=== PATIENT | male | born 1965 | race Caucasian/White ===

== ENCOUNTER 2021-09-20 19:47 | Inpatient (IN) | payer MEDICARE, SELFPAY ==
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
[2021-09-20 19:55] VITALS: BP 140/90; BP 143/98; PULSE 110; PULSE 113; RESP 18; TEMP 37.4; O2SAT 96; O2SAT 98; BMI 28.3
--- NOTE | 2021-09-20 20:11 | PC.NURSE ---
Pt changed over with security present, belongings list on chart and belongings placed in locker #7
[2021-09-20 20:37] LABS: MANUAL DIFF FLAG NO
[2021-09-20 20:41] LABS: Basophils Absolute Auto 0.1 X10*3/uL (0.0-0.2); Basophils Percent Auto 0.8 % (0-2); Eosinophils Absolute Auto 0.3 X10*3/uL (0.0-0.4); Eosinophils Percent Auto 2.9 % (0-4); Imm Gran Abs Auto 0.02 X10*3/uL (0.00-0.03); Imm Gran Pct Auto 0.2 % (0.0-0.4); Lymphocytes Absolute Auto 2.3 X10*3/uL (1.2-4.9); Lymphocytes Percent Auto 22.8 % (20-40); Mean Corpuscular HGB Conc 34.9 g/dl (31.0-36.0); Mean Corpuscular Hemoglobin 31.8 pg (27.0-33.0); Mean Corpuscular Volume 91.3 fL (80.0-98.0); Mean Platelet Volume 10.4 fL (9.4-12.4); Monocytes Absolute Auto 0.7 X10*3/uL (0.1-1.2); Monocytes Percent Auto 6.7 % (2-11); Neutrophils Absolute Auto 6.7 x10*3/uL (2.0-8.3); Neutrophils Percent Auto 66.6 % (45-73); Platelet Count 317 X10*3/uL (160-400); Red Blood Count 4.71 X10*6/uL (4.60-5.80); Red Cell Distribution Width 13.4 % (11.0-16.0); White Blood Count 10.1 X10*3/uL (4.8-10.8)
[2021-09-20 21:03] LABS: COVID-19 Test Negative (Negative)
[2021-09-20 21:05] LABS: Ethanol < 10 mg/dL
[2021-09-20 21:08] LABS: Alanine Aminotransferase 35 U/L (0-40); Albumin Level 4.6 g/dL (3.5-5.0); Alkaline Phosphatase 47 U/L (39-117); Anion Gap 15 (12-20); Aspartate Amino Transferase 34 U/L (5-37); Bilirubin Total 0.4 mg/dL (0.0-1.0); Blood Urea Nitrogen 17 mg/dL (9-16); Calcium 9.4 mg/dL (8.4-10.2); Carbon Dioxide 25 mmol/L (22-29); Chloride 104 mmol/L (96-108); Creatinine Clr Calc Pharmacy 103.1; Estimated Glomerular Filt Rate > 60; Glucose Random 141 mg/dL (60-115); Potassium 4.7 mmol/L (3.3-5.1); Sodium 139 mmol/L (135-145); Total Protein 7.3 g/dL (6.5-8.0)
[2021-09-20 21:56] LABS: Amphetamine Screen Urine Not Detected (Not Detect); Barbiturates, Urine Not Detected (Not Detect); Benzodiazepines Screen Urine Not Detected (Not Detect); Cannabinoid Screen Urine Not Detected (Not Detect); Cocaine Screen Urine Not Detected (Not Detect); Fentanyl, urine Not Detected (Not Detect); Opiate Screen Urine Not Detected (Not Detect); Phencyclidine Screen Urine Not Detected (Not Detect)
[2021-09-20 23:19] VITALS: BP 149/91; PULSE 106; TEMP 36.9; O2SAT 96
[2021-09-21] MEDS: OLANZapine 10 MG TABLET 20 MG PO ×2 (00:45→21:58)
--- NOTE | 2021-09-21 06:51 | PC.NURSE ---
Patient remained awake most part of the shift, in and out of room multiple times for pen and paper, compliant with HS PO medication, requested Haldol in the morning but changed his mind later and refused Haldol 5 mg, patient was assessed by João, disposition section 12 inpatient bed search, behavior appropriate, speech pressured, VSS, will continue to monitor.
--- NOTE | 2021-09-22 | ECG_ITS ---
Test Reason : MEDICAL CLEARANCE Blood Pressure : / mmHG Vent. Rate : 073 BPM Atrial Rate : 073 BPM P-R Int : 156 ms QRS Dur : 096 ms QT Int : 410 ms P-R-T Axes : 063 004 030 degrees QTc Int : 451 ms Normal sinus rhythm Normal ECG When compared with ECG of 06-MAY-2009 06:26, Nonspecific T wave abnormality has replaced inverted T waves in Inferior leads Referred By: Elma Lopez Electronically Signed By:AKOSUA MOROCHO MD
[2021-09-22 06:20] VITALS: BP 141/90; PULSE 95; RESP 16; TEMP 37.2; O2SAT 97
--- NOTE | 2021-09-22 07:20 | PC.NURSE ---
Patient slept through the night, no distress observed/reported, behavior non concerning, medication compliant, disposition per care team is section 12 inpatient bed search, will continue to monitor.
--- NOTE | 2021-09-22 09:25 | PC.NURSE ---
Pt is awake, alert, no complaints at this time, some pacing at times, easily redirectable.
[2021-09-22 14:29] VITALS: BP 144/86; PULSE 93; RESP 20; TEMP 37.4; O2SAT 96
[2021-09-22] MEDS: OLANZapine 10 MG TABLET 20 MG PO (21:05)
[2021-09-23 00:05] VITALS: BP 129/83; PULSE 89; RESP 17; TEMP 37.1; O2SAT 96
--- NOTE | 2021-09-23 07:24 | PC.NURSE ---
Pt sitting up to desk eating breakfast at this time, NAD, resp reg and even, skin wd, calm and cooperative.
[2021-09-23 10:30] LABS: COVID-19 Test Negative (Negative); IDNOW Serial# 55D5AD1C
[2021-09-23 15:05] VITALS: BP 130/85; PULSE 93; RESP 15; TEMP 37.5; O2SAT 95
[2021-09-23 19:01] VITALS: BMI 28.3
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
[2021-09-23] MEDS: OLANZapine 10 MG TABLET 20 MG PO (22:00)
[2021-09-23 22:02] VITALS: BP 137/84; PULSE 94; TEMP 37; O2SAT 96
[2021-09-24 08:49] VITALS: BP 149/85; PULSE 96; RESP 18; TEMP 36.6; O2SAT 95
[2021-09-24 09:02] LABS: Estimated Average Glucose 88 mg/dL; Hemoglobin A1c % 4.7 %
[2021-09-24 09:18] LABS: Cholesterol 167 mg/dL; HDL Cholesterol 48 mg/dL; LDL Cholesterol Calculated 93 mg/dl; Magnesium 2.3 mg/dL (1.6-2.6); Triglycerides 130 mg/dL
[2021-09-24 09:39] LABS: Free T4 (Free Thyroxine) 1.23 ng/dL (0.71-1.85); Thyroid Stimulating Hormone 1.64 uIU/mL (0.32-4.0)
[2021-09-24 10:03] LABS: Folate 18.5 ng/mL (> or = 4.0); Vitamin B12 839 pg/mL (200-900)
[2021-09-24 21:14] VITALS: BP 131/77; PULSE 86; TEMP 36.7; O2SAT 95
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
[2021-09-24] MEDS: OLANZapine 10 MG TABLET 20 MG PO (22:04)
[2021-09-25 08:43] VITALS: BP 140/80; PULSE 97; RESP 18; TEMP 36.6; O2SAT 95
[2021-09-25 13:58] VITALS: BMI 27.7
[2021-09-25 20:14] VITALS: BP 186/98; PULSE 102; RESP 17; TEMP 36.7; O2SAT 99
[2021-09-26 08:28] VITALS: BP 160/84; PULSE 104; RESP 17; TEMP 36.8; O2SAT 95
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
[2021-09-26 20:29] VITALS: BP 176/89; PULSE 110; TEMP 36.6; O2SAT 97
[2021-09-27 09:16] VITALS: BP 147/77; PULSE 84; RESP 18; TEMP 36.7; O2SAT 95
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
[2021-09-27 21:01] VITALS: RESP 16
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
--- NOTE | 2021-09-28 16:30 | PC.NURSE ---
Patient requesting discharge. Submitted 3 day note.
--- NOTE | 2021-09-28 16:30 | PC.NURSE ---
Patient changed clothes following episodes of incontinence. Refused to shower not for 3 days . Refused to put clothes in the washer stating they were not his. You should know where they are you can see the thoughts .
[2021-09-29 10:35] VITALS: RESP 16
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
[2021-09-29 22:02] VITALS: RESP 16
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
[2021-10-01 20:37] VITALS: RESP 16
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
[2021-10-02 20:49] VITALS: RESP 14
--- NOTE | 2021-10-03 09:54 | PC.NURSE ---
Patient approached this RN in the hallway and stated if any man or woman tries to take my blood pressure again I have the right to murder to them . Patient was redirected by this RN.
--- NOTE | 2021-10-03 10:10 | PC.NURSE ---
Per data analyst report writer, Saroj, he presented to patients room and introduced himself to the patient. Patient proceeded to arise from bed and approach Saroj. Saroj reported that patient came to him within 2 feet face to face. Patient then began yelling Get the fuck out of my room and if you don't I am going to kill you. I don't want my fucking room cleaned. You can leave . Saroj exited patients room at this time and alerted staff to the confrontation.
[2021-10-03 10:15] VITALS: RESP 17
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
[2021-10-04 17:08] VITALS: RESP 24
--- NOTE | 2021-10-04 18:02 | PC.NURSE ---
At dinner, patient brought lunch from his room and ate it in the dining room. Continues to decline to speak w/ staff.
[2021-10-05 08:45] VITALS: BP 158/82; PULSE 133; RESP 24; TEMP 35.9; O2SAT 97
[2021-10-05] MEDS: OLANZapine 10 MG TABLET 20 MG PO (08:53)
--- NOTE | 2021-10-05 09:26 | PC.NURSE ---
Late entry: 0845: Patient aloowed vital signs to be obtained. Evening medications may be given per Dr. Cheung- patient accepted medications.
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
[2021-10-05 11:32] VITALS: PULSE 122; RESP 20; O2SAT 97
[2021-10-05] MEDS: OLANZapine 5 MG TABLET PO (11:50)
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
[2021-10-06 10:25] VITALS: RESP 22
[2021-10-06] MEDS: OLANZapine 10 MG TABLET 20 MG PO (10:48)
[2021-10-06 10:56] VITALS: BP 156/89; PULSE 109; RESP 20; TEMP 36.6; O2SAT 99
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
--- NOTE | 2021-10-06 13:06 | PC.NURSE ---
Patient awake in the AM, allowed vital signs to be taken, responding to questions appropriately, able to state location, year, oriented to person, pleasant- appears to have some thought blocking still. Patient given HS Zyprexa (reviewed w/ and given permission to give early).
[2021-10-06 21:21] VITALS: BP 129/75; PULSE 114; TEMP 36.8; O2SAT 96
[2021-10-07 06:00] VITALS: BP 133/77; PULSE 83; RESP 20; TEMP 36.6; O2SAT 98
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
[2021-10-07 18:00] VITALS: BP 130/82; PULSE 91; RESP 20; TEMP 36.6; O2SAT 96
[2021-10-07] MEDS: OLANZapine ODT 10 MG TAB.RAPDIS 20 MG TRANSLINGU (18:22)
[2021-10-08] MEDS: OLANZapine ODT 10 MG TAB.RAPDIS 20 MG TRANSLINGU (08:53)
[2021-10-08 09:06] VITALS: BP 129/76; PULSE 82; RESP 18; TEMP 36.6; O2SAT 97
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
[2021-10-09 06:00] VITALS: BP 121/87; PULSE 110; RESP 16; TEMP 36.8; O2SAT 99
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
[2021-10-09 20:40] VITALS: BP 130/60; PULSE 80; RESP 18; TEMP 36.6; O2SAT 96
[2021-10-09] MEDS: OLANZapine ODT 10 MG TAB.RAPDIS 20 MG TRANSLINGU (20:45)
[2021-10-10 09:05] VITALS: BP 133/77; PULSE 72; RESP 20; TEMP 36.4; O2SAT 98
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
[2021-10-10] MEDS: OLANZapine ODT 10 MG TAB.RAPDIS 20 MG TRANSLINGU (20:43)
[2021-10-10 20:44] VITALS: RESP 14
[2021-10-11 08:30] VITALS: BP 126/68; PULSE 68; RESP 18; TEMP 36.6; O2SAT 97
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
[2021-10-11 20:47] VITALS: BP 120/73; PULSE 87; TEMP 37.1; O2SAT 95
[2021-10-11] MEDS: OLANZapine ODT 10 MG TAB.RAPDIS 20 MG TRANSLINGU (20:48)
[2021-10-11] MEDS: OLANZapine ODT 10 MG TAB.RAPDIS 5 MG TRANSLINGU (23:15)
[2021-10-11] MEDS: traZODone HCL 50 MG TABLET PO (23:15)
[2021-10-12 08:56] VITALS: BP 114/76; PULSE 97; RESP 18; TEMP 36.4; O2SAT 98
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
[2021-10-12 18:00] VITALS: BP 134/80; PULSE 76; RESP 18; TEMP 36.6; O2SAT 98
[2021-10-12] MEDS: OLANZapine ODT 10 MG TAB.RAPDIS 20 MG TRANSLINGU (22:03)
[2021-10-13 08:49] VITALS: RESP 18
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
[2021-10-13] MEDS: OLANZapine ODT 10 MG TAB.RAPDIS 5 MG TRANSLINGU (16:14)
--- NOTE | 2021-10-13 16:17 | PC.NURSE ---
Patient increasingly intrusive, taking items from other patients, dropping pants in public. Other patients increasingly upset at patient's behavior. Patient placed on constant observation, Dr. Fernandez notified- patient given PRN for agitation.
[2021-10-13 18:00] VITALS: BP 122/78; PULSE 78; RESP 18; TEMP 36.7; O2SAT 97
[2021-10-13] MEDS: traZODone HCL 50 MG TABLET PO (22:01)
[2021-10-13] MEDS: OLANZapine ODT 10 MG TAB.RAPDIS 20 MG TRANSLINGU (22:01)
--- NOTE | 2021-10-14 08:26 | ECG_ITS ---
Test Reason : TACHY Blood Pressure : / mmHG Vent. Rate : 077 BPM Atrial Rate : 077 BPM P-R Int : 144 ms QRS Dur : 098 ms QT Int : 358 ms P-R-T Axes : 057 013 037 degrees QTc Int : 405 ms Normal sinus rhythm Normal EKG When compared with ECG of 22-SEP-2021 15:38, No significant change was found Referred By: Eliu Fernandez Electronically Signed By:ALBAN HEBERT
[2021-10-14 09:16] VITALS: BP 104/75; PULSE 145; RESP 20; TEMP 36.1; O2SAT 99
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
[2021-10-14] MEDS: Lithium Carbonate ER 450 MG TABLET.ER PO (14:25)
[2021-10-14 20:50] VITALS: BP 122/75; PULSE 89; RESP 18; TEMP 36.7; O2SAT 97
[2021-10-14] MEDS: OLANZapine ODT 10 MG TAB.RAPDIS 20 MG TRANSLINGU (21:04)
[2021-10-14] MEDS: Lithium Carbonate ER 300 MG TABLET.ER 600 MG PO (21:04)
[2021-10-15] MEDS: Lithium Carbonate ER 300 MG TABLET.ER 600 MG PO ×2 (08:42→21:14)
[2021-10-15 08:59] VITALS: BP 125/84; PULSE 88; RESP 18; TEMP 36.6; O2SAT 97
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
[2021-10-15] MEDS: OLANZapine ODT 10 MG TAB.RAPDIS 20 MG TRANSLINGU (21:14)
[2021-10-15 21:17] VITALS: BP 133/77; PULSE 84; TEMP 36.6; O2SAT 97
[2021-10-16 06:00] VITALS: BP 112/75; PULSE 87; RESP 20; TEMP 36.4; O2SAT 97
[2021-10-16] MEDS: Lithium Carbonate ER 300 MG TABLET.ER 600 MG PO ×2 (08:52→20:51)
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
[2021-10-16 14:52] VITALS: BMI 26.6
[2021-10-16 20:46] VITALS: BP 121/78; PULSE 84; TEMP 36.9; O2SAT 97
[2021-10-16] MEDS: OLANZapine ODT 10 MG TAB.RAPDIS 30 MG TRANSLINGU (20:51)
[2021-10-16] MEDS: hydrOXYzine HCL 25 MG TABLET PO (22:06)
[2021-10-16] MEDS: traZODone HCL 50 MG TABLET PO (22:06)
[2021-10-17 08:21] VITALS: BP 129/75; PULSE 83; RESP 18; TEMP 36.7; O2SAT 98
[2021-10-17] MEDS: Lithium Carbonate ER 300 MG TABLET.ER 600 MG PO ×2 (08:59→21:41)
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
[2021-10-17 20:30] VITALS: BP 132/77; PULSE 87; RESP 18; TEMP 36.8; O2SAT 96
[2021-10-17] MEDS: traZODone HCL 50 MG TABLET PO (21:41)
[2021-10-17] MEDS: OLANZapine ODT 10 MG TAB.RAPDIS 5 MG TRANSLINGU (21:42)
[2021-10-17] MEDS: OLANZapine ODT 10 MG TAB.RAPDIS 30 MG TRANSLINGU (21:42)
[2021-10-18 08:30] VITALS: BP 125/65; PULSE 87; RESP 18; TEMP 36.7; O2SAT 96
[2021-10-18] MEDS: Lithium Carbonate ER 300 MG TABLET.ER 600 MG PO ×2 (09:08→21:49)
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
[2021-10-18 20:20] VITALS: BP 130/86; PULSE 75; RESP 18; TEMP 36.6; O2SAT 98
[2021-10-18] MEDS: OLANZapine ODT 10 MG TAB.RAPDIS 30 MG TRANSLINGU (21:47)
[2021-10-18] MEDS: OLANZapine ODT 10 MG TAB.RAPDIS 5 MG TRANSLINGU (21:47)
[2021-10-18] MEDS: traZODone HCL 50 MG TABLET PO (21:48)
[2021-10-19] MEDS: Lithium Carbonate ER 300 MG TABLET.ER 600 MG PO ×2 (10:18→21:39)
[2021-10-19] MEDS: OLANZapine ODT 10 MG TAB.RAPDIS 5 MG TRANSLINGU (10:19)
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
[2021-10-19 18:00] VITALS: BP 122/68; PULSE 78; RESP 18; TEMP 36.6; O2SAT 96
[2021-10-19] MEDS: traZODone HCL 50 MG TABLET PO (21:39)
[2021-10-19] MEDS: OLANZapine ODT 10 MG TAB.RAPDIS 30 MG TRANSLINGU (21:39)
[2021-10-20 07:53] VITALS: BP 120/76; PULSE 83; RESP 18; TEMP 36.6; O2SAT 96
[2021-10-20] MEDS: Lithium Carbonate ER 300 MG TABLET.ER 600 MG PO ×2 (08:10→21:13)
[2021-10-20 08:49] LABS: MANUAL DIFF FLAG NO
[2021-10-20 09:16] LABS: Lithium 0.87 mmol/L (0.60-1.20)
[2021-10-20 09:21] LABS: Basophils Absolute Auto 0.1 X10*3/uL (0.0-0.2); Basophils Percent Auto 1.1 % (0-2); Eosinophils Absolute Auto 0.6 X10*3/uL (0.0-0.4); Eosinophils Percent Auto 8.1 % (0-4); Hematocrit 44.6 % (42.0-52.0); Hemoglobin 15.5 g/dl (14.0-18.0); Imm Gran Abs Auto 0.02 X10*3/uL (0.00-0.03); Imm Gran Pct Auto 0.3 % (0.0-0.4); Lymphocytes Absolute Auto 2.1 X10*3/uL (1.2-4.9); Lymphocytes Percent Auto 27.9 % (20-40); Mean Corpuscular HGB Conc 34.8 g/dl (31.0-36.0); Mean Corpuscular Hemoglobin 31.4 pg (27.0-33.0); Mean Corpuscular Volume 90.3 fL (80.0-98.0); Mean Platelet Volume 10.9 fL (9.4-12.4); Monocytes Absolute Auto 0.6 X10*3/uL (0.1-1.2); Monocytes Percent Auto 7.4 % (2-11); Neutrophils Absolute Auto 4.2 x10*3/uL (2.0-8.3); Neutrophils Percent Auto 55.2 % (45-73); Platelet Count 302 X10*3/uL (160-400); Red Blood Count 4.94 X10*6/uL (4.60-5.80); White Blood Count 7.5 X10*3/uL (4.8-10.8)
[2021-10-20 09:27] LABS: Anion Gap 13 (12-20); Blood Urea Nitrogen 11 mg/dL (9-16); Calcium 9.8 mg/dL (8.4-10.2); Carbon Dioxide 23 mmol/L (22-29); Chloride 105 mmol/L (96-108); Creatinine Clr Calc Pharmacy 103.4; Estimated Glomerular Filt Rate > 60; Glucose Random 84 mg/dL (60-115); Potassium 3.9 mmol/L (3.3-5.1); Sodium 137 mmol/L (135-145)
[2021-10-20 09:48] LABS: TSH reflex Free T4 1.13 uIU/mL (0.32-4.0)
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
[2021-10-20 18:00] VITALS: BP 138/86; PULSE 82; RESP 18; TEMP 36.6; O2SAT 96
[2021-10-20] MEDS: OLANZapine ODT 10 MG TAB.RAPDIS 30 MG TRANSLINGU (21:14)
[2021-10-21] MEDS: Lithium Carbonate ER 300 MG TABLET.ER 600 MG PO ×2 (10:03→20:58)
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
[2021-10-21 20:55] VITALS: BP 134/88; PULSE 70; RESP 16; TEMP 36.6; O2SAT 98
[2021-10-21] MEDS: OLANZapine ODT 10 MG TAB.RAPDIS 30 MG TRANSLINGU (20:58)
[2021-10-21] MEDS: OLANZapine ODT 10 MG TAB.RAPDIS 5 MG TRANSLINGU (20:58)
[2021-10-21] MEDS: traZODone HCL 50 MG TABLET PO (20:58)
[2021-10-22 08:15] VITALS: BP 127/85; PULSE 76; RESP 16; TEMP 36.7; O2SAT 95
[2021-10-22] MEDS: Lithium Carbonate ER 300 MG TABLET.ER 600 MG PO ×2 (09:06→20:43)
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
[2021-10-22 20:38] VITALS: BP 120/72; PULSE 81; RESP 16; TEMP 36.8; O2SAT 98
[2021-10-22] MEDS: traZODone HCL 50 MG TABLET PO (20:43)
[2021-10-22] MEDS: OLANZapine ODT 10 MG TAB.RAPDIS 30 MG TRANSLINGU (20:43)
[2021-10-22] MEDS: OLANZapine ODT 10 MG TAB.RAPDIS 5 MG TRANSLINGU (20:43)
[2021-10-23 06:00] VITALS: BP 135/73; PULSE 76; RESP 16; TEMP 36.7; O2SAT 96
[2021-10-23 07:00] VITALS: BMI 25.9
[2021-10-23] MEDS: Lithium Carbonate ER 300 MG TABLET.ER 600 MG PO ×2 (08:23→22:05)
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
[2021-10-23] MEDS: OLANZapine ODT 10 MG TAB.RAPDIS 30 MG TRANSLINGU (22:04)
[2021-10-23] MEDS: OLANZapine ODT 10 MG TAB.RAPDIS 5 MG TRANSLINGU (22:04)
[2021-10-23] MEDS: traZODone HCL 50 MG TABLET PO (22:05)
[2021-10-23 22:07] VITALS: BP 126/82; PULSE 81; RESP 18; TEMP 36.7; O2SAT 97
[2021-10-24 08:22] VITALS: BP 137/78; PULSE 72; RESP 17; TEMP 36.7; O2SAT 97
[2021-10-24] MEDS: Lithium Carbonate ER 300 MG TABLET.ER 600 MG PO ×2 (08:40→22:07)
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
[2021-10-24 20:10] VITALS: BP 118/72; PULSE 80; RESP 16; TEMP 36.9; O2SAT 96
[2021-10-24] MEDS: OLANZapine ODT 10 MG TAB.RAPDIS 30 MG TRANSLINGU (22:07)
[2021-10-24] MEDS: traZODone HCL 50 MG TABLET PO (22:08)
[2021-10-24] MEDS: OLANZapine ODT 10 MG TAB.RAPDIS 5 MG TRANSLINGU (22:10)
[2021-10-25 08:00] VITALS: BP 124/73; PULSE 82; RESP 18; TEMP 36.6; O2SAT 98
[2021-10-25] MEDS: Lithium Carbonate ER 300 MG TABLET.ER 600 MG PO ×2 (08:41→22:07)
[2021-10-25 18:00] VITALS: BP 132/70; PULSE 63; RESP 14; TEMP 36.6
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
[2021-10-25] MEDS: OLANZapine ODT 10 MG TAB.RAPDIS 30 MG TRANSLINGU (22:07)
[2021-10-26] MEDS: Lithium Carbonate ER 300 MG TABLET.ER 600 MG PO ×2 (08:54→22:05)
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
[2021-10-26 20:33] VITALS: BP 137/78; PULSE 74; RESP 20; TEMP 36.6; O2SAT 96
[2021-10-26] MEDS: OLANZapine ODT 10 MG TAB.RAPDIS 30 MG TRANSLINGU (22:05)
[2021-10-27 08:40] VITALS: BP 142/67; PULSE 76; RESP 18; TEMP 37.2; O2SAT 96
[2021-10-27] MEDS: Lithium Carbonate ER 300 MG TABLET.ER 600 MG PO ×2 (08:41→21:53)
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
[2021-10-27 21:49] VITALS: BP 117/73; PULSE 91; RESP 18; TEMP 36.4; O2SAT 98
[2021-10-27] MEDS: OLANZapine ODT 10 MG TAB.RAPDIS 30 MG TRANSLINGU (21:53)
[2021-10-28 08:40] VITALS: BP 113/69; PULSE 75; RESP 17; TEMP 36.6; O2SAT 98
[2021-10-28] MEDS: Lithium Carbonate ER 300 MG TABLET.ER 600 MG PO ×2 (08:41→22:06)
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
[2021-10-28 21:00] VITALS: BP 119/67; PULSE 64; RESP 18; TEMP 36.1; O2SAT 96
[2021-10-28] MEDS: OLANZapine ODT 10 MG TAB.RAPDIS 30 MG TRANSLINGU (22:06)
[2021-10-28] MEDS: OLANZapine ODT 10 MG TAB.RAPDIS 5 MG TRANSLINGU (22:06)
[2021-10-29] MEDS: Lithium Carbonate ER 300 MG TABLET.ER 600 MG PO ×2 (08:05→22:00)
[2021-10-29 08:06] VITALS: BP 113/71; PULSE 66; RESP 20; TEMP 36.6; O2SAT 99
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
[2021-10-29 21:44] VITALS: BP 130/75; PULSE 77; TEMP 36.7; O2SAT 98
[2021-10-29] MEDS: OLANZapine ODT 10 MG TAB.RAPDIS 30 MG TRANSLINGU (22:00)
[2021-10-30 08:50] VITALS: BP 114/68; PULSE 76; RESP 18; TEMP 36.7; O2SAT 97
[2021-10-30] MEDS: Lithium Carbonate ER 300 MG TABLET.ER 600 MG PO ×2 (08:54→22:05)
[2021-10-30 10:00] VITALS: BMI 30.9
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
[2021-10-30 18:00] VITALS: BP 123/75; PULSE 76; RESP 18; TEMP 36.7; O2SAT 96
[2021-10-30] MEDS: OLANZapine ODT 10 MG TAB.RAPDIS 30 MG TRANSLINGU (22:04)
[2021-10-31 06:00] VITALS: BP 113/73; PULSE 80; TEMP 36.4; O2SAT 98
[2021-10-31] MEDS: Lithium Carbonate ER 300 MG TABLET.ER 600 MG PO ×2 (09:12→21:59)
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
[2021-10-31] MEDS: OLANZapine ODT 10 MG TAB.RAPDIS 30 MG TRANSLINGU (21:59)
[2021-10-31] MEDS: OLANZapine ODT 10 MG TAB.RAPDIS 5 MG TRANSLINGU (21:59)
[2021-10-31 22:05] VITALS: BP 125/78; PULSE 80; RESP 18; TEMP 36.6; O2SAT 98
[2021-11-01] MEDS: Lithium Carbonate ER 300 MG TABLET.ER 600 MG PO ×2 (08:11→21:56)
[2021-11-01 08:26] VITALS: BP 119/77; PULSE 81; RESP 18; TEMP 36.6; O2SAT 96
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
[2021-11-01 19:53] VITALS: BP 113/75; PULSE 77; RESP 18; TEMP 36.7; O2SAT 97
[2021-11-01] MEDS: OLANZapine ODT 10 MG TAB.RAPDIS 5 MG TRANSLINGU (21:55)
[2021-11-01] MEDS: OLANZapine ODT 10 MG TAB.RAPDIS 30 MG TRANSLINGU (21:56)
[2021-11-02] MEDS: Lithium Carbonate ER 300 MG TABLET.ER 600 MG PO ×2 (09:04→22:17)
[2021-11-02 09:21] VITALS: BP 114/73; PULSE 76; RESP 18; TEMP 36.3; O2SAT 97
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
[2021-11-02 18:00] VITALS: BP 108/68; PULSE 78; RESP 18; TEMP 36.6; O2SAT 96
[2021-11-02] MEDS: OLANZapine ODT 10 MG TAB.RAPDIS 30 MG TRANSLINGU (22:17)
[2021-11-03 08:00] VITALS: BP 111/67; PULSE 77; RESP 16; TEMP 36.6; O2SAT 98
[2021-11-03] MEDS: Lithium Carbonate ER 300 MG TABLET.ER 600 MG PO ×2 (08:16→22:07)
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
[2021-11-03 20:05] VITALS: BP 119/71; PULSE 73; RESP 18; TEMP 36.8; O2SAT 96
[2021-11-03] MEDS: OLANZapine ODT 10 MG TAB.RAPDIS 30 MG TRANSLINGU (22:07)
[2021-11-04] MEDS: Lithium Carbonate ER 300 MG TABLET.ER 600 MG PO ×2 (08:38→22:07)
[2021-11-04 08:43] VITALS: BP 120/77; PULSE 68; TEMP 36.4; O2SAT 98
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
[2021-11-04 22:00] VITALS: BP 123/76; PULSE 80; RESP 16; TEMP 36.7; O2SAT 97
[2021-11-04] MEDS: OLANZapine ODT 10 MG TAB.RAPDIS 30 MG TRANSLINGU (22:08)
[2021-11-05] MEDS: Lithium Carbonate ER 300 MG TABLET.ER 600 MG PO ×2 (08:59→21:56)
[2021-11-05 09:02] VITALS: BP 105/66; PULSE 74; RESP 17; TEMP 36.6; O2SAT 97
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
[2021-11-05 20:40] VITALS: BP 123/70; PULSE 83; RESP 16; TEMP 36.8; O2SAT 96
[2021-11-05] MEDS: OLANZapine ODT 10 MG TAB.RAPDIS 30 MG TRANSLINGU (21:56)
[2021-11-06 08:43] VITALS: BP 116/69; PULSE 75; RESP 17; TEMP 36.6; O2SAT 97
[2021-11-06 08:49] LABS: MANUAL DIFF FLAG NO
[2021-11-06 08:52] LABS: Basophils Absolute Auto 0.1 X10*3/uL (0.0-0.2); Basophils Percent Auto 1.1 % (0-2); Eosinophils Absolute Auto 0.7 X10*3/uL (0.0-0.4); Eosinophils Percent Auto 10.8 % (0-4); Hematocrit 39.1 % (42.0-52.0); Hemoglobin 13.6 g/dl (14.0-18.0); Imm Gran Abs Auto 0.01 X10*3/uL (0.00-0.03); Imm Gran Pct Auto 0.2 % (0.0-0.4); Lymphocytes Absolute Auto 1.7 X10*3/uL (1.2-4.9); Lymphocytes Percent Auto 26.4 % (20-40); Mean Corpuscular HGB Conc 34.8 g/dl (31.0-36.0); Mean Corpuscular Hemoglobin 31.4 pg (27.0-33.0); Mean Corpuscular Volume 90.3 fL (80.0-98.0); Mean Platelet Volume 10.3 fL (9.4-12.4); Monocytes Absolute Auto 0.6 X10*3/uL (0.1-1.2); Monocytes Percent Auto 9.2 % (2-11); Neutrophils Absolute Auto 3.3 x10*3/uL (2.0-8.3); Neutrophils Percent Auto 52.3 % (45-73); Platelet Count 314 X10*3/uL (160-400); Red Blood Count 4.33 X10*6/uL (4.60-5.80); Red Cell Distribution Width 13.4 % (11.0-16.0); White Blood Count 6.3 X10*3/uL (4.8-10.8)
[2021-11-06 09:09] LABS: Lithium 0.83 mmol/L (0.60-1.20)
[2021-11-06] MEDS: Lithium Carbonate ER 300 MG TABLET.ER 600 MG PO ×2 (09:13→21:54)
[2021-11-06 09:18] LABS: Anion Gap 8 (12-20); Blood Urea Nitrogen 15 mg/dL (9-16); Carbon Dioxide 26 mmol/L (22-29); Chloride 107 mmol/L (96-108); Creatinine Clr Calc Pharmacy 127.3; Estimated Glomerular Filt Rate > 60; Glucose Random 86 mg/dL (60-115); Potassium 4.1 mmol/L (3.3-5.1); Sodium 137 mmol/L (135-145)
[2021-11-06 11:51] VITALS: BMI 26.3
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
[2021-11-06 20:59] VITALS: BP 133/78; PULSE 86; RESP 17; TEMP 36.6; O2SAT 98
[2021-11-06] MEDS: OLANZapine ODT 10 MG TAB.RAPDIS 30 MG TRANSLINGU (21:54)
[2021-11-07] MEDS: Lithium Carbonate ER 300 MG TABLET.ER 600 MG PO ×2 (09:08→21:55)
[2021-11-07 09:29] VITALS: BP 104/64; PULSE 67; RESP 18; TEMP 36.1; O2SAT 96
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
[2021-11-07 20:25] VITALS: BP 113/58; PULSE 70; RESP 18; TEMP 37.3; O2SAT 96
[2021-11-07] MEDS: OLANZapine ODT 10 MG TAB.RAPDIS 30 MG TRANSLINGU (21:55)
[2021-11-08] MEDS: Lithium Carbonate ER 300 MG TABLET.ER 600 MG PO ×2 (08:50→22:03)
[2021-11-08 09:01] VITALS: BP 127/83; PULSE 76; RESP 18; TEMP 36.4; O2SAT 98
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
[2021-11-08 20:00] VITALS: BP 122/77; PULSE 74; RESP 18; TEMP 36.7; O2SAT 94
[2021-11-08] MEDS: OLANZapine ODT 10 MG TAB.RAPDIS 30 MG TRANSLINGU (22:03)
[2021-11-09 06:00] VITALS: BP 133/75; PULSE 82; RESP 18; TEMP 36.6; O2SAT 97
[2021-11-09] MEDS: Lithium Carbonate ER 300 MG TABLET.ER 600 MG PO ×2 (09:37→21:53)
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
[2021-11-09 20:23] VITALS: BP 125/75; PULSE 77; RESP 18; TEMP 36.7; O2SAT 95
[2021-11-09] MEDS: OLANZapine ODT 10 MG TAB.RAPDIS 30 MG TRANSLINGU (21:53)
[2021-11-10] MEDS: Lithium Carbonate ER 300 MG TABLET.ER 600 MG PO ×2 (08:33→21:52)
[2021-11-10 08:50] VITALS: BP 119/78; PULSE 74; RESP 20; TEMP 36.7; O2SAT 97
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
[2021-11-10 18:00] VITALS: BP 133/71; PULSE 95; RESP 18; TEMP 37.1; O2SAT 96
[2021-11-10] MEDS: OLANZapine ODT 10 MG TAB.RAPDIS 30 MG TRANSLINGU (21:52)
[2021-11-11] MEDS: Lithium Carbonate ER 300 MG TABLET.ER 600 MG PO ×2 (08:39→22:00)
[2021-11-11 08:49] VITALS: BP 147/82; PULSE 82; RESP 20; TEMP 36.6; O2SAT 99
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
[2021-11-11 19:55] VITALS: BP 115/91; PULSE 83; RESP 18; TEMP 36.8; O2SAT 96
[2021-11-11] MEDS: OLANZapine ODT 10 MG TAB.RAPDIS 30 MG TRANSLINGU (22:01)
[2021-11-12 08:17] VITALS: BP 112/74; PULSE 73; RESP 17; TEMP 37.1; O2SAT 98
[2021-11-12] MEDS: Lithium Carbonate ER 300 MG TABLET.ER 600 MG PO ×2 (08:18→22:04)
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
[2021-11-12 22:00] VITALS: BP 122/74; PULSE 66; TEMP 37.1; O2SAT 97
[2021-11-12] MEDS: OLANZapine ODT 10 MG TAB.RAPDIS 30 MG TRANSLINGU (22:04)
[2021-11-13 08:09] VITALS: BP 118/68; PULSE 76; RESP 16; TEMP 36.8; O2SAT 97
[2021-11-13] MEDS: Lithium Carbonate ER 300 MG TABLET.ER 600 MG PO ×2 (08:25→22:02)
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
[2021-11-13 21:42] VITALS: BP 122/70; PULSE 70; TEMP 36.7; O2SAT 97
[2021-11-13] MEDS: OLANZapine ODT 10 MG TAB.RAPDIS 30 MG TRANSLINGU (22:03)
[2021-11-14 08:00] VITALS: BP 119/64; PULSE 79; RESP 16; TEMP 36.6; O2SAT 98
[2021-11-14] MEDS: Lithium Carbonate ER 300 MG TABLET.ER 600 MG PO ×2 (08:36→21:24)
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
[2021-11-14 18:00] VITALS: BP 130/76; PULSE 80; RESP 16; TEMP 36.7; O2SAT 96
[2021-11-14] MEDS: OLANZapine ODT 10 MG TAB.RAPDIS 30 MG TRANSLINGU (21:24)
[2021-11-15] MEDS: Lithium Carbonate ER 300 MG TABLET.ER 600 MG PO ×2 (08:19→21:57)
[2021-11-15 08:50] VITALS: BP 114/74; PULSE 79; RESP 20; TEMP 35.8; O2SAT 95
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
[2021-11-15 19:21] VITALS: BP 124/76; PULSE 70; RESP 18; TEMP 36.6; O2SAT 97
[2021-11-15] MEDS: OLANZapine ODT 10 MG TAB.RAPDIS 30 MG TRANSLINGU (21:58)
[2021-11-16] MEDS: Lithium Carbonate ER 300 MG TABLET.ER 600 MG PO ×2 (08:08→21:15)
[2021-11-16 10:07] VITALS: BP 134/79; PULSE 74; RESP 18; TEMP 36.3; O2SAT 99
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
[2021-11-16 18:00] VITALS: BP 128/80; PULSE 72; RESP 18; TEMP 36; O2SAT 99
[2021-11-16] MEDS: OLANZapine ODT 10 MG TAB.RAPDIS 30 MG TRANSLINGU (21:15)
[2021-11-17 08:16] VITALS: BP 112/71; PULSE 83; TEMP 36.6; O2SAT 99
[2021-11-17] MEDS: Lithium Carbonate ER 300 MG TABLET.ER 600 MG PO ×2 (08:39→21:32)
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
[2021-11-17 21:31] VITALS: BP 118/71; PULSE 69; RESP 15; TEMP 36.9; O2SAT 97
[2021-11-17] MEDS: OLANZapine ODT 10 MG TAB.RAPDIS 30 MG TRANSLINGU (21:32)
[2021-11-18 10:04] VITALS: BP 119/63; PULSE 78; RESP 17; TEMP 36.4; O2SAT 97
[2021-11-18] MEDS: Lithium Carbonate ER 300 MG TABLET.ER 600 MG PO ×2 (11:22→20:00)
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
[2021-11-18] MEDS: OLANZapine ODT 10 MG TAB.RAPDIS 30 MG TRANSLINGU (20:00)
[2021-11-18 20:05] VITALS: BP 103/70; PULSE 80
[2021-11-19 08:00] VITALS: BP 104/69; PULSE 73; RESP 18; TEMP 36.2; O2SAT 98
[2021-11-19] MEDS: Lithium Carbonate ER 300 MG TABLET.ER 600 MG PO ×2 (08:58→20:16)
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
[2021-11-19 20:13] VITALS: BP 123/94; PULSE 70; RESP 18; TEMP 36.2; O2SAT 98
[2021-11-19] MEDS: OLANZapine ODT 10 MG TAB.RAPDIS 30 MG TRANSLINGU (20:16)
[2021-11-20] MEDS: Lithium Carbonate ER 300 MG TABLET.ER 600 MG PO ×2 (08:10→20:22)
[2021-11-20 08:30] VITALS: BP 107/58; PULSE 76; RESP 18; TEMP 36.6; O2SAT 97
[2021-11-20 15:23] VITALS: BMI 26.1
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
[2021-11-20 20:17] VITALS: BP 126/77; PULSE 69; RESP 17; TEMP 36.6; O2SAT 99
[2021-11-20] MEDS: OLANZapine ODT 10 MG TAB.RAPDIS 30 MG TRANSLINGU (20:23)
[2021-11-21 08:24] VITALS: BP 114/69; PULSE 69; RESP 16; TEMP 36.7; O2SAT 97
[2021-11-21] MEDS: Lithium Carbonate ER 300 MG TABLET.ER 600 MG PO (08:24)
[2021-11-21 09:04] LABS: MANUAL DIFF FLAG NO
[2021-11-21 09:07] LABS: Basophils Absolute Auto 0.1 X10*3/uL (0.0-0.2); Eosinophils Absolute Auto 0.5 X10*3/uL (0.0-0.4); Eosinophils Percent Auto 6.7 % (0-4); Hematocrit 44.9 % (42.0-52.0); Hemoglobin 15.3 g/dl (14.0-18.0); Imm Gran Abs Auto 0.02 X10*3/uL (0.00-0.03); Imm Gran Pct Auto 0.3 % (0.0-0.4); Lymphocytes Absolute Auto 1.6 X10*3/uL (1.2-4.9); Lymphocytes Percent Auto 22.9 % (20-40); Mean Corpuscular HGB Conc 34.1 g/dl (31.0-36.0); Mean Corpuscular Hemoglobin 31.5 pg (27.0-33.0); Mean Corpuscular Volume 92.6 fL (80.0-98.0); Mean Platelet Volume 10.4 fL (9.4-12.4); Monocytes Absolute Auto 0.6 X10*3/uL (0.1-1.2); Monocytes Percent Auto 8.3 % (2-11); Neutrophils Absolute Auto 4.2 x10*3/uL (2.0-8.3); Neutrophils Percent Auto 60.8 % (45-73); Platelet Count 302 X10*3/uL (160-400); Red Blood Count 4.85 X10*6/uL (4.60-5.80); Red Cell Distribution Width 13.2 % (11.0-16.0); White Blood Count 6.9 X10*3/uL (4.8-10.8)
[2021-11-21 09:19] LABS: Lithium 0.68 mmol/L (0.60-1.20)
[2021-11-21 09:24] LABS: Alanine Aminotransferase 18 U/L (0-40); Albumin Level 4.2 g/dL (3.5-5.0); Alkaline Phosphatase 45 U/L (39-117); Anion Gap 11 (12-20); Aspartate Amino Transferase 15 U/L (5-37); Bilirubin Direct 0.3 mg/dL (0.0-0.5); Bilirubin Total 0.9 mg/dL (0.0-1.0); Blood Urea Nitrogen 13 mg/dL (9-16); Calcium 9.9 mg/dL (8.4-10.2); Carbon Dioxide 26 mmol/L (22-29); Chloride 104 mmol/L (96-108); Creatinine Clr Calc Pharmacy 99.9; Estimated Glomerular Filt Rate > 60; Glucose Random 92 mg/dL (60-115); Potassium 4.2 mmol/L (3.3-5.1); Sodium 137 mmol/L (135-145); Total Protein 6.8 g/dL (6.5-8.0)
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
--- NOTE | 2021-11-21 12:37 | PC.NURSE ---
Patient is A & Ox4. Patient is pleasant and cooperative upon approach. Patient denies SI/HI/AH/VH. Patient reports no anxiety or depression. Patient reports being ready and looking forward to discharge. I am going to see my dog and girlfriend when I get out. Maybe I will buy a lottery ticket too . Patient denies physical complaints.
== END 2021-11-21 14:10 | disposition home or self-care (01) | DRG 885 ==
LOC: HO.ED 09-21 01:34 → HO.PADLT16 09-23 15:50
PROVIDERS: Nurse Practitioner Family; Admitting Provider Registered Nurse; Emergency Provider Emergency Medicine Emergency Medical Services; PCP Hospitalist; Visit Provider Psychiatry & Neurology Psychiatry
DX: F25.0 Schizoaffective disorder, bipolar type (principal); Z20.822 Contact with and (suspected) exposure to COVID-19; Z88.8 Allergy status to other drugs, medicaments and biological substances; Z79.899 Other long term (current) drug therapy
CPT/HCPCS: 36415; 80048; 80053; 80061; 80076; 80178; 80307; 82077; 82607; 82746; 83036; 83735; 84439; 84443; 85025; 87635; 93005; 99285

== ENCOUNTER 2022-05-07 12:49 | Inpatient (IN) | payer OTHER, SELFPAY ==
[2022-05-07 12:53] VITALS: BP 156/84; BP 166/84; PULSE 108; PULSE 97; RESP 18; TEMP 37.3; O2SAT 96; O2SAT 99; BMI 26.7
--- NOTE | 2022-05-07 13:07 | ECG_ITS ---
Test Reason : MED CLEARANCE OVER 50 Blood Pressure : / mmHG Vent. Rate : 088 BPM Atrial Rate : 088 BPM P-R Int : 174 ms QRS Dur : 100 ms QT Int : 380 ms P-R-T Axes : 066 010 035 degrees QTc Int : 459 ms Normal sinus rhythm Normal ECG When compared with ECG of 14-OCT-2021 08:52, No significant changes seen Referred By: Generic ED Physician Electronically Signed By:FILI LOMELI MD
[2022-05-07 13:20] LABS: MANUAL DIFF FLAG NO
[2022-05-07 13:24] LABS: Basophils Absolute Auto 0.1 X10*3/uL (0.0-0.2); Basophils Percent Auto 0.6 % (0-2); Eosinophils Absolute Auto 0.2 X10*3/uL (0.0-0.4); Eosinophils Percent Auto 2.1 % (0-4); Hematocrit 43.5 % (42.0-52.0); Imm Gran Abs Auto 0.03 X10*3/uL (0.00-0.03); Imm Gran Pct Auto 0.3 % (0.0-0.4); Mean Corpuscular HGB Conc 34.5 g/dl (31.0-36.0); Mean Corpuscular Hemoglobin 32.1 pg (27.0-33.0); Mean Corpuscular Volume 93.1 fL (80.0-98.0); Mean Platelet Volume 9.8 fL (9.4-12.4); Monocytes Absolute Auto 0.6 X10*3/uL (0.1-1.2); Neutrophils Absolute Auto 6.6 x10*3/uL (2.0-8.3); Platelet Count 298 X10*3/uL (160-400); Red Blood Count 4.67 X10*6/uL (4.60-5.80); Red Cell Distribution Width 12.3 % (11.0-16.0); White Blood Count 9.5 X10*3/uL (4.8-10.8)
[2022-05-07 13:42] LABS: COVID-19 Test Negative (Negative); IDNOW Serial# 55D5AD1C
[2022-05-07 13:46] LABS: Lithium 0.53 mmol/L (0.60-1.20)
[2022-05-07 13:56] LABS: Acetaminophen LAB < 1 mcg/mL (<30); Alanine Aminotransferase 35 U/L (0-40); Albumin Level 4.5 g/dL (3.5-5.0); Alkaline Phosphatase 50 U/L (39-117); Anion Gap 16 (12-20); Aspartate Amino Transferase 38 U/L (5-37); Bilirubin Direct < 0.2 mg/dL (0.0-0.5); Bilirubin Total 0.3 mg/dL (0.0-1.0); Blood Urea Nitrogen 17 mg/dL (9-16); Calcium 9.1 mg/dL (8.4-10.2); Carbon Dioxide 23 mmol/L (22-29); Chloride 104 mmol/L (96-108); Creatinine Clr Calc Pharmacy 113.6; Estimated Glomerular Filt Rate > 60; Ethanol < 10 mg/dL; Glucose Random 118 mg/dL (60-115); Lipase 58 U/L (8-78); Potassium 4.5 mmol/L (3.3-5.1); Salicylate < 5.0 mg/dL (15-30); Sodium 138 mmol/L (135-145); Total Protein 7.3 g/dL (6.5-8.0)
[2022-05-07 14:01] LABS: Amphetamine Screen Urine Not Detected (Not Detect); Barbiturates, Urine Not Detected (Not Detect); Benzodiazepines Screen Urine Not Detected (Not Detect); Cannabinoid Screen Urine Not Detected (Not Detect); Cocaine Screen Urine Not Detected (Not Detect); Fentanyl, urine Not Detected (Not Detect); Opiate Screen Urine Not Detected (Not Detect); Phencyclidine Screen Urine Not Detected (Not Detect)
[2022-05-07 16:00] VITALS: RESP 18
--- NOTE | 2022-05-07 17:31 | ED_ITS ---
HPI - Psych General Chief Complaint: Psychiatric Symptoms Stated Complaint: crisis eval Time Seen by Provider: 05/07/22 14:09 Source: patient and EMS Mode of arrival: EMS Limitations: altered mental status and other (Psychiatric illness) History of Present Illness HPI Narrative: 56-year-old male with a past medical history of bipolar disorder presents to the emergency department today with paranoid delusions. The patient believes that people are being held for experimentation in an unknown location. Additionally, the patient states that the medications that he has been given cause unknown types of reactions. Additional history is limited secondary to the patient's psychiatric illness HPI, review of systems, and physical exam may be limited secondary to the patient's acute psychiatric illness MD complaint: hallucinations and other (Paranoia) Onset (ago): unknown Duration: constant History of same: Yes Relieving factors: none Exacerbating factors: none Associated psychiatric symptoms: racing thoughts and delusions Related Data Previous Rx's Medication Instructions Recorded lithium carbonate 300 mg 600 mg PO BID 30 days #120 tabs 11/21/21 tablet,extended release olanzapine 10 mg tablet 30 mg PO BEDTIME 30 days #90 tabs 11/21/21 psyllium husk (aspartame) 3.4 gram 3.4 g PO DAILY 30 days #500 grams 11/21/21 oral powder packet (Metamucil Fiber Singles) Allergies Allergy/AdvReac Type Severity Reaction Status Date / Time bupropion [From Wellbutrin] Allergy Mild CAUSES Unverified 03/07/20 15:04 SWOLLEN HEAD tetracycline [Tetracycline] Allergy Mild UNKNOWN Unverified 03/07/20 15:04 trifluoperazine Allergy Mild UNKNOWN Unverified 03/07/20 15:04 [From Stelazine] clozapine [From Clozaril] AdvReac Mild SEIZURES,NE Unverified 03/07/20 15:04 UTROPENIA Review of Systems Review of Systems: Yes Other ( ) Neurologic: Reports Abnormal speech present PMFSH Past Medical History Source: nursing notes reviewed Social History Social History Household Members: Family Household Members Other:: Father Housing: House Do you presently have visiting nurse or other home services: No Patient Tobacco Use Status: Never used Tobacco e-Cigarette/Vaping Use: Never Used Second Hand Smoke Exposure: No Substance Use Type: Caffiene Advance Directives: No Advance Directives Information Provided: No Guardian: No service: Yes (Pt reported that he served in the [employer] for 5-6 weeks.) Sexual orientation: Did not discuss. Physical Exam Vital Signs: Vital Signs: Last Vital Signs Temp 99.2 F 05/07/22 12:53 Pulse 97 05/07/22 12:53 Resp 18 05/07/22 12:53 BP 156/84 H 05/07/22 12:53 Pulse Ox 96 05/07/22 12:53 O2 Del Method 05/07/22 12:53 BMI result Body Mass Index 26.7 Vital signs as noted, normal with the exception of a temperature of 99.2? (slightly elevated) Const: General: anxious Nutritional Appearance: average body habitus Limitations: other limitations (Paranoia/psychiatric illness) HEENT: Head: Yes normal to inspection, Yes normocephalic and Yes atraumatic Ears: external ears normal General nose exam: Normal external nose present Face and sinus: Yes normal facial exam Eyes: Eyelids: Yes eyelids normal Conjunctivae: conjunctivae normal Sclerae: sclerae normal Neck: Neck: Yes normal visual inspection and Yes full ROM Resp: Effort & Inspection: normal respiratory effort and Actively coughing Cardio: Rate: regular rate Rhythm: regular rhythm Back/Spine/Pelvis: Cervical Spine: normal cervical lordosis and cervical ROM normal Skin: General skin exam: no rashes or lesions noted, no mottling and no pallor Rashes: no rashes Neuro: General: no focal motor deficits Cranial nerves: Yes CN's II-XII intact bilaterally and Yes Bilaterally intact EOM present Cognition (Neuro): abnormal cognition Speech: Abnormal speech present Gait exam (Neuro): Normal gait present Motor exam (neuro): 5/5 motor strength present throughout Psych: Appearance: disheveled Speech and movement: Pressured speech present and Psychomotor agitation in speech present Affect: Labile affect present and Animated affect present Attitude: Guarded attititude/behavior present Thought process: Confabulating thought process present and Flight of ideas present Thought content: Paranoid delusions present Insight: Poor insight present (Psych) Judgement: Poor judgement present (Psych) MDM - Psych MDM Narrative Medical decision making narrative: 48-year-old male with a past medical history of psychiatric disorder. Patient is currently manic and paranoid. Laboratory studies as reviewed below. [place] level slightly low, but patient refuses to take any additional medications. Differential Diagnosis Differential diagnosis: Likely acute psychosis and schizoaffective disorder Lab Data Attestation: I reviewed the patient's lab results. Lab results narrative: [place] level noted to be slightly low Result diagrams: 05/07/22 13:16 05/07/22 13:16 Labs: Lab Results 05/07/22 05/07/22 05/07/22 Range/Units 13:15 13:16 13:16 WBC 9.5 (4.8-10.8) X10*3/uL RBC 4.67 (4.60-5.80) X10*6/uL Hgb 15.0 (14.0-18.0) g/dl Hct 43.5 (42.0-52.0) % MCV 93.1 (80.0-98.0) fL MCH 32.1 (27.0-33.0) pg MCHC 34.5 (31.0-36.0) g/dl RDW 12.3 (11.0-16.0) % Plt Count 298 (160-400) X10*3/uL MPV 9.8 (9.4-12.4) fL Immature Gran % (Auto) 0.3 (0.0-0.4) % Neut % (Auto) 70.0 (45-73) % Lymph % (Auto) 21.0 (20-40) % [place] % (Auto) 6.0 (2-11) % Eos % (Auto) 2.1 (0-4) % Baso % (Auto) 0.6 (0-2) % Lymph # (Auto) 2.0 (1.2-4.9) X10*3/uL [place] # (Auto) 0.6 (0.1-1.2) X10*3/uL Eos # (Auto) 0.2 (0.0-0.4) X10*3/uL Baso # (Auto) 0.1 (0.0-0.2) X10*3/uL Abs Immat Gran (auto) 0.03 (0.00-0.03) X10*3/uL Absolute Neuts (auto) 6.6 (2.0-8.3) x10*3/uL Absolute Nucleated RBC 0.000 (0.0-0.012) X10*3/uL Nucleated RBC % (auto) 0.0 (0.0-0.2) /100WBC Sodium 138 (135-145) mmol/L Potassium 4.5 (3.3-5.1) mmol/L Chloride 104 (96-108) mmol/L Carbon Dioxide 23 (22-29) mmol/L Anion Gap 16 (12-20) BUN 17 H (9-16) mg/dL Creatinine 0.87 (0.5-1.4) mg/dL Estim Creat Clear Calc 113.6 Estimated GFR > 60 Random Glucose 118 H (60-115) mg/dL Calcium 9.1 D (8.4-10.2) mg/dL Total Bilirubin 0.3 (0.0-1.0) mg/dL Direct Bilirubin < 0.2 (0.0-0.5) mg/dL AST 38 H D (5-37) U/L ALT 35 (0-40) U/L Alkaline Phosphatase 50 (39-117) U/L Total Protein 7.3 (6.5-8.0) g/dL Albumin 4.5 (3.5-5.0) g/dL Lipase 58 (8-78) U/L Salicylates < 5.0 L (15-30) mg/dL Urine Opiates Screen (Not Detect) Urine Fentanyl Screen (Not Detect) Acetaminophen < 1 (<30) mcg/mL Ur Barbiturates Screen (Not Detect) Ur Phencyclidine Scrn (Not Detect) Ur Amphetamines Screen (Not Detect) U Benzodiazepines Scrn (Not Detect) [place] (0.60-1.20) mmol/L Urine Cocaine Screen (Not Detect) U Marijuana (THC) Screen (Not Detect) Ethyl Alcohol < 10 mg/dL COVID-19 (RYAN) Negative (Negative) COVID-19 Clin Com See Note 05/07/22 05/07/22 Range/Units 13:16 13:43 WBC (4.8-10.8) X10*3/uL RBC (4.60-5.80) X10*6/uL Hgb (14.0-18.0) g/dl Hct (42.0-52.0) % MCV (80.0-98.0) fL MCH (27.0-33.0) pg MCHC (31.0-36.0) g/dl RDW (11.0-16.0) % Plt Count (160-400) X10*3/uL MPV (9.4-12.4) fL Immature Gran % (Auto) (0.0-0.4) % Neut % (Auto) (45-73) % Lymph % (Auto) (20-40) % [place] % (Auto) (2-11) % Eos % (Auto) (0-4) % Baso % (Auto) (0-2) % Lymph # (Auto) (1.2-4.9) X10*3/uL [place] # (Auto) (0.1-1.2) X10*3/uL Eos # (Auto) (0.0-0.4) X10*3/uL Baso # (Auto) (0.0-0.2) X10*3/uL Abs Immat Gran (auto) (0.00-0.03) X10*3/uL Absolute Neuts (auto) (2.0-8.3) x10*3/uL Absolute Nucleated RBC (0.0-0.012) X10*3/uL Nucleated RBC % (auto) (0.0-0.2) /100WBC Sodium (135-145) mmol/L Potassium (3.3-5.1) mmol/L Chloride (96-108) mmol/L Carbon Dioxide (22-29) mmol/L Anion Gap (12-20) BUN (9-16) mg/dL Creatinine (0.5-1.4) mg/dL Estim Creat Clear Calc Estimated GFR Random Glucose (60-115) mg/dL Calcium (8.4-10.2) mg/dL Total Bilirubin (0.0-1.0) mg/dL Direct Bilirubin (0.0-0.5) mg/dL AST (5-37) U/L ALT (0-40) U/L Alkaline Phosphatase (39-117) U/L Total Protein (6.5-8.0) g/dL Albumin (3.5-5.0) g/dL Lipase (8-78) U/L Salicylates (15-30) mg/dL Urine Opiates Screen Not Detected (Not Detect) Urine Fentanyl Screen Not Detected (Not Detect) Acetaminophen (<30) mcg/mL Ur Barbiturates Screen Not Detected (Not Detect) Ur Phencyclidine Scrn Not Detected (Not Detect) Ur Amphetamines Screen Not Detected (Not Detect) U Benzodiazepines Scrn Not Detected (Not Detect) [place] 0.53 L (0.60-1.20) mmol/L Urine Cocaine Screen Not Detected (Not Detect) U Marijuana (THC) Screen Not Detected (Not Detect) Ethyl Alcohol mg/dL COVID-19 (RYAN) (Negative) COVID-19 Clin Com Discharge Plan Discharge Clinical Impression: Schizoaffective disorder, bipolar type, Acute psychosis Patient Disposition: Still a Patient Prescriptions: No Action lithium carbonate 300 mg Tablet Extended Release 600 mg PO BID 30 Days Qty: 120 0RF Metamucil Fiber Singles 3.4 gram Powder In Packet 3.4 g PO DAILY 30 Days Qty: 500 0RF olanzapine 10 mg tablet 30 mg PO BEDTIME 30 Days Qty: 90 0RF
--- NOTE | 2022-05-07 18:36 | MHC.CARE ---
CARE team completed evaluation and plan is for inpt admission. Pt signed a CV and will be admitted to M3 this evening. CARE team has reached out to [facility] several times to obtain authorization, left message, awaiting call back.
[2022-05-07 19:20] VITALS: BP 146/80; PULSE 92; RESP 16; TEMP 36.7; O2SAT 98
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
--- NOTE | 2022-05-07 23:25 | PC.NURSE ---
Addendum entered by Tiffanie Forte RN 05/08/22 01:09: The arreola to pt's sentry lockbox is on the arreola ring with pt's belongings, locked up in closet. Original Note: Eriberto was admitted to M3 at 1930 from [facility] on a 12b for treatment of schizoaffective disorder, bipolar type. Provider on M3 rejected the CV. Precipitant of admission includes decompensation, symptoms of psychosis marked by auditory hallucinations, delusions, and amish preoccupation escalating over 5 days.? Pt is A&O, refuses medication and makes bizarre statements, such as:? ?Women are ruining everything. You?re taking over the world and killing us and making us kill ourselves.?? ?I?m not taking any medications unless I?m forced to,? stated a number of times. ?They cause senility and shorten your life. I don?t want to take them.? Mood is labile, agitated. Affect is irritable. Pt verbalizes paranoia over medication and suspiciousness that staff have lost a arreola to his lockbox. Regarding his lockbox arreola, pt stated if it wasn?t located he would tommie and complain to various spiritual beings. Thought process disorganized. Unable to complete detailed assessment d-t pt?s MS, irritability. No substance use issues reported. Medical issues: Denies. Physical complaint? None Safety checks: Q15.
[2022-05-08 08:30] VITALS: BP 143/77; PULSE 93; RESP 20; TEMP 36.8; O2SAT 98
[2022-05-08 09:03] LABS: Cholesterol 142 mg/dL; HDL Cholesterol 67 mg/dL; LDL Cholesterol Calculated 60 mg/dl; Magnesium 2.3 mg/dL (1.6-2.6); Triglycerides 76 mg/dL
[2022-05-08 09:24] LABS: Free T4 (Free Thyroxine) 0.95 ng/dL (0.71-1.85); Thyroid Stimulating Hormone 1.71 uIU/mL (0.32-4.0)
[2022-05-08 11:41] LABS: Folate 17.6 ng/mL (> or = 4.0); Vitamin B12 948 pg/mL (200-900)
--- NOTE | 2022-05-08 17:03 | PC.NURSE ---
patient declined flu vaccine stating that he has already received it.
--- NOTE | 2022-05-08 17:58 | P.PNPSI_ITS ---
Subjective Subjective Date of Service: 05/08/22 Reason For Visit: AH, delusional Interim History: Discussed with team, pt on 5 min checks and in group room due to bizarre and intrusive bx on the unit. Tor pt says he is good and that he has been doing a lot of writing and printing and numbers. He shows T/W a page filled with words, difficult to read, has his name written down multiple times and statements about ravinder gods. Says he didnt sleep that much because he doesnt need that much sleep as he is a special male human being. He ate enough to get by. Continues to refuse meds, says he doesnt want unnatural chemicals in his body. Denies SI, feels safe here. Still says his gf wants him to take meds because she thinks im mentally ill in some way, unless she is trying to deceive me or playing a game. Pt says forcing me to take meds would make me hurt myself or other people and their living things and their beings. Says tor he wants to be in his room for three hours to be safe, when asked from what he says I cant say. Has speech latency, responding to internal stimuli. Medication Compliance: No Attending Groups: No Review of Systems Acute medical concerns: No Medical Review of Systems: unchanged Mental Status Exam Mental Status Exam Narrative: A&O. Pt in hospital attire, okay hygiene/ grooming. Intense eye contact, attentive. No Tics or Tremors. No abnormal involuntary movements. In behavioral control but elevated vocal volume and somewhat irritable, guarded. Non-pressured speech, non-spontaneous, speech latency. Mood is ?alright,? affect is flat. Denies SI/SIB/HI upon inquiry. Endorses AH that are at times command in nature. Has VH and grandiose delusional thought content. Thoughts are elaborate, bizarre. Appears internally preoccupied. Insight/ Judgment poor. Diagnostics Vital Signs (24Hr): Vital Signs - 24 hr 05/07/22 19:20 05/08/22 08:30 Temperature 98.1 F 98.2 F Pulse Rate 92 93 Respiratory Rate 16 20 Blood Pressure 146/80 H 143/77 H Pulse Oximetry 98 98 Oxygen Delivery Method Room Air Room Air BMI result Body Mass Index 26.7 Labs Results: 05/07/22 13:16 05/07/22 13:16 Labs: Laboratory Results - last 48 hr 05/07/22 05/07/22 05/07/22 13:15 13:16 13:16 WBC 9.5 RBC 4.67 Hgb 15.0 Hct 43.5 MCV 93.1 MCH 32.1 MCHC 34.5 RDW 12.3 Plt Count 298 MPV 9.8 Immature Gran % (Auto) 0.3 Neut % (Auto) 70.0 Lymph % (Auto) 21.0 [place] % (Auto) 6.0 Eos % (Auto) 2.1 Baso % (Auto) 0.6 Lymph # (Auto) 2.0 [place] # (Auto) 0.6 Eos # (Auto) 0.2 Baso # (Auto) 0.1 Abs Immat Gran (auto) 0.03 Absolute Neuts (auto) 6.6 Absolute Nucleated RBC 0.000 Nucleated RBC % (auto) 0.0 Sodium 138 Potassium 4.5 Chloride 104 Carbon Dioxide 23 Anion Gap 16 BUN 17 H Creatinine 0.87 Estim Creat Clear Calc 113.6 Estimated GFR > 60 Random Glucose 118 H Calcium 9.1 D Magnesium Total Bilirubin 0.3 Direct Bilirubin < 0.2 AST 38 H D ALT 35 Alkaline Phosphatase 50 Total Protein 7.3 Albumin 4.5 Triglycerides Cholesterol LDL Cholesterol, Calc HDL Cholesterol Lipase 58 Vitamin B12 Folate TSH Free T4 Salicylates < 5.0 L Urine Opiates Screen Urine Fentanyl Screen Acetaminophen < 1 Ur Barbiturates Screen Ur Phencyclidine Scrn Ur Amphetamines Screen U Benzodiazepines Scrn [place] Urine Cocaine Screen U Marijuana (THC) Screen Ethyl Alcohol < 10 COVID-19 (RYAN) Negative COVID-19 Clin Com See Note 05/07/22 05/07/22 05/08/22 13:16 13:43 08:14 WBC RBC Hgb Hct MCV MCH MCHC RDW Plt Count MPV Immature Gran % (Auto) Neut % (Auto) Lymph % (Auto) [place] % (Auto) Eos % (Auto) Baso % (Auto) Lymph # (Auto) [place] # (Auto) Eos # (Auto) Baso # (Auto) Abs Immat Gran (auto) Absolute Neuts (auto) Absolute Nucleated RBC Nucleated RBC % (auto) Sodium Potassium Chloride Carbon Dioxide Anion Gap BUN Creatinine Estim Creat Clear Calc Estimated GFR Random Glucose Calcium Magnesium 2.3 Total Bilirubin Direct Bilirubin AST ALT Alkaline Phosphatase Total Protein Albumin Triglycerides 76 Cholesterol 142 LDL Cholesterol, Calc 60 HDL Cholesterol 67 D Lipase Vitamin B12 Folate TSH 1.71 Free T4 0.95 Salicylates Urine Opiates Screen Not Detected Urine Fentanyl Screen Not Detected Acetaminophen Ur Barbiturates Screen Not Detected Ur Phencyclidine Scrn Not Detected Ur Amphetamines Screen Not Detected U Benzodiazepines Scrn Not Detected [place] 0.53 L Urine Cocaine Screen Not Detected U Marijuana (THC) Screen Not Detected Ethyl Alcohol COVID-19 (RYAN) COVID-19 [facility] Com 05/08/22 08:14 WBC RBC Hgb Hct MCV MCH MCHC RDW Plt Count MPV Immature Gran % (Auto) Neut % (Auto) Lymph % (Auto) [place] % (Auto) Eos % (Auto) Baso % (Auto) Lymph # (Auto) [place] # (Auto) Eos # (Auto) Baso # (Auto) Abs Immat Gran (auto) Absolute Neuts (auto) Absolute Nucleated RBC Nucleated RBC % (auto) Sodium Potassium Chloride Carbon Dioxide Anion Gap BUN Creatinine Estim Creat Clear Calc Estimated GFR Random Glucose Calcium Magnesium Total Bilirubin Direct Bilirubin AST ALT Alkaline Phosphatase Total Protein Albumin Triglycerides Cholesterol LDL Cholesterol, Calc HDL Cholesterol Lipase Vitamin B12 948 H Folate 17.6 TSH Free T4 Salicylates Urine Opiates Screen Urine Fentanyl Screen Acetaminophen Ur Barbiturates Screen Ur Phencyclidine Scrn Ur Amphetamines Screen U Benzodiazepines Scrn [place] Urine Cocaine Screen U Marijuana (THC) Screen Ethyl Alcohol COVID-19 (RYAN) COVID-19 Clin Com Medications Medications Current Medications Acetaminophen (Acetaminophen 325 Mg Tablet) 650 mg PO Q6H PRN PRN Reason: Headache/Pain Mild Scale (1-3) Al Hydroxide/Mg Hydroxide (Magnesium Hydrox/Alum Hydrox 30 Ml Oral.Susp) 30 ml PO Q6H PRN PRN Reason: Heartburn/Nausea Hydroxyzine HCl (Hydroxyzine Hcl 25 Mg Tablet) 25 mg PO Q6H PRN PRN Reason: Anxiety [place] Carbonate ([place] Carbonate Er 300 Mg Tablet.Er) 600 mg PO BID [facility] Last Admin: 05/08/22 08:34 Dose: Not Given Magnesium Hydroxide (Milk Of Magnesia 30 Ml Oral.Susp) 30 ml PO DAILY PRN PRN Reason: Constipation Olanzapine (Olanzapine 10 Mg Tablet) 30 mg PO BEDTIME [facility] Last Admin: 05/07/22 22:13 Dose: Not Given Trazodone HCl (Trazodone Hcl 50 Mg Tablet) 50 mg PO BEDTIME PRN PRN Reason: Insomnia Allergies Allergies Allergy/AdvReac Type Severity Reaction Status Date / Time bupropion [From Wellbutrin] Allergy Mild CAUSES Unverified 03/07/20 15:04 SWOLLEN HEAD tetracycline [Tetracycline] Allergy Mild UNKNOWN Unverified 03/07/20 15:04 trifluoperazine Allergy Mild UNKNOWN Unverified 03/07/20 15:04 [From Stelazine] clozapine [From Clozaril] AdvReac Mild SEIZURES,NE Unverified 03/07/20 15:04 UTROPENIA Assessment & Plan Assessment & Plan (1) Schizoaffective disorder, bipolar type: Status: Acute Code(s): F25.0 - Schizoaffective disorder, bipolar type Plan Eriberto is a 56 y.o. male with a past medical history of schizoaffective diso rder, bipolar type. He presented to [facility] on 05/07/22 due to grandiose, paranoid delusional thought content, command AH. Per pt?s gf, he had been doing well until 05/02/22, however began responding to internal stimuli and on 05/06/22 he emptied his medications down the garbage disposal. Hx of IPLOC on section 8 at [facility] in September- November 2021. Stabilized on lithium and olanzapine. Plan: Pt signed a CV, however does not appear to understand the conditional voluntary form and felt forced into doing this, states he is actually involuntary for the admission, will reject the CV. Will continue lithium 600 mg BID and olanzapine 30 mg HS, however pt says he intends to refuse. Li level 0.53 on admission. 05/08: Continue to offer meds, pt is intrusive, bizarre, makes vague statments about harming himself or others if forced to take meds Q15 min safety checks, CV Monitor response to medications. Monitor for safety in the milieu. Discharge on stabilization. Patient seen. Chart reviewed. Discussed with team. Obtain collateral contact info?as needed I spent minutes with the patient and/or on the patient floor today, greater than?50% of which was spent counseling/coordinating care. Patient educated on: diagnosis, medication risk/benefits and therapeutic strategies Reason for contiued inpatient stay Substantial Risk for: harm to self, harm to others, inability to function, rapid decompensation and med/psych decompensation
[2022-05-08 20:20] VITALS: BP 147/91; PULSE 79; RESP 18; TEMP 36.8; O2SAT 97
--- NOTE | 2022-05-09 00:56 | HO.PSYCHPN ---
Subjective Subjective Date of Service: 05/09/22 Reason For Visit: AH, delusional Subjective Notes: Sexton Warning and Section 12B Interim History: Sexton's warning provided. Pt is on 5 min checks, as he is in room with equipment observation, needs supervision. Pt is refusing medications. Pt refused to meet with T/W. Bizarre, disorganized, paranoid. Medication Compliance: No Side effects from medications: No Attending Groups: Intermittent Review of Systems Acute medical concerns: No Medical Review of Systems: unchanged Mental Status Exam Mental Status Exam Narrative: A&O. Pt in hospital attire, okay hygiene/ grooming. Intense eye contact, attentive. No Tics or Tremors. No abnormal involuntary movements. In behavioral control but elevated vocal volume and somewhat irritable, guarded. Non-pressured speech, non-spontaneous, speech latency. Mood is [refused to state], affect is flat. Denies SI/SIB/HI upon inquiry. Endorses AH that are at times command in nature. Has VH and grandiose delusional thought content. Thoughts are elaborate, bizarre. Appears internally preoccupied. Insight/ Judgment poor. Diagnostics Vital Signs (24Hr): Vital Signs - 24 hr 05/08/22 08:30 05/08/22 20:20 Temperature 98.2 F 98.3 F Pulse Rate 93 79 Respiratory Rate 20 18 Blood Pressure 143/77 H 147/91 H Pulse Oximetry 98 97 Oxygen Delivery Method Room Air Room Air BMI result Body Mass Index 26.7 Labs Results: 05/07/22 13:16 05/07/22 13:16 Labs: Laboratory Results - last 48 hr 05/07/22 05/07/22 05/07/22 13:15 13:16 13:16 WBC 9.5 RBC 4.67 Hgb 15.0 Hct 43.5 MCV 93.1 MCH 32.1 MCHC 34.5 RDW 12.3 Plt Count 298 MPV 9.8 Immature Gran % (Auto) 0.3 Neut % (Auto) 70.0 Lymph % (Auto) 21.0 [place] % (Auto) 6.0 Eos % (Auto) 2.1 Baso % (Auto) 0.6 Lymph # (Auto) 2.0 [place] # (Auto) 0.6 Eos # (Auto) 0.2 Baso # (Auto) 0.1 Abs Immat Gran (auto) 0.03 Absolute Neuts (auto) 6.6 Absolute Nucleated RBC 0.000 Nucleated RBC % (auto) 0.0 Sodium 138 Potassium 4.5 Chloride 104 Carbon Dioxide 23 Anion Gap 16 BUN 17 H Creatinine 0.87 Estim Creat Clear Calc 113.6 Estimated GFR > 60 Random Glucose 118 H Calcium 9.1 D Magnesium Total Bilirubin 0.3 Direct Bilirubin < 0.2 AST 38 H D ALT 35 Alkaline Phosphatase 50 Total Protein 7.3 Albumin 4.5 Triglycerides Cholesterol LDL Cholesterol, Calc HDL Cholesterol Lipase 58 Vitamin B12 Folate TSH Free T4 Salicylates < 5.0 L Urine Opiates Screen Urine Fentanyl Screen Acetaminophen < 1 Ur Barbiturates Screen Ur Phencyclidine Scrn Ur Amphetamines Screen U Benzodiazepines Scrn [place] Urine Cocaine Screen U Marijuana (THC) Screen Ethyl Alcohol < 10 COVID-19 (RYAN) Negative COVID-19 [employer] Com See Note 05/07/22 05/07/22 05/08/22 13:16 13:43 08:14 WBC RBC Hgb Hct MCV MCH MCHC RDW Plt Count MPV Immature Gran % (Auto) Neut % (Auto) Lymph % (Auto) [place] % (Auto) Eos % (Auto) Baso % (Auto) Lymph # (Auto) [place] # (Auto) Eos # (Auto) Baso # (Auto) Abs Immat Gran (auto) Absolute Neuts (auto) Absolute Nucleated RBC Nucleated RBC % (auto) Sodium Potassium Chloride Carbon Dioxide Anion Gap BUN Creatinine Estim Creat Clear Calc Estimated GFR Random Glucose Calcium Magnesium 2.3 Total Bilirubin Direct Bilirubin AST ALT Alkaline Phosphatase Total Protein Albumin Triglycerides 76 Cholesterol 142 LDL Cholesterol, Calc 60 HDL Cholesterol 67 D Lipase Vitamin B12 Folate TSH 1.71 Free T4 0.95 Salicylates Urine Opiates Screen Not Detected Urine Fentanyl Screen Not Detected Acetaminophen Ur Barbiturates Screen Not Detected Ur Phencyclidine Scrn Not Detected Ur Amphetamines Screen Not Detected U Benzodiazepines Scrn Not Detected [place] 0.53 L Urine Cocaine Screen Not Detected U Marijuana (THC) Screen Not Detected Ethyl Alcohol COVID-19 (RYAN) COVID-19 [employer] Com 05/08/22 08:14 WBC RBC Hgb Hct MCV MCH MCHC RDW Plt Count MPV Immature Gran % (Auto) Neut % (Auto) Lymph % (Auto) [place] % (Auto) Eos % (Auto) Baso % (Auto) Lymph # (Auto) [place] # (Auto) Eos # (Auto) Baso # (Auto) Abs Immat Gran (auto) Absolute Neuts (auto) Absolute Nucleated RBC Nucleated RBC % (auto) Sodium Potassium Chloride Carbon Dioxide Anion Gap BUN Creatinine Estim Creat Clear Calc Estimated GFR Random Glucose Calcium Magnesium Total Bilirubin Direct Bilirubin AST ALT Alkaline Phosphatase Total Protein Albumin Triglycerides Cholesterol LDL Cholesterol, Calc HDL Cholesterol Lipase Vitamin B12 948 H Folate 17.6 TSH Free T4 Salicylates Urine Opiates Screen Urine Fentanyl Screen Acetaminophen Ur Barbiturates Screen Ur Phencyclidine Scrn Ur Amphetamines Screen U Benzodiazepines Scrn [place] Urine Cocaine Screen U Marijuana (THC) Screen Ethyl Alcohol COVID-19 (RYAN) COVID-19 Clin Com Medications Medications Current Medications Acetaminophen (Acetaminophen 325 Mg Tablet) 650 mg PO Q6H PRN PRN Reason: Headache/Pain Mild Scale (1-3) Al Hydroxide/Mg Hydroxide (Magnesium Hydrox/Alum Hydrox 30 Ml Oral.Susp) 30 ml PO Q6H PRN PRN Reason: Heartburn/Nausea Hydroxyzine HCl (Hydroxyzine Hcl 25 Mg Tablet) 25 mg PO Q6H PRN PRN Reason: Anxiety [place] Carbonate ([place] Carbonate Er 300 Mg Tablet.Er) 600 mg PO BID [facility] Last Admin: 05/08/22 21:40 Dose: Not Given Magnesium Hydroxide (Milk Of Magnesia 30 Ml Oral.Susp) 30 ml PO DAILY PRN PRN Reason: Constipation Olanzapine (Olanzapine 10 Mg Tablet) 30 mg PO BEDTIME [facility] Last Admin: 05/08/22 21:40 Dose: Not Given Trazodone HCl (Trazodone Hcl 50 Mg Tablet) 50 mg PO BEDTIME PRN PRN Reason: Insomnia Allergies Allergies Allergy/AdvReac Type Severity Reaction Status Date / Time bupropion [From Wellbutrin] Allergy Mild CAUSES Unverified 03/07/20 15:04 SWOLLEN HEAD tetracycline [Tetracycline] Allergy Mild UNKNOWN Unverified 03/07/20 15:04 trifluoperazine Allergy Mild UNKNOWN Unverified 03/07/20 15:04 [From Stelazine] clozapine [From Clozaril] AdvReac Mild SEIZURES,NE Unverified 03/07/20 15:04 UTROPENIA Assessment & Plan Assessment & Plan (1) Schizoaffective disorder, bipolar type: Status: Acute Code(s): F25.0 - Schizoaffective disorder, bipolar type Plan Eriberto is a 56 y.o. male with a past medical history of schizoaffective disorder, bipolar type. He presented to [facility] on 05/07/22 due to grandiose, paranoid delusional thought content, command AH. Per pt?s gf, he had been doing well until 05/02/22, however began responding to internal stimuli and on 05/06/22 he emptied his medications down the garbage disposal. Hx of IPLOC on section 8 at [facility] in September- November 2021. Stabilized on lithium and olanzapine. Plan: Pt signed a CV, however does not appear to understand the conditional voluntary form and felt forced into doing this, states he is actually involuntary for the admission, will reject the CV. Will continue lithium 600 mg BID and olanzapine 30 mg HS, however pt says he intends to refuse. Li level 0.53 on admission. 05/08: Continue to offer meds, pt is intrusive, bizarre, makes vague statements about harming himself or others if forced to take meds, on 5 min checks 05/09: Refused to meet, declining medication Q15 min safety checks, CV Monitor response to medications. Monitor for safety in the milieu. Discharge on stabilization. Patient seen. Chart reviewed. Discussed with team. Obtain collateral contact info?as needed I spent minutes with the patient and/or on the patient floor today, greater than?50% of which was spent counseling/coordinating care. Patient educated on: other Reason for contiued inpatient stay Substantial Risk for: inability to function, rapid decompensation and med/psych decompensation
[2022-05-09 08:10] VITALS: BP 128/83; PULSE 96; RESP 18; TEMP 36.6; O2SAT 98
[2022-05-09 20:00] VITALS: BP 163/82; PULSE 95; RESP 18; TEMP 36.7; O2SAT 95
--- NOTE | 2022-05-10 01:53 | HO.PSYCHPN ---
Subjective Subjective Date of Service: 05/10/22 Reason For Visit: AH, delusional Subjective Notes: Sexton Warning and Section 12B Interim History: Discussed with team, pt is visible in milieu, intense eye contact, writing nonsensical and disorganized words on paper. He declined to meet with T/W. Refusing medication. Medication Compliance: No Attending Groups: No Review of Systems Acute medical concerns: No Medical Review of Systems: unchanged Mental Status Exam Mental Status Exam Narrative: A&O. Pt in hospital attire, okay hygiene/ grooming. Intense eye contact, attentive. No Tics or Tremors. No abnormal involuntary movements. In behavioral control but elevated vocal volume and somewhat irritable, guarded. Non-pressured speech, non-spontaneous, speech latency. Mood is [refused to state], affect is flat. Denies SI/SIB/HI upon inquiry. Endorses AH that are at times command in nature. Has VH and grandiose delusional thought content. Thoughts are elaborate, bizarre. Appears internally preoccupied. Insight/ Judgment poor. Diagnostics Vital Signs (24Hr): Vital Signs - 24 hr 05/09/22 08:10 05/09/22 20:00 Temperature 97.8 F 98.1 F Pulse Rate 96 95 Respiratory Rate 18 18 Blood Pressure 128/83 163/82 H Pulse Oximetry 98 95 Oxygen Delivery Method Room Air Room Air BMI result Body Mass Index 26.7 Labs Results: 05/07/22 13:16 05/07/22 13:16 Labs: Laboratory Results - last 48 hr 05/08/22 05/08/22 08:14 08:14 Magnesium 2.3 Triglycerides 76 Cholesterol 142 LDL Cholesterol, Calc 60 HDL Cholesterol 67 D Vitamin B12 948 H Folate 17.6 TSH 1.71 Free T4 0.95 Medications Medications Current Medications Acetaminophen (Acetaminophen 325 Mg Tablet) 650 mg PO Q6H PRN PRN Reason: Headache/Pain Mild Scale (1-3) Al Hydroxide/Mg Hydroxide (Magnesium Hydrox/Alum Hydrox 30 Ml Oral.Susp) 30 ml PO Q6H PRN PRN Reason: Heartburn/Nausea Hydroxyzine HCl (Hydroxyzine Hcl 25 Mg Tablet) 25 mg PO Q6H PRN PRN Reason: Anxiety [place] Carbonate ([place] Carbonate Er 300 Mg Tablet.Er) 600 mg PO BID [facility] Last Admin: 05/09/22 20:42 Dose: Not Given Magnesium Hydroxide (Milk Of Magnesia 30 Ml Oral.Susp) 30 ml PO DAILY PRN PRN Reason: Constipation Olanzapine (Olanzapine 10 Mg Tablet) 30 mg PO BEDTIME [facility] Last Admin: 05/09/22 20:43 Dose: Not Given Trazodone HCl (Trazodone Hcl 50 Mg Tablet) 50 mg PO BEDTIME PRN PRN Reason: Insomnia Allergies Allergies Allergy/AdvReac Type Severity Reaction Status Date / Time bupropion [From Wellbutrin] Allergy Mild CAUSES Unverified 03/07/20 15:04 SWOLLEN HEAD tetracycline [Tetracycline] Allergy Mild UNKNOWN Unverified 03/07/20 15:04 trifluoperazine Allergy Mild UNKNOWN Unverified 03/07/20 15:04 [From Stelazine] clozapine [From Clozaril] AdvReac Mild SEIZURES,NE Unverified 03/07/20 15:04 UTROPENIA Assessment & Plan Assessment & Plan (1) Schizoaffective disorder, bipolar type: Status: Acute Code(s): F25.0 - Schizoaffective disorder, bipolar type Plan Eriberto is a 56 y.o. male with a past medical history of schizoaffective disorder, bipolar type. He presented to [facility] on 05/07/22 due to grandiose, paranoid delusional thought content, command AH. Per pt?s gf, he had been doing well until 05/02/22, however began responding to internal stimuli and on 05/06/22 he emptied his medications down the garbage disposal. Hx of IPLOC on section 8 at [facility] M[facility] in September- November 2021. Stabilized on lithium and olanzapine. Plan: Pt signed a CV, however does not appear to understand the conditional voluntary form and felt forced into doing this, states he is actually involuntary for the admission, will reject the CV. Will continue lithium 600 mg BID and olanzapine 30 mg HS, however pt says he intends to refuse. Li level 0.53 on admission. 05/08: Continue to offer meds, pt is intrusive, bizarre, makes vague statements about harming himself or others if forced to take meds, on 5 min checks 05/09: Refused to meet, declining medication 05/10: Refuses meds, not engaging in tx Q15 min safety checks, CV Monitor response to medications. Monitor for safety in the milieu. Discharge on stabilization. Patient seen. Chart reviewed. Discussed with team. Obtain collateral contact info?as needed I spent minutes with the patient and/or on the patient floor today, greater than?50% of which was spent counseling/coordinating care. Patient educated on: other Reason for contiued inpatient stay Substantial Risk for: inability to function, rapid decompensation and med/psych decompensation
[2022-05-11 09:10] VITALS: RESP 20
--- NOTE | 2022-05-11 18:12 | HO.PSYCHPN ---
Subjective Subjective Date of Service: 05/11/22 Reason For Visit: AH, delusional Interim History: Patient declines to participate in interview, waves T/W away while laying down in the dark and blanket over him. Did not engage with SW either. Intense staring, bizarre behavior, paranoid, disorganized, and delusional. Refusing meds. Medication Compliance: No Attending Groups: No Review of Systems Acute medical concerns: No Medical Review of Systems: unchanged Mental Status Exam Mental Status Exam Narrative: Alert but not organized. Pt is laying down under covers. Intense eye contact, inattentive. No Tics or Tremors. No abnormal involuntary movements. In behavioral control but elevated vocal volume at times and somewhat irritable, guarded. Non-pressured speech, non-spontaneous, speech latency. Mood is [does not state], affect is flat. Denies SI/SIB/HI upon inquiry. Endorses AH that are at times command in nature. Has VH and grandiose delusional thought content. Thoughts are elaborate, bizarre. Appears internally preoccupied. Insight/ Judgment poor. Diagnostics Vital Signs (24Hr): Vital Signs - 24 hr 05/11/22 09:10 Respiratory Rate 20 BMI result Body Mass Index 26.7 Labs Results: 05/07/22 13:16 05/07/22 13:16 Medications Medications Current Medications Acetaminophen (Acetaminophen 325 Mg Tablet) 650 mg PO Q6H PRN PRN Reason: Headache/Pain Mild Scale (1-3) Al Hydroxide/Mg Hydroxide (Magnesium Hydrox/Alum Hydrox 30 Ml Oral.Susp) 30 ml PO Q6H PRN PRN Reason: Heartburn/Nausea Hydroxyzine HCl (Hydroxyzine Hcl 25 Mg Tablet) 25 mg PO Q6H PRN PRN Reason: Anxiety [place] Carbonate ([place] Carbonate Er 300 Mg Tablet.Er) 600 mg PO BID [facility] Last Admin: 05/11/22 09:44 Dose: Not Given Magnesium Hydroxide (Milk Of Magnesia 30 Ml Oral.Susp) 30 ml PO DAILY PRN PRN Reason: Constipation Olanzapine (Olanzapine 10 Mg Tablet) 30 mg PO BEDTIME [facility] Last Admin: 05/10/22 21:48 Dose: Not Given Trazodone HCl (Trazodone Hcl 50 Mg Tablet) 50 mg PO BEDTIME PRN PRN Reason: Insomnia Allergies Allergies Allergy/AdvReac Type Severity Reaction Status Date / Time [facility] Allergy Mild CAUSES Unverified 03/07/20 15:04 SWOLLEN HEAD tetracycline [Tetracycline] Allergy Mild UNKNOWN Unverified 03/07/20 15:04 trifluoperazine Allergy Mild UNKNOWN Unverified 03/07/20 15:04 [From Stelazine] clozapine [From Clozaril] AdvReac Mild SEIZURES,NE Unverified 03/07/20 15:04 UTROPENIA Assessment & Plan Assessment & Plan (1) Schizoaffective disorder, bipolar type: Status: Acute Code(s): F25.0 - Schizoaffective disorder, bipolar type Plan Eriberto is a 56 y.o. male with a past medical history of schizoaffective disorder, bipolar type. He presented to [facility] ED on 05/07/22 due to grandiose, paranoid delusional thought content, command AH. Per pt?s gf, he had been doing well until 05/02/22, however began responding to internal stimuli and on 05/06/22 he emptied his medications down the garbage disposal. Hx of IPLOC on section 8 at [facility] M3 in September- November 2021. Stabilized on lithium and olanzapine. Plan: Pt signed a CV, however does not appear to understand the conditional voluntary form and felt forced into doing this, states he is actually involuntary for the admission, will reject the CV. Will continue lithium 600 mg BID and olanzapine 30 mg HS, however pt says he intends to refuse. Li level 0.53 on admission. 05/08: Continue to offer meds, pt is intrusive, bizarre, makes vague statements about harming himself or others if forced to take meds, on 5 min checks 05/09: Refused to meet, declining medication 05/10: Refuses meds, not engaging in tx 05/11: refuses meds, declined to meet Q15 min safety checks, CV Monitor response to medications. Monitor for safety in the milieu. Discharge on stabilization. Patient seen. Chart reviewed. Discussed with team. Obtain collateral contact info?as needed I spent minutes with the patient and/or on the patient floor today, greater than?50% of which was spent counseling/coordinating care. Reason for contiued inpatient stay Substantial Risk for: inability to function, rapid decompensation and med/psych decompensation
--- NOTE | 2022-05-12 02:10 | PC.NURSE ---
Following a shower, pt attempted to enter the hallway wet and unclothed. Staff redirected pt back to the shower to dry with the assistance of t/w. Pt began to dry his feet while standing, balancing himself on one leg. PT appeared wet, and the floor appeared wet. T/w instructed pt to sit while pt dried pt's feet, but pt continued to stand. Pt lost his balance, slamming into a wall and sliding to the floor. Pt stated, I hit my right ear when I fell. When asked if he were hurt, pt replied, No. When asked if he would like to see a doctor, pt replied, No.
[2022-05-12 13:25] VITALS: BP 139/75; PULSE 79; RESP 18; TEMP 36.6; O2SAT 98
--- NOTE | 2022-05-12 14:21 | PC.NURSE ---
Pt in bed most of shift, taking clothes off at times and laying in bed naked. Pt did allow me to take his VS, but refused am med.
--- NOTE | 2022-05-12 14:48 | PC.NURSE ---
Pt allowed to sleep up most of night per production supervisor off shift nurse.
--- NOTE | 2022-05-12 18:10 | HO.PSYCHPN ---
Subjective Subjective Date of Service: 05/12/22 Reason For Visit: AH, delusional Subjective Notes: [place] Warning, Section 7 and Section 12B Interim History: Spoke with pt. He is referring to himself in the third person and says that he is not Eriberto, he is Adarsh Nowak and refers to himself as this name throughout interview. Says Adarsh Nowak is sending you to [facility]. Mood is good, unexplainable by me. When asked about med adherence, pt says Eriberto won't take medication but that Adarsh Nowak agrees to consuming medication. Says he is eating unnatural foods with chemicals, echolalia throughout interview. Denies SI. When asked about thoughts of hurting others, pt says he would not abuse and kill either or any being in the universe. Of note, pt is naked and has been all day, stays to his room, sitting in the dark. Per staff pt is incontinent of feces and urine, smearing feces on bed. Medication Compliance: No Attending Groups: No Review of Systems Acute medical concerns: No Medical Review of Systems: unchanged Mental Status Exam Mental Status Exam Narrative: Alert but not organized. Pt is sitting in dark in his room, eating chips, naked. Poor eye contact, inattentive. No Tics or Tremors. No abnormal involuntary movements. In behavioral control but elevated vocal volume at times and somewhat irritable, guarded. Non-pressured speech, non-spontaneous, speech latency, echolalia. Mood is good, affect is flat. Denies SI/SIB/HI upon inquiry. Endorses AH that are at times command in nature. Has VH and grandiose delusional thought content. Thoughts are elaborate, bizarre. Appears internally preoccupied. Insight/ Judgment poor. Diagnostics Vital Signs (24Hr): Vital Signs - 24 hr 05/12/22 13:25 Temperature 97.9 F Pulse Rate 79 Respiratory Rate 18 Blood Pressure 139/75 Pulse Oximetry 98 Oxygen Delivery Method Room Air BMI result Body Mass Index 26.7 Labs Results: 05/07/22 13:16 05/07/22 13:16 Medications Medications Current Medications Acetaminophen (Acetaminophen 325 Mg Tablet) 650 mg PO Q6H PRN PRN Reason: Headache/Pain Mild Scale (1-3) Al Hydroxide/Mg Hydroxide (Magnesium Hydrox/Alum Hydrox 30 Ml Oral.Susp) 30 ml PO Q6H PRN PRN Reason: Heartburn/Nausea Hydroxyzine HCl (Hydroxyzine Hcl 25 Mg Tablet) 25 mg PO Q6H PRN PRN Reason: Anxiety [place] Carbonate ([place] Carbonate Er 300 Mg Tablet.Er) 600 mg PO BID [facility] Last Admin: 05/12/22 14:12 Dose: Not Given Magnesium Hydroxide (Milk Of Magnesia 30 Ml Oral.Susp) 30 ml PO DAILY PRN PRN Reason: Constipation Olanzapine (Olanzapine 10 Mg Tablet) 30 mg PO BEDTIME [facility] Last Admin: 05/11/22 20:25 Dose: Not Given Trazodone HCl (Trazodone Hcl 50 Mg Tablet) 50 mg PO BEDTIME PRN PRN Reason: Insomnia Allergies Allergies Allergy/AdvReac Type Severity Reaction Status Date / Time bupropion [From Wellbutrin] Allergy Mild CAUSES Unverified 03/07/20 15:04 SWOLLEN HEAD tetracycline [Tetracycline] Allergy Mild UNKNOWN Unverified 03/07/20 15:04 trifluoperazine Allergy Mild UNKNOWN Unverified 03/07/20 15:04 [From Stelazine] clozapine [From Clozaril] AdvReac Mild SEIZURES,NE Unverified 03/07/20 15:04 UTROPENIA Assessment & Plan Assessment & Plan (1) Schizoaffective disorder, bipolar type: Status: Acute Code(s): F25.0 - Schizoaffective disorder, bipolar type Josr Wei is a 56 y.o. male with a past medical history of schizoaffective disorder, bipolar type. He presented to [facility] ED on 05/07/22 due to grandiose, paranoid delusional thought content, command AH. Per pt?s gf, he had been doing well until 05/02/22, however began responding to internal stimuli and on 05/06/22 he emptied his medications down the garbage disposal. Hx of IPLOC on section 8 at [facility] M3 in September- November 2021. Stabilized on lithium and olanzapine. Plan: Pt signed a CV, however does not appear to understand the conditional voluntary form and felt forced into doing this, states he is actually involuntary for the admission, will reject the CV. Will continue lithium 600 mg BID and olanzapine 30 mg HS, however pt says he intends to refuse. Li level 0.53 on admission. 11/18: Continue to offer meds, pt is intrusive, bizarre, makes vague statements about harming himself or others if forced to take meds, on 5 min checks 05/09: Refused to meet, declining medication 05/10: Refuses meds, not engaging in tx 05/11: Refuses meds, not engaging in tx. Pt is now a section VII. Will change olanzapine to ODT to promote adherence. Q15 min safety checks, CV Monitor response to medications. Monitor for safety in the milieu. Discharge on stabilization. Patient seen. Chart reviewed. Discussed with team. Obtain collateral contact info?as needed I spent minutes with the patient and/or on the patient floor today, greater than?50% of which was spent counseling/coordinating care. Patient educated on: medication risk/benefits Reason for contiued inpatient stay Substantial Risk for: inability to function, rapid decompensation and med/psych decompensation
[2022-05-12 20:20] VITALS: BP 132/74; PULSE 85; RESP 16; TEMP 36.6; O2SAT 96
[2022-05-12] MEDS: OLANZapine ODT 10 MG TAB.RAPDIS 30 MG TRANSLINGU (21:46)
[2022-05-12] MEDS: Lithium Carbonate ER 300 MG TABLET.ER 600 MG PO (21:48)
[2022-05-13] MEDS: Lithium Carbonate ER 300 MG TABLET.ER 600 MG PO (09:32)
--- NOTE | 2022-05-13 15:55 | P.PNPSI_ITS ---
Subjective Subjective Date of Service: 05/13/22 Reason For Visit: AH, delusional Interim History: delayed responses, ambulating the halls. after overshooting MD by 30 feet post- greeting, swoops back and agrees to interview in interview room. discuss his living here, MD chooses staying here temporarily as opposed to living here, pt takes umbrage and storms out of the interview: i don't want to talk to you anymore if you're going to be this way! per staff, tense, isolative, w ithdrawn. not attending groups. eating some food. naked lying in bed. defecated on floor of his room as well as in bed. urinated on floor. digging into his anus with both hands, smearing feces on himself and the bed. reporting AH, took meds last night for the first time this stay, reportedly. Mental Status Exam Mental Status Exam Narrative: up and about the unit, dressed in street clothes, appears adequately groomed. variably cooperative. no PMA/PMR. speech nml rate, incr loudness. nml latency, decreased prosody. thoughts linear, illogical, concrete. affect constricted, hypo-intense, labile. mood unknown. no SI/HI/AVH expressed, but AH reported to staff respiratory therapist. Diagnostics Vital Signs (24Hr): Vital Signs - 24 hr 05/12/22 20:20 Temperature 97.9 F Pulse Rate 85 Respiratory Rate 16 Blood Pressure 132/74 Pulse Oximetry 96 Oxygen Delivery Method Room Air BMI result Body Mass Index 26.7 Labs Results: 05/07/22 13:16 05/07/22 13:16 Medications Medications Current Medications Acetaminophen (Acetaminophen 325 Mg Tablet) 650 mg PO Q6H PRN PRN Reason: Headache/Pain Mild Scale (1-3) Al Hydroxide/Mg Hydroxide (Magnesium Hydrox/Alum Hydrox 30 Ml Oral.Susp) 30 ml PO Q6H PRN PRN Reason: Heartburn/Nausea Hydroxyzine HCl (Hydroxyzine Hcl 25 Mg Tablet) 25 mg PO Q6H PRN PRN Reason: Anxiety [place] Carbonate ([place] Carbonate Er 300 Mg Tablet.Er) 600 mg PO BID [facility] Last Admin: 05/13/22 09:32 Dose: 600 mg Magnesium Hydroxide (Milk Of Magnesia 30 Ml Oral.Susp) 30 ml PO DAILY PRN PRN Reason: Constipation Olanzapine (Olanzapine Odt 10 Mg Tab.Rapdis) 30 mg TRANSLINGU BEDTIME [facility] Last Admin: 05/12/22 21:46 Dose: 30 mg Trazodone HCl (Trazodone Hcl 50 Mg Tablet) 50 mg PO BEDTIME PRN PRN Reason: Insomnia Allergies Allergies Allergy/AdvReac Type Severity Reaction Status Date / Time bupropion [From Wellbutrin] Allergy Mild CAUSES Unverified 03/07/20 15:04 SWOLLEN HEAD tetracycline [Tetracycline] Allergy Mild UNKNOWN Unverified 03/07/20 15:04 trifluoperazine Allergy Mild UNKNOWN Unverified 03/07/20 15:04 [From Stelazine] clozapine [From Clozaril] AdvReac Mild SEIZURES,NE Unverified 03/07/20 15:04 UTROPENIA Assessment & Plan Assessment & Plan (1) Schizoaffective disorder, bipolar type: Status: Acute Code(s): F25.0 - Schizoaffective disorder, bipolar type Plan Eriberto is a 56 y.o. male with a past medical history of schizoaffective disorder, bipolar type. He presented to [facility] on 05/07/22 due to grandiose, paranoid delusional thought content, command AH. Per pt?s gf, he had been doing well until 05/02/22, however began responding to internal stimuli and on 05/06/22 he emptied his medications down the garbage disposal. Hx of IPLOC on s ection [address] [facility] M3 in September- November 2021. Stabilized on lithium and olanzapine. Plan: Pt signed a CV, however does not appear to understand the conditional voluntary form and felt forced into doing this, states he is actually involuntary for the admission, will reject the CV. Will continue lithium 600 mg BID and olanzapine 30 mg HS, however pt says he intends to refuse. Li level 0.53 on admission. 05/08: Continue to offer meds, pt is intrusive, bizarre, makes vague statements about harming himself or others if forced to take meds, on 5 min checks 05/09: Refused to meet, declining medication 05/10: Refuses meds, not engaging in tx 05/11: Refuses meds, not engaging in tx. Pt is now a section VII. Will change olanzapine to ODT to promote adherence. 05/13: took meds last night. irritable, labile. reporting AH. I spent ___25___ minutes with the patient and/or on the patient floor today, greater than?50% of which was spent counseling/coordinating care. Reason for contiued inpatient stay Substantial Risk for: harm to self, harm to others, inability to function and rapid decompensation
[2022-05-13 20:26] VITALS: RESP 18
--- NOTE | 2022-05-14 06:59 | PC.NURSE ---
kitchen-patient pulling out from shelves and cabinets large amounts of foods including on insisting on needing 30 packages of peanut butter. patient became loud and verbally agitated with verbal re direction.
[2022-05-14 07:00] VITALS: BMI 24.0
--- NOTE | 2022-05-14 07:31 | HO.PSYCHPN ---
Subjective Subjective Date of Service: 05/14/22 Reason For Visit: AH, delusional Subjective Notes: Section 7 Interim History: Pt sitting in common area- declines taking to this quality analyst/technical writer (after I explained I am covering for Dr. Fernandez) stating he does not need medication never ever, never ever. Per nursing, pt defecated on the floor, took 40 containers of butter, had scissor during art group and refused to return it and threatened to harm the staff asking for it. Pt hostile and intrusive at times. Medication Compliance: No Review of Systems Review of Systems Yes Other ( ) Reports Abnormal speech present Mental Status Exam Mental Status Exam Narrative: up and about the unit, dressed in street clothes, appears adequately groomed. variably cooperative. no PMA/PMR. speech nml rate, incr loudness. nml latency, decreased prosody. thoughts linear, illogical, concrete. affect constricted, hypo-intense, labile. mood unknown. no SI/HI/AVH expressed, but AH reported to nurse staff industrial. Diagnostics Vital Signs (24Hr): Vital Signs - 24 hr 05/14/22 08:30 Respiratory Rate 18 BMI result Body Mass Index 24.0 Labs Results: 05/07/22 13:16 05/07/22 13:16 Medications Medications Current Medications Acetaminophen (Acetaminophen 325 Mg Tablet) 650 mg PO Q6H PRN PRN Reason: Headache/Pain Mild Scale (1-3) Al Hydroxide/Mg Hydroxide (Magnesium Hydrox/Alum Hydrox 30 Ml Oral.Susp) 30 ml PO Q6H PRN PRN Reason: Heartburn/Nausea Hydroxyzine HCl (Hydroxyzine Hcl 25 Mg Tablet) 25 mg PO Q6H PRN PRN Reason: Anxiety [place] Carbonate ([place] Carbonate Er 300 Mg Tablet.Er) 600 mg PO BID [facility] Last Admin: 05/15/22 04:58 Dose: Not Given Magnesium Hydroxide (Milk Of Magnesia 30 Ml Oral.Susp) 30 ml PO DAILY PRN PRN Reason: Constipation Olanzapine (Olanzapine Odt 10 Mg Tab.Rapdis) 30 mg TRANSLINGU BEDTIME [facility] Last Admin: 05/15/22 04:59 Dose: Not Given Olanzapine (Olanzapine Odt 10 Mg Tab.Rapdis) 10 mg TRANSLINGU Q4H PRN PRN Reason: agitation Last Admin: 05/14/22 12:35 Dose: 10 mg Trazodone HCl (Trazodone Hcl 50 Mg Tablet) 50 mg PO BEDTIME PRN PRN Reason: Insomnia Allergies Allergies Allergy/AdvReac Type Severity Reaction Status Date / Time bupropion [From Wellbutrin] Allergy Mild CAUSES Unverified 03/07/20 15:04 SWOLLEN HEAD tetracycline [Tetracycline] Allergy Mild UNKNOWN Unverified 03/07/20 15:04 trifluoperazine Allergy Mild UNKNOWN Unverified 03/07/20 15:04 [From Stelazine] clozapine [From Clozaril] AdvReac Mild SEIZURES,NE Unverified 03/07/20 15:04 UTROPENIA Assessment & Plan Assessment & Plan (1) Schizoaffective disorder, bipolar type: Status: Acute Code(s): F25.0 - Schizoaffective disorder, bipolar type Plan Eriberto is a 56 y.o. male with a past medical history of schizoaffective disorder, bipolar type. He presented to [facility] on 05/07/22 due to grandiose, paranoid delusional thought content, command AH. Per pt?s gf, he had been doing well until 05/02/22, however began responding to internal stimuli and on 05/06/22 he emptied his medications down the garbage disposal. Hx of IPLOC on section 8 at [facility] in September- November 2021. Stabilized on lithium and olanzapine. Plan: Pt signed a CV, however does not appear to understand the conditional voluntary form and felt forced into doing this, states he is actually involuntary for the admission, will reject the CV. Will continue lithium 600 mg BID and olanzapine 30 mg HS, however pt says he intends to refuse. Li level 0.53 on admission. 05/08: Continue to offer meds, pt is intrusive, bizarre, makes vague statements about harming himself or others if forced to take meds, on 5 min checks 05/09: Refused to meet, declining medication 05/10: Refuses meds, not engaging in tx 05/11: Refuses meds, not engaging in tx. Pt is now a section VII. Will change olanzapine to ODT to promote adherence. 05/13: took meds last night. irritable, labile. reporting AH. 05/14 continue tx. I spent minutes with the patient and/or on the patient floor today, greater than?50% of which was spent counseling/coordinating care. Reason for contiued inpatient stay Substantial Risk for: harm to others and inability to function
[2022-05-14 08:30] VITALS: RESP 18
[2022-05-14] MEDS: OLANZapine ODT 10 MG TAB.RAPDIS TRANSLINGU (12:35)
[2022-05-14] MEDS: Lithium Carbonate ER 300 MG TABLET.ER 600 MG PO (13:24)
--- NOTE | 2022-05-15 04:59 | PC.NURSE ---
Patient has not been sleeping for the past 2 days on 05/13 and 05/14. Nurse did not wake patient for HS medications as he needed to get some sleep. Patient has been sleeping for 10 hours as of this time now.
--- NOTE | 2022-05-15 05:31 | PC.NURSE ---
Attempted to give Eriberto his am dose of [place] and a dose of Zyprexa PO prn. Patient slapped pills out of nurse's hand and said for nurse to take the medications. That the nurse was a bringer of with those pills. Nurse attempted to explain to patient that these are the medications he agreed to take with Gissell Vazquez and stated he no longer wanted to engage with nurse.
[2022-05-15 06:00] VITALS: RESP 18
--- NOTE | 2022-05-15 11:41 | HO.PSYCHPN ---
Subjective Subjective Date of Service: 05/15/22 Reason For Visit: AH, delusional Interim History: MD approached pt in milieu, where pt was seated at a table. MD asked if pt would come speak for a moment. pt vigorously gestured MD away from him, saying nothing. MD stated to pt, so you do not want to speak with me today, to which pt repeated his emphatic warding-off gesture. MD then left the area. per staff, remains on Q5 min checks. refused 1:1 check-in. attended art group.using a multitude of names for himself, as if aliases. sometimes taking medications, but not consistently. obtained scissors on the unit and brandished them at staff, threatening to stab staff with them. also was allowed to shave but then refused to return the razor to staff. openly discussing his penis size in the milieu, talking about the fact that women have nipples. Mental Status Exam Mental Status Exam Narrative: up and about the unit, dressed in street clothes, appears adequately groomed. not cooperative. no PMA/PMR. electively mute, thoughts unknown. affect constricted, hypo-intense, labile. mood unknown. no SI/HI/AVH expressed. Diagnostics Vital Signs (24Hr): Vital Signs - 24 hr 05/15/22 06:00 Respiratory Rate 18 BMI result Body Mass Index 24.0 Labs Results: 05/07/22 13:16 05/07/22 13:16 Medications Medications Current Medications Acetaminophen (Acetaminophen 325 Mg Tablet) 650 mg PO Q6H PRN PRN Reason: Headache/Pain Mild Scale (1-3) Al Hydroxide/Mg Hydroxide (Magnesium Hydrox/Alum Hydrox 30 Ml Oral.Susp) 30 ml PO Q6H PRN PRN Reason: Heartburn/Nausea Hydroxyzine HCl (Hydroxyzine Hcl 25 Mg Tablet) 25 mg PO Q6H PRN PRN Reason: Anxiety [place] Carbonate ([place] Carbonate Er 300 Mg Tablet.Er) 600 mg PO BID [facility] Last Admin: 05/15/22 09:45 Dose: Not Given Magnesium Hydroxide (Milk Of Magnesia 30 Ml Oral.Susp) 30 ml PO DAILY PRN PRN Reason: Constipation Olanzapine (Olanzapine Odt 10 Mg Tab.Rapdis) 30 mg TRANSLINGU BEDTIME [facility] Last Admin: 05/15/22 04:59 Dose: Not Given Olanzapine (Olanzapine Odt 10 Mg Tab.Rapdis) 10 mg TRANSLINGU Q4H PRN PRN Reason: agitation Last Admin: 05/14/22 12:35 Dose: 10 mg Trazodone HCl (Trazodone Hcl 50 Mg Tablet) 50 mg PO BEDTIME PRN PRN Reason: Insomnia Allergies Allergies Allergy/AdvReac Type Severity Reaction Status Date / Time bupropion [From Wellbutrin] Allergy Mild CAUSES Unverified 03/07/20 15:04 SWOLLEN HEAD tetracycline [Tetracycline] Allergy Mild UNKNOWN Unverified 03/07/20 15:04 trifluoperazine Allergy Mild UNKNOWN Unverified 03/07/20 15:04 [From Stelazine] clozapine [From Clozaril] AdvReac Mild SEIZURES,NE Unverified 03/07/20 15:04 UTROPENIA Assessment & Plan Assessment & Plan (1) Schizoaffective disorder, bipolar type: Status: Acute Code(s): F25.0 - Schizoaffective disorder, bipolar type Plan Eriberto is a 56 y.o. male with a past medical history of schizoaffective disorder, bipolar type. He [place] [facility] [place] due to grandiose, paranoid delusional thought content, command AH. Per pt?s gf, he had been doing well until 05/02/22, however began responding to internal stimuli and on 05/06/22 he emptied his medications down the garbage disposal. Hx of IPLOC on section 8 at [facility] in September- November 2021. Stabilized on lithium and olanzapine. Plan: Pt signed a CV, however does not appear to understand the conditional voluntary form and felt forced into doing this, states he is actually involuntary for the admission, will reject the CV. Will continue lithium 600 mg BID and olanzapine 30 mg HS, however pt says he intends to refuse. Li level 0.53 on admission. 05/08: Continue to offer meds, pt is intrusive, bizarre, makes vague statements about harming himself or others if forced to take meds, on 5 min checks 05/09: Refused to meet, declining medication 05/10: Refuses meds, not engaging in tx 05/11: Refuses meds, not engaging in tx. Pt is now a section VII. Will change olanzapine to ODT to promote adherence. 05/13: took meds last night. irritable, labile. reporting AH. 05/14 continue tx. 05/15: not consistently taking medication. hypersexual, bizarre. threatened to stab staff with scissors (which he had in his hand) and was not cooperative in returning razor to staff after shaving. I spent __20____ minutes with the patient and/or on the patient floor today, greater than?50% of which was spent counseling/coordinating care. Reason for contiued inpatient stay Substantial Risk for: harm to self, harm to others and inability to function
--- NOTE | 2022-05-16 07:07 | P.PNPSI_ITS ---
Subjective Subjective Date of Service: 05/16/22 Reason For Visit: AH, delusional Subjective Notes: Section 7 Interim History: Pt declines talking to this advertising copy writer, then continues talking to himself: under 3 years, the rest of the world must decide...(pause) their territory. Per nursing, pt intrusive to peers, needing redirection urinating while sitting 7on common areas then walking with urine dripping all over the skelton. Pt guarded and irritable when redirected. Loudly talking in common areas about the size of his penis, which has triggered pts with trauma hx. Medication Compliance: No Side effects from medications: No Review of Systems Review of Systems Yes Other ( ) Reports Abnormal speech present Mental Status Exam Mental Status Exam Narrative: up and about the unit, dressed in street clothes, appears adequately groomed. not cooperative. no PMA/PMR. electively mute, thoughts unknown. affect constricted, hypo-intense, labile. mood unknown. no SI/HI/AVH expressed. Diagnostics Vital Signs (24Hr): Vital Signs - 24 hr 05/17/22 08:30 05/17/22 20:37 Temperature 97.6 F 98.2 F Pulse Rate 91 87 Respiratory Rate 20 18 Blood Pressure 141/92 H 147/82 H Pulse Oximetry 97 97 Oxygen Delivery Method Room Air Room Air BMI result Body Mass Index 24.0 Labs Results: 05/07/22 13:16 05/07/22 13:16 Medications Medications Current Medications Acetaminophen (Acetaminophen 325 Mg Tablet) 650 mg PO Q6H PRN PRN Reason: Headache/Pain Mild Scale (1-3) Al Hydroxide/Mg Hydroxide (Magnesium Hydrox/Alum Hydrox 30 Ml Oral.Susp) 30 ml PO Q6H PRN PRN Reason: Heartburn/Nausea Hydroxyzine HCl (Hydroxyzine Hcl 25 Mg Tablet) 25 mg PO Q6H PRN PRN Reason: Anxiety [place] Carbonate ([place] Carbonate Er 300 Mg Tablet.Er) 600 mg PO BID [facility] Last Admin: 05/17/22 21:28 Dose: Not Given Magnesium Hydroxide (Milk Of Magnesia 30 Ml Oral.Susp) 30 ml PO DAILY PRN PRN Reason: Constipation Olanzapine (Olanzapine Odt 10 Mg Tab.Rapdis) 30 mg TRANSLINGU BEDTIME [facility] Last Admin: 05/17/22 21:28 Dose: Not Given Olanzapine (Olanzapine Odt 10 Mg Tab.Rapdis) 10 mg TRANSLINGU Q4H PRN PRN Reason: agitation Last Admin: 05/14/22 12:35 Dose: 10 mg Trazodone HCl (Trazodone Hcl 50 Mg Tablet) 50 mg PO BEDTIME PRN PRN Reason: Insomnia Allergies Allergies Allergy/AdvReac Type Severity Reaction Status Date / Time bupropion [From Wellbutrin] Allergy Mild CAUSES Unverified 03/07/20 15:04 SWOLLEN HEAD tetracycline [Tetracycline] Allergy Mild UNKNOWN Unverified 03/07/20 15:04 trifluoperazine Allergy Mild UNKNOWN Unverified 03/07/20 15:04 [From Stelazine] clozapine [From Clozaril] AdvReac Mild SEIZURES,NE Unverified 03/07/20 15:04 UTROPENIA Assessment & Plan Assessment & Plan (1) Schizoaffective disorder, bipolar type: Status: Acute Code(s): F25.0 - Schizoaffective disorder, bipolar type Plan Eriberto is a 56 y.o. male with a past medical history of schizoaffective disorder, bipolar type. He presented to [facility] on 05/07/22 due to grandiose, paranoid delusional thought content, command AH. Per pt?s gf, he had been doing well until 05/02/22, however began responding to internal stimuli and on 05/06/22 he emptied his medications down the garbage disposal. Hx of IPLOC on section 8 at [facility] in September- November 2021. Stabilized on lithium and olanzapine. Plan: Pt signed a CV, however does not appear to understand the conditional v oluntary form and felt forced into doing this, states he is actually involuntary for the admission, will reject the CV. Will continue lithium 600 mg BID and olanzapine 30 mg HS, however pt says he intends to refuse. Li level 0.53 on admission. 05/08: Continue to offer meds, pt is intrusive, bizarre, makes vague statements about harming himself or others if forced to take meds, on 5 min checks 05/09: Refused to meet, declining medication 05/10: Refuses meds, not engaging in tx 05/11: Refuses meds, not engaging in tx. Pt is now a section VII. Will change olanzapine to ODT to promote adherence. 05/13: took meds last night. irritable, labile. reporting AH. 05/14 continue tx. 05/15: not consistently taking medication. hypersexual, bizarre. threatened to stab staff with scissors (which he had in his hand) and was not cooperative in returning razor to staff after shaving. 05/16 not taking meds, sect 7 continues offering meds. I spent minutes with the patient and/or on the patient floor today, greater than?50% of which was spent counseling/coordinating care. Reason for contiued inpatient stay Substantial Risk for: harm to others and inability to function
[2022-05-16 08:30] VITALS: RESP 20
--- NOTE | 2022-05-16 10:08 | PC.NURSE ---
Patient declined AM medications. Patient appears angry, swearing at staff F...you, Patient notified that if he is incontinent, he must return to room to change clothing- patient replied 'it's my right and I stay alive by urinating when I want . Also, asked patient to refrain from references to his penis size and to women's nipples while in common area, as female patients are reporting that they are triggered by these declarations. Patient continues to appear to be very angry, swearing, and refusing to engage in conversation or with treatment. Provider aware that patient is declining medication.
[2022-05-17 08:30] VITALS: BP 141/92; PULSE 91; RESP 20; TEMP 36.4; O2SAT 97
--- NOTE | 2022-05-17 10:13 | P.PNPSI_ITS ---
Subjective Subjective Date of Service: 05/17/22 Reason For Visit: AH, delusional Subjective Notes: Section 7 Interim History: Pt declines talking to this promotion writer again, stating never, never, never taking medications. Per nursing, pt intrusive to peers, needing redirection urinating while sitting 7on common areas then walking with urine dripping all over the skelton. Pt guarded and irritable when redirected. Loudly talking in common areas about the size of his penis, which has triggered pts with trauma hx. Review of Systems Review of Systems Yes Other ( ) Reports Abnormal speech present Mental Status Exam Mental Status Exam Narrative: up and about the unit, dressed in street clothes, appears adequately groomed. not cooperative. no PMA/PMR. electively mute, thoughts unknown. affect constricted, hypo-intense, labile. mood unknown. no SI/HI/AVH expressed. Diagnostics Vital Signs (24Hr): Vital Signs - 24 hr 05/17/22 08:30 05/17/22 20:37 Temperature 97.6 F 98.2 F Pulse Rate 91 87 Respiratory Rate 20 18 Blood Pressure 141/92 H 147/82 H Pulse Oximetry 97 97 Oxygen Delivery Method Room Air Room Air BMI result Body Mass Index 24.0 Labs Results: 05/07/22 13:16 05/07/22 13:16 Medications Medications Current Medications Acetaminophen (Acetaminophen 325 Mg Tablet) 650 mg PO Q6H PRN PRN Reason: Headache/Pain Mild Scale (1-3) Al Hydroxide/Mg Hydroxide (Magnesium Hydrox/Alum Hydrox 30 Ml Oral.Susp) 30 ml PO Q6H PRN PRN Reason: Heartburn/Nausea Hydroxyzine HCl (Hydroxyzine Hcl 25 Mg Tablet) 25 mg PO Q6H PRN PRN Reason: Anxiety [place] Carbonate ([place] Carbonate Er 300 Mg Tablet.Er) 600 mg PO BID [facility] Last Admin: 05/17/22 21:28 Dose: Not Given Magnesium Hydroxide (Milk Of Magnesia 30 Ml Oral.Susp) 30 ml PO DAILY PRN PRN Reason: Constipation Olanzapine (Olanzapine Odt 10 Mg Tab.Rapdis) 30 mg TRANSLINGU BEDTIME [facility] Last Admin: 05/17/22 21:28 Dose: Not Given Olanzapine (Olanzapine Odt 10 Mg Tab.Rapdis) 10 mg TRANSLINGU Q4H PRN PRN Reason: agitation Last Admin: 05/14/22 12:35 Dose: 10 mg Trazodone HCl (Trazodone Hcl 50 Mg Tablet) 50 mg PO BEDTIME PRN PRN Reason: Insomnia Allergies Allergies Allergy/AdvReac Type Severity Reaction Status Date / Time bupropion [From Wellbutrin] Allergy Mild CAUSES Unverified 03/07/20 15:04 SWOLLEN HEAD tetracycline [Tetracycline] Allergy Mild UNKNOWN Unverified 03/07/20 15:04 trifluoperazine Allergy Mild UNKNOWN Unverified 03/07/20 15:04 [From Stelazine] clozapine [From Clozaril] AdvReac Mild SEIZURES,NE Unverified 03/07/20 15:04 UTROPENIA Assessment & Plan Assessment & Plan (1) Schizoaffective disorder, bipolar type: Status: Acute Code(s): F25.0 - Schizoaffective disorder, bipolar type Plan Eriberto is a 56 y.o. male with a past medical history of schizoaffective disorder, bipolar type. He [place] [facility] [place] due to grandiose, paranoid delusional thought content, command AH. Per pt?s gf, he had been doing well until 05/02/22, however began responding to internal stimuli and on 05/06/22 he emptied his medications down the garbage disposal. Hx of IPLOC on section 8 at [facility] in [place] November [place]. Stabilized on lithium and olanzapine. Plan: Pt signed a CV, however does not appear to understand the conditional voluntary form and felt forced into doing this, states he is actually involuntary for the admission, will reject the CV. Will continue lithium 600 mg BID and olanzapine 30 mg HS, however pt says he intends to refuse. Li level 0.53 on admission. 05/08: Continue to offer meds, pt is intrusive, bizarre, makes vague statements about harming himself or others if forced to take meds, on 5 min checks 05/09: Refused to meet, declining medication 05/10: Refuses meds, not engaging in tx 05/11: Refuses meds, not engaging in tx. Pt is now a section VII. Will change olanzapine to ODT to promote adherence. 05/13: took meds last night. irritable, labile. reporting AH. 05/14 continue tx. 05/15: not consistently taking medication. hypersexual, bizarre. threatened to stab staff with scissors (which he had in his hand) and was not cooperative in returning razor to staff after shaving. 05/16 not taking meds, sect 7 continues offering meds. 05/17 continue tx. not taking meds ,pending court. I spent minutes with the patient and/or on the patient floor today, greater than?50% of which was spent counseling/coordinating care. Reason for contiued inpatient stay Substantial Risk for: harm to others and inability to function
--- NOTE | 2022-05-17 11:17 | PC.NURSE ---
Patient showered. Continues to decline medications.
--- NOTE | 2022-05-17 17:04 | PC.NURSE ---
Patient continues to eat very little, but drinking bottled water. Provider notified, reviewed vitals, no further orders at this time.
[2022-05-17 20:37] VITALS: BP 147/82; PULSE 87; RESP 18; TEMP 36.8; O2SAT 97
[2022-05-18 08:33] VITALS: RESP 19
--- NOTE | 2022-05-18 13:29 | HO.PSYCHPN ---
Subjective Subjective Date of Service: 05/18/22 Reason For Visit: AH, delusional Subjective Notes: Sexton Warning Interim History: found seated very erectly on the foot of his bed, looking straight ahead throughout the interview. responds to questions. perseverative on not wanting to take medication, referring to himself in the third person. supplies sexton warning and recommends he take medication. per staff, pt declined 1:1 check-in with staff. repeating forever x 3 and then always x 3 in the milieu. nodding and smiling to himself. dropped his pants in the middle of the skelton, exposing his genitalia, because he was not receiving peanut butter, per staff. frequently incontinent of urine. threw urine-soaked pastora cards at staff. walking very quickly in the skelton and ran right into peer. lying rigidly prone across tables in the milieu and then licking the floor. refusing medication. Mental Status Exam Mental Status Exam Narrative: seated on the edge of his bed, dressed in street clothes, appears adequately groomed. passively cooperative. no PMA/PMR. thoughts perseverative, speech droning. affect constricted, hypo-intense, non-labile. mood unknown. no SI/HI/AVH expressed. Diagnostics Vital Signs (24Hr): Vital Signs - 24 hr 05/17/22 20:37 05/18/22 08:33 Temperature 98.2 F Pulse Rate 87 Respiratory Rate 18 19 Blood Pressure 147/82 H Pulse Oximetry 97 Oxygen Delivery Method Room Air BMI result Body Mass Index 24.0 Labs Results: 05/07/22 13:16 05/07/22 13:16 Medications Medications Current Medications Acetaminophen (Acetaminophen 325 Mg Tablet) 650 mg PO Q6H PRN PRN Reason: Headache/Pain Mild Scale (1-3) Al Hydroxide/Mg Hydroxide (Magnesium Hydrox/Alum Hydrox 30 Ml Oral.Susp) 30 ml PO Q6H PRN PRN Reason: Heartburn/Nausea Hydroxyzine HCl (Hydroxyzine Hcl 25 Mg Tablet) 25 mg PO Q6H PRN PRN Reason: Anxiety [place] Carbonate ([place] Carbonate Er 300 Mg Tablet.Er) 600 mg PO BID [facility] Last Admin: 05/18/22 08:36 Dose: Not Given Magnesium Hydroxide (Milk Of Magnesia 30 Ml Oral.Susp) 30 ml PO DAILY PRN PRN Reason: Constipation Olanzapine (Olanzapine Odt 10 Mg Tab.Rapdis) 30 mg TRANSLINGU BEDTIME [facility] Last Admin: 05/17/22 21:28 Dose: Not Given Olanzapine (Olanzapine Odt 10 Mg Tab.Rapdis) 10 mg TRANSLINGU Q4H PRN PRN Reason: agitation Last Admin: 05/14/22 12:35 Dose: 10 mg Trazodone HCl (Trazodone Hcl 50 Mg Tablet) 50 mg PO BEDTIME PRN PRN Reason: Insomnia Allergies Allergies Allergy/AdvReac Type Severity Reaction Status Date / Time bupropion [From Wellbutrin] Allergy Mild CAUSES Unverified 03/07/20 15:04 SWOLLEN HEAD tetracycline [Tetracycline] Allergy Mild UNKNOWN Unverified 03/07/20 15:04 trifluoperazine Allergy Mild UNKNOWN Unverified 03/07/20 15:04 [From Stelazine] clozapine [From Clozaril] AdvReac Mild SEIZURES,NE Unverified 03/07/20 15:04 UTROPENIA Assessment & Plan Assessment & Plan (1) Schizoaffective disorder, bipolar type: Status: Acute Code(s): F25.0 - Schizoaffective disorder, bipolar type Plan Eriberto is a 56 y.o. male with a past medical history of schizoaffective disorder, bipolar type. He presented to [facility] [place] [facility] on 05/07/22 due to grandiose, paranoid delusional thought content, command AH. Per pt?s gf, he had been doing well until 05/02/22, however began responding to internal stimuli and on 05/06/22 he emptied his medications down the garbage disposal. Hx of IPLOC on section 8 at [facility] [place] [facility] in September- November 2021. Stabilized on lithium and olanzapine. Plan: Pt signed a CV, however does not appear to understand the conditional voluntary form and felt forced into doing this, states he is actually involuntary for the admission, will reject the CV. Will continue lithium 600 mg BID and olanzapine 30 mg HS, however pt says he intends to refuse. Li level 0.53 on admission. 05/08: Continue to offer meds, pt is intrusive, bizarre, makes vague statements about harming himself or others if forced to take meds, on 5 min checks 05/09: Refused to meet, declining medication 05/10: Refuses meds, not engaging in tx 05/11: Refuses meds, not engaging in tx. Pt is now a section VII. Will change olanzapine to ODT to promote adherence. 05/13: took meds last night. irritable, labile. reporting AH. 05/14 continue tx. 05/15: not consistently taking medication. hypersexual, bizarre. threatened to stab staff with scissors (which he had in his hand) and was not cooperative in returning razor to staff after shaving. 05/16 not taking meds, sect 7 continues offering meds. 05/17 continue tx. not taking meds ,pending court. 05/18: refusing meds. exposing his genitalia in the skelton, licking the floor, throwing urine-soaked playing cards at staff. I spent ___20___ minutes with the patient and/or on the patient floor today, greater than?50% of which was spent counseling/coordinating care. Reason for contiued inpatient stay Substantial Risk for: harm to self, harm to others, inability to function and rapid decompensation
--- NOTE | 2022-05-19 02:07 | PC.NURSE ---
During the course of the evening shift at around 2200, Eriberto came out of his room and began to walk the hallways in his underwear. This nurse went out into the hallway and walked behind Eriberto and requested he go to his room and put on pants. Eriberto walked into his room and then walked back out. This technical proposal writer was standing in the hallway and put his arms in a stop motion and stated to Eriberto that he needed to put on pants to continue walking in the hallway. Patient then hugged this nurse in a bear Hug . This technical proposal writer advanced a few steps toward the wall and then stated thank you for the hug but please let go now , and Eriberto let go. This technical proposal writer was joined by 2 additional staff members and walked with Eriberto to his room and requested him to put on pants. Eriberto then put on pants.
--- NOTE | 2022-05-19 04:51 | PC.NURSE ---
At 0145 patient was in dayroom eating when he became upset and took two crown teeth out of his mouth and threw them in the trash. Staff was able to retrieve the teeth and they were placed with his belongings in the closet.
[2022-05-19] MEDS: diphenhydrAMINE HCL 50 MG/ML VIAL IM (14:11)
[2022-05-19] MEDS: OLANZapine 10 MG VIAL IM (14:12)
--- NOTE | 2022-05-19 14:54 | HO.PSYCHPN ---
Subjective Subjective Date of Service: 05/19/22 Reason For Visit: AH, delusional Interim History: pt seen in the [place], adequately dressed and groomed. declines interview when approached, quickly accelerating away from MD. later RN reports to MD pt throwing hot soup in milieu with peers about; medication restraint ordered. pt calm after. per staff, refusing meds and food in the past day. taking pants off in skel[place], smearing food on himself and his door. pulled crowns off of his teeth and threw them in the trash (they were retrieved and placed with his personal belongings). smelling of urine, leaving wet footprints of urine in the skelton. slept 2-3 hours last night (apparently his first sleep in several days). Mental Status Exam Mental Status Exam Narrative: walking the skelton dressed in street clothes, appears adequately groomed. not cooperative. no PMA/PMR. thoughts spare, speech droning. affect constricted, hypo-intense, non-labile. mood unknown. no SI/HI/AVH expressed. Diagnostics Vital Signs (24Hr): BMI result Body Mass Index 24.0 Labs Results: 05/07/22 13:16 05/07/22 13:16 Medications Medications Current Medications Acetaminophen (Acetaminophen 325 Mg Tablet) 650 mg PO Q6H PRN PRN Reason: Headache/Pain Mild Scale (1-3) Al Hydroxide/Mg Hydroxide (Magnesium Hydrox/Alum Hydrox 30 Ml Oral.Susp) 30 ml PO Q6H PRN PRN Reason: Heartburn/Nausea Hydroxyzine HCl (Hydroxyzine Hcl 25 Mg Tablet) 25 mg PO Q6H PRN PRN Reason: Anxiety [place] Carbonate ([place] Carbonate Er 300 Mg Tablet.Er) 600 mg PO BID [facility] Last Admin: 05/19/22 09:00 Dose: Not Given Magnesium Hydroxide (Milk Of Magnesia 30 Ml Oral.Susp) 30 ml PO DAILY PRN PRN Reason: Constipation Olanzapine (Olanzapine Odt 10 Mg Tab.Rapdis) 30 mg TRANSLINGU BEDTIME [facility] Last Admin: 05/18/22 21:34 Dose: Not Given Olanzapine (Olanzapine Odt 10 Mg Tab.Rapdis) 10 mg TRANSLINGU Q4H PRN PRN Reason: agitation Last Admin: 05/14/22 12:35 Dose: 10 mg Trazodone HCl (Trazodone Hcl 50 Mg Tablet) 50 mg PO BEDTIME PRN PRN Reason: Insomnia Allergies Allergies Allergy/AdvReac Type Severity Reaction Status Date / Time bupropion [From Wellbutrin] Allergy Mild CAUSES Unverified 03/07/20 15:04 SWOLLEN HEAD tetracycline [Tetracycline] Allergy Mild UNKNOWN Unverified 03/07/20 15:04 trifluoperazine Allergy Mild UNKNOWN Unverified 03/07/20 15:04 [From Stelazine] clozapine [From Clozaril] AdvReac Mild SEIZURES,NE Unverified 03/07/20 15:04 UTROPENIA Assessment & Plan Assessment & Plan (1) Schizoaffective disorder, bipolar type: Status: Acute Code(s): F25.0 - Schizoaffective disorder, bipolar type Plan Eriberto is a 56 y.o. male with a past medical history of schizoaffective disorder, bipolar type. He presented to [facility] on 05/07/22 due to grandiose, paranoid delusional thought content, command AH. Per pt?s gf, he had been doing well until 05/02/22, however began responding to internal stimuli and on 05/06/22 he emptied his medications down the garbage disposal. Hx of IPLOC on section 8 at [facility] in September- November 2021. Stabilized on lithium and olanzapine. Plan: Pt signed a CV, however does not appear to understand the conditional voluntary form and felt forced into doing this, states he is actually involuntary for the admission, will reject the CV. Will continue lithium 600 mg BID and olanzapine 30 mg HS, however pt says he intends to refuse. Li level 0.53 on admission. 05/08: Continue to offer meds, pt is intrusive, bizarre, makes vague statements about harming himself or others if forced to take meds, on 5 min checks 05/09: Refused to meet, declining medication 05/10: Refuses meds, not engaging in tx 05/11: Refuses meds, not engaging in tx. Pt is now a section VII. Will change olanzapine to ODT to promote adherence. 05/13: took meds last night. irritable, labile. reporting AH. 05/14 continue tx. 05/15: not consistently taking medication. hypersexual, bizarre. threatened to stab staff with scissors (which he had in his hand) and was not cooperative in returning razor to staff after shaving. 05/16 not taking meds, sect 7 continues offering meds. 05/17 continue tx. not taking meds ,pending court. 05/18: refusing meds. exposing his genitalia in the skel[place], licking the floor, throwing urine-soaked playing cards at staff. 05/19: refusing meds. ripped crowns off teeth and threw them away; smearing food on self and door; leaving urine footprints in the skel[place], smelling and dripping of the stuff. given medication restraint of zyprexa 10 and benadryl 50 IM after throwing hot soup in the milieu with peers in the area. I spent ___35___ minutes with the patient and/or on the patient floor today, greater than?50% of which was spent counseling/coordinating care. Reason for contiued inpatient stay Substantial Risk for: harm to self, harm to others, inability to function and rapid decompensation
--- NOTE | 2022-05-19 15:31 | PC.NURSE ---
Patient was in the dining area when he threw his tray with hot soup and food in the direction of other patients. The other patients were removed from the area. Attempts were made to redirect patient to calm without effect. Pt grasping the spoon and unwilling to release. Pt was tense, angry and not following any redirection. MD notified, IM Benadryl and Olanzapine ordered and given. Pt walked to his room and received IM medication without difficulty. Pt continues to not to respond to staffs redirectin, but isn't acting aggressive towards staff or peers. Patient refusing vital signs or po medications.
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
[2022-05-20] MEDS: OLANZapine 10 MG VIAL IM (17:09)
[2022-05-20] MEDS: diphenhydrAMINE HCL 50 MG/ML VIAL IM (17:09)
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
[2022-05-20 21:54] VITALS: RESP 18
[2022-05-21 08:15] VITALS: BP 143/71; PULSE 99; RESP 20; TEMP 36.8; O2SAT 96
[2022-05-21] MEDS: OLANZapine ODT 10 MG TAB.RAPDIS 30 MG TRANSLINGU (08:50)
--- NOTE | 2022-05-21 13:17 | PC.NURSE ---
Late entry: 824: Patient willing to medications. [place] notified and asked whether he could receive night time dosage of Zyprexa- patient may, per provider. Given as ordered, patient now resting, resp unlabored.
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
[2022-05-21 21:52] VITALS: RESP 18
[2022-05-22 06:00] VITALS: BP 151/95; TEMP 36.3; O2SAT 100
[2022-05-22] MEDS: Lithium Carbonate ER 300 MG TABLET.ER 600 MG PO (09:59)
[2022-05-22] MEDS: OLANZapine ODT 10 MG TAB.RAPDIS 30 MG TRANSLINGU (10:00)
--- NOTE | 2022-05-22 11:37 | PC.NURSE ---
Patient had an extra large formed BM in the shower. In addition, staff found that pt had small dried bms wrapped in paper towels on his dresser. When asked about this behavior pt reported, I had to do it to save the world.
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
[2022-05-22 20:33] VITALS: BP 158/86; PULSE 91; RESP 18; TEMP 37; O2SAT 98
--- NOTE | 2022-05-22 22:55 | PC.NURSE ---
Eriberto refused his HS medications. Patient has been intrusive with other peers and grabbing the board games on the unit and tearing them apart and throwing them in the trash. Patient has been redirected several times away from other patients and asked to return to his room as he has been disruptive and violating personal space of his peers..
--- NOTE | 2022-05-22 23:28 | PC.NURSE ---
Eriberto incontenent of urine and was wet. Patient changed into dry clothing and dry bedding. Dirty clothing was placed in laundry.
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
[2022-05-23 06:00] VITALS: RESP 16
--- NOTE | 2022-05-23 17:41 | PC.NURSE ---
Patient soiled himself while he appeared to be sleeping. The patient was changed, showered, and cleaned.
--- NOTE | 2022-05-23 23:00 | PC.NURSE ---
Eriberto refused medications this evening.
[2022-05-24 06:00] VITALS: RESP 18
--- NOTE | 2022-05-24 14:47 | HO.PSYCHPN ---
Subjective Subjective Date of Service: 05/24/22 Reason For Visit: AH, delusional Interim History: Spoke with pt, met with team. Pt says i dont need sleep for most of the time. Says his mood is great for the situation im in. When asked about med adherence, pt says he wont take any more meds forever, repeats this, echolalia. No questions or concerns. Denies SI/SIB/HI, everything is safe. Mental Status Exam Mental Status Exam Narrative: seated at his desk, dressed in street clothes, appears adequately groomed.? passively cooperative.? no PMA/PMR.? thoughts tangential, speech loud and droning.? affect constricted, hypo-intense, mod-labile.? mood unknown.? no SI/HI/AVH expressed.? paranoid delusions. Diagnostics Vital Signs (24Hr): Vital Signs - 24 hr 05/24/22 06:00 Respiratory Rate 18 BMI result Body Mass Index 24.0 Labs Results: 05/07/22 13:16 05/07/22 13:16 Medications Medications Current Medications Acetaminophen (Acetaminophen 325 Mg Tablet) 650 mg PO Q6H PRN PRN Reason: Headache/Pain Mild Scale (1-3) Al Hydroxide/Mg Hydroxide (Magnesium Hydrox/Alum Hydrox 30 Ml Oral.Susp) 30 ml PO Q6H PRN PRN Reason: Heartburn/Nausea Hydroxyzine HCl (Hydroxyzine Hcl 25 Mg Tablet) 25 mg PO Q6H PRN PRN Reason: Anxiety [place] Carbonate ([place] Carbonate Er 300 Mg Tablet.Er) 600 mg PO BID [facility] Last Admin: 05/24/22 09:35 Dose: Not Given Magnesium Hydroxide (Milk Of Magnesia 30 Ml Oral.Susp) 30 ml PO DAILY PRN PRN Reason: Constipation Olanzapine (Olanzapine Odt 10 Mg Tab.Rapdis) 10 mg TRANSLINGU Q4H PRN PRN Reason: agitation Last Admin: 05/14/22 12:35 Dose: 10 mg Olanzapine (Olanzapine Odt 10 Mg Tab.Rapdis) 30 mg TRANSLINGU DAILY [facility] Last Admin: 05/24/22 09:35 Dose: Not Given Trazodone HCl (Trazodone Hcl 50 Mg Tablet) 50 mg PO BEDTIME PRN PRN Reason: Insomnia Allergies Allergies Allergy/AdvReac Type Severity Reaction Status Date / Time bupropion [From Wellbutrin] Allergy Mild CAUSES Unverified 03/07/20 15:04 SWOLLEN HEAD tetracycline [Tetracycline] Allergy Mild UNKNOWN Unverified 03/07/20 15:04 trifluoperazine Allergy Mild UNKNOWN Unverified 03/07/20 15:04 [From Stelazine] clozapine [From Clozaril] AdvReac Mild SEIZURES,NE Unverified 03/07/20 15:04 UTROPENIA Assessment & Plan Assessment & Plan (1) Schizoaffective disorder, bipolar type: Status: Acute Code(s): F25.0 - Schizoaffective disorder, bipolar type Plan Eriberto is a 56 y.o. male with a past medical history of schizoaffective disorder, bipolar type. He presented to [facility] on 05/07/22 due to grandiose, paranoid delusional thought content, command AH. Per pt?s gf, he had been doing well until 05/02/22, however began responding to internal stimuli and on 05/06/22 he emptied his medications down the garbage disposal. Hx of IPLOC on section 8 at [facility] M3 in September- November 2021. Stabilized on lithium and olanzapine. Plan: Pt signed a CV, however does not appear to understand the conditional voluntary form and felt forced into doing this, states he is actually involuntary for the admission, will reject the CV. Will continue lithium 600 mg BID and olanzapine 30 mg HS, however pt says he intends to refuse. Li level 0.53 on admission. 05/08: Continue to offer meds, pt is intrusive, bizarre, makes vague statements about harming himself or others if forced to take meds, on 5 min checks 05/09: Refused to meet, declining medication 05/10: Refuses meds, not engaging in tx 05/11: Refuses meds, not engaging in tx. Pt is now a section VII. Will change olanzapine to ODT to promote adherence. 05/13: took meds last night. irritable, labile. reporting AH. 05/14 continue tx. 05/15: not consistently taking medication. hypersexual, bizarre. threatened to stab staff with scissors (which he had in his hand) and was not cooperative in returning razor to staff after shaving. 05/16 not taking meds, sect 7 continues offering meds. 05/17 continue tx. not taking meds ,pending court. 05/18: refusing meds. exposing his genitalia in the skelton, licking the floor, throwing urine-soaked playing cards at staff. 05/19: refusing meds. ripped crowns off teeth and threw them away; smearing food on self and door; leaving urine footprints in the skel[place], smelling and dripping of the stuff. given medication restraint of zyprexa 10 and benadryl 50 IM after throwing hot soup in the milieu with peers in the area. 05/20: no change in presentation. refusing medications, denies he has mental illness. 05/21: sedated from having taken zyprexa 30 PO mg this morning. pushed staff in order to access kitchen last night, got zyprexa and benadryl IM after. 05/22: periods of agitation. defecated in shower. pacing, trying exits. continue current mgmt. 05/23: pt refusing meds, night prior he was disruptive on unit i.e. tearing up board games, intrusive towards peers 05/24: no med changes, refusing meds I spent minutes with the patient and/or on the patient floor today, greater than?50% of which was spent counseling/coordinating care. Patient educated on: medication risk/benefits and therapeutic strategies Reason for contiued inpatient stay Substantial Risk for: inability to function, rapid decompensation and med/psych decompensation
[2022-05-25] MEDS: OLANZapine ODT 10 MG TAB.RAPDIS 30 MG TRANSLINGU (08:09)
[2022-05-25 08:30] VITALS: RESP 18
--- NOTE | 2022-05-25 14:52 | P.PNPSI_ITS ---
Subjective Subjective Date of Service: 05/25/22 Reason For Visit: AH, delusional Interim History: awake lying in bed. responds to MD with generally word dandy, a operations support representative snippet of which is the following: ...the senility and youngness of the left side of my brain, etc. with no sign of pt's stopping his logorrhea, MD excused himself from the room. per staff, pacing, lying in bed awake. refusing medications. coloring. attending art group. disorganized, thought-blocking. incontinent of urine in the milieu. ate dinner. up at 0430 with his belongings in hand, trying exit doors. sprinting the halls, walking backward, violently shaking head this morning (so much so that SW actually advised him to stop what he was doing or he might hurt himself). refused meds over weekend, wednesday was storing feces in paper towels on his shelving to save the universe. Mental Status Exam Mental Status Exam Narrative: supine in bed dressed in street clothes, appears adequately groomed. cooperative. no PMA/PMR. thoughts disorganized, speech droning and incessant. affect constricted, hypo-intense, non-labile. mood unknown. no SI/HI/AVH expressed. Diagnostics Vital Signs (24Hr): Vital Signs - 24 hr 05/25/22 08:30 Respiratory Rate 18 BMI result Body Mass Index 24.0 Labs Results: 05/07/22 13:16 05/07/22 13:16 Medications Medications Current Medications Acetaminophen (Acetaminophen 325 Mg Tablet) 650 mg PO Q6H PRN PRN Reason: Headache/Pain Mild Scale (1-3) Al Hydroxide/Mg Hydroxide (Magnesium Hydrox/Alum Hydrox 30 Ml Oral.Susp) 30 ml PO Q6H PRN PRN Reason: Heartburn/Nausea Hydroxyzine HCl (Hydroxyzine Hcl 25 Mg Tablet) 25 mg PO Q6H PRN PRN Reason: Anxiety [place] Carbonate ([place] Carbonate Er 300 Mg Tablet.Er) 600 mg PO BID [facility] Last Admin: 05/25/22 14:47 Dose: Not Given Magnesium Hydroxide (Milk Of Magnesia 30 Ml Oral.Susp) 30 ml PO DAILY PRN PRN Reason: Constipation Olanzapine (Olanzapine Odt 10 Mg Tab.Rapdis) 10 mg TRANSLINGU Q4H PRN PRN Reason: agitation Last Admin: 05/14/22 12:35 Dose: 10 mg Olanzapine (Olanzapine Odt 10 Mg Tab.Rapdis) 30 mg TRANSLINGU DAILY [facility] Last Admin: 05/25/22 08:09 Dose: 30 mg Trazodone HCl (Trazodone Hcl 50 Mg Tablet) 50 mg PO BEDTIME PRN PRN Reason: Insomnia Allergies Allergies Allergy/AdvReac Type Severity Reaction Status Date / Time bupropion [From Wellbutrin] Allergy Mild CAUSES Unverified 03/07/20 15:04 SWOLLEN HEAD tetracycline [Tetracycline] Allergy Mild UNKNOWN Unverified 03/07/20 15:04 trifluoperazine Allergy Mild UNKNOWN Unverified 03/07/20 15:04 [From Stelazine] clozapine [From Clozaril] AdvReac Mild SEIZURES,NE Unverified 03/07/20 15:04 UTROPENIA Assessment & Plan Assessment & Plan (1) Schizoaffective disorder, bipolar type: Status: Acute Code(s): F25.0 - Schizoaffective disorder, bipolar type Plan Eriberto is a 56 y.o. male with a past medical history of schizoaffective disorder, bipolar type. He presented to [facility] on 05/07/22 due to grandiose, paranoid delusional thought content, command AH. Per pt?s gf, he had been doing well until 05/02/22, however began responding to internal stimuli and on 05/06/22 he emptied his medications down the garbage disposal. Hx of IPLOC on section 8 at [facility] in September- November 2021. Stabilized on lithium and olanzapine. Plan: Pt signed a CV, however does not appear to understand the conditional voluntary form and felt forced into doing this, states he is actually involuntary for the admission, will reject the CV. Will continue lithium 600 mg BID and olanzapine 30 mg HS, however pt says he intends to refuse. Li level 0.53 on admission. 05/08: Continue to offer meds, pt is intrusive, bizarre, makes vague statements about harming himself or others if forced to take meds, on 5 min checks 05/09: Refused to meet, declining medication 05/10: Refuses meds, not engaging in tx 05/11: Refuses meds, not engaging in tx. Pt is now a section VII. Will change olanzapine to ODT to promote adherence. 05/13: took meds last night. irritable, labile. reporting AH. 05/14 continue tx. 05/15: not consistently taking medication. hypersexual, bizarre. threatened to stab staff with scissors (which he had in his hand) and was not cooperative in returning razor to staff after shaving. 05/16 not taking meds, sect 7 continues offering meds. 05/17 continue tx. not taking meds ,pending court. 05/18: refusing meds. exposing his genitalia in the skel[place], licking the floor, throwing urine-soaked playing cards at staff. 05/19: refusing meds. ripped crowns off teeth and threw them away; smearing food on self and door; leaving urine footprints in the skel[place], smelling and dripping of the stuff. given medication restraint of zyprexa 10 and benadryl 50 IM after throwing hot soup in the milieu with peers in the area. 05/20: no change in presentation. refusing medications, denies he has mental illness. 05/21: sedated from having taken zyprexa 30 PO mg this morning. pushed staff in order to access kitchen last night, got zyprexa and benadryl IM after. 05/22: periods of agitation. defecated in shower. pacing, trying exits. continue current mgmt. 05/23: pt refusing meds, night prior he was disruptive on unit i.e. tearing up board games, intrusive towards peers 05/24: no med changes, refusing meds 05/25: refusing meds. court . wednesday was storing feces wrapped in paper towels on his shelving to save the universe. incontinent of urine in the milieu, slow to change/wash. I spent ___20___ minutes with the patient and/or on the patient floor today, greater than?50% of which was spent counseling/coordinating care. Reason for contiued inpatient stay Substantial Risk for: inability to function
[2022-05-25 23:05] VITALS: RESP 18
--- NOTE | 2022-05-26 11:39 | PC.NURSE ---
Patient refused his medications. He said They are not prescribed for me. Get away from me with your chemicals. Put them up your asshole. You and every other female person in the universe.
--- NOTE | 2022-05-26 16:29 | P.PNPSI_ITS ---
Subjective Subjective Date of Service: 05/26/22 Reason For Visit: AH, delusional Interim History: lying in bed awake. loud, telegraphic speech. challenging attitude. states he has not slept the past 2-3 nights because [he is] a special person. mood good. declines further questions, turning away from MD on his bed and ignoring MD's attempts to communicate with him. per staff, iritable around limit-setting. you are all lesbians trying to take over the world. had zyprexa 30 yesterday morning, refusing lithium. appears to be sleeping most of the night, despite his report to the contrary (but he does appear to lie still in bed, awake). Mental Status Exam Mental Status Exam Narrative: supine in bed dressed in street clothes, appears adequately groomed. minimally cooperative. no PMA/PMR. thoughts disorganized, speech droning. affect constricted, hypo-intense, non-labile. mood good. no SI/HI/AVH expressed. Diagnostics Vital Signs (24Hr): Vital Signs - 24 hr 05/25/22 23:05 Respiratory Rate 18 BMI result Body Mass Index 24.0 Labs Results: 05/07/22 13:16 05/07/22 13:16 Medications Medications Current Medications Acetaminophen (Acetaminophen 325 Mg Tablet) 650 mg PO Q6H PRN PRN Reason: Headache/Pain Mild Scale (1-3) Al Hydroxide/Mg Hydroxide (Magnesium Hydrox/Alum Hydrox 30 Ml Oral.Susp) 30 ml PO Q6H PRN PRN Reason: Heartburn/Nausea Hydroxyzine HCl (Hydroxyzine Hcl 25 Mg Tablet) 25 mg PO Q6H PRN PRN Reason: Anxiety [place] Carbonate ([place] Carbonate Er 300 Mg Tablet.Er) 600 mg PO BID [facility] Last Admin: 05/26/22 11:36 Dose: Not Given Magnesium Hydroxide (Milk Of Magnesia 30 Ml Oral.Susp) 30 ml PO DAILY PRN PRN Reason: Constipation Olanzapine (Olanzapine Odt 10 Mg Tab.Rapdis) 10 mg TRANSLINGU Q4H PRN PRN Reason: agitation Last Admin: 05/14/22 12:35 Dose: 10 mg Olanzapine (Olanzapine Odt 10 Mg Tab.Rapdis) 30 mg TRANSLINGU DAILY [facility] Last Admin: 05/26/22 11:36 Dose: Not Given Trazodone HCl (Trazodone Hcl 50 Mg Tablet) 50 mg PO BEDTIME PRN PRN Reason: Insomnia Allergies Allergies Allergy/AdvReac Type Severity Reaction Status Date / Time bupropion [From Wellbutrin] Allergy Mild CAUSES Unverified 03/07/20 15:04 SWOLLEN HEAD tetracycline [Tetracycline] Allergy Mild UNKNOWN Unverified 03/07/20 15:04 trifluoperazine Allergy Mild UNKNOWN Unverified 03/07/20 15:04 [From Stelazine] clozapine [From Clozaril] AdvReac Mild SEIZURES,NE Unverified 03/07/20 15:04 UTROPENIA Assessment & Plan Assessment & Plan (1) Schizoaffective disorder, bipolar type: Status: Acute Code(s): F25.0 - Schizoaffective disorder, bipolar type Plan Eriberto is a 56 y.o. male with a past medical history of schizoaffective disorde r, bipolar type. He presented to [facility] on 05/07/22 due to grandiose, paranoid delusional thought content, command AH. Per pt?s gf, he had been doing well until 05/02/22, however began responding to internal stimuli and on 05/06/22 he emptied his medications down the garbage disposal. Hx of IPLOC on section 8 at [facility] M[facility] in September- November 2021. Stabilized on lithium and olanzapine. Plan: Pt signed a CV, however does not appear to understand the conditional voluntary form and felt forced into doing this, states he is actually involuntary for the admission, will reject the CV. Will continue lithium 600 mg BID and olanzapine 30 mg HS, however pt says he intends to refuse. Li level 0.53 on admission. 05/08: Continue to offer meds, pt is intrusive, bizarre, makes vague statements about harming himself or others if forced to take meds, on 5 min checks 05/09: Refused to meet, declining medication 05/10: Refuses meds, not engaging in tx 05/11: Refuses meds, not engaging in tx. Pt is now a section VII. Will change olanzapine to ODT to promote adherence. 05/13: took meds last night. irritable, labile. reporting AH. 05/14 continue tx. 05/15: not consistently taking medication. hypersexual, bizarre. threatened to stab staff with scissors (which he had in his hand) and was not cooperative in returning razor to staff after shaving. 05/16 not taking meds, sect 7 continues offering meds. 05/17 continue tx. not taking meds ,pending court. 05/18: refusing meds. exposing his genitalia in the skel[place], licking the floor, throwing urine-soaked playing cards at staff. 05/19: refusing meds. ripped crowns off teeth and threw them away; smearing food on self and door; leaving urine footprints in the skel[place], smelling and dripping of the stuff. given medication restraint of zyprexa 10 and benadryl 50 IM after throwing hot soup in the milieu with peers in the area. 05/20: no change in presentation. refusing medications, denies he has mental illness. 05/21: sedated from having taken zyprexa 30 PO mg this morning. pushed staff in order to access kitchen last night, got zyprexa and benadryl IM after. 05/22: periods of agitation. defecated in shower. pacing, trying exits. continue current mgmt. 05/23: pt refusing meds, night prior he was disruptive on unit i.e. tearing up board games, intrusive towards peers 05/24: no med changes, refusing meds 05/25: refusing meds. court . wednesday was storing feces wrapped in paper towels on his shelving to save the universe. incontinent of urine in the milieu, slow to change/wash. 05/26: took zyprexa yesterday morning, refusing lithium. irritable. you are all lesbians trying to take over the world. I spent ___20___ minutes with the patient and/or on the patient floor today, greater than?50% of which was spent counseling/coordinating care. Reason for contiued inpatient stay Substantial Risk for: harm to self, harm to others, inability to function and rapid decompensation
--- NOTE | 2022-05-27 14:55 | HO.PSYCHPN ---
Subjective Subjective Date of Service: 05/27/22 Reason For Visit: AH, delusional Interim History: pt seen variably lying supine in bed or walking the halls or standing at the nursing station and making very loud demands of staff. MD attempted to engage pt in the skel[place] but pt ignored MD and continued walking past. per staff, refusing medications. said to staff trying to give him meds yesterday, shove it up your ass! toward women attempting to interact with him, approaching him in his room: get out, bitch. you're a dog. get on your knees. pt informed he could not have razor for shave, verbally aggressive in response. spending a lot of time in bed, unclear if he is sleeping day or night. playing cards by himself. Mental Status Exam Mental Status Exam Narrative: walking the skelton dressed in street clothes, appears adequately groomed. not cooperative. no PMA/PMR. thoughts spare, speech droning. affect constricted, hypo-intense, mod-labile. mood unknown. no SI/HI/AVH expressed. Diagnostics Vital Signs (24Hr): BMI result Body Mass Index 24.0 Labs Results: 05/07/22 13:16 05/07/22 13:16 Medications Medications Current Medications Acetaminophen (Acetaminophen 325 Mg Tablet) 650 mg PO Q6H PRN PRN Reason: Headache/Pain Mild Scale (1-3) Al Hydroxide/Mg Hydroxide (Magnesium Hydrox/Alum Hydrox 30 Ml Oral.Susp) 30 ml PO Q6H PRN PRN Reason: Heartburn/Nausea Hydroxyzine HCl (Hydroxyzine Hcl 25 Mg Tablet) 25 mg PO Q6H PRN PRN Reason: Anxiety [place] Carbonate ([place] Carbonate Er 300 Mg Tablet.Er) 600 mg PO BID [facility] Last Admin: 05/27/22 09:00 Dose: Not Given Magnesium Hydroxide (Milk Of Magnesia 30 Ml Oral.Susp) 30 ml PO DAILY PRN PRN Reason: Constipation Olanzapine (Olanzapine Odt 10 Mg Tab.Rapdis) 10 mg TRANSLINGU Q4H PRN PRN Reason: agitation Last Admin: 05/14/22 12:35 Dose: 10 mg Olanzapine (Olanzapine Odt 10 Mg Tab.Rapdis) 30 mg TRANSLINGU DAILY [facility] Last Admin: 05/27/22 09:00 Dose: Not Given Trazodone HCl (Trazodone Hcl 50 Mg Tablet) 50 mg PO BEDTIME PRN PRN Reason: Insomnia Allergies Allergies Allergy/AdvReac Type Severity Reaction Status Date / Time bupropion [From Wellbutrin] Allergy Mild CAUSES Unverified 03/07/20 15:04 SWOLLEN HEAD tetracycline [Tetracycline] Allergy Mild UNKNOWN Unverified 03/07/20 15:04 trifluoperazine Allergy Mild UNKNOWN Unverified 03/07/20 15:04 [From Stelazine] clozapine [From Clozaril] AdvReac Mild SEIZURES,NE Unverified 03/07/20 15:04 UTROPENIA Assessment & Plan Assessment & Plan (1) Schizoaffective disorder, bipolar type: Status: Acute Code(s): F25.0 - Schizoaffective disorder, bipolar type Plan Eriberto is a 56 y.o. male with a past medical history of schizoaffective disorder, bipolar type. He presented to [facility] on 05/07/22 due to grandiose, paranoid delusional thought content, command AH. Per pt?s gf, he had been doing well until 05/02/22, however began responding to internal stimuli and on 05/06/22 he emptied his medications down the garbage disposal. Hx of IPLOC on section 8 at [facility] M3 in September- November 2021. Stabilized on lithium and olanzapine. Plan: Pt signed a CV, however does not appear to understand the conditional voluntary form and felt forced into doing this, states he is actually involuntary for the admission, will reject the CV. Will continue lithium 600 mg BID and olanzapine 30 mg HS, however pt says he intends to refuse. Li level 0.53 on admission. 05/08: Continue to offer meds, pt is intrusive, bizarre, makes vague statements about harming himself or others if forced to take meds, on 5 min checks 05/09: Refused to meet, declining medication 05/10: Refuses meds, not engaging in tx 05/11: Refuses meds, not engaging in tx. Pt is now a section VII. Will change olanzapine to ODT to promote adherence. 05/13: took meds last night. irritable, labile. reporting AH. 05/14 continue tx. 05/15: not consistently taking medication. hypersexual, bizarre. threatened to stab staff with scissors (which he had in his hand) and was not cooperative in returning razor to staff after shaving. 05/16 not taking meds, sect 7 continues offering meds. 05/17 continue tx. not taking meds ,pending court. 05/18: refusing meds. exposing his genitalia in the skel[place], licking the floor, throwing urine-soaked playing cards at staff. 05/19: refusing meds. ripped crowns off teeth and threw them away; smearing food on self and door; leaving urine footprints in the skelton, smelling and dripping of the stuff. given medication restraint of zyprexa 10 and benadryl 50 IM after throwing hot soup in the milieu with peers in the area. 05/20: no change in presentation. refusing medications, denies he has mental illness. 05/21: sedated from having taken zyprexa 30 PO mg this morning. pushed staff in order to access kitchen last night, got zyprexa and benadryl IM after. 05/22: periods of agitation. defecated in shower. pacing, trying exits. continue current mgmt. 05/23: pt refusing meds, night prior he was disruptive on unit i.e. tearing up board games, intrusive towards peers 05/24: no med changes, refusing meds 05/25: refusing meds. court . wednesday was storing feces wrapped in paper towels on his shelving to save the universe. incontinent of urine in the milieu, slow to change/wash. 05/26: took zyprexa yesterday morning, refusing lithium. irritable. you are all lesbians trying to take over the world. 05/27: refusing meds. hearing tomorrow. to staff trying to administer meds: shove it up your ass! to female staff attempting to provide care: get out, bitch. you're a dog. get on your knees. [id number] declined mtg with TERA. I spent ___20___ minutes with the patient and/or on the patient floor today, greater than?50% of which was spent counseling/coordinating care. Reason for contiued inpatient stay Substantial Risk for: harm to self, harm to others, inability to function and rapid decompensation
[2022-05-27] MEDS: OLANZapine ODT 10 MG TAB.RAPDIS 30 MG TRANSLINGU (18:00)
--- NOTE | 2022-05-27 18:29 | PC.NURSE ---
Patient noted to have a 2.5cm x 2.5cm cyst like area on his left shoulder blade. Area is raised and soft to touch. Pt didn't appear to have pain, but is difficult to assess. Area seen when pt took off clothes and ran down the hallway. Pt wouldn't let this writter assess the area. No drainage noted.
--- NOTE | 2022-05-27 19:41 | PC.NURSE ---
Patient entered day room common area dropped his pants and started to masturbate. Patient escorted to room by staff without resistance. Dr. Fernandez notified, medication orders obtained.
[2022-05-27] MEDS: diphenhydrAMINE HCL 50 MG/ML VIAL IM (19:50)
[2022-05-27] MEDS: OLANZapine 10 MG VIAL IM (19:50)
[2022-05-27 20:00] VITALS: BP 124/73; PULSE 74; RESP 16; TEMP 36.1; O2SAT 96
[2022-05-27] MEDS: Lithium Carbonate ER 300 MG TABLET.ER 600 MG PO (20:11)
[2022-05-27] MEDS: hydrOXYzine HCL 25 MG TABLET PO (20:11)
[2022-05-27] MEDS: traZODone HCL 50 MG TABLET PO (20:11)
[2022-05-27 20:15] VITALS: BP 114/56; PULSE 71; RESP 16; TEMP 36.1; O2SAT 98
--- NOTE | 2022-05-27 23:20 | PC.NURSE ---
Addendum entered by Lora Mathew RN 05/28/22 01:17: Pt seen by hospitalist Dr. Wu at 20:30. Original Note: Pt accepted 50mg Benadryl, 10mg Zyprexa IM at 19:50 without resistance. Pt encouraged to rest and stay in his room to allow for medication to work but was unable to sit still. Stated to RN give me pills, give me injections, kill me. I'm tired of the way my mind is thinking . Pt was given scheduled Lamkin and prn Trazodone, Hydroxyzine at 20:15. Pt appeared to be sleeping by 2100.
[2022-05-28] MEDS: Lithium Carbonate ER 300 MG TABLET.ER 600 MG PO (11:34)
[2022-05-28] MEDS: OLANZapine ODT 10 MG TAB.RAPDIS 30 MG TRANSLINGU (11:34)
--- NOTE | 2022-05-28 15:44 | P.PNPSI_ITS ---
Subjective Subjective Date of Service: 05/28/22 Reason For Visit: AH, delusional Interim History: pt seen in morning. lying in bed facing away from MD. MD attempts to speak with pt several times over 20-derrell seconds. pt finally responds, not turning to face MD, whatever you say, you can shove it up your ass. notes this is not civil discourse and informs pt interview may not proceed with this sort of dialogue, removing himself from the room. per staff, bizarre, pressured speech. redirected from taking food from other patients' trays and throwing it away. poured bottle of water on the floor, urinated up and down the hallway, said get out, bitch! to staff attempting to check on him in his room, grabbed checks sheet from and ripped it up, dropped pants and masturbated in the milieu. later c/o SI and asked for meds; he was given sleeping meds and appeared to rest after. committed and ordered medications in court. Mental Status Exam Mental Status Exam Narrative: lying in bed facing away from MD. not cooperative. no PMA/PMR. thoughts spare, speech droning. mood unknown. no SI/HI/AVH expressed. Diagnostics Vital Signs (24Hr): Vital Signs - 24 hr 05/27/22 20:00 05/27/22 20:15 Temperature 96.9 F 96.9 F Pulse Rate 74 71 Respiratory Rate 16 16 Blood Pressure 124/73 114/56 L Pulse Oximetry 96 98 Oxygen Delivery Method Room Air Room Air BMI result Body Mass Index 24.0 Labs Results: 05/07/22 13:16 05/07/22 13:16 Medications Medications Current Medications Acetaminophen (Acetaminophen 325 Mg Tablet) 650 mg PO Q6H PRN PRN Reason: Headache/Pain Mild Scale (1-3) Al Hydroxide/Mg Hydroxide (Magnesium Hydrox/Alum Hydrox 30 Ml Oral.Susp) 30 ml PO Q6H PRN PRN Reason: Heartburn/Nausea Hydroxyzine HCl (Hydroxyzine Hcl 25 Mg Tablet) 25 mg PO Q6H PRN PRN Reason: Anxiety Last Admin: 05/27/22 20:11 Dose: 25 mg [place] Carbonate ([place] Carbonate Er 300 Mg Tablet.Er) 600 mg PO BID [facility] Last Admin: 05/28/22 11:34 Dose: 600 mg Magnesium Hydroxide (Milk Of Magnesia 30 Ml Oral.Susp) 30 ml PO DAILY PRN PRN Reason: Constipation Olanzapine (Olanzapine Odt 10 Mg Tab.Rapdis) 10 mg TRANSLINGU Q4H PRN PRN Reason: agitation Last Admin: 05/14/22 12:35 Dose: 10 mg Olanzapine (Olanzapine Odt 10 Mg Tab.Rapdis) 30 mg TRANSLINGU DAILY [facility] Last Admin: 05/28/22 11:34 Dose: 30 mg Trazodone HCl (Trazodone Hcl 50 Mg Tablet) 50 mg PO BEDTIME PRN PRN Reason: Insomnia Last Admin: 05/27/22 20:11 Dose: 50 mg Allergies Allergies Allergy/AdvReac Type Severity Reaction Status Date / Time bupropion [From Wellbutrin] Allergy Mild CAUSES Unverified 03/07/20 15:04 SWOLLEN HEAD tetracycline [Tetracycline] Allergy Mild UNKNOWN Unverified 03/07/20 15:04 trifluoperazine Allergy Mild UNKNOWN Unverified 03/07/20 15:04 [From Stelazine] clozapine [From Clozaril] AdvReac Mild SEIZURES,NE Unverified 03/07/20 15:04 UTROPENIA Assessment & Plan Assessment & Plan (1) Schizoaffective disorder, bipolar type: Status: Acute Code(s): F25.0 - Schizoaffective disorder, bipolar type Plan Eriberto is a 56 y.o. male with a past medical history of schizoaffective disorder, bipolar type. He presented to [facility] on 05/07/22 due to grandiose, paranoid delusional thought content, command AH. Per pt?s gf, he had been doing well until 05/02/22, however began responding to internal stimuli and on 05/06/22 he emptied his medications down the garbage disposal. Hx of IPLOC on section 8 at [facility] in September- November 2021. Stabilized on lithium and olanzapine. Plan: Pt signed a CV, however does not appear to understand the conditional voluntary form and felt forced into doing this, states he is actually involuntary for the admission, will reject the CV. Will continue lithium 600 mg BID and olanzapine 30 mg HS, however pt says he intends to refuse. Li level 0.53 on admission. 05/08: Continue to offer meds, pt is intrusive, bizarre, makes vague statements about harming himself or others if forced to take meds, on 5 min checks 05/09: Refused to meet, declining medication 05/10: Refuses meds, not engaging in tx 05/11: Refuses meds, not engaging in tx. Pt is now a section VII. Will change olanzapine to ODT to promote adherence. 05/13: took meds last night. irritable, labile. reporting AH. 05/14 continue tx. 05/15: not consistently taking medication. hypersexual, bizarre. threatened to stab staff with scissors (which he had in his hand) and was not cooperative in returning razor to staff after shaving. 05/16 not taking meds, sect 7 continues offering meds. 05/17 continue tx. not taking meds ,pending court. 05/18: refusing meds. exposing his genitalia in the [place]el[place], licking the floor, throwing urine-soaked playing cards at staff. 05/19: refusing meds. ripped crowns off teeth and threw them away; smearing food on self and door; leaving urine footprints in the skel[place], smelling and dripping of the stuff. given medication restraint of zyprexa 10 and benadryl 50 IM after throwing hot soup in the milieu with peers in the area. 05/20: no change in presentation. refusing medications, denies he has mental illness. 05/21: sedated from having taken zyprexa 30 PO mg this morning. pushed staff in order to access kitchen last night, got zyprexa and benadryl IM after. 05/22: periods of agitation. defecated in shower. pacing, trying exits. continue current mgmt. 05/23: pt refusing meds, night prior he was disruptive on unit i.e. tearing up board games, intrusive towards peers 05/24: no med changes, refusing meds 05/25: refusing meds. court . wednesday was storing feces wrapped in paper towels on his shelving to save the universe. incontinent of urine in the milieu, slow to change/wash. 05/26: took zyprexa yesterday morning, refusing lithium. irritable. you are all lesbians trying to take over the world. 05/27: refusing meds. hearing tomorrow. to staff trying to administer meds: shove it up your ass! to female staff attempting to provide care: get out, bitch. you're a dog. get on your knees. [id number] declined mtg with TERA. 05/28: taking food from others' trays and throwing it away, masturbating in milieu, calling female staff bitch, ripped up checks sheet from off of [employer]'s clipboard, urinating on floor, pouring bottle of water onto floor. committed and ordered medication. I spent __75____ minutes with the patient and/or on the patient floor today, greater than?50% of which was spent counseling/coordinating care. Reason for contiued inpatient stay Substantial Risk for: harm to self, harm to others, inability to function and rapid decompensation
--- NOTE | 2022-05-28 17:51 | PC.NURSE ---
Per staff report, Peace had assisted patient in kitchen. Eriberto was moving toward the kitchen in effort to enter room. Staff shut door before Eriberto could enter. Eriberto then pushed into staff Peace who was standing in day room. He then went to table occupied by peers took a milk carton from the table and drank it. Proceeded to sit in close proximity at occupied table. Verbal request for patient to go to room, this sheet writer placed hand on patients shoulder to guide him. Patient then demanded 2 staff simultaneously physically escort him to his room. Requested again patient go to his room, informed him demands would not be met, upon which patient grabbed this writers arm several times in effort to provide himself physical escort. Stated he was GOD. Got up then ambulated independently into his room. Dr. Toledo notified via tiger text, requested medication orders.
[2022-05-28] MEDS: diphenhydrAMINE HCL 50 MG/ML VIAL IM (18:30)
[2022-05-28] MEDS: OLANZapine 10 MG VIAL IM ×2 (18:36→22:19)
--- NOTE | 2022-05-28 18:51 | PM.EVENT ---
Event Note Date of Service: 05/28/22 Event Note: due to psychiatrist not being in the hospital, hospitalist was called to assess s/p chemical restraint with olanzapine/diphenhydramine given for pt with uncontrlled violence/agitation unresponsive to behavioral measures. pt alert, awake, normal breathing + circulation
[2022-05-28 22:24] VITALS: RESP 12
[2022-05-29 08:46] VITALS: RESP 17
--- NOTE | 2022-05-29 11:04 | HO.PSYCHPN ---
Subjective Subjective Date of Service: 05/29/22 Reason For Visit: AH, delusional Subjective Notes: Section 8 Interim History: Pt in bed, minimally cooperative, declined to speak with this health technical writer. Pt continues to run up and down skelton at times, reports he is saving the world, randomly tries to take beverages from other pts. Pt not taking oral medications just yet and receiving IM back up. Continues on one to one for safety. Medication Compliance: Yes Side effects from medications: No Review of Systems Review of Systems Yes Other ( ) Reports Abnormal speech present Mental Status Exam Mental Status Exam Narrative: lying in bed facing away from MD. not cooperative. no PMA/PMR. thoughts spare, speech droning. mood unknown. no SI/HI/AVH expressed. Diagnostics Vital Signs (24Hr): Vital Signs - 24 hr 05/29/22 08:46 05/29/22 22:27 Respiratory Rate 17 18 BMI result Body Mass Index 24.0 Labs Results: 05/07/22 13:16 05/07/22 13:16 Medications Medications Current Medications Acetaminophen (Acetaminophen 325 Mg Tablet) 650 mg PO Q6H PRN PRN Reason: Headache/Pain Mild Scale (1-3) Al Hydroxide/Mg Hydroxide (Magnesium Hydrox/Alum Hydrox 30 Ml Oral.Susp) 30 ml PO Q6H PRN PRN Reason: Heartburn/Nausea Hydroxyzine HCl (Hydroxyzine Hcl 25 Mg Tablet) 25 mg PO Q6H PRN PRN Reason: Anxiety Last Admin: 05/27/22 20:11 Dose: 25 mg [place] Carbonate ([place] Carbonate Er 300 Mg Tablet.Er) 600 mg PO BID [facility] Last Admin: 05/29/22 10:15 Dose: Not Given Magnesium Hydroxide (Milk Of Magnesia 30 Ml Oral.Susp) 30 ml PO DAILY PRN PRN Reason: Constipation Midazolam HCl (Midazolam Hcl/Pf 2 Mg/2 Ml Vial) 2 mg IM BID PRN PRN Reason: refusal of lithium Olanzapine (Olanzapine Odt 10 Mg Tab.Rapdis) 10 mg TRANSLINGU Q4H PRN PRN Reason: agitation Last Admin: 05/14/22 12:35 Dose: 10 mg Olanzapine (Olanzapine Odt 10 Mg Tab.Rapdis) 30 mg TRANSLINGU BEDTIME [facility] Last Admin: 05/28/22 22:03 Dose: Not Given Olanzapine (Olanzapine 10 Mg Vial) 10 mg IM BEDTIME PRN PRN Reason: refusal of PO zyprexa, per debra Last Admin: 05/29/22 22:26 Dose: 10 mg Trazodone HCl (Trazodone Hcl 50 Mg Tablet) 50 mg PO BEDTIME PRN PRN Reason: Insomnia Last Admin: 05/27/22 20:11 Dose: 50 mg Allergies Allergies Allergy/AdvReac Type Severity Reaction Status Date / Time bupropion [From Wellbutrin] Allergy Mild CAUSES Unverified 03/07/20 15:04 SWOLLEN HEAD tetracycline [Tetracycline] Allergy Mild UNKNOWN Unverified 03/07/20 15:04 trifluoperazine Allergy Mild UNKNOWN Unverified 03/07/20 15:04 [From Stelazine] clozapine [From Clozaril] AdvReac Mild SEIZURES,NE Unverified 03/07/20 15:04 UTROPENIA Assessment & Plan Assessment & Plan (1) Schizoaffective disorder, bipolar type: Status: Acute Code(s): F25.0 - Schizoaffective disorder, bipolar type Plan Eriberto is a 56 y.o. male with a past medical history of schizoaffective disorder, bipolar type. He presented to [facility] on 05/07/22 due to grandiose, paranoid delusional thought content, command AH. Per pt?s gf, he had been doing well until 05/02/22, however began responding to internal stimuli and on 05/06/22 he emptied his medications down the garbage disposal. Hx of IPLOC on section 8 at [facility] in September- November 2021. Stabilized on lithium and olanzapine. Plan: Pt signed a CV, however does not appear to understand the conditional voluntary form and felt forced into doing this, states he is actually involuntary for the admission, will reject the CV. Will continue lithium 600 mg BID and olanzapine 30 mg HS, however pt says he intends to refuse. Li level 0.53 on admission. 05/08: Continue to offer meds, pt is intrusive, bizarre, makes vague statements about harming himself or others if forced to take meds, on 5 min checks 05/09: Refused to meet, declining medication 05/10: Refuses meds, not engaging in tx 05/11: Refuses meds, not engaging in tx. Pt is now a section VII. Will change olanzapine to ODT to promote adherence. 05/13: took meds last night. irritable, labile. reporting AH. 05/14 continue tx. 05/15: not consistently taking medication. hypersexual, bizarre. threatened to stab staff with scissors (which he had in his hand) and was not cooperative in returning razor to staff after shaving. 05/16 not taking meds, sect 7 continues offering meds. 05/17 continue tx. not taking meds ,pending court. 05/18: refusing meds. exposing his genitalia in the skel[place], licking the floor, throwing urine-soaked playing cards at staff. 05/19: refusing meds. ripped crowns off teeth and threw them away; smearing food on self and door; leaving urine footprints in the skel[place], smelling and dripping of the stuff. given medication restraint of zyprexa 10 and benadryl 50 IM after throwing hot soup in the milieu with peers in the area. 05/20: no change in presentation. refusing medications, denies he has mental illness. 05/21: sedated from having taken zyprexa 30 PO mg this morning. pushed staff in order to access kitchen last night, got zyprexa and benadryl IM after. 05/22: periods of agitation. defecated in shower. pacing, trying exits. continue current mgmt. 05/23: pt refusing meds, night prior he was disruptive on unit i.e. tearing up board games, intrusive towards peers 05/24: no med changes, refusing meds 05/25: refusing meds. court . wednesday was storing feces wrapped in paper towels on his shelving to save the universe. incontinent of urine in the milieu, slow to change/wash. 05/26: took zyprexa yesterday morning, refusing lithium. irritable. you are all lesbians trying to take over the world. 05/27: refusing meds. hearing tomorrow. to staff trying to administer meds: shove it up your ass! to female staff attempting to provide care: get out, bitch. you're a dog. get on your knees. [id number] declined mtg with TERA. 05/28: taking food from others' trays and throwing it away, masturbating in milieu, calling female staff bitch, ripped up checks sheet from off of NA's clipboard, urinating on floor, pouring bottle of water onto floor. committed and ordered medication. 05/29 continue tx, back up IM per court order. I spent minutes with the patient and/or on the patient floor today, greater than?50% of which was spent counseling/coordinating care. Reason for contiued inpatient stay Substantial Risk for: harm to others and inability to function
[2022-05-29] MEDS: OLANZapine 10 MG VIAL IM (22:26)
[2022-05-29 22:27] VITALS: RESP 18
[2022-05-30 09:36] VITALS: RESP 18
[2022-05-30] MEDS: OLANZapine ODT 10 MG TAB.RAPDIS TRANSLINGU (09:53)
[2022-05-30] MEDS: Lithium Carbonate ER 300 MG TABLET.ER 600 MG PO (09:53)
--- NOTE | 2022-05-30 10:10 | PC.NURSE ---
Per report, patient easily agitated, swatting at people earlier this morning. Currently, variably agitated, yelling and occasionally swearing at staff. Patient accepted AM medications and PRN zyprexa for agitation. Reviewed rules of the unit with patient.
--- NOTE | 2022-05-30 14:10 | HO.PSYCHPN ---
Subjective Subjective Date of Service: 05/30/22 Reason For Visit: AH, delusional Subjective Notes: Shetty Order and Section 8 Medical Problems Affecting Mental Status: No Interim History: Met with patient. Reviewed chart. Discussed with Nursing. Overall noted on Shetty order now and olanzapine ordered and has received some the last day or so. Had a restraint on 05/28/2022. Remains on one-to-one observation. Making lots of comments regarding women, poor personal space. Partial medication adherence. Today has been observed to be pacing at times, however playing cards with staff members. When tried to engage patient he started talking about females, the [employer], masturbation and women taking over the world. He was very clear he did not want to engage with law writer and therefore interview very short Medication Compliance: Intermittent Side effects from medications: No Attending Groups: Intermittent Review of Systems Acute medical concerns: No Review of Systems Review of Systems Yes Unobtainable due to mental status Mental Status Exam Mental Status Exam Narrative: Appropriately dressed. Pacing at times. Also playing cards at times. Intense during engagement. Irritable. Unable to clearly evaluate SI or HI. Does present as paranoid and delusional. Insight and judgment poor Diagnostics Vital Signs (24Hr): Vital Signs - 24 hr 05/29/22 22:27 05/30/22 09:36 Respiratory Rate 18 18 BMI result Body Mass Index 24.0 Labs Results: 05/07/22 13:16 05/07/22 13:16 Medications Medications Current Medications Acetaminophen (Acetaminophen 325 Mg Tablet) 650 mg PO Q6H PRN PRN Reason: Headache/Pain Mild Scale (1-3) Al Hydroxide/Mg Hydroxide (Magnesium Hydrox/Alum Hydrox 30 Ml Oral.Susp) 30 ml PO Q6H PRN PRN Reason: Heartburn/Nausea Haloperidol (Haloperidol 5 Mg Tablet) 5 mg PO QID PRN PRN Reason: psychosis, agitati [place] Carbonate ([place] Carbonate Er 300 Mg Tablet.Er) 600 mg PO BID ANJUM Last Admin: 05/30/22 09:53 Dose: 600 mg Lorazepam (Lorazepam 1 Mg Tablet) 2 mg PO QID PRN PRN Reason: Anxiety Magnesium Hydroxide (Milk Of Magnesia 30 Ml Oral.Susp) 30 ml PO DAILY PRN PRN Reason: Constipation Midazolam HCl (Midazolam Hcl/Pf 2 Mg/2 Ml Vial) 2 mg IM BID PRN PRN Reason: refusal of lithium Olanzapine (Olanzapine Odt 10 Mg Tab.Rapdis) 30 mg TRANSLINGU BEDTIME ANJUM Last Admin: 05/29/22 22:28 Dose: Not Given Olanzapine (Olanzapine 10 Mg Vial) 10 mg IM BID PRN PRN Reason: refusal of PO zyprexa, per debra Olanzapine (Olanzapine Odt 10 Mg Tab.Rapdis) 10 mg TRANSLINGU DAILY ANJUM Trazodone HCl (Trazodone Hcl 50 Mg Tablet) 50 mg PO BEDTIME PRN PRN Reason: Insomnia Last Admin: 05/27/22 20:11 Dose: 50 mg Allergies Allergies Allergy/AdvReac Type Severity Reaction Status Date / Time bupropion [From Wellbutrin] Allergy Mild CAUSES Unverified 03/07/20 15:04 SWOLLEN HEAD tetracycline [Tetracycline] Allergy Mild UNKNOWN Unverified 03/07/20 15:04 trifluoperazine Allergy Mild UNKNOWN Unverified 03/07/20 15:04 [From Stelazine] clozapine [From Clozaril] AdvReac Mild SEIZURES,NE Unverified 03/07/20 15:04 UTROPENIA Assessment & Plan Assessment & Plan (1) Schizoaffective disorder, bipolar type: Status: Acute Code(s): F25.0 - Schizoaffective disorder, bipolar type Plan Eriberto is a 56 y.o. male with a past medical history of schizoaffective disorder, bipolar type. He presented to [facility] on 05/07/22 due to grandiose, paranoid delusional thought content, command AH. Per pt?s gf, he had been doing well until 05/02/22, however began responding to internal stimuli and on 05/06/22 he emptied his medications down the garbage disposal. Hx of IPLOC on section 8 at [facility] M3 in September- November 2021. Stabilized on lithium and olanzapine. Plan: Pt signed a CV, however does not appear to understand the conditional voluntary form and felt forced into doing this, states he is actually involuntary for the admission, will reject the CV. Will continue lithium 600 mg BID and olanzapine 30 mg HS, however pt says he intends to refuse. Li level 0.53 on admission. 05/08: Continue to offer meds, pt is intrusive, bizarre, makes vague statements about harming himself or others if forced to take meds, on 5 min checks 05/09: Refused to meet, declining medication 05/10: Refuses meds, not engaging in tx 05/11: Refuses meds, not engaging in tx. Pt is now a section VII. Will change olanzapine to ODT to promote adherence. 05/13: took meds last night. irritable, labile. reporting AH. 05/14 continue tx. 05/15: not consistently taking medication. hypersexual, bizarre. threatened to stab staff with scissors (which he had in his hand) and was not cooperative in returning razor to staff after shaving. 05/16 not taking meds, sect 7 continues offering meds. 05/17 continue tx. not taking meds ,pending court. 05/18: refusing meds. exposing his genitalia in the skelton, licking the floor, throwing urine-soaked playing cards at staff. 05/19: refusing meds. ripped crowns off teeth and threw them away; smearing food on self and door; leaving urine footprints in the skelton, smelling and dripping of the stuff. given medication restraint of zyprexa 10 and benadryl 50 IM after throwing hot soup in the milieu with peers in the area. 05/20: no change in presentation. refusing medications, denies he has mental illness. 05/21: sedated from having taken zyprexa 30 PO mg this morning. pushed staff in order to access kitchen last night, got zyprexa and benadryl IM after. 2: periods of agitation. defecated in shower. pacing, trying exits. continue current mgmt. 05/23: pt refusing meds, night prior he was disruptive on unit i.e. tearing up board games, intrusive towards peers 05/24: no med changes, refusing meds 05/25: refusing meds. court . wednesday was storing feces wrapped in paper towels on his shelving to save the universe. incontinent of urine in the milieu, slow to change/wash. 05/26: took zyprexa yesterday morning, refusing lithium. irritable. you are all lesbians trying to take over the world. 05/27: refusing meds. hearing tomorrow. to staff trying to administer meds: shove it up your ass! to female staff attempting to provide care: get out, bitch. you're a dog. get on your knees. [id number] declined mtg with TERA. 05/28: taking food from others' trays and throwing it away, masturbating in milieu, calling female staff bitch, ripped up checks sheet from off of [employer]'s clipboard, urinating on floor, pouring bottle of water onto floor. committed and ordered medication. 05/29 continue tx, back up IM per court order. 05/30/2022: Has only received olanzapine for the last 1-2 days, therefore unable to clearly evaluate efficacy. Given intensity of behaviors and interactions and psychosis, Will add olanzapine in the morning time i.e. 10 mg morning and 30 mg at bedtime with 10 mg IM backup morning and bedtime. Haldol as needed. I spent minutes with the patient and/or on the patient floor today, greater than?50% of which was spent counseling/coordinating care. Reason for contiued inpatient stay Substantial Risk for: inability to function and rapid decompensation
--- NOTE | 2022-05-30 16:20 | PC.NURSE ---
At approximately 1550 patient became agitated when requested to leave door open in order to maintain 1:1 line of vision. Patient threw towel at RN, then returned to room. Patient then emerged and became more agitated, mimicking strangling junior copywriter with his hands. Dr. Layton called, received medication orders for patient, given as ordered. Plastic Outfitter notified. Patient currently resting in room, resp unlabored. He is declining vital signs.
[2022-05-30] MEDS: diphenhydrAMINE HCL 50 MG/ML VIAL IM (16:23)
--- NOTE | 2022-05-30 16:31 | PM.EVENT ---
Event Note Date of Service: 05/30/22 Event Note: Pt seen and evaluated following chemical restraint at around 1620. Per nursing report, patient became aggitated when asked to keep door open to maintain 1:1 line of vision, threw towel at RN, emerged from room more aggitated, mimicking strangling with his hands. Dr. mesa called and patient restrained with 5mg haldol IM, lorazepam 2mg IM, and diphenhydramine 50mg IM. Patient examined- laying calmly in bed, awake and alert, with illogical tangential speech but able to answer targeted questions. No sob, cp, lightheadededness, n/v, headache, palpitations. RRR, lungs CTA b/l. Moving all extremities. Agrees to vital signs to be obtained by nursing staff. Please contact for any concerns or questions. Time Spent With Patient Time: Total time managing care of this patient today 15 minutes.
[2022-05-30] MEDS: Haloperidol Lactate 5 MG/ML VIAL IM (16:44)
[2022-05-30] MEDS: LORazepam 2 MG/ML VIAL IM (16:46)
--- NOTE | 2022-05-30 18:16 | PC.NURSE ---
Patient resting, resp unlabored. 1:1 with patient as ordered.
[2022-05-30] MEDS: OLANZapine 10 MG VIAL IM (23:06)
[2022-05-31] MEDS: LORazepam 2 MG/ML VIAL IM (09:55)
[2022-05-31] MEDS: diphenhydrAMINE HCL 50 MG/ML VIAL IM (09:55)
[2022-05-31] MEDS: Haloperidol Lactate 5 MG/ML VIAL IM (09:56)
[2022-05-31 10:05] VITALS: BP 126/71; PULSE 87; TEMP 36.9; O2SAT 96
--- NOTE | 2022-05-31 10:40 | PM.EVENT ---
Event Note Date of Service: 05/31/22 Event Note: Physical examination after IM medication restraint At 09:50, patient physically aggressive with nursing staff. Unable to respond to redirection. Not accepting oral medications. Unable to deescalate. Imminent danger to others. Given same IM Haldol 5 mg, Benadryl 50 mg and Ativan 2 mg given IM. Did allow vitals. When director underwriter sales examined at 10:40, he was sleeping, without any evidence of physical concerns. Later in the day was alert, oriented but remained irritable. Time Spent With Patient Time: Total time managing care of this patient today ____ minutes.
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
[2022-05-31 18:00] VITALS: RESP 18
[2022-05-31] MEDS: OLANZapine 10 MG VIAL IM (21:57)
--- NOTE | 2022-06-01 05:58 | PC.NURSE ---
Eriberto refused his PM PO medications. Patient was given IM Zyprexa 10mg as per Section 8 paperwork.
--- NOTE | 2022-06-01 10:54 | PC.NURSE ---
Pt refused 0800 vitals and am meds , provider aware.
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
[2022-06-01 18:00] VITALS: RESP 18
[2022-06-01] MEDS: OLANZapine 10 MG VIAL IM (21:38)
--- NOTE | 2022-06-01 21:47 | PC.NURSE ---
Eriberto refused to take oral PM medications. Patient was given IM Zyprexa 10mg per Section 8 .
[2022-06-02] MEDS: OLANZapine 10 MG VIAL IM ×2 (10:44→22:08)
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
[2022-06-02 20:36] VITALS: RESP 14
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
[2022-06-03] MEDS: OLANZapine 10 MG VIAL IM ×2 (10:13→22:50)
--- NOTE | 2022-06-03 14:30 | HO.PSYCHPN ---
Subjective Subjective Date of Service: 06/03/22 Reason For Visit: AH, delusional Interim History: pt seen in his room after having received medication IM this morning. discussing his role as a god in ensuring the universe continues to exist. states if he had not agreed to the role he would have been changed in into a demon. per SW, pt swung at her with his pillow when she suggested he might be more comfortable taking medication by mouth. per staff, verbally aggressive. denigrating speech toward females. IMs only, refusing PO medication. broke peer's [employer] art project and threw it in the trash. refusing groups, attempting to elope by pushing at exit doors. pacing, laughing to himself in the skelton. Mental Status Exam Mental Status Exam Narrative: seated on end of bed dressed in street clothes, appears adequately groomed. cooperative. no PMA/PMR. thoughts bizarre delusional and tangential, speech droning. affect constricted, hypo-intense, non-labile. mood unknown. no SI/HI/AVH expressed. Diagnostics Vital Signs (24Hr): Vital Signs - 24 hr 06/02/22 20:36 Respiratory Rate 14 BMI result Body Mass Index 24.0 Labs Results: 05/07/22 13:16 05/07/22 13:16 Medications Medications Current Medications Acetaminophen (Acetaminophen 325 Mg Tablet) 650 mg PO Q6H PRN PRN Reason: Headache/Pain Mild Scale (1-3) Al Hydroxide/Mg Hydroxide (Magnesium Hydrox/Alum Hydrox 30 Ml Oral.Susp) 30 ml PO Q6H PRN PRN Reason: Heartburn/Nausea Haloperidol (Haloperidol 5 Mg Tablet) 5 mg PO QID PRN PRN Reason: psychosis, agitati [place] Carbonate ([place] Carbonate Er 300 Mg Tablet.Er) 600 mg PO BID ANJUM Last Admin: 06/03/22 09:08 Dose: Not Given Lorazepam (Lorazepam 1 Mg Tablet) 2 mg PO QID PRN PRN Reason: Anxiety Lorazepam (Lorazepam 2 Mg/Ml Vial) 2 mg IM BID PRN PRN Reason: refusal of lith, per debra order Magnesium Hydroxide (Milk Of Magnesia 30 Ml Oral.Susp) 30 ml PO DAILY PRN PRN Reason: Constipation Olanzapine (Olanzapine 10 Mg Vial) 10 mg IM BID PRN PRN Reason: refusal of PO zyprexa, per debra Last Admin: 06/03/22 10:13 Dose: 10 mg Olanzapine (Olanzapine Odt 10 Mg Tab.Rapdis) 20 mg TRANSLINGU BEDTIME ANJUM Last Admin: 06/02/22 21:55 Dose: Not Given Olanzapine (Olanzapine Odt 10 Mg Tab.Rapdis) 20 mg TRANSLINGU DAILY ANJUM Last Admin: 06/03/22 11:43 Dose: Not Given Trazodone HCl (Trazodone Hcl 50 Mg Tablet) 50 mg PO BEDTIME PRN PRN Reason: Insomnia Last Admin: 05/27/22 20:11 Dose: 50 mg Allergies Allergies Allergy/AdvReac Type Severity Reaction Status Date / Time bupropion [From Wellbutrin] Allergy Mild CAUSES Unverified 03/07/20 15:04 SWOLLEN HEAD tetracycline [Tetracycline] Allergy Mild UNKNOWN Unverified 03/07/20 15:04 trifluoperazine Allergy Mild UNKNOWN Unverified 03/07/20 15:04 [From Stelazine] clozapine [From Clozaril] AdvReac Mild SEIZURES,NE Unverified 03/07/20 15:04 UTROPENIA Assessment & Plan Assessment & Plan (1) Schizoaffective disorder, bipolar type: Status: Acute Code(s): F25.0 - Schizoaffective disorder, bipolar type Josr Wei is a 56 y.o. male with a past medical history of schizoaffective disorder, bipolar type. He presented to [facility] ED on 05/07/22 due to grandiose, paranoid delusional thought content, command AH. Per pt?s gf, he had been doing well until 05/02/22, however began responding to internal stimuli and on 05/06/22 he emptied his medications down the garbage disposal. Hx of IPLOC on section 8 at [facility] M3 in September- November 2021. Stabilized on lithium and olanzapine. Plan: Pt signed a CV, however does not appear to understand the conditional voluntary form and felt forced into doing this, states he is actually involuntary for the admission, will reject the CV. Will continue lithium 600 mg BID and olanzapine 30 mg HS, however pt says he intends to refuse. Li level 0.53 on admission. 05/08: Continue to offer meds, pt is intrusive, bizarre, makes vague statements about harming himself or others if forced to take meds, on 5 min checks 05/09: Refused to meet, declining medication 05/10: Refuses meds, not engaging in tx 05/11: Refuses meds, not engaging in tx. Pt is now a section VII. Will change olanzapine to ODT to promote adherence. 05/13: took meds last night. irritable, labile. reporting AH. 05/14 continue tx. 05/15: not consistently taking medication. hypersexual, bizarre. threatened to stab staff with scissors (which he had in his hand) and was not cooperative in returning razor to staff after shaving. 05/16 not taking meds, sect 7 continues offering meds. 05/17 continue tx. not taking meds ,pending court. 05/18: refusing meds. exposing his genitalia in the skel[place], licking the floor, throwing urine-soaked playing cards at staff. 05/19: refusing meds. ripped crowns off teeth and threw them away; smearing food on self and door; leaving urine footprints in the skel[place], smelling and dripping of the stuff. given medication restraint of zyprexa 10 and benadryl 50 IM after throwing hot soup in the milieu with peers in the area. 05/20: no change in presentation. refusing medications, denies he has mental illness. 05/21: sedated from having taken zyprexa 30 PO mg this morning. pushed staff in order to access kitchen last night, got zyprexa and benadryl IM after. 05/22: periods of agitation. defecated in shower. pacing, trying exits. continue current mgmt. 05/23: pt refusing meds, night prior he was disruptive on unit i.e. tearing up board games, intrusive towards peers 05/24: no med changes, refusing meds 05/25: refusing meds. court . wednesday was storing feces wrapped in paper towels on his shelving to save the universe. incontinent of urine in the milieu, slow to change/wash. 05/26: took zyprexa yesterday morning, refusing lithium. irritable. you are all lesbians trying to take over the world. 05/27: refusing meds. hearing tomorrow. to staff trying to administer meds: shove it up your ass! to female staff attempting to provide care: get out, bitch. you're a dog. get on your knees. [id number] declined mtg with TERA. 05/28: taking food from others' trays and throwing it away, masturbating in milieu, calling female staff bitch, ripped up checks sheet from off of [employer]s clipboard, urinating on floor, pouring bottle of water onto floor. committed and ordered medication. 05/29 continue tx, back up IM per court order. 05/30/2022: Has only received olanzapine for the last 1-2 days, therefore unable to clearly evaluate efficacy. Given intensity of behaviors and interactions and psychosis, Will add olanzapine in the morning time i.e. 10 mg morning and 30 mg at bedtime with 10 mg IM backup morning and bedtime. Haldol as needed. 05/31/2022: No changes to current plan. Did have medication restraint today. 06/01: no change to plan. irritable, delusional. 06/02: no change in plan or presentation. 06/03: bizarre delusions. destroyed and threw away peer's art project. misogynistic comments. I spent __20____ minutes with the patient and/or on the patient floor today, greater than?50% of which was spent counseling/coordinating care. Reason for contiued inpatient stay Substantial Risk for: harm to self, harm to others and inability to function Time Spent With Patient Time: Total time managing care of this patient today ____ minutes.
[2022-06-03 15:00] VITALS: BP 137/79; PULSE 72; RESP 16; TEMP 36.6; O2SAT 98
[2022-06-03 22:54] VITALS: RESP 18
[2022-06-04] MEDS: OLANZapine 10 MG VIAL IM (10:57)
[2022-06-04] MEDS: LORazepam 2 MG/ML VIAL IM (10:57)
--- NOTE | 2022-06-04 17:24 | P.PNPSI_ITS ---
Subjective Subjective Date of Service: 06/04/22 Reason For Visit: AH, delusional Interim History: pt seen in his room. initially states he does not wish for MD to be in his living space and demanding MD leave. he then asks what MD would like to discuss, MD states he is checking in with pt. discussion quickly devolves to pt's making aggressive and scatalogical statements toward MD, MD sets limits and exits pt's room. per staff, visible, pacing. playing games. repetitive, non-sensical. irritable around medication. refusing PO, receiving IM. Mental Status Exam Mental Status Exam Narrative: lying in bed, appears adequately groomed. cooperative. no PMA/PMR. thoughts bizarre delusional and tangential, speech droning. affect constricted, hypo- intense, mod-labile. mood unknown. no SI/HI/AVH expressed. Diagnostics Vital Signs (24Hr): Vital Signs - 24 hr 06/03/22 22:54 Respiratory Rate 18 BMI result Body Mass Index 24.0 Labs Results: 05/07/22 13:16 05/07/22 13:16 Medications Medications Current Medications Acetaminophen (Acetaminophen 325 Mg Tablet) 650 mg PO Q6H PRN PRN Reason: Headache/Pain Mild Scale (1-3) Al Hydroxide/Mg Hydroxide (Magnesium Hydrox/Alum Hydrox 30 Ml Oral.Susp) 30 ml PO Q6H PRN PRN Reason: Heartburn/Nausea Haloperidol (Haloperidol 5 Mg Tablet) 5 mg PO QID PRN PRN Reason: psychosis, agitati [place] Carbonate ([place] Carbonate Er 300 Mg Tablet.Er) 600 mg PO BID [facility] Last Admin: 06/04/22 10:38 Dose: Not Given Lorazepam (Lorazepam 1 Mg Tablet) 2 mg PO QID PRN PRN Reason: Anxiety Lorazepam (Lorazepam 2 Mg/Ml Vial) 2 mg IM BID PRN PRN Reason: refusal of lith, per debra order Last Admin: 06/04/22 10:57 Dose: 2 mg Magnesium Hydroxide (Milk Of Magnesia 30 Ml Oral.Susp) 30 ml PO DAILY PRN PRN Reason: Constipation Olanzapine (Olanzapine 10 Mg Vial) 10 mg IM BID PRN PRN Reason: refusal of PO zyprexa, per debra Last Admin: 06/04/22 10:57 Dose: 10 mg Olanzapine (Olanzapine Odt 10 Mg Tab.Rapdis) 20 mg TRANSLINGU BEDTIME ANJUM Last Admin: 06/03/22 22:52 Dose: Not Given Olanzapine (Olanzapine Odt 10 Mg Tab.Rapdis) 20 mg TRANSLINGU DAILY [facility] Last Admin: 06/04/22 10:39 Dose: Not Given Trazodone HCl (Trazodone Hcl 50 Mg Tablet) 50 mg PO BEDTIME PRN PRN Reason: Insomnia Last Admin: 05/27/22 20:11 Dose: 50 mg Allergies Allergies Allergy/AdvReac Type Severity Reaction Status Date / Time bupropion [From Wellbutrin] Allergy Mild CAUSES Unverified 03/07/20 15:04 SWOLLEN HEAD tetracycline [Tetracycline] Allergy Mild UNKNOWN Unverified 03/07/20 15:04 trifluoperazine Allergy Mild UNKNOWN Unverified 03/07/20 15:04 [From Stelazine] clozapine [From Clozaril] AdvReac Mild SEIZURES,NE Unverified 03/07/20 15:04 UTROPENIA Assessment & Plan Assessment & Plan (1) Schizoaffective disorder, bipolar type: Status: Acute Code(s): F25.0 - Schizoaffective disorder, bipolar type Plan Eriberto is a 56 y.o. male with a past medical history of schizoaffective disorder, bipolar type. He presented to [facility] on 05/07/22 due to grandiose, paranoid delusional thought content, command AH. Per pt?s gf, he had been doing well until 05/02/22, however began responding to internal stimuli and on 05/06/22 he emptied his medications down the garbage disposal. Hx of IPLOC on section 8 at [facility] M3 in September- November 2021. Stabilized on lithium and olanzapine. Plan: Pt signed a CV, however does not appear to understand the conditional voluntary form and felt forced into doing this, states he is actually involuntary for the admission, will reject the CV. Will continue lithium 600 mg BID and olanzapine 30 mg HS, however pt says he intends to refuse. Li level 0.53 on admission. 05/08: Continue to offer meds, pt is intrusive, bizarre, makes vague statements about harming himself or others if forced to take meds, on 5 min checks 05/09: Refused to meet, declining medication 05/10: Refuses meds, not engaging in tx 05/11: Refuses meds, not engaging in tx. Pt is now a section VII. Will change olanzapine to ODT to promote adherence. 05/13: took meds last night. irritable, labile. reporting AH. 05/14 continue tx. 05/15: not consistently taking medication. hypersexual, bizarre. threatened to stab staff with scissors (which he had in his hand) and was not cooperative in returning razor to staff after shaving. 05/16 not taking meds, sect 7 continues offering meds. 05/17 continue tx. not taking meds ,pending court. 05/18: refusing meds. exposing his genitalia in the [place]el[place], licking the floor, throwing urine-soaked playing cards at staff. 05/19: refusing meds. ripped crowns off teeth and threw them away; smearing food on self and door; leaving urine footprints in the [place]el[place], smelling and dripping of the stuff. given medication restraint of zyprexa 10 and benadryl 50 IM after throwing hot soup in the milieu with peers in the area. 05/20: no change in presentation. refusing medications, denies he has mental illness. 05/21: sedated from having taken zyprexa 30 PO mg this morning. pushed staff in order to access kitchen last night, got zyprexa and benadryl IM after. 05/22: periods of agitation. defecated in shower. pacing, trying exits. continue current mgmt. 05/23: pt refusing meds, night prior he was disruptive on unit i.e. tearing up board games, intrusive towards peers 05/24: no med changes, refusing meds 05/25: refusing meds. court . wednesday was storing feces wrapped in paper towels on his shelving to save the universe. incontinent of urine in the milieu, slow to change/wash. 05/26: took zyprexa yesterday morning, refusing lithium. irritable. you are all lesbians trying to take over the world. 05/27: refusing meds. hearing tomorrow. to staff trying to administer meds: shove it up your ass! to female staff attempting to provide care: get out, bitch. you're a dog. get on your knees. [id number] declined mtg with TERA. 05/28: taking food from others' trays and throwing it away, masturbating in milieu, calling female staff bitch, ripped up checks sheet from off of [employer]'s clipboard, urinating on floor, pouring bottle of water onto floor. committed and ordered medication. 05/29 continue tx, back up IM per court order. 05/30/2022: Has only received olanzapine for the last 1-2 days, therefore unable to clearly evaluate efficacy. Given intensity of behaviors and interactions and psychosis, Will add olanzapine in the morning time i.e. 10 mg morning and 30 mg at bedtime with 10 mg IM backup morning and bedtime. Haldol as needed. 05/31/2022: No changes to current plan. Did have medication restraint today. 06/01: no change to plan. irritable, delusional. 06/02: no change in plan or presentation. 06/03: bizarre delusions. destroyed and threw away peer's art project. misogynistic comments. 06/04: irritable, verbally aggressive, refusing PO meds and getting IMs instead. I spent __20____ minutes with the patient and/or on the patient floor today, greater than?50% of which was spent counseling/coordinating care. Reason for contiued inpatient stay Substantial Risk for: harm to self, harm to others, inability to function and rapid decompensation Time Spent With Patient Time: Total time managing care of this patient today ____ minutes.
[2022-06-04 23:40] VITALS: RESP 18
[2022-06-05] MEDS: OLANZapine 10 MG VIAL IM ×2 (00:02→20:58)
[2022-06-05] MEDS: LORazepam 2 MG/ML VIAL IM ×2 (00:02→20:58)
[2022-06-05 08:00] VITALS: RESP 16
[2022-06-05] MEDS: Lithium Carbonate ER 300 MG TABLET.ER 600 MG PO (08:18)
[2022-06-05] MEDS: OLANZapine ODT 10 MG TAB.RAPDIS 20 MG TRANSLINGU (08:19)
--- NOTE | 2022-06-05 13:31 | P.PNPSI_ITS ---
Subjective Subjective Date of Service: 06/05/22 Reason For Visit: AH, delusional Interim History: seen in [facility] with SW. evita loud, tangential. but not aggressive. no requests or complaints. per staff, took PO meds this morning for the first time since med order started. isolative yesterday, attempting to snatch meds out of RN's hand. irritable. fell asleep after dinner, then again from 0100 - 0530. Mental Status Exam Mental Status Exam Narrative: seated at table in milieu, appears adequately groomed. cooperative. no PMA/PMR. thoughts bizarre delusional and tangential, speech droning. affect constricted, hypo-intense, non-labile. mood unknown. no SI/HI/AVH expressed. Diagnostics Vital Signs (24Hr): Vital Signs - 24 hr 06/04/22 23:40 06/05/22 08:00 Respiratory Rate 18 16 BMI result Body Mass Index 24.0 Labs Results: 05/07/22 13:16 05/07/22 13:16 Medications Medications Current Medications Acetaminophen (Acetaminophen 325 Mg Tablet) 650 mg PO Q6H PRN PRN Reason: Headache/Pain Mild Scale (1-3) Al Hydroxide/Mg Hydroxide (Magnesium Hydrox/Alum Hydrox 30 Ml Oral.Susp) 30 ml PO Q6H PRN PRN Reason: Heartburn/Nausea Haloperidol (Haloperidol 5 Mg Tablet) 5 mg PO QID PRN PRN Reason: psychosis, agitati [place] Carbonate ([place] Carbonate Er 300 Mg Tablet.Er) 600 mg PO BID [facility] Last Admin: 06/05/22 08:18 Dose: 600 mg Lorazepam (Lorazepam 1 Mg Tablet) 2 mg PO QID PRN PRN Reason: Anxiety Lorazepam (Lorazepam 2 Mg/Ml Vial) 2 mg IM BID PRN PRN Reason: refusal of lith, per debra order Last Admin: 06/05/22 00:02 Dose: 2 mg Magnesium Hydroxide (Milk Of Magnesia 30 Ml Oral.Susp) 30 ml PO DAILY PRN PRN Reason: Constipation Olanzapine (Olanzapine 10 Mg Vial) 10 mg IM BID PRN PRN Reason: refusal of PO zyprexa, per debra Last Admin: 06/05/22 00:02 Dose: 10 mg Olanzapine (Olanzapine Odt 10 Mg Tab.Rapdis) 20 mg TRANSLINGU BEDTIME [facility] Last Admin: 06/04/22 23:55 Dose: Not Given Olanzapine (Olanzapine Odt 10 Mg Tab.Rapdis) 20 mg TRANSLINGU DAILY [facility] Last Admin: 06/05/22 08:19 Dose: 20 mg Trazodone HCl (Trazodone Hcl 50 Mg Tablet) 50 mg PO BEDTIME PRN PRN Reason: Insomnia Last Admin: 05/27/22 20:11 Dose: 50 mg Allergies Allergies Allergy/AdvReac Type Severity Reaction Status Date / Time bupropion [From Wellbutrin] Allergy Mild CAUSES Unverified 03/07/20 15:04 SWOLLEN HEAD tetracycline [Tetracycline] Allergy Mild UNKNOWN Unverified 03/07/20 15:04 trifluoperazine Allergy Mild UNKNOWN Unverified 03/07/20 15:04 [From Stelazine] clozapine [From Clozaril] AdvReac Mild SEIZURES,NE Unverified 03/07/20 15:04 UTROPENIA Assessment & Plan Assessment & Plan (1) Schizoaffective disorder, bipolar type: Status: Acute Code(s): F25.0 - Schizoaffective disorder, bipolar type Plan Eriberto is a 56 y.o. male with a past medical history of schizoaffective disorder, bipolar type. He presented to [facility] on 05/07/22 due to grandiose, paranoid delusional thought content, command AH. Per pt?s gf, he had been doing well until 05/02/22, however began responding to internal stimuli and on 05/06/22 he emptied his medications down the garbage disposal. Hx of IPLOC on section 8 at [facility] M3 in September- November 2021. Stabilized on lithium and olanzapine. Plan: Pt signed a CV, however does not appear to understand the conditional voluntary form and felt forced into doing this, states he is actually involuntary for the admission, will reject the CV. Will continue lithium 600 mg BID and olanzapine 30 mg HS, however pt says he intends to refuse. Li level 0.53 on admission. 05/08: Continue to offer meds, pt is intrusive, bizarre, makes vague statements about harming himself or others if forced to take meds, on 5 min checks 05/09: Refused to meet, declining medication 05/10: Refuses meds, not engaging in tx 05/11: Refuses meds, not engaging in tx. Pt is now a section VII. Will change olanzapine to ODT to promote adherence. 05/13: took meds last night. irritable, labile. reporting AH. 05/14 continue tx. 05/15: not consistently taking medication. hypersexual, bizarre. threatened to stab staff with scissors (which he had in his hand) and was not cooperative in returning razor to staff after shaving. 05/16 not taking meds, sect 7 continues offering meds. 05/17 continue tx. not taking meds ,pending court. 05/18: refusing meds. exposing his genitalia in the [place], licking the floor, throwing urine-soaked playing cards at staff. 05/19: refusing meds. ripped crowns off teeth and threw them away; smearing food on self and door; leaving urine footprints in the [place]el[place], smelling and dripping of the stuff. given medication restraint of zyprexa 10 and benadryl 50 IM after throwing hot soup in the milieu with peers in the area. 05/20: no change in presentation. refusing medications, denies he has mental illness. 05/21: sedated from having taken zyprexa 30 PO mg this morning. pushed staff in order to access kitchen last night, got zyprexa and benadryl IM after. 05/22: periods of agitation. defecated in shower. pacing, trying exits. continue current mgmt. 05/23: pt refusing meds, night prior he was disruptive on unit i.e. tearing up board games, intrusive towards peers 05/24: no med changes, refusing meds 05/25: refusing meds. court . wednesday was storing feces wrapped in paper towels on his shelving to save the universe. incontinent of urine in the [place], slow to change/wash. 05/26: took zyprexa yesterday morning, refusing lithium. irritable. you are all lesbians trying to take over the world. 05/27: refusing meds. hearing tomorrow. to staff trying to administer meds: shove it up your ass! to female staff attempting to provide care: get out, bitch. you're a dog. get on your knees. [id number] declined mtg with TERA. 05/28: taking food from others' trays and throwing it away, masturbating in milieu, calling female staff bitch, ripped up checks sheet from off of [email or web address]'s clipboard, urinating on floor, pouring bottle of water onto floor. committed and ordered medication. 05/29 continue tx, back up IM per court order. 05/30/2022: Has only received olanzapine for the last 1-2 days, therefore unable to clearly evaluate efficacy. Given intensity of behaviors and interactions and psychosis, Will add olanzapine in the morning time i.e. 10 mg morning and 30 mg at bedtime with 10 mg IM backup morning and bedtime. Haldol as needed. 05/31/2022: No changes to current plan. Did have medication restraint today. 06/01: no change to plan. irritable, delusional. 06/02: no change in plan or presentation. 06/03: bizarre delusions. destroyed and threw away peer's art project. misogynistic comments. 06/04: irritable, verbally aggressive, refusing PO meds and getting IMs instead. 06/05: less verbally aggressive and irritable. took PO meds this morning rather than receive IMs. I spent ___20___ minutes with the patient and/or on the patient floor today, greater than?50% of which was spent counseling/coordinating care. Reason for contiued inpatient stay Substantial Risk for: harm to self, harm to others, inability to function and rapid decompensation Time Spent With Patient Time: Total time managing care of this patient today ____ minutes.
[2022-06-05 18:00] VITALS: RESP 14
--- NOTE | 2022-06-06 05:45 | PC.NURSE ---
small cuts to face when shaving
--- NOTE | 2022-06-06 06:13 | PC.NURSE ---
This nurse observed Eriberto shaving. Eriberto did not take Nurse's suggestion and has several small razor cuts to his face. Encouraged patient to be more gentle, but patient was more forceful with the movement on his face. Patient will most likely develop some razor burn due to this style of shaving.
[2022-06-06] MEDS: LORazepam 2 MG/ML VIAL IM ×2 (08:41→20:06)
[2022-06-06] MEDS: OLANZapine 10 MG VIAL IM ×2 (08:41→20:06)
[2022-06-06 08:56] VITALS: RESP 18
--- NOTE | 2022-06-06 14:27 | PC.NURSE ---
Patient demand give me peanut butter now. Explain yourself silviano . had to be redirected away from aggressively kicking door to patient nourishment room.
--- NOTE | 2022-06-06 17:32 | HO.PSYCHPN ---
Subjective Subjective Date of Service: 08/01/22 Reason For Visit: AH, delusional Subjective Notes: Section 8 Interim History: Pt looking forward to be being discharge on [place]. He requests discharged at 11am. He denies SI/HI. He reports he is sleeping and eating well. No behavioral concerns. He denies VH/AH, no insight into mental illness or need for psychiatric tx. Medication Compliance: Yes Side effects from medications: No Review of Systems Review of Systems Yes all other systems are reviewed and are negative, Unobtainable due to mental status and Other ( ) Reports Abnormal speech present Mental Status Exam Mental Status Exam Narrative: up and about the unit, appears adequately groomed. cooperative. no PMA/PMR. thoughts linear in brief interactions, speech less droning. affect constricted, hypo-intense, non-labile. mood OK. good, yeah. no SI/SIBI/HI/VH. reports a couple voices and thinking from afar. Patient Appearance: Appropriate Patient Orientation: Person and Situation Level of Consciousness: Awake and Appropriate Patient Behavior: Guarded and Passive Mood Description: Withdrawn Affect Description: Constricted Ability to Follow Directions: Good Speech Pattern: Clear Diagnostics Vital Signs (24Hr): Vital Signs - 24 hr 06/05/22 18:00 06/06/22 08:56 Respiratory Rate 14 18 BMI result Body Mass Index 24.0 Labs 07/31/22 20:08 07/31/22 20:08 Medications Medications Current Medications Acetaminophen (Acetaminophen 325 Mg Tablet) 650 mg PO Q6H PRN PRN Reason: Headache/Pain Mild Scale (1-3) Al Hydroxide/Mg Hydroxide (Magnesium Hydrox/Alum Hydrox 30 Ml Oral.Susp) 30 ml PO Q6H PRN PRN Reason: Heartburn/Nausea Haloperidol (Haloperidol 5 Mg Tablet) 5 mg PO QID PRN PRN Reason: psychosis, agitati [place] Carbonate ([place] Carbonate Er 300 Mg Tablet.Er) 600 mg PO BID [facility] Last Admin: 06/06/22 08:47 Dose: Not Given Lorazepam (Lorazepam 1 Mg Tablet) 2 mg PO QID PRN PRN Reason: Anxiety Lorazepam (Lorazepam 2 Mg/Ml Vial) 2 mg IM BID PRN PRN Reason: refusal of lith, per debra order Last Admin: 06/06/22 08:41 Dose: 2 mg Magnesium Hydroxide (Milk Of Magnesia 30 Ml Oral.Susp) 30 ml PO DAILY PRN PRN Reason: Constipation Olanzapine (Olanzapine 10 Mg Vial) 10 mg IM BID PRN PRN Reason: refusal of PO zyprexa, per debra Last Admin: 06/06/22 08:41 Dose: 10 mg Olanzapine (Olanzapine Odt 10 Mg Tab.Rapdis) 20 mg TRANSLINGU BEDTIME [facility] Last Admin: 06/05/22 20:59 Dose: Not Given Olanzapine (Olanzapine Odt 10 Mg Tab.Rapdis) 20 mg TRANSLINGU DAILY [facility] Last Admin: 06/06/22 08:47 Dose: Not Given Trazodone HCl (Trazodone Hcl 50 Mg Tablet) 50 mg PO BEDTIME PRN PRN Reason: Insomnia Last Admin: 05/27/22 20:11 Dose: 50 mg Allergies Allergies Allergy/AdvReac Type Severity Reaction Status Date / Time bupropion [From Wellbutrin] Allergy Mild CAUSES Unverified 03/07/20 15:04 SWOLLEN HEAD tetracycline [Tetracycline] Allergy Mild UNKNOWN Unverified 03/07/20 15:04 trifluoperazine Allergy Mild UNKNOWN Unverified 03/07/20 15:04 [From Stelazine] clozapine [From Clozaril] AdvReac Mild SEIZURES,NE Unverified 03/07/20 15:04 UTROPENIA Assessment & Plan Assessment & Plan (1) Schizoaffective disorder, bipolar type: Status: Acute Code(s): F25.0 - Schizoaffective disorder, bipolar type Plan Eriberto is a 56 y.o. male with history of schizoaffective disorder, bipolar type. Plan: continue treatment plan I spent ___15___ minutes with the patient and/or on the patient floor today, greater than?50% of which was spent counseling/coordinating care. Reason for contiued inpatient stay Substantial Risk for: inability to function Time Spent With Patient Time: Total time managing care of this patient today ____ minutes.
[2022-06-07] MEDS: LORazepam 2 MG/ML VIAL IM ×2 (08:00→20:30)
[2022-06-07] MEDS: OLANZapine 10 MG VIAL IM ×2 (08:00→20:30)
[2022-06-07 08:30] VITALS: RESP 19
--- NOTE | 2022-06-07 10:40 | P.PNPSI_ITS ---
Subjective Subjective Date of Service: 06/07/22 Reason For Visit: AH, delusional Interim History: remains disorganized, psychotic, intrusive; today, swated PO meds out of nurses hand, disrobed in mil[place], needed IM Mental Status Exam Mental Status Exam Patient Appearance: Well Grooomed Patient Orientation: Person Level of Consciousness: Awake Patient Behavior: Hypersexual, Restless and Resistive to Care Mood Description: Expansive Affect Description: Expansive Ability to Follow Directions: Poor Speech Pattern: Clear Delusions: Present Perceptual Disturbances: Depersonalization Thought Content: positive for Poverty of Content Abnormal Motor Activity Signs and Symptoms: Hyperactivity Judgement: Poor Judgement and Insight: poor Diagnostics Vital Signs (24Hr): Vital Signs - 24 hr 06/07/22 08:30 Respiratory Rate 19 BMI result Body Mass Index 24.0 Labs Results: 05/07/22 13:16 05/07/22 13:16 Medications Medications Current Medications Acetaminophen (Acetaminophen 325 Mg Tablet) 650 mg PO Q6H PRN PRN Reason: Headache/Pain Mild Scale (1-3) Al Hydroxide/Mg Hydroxide (Magnesium Hydrox/Alum Hydrox 30 Ml Oral.Susp) 30 ml PO Q6H PRN PRN Reason: Heartburn/Nausea Haloperidol (Haloperidol 5 Mg Tablet) 5 mg PO QID PRN PRN Reason: psychosis, agitati [place] Carbonate ([place] Carbonate Er 300 Mg Tablet.Er) 600 mg PO BID [facility] Last Admin: 06/07/22 09:47 Dose: Not Given Lorazepam (Lorazepam 1 Mg Tablet) 2 mg PO QID PRN PRN Reason: Anxiety Magnesium Hydroxide (Milk Of Magnesia 30 Ml Oral.Susp) 30 ml PO DAILY PRN PRN Reason: Constipation Olanzapine (Olanzapine 10 Mg Vial) 10 mg IM BID PRN PRN Reason: refusal of PO zyprexa, per debra Last Admin: 06/07/22 08:00 Dose: 10 mg Olanzapine (Olanzapine Odt 10 Mg Tab.Rapdis) 20 mg TRANSLINGU BEDTIME [facility] Last Admin: 06/06/22 20:06 Dose: Not Given Olanzapine (Olanzapine Odt 10 Mg Tab.Rapdis) 20 mg TRANSLINGU DAILY [facility] Last Admin: 06/07/22 09:47 Dose: Not Given Trazodone HCl (Trazodone Hcl 50 Mg Tablet) 50 mg PO BEDTIME PRN PRN Reason: Insomnia Last Admin: 05/27/22 20:11 Dose: 50 mg Allergies Allergies Allergy/AdvReac Type Severity Reaction Status Date / Time bupropion [From Wellbutrin] Allergy Mild CAUSES Unverified 03/07/20 15:04 SWOLLEN HEAD tetracycline [Tetracycline] Allergy Mild UNKNOWN Unverified 03/07/20 15:04 trifluoperazine Allergy Mild UNKNOWN Unverified 03/07/20 15:04 [From Stelazine] clozapine [From Clozaril] AdvReac Mild SEIZURES,NE Unverified 03/07/20 15:04 UTROPENIA Assessment & Plan Assessment & Plan (1) Schizoaffective disorder, bipolar type: Status: Acute Code(s): F25.0 - Schizoaffective disorder, bipolar type Plan Eriberto is a 56 y.o. male with a past medical history of schizoaffective disorder, bipolar type. He presented to [facility] ED on 05/07/22 due to grandiose, paranoid delusional thought content, command AH. Per pt?s gf, he had been doing well until 05/02/22, however began responding to internal stimuli and on 04/21 12/10 he emptied his medications down the garbage disposal. Hx of IPLOC on section 8 at [facility] M3 in September- November 2021. Stabilized on lithium and olanzapine. Plan: Pt signed a CV, however does not appear to understand the conditional voluntary form and felt forced into doing this, states he is actually involuntary for the admission, will reject the CV. Will continue lithium 600 mg BID and olanzapine 30 mg HS, however pt says he intends to refuse. Li level 0.53 on admission. 05/08: Continue to offer meds, pt is intrusive, bizarre, makes vague statements about harming himself or others if forced to take meds, on 5 min checks 05/09: Refused to meet, declining medication 05/10: Refuses meds, not engaging in tx 05/11: Refuses meds, not engaging in tx. Pt is now a section VII. Will change olanzapine to ODT to promote adherence. 05/13: took meds last night. irritable, labile. reporting AH. 05/14 continue tx. 05/15: not consistently taking medication. hypersexual, bizarre. threatened to stab staff with scissors (which he had in his hand) and was not cooperative in returning razor to staff after shaving. 05/16 not taking meds, sect 7 continues offering meds. 05/17 continue tx. not taking meds ,pending court. 05/18: refusing meds. exposing his genitalia in the [place], licking the floor, t hrowing urine-soaked playing cards at staff. 05/19: refusing meds. ripped crowns off teeth and threw them away; smearing food on self and door; leaving urine footprints in the [place], smelling and drip ping of the stuff. given medication restraint of zyprexa 10 and benadryl 50 IM after throwing hot soup in the milieu with peers in the area. 05/20: no change in presentation. refusing medications, denies he has mental illness. 05/21: sedated from having taken zyprexa 30 PO mg this morning. pushed staff in order to access kitchen last night, got zyprexa and benadryl IM after. 05/22: periods of agitation. defecated in shower. pacing, trying exits. continue current mgmt. 05/23: pt refusing meds, night prior he was disruptive on unit i.e. tearing up board games, intrusive towards peers 05/24: no med changes, refusing meds 05/25: refusing meds. court . wednesday was storing feces wrapped in paper towels on his shelving to save the universe. incontinent of urine in the milieu, slow to change/wash. 05/26: took zyprexa yesterday morning, refusing lithium. irritable. you are all lesbians trying to take over the world. 05/27: refusing meds. hearing tomorrow. to staff trying to administer meds: shove it up your ass! to female staff attempting to provide care: get out, bitch. you're a dog. get on your knees. [id number] declined mtg with [facility]. 05/28: taking food from others' trays and throwing it away, masturbating in milieu, calling female staff bitch, ripped up checks sheet from off of [employer]'s clipboard, urinating on floor, pouring bottle of water onto floor. committed and ordered medication. 05/29 continue tx, back up IM per court order. 05/30/2022: Has only received olanzapine for the last 1-2 days, therefore unable to clearly evaluate efficacy. Given intensity of behaviors and interactions and psychosis, Will add olanzapine in the morning time i.e. 10 mg morning and 30 mg at bedtime with 10 mg IM backup morning and bedtime. Haldol as needed. 05/31/2022: No changes to current plan. Did have medication restraint today. 06/01: no change to plan. irritable, delusional. 06/02: no change in plan or presentation. 06/03: bizarre delusions. destroyed and threw away peer's art project. misogynistic comments. 06/04: irritable, verbally aggressive, refusing PO meds and getting IMs instead. 06/05: less verbally aggressive and irritable. took PO meds this morning rather than receive IMs. 06/07 no changes to tx plan I spent minutes with the patient and/or on the patient floor today, greater than?50% of which was spent counseling/coordinating care. Reason for contiued inpatient stay Substantial Risk for: inability to function Time Spent With Patient Time: Total time managing care of this patient today ____ minutes.
[2022-06-07 18:00] VITALS: RESP 18
[2022-06-08] MEDS: LORazepam 2 MG/ML VIAL IM ×2 (08:44→22:40)
[2022-06-08] MEDS: OLANZapine 10 MG VIAL IM ×2 (08:44→22:40)
--- NOTE | 2022-06-08 08:44 | PC.NURSE ---
Patient was offered PO medications but swatted them from TW hands. Patient aware that medications are court mandated. Medicated without incident.
[2022-06-08 09:00] VITALS: RESP 20
--- NOTE | 2022-06-08 16:11 | P.PNPSI_ITS ---
Subjective Subjective Date of Service: 06/08/22 Reason For Visit: AH, delusional Interim History: calm, cooperative in brief interview. disorganized, delusional. less irritable and aggressive. per staff, not taking PO meds. accepts IMs only. guarded, reactive. upsetting his peers when he attempts to interact with them. slept through the night. slapped meds out of RN hands this morning. hypersexual, asking RN to play a game with him and then accusing her of trying to have sex with him. Mental Status Exam Mental Status Exam Narrative: lying in bed, appears adequately groomed. cooperative. no PMA/PMR. thoughts bizarre delusional and tangential, speech droning. affect constricted, hypo- intense, non-labile. mood unknown. no SI/HI/AVH expressed. Diagnostics Vital Signs (24Hr): Vital Signs - 24 hr 06/07/22 18:00 06/08/22 09:00 Respiratory Rate 18 20 BMI result Body Mass Index 24.0 Labs Results: 05/07/22 13:16 05/07/22 13:16 Medications Medications Current Medications Acetaminophen (Acetaminophen 325 Mg Tablet) 650 mg PO Q6H PRN PRN Reason: Headache/Pain Mild Scale (1-3) Al Hydroxide/Mg Hydroxide (Magnesium Hydrox/Alum Hydrox 30 Ml Oral.Susp) 30 ml PO Q6H PRN PRN Reason: Heartburn/Nausea Haloperidol (Haloperidol 5 Mg Tablet) 5 mg PO QID PRN PRN Reason: psychosis, agitati [place] Carbonate ([place] Carbonate Er 300 Mg Tablet.Er) 600 mg PO BID [facility] Last Admin: 06/08/22 09:18 Dose: Not Given Lorazepam (Lorazepam 1 Mg Tablet) 2 mg PO QID PRN PRN Reason: Anxiety Lorazepam (Lorazepam 2 Mg/Ml Vial) 2 mg IM BID PRN PRN Reason: Refusal of PO meds juan abdi Last Admin: 06/08/22 08:44 Dose: 2 mg Magnesium Hydroxide (Milk Of Magnesia 30 Ml Oral.Susp) 30 ml PO DAILY PRN PRN Reason: Constipation Olanzapine (Olanzapine 10 Mg Vial) 10 mg IM BID PRN PRN Reason: refusal of PO zyprexa, per debra Last Admin: 06/08/22 08:44 Dose: 10 mg Olanzapine (Olanzapine Odt 10 Mg Tab.Rapdis) 20 mg TRANSLINGU BEDTIME ANJUM Last Admin: 06/07/22 20:44 Dose: Not Given Olanzapine (Olanzapine Odt 10 Mg Tab.Rapdis) 20 mg TRANSLINGU DAILY [facility] Last Admin: 06/08/22 09:19 Dose: Not Given Trazodone HCl (Trazodone Hcl 50 Mg Tablet) 50 mg PO BEDTIME PRN PRN Reason: Insomnia Last Admin: 05/27/22 20:11 Dose: 50 mg Allergies Allergies Allergy/AdvReac Type Severity Reaction Status Date / Time bupropion [From Wellbutrin] Allergy Mild CAUSES Unverified 03/07/20 15:04 SWOLLEN HEAD tetracycline [Tetracycline] Allergy Mild UNKNOWN Unverified 03/07/20 15:04 trifluoperazine Allergy Mild UNKNOWN Unverified 03/07/20 15:04 [From Stelazine] clozapine [From Clozaril] AdvReac Mild SEIZURES,NE Unverified 03/07/20 15:04 UTROPENIA Assessment & Plan Assessment & Plan (1) Schizoaffective disorder, bipolar type: Status: Acute Code(s): F25.0 - Schizoaffective disorder, bipolar type Plan Eriberto is a 56 y.o. male with a past medical history of schizoaffective disorder, bipolar type. He presented to [facility] [place]22 due to grandiose, paranoid delusional thought content, command AH. Per pt?s gf, he had been doing well until 05/02/22, however began responding to internal stimuli and on 05/06/22 he emptied his medications down the garbage disposal. Hx of IPLOC on section 8 at [facility] in September- November 2021. Stabilized on lithium and olanzapine. Plan: Pt signed a CV, however does not appear to understand the conditional voluntary form and felt forced into doing this, states he is actually involuntary for the admission, will reject the CV. Will continue lithium 600 mg BID and olanzapine 30 mg HS, however pt says he intends to refuse. Li level 0.53 on admission. 05/08: Continue to offer meds, pt is intrusive, bizarre, makes vague statements about harming himself or others if forced to take meds, on 5 min checks 05/09: Refused to meet, declining medication 05/10: Refuses meds, not engaging in tx 05/11: Refuses meds, not engaging in tx. Pt is now a section VII. Will change olanzapine to ODT to promote adherence. 05/13: took meds last night. irritable, labile. reporting AH. 05/14 continue tx. 05/15: not consistently taking medication. hypersexual, bizarre. threatened to stab staff with scissors (which he had in his hand) and was not cooperative in returning razor to staff after shaving. 05/16 not taking meds, sect 7 continues offering meds. 05/17 continue tx. not taking meds ,pending court. 05/18: refusing meds. exposing his genitalia in the skelton, licking the floor, throwing urine-soaked playing cards at staff. 05/19: refusing meds. ripped crowns off teeth and threw them away; smearing food on self and door; leaving urine footprints in the skelton, smelling and dripping of the stuff. given medication restraint of zyprexa 10 and benadryl 50 IM after throwing hot soup in the milieu with peers in the area. 05/20: no change in presentation. refusing medications, denies he has mental illness. 05/21: sedated from having taken zyprexa 30 PO mg this morning. pushed staff in order to access kitchen last night, got zyprexa and benadryl IM after. 05/22: periods of agitation. defecated in shower. pacing, trying exits. continue current mgmt. 05/23: pt refusing meds, night prior he was disruptive on unit i.e. tearing up board games, intrusive towards peers 05/24: no med changes, refusing meds 05/25: refusing meds. court . wednesday was storing feces wrapped in paper towels on his shelving to save the universe. incontinent of urine in the milieu, slow to change/wash. 05/26: took zyprexa yesterday morning, refusing lithium. irritable. you are all lesbians trying to take over the world. 05/27: refusing meds. hearing tomorrow. to staff trying to administer meds: shove it up your ass! to female staff attempting to provide care: get out, bitch. you're a dog. get on your knees. [id number] declined mtg with TERA. 05/28: taking food from others' trays and throwing it away, masturbating in milieu, calling female staff bitch, ripped up checks sheet from off of [employer]'s clipboard, urinating on floor, pouring bottle of water onto floor. committed and ordered medication. 05/29 continue tx, back up IM per court order. 05/30/2022: Has only received olanzapine for the last 1-2 days, therefore unable to clearly evaluate efficacy. Given intensity of behaviors and interactions and psychosis, Will add olanzapine in the morning time i.e. 10 mg morning and 30 mg at bedtime with 10 mg IM backup morning and bedtime. Haldol as needed. 05/31/2022: No changes to current plan. Did have medication restraint today. 06/01: no change to plan. irritable, delusional. 06/02: no change in plan or presentation. 06/03: bizarre delusions. destroyed and threw away peer's art project. misogynistic comments. 06/04: irritable, verbally aggressive, refusing PO meds and getting IMs instead. 06/05: less verbally aggressive and irritable. took PO meds this morning rather than receive IMs. 06/07 no changes to tx plan 06/08: taking IMs all weekend. less aggressive and irritable, still disorganized and delusional. I spent ___20___ minutes with the patient and/or on the patient floor today, greater than?50% of which was spent counseling/coordinating care. Reason for contiued inpatient stay Substantial Risk for: harm to self, harm to others, inability to function and rapid decompensation Time Spent With Patient Time: Total time managing care of this patient today ____ minutes.
[2022-06-08 21:31] VITALS: RESP 18
[2022-06-09 08:00] VITALS: RESP 20
[2022-06-09] MEDS: OLANZapine ODT 10 MG TAB.RAPDIS 20 MG TRANSLINGU ×2 (08:05→22:38)
[2022-06-09] MEDS: Lithium Carbonate ER 300 MG TABLET.ER 600 MG PO ×2 (08:05→22:37)
--- NOTE | 2022-06-09 21:08 | HO.PSYCHPN ---
Subjective Subjective Date of Service: 06/09/22 Reason For Visit: AH, delusional Interim History: same presentation as yesterday. less irritable and aggressive than last week. per staff, agitated in a.m. yesterday. got IM meds. perseverative, angry, intrusive. defecated in shower. preoccupied. feces play. playing board games with staff. slept [id number]. took meds PO today. Mental Status Exam Mental Status Exam Narrative: up and about the unit, appears adequately groomed. cooperative. no PMA/PMR. thoughts bizarre delusional and tangential, speech droning. affect constricted, hypo-intense, non-labile. mood unknown. no SI/HI/AVH expressed. Diagnostics Vital Signs (24Hr): Vital Signs - 24 hr 06/08/22 21:31 06/09/22 08:00 Respiratory Rate 18 20 BMI result Body Mass Index 24.0 Labs Results: 05/07/22 13:16 05/07/22 13:16 Medications Medications Current Medications Acetaminophen (Acetaminophen 325 Mg Tablet) 650 mg PO Q6H PRN PRN Reason: Headache/Pain Mild Scale (1-3) Al Hydroxide/Mg Hydroxide (Magnesium Hydrox/Alum Hydrox 30 Ml Oral.Susp) 30 ml PO Q6H PRN PRN Reason: Heartburn/Nausea Haloperidol (Haloperidol 5 Mg Tablet) 5 mg PO QID PRN PRN Reason: psychosis, agitati [place] Carbonate (Crum Carbonate Er 300 Mg Tablet.Er) 600 mg PO BID [facility] Last Admin: 06/09/22 08:05 Dose: 600 mg Lorazepam (Lorazepam 1 Mg Tablet) 2 mg PO QID PRN PRN Reason: Anxiety Lorazepam (Lorazepam 2 Mg/Ml Vial) 2 mg IM BID PRN PRN Reason: Refusal of PO meds per abdi Last Admin: 06/08/22 22:40 Dose: 2 mg Magnesium Hydroxide (Milk Of Magnesia 30 Ml Oral.Susp) 30 ml PO DAILY PRN PRN Reason: Constipation Olanzapine (Olanzapine 10 Mg Vial) 10 mg IM BID PRN PRN Reason: refusal of PO zyprexa, per debra Last Admin: 06/08/22 22:40 Dose: 10 mg Olanzapine (Olanzapine Odt 10 Mg Tab.Rapdis) 20 mg TRANSLINGU BEDTIME [facility] Last Admin: 06/08/22 22:55 Dose: Not Given Olanzapine (Olanzapine Odt 10 Mg Tab.Rapdis) 20 mg TRANSLINGU DAILY AN[facility] Last Admin: 06/09/22 08:05 Dose: 20 mg Trazodone HCl (Trazodone Hcl 50 Mg Tablet) 50 mg PO BEDTIME PRN PRN Reason: Insomnia Last Admin: 05/27/22 20:11 Dose: 50 mg Allergies Allergies Allergy/AdvReac Type Severity Reaction Status Date / Time bupropion [From Wellbutrin] Allergy Mild CAUSES Unverified 03/07/20 15:04 SWOLLEN HEAD tetracycline [Tetracycline] Allergy Mild UNKNOWN Unverified 03/07/20 15:04 trifluoperazine Allergy Mild UNKNOWN Unverified 03/07/20 15:04 [From Stelazine] clozapine [From Clozaril] AdvReac Mild SEIZURES,NE Unverified 03/07/20 15:04 UTROPENIA Assessment & Plan Assessment & Plan (1) Schizoaffective disorder, bipolar type: Status: Acute Code(s): F25.0 - Schizoaffective disorder, bipolar type Plan Eriberto is a 56 y.o. male with a past medical history of schizoaffective disorder, bipolar type. He presented to [facility] on 05/07/22 due to grandiose, paranoid delusional thought content, command AH. Per pt?s gf, he had been doing well until 05/02/22, however began responding to internal stimuli and on 05/06/22 he emptied his medications down the garbage disposal. Hx of IPLOC on section 8 at [facility] in September- November 2021. Stabilized on lithium and olanzapine. Plan: Pt signed a CV, however does not appear to understand the conditional voluntary form and felt forced into doing this, states he is actually involuntary for the admission, will reject the CV. Will continue lithium 600 mg BID and olanzapine 30 mg HS, however pt says he intends to refuse. Li level 0.53 on admission. 05/08: Continue to offer meds, pt is intrusive, bizarre, makes vague statements about harming himself or others if forced to take meds, on 5 min checks 05/09: Refused to meet, declining medication 05/10: Refuses meds, not engaging in tx 05/11: Refuses meds, not engaging in tx. Pt is now a section VII. Will change olanzapine to ODT to promote adherence. 05/13: took meds last night. irritable, labile. reporting AH. 05/14 continue tx. 05/15: not consistently taking medication. hypersexual, bizarre. threatened to stab staff with scissors (which he had in his hand) and was not cooperative in returning razor to staff after shaving. 05/16 not taking meds, sect 7 continues offering meds. 05/17 continue tx. not taking meds ,pending court. 05/18: refusing meds. exposing his genitalia in the skelton, licking the floor, throwing urine-soaked playing cards at staff. 05/19: refusing meds. ripped crowns off teeth and threw them away; smearing food on self and door; leaving urine footprints in the skelton, smelling and dripping of the stuff. given medication restraint of zyprexa 10 and benadryl 50 IM after throwing hot soup in the milieu with peers in the area. 05/20: no change in presentation. refusing medications, denies he has mental illness. 05/21: sedated from having taken zyprexa 30 PO mg this morning. pushed staff in order to access kitchen last night, got zyprexa and benadryl IM after. 05/22: periods of agitation. defecated in shower. pacing, trying exits. continue current mgmt. 05/23: pt refusing meds, night prior he was disruptive on unit i.e. tearing up board games, intrusive towards peers 05/24: no med changes, refusing meds 05/25: refusing meds. court . wednesday was storing feces wrapped in paper towels on his shelving to save the universe. incontinent of urine in the milieu, slow to change/wash. 05/26: took zyprexa yesterday morning, refusing lithium. irritable. you are all lesbians trying to take over the world. 05/27: refusing meds. hearing tomorrow. to staff trying to administer meds: shove it up your ass! to female staff attempting to provide care: get out, bitch. you're a dog. get on your knees. [id number] declined mtg with TERA. 05/28: taking food from others' trays and throwing it away, masturbating in milieu, calling female staff bitch, ripped up checks sheet from off of [employer]'s clipboard, urinating on floor, pouring bottle of water onto floor. committed and ordered medication. 05/29 continue tx, back up IM per court order. 05/30/2022: Has only received olanzapine for the last 1-2 days, therefore unable to clearly evaluate efficacy. Given intensity of behaviors and interactions and psychosis, Will add olanzapine in the morning time i.e. 10 mg morning and 30 mg at bedtime with 10 mg IM backup morning and bedtime. Haldol as needed. 05/31/2022: No changes to current plan. Did have medication restraint today. 06/01: no change to plan. irritable, delusional. 06/02: no change in plan or presentation. 06/03: bizarre delusions. destroyed and threw away peer's art project. misogynistic comments. 06/04: irritable, verbally aggressive, refusing PO meds and getting IMs instead. 06/05: less verbally aggressive and irritable. took PO meds this morning rather than receive IMs. 06/07 no changes to tx plan 06/08: taking IMs all weekend. less aggressive and irritable, still disorganized and delusional. 06/09: PO meds this morning. defecated in shower and engaging in feces play yesterday. poor sleep. presentation essentially unchanged from yesterday. I spent ___20___ minutes with the patient and/or on the patient floor today, greater than?50% of which was spent counseling/coordinating care. Reason for contiued inpatient stay Substantial Risk for: harm to self, harm to others, inability to function and med/psych decompensation Time Spent With Patient Time: Total time managing care of this patient today ____ minutes.
[2022-06-09] MEDS: LORazepam 1 MG TABLET 2 MG PO (23:06)
[2022-06-10] MEDS: Lithium Carbonate ER 300 MG TABLET.ER 600 MG PO ×2 (09:12→22:15)
[2022-06-10] MEDS: OLANZapine ODT 10 MG TAB.RAPDIS 20 MG TRANSLINGU ×2 (09:12→22:16)
--- NOTE | 2022-06-10 15:57 | P.PNPSI_ITS ---
Subjective Subjective Date of Service: 06/10/22 Reason For Visit: AH, delusional Interim History: seen with COLTEN jama. stentorian, droning voice. same presentation as in recent days. per staff, illogical, bizarre. playing cards with staff. med- compliant. eating. periods of running very quickly down the skelton. IOR in word searches. Mental Status Exam Mental Status Exam Narrative: up and about the unit, appears adequately groomed. cooperative. no PMA/PMR. thoughts bizarre delusional and tangential, speech droning and loud. affect constricted, hypo-intense, non-labile. mood unknown. no SI/HI/AVH expressed. Diagnostics Vital Signs (24Hr): BMI result Body Mass Index 24.0 Labs Results: 05/07/22 13:16 05/07/22 13:16 Medications Medications Current Medications Acetaminophen (Acetaminophen 325 Mg Tablet) 650 mg PO Q6H PRN PRN Reason: Headache/Pain Mild Scale (1-3) Al Hydroxide/Mg Hydroxide (Magnesium Hydrox/Alum Hydrox 30 Ml Oral.Susp) 30 ml PO Q6H PRN PRN Reason: Heartburn/Nausea Haloperidol (Haloperidol 5 Mg Tablet) 5 mg PO QID PRN PRN Reason: psychosis, agitati [place] Carbonate ([place] Carbonate Er 300 Mg Tablet.Er) 600 mg PO BID [facility] Last Admin: 06/10/22 09:12 Dose: 600 mg Lorazepam (Lorazepam 1 Mg Tablet) 2 mg PO QID PRN PRN Reason: Anxiety Last Admin: 06/09/22 23:06 Dose: 2 mg Lorazepam (Lorazepam 2 Mg/Ml Vial) 2 mg IM BID PRN PRN Reason: Refusal of PO meds juan abdi Last Admin: 06/08/22 22:40 Dose: 2 mg Magnesium Hydroxide (Milk Of Magnesia 30 Ml Oral.Susp) 30 ml PO DAILY PRN PRN Reason: Constipation Olanzapine (Olanzapine 10 Mg Vial) 10 mg IM BID PRN PRN Reason: refusal of PO zyprexa, per debra Last Admin: 06/08/22 22:40 Dose: 10 mg Olanzapine (Olanzapine Odt 10 Mg Tab.Rapdis) 20 mg TRANSLINGU BEDTIME [facility] Last Admin: 06/09/22 22:38 Dose: 20 mg Olanzapine (Olanzapine Odt 10 Mg Tab.Rapdis) 20 mg TRANSLINGU DAILY [facility] Last Admin: 06/10/22 09:12 Dose: 20 mg Trazodone HCl (Trazodone Hcl 50 Mg Tablet) 50 mg PO BEDTIME PRN PRN Reason: Insomnia Last Admin: 05/27/22 20:11 Dose: 50 mg Allergies Allergies Allergy/AdvReac Type Severity Reaction Status Date / Time bupropion [From Wellbutrin] Allergy Mild CAUSES Unverified 03/07/20 15:04 SWOLLEN HEAD tetracycline [Tetracycline] Allergy Mild UNKNOWN Unverified 03/07/20 15:04 trifluoperazine Allergy Mild UNKNOWN Unverified 03/07/20 15:04 [From Stelazine] clozapine [From Clozaril] AdvReac Mild SEIZURES,NE Unverified 03/07/20 15:04 UTROPENIA Assessment & Plan Assessment & Plan (1) Schizoaffective disorder, bipolar type: Status: Acute Code(s): F25.0 - Schizoaffective disorder, bipolar type Plan Eriberto is a 56 y.o. male with a past medical history of schizoaffective disorder, bipolar type. He [place] [facility] [place] due to grandiose, paranoid delusional thought content, command AH. Per pt?s gf, he had been doing well until 05/02/22, however began responding to internal stimuli and on 05/06/22 he emptied his medications down the garbage disposal. Hx of IPLOC on section 8 at [facility] in September- November 2021. Stabilized on lithium and olanzapine. Plan: Pt signed a CV, however does not appear to understand the conditional voluntary form and felt forced into doing this, states he is actually involuntary for the admission, will reject the CV. Will continue lithium 600 mg BID and olanzapine 30 mg HS, however pt says he intends to refuse. Li level 0.53 on admission. 05/08: Continue to offer meds, pt is intrusive, bizarre, makes vague statements about harming himself or others if forced to take meds, on 5 min checks 05/09: Refused to meet, declining medication 05/10: Refuses meds, not engaging in tx 05/11: Refuses meds, not engaging in tx. Pt is now a section VII. Will change olanzapine to ODT to promote adherence. 05/13: took meds last night. irritable, labile. reporting AH. 05/14 continue tx. 05/15: not consistently taking medication. hypersexual, bizarre. threatened to stab staff with scissors (which he had in his hand) and was not cooperative in returning razor to staff after shaving. 05/16 not taking meds, sect 7 continues offering meds. 05/17 continue tx. not taking meds ,pending court. 05/18: refusing meds. exposing his genitalia in the skelton, licking the floor, throwing urine-soaked playing cards at staff. 05/19: refusing meds. ripped crowns off teeth and threw them away; smearing food on self and door; leaving urine footprints in the skelton, smelling and dripping of the stuff. given medication restraint of zyprexa 10 and benadryl 50 IM after throwing hot soup in the milieu with peers in the area. 05/20: no change in presentation. refusing medications, denies he has mental illness. 05/21: sedated from having taken zyprexa 30 PO mg this morning. pushed staff in order to access kitchen last night, got zyprexa and benadryl IM after. 05/22: periods of agitation. defecated in shower. pacing, trying exits. continue current mgmt. 05/23: pt refusing meds, night prior he was disruptive on unit i.e. tearing up board games, intrusive towards peers 05/24: no med changes, refusing meds 05/25: refusing meds. court . wednesday was storing feces wrapped in paper towels on his shelving to save the universe. incontinent of urine in the milieu, slow to change/wash. 05/26: took zyprexa yesterday morning, refusing lithium. irritable. you are all lesbians trying to take over the world. 05/27: refusing meds. hearing tomorrow. to staff trying to administer meds: shove it up your ass! to female staff attempting to provide care: get out, bitch. you're a dog. get on your knees. [id number] declined mtg with TERA. 05/28: taking food from others' trays and throwing it away, masturbating in milieu, calling female staff bitch, ripped up checks sheet from off of [employer]'s clipboard, urinating on floor, pouring bottle of water onto floor. committed and ordered medication. 05/29 continue tx, back up IM per court order. 05/30/2022: Has only received olanzapine for the last 1-2 days, therefore unable to clearly evaluate efficacy. Given intensity of behaviors and interact ions and psychosis, Will add olanzapine in the morning time i.e. 10 mg morning and 30 mg at bedtime with 10 mg IM backup morning and bedtime. Haldol as needed. 05/31/2022: No changes to current plan. Did have medication restraint today. 06/01: no change to plan. irritable, delusional. 06/02: no change in plan or presentation. 06/03: bizarre delusions. destroyed and threw away peer's art project. misogynistic comments. 06/04: irritable, verbally aggressive, refusing PO meds and getting IMs instead. 06/05: less verbally aggressive and irritable. took PO meds this morning rather than receive IMs. 06/07 no changes to tx plan 06/08: taking IMs all weekend. less aggressive and irritable, still disorganized and delusional. 06/09: PO meds this morning. defecated in shower and engaging in feces play yesterday. poor sleep. presentation essentially unchanged from yesterday. 06/10: stable presentation. loud, droning, disorganized, incoherent. taking meds PO. continue current mgmt. I spent ___20___ minutes with the patient and/or on the patient floor today, gr eater than?50% of which was spent counseling/coordinating care. Reason for contiued inpatient stay Substantial Risk for: inability to function and rapid decompensation Time Spent With Patient Time: Total time managing care of this patient today ____ minutes.
[2022-06-10 22:18] VITALS: RESP 14
[2022-06-11] MEDS: OLANZapine ODT 10 MG TAB.RAPDIS 20 MG TRANSLINGU ×2 (09:26→21:42)
[2022-06-11] MEDS: Lithium Carbonate ER 300 MG TABLET.ER 600 MG PO ×2 (09:26→21:43)
--- NOTE | 2022-06-11 15:56 | HO.PSYCHPN ---
Subjective Subjective Date of Service: 06/11/22 Reason For Visit: AH, delusional Interim History: initially calm and cooperative, droning about how diet here does not meet his needs. as soon as MD expresses sentiment he does not wish to hear becomes agitated and summarily dismisses MD. per staff, refusing one to one contacts. illogical. playing cards. denies anx/dep. safe. disrobing in his room. talking about evil girls, lesbians, taking over the universe. took all meds PO. did not sleep at all last night. Mental Status Exam Mental Status Exam Narrative: up and about the unit, appears adequately groomed. cooperative. no PMA/PMR. thoughts bizarre delusional and tangential, speech droning and loud. affect constricted, hypo-intense, labile. mood unknown. no SI/HI/AVH expressed. Diagnostics Vital Signs (24Hr): Vital Signs - 24 hr 06/10/22 22:18 Respiratory Rate 14 BMI result Body Mass Index 24.0 Labs Results: 05/07/22 13:16 05/07/22 13:16 Medications Medications Current Medications Acetaminophen (Acetaminophen 325 Mg Tablet) 650 mg PO Q6H PRN PRN Reason: Headache/Pain Mild Scale (1-3) Al Hydroxide/Mg Hydroxide (Magnesium Hydrox/Alum Hydrox 30 Ml Oral.Susp) 30 ml PO Q6H PRN PRN Reason: Heartburn/Nausea Haloperidol (Haloperidol 5 Mg Tablet) 5 mg PO QID PRN PRN Reason: psychosis, agitati [place] Carbonate ([place] Carbonate Er 300 Mg Tablet.Er) 600 mg PO BID [facility] Last Admin: 06/11/22 09:26 Dose: 600 mg Lorazepam (Lorazepam 1 Mg Tablet) 2 mg PO QID PRN PRN Reason: Anxiety Last Admin: 06/09/22 23:06 Dose: 2 mg Lorazepam (Lorazepam 2 Mg/Ml Vial) 2 mg IM BID PRN PRN Reason: Refusal of PO meds juan abdi Last Admin: 06/08/22 22:40 Dose: 2 mg Magnesium Hydroxide (Milk Of Magnesia 30 Ml Oral.Susp) 30 ml PO DAILY PRN PRN Reason: Constipation Olanzapine (Olanzapine 10 Mg Vial) 10 mg IM BID PRN PRN Reason: refusal of PO zyprexa, juan richardson Last Admin: 06/08/22 22:40 Dose: 10 mg Olanzapine (Olanzapine Odt 10 Mg Tab.Rapdis) 20 mg TRANSLINGU BEDTIME [facility] Last Admin: 06/10/22 22:16 Dose: 20 mg Olanzapine (Olanzapine Odt 10 Mg Tab.Rapdis) 20 mg TRANSLINGU DAILY [facility] Last Admin: 06/11/22 09:26 Dose: 20 mg Trazodone HCl (Trazodone Hcl 50 Mg Tablet) 50 mg PO BEDTIME PRN PRN Reason: Insomnia Last Admin: 05/27/22 20:11 Dose: 50 mg Allergies Allergies Allergy/AdvReac Type Severity Reaction Status Date / Time bupropion [From Wellbutrin] Allergy Mild CAUSES Unverified 03/07/20 15:04 SWOLLEN HEAD tetracycline [Tetracycline] Allergy Mild UNKNOWN Unverified 03/07/20 15:04 trifluoperazine Allergy Mild UNKNOWN Unverified 03/07/20 15:04 [From Stelazine] clozapine [From Clozaril] AdvReac Mild SEIZURES,NE Unverified 03/07/20 15:04 UTROPENIA Assessment & Plan Assessment & Plan (1) Schizoaffective disorder, bipolar type: Status: Acute Code(s): F25.0 - Schizoaffective disorder, bipolar type Plan Eriberto is a 56 y.o. male with a past medical history of schizoaffective disorder, bipolar type. He presented to [facility] ED on 05/07/22 due to grandiose, paranoid delusional thought content, command AH. Per pt?s gf, he had been doing well until 05/02/22, however began responding to internal stimuli and on 05/06/22 he emptied his medications down the garbage disposal. Hx of IPLOC on section 8 at [facility] M3 in September- November 2021. Stabilized on lithium and olanzapine. Plan: Pt signed a CV, however does not appear to understand the conditional voluntary form and felt forced into doing this, states he is actually involuntary for the admission, will reject the CV. Will continue lithium 600 mg BID and olanzapine 30 mg HS, however pt says he intends to refuse. Li level 0.53 on admission. 05/08: Continue to offer meds, pt is intrusive, bizarre, makes vague statements about harming himself or others if forced to take meds, on 5 min checks 05/09: Refused to meet, declining medication 05/10: Refuses meds, not engaging in tx 05/11: Refuses meds, not engaging in tx. Pt is now a section VII. Will change olanzapine to ODT to promote adherence. 05/13: took meds last night. irritable, labile. reporting AH. 05/14 continue tx. 05/15: not consistently taking medication. hypersexual, bizarre. threatened to stab staff with scissors (which he had in his hand) and was not cooperative in returning razor to staff after shaving. 05/16 not taking meds, sect 7 continues offering meds. 05/17 continue tx. not taking meds ,pending court. 05/18: refusing meds. exposing his genitalia in the skelton, licking the floor, throwing urine-soaked playing cards at staff. 05/19: refusing meds. ripped crowns off teeth and threw them away; smearing food on self and door; leaving urine footprints in the skelton, smelling and dripping of the stuff. given medication restraint of zyprexa 10 and benadryl 50 IM after throwing hot soup in the milieu with peers in the area. 05/20: no change in presentation. refusing medications, denies he has mental illness. 05/21: sedated from having taken zyprexa 30 PO mg this morning. pushed staff in order to access kitchen last night, got zyprexa and benadryl IM after. 05/22: periods of agitation. defecated in shower. pacing, trying exits. continue current mgmt. 05/23: pt refusing meds, night prior he was disruptive on unit i.e. tearing up board games, intrusive towards peers 05/24: no med changes, refusing meds 05/25: refusing meds. court . wednesday was storing feces wrapped in paper towels on his shelving to save the universe. incontinent of urine in the milieu, slow to change/wash. 05/26: took zyprexa yesterday morning, refusing lithium. irritable. you are all lesbians trying to take over the world. 05/27: refusing meds. hearing tomorrow. to staff trying to administer meds: shove it up your ass! to female staff attempting to provide care: get out, bitch. you're a dog. get on your knees. [email or web address] declined mtg with TERA. 05/28: taking food from others' trays and throwing it away, masturbating in milieu, calling female staff bitch, ripped up checks sheet from off of NA's clipboard, urinating on floor, pouring bottle of water onto floor. committed and ordered medication. 05/29 continue tx, back up IM per court order. 05/30/2022: Has only received olanzapine for the last 1-2 days, therefore unable to clearly evaluate efficacy. Given intensity of behaviors and interactions and psychosis, Will add olanzapine in the morning time i.e. 10 mg morning and 30 mg at bedtime with 10 mg IM backup morning and bedtime. Haldol as needed. 05/31/2022: No changes to current plan. Did have medication restraint today. 06/01: no change to plan. irritable, delusional. 06/02: no change in plan or presentation. 06/03: bizarre delusions. destroyed and threw away peer's art project. misogynistic comments. 06/04: irritable, verbally aggressive, refusing PO meds and getting IMs instead. 06/05: less verbally aggressive and irritable. took PO meds this morning rather than receive IMs. 06/07 no changes to tx plan 06/08: taking IMs all weekend. less aggressive and irritable, still disorganized and delusional. 06/09: PO meds this morning. defecated in shower and engaging in feces play yesterday. poor sleep. presentation essentially unchanged from yesterday. 06/10: stable presentation. loud, droning, disorganized, incoherent. taking meds PO. continue current mgmt. 06/11: stable presentation. loud, droning, disorganized, incoherent. taking meds PO. continue current mgmt. Reason for contiued inpatient stay Substantial Risk for: harm to self, harm to others, inability to function and rapid decompensation Time Spent With Patient Time: Total time managing care of this patient today _20___ minutes.
[2022-06-11] MEDS: LORazepam 1 MG TABLET 2 MG PO (18:24)
[2022-06-11 21:44] VITALS: RESP 14
[2022-06-12] MEDS: Lithium Carbonate ER 300 MG TABLET.ER 600 MG PO (08:24)
[2022-06-12] MEDS: OLANZapine ODT 10 MG TAB.RAPDIS 20 MG TRANSLINGU (08:24)
[2022-06-12 08:30] VITALS: RESP 18
--- NOTE | 2022-06-12 14:26 | HO.PSYCHPN ---
Subjective Subjective Date of Service: 06/12/22 Reason For Visit: AH, delusional Interim History: same presentation. wary, short, irritable, dismissive. per staff, limited participation. says he is doing great. sining in milieu. playing cards. PO meds. crying a bit in the kitchen, reason unknown. running in the skelton. dropped his pants (underwear on) and told staff to pull his pants up for him. calling staff dumb lesbian. slept 11-6. Mental Status Exam Mental Status Exam Narrative: up and about the unit, appears adequately groomed. cooperative. no PMA/PMR. thoughts bizarre delusional and tangential, speech droning and loud. affect constricted, hypo-intense, labile. mood unknown. no SI/HI/AVH expressed. Diagnostics Vital Signs (24Hr): Vital Signs - 24 hr 06/11/22 21:44 06/12/22 08:30 Respiratory Rate 14 18 BMI result Body Mass Index 24.0 Labs Results: 05/07/22 13:16 05/07/22 13:16 Medications Medications Current Medications Acetaminophen (Acetaminophen 325 Mg Tablet) 650 mg PO Q6H PRN PRN Reason: Headache/Pain Mild Scale (1-3) Al Hydroxide/Mg Hydroxide (Magnesium Hydrox/Alum Hydrox 30 Ml Oral.Susp) 30 ml PO Q6H PRN PRN Reason: Heartburn/Nausea Haloperidol (Haloperidol 5 Mg Tablet) 5 mg PO QID PRN PRN Reason: psychosis, agitati [place] Carbonate ([place] Carbonate Er 300 Mg Tablet.Er) 600 mg PO BID [facility] Last Admin: 06/12/22 08:24 Dose: 600 mg Lorazepam (Lorazepam 2 Mg/Ml Vial) 2 mg IM BID PRN PRN Reason: Refusal of PO meds per abdi Last Admin: 06/08/22 22:40 Dose: 2 mg Magnesium Hydroxide (Milk Of Magnesia 30 Ml Oral.Susp) 30 ml PO DAILY PRN PRN Reason: Constipation Olanzapine (Olanzapine 10 Mg Vial) 10 mg IM BID PRN PRN Reason: refusal of PO zyprexa, per debra Last Admin: 06/08/22 22:40 Dose: 10 mg Olanzapine (Olanzapine Odt 10 Mg Tab.Rapdis) 20 mg TRANSLINGU BEDTIME [facility] Last Admin: 06/11/22 21:42 Dose: 20 mg Olanzapine (Olanzapine Odt 10 Mg Tab.Rapdis) 20 mg TRANSLINGU DAILY [facility] Last Admin: 06/12/22 08:24 Dose: 20 mg Trazodone HCl (Trazodone Hcl 50 Mg Tablet) 50 mg PO BEDTIME PRN PRN Reason: Insomnia Last Admin: 05/27/22 20:11 Dose: 50 mg Allergies Allergies Allergy/AdvReac Type Severity Reaction Status Date / Time bupropion [From Wellbutrin] Allergy Mild CAUSES Unverified 03/07/20 15:04 SWOLLEN HEAD tetracycline [Tetracycline] Allergy Mild UNKNOWN Unverified 03/07/20 15:04 trifluoperazine Allergy Mild UNKNOWN Unverified 03/07/20 15:04 [From Stelazine] clozapine [From Clozaril] AdvReac Mild SEIZURES,NE Unverified 03/07/20 15:04 UTROPENIA Assessment & Plan Assessment & Plan (1) Schizoaffective disorder, bipolar type: Status: Acute Code(s): F25.0 - Schizoaffective disorder, bipolar type Plan Eriberto is a 56 y.o. male with a past medical history of schizoaffective disorder, bipolar type. He presented to [facility] ED on 05/07/22 due to grandiose, paranoid delusional thought content, command AH. Per pt?s gf, he had been doing well until 05/02/22, however began responding to internal stimuli and on 05/06/22 he emptied his medications down the garbage disposal. Hx of IPLOC on section 8 at [facility] M3 in September- November 2021. Stabilized on lithium and olanzapine. Plan: Pt signed a CV, however does not appear to understand the conditional voluntary form and felt forced into doing this, states he is actually involuntary for the admission, will reject the CV. Will continue lithium 600 mg BID and olanzapine 30 mg HS, however pt says he intends to refuse. Li level 0.53 on admission. 05/08: Continue to offer meds, pt is intrusive, bizarre, makes vague statements about harming himself or others if forced to take meds, on 5 min checks 05/09: Refused to meet, declining medication 05/10: Refuses meds, not engaging in tx 05/11: Refuses meds, not engaging in tx. Pt is now a section VII. Will change olanzapine to ODT to promote adherence. 05/13: took meds last night. irritable, labile. reporting AH. 05/14 continue tx. 05/15: not consistently taking medication. hypersexual, bizarre. threatened to stab staff with scissors (which he had in his hand) and was not cooperative in returning razor to staff after shaving. 05/16 not taking meds, sect 7 continues offering meds. 05/17 continue tx. not taking meds ,pending court. 05/18: refusing meds. exposing his genitalia in the skel[place], licking the floor, throwing urine-soaked playing cards at staff. 05/19: refusing meds. ripped crowns off teeth and threw them away; smearing food on self and door; leaving urine footprints in the skel[place], smelling and dripping of the stuff. given medication restraint of zyprexa 10 and benadryl 50 IM after throwing hot soup in the milieu with peers in the area. 05/20: no change in presentation. refusing medications, denies he has mental illness. 05/21: sedated from having taken zyprexa 30 PO mg this morning. pushed staff in order to access kitchen last night, got zyprexa and benadryl IM after. 05/22: periods of agitation. defecated in shower. pacing, trying exits. continue current mgmt. 05/23: pt refusing meds, night prior he was disruptive on unit i.e. tearing up board games, intrusive towards peers 05/24: no med changes, refusing meds 05/25: refusing meds. court . wednesday was storing feces wrapped in paper towels on his shelving to save the universe. incontinent of urine in the milieu, slow to change/wash. 05/26: took zyprexa yesterday morning, refusing lithium. irritable. you are all lesbians trying to take over the world. 05/27: refusing meds. hearing tomorrow. to staff trying to administer meds: shove it up your ass! to female staff attempting to provide care: get out, bitch. you're a dog. get on your knees. [email or web address] declined mtg with TERA. 12/8: taking food from others' trays and throwing it away, masturbating in milieu, calling female staff bitch, ripped up checks sheet from off of [employer]'s clipboard, urinating on floor, pouring bottle of water onto floor. committed and ordered medication. 05/29 continue tx, back up IM per court order. 05/30/2022: Has only received olanzapine for the last 1-2 days, therefore unable to clearly evaluate efficacy. Given intensity of behaviors and interactions and psychosis, Will add olanzapine in the morning time i.e. 10 mg morning and 30 mg at bedtime with 10 mg IM backup morning and bedtime. Haldol as needed. 05/31/2022: No changes to current plan. Did have medication restraint today. 06/01: no change to plan. irritable, delusional. 06/02: no change in plan or presentation. 06/03: bizarre delusions. destroyed and threw away peer's art project. misogynistic comments. 06/04: irritable, verbally aggressive, refusing PO meds and getting IMs instead. 06/05: less verbally aggressive and irritable. took PO meds this morning rather than receive IMs. 06/07 no changes to tx plan 06/08: taking IMs all weekend. less aggressive and irritable, still disorganized and delusional. 06/09: PO meds this morning. defecated in shower and engaging in feces play yesterday. poor sleep. presentation essentially unchanged from yesterday. 06/10: stable presentation. loud, droning, disorganized, incoherent. taking meds PO. continue current mgmt. 06/11: stable presentation. loud, droning, disorganized, incoherent. taking meds PO. continue current mgmt. 06/12: stable presentation. loud, droning, disorganized, incoherent. taking meds PO. continue current mgmt. Reason for contiued inpatient stay Substantial Risk for: harm to self, harm to others, inability to function and rapid decompensation Time Spent With Patient Time: Total time managing care of this patient today __20__ minutes.
[2022-06-12 22:38] VITALS: RESP 16
[2022-06-12] MEDS: OLANZapine 10 MG VIAL IM (22:55)
[2022-06-13] MEDS: OLANZapine ODT 10 MG TAB.RAPDIS 20 MG TRANSLINGU ×2 (08:12→22:05)
[2022-06-13] MEDS: Lithium Carbonate ER 300 MG TABLET.ER 600 MG PO ×2 (08:12→22:03)
[2022-06-13 10:29] VITALS: RESP 18
--- NOTE | 2022-06-13 12:39 | HO.PSYCHPN ---
Subjective Subjective Date of Service: 06/13/22 Reason For Visit: AH, delusional Interim History: Pt on Section 8. He declined to meet with T/W, attempted to ask questions, however pt walked by and did not respond to questions. He refused meds last night, accepted IM meds per Devan's order without incident. Mental Status Exam Mental Status Exam Narrative: up and about the unit, appears adequately groomed.? cooperative.? no PMA/PMR.? thoughts bizarre delusional and tangential, speech droning and loud.? affect constricted, hypo-intense, labile.? mood unknown.? no SI/HI/AVH expressed. Diagnostics Vital Signs (24Hr): Vital Signs - 24 hr 06/12/22 22:38 06/13/22 10:29 Respiratory Rate 16 18 BMI result Body Mass Index 24.0 Labs Results: 05/07/22 13:16 05/07/22 13:16 Medications Medications Current Medications Acetaminophen (Acetaminophen 325 Mg Tablet) 650 mg PO Q6H PRN PRN Reason: Headache/Pain Mild Scale (1-3) Al Hydroxide/Mg Hydroxide (Magnesium Hydrox/Alum Hydrox 30 Ml Oral.Susp) 30 ml PO Q6H PRN PRN Reason: Heartburn/Nausea Haloperidol (Haloperidol 5 Mg Tablet) 5 mg PO QID PRN PRN Reason: psychosis, agitati [place] Carbonate ([place] Carbonate Er 300 Mg Tablet.Er) 600 mg PO BID [facility] Last Admin: 06/13/22 08:12 Dose: 600 mg Lorazepam (Lorazepam 2 Mg/Ml Vial) 2 mg IM BID PRN PRN Reason: Refusal of PO meds per [place]in[place] Last Admin: 06/12/22 22:55 Dose: 2 mg Magnesium Hydroxide (Milk Of Magnesia 30 Ml Oral.Susp) 30 ml PO DAILY PRN PRN Reason: Constipation Olanzapine (Olanzapine 10 Mg Vial) 10 mg IM BID PRN PRN Reason: refusal of PO zyprexa, per debra Last Admin: 06/12/22 22:55 Dose: 10 mg Olanzapine (Olanzapine Odt 10 Mg Tab.Rapdis) 20 mg TRANSLINGU BEDTIME [facility] Last Admin: 06/12/22 22:53 Dose: Not Given Olanzapine (Olanzapine Odt 10 Mg Tab.Rapdis) 20 mg TRANSLINGU DAILY [facility] Last Admin: 06/13/22 08:12 Dose: 20 mg Trazodone HCl (Trazodone Hcl 50 Mg Tablet) 50 mg PO BEDTIME PRN PRN Reason: Insomnia Last Admin: 05/27/22 20:11 Dose: 50 mg Allergies Allergies Allergy/AdvReac Type Severity Reaction Status Date / Time bupropion [From Wellbutrin] Allergy Mild CAUSES Unverified 03/07/20 15:04 SWOLLEN HEAD tetracycline [Tetracycline] Allergy Mild UNKNOWN Unverified 03/07/20 15:04 trifluoperazine Allergy Mild UNKNOWN Unverified 03/07/20 15:04 [From Stelazine] clozapine [From Clozaril] AdvReac Mild SEIZURES,NE Unverified 03/07/20 15:04 UTROPENIA Assessment & Plan Assessment & Plan (1) Schizoaffective disorder, bipolar type: Status: Acute Code(s): F25.0 - Schizoaffective disorder, bipolar type Plan Eriberto is a 56 y.o. male with a past medical history of schizoaffective disorder, bipolar type. He presented to [facility] ED on 05/07/22 due to grandiose, paranoid delusional thought content, command AH. Per pt?s gf, he had been doing well until 05/02/22, however began responding to internal stimuli and on 05/06/22 he emptied his medications down the garbage disposal. Hx of IPLOC on section 8 at [facility] M3 in September- November 2021. Stabilized on lithium and olanzapine. Plan: Pt signed a CV, however does not appear to understand the conditional voluntary form and felt forced into doing this, states he is actually involuntary for the admission, will reject the CV. Will continue lithium 600 mg BID and olanzapine 30 mg HS, however pt says he intends to refuse. Li level 0.53 on admission. 05/08: Continue to offer meds, pt is intrusive, bizarre, makes vague statements about harming himself or others if forced to take meds, on 5 min checks 05/09: Refused to meet, declining medication 05/10: Refuses meds, not engaging in tx 05/11: Refuses meds, not engaging in tx. Pt is now a section VII. Will change olanzapine to ODT to promote adherence. 05/13: took meds last night. irritable, labile. reporting AH. 05/14 continue tx. 05/15: not consistently taking medication. hypersexual, bizarre. threatened to stab staff with scissors (which he had in his hand) and was not cooperative in returning razor to staff after shaving. 05/16 not taking meds, sect 7 continues offering meds. 05/17 continue tx. not taking meds ,pending court. 05/18: refusing meds. exposing his genitalia in the [place]el[place], licking the floor, throwing urine-soaked playing cards at staff. 05/19: refusing meds. ripped crowns off teeth and threw them away; smearing food on self and door; leaving urine footprints in the [place]el[place], smelling and dripping of the stuff. given medication restraint of zyprexa 10 and benadryl 50 IM after throwing hot soup in the milieu with peers in the area. 05/20: no change in presentation. refusing medications, denies he has mental illness. 05/21: sedated from having taken zyprexa 30 PO mg this morning. pushed staff in order to access kitchen last night, got zyprexa and benadryl IM after. 05/22: periods of agitation. defecated in shower. pacing, trying exits. continue current mgmt. 05/23: pt refusing meds, night prior he was disruptive on unit i.e. tearing up board games, intrusive towards peers 05/24: no med changes, refusing meds 05/25: refusing meds. court . wednesday was storing feces wrapped in paper towels on his shelving to save the universe. incontinent of urine in the milieu, slow to change/wash. 05/26: took zyprexa yesterday morning, refusing lithium. irritable. you are all lesbians trying to take over the world. 05/27: refusing meds. hearing tomorrow. to staff trying to administer meds: shove it up your ass! to female staff attempting to provide care: get out, bitch. you're a dog. get on your knees. [email or web address] declined mtg with TERA. 05/28: taking food from others' trays and throwing it away, masturbating in milieu, calling female staff bitch, ripped up checks sheet from off of [employer]'s clipboard, urinating on floor, pouring bottle of water onto floor. committed and ordered medication. 05/29 continue tx, back up IM per court order. 05/30/2022: Has only received olanzapine for the last 1-2 days, therefore unable to clearly evaluate efficacy. Given intensity of behaviors and interactions and psychosis, Will add olanzapine in the morning time i.e. 10 mg morning and 30 mg at bedtime with 10 mg IM backup morning and bedtime. Haldol as needed. 05/31/2022: No changes to current plan. Did have medication restraint today. 06/01: no change to plan. irritable, delusional. 06/02: no change in plan or presentation. 06/03: bizarre delusions. destroyed and threw away peer's art project. misogynistic comments. 06/04: irritable, verbally aggressive, refusing PO meds and getting IMs instead. 06/05: less verbally aggressive and irritable. took PO meds this morning rather than receive IMs. 06/07 no changes to tx plan 06/08: taking IMs all weekend. less aggressive and irritable, still disorganized and delusional. 06/09: PO meds this morning. defecated in shower and engaging in feces play yesterday. poor sleep. presentation essentially unchanged from yesterday. 06/10: stable presentation. loud, droning, disorganized, incoherent. taking meds PO. continue current mgmt. 06/11: stable presentation. loud, droning, disorganized, incoherent. taking meds PO. continue current mgmt. 06/12: stable presentation. loud, droning, disorganized, incoherent. taking meds PO. continue current mgmt. 06/13: Pt refused PO meds on evening of 06/12, received IMs. no changes to tx. disorganized, psychotic. Patient educated on: other Reason for contiued inpatient stay Substantial Risk for: inability to function, rapid decompensation and med/psych decompensation Time Spent With Patient Time: Total time managing care of this patient today ____ minutes.
[2022-06-13 18:00] VITALS: RESP 18
[2022-06-14] MEDS: Lithium Carbonate ER 300 MG TABLET.ER 600 MG PO ×2 (08:05→21:25)
[2022-06-14] MEDS: OLANZapine ODT 10 MG TAB.RAPDIS 20 MG TRANSLINGU ×2 (08:05→21:25)
--- NOTE | 2022-06-14 11:11 | HO.PSYCHPN ---
Subjective Subjective Date of Service: 06/14/22 Reason For Visit: AH, delusional Interim History: Discussed with team. He was upset about not being able to shave, made inappropriate comments to staff, adherent with PO meds. I spoke with pt, says he is good enough. Asks why am i still in this in hospital? Says he has trouble in my head, brain, skull, adult living human body. Reports i didnt sleep at all, i dont need sleep, however staff report pt slept. Appetite is good, Im eating what you give me. Mental Status Exam Mental Status Exam Narrative: up and about the unit, appears adequately groomed.? cooperative.? no PMA/PMR.? thoughts bizarre delusional and tangential, speech droning and loud.? affect constricted, hypo-intense, labile.? mood unknown.? no SI/HI/AVH expressed. Diagnostics Vital Signs (24Hr): Vital Signs - 24 hr 06/13/22 18:00 Respiratory Rate 18 BMI result Body Mass Index 24.0 Labs Results: 05/07/22 13:16 05/07/22 13:16 Medications Medications Current Medications Acetaminophen (Acetaminophen 325 Mg Tablet) 650 mg PO Q6H PRN PRN Reason: Headache/Pain Mild Scale (1-3) Al Hydroxide/Mg Hydroxide (Magnesium Hydrox/Alum Hydrox 30 Ml Oral.Susp) 30 ml PO Q6H PRN PRN Reason: Heartburn/Nausea Haloperidol (Haloperidol 5 Mg Tablet) 5 mg PO QID PRN PRN Reason: psychosis, agitati [place] Carbonate ([place] Carbonate Er 300 Mg Tablet.Er) 600 mg PO BID [facility] Last Admin: 06/14/22 08:05 Dose: 600 mg Lorazepam (Lorazepam 2 Mg/Ml Vial) 2 mg IM BID PRN PRN Reason: Refusal of PO meds per abdi Last Admin: 06/12/22 22:55 Dose: 2 mg Magnesium Hydroxide (Milk Of Magnesia 30 Ml Oral.Susp) 30 ml PO DAILY PRN PRN Reason: Constipation Olanzapine (Olanzapine 10 Mg Vial) 10 mg IM BID PRN PRN Reason: refusal of PO zyprexa, per debra Last Admin: 06/12/22 22:55 Dose: 10 mg Olanzapine (Olanzapine Odt 10 Mg Tab.Rapdis) 20 mg TRANSLINGU BEDTIME [facility] Last Admin: 06/13/22 22:05 Dose: 20 mg Olanzapine (Olanzapine Odt 10 Mg Tab.Rapdis) 20 mg TRANSLINGU DAILY [facility] Last Admin: 06/14/22 08:05 Dose: 20 mg Trazodone HCl (Trazodone Hcl 50 Mg Tablet) 50 mg PO BEDTIME PRN PRN Reason: Insomnia Last Admin: 05/27/22 20:11 Dose: 50 mg Allergies Allergies Allergy/AdvReac Type Severity Reaction Status Date / Time bupropion [From Wellbutrin] Allergy Mild CAUSES Unverified 03/07/20 15:04 SWOLLEN HEAD tetracycline [Tetracycline] Allergy Mild UNKNOWN Unverified 03/07/20 15:04 trifluoperazine Allergy Mild UNKNOWN Unverified 03/07/20 15:04 [From Stelazine] clozapine [From Clozaril] AdvReac Mild SEIZURES,NE Unverified 03/07/20 15:04 UTROPENIA Assessment & Plan Assessment & Plan (1) Schizoaffective disorder, bipolar type: Status: Acute Code(s): F25.0 - Schizoaffective disorder, bipolar type Plan Eriberto is a 56 y.o. male with a past medical history of schizoaffective disorder, bipolar type. He presented to [facility] ED on 05/07/22 due to grandiose, paranoid delusional thought content, command AH. Per pt?s gf, he had been doing well until 05/02/22, however began responding to internal stimuli and on 05/06/22 he emptied his medications down the garbage disposal. Hx of IPLOC on section 8 at [facility] M3 in September- November 2021. Stabilized on lithium and olanzapine. Plan: Pt signed a CV, however does not appear to understand the conditional voluntary form and felt forced into doing this, states he is actually involuntary for the admission, will reject the CV. Will continue lithium 600 mg BID and olanzapine 30 mg HS, however pt says he intends to refuse. Li level 0.53 on admission. 05/08: Continue to offer meds, pt is intrusive, bizarre, makes vague statements about harming himself or others if forced to take meds, on 5 min checks 05/09: Refused to meet, declining medication 05/10: Refuses meds, not engaging in tx 05/11: Refuses meds, not engaging in tx. Pt is now a section VII. Will change olanzapine to ODT to promote adherence. 05/13: took meds last night. irritable, labile. reporting AH. 05/14 continue tx. 05/15: not consistently taking medication. hypersexual, bizarre. threatened to stab staff with scissors (which he had in his hand) and was not cooperative in returning razor to staff after shaving. 05/16 not taking meds, sect 7 continues offering meds. 05/17 continue tx. not taking meds ,pending court. 05/18: refusing meds. exposing his genitalia in the skelton, licking the floor, throwing urine-soaked playing cards at staff. 05/19: refusing meds. ripped crowns off teeth and threw them away; smearing food on self and door; leaving urine footprints in the skelton, smelling and dripping of the stuff. given medication restraint of zyprexa 10 and benadryl 50 IM after throwing hot soup in the milieu with peers in the area. 05/20: no change in presentation. refusing medications, denies he has mental illness. 05/21: sedated from having taken zyprexa 30 PO mg this morning. pushed staff in order to access kitchen last night, got zyprexa and benadryl IM after. 05/22: periods of agitation. defecated in shower. pacing, trying exits. continue current mgmt. 05/23: pt refusing meds, night prior he was disruptive on unit i.e. tearing up board games, intrusive towards peers 05/24: no med changes, refusing meds 05/25: refusing meds. court . wednesday was storing feces wrapped in paper towels on his shelving to save the universe. incontinent of urine in the milieu, slow to change/wash. 05/26: took zyprexa yesterday morning, refusing lithium. irritable. you are all lesbians trying to take over the world. 05/27: refusing meds. hearing tomorrow. to staff trying to administer meds: shove it up your ass! to female staff attempting to provide care: get out, bitch. you're a dog. get on your knees. [id number] declined mtg with TERA. 05/28: taking food from others' trays and throwing it away, masturbating in milieu, calling female staff bitch, ripped up checks sheet from off of [employer] clipboard, urinating on floor, pouring bottle of water onto floor. committed and ordered medication. 05/29 continue tx, back up IM per court order. 05/30/2022: Has only received olanzapine for the last 1-2 days, therefore unable to clearly evaluate efficacy. Given intensity of behaviors and interactions and psychosis, Will add olanzapine in the morning time i.e. 10 mg morning and 30 mg at bedtime with 10 mg IM backup morning and bedtime. Haldol as needed. 05/31/2022: No changes to current plan. Did have medication restraint today. 06/01: no change to plan. irritable, delusional. 06/02: no change in plan or presentation. 06/03: bizarre delusions. destroyed and threw away peer's art project. misogynistic comments. 06/04: irritable, verbally aggressive, refusing PO meds and getting IMs instead. 06/05: less verbally aggressive and irritable. took PO meds this morning rather than receive IMs. 06/07 no changes to tx plan 06/08: taking IMs all weekend. less aggressive and irritable, still disorganized and delusional. 06/09: PO meds this morning. defecated in shower and engaging in feces play yesterday. poor sleep. presentation essentially unchanged from yesterday. 06/10: stable presentation. loud, droning, disorganized, incoherent. taking meds PO. continue current mgmt. 06/11: stable presentation. loud, droning, disorganized, incoherent. taking meds PO. continue current mgmt. 06/12: stable presentation. loud, droning, disorganized, incoherent. taking meds PO. continue current mgmt. 06/13: Pt refused PO meds on evening of 06/12, received IMs. no changes to tx. disorganized, psychotic. 06/14: adherent with PO meds, some inappropriate comments Patient educated on: other Reason for contiued inpatient stay Substantial Risk for: inability to function, rapid decompensation and med/psych decompensation Time Spent With Patient Time: Total time managing care of this patient today ____ minutes.
[2022-06-14 18:00] VITALS: RESP 18
[2022-06-15] MEDS: OLANZapine ODT 10 MG TAB.RAPDIS 20 MG TRANSLINGU ×2 (08:25→20:10)
[2022-06-15] MEDS: Lithium Carbonate ER 300 MG TABLET.ER 600 MG PO ×2 (08:25→20:10)
--- NOTE | 2022-06-15 13:19 | HO.PSYCHPN ---
Subjective Subjective Date of Service: 06/15/22 Reason For Visit: AH, delusional Interim History: Discussed with team, who felt pt is appropriate to be taken off Q5min checks, has been in behavioral control, no safety concerns. I spoke with pt, he is found playing cards in milieu, says What do you want? when approached. Has no questions or concerns. Mental Status Exam Mental Status Exam Narrative: up and about the unit, appears adequately groomed.? cooperative.? no PMA/PMR.? thoughts bizarre delusional and tangential, speech droning and loud.? affect constricted, hypo-intense, labile.? mood unknown.? no SI/HI/AVH expressed. Diagnostics Vital Signs (24Hr): Vital Signs - 24 hr 06/14/22 18:00 Respiratory Rate 18 BMI result Body Mass Index 24.0 Labs Results: 05/07/22 13:16 05/07/22 13:16 Medications Medications Current Medications Acetaminophen (Acetaminophen 325 Mg Tablet) 650 mg PO Q6H PRN PRN Reason: Headache/Pain Mild Scale (1-3) Al Hydroxide/Mg Hydroxide (Magnesium Hydrox/Alum Hydrox 30 Ml Oral.Susp) 30 ml PO Q6H PRN PRN Reason: Heartburn/Nausea Haloperidol (Haloperidol 5 Mg Tablet) 5 mg PO QID PRN PRN Reason: psychosis, agitati [place] Carbonate ([place] Carbonate Er 300 Mg Tablet.Er) 600 mg PO BID [facility] Last Admin: 06/15/22 08:25 Dose: 600 mg Lorazepam (Lorazepam 2 Mg/Ml Vial) 2 mg IM BID PRN PRN Reason: Refusal of PO meds per [place] Last Admin: 06/12/22 22:55 Dose: 2 mg Magnesium Hydroxide (Milk Of Magnesia 30 Ml Oral.Susp) 30 ml PO DAILY PRN PRN Reason: Constipation Olanzapine (Olanzapine 10 Mg Vial) 10 mg IM BID PRN PRN Reason: refusal of PO zyprexa, per debra Last Admin: 06/12/22 22:55 Dose: 10 mg Olanzapine (Olanzapine Odt 10 Mg Tab.Rapdis) 20 mg TRANSLINGU BEDTIME [facility] Last Admin: 06/14/22 21:25 Dose: 20 mg Olanzapine (Olanzapine Odt 10 Mg Tab.Rapdis) 20 mg TRANSLINGU DAILY [facility] Last Admin: 06/15/22 08:25 Dose: 20 mg Trazodone HCl (Trazodone Hcl 50 Mg Tablet) 50 mg PO BEDTIME PRN PRN Reason: Insomnia Last Admin: 05/27/22 20:11 Dose: 50 mg Allergies Allergies Allergy/AdvReac Type Severity Reaction Status Date / Time bupropion [From Wellbutrin] Allergy Mild CAUSES Unverified 03/07/20 15:04 SWOLLEN HEAD tetracycline [Tetracycline] Allergy Mild UNKNOWN Unverified 03/07/20 15:04 trifluoperazine Allergy Mild UNKNOWN Unverified 03/07/20 15:04 [From Stelazine] clozapine [From Clozaril] AdvReac Mild SEIZURES,NE Unverified 03/07/20 15:04 UTROPENIA Assessment & Plan Assessment & Plan (1) Schizoaffective disorder, bipolar type: Status: Acute Code(s): F25.0 - Schizoaffective disorder, bipolar type Plan Eriberto is a 56 y.o. male with a past medical history of schizoaffective disorder, bipolar type. He presented to [facility] ED on 05/07/22 due to grandiose, paranoid delusional thought content, command AH. Per pt?s gf, he had been doing well until 05/02/22, however began responding to internal stimuli and on 05/06/22 he emptied his medications down the garbage disposal. Hx of IPLOC on section 8 at [facility] M3 in September- November 2021. Stabilized on lithium and olanzapine. Plan: Pt signed a CV, however does not appear to understand the conditional voluntary form and felt forced into doing this, states he is actually involuntary for the admission, will reject the CV. Will continue lithium 600 mg BID and olanzapine 30 mg HS, however pt says he intends to refuse. Li level 0.53 on admission. 05/08: Continue to offer meds, pt is intrusive, bizarre, makes vague statements about harming himself or others if forced to take meds, on 5 min checks 05/09: Refused to meet, declining medication 05/10: Refuses meds, not engaging in tx 05/11: Refuses meds, not engaging in tx. Pt is now a section VII. Will change olanzapine to ODT to promote adherence. 05/13: took meds last night. irritable, labile. reporting AH. 05/14 continue tx. 05/15: not consistently taking medication. hypersexual, bizarre. threatened to stab staff with scissors (which he had in his hand) and was not cooperative in returning razor to staff after shaving. 05/16 not taking meds, sect 7 continues offering meds. 05/17 continue tx. not taking meds ,pending court. 05/18: refusing meds. exposing his genitalia in the skelton, licking the floor, throwing urine-soaked playing cards at staff. 05/19: refusing meds. ripped crowns off teeth and threw them away; smearing food on self and door; leaving urine footprints in the skelton, smelling and dripping of the stuff. given medication restraint of zyprexa 10 and benadryl 50 IM after throwing hot soup in the milieu with peers in the area. 05/20: no change in presentation. refusing medications, denies he has mental illness. 05/21: sedated from having taken zyprexa 30 PO mg this morning. pushed staff in order to access kitchen last night, got zyprexa and benadryl IM after. 05/22: periods of agitation. defecated in shower. pacing, trying exits. continue current mgmt. 05/23: pt refusing meds, night prior he was disruptive on unit i.e. tearing up board games, intrusive towards peers 05/24: no med changes, refusing meds 05/25: refusing meds. court . wednesday was storing feces wrapped in paper towels on his shelving to save the universe. incontinent of urine in the milieu, slow to change/wash. 05/26: took zyprexa yesterday morning, refusing lithium. irritable. you are all lesbians trying to take over the world. 05/27: refusing meds. hearing tomorrow. to staff trying to administer meds: shove it up your ass! to female staff attempting to provide care: get out, bitch. you're a dog. get on your knees. [id number] declined mtg with TERA. 05/28: taking food from others' trays and throwing it away, masturbating in milieu, calling female staff bitch, ripped up checks sheet from off of [employer] clipboard, urinating on floor, pouring bottle of water onto floor. committed and ordered medication. 05/29 continue tx, back up IM per court order. 05/30/2022: Has only received olanzapine for the last 1-2 days, therefore unable to clearly evaluate efficacy. Given intensity of behaviors and interactions and psychosis, Will add olanzapine in the morning time i.e. 10 mg morning and 30 mg at bedtime with 10 mg IM backup morning and bedtime. Haldol as needed. 05/31/2022: No changes to current plan. Did have medication restraint today. 06/01: no change to plan. irritable, delusional. 06/02: no change in plan or presentation. 06/03: bizarre delusions. destroyed and threw away peer's art project. misogynistic comments. 06/04: irritable, verbally aggressive, refusing PO meds and getting IMs instead. 06/05: less verbally aggressive and irritable. took PO meds this morning rather than receive IMs. 06/07 no changes to tx plan 06/08: taking IMs all weekend. less aggressive and irritable, still disorganized and delusional. 06/09: PO meds this morning. defecated in shower and engaging in feces play yesterday. poor sleep. presentation essentially unchanged from yesterday. 06/10: stable presentation. loud, droning, disorganized, incoherent. taking meds PO. continue current mgmt. 06/11: stable presentation. loud, droning, disorganized, incoherent. taking meds PO. continue current mgmt. 06/12: stable presentation. loud, droning, disorganized, incoherent. taking meds PO. continue current mgmt. 06/13: Pt refused PO meds on evening of 06/12, received IMs. no changes to tx. disorganized, psychotic. 06/14: adherent with PO meds, some inappropriate comments 06/15: off Q5 min checks, adherent with PO meds Patient educated on: other Reason for contiued inpatient stay Substantial Risk for: inability to function, rapid decompensation and med/psych decompensation Time Spent With Patient Time: Total time managing care of this patient today ____ minutes.
[2022-06-16] MEDS: Lithium Carbonate ER 300 MG TABLET.ER 600 MG PO ×2 (08:13→20:50)
[2022-06-16] MEDS: OLANZapine ODT 10 MG TAB.RAPDIS 20 MG TRANSLINGU ×2 (08:13→20:50)
[2022-06-16 08:17] VITALS: RESP 18
--- NOTE | 2022-06-16 16:24 | P.PNPSI_ITS ---
Subjective Subjective Date of Service: 06/16/22 Reason For Visit: AH, delusional Interim History: Patient's case reviewed in treatment team irritable angry edge when seen limited insight makes comments about not wanting to take medication last lithium level about a month ago patient seems like he has not been responding to olanzapine. Mental Status Exam Mental Status Exam Narrative: Patient was casually dressed he had an angry look on his face saying that he was finding needed to be released asking why he was taking medication twice a day stated he did not need medication would not answer questions about harm to self or others was not overtly threatening but did seem agitated irritable Diagnostics Vital Signs (24Hr): Vital Signs - 24 hr 06/16/22 08:17 Respiratory Rate 18 BMI result Body Mass Index 24.0 Labs Results: 05/07/22 13:16 05/07/22 13:16 Medications Medications Current Medications Acetaminophen (Acetaminophen 325 Mg Tablet) 650 mg PO Q6H PRN PRN Reason: Headache/Pain Mild Scale (1-3) Al Hydroxide/Mg Hydroxide (Magnesium Hydrox/Alum Hydrox 30 Ml Oral.Susp) 30 ml PO Q6H PRN PRN Reason: Heartburn/Nausea Haloperidol (Haloperidol 5 Mg Tablet) 5 mg PO QID PRN PRN Reason: psychosis, agitati [place] Carbonate ([place] Carbonate Er 300 Mg Tablet.Er) [address] [facility] Last Admin: 06/16/22 08:13 Dose: 600 mg Lorazepam (Lorazepam 2 Mg/Ml Vial) 2 mg IM BID PRN PRN Reason: Refusal of PO meds per abdi Last Admin: 06/12/22 22:55 Dose: 2 mg Magnesium Hydroxide (Milk Of Magnesia 30 Ml Oral.Susp) 30 ml PO DAILY PRN PRN Reason: Constipation Olanzapine (Olanzapine 10 Mg Vial) 10 mg IM BID PRN PRN Reason: refusal of PO zyprexa, per debra Last Admin: 06/12/22 22:55 Dose: 10 mg Olanzapine (Olanzapine Odt 10 Mg Tab.Rapdis) [address] [facility] Last Admin: 06/15/22 20:10 Dose: 20 mg Olanzapine (Olanzapine Odt 10 Mg Tab.Rapdis) [address] [facility] Last Admin: 06/16/22 08:13 Dose: 20 mg Trazodone HCl (Trazodone Hcl 50 Mg Tablet) 50 mg PO BEDTIME PRN PRN Reason: Insomnia Last Admin: 05/27/22 20:11 Dose: 50 mg Allergies Allergies Allergy/AdvReac Type Severity Reaction Status Date / Time bupropion [From Wellbutrin] Allergy Mild CAUSES Unverified 03/07/20 15:04 SWOLLEN HEAD tetracycline [Tetracycline] Allergy Mild UNKNOWN Unverified 03/07/20 15:04 trifluoperazine Allergy Mild UNKNOWN Unverified 03/07/20 15:04 [From Stelazine] clozapine [From Clozaril] AdvReac Mild SEIZURES,NE Unverified 03/07/20 15:04 UTROPENIA Assessment & Plan Assessment & Plan (1) Schizoaffective disorder, bipolar type: Status: Acute Code(s): F25.0 - Schizoaffective disorder, bipolar type Plan Eriberto is a 56 y.o. male with a past medical history of schizoaffective disorder, bipolar type. He presented to [facility] ED on 05/07/22 due to grandiose, paranoid delusional thought content, command AH. Per pt?s gf, he had been doing well until 05/02/22, however began responding to internal stimuli and on 05/06/22 he emptied his medications down the garbage disposal. Hx of IPLOC on section 8 at [facility] M3 in September- November 2021. Stabilized on lithium and olanzapine. Plan: Pt signed a CV, however does not appear to understand the conditional voluntary form and felt forced into doing this, states he is actually involuntary for the admission, will reject the CV. Will continue lithium 600 mg BID and olanzapine 30 mg HS, however pt says he intends to refuse. Li level 0.53 on admission. 05/08: Continue to offer meds, pt is intrusive, bizarre, makes vague statements about harming himself or others if forced to take meds, on 5 min checks 05/09: Refused to meet, declining medication 05/10: Refuses meds, not engaging in tx 05/11: Refuses meds, not engaging in tx. Pt is now a section VII. Will change olanzapine to ODT to promote adherence. 05/13: took meds last night. irritable, labile. reporting AH. 05/14 continue tx. 05/15: not consistently taking medication. hypersexual, bizarre. threatened to stab staff with scissors (which he had in his hand) and was not cooperative in returning razor to staff after shaving. 05/16 not taking meds, sect 7 continues offering meds. 05/17 continue tx. not taking meds ,pending court. 05/18: refusing meds. exposing his genitalia in the skel[place], licking the floor, throwing urine-soaked playing cards at staff. 05/19: refusing meds. ripped crowns off teeth and threw them away; smearing food on self and door; leaving urine footprints in the skel[place], smelling and dripping of the stuff. given medication restraint of zyprexa 10 and benadryl 50 IM after throwing hot soup in the milieu with peers in the area. 05/20: no change in presentation. refusing medications, denies he has mental illness. 05/21: sedated from having taken zyprexa 30 PO mg this morning. pushed staff in order to access kitchen last night, got zyprexa and benadryl IM after. 05/22: periods of agitation. defecated in shower. pacing, trying exits. continue current mgmt. 05/23: pt refusing meds, night prior he was disruptive on unit i.e. tearing up board games, intrusive towards peers 05/24: no med changes, refusing meds 05/25: refusing meds. court . wednesday was storing feces wrapped in paper towels on his shelving to save the universe. incontinent of urine in the milieu, slow to change/wash. 05/26: took zyprexa yesterday morning, refusing lithium. irritable. you are a ll lesbians trying to take over the world. 05/27: refusing meds. hearing tomorrow. to staff trying to administer meds: shove it up your ass! to female staff attempting to provide care: get out, bitch. you're a dog. get on your knees. [id number] declined mtg with TERA. 05/28: taking food from others' trays and throwing it away, masturbating in milieu, calling female staff bitch, ripped up checks sheet from off of [employer] clipboard, urinating on floor, pouring bottle of water onto floor. committed and ordered medication. 05/29 continue tx, back up IM per court order. 05/30/2022: Has only received olanzapine for the last 1-2 days, therefore unable to clearly evaluate efficacy. Given intensity of behaviors and interactions and psychosis, Will add olanzapine in the morning time i.e. 10 mg morning and 30 mg at bedtime with 10 mg IM backup morning and bedtime. Haldol as needed. 05/31/2022: No changes to current plan. Did have medication restraint today. 06/01: no change to plan. irritable, delusional. 06/02: no change in plan or presentation. 06/03: bizarre delusions. destroyed and threw away peer's art project. misogynistic comments. 06/04: irritable, verbally aggressive, refusing PO meds and getting IMs instead. 06/05: less verbally aggressive and irritable. took PO meds this morning rather than receive IMs. 06/07 no changes to tx plan 06/08: taking IMs all weekend. less aggressive and irritable, still disorganized and delusional. 06/09: PO meds this morning. defecated in shower and engaging in feces play yesterday. poor sleep. presentation essentially unchanged from yesterday. 06/10: stable presentation. loud, droning, disorganized, incoherent. taking m eds PO. continue current mgmt. 06/11: stable presentation. loud, droning, disorganized, incoherent. taking meds PO. continue current mgmt. 06/12: stable presentation. loud, droning, disorganized, incoherent. taking meds PO. continue current mgmt. 06/13: Pt refused PO meds on evening of 06/12, received IMs. no changes to tx. disorganized, psychotic. 06/14: adherent with PO meds, some inappropriate comments 06/15: off Q5 min checks, adherent with PO meds 06/16/2022 Check lithium level patient irritable dysphoric easily agitated question med compliance question whether patient is responding to olanzapine Patient educated on: diagnosis and medication risk/benefits Informed Consent: does not understand Reason for contiued inpatient stay Substantial Risk for: harm to self and harm to others Time Spent With Patient Time: Total time managing care of this patient today ____ minutes.
[2022-06-17 07:59] LABS: Lithium 0.54 mmol/L (0.60-1.20)
[2022-06-17 08:00] VITALS: BP 129/77; PULSE 85; RESP 16; TEMP 36.6; O2SAT 95
[2022-06-17] MEDS: OLANZapine ODT 10 MG TAB.RAPDIS 20 MG TRANSLINGU ×2 (08:22→21:33)
[2022-06-17] MEDS: Lithium Carbonate ER 300 MG TABLET.ER 600 MG PO ×2 (08:22→21:34)
--- NOTE | 2022-06-17 15:23 | P.PNPSI_ITS ---
Subjective Subjective Date of Service: 06/17/22 Reason For Visit: AH, delusional Interim History: seen as he was resting in his bed in his room. awake, responsive. states he is sleeping little. focused on his diet, redirected to discuss with dietary staff. does say he is not moving his bowels adequately, upon solicitation does ask for metamucil. per staff, playing cards and doing word searches in the milieu. taking meds PO. irritable, calling staff bastards, bitches, and daddy-fuckers. refusing to discuss his behavior with staff. presented himself in the skel[place] wearing only a blanket. Mental Status Exam Mental Status Exam Narrative: up and about the unit, appears adequately groomed. cooperative. no PMA/PMR. thoughts bizarre delusional and tangential, speech droning and loud. affect constricted, hypo-intense, labile. mood unknown. no SI/HI/AVH expressed. Diagnostics Vital Signs (24Hr): Vital Signs - 24 hr 06/17/22 08:00 Temperature 97.8 F Pulse Rate 85 Respiratory Rate 16 Blood Pressure 129/77 Pulse Oximetry 95 Oxygen Delivery Method Room Air BMI result Body Mass Index 24.0 Labs Results: 05/07/22 13:16 05/07/22 13:16 Labs: Laboratory Results - last 48 hr 06/17/22 07:27 Hughes 0.54 L Medications Medications Current Medications Acetaminophen (Acetaminophen 325 Mg Tablet) 650 mg PO Q6H PRN PRN Reason: Headache/Pain Mild Scale (1-3) Al Hydroxide/Mg Hydroxide (Magnesium Hydrox/Alum Hydrox 30 Ml Oral.Susp) 30 ml PO Q6H PRN PRN Reason: Heartburn/Nausea Haloperidol (Haloperidol 5 Mg Tablet) 5 mg PO QID PRN PRN Reason: psychosis, agitati Hughes Carbonate (Hughes Carbonate Er 300 Mg Tablet.Er) 600 mg PO BID [facility] Last Admin: 06/17/22 08:22 Dose: 600 mg Lorazepam (Lorazepam 2 Mg/Ml Vial) 2 mg IM BID PRN PRN Reason: Refusal of PO meds per [place] Last Admin: 06/12/22 22:55 Dose: 2 mg Magnesium Hydroxide (Milk Of Magnesia 30 Ml Oral.Susp) 30 ml PO DAILY PRN PRN Reason: Constipation Olanzapine (Olanzapine 10 Mg Vial) 10 mg IM BID PRN PRN Reason: refusal of PO zyprexa, per debra Last Admin: 06/12/22 22:55 Dose: 10 mg Olanzapine (Olanzapine Odt 10 Mg Tab.Rapdis) 20 mg TRANSLINGU BEDTIME ANJUM Last Admin: 06/16/22 20:50 Dose: 20 mg Olanzapine (Olanzapine Odt 10 Mg Tab.Rapdis) 20 mg TRANSLINGU DAILY ANJUM Last Admin: 06/17/22 08:22 Dose: 20 mg Trazodone HCl (Trazodone Hcl 50 Mg Tablet) 50 mg PO BEDTIME PRN PRN Reason: Insomnia Last Admin: 05/27/22 20:11 Dose: 50 mg Allergies Allergies Allergy/AdvReac Type Severity Reaction Status Date / Time bupropion [From Wellbutrin] Allergy Mild CAUSES Unverified 03/07/20 15:04 SWOLLEN HEAD tetracycline [Tetracycline] Allergy Mild UNKNOWN Unverified 03/07/20 15:04 trifluoperazine Allergy Mild UNKNOWN Unverified 03/07/20 15:04 [From Stelazine] clozapine [From Clozaril] AdvReac Mild SEIZURES,NE Unverified 03/07/20 15:04 UTROPENIA Assessment & Plan Assessment & Plan (1) Schizoaffective disorder, bipolar type: Status: Acute Code(s): F25.0 - Schizoaffective disorder, bipolar type Plan Eriberto is a 56 y.o. male with a past medical history of schizoaffective disorder, bipolar type. He presented to [facility] [place] [place] [facility] on 05/07/22 due to grandiose, paranoid delusional thought content, command AH. Per pt?s gf, he had been doing well until 05/02/22, however began responding to internal stimuli and on 05/06/22 he emptied his medications down the garbage disposal. Hx of IPLOC on section 8 at [facility] [place] [place] M3 in September- November 2021. Stabilized on lithium and olanzapine. Plan: Pt signed a CV, however does not appear to understand the conditional voluntary form and felt forced into doing this, states he is actually involuntary for the admission, will reject the CV. Will continue lithium 600 mg BID and olanzapine 30 mg HS, however pt says he intends to refuse. Li level 0.53 on admission. 05/08: Continue to offer meds, pt is intrusive, bizarre, makes vague statements about harming himself or others if forced to take meds, on 5 min checks 05/09: Refused to meet, declining medication 05/10: Refuses meds, not engaging in tx 05/11: Refuses meds, not engaging in tx. Pt is now a section VII. Will change olanzapine to ODT to promote adherence. 05/13: took meds last night. irritable, labile. reporting AH. 05/14 continue tx. 05/15: not consistently taking medication. hypersexual, bizarre. threatened to stab staff with scissors (which he had in his hand) and was not cooperative in returning razor to staff after shaving. 05/16 not taking meds, sect 7 continues offering meds. 05/17 continue tx. not taking meds ,pending court. 05/18: refusing meds. exposing his genitalia in the [place]el[place], licking the floor, throwing urine-soaked playing cards at staff. 05/19: refusing meds. ripped crowns off teeth and threw them away; smearing food on self and door; leaving urine footprints in the skel[place], smelling and dripping of the stuff. given medication restraint of zyprexa 10 and benadryl 50 IM after throwing hot soup in the milieu with peers in the area. 05/20: no change in presentation. refusing medications, denies he has mental illness. 05/21: sedated from having taken zyprexa 30 PO mg this morning. pushed staff in order to access kitchen last night, got zyprexa and benadryl IM after. 05/22: periods of agitation. defecated in shower. pacing, trying exits. continue current mgmt. 05/23: pt refusing meds, night prior he was disruptive on unit i.e. tearing up board games, intrusive towards peers 05/24: no med changes, refusing meds 05/25: refusing meds. court . wednesday was storing feces wrapped in paper towels on his shelving to save the universe. incontinent of urine in the milieu, slow to change/wash. 05/26: took zyprexa yesterday morning, refusing lithium. irritable. you are all lesbians trying to take over the world. 05/27: refusing meds. hearing tomorrow. to staff trying to administer meds: shove it up your ass! to female staff attempting to provide care: get out, bitch. you're a dog. get on your knees. [id number] declined mtg with TERA. 05/28: taking food from others' trays and throwing it away, masturbating in [facility], calling female staff bitch, ripped up checks sheet from off of [employer] clipboard, urinating on floor, pouring bottle of water onto floor. committed and ordered medication. 05/29 continue tx, back up IM per court order. 05/30/2022: Has only received olanzapine for the last 1-2 days, therefore un able to clearly evaluate efficacy. Given intensity of behaviors and interactions and psychosis, Will add olanzapine in the morning time i.e. 10 mg morning and 30 mg at bedtime with 10 mg IM backup morning and bedtime. Haldol as needed. 05/31/2022: No changes to current plan. Did have medication restraint today. 06/01: no change to plan. irritable, delusional. 06/02: no change in plan or presentation. 06/03: bizarre delusions. destroyed and threw away peer's art project. misogynistic comments. 06/04: irritable, verbally aggressive, refusing PO meds and getting IMs instead. 06/05: less verbally aggressive and irritable. took PO meds this morning rather than receive IMs. 06/07 no changes to tx plan 06/08: taking IMs all weekend. less aggressive and irritable, still disorganized and delusional. 06/09: PO meds this morning. defecated in shower and engaging in feces play yesterday. poor sleep. presentation essentially unchanged from yesterday. 06/10: stable presentation. loud, droning, disorganized, incoherent. taking meds PO. continue current mgmt. 06/11: stable presentation. loud, droning, disorganized, incoherent. taking meds PO. continue current mgmt. 06/12: stable presentation. loud, droning, disorganized, incoherent. taking meds PO. continue current mgmt. 06/13: Pt refused PO meds on evening of 06/12, received IMs. no changes to tx. disorganized, psychotic. 06/14: adherent with PO meds, some inappropriate comments 06/15: off Q5 min checks, adherent with PO meds 06/16: Check lithium level patient irritable dysphoric easily agitated question med compliance question whether patient is responding to olanzapine. 06/17: no change in presentation. Reason for contiued inpatient stay Substantial Risk for: harm to self, harm to others, inability to function and rapid decompensation Time Spent With Patient Time: Total time managing care of this patient today __20__ minutes.
[2022-06-17 20:30] VITALS: BP 128/74; PULSE 76; RESP 16; TEMP 36.6; O2SAT 99
[2022-06-18 07:00] VITALS: BMI 23.8
[2022-06-18] MEDS: Lithium Carbonate ER 300 MG TABLET.ER 600 MG PO (09:07)
[2022-06-18] MEDS: OLANZapine ODT 10 MG TAB.RAPDIS 20 MG TRANSLINGU (09:07)
--- NOTE | 2022-06-18 21:12 | HO.PSYCHPN ---
Subjective Subjective Date of Service: 06/18/22 Reason For Visit: AH, delusional Interim History: no change in presentation. per staff, refused 1:1 check-in. some odd behaviors. mostly calm. had a visit from GF and father. demanding snacks, rude in response to limit-setting. not attending groups. denies anxiety/depression. lithium level 0.54. Mental Status Exam Mental Status Exam Narrative: up and about the unit, appears adequately groomed. cooperative. no PMA/PMR. thoughts bizarre delusional and tangential, speech droning and loud. affect constricted, hypo-intense, min-labile. mood unknown. no SI/HI/AVH expressed. Diagnostics Vital Signs (24Hr): BMI result Body Mass Index 23.8 Labs Results: 05/07/22 13:16 05/07/22 13:16 Labs: Laboratory Results - last 48 hr 06/17/22 07:27 Mckinney 0.54 L Medications Medications Current Medications Acetaminophen (Acetaminophen 325 Mg Tablet) 650 mg PO Q6H PRN PRN Reason: Headache/Pain Mild Scale (1-3) Al Hydroxide/Mg Hydroxide (Magnesium Hydrox/Alum Hydrox 30 Ml Oral.Susp) 30 ml PO Q6H PRN PRN Reason: Heartburn/Nausea Haloperidol (Haloperidol 5 Mg Tablet) 5 mg PO QID PRN PRN Reason: psychosis, agitati Mckinney Carbonate (Mckinney Carbonate Er 300 Mg Tablet.Er) 600 mg PO BID [facility] [place] Last Admin: 06/18/22 09:07 Dose: 600 mg Magnesium Hydroxide (Milk Of Magnesia 30 Ml Oral.Susp) 30 ml PO DAILY PRN PRN Reason: Constipation Olanzapine (Olanzapine 10 Mg Vial) 10 mg IM BID PRN PRN Reason: refusal of PO zyprexa, per derba Last Admin: 06/12/22 22:55 Dose: 10 mg Olanzapine (Olanzapine Odt 10 Mg Tab.Rapdis) 20 mg TRANSLINGU BEDTIME [facility] [place] Last Admin: 06/17/22 21:33 Dose: 20 mg Olanzapine (Olanzapine Odt 10 Mg Tab.Rapdis) 20 mg TRANSLINGU DAILY [facility] [place] Last Admin: 06/18/22 09:07 Dose: 20 mg Psyllium Hydrophilic Mucilloid (Psyllium Seed 3.4 Gm Powd.Pack) 3.4 gm PO BID [facility] [place] Last Admin: 06/18/22 09:07 Dose: 3.4 gm Trazodone HCl (Trazodone Hcl 50 Mg Tablet) 50 mg PO BEDTIME PRN PRN Reason: Insomnia Last Admin: 05/27/22 20:11 Dose: 50 mg Allergies Allergies Allergy/AdvReac Type Severity Reaction Status Date / Time bupropion [From Wellbutrin] Allergy Mild CAUSES Unverified 03/07/20 15:04 SWOLLEN HEAD tetracycline [Tetracycline] Allergy Mild UNKNOWN Unverified 03/07/20 15:04 trifluoperazine Allergy Mild UNKNOWN Unverified 03/07/20 15:04 [From Stelazine] clozapine [From Clozaril] AdvReac Mild SEIZURES,NE Unverified 03/07/20 15:04 UTROPENIA Assessment & Plan Assessment & Plan (1) Schizoaffective disorder, bipolar type: Status: Acute Code(s): F25.0 - Schizoaffective disorder, bipolar type Plan Eriberto is a 56 y.o. male with a past medical history of schizoaffective disorder, bipolar type. He [place] [facility] [place] due to grandiose, paranoid delusional thought content, command AH. Per pt?s gf, he had been doing well until 05/02/22, however began responding to internal stimuli and on 05/06/22 he emptied his medications down the garbage disposal. Hx of IPLOC on section 8 [place] [facility] November [place]. Stabilized on lithium and olanzapine. Plan: Pt signed a CV, however does not appear to understand the conditional voluntary form and felt forced into doing this, states he is actually involuntary for the admission, will reject the CV. Will continue lithium 600 mg BID and olanzapine 30 mg HS, however pt says he intends to refuse. Li level 0.53 on admission. 05/08: Continue to offer meds, pt is intrusive, bizarre, makes vague statements about harming himself or others if forced to take meds, on 5 min checks 05/09: Refused to meet, declining medication 05/10: Refuses meds, not engaging in tx 05/11: Refuses meds, not engaging in tx. Pt is now a section VII. Will change olanzapine to ODT to promote adherence. 05/13: took meds last night. irritable, labile. reporting AH. 05/14 continue tx. 05/15: not consistently taking medication. hypersexual, bizarre. threatened to stab staff with scissors (which he had in his hand) and was not cooperative in returning razor to staff after shaving. 05/16 not taking meds, sect 7 continues offering meds. 05/17 continue tx. not taking meds ,pending court. 05/18: refusing meds. exposing his genitalia in the [place]el[place], licking the floor, throwing urine-soaked playing cards at staff. 05/19: refusing meds. ripped crowns off teeth and threw them away; smearing food on self and door; leaving urine footprints in the [place], smelling and dripping of the stuff. given medication restraint of zyprexa 10 and benadryl 50 IM after throwing hot soup in the milieu with peers in the area. 05/20: no change in presentation. refusing medications, denies he has mental illness. 05/21: sedated from having taken zyprexa 30 PO mg this morning. pushed staff in order to access kitchen last night, got zyprexa and benadryl IM after. 05/22: periods of agitation. defecated in shower. pacing, trying exits. continue current mgmt. 05/23: pt refusing meds, night prior he was disruptive on unit i.e. tearing up board games, intrusive towards peers 05/24: no med changes, refusing meds 05/25: refusing meds. court . wednesday was storing feces wrapped in paper towels on his shelving to save the universe. incontinent of urine in the milieu, slow to change/wash. 05/26: took zyprexa yesterday morning, refusing lithium. irritable. you are all lesbians trying to take over the world. 05/27: refusing meds. hearing tomorrow. to staff trying to administer meds: shove it up your ass! to female staff attempting to provide care: get out, bitch. you're a dog. get on your knees. [email or web address] declined mtg with TERA. 05/28: taking food from others' trays and throwing it away, masturbating in milieu, calling female staff bitch, ripped up checks sheet from off of [employer] clipboard, urinating on floor, pouring bottle of water onto floor. committed and ordered medication. 05/29 continue tx, back up IM per court order. 05/30/2022: Has only received olanzapine for the last 1-2 days, therefore unable to clearly evaluate efficacy. Given intensity of behaviors and interactions and psychosis, Will add olanzapine in the morning time i.e. 10 mg morning and 30 mg at bedtime with 10 mg IM backup morning and bedtime. Haldol as needed. 05/31/2022: No changes to current plan. Did have medication restraint today. 06/01: no change to plan. irritable, delusional. 06/02: no change in plan or presentation. 06/03: bizarre delusions. destroyed and threw away peer's art project. misogynistic comments. 06/04: irritable, verbally aggressive, refusing PO meds and getting IMs instead. 06/05: less verbally aggressive and irritable. took PO meds this morning rather than receive IMs. 06/07 no changes to tx plan 06/08: taking IMs all weekend. less aggressive and irritable, still disorganized and delusional. 06/09: PO meds this morning. defecated in shower and engaging in feces play yesterday. poor sleep. presentation essentially unchanged from yesterday. 06/10: stable presentation. loud, droning, disorganized, incoherent. taking meds PO. continue current mgmt. 06/11: stable presentation. loud, droning, disorganized, incoherent. taking meds PO. continue current mgmt. 06/12: stable presentation. loud, droning, disorganized, incoherent. taking meds PO. continue current mgmt. 06/13: Pt refused PO meds on evening of 06/12, received IMs. no changes to tx. disorganized, psychotic. 06/14: adherent with PO meds, some inappropriate comments 06/15: off Q5 min checks, adherent with PO meds 06/16: Check lithium level patient irritable dysphoric easily agitated question med compliance question whether patient is responding to olanzapine. 06/17: no change in presentation. 06/18: no change in presentation. lithium 0.54. Reason for contiued inpatient stay Substantial Risk for: harm to self, harm to others, inability to function and med/psych decompensation Time Spent With Patient Time: Total time managing care of this patient today _20___ minutes.
[2022-06-19] MEDS: Lithium Carbonate ER 300 MG TABLET.ER 600 MG PO ×3 (00:53→21:47)
[2022-06-19] MEDS: OLANZapine ODT 10 MG TAB.RAPDIS 20 MG TRANSLINGU ×3 (00:53→21:47)
--- NOTE | 2022-06-19 05:28 | PC.NURSE ---
late entry for 06/18/22: Patient requested to sign a 3 day. Educated on his commitment status- patient stated I don't care if it isn't valid. I have the right to sign a 3 day! Reviewed w/ SW- patient reeducated, but continued to want to sign a 3 day. Patient given a 3 day to complete as requested.
[2022-06-19 07:36] VITALS: BP 131/74; PULSE 84; RESP 18; TEMP 36.8; O2SAT 97
--- NOTE | 2022-06-19 12:56 | HO.PSYCHPN ---
Subjective Subjective Date of Service: 06/19/22 Reason For Visit: AH, delusional Interim History: seated in milieu with deck of cards in front of him. calm, cooperative, terse. not hostile in brief interaction. per staff, taking meds more easily now. brighter, spending more time in milieu. less labile, less aggressive. overheard to have told peer he hears voices very loudly so that is why he speaks so loudly and to forgive him for it. Mental Status Exam Mental Status Exam Narrative: up and about the unit, appears adequately groomed. cooperative. no PMA/PMR. thoughts linear in very brief interaction, speech droning and loud. affect constricted, hypo-intense, non-labile. mood unknown. no SI/HI/AVH expressed. Diagnostics Vital Signs (24Hr): Vital Signs - 24 hr 06/19/22 07:36 Temperature 98.2 F Pulse Rate 84 Respiratory Rate 18 Blood Pressure 131/74 Pulse Oximetry 97 Oxygen Delivery Method Room Air BMI result Body Mass Index 23.8 Labs Results: 05/07/22 13:16 05/07/22 13:16 Medications Medications Current Medications Acetaminophen (Acetaminophen 325 Mg Tablet) 650 mg PO Q6H PRN PRN Reason: Headache/Pain Mild Scale (1-3) Al Hydroxide/Mg Hydroxide (Magnesium Hydrox/Alum Hydrox 30 Ml Oral.Susp) 30 ml PO Q6H PRN PRN Reason: Heartburn/Nausea Haloperidol (Haloperidol 5 Mg Tablet) 5 mg PO QID PRN PRN Reason: psychosis, agitati [place] Carbonate ([place] Carbonate Er 300 Mg Tablet.Er) 600 mg PO BID [facility] Last Admin: 06/19/22 07:16 Dose: 600 mg Magnesium Hydroxide (Milk Of Magnesia 30 Ml Oral.Susp) 30 ml PO DAILY PRN PRN Reason: Constipation Olanzapine (Olanzapine 10 Mg Vial) 10 mg IM BID PRN PRN Reason: refusal of PO zyprexa, per debra Last Admin: 06/12/22 22:55 Dose: 10 mg Olanzapine (Olanzapine Odt 10 Mg Tab.Rapdis) 20 mg TRANSLINGU BEDTIME [facility] Last Admin: 06/19/22 00:53 Dose: 20 mg Olanzapine (Olanzapine Odt 10 Mg Tab.Rapdis) 20 mg TRANSLINGU DAILY [facility] Last Admin: 06/19/22 07:16 Dose: 20 mg Psyllium Hydrophilic Mucilloid (Psyllium Seed 3.4 Gm Powd.Pack) 3.4 gm PO BID [facility] Last Admin: 06/19/22 07:17 Dose: 3.4 gm Trazodone HCl (Trazodone Hcl 50 Mg Tablet) 50 mg PO BEDTIME PRN PRN Reason: Insomnia Last Admin: 05/27/22 20:11 Dose: 50 mg Allergies Allergies Allergy/AdvReac Type Severity Reaction Status Date / Time bupropion [From Wellbutrin] Allergy Mild CAUSES Unverified 03/07/20 15:04 SWOLLEN HEAD tetracycline [Tetracycline] Allergy Mild UNKNOWN Unverified 03/07/20 15:04 trifluoperazine Allergy Mild UNKNOWN Unverified 03/07/20 15:04 [From Stelazine] clozapine [From Clozaril] AdvReac Mild SEIZURES,NE Unverified 03/07/20 15:04 UTROPENIA Assessment & Plan Assessment & Plan (1) Schizoaffective disorder, bipolar type: Status: Acute Code(s): F25.0 - Schizoaffective disorder, bipolar type Plan Eriberto is a 56 y.o. male with a past medical history of schizoaffective disorder, bipolar type. He presented to [facility] on 05/07/22 due to grandiose, paranoid delusional thought content, command AH. Per pt?s gf, he had been doing well until 05/02/22, however began responding to internal stimuli and on 05/06/22 he emptied his medications down the garbage disposal. Hx of IPLOC on section 8 at [facility] in September- November 2021. Stabilized on lithium and olanzapine. Plan: Pt signed a CV, however does not appear to understand the conditional voluntary form and felt forced into doing this, states he is actually involuntary for the admission, will reject the CV. Will continue lithium 600 mg BID and olanzapine 30 mg HS, however pt says he intends to refuse. Li level 0.53 on admission. 05/08: Continue to offer meds, pt is intrusive, bizarre, makes vague statements about harming himself or others if forced to take meds, on 5 min checks 05/09: Refused to meet, declining medication 05/10: Refuses meds, not engaging in tx 05/11: Refuses meds, not engaging in tx. Pt is now a section VII. Will change olanzapine to ODT to promote adherence. 05/13: took meds last night. irritable, labile. reporting AH. 05/14 continue tx. 05/15: not consistently taking medication. hypersexual, bizarre. threatened to stab staff with scissors (which he had in his hand) and was not cooperative in returning razor to staff after shaving. 05/16 not taking meds, sect 7 continues offering meds. 05/17 continue tx. not taking meds ,pending court. 05/18: refusing meds. exposing his genitalia in the skelton, licking the floor, throwing urine-soaked playing cards at staff. 05/19: refusing meds. ripped crowns off teeth and threw them away; smearing food on self and door; leaving urine footprints in the skelton, smelling and dripping of the stuff. given medication restraint of zyprexa 10 and benadryl 50 IM after throwing hot soup in the milieu with peers in the area. 05/20: no change in presentation. refusing medications, denies he has mental illness. 05/21: sedated from having taken zyprexa 30 PO mg this morning. pushed staff in order to access kitchen last night, got zyprexa and benadryl IM after. 05/22: periods of agitation. defecated in shower. pacing, trying exits. continue current mgmt. 05/23: pt refusing meds, night prior he was disruptive on unit i.e. tearing up board games, intrusive towards peers 05/24: no med changes, refusing meds 05/25: refusing meds. court . wednesday was storing feces wrapped in paper towels on his shelving to save the universe. incontinent of urine in the milieu, slow to change/wash. 05/26: took zyprexa yesterday morning, refusing lithium. irritable. you are all lesbians trying to take over the world. 05/27: refusing meds. hearing tomorrow. to staff trying to administer meds: shove it up your ass! to female staff attempting to provide care: get out, bitch. you're a dog. get on your knees. [id number] declined mtg with TERA. 05/28: taking food from others' trays and throwing it away, masturbating in milieu, calling female staff bitch, ripped up checks sheet from off of [employer]'s clipboard, urinating on floor, pouring bottle of water onto floor. committed and ordered medication. 05/29 continue tx, back up IM per court order. 05/30/2022: Has only received olanzapine for the last 1-2 days, therefore unable to clearly evaluate efficacy. Given intensity of behaviors and interactions and psychosis, Will add olanzapine in the morning time i.e. 10 mg morning and 30 mg at bedtime with 10 mg IM backup morning and bedtime. Haldol as needed. 05/31/2022: No changes to current plan. Did have medication restraint today. 06/01: no change to plan. irritable, delusional. 06/02: no change in plan or presentation. 06/03: bizarre delusions. destroyed and threw away peer's art project. misogynistic comments. 06/04: irritable, verbally aggressive, refusing PO meds and getting IMs instead. 06/05: less verbally aggressive and irritable. took PO meds this morning rather than receive IMs. 06/07 no changes to tx plan 06/08: taking IMs all weekend. less aggressive and irritable, still disorganized and delusional. 06/09: PO meds this morning. defecated in shower and engaging in feces play yesterday. poor sleep. presentation essentially unchanged from yesterday. 06/10: stable presentation. loud, droning, disorganized, incoherent. taking meds PO. continue current mgmt. 06/11: stable presentation. loud, droning, disorganized, incoherent. taking meds PO. continue current mgmt. 06/12: stable presentation. loud, droning, disorganized, incoherent. taking meds PO. continue current mgmt. 06/13: Pt refused PO meds on evening of 06/12, received IMs. no changes to tx. disorganized, psychotic. 06/14: adherent with PO meds, some inappropriate comments 06/15: off Q5 min checks, adherent with PO meds 06/16: Check lithium level patient irritable dysphoric easily agitated question med compliance question whether patient is responding to olanzapine. 06/17: no change in presentation. 06/18: no change in presentation. lithium 0.54. 06/19: continue current mgmt. per staff, taking meds with less resistance, brighter, less labile, less aggressive. informed peer he hears very loud voices and that is why he speaks so loudly and to pardon him. Reason for contiued inpatient stay Substantial Risk for: harm to self, harm to others, inability to function and rapid decompensation Time Spent With Patient Time: Total time managing care of this patient today __20__ minutes.
[2022-06-19 21:30] VITALS: BP 125/67; PULSE 87; TEMP 36.7; O2SAT 95
[2022-06-20] MEDS: OLANZapine ODT 10 MG TAB.RAPDIS 20 MG TRANSLINGU ×2 (08:31→22:49)
[2022-06-20] MEDS: Lithium Carbonate ER 300 MG TABLET.ER 600 MG PO ×2 (08:31→22:49)
[2022-06-20 09:41] VITALS: BP 109/60; PULSE 78; TEMP 36.7; O2SAT 96
--- NOTE | 2022-06-20 13:05 | P.PNPSI_ITS ---
Subjective Subjective Date of Service: 06/20/22 Reason For Visit: AH, delusional Interim History: seated in milieu coloring. Terse. Short answers. Irritable edge. Taking medications consistently. Less irritable than prior per report. Denies SI. Denies hallucinations when asked. Review of Systems Review of Systems Yes Unobtainable due to mental status and Other ( ) Reports Abnormal speech present Mental Status Exam Mental Status Exam Narrative: up and about the unit, appears adequately groomed. cooperative. no PMA/PMR. thoughts linear in very brief interaction, speech droning and loud. affect constricted, hypo-intense, non-labile. mood unknown. no SI/HI/AVH expressed. Patient Appearance: Well Grooomed Patient Orientation: Person Level of Consciousness: Awake Patient Behavior: Hypersexual, Restless and Resistive to Care Mood Description: Expansive Affect Description: Expansive Ability to Follow Directions: Poor Speech Pattern: Clear Diagnostics Vital Signs (24Hr): Vital Signs - 24 hr 06/19/22 21:30 06/20/22 09:41 Temperature 98.1 F 98.1 F Pulse Rate 87 78 Blood Pressure 125/67 109/60 Pulse Oximetry 95 96 Oxygen Delivery Method Room Air Room Air BMI result Body Mass Index 23.8 Labs Results: 05/07/22 13:16 05/07/22 13:16 Medications Medications Current Medications Acetaminophen (Acetaminophen 325 Mg Tablet) 650 mg PO Q6H PRN PRN Reason: Headache/Pain Mild Scale (1-3) Al Hydroxide/Mg Hydroxide (Magnesium Hydrox/Alum Hydrox 30 Ml Oral.Susp) 30 ml PO Q6H PRN PRN Reason: Heartburn/Nausea Haloperidol (Haloperidol 5 Mg Tablet) 5 mg PO QID PRN PRN Reason: psychosis, agitati [place] Carbonate ([place] Carbonate Er 300 Mg Tablet.Er) 600 mg PO BID [facility] Last Admin: 06/20/22 08:31 Dose: 600 mg Magnesium Hydroxide (Milk Of Magnesia 30 Ml Oral.Susp) 30 ml PO DAILY PRN PRN Reason: Constipation Olanzapine (Olanzapine 10 Mg Vial) 10 mg IM BID PRN PRN Reason: refusal of PO zyprexa, per debra Last Admin: 06/12/22 22:55 Dose: 10 mg Olanzapine (Olanzapine Odt 10 Mg Tab.Rapdis) 20 mg TRANSLINGU BEDTIME [facility] Last Admin: 12/30/22 21:47 Dose: 20 mg Olanzapine (Olanzapine Odt 10 Mg Tab.Rapdis) 20 mg TRANSLINGU DAILY [facility] Last Admin: 06/20/22 08:31 Dose: 20 mg Psyllium Hydrophilic Mucilloid (Psyllium Seed 3.4 Gm Powd.Pack) 3.4 gm PO BID [facility] Last Admin: 06/20/22 08:31 Dose: 3.4 gm Trazodone HCl (Trazodone Hcl 50 Mg Tablet) 50 mg PO BEDTIME PRN PRN Reason: Insomnia Last Admin: 05/27/22 20:11 Dose: 50 mg Allergies Allergies Allergy/AdvReac Type Severity Reaction Status Date / Time bupropion [From Wellbutrin] Allergy Mild CAUSES Unverified 03/07/20 15:04 SWOLLEN HEAD tetracycline [Tetracycline] Allergy Mild UNKNOWN Unverified 03/07/20 15:04 trifluoperazine Allergy Mild UNKNOWN Unverified 03/07/20 15:04 [From Stelazine] clozapine [From Clozaril] AdvReac Mild SEIZURES,NE Unverified 03/07/20 15:04 UTROPENIA Assessment & Plan Assessment & Plan (1) Schizoaffective disorder, bipolar type: Status: Acute Code(s): F25.0 - Schizoaffective disorder, bipolar type Plan Eriberto is a 56 y.o. male with a past medical history of schizoaffective di sorder, bipolar type. He presented to [facility] ED on 05/07/22 due to grandiose, paranoid delusional thought content, command AH. Per pt?s gf, he had been doing well until 05/02/22, however began responding to internal stimuli and on 05/06/22 he emptied his medications down the garbage disposal. Hx of IPLOC on section 8 at [facility] M3 in September- November 2021. Stabilized on lithium and olanzapine. Plan: Pt signed a CV, however does not appear to understand the conditional voluntary form and felt forced into doing this, states he is actually involuntary for the admission, will reject the CV. Will continue lithium 600 mg BID and olanzapine 30 mg HS, however pt says he intends to refuse. Li level 0.53 on admission. 05/08: Continue to offer meds, pt is intrusive, bizarre, makes vague statements about harming himself or others if forced to take meds, on 5 min checks 05/09: Refused to meet, declining medication 05/10: Refuses meds, not engaging in tx 05/11: Refuses meds, not engaging in tx. Pt is now a section VII. Will change olanzapine to ODT to promote adherence. 05/13: took meds last night. irritable, labile. reporting AH. 05/14 continue tx. 05/15: not consistently taking medication. hypersexual, bizarre. threatened to stab staff with scissors (which he had in his hand) and was not cooperative in returning razor to staff after shaving. 05/16 not taking meds, sect 7 continues offering meds. 05/17 continue tx. not taking meds ,pending court. 05/18: refusing meds. exposing his genitalia in the [place]el[place], licking the floor, throwing urine-soaked playing cards at staff. 05/19: refusing meds. ripped crowns off teeth and threw them away; smearing food on self and door; leaving urine footprints in the skel[place], smelling and dripping of the stuff. given medication restraint of zyprexa 10 and benadryl 50 IM after throwing hot soup in the milieu with peers in the area. 05/20: no change in presentation. refusing medications, denies he has mental illness. 05/21: sedated from having taken zyprexa 30 PO mg this morning. pushed staff in order to access kitchen last night, got zyprexa and benadryl IM after. 05/22: periods of agitation. defecated in shower. pacing, trying exits. continue current mgmt. 05/23: pt refusing meds, night prior he was disruptive on unit i.e. tearing up board games, intrusive towards peers 05/24: no med changes, refusing meds 05/25: refusing meds. court . wednesday was storing feces wrapped in paper towels on his shelving to save the universe. incontinent of urine in the milieu, slow to change/wash. 05/26: took zyprexa yesterday morning, refusing lithium. irritable. you are all lesbians trying to take over the world. 05/27: refusing meds. hearing tomorrow. to staff trying to administer meds: shove it up your ass! to female staff attempting to provide care: get out, bitch. you're a dog. get on your knees. [email or web address] declined mtg with TERA. 05/28: taking food from others' trays and throwing it away, masturbating in milieu, calling female staff bitch, ripped up checks sheet from off of [employer]'s clipboard, urinating on floor, pouring bottle of water onto floor. committed and ordered medication. 05/29 continue tx, back up IM per court order. 05/30/2022: Has only received olanzapine for the last 1-2 days, therefore unable to clearly evaluate efficacy. Given intensity of behaviors and interactions and psychosis, Will add olanzapine in the morning time i.e. 10 mg morning and 30 mg at bedtime with 10 mg IM backup morning and bedtime. Haldol as needed. 05/31/2022: No changes to current plan. Did have medication restraint today. 06/01: no change to plan. irritable, delusional. 06/02: no change in plan or presentation. 06/03: bizarre delusions. destroyed and threw away peer's art project. misogynistic comments. 06/04: irritable, verbally aggressive, refusing PO meds and getting IMs instead. 06/05: less verbally aggressive and irritable. took PO meds this morning rather than receive IMs. 06/07 no changes to tx plan 06/08: taking IMs all weekend. less aggressive and irritable, still disorganized and delusional. 06/09: PO meds this morning. defecated in shower and engaging in feces play yesterday. poor sleep. presentation essentially unchanged from yesterday. 06/10: stable presentation. loud, droning, disorganized, incoherent. taking meds PO. continue current mgmt. 06/11: stable presentation. loud, droning, disorganized, incoherent. taking meds PO. continue current mgmt. 06/12: stable presentation. loud, droning, disorganized, incoherent. taking meds PO. continue current mgmt. 06/13: Pt refused PO meds on evening of 06/12, received IMs. no changes to tx. disorganized, psychotic. 06/14: adherent with PO meds, some inappropriate comments 06/15: off Q5 min checks, adherent with PO meds 06/16: Check lithium level patient irritable dysphoric easily agitated question med compliance question whether patient is responding to olanzapine. 06/17: no change in presentation. 06/18: no change in presentation. lithium 0.54. 06/19: continue current mgmt. per staff, taking meds with less resistance, b righter, less labile, less aggressive. informed peer he hears very loud voices and that is why he speaks so loudly and to pardon him. 06/20 Continue tx plan. Reason for contiued inpatient stay Substantial Risk for: inability to function and rapid decompensation Time Spent With Patient Time: Total time managing care of this patient today ____ minutes.
[2022-06-20 21:00] VITALS: BP 134/76; PULSE 68; TEMP 36.6; O2SAT 97
[2022-06-21] MEDS: Lithium Carbonate ER 300 MG TABLET.ER 600 MG PO ×2 (08:55→21:13)
[2022-06-21] MEDS: OLANZapine ODT 10 MG TAB.RAPDIS 20 MG TRANSLINGU ×2 (08:55→21:13)
[2022-06-21 09:30] VITALS: RESP 18
--- NOTE | 2022-06-21 13:55 | HO.PSYCHPN ---
Subjective Subjective Date of Service: 06/21/22 Reason For Visit: AH, delusional Interim History: seated in milieu coloring. Terse. Short answers. Irritable edge. I am getting by when asked how he feels. Watching the Football game in the tv room. Taking medications consistently. Less irritable than prior per report from nurses that know him longitudonally. Denies SI. Denies hallucinations when asked. Review of Systems Review of Systems Yes Unobtainable due to mental status and Other ( ) Reports Abnormal speech present Mental Status Exam Mental Status Exam Narrative: up and about the unit, appears adequately groomed. cooperative. no PMA/PMR. thoughts linear in very brief interaction, speech droning and loud. affect constricted, hypo-intense, non-labile. mood unknown. no SI/HI/AVH expressed. Patient Appearance: Well Grooomed Patient Orientation: Person Level of Consciousness: Awake Patient Behavior: Hypersexual, Restless and Resistive to Care Mood Description: Expansive Affect Description: Expansive Ability to Follow Directions: Poor Speech Pattern: Clear Diagnostics Vital Signs (24Hr): Vital Signs - 24 hr 06/20/22 21:00 06/21/22 09:30 Temperature 97.8 F Pulse Rate 68 Respiratory Rate 18 Blood Pressure 134/76 Pulse Oximetry 97 Oxygen Delivery Method Room Air BMI result Body Mass Index 23.8 Labs Results: 05/07/22 13:16 05/07/22 13:16 Medications Medications Current Medications Acetaminophen (Acetaminophen 325 Mg Tablet) 650 mg PO Q6H PRN PRN Reason: Headache/Pain Mild Scale (1-3) Al Hydroxide/Mg Hydroxide (Magnesium Hydrox/Alum Hydrox 30 Ml Oral.Susp) 30 ml PO Q6H PRN PRN Reason: Heartburn/Nausea Haloperidol (Haloperidol 5 Mg Tablet) 5 mg PO QID PRN PRN Reason: psychosis, agitati [place] Carbonate ([place] Carbonate Er 300 Mg Tablet.Er) 600 mg PO BID ANJUM Last Admin: 06/21/22 08:55 Dose: 600 mg Magnesium Hydroxide (Milk Of Magnesia 30 Ml Oral.Susp) 30 ml PO DAILY PRN PRN Reason: Constipation Olanzapine (Olanzapine 10 Mg Vial) 10 mg IM BID PRN PRN Reason: refusal of PO zyprexa, per debra Last Admin: 06/12/22 22:55 Dose: 10 mg Olanzapine (Olanzapine Odt 10 Mg Tab.Rapdis) 20 mg TRANSLINGU BEDTIME [facility] Last Admin: 06/20/22 22:49 Dose: 20 mg Olanzapine (Olanzapine Odt 10 Mg Tab.Rapdis) 20 mg TRANSLINGU DAILY [facility] Last Admin: 06/21/22 08:55 Dose: 20 mg Psyllium Hydrophilic Mucilloid (Psyllium Seed 3.4 Gm Powd.Pack) 3.4 gm PO BID [facility] Last Admin: 06/21/22 08:56 Dose: 3.4 gm Trazodone HCl (Trazodone Hcl 50 Mg Tablet) 50 mg PO BEDTIME PRN PRN Reason: Insomnia Last Admin: 05/27/22 20:11 Dose: 50 mg Allergies Allergies Allergy/AdvReac Type Severity Reaction Status Date / Time bupropion [From Wellbutrin] Allergy Mild CAUSES Unverified 03/07/20 15:04 SWOLLEN HEAD tetracycline [Tetracycline] Allergy Mild UNKNOWN Unverified 03/07/20 15:04 trifluoperazine Allergy Mild UNKNOWN Unverified 03/07/20 15:04 [From Stelazine] clozapine [From Clozaril] AdvReac Mild SEIZURES,NE Unverified 03/07/20 15:04 UTROPENIA Assessment & Plan Assessment & Plan (1) Schizoaffective disorder, bipolar type: Status: Acute Code(s): F25.0 - Schizoaffective disorder, bipolar type Plan Eriberto is a 56 y.o. male with a past medical history of schizoaffective disorder, bipolar type. He presented to [facility] on 05/07/22 due to grandiose, paranoid delusional thought content, command AH. Per pt?s gf, he had been doing well until 05/02/22, however began responding to internal stimuli and on 05/06/22 he emptied his medications down the garbage disposal. Hx of IPLOC on section 8 at [facility] in September- November 2021. Stabilized on lithium and olanzapine. Plan: Pt signed a CV, however does not appear to understand the conditional voluntary form and felt forced into doing this, states he is actually involuntary for the admission, will reject the CV. Will continue lithium 600 mg BID and olanzapine 30 mg HS, however pt says he intends to refuse. Li level 0.53 on admission. 05/08: Continue to offer meds, pt is intrusive, bizarre, makes vague statements about harming himself or others if forced to take meds, on 5 min checks 05/09: Refused to meet, declining medication 05/10: Refuses meds, not engaging in tx 05/11: Refuses meds, not engaging in tx. Pt is now a section VII. Will change olanzapine to ODT to promote adherence. 05/13: took meds last night. irritable, labile. reporting AH. 05/14 continue tx. 05/15: not consistently taking medication. hypersexual, bizarre. threatened to stab staff with scissors (which he had in his hand) and was not cooperative in returning razor to staff after shaving. 05/16 not taking meds, sect 7 continues offering meds. 05/17 continue tx. not taking meds ,pending court. 05/18: refusing meds. exposing his genitalia in the skelton, licking the floor, throwing urine-soaked playing cards at staff. 05/19: refusing meds. ripped crowns off teeth and threw them away; smearing food on self and door; leaving urine footprints in the skelton, smelling and dripping of the stuff. given medication restraint of zyprexa 10 and benadryl 50 IM after throwing hot soup in the milieu with peers in the area. 05/20: no change in presentation. refusing medications, denies he has mental illness. 05/21: sedated from having taken zyprexa 30 PO mg this morning. pushed staff in order to access kitchen last night, got zyprexa and benadryl IM after. 05/22: periods of agitation. defecated in shower. pacing, trying exits. continue current mgmt. 05/23: pt refusing meds, night prior he was disruptive on unit i.e. tearing up board games, intrusive towards peers 05/24: no med changes, refusing meds 05/25: refusing meds. court . wednesday was storing feces wrapped in paper towels on his shelving to save the universe. incontinent of urine in the milieu, slow to change/wash. 05/26: took zyprexa yesterday morning, refusing lithium. irritable. you are all lesbians trying to take over the world. 05/27: refusing meds. hearing tomorrow. to staff trying to administer meds: shove it up your ass! to female staff attempting to provide care: get out, bitch. you're a dog. get on your knees. [email or web address] declined mtg with TERA. 05/28: taking food from others' trays and throwing it away, masturbating in milieu, calling female staff bitch, ripped up checks sheet from off of [employer]'s clipboard, urinating on floor, pouring bottle of water onto floor. committed and ordered medication. 05/29 continue tx, back up IM per court order. 05/30/2022: Has only received olanzapine for the last 1-2 days, therefore unable to clearly evaluate efficacy. Given intensity of behaviors and interactions and psychosis, Will add olanzapine in the morning time i.e. 10 mg morning and 30 mg at bedtime with 10 mg IM backup morning and bedtime. Haldol as needed. 05/31/2022: No changes to current plan. Did have medication restraint today. 06/01: no change to plan. irritable, delusional. 06/02: no change in plan or presentation. 06/03: bizarre delusions. destroyed and threw away peer's art project. misogynistic comments. 06/04: irritable, verbally aggressive, refusing PO meds and getting IMs instead. 06/05: less verbally aggressive and irritable. took PO meds this morning rather than receive IMs. 06/07 no changes to tx plan 06/08: taking IMs all weekend. less aggressive and irritable, still disorganized and delusional. 06/09: PO meds this morning. defecated in shower and engaging in feces play yesterday. poor sleep. presentation essentially unchanged from yesterday. 06/10: stable presentation. loud, droning, disorganized, incoherent. taking meds PO. continue current mgmt. 06/11: stable presentation. loud, droning, disorganized, incoherent. taking meds PO. continue current mgmt. 06/12: stable presentation. loud, droning, disorganized, incoherent. taking meds PO. continue current mgmt. 06/13: Pt refused PO meds on evening of 06/12, received IMs. no changes to tx. disorganized, psychotic. 06/14: adherent with PO meds, some inappropriate comments 06/15: off Q5 min checks, adherent with PO meds 06/16: Check lithium level patient irritable dysphoric easily agitated question med compliance question whether patient is responding to olanzapine. 06/17: no change in presentation. 06/18: no change in presentation. lithium 0.54. 06/19: continue current mgmt. per staff, taking meds with less resistance, brighter, less labile, less aggressive. informed peer he hears very loud voices and that is why he speaks so loudly and to pardon him. 06/20 Continue tx plan. 06/21 Continue tx plan. Reason for contiued inpatient stay Substantial Risk for: inability to function and rapid decompensation Time Spent With Patient Time: Total time managing care of this patient today ____ minutes.
[2022-06-22] MEDS: OLANZapine ODT 10 MG TAB.RAPDIS 20 MG TRANSLINGU ×2 (08:08→21:38)
[2022-06-22] MEDS: Lithium Carbonate ER 300 MG TABLET.ER 600 MG PO ×2 (08:08→21:38)
[2022-06-22 08:15] VITALS: BP 130/67; PULSE 82; RESP 18; TEMP 36.9; O2SAT 96
--- NOTE | 2022-06-22 13:30 | HO.PSYCHPN ---
Subjective Subjective Date of Service: 06/22/22 Reason For Visit: AH, delusional Interim History: seen in [employer] coloring and playing cards. He didn't sleep until 3 AM. When asked, he says I am special, I was always special and didn't need sleep. 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 He is somewhat terse. He has an irritable edge. Taking medications consistently. Less irritable than prior per report from nurses that know him longitudonally. Denies SI. Denies hallucinations when asked directly. Review of Systems Review of Systems Yes Unobtainable due to mental status and Other ( ) Reports Abnormal speech present Mental Status Exam Mental Status Exam Narrative: up and about the unit, appears adequately groomed. cooperative. no PMA/PMR. thoughts linear in very brief interaction, speech droning and loud. affect constricted, hypo-intense, non-labile. mood unknown. no SI/HI/AVH expressed. Patient Appearance: Well Grooomed Patient Orientation: Person Level of Consciousness: Awake Patient Behavior: Hypersexual, Restless and Resistive to Care Mood Description: Expansive Affect Description: Expansive Ability to Follow Directions: Poor Speech Pattern: Clear Diagnostics Vital Signs (24Hr): Vital Signs - 24 hr 06/22/22 08:15 Temperature 98.4 F Pulse Rate 82 Respiratory Rate 18 Blood Pressure 130/67 Pulse Oximetry 96 Oxygen Delivery Method Room Air BMI result Body Mass Index 23.8 Labs Results: 05/07/22 13:16 05/07/22 13:16 Medications Medications Current Medications Acetaminophen (Acetaminophen 325 Mg Tablet) 650 mg PO Q6H PRN PRN Reason: Headache/Pain Mild Scale (1-3) Al Hydroxide/Mg Hydroxide (Magnesium Hydrox/Alum Hydrox 30 Ml Oral.Susp) 30 ml PO Q6H PRN PRN Reason: Heartburn/Nausea Haloperidol (Haloperidol 5 Mg Tablet) 5 mg PO QID PRN PRN Reason: psychosis, agitati [place] Carbonate ([place] Carbonate Er 300 Mg Tablet.Er) 600 mg PO BID [facility] Last Admin: 06/22/22 08:08 Dose: 600 mg Magnesium Hydroxide (Milk Of Magnesia 30 Ml Oral.Susp) 30 ml PO DAILY PRN PRN Reason: Constipation Olanzapine (Olanzapine 10 Mg Vial) 10 mg IM BID PRN PRN Reason: refusal of PO zyprexa per debra Last Admin: 06/12/22 22:55 Dose: 10 mg Olanzapine (Olanzapine Odt 10 Mg Tab.Rapdis) 20 mg TRANSLINGU BEDTIME [facility] Last Admin: 06/21/22 21:13 Dose: 20 mg Olanzapine (Olanzapine Odt 10 Mg Tab.Rapdis) 20 mg TRANSLINGU DAILY [facility] Last Admin: 06/22/22 08:08 Dose: 20 mg Psyllium Hydrophilic Mucilloid (Psyllium Seed 3.4 Gm Powd.Pack) 3.4 gm PO BID [facility] Last Admin: 06/22/22 08:09 Dose: 3.4 gm Trazodone HCl (Trazodone Hcl 50 Mg Tablet) 50 mg PO BEDTIME PRN PRN Reason: Insomnia Last Admin: 05/27/22 20:11 Dose: 50 mg Allergies Allergies Allergy/AdvReac Type Severity Reaction Status Date / Time bupropion [From Wellbutrin] Allergy Mild CAUSES Unverified 03/07/20 15:04 SWOLLEN HEAD tetracycline [Tetracycline] Allergy Mild UNKNOWN Unverified 03/07/20 15:04 trifluoperazine Allergy Mild UNKNOWN Unverified 03/07/20 15:04 [From Stelazine] clozapine [From Clozaril] AdvReac Mild SEIZURES,NE Unverified 03/07/20 15:04 UTROPENIA Assessment & Plan Assessment & Plan (1) Schizoaffective disorder, bipolar type: Status: Acute Code(s): F25.0 - Schizoaffective disorder, bipolar type Plan Eriberto is a 56 y.o. male with a past medical history of schizoaffective disorder, bipolar type. He presented [place] [facility] [place] 05[place]22 due to grandiose, paranoid delusional thought content, command AH. Per pt?s gf, he had been doing well until 05/02/22, however began responding to internal stimuli and on 05/06/22 he emptied his medications down the garbage disposal. Hx of IPLOC on section 8 at [facility] in September- November 2021. Stabilized on lithium and olanzapine. Plan: Pt signed a CV, however does not appear to understand the conditional voluntary form and felt forced into doing this, states he is actually involuntary for the admission, will reject the CV. Will continue lithium 600 mg BID and olanzapine 30 mg HS, however pt says he intends to refuse. Li level 0.53 on admission. 05/08: Continue to offer meds, pt is intrusive, bizarre, makes vague statements about harming himself or others if forced to take meds, on 5 min checks 05/09: Refused to meet, declining medication 05/10: Refuses meds, not engaging in tx 05/11: Refuses meds, not engaging in tx. Pt is now a section VII. Will change olanzapine to ODT to promote adherence. 05/13: took meds last night. irritable, labile. reporting AH. 05/14 continue tx. 05/15: not consistently taking medication. hypersexual, bizarre. threatened to stab staff with scissors (which he had in his hand) and was not cooperative in returning razor to staff after shaving. 05/16 not taking meds, sect 7 continues offering meds. 05/17 continue tx. not taking meds ,pending court. 05/18: refusing meds. exposing his genitalia in the skelton, licking the floor, throwing urine-soaked playing cards at staff. 05/19: refusing meds. ripped crowns off teeth and threw them away; smearing food on self and door; leaving urine footprints in the skelton, smelling and dripping of the stuff. given medication restraint of zyprexa 10 and benadryl 50 IM after throwing hot soup in the milieu with peers in the area. 05/20: no change in presentation. refusing medications, denies he has mental illness. 05/21: sedated from having taken zyprexa 30 PO mg this morning. pushed staff in order to access kitchen last night, got zyprexa and benadryl IM after. 05/22: periods of agitation. defecated in shower. pacing, trying exits. continue current mgmt. 05/23: pt refusing meds, night prior he was disruptive on unit i.e. tearing up board games, intrusive towards peers 05/24: no med changes, refusing meds 05/25: refusing meds. court . wednesday was storing feces wrapped in paper towels on his shelving to save the universe. incontinent of urine in the milieu, slow to change/wash. 05/26: took zyprexa yesterday morning, refusing lithium. irritable. you are all lesbians trying to take over the world. 05/27: refusing meds. hearing tomorrow. to staff trying to administer meds: shove it up your ass! to female staff attempting to provide care: get out, bitch. you're a dog. get on your knees. [email or web address] declined mtg with TERA. 05/28: taking food from others' trays and throwing it away, masturbating in milieu, calling female staff bitch, ripped up checks sheet from off of [employer] clipboard, urinating on floor, pouring bottle of water onto floor. committed and ordered medication. 05/29 continue tx, back up IM per court order. 05/30/2022: Has only received olanzapine for the last 1-2 days, therefore unable to clearly evaluate efficacy. Given intensity of behaviors and interactions and psychosis, Will add olanzapine in the morning time i.e. 10 mg morning and 30 mg at bedtime with 10 mg IM backup morning and bedtime. Haldol as needed. 05/31/2022: No changes to current plan. Did have medication restraint today. 06/01: no change to plan. irritable, delusional. 06/02: no change in plan or presentation. 06/03: bizarre delusions. destroyed and threw away peer's art project. misogynistic comments. 06/04: irritable, verbally aggressive, refusing PO meds and getting IMs instead. 06/05: less verbally aggressive and irritable. took PO meds this morning rather than receive IMs. 06/07 no changes to tx plan 06/08: taking IMs all weekend. less aggressive and irritable, still disorganized and delusional. 06/09: PO meds this morning. defecated in shower and engaging in feces play yesterday. poor sleep. presentation essentially unchanged from yesterday. 06/10: stable presentation. loud, droning, disorganized, incoherent. taking meds PO. continue current mgmt. 06/11: stable presentation. loud, droning, disorganized, incoherent. taking meds PO. continue current mgmt. 06/12: stable presentation. loud, droning, disorganized, incoherent. taking meds PO. continue current mgmt. 06/13: Pt refused PO meds on evening of 06/12, received IMs. no changes to tx. disorganized, psychotic. 06/14: adherent with PO meds, some inappropriate comments 06/15: off Q5 min checks, adherent with PO meds 06/16: Check lithium level patient irritable dysphoric easily agitated question med compliance question whether patient is responding to olanzapine. 06/17: no change in presentation. 06/18: no change in presentation. lithium 0.54. 06/19: continue current mgmt. per staff, taking meds with less resistance, brighter, less labile, less aggressive. informed peer he hears very loud voices and that is why he speaks so loudly and to pardon him. 06/20 Continue tx plan. 06/21 Continue tx plan. 06/22 Continue current tx plan. Reason for contiued inpatient stay Substantial Risk for: inability to function and rapid decompensation Time Spent With Patient Time: Total time managing care of this patient today ____ minutes.
[2022-06-23] MEDS: OLANZapine ODT 10 MG TAB.RAPDIS 20 MG TRANSLINGU ×2 (08:19→21:07)
[2022-06-23] MEDS: Lithium Carbonate ER 300 MG TABLET.ER 600 MG PO ×2 (08:19→21:07)
[2022-06-23 08:30] VITALS: BP 115/74; PULSE 89; RESP 18; TEMP 37.1; O2SAT 94
--- NOTE | 2022-06-23 15:41 | P.PNPSI_ITS ---
Subjective Subjective Date of Service: 06/23/22 Reason For Visit: AH, delusional Interim History: no change in presentation. terse, irritable, gruff. 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 per staff, not attending groups. eating well. +RIS. safe, withdrawn. eating, laughing to himself. slept 5 hours overnight. Mental Status Exam Mental Status Exam Narrative: up and about the unit, appears adequately groomed. cooperative. no PMA/PMR. thoughts linear in brief interaction, speech droning and loud. affect constricted, hypo-intense, non-labile. mood unknown. no SI/HI/AVH expressed. Diagnostics Vital Signs (24Hr): Vital Signs - 24 hr 06/23/22 08:30 Temperature 98.7 F Pulse Rate 89 Respiratory Rate 18 Blood Pressure 115/74 Pulse Oximetry 94 Oxygen Delivery Method Room Air BMI result Body Mass Index 23.8 Labs Results: 05/07/22 13:16 05/07/22 13:16 Medications Medications Current Medications Acetaminophen (Acetaminophen 325 Mg Tablet) 650 mg PO Q6H PRN PRN Reason: Headache/Pain Mild Scale (1-3) Al Hydroxide/Mg Hydroxide (Magnesium Hydrox/Alum Hydrox 30 Ml Oral.Susp) 30 ml PO Q6H PRN PRN Reason: Heartburn/Nausea Haloperidol (Haloperidol 5 Mg Tablet) 5 mg PO QID PRN PRN Reason: psychosis, agitati [place] Carbonate ([place] Carbonate Er 300 Mg Tablet.Er) 600 mg PO BID [facility] Last Admin: 06/23/22 08:19 Dose: 600 mg Magnesium Hydroxide (Milk Of Magnesia 30 Ml Oral.Susp) 30 ml PO DAILY PRN PRN Reason: Constipation Olanzapine (Olanzapine 10 Mg Vial) 10 mg IM BID PRN PRN Reason: refusal of PO zyprexa, per debra Last Admin: 06/12/22 22:55 Dose: 10 mg Olanzapine (Olanzapine Odt 10 Mg Tab.Rapdis) 20 mg TRANSLINGU BEDTIME [facility] Last Admin: 06/22/22 21:38 Dose: 20 mg Olanzapine (Olanzapine Odt 10 Mg Tab.Rapdis) 20 mg TRANSLINGU DAILY [facility] Last Admin: 06/23/22 08:19 Dose: 20 mg Psyllium Hydrophilic Mucilloid (Psyllium Seed 3.4 Gm Powd.Pack) 3.4 gm PO BID [facility] Last Admin: 06/23/22 09:14 Dose: 3.4 gm Trazodone HCl (Trazodone Hcl 50 Mg Tablet) 50 mg PO BEDTIME PRN PRN Reason: Insomnia Last Admin: 05/27/22 20:11 Dose: 50 mg Allergies Allergies Allergy/AdvReac Type Severity Reaction Status Date / Time bupropion [From Wellbutrin] Allergy Mild CAUSES Unverified 03/07/20 15:04 SWOLLEN HEAD tetracycline [Tetracycline] Allergy Mild UNKNOWN Unverified 03/07/20 15:04 trifluoperazine Allergy Mild UNKNOWN Unverified 03/07/20 15:04 [From Stelazine] clozapine [From Clozaril] AdvReac Mild SEIZURES,NE Unverified 03/07/20 15:04 UTROPENIA Assessment & Plan Assessment & Plan (1) Schizoaffective disorder, bipolar type: Status: Acute Code(s): F25.0 - Schizoaffective disorder, bipolar type Plan Eriberto is a 56 y.o. male with a past medical history of schizoaffective disorder, bipolar type. He presented [place] [facility] on [place]22 due to grandiose, paranoid delusional thought content, command AH. Per pt?s gf, he had been doing well until 05/02/22, however began responding to internal stimuli and on 05/06/22 he emptied his medications down the garbage disposal. Hx of IPLOC on section 8 at [facility] in September- November 2021. Stabilized on lithium and olanzapine. Plan: Pt signed a CV, however does not appear to understand the conditional voluntary form and felt forced into doing this, states he is actually involuntary for the admission, will reject the CV. Will continue lithium 600 mg BID and olanzapine 30 mg HS, however pt says he intends to refuse. Li level 0.53 on admission. 05/08: Continue to offer meds, pt is intrusive, bizarre, makes vague statements about harming himself or others if forced to take meds, on 5 min checks 05/09: Refused to meet, declining medication 05/10: Refuses meds, not engaging in tx 05/11: Refuses meds, not engaging in tx. Pt is now a section VII. Will change olanzapine to ODT to promote adherence. 05/13: took meds last night. irritable, labile. reporting AH. 05/14 continue tx. 05/15: not consistently taking medication. hypersexual, bizarre. threatened to stab staff with scissors (which he had in his hand) and was not cooperative in returning razor to staff after shaving. 05/16 not taking meds, sect 7 continues offering meds. 05/17 continue tx. not taking meds ,pending court. 05/18: refusing meds. exposing his genitalia in the skelton, licking the floor, throwing urine-soaked playing cards at staff. 05/19: refusing meds. ripped crowns off teeth and threw them away; smearing food on self and door; leaving urine footprints in the skelton, smelling and dripping of the stuff. given medication restraint of zyprexa 10 and benadryl 50 IM after throwing hot soup in the milieu with peers in the area. 05/20: no change in presentation. refusing medications, denies he has mental illness. 05/21: sedated from having taken zyprexa 30 PO mg this morning. pushed staff in order to access kitchen last night, got zyprexa and benadryl IM after. 05/22: periods of agitation. defecated in shower. pacing, trying exits. continue current mgmt. 05/23: pt refusing meds, night prior he was disruptive on unit i.e. tearing up board games, intrusive towards peers 05/24: no med changes, refusing meds 05/25: refusing meds. court . wednesday was storing feces wrapped in paper towels on his shelving to save the universe. incontinent of urine in the milieu, slow to change/wash. 05/26: took zyprexa yesterday morning, refusing lithium. irritable. you are all lesbians trying to take over the world. 05/27: refusing meds. hearing tomorrow. to staff trying to administer meds: shove it up your ass! to female staff attempting to provide care: get out, bitch. you're a dog. get on your knees. [email or web address] declined mtg with TERA. 05/28: taking food from others' trays and throwing it away, masturbating in milieu, calling female staff bitch, ripped up checks sheet from off of [employer]'s clipboard, urinating on floor, pouring bottle of water onto floor. committed and ordered medication. 05/29 continue tx, back up IM per court order. 05/30/2022: Has only received olanzapine for the last 1-2 days, therefore unable to clearly evaluate efficacy. Given intensity of behaviors and interactions and psychosis, Will add olanzapine in the morning time i.e. 10 mg morning and 30 mg at bedtime with 10 mg IM backup morning and bedtime. Haldol as needed. 05/31/2022: No changes to current plan. Did have medication restraint today. 06/01: no change to plan. irritable, delusional. 06/02: no change in plan or presentation. 06/03: bizarre delusions. destroyed and threw away peer's art project. misogynistic comments. 06/04: irritable, verbally aggressive, refusing PO meds and getting IMs instead. 06/05: less verbally aggressive and irritable. took PO meds this morning rather than receive IMs. 06/07 no changes to tx plan 06/08: taking IMs all weekend. less aggressive and irritable, still disorganized and delusional. 06/09: PO meds this morning. defecated in shower and engaging in feces play yesterday. poor sleep. presentation essentially unchanged from yesterday. 06/10: stable presentation. loud, droning, disorganized, incoherent. taking meds PO. continue current mgmt. 06/11: stable presentation. loud, droning, disorganized, incoherent. taking meds PO. continue current mgmt. 06/12: stable presentation. loud, droning, disorganized, incoherent. taking meds PO. continue current mgmt. 06/13: Pt refused PO meds on evening of 06/12, received IMs. no changes to tx. disorganized, psychotic. 06/14: adherent with PO meds, some inappropriate comments 06/15: off Q5 min checks, adherent with PO meds 06/16: Check lithium level patient irritable dysphoric easily agitated question med compliance question whether patient is responding to olanzapine. 06/17: no change in presentation. 06/18: no change in presentation. lithium 0.54. 06/19: continue current mgmt. per staff, taking meds with less resistance, brighter, less labile, less aggressive. informed peer he hears very loud voices and that is why he speaks so loudly and to pardon him. 06/20 Continue tx plan. 06/21 Continue tx plan. 06/22 Continue current tx plan. 06/23: no change in presentation. continue current mgmt. Reason for contiued inpatient stay Substantial Risk for: harm to self, harm to others, inability to function and rapid decompensation Time Spent With Patient Time: Total time managing care of this patient today __20__ minutes.
[2022-06-24 08:10] VITALS: BP 128/66; PULSE 82; RESP 20; TEMP 36.8; O2SAT 97
[2022-06-24] MEDS: OLANZapine ODT 10 MG TAB.RAPDIS 20 MG TRANSLINGU ×2 (09:23→21:06)
[2022-06-24] MEDS: Lithium Carbonate ER 300 MG TABLET.ER 600 MG PO ×2 (09:24→21:06)
--- NOTE | 2022-06-24 16:10 | HO.PSYCHPN ---
Subjective Subjective Date of Service: 06/24/22 Reason For Visit: AH, delusional Interim History: calm, cooperative. no change in presentation. per staff, pt notes hearing voices from afar. not attending groups. safe. pleasant, guarded, visible. eating well. slept about 6 hours overnight. Mental Status Exam Mental Status Exam Narrative: up and about the unit, appears adequately groomed. cooperative. no PMA/PMR. thoughts linear in brief interaction, speech droning and loud. affect constricted, hypo-intense, non-labile. mood unknown. no SI/HI/AVH expressed. Diagnostics Vital Signs (24Hr): Vital Signs - 24 hr 06/24/22 08:10 Temperature 98.3 F Pulse Rate 82 Respiratory Rate 20 Blood Pressure 128/66 Pulse Oximetry 97 Oxygen Delivery Method Room Air BMI result Body Mass Index 23.8 Labs Results: 05/07/22 13:16 05/07/22 13:16 Medications Medications Current Medications Acetaminophen (Acetaminophen 325 Mg Tablet) 650 mg PO Q6H PRN PRN Reason: Headache/Pain Mild Scale (1-3) Al Hydroxide/Mg Hydroxide (Magnesium Hydrox/Alum Hydrox 30 Ml Oral.Susp) 30 ml PO Q6H PRN PRN Reason: Heartburn/Nausea Haloperidol (Haloperidol 5 Mg Tablet) 5 mg PO QID PRN PRN Reason: psychosis, agitati [place] Carbonate ([place] Carbonate Er 300 Mg Tablet.Er) 600 mg PO BID [facility] Last Admin: 06/24/22 09:24 Dose: 600 mg Magnesium Hydroxide (Milk Of Magnesia 30 Ml Oral.Susp) 30 ml PO DAILY PRN PRN Reason: Constipation Olanzapine (Olanzapine 10 Mg Vial) 10 mg IM BID PRN PRN Reason: refusal of PO zyprexa, per debra Last Admin: 06/12/22 22:55 Dose: 10 mg Olanzapine (Olanzapine Odt 10 Mg Tab.Rapdis) 20 mg TRANSLINGU BEDTIME [facility] Last Admin: 06/23/22 21:07 Dose: 20 mg Olanzapine (Olanzapine Odt 10 Mg Tab.Rapdis) 20 mg TRANSLINGU DAILY [facility] Last Admin: 06/24/22 09:23 Dose: 20 mg Psyllium Hydrophilic Mucilloid (Psyllium Seed 3.4 Gm Powd.Pack) 3.4 gm PO BID [facility] Last Admin: 06/24/22 09:26 Dose: 3.4 gm Trazodone HCl (Trazodone Hcl 50 Mg Tablet) 50 mg PO BEDTIME PRN PRN Reason: Insomnia Last Admin: 05/27/22 20:11 Dose: 50 mg Allergies Allergies Allergy/AdvReac Type Severity Reaction Status Date / Time bupropion [From Wellbutrin] Allergy Mild CAUSES Unverified 03/07/20 15:04 SWOLLEN HEAD tetracycline [Tetracycline] Allergy Mild UNKNOWN Unverified 03/07/20 15:04 trifluoperazine Allergy Mild UNKNOWN Unverified 03/07/20 15:04 [From Stelazine] clozapine [From Clozaril] AdvReac Mild SEIZURES,NE Unverified 03/07/20 15:04 UTROPENIA Assessment & Plan Assessment & Plan (1) Schizoaffective disorder, bipolar type: Status: Acute Code(s): F25.0 - Schizoaffective disorder, bipolar type Plan Eriberto is a 56 y.o. male with a past medical history of schizoaffective disorder, bipolar type. He presented to [facility] on 05/07/22 due to grandiose, paranoid delusional thought content, command AH. Per pt?s gf, he had been doing well until 05/02/22, however began responding to internal stimuli and on 05/06/22 he emptied his medications down the garbage disposal. Hx of IPLOC on section 8 at [facility] M[facility] in September- November 2021. Stabilized on lithium and olanzapine. Plan: Pt signed a CV, however does not appear to understand the conditional voluntary form and felt forced into doing this, states he is actually involuntary for the admission, will reject the CV. Will continue lithium 600 mg BID and olanzapine 30 mg HS, however pt says he intends to refuse. Li level 0.53 on admission. 05/08: Continue to offer meds, pt is intrusive, bizarre, makes vague statements about harming himself or others if forced to take meds, on 5 min checks 05/09: Refused to meet, declining medication 05/10: Refuses meds, not engaging in tx 05/11: Refuses meds, not engaging in tx. Pt is now a section VII. Will change olanzapine to ODT to promote adherence. 05/13: took meds last night. irritable, labile. reporting AH. 05/14 continue tx. 05/15: not consistently taking medication. hypersexual, bizarre. threatened to stab staff with scissors (which he had in his hand) and was not cooperative in returning razor to staff after shaving. 05/16 not taking meds, sect 7 continues offering meds. 05/17 continue tx. not taking meds ,pending court. 05/18: refusing meds. exposing his genitalia in the skelton, licking the floor, throwing urine-soaked playing cards at staff. 05/19: refusing meds. ripped crowns off teeth and threw them away; smearing food on self and door; leaving urine footprints in the skelton, smelling and dripping of the stuff. given medication restraint of zyprexa 10 and benadryl 50 IM after throwing hot soup in the milieu with peers in the area. 05/20: no change in presentation. refusing medications, denies he has mental illness. 05/21: sedated from having taken zyprexa 30 PO mg this morning. pushed staff in order to access kitchen last night, got zyprexa and benadryl IM after. 05/22: periods of agitation. defecated in shower. pacing, trying exits. continue current mgmt. 05/23: pt refusing meds, night prior he was disruptive on unit i.e. tearing up board games, intrusive towards peers 05/24: no med changes, refusing meds 05/25: refusing meds. court . wednesday was storing feces wrapped in paper towels on his shelving to save the universe. incontinent of urine in the milieu, slow to change/wash. 05/26: took zyprexa yesterday morning, refusing lithium. irritable. you are all lesbians trying to take over the world. 05/27: refusing meds. hearing tomorrow. to staff trying to administer meds: shove it up your ass! to female staff attempting to provide care: get out, bitch. you're a dog. get on your knees. [email or web address] declined mtg with TERA. 05/28: taking food from others' trays and throwing it away, masturbating in milieu, calling female staff bitch, ripped up checks sheet from off of [employer] clipboard, urinating on floor, pouring bottle of water onto floor. committed and ordered medication. 05/29 continue tx, back up IM per court order. 05/30/2022: Has only received olanzapine for the last 1-2 days, therefore unable to clearly evaluate efficacy. Given intensity of behaviors and interactions and psychosis, Will add olanzapine in the morning time i.e. 10 mg morning and 30 mg at bedtime with 10 mg IM backup morning and bedtime. Haldol as needed. 05/31/2022: No changes to current plan. Did have medication restraint today. 06/01: no change to plan. irritable, delusional. 06/02: no change in plan or presentation. 06/03: bizarre delusions. destroyed and threw away peer's art project. misogynistic comments. 06/04: irritable, verbally aggressive, refusing PO meds and getting IMs instead. 06/05: less verbally aggressive and irritable. took PO meds this morning rather than receive IMs. 06/07 no changes to tx plan 06/08: taking IMs all weekend. less aggressive and irritable, still disorganized and delusional. 06/09: PO meds this morning. defecated in shower and engaging in feces play yesterday. poor sleep. presentation essentially unchanged from yesterday. 06/10: stable presentation. loud, droning, disorganized, incoherent. taking meds PO. continue current mgmt. 06/11: stable presentation. loud, droning, disorganized, incoherent. taking meds PO. continue current mgmt. 06/12: stable presentation. loud, droning, disorganized, incoherent. taking meds PO. continue current mgmt. 06/13: Pt refused PO meds on evening of 06/12, received IMs. no changes to tx. disorganized, psychotic. 06/14: adherent with PO meds, some inappropriate comments 06/15: off Q5 min checks, adherent with PO meds 06/16: Check lithium level patient irritable dysphoric easily agitated question med compliance question whether patient is responding to olanzapine. 06/17: no change in presentation. 06/18: no change in presentation. lithium 0.54. 06/19: continue current mgmt. per staff, taking meds with less resistance, brighter, less labile, less aggressive. informed peer he hears very loud voices and that is why he speaks so loudly and to pardon him. 06/20 Continue tx plan. 06/21 Continue tx plan. 06/22 Continue current tx plan. 06/23: no change in presentation. continue current mgmt. 06/24: no change in presentation. continue current mgmt. Reason for contiued inpatient stay Substantial Risk for: harm to self, harm to others, inability to function and rapid decompensation Time Spent With Patient Time: Total time managing care of this patient today _20___ minutes.
[2022-06-24 20:24] VITALS: BP 139/72; PULSE 78; RESP 16; TEMP 36.6; O2SAT 96
[2022-06-25 07:00] VITALS: BMI 25.2
[2022-06-25 08:10] VITALS: BP 129/70; PULSE 78; RESP 20; TEMP 36.6; O2SAT 96
[2022-06-25] MEDS: Lithium Carbonate ER 300 MG TABLET.ER 600 MG PO (08:23)
[2022-06-25] MEDS: OLANZapine ODT 10 MG TAB.RAPDIS 20 MG TRANSLINGU ×2 (08:24→21:23)
--- NOTE | 2022-06-25 15:20 | HO.PSYCHPN ---
Subjective Subjective Date of Service: 06/25/22 Reason For Visit: AH, delusional Interim History: no change in presentation in general, but more opportunity for conflict today. pt notified MD he submitted a 3-day notice, MD explained his legal status and that such a submission is moot. pt demanded to know the result of his 3-day, MD stated he had been committed to the hospital. pt requested proof and was provided with court orders. pt disputed the fact of his mental illness and became profanely derogatory, suggesting MD insert the medications in MD's rectum, to paraphrase. MD unilaterally ended interview at that time. per staff, attended groups. less labile, denies anx/dep. says he is bored. playing cards. +RIS - laughing to himself often. slept about 5 hours overnight. Mental Status Exam Mental Status Exam Narrative: up and about the unit, appears adequately groomed. not cooperative. no PMA/PMR. thoughts linear in brief interaction, speech droning and loud. affect constricted, hypo-intense, labile. mood unknown. no SI/HI/AVH expressed. Diagnostics Vital Signs (24Hr): Vital Signs - 24 hr 06/24/22 20:24 06/25/22 08:10 Temperature 97.9 F 97.8 F Pulse Rate 78 78 Respiratory Rate 16 20 Blood Pressure 139/72 129/70 Pulse Oximetry 96 96 Oxygen Delivery Method Room Air Room Air BMI result Body Mass Index 25.2 Labs Results: 05/07/22 13:16 05/07/22 13:16 Medications Medications Current Medications Acetaminophen (Acetaminophen 325 Mg Tablet) 650 mg PO Q6H PRN PRN Reason: Headache/Pain Mild Scale (1-3) Al Hydroxide/Mg Hydroxide (Magnesium Hydrox/Alum Hydrox 30 Ml Oral.Susp) 30 ml PO Q6H PRN PRN Reason: Heartburn/Nausea Haloperidol (Haloperidol 5 Mg Tablet) 5 mg PO QID PRN PRN Reason: psychosis, agitati [place] Carbonate ([place] Carbonate Er 300 Mg Tablet.Er) 600 mg PO BID ANJ[facility] Last Admin: 06/25/22 08:23 Dose: 600 mg Magnesium Hydroxide (Milk Of Magnesia 30 Ml Oral.Susp) 30 ml PO DAILY PRN PRN Reason: Constipation Olanzapine (Olanzapine 10 Mg Vial) 10 mg IM BID PRN PRN Reason: refusal of PO zyprexa, per debra Last Admin: 06/12/22 22:55 Dose: 10 mg Olanzapine (Olanzapine Odt 10 Mg Tab.Rapdis) 20 mg TRANSLINGU BEDTIME [facility] Last Admin: 06/24/22 21:06 Dose: 20 mg Olanzapine (Olanzapine Odt 10 Mg Tab.Rapdis) 20 mg TRANSLINGU DAILY [facility] Last Admin: 06/25/22 08:24 Dose: 20 mg Psyllium Hydrophilic Mucilloid (Psyllium Seed 3.4 Gm Powd.Pack) 3.4 gm PO BID [facility] Last Admin: 06/25/22 08:25 Dose: 3.4 gm Trazodone HCl (Trazodone Hcl 50 Mg Tablet) 50 mg PO BEDTIME PRN PRN Reason: Insomnia Last Admin: 05/27/22 20:11 Dose: 50 mg Allergies Allergies Allergy/AdvReac Type Severity Reaction Status Date / Time bupropion [From Wellbutrin] Allergy Mild CAUSES Unverified 03/07/20 15:04 SWOLLEN HEAD tetracycline [Tetracycline] Allergy Mild UNKNOWN Unverified 03/07/20 15:04 trifluoperazine Allergy Mild UNKNOWN Unverified 03/07/20 15:04 [From Stelazine] clozapine [From Clozaril] AdvReac Mild SEIZURES,NE Unverified 03/07/20 15:04 UTROPENIA Assessment & Plan Assessment & Plan (1) Schizoaffective disorder, bipolar type: Status: Acute Code(s): F25.0 - Schizoaffective disorder, bipolar type Plan Eriberto is a 56 y.o. male with a past medical history of schizoaffective disorder, bipolar type. He presented to [facility] on 05/07/22 due to grandiose, paranoid delusional thought content, command AH. Per pt?s gf, he had been doing well until 05/02/22, however began responding to internal stimuli and on 05/06/22 he emptied his medications down the garbage disposal. Hx of IPLOC on section 8 at [facility] in September- November 2021. Stabilized on lithium and olanzapine. Plan: Pt signed a CV, however does not appear to understand the conditional voluntary form and felt forced into doing this, states he is actually involuntary for the admission, will reject the CV. Will continue lithium 600 mg BID and olanzapine 30 mg HS, however pt says he intends to refuse. Li level 0.53 on admission. 05/08: Continue to offer meds, pt is intrusive, bizarre, makes vague statements about harming himself or others if forced to take meds, on 5 min checks 05/09: Refused to meet, declining medication 05/10: Refuses meds, not engaging in tx 05/11: Refuses meds, not engaging in tx. Pt is now a section VII. Will change olanzapine to ODT to promote adherence. 05/13: took meds last night. irritable, labile. reporting AH. 05/14 continue tx. 05/15: not consistently taking medication. hypersexual, bizarre. threatened to stab staff with scissors (which he had in his hand) and was not cooperative in returning razor to staff after shaving. 05/16 not taking meds, sect 7 continues offering meds. 05/17 continue tx. not taking meds ,pending court. 05/18: refusing meds. exposing his genitalia in the skelton, licking the floor, throwing urine-soaked playing cards at staff. 05/19: refusing meds. ripped crowns off teeth and threw them away; smearing food on self and door; leaving urine footprints in the skelton, smelling and dripping of the stuff. given medication restraint of zyprexa 10 and benadryl 50 IM after throwing hot soup in the milieu with peers in the area. 05/20: no change in presentation. refusing medications, denies he has mental illness. 05/21: sedated from having taken zyprexa 30 PO mg this morning. pushed staff in order to access kitchen last night, got zyprexa and benadryl IM after. 05/22: periods of agitation. defecated in shower. pacing, trying exits. continue current mgmt. 05/23: pt refusing meds, night prior he was disruptive on unit i.e. tearing up board games, intrusive towards peers 05/24: no med changes, refusing meds 05/25: refusing meds. court . wednesday was storing feces wrapped in paper towels on his shelving to save the universe. incontinent of urine in the milieu, slow to change/wash. 05/26: took zyprexa yesterday morning, refusing lithium. irritable. you are all lesbians trying to take over the world. 05/27: refusing meds. hearing tomorrow. to staff trying to administer meds: shove it up your ass! to female staff attempting to provide care: get out, bitch. you're a dog. get on your knees. [email or web address] declined mtg with TERA. 05/28: taking food from others' trays and throwing it away, masturbating in milieu, calling female staff bitch, ripped up checks sheet from off of [employer]'s clipboard, urinating on floor, pouring bottle of water onto floor. committed and ordered medication. 05/29 continue tx, back up IM per court order. 05/30/2022: Has only received olanzapine for the last 1-2 days, therefore unable to clearly evaluate efficacy. Given intensity of behaviors and interactions and psychosis, Will add olanzapine in the morning time i.e. 10 mg morning and 30 mg at bedtime with 10 mg IM backup morning and bedtime. Haldol as needed. 05/31/2022: No changes to current plan. Did have medication restraint today. 06/01: no change to plan. irritable, delusional. 06/02: no change in plan or presentation. 06/03: bizarre delusions. destroyed and threw away peer's art project. misogynistic comments. 06/04: irritable, verbally aggressive, refusing PO meds and getting IMs instead. 06/05: less verbally aggressive and irritable. took PO meds this morning rather than receive IMs. 06/07 no changes to tx plan 06/08: taking IMs all weekend. less aggressive and irritable, still disorganized and delusional. 06/09: PO meds this morning. defecated in shower and engaging in feces play yesterday. poor sleep. presentation essentially unchanged from yesterday. 06/10: stable presentation. loud, droning, disorganized, incoherent. taking meds PO. continue current mgmt. 06/11: stable presentation. loud, droning, disorganized, incoherent. taking meds PO. continue current mgmt. 06/12: stable presentation. loud, droning, disorganized, incoherent. taking meds PO. continue current mgmt. 06/13: Pt refused PO meds on evening of 06/12, received IMs. no changes to tx. disorganized, psychotic. 06/14: adherent with PO meds, some inappropriate comments 06/15: off Q5 min checks, adherent with PO meds 06/16: Check lithium level patient irritable dysphoric easily agitated question med compliance question whether patient is responding to olanzapine. 06/17: no change in presentation. 06/18: no change in presentation. lithium 0.54. 06/19: continue current mgmt. per staff, taking meds with less resistance, brighter, less labile, less aggressive. informed peer he hears very loud voices and that is why he speaks so loudly and to pardon him. 06/20 Continue tx plan. 06/21 Continue tx plan. 06/22 Continue current tx plan. 06/23: no change in presentation. continue current mgmt. 06/24: no change in presentation. continue current mgmt. 06/25: agitation today on being presented with court orders, per his request. denies he has mental illness, gets angry, and verbally abuses MD. increase lithium dosing. Reason for contiued inpatient stay Substantial Risk for: harm to self, harm to others, inability to function and rapid decompensation Time Spent With Patient Time: Total time managing care of this patient today __25__ minutes.
[2022-06-25] MEDS: Lithium Carbonate ER 450 MG TABLET.ER 900 MG PO (21:23)
[2022-06-26 06:00] VITALS: BP 132/80; PULSE 76; RESP 16; TEMP 36.7; O2SAT 96
[2022-06-26] MEDS: OLANZapine ODT 10 MG TAB.RAPDIS 20 MG TRANSLINGU ×2 (09:38→23:08)
[2022-06-26] MEDS: Lithium Carbonate ER 300 MG TABLET.ER 600 MG PO (09:38)
--- NOTE | 2022-06-26 15:50 | P.PNPSI_ITS ---
Subjective Subjective Date of Service: 06/26/22 Reason For Visit: AH, delusional Interim History: spontaneously verbally aggressive and menacing towards MD, rising from his seat in the milieu and approaching MD saying very loudly that he did not stab anyone with scissors or throw his soup in the milieu. he called MD a liar, MD moved away with another pt whom MD had previously enjoined in discussion. per staff slowly getting improved in his senility. shaving. upset about medications increase. Mental Status Exam Mental Status Exam Narrative: up and about the unit, appears adequately groomed. not cooperative. no PMA/PMR. thoughts linear in brief interaction, speech droning and loud. affect constricted, hypo-intense, labile. mood unknown. no SI/HI/AVH expressed. Diagnostics Vital Signs (24Hr): Vital Signs - 24 hr 06/26/22 06:00 Temperature 98.1 F Pulse Rate 76 Respiratory Rate 16 Blood Pressure 132/80 Pulse Oximetry 96 Oxygen Delivery Method Room Air BMI result Body Mass Index 25.2 Labs 05/07/22 13:16 05/07/22 13:16 Medications Medications Current Medications Acetaminophen (Acetaminophen 325 Mg Tablet) 650 mg PO Q6H PRN PRN Reason: Headache/Pain Mild Scale (1-3) Al Hydroxide/Mg Hydroxide (Magnesium Hydrox/Alum Hydrox 30 Ml Oral.Susp) 30 ml PO Q6H PRN PRN Reason: Heartburn/Nausea Haloperidol (Haloperidol 5 Mg Tablet) 5 mg PO QID PRN PRN Reason: psychosis, agitati [place] Carbonate ([place] Carbonate Er 300 Mg Tablet.Er) 600 mg PO DAILY [facility] Last Admin: 06/26/22 09:38 Dose: 600 mg [place] Carbonate ([place] Carbonate Er 450 Mg Tablet.Er) 900 mg PO BEDTIME [facility] Last Admin: 06/25/22 21:23 Dose: 900 mg Magnesium Hydroxide (Milk Of Magnesia 30 Ml Oral.Susp) 30 ml PO DAILY PRN PRN Reason: Constipation Olanzapine (Olanzapine 10 Mg Vial) 10 mg IM BID PRN PRN Reason: refusal of PO zyprexa, per debra Last Admin: 06/12/22 22:55 Dose: 10 mg Olanzapine (Olanzapine Odt 10 Mg Tab.Rapdis) 20 mg TRANSLINGU BEDTIME [facility] Last Admin: 06/25/22 21:23 Dose: 20 mg Olanzapine (Olanzapine Odt 10 Mg Tab.Rapdis) 20 mg TRANSLINGU DAILY [facility] Last Admin: 06/26/22 09:38 Dose: 20 mg Psyllium Hydrophilic Mucilloid (Psyllium Seed 3.4 Gm Powd.Pack) 3.4 gm PO BID [facility] Last Admin: 06/26/22 09:38 Dose: 3.4 gm Trazodone HCl (Trazodone Hcl 50 Mg Tablet) 50 mg PO BEDTIME PRN PRN Reason: Insomnia Last Admin: 05/27/22 20:11 Dose: 50 mg Allergies Allergies Allergy/AdvReac Type Severity Reaction Status Date / Time bupropion [From Wellbutrin] Allergy Mild CAUSES Unverified 03/07/20 15:04 SWOLLEN HEAD tetracycline [Tetracycline] Allergy Mild UNKNOWN Unverified 03/07/20 15:04 trifluoperazine Allergy Mild UNKNOWN Unverified 03/07/20 15:04 [From Stelazine] clozapine [From Clozaril] AdvReac Mild SEIZURES,NE Unverified 03/07/20 15:04 UTROPENIA Assessment & Plan Assessment & Plan (1) Schizoaffective disorder, bipolar type: Status: Acute Code(s): F25.0 - Schizoaffective disorder, bipolar type Plan Eriberto is a 56 y.o. male with a past medical history of schizoaffective disorder, bipolar type. He presented to [facility] [place] [facility] on 05/07/22 due to grandiose, paranoid delusional thought content, command AH. Per pt?s gf, he had been doing well until 05/02/22, however began responding to internal stimuli and on 05/06 he emptied his medications down the garbage disposal. Hx of IPLOC on section [address] [facility] [place] M3 in September- November 2021. Stabilized on lithium and olanzapine. Plan: Pt signed a CV, however does not appear to understand the conditional voluntary form and felt forced into doing this, states he is actually i nvoluntary for the admission, will reject the CV. Will continue lithium 600 mg BID and olanzapine 30 mg HS, however pt says he intends to refuse. Li level 0.53 on admission. 05/08: Continue to offer meds, pt is intrusive, bizarre, makes vague statements about harming himself or others if forced to take meds, on 5 min checks 05/09: Refused to meet, declining medication 05/10: Refuses meds, not engaging in tx 05/11: Refuses meds, not engaging in tx. Pt is now a section VII. Will change olanzapine to ODT to promote adherence. 05/13: took meds last night. irritable, labile. reporting AH. 05/14 continue tx. 05/15: not consistently taking medication. hypersexual, bizarre. threatened to stab staff with scissors (which he had in his hand) and was not cooperative in returning razor to staff after shaving. 05/16 not taking meds, sect 7 continues offering meds. 05/17 continue tx. not taking meds ,pending court. 05/18: refusing meds. exposing his genitalia in the skel[place], licking the floor, th rowing urine-soaked playing cards at staff. 05/19: refusing meds. ripped crowns off teeth and threw them away; smearing food on self and door; leaving urine footprints in the skel[place], smelling and dripp ing of the stuff. given medication restraint of zyprexa 10 and benadryl 50 IM after throwing hot soup in the milieu with peers in the area. 05/20: no change in presentation. refusing medications, denies he has mental illness. 05/21: sedated from having taken zyprexa 30 PO mg this morning. pushed staff in order to access kitchen last night, got zyprexa and benadryl IM after. 05/22: periods of agitation. defecated in shower. pacing, trying exits. continue current mgmt. 05/23: pt refusing meds, night prior he was disruptive on unit i.e. tearing up board games, intrusive towards peers 05/24: no med changes, refusing meds 05/25: refusing meds. court . wednesday was storing feces wrapped in paper towels on his shelving to save the universe. incontinent of urine in the milieu, slow to change/wash. 05/26: took zyprexa yesterday morning, refusing lithium. irritable. you are all lesbians trying to take over the world. 05/27: refusing meds. hearing tomorrow. to staff trying to administer meds: shove it up your ass! to female staff attempting to provide care: get out, bitch. you're a dog. get on your knees. [id number] declined mtg with TERA. 05/28: taking food from others' trays and throwing it away, masturbating in milieu, calling female staff bitch, ripped up checks sheet from off of NA's clipboard, urinating on floor, pouring bottle of water onto floor. committed and ordered medication. 05/29 continue tx, back up IM per court order. 05/30/2022: Has only received olanzapine for the last 1-2 days, therefore unable to clearly evaluate efficacy. Given intensity of behaviors and interactions and psychosis, Will add olanzapine in the morning time i.e. 10 mg morning and 30 mg at bedtime with 10 mg IM backup morning and bedtime. Haldol as needed. 05/31/2022: No changes to current plan. Did have medication restraint today. 06/01: no change to plan. irritable, delusional. 06/02: no change in plan or presentation. 06/03: bizarre delusions. destroyed and threw away peer's art project. misogynistic comments. 06/04: irritable, verbally aggressive, refusing PO meds and getting IMs instead. 06/05: less verbally aggressive and irritable. took PO meds this morning rather than receive IMs. 06/07 no changes to tx plan 06/08: taking IMs all weekend. less aggressive and irritable, still disorganized and delusional. 06/09: PO meds this morning. defecated in shower and engaging in feces play yesterday. poor sleep. presentation essentially unchanged from yesterday. 06/10: stable presentation. loud, droning, disorganized, incoherent. taking meds PO. continue current mgmt. 06/11: stable presentation. loud, droning, disorganized, incoherent. taking meds PO. continue current mgmt. 06/12: stable presentation. loud, droning, disorganized, incoherent. taking meds PO. continue current mgmt. 06/13: Pt refused PO meds on evening of 06/12, received IMs. no changes to tx. disorganized, psychotic. 06/14: adherent with PO meds, some inappropriate comments 06/15: off Q5 min checks, adherent with PO meds 06/16: Check lithium level patient irritable dysphoric easily agitated question med compliance question whether patient is responding to olanzapine. 06/17: no change in presentation. 06/18: no change in presentation. lithium 0.54. 06/19: continue current mgmt. per staff, taking meds with less resistance, brighter, less labile, less aggressive. informed peer he hears very loud voices and that is why he speaks so loudly and to pardon him. 06/20 Continue tx plan. 06/21 Continue tx plan. 06/22 Continue current tx plan. 06/23: no change in presentation. continue current mgmt. 06/24: no change in presentation. continue current mgmt. 06/25: agitation today on being presented with court orders, per his request. denies he has mental illness, gets angry, and verbally abuses MD. increase lithium dosing. 06/26: pt clearly angry with MD, citing information from court order. appears somewhat edematous in the face today, will follow (lithium dosing increased last night). Reason for contiued inpatient stay Substantial Risk for: harm to self, harm to others, inability to function and rapid decompensation Time Spent With Patient Time: Total time managing care of this patient today _15___ minutes.
[2022-06-26] MEDS: Lithium Carbonate ER 450 MG TABLET.ER 900 MG PO (23:08)
[2022-06-27] MEDS: Lithium Carbonate ER 300 MG TABLET.ER 600 MG PO (08:41)
[2022-06-27] MEDS: OLANZapine ODT 10 MG TAB.RAPDIS 20 MG TRANSLINGU ×2 (08:42→23:50)
[2022-06-27 09:00] VITALS: BP 125/69; PULSE 93; RESP 20; TEMP 36.7; O2SAT 95
--- NOTE | 2022-06-27 10:49 | HO.PSYCHPN ---
Subjective Subjective Date of Service: 06/27/22 Reason For Visit: AH, delusional Subjective Notes: Section 8 Interim History: Pt sitting playing cards. He reports he is not concern about not sleeping, because special people do that. He reports medications are helping and not helping. Feels some benefit from medication but also reports thinks medications are poisoning him. He denies SI/HI. No behavioral concerns. Medication Compliance: Yes Review of Systems Review of Systems Yes Unobtainable due to mental status and Other ( ) Reports Abnormal speech present Mental Status Exam Mental Status Exam Narrative: up and about the unit, appears adequately groomed. not cooperative. no PMA/PMR. thoughts linear in brief interaction, speech droning and loud. affect constricted, hypo-intense, labile. mood unknown. no SI/HI/AVH expressed. Diagnostics Vital Signs (24Hr): Vital Signs - 24 hr 06/28/22 08:15 06/28/22 20:20 Temperature 98.4 F 97.4 F Pulse Rate 81 77 Respiratory Rate 20 16 Blood Pressure 134/71 133/72 Pulse Oximetry 97 95 Oxygen Delivery Method Room Air Room Air BMI result Body Mass Index 25.2 Labs 05/07/22 13:16 05/07/22 13:16 Medications Medications Current Medications Acetaminophen (Acetaminophen 325 Mg Tablet) 650 mg PO Q6H PRN PRN Reason: Headache/Pain Mild Scale (1-3) Al Hydroxide/Mg Hydroxide (Magnesium Hydrox/Alum Hydrox 30 Ml Oral.Susp) 30 ml PO Q6H PRN PRN Reason: Heartburn/Nausea Haloperidol (Haloperidol 5 Mg Tablet) 5 mg PO QID PRN PRN Reason: psychosis, agitati [place] Carbonate ([place] Carbonate Er 300 Mg Tablet.Er) 600 mg PO DAILY [facility] Last Admin: 06/28/22 08:26 Dose: 600 mg [place] Carbonate ([place] Carbonate Er 450 Mg Tablet.Er) 900 mg PO BEDTIME [facility] Last Admin: 06/28/22 22:05 Dose: 900 mg Magnesium Hydroxide (Milk Of Magnesia 30 Ml Oral.Susp) 30 ml PO DAILY PRN PRN Reason: Constipation Olanzapine (Olanzapine 10 Mg Vial) 10 mg IM BID PRN PRN Reason: refusal of PO zyprexa, per debra Last Admin: 06/12/22 22:55 Dose: 10 mg Olanzapine (Olanzapine Odt 10 Mg Tab.Rapdis) 20 mg TRANSLINGU BEDTIME [facility] Last Admin: 06/28/22 22:05 Dose: 20 mg Olanzapine (Olanzapine Odt 10 Mg Tab.Rapdis) 20 mg TRANSLINGU DAILY [facility] Last Admin: 06/28/22 08:26 Dose: 20 mg Psyllium Hydrophilic Mucilloid (Psyllium Seed 3.4 Gm Powd.Pack) 3.4 gm PO BID [facility] Last Admin: 06/28/22 22:05 Dose: 3.4 gm Trazodone HCl (Trazodone Hcl 50 Mg Tablet) 50 mg PO BEDTIME PRN PRN Reason: Insomnia Last Admin: 05/27/22 20:11 Dose: 50 mg Allergies Allergies Allergy/AdvReac Type Severity Reaction Status Date / Time bupropion [From Wellbutrin] Allergy Mild CAUSES Unverified 03/07/20 15:04 SWOLLEN HEAD tetracycline [Tetracycline] Allergy Mild UNKNOWN Unverified 03/07/20 15:04 trifluoperazine Allergy Mild UNKNOWN Unverified 03/07/20 15:04 [From Stelazine] clozapine [From Clozaril] AdvReac Mild SEIZURES,NE Unverified 03/07/20 15:04 UTROPENIA Assessment & Plan Assessment & Plan (1) Schizoaffective disorder, bipolar type: Status: Acute Code(s): F25.0 - Schizoaffective disorder, bipolar type Josr Wei is a 56 y.o. male with a past medical history of schizoaffective disorder, bipolar type. He presented to [facility] on 05/07/22 due to grandiose, paranoid delusional thought content, command AH. Per pt?s gf, he had been doing well until 05/02/22, however began responding to internal stimuli and on 05/06/22 he emptied his medications down the garbage disposal. Hx of IPLOC on section 8 at [facility] in September- November 2021. Stabilized on lithium and olanzapine. Plan: Pt signed a CV, however does not appear to understand the conditional voluntary form and felt forced into doing this, states he is actually involuntary for the admission, will reject the CV. Will continue lithium 600 mg BID and olanzapine 30 mg HS, however pt says he intends to refuse. Li level 0.53 on admission. 05/08: Continue to offer meds, pt is intrusive, bizarre, makes vague statements about harming himself or others if forced to take meds, on 5 min checks 05/09: Refused to meet, declining medication 05/10: Refuses meds, not engaging in tx 05/11: Refuses meds, not engaging in tx. Pt is now a section VII. Will change olanzapine to ODT to promote adherence. 05/13: took meds last night. irritable, labile. reporting AH. 05/14 continue tx. 05/15: not consistently taking medication. hypersexual, bizarre. threatened to stab staff with scissors (which he had in his hand) and was not cooperative in returning razor to staff after shaving. 05/16 not taking meds, sect 7 continues offering meds. 05/17 continue tx. not taking meds ,pending court. 05/18: refusing meds. exposing his genitalia in the skelton, licking the floor, throwing urine-soaked playing cards at staff. 05/19: refusing meds. ripped crowns off teeth and threw them away; smearing food on self and door; leaving urine footprints in the skelton, smelling and dripping of the stuff. given medication restraint of zyprexa 10 and benadryl 50 IM after throwing hot soup in the milieu with peers in the area. 05/20: no change in presentation. refusing medications, denies he has mental illness. 05/21: sedated from having taken zyprexa 30 PO mg this morning. pushed staff in order to access kitchen last night, got zyprexa and benadryl IM after. 05/22: periods of agitation. defecated in shower. pacing, trying exits. continue current mgmt. 05/23: pt refusing meds, night prior he was disruptive on unit i.e. tearing up board games, intrusive towards peers 05/24: no med changes, refusing meds 05/25: refusing meds. court . wednesday was storing feces wrapped in paper towels on his shelving to save the universe. incontinent of urine in the milieu, slow to change/wash. 05/26: took zyprexa yesterday morning, refusing lithium. irritable. you are all lesbians trying to take over the world. 05/27: refusing meds. hearing tomorrow. to staff trying to administer meds: shove it up your ass! to female staff attempting to provide care: get out, bitch. you're a dog. get on your knees. [id number] declined mtg with TERA. 05/28: taking food from others' trays and throwing it away, masturbating in milieu, calling female staff bitch, ripped up checks sheet from off of [employer]'s clipboard, urinating on floor, pouring bottle of water onto floor. committed and ordered medication. 05/29 continue tx, back up IM per court order. 05/30/2022: Has only received olanzapine for the last 1-2 days, therefore unable to clearly evaluate efficacy. Given intensity of behaviors and interactions and psychosis, Will add olanzapine in the morning time i.e. 10 mg morning and 30 mg at bedtime with 10 mg IM backup morning and bedtime. Haldol as needed. 05/31/2022: No changes to current plan. Did have medication restraint today. 06/01: no change to plan. irritable, delusional. 06/02: no change in plan or presentation. 06/03: bizarre delusions. destroyed and threw away peer's art project. misogynistic comments. 06/04: irritable, verbally aggressive, refusing PO meds and getting IMs instead. 06/05: less verbally aggressive and irritable. took PO meds this morning rather than receive IMs. 06/07 no changes to tx plan 06/08: taking IMs all weekend. less aggressive and irritable, still disorganized and delusional. 06/09: PO meds this morning. defecated in shower and engaging in feces play yesterday. poor sleep. presentation essentially unchanged from yesterday. 06/10: stable presentation. loud, droning, disorganized, incoherent. taking meds PO. continue current mgmt. 06/11: stable presentation. loud, droning, disorganized, incoherent. taking meds PO. continue current mgmt. 06/12: stable presentation. loud, droning, disorganized, incoherent. taking meds PO. continue current mgmt. 06/13: Pt refused PO meds on evening of 06/12, received IMs. no changes to tx. disorganized, psychotic. 06/14: adherent with PO meds, some inappropriate comments 06/15: off Q5 min checks, adherent with PO meds 06/16: Check lithium level patient irritable dysphoric easily agitated question med compliance question whether patient is responding to olanzapine. 06/17: no change in presentation. 06/18: no change in presentation. lithium 0.54. 06/19: continue current mgmt. per staff, taking meds with less resistance, brighter, less labile, less aggressive. informed peer he hears very loud voices and that is why he speaks so loudly and to pardon him. 06/20 Continue tx plan. 06/21 Continue tx plan. 06/22 Continue current tx plan. 06/23: no change in presentation. continue current mgmt. 06/24: no change in presentation. continue current mgmt. 06/25: agitation today on being presented with court orders, per his request. denies he has mental illness, gets angry, and verbally abuses MD. increase lithium dosing. 06/26: pt clearly angry with MD, citing information from court order. appears somewhat edematous in the face today, will follow (lithium dosing increased last night). 06/27 continue tx. Reason for contiued inpatient stay Substantial Risk for: harm to others and inability to function Time Spent With Patient Time: Total time managing care of this patient today ____ minutes.
[2022-06-27 23:40] VITALS: BP 134/75; PULSE 85; RESP 18; TEMP 36.7; O2SAT 95
[2022-06-27] MEDS: Lithium Carbonate ER 450 MG TABLET.ER 900 MG PO (23:50)
--- NOTE | 2022-06-28 06:28 | PC.NURSE ---
Pt became irritable when it came time to take HS medications last night. Pt became perseverative on feeling that he did not need to take medications, repeating I do not have mental illness, I do not need medications several times. Pt also stated you're murdering me with medicine I'll murder you back, I'll kill you . He was able to accept redirection to refrain from making such statements and to end the conversation due to inappropriateness and the time of night, as pt was irritable and raising his voice.
[2022-06-28 08:15] VITALS: BP 134/71; PULSE 81; RESP 20; TEMP 36.9; O2SAT 97
[2022-06-28] MEDS: OLANZapine ODT 10 MG TAB.RAPDIS 20 MG TRANSLINGU ×2 (08:26→22:05)
[2022-06-28] MEDS: Lithium Carbonate ER 300 MG TABLET.ER 600 MG PO (08:26)
--- NOTE | 2022-06-28 11:31 | HO.PSYCHPN ---
Subjective Subjective Date of Service: 06/28/22 Reason For Visit: AH, delusional Subjective Notes: Section 8 Interim History: Pt in bed. He states he does not want to talk about how he is doing or whether he is sleeping or not. He denies any physical concerns. He denies SI/HI. And quickly ends conversation with this show card writer without being threatening or significantly verbally aggressive. Per nursing, slightly better sleep. Medication Compliance: Yes Review of Systems Review of Systems Yes Unobtainable due to mental status and Other ( ) Reports Abnormal speech present Mental Status Exam Mental Status Exam Narrative: up and about the unit, appears adequately groomed. not cooperative. no PMA/PMR. thoughts linear in brief interaction, speech droning and loud. affect constricted, hypo-intense, labile. mood unknown. no SI/HI/AVH expressed. Diagnostics Vital Signs (24Hr): Vital Signs - 24 hr 06/28/22 08:15 06/28/22 20:20 Temperature 98.4 F 97.4 F Pulse Rate 81 77 Respiratory Rate 20 16 Blood Pressure 134/71 133/72 Pulse Oximetry 97 95 Oxygen Delivery Method Room Air Room Air BMI result Body Mass Index 25.2 Labs 05/07/22 13:16 05/07/22 13:16 Medications Medications Current Medications Acetaminophen (Acetaminophen 325 Mg Tablet) 650 mg PO Q6H PRN PRN Reason: Headache/Pain Mild Scale (1-3) Al Hydroxide/Mg Hydroxide (Magnesium Hydrox/Alum Hydrox 30 Ml Oral.Susp) 30 ml PO Q6H PRN PRN Reason: Heartburn/Nausea Haloperidol (Haloperidol 5 Mg Tablet) 5 mg PO QID PRN PRN Reason: psychosis, agitati [place] Carbonate ([place] Carbonate Er 300 Mg Tablet.Er) 600 mg PO DAILY [facility] Last Admin: 06/28/22 08:26 Dose: 600 mg [place] Carbonate ([place] Carbonate Er 450 Mg Tablet.Er) 900 mg PO BEDTIME [facility] Last Admin: 06/28/22 22:05 Dose: 900 mg Magnesium Hydroxide (Milk Of Magnesia 30 Ml Oral.Susp) 30 ml PO DAILY PRN PRN Reason: Constipation Olanzapine (Olanzapine 10 Mg Vial) 10 mg IM BID PRN PRN Reason: refusal of PO zyprexa, per debra Last Admin: 06/12/22 22:55 Dose: 10 mg Olanzapine (Olanzapine Odt 10 Mg Tab.Rapdis) 20 mg TRANSLINGU BEDTIME [facility] Last Admin: 06/28/22 22:05 Dose: 20 mg Olanzapine (Olanzapine Odt 10 Mg Tab.Rapdis) 20 mg TRANSLINGU DAILY [facility] Last Admin: 06/28/22 08:26 Dose: 20 mg Psyllium Hydrophilic Mucilloid (Psyllium Seed 3.4 Gm Powd.Pack) 3.4 gm PO BID [facility] Last Admin: 06/28/22 22:05 Dose: 3.4 gm Trazodone HCl (Trazodone Hcl 50 Mg Tablet) 50 mg PO BEDTIME PRN PRN Reason: Insomnia Last Admin: 05/27/22 20:11 Dose: 50 mg Allergies Allergies Allergy/AdvReac Type Severity Reaction Status Date / Time bupropion [From Wellbutrin] Allergy Mild CAUSES Unverified 03/07/20 15:04 SWOLLEN HEAD tetracycline [Tetracycline] Allergy Mild UNKNOWN Unverified 03/07/20 15:04 trifluoperazine Allergy Mild UNKNOWN Unverified 03/07/20 15:04 [From Stelazine] clozapine [From Clozaril] AdvReac Mild SEIZURES,NE Unverified 03/07/20 15:04 UTROPENIA Assessment & Plan Assessment & Plan (1) Schizoaffective disorder, bipolar type: Status: Acute Code(s): F25.0 - Schizoaffective disorder, bipolar type Plan Eriberto is a 56 y.o. male with a past medical history of schizoaffective disorder, bipolar type. He presented to [facility] on 05/07/22 due to grandiose, paranoid delusional thought content, command AH. Per pt?s gf, he had been doing well until 05/02/22, however began responding to internal stimuli and on 05/06/22 he emptied his medications down the garbage disposal. Hx of IPLOC on section 8 at [facility] in September- November 2021. Stabilized on lithium and olanzapine. Plan: Pt signed a CV, however does not appear to understand the conditional voluntary form and felt forced into doing this, states he is actually involuntary for the admission, will reject the CV. Will continue lithium 600 mg BID and olanzapine 30 mg HS, however pt says he intends to refuse. Li level 0.53 on admission. 05/08: Continue to offer meds, pt is intrusive, bizarre, makes vague statements about harming himself or others if forced to take meds, on 5 min checks 05/09: Refused to meet, declining medication 05/10: Refuses meds, not engaging in tx 05/11: Refuses meds, not engaging in tx. Pt is now a section VII. Will change olanzapine to ODT to promote adherence. 05/13: took meds last night. irritable, labile. reporting AH. 05/14 continue tx. 05/15: not consistently taking medication. hypersexual, bizarre. threatened to stab staff with scissors (which he had in his hand) and was not cooperative in returning razor to staff after shaving. 05/16 not taking meds, sect 7 continues offering meds. 05/17 continue tx. not taking meds ,pending court. 05/18: refusing meds. exposing his genitalia in the skelton, licking the floor, throwing urine-soaked playing cards at staff. 05/19: refusing meds. ripped crowns off teeth and threw them away; smearing food on self and door; leaving urine footprints in the skelton, smelling and dripping of the stuff. given medication restraint of zyprexa 10 and benadryl 50 IM after throwing hot soup in the milieu with peers in the area. 05/20: no change in presentation. refusing medications, denies he has mental illness. 05/21: sedated from having taken zyprexa 30 PO mg this morning. pushed staff in order to access kitchen last night, got zyprexa and benadryl IM after. 05/22: periods of agitation. defecated in shower. pacing, trying exits. continue current mgmt. 05/23: pt refusing meds, night prior he was disruptive on unit i.e. tearing up board games, intrusive towards peers 05/24: no med changes, refusing meds 05/25: refusing meds. court . wednesday was storing feces wrapped in paper towels on his shelving to save the universe. incontinent of urine in the milieu, slow to change/wash. 05/26: took zyprexa yesterday morning, refusing lithium. irritable. you are all lesbians trying to take over the world. 05/27: refusing meds. hearing tomorrow. to staff trying to administer meds: shove it up your ass! to female staff attempting to provide care: get out, bitch. you're a dog. get on your knees. [id number] declined mtg with TERA. 05/28: taking food from others' trays and throwing it away, masturbating in milieu, calling female staff bitch, ripped up checks sheet from off of [employer] clipboard, urinating on floor, pouring bottle of water onto floor. committed and ordered medication. 05/29 continue tx, back up IM per court order. 05/30/2022: Has only received olanzapine for the last 1-2 days, therefore unable to clearly evaluate efficacy. Given intensity of behaviors and interactions and psychosis, Will add olanzapine in the morning time i.e. 10 mg morning and 30 mg at bedtime with 10 mg IM backup morning and bedtime. Haldol as needed. 05/31/2022: No changes to current plan. Did have medication restraint today. 06/01: no change to plan. irritable, delusional. 06/02: no change in plan or presentation. 06/03: bizarre delusions. destroyed and threw away peer's art project. misogynistic comments. 06/04: irritable, verbally aggressive, refusing PO meds and getting IMs instead. 06/05: less verbally aggressive and irritable. took PO meds this morning rather than receive IMs. 06/07 no changes to tx plan 06/08: taking IMs all weekend. less aggressive and irritable, still disorganized and delusional. 06/09: PO meds this morning. defecated in shower and engaging in feces play yesterday. poor sleep. presentation essentially unchanged from yesterday. 06/10: stable presentation. loud, droning, disorganized, incoherent. taking meds PO. continue current mgmt. 06/11: stable presentation. loud, droning, disorganized, incoherent. taking meds PO. continue current mgmt. 06/12: stable presentation. loud, droning, disorganized, incoherent. taking meds PO. continue current mgmt. 06/13: Pt refused PO meds on evening of 06/12, received IMs. no changes to tx. disorganized, psychotic. 06/14: adherent with PO meds, some inappropriate comments 06/15: off Q5 min checks, adherent with PO meds 06/16: Check lithium level patient irritable dysphoric easily agitated question med compliance question whether patient is responding to olanzapine. 06/17: no change in presentation. 06/18: no change in presentation. lithium 0.54. 06/19: continue current mgmt. per staff, taking meds with less resistance, brighter, less labile, less aggressive. informed peer he hears very loud voices and that is why he speaks so loudly and to pardon him. 06/20 Continue tx plan. 06/21 Continue tx plan. 06/22 Continue current tx plan. 06/23: no change in presentation. continue current mgmt. 06/24: no change in presentation. continue current mgmt. 06/25: agitation today on being presented with court orders, per his request. denies he has mental illness, gets angry, and verbally abuses MD. increase lithium dosing. 06/26: pt clearly angry with MD, citing information from court order. appears somewhat edematous in the face today, will follow (lithium dosing increased last night). 06/27 continue tx. 06/28 continue tx. Reason for contiued inpatient stay Substantial Risk for: harm to others and inability to function Time Spent With Patient Time: Total time managing care of this patient today ____ minutes.
[2022-06-28 20:20] VITALS: BP 133/72; PULSE 77; RESP 16; TEMP 36.3; O2SAT 95
[2022-06-28] MEDS: Lithium Carbonate ER 450 MG TABLET.ER 900 MG PO (22:05)
[2022-06-29] MEDS: Lithium Carbonate ER 300 MG TABLET.ER 600 MG PO (08:16)
[2022-06-29] MEDS: OLANZapine ODT 10 MG TAB.RAPDIS 20 MG TRANSLINGU ×2 (08:16→22:02)
[2022-06-29 08:34] VITALS: BP 122/72; PULSE 88; RESP 18; TEMP 36.7; O2SAT 93
--- NOTE | 2022-06-29 18:22 | HO.PSYCHPN ---
Subjective Subjective Date of Service: 06/29/22 Reason For Visit: AH, delusional Interim History: pursues MD in [place] and loudly and menacingly informs MD he did not attempt to stab anyone with scissors or toss about his soup in the milieu. later seeks out MD and sits in interview room for 5 minutes and reads to MD some form of declaration he had written rejecting psychiatric medication. per staff watching TV on weekend. laughing to self due to voices from afar. on phone with GF, brighter aspect. asking if he must take meds. slept 11:30 - 3. Mental Status Exam Mental Status Exam Narrative: up and about the unit, appears adequately groomed. not cooperative. no PMA/PMR. thoughts tangential in brief interaction, speech droning and loud. affect constricted, hypo-intense, labile. mood unknown. no SI/HI/AVH expressed. Diagnostics Vital Signs (24Hr): Vital Signs - 24 hr 06/28/22 20:20 06/29/22 08:34 Temperature 97.4 F 98.1 F Pulse Rate 77 88 Respiratory Rate 16 18 Blood Pressure 133/72 122/72 Pulse Oximetry 95 93 Oxygen Delivery Method Room Air Room Air BMI result Body Mass Index 25.2 Labs 05/07/22 13:16 05/07/22 13:16 Medications Medications Current Medications Acetaminophen (Acetaminophen 325 Mg Tablet) 650 mg PO Q6H PRN PRN Reason: Headache/Pain Mild Scale (1-3) Al Hydroxide/Mg Hydroxide (Magnesium Hydrox/Alum Hydrox 30 Ml Oral.Susp) 30 ml PO Q6H PRN PRN Reason: Heartburn/Nausea Haloperidol (Haloperidol 5 Mg Tablet) 5 mg PO QID PRN PRN Reason: psychosis, agitati [place] Carbonate ([place] Carbonate Er 300 Mg Tablet.Er) 600 mg PO DAILY [facility] Last Admin: 06/29/22 08:16 Dose: 600 mg [place] Carbonate ([place] Carbonate Er 450 Mg Tablet.Er) 900 mg PO BEDTIME [facility] Last Admin: 06/28/22 22:05 Dose: 900 mg Magnesium Hydroxide (Milk Of Magnesia 30 Ml Oral.Susp) 30 ml PO DAILY PRN PRN Reason: Constipation Olanzapine (Olanzapine 10 Mg Vial) 10 mg IM BID PRN PRN Reason: refusal of PO zyprexa, per debra Last Admin: 12/23/22 22:55 Dose: 10 mg Olanzapine (Olanzapine Odt 10 Mg Tab.Rapdis) 20 mg TRANSLINGU BEDTIME [facility] Last Admin: 06/28/22 22:05 Dose: 20 mg Olanzapine (Olanzapine Odt 10 Mg Tab.Rapdis) 20 mg TRANSLINGU DAILY [facility] Last Admin: 06/29/22 08:16 Dose: 20 mg Psyllium Hydrophilic Mucilloid (Psyllium Seed 3.4 Gm Powd.Pack) 3.4 gm PO BID [facility] Last Admin: 06/29/22 08:16 Dose: 3.4 gm Trazodone HCl (Trazodone Hcl 50 Mg Tablet) 50 mg PO BEDTIME PRN PRN Reason: Insomnia Last Admin: 05/27/22 20:11 Dose: 50 mg Allergies Allergies Allergy/AdvReac Type Severity Reaction Status Date / Time bupropion [From Wellbutrin] Allergy Mild CAUSES Unverified 03/07/20 15:04 SWOLLEN HEAD tetracycline [Tetracycline] Allergy Mild UNKNOWN Unverified 03/07/20 15:04 trifluoperazine Allergy Mild UNKNOWN Unverified 03/07/20 15:04 [From Stelazine] clozapine [From Clozaril] AdvReac Mild SEIZURES,NE Unverified 03/07/20 15:04 UTROPENIA Assessment & Plan Assessment & Plan (1) Schizoaffective disorder, bipolar type: Status: Acute Code(s): F25.0 - Schizoaffective disorder, bipolar type Plan Eriberto is a 56 y.o. male with a past medical history of schizoaffective disorder, bipolar type. He presented to [facility] on 05/07/22 due to grandiose, paranoid delusional thought content, command AH. Per pt?s gf, he had been doing well until 05/02/22, however began responding to internal stimuli and on 05/06/22 he emptied his medications down the garbage disposal. Hx of IPLOC on section 8 at [facility] in September- November 2021. Stabilized on lithium and olanzapine. Plan: Pt signed a CV, however does not appear to understand the conditional voluntary form and felt forced into doing this, states he is actually involuntary for the admission, will reject the CV. Will continue lithium 600 mg BID and olanzapine 30 mg HS, however pt says he intends to refuse. Li level 0.53 on admission. 05/08: Continue to offer meds, pt is intrusive, bizarre, makes vague statements about harming himself or others if forced to take meds, on 5 min checks 05/09: Refused to meet, declining medication 05/10: Refuses meds, not engaging in tx 05/11: Refuses meds, not engaging in tx. Pt is now a section VII. Will change olanzapine to ODT to promote adherence. 05/13: took meds last night. irritable, labile. reporting AH. 05/14 continue tx. 05/15: not consistently taking medication. hypersexual, bizarre. threatened to stab staff with scissors (which he had in his hand) and was not cooperative in returning razor to staff after shaving. 05/16 not taking meds, sect 7 continues offering meds. 05/17 continue tx. not taking meds ,pending court. 05/18: refusing meds. exposing his genitalia in the [place], licking the floor, throwing urine-soaked playing cards at staff. 05/19: refusing meds. ripped crowns off teeth and threw them away; smearing food on self and door; leaving urine footprints in the [place], smelling and dripping of the stuff. given medication restraint of zyprexa 10 and benadryl 50 IM after throwing hot soup in the milieu with peers in the area. 05/20: no change in presentation. refusing medications, denies he has mental illness. 05/21: sedated from having taken zyprexa 30 PO mg this morning. pushed staff in order to access kitchen last night, got zyprexa and benadryl IM after. 05/22: periods of agitation. defecated in shower. pacing, trying exits. continue current mgmt. 05/23: pt refusing meds, night prior he was disruptive on unit i.e. tearing up board games, intrusive towards peers 05/24: no med changes, refusing meds 05/25: refusing meds. court . wednesday was storing feces wrapped in paper towels on his shelving to save the universe. incontinent of urine in the milieu, slow to change/wash. 05/26: took zyprexa yesterday morning, refusing lithium. irritable. you are all lesbians trying to take over the world. 05/27: refusing meds. hearing tomorrow. to staff trying to administer meds: shove it up your ass! to female staff attempting to provide care: get out, bitch. you're a dog. get on your knees. [id number] declined mtg with TERA. 05/28: taking food from others' trays and throwing it away, masturbating in milieu, calling female staff bitch, ripped up checks sheet from off of [employer] clipboard, urinating on floor, pouring bottle of water onto floor. committed and ordered medication. 05/29 continue tx, back up IM per court order. 05/30/2022: Has only received olanzapine for the last 1-2 days, therefore unable to clearly evaluate efficacy. Given intensity of behaviors and interactions and psychosis, Will add olanzapine in the morning time i.e. 10 mg morning and 30 mg at bedtime with 10 mg IM backup morning and bedtime. Haldol as needed. 05/31/2022: No changes to current plan. Did have medication restraint today. 06/01: no change to plan. irritable, delusional. 06/02: no change in plan or presentation. 06/03: bizarre delusions. destroyed and threw away peer's art project. misogynistic comments. 06/04: irritable, verbally aggressive, refusing PO meds and getting IMs instead. 06/05: less verbally aggressive and irritable. took PO meds this morning rather than receive IMs. 06/07 no changes to tx plan 06/08: taking IMs all weekend. less aggressive and irritable, still disorganized and delusional. 06/09: PO meds this morning. defecated in shower and engaging in feces play yesterday. poor sleep. presentation essentially unchanged from yesterday. 06/10: stable presentation. loud, droning, disorganized, incoherent. taking meds PO. continue current mgmt. 06/11: stable presentation. loud, droning, disorganized, incoherent. taking meds PO. continue current mgmt. 06/12: stable presentation. loud, droning, disorganized, incoherent. taking meds PO. continue current mgmt. 06/13: Pt refused PO meds on evening of 06/12, received IMs. no changes to tx. disorganized, psychotic. 06/14: adherent with PO meds, some inappropriate comments 06/15: off Q5 min checks, adherent with PO meds 06/16: Check lithium level patient irritable dysphoric easily agitated question med compliance question whether patient is responding to olanzapine. 06/17: no change in presentation. 06/18: no change in presentation. lithium 0.54. 06/19: continue current mgmt. per staff, taking meds with less resistance, brighter, less labile, less aggressive. informed peer he hears very loud voices and that is why he speaks so loudly and to pardon him. 06/20 Continue tx plan. 06/21 Continue tx plan. 06/22 Continue current tx plan. 06/23: no change in presentation. continue current mgmt. 06/24: no change in presentation. continue current mgmt. 06/25: agitation today on being presented with court orders, per his request. denies he has mental illness, gets angry, and verbally abuses MD. increase lithium dosing. 06/26: pt clearly angry with MD, citing information from court order. appears somewhat edematous in the face today, will follow (lithium dosing increased last night). 06/27 continue tx. 06/28 continue tx. 06/29: no change in mgmt. Patient educated on: medication risk/benefits Reason for contiued inpatient stay Substantial Risk for: harm to self, harm to others, inability to function and med/psych decompensation Time Spent With Patient Time: Total time managing care of this patient today _20___ minutes.
[2022-06-29 20:05] VITALS: BP 151/73; PULSE 79; RESP 16; TEMP 36.3; O2SAT 97
[2022-06-29] MEDS: Lithium Carbonate ER 450 MG TABLET.ER 900 MG PO (22:02)
[2022-06-30 08:53] VITALS: BP 94/54; PULSE 84; RESP 18; TEMP 36.7; O2SAT 96
[2022-06-30] MEDS: Lithium Carbonate ER 300 MG TABLET.ER 600 MG PO (08:54)
[2022-06-30] MEDS: OLANZapine ODT 10 MG TAB.RAPDIS 20 MG TRANSLINGU ×2 (08:54→22:02)
--- NOTE | 2022-06-30 17:40 | HO.PSYCHPN ---
Subjective Subjective Date of Service: 06/30/22 Reason For Visit: AH, delusional Interim History: no change in presentation. visible, singing with headphones. RIS. laughing to self. med-compliant, taking meals. no anx/dep. visit with GF and father. slept about 5 hours overnight. Mental Status Exam Mental Status Exam Narrative: up and about the unit, appears adequately groomed. not cooperative. no PMA/PMR. thoughts tangential in brief interaction, speech droning and loud. affect constricted, hypo-intense, labile. mood unknown. no SI/HI/AVH expressed. Diagnostics Vital Signs (24Hr): Vital Signs - 24 hr 06/29/22 20:05 06/30/22 08:53 Temperature 97.4 F 98.1 F Pulse Rate 79 84 Respiratory Rate 16 18 Blood Pressure 151/73 H 94/54 L Pulse Oximetry 97 96 Oxygen Delivery Method Room Air Room Air BMI result Body Mass Index 25.2 Labs 05/07/22 13:16 05/07/22 13:16 Medications Medications Current Medications Acetaminophen (Acetaminophen 325 Mg Tablet) 650 mg PO Q6H PRN PRN Reason: Headache/Pain Mild Scale (1-3) Al Hydroxide/Mg Hydroxide (Magnesium Hydrox/Alum Hydrox 30 Ml Oral.Susp) 30 ml PO Q6H PRN PRN Reason: Heartburn/Nausea Haloperidol (Haloperidol 5 Mg Tablet) 5 mg PO QID PRN PRN Reason: psychosis, agitati [place] Carbonate ([place] Carbonate Er 300 Mg Tablet.Er) 600 mg PO DAILY [facility] Last Admin: 06/30/22 08:54 Dose: 600 mg [place] Carbonate ([place] Carbonate Er 450 Mg Tablet.Er) 900 mg PO BEDTIME [facility] Last Admin: 06/29/22 22:02 Dose: 900 mg Magnesium Hydroxide (Milk Of Magnesia 30 Ml Oral.Susp) 30 ml PO DAILY PRN PRN Reason: Constipation Olanzapine (Olanzapine 10 Mg Vial) 10 mg IM BID PRN PRN Reason: refusal of PO zyprexa, per debra Last Admin: 06/12/22 22:55 Dose: 10 mg Olanzapine (Olanzapine Odt 10 Mg Tab.Rapdis) 20 mg TRANSLINGU BEDTIME [facility] Last Admin: 06/29/22 22:02 Dose: 20 mg Olanzapine (Olanzapine Odt 10 Mg Tab.Rapdis) 20 mg TRANSLINGU DAILY [facility] Last Admin: 06/30/22 08:54 Dose: 20 mg Psyllium Hydrophilic Mucilloid (Psyllium Seed 3.4 Gm Powd.Pack) 3.4 gm PO BID [facility] Last Admin: 06/30/22 08:54 Dose: 3.4 gm Trazodone HCl (Trazodone Hcl 50 Mg Tablet) 50 mg PO BEDTIME PRN PRN Reason: Insomnia Last Admin: 05/27/22 20:11 Dose: 50 mg Allergies Allergies Allergy/AdvReac Type Severity Reaction Status Date / Time bupropion [From Wellbutrin] Allergy Mild CAUSES Unverified 03/07/20 15:04 SWOLLEN HEAD tetracycline [Tetracycline] Allergy Mild UNKNOWN Unverified 03/07/20 15:04 trifluoperazine Allergy Mild UNKNOWN Unverified 03/07/20 15:04 [From Stelazine] clozapine [From Clozaril] AdvReac Mild SEIZURES,NE Unverified 03/07/20 15:04 UTROPENIA Assessment & Plan Assessment & Plan (1) Schizoaffective disorder, bipolar type: Status: Acute Code(s): F25.0 - Schizoaffective disorder, bipolar type Plan Eriberto is a 56 y.o. male with a past medical history of schizoaffective disorder, bipolar type. He presented [place] [facility] [place] due to grandiose, paranoid delusional thought content, command AH. Per pt?s gf, he had been doing well until 05/02/22, however began responding to internal stimuli and on 05/06/22 he emptied his medications down the garbage disposal. Hx of IPLOC on section 8 at [facility] in September- November 2021. Stabilized on lithium and olanzapine. Plan: Pt signed a CV, however does not appear to understand the conditional voluntary form and felt forced into doing this, states he is actually involuntary for the admission, will reject the CV. Will continue lithium 600 mg BID and olanzapine 30 mg HS, however pt says he intends to refuse. Li level 0.53 on admission. 05/08: Continue to offer meds, pt is intrusive, bizarre, makes vague statements about harming himself or others if forced to take meds, on 5 min checks 05/09: Refused to meet, declining medication 05/10: Refuses meds, not engaging in tx 05/11: Refuses meds, not engaging in tx. Pt is now a section VII. Will change olanzapine to ODT to promote adherence. 05/13: took meds last night. irritable, labile. reporting AH. 05/14 continue tx. 05/15: not consistently taking medication. hypersexual, bizarre. threatened to stab staff with scissors (which he had in his hand) and was not cooperative in returning razor to staff after shaving. 05/16 not taking meds, sect 7 continues offering meds. 05/17 continue tx. not taking meds ,pending court. 05/18: refusing meds. exposing his genitalia in the [place], licking the floor, throwing urine-soaked playing cards at staff. 05/19: refusing meds. ripped crowns off teeth and threw them away; smearing food on self and door; leaving urine footprints in the [place], smelling and dripping of the stuff. given medication restraint of zyprexa 10 and benadryl 50 IM after throwing hot soup in the milieu with peers in the area. 05/20: no change in presentation. refusing medications, denies he has mental illness. 05/21: sedated from having taken zyprexa 30 PO mg this morning. pushed staff in order to access kitchen last night, got zyprexa and benadryl IM after. 05/22: periods of agitation. defecated in shower. pacing, trying exits. continue current mgmt. 05/23: pt refusing meds, night prior he was disruptive on unit i.e. tearing up board games, intrusive towards peers 05/24: no med changes, refusing meds 05/25: refusing meds. court . wednesday was storing feces wrapped in paper towels on his shelving to save the universe. incontinent of urine in the milieu, slow to change/wash. 05/26: took zyprexa yesterday morning, refusing lithium. irritable. you are all lesbians trying to take over the world. 05/27: refusing meds. hearing tomorrow. to staff trying to administer meds: shove it up your ass! to female staff attempting to provide care: get out, bitch. you're a dog. get on your knees. [id number] declined mtg with TERA. 05/28: taking food from others' trays and throwing it away, masturbating in milieu, calling female staff bitch, ripped up checks sheet from off of [employer] clipboard, urinating on floor, pouring bottle of water onto floor. committed and ordered medication. 05/29 continue tx, back up IM per court order. 05/30/2022: Has only received olanzapine for the last 1-2 days, therefore unable to clearly evaluate efficacy. Given intensity of behaviors and interactions and psychosis, Will add olanzapine in the morning time i.e. 10 mg morning and 30 mg at bedtime with 10 mg IM backup morning and bedtime. Haldol as needed. 05/31/2022: No changes to current plan. Did have medication restraint today. 06/01: no change to plan. irritable, delusional. 06/02: no change in plan or presentation. 06/03: bizarre delusions. destroyed and threw away peer's art project. misogynistic comments. 06/04: irritable, verbally aggressive, refusing PO meds and getting IMs instead. 06/05: less verbally aggressive and irritable. took PO meds this morning rather than receive IMs. 06/07 no changes to tx plan 06/08: taking IMs all weekend. less aggressive and irritable, still disorganized and delusional. 06/09: PO meds this morning. defecated in shower and engaging in feces play yesterday. poor sleep. presentation essentially unchanged from yesterday. 06/10: stable presentation. loud, droning, disorganized, incoherent. taking meds PO. continue current mgmt. 06/11: stable presentation. loud, droning, disorganized, incoherent. taking meds PO. continue current mgmt. 06/12: stable presentation. loud, droning, disorganized, incoherent. taking meds PO. continue current mgmt. 06/13: Pt refused PO meds on evening of 06/12, received IMs. no changes to tx. disorganized, psychotic. 06/14: adherent with PO meds, some inappropriate comments 06/15: off Q5 min checks, adherent with PO meds 12/27: Check lithium level patient irritable dysphoric easily agitated question med compliance question whether patient is responding to olanzapine. 06/17: no change in presentation. 06/18: no change in presentation. lithium 0.54. 06/19: continue current mgmt. per staff, taking meds with less resistance, brighter, less labile, less aggressive. informed peer he hears very loud voices and that is why he speaks so loudly and to pardon him. 06/20 Continue tx plan. 06/21 Continue tx plan. 06/22 Continue current tx plan. 06/23: no change in presentation. continue current mgmt. 06/24: no change in presentation. continue current mgmt. 06/25: agitation today on being presented with court orders, per his request. denies he has mental illness, gets angry, and verbally abuses MD. increase lithium dosing. 06/26: pt clearly angry with MD, citing information from court order. appears somewhat edematous in the face today, will follow (lithium dosing increased last night). 06/27 continue tx. 06/28 continue tx. 06/29: no change in mgmt. 06/30: no change in presentation, no change in mgmt. Reason for contiued inpatient stay Substantial Risk for: harm to self, harm to others, inability to function and rapid decompensation Time Spent With Patient Time: Total time managing care of this patient today __20__ minutes.
[2022-06-30 20:55] VITALS: BP 143/74; PULSE 87; RESP 16; TEMP 37.1; O2SAT 96
[2022-06-30] MEDS: Lithium Carbonate ER 450 MG TABLET.ER 900 MG PO (22:02)
[2022-07-01] MEDS: OLANZapine ODT 10 MG TAB.RAPDIS 20 MG TRANSLINGU ×2 (09:14→22:15)
[2022-07-01] MEDS: Lithium Carbonate ER 300 MG TABLET.ER 600 MG PO (09:15)
[2022-07-01 09:21] VITALS: BP 194/65; PULSE 91; RESP 18; TEMP 36.8; O2SAT 95
--- NOTE | 2022-07-01 16:01 | HO.PSYCHPN ---
Subjective Subjective Date of Service: 07/01/22 Reason For Visit: AH, delusional Interim History: no change in presentation. per staff, brief participation in some activities. singing, playing cards, eating. denies mental illness. guarded, difficult to engage. slept about 6 hours overnight. Mental Status Exam Mental Status Exam Narrative: up and about the unit, appears adequately groomed. not cooperative. no PMA/PMR. thoughts tangential in brief interaction, speech droning and loud. affect constricted, hypo-intense, labile. mood unknown. no SI/HI/AVH expressed. Diagnostics Vital Signs (24Hr): Vital Signs - 24 hr 06/30/22 20:55 07/01/22 09:21 Temperature 98.7 F 98.3 F Pulse Rate 87 91 Respiratory Rate 16 18 Blood Pressure 143/74 H 194/65 H Pulse Oximetry 96 95 Oxygen Delivery Method Room Air BMI result Body Mass Index 25.2 Labs 05/07/22 13:16 05/07/22 13:16 Medications Medications Current Medications Acetaminophen (Acetaminophen 325 Mg Tablet) 650 mg PO Q6H PRN PRN Reason: Headache/Pain Mild Scale (1-3) Al Hydroxide/Mg Hydroxide (Magnesium Hydrox/Alum Hydrox 30 Ml Oral.Susp) 30 ml PO Q6H PRN PRN Reason: Heartburn/Nausea Haloperidol (Haloperidol 5 Mg Tablet) 5 mg PO QID PRN PRN Reason: psychosis, agitati [place] Carbonate ([place] Carbonate Er 300 Mg Tablet.Er) 600 mg PO DAILY [facility] Last Admin: 07/01/22 09:15 Dose: 600 mg [place] Carbonate ([place] Carbonate Er 450 Mg Tablet.Er) 900 mg PO BEDTIME [facility] Last Admin: 06/30/22 22:02 Dose: 900 mg Magnesium Hydroxide (Milk Of Magnesia 30 Ml Oral.Susp) 30 ml PO DAILY PRN PRN Reason: Constipation Olanzapine (Olanzapine 10 Mg Vial) 10 mg IM BID PRN PRN Reason: refusal of PO zyprexa, per debra Last Admin: 06/12/22 22:55 Dose: 10 mg Olanzapine (Olanzapine Odt 10 Mg Tab.Rapdis) 20 mg TRANSLINGU BEDTIME [facility] Last Admin: 06/30/22 22:02 Dose: 20 mg Olanzapine (Olanzapine Odt 10 Mg Tab.Rapdis) 20 mg TRANSLINGU DAILY [facility] Last Admin: 07/01/22 09:14 Dose: 20 mg Psyllium Hydrophilic Mucilloid (Psyllium Seed 3.4 Gm Powd.Pack) 3.4 gm PO BID ANJUM Last Admin: 07/01/22 09:18 Dose: 3.4 gm Trazodone HCl (Trazodone Hcl 50 Mg Tablet) 50 mg PO BEDTIME PRN PRN Reason: Insomnia Last Admin: 05/27/22 20:11 Dose: 50 mg Allergies Allergies Allergy/AdvReac Type Severity Reaction Status Date / Time bupropion [From Wellbutrin] Allergy Mild CAUSES Unverified 03/07/20 15:04 SWOLLEN HEAD tetracycline [Tetracycline] Allergy Mild UNKNOWN Unverified 03/07/20 15:04 trifluoperazine Allergy Mild UNKNOWN Unverified 03/07/20 15:04 [From Stelazine] clozapine [From Clozaril] AdvReac Mild SEIZURES,NE Unverified 03/07/20 15:04 UTROPENIA Assessment & Plan Assessment & Plan (1) Schizoaffective disorder, bipolar type: Status: Acute Code(s): F25.0 - Schizoaffective disorder, bipolar type Plan Eriberto is a 56 y.o. male with a past medical history of schizoaffective disorder, bipolar type. He presented to [facility] on 05/07/22 due to grandiose, paranoid delusional thought content, command AH. Per pt?s gf, he had been doing well until 05/02/22, however began responding to internal stimuli and on 05/06/22 he emptied his medications down the garbage disposal. Hx of IPLOC on section 8 at [facility] in September- November 2021. Stabilized on lithium and olanzapine. Plan: Pt signed a CV, however does not appear to understand the conditional voluntary form and felt forced into doing this, states he is actually involuntary for the admission, will reject the CV. Will continue lithium 600 mg BID and olanzapine 30 mg HS, however pt says he intends to refuse. Li level 0.53 on admission. 05/08: Continue to offer meds, pt is intrusive, bizarre, makes vague statements about harming himself or others if forced to take meds, on 5 min checks 05/09: Refused to meet, declining medication 05/10: Refuses meds, not engaging in tx 05/11: Refuses meds, not engaging in tx. Pt is now a section VII. Will change olanzapine to ODT to promote adherence. 05/13: took meds last night. irritable, labile. reporting AH. 05/14 continue tx. 05/15: not consistently taking medication. hypersexual, bizarre. threatened to stab staff with scissors (which he had in his hand) and was not cooperative in returning razor to staff after shaving. 05/16 not taking meds, sect 7 continues offering meds. 05/17 continue tx. not taking meds ,pending court. 05/18: refusing meds. exposing his genitalia in the skelton, licking the floor, throwing urine-soaked playing cards at staff. 05/19: refusing meds. ripped crowns off teeth and threw them away; smearing food on self and door; leaving urine footprints in the skelton, smelling and dripping of the stuff. given medication restraint of zyprexa 10 and benadryl 50 IM after throwing hot soup in the milieu with peers in the area. 05/20: no change in presentation. refusing medications, denies he has mental illness. 05/21: sedated from having taken zyprexa 30 PO mg this morning. pushed staff in order to access kitchen last night, got zyprexa and benadryl IM after. 05/22: periods of agitation. defecated in shower. pacing, trying exits. continue current mgmt. 05/23: pt refusing meds, night prior he was disruptive on unit i.e. tearing up board games, intrusive towards peers 05/24: no med changes, refusing meds 05/25: refusing meds. court . wednesday was storing feces wrapped in paper towels on his shelving to save the universe. incontinent of urine in the milieu, slow to change/wash. 05/26: took zyprexa yesterday morning, refusing lithium. irritable. you are all lesbians trying to take over the world. 05/27: refusing meds. hearing tomorrow. to staff trying to administer meds: shove it up your ass! to female staff attempting to provide care: get out, bitch. you're a dog. get on your knees. [id number] declined mtg with TERA. 05/28: taking food from others' trays and throwing it away, masturbating in milieu, calling female staff bitch, ripped up checks sheet from off of [employer]'s clipboard, urinating on floor, pouring bottle of water onto floor. committed and ordered medication. 05/29 continue tx, back up IM per court order. 05/30/2022: Has only received olanzapine for the last 1-2 days, therefore unable to clearly evaluate efficacy. Given intensity of behaviors and interactions and psychosis, Will add olanzapine in the morning time i.e. 10 mg morning and 30 mg at bedtime with 10 mg IM backup morning and bedtime. Haldol as needed. 05/31/2022: No changes to current plan. Did have medication restraint today. 06/01: no change to plan. irritable, delusional. 06/02: no change in plan or presentation. 06/03: bizarre delusions. destroyed and threw away peer's art project. misogynistic comments. 06/04: irritable, verbally aggressive, refusing PO meds and getting IMs instead. 06/05: less verbally aggressive and irritable. took PO meds this morning rather than receive IMs. 06/07 no changes to tx plan 06/08: taking IMs all weekend. less aggressive and irritable, still disorganized and delusional. 06/09: PO meds this morning. defecated in shower and engaging in feces play yesterday. poor sleep. presentation essentially unchanged from yesterday. 06/10: stable presentation. loud, droning, disorganized, incoherent. taking meds PO. continue current mgmt. 06/11: stable presentation. loud, droning, disorganized, incoherent. taking meds PO. continue current mgmt. 06/12: stable presentation. loud, droning, disorganized, incoherent. taking meds PO. continue current mgmt. 06/13: Pt refused PO meds on evening of 06/12, received IMs. no changes to tx. disorganized, psychotic. 06/14: adherent with PO meds, some inappropriate comments 06/15: off Q5 min checks, adherent with PO meds 06/16: Check lithium level patient irritable dysphoric easily agitated question med compliance question whether patient is responding to olanzapine. 06/17: no change in presentation. 06/18: no change in presentation. lithium 0.54. 06/19: continue current mgmt. per staff, taking meds with less resistance, brighter, less labile, less aggressive. informed peer he hears very loud voices and that is why he speaks so loudly and to pardon him. 06/20 Continue tx plan. 06/21 Continue tx plan. 06/22 Continue current tx plan. 06/23: no change in presentation. continue current mgmt. 06/24: no change in presentation. continue current mgmt. 06/25: agitation today on being presented with court orders, per his request. denies he has mental illness, gets angry, and verbally abuses MD. increase lithium dosing. 06/26: pt clearly angry with MD, citing information from court order. appears somewhat edematous in the face today, will follow (lithium dosing increased last night). 06/27 continue tx. 06/28 continue tx. 06/29: no change in mgmt. 06/30: no change in presentation, no change in mgmt. 07/01: continue current mgmt. slept 6 hours overnight. otherwise remains bizarre. Reason for contiued inpatient stay Substantial Risk for: harm to self, harm to others, inability to function and rapid decompensation Time Spent With Patient Time: Total time managing care of this patient today _20___ minutes.
[2022-07-01] MEDS: Lithium Carbonate ER 450 MG TABLET.ER 900 MG PO (22:15)
[2022-07-01 22:16] VITALS: BP 129/72; PULSE 86; RESP 20; TEMP 36.7; O2SAT 96
[2022-07-02] MEDS: Lithium Carbonate ER 300 MG TABLET.ER 600 MG PO (08:41)
[2022-07-02] MEDS: OLANZapine ODT 10 MG TAB.RAPDIS 20 MG TRANSLINGU ×2 (08:41→22:11)
[2022-07-02 09:33] VITALS: BP 124/64; PULSE 75; RESP 16; TEMP 36.2; O2SAT 97
--- NOTE | 2022-07-02 15:11 | P.PNPSI_ITS ---
Subjective Subjective Date of Service: 07/02/22 Reason For Visit: AH, delusional Interim History: calm, cooperative, terse. no requests or complaints. per staff, slept about 3.5-4 hours last night. had a good day yesterday, coounicating more clearly. upset at GF for getting rid of vitamins. Mental Status Exam Mental Status Exam Narrative: up and about the unit, appears adequately groomed. cooperative. no PMA/PMR. thoughts linear in brief interaction, speech droning and loud. affect constricted, hypo-intense, labile. mood unknown. no SI/HI/AVH expressed. Diagnostics Vital Signs (24Hr): Vital Signs - 24 hr 07/01/22 22:16 07/02/22 09:33 Temperature 98.1 F 97.2 F Pulse Rate 86 75 Respiratory Rate 20 16 Blood Pressure 129/72 124/64 Pulse Oximetry 96 97 Oxygen Delivery Method Room Air Room Air BMI result Body Mass Index 25.2 Labs 05/07/22 13:16 05/07/22 13:16 Medications Medications Current Medications Acetaminophen (Acetaminophen 325 Mg Tablet) 650 mg PO Q6H PRN PRN Reason: Headache/Pain Mild Scale (1-3) Al Hydroxide/Mg Hydroxide (Magnesium Hydrox/Alum Hydrox 30 Ml Oral.Susp) 30 ml PO Q6H PRN PRN Reason: Heartburn/Nausea Haloperidol (Haloperidol 5 Mg Tablet) 5 mg PO QID PRN PRN Reason: psychosis, agitati [place] Carbonate ([place] Carbonate Er 300 Mg Tablet.Er) 600 mg PO DAILY [facility] Last Admin: 07/02/22 08:41 Dose: 600 mg [place] Carbonate ([place] Carbonate Er 450 Mg Tablet.Er) 900 mg PO BEDTIME [facility] Last Admin: 07/01/22 22:15 Dose: 900 mg Magnesium Hydroxide (Milk Of Magnesia 30 Ml Oral.Susp) 30 ml PO DAILY PRN PRN Reason: Constipation Olanzapine (Olanzapine 10 Mg Vial) 10 mg IM BID PRN PRN Reason: refusal of PO zyprexa, per debra Last Admin: 06/12/22 22:55 Dose: 10 mg Olanzapine (Olanzapine Odt 10 Mg Tab.Rapdis) 20 mg TRANSLINGU BEDTIME [facility] Last Admin: 07/01/22 22:15 Dose: 20 mg Olanzapine (Olanzapine Odt 10 Mg Tab.Rapdis) 20 mg TRANSLINGU DAILY [facility] Last Admin: 07/02/22 08:41 Dose: 20 mg Psyllium Hydrophilic Mucilloid (Psyllium Seed 3.4 Gm Powd.Pack) 3.4 gm PO BID [facility] Last Admin: 07/02/22 08:41 Dose: 3.4 gm Trazodone HCl (Trazodone Hcl 50 Mg Tablet) 50 mg PO BEDTIME PRN PRN Reason: Insomnia Last Admin: 05/27/22 20:11 Dose: 50 mg Allergies Allergies Allergy/AdvReac Type Severity Reaction Status Date / Time bupropion [From Wellbutrin] Allergy Mild CAUSES Unverified 03/07/20 15:04 SWOLLEN HEAD tetracycline [Tetracycline] Allergy Mild UNKNOWN Unverified 03/07/20 15:04 trifluoperazine Allergy Mild UNKNOWN Unverified 03/07/20 15:04 [From Stelazine] clozapine [From Clozaril] AdvReac Mild SEIZURES,NE Unverified 03/07/20 15:04 UTROPENIA Assessment & Plan Assessment & Plan (1) Schizoaffective disorder, bipolar type: Status: Acute Code(s): F25.0 - Schizoaffective disorder, bipolar type Plan Eriberto is a 56 y.o. male with a past medical history of schizoaffective disorder, bipolar type. He presented to [facility] ED on 05/07/22 due to grandiose, paranoid delusional thought content, command AH. Per pt?s gf, he had been doing well until 05/02/22, however began responding to internal stimuli and on 05/06/22 he emptied his medications down the garbage disposal. Hx of IPLOC on section 8 at [facility] in September- November 2021. Stabilized on lithium and olanzapine. Plan: Pt signed a CV, however does not appear to understand the conditional voluntary form and felt forced into doing this, states he is actually involuntary for the admission, will reject the CV. Will continue lithium 600 mg BID and olanzapine 30 mg HS, however pt says he intends to refuse. Li level 0.53 on admission. 05/08: Continue to offer meds, pt is intrusive, bizarre, makes vague statements about harming himself or others if forced to take meds, on 5 min checks 05/09: Refused to meet, declining medication 05/10: Refuses meds, not engaging in tx 05/11: Refuses meds, not engaging in tx. Pt is now a section VII. Will change olanzapine to ODT to promote adherence. 05/13: took meds last night. irritable, labile. reporting AH. 05/14 continue tx. 05/15: not consistently taking medication. hypersexual, bizarre. threatened to stab staff with scissors (which he had in his hand) and was not cooperative in returning razor to staff after shaving. 05/16 not taking meds, sect 7 continues offering meds. 05/17 continue tx. not taking meds ,pending court. 05/18: refusing meds. exposing his genitalia in the skelton, licking the floor, throwing urine-soaked playing cards at staff. 05/19: refusing meds. ripped crowns off teeth and threw them away; smearing food on self and door; leaving urine footprints in the skelton, smelling and dripping of the stuff. given medication restraint of zyprexa 10 and benadryl 50 IM after throwing hot soup in the milieu with peers in the area. 05/20: no change in presentation. refusing medications, denies he has mental illness. 05/21: sedated from having taken zyprexa 30 PO mg this morning. pushed staff in order to access kitchen last night, got zyprexa and benadryl IM after. 05/22: periods of agitation. defecated in shower. pacing, trying exits. continue current mgmt. 05/23: pt refusing meds, night prior he was disruptive on unit i.e. tearing up board games, intrusive towards peers 05/24: no med changes, refusing meds 05/25: refusing meds. court . wednesday was storing feces wrapped in paper towels on his shelving to save the universe. incontinent of urine in the milieu, slow to change/wash. 05/26: took zyprexa yesterday morning, refusing lithium. irritable. you are all lesbians trying to take over the world. 05/27: refusing meds. hearing tomorrow. to staff trying to administer meds: shove it up your ass! to female staff attempting to provide care: get out, bitch. you're a dog. get on your knees. [id number] declined mtg with TERA. 05/28: taking food from others' trays and throwing it away, masturbating in milieu, calling female staff bitch, ripped up checks sheet from off of [email or web address] clipboard, urinating on floor, pouring bottle of water onto floor. committed and ordered medication. 05/29 continue tx, back up IM per court order. 05/30/2022: Has only received olanzapine for the last 1-2 days, therefore unable to clearly evaluate efficacy. Given intensity of behaviors and interactions and psychosis, Will add olanzapine in the morning time i.e. 10 mg morning and 30 mg at bedtime with 10 mg IM backup morning and bedtime. Haldol as needed. 05/31/2022: No changes to current plan. Did have medication restraint today. 06/01: no change to plan. irritable, delusional. 06/02: no change in plan or presentation. 06/03: bizarre delusions. destroyed and threw away peer's art project. misogynistic comments. 06/04: irritable, verbally aggressive, refusing PO meds and getting IMs instead. 06/05: less verbally aggressive and irritable. took PO meds this morning rather than receive IMs. 06/07 no changes to tx plan 06/08: taking IMs all weekend. less aggressive and irritable, still disorganized and delusional. 06/09: PO meds this morning. defecated in shower and engaging in feces play yesterday. poor sleep. presentation essentially unchanged from yesterday. 06/10: stable presentation. loud, droning, disorganized, incoherent. taking meds PO. continue current mgmt. 06/11: stable presentation. loud, droning, disorganized, incoherent. taking meds PO. continue current mgmt. 06/12: stable presentation. loud, droning, disorganized, incoherent. taking meds PO. continue current mgmt. 06/13: Pt refused PO meds on evening of 06/12, received IMs. no changes to tx. disorganized, psychotic. 06/14: adherent with PO meds, some inappropriate comments 06/15: off Q5 min checks, adherent with PO meds 06/16: Check lithium level patient irritable dysphoric easily agitated question med compliance question whether patient is responding to olanzapine. 06/17: no change in presentation. 06/18: no change in presentation. lithium 0.54. 06/19: continue current mgmt. per staff, taking meds with less resistance, brighter, less labile, less aggressive. informed peer he hears very loud voices and that is why he speaks so loudly and to pardon him. 06/20 Continue tx plan. 06/21 Continue tx plan. 06/22 Continue current tx plan. 06/23: no change in presentation. continue current mgmt. 06/24: no change in presentation. continue current mgmt. 06/25: agitation today on being presented with court orders, per his request. denies he has mental illness, gets angry, and verbally abuses MD. increase lithium dosing. 06/26: pt clearly angry with MD, citing information from court order. appears somewhat edematous in the face today, will follow (lithium dosing increased last night). 06/27 continue tx. 06/28 continue tx. 06/29: no change in mgmt. 06/30: no change in presentation, no change in mgmt. 07/01: continue current mgmt. slept 6 hours overnight. otherwise remains bizarre. 07/02: check lithium level. T/C adding tegretol to regimen as pt has had inadequate progress on current regimen. Reason for contiued inpatient stay Substantial Risk for: harm to self, harm to others, inability to function and rapid decompensation Time Spent With Patient Time: Total time managing care of this patient today __20__ minutes.
[2022-07-02 21:16] LABS: Lithium 0.55 mmol/L (0.60-1.20)
[2022-07-02 21:23] LABS: Alanine Aminotransferase 27 U/L (0-40); Albumin Level 4.2 g/dL (3.5-5.0); Alkaline Phosphatase 54 U/L (39-117); Anion Gap 12 (12-20); Aspartate Amino Transferase 20 U/L (5-37); Bilirubin Direct 0.2 mg/dL (0.0-0.5); Bilirubin Total 0.5 mg/dL (0.0-1.0); Blood Urea Nitrogen 16 mg/dL (9-16); Calcium 9.3 mg/dL (8.4-10.2); Carbon Dioxide 24 mmol/L (22-29); Chloride 106 mmol/L (96-108); Creatinine Clr Calc Pharmacy 135.6; Estimated Glomerular Filt Rate > 60; Glucose Random 104 mg/dL (60-115); Potassium 4.2 mmol/L (3.3-5.1); Sodium 138 mmol/L (135-145); Total Protein 6.9 g/dL (6.5-8.0)
[2022-07-02] MEDS: Lithium Carbonate ER 450 MG TABLET.ER 900 MG PO (22:11)
[2022-07-02 22:15] VITALS: BP 113/59; PULSE 80; RESP 16; TEMP 36.6; O2SAT 98
[2022-07-03 07:57] VITALS: BP 117/71; PULSE 80; RESP 18; TEMP 36.8; O2SAT 95
[2022-07-03] MEDS: OLANZapine ODT 10 MG TAB.RAPDIS 20 MG TRANSLINGU ×2 (07:59→22:21)
[2022-07-03] MEDS: Lithium Carbonate ER 300 MG TABLET.ER 600 MG PO (07:59)
--- NOTE | 2022-07-03 12:47 | HO.PSYCHPN ---
Subjective Subjective Date of Service: 07/03/22 Reason For Visit: AH, delusional Interim History: calm, cooperative. no complaints or requests aside from asking why he is prescribed so much lithium at bedtime. explains serum monitoring and that his level does not seem to be increasing despite escalating doses. he denies any knowledge of why that might be. investigating possibility of liquid lithium with pharmacy. per staff, getting a little better. thought-blocking, playing cards, doing word searches, anxious re getting out of hospital. slept about 5-6 hours overnight. Mental Status Exam Mental Status Exam Narrative: up and about the unit, appears adequately groomed. cooperative. no PMA/PMR. thoughts linear in brief interaction, speech droning and loud. affect constricted, hypo-intense, non-labile. mood unknown. no SI/HI/AVH expressed. Diagnostics Vital Signs (24Hr): Vital Signs - 24 hr 07/02/22 22:15 07/03/22 07:57 Temperature 97.8 F 98.2 F Pulse Rate 80 80 Respiratory Rate 16 18 Blood Pressure 113/59 L 117/71 Pulse Oximetry 98 95 Oxygen Delivery Method Room Air Room Air BMI result Body Mass Index 25.2 Labs 05/07/22 13:16 07/02/22 20:56 Labs: Laboratory Results - last 48 hr 07/02/22 07/02/22 20:56 20:56 Sodium 138 Potassium 4.2 Chloride 106 Carbon Dioxide 24 Anion Gap 12 BUN 16 Creatinine 0.79 Estim Creat Clear Calc 135.6 Estimated GFR > 60 Random Glucose 104 Calcium 9.3 Total Bilirubin 0.5 Direct Bilirubin 0.2 AST 20 ALT 27 Alkaline Phosphatase 54 Total Protein 6.9 Albumin 4.2 [place] 0.55 L Medications Medications Current Medications Acetaminophen (Acetaminophen 325 Mg Tablet) 650 mg PO Q6H PRN PRN Reason: Headache/Pain Mild Scale (1-3) Al Hydroxide/Mg Hydroxide (Magnesium Hydrox/Alum Hydrox 30 Ml Oral.Susp) 30 ml PO Q6H PRN PRN Reason: Heartburn/Nausea Haloperidol (Haloperidol 5 Mg Tablet) 5 mg PO QID PRN PRN Reason: psychosis, agitati [place] Carbonate ([place] Carbonate Er 300 Mg Tablet.Er) 600 mg PO DAILY [facility] Last Admin: 07/03/22 07:59 Dose: 600 mg [place] Carbonate ([place] Carbonate Er 450 Mg Tablet.Er) 900 mg PO BEDTIME ANJUM Last Admin: 07/02/22 22:11 Dose: 900 mg Magnesium Hydroxide (Milk Of Magnesia 30 Ml Oral.Susp) 30 ml PO DAILY PRN PRN Reason: Constipation Olanzapine (Olanzapine 10 Mg Vial) 10 mg IM BID PRN PRN Reason: refusal of PO zyprexa, per debra Last Admin: 06/12/22 22:55 Dose: 10 mg Olanzapine (Olanzapine Odt 10 Mg Tab.Rapdis) 20 mg TRANSLINGU BEDTIME ANJUM Last Admin: 07/02/22 22:11 Dose: 20 mg Olanzapine (Olanzapine Odt 10 Mg Tab.Rapdis) 20 mg TRANSLINGU DAILY ANJUM Last Admin: 07/03/22 07:59 Dose: 20 mg Psyllium Hydrophilic Mucilloid (Psyllium Seed 3.4 Gm Powd.Pack) 3.4 gm PO BID [facility] Last Admin: 07/03/22 07:59 Dose: 3.4 gm Trazodone HCl (Trazodone Hcl 50 Mg Tablet) 50 mg PO BEDTIME PRN PRN Reason: Insomnia Last Admin: 05/27/22 20:11 Dose: 50 mg Allergies Allergies Allergy/AdvReac Type Severity Reaction Status Date / Time bupropion [From Wellbutrin] Allergy Mild CAUSES Unverified 03/07/20 15:04 SWOLLEN HEAD tetracycline [Tetracycline] Allergy Mild UNKNOWN Unverified 03/07/20 15:04 trifluoperazine Allergy Mild UNKNOWN Unverified 03/07/20 15:04 [From Stelazine] clozapine [From Clozaril] AdvReac Mild SEIZURES,NE Unverified 03/07/20 15:04 UTROPENIA Assessment & Plan Assessment & Plan (1) Schizoaffective disorder, bipolar type: Status: Acute Code(s): F25.0 - Schizoaffective disorder, bipolar type Plan Eriberto is a 56 y.o. male with a past medical history of schizoaffective disorder, bipolar type. He presented to [facility] on 05/07/22 due to grandiose, paranoid delusional thought content, command AH. Per pt?s gf, he had been doing well until 05/02/22, however began responding to internal stimuli and on 05/06/22 he emptied his medications down the garbage disposal. Hx of IPLOC on section 8 at [facility] in September- November 2021. Stabilized on lithium and olanzapine. Plan: Pt signed a CV, however does not appear to understand the conditional voluntary form and felt forced into doing this, states he is actually involuntary for the admission, will reject the CV. Will continue lithium 600 mg BID and olanzapine 30 mg HS, however pt says he intends to refuse. Li level 0.53 on admission. 05/08: Continue to offer meds, pt is intrusive, bizarre, makes vague statements about harming himself or others if forced to take meds, on 5 min checks 05/09: Refused to meet, declining medication 05/10: Refuses meds, not engaging in tx 05/11: Refuses meds, not engaging in tx. Pt is now a section VII. Will change olanzapine to ODT to promote adherence. 05/13: took meds last night. irritable, labile. reporting AH. 05/14 continue tx. 05/15: not consistently taking medication. hypersexual, bizarre. threatened to stab staff with scissors (which he had in his hand) and was not cooperative in returning razor to staff after shaving. 05/16 not taking meds, sect 7 continues offering meds. 05/17 continue tx. not taking meds ,pending court. 05/18: refusing meds. exposing his genitalia in the skelton, licking the floor, throwing urine-soaked playing cards at staff. 05/19: refusing meds. ripped crowns off teeth and threw them away; smearing food on self and door; leaving urine footprints in the skelton, smelling and dripping of the stuff. given medication restraint of zyprexa 10 and benadryl 50 IM after throwing hot soup in the milieu with peers in the area. 05/20: no change in presentation. refusing medications, denies he has mental illness. 05/21: sedated from having taken zyprexa 30 PO mg this morning. pushed staff in order to access kitchen last night, got zyprexa and benadryl IM after. 05/22: periods of agitation. defecated in shower. pacing, trying exits. continue current mgmt. 05/23: pt refusing meds, night prior he was disruptive on unit i.e. tearing up board games, intrusive towards peers 05/24: no med changes, refusing meds 05/25: refusing meds. court . wednesday was storing feces wrapped in paper towels on his shelving to save the universe. incontinent of urine in the milieu, slow to change/wash. 05/26: took zyprexa yesterday morning, refusing lithium. irritable. you are all lesbians trying to take over the world. 05/27: refusing meds. hearing tomorrow. to staff trying to administer meds: shove it up your ass! to female staff attempting to provide care: get out, bitch. you're a dog. get on your knees. [email or web address] declined mtg with TERA. 05/28: taking food from others' trays and throwing it away, masturbating in milieu, calling female staff bitch, ripped up checks sheet from off of NA's clipboard, urinating on floor, pouring bottle of water onto floor. committed and ordered medication. 05/29 continue tx, back up IM per court order. 05/30/2022: Has only received olanzapine for the last 1-2 days, therefore unable to clearly evaluate efficacy. Given intensity of behaviors and interactions and psychosis, Will add olanzapine in the morning time i.e. 10 mg morning and 30 mg at bedtime with 10 mg IM backup morning and bedtime. Haldol as needed. 05/31/2022: No changes to current plan. Did have medication restraint today. 06/01: no change to plan. irritable, delusional. 06/02: no change in plan or presentation. 06/03: bizarre delusions. destroyed and threw away peer's art project. misogynistic comments. 06/04: irritable, verbally aggressive, refusing PO meds and getting IMs instead. 06/05: less verbally aggressive and irritable. took PO meds this morning rather than receive IMs. 06/07 no changes to tx plan 06/08: taking IMs all weekend. less aggressive and irritable, still disorganized and delusional. 06/09: PO meds this morning. defecated in shower and engaging in feces play yesterday. poor sleep. presentation essentially unchanged from yesterday. 06/10: stable presentation. loud, droning, disorganized, incoherent. taking meds PO. continue current mgmt. 06/11: stable presentation. loud, droning, disorganized, incoherent. taking meds PO. continue current mgmt. 06/12: stable presentation. loud, droning, disorganized, incoherent. taking meds PO. continue current mgmt. 06/13: Pt refused PO meds on evening of 06/12, received IMs. no changes to tx. disorganized, psychotic. 06/14: adherent with PO meds, some inappropriate comments 06/15: off Q5 min checks, adherent with PO meds 06/16: Check lithium level patient irritable dysphoric easily agitated question med compliance question whether patient is responding to olanzapine. 06/17: no change in presentation. 06/18: no change in presentation. lithium 0.54. 06/19: continue current mgmt. per staff, taking meds with less resistance, brighter, less labile, less aggressive. informed peer he hears very loud voices and that is why he speaks so loudly and to pardon him. 06/20 Continue tx plan. 06/21 Continue tx plan. 06/22 Continue current tx plan. 06/23: no change in presentation. continue current mgmt. 06/24: no change in presentation. continue current mgmt. 06/25: agitation today on being presented with court orders, per his request. denies he has mental illness, gets angry, and verbally abuses MD. increase lithium dosing. 06/26: pt clearly angry with MD, citing information from court order. appears somewhat edematous in the face today, will follow (lithium dosing increased last night). 06/27 continue tx. 06/28 continue tx. 06/29: no change in mgmt. 06/30: no change in presentation, no change in mgmt. 07/01: continue current mgmt. slept 6 hours overnight. otherwise remains bizarre. 07/02: check lithium level. T/C adding tegretol to regimen as pt has had inadequate progress on current regimen. 07/03: lithium level remains around 0.55 despite increase in dosing. investigating use of liquid formulation with pharmacy. if liquid available will change to liquid 600 BID and check level again. if we are unable to improve clinical state with liquid lithium will add tegretol to regimen. Reason for contiued inpatient stay Substantial Risk for: harm to self, harm to others, inability to function and rapid decompensation Time Spent With Patient Time: Total time managing care of this patient today __25__ minutes.
[2022-07-03] MEDS: Lithium Carbonate ER 450 MG TABLET.ER 900 MG PO (22:21)
[2022-07-03 22:25] VITALS: BP 122/65; PULSE 81; TEMP 36.7; O2SAT 96
[2022-07-04 09:36] VITALS: BP 118/57; PULSE 78; RESP 20; TEMP 36.7; O2SAT 94
[2022-07-04] MEDS: OLANZapine ODT 10 MG TAB.RAPDIS 20 MG TRANSLINGU ×2 (09:37→21:57)
[2022-07-04] MEDS: Lithium Carbonate ER 300 MG TABLET.ER 600 MG PO (09:37)
--- NOTE | 2022-07-04 18:13 | P.PNPSI_ITS ---
Subjective Subjective Date of Service: 07/04/22 Reason For Visit: AH, delusional Interim History: chart reviewed. Met with nursing. Met with patient. Overall medication adherent as per Shetty order. More interactive with peers. Still guarded around symptoms. Continues to report being a special human being and having unique Vincent in being able to see things that other people cannot. Unable to elaborate on same. 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 Feels that he is getting better due to eating more healthy and slowly getting rid of past thoughts. Did not want to elaborate on same. Regarding medications does not like them and wants to discussed with his team changes. Unable to clearly elaborate what he does not like about medications. Denied depression SI or HI. Denies hallucinations and any overt paranoia. Medication Compliance: Yes ( as per Diogenes) Side effects from medications: No Attending Groups: Intermittent Review of Systems Acute medical concerns: No Review of Systems Review of Systems Yes all other systems are reviewed and are negative Mental Status Exam Mental Status Exam Narrative: was seen in room. Appropriately dressed and better hygiene. Or engaged. No overt agitation noted. Is loosened thought form at times. Denied depression. Denied SI or HI. Denies hallucinations. No overt paranoia. Insight and judgment still appears limited Diagnostics Vital Signs (24Hr): Vital Signs - 24 hr 07/03/22 22:25 07/04/22 09:36 Temperature 98.1 F 98.0 F Pulse Rate 81 78 Respiratory Rate 20 Blood Pressure 122/65 118/57 L Pulse Oximetry 96 94 Oxygen Delivery Method Room Air Room Air BMI result Body Mass Index 25.2 Labs 05/07/22 13:16 07/02/22 20:56 Labs: Laboratory Results - last 48 hr 07/02/22 07/02/22 20:56 20:56 Sodium 138 Potassium 4.2 Chloride 106 Carbon Dioxide 24 Anion Gap 12 BUN 16 Creatinine 0.79 Estim Creat Clear Calc 135.6 Estimated GFR > 60 Random Glucose 104 Calcium 9.3 Total Bilirubin 0.5 Direct Bilirubin 0.2 AST 20 ALT 27 Alkaline Phosphatase 54 Total Protein 6.9 Albumin 4.2 [place] 0.55 L Medications Medications Current Medications Acetaminophen (Acetaminophen 325 Mg Tablet) 650 mg PO Q6H PRN PRN Reason: Headache/Pain Mild Scale (1-3) Al Hydroxide/Mg Hydroxide (Magnesium Hydrox/Alum Hydrox 30 Ml Oral.Susp) 30 ml PO Q6H PRN PRN Reason: Heartburn/Nausea Haloperidol (Haloperidol 5 Mg Tablet) 5 mg PO QID PRN PRN Reason: psychosis, agitati [place] Carbonate ([place] Carbonate Er 300 Mg Tablet.Er) 600 mg PO DAILY [facility] Last Admin: 07/04/22 09:37 Dose: 600 mg [place] Carbonate ([place] Carbonate Er 450 Mg Tablet.Er) 900 mg PO BEDTIME ANJUM Last Admin: 07/03/22 22:21 Dose: 900 mg Magnesium Hydroxide (Milk Of Magnesia 30 Ml Oral.Susp) 30 ml PO DAILY PRN PRN Reason: Constipation Olanzapine (Olanzapine 10 Mg Vial) 10 mg IM BID PRN PRN Reason: refusal of PO zyprexa, per debra Last Admin: 06/12/22 22:55 Dose: 10 mg Olanzapine (Olanzapine Odt 10 Mg Tab.Rapdis) 20 mg TRANSLINGU BEDTIME ANJUM Last Admin: 07/03/22 22:21 Dose: 20 mg Olanzapine (Olanzapine Odt 10 Mg Tab.Rapdis) 20 mg TRANSLINGU DAILY [facility] Last Admin: 07/04/22 09:37 Dose: 20 mg Psyllium Hydrophilic Mucilloid (Psyllium Seed 3.4 Gm Powd.Pack) 3.4 gm PO BID [facility] Last Admin: 07/04/22 09:37 Dose: 3.4 gm Trazodone HCl (Trazodone Hcl 50 Mg Tablet) 50 mg PO BEDTIME PRN PRN Reason: Insomnia Last Admin: 05/27/22 20:11 Dose: 50 mg Allergies Allergies Allergy/AdvReac Type Severity Reaction Status Date / Time bupropion [From Wellbutrin] Allergy Mild CAUSES Unverified 03/07/20 15:04 SWOLLEN HEAD tetracycline [Tetracycline] Allergy Mild UNKNOWN Unverified 03/07/20 15:04 trifluoperazine Allergy Mild UNKNOWN Unverified 03/07/20 15:04 [From Stelazine] clozapine [From Clozaril] AdvReac Mild SEIZURES,NE Unverified 03/07/20 15:04 UTROPENIA Assessment & Plan Assessment & Plan (1) Schizoaffective disorder, bipolar type: Status: Acute Code(s): F25.0 - Schizoaffective disorder, bipolar type Josr Wei is a 56 y.o. male with a past medical history of schizoaffective disorder, bipolar type. He presented to [facility] on 05/07/22 due to grandiose, paranoid delusional thought content, command AH. Per pt?s gf, he had been doing well until 05/02/22, however began responding to internal stimuli and on 05/06/22 he emptied his medications down the garbage disposal. Hx of IPLOC on section 8 at [facility] in September- November 2021. Stabilized on lithium and olanzapine. Plan: Pt signed a CV, however does not appear to understand the conditional voluntary form and felt forced into doing this, states he is actually involuntary for the admission, will reject the CV. Will continue lithium 600 mg BID and olanzapine 30 mg HS, however pt says he intends to refuse. Li level 0.53 on admission. 05/08: Continue to offer meds, pt is intrusive, bizarre, makes vague statements about harming himself or others if forced to take meds, on 5 min checks 05/09: Refused to meet, declining medication 05/10: Refuses meds, not engaging in tx 05/11: Refuses meds, not engaging in tx. Pt is now a section VII. Will change olanzapine to ODT to promote adherence. 05/13: took meds last night. irritable, labile. reporting AH. 05/14 continue tx. 05/15: not consistently taking medication. hypersexual, bizarre. threatened to stab staff with scissors (which he had in his hand) and was not cooperative in returning razor to staff after shaving. 05/16 not taking meds, sect 7 continues offering meds. 05/17 continue tx. not taking meds ,pending court. 05/18: refusing meds. exposing his genitalia in the skel[place], licking the floor, throwing urine-soaked playing cards at staff. 05/19: refusing meds. ripped crowns off teeth and threw them away; smearing food on self and door; leaving urine footprints in the [place]el[place], smelling and dripping of the stuff. given medication restraint of zyprexa 10 and benadryl 50 IM after throwing hot soup in the milieu with peers in the area. 05/20: no change in presentation. refusing medications, denies he has mental illness. 05/21: sedated from having taken zyprexa 30 PO mg this morning. pushed staff in order to access kitchen last night, got zyprexa and benadryl IM after. 05/22: periods of agitation. defecated in shower. pacing, trying exits. continue current mgmt. 05/23: pt refusing meds, night prior he was disruptive on unit i.e. tearing up board games, intrusive towards peers 05/24: no med changes, refusing meds 05/25: refusing meds. court . wednesday was storing feces wrapped in paper towels on his shelving to save the universe. incontinent of urine in the milieu, slow to change/wash. 05/26: took zyprexa yesterday morning, refusing lithium. irritable. you are all lesbians trying to take over the world. 05/27: refusing meds. hearing tomorrow. to staff trying to administer meds: shove it up your ass! to female staff attempting to provide care: get out, bitch. you're a dog. get on your knees. [email or web address] declined mtg with TERA. 05/28: taking food from others' trays and throwing it away, masturbating in milieu, calling female staff bitch, ripped up checks sheet from off of [employer]'s clipboard, urinating on floor, pouring bottle of water onto floor. committed and ordered medication. 05/29 continue tx, back up IM per court order. 05/30/2022: Has only received olanzapine for the last 1-2 days, therefore unable to clearly evaluate efficacy. Given intensity of behaviors and interactions and psychosis, Will add olanzapine in the morning time i.e. 10 mg morning and 30 mg at bedtime with 10 mg IM backup morning and bedtime. Haldol as needed. 05/31/2022: No changes to current plan. Did have medication restraint today. 06/01: no change to plan. irritable, delusional. 06/02: no change in plan or presentation. 06/03: bizarre delusions. destroyed and threw away peer's art project. misogynistic comments. 06/04: irritable, verbally aggressive, refusing PO meds and getting IMs instead. 06/05: less verbally aggressive and irritable. took PO meds this morning rather than receive IMs. 06/07 no changes to tx plan 06/08: taking IMs all weekend. less aggressive and irritable, still disorganiz ed and delusional. 06/09: PO meds this morning. defecated in shower and engaging in feces play yesterday. poor sleep. presentation essentially unchanged from yesterday. 06/10: stable presentation. loud, droning, disorganized, incoherent. taking meds PO. continue current mgmt. 06/11: stable presentation. loud, droning, disorganized, incoherent. taking meds PO. continue current mgmt. 06/12: stable presentation. loud, droning, disorganized, incoherent. taking meds PO. continue current mgmt. 06/13: Pt refused PO meds on evening of 06/12, received IMs. no changes to tx. disorganized, psychotic. 06/14: adherent with PO meds, some inappropriate comments 06/15: off Q5 min checks, adherent with PO meds 06/16: Check lithium level patient irritable dysphoric easily agitated question med compliance question whether patient is responding to olanzapine. 06/17: no change in presentation. 06/18: no change in presentation. lithium 0.54. 06/19: continue current mgmt. per staff, taking meds with less resistance, brighter, less labile, less aggressive. informed peer he hears very loud v oices and that is why he speaks so loudly and to pardon him. 06/20 Continue tx plan. 06/21 Continue tx plan. 06/22 Continue current tx plan. 06/23: no change in presentation. continue current mgmt. 06/24: no change in presentation. continue current mgmt. 06/25: agitation today on being presented with court orders, per his request. denies he has mental illness, gets angry, and verbally abuses MD. increase lithium dosing. 06/26: pt clearly angry with MD, citing information from court order. appears leonidas ewhat edematous in the face today, will follow (lithium dosing increased last night). 06/27 continue tx. 06/28 continue tx. 06/29: no change in mgmt. 06/30: no change in presentation, no change in mgmt. 07/01: continue current mgmt. slept 6 hours overnight. otherwise remains bizarre. 07/02: check lithium level. T/C adding tegretol to regimen as pt has had inadequate progress on current regimen. 07/03: lithium level remains around 0.55 despite increase in dosing. investigating use of liquid formulation with pharmacy. if liquid available will change to liquid 600 BID and check level again. if we are unable to improve clinical state with liquid lithium will add tegretol to regimen. 07/04/2022: No changes to current treatment plan. Reason for contiued inpatient stay Substantial Risk for: harm to others, inability to function and rapid decompensation Time Spent With Patient Time: Total time managing care of this patient today ____ minutes.
[2022-07-04] MEDS: Lithium Carbonate ER 450 MG TABLET.ER 900 MG PO (21:56)
[2022-07-04 22:00] VITALS: BP 132/76; PULSE 80; TEMP 36.8; O2SAT 95
[2022-07-05 08:31] VITALS: BP 133/68; PULSE 82; RESP 20; TEMP 36.6; O2SAT 96
[2022-07-05] MEDS: Lithium Carbonate ER 300 MG TABLET.ER 600 MG PO (09:38)
[2022-07-05] MEDS: OLANZapine ODT 10 MG TAB.RAPDIS 20 MG TRANSLINGU ×2 (09:38→21:47)
--- NOTE | 2022-07-05 12:24 | HO.PSYCHPN ---
Subjective Subjective Date of Service: 07/05/22 Reason For Visit: AH, delusional Interim History: Chart reviewed. Met with nursing. Met with patient. Overall medication adherent as per Shetty order- objects when taking meds but takes same. More interactive with peers and observed coloring in and enjoying same. Guarded around symptoms with typewriter aligner but reports he has been getting by okay. Regarding medications does not like them and wants to discussed changes with his team. Unable to clearly elaborate what he does not like about medications. Denied depression SI or HI. Denies hallucinations and any overt paranoia. Medication Compliance: Yes (per trinidad) Side effects from medications: No Attending Groups: Intermittent Review of Systems Acute medical concerns: No Review of Systems Review of Systems Yes all other systems are reviewed and are negative Mental Status Exam Mental Status Exam Narrative: was seen in day area. Appropriately dressed and better hygiene. Or engaged. No overt agitation noted. Is loosened thought form at times. Denied depression. Denied SI or HI. Denies hallucinations. No overt paranoia. Insight and judgment still appears limited Diagnostics Vital Signs (24Hr): Vital Signs - 24 hr 07/04/22 22:00 07/05/22 08:31 Temperature 98.3 F 97.9 F Pulse Rate 80 82 Respiratory Rate 20 Blood Pressure 132/76 133/68 Pulse Oximetry 95 96 Oxygen Delivery Method Room Air Room Air BMI result Body Mass Index 25.2 Labs 05/07/22 13:16 07/02/22 20:56 Medications Medications Current Medications Acetaminophen (Acetaminophen 325 Mg Tablet) 650 mg PO Q6H PRN PRN Reason: Headache/Pain Mild Scale (1-3) Al Hydroxide/Mg Hydroxide (Magnesium Hydrox/Alum Hydrox 30 Ml Oral.Susp) 30 ml PO Q6H PRN PRN Reason: Heartburn/Nausea Haloperidol (Haloperidol 5 Mg Tablet) 5 mg PO QID PRN PRN Reason: psychosis, agitati [place] Carbonate (Betances Carbonate Er 300 Mg Tablet.Er) 600 mg PO DAILY [facility] Last Admin: 07/05/22 09:38 Dose: 600 mg [place] Carbonate (Betances Carbonate Er 450 Mg Tablet.Er) 900 mg PO BEDTIME [facility] Last Admin: 07/04/22 21:56 Dose: 900 mg Magnesium Hydroxide (Milk Of Magnesia 30 Ml Oral.Susp) 30 ml PO DAILY PRN PRN Reason: Constipation Olanzapine (Olanzapine 10 Mg Vial) 10 mg IM BID PRN PRN Reason: refusal of PO zyprexa, per debra Last Admin: 06/12/22 22:55 Dose: 10 mg Olanzapine (Olanzapine Odt 10 Mg Tab.Rapdis) 20 mg TRANSLINGU BEDTIME [facility] Last Admin: 07/04/22 21:57 Dose: 20 mg Olanzapine (Olanzapine Odt 10 Mg Tab.Rapdis) 20 mg TRANSLINGU DAILY [facility] Last Admin: 07/05/22 09:38 Dose: 20 mg Psyllium Hydrophilic Mucilloid (Psyllium Seed 3.4 Gm Powd.Pack) 3.4 gm PO BID [facility] Last Admin: 07/05/22 09:38 Dose: 3.4 gm Trazodone HCl (Trazodone Hcl 50 Mg Tablet) 50 mg PO BEDTIME PRN PRN Reason: Insomnia Last Admin: 05/27/22 20:11 Dose: 50 mg Allergies Allergies Allergy/AdvReac Type Severity Reaction Status Date / Time bupropion [From Wellbutrin] Allergy Mild CAUSES Unverified 03/07/20 15:04 SWOLLEN HEAD tetracycline [Tetracycline] Allergy Mild UNKNOWN Unverified 03/07/20 15:04 trifluoperazine Allergy Mild UNKNOWN Unverified 03/07/20 15:04 [From Stelazine] clozapine [From Clozaril] AdvReac Mild SEIZURES,NE Unverified 03/07/20 15:04 UTROPENIA Assessment & Plan Assessment & Plan (1) Schizoaffective disorder, bipolar type: Status: Acute Code(s): F25.0 - Schizoaffective disorder, bipolar type Plan Eriberto is a 56 y.o. male with a past medical history of schizoaffective disorder, bipolar type. He presented to [facility] on 05/07/22 due to grandiose, paranoid delusional thought content, command AH. Per pt?s gf, he had been doing well until 05/02/22, however began responding to internal stimuli and on 05/06/22 he emptied his medications down the garbage disposal. Hx of IPLOC on section 8 at [facility] in September- November 2021. Stabilized on lithium and olanzapine. Plan: Pt signed a CV, however does not appear to understand the conditional voluntary form and felt forced into doing this, states he is actually involuntary for the admission, will reject the CV. Will continue lithium 600 mg BID and olanzapine 30 mg HS, however pt says he intends to refuse. Li level 0.53 on admission. 05/08: Continue to offer meds, pt is intrusive, bizarre, makes vague statements about harming himself or others if forced to take meds, on 5 min checks 05/09: Refused to meet, declining medication 05/10: Refuses meds, not engaging in tx 05/11: Refuses meds, not engaging in tx. Pt is now a section VII. Will change olanzapine to ODT to promote adherence. 05/13: took meds last night. irritable, labile. reporting AH. 05/14 continue tx. 05/15: not consistently taking medication. hypersexual, bizarre. threatened to stab staff with scissors (which he had in his hand) and was not cooperative in returning razor to staff after shaving. 05/16 not taking meds, sect 7 continues offering meds. 05/17 continue tx. not taking meds ,pending court. 05/18: refusing meds. exposing his genitalia in the skelton, licking the floor, throwing urine-soaked playing cards at staff. 05/19: refusing meds. ripped crowns off teeth and threw them away; smearing food on self and door; leaving urine footprints in the skelton, smelling and dripping of the stuff. given medication restraint of zyprexa 10 and benadryl 50 IM after throwing hot soup in the milieu with peers in the area. 05/20: no change in presentation. refusing medications, denies he has mental illness. 05/21: sedated from having taken zyprexa 30 PO mg this morning. pushed staff in order to access kitchen last night, got zyprexa and benadryl IM after. 05/22: periods of agitation. defecated in shower. pacing, trying exits. continue current mgmt. 05/23: pt refusing meds, night prior he was disruptive on unit i.e. tearing up board games, intrusive towards peers 05/24: no med changes, refusing meds 05/25: refusing meds. court . wednesday was storing feces wrapped in paper towels on his shelving to save the universe. incontinent of urine in the milieu, slow to change/wash. 05/26: took zyprexa yesterday morning, refusing lithium. irritable. you are all lesbians trying to take over the world. 05/27: refusing meds. hearing tomorrow. to staff trying to administer meds: shove it up your ass! to female staff attempting to provide care: get out, bitch. you're a dog. get on your knees. [id number] declined mtg with TERA. 05/28: taking food from others' trays and throwing it away, masturbating in milieu, calling female staff bitch, ripped up checks sheet from off of Savaree's clipboard, urinating on floor, pouring bottle of water onto floor. committed and ordered medication. 05/29 continue tx, back up IM per court order. 05/30/2022: Has only received olanzapine for the last 1-2 days, therefore unable to clearly evaluate efficacy. Given intensity of behaviors and interactions and psychosis, Will add olanzapine in the morning time i.e. 10 mg morning and 30 mg at bedtime with 10 mg IM backup morning and bedtime. Haldol as needed. 05/31/2022: No changes to current plan. Did have medication restraint today. 06/01: no change to plan. irritable, delusional. 06/02: no change in plan or presentation. 06/03: bizarre delusions. destroyed and threw away peer's art project. misogynistic comments. 06/04: irritable, verbally aggressive, refusing PO meds and getting IMs instead. 06/05: less verbally aggressive and irritable. took PO meds this morning rather than receive IMs. 06/07 no changes to tx plan 06/08: taking IMs all weekend. less aggressive and irritable, still disorganized and delusional. 06/09: PO meds this morning. defecated in shower and engaging in feces play yesterday. poor sleep. presentation essentially unchanged from yesterday. 06/10: stable presentation. loud, droning, disorganized, incoherent. taking meds PO. continue current mgmt. 06/11: stable presentation. loud, droning, disorganized, incoherent. taking meds PO. continue current mgmt. 06/12: stable presentation. loud, droning, disorganized, incoherent. taking meds PO. continue current mgmt. 06/13: Pt refused PO meds on evening of 06/12, received IMs. no changes to tx. disorganized, psychotic. 06/14: adherent with PO meds, some inappropriate comments 06/15: off Q5 min checks, adherent with PO meds 06/16: Check lithium level patient irritable dysphoric easily agitated question med compliance question whether patient is responding to olanzapine. 06/17: no change in presentation. 06/18: no change in presentation. lithium 0.54. 06/19: continue current mgmt. per staff, taking meds with less resistance, brighter, less labile, less aggressive. informed peer he hears very loud voices and that is why he speaks so loudly and to pardon him. 06/20 Continue tx plan. 06/21 Continue tx plan. 06/22 Continue current tx plan. 06/23: no change in presentation. continue current mgmt. 06/24: no change in presentation. continue current mgmt. 06/25: agitation today on being presented with court orders, per his request. denies he has mental illness, gets angry, and verbally abuses MD. increase lithium dosing. 06/26: pt clearly angry with MD, citing information from court order. appears somewhat edematous in the face today, will follow (lithium dosing increased last night). 06/27 continue tx. 06/28 continue tx. 06/29: no change in mgmt. 06/30: no change in presentation, no change in mgmt. 07/01: continue current mgmt. slept 6 hours overnight. otherwise remains bizarre. 07/02: check lithium level. T/C adding tegretol to regimen as pt has had inadequate progress on current regimen. 07/03: lithium level remains around 0.55 despite increase in dosing. investigating use of liquid formulation with pharmacy. if liquid available will change to liquid 600 BID and check level again. if we are unable to improve clinical state with liquid lithium will add tegretol to regimen. 07/04/2022: No changes to current treatment plan. Reason for contiued inpatient stay Substantial Risk for: rapid decompensation Time Spent With Patient Time: Total time managing care of this patient today ____ minutes.
[2022-07-05 20:15] VITALS: BP 141/76; PULSE 78; RESP 16; TEMP 36.7; O2SAT 97
[2022-07-05] MEDS: Lithium Carbonate ER 450 MG TABLET.ER 900 MG PO (21:47)
[2022-07-06] MEDS: Lithium Carbonate ER 300 MG TABLET.ER 600 MG PO (09:02)
[2022-07-06] MEDS: OLANZapine ODT 10 MG TAB.RAPDIS 20 MG TRANSLINGU ×2 (09:02→22:08)
[2022-07-06 09:30] VITALS: BP 134/73; PULSE 82; RESP 18; TEMP 36.7; O2SAT 97
--- NOTE | 2022-07-06 19:45 | HO.PSYCHPN ---
Subjective Subjective Date of Service: 07/06/22 Reason For Visit: AH, delusional Interim History: calm, cooperative. no change in presentation. per staff, guarded. taking medications without difficulty. limited insight. flat. less labile and reactive. slept except 2019-0734. Mental Status Exam Mental Status Exam Narrative: up and about the unit, appears adequately groomed. cooperative. no PMA/PMR. thoughts linear in brief interaction, speech droning and loud. affect constricted, hypo-intense, non-labile. mood unknown. no SI/HI/AVH expressed. Diagnostics Vital Signs (24Hr): Vital Signs - 24 hr 07/05/22 20:15 07/06/22 09:30 Temperature 98.1 F 98.1 F Pulse Rate 78 82 Respiratory Rate 16 18 Blood Pressure 141/76 H 134/73 Pulse Oximetry 97 97 Oxygen Delivery Method Room Air Room Air BMI result Body Mass Index 25.2 Labs 05/07/22 13:16 07/02/22 20:56 Medications Medications Current Medications Acetaminophen (Acetaminophen 325 Mg Tablet) 650 mg PO Q6H PRN PRN Reason: Headache/Pain Mild Scale (1-3) Al Hydroxide/Mg Hydroxide (Magnesium Hydrox/Alum Hydrox 30 Ml Oral.Susp) 30 ml PO Q6H PRN PRN Reason: Heartburn/Nausea Haloperidol (Haloperidol 5 Mg Tablet) 5 mg PO QID PRN PRN Reason: psychosis, agitati [place] Carbonate ([place] Carbonate Er 300 Mg Tablet.Er) 600 mg PO DAILY [facility] Last Admin: 07/06/22 09:02 Dose: 600 mg [place] Carbonate ([place] Carbonate Er 450 Mg Tablet.Er) 900 mg PO BEDTIME [facility] Last Admin: 07/05/22 21:47 Dose: 900 mg Magnesium Hydroxide (Milk Of Magnesia 30 Ml Oral.Susp) 30 ml PO DAILY PRN PRN Reason: Constipation Olanzapine (Olanzapine 10 Mg Vial) 10 mg IM BID PRN PRN Reason: refusal of PO zyprexa, per debra Last Admin: 06/12/22 22:55 Dose: 10 mg Olanzapine (Olanzapine Odt 10 Mg Tab.Rapdis) 20 mg TRANSLINGU BEDTIME [facility] Last Admin: 07/05/22 21:47 Dose: 20 mg Olanzapine (Olanzapine Odt 10 Mg Tab.Rapdis) 20 mg TRANSLINGU DAILY [facility] Last Admin: 07/06/22 09:02 Dose: 20 mg Psyllium Hydrophilic Mucilloid (Psyllium Seed 3.4 Gm Powd.Pack) 3.4 gm PO BID [facility] Last Admin: 07/06/22 09:02 Dose: 3.4 gm Trazodone HCl (Trazodone Hcl 50 Mg Tablet) 50 mg PO BEDTIME PRN PRN Reason: Insomnia Last Admin: 05/27/22 20:11 Dose: 50 mg Allergies Allergies Allergy/AdvReac Type Severity Reaction Status Date / Time bupropion [From Wellbutrin] Allergy Mild CAUSES Unverified 03/07/20 15:04 SWOLLEN HEAD tetracycline [Tetracycline] Allergy Mild UNKNOWN Unverified 03/07/20 15:04 trifluoperazine Allergy Mild UNKNOWN Unverified 03/07/20 15:04 [From Stelazine] clozapine [From Clozaril] AdvReac Mild SEIZURES,NE Unverified 03/07/20 15:04 UTROPENIA Assessment & Plan Assessment & Plan (1) Schizoaffective disorder, bipolar type: Status: Acute Code(s): F25.0 - Schizoaffective disorder, bipolar type Plan Eriberto is a 56 y.o. male with a past medical history of schizoaffective disorder, bipolar type. He presented to [facility] on 05/07/22 due to grandiose, paranoid delusional thought content, command AH. Per pt?s gf, he had been doing well until 05/02/22, however began responding to internal stimuli and on 05/06/22 he emptied his medications down the garbage disposal. Hx of IPLOC on section 8 at [facility] in September- November 2021. Stabilized on lithium and olanzapine. Plan: Pt signed a CV, however does not appear to understand the conditional voluntary form and felt forced into doing this, states he is actually involuntary for the admission, will reject the CV. Will continue lithium 600 mg BID and olanzapine 30 mg HS, however pt says he intends to refuse. Li level 0.53 on admission. 05/08: Continue to offer meds, pt is intrusive, bizarre, makes vague statements about harming himself or others if forced to take meds, on 5 min checks 05/09: Refused to meet, declining medication 05/10: Refuses meds, not engaging in tx 05/11: Refuses meds, not engaging in tx. Pt is now a section VII. Will change olanzapine to ODT to promote adherence. 05/13: took meds last night. irritable, labile. reporting AH. 05/14 continue tx. 05/15: not consistently taking medication. hypersexual, bizarre. threatened to stab staff with scissors (which he had in his hand) and was not cooperative in returning razor to staff after shaving. 05/16 not taking meds, sect 7 continues offering meds. 05/17 continue tx. not taking meds ,pending court. 05/18: refusing meds. exposing his genitalia in the skelton, licking the floor, throwing urine-soaked playing cards at staff. 05/19: refusing meds. ripped crowns off teeth and threw them away; smearing food on self and door; leaving urine footprints in the skelton, smelling and dripping of the stuff. given medication restraint of zyprexa 10 and benadryl 50 IM after throwing hot soup in the milieu with peers in the area. 05/20: no change in presentation. refusing medications, denies he has mental illness. 05/21: sedated from having taken zyprexa 30 PO mg this morning. pushed staff in order to access kitchen last night, got zyprexa and benadryl IM after. 05/22: periods of agitation. defecated in shower. pacing, trying exits. continue current mgmt. 05/23: pt refusing meds, night prior he was disruptive on unit i.e. tearing up board games, intrusive towards peers 05/24: no med changes, refusing meds 05/25: refusing meds. court . wednesday was storing feces wrapped in paper towels on his shelving to save the universe. incontinent of urine in the milieu, slow to change/wash. 05/26: took zyprexa yesterday morning, refusing lithium. irritable. you are all lesbians trying to take over the world. 05/27: refusing meds. hearing tomorrow. to staff trying to administer meds: shove it up your ass! to female staff attempting to provide care: get out, bitch. you're a dog. get on your knees. [id number] declined mtg with TERA. 05/28: taking food from others' trays and throwing it away, masturbating in milieu, calling female staff bitch, ripped up checks sheet from off of [employer]tek's clipboard, urinating on floor, pouring bottle of water onto floor. committed and ordered medication. 05/29 continue tx, back up IM per court order. 05/30/2022: Has only received olanzapine for the last 1-2 days, therefore unable to clearly evaluate efficacy. Given intensity of behaviors and interactions and psychosis, Will add olanzapine in the morning time i.e. 10 mg morning and 30 mg at bedtime with 10 mg IM backup morning and bedtime. Haldol as needed. 05/31/2022: No changes to current plan. Did have medication restraint today. 06/01: no change to plan. irritable, delusional. 06/02: no change in plan or presentation. 06/03: bizarre delusions. destroyed and threw away peer's art project. misogynistic comments. 06/04: irritable, verbally aggressive, refusing PO meds and getting IMs instead. 06/05: less verbally aggressive and irritable. took PO meds this morning rather than receive IMs. 06/07 no changes to tx plan 06/08: taking IMs all weekend. less aggressive and irritable, still disorganized and delusional. 06/09: PO meds this morning. defecated in shower and engaging in feces play yesterday. poor sleep. presentation essentially unchanged from yesterday. 06/10: stable presentation. loud, droning, disorganized, incoherent. taking meds PO. continue current mgmt. 06/11: stable presentation. loud, droning, disorganized, incoherent. taking meds PO. continue current mgmt. 06/12: stable presentation. loud, droning, disorganized, incoherent. taking meds PO. continue current mgmt. 06/13: Pt refused PO meds on evening of 06/12, received IMs. no changes to tx. disorganized, psychotic. 06/14: adherent with PO meds, some inappropriate comments 06/15: off Q5 min checks, adherent with PO meds 06/16: Check lithium level patient irritable dysphoric easily agitated question med compliance question whether patient is responding to olanzapine. 06/17: no change in presentation. 06/18: no change in presentation. lithium 0.54. 06/19: continue current mgmt. per staff, taking meds with less resistance, brighter, less labile, less aggressive. informed peer he hears very loud voices and that is why he speaks so loudly and to pardon him. 06/20 Continue tx plan. 06/21 Continue tx plan. 06/22 Continue current tx plan. 06/23: no change in presentation. continue current mgmt. 06/24: no change in presentation. continue current mgmt. 06/25: agitation today on being presented with court orders, per his request. denies he has mental illness, gets angry, and verbally abuses MD. increase lithium dosing. 06/26: pt clearly angry with MD, citing information from court order. appears somewhat edematous in the face today, will follow (lithium dosing increased last night). 06/27 continue tx. 06/28 continue tx. 06/29: no change in mgmt. 06/30: no change in presentation, no change in mgmt. 07/01: continue current mgmt. slept 6 hours overnight. otherwise remains bizarre. 07/02: check lithium level. T/C adding tegretol to regimen as pt has had inadequate progress on current regimen. 07/03: lithium level remains around 0.55 despite increase in dosing. investigating use of liquid formulation with pharmacy. if liquid available will change to liquid 600 BID and check level again. if we are unable to improve clinical state with liquid lithium will add tegretol to regimen. 07/04: No changes to current treatment plan. 07/06: added 1:1 for 30 minutes post-medication to reduce possibility of cheeking/regurgitation. per pharmacy, liquid lithium has been discontinued. tegretol remains an option. Reason for contiued inpatient stay Substantial Risk for: harm to self, harm to others, inability to function and med/psych decompensation Time Spent With Patient Time: Total time managing care of this patient today __20__ minutes.
[2022-07-06 20:15] VITALS: BP 136/77; PULSE 85; RESP 16; TEMP 36.6; O2SAT 90
[2022-07-06] MEDS: Lithium Carbonate ER 450 MG TABLET.ER 900 MG PO (22:10)
[2022-07-07 06:00] VITALS: BP 105/74; PULSE 87; RESP 18; TEMP 36.8; O2SAT 95
[2022-07-07] MEDS: OLANZapine ODT 10 MG TAB.RAPDIS 20 MG TRANSLINGU ×2 (09:17→21:03)
[2022-07-07] MEDS: Lithium Carbonate ER 300 MG TABLET.ER 600 MG PO (09:17)
--- NOTE | 2022-07-07 13:49 | P.PNPSI_ITS ---
Subjective Subjective Date of Service: 07/07/22 Reason For Visit: AH, delusional Interim History: somewhat more personable, no longer approaching MD in a tirade about MD's alleged lies which led to his commitment and forced medication. per staff, reporting voices from afar. talking of needing more protein in his diet. watching TV. attending groups. slept on/off throughout the night. Mental Status Exam Mental Status Exam Narrative: up and about the unit, appears adequately groomed. cooperative. no PMA/PMR. thoughts linear in brief interaction, speech droning and loud. affect constricted, hypo-intense, non-labile. mood unknown. no SI/HI/AVH expressed. Diagnostics Vital Signs (24Hr): Vital Signs - 24 hr 07/06/22 20:15 07/07/22 06:00 Temperature 97.9 F 98.3 F Pulse Rate 85 87 Respiratory Rate 16 18 Blood Pressure 136/77 105/74 Pulse Oximetry 90 L 95 Oxygen Delivery Method Room Air Room Air BMI result Body Mass Index 25.2 Labs 05/07/22 13:16 07/02/22 20:56 Medications Medications Current Medications Acetaminophen (Acetaminophen 325 Mg Tablet) 650 mg PO Q6H PRN PRN Reason: Headache/Pain Mild Scale (1-3) Al Hydroxide/Mg Hydroxide (Magnesium Hydrox/Alum Hydrox 30 Ml Oral.Susp) 30 ml PO Q6H PRN PRN Reason: Heartburn/Nausea Haloperidol (Haloperidol 5 Mg Tablet) 5 mg PO QID PRN PRN Reason: psychosis, agitati [place] Carbonate ([place] Carbonate Er 300 Mg Tablet.Er) 600 mg PO DAILY ON LICENSE OF [facility] Last Admin: 07/07/22 09:17 Dose: 600 mg [place] Carbonate ([place] Carbonate Er 450 Mg Tablet.Er) 900 mg PO BEDTIME ON LICENSE OF [facility] Last Admin: 07/06/22 22:10 Dose: 900 mg Magnesium Hydroxide (Milk Of Magnesia 30 Ml Oral.Susp) 30 ml PO DAILY PRN PRN Reason: Constipation Olanzapine (Olanzapine 10 Mg Vial) 10 mg IM BID PRN PRN Reason: refusal of PO zyprexa, per debra Last Admin: 06/12/22 22:55 Dose: 10 mg Olanzapine (Olanzapine Odt 10 Mg Tab.Rapdis) 20 mg TRANSLINGU BEDTIME ON LICENSE OF [facility] Last Admin: 07/06/22 22:08 Dose: 20 mg Olanzapine (Olanzapine Odt 10 Mg Tab.Rapdis) 20 mg TRANSLINGU DAILY ON LICENSE OF [facility] Last Admin: 07/07/22 09:17 Dose: 20 mg Psyllium Hydrophilic Mucilloid (Psyllium Seed 3.4 Gm Powd.Pack) 3.4 gm PO BID ON LICENSE OF [facility] Last Admin: 07/07/22 09:18 Dose: Not Given Trazodone HCl (Trazodone Hcl 50 Mg Tablet) 50 mg PO BEDTIME PRN PRN Reason: Insomnia Last Admin: 05/27/22 20:11 Dose: 50 mg Allergies Allergies Allergy/AdvReac Type Severity Reaction Status Date / Time bupropion [From Wellbutrin] Allergy Mild CAUSES Unverified 03/07/20 15:04 SWOLLEN HEAD tetracycline [Tetracycline] Allergy Mild UNKNOWN Unverified 03/07/20 15:04 trifluoperazine Allergy Mild UNKNOWN Unverified 03/07/20 15:04 [From Stelazine] clozapine [From Clozaril] AdvReac Mild SEIZURES,NE Unverified 03/07/20 15:04 UTROPENIA Assessment & Plan Assessment & Plan (1) Schizoaffective disorder, bipolar type: Status: Acute Code(s): F25.0 - Schizoaffective disorder, bipolar type Plan Eriberto is a 56 y.o. male with a past medical history of schizoaffective disorder, bipolar type. He presented to [facility] on 05/07/22 due to grandiose, paranoid delusional thought content, command AH. Per pt?s gf, he had been doing well until 05/02/22, however began responding to internal stimuli and on 05/06/22 he emptied his medications down the garbage disposal. Hx of IPLOC on section 8 at [facility] in September- November 2021. Stabilized on lithium and olanzapine. Plan: Pt signed a CV, however does not appear to understand the conditional voluntary form and felt forced into doing this, states he is actually involuntary for the admission, will reject the CV. Will continue lithium 600 mg BID and olanzapine 30 mg HS, however pt says he intends to refuse. Li level 0.53 on admission. 05/08: Continue to offer meds, pt is intrusive, bizarre, makes vague statements about harming himself or others if forced to take meds, on 5 min checks 05/09: Refused to meet, declining medication 05/10: Refuses meds, not engaging in tx 05/11: Refuses meds, not engaging in tx. Pt is now a section VII. Will change olanzapine to ODT to promote adherence. 05/13: took meds last night. irritable, labile. reporting AH. 05/14 continue tx. 05/15: not consistently taking medication. hypersexual, bizarre. threatened to stab staff with scissors (which he had in his hand) and was not cooperative in returning razor to staff after shaving. 05/16 not taking meds, sect 7 continues offering meds. 05/17 continue tx. not taking meds ,pending court. 05/18: refusing meds. exposing his genitalia in the skelton, licking the floor, throwing urine-soaked playing cards at staff. 05/19: refusing meds. ripped crowns off teeth and threw them away; smearing food on self and door; leaving urine footprints in the skelton, smelling and dripping of the stuff. given medication restraint of zyprexa 10 and benadryl 50 IM after throwing hot soup in the milieu with peers in the area. 05/20: no change in presentation. refusing medications, denies he has mental illness. 05/21: sedated from having taken zyprexa 30 PO mg this morning. pushed staff in order to access kitchen last night, got zyprexa and benadryl IM after. 2: periods of agitation. defecated in shower. pacing, trying exits. angelika nue current mgmt. 05/23: pt refusing meds, night prior he was disruptive on unit i.e. tearing up board games, intrusive towards peers 05/24: no med changes, refusing meds 05/25: refusing meds. court . wednesday was storing feces wrapped in paper towels on his shelving to save the universe. incontinent of urine in the milieu, slow to change/wash. 05/26: took zyprexa yesterday morning, refusing lithium. irritable. you are all lesbians trying to take over the world. 05/27: refusing meds. hearing tomorrow. to staff trying to administer meds: shove it up your ass! to female staff attempting to provide care: get out, bitch. you're a dog. get on your knees. [id number] declined mtg with TERA. 05/28: taking food from others' trays and throwing it away, masturbating in milieu, calling female staff bitch, ripped up checks sheet from off of NA's clipboard, urinating on floor, pouring bottle of water onto floor. committed and ordered medication. 05/29 continue tx, back up IM per court order. 05/30/2022: Has only received olanzapine for the last 1-2 days, therefore unable to clearly evaluate efficacy. Given intensity of behaviors and interactions and psychosis, Will add olanzapine in the morning time i.e. 10 mg morning and 30 mg at bedtime with 10 mg IM backup morning and bedtime. Haldol as needed. 05/31/2022: No changes to current plan. Did have medication restraint today. 06/01: no change to plan. irritable, delusional. 06/02: no change in plan or presentation. 06/03: bizarre delusions. destroyed and threw away [employer]'s art project. misogynistic comments. 06/04: irritable, verbally aggressive, refusing PO meds and getting IMs instead. 06/05: less verbally aggressive and irritable. took PO meds this morning rather than receive IMs. 06/07 no changes to tx plan 06/08: taking IMs all weekend. less aggressive and irritable, still disorganized and delusional. 06/09: PO meds this morning. defecated in shower and engaging in feces play yesterday. poor sleep. presentation essentially unchanged from yesterday. 06/10: stable presentation. loud, droning, disorganized, incoherent. taking meds PO. continue current mgmt. 06/11: stable presentation. loud, droning, disorganized, incoherent. taking meds PO. continue current mgmt. 06/12: stable presentation. loud, droning, disorganized, incoherent. taking meds PO. continue current mgmt. 06/13: Pt refused PO meds on evening of 06/12, received IMs. no changes to tx. disorganized, psychotic. 06/14: adherent with PO meds, some inappropriate comments 06/15: off Q5 min checks, adherent with PO meds 06/16: Check lithium level patient irritable dysphoric easily agitated question med compliance question whether patient is responding to olanzapine. 06/17: no change in presentation. 06/18: no change in presentation. lithium 0.54. 06/19: continue current mgmt. per staff, taking meds with less resistance, brighter, less labile, less aggressive. informed peer he hears very loud voices and that is why he speaks so loudly and to pardon him. 06/20 Continue tx plan. 06/21 Continue tx plan. 06/22 Continue current tx plan. 06/23: no change in presentation. continue current mgmt. 06/24: no change in presentation. continue current mgmt. 06/25: agitation today on being presented with court orders, per his request. denies he has mental illness, gets angry, and verbally abuses MD. increase lithium dosing. 06/26: pt clearly angry with MD, citing information from court order. appears somewhat edematous in the face today, will follow (lithium dosing increased last night). 06/27 continue tx. 06/28 continue tx. 06/29: no change in mgmt. 06/30: no change in presentation, no change in mgmt. 07/01: continue current mgmt. slept 6 hours overnight. otherwise remains bizarre. 07/02: check lithium level. T/C adding tegretol to regimen as pt has had inadequate progress on current regimen. 07/03: lithium level remains around 0.55 despite increase in dosing. investigating use of liquid formulation with pharmacy. if liquid available will change to liquid 600 BID and check level again. if we are unable to improve clinical state with liquid lithium will add tegretol to regimen. 07/04: No changes to current treatment plan. 07/06: added 1:1 for 30 minutes post-medication to reduce possibility of cheeking/regurgitation. per pharmacy, liquid lithium has been discontinued. tegretol remains an option. 07/07: no change in presentation or plan. observe after med administration for 5 days, check lithium level. Reason for contiued inpatient stay Substantial Risk for: harm to self, harm to others, inability to function and rapid decompensation Time Spent With Patient Time: Total time managing care of this patient today _20___ minutes.
[2022-07-07] MEDS: Lithium Carbonate ER 450 MG TABLET.ER 900 MG PO (21:03)
[2022-07-08] MEDS: Lithium Carbonate ER 300 MG TABLET.ER 600 MG PO (09:00)
[2022-07-08] MEDS: OLANZapine ODT 10 MG TAB.RAPDIS 20 MG TRANSLINGU ×2 (09:00→21:58)
[2022-07-08 09:12] VITALS: BP 122/71; PULSE 76; RESP 20; TEMP 36.6; O2SAT 97
--- NOTE | 2022-07-08 13:10 | HO.PSYCHPN ---
Subjective Subjective Date of Service: 07/08/22 Reason For Visit: AH, delusional Interim History: calm, cooperative. able to laugh and joke with MD and SW in the skelton. less angry/irritable toward MD than previously. per staff, plesant, visible, social. attending groups, eating, sleeping. endorsing AH. appeared to have slept through the night. Mental Status Exam Mental Status Exam Narrative: up and about the unit, appears adequately groomed. cooperative. no PMA/PMR. thoughts linear in brief interaction, speech droning and loud. affect full range and flexible, hypo-intense, non-labile. mood euthymic. no SI/HI/AVH expressed. Diagnostics Vital Signs (24Hr): Vital Signs - 24 hr 07/08/22 09:12 Temperature 97.9 F Pulse Rate 76 Respiratory Rate 20 Blood Pressure 122/71 Pulse Oximetry 97 Oxygen Delivery Method Room Air BMI result Body Mass Index 25.2 Labs 05/07/22 13:16 07/02/22 20:56 Medications Medications Current Medications Acetaminophen (Acetaminophen 325 Mg Tablet) 650 mg PO Q6H PRN PRN Reason: Headache/Pain Mild Scale (1-3) Al Hydroxide/Mg Hydroxide (Magnesium Hydrox/Alum Hydrox 30 Ml Oral.Susp) 30 ml PO Q6H PRN PRN Reason: Heartburn/Nausea Haloperidol (Haloperidol 5 Mg Tablet) 5 mg PO QID PRN PRN Reason: psychosis, agitati [place] Carbonate ([place] Carbonate Er 300 Mg Tablet.Er) 600 mg PO DAILY [facility] Last Admin: 07/08/22 09:00 Dose: 600 mg [place] Carbonate ([place] Carbonate Er 450 Mg Tablet.Er) 900 mg PO BEDTIME [facility] Last Admin: 07/07/22 21:03 Dose: 900 mg Magnesium Hydroxide (Milk Of Magnesia 30 Ml Oral.Susp) 30 ml PO DAILY PRN PRN Reason: Constipation Olanzapine (Olanzapine 10 Mg Vial) 10 mg IM BID PRN PRN Reason: refusal of PO zyprexa, per debra Last Admin: 06/12/22 22:55 Dose: 10 mg Olanzapine (Olanzapine Odt 10 Mg Tab.Rapdis) 20 mg TRANSLINGU BEDTIME [facility] Last Admin: 07/07/22 21:03 Dose: 20 mg Olanzapine (Olanzapine Odt 10 Mg Tab.Rapdis) 20 mg TRANSLINGU DAILY [facility] Last Admin: 07/08/22 09:00 Dose: 20 mg Psyllium Hydrophilic Mucilloid (Psyllium Seed 3.4 Gm Powd.Pack) 3.4 gm PO BID [facility] Last Admin: 07/08/22 09:00 Dose: Not Given Trazodone HCl (Trazodone Hcl 50 Mg Tablet) 50 mg PO BEDTIME PRN PRN Reason: Insomnia Last Admin: 05/27/22 20:11 Dose: 50 mg Allergies Allergies Allergy/AdvReac Type Severity Reaction Status Date / Time bupropion [From Wellbutrin] Allergy Mild CAUSES Unverified 03/07/20 15:04 SWOLLEN HEAD tetracycline [Tetracycline] Allergy Mild UNKNOWN Unverified 03/07/20 15:04 trifluoperazine Allergy Mild UNKNOWN Unverified 03/07/20 15:04 [From Stelazine] clozapine [From Clozaril] AdvReac Mild SEIZURES,NE Unverified 03/07/20 15:04 UTROPENIA Assessment & Plan Assessment & Plan (1) Schizoaffective disorder, bipolar type: Status: Acute Code(s): F25.0 - Schizoaffective disorder, bipolar type Plan Eriberto is a 56 y.o. male with a past medical history of schizoaffective disorder, bipolar type. He presented to [facility] on 05/07/22 due to grandiose, paranoid delusional thought content, command AH. Per pt?s gf, he had been doing well until 05/02/22, however began responding to internal stimuli and on 05/06/22 he emptied his medications down the garbage disposal. Hx of IPLOC on section 8 at [facility] M[facility] in September- November 2021. Stabilized on lithium and olanzapine. Plan: Pt signed a CV, however does not appear to understand the conditional voluntary form and felt forced into doing this, states he is actually involuntary for the admission, will reject the CV. Will continue lithium 600 mg BID and olanzapine 30 mg HS, however pt says he intends to refuse. Li level 0.53 on admission. 05/08: Continue to offer meds, pt is intrusive, bizarre, makes vague statements about harming himself or others if forced to take meds, on 5 min checks 05/09: Refused to meet, declining medication 05/10: Refuses meds, not engaging in tx 05/11: Refuses meds, not engaging in tx. Pt is now a section VII. Will change olanzapine to ODT to promote adherence. 05/13: took meds last night. irritable, labile. reporting AH. 05/14 continue tx. 05/15: not consistently taking medication. hypersexual, bizarre. threatened to stab staff with scissors (which he had in his hand) and was not cooperative in returning razor to staff after shaving. 05/16 not taking meds, sect 7 continues offering meds. 05/17 continue tx. not taking meds ,pending court. 05/18: refusing meds. exposing his genitalia in the [place]el[place], licking the floor, throwing urine-soaked playing cards at staff. 05/19: refusing meds. ripped crowns off teeth and threw them away; smearing food on self and door; leaving urine footprints in the skel[place], smelling and dripping of the stuff. given medication restraint of zyprexa 10 and benadryl 50 IM after throwing hot soup in the milieu with peers in the area. 05/20: no change in presentation. refusing medications, denies he has mental illness. 05/21: sedated from having taken zyprexa 30 PO mg this morning. pushed staff in order to access kitchen last night, got zyprexa and benadryl IM after. 05/22: periods of agitation. defecated in shower. pacing, trying exits. continue current mgmt. 05/23: pt refusing meds, night prior he was disruptive on unit i.e. tearing up board games, intrusive towards peers 05/24: no med changes, refusing meds 05/25: refusing meds. court . wednesday was storing feces wrapped in paper towels on his shelving to save the universe. incontinent of urine in the milieu, slow to change/wash. 05/26: took zyprexa yesterday morning, refusing lithium. irritable. you are all lesbians trying to take over the world. 05/27: refusing meds. hearing tomorrow. to staff trying to administer meds: shove it up your ass! to female staff attempting to provide care: get out, bitch. you're a dog. get on your knees. [id number] declined mtg with TERA. 05/28: taking food from others' trays and throwing it away, masturbating in milieu, calling female staff bitch, ripped up checks sheet from off of [employer]'s clipboard, urinating on floor, pouring bottle of water onto floor. committed and ordered medication. 05/29 continue tx, back up IM per court order. 05/30/2022: Has only received olanzapine for the last 1-2 days, therefore unable to clearly evaluate efficacy. Given intensity of behaviors and interactions and psychosis, Will add olanzapine in the morning time i.e. 10 mg morning and 30 mg at bedtime with 10 mg IM backup morning and bedtime. Haldol as needed. 05/31/2022: No changes to current plan. Did have medication restraint today. 06/01: no change to plan. irritable, delusional. 06/02: no change in plan or presentation. 06/03: bizarre delusions. destroyed and threw away peer's art project. misogynistic comments. 06/04: irritable, verbally aggressive, refusing PO meds and getting IMs instead. 06/05: less verbally aggressive and irritable. took PO meds this morning rather than receive IMs. 06/07 no changes to tx plan 06/08: taking IMs all weekend. less aggressive and irritable, still disorganized and delusional. 06/09: PO meds this morning. defecated in shower and engaging in feces play yesterday. poor sleep. presentation essentially unchanged from yesterday. 06/10: stable presentation. loud, droning, disorganized, incoherent. taking meds PO. continue current mgmt. 06/11: stable presentation. loud, droning, disorganized, incoherent. taking meds PO. continue current mgmt. 06/12: stable presentation. loud, droning, disorganized, incoherent. taking meds PO. continue current mgmt. 06/13: Pt refused PO meds on evening of 06/12, received IMs. no changes to tx. disorganized, psychotic. 06/14: adherent with PO meds, some inappropriate comments 06/15: off Q5 min checks, adherent with PO meds 06/16: Check lithium level patient irritable dysphoric easily agitated question med compliance question whether patient is responding to olanzapine. 06/17: no change in presentation. 06/18: no change in presentation. lithium 0.54. 06/19: continue current mgmt. per staff, taking meds with less resistance, brighter, less labile, less aggressive. informed peer he hears very loud voices and that is why he speaks so loudly and to pardon him. 06/20 Continue tx plan. 06/21 Continue tx plan. 06/22 Continue current tx plan. 06/23: no change in presentation. continue current mgmt. 06/24: no change in presentation. continue current mgmt. 06/25: agitation today on being presented with court orders, per his request. denies he has mental illness, gets angry, and verbally abuses MD. increase lithium dosing. 06/26: pt clearly angry with MD, citing information from court order. appears somewhat edematous in the face today, will follow (lithium dosing increased last night). 06/27 continue tx. 06/28 continue tx. 06/29: no change in mgmt. 06/30: no change in presentation, no change in mgmt. 07/01: continue current mgmt. slept 6 hours overnight. otherwise remains bizarre. 07/02: check lithium level. T/C adding tegretol to regimen as pt has had inadequate progress on current regimen. 07/03: lithium level remains around 0.55 despite increase in dosing. investigating use of liquid formulation with pharmacy. if liquid available will change to liquid 600 BID and check level again. if we are unable to improve clinical state with liquid lithium will add tegretol to regimen. 07/04: No changes to current treatment plan. 07/06: added 1:1 for 30 minutes post-medication to reduce possibility of cheeking/regurgitation. per pharmacy, liquid lithium has been discontinued. tegretol remains an option. 07/07: no change in presentation or plan. observe after med administration for 5 days, check lithium level. 07/08: laughing and joking with MD and SW. no longer hostile toward MD. sleeping better through the night. continues to endorse voices from afar. Reason for contiued inpatient stay Substantial Risk for: harm to self, harm to others, inability to function and rapid decompensation Time Spent With Patient Time: Total time managing care of this patient today _20___ minutes.
[2022-07-08] MEDS: Lithium Carbonate ER 450 MG TABLET.ER 900 MG PO (21:59)
[2022-07-08 22:02] VITALS: BP 136/69; PULSE 87; TEMP 36.3; O2SAT 97
[2022-07-09] MEDS: Lithium Carbonate ER 300 MG TABLET.ER 600 MG PO (08:56)
[2022-07-09] MEDS: OLANZapine ODT 10 MG TAB.RAPDIS 20 MG TRANSLINGU ×2 (08:56→22:06)
[2022-07-09 08:57] VITALS: BP 126/76; PULSE 80; RESP 20; TEMP 36.1; O2SAT 96
--- NOTE | 2022-07-09 13:07 | HO.PSYCHPN ---
Subjective Subjective Date of Service: 07/09/22 Reason For Visit: AH, delusional Interim History: no change in presentation. visible in the milieu. per staff, not happy bcse the hospital has run out of metamucil. slept well last NOC. attending art group. taking meds and eating meals. upset with nurse last night for unclear reasons, otherwise laughing/joking/smiling. i am not mentally ill, the spirits tell me so. Mental Status Exam Mental Status Exam Narrative: up and about the unit, appears adequately groomed. cooperative. no PMA/PMR. thoughts linear in brief interaction, speech droning and loud. affect full range and flexible, hypo-intense, non-labile. mood euthymic. no SI/HI/AVH expressed. Diagnostics Vital Signs (24Hr): Vital Signs - 24 hr 07/08/22 22:02 07/09/22 08:57 Temperature 97.4 F 97.0 F Pulse Rate 87 80 Respiratory Rate 20 Blood Pressure 136/69 126/76 Pulse Oximetry 97 96 Oxygen Delivery Method Room Air Room Air BMI result Body Mass Index 0.0 Labs 05/07/22 13:16 07/02/22 20:56 Medications Medications Current Medications Acetaminophen (Acetaminophen 325 Mg Tablet) 650 mg PO Q6H PRN PRN Reason: Headache/Pain Mild Scale (1-3) Al Hydroxide/Mg Hydroxide (Magnesium Hydrox/Alum Hydrox 30 Ml Oral.Susp) 30 ml PO Q6H PRN PRN Reason: Heartburn/Nausea Haloperidol (Haloperidol 5 Mg Tablet) 5 mg PO QID PRN PRN Reason: psychosis, agitati [place] Carbonate ([place] Carbonate Er 300 Mg Tablet.Er) 600 mg PO DAILY [facility] Last Admin: 07/09/22 08:56 Dose: 600 mg [place] Carbonate ([place] Carbonate Er 450 Mg Tablet.Er) 900 mg PO BEDTIME [facility] Last Admin: 07/08/22 21:59 Dose: 900 mg Magnesium Hydroxide (Milk Of Magnesia 30 Ml Oral.Susp) 30 ml PO DAILY PRN PRN Reason: Constipation Olanzapine (Olanzapine 10 Mg Vial) 10 mg IM BID PRN PRN Reason: refusal of PO zyprexa, per debra Last Admin: 06/12/22 22:55 Dose: 10 mg Olanzapine (Olanzapine Odt 10 Mg Tab.Rapdis) 20 mg TRANSLINGU BEDTIME [facility] Last Admin: 07/08/22 21:58 Dose: 20 mg Olanzapine (Olanzapine Odt 10 Mg Tab.Rapdis) 20 mg TRANSLINGU DAILY [facility] Last Admin: 07/09/22 08:56 Dose: 20 mg Psyllium Hydrophilic Mucilloid (Psyllium Seed 3.4 Gm Powd.Pack) 3.4 gm PO BID [facility] Last Admin: 07/09/22 10:15 Dose: Not Given Trazodone HCl (Trazodone Hcl 50 Mg Tablet) 50 mg PO BEDTIME PRN PRN Reason: Insomnia Last Admin: 05/27/22 20:11 Dose: 50 mg Allergies Allergies Allergy/AdvReac Type Severity Reaction Status Date / Time bupropion [From Wellbutrin] Allergy Mild CAUSES Unverified 03/07/20 15:04 SWOLLEN HEAD tetracycline [Tetracycline] Allergy Mild UNKNOWN Unverified 03/07/20 15:04 trifluoperazine Allergy Mild UNKNOWN Unverified 03/07/20 15:04 [From Stelazine] clozapine [From Clozaril] AdvReac Mild SEIZURES,NE Unverified 03/07/20 15:04 UTROPENIA Assessment & Plan Assessment & Plan (1) Schizoaffective disorder, bipolar type: Status: Acute Code(s): F25.0 - Schizoaffective disorder, bipolar type Plan Eriberto is a 56 y.o. male with a past medical history of schizoaffective disorder, bipolar type. He presented [place] [facility] [place] 05[place]07[place]22 due to grandiose, paranoid delusional thought content, command AH. Per pt?s gf, he had been doing well until 05/02/22, however began responding to internal stimuli and on 05/06/22 he emptied his medications down the garbage disposal. Hx of IPLOC on section 8 at [facility] in September- November 2021. Stabilized on lithium and olanzapine. Plan: Pt signed a CV, however does not appear to understand the conditional voluntary form and felt forced into doing this, states he is actually involuntary for the admission, will reject the CV. Will continue lithium 600 mg BID and olanzapine 30 mg HS, however pt says he intends to refuse. Li level 0.53 on admission. 05/08: Continue to offer meds, pt is intrusive, bizarre, makes vague statements about harming himself or others if forced to take meds, on 5 min checks 05/09: Refused to meet, declining medication 05/10: Refuses meds, not engaging in tx 05/11: Refuses meds, not engaging in tx. Pt is now a section VII. Will change olanzapine to ODT to promote adherence. 05/13: took meds last night. irritable, labile. reporting AH. 05/14 continue tx. 05/15: not consistently taking medication. hypersexual, bizarre. threatened to stab staff with scissors (which he had in his hand) and was not cooperative in returning razor to staff after shaving. 05/16 not taking meds, sect 7 continues offering meds. 05/17 continue tx. not taking meds ,pending court. 05/18: refusing meds. exposing his genitalia in the skelton, licking the floor, throwing urine-soaked playing cards at staff. 05/19: refusing meds. ripped crowns off teeth and threw them away; smearing food on self and door; leaving urine footprints in the skelton, smelling and dripping of the stuff. given medication restraint of zyprexa 10 and benadryl 50 IM after throwing hot soup in the milieu with peers in the area. 05/20: no change in presentation. refusing medications, denies he has mental illness. 05/21: sedated from having taken zyprexa 30 PO mg this morning. pushed staff in order to access kitchen last night, got zyprexa and benadryl IM after. 05/22: periods of agitation. defecated in shower. pacing, trying exits. continue current mgmt. 05/23: pt refusing meds, night prior he was disruptive on unit i.e. tearing up board games, intrusive towards peers 05/24: no med changes, refusing meds 05/25: refusing meds. court . wednesday was storing feces wrapped in paper towels on his shelving to save the universe. incontinent of urine in the milieu, slow to change/wash. 05/26: took zyprexa yesterday morning, refusing lithium. irritable. you are all lesbians trying to take over the world. 05/27: refusing meds. hearing tomorrow. to staff trying to administer meds: shove it up your ass! to female staff attempting to provide care: get out, bitch. you're a dog. get on your knees. [email or web address] declined mtg with TERA. 05/28: taking food from others' trays and throwing it away, masturbating in milieu, calling female staff bitch, ripped up checks sheet from off of [employer] clipboard, urinating on floor, pouring bottle of water onto floor. committed and ordered medication. 05/29 continue tx, back up IM per court order. 05/30/2022: Has only received olanzapine for the last 1-2 days, therefore unable to clearly evaluate efficacy. Given intensity of behaviors and interactions and psychosis, Will add olanzapine in the morning time i.e. 10 mg morning and 30 mg at bedtime with 10 mg IM backup morning and bedtime. Haldol as needed. 05/31/2022: No changes to current plan. Did have medication restraint today. 06/01: no change to plan. irritable, delusional. 06/02: no change in plan or presentation. 06/03: bizarre delusions. destroyed and threw away peer's art project. misogynistic comments. 06/04: irritable, verbally aggressive, refusing PO meds and getting IMs instead. 06/05: less verbally aggressive and irritable. took PO meds this morning rather than receive IMs. 06/07 no changes to tx plan 06/08: taking IMs all weekend. less aggressive and irritable, still disorganized and delusional. 06/09: PO meds this morning. defecated in shower and engaging in feces play yesterday. poor sleep. presentation essentially unchanged from yesterday. 06/10: stable presentation. loud, droning, disorganized, incoherent. taking meds PO. continue current mgmt. 06/11: stable presentation. loud, droning, disorganized, incoherent. taking meds PO. continue current mgmt. 06/12: stable presentation. loud, droning, disorganized, incoherent. taking meds PO. continue current mgmt. 06/13: Pt refused PO meds on evening of 06/12, received IMs. no changes to tx. disorganized, psychotic. 06/14: adherent with PO meds, some inappropriate comments 06/15: off Q5 min checks, adherent with PO meds 06/16: Check lithium level patient irritable dysphoric easily agitated question med compliance question whether patient is responding to olanzapine. 06/17: no change in presentation. 06/18: no change in presentation. lithium 0.54. 06/19: continue current mgmt. per staff, taking meds with less resistance, brighter, less labile, less aggressive. informed peer he hears very loud voices and that is why he speaks so loudly and to pardon him. 06/20 Continue tx plan. 06/21 Continue tx plan. 06/22 Continue current tx plan. 06/23: no change in presentation. continue current mgmt. 06/24: no change in presentation. continue current mgmt. 06/25: agitation today on being presented with court orders, per his request. denies he has mental illness, gets angry, and verbally abuses MD. increase lithium dosing. 06/26: pt clearly angry with MD, citing information from court order. appears somewhat edematous in the face today, will follow (lithium dosing increased last night). 06/27 continue tx. 06/28 continue tx. 06/29: no change in mgmt. 06/30: no change in presentation, no change in mgmt. 07/01: continue current mgmt. slept 6 hours overnight. otherwise remains bizarre. 07/02: check lithium level. T/C adding tegretol to regimen as pt has had inadequate progress on current regimen. 07/03: lithium level remains around 0.55 despite increase in dosing. investigating use of liquid formulation with pharmacy. if liquid available will change to liquid 600 BID and check level again. if we are unable to improve clinical state with liquid lithium will add tegretol to regimen. 07/04: No changes to current treatment plan. 07/06: added 1:1 for 30 minutes post-medication to reduce possibility of cheeking/regurgitation. per pharmacy, liquid lithium has been discontinued. tegretol remains an option. 07/07: no change in presentation or plan. observe after med administration for 5 days, check lithium level. 07/08: laughing and joking with MD and SW. no longer hostile toward MD. sleeping better through the night. continues to endorse voices from afar. 07/09: i am not mentally ill, the voices tell me so. stable. as of 07/11 will have had 5 days of supervised time for 30 minutes after remote medical coder and will recheck lithium level and labs. Reason for contiued inpatient stay Substantial Risk for: inability to function and rapid decompensation Time Spent With Patient Time: Total time managing care of this patient today __20__ minutes.
[2022-07-09 22:00] VITALS: BP 123/74; PULSE 85; RESP 20; TEMP 36.1; O2SAT 95
[2022-07-09] MEDS: Lithium Carbonate ER 450 MG TABLET.ER 900 MG PO (22:05)
[2022-07-10 06:00] VITALS: BP 118/66; PULSE 88; RESP 18; TEMP 36.7; O2SAT 97
[2022-07-10] MEDS: Lithium Carbonate ER 300 MG TABLET.ER 600 MG PO (08:35)
[2022-07-10] MEDS: OLANZapine ODT 10 MG TAB.RAPDIS 20 MG TRANSLINGU ×2 (08:35→22:42)
--- NOTE | 2022-07-10 19:11 | P.PNPSI_ITS ---
Subjective Subjective Date of Service: 07/10/22 Reason For Visit: AH, delusional Interim History: calm and cooperative for the most part. initially complained of morning sedation. MD informed him he would look into weighting his meds toward evening. pt initially agreed and then sought MD out again later in the day, a bit more agitated, telling MD he wanted his medications left the same after all and that he is planning to tommie MD after he is discharged from the hospital. per staff, slept through the night. calm, frustrated about being in the hospital. Mental Status Exam Mental Status Exam Narrative: up and about the unit, appears adequately groomed. cooperative. no PMA/PMR. thoughts linear in brief interactions, speech droning and loud. affect full range and flexible, hypo-intense, non-labile. mood euthymic. no SI/HI/AVH expressed. Diagnostics Vital Signs (24Hr): Vital Signs - 24 hr 07/09/22 22:00 07/10/22 06:00 Temperature 96.9 F 98.1 F Pulse Rate 85 88 Respiratory Rate 20 18 Blood Pressure 123/74 118/66 Pulse Oximetry 95 97 Oxygen Delivery Method Room Air Room Air BMI result Body Mass Index 0.0 Labs 05/07/22 13:16 07/02/22 20:56 Medications Medications Current Medications Acetaminophen (Acetaminophen 325 Mg Tablet) 650 mg PO Q6H PRN PRN Reason: Headache/Pain Mild Scale (1-3) Al Hydroxide/Mg Hydroxide (Magnesium Hydrox/Alum Hydrox 30 Ml Oral.Susp) 30 ml PO Q6H PRN PRN Reason: Heartburn/Nausea Haloperidol (Haloperidol 5 Mg Tablet) 5 mg PO QID PRN PRN Reason: psychosis, agitati [place] Carbonate ([place] Carbonate Er 300 Mg Tablet.Er) 600 mg PO DAILY [facility] Last Admin: 07/10/22 08:35 Dose: 600 mg [place] Carbonate ([place] Carbonate Er 450 Mg Tablet.Er) 900 mg PO BEDTIME [facility] Last Admin: 07/09/22 22:05 Dose: 900 mg Magnesium Hydroxide (Milk Of Magnesia 30 Ml Oral.Susp) 30 ml PO DAILY PRN PRN Reason: Constipation Olanzapine (Olanzapine 10 Mg Vial) 10 mg IM BID PRN PRN Reason: refusal of PO zyprexa, per debra Last Admin: 06/12/22 22:55 Dose: 10 mg Olanzapine (Olanzapine Odt 10 Mg Tab.Rapdis) 20 mg TRANSLINGU BEDTIME [facility] Last Admin: 07/09/22 22:06 Dose: 20 mg Olanzapine (Olanzapine Odt 10 Mg Tab.Rapdis) 20 mg TRANSLINGU DAILY [facility] Last Admin: 07/10/22 08:35 Dose: 20 mg Psyllium Hydrophilic Mucilloid (Psyllium Seed 3.4 Gm Powd.Pack) 3.4 gm PO BID [facility] Last Admin: 07/10/22 11:39 Dose: Not Given Trazodone HCl (Trazodone Hcl 50 Mg Tablet) 50 mg PO BEDTIME PRN PRN Reason: Insomnia Last Admin: 05/27/22 20:11 Dose: 50 mg Allergies Allergies Allergy/AdvReac Type Severity Reaction Status Date / Time bupropion [From Wellbutrin] Allergy Mild CAUSES Unverified 03/07/20 15:04 SWOLLEN HEAD tetracycline [Tetracycline] Allergy Mild UNKNOWN Unverified 03/07/20 15:04 trifluoperazine Allergy Mild UNKNOWN Unverified 03/07/20 15:04 [From Stelazine] clozapine [From Clozaril] AdvReac Mild SEIZURES,NE Unverified 03/07/20 15:04 UTROPENIA Assessment & Plan Assessment & Plan (1) Schizoaffective disorder, bipolar type: Status: Acute Code(s): F25.0 - Schizoaffective disorder, bipolar type Plan Eriberto is a 56 y.o. male with a past medical history of schizoaffective disorder, bipolar type. He presented to [facility] on 05/07/22 due to grandiose, paranoid delusional thought content, command AH. Per pt?s gf, he had been doing well until 05/02/22, however began responding to internal stimuli and on 05/06/22 he emptied his medications down the garbage disposal. Hx of IPLOC on section 8 at [facility] in September- November 2021. Stabilized on lithium and olanzapine. Plan: Pt signed a CV, however does not appear to understand the conditional voluntary form and felt forced into doing this, states he is actually involuntary for the admission, will reject the CV. Will continue lithium 600 mg BID and olanzapine 30 mg HS, however pt says he intends to refuse. Li level 0.53 on admission. 05/08: Continue to offer meds, pt is intrusive, bizarre, makes vague statements about harming himself or others if forced to take meds, on 5 min checks 05/09: Refused to meet, declining medication 05/10: Refuses meds, not engaging in tx 05/11: Refuses meds, not engaging in tx. Pt is now a section VII. Will change olanzapine to ODT to promote adherence. 05/13: took meds last night. irritable, labile. reporting AH. 05/14 continue tx. 05/15: not consistently taking medication. hypersexual, bizarre. threatened to stab staff with scissors (which he had in his hand) and was not cooperative in returning razor to staff after shaving. 05/16 not taking meds, sect 7 continues offering meds. 05/17 continue tx. not taking meds ,pending court. 05/18: refusing meds. exposing his genitalia in the skelton, licking the floor, throwing urine-soaked playing cards at staff. 05/19: refusing meds. ripped crowns off teeth and threw them away; smearing food on self and door; leaving urine footprints in the skel[place], smelling and dripping of the stuff. given medication restraint of zyprexa 10 and benadryl 50 IM after throwing hot soup in the milieu with peers in the area. 05/20: no change in presentation. refusing medications, denies he has mental illness. 05/21: sedated from having taken zyprexa 30 PO mg this morning. pushed staff in order to access kitchen last night, got zyprexa and benadryl IM after. 05/22: periods of agitation. defecated in shower. pacing, trying exits. continue current mgmt. 05/23: pt refusing meds, night prior he was disruptive on unit i.e. tearing up board games, intrusive towards peers 05/24: no med changes, refusing meds 05/25: refusing meds. court . wednesday was storing feces wrapped in paper towels on his shelving to save the universe. incontinent of urine in the milieu, slow to change/wash. 05/26: took zyprexa yesterday morning, refusing lithium. irritable. you are all lesbians trying to take over the world. 05/27: refusing meds. hearing tomorrow. to staff trying to administer meds: shove it up your ass! to female staff attempting to provide care: get out, bitch. you're a dog. get on your knees. [id number] declined mtg with TERA. 05/28: taking food from others' trays and throwing it away, masturbating in milieu, calling female staff bitch, ripped up checks sheet from off of [employer] clipboard, urinating on floor, pouring bottle of water onto floor. committed and ordered medication. 05/29 continue tx, back up IM per court order. 05/30/2022: Has only received olanzapine for the last 1-2 days, therefore unable to clearly evaluate efficacy. Given intensity of behaviors and interactions and psychosis, Will add olanzapine in the morning time i.e. 10 mg morning and 30 mg at bedtime with 10 mg IM backup morning and bedtime. Haldol as needed. 05/31/2022: No changes to current plan. Did have medication restraint today. 06/01: no change to plan. irritable, delusional. 06/02: no change in plan or presentation. 06/03: bizarre delusions. destroyed and threw away peer's art project. misogynistic comments. 06/04: irritable, verbally aggressive, refusing PO meds and getting IMs instead. 06/05: less verbally aggressive and irritable. took PO meds this morning rather than receive IMs. 06/07 no changes to tx plan 06/08: taking IMs all weekend. less aggressive and irritable, still disorganized and delusional. 06/09: PO meds this morning. defecated in shower and engaging in feces play yesterday. poor sleep. presentation essentially unchanged from yesterday. 06/10: stable presentation. loud, droning, disorganized, incoherent. taking meds PO. continue current mgmt. 06/11: stable presentation. loud, droning, disorganized, incoherent. taking meds PO. continue current mgmt. 06/12: stable presentation. loud, droning, disorganized, incoherent. taking meds PO. continue current mgmt. 06/13: Pt refused PO meds on evening of 06/12, received IMs. no changes to tx. disorganized, psychotic. 06/14: adherent with PO meds, some inappropriate comments 06/15: off Q5 min checks, adherent with PO meds 06/16: Check lithium level patient irritable dysphoric easily agitated question med compliance question whether patient is responding to olanzapine. 06/17: no change in presentation. 06/18: no change in presentation. lithium 0.54. 06/19: continue current mgmt. per staff, taking meds with less resistance, brighter, less labile, less aggressive. informed peer he hears very loud voices and that is why he speaks so loudly and to pardon him. 06/20 Continue tx plan. 06/21 Continue tx plan. 06/22 Continue current tx plan. 06/23: no change in presentation. continue current mgmt. 06/24: no change in presentation. continue current mgmt. 06/25: agitation today on being presented with court orders, per his request. denies he has mental illness, gets angry, and verbally abuses MD. increase lithium dosing. 06/26: pt clearly angry with MD, citing information from court order. appears somewhat edematous in the face today, will follow (lithium dosing increased last night). 06/27 continue tx. 06/28 continue tx. 06/29: no change in mgmt. 06/30: no change in presentation, no change in mgmt. 07/01: continue current mgmt. slept 6 hours overnight. otherwise remains bizarre. 07/02: check lithium level. T/C adding tegretol to regimen as pt has had inadequate progress on current regimen. 07/03: lithium level remains around 0.55 despite increase in dosing. investigating use of liquid formulation with pharmacy. if liquid available will change to liquid 600 BID and check level again. if we are unable to improve clinical state with liquid lithium will add tegretol to regimen. 07/04: No changes to current treatment plan. 07/06: added 1:1 for 30 minutes post-medication to reduce possibility of cheeking/regurgitation. per pharmacy, liquid lithium has been discontinued. tegretol remains an option. 07/07: no change in presentation or plan. observe after med administration for 5 days, check lithium level. 07/08: laughing and joking with MD and SW. no longer hostile toward MD. sleeping better through the night. continues to endorse voices from afar. 07/09: i am not mentally ill, the voices tell me so. stable. as of 07/11 will have had 5 days of supervised time for 30 minutes after medical staffing coordinator and will recheck lithium level and labs. 07/10: no change in presentation. continue current mgmt. Reason for contiued inpatient stay Substantial Risk for: harm to self, harm to others, inability to function and med/psych decompensation Time Spent With Patient Time: Total time managing care of this patient today _25___ minutes.
[2022-07-10] MEDS: Lithium Carbonate ER 450 MG TABLET.ER 900 MG PO (22:42)
[2022-07-10 22:48] VITALS: BP 136/70; PULSE 84; RESP 16; O2SAT 96
[2022-07-11 09:04] VITALS: BP 120/79; PULSE 83; RESP 15; TEMP 36.8; O2SAT 97
[2022-07-11] MEDS: Lithium Carbonate ER 300 MG TABLET.ER 600 MG PO (09:10)
[2022-07-11] MEDS: OLANZapine ODT 10 MG TAB.RAPDIS 20 MG TRANSLINGU ×2 (09:10→22:26)
--- NOTE | 2022-07-11 10:07 | HO.PSYCHPN ---
Subjective Subjective Date of Service: 07/11/22 Reason For Visit: AH, delusional Subjective Notes: Section 8 Interim History: Patient was seen and discussed in rounds today. Records and plans were reviewed. He has been visible, little more social. He has been compliant with his medications. No complaints of drowsiness. Eating and sleeping adequately. No changes were made today Medication Compliance: Yes Review of Systems Review of Systems Yes all other systems are reviewed and are negative Mental Status Exam Mental Status Exam Narrative: In today's visit he is alert, oriented and pleasant. Normal speech. Minimal eye contact. Affect is subdued and constricted. No acute signs of psychosis. No SI/HI. Cognitively intact with no gross deficits. Judgment is intact Diagnostics Vital Signs (24Hr): Vital Signs - 24 hr 07/10/22 22:48 07/11/22 09:04 Temperature 98.3 F Pulse Rate 84 83 Respiratory Rate 16 15 Blood Pressure 136/70 120/79 Pulse Oximetry 96 97 Oxygen Delivery Method Room Air Room Air BMI result Body Mass Index 0.0 Labs 05/07/22 13:16 07/02/22 20:56 Medications Medications Current Medications Acetaminophen (Acetaminophen 325 Mg Tablet) 650 mg PO Q6H PRN PRN Reason: Headache/Pain Mild Scale (1-3) Al Hydroxide/Mg Hydroxide (Magnesium Hydrox/Alum Hydrox 30 Ml Oral.Susp) 30 ml PO Q6H PRN PRN Reason: Heartburn/Nausea Haloperidol (Haloperidol 5 Mg Tablet) 5 mg PO QID PRN PRN Reason: psychosis, agitati [place] Carbonate ([place] Carbonate Er 300 Mg Tablet.Er) 600 mg PO DAILY [facility] Last Admin: 07/11/22 09:10 Dose: 600 mg [place] Carbonate ([place] Carbonate Er 450 Mg Tablet.Er) 900 mg PO BEDTIME [facility] Last Admin: 07/10/22 22:42 Dose: 900 mg Magnesium Hydroxide (Milk Of Magnesia 30 Ml Oral.Susp) 30 ml PO DAILY PRN PRN Reason: Constipation Olanzapine (Olanzapine 10 Mg Vial) 10 mg IM BID PRN PRN Reason: refusal of PO zyprexa, per debra Last Admin: 06/12/22 22:55 Dose: 10 mg Olanzapine (Olanzapine Odt 10 Mg Tab.Rapdis) 20 mg TRANSLINGU BEDTIME [facility] Last Admin: 07/10/22 22:42 Dose: 20 mg Olanzapine (Olanzapine Odt 10 Mg Tab.Rapdis) 20 mg TRANSLINGU DAILY [facility] Last Admin: 07/11/22 09:10 Dose: 20 mg Psyllium Hydrophilic Mucilloid (Psyllium Seed 3.4 Gm Powd.Pack) 3.4 gm PO BID [facility] Last Admin: 07/11/22 09:09 Dose: 3.4 gm Trazodone HCl (Trazodone Hcl 50 Mg Tablet) 50 mg PO BEDTIME PRN PRN Reason: Insomnia Last Admin: 05/27/22 20:11 Dose: 50 mg Allergies Allergies Allergy/AdvReac Type Severity Reaction Status Date / Time bupropion [From Wellbutrin] Allergy Mild CAUSES Unverified 03/07/20 15:04 SWOLLEN HEAD tetracycline [Tetracycline] Allergy Mild UNKNOWN Unverified 03/07/20 15:04 trifluoperazine Allergy Mild UNKNOWN Unverified 03/07/20 15:04 [From Stelazine] clozapine [From Clozaril] AdvReac Mild SEIZURES,NE Unverified 03/07/20 15:04 UTROPENIA Assessment & Plan Assessment & Plan (1) Schizoaffective disorder, bipolar type: Status: Acute Code(s): F25.0 - Schizoaffective disorder, bipolar type Plan Eriberto is a 56 y.o. male with a past medical history of schizoaffective disorder, bipolar type. He [place] [facility] [place] due to grandiose, paranoid delusional thought content, command AH. Per pt?s gf, he had been doing well until 05/02/22, however began responding to internal stimuli and on 05/06/22 he emptied his medications down the garbage disposal. Hx of IPLOC on section 8 at [facility] in September- November 2021. Stabilized on lithium and olanzapine. Plan: Pt signed a CV, however does not appear to understand the conditional voluntary form and felt forced into doing this, states he is actually involuntary for the admission, will reject the CV. Will continue lithium 600 mg BID and olanzapine 30 mg HS, however pt says he intends to refuse. Li level 0.53 on admission. 05/08: Continue to offer meds, pt is intrusive, bizarre, makes vague statements about harming himself or others if forced to take meds, on 5 min checks 05/09: Refused to meet, declining medication 05/10: Refuses meds, not engaging in tx 05/11: Refuses meds, not engaging in tx. Pt is now a section VII. Will change olanzapine to ODT to promote adherence. 05/13: took meds last night. irritable, labile. reporting AH. 05/14 continue tx. 05/15: not consistently taking medication. hypersexual, bizarre. threatened to stab staff with scissors (which he had in his hand) and was not cooperative in returning razor to staff after shaving. 05/16 not taking meds, sect 7 continues offering meds. 05/17 continue tx. not taking meds ,pending court. 05/18: refusing meds. exposing his genitalia in the skelton, licking the floor, throwing urine-soaked playing cards at staff. 05/19: refusing meds. ripped crowns off teeth and threw them away; smearing food on self and door; leaving urine footprints in the skelton, smelling and dripping of the stuff. given medication restraint of zyprexa 10 and benadryl 50 IM after throwing hot soup in the milieu with peers in the area. 05/20: no change in presentation. refusing medications, denies he has mental illness. 05/21: sedated from having taken zyprexa 30 PO mg this morning. pushed staff in order to access kitchen last night, got zyprexa and benadryl IM after. 05/22: periods of agitation. defecated in shower. pacing, trying exits. continue current mgmt. 05/23: pt refusing meds, night prior he was disruptive on unit i.e. tearing up board games, intrusive towards peers 05/24: no med changes, refusing meds 05/25: refusing meds. court . wednesday was storing feces wrapped in paper towels on his shelving to save the universe. incontinent of urine in the milieu, slow to change/wash. 05/26: took zyprexa yesterday morning, refusing lithium. irritable. you are all lesbians trying to take over the world. 05/27: refusing meds. hearing tomorrow. to staff trying to administer meds: shove it up your ass! to female staff attempting to provide care: get out, bitch. you're a dog. get on your knees. [id number] declined mtg with TERA. 05/28: taking food from others' trays and throwing it away, masturbating in milieu, calling female staff bitch, ripped up checks sheet from off of [employer]'s clipboard, urinating on floor, pouring bottle of water onto floor. committed and ordered medication. 05/29 continue tx, back up IM per court order. 05/30/2022: Has only received olanzapine for the last 1-2 days, therefore unable to clearly evaluate efficacy. Given intensity of behaviors and interactions and psychosis, Will add olanzapine in the morning time i.e. 10 mg morning and 30 mg at bedtime with 10 mg IM backup morning and bedtime. Haldol as needed. 05/31/2022: No changes to current plan. Did have medication restraint today. 06/01: no change to plan. irritable, delusional. 06/02: no change in plan or presentation. 06/03: bizarre delusions. destroyed and threw away peer'[employer] art project. misogynistic comments. 06/04: irritable, verbally aggressive, refusing PO meds and getting IMs instead. 06/05: less verbally aggressive and irritable. took PO meds this morning rather than receive IMs. 06/07 no changes to tx plan 06/08: taking IMs all weekend. less aggressive and irritable, still disorganized and delusional. 06/09: PO meds this morning. defecated in shower and engaging in feces play yesterday. poor sleep. presentation essentially unchanged from yesterday. 06/10: stable presentation. loud, droning, disorganized, incoherent. taking meds PO. continue current mgmt. 06/11: stable presentation. loud, droning, disorganized, incoherent. taking meds PO. continue current mgmt. 06/12: stable presentation. loud, droning, disorganized, incoherent. taking meds PO. continue current mgmt. 06/13: Pt refused PO meds on evening of 06/12, received IMs. no changes to tx. disorganized, psychotic. 06/14: adherent with PO meds, some inappropriate comments 06/15: off Q5 min checks, adherent with PO meds 06/16: Check lithium level patient irritable dysphoric easily agitated question med compliance question whether patient is responding to olanzapine. 06/17: no change in presentation. 06/18: no change in presentation. lithium 0.54. 06/19: continue current mgmt. per staff, taking meds with less resistance, brighter, less labile, less aggressive. informed peer he hears very loud voices and that is why he speaks so loudly and to pardon him. 06/20 Continue tx plan. 06/21 Continue tx plan. 06/22 Continue current tx plan. 06/23: no change in presentation. continue current mgmt. 06/24: no change in presentation. continue current mgmt. 06/25: agitation today on being presented with court orders, per his request. denies he has mental illness, gets angry, and verbally abuses MD. increase lithium dosing. 06/26: pt clearly angry with MD, citing information from court order. appears somewhat edematous in the face today, will follow (lithium dosing increased last night). 06/27 continue tx. 06/28 continue tx. 06/29: no change in mgmt. 06/30: no change in presentation, no change in mgmt. 07/01: continue current mgmt. slept 6 hours overnight. otherwise remains bizarre. 07/02: check lithium level. T/C adding tegretol to regimen as pt has had inadequate progress on current regimen. 07/03: lithium level remains around 0.55 despite increase in dosing. investigating use of liquid formulation with pharmacy. if liquid available will change to liquid 600 BID and check level again. if we are unable to improve clinical state with liquid lithium will add tegretol to regimen. 07/04: No changes to current treatment plan. 07/06: added 1:1 for 30 minutes post-medication to reduce possibility of cheeking/regurgitation. per pharmacy, liquid lithium has been discontinued. tegretol remains an option. 07/07: no change in presentation or plan. observe after med administration for 5 days, check lithium level. 07/08: laughing and joking with MD and SW. no longer hostile toward MD. sleeping better through the night. continues to endorse voices from afar. 07/09: i am not mentally ill, the voices tell me so. stable. as of 07/11 will have had 5 days of supervised time for 30 minutes after integrative medicine physician and will recheck lithium level and labs. 07/10: no change in presentation. continue current mgmt. 07/11: Continue current plans and regimen Reason for contiued inpatient stay Substantial Risk for: med/psych decompensation Time Spent With Patient Time: Total time managing care of this patient today ____ minutes.
[2022-07-11 18:10] VITALS: BP 134/74; PULSE 87; RESP 18; TEMP 36.8; O2SAT 95
[2022-07-11] MEDS: Lithium Carbonate ER 450 MG TABLET.ER 900 MG PO (22:25)
--- NOTE | 2022-07-12 07:51 | P.PNPSI_ITS ---
Subjective Subjective Date of Service: 07/12/22 Reason For Visit: AH, delusional Subjective Notes: Section 8 Interim History: Patient was seen and discussed in rounds today. Records and plans were reviewed. He has been stable with no behavioral issues. Eating and sleeping adequately. [place] level to be drawn this morning. He has been medication compliant. No complaints or side effects. No changes were made today Medication Compliance: Yes Review of Systems Review of Systems Yes all other systems are reviewed and are negative Diagnostics Vital Signs (24Hr): Vital Signs - 24 hr 07/11/22 09:04 07/11/22 18:10 Temperature 98.3 F 98.3 F Pulse Rate 83 87 Respiratory Rate 15 18 Blood Pressure 120/79 134/74 Pulse Oximetry 97 95 Oxygen Delivery Method Room Air Room Air BMI result Body Mass Index 0.0 Labs 05/07/22 13:16 07/02/22 20:56 Medications Medications Current Medications Acetaminophen (Acetaminophen 325 Mg Tablet) 650 mg PO Q6H PRN PRN Reason: Headache/Pain Mild Scale (1-3) Al Hydroxide/Mg Hydroxide (Magnesium Hydrox/Alum Hydrox 30 Ml Oral.Susp) 30 ml PO Q6H PRN PRN Reason: Heartburn/Nausea Haloperidol (Haloperidol 5 Mg Tablet) 5 mg PO QID PRN PRN Reason: psychosis, agitati [place] Carbonate ([place] Carbonate Er 300 Mg Tablet.Er) 600 mg PO DAILY [facility] Last Admin: 07/11/22 09:10 Dose: 600 mg [place] Carbonate ([place] Carbonate Er 450 Mg Tablet.Er) 900 mg PO BEDTIME [facility] Last Admin: 07/11/22 22:25 Dose: 900 mg Magnesium Hydroxide (Milk Of Magnesia 30 Ml Oral.Susp) 30 ml PO DAILY PRN PRN Reason: Constipation Olanzapine (Olanzapine 10 Mg Vial) 10 mg IM BID PRN PRN Reason: refusal of PO zyprexa, per debra Last Admin: 06/12/22 22:55 Dose: 10 mg Olanzapine (Olanzapine Odt 10 Mg Tab.Rapdis) 20 mg TRANSLINGU BEDTIME [facility] Last Admin: 07/11/22 22:26 Dose: 20 mg Olanzapine (Olanzapine Odt 10 Mg Tab.Rapdis) 20 mg TRANSLINGU DAILY [facility] Last Admin: 07/11/22 09:10 Dose: 20 mg Psyllium Hydrophilic Mucilloid (Psyllium Seed 3.4 Gm Powd.Pack) 3.4 gm PO BID [facility] Last Admin: 07/11/22 22:25 Dose: 3.4 gm Trazodone HCl (Trazodone Hcl 50 Mg Tablet) 50 mg PO BEDTIME PRN PRN Reason: Insomnia Last Admin: 05/27/22 20:11 Dose: 50 mg Allergies Allergies Allergy/AdvReac Type Severity Reaction Status Date / Time bupropion [From Wellbutrin] Allergy Mild CAUSES Unverified 03/07/20 15:04 SWOLLEN HEAD tetracycline [Tetracycline] Allergy Mild UNKNOWN Unverified 03/07/20 15:04 trifluoperazine Allergy Mild UNKNOWN Unverified 03/07/20 15:04 [From Stelazine] clozapine [From Clozaril] AdvReac Mild SEIZURES,NE Unverified 03/07/20 15:04 UTROPENIA Assessment & Plan Assessment & Plan (1) Schizoaffective disorder, bipolar type: Status: Acute Code(s): F25.0 - Schizoaffective disorder, bipolar type Plan Eriberto is a 56 y.o. male with a past medical history of schizoaffective disorder, bipolar type. He presented to [facility] on 05/07/22 due to grandiose, paranoid delusional thought content, command AH. Per pt?s gf, he had been doing well until 05/02/22, however began responding to internal stimuli and on 07/06/21 he emptied his medications down the garbage disposal. Hx of IPLOC on section 8 at [facility] in September- November 2021. Stabilized on lithium and olanzapine. Plan: Pt signed a CV, however does not appear to understand the conditional voluntary form and felt forced into doing this, states he is actually involuntary for the admission, will reject the CV. Will continue lithium 600 mg BID and olanzapine 30 mg HS, however pt says he intends to refuse. Li level 0.53 on admission. 05/08: Continue to offer meds, pt is intrusive, bizarre, makes vague statements about harming himself or others if forced to take meds, on 5 min checks 05/09: Refused to meet, declining medication 05/10: Refuses meds, not engaging in tx 05/11: Refuses meds, not engaging in tx. Pt is now a section VII. Will change olanzapine to ODT to promote adherence. 05/13: took meds last night. irritable, labile. reporting AH. 05/14 continue tx. 05/15: not consistently taking medication. hypersexual, bizarre. threatened to stab staff with scissors (which he had in his hand) and was not cooperative in returning razor to staff after shaving. 05/16 not taking meds, sect 7 continues offering meds. 05/17 continue tx. not taking meds ,pending court. 05/18: refusing meds. exposing his genitalia in the skelton, licking the floor, throwing urine-soaked playing cards at staff. 05/19: refusing meds. ripped crowns off teeth and threw them away; smearing food on self and door; leaving urine footprints in the skel[place], smelling and d ripping of the stuff. given medication restraint of zyprexa 10 and benadryl 50 IM after throwing hot soup in the milieu with peers in the area. 05/20: no change in presentation. refusing medications, denies he has mental illness. 05/21: sedated from having taken zyprexa 30 PO mg this morning. pushed staff in order to access kitchen last night, got zyprexa and benadryl IM after. 05/22: periods of agitation. defecated in shower. pacing, trying exits. continue current mgmt. 05/23: pt refusing meds, night prior he was disruptive on unit i.e. tearing up board games, intrusive towards peers 05/24: no med changes, refusing meds 05/25: refusing meds. court . wednesday was storing feces wrapped in paper towels on his shelving to save the universe. incontinent of urine in the milieu, slow to change/wash. 05/26: took zyprexa yesterday morning, refusing lithium. irritable. you are all lesbians trying to take over the world. 05/27: refusing meds. hearing tomorrow. to staff trying to administer meds: shove it up your ass! to female staff attempting to provide care: get out, bitch. you're a dog. get on your knees. [id number] declined mtg with TERA. 12/8: taking food from others' trays and throwing it away, masturbating in milieu, calling female staff bitch, ripped up checks sheet from off of [employer]'s clipboard, urinating on floor, pouring bottle of water onto floor. committed and ordered medication. 05/29 continue tx, back up IM per court order. 05/30/2022: Has only received olanzapine for the last 1-2 days, therefore unable to clearly evaluate efficacy. Given intensity of behaviors and interactions and psychosis, Will add olanzapine in the morning time i.e. 10 mg morning and 30 mg at bedtime with 10 mg IM backup morning and bedtime. Haldol as needed. 05/31/2022: No changes to current plan. Did have medication restraint today. 06/01: no change to plan. irritable, delusional. 06/02: no change in plan or presentation. 06/03: bizarre delusions. destroyed and threw away peer's art project. misogynistic comments. 06/04: irritable, verbally aggressive, refusing PO meds and getting IMs instead. 06/05: less verbally aggressive and irritable. took PO meds this morning rather than receive IMs. 06/07 no changes to tx plan 06/08: taking IMs all weekend. less aggressive and irritable, still disorganized and delusional. 06/09: PO meds this morning. defecated in shower and engaging in feces play yesterday. poor sleep. presentation essentially unchanged from yesterday. 06/10: stable presentation. loud, droning, disorganized, incoherent. taking meds PO. continue current mgmt. 06/11: stable presentation. loud, droning, disorganized, incoherent. taking meds PO. continue current mgmt. 06/12: stable presentation. loud, droning, disorganized, incoherent. taking meds PO. continue current mgmt. 06/13: Pt refused PO meds on evening of 06/12, received IMs. no changes to tx. disorganized, psychotic. 06/14: adherent with PO meds, some inappropriate comments 06/15: off Q5 min checks, adherent with PO meds 06/16: Check lithium level patient irritable dysphoric easily agitated question med compliance question whether patient is responding to olanzapine. 06/17: no change in presentation. 06/18: no change in presentation. lithium 0.54. 06/19: continue current mgmt. per staff, taking meds with less resistance, brighter, less labile, less aggressive. informed peer he hears very loud voices and that is why he speaks so loudly and to pardon him. 06/20 Continue tx plan. 06/21 Continue tx plan. 06/22 Continue current tx plan. 06/23: no change in presentation. continue current mgmt. 06/24: no change in presentation. continue current mgmt. 06/25: agitation today on being presented with court orders, per his request. denies he has mental illness, gets angry, and verbally abuses MD. increase lithium dosing. 06/26: pt clearly angry with MD, citing information from court order. appears somewhat edematous in the face today, will follow (lithium dosing increased last night). 06/27 continue tx. 06/28 continue tx. 06/29: no change in mgmt. 06/30: no change in presentation, no change in mgmt. 07/01: continue current mgmt. slept 6 hours overnight. otherwise remains bizarre. 07/02: check lithium level. T/C adding tegretol to regimen as pt has had inadequate progress on current regimen. 07/03: lithium level remains around 0.55 despite increase in dosing. investigating use of liquid formulation with pharmacy. if liquid available will change to liquid 600 BID and check level again. if we are unable to improve clinical state with liquid lithium will add tegretol to regimen. 07/04: No changes to current treatment plan. 07/06: added 1:1 for 30 minutes post-medication to reduce possibility of cheeking/regurgitation. per pharmacy, liquid lithium has been discontinued. tegretol remains an option. 07/07: no change in presentation or plan. observe after med administration for 5 days, check lithium level. 07/08: laughing and joking with MD and SW. no longer hostile toward MD. sleeping better through the night. continues to endorse voices from afar. 07/09: i am not mentally ill, the voices tell me so. stable. as of 07/11 will have had 5 days of supervised time for 30 minutes after medical housekeeper and will recheck lithium level and labs. 07/10: no change in presentation. continue current mgmt. 07/11: Continue current plans and regimen 07/12: Continue current regimen and plans Reason for contiued inpatient stay Substantial Risk for: med/psych decompensation Time Spent With Patient Time: Total time managing care of this patient today ____ minutes.
[2022-07-12 09:00] LABS: Lithium 0.84 mmol/L (0.60-1.20)
[2022-07-12 09:15] LABS: Anion Gap 12 (12-20); Blood Urea Nitrogen 16 mg/dL (9-16); Calcium 9.2 mg/dL (8.4-10.2); Carbon Dioxide 26 mmol/L (22-29); Chloride 107 mmol/L (96-108); Estimated Glomerular Filt Rate > 60; Glucose Random 86 mg/dL (60-115); Potassium 4.3 mmol/L (3.3-5.1); Sodium 141 mmol/L (135-145)
[2022-07-12] MEDS: OLANZapine ODT 10 MG TAB.RAPDIS 20 MG TRANSLINGU ×2 (09:52→21:13)
[2022-07-12] MEDS: Lithium Carbonate ER 300 MG TABLET.ER 600 MG PO (09:53)
[2022-07-12 10:01] VITALS: BP 112/68; PULSE 74; RESP 16; TEMP 36.7; O2SAT 97
[2022-07-12 20:30] VITALS: BP 133/74; PULSE 69; RESP 16; TEMP 36.2; O2SAT 98
[2022-07-12] MEDS: Lithium Carbonate ER 450 MG TABLET.ER 900 MG PO (21:13)
[2022-07-13 09:07] VITALS: BP 130/66; PULSE 98; TEMP 36.3; O2SAT 98
[2022-07-13] MEDS: OLANZapine ODT 10 MG TAB.RAPDIS 20 MG TRANSLINGU ×2 (09:24→21:04)
[2022-07-13] MEDS: Lithium Carbonate ER 300 MG TABLET.ER 600 MG PO (09:25)
--- NOTE | 2022-07-13 16:57 | HO.PSYCHPN ---
"Subjective Subjective Date of Service: 07/13/22 Reason For Visit: AH, delusional Interim History: more pleasant today than last week, when pt informed MD he was going to tommie MD after discharge. pt with poor insight into mental illness and need for medication. states he hears people speaking from af[place] but this is genetically determined for him and therefore normal and NOT a mental illness. per staff, concern that lithium absorption being affected by psyllium husk supplement, as pt did not receive psyllium for much of last week and his lithium level increase from 0.55 to about 0.84 in that week without any change in lithium dosing. the other change was pt was on 1:1 for 30 minutes post-prandial. visible, watching TV, pleasant. denies anx/dep/SI/HI/AVH. Mental Status Exam Mental Status Exam Narrative: up and about the unit, appears adequately groomed. cooperative. no PMA/PMR. thoughts linear in brief interactions, not logical, speech less droning and loud. affect full range and flexible, hypo-intense, non-labile. mood euthymic. no SI/HI/VH expressed. hearing voices from afar. Diagnostics Vital Signs (24Hr): Vital Signs - 24 hr 07/12/22 20:30 07/13/22 09:07 Temperature 97.2 F 97.3 F Pulse Rate 69 98 Respiratory Rate 16 Blood Pressure 133/74 130/66 Pulse Oximetry 98 98 Oxygen Delivery Method Room Air Room Air BMI result Body Mass Index 0.0 Labs 05/07/22 13:16 07/12/22 07:58 Labs: Laboratory Results - last 48 hr 07/12/22 07/12/22 07:58 07:58 Sodium 141 Potassium 4.3 Chloride 107 Carbon Dioxide 26 Anion Gap 12 BUN 16 Creatinine 0.93 Estim Creat Clear Calc 134.0 Estimated GFR > 60 Random Glucose 86 Calcium 9.2 [place] 0.84 Medications Medications Current Medications Acetaminophen (Acetaminophen 325 Mg Tablet) 650 mg PO Q6H PRN PRN Reason: Headache/Pain Mild Scale (1-3) Al Hydroxide/Mg Hydroxide (Magnesium Hydrox/Alum Hydrox 30 Ml Oral.Susp) 30 ml PO Q6H PRN PRN Reason: Heartburn/Nausea Haloperidol (Haloperidol 5 Mg Tablet) 5 mg PO QID PRN PRN Reason: psychosis, agitati [place] Carbonate ([place] Carbonate Er 300 Mg Tablet.Er) 600 mg PO DAILY [facility] Last Admin: 07/13/22 09:25 Dose: 600 mg [place] Carbonate ([place] Carbonate Er 450 Mg Tablet.Er) 900 mg PO BEDTIME ANJUM Last Admin: 07/12/22 21:13 Dose: 900 mg Magnesium Hydroxide (Milk Of Magnesia 30 Ml Oral.Susp) 30 ml PO DAILY PRN PRN Reason: Constipation Olanzapine (Olanzapine 10 Mg Vial) 10 mg IM BID PRN PRN Reason: refusal of PO zyprexa, per debra Last Admin: 06/12/22 22:55 Dose: 10 mg Olanzapine (Olanzapine Odt 10 Mg Tab.Rapdis) 20 mg TRANSLINGU BEDTIME ANJUM Last Admin: 07/12/22 21:13 Dose: 20 mg Olanzapine (Olanzapine Odt 10 Mg Tab.Rapdis) 20 mg TRANSLINGU DAILY [facility] Last Admin: 07/13/22 09:24 Dose: 20 mg Psyllium Hydrophilic Mucilloid (Psyllium Seed 3.4 Gm Powd.Pack) 3.4 gm PO BID ANJUM Last Admin: 07/13/22 09:23 Dose: 3.4 gm Trazodone HCl (Trazodone Hcl 50 Mg Tablet) 50 mg PO BEDTIME PRN PRN Reason: Insomnia Last Admin: 05/27/22 20:11 Dose: 50 mg Allergies Allergies Allergy/AdvReac Type Severity Reaction Status Date / Time bupropion [From Wellbutrin] Allergy Mild CAUSES Unverified 03/07/20 15:04 SWOLLEN HEAD tetracycline [Tetracycline] Allergy Mild UNKNOWN Unverified 03/07/20 15:04 trifluoperazine Allergy Mild UNKNOWN Unverified 03/07/20 15:04 [From Stelazine] clozapine [From Clozaril] AdvReac Mild SEIZURES,NE Unverified 03/07/20 15:04 UTROPENIA Assessment & Plan Assessment & Plan (1) Schizoaffective disorder, bipolar type: Status: Acute Code(s): F25.0 - Schizoaffective disorder, bipolar type Plan Eriberto is a 56 y.o. male with a past medical history of schizoaffective disorder, bipolar type. He presented to [facility] on 05/07/22 due to grandiose, paranoid delusional thought content, command AH. Per pt?s gf, he had been doing well until 05/02/22, however began responding to internal stimuli and on 05/06/22 he emptied his medications down the garbage disposal. Hx of IPLOC on section 8 at [facility] in September- November 2021. Stabilized on lithium and olanzapine. Plan: Pt signed a CV, however does not appear to understand the conditional voluntary form and felt forced into doing this, states he is actually involuntary for the admission, will reject the CV. Will continue lithium 600 mg BID and olanzapine 30 mg HS, however pt says he intends to refuse. Li level 0.53 on admission. 05/08: Continue to offer meds, pt is intrusive, bizarre, makes vague statements about harming himself or others if forced to take meds, on 5 min checks 05/09: Refused to meet, declining medication 05/10: Refuses meds, not engaging in tx 05/11: Refuses meds, not engaging in tx. Pt is now a section VII. Will change olanzapine to ODT to promote adherence. 05/13: took meds last night. irritable, labile. reporting AH. 05/14 continue tx. 05/15: not consistently taking medication. hypersexual, bizarre. threatened to stab staff with scissors (which he had in his hand) and was not cooperative in returning razor to staff after shaving. 05/16 not taking meds, sect 7 continues offering meds. 05/17 continue tx. not taking meds ,pending court. 05/18: refusing meds. exposing his genitalia in the skelton, licking the floor, throwing urine-soaked playing cards at staff. 05/19: refusing meds. ripped crowns off teeth and threw them away; smearing food on self and door; leaving urine footprints in the skelton, smelling and dripping of the stuff. given medication restraint of zyprexa 10 and benadryl 50 IM after throwing hot soup in the milieu with peers in the area. 05/20: no change in presentation. refusing medications, denies he has mental illness. 05/21: sedated from having taken zyprexa 30 PO mg this morning. pushed staff in order to access kitchen last night, got zyprexa and benadryl IM after. 05/22: periods of agitation. defecated in shower. pacing, trying exits. continue current mgmt. 05/23: pt refusing meds, night prior he was disruptive on unit i.e. tearing up board games, intrusive towards peers 05/24: no med changes, refusing meds 05/25: refusing meds. court . wednesday was storing feces wrapped in paper towels on his shelving to save the universe. incontinent of urine in the milieu, slow to change/wash. 05/26: took zyprexa yesterday morning, refusing lithium. irritable. you are all lesbians trying to take over the world. 05/27: refusing meds. hearing tomorrow. to staff trying to administer meds: shove it up your ass! to female staff attempting to provide care: get out, bitch. you're a dog. get on your knees. [id number] declined mtg with TERA. 05/28: taking food from others' trays and throwing it away, masturbating in milieu, calling female staff bitch, ripped up checks sheet from off of [employer]'s clipboard, urinating on floor, pouring bottle of water onto floor. committed and ordered medication. 05/29 continue tx, back up IM per court order. 05/30/2022: Has only received olanzapine for the last 1-2 days, therefore unable to clearly evaluate efficacy. Given intensity of behaviors and interactions and psychosis, Will add olanzapine in the morning time i.e. 10 mg morning and 30 mg at bedtime with 10 mg IM backup morning and bedtime. Haldol as needed. 05/31/2022: No changes to current plan. Did have medication restraint today. 06/01: no change to plan. irritable, delusional. 06/02: no change in plan or presentation. 06/03: bizarre delusions. destroyed and threw away peer's art project. misogynistic comments. 06/04: irritable, verbally aggressive, refusing PO meds and getting IMs instead. 06/05: less verbally aggressive and irritable. took PO meds this morning rather than receive IMs. 06/07 no changes to tx plan 06/08: taking IMs all weekend. less aggressive and irritable, still disorganized and delusional. 06/09: PO meds this morning. defecated in shower and engaging in feces play yesterday. poor sleep. presentation essentially unchanged from yesterday. 06/10: stable presentation. loud, droning, disorganized, incoherent. taking meds PO. continue current mgmt. 06/11: stable presentation. loud, droning, disorganized, incoherent. taking meds PO. continue current mgmt. 06/12: stable presentation. loud, droning, disorganized, incoherent. taking meds PO. continue current mgmt. 06/13: Pt refused PO meds on evening of 06/12, received IMs. no changes to tx. disorganized, psychotic. 06/14: adherent with PO meds, some inappropriate comments 06/15: off Q5 min checks, adherent with PO meds 06/16: Check lithium level patient irritable dysphoric easily agitated question med compliance question whether patient is responding to olanzapine. 06/17: no change in presentation. 06/18: no change in presentation. lithium 0.54. 06/19: continue current mgmt. per staff, taking meds with less resistance, brighter, less labile, less aggressive. informed peer he hears very loud voices and that is why he speaks so loudly and to pardon him. 06/20 Continue tx plan. 06/21 Continue tx plan. 06/22 Continue current tx plan. 06/23: no change in presentation. continue current mgmt. 06/24: no change in presentation. continue current mgmt. 06/25: agitation today on being presented with court orders, per his request. denies he has mental illness, gets angry, and verbally abuses MD. increase lithium dosing. 06/26: pt clearly angry with MD, citing information from court order. appears somewhat edematous in the face today, will follow (lithium dosing increased last night). 06/27 continue tx. 06/28 continue tx. 06/29: no change in mgmt. 06/30: no change in presentation, no change in mgmt. 07/01: continue current mgmt. slept 6 hours overnight. otherwise remains bizarre. 07/02: check lithium level. T/C adding tegretol to regimen as pt has had inadequate progress on current regimen. 07/03: lithium level remains around 0.55 despite increase in dosing. investigating use of liquid formulation with pharmacy. if liquid available will change to liquid 600 BID and check level again. if we are unable to improve clinical state with liquid lithium will add tegretol to regimen. 07/04: No changes to current treatment plan. 07/06: added 1:1 for 30 minutes post-medication to reduce possibility of cheeking/regurgitation. per pharmacy, liquid lithium has been discontinued. tegretol remains an option. 07/07: no change in presentation or plan. observe after med administration for 5 days, check lithium level. 07/08: laughing and joking with MD and SW. no longer hostile toward MD. sleeping better through the night. continues to endorse voices from afar. 07/09: i am not mentally ill, the voices tell me so. stable. as of 07/11 will have had 5 days of supervised time for 30 minutes after medicinal plant picker and will recheck lithium level and labs. 07/10: no change in presentation. continue current mgmt. 07/11: Continue current plans and regimen 07/12: Continue current regimen and plans 07/13: lithium 0.84 on 07/11, after 5 days 1:1 for 30 minutes post-prandial. confounder of lack of psyllium supplement co-incident. will continue to observe post-prandial this week while also receiving psyllium, check lithium level again toward end of week to resolve the question. remains with poor insight into mental illness as well as with symptoms. strongly considering the addition of tegretol as pt is not likely to remain compliant for long after discharge in present state. Reason for contiued inpatient stay Substantial Risk for: inability to function and rapid decompensation Time Spent With Patient Time: Total time managing care of this patient today __25__ minutes."
[2022-07-13 20:30] VITALS: BP 133/75; PULSE 75; RESP 16; TEMP 36.6; O2SAT 97
[2022-07-13] MEDS: Lithium Carbonate ER 450 MG TABLET.ER 900 MG PO (21:04)
[2022-07-14 08:00] VITALS: BP 131/71; PULSE 71; RESP 18; TEMP 36.6; O2SAT 97
[2022-07-14] MEDS: OLANZapine ODT 10 MG TAB.RAPDIS 20 MG TRANSLINGU ×2 (09:10→22:30)
[2022-07-14] MEDS: Lithium Carbonate ER 300 MG TABLET.ER 600 MG PO (09:11)
--- NOTE | 2022-07-14 15:10 | HO.PSYCHPN ---
Subjective Subjective Date of Service: 07/14/22 Reason For Visit: AH, delusional Interim History: no insight into mental illness, hostile toward taking medications. per staff, pleasant, relaxed, guarded. just getting by. attending groups. safe. showered but didn't change clothes. metamucil restarted 07/11; recheck lithium level 07/15 xuan. Mental Status Exam Mental Status Exam Narrative: up and about the unit, appears adequately groomed. cooperative. no PMA/PMR. thoughts linear in brief interactions, not logical, speech less droning and loud. affect constricted, hypo-intense, non-labile. no SI/HI/VH expressed. hearing [employer] which tell him he does not have mental illness. Diagnostics Vital Signs (24Hr): Vital Signs - 24 hr 07/13/22 20:30 07/14/22 08:00 Temperature 98 F 97.8 F Pulse Rate 75 71 Respiratory Rate 16 18 Blood Pressure 133/75 131/71 Pulse Oximetry 97 97 Oxygen Delivery Method Room Air Room Air BMI result Body Mass Index 0.0 Labs 05/07/22 13:16 07/12/22 07:58 Medications Medications Current Medications Acetaminophen (Acetaminophen 325 Mg Tablet) 650 mg PO Q6H PRN PRN Reason: Headache/Pain Mild Scale (1-3) Al Hydroxide/Mg Hydroxide (Magnesium Hydrox/Alum Hydrox 30 Ml Oral.Susp) 30 ml PO Q6H PRN PRN Reason: Heartburn/Nausea Haloperidol (Haloperidol 5 Mg Tablet) 5 mg PO QID PRN PRN Reason: psychosis, agitati [place] Carbonate ([place] Carbonate Er 300 Mg Tablet.Er) 600 mg PO DAILY [facility] Last Admin: 07/14/22 09:11 Dose: 600 mg [place] Carbonate ([place] Carbonate Er 450 Mg Tablet.Er) 900 mg PO BEDTIME ANJUM Last Admin: 07/13/22 21:04 Dose: 900 mg Magnesium Hydroxide (Milk Of Magnesia 30 Ml Oral.Susp) 30 ml PO DAILY PRN PRN Reason: Constipation Olanzapine (Olanzapine 10 Mg Vial) 10 mg IM BID PRN PRN Reason: refusal of PO zyprexa, per debra Last Admin: 06/12/22 22:55 Dose: 10 mg Olanzapine (Olanzapine Odt 10 Mg Tab.Rapdis) 20 mg TRANSLINGU BEDTIME ANJUM Last Admin: 07/13/22 21:04 Dose: 20 mg Olanzapine (Olanzapine Odt 10 Mg Tab.Rapdis) 20 mg TRANSLINGU DAILY [facility] Last Admin: 07/14/22 09:10 Dose: 20 mg Psyllium Hydrophilic Mucilloid (Psyllium Seed 3.4 Gm Powd.Pack) 3.4 gm PO BID [facility] Last Admin: 07/14/22 09:13 Dose: 3.4 gm Trazodone HCl (Trazodone Hcl 50 Mg Tablet) 50 mg PO BEDTIME PRN PRN Reason: Insomnia Last Admin: 05/27/22 20:11 Dose: 50 mg Allergies Allergies Allergy/AdvReac Type Severity Reaction Status Date / Time bupropion [From Wellbutrin] Allergy Mild CAUSES Unverified 03/07/20 15:04 SWOLLEN HEAD tetracycline [Tetracycline] Allergy Mild UNKNOWN Unverified 03/07/20 15:04 trifluoperazine Allergy Mild UNKNOWN Unverified 03/07/20 15:04 [From Stelazine] clozapine [From Clozaril] AdvReac Mild SEIZURES,NE Unverified 03/07/20 15:04 UTROPENIA Assessment & Plan Assessment & Plan (1) Schizoaffective disorder, bipolar type: Status: Acute Code(s): F25.0 - Schizoaffective disorder, bipolar type Plan Eriberto is a 56 y.o. male with a past medical history of schizoaffective disorder, bipolar type. He presented to [facility] on 05/07/22 due to grandiose, paranoid delusional thought content, command AH. Per pt?s gf, he had been doing well until 05/02/22, however began responding to internal stimuli and on 05/06/22 he emptied his medications down the garbage disposal. Hx of IPLOC on section 8 at [facility] M[facility] in September- November 2021. Stabilized on lithium and olanzapine. Plan: Pt signed a CV, however does not appear to understand the conditional voluntary form and felt forced into doing this, states he is actually involuntary for the admission, will reject the CV. Will continue lithium 600 mg BID and olanzapine 30 mg HS, however pt says he intends to refuse. Li level 0.53 on admission. 05/08: Continue to offer meds, pt is intrusive, bizarre, makes vague statements about harming himself or others if forced to take meds, on 5 min checks 05/09: Refused to meet, declining medication 05/10: Refuses meds, not engaging in tx 05/11: Refuses meds, not engaging in tx. Pt is now a section VII. Will change olanzapine to ODT to promote adherence. 05/13: took meds last night. irritable, labile. reporting AH. 05/14 continue tx. 05/15: not consistently taking medication. hypersexual, bizarre. threatened to stab staff with scissors (which he had in his hand) and was not cooperative in returning razor to staff after shaving. 05/16 not taking meds, sect 7 continues offering meds. 05/17 continue tx. not taking meds ,pending court. 05/18: refusing meds. exposing his genitalia in the skelton, licking the floor, throwing urine-soaked playing cards at staff. 05/19: refusing meds. ripped crowns off teeth and threw them away; smearing food on self and door; leaving urine footprints in the skelton, smelling and dripping of the stuff. given medication restraint of zyprexa 10 and benadryl 50 IM after throwing hot soup in the milieu with peers in the area. 05/20: no change in presentation. refusing medications, denies he has mental illness. 05/21: sedated from having taken zyprexa 30 PO mg this morning. pushed staff in order to access kitchen last night, got zyprexa and benadryl IM after. 2: periods of agitation. defecated in shower. pacing, trying exits. continue current mgmt. 05/23: pt refusing meds, night prior he was disruptive on unit i.e. tearing up board games, intrusive towards peers 05/24: no med changes, refusing meds 05/25: refusing meds. court . wednesday was storing feces wrapped in paper towels on his shelving to save the universe. incontinent of urine in the milieu, slow to change/wash. 05/26: took zyprexa yesterday morning, refusing lithium. irritable. you are all lesbians trying to take over the world. 05/27: refusing meds. hearing tomorrow. to staff trying to administer meds: shove it up your ass! to female staff attempting to provide care: get out, bitch. you're a dog. get on your knees. [id number] declined mtg with TERA. 05/28: taking food from others' trays and throwing it away, masturbating in milieu, calling female staff bitch, ripped up checks sheet from off of [employer]'s clipboard, urinating on floor, pouring bottle of water onto floor. committed and ordered medication. 05/29 continue tx, back up IM per court order. 05/30/2022: Has only received olanzapine for the last 1-2 days, therefore unable to clearly evaluate efficacy. Given intensity of behaviors and interactions and psychosis, Will add olanzapine in the morning time i.e. 10 mg morning and 30 mg at bedtime with 10 mg IM backup morning and bedtime. Haldol as needed. 05/31/2022: No changes to current plan. Did have medication restraint today. 06/01: no change to plan. irritable, delusional. 06/02: no change in plan or presentation. 06/03: bizarre delusions. destroyed and threw away peer's art project. misogynistic comments. 06/04: irritable, verbally aggressive, refusing PO meds and getting IMs instead. 06/05: less verbally aggressive and irritable. took PO meds this morning rather than receive IMs. 06/07 no changes to tx plan 06/08: taking IMs all weekend. less aggressive and irritable, still disorganized and delusional. 06/09: PO meds this morning. defecated in shower and engaging in feces play yesterday. poor sleep. presentation essentially unchanged from yesterday. 06/10: stable presentation. loud, droning, disorganized, incoherent. taking meds PO. continue current mgmt. 06/11: stable presentation. loud, droning, disorganized, incoherent. taking meds PO. continue current mgmt. 06/12: stable presentation. loud, droning, disorganized, incoherent. taking meds PO. continue current mgmt. 06/13: Pt refused PO meds on evening of 06/12, received IMs. no changes to tx. disorganized, psychotic. 06/14: adherent with PO meds, some inappropriate comments 06/15: off Q5 min checks, adherent with PO meds 06/16: Check lithium level patient irritable dysphoric easily agitated question med compliance question whether patient is responding to olanzapine. 06/17: no change in presentation. 06/18: no change in presentation. lithium 0.54. 06/19: continue current mgmt. per staff, taking meds with less resistance, brighter, less labile, less aggressive. informed peer he hears very loud voices and that is why he speaks so loudly and to pardon him. 06/20 Continue tx plan. 06/21 Continue tx plan. 06/22 Continue current tx plan. 06/23: no change in presentation. continue current mgmt. 06/24: no change in presentation. continue current mgmt. 06/25: agitation today on being presented with court orders, per his request. denies he has mental illness, gets angry, and verbally abuses MD. increase lithium dosing. 06/26: pt clearly angry with MD, citing information from court order. appears somewhat edematous in the face today, will follow (lithium dosing increased last night). 06/27 continue tx. 06/28 continue tx. 06/29: no change in mgmt. 06/30: no change in presentation, no change in mgmt. 07/01: continue current mgmt. slept 6 hours overnight. otherwise remains bizarre. 07/02: check lithium level. T/C adding tegretol to regimen as pt has had inadequate progress on current regimen. 07/03: lithium level remains around 0.55 despite increase in dosing. investigating use of liquid formulation with pharmacy. if liquid available will change to liquid 600 BID and check level again. if we are unable to improve clinical state with liquid lithium will add tegretol to regimen. 07/04: No changes to current treatment plan. 07/06: added 1:1 for 30 minutes post-medication to reduce possibility of cheeking/regurgitation. per pharmacy, liquid lithium has been discontinued. tegretol remains an option. 07/07: no change in presentation or plan. observe after med administration for 5 days, check lithium level. 07/08: laughing and joking with MD and SW. no longer hostile toward MD. sleeping better through the night. continues to endorse voices from afar. 07/09: i am not mentally ill, the voices tell me so. stable. as of 07/11 will have had 5 days of supervised time for 30 minutes after phlebotomist medical lab assistant and will recheck lithium level and labs. 07/10: no change in presentation. continue current mgmt. 07/11: Continue current plans and regimen 07/12: Continue current regimen and plans 07/13: lithium 0.84 on 07/11, after 5 days 1:1 for 30 minutes post-prandial. confounder of lack of psyllium supplement co-incident. will continue to observe post-prandial this week while also receiving psyllium, check lithium level again toward end of week to resolve the question. remains with poor insight into mental illness as well as with symptoms. strongly considering the addition of tegretol as pt is not likely to remain compliant for long after discharge in present state. 07/14: continue current mgmt. Patient educated on: diagnosis and medication risk/benefits Reason for contiued inpatient stay Substantial Risk for: harm to self, harm to others, inability to function and rapid decompensation Time Spent With Patient Time: Total time managing care of this patient today _25___ minutes.
[2022-07-14] MEDS: Lithium Carbonate ER 450 MG TABLET.ER 900 MG PO (22:30)
[2022-07-14 22:35] VITALS: BP 118/66; PULSE 70; TEMP 36.8; O2SAT 98
[2022-07-15 09:50] VITALS: BP 123/69; PULSE 80; RESP 20; TEMP 36.6; O2SAT 96
[2022-07-15] MEDS: OLANZapine ODT 10 MG TAB.RAPDIS 20 MG TRANSLINGU ×2 (09:54→21:53)
[2022-07-15] MEDS: Lithium Carbonate ER 300 MG TABLET.ER 600 MG PO (09:54)
--- NOTE | 2022-07-15 14:35 | P.PNPSI_ITS ---
Subjective Subjective Date of Service: 07/15/22 Reason For Visit: AH, delusional Interim History: calm, cooperative. no change in presentation. per staff, pleasant, no changes. asking to discharge. safe. slept through the night. Mental Status Exam Mental Status Exam Narrative: up and about the unit, appears adequately groomed. cooperative. no PMA/PMR. thoughts linear in brief interactions, not logical, speech less droning and loud. affect constricted, hypo-intense, non-labile. no SI/HI/VH expressed. hearing [employer] Spirits which tell him he does not have mental illness. Diagnostics Vital Signs (24Hr): Vital Signs - 24 hr 07/14/22 22:35 07/15/22 09:50 Temperature 98.3 F 97.8 F Pulse Rate 70 80 Respiratory Rate 20 Blood Pressure 118/66 123/69 Pulse Oximetry 98 96 Oxygen Delivery Method Room Air Room Air BMI result Body Mass Index 0.0 Labs 05/07/22 13:16 07/12/22 07:58 Medications Medications Current Medications Acetaminophen (Acetaminophen 325 Mg Tablet) 650 mg PO Q6H PRN PRN Reason: Headache/Pain Mild Scale (1-3) Al Hydroxide/Mg Hydroxide (Magnesium Hydrox/Alum Hydrox 30 Ml Oral.Susp) 30 ml PO Q6H PRN PRN Reason: Heartburn/Nausea Haloperidol (Haloperidol 5 Mg Tablet) 5 mg PO QID PRN PRN Reason: psychosis, agitati [place] Carbonate ([place] Carbonate Er 300 Mg Tablet.Er) 600 mg PO DAILY [facility] Last Admin: 07/15/22 09:54 Dose: 600 mg [place] Carbonate ([place] Carbonate Er 450 Mg Tablet.Er) 900 mg PO BEDTIME [facility] Last Admin: 07/14/22 22:30 Dose: 900 mg Magnesium Hydroxide (Milk Of Magnesia 30 Ml Oral.Susp) 30 ml PO DAILY PRN PRN Reason: Constipation Olanzapine (Olanzapine 10 Mg Vial) 10 mg IM BID PRN PRN Reason: refusal of PO zyprexa, per debra Last Admin: 06/12/22 22:55 Dose: 10 mg Olanzapine (Olanzapine Odt 10 Mg Tab.Rapdis) 20 mg TRANSLINGU BEDTIME [facility] Last Admin: 07/14/22 22:30 Dose: 20 mg Olanzapine (Olanzapine Odt 10 Mg Tab.Rapdis) 20 mg TRANSLINGU DAILY [facility] Last Admin: 07/15/22 09:54 Dose: 20 mg Psyllium Hydrophilic Mucilloid (Psyllium Seed 3.4 Gm Powd.Pack) 3.4 gm PO BID [facility] Last Admin: 07/15/22 09:56 Dose: 3.4 gm Trazodone HCl (Trazodone Hcl 50 Mg Tablet) 50 mg PO BEDTIME PRN PRN Reason: Insomnia Last Admin: 05/27/22 20:11 Dose: 50 mg Allergies Allergies Allergy/AdvReac Type Severity Reaction Status Date / Time bupropion [From Wellbutrin] Allergy Mild CAUSES Unverified 03/07/20 15:04 SWOLLEN HEAD tetracycline [Tetracycline] Allergy Mild UNKNOWN Unverified 03/07/20 15:04 trifluoperazine Allergy Mild UNKNOWN Unverified 03/07/20 15:04 [From Stelazine] clozapine [From Clozaril] AdvReac Mild SEIZURES,NE Unverified 03/07/20 15:04 UTROPENIA Assessment & Plan Assessment & Plan (1) Schizoaffective disorder, bipolar type: Status: Acute Code(s): F25.0 - Schizoaffective disorder, bipolar type Josr Wei is a 56 y.o. male with a past medical history of schizoaffective disorder, bipolar type. He presented to [facility] ED on 05/07/22 due to grandiose, paranoid delusional thought content, command AH. Per pt?s gf, he had been doing well until 05/02/22, however began responding to internal stimuli and on 05/06/22 he emptied his medications down the garbage disposal. Hx of IPLOC on section 8 at [facility] M3 in September- November 2021. Stabilized on lithium and olanzapine. Plan: Pt signed a CV, however does not appear to understand the conditional voluntary form and felt forced into doing this, states he is actually involuntary for the admission, will reject the CV. Will continue lithium 600 mg BID and olanzapine 30 mg HS, however pt says he intends to refuse. Li level 0.53 on admission. 05/08: Continue to offer meds, pt is intrusive, bizarre, makes vague statements about harming himself or others if forced to take meds, on 5 min checks 05/09: Refused to meet, declining medication 05/10: Refuses meds, not engaging in tx 05/11: Refuses meds, not engaging in tx. Pt is now a section VII. Will change olanzapine to ODT to promote adherence. 05/13: took meds last night. irritable, labile. reporting AH. 05/14 continue tx. 05/15: not consistently taking medication. hypersexual, bizarre. threatened to stab staff with scissors (which he had in his hand) and was not cooperative in returning razor to staff after shaving. 05/16 not taking meds, sect 7 continues offering meds. 05/17 continue tx. not taking meds ,pending court. 05/18: refusing meds. exposing his genitalia in the skelton, licking the floor, throwing urine-soaked playing cards at staff. 05/19: refusing meds. ripped crowns off teeth and threw them away; smearing food on self and door; leaving urine footprints in the skelton, smelling and dripping of the stuff. given medication restraint of zyprexa 10 and benadryl 50 IM after throwing hot soup in the milieu with peers in the area. 05/20: no change in presentation. refusing medications, denies he has mental illness. 05/21: sedated from having taken zyprexa 30 PO mg this morning. pushed staff in order to access kitchen last night, got zyprexa and benadryl IM after. 05/22: periods of agitation. defecated in shower. pacing, trying exits. continue current mgmt. 05/23: pt refusing meds, night prior he was disruptive on unit i.e. tearing up board games, intrusive towards peers 05/24: no med changes, refusing meds 05/25: refusing meds. court . wednesday was storing feces wrapped in paper towels on his shelving to save the universe. incontinent of urine in the milieu, slow to change/wash. 05/26: took zyprexa yesterday morning, refusing lithium. irritable. you are all lesbians trying to take over the world. 05/27: refusing meds. hearing tomorrow. to staff trying to administer meds: shove it up your ass! to female staff attempting to provide care: get out, bitch. you're a dog. get on your knees. [email or web address] declined mtg with TERA. 05/28: taking food from others' trays and throwing it away, masturbating in milieu, calling female staff bitch, ripped up checks sheet from off of [employer]'s clipboard, urinating on floor, pouring bottle of water onto floor. committed and ordered medication. 05/29 continue tx, back up IM per court order. 05/30/2022: Has only received olanzapine for the last 1-2 days, therefore unable to clearly evaluate efficacy. Given intensity of behaviors and interactions and psychosis, Will add olanzapine in the morning time i.e. 10 mg morning and 30 mg at bedtime with 10 mg IM backup morning and bedtime. Haldol as needed. 05/31/2022: No changes to current plan. Did have medication restraint today. 06/01: no change to plan. irritable, delusional. 06/02: no change in plan or presentation. 06/03: bizarre delusions. destroyed and threw away peer's art project. misogynistic comments. 06/04: irritable, verbally aggressive, refusing PO meds and getting IMs instead. 06/05: less verbally aggressive and irritable. took PO meds this morning rather than receive IMs. 06/07 no changes to tx plan 06/08: taking IMs all weekend. less aggressive and irritable, still disorganiz ed and delusional. 06/09: PO meds this morning. defecated in shower and engaging in feces play yesterday. poor sleep. presentation essentially unchanged from yesterday. 06/10: stable presentation. loud, droning, disorganized, incoherent. taking meds PO. continue current mgmt. 06/11: stable presentation. loud, droning, disorganized, incoherent. taking meds PO. continue current mgmt. 06/12: stable presentation. loud, droning, disorganized, incoherent. taking meds PO. continue current mgmt. 06/13: Pt refused PO meds on evening of 06/12, received IMs. no changes to tx. disorganized, psychotic. 06/14: adherent with PO meds, some inappropriate comments 06/15: off Q5 min checks, adherent with PO meds 06/16: Check lithium level patient irritable dysphoric easily agitated question med compliance question whether patient is responding to olanzapine. 06/17: no change in presentation. 06/18: no change in presentation. lithium 0.54. 06/19: continue current mgmt. per staff, taking meds with less resistance, brighter, less labile, less aggressive. informed peer he hears very loud v oices and that is why he speaks so loudly and to pardon him. 06/20 Continue tx plan. 06/21 Continue tx plan. 06/22 Continue current tx plan. 06/23: no change in presentation. continue current mgmt. 06/24: no change in presentation. continue current mgmt. 06/25: agitation today on being presented with court orders, per his request. denies he has mental illness, gets angry, and verbally abuses MD. increase lithium dosing. 06/26: pt clearly angry with MD, citing information from court order. appears leonidas ewhat edematous in the face today, will follow (lithium dosing increased last night). 06/27 continue tx. 06/28 continue tx. 06/29: no change in mgmt. 06/30: no change in presentation, no change in mgmt. 07/01: continue current mgmt. slept 6 hours overnight. otherwise remains bizarre. 07/02: check lithium level. T/C adding tegretol to regimen as pt has had inadequate progress on current regimen. 07/03: lithium level remains around 0.55 despite increase in dosing. investigating use of liquid formulation with pharmacy. if liquid available will change to liquid 600 BID and check level again. if we are unable to improve clinical state with liquid lithium will add tegretol to regimen. 07/04: No changes to current treatment plan. 07/06: added 1:1 for 30 minutes post-medication to reduce possibility of cheeking/regurgitation. per pharmacy, liquid lithium has been discontinued. tegretol remains an option. 07/07: no change in presentation or plan. observe after med administration for 5 days, check lithium level. 07/08: laughing and joking with MD and SW. no longer hostile toward MD. sleeping better through the night. continues to endorse voices from afar. 07/09: i am not mentally ill, the voices tell me so. stable. as of 07/11 will have had 5 days of supervised time for 30 minutes after medical services assistant and will recheck lithium level and labs. 07/10: no change in presentation. continue current mgmt. 07/11: Continue current plans and regimen 07/12: Continue current regimen and plans 07/13: lithium 0.84 on 07/11, after 5 days 1:1 for 30 minutes post-prandial. confounder of lack of psyllium supplement co-incident. will continue to observe post-prandial this week while also receiving psyllium, check lithium level again toward end of week to resolve the question. remains with poor insight into mental illness as well as with symptoms. strongly considering the addition of tegretol as pt is not likely to remain compliant for long after discharge in present state. 07/14: continue current mgmt. 07/15: continue current mgmt. check labs tonight. Reason for contiued inpatient stay Substantial Risk for: inability to function and rapid decompensation Time Spent With Patient Time: Total time managing care of this patient today __20__ minutes.
[2022-07-15 20:30] VITALS: BP 135/66; PULSE 79; RESP 18; TEMP 36.2; O2SAT 98
[2022-07-15 21:21] LABS: Lithium 0.67 mmol/L (0.60-1.20)
[2022-07-15 21:46] LABS: Anion Gap 14 (12-20); Blood Urea Nitrogen 17 mg/dL (9-16); Calcium 9.2 mg/dL (8.4-10.2); Carbon Dioxide 26 mmol/L (22-29); Chloride 105 mmol/L (96-108); Estimated Glomerular Filt Rate > 60; Glucose Random 83 mg/dL (60-115); Potassium 4.3 mmol/L (3.3-5.1); Sodium 141 mmol/L (135-145)
[2022-07-15] MEDS: Lithium Carbonate ER 450 MG TABLET.ER 900 MG PO (21:52)
[2022-07-16 07:00] VITALS: BMI 25.7
[2022-07-16 08:30] VITALS: BP 109/62; PULSE 73; RESP 18; TEMP 36.6; O2SAT 96
[2022-07-16] MEDS: Lithium Carbonate ER 300 MG TABLET.ER 600 MG PO (09:19)
[2022-07-16] MEDS: OLANZapine ODT 10 MG TAB.RAPDIS 20 MG TRANSLINGU ×2 (09:19→21:43)
[2022-07-16] MEDS: carBAMazepine ER 200 MG TAB.ER.12H PO ×2 (11:58→21:43)
--- NOTE | 2022-07-16 14:45 | HO.PSYCHPN ---
Subjective Subjective Date of Service: 07/16/22 Reason For Visit: AH, delusional Interim History: calm, cooperative. informed we will need to add tegretol. he does not like it but does not react explosively or venomously. 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 reiterates that he does not have mental illness, the spirits tell him so. per staff, no notable events or changes. Mental Status Exam Mental Status Exam Narrative: up and about the unit, appears adequately groomed. cooperative. no PMA/PMR. thoughts linear in brief interactions, not logical, speech less droning and loud. affect constricted, hypo-intense, min-labile. no SI/HI/VH expressed. hearing [employer] Spirits which tell him he does not have mental illness. Diagnostics Vital Signs (24Hr): Vital Signs - 24 hr 07/15/22 20:30 07/16/22 08:30 Temperature 97.2 F 97.9 F Pulse Rate 79 73 Respiratory Rate 18 18 Blood Pressure 135/66 109/62 Pulse Oximetry 98 96 Oxygen Delivery Method Room Air Room Air BMI result Body Mass Index 0.0 Labs 05/07/22 13:16 07/15/22 20:43 Labs: Laboratory Results - last 48 hr 07/15/22 07/15/22 20:43 20:43 Sodium 141 Potassium 4.3 Chloride 105 Carbon Dioxide 26 Anion Gap 14 BUN 17 H Creatinine 0.82 Estim Creat Clear Calc 152.0 Estimated GFR > 60 Random Glucose 83 Calcium 9.2 Vesper 0.67 Medications Medications Current Medications Acetaminophen (Acetaminophen 325 Mg Tablet) 650 mg PO Q6H PRN PRN Reason: Headache/Pain Mild Scale (1-3) Al Hydroxide/Mg Hydroxide (Magnesium Hydrox/Alum Hydrox 30 Ml Oral.Susp) 30 ml PO Q6H PRN PRN Reason: Heartburn/Nausea Carbamazepine (Carbamazepine Er 200 Mg Tab.Er.12h) 200 mg PO BID [facility] Last Admin: 07/16/22 11:58 Dose: 200 mg Haloperidol (Haloperidol 5 Mg Tablet) 5 mg PO QID PRN PRN Reason: psychosis, agitati [place] Carbonate ([place] Carbonate Er 300 Mg Tablet.Er) 600 mg PO DAILY [facility] Last Admin: 07/16/22 09:19 Dose: 600 mg [place] Carbonate ([place] Carbonate Er 450 Mg Tablet.Er) 900 mg PO BEDTIME [facility] Last Admin: 07/15/22 21:52 Dose: 900 mg Magnesium Hydroxide (Milk Of Magnesia 30 Ml Oral.Susp) 30 ml PO DAILY PRN PRN Reason: Constipation Olanzapine (Olanzapine 10 Mg Vial) 10 mg IM BID PRN PRN Reason: refusal of PO zyprexa, per debra Last Admin: 06/12/22 22:55 Dose: 10 mg Olanzapine (Olanzapine Odt 10 Mg Tab.Rapdis) 20 mg TRANSLINGU BEDTIME [facility] Last Admin: 07/15/22 21:53 Dose: 20 mg Olanzapine (Olanzapine Odt 10 Mg Tab.Rapdis) 20 mg TRANSLINGU DAILY [facility] Last Admin: 07/16/22 09:19 Dose: 20 mg Psyllium Hydrophilic Mucilloid (Psyllium Seed 3.4 Gm Powd.Pack) 3.4 gm PO BID [facility] Last Admin: 07/16/22 09:19 Dose: 3.4 gm Trazodone HCl (Trazodone Hcl 50 Mg Tablet) 50 mg PO BEDTIME PRN PRN Reason: Insomnia Last Admin: 05/27/22 20:11 Dose: 50 mg Allergies Allergies Allergy/AdvReac Type Severity Reaction Status Date / Time bupropion [From Wellbutrin] Allergy Mild CAUSES Unverified 03/07/20 15:04 SWOLLEN HEAD tetracycline [Tetracycline] Allergy Mild UNKNOWN Unverified 03/07/20 15:04 trifluoperazine Allergy Mild UNKNOWN Unverified 03/07/20 15:04 [From Stelazine] clozapine [From Clozaril] AdvReac Mild SEIZURES,NE Unverified 03/07/20 15:04 UTROPENIA Assessment & Plan Assessment & Plan (1) Schizoaffective disorder, bipolar type: Status: Acute Code(s): F25.0 - Schizoaffective disorder, bipolar type Plan Eriberto is a 56 y.o. male with a past medical history of schizoaffective disorder, bipolar type. He presented to [facility] ED on 05/07/22 due to grandiose, paranoid delusional thought content, command AH. Per pt?s gf, he had been doing well until 05/02/22, however began responding to internal stimuli and on 05/06/22 he emptied his medications down the garbage disposal. Hx of IPLOC on section 8 at [facility] M3 in September- November 2021. Stabilized on lithium and olanzapine. Plan: Pt signed a CV, however does not appear to understand the conditional voluntary form and felt forced into doing this, states he is actually involuntary for the admission, will reject the CV. Will continue lithium 600 mg BID and olanzapine 30 mg HS, however pt says he intends to refuse. Li level 0.53 on admission. 05/08: Continue to offer meds, pt is intrusive, bizarre, makes vague statements about harming himself or others if forced to take meds, on 5 min checks 05/09: Refused to meet, declining medication 05/10: Refuses meds, not engaging in tx 05/11: Refuses meds, not engaging in tx. Pt is now a section VII. Will change olanzapine to ODT to promote adherence. 05/13: took meds last night. irritable, labile. reporting AH. 05/14 continue tx. 05/15: not consistently taking medication. hypersexual, bizarre. threatened to stab staff with scissors (which he had in his hand) and was not cooperative in returning razor to staff after shaving. 05/16 not taking meds, sect 7 continues offering meds. 05/17 continue tx. not taking meds ,pending court. 05/18: refusing meds. exposing his genitalia in the skelton, licking the floor, throwing urine-soaked playing cards at staff. 05/19: refusing meds. ripped crowns off teeth and threw them away; smearing food on self and door; leaving urine footprints in the skelton, smelling and dripping of the stuff. given medication restraint of zyprexa 10 and benadryl 50 IM after throwing hot soup in the milieu with peers in the area. 05/20: no change in presentation. refusing medications, denies he has mental illness. 05/21: sedated from having taken zyprexa 30 PO mg this morning. pushed staff in order to access kitchen last night, got zyprexa and benadryl IM after. 05/22: periods of agitation. defecated in shower. pacing, trying exits. continue current mgmt. 05/23: pt refusing meds, night prior he was disruptive on unit i.e. tearing up board games, intrusive towards peers 05/24: no med changes, refusing meds 05/25: refusing meds. court . wednesday was storing feces wrapped in paper towels on his shelving to save the universe. incontinent of urine in the milieu, slow to change/wash. 05/26: took zyprexa yesterday morning, refusing lithium. irritable. you are all lesbians trying to take over the world. 05/27: refusing meds. hearing tomorrow. to staff trying to administer meds: shove it up your ass! to female staff attempting to provide care: get out, bitch. you're a dog. get on your knees. [id number] declined mtg with TERA. 05/28: taking food from others' trays and throwing it away, masturbating in milieu, calling female staff bitch, ripped up checks sheet from off of [employer]'s clipboard, urinating on floor, pouring bottle of water onto floor. committed and ordered medication. 05/29 continue tx, back up IM per court order. 05/30/2022: Has only received olanzapine for the last 1-2 days, therefore unable to clearly evaluate efficacy. Given intensity of behaviors and interactions and psychosis, Will add olanzapine in the morning time i.e. 10 mg morning and 30 mg at bedtime with 10 mg IM backup morning and bedtime. Haldol as needed. 05/31/2022: No changes to current plan. Did have medication restraint today. 06/01: no change to plan. irritable, delusional. 06/02: no change in plan or presentation. 06/03: bizarre delusions. destroyed and threw away peer's art project. misogynistic comments. 06/04: irritable, verbally aggressive, refusing PO meds and getting IMs instead. 06/05: less verbally aggressive and irritable. took PO meds this morning rather than receive IMs. 06/07 no changes to tx plan 06/08: taking IMs all weekend. less aggressive and irritable, still disorganized and delusional. 06/09: PO meds this morning. defecated in shower and engaging in feces play yesterday. poor sleep. presentation essentially unchanged from yesterday. 06/10: stable presentation. loud, droning, disorganized, incoherent. taking meds PO. continue current mgmt. 06/11: stable presentation. loud, droning, disorganized, incoherent. taking meds PO. continue current mgmt. 06/12: stable presentation. loud, droning, disorganized, incoherent. taking meds PO. continue current mgmt. 06/13: Pt refused PO meds on evening of 06/12, received IMs. no changes to tx. disorganized, psychotic. 06/14: adherent with PO meds, some inappropriate comments 06/15: off Q5 min checks, adherent with PO meds 06/16: Check lithium level patient irritable dysphoric easily agitated question med compliance question whether patient is responding to olanzapine. 06/17: no change in presentation. 06/18: no change in presentation. lithium 0.54. 06/19: continue current mgmt. per staff, taking meds with less resistance, brighter, less labile, less aggressive. informed peer he hears very loud voices and that is why he speaks so loudly and to pardon him. 06/20 Continue tx plan. 06/21 Continue tx plan. 06/22 Continue current tx plan. 06/23: no change in presentation. continue current mgmt. 06/24: no change in presentation. continue current mgmt. 06/25: agitation today on being presented with court orders, per his request. denies he has mental illness, gets angry, and verbally abuses MD. increase lithium dosing. 06/26: pt clearly angry with MD, citing information from court order. appears somewhat edematous in the face today, will follow (lithium dosing increased last night). 06/27 continue tx. 06/28 continue tx. 06/29: no change in mgmt. 06/30: no change in presentation, no change in mgmt. 07/01: continue current mgmt. slept 6 hours overnight. otherwise remains bizarre. 07/02: check lithium level. T/C adding tegretol to regimen as pt has had inadequate progress on current regimen. 07/03: lithium level remains around 0.55 despite increase in dosing. investigating use of liquid formulation with pharmacy. if liquid available will change to liquid 600 BID and check level again. if we are unable to improve clinical state with liquid lithium will add tegretol to regimen. 07/04: No changes to current treatment plan. 07/06: added 1:1 for 30 minutes post-medication to reduce possibility of cheeking/regurgitation. per pharmacy, liquid lithium has been discontinued. tegretol remains an option. 07/07: no change in presentation or plan. observe after med administration for 5 days, check lithium level. 07/08: laughing and joking with MD and SW. no longer hostile toward MD. sleeping better through the night. continues to endorse voices from afar. 07/09: i am not mentally ill, the voices tell me so. stable. as of 07/11 will have had 5 days of supervised time for 30 minutes after media traffic manager and will recheck lithium level and labs. 07/10: no change in presentation. continue current mgmt. 07/11: Continue current plans and regimen 07/12: Continue current regimen and plans 07/13: lithium 0.84 on 07/11, after 5 days 1:1 for 30 minutes post-prandial. confounder of lack of psyllium supplement co-incident. will continue to observe post-prandial this week while also receiving psyllium, check lithium level again toward end of week to resolve the question. remains with poor insight into mental illness as well as with symptoms. strongly considering the addition of tegretol as pt is not likely to remain compliant for long after discharge in present state. 07/14: continue current mgmt. 07/15: continue current mgmt. check labs tonight. 07/16: lithium level decreased with resumption of metamucil, indicating it is having a substantial impact on absorption. as pt is likely to take metamucil once he is home, will not alter orders. and as pt's delusions and hallucinations have not resolved with current therapy, will add tegretol to regimen as of today, at 200 mg BID. Patient educated on: diagnosis and medication risk/benefits Reason for contiued inpatient stay Substantial Risk for: inability to function and rapid decompensation Time Spent With Patient Time: Total time managing care of this patient today __35__ minutes.
[2022-07-16 15:20] LABS: MANUAL DIFF FLAG NO
[2022-07-16 15:23] LABS: Basophils Absolute Auto 0.1 X10*3/uL (0.0-0.2); Basophils Percent Auto 1.1 % (0-2); Eosinophils Absolute Auto 0.3 X10*3/uL (0.0-0.4); Eosinophils Percent Auto 3.5 % (0-4); Hematocrit 43.2 % (42.0-52.0); Hemoglobin 14.9 g/dl (14.0-18.0); Imm Gran Abs Auto 0.01 X10*3/uL (0.00-0.03); Imm Gran Pct Auto 0.1 % (0.0-0.4); Lymphocytes Absolute Auto 1.6 X10*3/uL (1.2-4.9); Lymphocytes Percent Auto 20.2 % (20-40); Mean Corpuscular HGB Conc 34.5 g/dl (31.0-36.0); Mean Corpuscular Hemoglobin 32.1 pg (27.0-33.0); Mean Corpuscular Volume 93.1 fL (80.0-98.0); Mean Platelet Volume 10.2 fL (9.4-12.4); Monocytes Absolute Auto 0.6 X10*3/uL (0.1-1.2); Monocytes Percent Auto 7.3 % (2-11); Neutrophils Absolute Auto 5.5 x10*3/uL (2.0-8.3); Neutrophils Percent Auto 67.8 % (45-73); Platelet Count 260 X10*3/uL (160-400); Red Blood Count 4.64 X10*6/uL (4.60-5.80); Red Cell Distribution Width 13.4 % (11.0-16.0); White Blood Count 8.1 X10*3/uL (4.8-10.8)
[2022-07-16 21:40] VITALS: BP 125/63; PULSE 77; RESP 18; TEMP 36.3; O2SAT 98
[2022-07-16] MEDS: Lithium Carbonate ER 450 MG TABLET.ER 900 MG PO (21:43)
[2022-07-17] MEDS: Lithium Carbonate ER 300 MG TABLET.ER 600 MG PO (08:17)
[2022-07-17] MEDS: carBAMazepine ER 200 MG TAB.ER.12H PO ×2 (08:17→21:43)
[2022-07-17] MEDS: OLANZapine ODT 10 MG TAB.RAPDIS 20 MG TRANSLINGU ×2 (08:18→21:43)
[2022-07-17 08:30] VITALS: BP 114/69; PULSE 72; RESP 20; TEMP 36.4; O2SAT 97
--- NOTE | 2022-07-17 14:52 | HO.PSYCHPN ---
Subjective Subjective Date of Service: 07/17/22 Reason For Visit: AH, delusional Interim History: seen in his room. calm and cooperative. states he will take the lithium and olanzapine for 2 years to help rid him of his senility. states he does not like tegretol as it has quashed his buzz and he can no longer be happy. no other complaints or requests. per staff, tending to ADLs. watching TV, playing cards. more pleasant and spontaneous. slept 11-6. Mental Status Exam Mental Status Exam Narrative: up and about the unit, appears adequately groomed. cooperative. no PMA/PMR. thoughts linear in brief interactions, not logical, speech less droning and loud. affect constricted, hypo-intense, non-labile. no SI/HI/AVH expressed. Diagnostics Vital Signs (24Hr): Vital Signs - 24 hr 07/16/22 21:40 07/17/22 08:30 Temperature 97.4 F 97.6 F Pulse Rate 77 72 Respiratory Rate 18 20 Blood Pressure 125/63 114/69 Pulse Oximetry 98 97 Oxygen Delivery Method Room Air Room Air BMI result Body Mass Index 25.7 Labs 07/16/22 15:14 07/15/22 20:43 Labs: Laboratory Results - last 48 hr 07/15/22 07/15/22 07/16/22 20:43 20:43 15:14 WBC 8.1 RBC 4.64 Hgb 14.9 Hct 43.2 MCV 93.1 MCH 32.1 MCHC 34.5 RDW 13.4 Plt Count 260 MPV 10.2 Immature Gran % (Auto) 0.1 Neut % (Auto) 67.8 Lymph % (Auto) 20.2 [place] % (Auto) 7.3 Eos % (Auto) 3.5 Baso % (Auto) 1.1 Lymph # (Auto) 1.6 [place] # (Auto) 0.6 Eos # (Auto) 0.3 Baso # (Auto) 0.1 Abs Immat Gran (auto) 0.01 Absolute Neuts (auto) 5.5 Absolute Nucleated RBC 0.000 Nucleated RBC % (auto) 0.0 Sodium 141 Potassium 4.3 Chloride 105 Carbon Dioxide 26 Anion Gap 14 BUN 17 H Creatinine 0.82 Estim Creat Clear Calc 152.0 Estimated GFR > 60 Random Glucose 83 Calcium 9.2 [place] 0.67 Medications Medications Current Medications Acetaminophen (Acetaminophen 325 Mg Tablet) 650 mg PO Q6H PRN PRN Reason: Headache/Pain Mild Scale (1-3) Al Hydroxide/Mg Hydroxide (Magnesium Hydrox/Alum Hydrox 30 Ml Oral.Susp) 30 ml PO Q6H PRN PRN Reason: Heartburn/Nausea Carbamazepine (Carbamazepine Er 200 Mg Tab.Er.12h) 200 mg PO BID [facility] Last Admin: 07/17/22 08:17 Dose: 200 mg Haloperidol (Haloperidol 5 Mg Tablet) 5 mg PO QID PRN PRN Reason: psychosis, agitati [place] Carbonate ([place] Carbonate Er 300 Mg Tablet.Er) 600 mg PO DAILY [facility] Last Admin: 07/17/22 08:17 Dose: 600 mg [place] Carbonate ([place] Carbonate Er 450 Mg Tablet.Er) 900 mg PO BEDTIME [facility] Last Admin: 07/16/22 21:43 Dose: 900 mg Magnesium Hydroxide (Milk Of Magnesia 30 Ml Oral.Susp) 30 ml PO DAILY PRN PRN Reason: Constipation Olanzapine (Olanzapine 10 Mg Vial) 10 mg IM BID PRN PRN Reason: refusal of PO zyprexa, per debra Last Admin: 06/12/22 22:55 Dose: 10 mg Olanzapine (Olanzapine Odt 10 Mg Tab.Rapdis) 20 mg TRANSLINGU BEDTIME [facility] Last Admin: 07/16/22 21:43 Dose: 20 mg Olanzapine (Olanzapine Odt 10 Mg Tab.Rapdis) 20 mg TRANSLINGU DAILY [facility] Last Admin: 07/17/22 08:18 Dose: 20 mg Psyllium Hydrophilic Mucilloid (Psyllium Seed 3.4 Gm Powd.Pack) 3.4 gm PO BID [facility] Last Admin: 07/17/22 08:19 Dose: 3.4 gm Trazodone HCl (Trazodone Hcl 50 Mg Tablet) 50 mg PO BEDTIME PRN PRN Reason: Insomnia Last Admin: 05/27/22 20:11 Dose: 50 mg Allergies Allergies Allergy/AdvReac Type Severity Reaction Status Date / Time bupropion [From Wellbutrin] Allergy Mild CAUSES Unverified 03/07/20 15:04 SWOLLEN HEAD tetracycline [Tetracycline] Allergy Mild UNKNOWN Unverified 03/07/20 15:04 trifluoperazine Allergy Mild UNKNOWN Unverified 03/07/20 15:04 [From Stelazine] clozapine [From Clozaril] AdvReac Mild SEIZURES,NE Unverified 03/07/20 15:04 UTROPENIA Assessment & Plan Assessment & Plan (1) Schizoaffective disorder, bipolar type: Status: Acute Code(s): F25.0 - Schizoaffective disorder, bipolar type Plan Eriberto is a 56 y.o. male with a past medical history of schizoaffective disorder, bipolar type. He presented to [facility] on 05/07/22 due to grandiose, paranoid delusional thought content, command AH. Per pt?s gf, he had been doing well until 05/02/22, however began responding to internal stimuli and on 05/06/22 he emptied his medications down the garbage disposal. Hx of IPLOC on section 8 at [facility] in September- November 2021. Stabilized on lithium and olanzapine. Plan: Pt signed a CV, however does not appear to understand the conditional voluntary form and felt forced into doing this, states he is actually involuntary for the admission, will reject the CV. Will continue lithium 600 mg BID and olanzapine 30 mg HS, however pt says he intends to refuse. Li level 0.53 on admission. 05/08: Continue to offer meds, pt is intrusive, bizarre, makes vague statements about harming himself or others if forced to take meds, on 5 min checks 05/09: Refused to meet, declining medication 05/10: Refuses meds, not engaging in tx 05/11: Refuses meds, not engaging in tx. Pt is now a section VII. Will change olanzapine to ODT to promote adherence. 05/13: took meds last night. irritable, labile. reporting AH. 05/14 continue tx. 05/15: not consistently taking medication. hypersexual, bizarre. threatened to stab staff with scissors (which he had in his hand) and was not cooperative in returning razor to staff after shaving. 05/16 not taking meds, sect 7 continues offering meds. 05/17 continue tx. not taking meds ,pending court. 05/18: refusing meds. exposing his genitalia in the [place], licking the floor, throwing urine-soaked playing cards at staff. 05/19: refusing meds. ripped crowns off teeth and threw them away; smearing food on self and door; leaving urine footprints in the [place], smelling and dripping of the stuff. given medication restraint of zyprexa 10 and benadryl 50 IM after throwing hot soup in the milieu with peers in the area. 05/20: no change in presentation. refusing medications, denies he has mental illness. 05/21: sedated from having taken zyprexa 30 PO mg this morning. pushed staff in order to access kitchen last night, got zyprexa and benadryl IM after. 05/22: periods of agitation. defecated in shower. pacing, trying exits. continue current mgmt. 05/23: pt refusing meds, night prior he was disruptive on unit i.e. tearing up board games, intrusive towards peers 05/24: no med changes, refusing meds 05/25: refusing meds. court . wednesday was storing feces wrapped in paper towels on his shelving to save the universe. incontinent of urine in the milieu, slow to change/wash. 05/26: took zyprexa yesterday morning, refusing lithium. irritable. you are all lesbians trying to take over the world. 05/27: refusing meds. hearing tomorrow. to staff trying to administer meds: shove it up your ass! to female staff attempting to provide care: get out, bitch. you're a dog. get on your knees. [id number] declined mtg with TERA. 05/28: taking food from others' trays and throwing it away, masturbating in milieu, calling female staff bitch, ripped up checks sheet from off of [employer]'s clipboard, urinating on floor, pouring bottle of water onto floor. committed and ordered medication. 05/29 continue tx, back up IM per court order. 05/30/2022: Has only received olanzapine for the last 1-2 days, therefore unable to clearly evaluate efficacy. Given intensity of behaviors and interactions and psychosis, Will add olanzapine in the morning time i.e. 10 mg morning and 30 mg at bedtime with 10 mg IM backup morning and bedtime. Haldol as needed. 05/31/2022: No changes to current plan. Did have medication restraint today. 06/01: no change to plan. irritable, delusional. 06/02: no change in plan or presentation. 06/03: bizarre delusions. destroyed and threw away peer's art project. misogynistic comments. 06/04: irritable, verbally aggressive, refusing PO meds and getting IMs instead. 06/05: less verbally aggressive and irritable. took PO meds this morning rather than receive IMs. 06/07 no changes to tx plan 06/08: taking IMs all weekend. less aggressive and irritable, still disorganized and delusional. 06/09: PO meds this morning. defecated in shower and engaging in feces play yesterday. poor sleep. presentation essentially unchanged from yesterday. 06/10: stable presentation. loud, droning, disorganized, incoherent. taking meds PO. continue current mgmt. 06/11: stable presentation. loud, droning, disorganized, incoherent. taking meds PO. continue current mgmt. 06/12: stable presentation. loud, droning, disorganized, incoherent. taking meds PO. continue current mgmt. 06/13: Pt refused PO meds on evening of 06/12, received IMs. no changes to tx. disorganized, psychotic. 06/14: adherent with PO meds, some inappropriate comments 06/15: off Q5 min checks, adherent with PO meds 06/16: Check lithium level patient irritable dysphoric easily agitated question med compliance question whether patient is responding to olanzapine. 06/17: no change in presentation. 06/18: no change in presentation. lithium 0.54. 06/19: continue current mgmt. per staff, taking meds with less resistance, brighter, less labile, less aggressive. informed peer he hears very loud voices and that is why he speaks so loudly and to pardon him. 06/20 Continue tx plan. 06/21 Continue tx plan. 06/22 Continue current tx plan. 06/23: no change in presentation. continue current mgmt. 06/24: no change in presentation. continue current mgmt. 06/25: agitation today on being presented with court orders, per his request. denies he has mental illness, gets angry, and verbally abuses MD. increase lithium dosing. 06/26: pt clearly angry with MD, citing information from court order. appears somewhat edematous in the face today, will follow (lithium dosing increased last night). 06/27 continue tx. 06/28 continue tx. 06/29: no change in mgmt. 06/30: no change in presentation, no change in mgmt. 07/01: continue current mgmt. slept 6 hours overnight. otherwise remains bizarre. 07/02: check lithium level. T/C adding tegretol to regimen as pt has had inadequate progress on current regimen. 07/03: lithium level remains around 0.55 despite increase in dosing. investigating use of liquid formulation with pharmacy. if liquid available will change to liquid 600 BID and check level again. if we are unable to improve clinical state with liquid lithium will add tegretol to regimen. 07/04: No changes to current treatment plan. 07/06: added 1:1 for 30 minutes post-medication to reduce possibility of cheeking/regurgitation. per pharmacy, liquid lithium has been discontinued. tegretol remains an option. 07/07: no change in presentation or plan. observe after med administration for 5 days, check lithium level. 07/08: laughing and joking with MD and SW. no longer hostile toward MD. sleeping better through the night. continues to endorse voices from afar. 07/09: i am not mentally ill, the voices tell me so. stable. as of 07/11 will have had 5 days of supervised time for 30 minutes after internal medicine physician and will recheck lithium level and labs. 07/10: no change in presentation. continue current mgmt. 07/11: Continue current plans and regimen 07/12: Continue current regimen and plans 07/13: lithium 0.84 on 07/11, after 5 days 1:1 for 30 minutes post-prandial. confounder of lack of psyllium supplement co-incident. will continue to observe post-prandial this week while also receiving psyllium, check lithium level again toward end of week to resolve the question. remains with poor insight into mental illness as well as with symptoms. strongly considering the addition of tegretol as pt is not likely to remain compliant for long after discharge in present state. 07/14: continue current mgmt. 07/15: continue current mgmt. check labs tonight. 07/16: lithium level decreased with resumption of metamucil, indicating it is having a substantial impact on absorption. as pt is likely to take metamucil once he is home, will not alter orders. and as pt's delusions and hallucinations have not resolved with current therapy, will add tegretol to regimen as of today, at 200 mg BID. 07/17: uncharacteristically, pt says he will take the lithium and zyprexa for 2 years. he does not like the tegretol, which he feels has taken away his buzz and on which he cannot be happy. continue current mgmt. Reason for contiued inpatient stay Substantial Risk for: inability to function and rapid decompensation Time Spent With Patient Time: Total time managing care of this patient today __25__ minutes.
[2022-07-17 20:18] VITALS: BP 122/68; PULSE 72; RESP 16; TEMP 36.8; O2SAT 96
[2022-07-17] MEDS: Lithium Carbonate ER 450 MG TABLET.ER 900 MG PO (21:43)
[2022-07-18 10:00] VITALS: BP 121/61; PULSE 76; RESP 16; TEMP 36.6; O2SAT 95
[2022-07-18] MEDS: carBAMazepine ER 200 MG TAB.ER.12H PO ×2 (10:01→22:15)
[2022-07-18] MEDS: OLANZapine ODT 10 MG TAB.RAPDIS 20 MG TRANSLINGU ×2 (10:02→22:15)
[2022-07-18] MEDS: Lithium Carbonate ER 300 MG TABLET.ER 600 MG PO (10:02)
--- NOTE | 2022-07-18 13:45 | HO.PSYCHPN ---
Subjective Subjective Date of Service: 07/18/22 Reason For Visit: AH, delusional Subjective Notes: Section 7 and Section 8 Interim History: The nursing staff reported the patient had been compliant with treatment he remains flat with inappropriate behavior denies suicidal ideation or homicidal ideation. On interview the patient stated that the medications are taking out his happiness. A agreed to review his medications. It seems that the patient does not have insight into his condition. Mental Status Exam Mental Status Exam Patient Appearance: Appropriate Patient Orientation: Person, Place and Situation Level of Consciousness: Awake Patient Behavior: Guarded and Passive Mood Description: Withdrawn Affect Description: Blunted Ability to Follow Directions: Fair Speech Pattern: Clear Hallucinations: None Delusions: Not Present Thought Process: Linear Thought Content: positive for [employer] Judgement: Poor Diagnostics Vital Signs (24Hr): Vital Signs - 24 hr 07/17/22 20:18 07/18/22 10:00 Temperature 98.3 F 97.9 F Pulse Rate 72 76 Respiratory Rate 16 16 Blood Pressure 122/68 121/61 Pulse Oximetry 96 95 Oxygen Delivery Method Room Air Room Air BMI result Body Mass Index 25.7 Labs 07/16/22 15:14 07/15/22 20:43 Labs: Laboratory Results - last 48 hr 07/16/22 15:14 WBC 8.1 RBC 4.64 Hgb 14.9 Hct 43.2 MCV 93.1 MCH 32.1 MCHC 34.5 RDW 13.4 Plt Count 260 MPV 10.2 Immature Gran % (Auto) 0.1 Neut % (Auto) 67.8 Lymph % (Auto) 20.2 [place] % (Auto) 7.3 Eos % (Auto) 3.5 Baso % (Auto) 1.1 Lymph # (Auto) 1.6 [place] # (Auto) 0.6 Eos # (Auto) 0.3 Baso # (Auto) 0.1 Abs Immat Gran (auto) 0.01 Absolute Neuts (auto) 5.5 Absolute Nucleated RBC 0.000 Nucleated RBC % (auto) 0.0 Medications Medications Current Medications Acetaminophen (Acetaminophen 325 Mg Tablet) 650 mg PO Q6H PRN PRN Reason: Headache/Pain Mild Scale (1-3) Al Hydroxide/Mg Hydroxide (Magnesium Hydrox/Alum Hydrox 30 Ml Oral.Susp) 30 ml PO Q6H PRN PRN Reason: Heartburn/Nausea Carbamazepine (Carbamazepine Er 200 Mg Tab.Er.12h) 200 mg PO BID [facility] Last Admin: 07/18/22 10:01 Dose: 200 mg Haloperidol (Haloperidol 5 Mg Tablet) 5 mg PO QID PRN PRN Reason: psychosis, agitati [place] Carbonate ([place] Carbonate Er 300 Mg Tablet.Er) 600 mg PO DAILY [facility] Last Admin: 07/18/22 10:02 Dose: 600 mg [place] Carbonate ([place] Carbonate Er 450 Mg Tablet.Er) 900 mg PO BEDTIME [facility] Last Admin: 07/17/22 21:43 Dose: 900 mg Magnesium Hydroxide (Milk Of Magnesia 30 Ml Oral.Susp) 30 ml PO DAILY PRN PRN Reason: Constipation Olanzapine (Olanzapine 10 Mg Vial) 10 mg IM BID PRN PRN Reason: refusal of PO zyprexa, per debra Last Admin: 06/12/22 22:55 Dose: 10 mg Olanzapine (Olanzapine Odt 10 Mg Tab.Rapdis) 20 mg TRANSLINGU BEDTIME ANJUM Last Admin: 07/17/22 21:43 Dose: 20 mg Olanzapine (Olanzapine Odt 10 Mg Tab.Rapdis) 20 mg TRANSLINGU DAILY [facility] Last Admin: 07/18/22 10:02 Dose: 20 mg Psyllium Hydrophilic Mucilloid (Psyllium Seed 3.4 Gm Powd.Pack) 3.4 gm PO BID [facility] Last Admin: 07/18/22 10:04 Dose: 3.4 gm Trazodone HCl (Trazodone Hcl 50 Mg Tablet) 50 mg PO BEDTIME PRN PRN Reason: Insomnia Last Admin: 05/27/22 20:11 Dose: 50 mg Allergies Allergies Allergy/AdvReac Type Severity Reaction Status Date / Time bupropion [From Wellbutrin] Allergy Mild CAUSES Unverified 03/07/20 15:04 SWOLLEN HEAD tetracycline [Tetracycline] Allergy Mild UNKNOWN Unverified 03/07/20 15:04 trifluoperazine Allergy Mild UNKNOWN Unverified 03/07/20 15:04 [From Stelazine] clozapine [From Clozaril] AdvReac Mild SEIZURES,NE Unverified 03/07/20 15:04 UTROPENIA Assessment & Plan Assessment & Plan (1) Schizoaffective disorder, bipolar type: Status: Acute Code(s): F25.0 - Schizoaffective disorder, bipolar type Josr Wei is a 56 y.o. male with a past medical history of schizoaffective disorder, bipolar type. He presented to [facility] on 05/07/22 due to grandiose, paranoid delusional thought content, command AH. Per pt?s gf, he had been doing well until 05/02/22, however began responding to internal stimuli and on 05/06/22 he emptied his medications down the garbage disposal. Hx of IPLOC on section 8 at [facility] in September- November 2021. Stabilized on lithium and olanzapine. Plan: Pt signed a CV, however does not appear to understand the conditional voluntary form and felt forced into doing this, states he is actually involuntary for the admission, will reject the CV. Will continue lithium 600 mg BID and olanzapine 30 mg HS, however pt says he intends to refuse. Li level 0.53 on admission. 05/08: Continue to offer meds, pt is intrusive, bizarre, makes vague statements about harming himself or others if forced to take meds, on 5 min checks 05/09: Refused to meet, declining medication 05/10: Refuses meds, not engaging in tx 05/11: Refuses meds, not engaging in tx. Pt is now a section VII. Will change olanzapine to ODT to promote adherence. 05/13: took meds last night. irritable, labile. reporting AH. 05/14 continue tx. 05/15: not consistently taking medication. hypersexual, bizarre. threatened to stab staff with scissors (which he had in his hand) and was not cooperative in returning razor to staff after shaving. 05/16 not taking meds, sect 7 continues offering meds. 05/17 continue tx. not taking meds ,pending court. 05/18: refusing meds. exposing his genitalia in the [place], licking the floor, throwing urine-soaked playing cards at staff. 05/19: refusing meds. ripped crowns off teeth and threw them away; smearing food on self and door; leaving urine footprints in the [place], smelling and dripping of the stuff. given medication restraint of zyprexa 10 and benadryl 50 IM after throwing hot soup in the milieu with peers in the area. 05/20: no change in presentation. refusing medications, denies he has mental illness. 05/21: sedated from having taken zyprexa 30 PO mg this morning. pushed staff in order to access kitchen last night, got zyprexa and benadryl IM after. 05/22: periods of agitation. defecated in shower. pacing, trying exits. continue current mgmt. 05/23: pt refusing meds, night prior he was disruptive on unit i.e. tearing up board games, intrusive towards peers 05/24: no med changes, refusing meds 05/25: refusing meds. court . wednesday was storing feces wrapped in paper towels on his shelving to save the universe. incontinent of urine in the milieu, slow to change/wash. 05/26: took zyprexa yesterday morning, refusing lithium. irritable. you are all lesbians trying to take over the world. 05/27: refusing meds. hearing tomorrow. to staff trying to administer meds: shove it up your ass! to female staff attempting to provide care: get out, bitch. you're a dog. get on your knees. [id number] declined mtg with TERA. 05/28: taking food from others' trays and throwing it away, masturbating in milieu, calling female staff bitch, ripped up checks sheet from off of [employer]'s clipboard, urinating on floor, pouring bottle of water onto floor. committed and ordered medication. 05/29 continue tx, back up IM per court order. 05/30/2022: Has only received olanzapine for the last 1-2 days, therefore unable to clearly evaluate efficacy. Given intensity of behaviors and interactions and psychosis, Will add olanzapine in the morning time i.e. 10 mg morning and 30 mg at bedtime with 10 mg IM backup morning and bedtime. Haldol as needed. 05/31/2022: No changes to current plan. Did have medication restraint today. 06/01: no change to plan. irritable, delusional. 06/02: no change in plan or presentation. 06/03: bizarre delusions. destroyed and threw away peer's art project. misogynistic comments. 06/04: irritable, verbally aggressive, refusing PO meds and getting IMs instead. 06/05: less verbally aggressive and irritable. took PO meds this morning rather than receive IMs. 06/07 no changes to tx plan 06/08: taking IMs all weekend. less aggressive and irritable, still disorganized and delusional. 06/09: PO meds this morning. defecated in shower and engaging in feces play yesterday. poor sleep. presentation essentially unchanged from yesterday. 06/10: stable presentation. loud, droning, disorganized, incoherent. taking meds PO. continue current mgmt. 06/11: stable presentation. loud, droning, disorganized, incoherent. taking meds PO. continue current mgmt. 06/12: stable presentation. loud, droning, disorganized, incoherent. taking meds PO. continue current mgmt. 06/13: Pt refused PO meds on evening of 06/12, received IMs. no changes to tx. disorganized, psychotic. 06/14: adherent with PO meds, some inappropriate comments 06/15: off Q5 min checks, adherent with PO meds 06/16: Check lithium level patient irritable dysphoric easily agitated question med compliance question whether patient is responding to olanzapine. 06/17: no change in presentation. 06/18: no change in presentation. lithium 0.54. 06/19: continue current mgmt. per staff, taking meds with less resistance, brighter, less labile, less aggressive. informed peer he hears very loud voices and that is why he speaks so loudly and to pardon him. 06/20 Continue tx plan. 06/21 Continue tx plan. 06/22 Continue current tx plan. 06/23: no change in presentation. continue current mgmt. 06/24: no change in presentation. continue current mgmt. 06/25: agitation today on being presented with court orders, per his request. denies he has mental illness, gets angry, and verbally abuses MD. increase lithium dosing. 06/26: pt clearly angry with MD, citing information from court order. appears somewhat edematous in the face today, will follow (lithium dosing increased last night). 06/27 continue tx. 06/28 continue tx. 06/29: no change in mgmt. 06/30: no change in presentation, no change in mgmt. 07/01: continue current mgmt. slept 6 hours overnight. otherwise remains bizarre. 07/02: check lithium level. T/C adding tegretol to regimen as pt has had inadequate progress on current regimen. 07/03: lithium level remains around 0.55 despite increase in dosing. investigating use of liquid formulation with pharmacy. if liquid available will change to liquid 600 BID and check level again. if we are unable to improve clinical state with liquid lithium will add tegretol to regimen. 07/04: No changes to current treatment plan. 07/06: added 1:1 for 30 minutes post-medication to reduce possibility of cheeking/regurgitation. per pharmacy, liquid lithium has been discontinued. tegretol remains an option. 07/07: no change in presentation or plan. observe after med administration for 5 days, check lithium level. 07/08: laughing and joking with MD and SW. no longer hostile toward MD. sleeping better through the night. continues to endorse voices from afar. 07/09: i am not mentally ill, the voices tell me so. stable. 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 07/10: no change in presentation. continue current mgmt. 07/11: Continue current plans and regimen 07/12: Continue current regimen and plans 07/13: lithium 0.84 on 07/11, after 5 days 1:1 for 30 minutes post-prandial. confounder of lack of psyllium supplement co-incident. will continue to observe post-prandial this week while also receiving psyllium, check lithium level again toward end of week to resolve the question. remains with poor insight into mental illness as well as with symptoms. strongly considering the addition of tegretol as pt is not likely to remain compliant for long after discharge in present state. 07/14: continue current mgmt. 07/15: continue current mgmt. check labs tonight. 07/16: lithium level decreased with resumption of metamucil, indicating it is having a substantial impact on absorption. as pt is likely to take metamucil once he is home, will not alter orders. and as pt's delusions and hallucinations have not resolved with current therapy, will add tegretol to regimen as of today, at 200 mg BID. 07/17: uncharacteristically, pt says he will take the lithium and zyprexa for 2 years. he does not like the tegretol, which he feels has taken away his buzz and on which he cannot be happy. continue current mgmt. 07/18 no changes Reason for contiued inpatient stay Substantial Risk for: inability to function, rapid decompensation and med/psych decompensation Time Spent With Patient Time: Total time managing care of this patient today _20___ minutes.
[2022-07-18 21:21] VITALS: BP 128/69; PULSE 73; RESP 16; TEMP 36.6; O2SAT 98
[2022-07-18] MEDS: Lithium Carbonate ER 450 MG TABLET.ER 900 MG PO (22:15)
[2022-07-19 09:00] VITALS: BP 110/58; PULSE 72; RESP 16; TEMP 36.6; O2SAT 96
[2022-07-19] MEDS: carBAMazepine ER 200 MG TAB.ER.12H PO ×2 (09:19→22:15)
[2022-07-19] MEDS: Lithium Carbonate ER 300 MG TABLET.ER 600 MG PO (09:19)
[2022-07-19] MEDS: OLANZapine ODT 10 MG TAB.RAPDIS 20 MG TRANSLINGU ×2 (09:19→22:15)
--- NOTE | 2022-07-19 12:28 | P.PNPSI_ITS ---
Subjective Subjective Date of Service: 07/19/22 Reason For Visit: AH, delusional Subjective Notes: Section 7 and Section 8 Interim History: The nursing staff reported the patient had been watching TV white flat he stated that the medications make him less happy. On interview the patient denies new symptoms. Mental Status Exam Mental Status Exam Patient Appearance: Appropriate Patient Orientation: Person and Situation Level of Consciousness: Awake and Appropriate Patient Behavior: Guarded and Passive Mood Description: Withdrawn Affect Description: Constricted Ability to Follow Directions: Good Speech Pattern: Clear Hallucinations: None Delusions: Paranoid Ideation Thought Process: Linear and Evasive Thought Content: positive for [place], positive for Circumstantial and positive for Poverty of Content Judgement: Poor Diagnostics Vital Signs (24Hr): Vital Signs - 24 hr 07/18/22 21:21 07/19/22 09:00 Temperature 97.8 F 98 F Pulse Rate 73 72 Respiratory Rate 16 16 Blood Pressure 128/69 110/58 L Pulse Oximetry 98 96 Oxygen Delivery Method Room Air Room Air BMI result Body Mass Index 25.7 Labs 07/16/22 15:14 07/15/22 20:43 Medications Medications Current Medications Acetaminophen (Acetaminophen 325 Mg Tablet) 650 mg PO Q6H PRN PRN Reason: Headache/Pain Mild Scale (1-3) Al Hydroxide/Mg Hydroxide (Magnesium Hydrox/Alum Hydrox 30 Ml Oral.Susp) 30 ml PO Q6H PRN PRN Reason: Heartburn/Nausea Carbamazepine (Carbamazepine Er 200 Mg Tab.Er.12h) 200 mg PO BID [facility] Last Admin: 07/19/22 09:19 Dose: 200 mg Haloperidol (Haloperidol 5 Mg Tablet) 5 mg PO QID PRN PRN Reason: psychosis, agitati [place] Carbonate ([place] Carbonate Er 300 Mg Tablet.Er) 600 mg PO DAILY [facility] Last Admin: 07/19/22 09:19 Dose: 600 mg [place] Carbonate ([place] Carbonate Er 450 Mg Tablet.Er) 900 mg PO BEDTIME [facility] Last Admin: 07/18/22 22:15 Dose: 900 mg Magnesium Hydroxide (Milk Of Magnesia 30 Ml Oral.Susp) 30 ml PO DAILY PRN PRN Reason: Constipation Olanzapine (Olanzapine 10 Mg Vial) 10 mg IM BID PRN PRN Reason: refusal of PO zyprexa, per debra Last Admin: 06/12/22 22:55 Dose: 10 mg Olanzapine (Olanzapine Odt 10 Mg Tab.Rapdis) 20 mg TRANSLINGU BEDTIME [facility] Last Admin: 07/18/22 22:15 Dose: 20 mg Olanzapine (Olanzapine Odt 10 Mg Tab.Rapdis) 20 mg TRANSLINGU DAILY [facility] Last Admin: 07/19/22 09:19 Dose: 20 mg Psyllium Hydrophilic Mucilloid (Psyllium Seed 3.4 Gm Powd.Pack) 3.4 gm PO BID [facility] Last Admin: 07/19/22 09:19 Dose: 3.4 gm Trazodone HCl (Trazodone Hcl 50 Mg Tablet) 50 mg PO BEDTIME PRN PRN Reason: Insomnia Last Admin: 05/27/22 20:11 Dose: 50 mg Allergies Allergies Allergy/AdvReac Type Severity Reaction Status Date / Time bupropion [From Wellbutrin] Allergy Mild CAUSES Unverified 03/07/20 15:04 SWOLLEN HEAD tetracycline [Tetracycline] Allergy Mild UNKNOWN Unverified 03/07/20 15:04 trifluoperazine Allergy Mild UNKNOWN Unverified 03/07/20 15:04 [From Stelazine] clozapine [From Clozaril] AdvReac Mild SEIZURES,NE Unverified 03/07/20 15:04 UTROPENIA Assessment & Plan Assessment & Plan (1) Schizoaffective disorder, bipolar type: Status: Acute Code(s): F25.0 - Schizoaffective disorder, bipolar type Plan Eriberto is a 56 y.o. male with a past medical history of schizoaffective disorder, bipolar type. He presented to [facility] on 05/07/22 due to grandiose, paranoid delusional thought content, command AH. Per pt?s gf, he had been doing well until 05/02/22, however began responding to internal stimuli and on 05/06/22 he emptied his medications down the garbage disposal. Hx of IPLOC on section 8 at [facility] in September- November 2021. Stabilized on lithium and olanzapine. Plan: Pt signed a CV, however does not appear to understand the conditional voluntary form and felt forced into doing this, states he is actually involuntary for the admission, will reject the CV. Will continue lithium 600 mg BID and olanzapine 30 mg HS, however pt says he intends to refuse. Li level 0.53 on admission. 05/08: Continue to offer meds, pt is intrusive, bizarre, makes vague statements about harming himself or others if forced to take meds, on 5 min checks 05/09: Refused to meet, declining medication 05/10: Refuses meds, not engaging in tx 05/11: Refuses meds, not engaging in tx. Pt is now a section VII. Will change olanzapine to ODT to promote adherence. 05/13: took meds last night. irritable, labile. reporting AH. 05/14 continue tx. 05/15: not consistently taking medication. hypersexual, bizarre. threatened to stab staff with scissors (which he had in his hand) and was not cooperative in returning razor to staff after shaving. 05/16 not taking meds, sect 7 continues offering meds. 05/17 continue tx. not taking meds ,pending court. 05/18: refusing meds. exposing his genitalia in the [place], licking the floor, throwing urine-soaked playing cards at staff. 05/19: refusing meds. ripped crowns off teeth and threw them away; smearing food on self and door; leaving urine footprints in the [place], smelling and dripping of the stuff. given medication restraint of zyprexa 10 and benadryl 50 IM after throwing hot soup in the milieu with peers in the area. 05/20: no change in presentation. refusing medications, denies he has mental illness. 05/21: sedated from having taken zyprexa 30 PO mg this morning. pushed staff in order to access kitchen last night, got zyprexa and benadryl IM after. 05/22: periods of agitation. defecated in shower. pacing, trying exits. continue current mgmt. 05/23: pt refusing meds, night prior he was disruptive on unit i.e. tearing up board games, intrusive towards peers 05/24: no med changes, refusing meds 05/25: refusing meds. court . wednesday was storing feces wrapped in paper towels on his shelving to save the universe. incontinent of urine in the milieu, slow to change/wash. 05/26: took zyprexa yesterday morning, refusing lithium. irritable. you are all lesbians trying to take over the world. 05/27: refusing meds. hearing tomorrow. to staff trying to administer meds: shove it up your ass! to female staff attempting to provide care: get out, bitch. you're a dog. get on your knees. [id number] declined mtg with TERA. 05/28: taking food from others' trays and throwing it away, masturbating in milieu, calling female staff bitch, ripped up checks sheet from off of [employer]'s clipboard, urinating on floor, pouring bottle of water onto floor. committed and ordered medication. 05/29 continue tx, back up IM per court order. 05/30/2022: Has only received olanzapine for the last 1-2 days, therefore unable to clearly evaluate efficacy. Given intensity of behaviors and interactions and psychosis, Will add olanzapine in the morning time i.e. 10 mg morning and 30 mg at bedtime with 10 mg IM backup morning and bedtime. Haldol as needed. 05/31/2022: No changes to current plan. Did have medication restraint today. 06/01: no change to plan. irritable, delusional. 06/02: no change in plan or presentation. 06/03: bizarre delusions. destroyed and threw away peer's art project. misogynistic comments. 06/04: irritable, verbally aggressive, refusing PO meds and getting IMs instead. 06/05: less verbally aggressive and irritable. took PO meds this morning rather than receive IMs. 06/07 no changes to tx plan 06/08: taking IMs all weekend. less aggressive and irritable, still disorganized and delusional. 06/09: PO meds this morning. defecated in shower and engaging in feces play yesterday. poor sleep. presentation essentially unchanged from yesterday. 06/10: stable presentation. loud, droning, disorganized, incoherent. taking meds PO. continue current mgmt. 06/11: stable presentation. loud, droning, disorganized, incoherent. taking meds PO. continue current mgmt. 06/12: stable presentation. loud, droning, disorganized, incoherent. taking meds PO. continue current mgmt. 06/13: Pt refused PO meds on evening of 06/12, received IMs. no changes to tx. disorganized, psychotic. 06/14: adherent with PO meds, some inappropriate comments 06/15: off Q5 min checks, adherent with PO meds 06/16: Check lithium level patient irritable dysphoric easily agitated question med compliance question whether patient is responding to olanzapine. 06/17: no change in presentation. 06/18: no change in presentation. lithium 0.54. 06/19: continue current mgmt. per staff, taking meds with less resistance, brighter, less labile, less aggressive. informed peer he hears very loud voices and that is why he speaks so loudly and to pardon him. 06/20 Continue tx plan. 06/21 Continue tx plan. 06/22 Continue current tx plan. 06/23: no change in presentation. continue current mgmt. 06/24: no change in presentation. continue current mgmt. 06/25: agitation today on being presented with court orders, per his request. denies he has mental illness, gets angry, and verbally abuses MD. increase lithium dosing. 06/26: pt clearly angry with MD, citing information from court order. appears somewhat edematous in the face today, will follow (lithium dosing increased last night). 06/27 continue tx. 06/28 continue tx. 06/29: no change in mgmt. 06/30: no change in presentation, no change in mgmt. 07/01: continue current mgmt. slept 6 hours overnight. otherwise remains bizarre. 07/02: check lithium level. T/C adding tegretol to regimen as pt has had inadequate progress on current regimen. 07/03: lithium level remains around 0.55 despite increase in dosing. investigating use of liquid formulation with pharmacy. if liquid available will change to liquid 600 BID and check level again. if we are unable to improve clinical state with liquid lithium will add tegretol to regimen. 07/04: No changes to current treatment plan. 07/06: added 1:1 for 30 minutes post-medication to reduce possibility of cheeking/regurgitation. per pharmacy, liquid lithium has been discontinued. tegretol remains an option. 07/07: no change in presentation or plan. observe after med administration for 5 days, check lithium level. 07/08: laughing and joking with MD and SW. no longer hostile toward MD. sleeping better through the night. continues to endorse voices from afar. 07/09: i am not mentally ill, the voices tell me so. stable. 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 07/10: no change in presentation. continue current mgmt. 07/11: Continue current plans and regimen 07/12: Continue current regimen and plans 07/13: lithium 0.84 on 07/11, after 5 days 1:1 for 30 minutes post-prandial. confounder of lack of psyllium supplement co-incident. will continue to observe post-prandial this week while also receiving psyllium, check lithium level again toward end of week to resolve the question. remains with poor insight into mental illness as well as with symptoms. strongly considering the addition of tegretol as pt is not likely to remain compliant for long after discharge in present state. 07/14: continue current mgmt. 07/15: continue current mgmt. check labs tonight. 07/16: lithium level decreased with resumption of metamucil, indicating it is having a substantial impact on absorption. as pt is likely to take metamucil once he is home, will not alter orders. and as pt's delusions and hallucinations have not resolved with current therapy, will add tegretol to regimen as of today, at 200 mg BID. 07/17: uncharacteristically, pt says he will take the lithium and zyprexa for 2 years. he does not like the tegretol, which he feels has taken away his buzz and on which he cannot be happy. continue current mgmt. 07/18 no changes no changes in treatment Reason for contiued inpatient stay Substantial Risk for: inability to function, rapid decompensation and med/psych decompensation Time Spent With Patient Time: Total time managing care of this patient today _20___ minutes.
[2022-07-19 18:00] VITALS: BP 127/76; PULSE 72; RESP 16; TEMP 36.6; O2SAT 97
[2022-07-19] MEDS: Lithium Carbonate ER 450 MG TABLET.ER 900 MG PO (22:15)
[2022-07-20 09:00] VITALS: BP 109/56; PULSE 67; RESP 20; TEMP 36.8; O2SAT 96
[2022-07-20] MEDS: Lithium Carbonate ER 300 MG TABLET.ER 600 MG PO (09:34)
[2022-07-20] MEDS: OLANZapine ODT 10 MG TAB.RAPDIS 20 MG TRANSLINGU ×2 (09:35→22:37)
[2022-07-20] MEDS: carBAMazepine ER 200 MG TAB.ER.12H PO ×2 (09:35→22:37)
--- NOTE | 2022-07-20 13:38 | P.PNPSI_ITS ---
Subjective Subjective Date of Service: 07/20/22 Reason For Visit: AH, delusional Interim History: calm, cooperative. spekas to MD rather loudly and less than 6 inches from MD's face. states he would like to retract his statement on wednesday that he would take the medications for 2 years. he reports that he was pressured by one of the voices from afar to do that, and he has now reconsidered. some discussion had about the difference between the voices from af[place] and the spirits. spirits appear to enjoy some degree of infallibility, whereas the voices from af[place] are considered more as peers or other people are in terms of their reliability and authority. c/o feeling his bob has been taken away since starting tegretol. per staff, brighter, relaxed. eating, napping. social, watching TV, smiling. attending groups. up 2-3 times overnight. Mental Status Exam Mental Status Exam Narrative: up and about the unit, appears adequately groomed. cooperative. no PMA/PMR. thoughts linear in brief interactions, not logical, speech less droning, but loud at less than 6 inches from one's face. affect constricted, hypo-intense, non-labile. +AH. no SI/HI/VH expressed. Diagnostics Vital Signs (24Hr): Vital Signs - 24 hr 07/19/22 18:00 07/20/22 09:00 Temperature 98 F 98.2 F Pulse Rate 72 67 Respiratory Rate 16 20 Blood Pressure 127/76 109/56 L Pulse Oximetry 97 96 Oxygen Delivery Method Room Air Room Air BMI result Body Mass Index 25.7 Labs 07/16/22 15:14 07/15/22 20:43 Medications Medications Current Medications Acetaminophen (Acetaminophen 325 Mg Tablet) 650 mg PO Q6H PRN PRN Reason: Headache/Pain Mild Scale (1-3) Al Hydroxide/Mg Hydroxide (Magnesium Hydrox/Alum Hydrox 30 Ml Oral.Susp) 30 ml PO Q6H PRN PRN Reason: Heartburn/Nausea Carbamazepine (Carbamazepine Er 200 Mg Tab.Er.12h) 200 mg PO BID [facility] Last Admin: 07/20/22 09:35 Dose: 200 mg Haloperidol (Haloperidol 5 Mg Tablet) 5 mg PO QID PRN PRN Reason: psychosis, agitati [place] Carbonate ([place] Carbonate Er 300 Mg Tablet.Er) 600 mg PO DAILY [facility] Last Admin: 07/20/22 09:34 Dose: 600 mg [place] Carbonate ([place] Carbonate Er 450 Mg Tablet.Er) 900 mg PO BEDTIME ANJUM Last Admin: 07/19/22 22:15 Dose: 900 mg Magnesium Hydroxide (Milk Of Magnesia 30 Ml Oral.Susp) 30 ml PO DAILY PRN PRN Reason: Constipation Olanzapine (Olanzapine 10 Mg Vial) 10 mg IM BID PRN PRN Reason: refusal of PO zyprexa, per debra Last Admin: 06/12/22 22:55 Dose: 10 mg Olanzapine (Olanzapine Odt 10 Mg Tab.Rapdis) 20 mg TRANSLINGU BEDTIME ANJUM Last Admin: 07/19/22 22:15 Dose: 20 mg Olanzapine (Olanzapine Odt 10 Mg Tab.Rapdis) 20 mg TRANSLINGU DAILY ANJUM Last Admin: 07/20/22 09:35 Dose: 20 mg Psyllium Hydrophilic Mucilloid (Psyllium Seed 3.4 Gm Powd.Pack) 3.4 gm PO BID [facility] Last Admin: 07/20/22 09:35 Dose: 3.4 gm Trazodone HCl (Trazodone Hcl 50 Mg Tablet) 50 mg PO BEDTIME PRN PRN Reason: Insomnia Last Admin: 05/27/22 20:11 Dose: 50 mg Allergies Allergies Allergy/AdvReac Type Severity Reaction Status Date / Time bupropion [From Wellbutrin] Allergy Mild CAUSES Unverified 03/07/20 15:04 SWOLLEN HEAD tetracycline [Tetracycline] Allergy Mild UNKNOWN Unverified 03/07/20 15:04 trifluoperazine Allergy Mild UNKNOWN Unverified 03/07/20 15:04 [From Stelazine] clozapine [From Clozaril] AdvReac Mild SEIZURES,NE Unverified 03/07/20 15:04 UTROPENIA Assessment & Plan Assessment & Plan (1) Schizoaffective disorder, bipolar type: Status: Acute Code(s): F25.0 - Schizoaffective disorder, bipolar type Plan Eriberto is a 56 y.o. male with a past medical history of schizoaffective disorder, bipolar type. He presented to [facility] on 05[place]22 due to grandiose, paranoid delusional thought content, command AH. Per pt?s gf, he had been doing well until 05/02/22, however began responding to internal stimuli and on 05/06/22 he emptied his medications down the garbage disposal. Hx of IPLOC on section 8 at [facility] in September- November 2021. Stabilized on lithium and olanzapine. Plan: Pt signed a CV, however does not appear to understand the conditional v oluntary form and felt forced into doing this, states he is actually involuntary for the admission, will reject the CV. Will continue lithium 600 mg BID and olanzapine 30 mg HS, however pt says he intends to refuse. Li level 0.53 on admission. 05/08: Continue to offer meds, pt is intrusive, bizarre, makes vague statements about harming himself or others if forced to take meds, on 5 min checks 05/09: Refused to meet, declining medication 05/10: Refuses meds, not engaging in tx 05/11: Refuses meds, not engaging in tx. Pt is now a section VII. Will change olanzapine to ODT to promote adherence. 05/13: took meds last night. irritable, labile. reporting AH. 05/14 continue tx. 05/15: not consistently taking medication. hypersexual, bizarre. threatened to stab staff with scissors (which he had in his hand) and was not cooperative in returning razor to staff after shaving. 05/16 not taking meds, sect 7 continues offering meds. 05/17 continue tx. not taking meds ,pending court. 05/18: refusing meds. exposing his genitalia in the [place], licking the floor, throwing urine-soaked playing cards at staff. 05/19: refusing meds. ripped crowns off teeth and threw them away; smearing food on self and door; leaving urine footprints in the [place]el[place], smelling and dripping of the stuff. given medication restraint of zyprexa 10 and benadryl 50 IM after throwing hot soup in the milieu with peers in the area. 05/20: no change in presentation. refusing medications, denies he has mental illness. 05/21: sedated from having taken zyprexa 30 PO mg this morning. pushed staff in order to access kitchen last night, got zyprexa and benadryl IM after. 05/22: periods of agitation. defecated in shower. pacing, trying exits. continue current mgmt. 05/23: pt refusing meds, night prior he was disruptive on unit i.e. tearing up board games, intrusive towards peers 05/24: no med changes, refusing meds 05/25: refusing meds. court . wednesday was storing feces wrapped in paper towels on his shelving to save the universe. incontinent of urine in the milieu, slow to change/wash. 05/26: took zyprexa yesterday morning, refusing lithium. irritable. you are all lesbians trying to take over the world. 05/27: refusing meds. hearing tomorrow. to staff trying to administer meds: shove it up your ass! to female staff attempting to provide care: get out, bitch. you're a dog. get on your knees. [id number] declined mtg with TERA. 05/28: taking food from others' trays and throwing it away, masturbating in milieu, calling female staff bitch, ripped up checks sheet from off of charity: water's clipboard, urinating on floor, pouring bottle of water onto floor. committed and ordered medication. 05/29 continue tx, back up IM per court order. 05/30/2022: Has only received olanzapine for the last 1-2 days, therefore unable to clearly evaluate efficacy. Given intensity of behaviors and interactions and psychosis, Will add olanzapine in the morning time i.e. 10 mg morning and 30 mg at bedtime with 10 mg IM backup morning and bedtime. Haldol as needed. 05/31/2022: No changes to current plan. Did have medication restraint today. 06/01: no change to plan. irritable, delusional. 06/02: no change in plan or presentation. 06/03: bizarre delusions. destroyed and threw away peer's art project. misogynistic comments. 06/04: irritable, verbally aggressive, refusing PO meds and getting IMs instead. 06/05: less verbally aggressive and irritable. took PO meds this morning rather than receive IMs. 06/07 no changes to tx plan 06/08: taking IMs all weekend. less aggressive and irritable, still disorganized and delusional. 06/09: PO meds this morning. defecated in shower and engaging in feces play yesterday. poor sleep. presentation essentially unchanged from yesterday. 06/10: stable presentation. loud, droning, disorganized, incoherent. taking meds PO. continue current mgmt. 06/11: stable presentation. loud, droning, disorganized, incoherent. taking meds PO. continue current mgmt. 06/12: stable presentation. loud, droning, disorganized, incoherent. taking meds PO. continue current mgmt. 06/13: Pt refused PO meds on evening of 06/12, received IMs. no changes to tx. disorganized, psychotic. 06/14: adherent with PO meds, some inappropriate comments 06/15: off Q5 min checks, adherent with PO meds 06/16: Check lithium level patient irritable dysphoric easily agitated question med compliance question whether patient is responding to olanzapine. 06/17: no change in presentation. 06/18: no change in presentation. lithium 0.54. 06/19: continue current mgmt. per staff, taking meds with less resistance, brighter, less labile, less aggressive. informed peer he hears very loud voices and that is why he speaks so loudly and to pardon him. 06/20 Continue tx plan. 06/21 Continue tx plan. 06/22 Continue current tx plan. 06/23: no change in presentation. continue current mgmt. 06/24: no change in presentation. continue current mgmt. 06/25: agitation today on being presented with court orders, per his request. denies he has mental illness, gets angry, and verbally abuses MD. increase lithium dosing. 06/26: pt clearly angry with MD, citing information from court order. appears somewhat edematous in the face today, will follow (lithium dosing increased last night). 06/27 continue tx. 06/28 continue tx. 06/29: no change in mgmt. 06/30: no change in presentation, no change in mgmt. 07/01: continue current mgmt. slept 6 hours overnight. otherwise remains bizarre. 07/02: check lithium level. T/C adding tegretol to regimen as pt has had inadequate progress on current regimen. 07/03: lithium level remains around 0.55 despite increase in dosing. investigating use of liquid formulation with pharmacy. if liquid available will change to liquid 600 BID and check level again. if we are unable to improve clinical state with liquid lithium will add tegretol to regimen. 07/04: No changes to current treatment plan. 07/06: added 1:1 for 30 minutes post-medication to reduce possibility of cheeking/regurgitation. per pharmacy, liquid lithium has been discontinued. tegretol remains an option. 07/07: no change in presentation or plan. observe after med administration for 5 days, check lithium level. 07/08: laughing and joking with MD and SW. no longer hostile toward MD. sleeping better through the night. continues to endorse voices from afar. 07/09: i am not mentally ill, the voices tell me so. stable. as of 07/11 will have had 5 days of supervised time for 30 minutes after medical physics researcher and will recheck lithium level and labs. 07/10: no change in presentation. continue current mgmt. 07/11: Continue current plans and regimen 07/12: Continue current regimen and plans 07/13: lithium 0.84 on 07/11, after 5 days 1:1 for 30 minutes post-prandial. confounder of lack of psyllium supplement co-incident. will continue to observe post-prandial this week while also receiving psyllium, check lithium level again toward end of week to resolve the question. remains with poor insight into mental illness as well as with symptoms. strongly considering the addition of tegretol as pt is not likely to remain compliant for long after discharge in present state. 07/14: continue current mgmt. 07/15: continue current mgmt. check labs tonight. 07/16: lithium level decreased with resumption of metamucil, indicating it is having a substantial impact on absorption. as pt is likely to take metamucil once he is home, will not alter orders. and as pt's delusions and hallucina tions have not resolved with current therapy, will add tegretol to regimen as of today, at 200 mg BID. 07/17: uncharacteristically, pt says he will take the lithium and zyprexa for 2 years. he does not like the tegretol, which he feels has taken away his buzz and on which he cannot be happy. continue current mgmt. 07/18 no changes no changes in treatment 07/20: continue current mgmt. check tegretol level soon, adjust accordingly. Reason for contiued inpatient stay Substantial Risk for: inability to function and rapid decompensation Time Spent With Patient Time: Total time managing care of this patient today __20__ minutes.
[2022-07-20 20:45] VITALS: BP 119/63; PULSE 82; RESP 18; TEMP 36.7; O2SAT 97
[2022-07-20] MEDS: Lithium Carbonate ER 450 MG TABLET.ER 900 MG PO (22:37)
[2022-07-21 08:35] VITALS: BP 119/73; PULSE 75; RESP 20; TEMP 36.6; O2SAT 95
[2022-07-21] MEDS: carBAMazepine ER 200 MG TAB.ER.12H PO ×2 (09:04→21:59)
[2022-07-21] MEDS: OLANZapine ODT 10 MG TAB.RAPDIS 20 MG TRANSLINGU ×2 (09:05→21:59)
[2022-07-21] MEDS: Lithium Carbonate ER 300 MG TABLET.ER 600 MG PO (09:05)
--- NOTE | 2022-07-21 14:39 | HO.PSYCHPN ---
Subjective Subjective Date of Service: 07/21/22 Reason For Visit: AH, delusional Interim History: no change in presentation. per staff, doing puzzles and listening to music. denies psych Sx. med-compliant. slept 11 pm through 0900. Mental Status Exam Mental Status Exam Narrative: up and about the unit, appears adequately groomed. cooperative. no PMA/PMR. thoughts linear in brief interactions, speech less droning. affect constricted, hypo-intense, non-labile. no SI/HI/AVH expressed. Diagnostics Vital Signs (24Hr): Vital Signs - 24 hr 07/20/22 20:45 07/21/22 08:35 Temperature 98.1 F 97.9 F Pulse Rate 82 75 Respiratory Rate 18 20 Blood Pressure 119/63 119/73 Pulse Oximetry 97 95 Oxygen Delivery Method Room Air Room Air BMI result Body Mass Index 25.7 Labs 07/16/22 15:14 07/15/22 20:43 Medications Medications Current Medications Acetaminophen (Acetaminophen 325 Mg Tablet) 650 mg PO Q6H PRN PRN Reason: Headache/Pain Mild Scale (1-3) Al Hydroxide/Mg Hydroxide (Magnesium Hydrox/Alum Hydrox 30 Ml Oral.Susp) 30 ml PO Q6H PRN PRN Reason: Heartburn/Nausea Carbamazepine (Carbamazepine Er 200 Mg Tab.Er.12h) 200 mg PO BID [facility] Last Admin: 07/21/22 09:04 Dose: 200 mg Haloperidol (Haloperidol 5 Mg Tablet) 5 mg PO QID PRN PRN Reason: psychosis, agitati [place] Carbonate ([place] Carbonate Er 300 Mg Tablet.Er) 600 mg PO DAILY [facility] Last Admin: 07/21/22 09:05 Dose: 600 mg [place] Carbonate ([place] Carbonate Er 450 Mg Tablet.Er) 900 mg PO BEDTIME [facility] Last Admin: 07/20/22 22:37 Dose: 900 mg Magnesium Hydroxide (Milk Of Magnesia 30 Ml Oral.Susp) 30 ml PO DAILY PRN PRN Reason: Constipation Olanzapine (Olanzapine 10 Mg Vial) 10 mg IM BID PRN PRN Reason: refusal of PO zyprexa, per debra Last Admin: 06/12/22 22:55 Dose: 10 mg Olanzapine (Olanzapine Odt 10 Mg Tab.Rapdis) 20 mg TRANSLINGU BEDTIME [facility] Last Admin: 07/20/22 22:37 Dose: 20 mg Olanzapine (Olanzapine Odt 10 Mg Tab.Rapdis) 20 mg TRANSLINGU DAILY [facility] Last Admin: 07/21/22 09:05 Dose: 20 mg Psyllium Hydrophilic Mucilloid (Psyllium Seed 3.4 Gm Powd.Pack) 3.4 gm PO BID [facility] Last Admin: 07/21/22 09:04 Dose: 3.4 gm Trazodone HCl (Trazodone Hcl 50 Mg Tablet) 50 mg PO BEDTIME PRN PRN Reason: Insomnia Last Admin: 05/27/22 20:11 Dose: 50 mg Allergies Allergies Allergy/AdvReac Type Severity Reaction Status Date / Time bupropion [From Wellbutrin] Allergy Mild CAUSES Unverified 03/07/20 15:04 SWOLLEN HEAD tetracycline [Tetracycline] Allergy Mild UNKNOWN Unverified 03/07/20 15:04 trifluoperazine Allergy Mild UNKNOWN Unverified 03/07/20 15:04 [From Stelazine] clozapine [From Clozaril] AdvReac Mild SEIZURES,NE Unverified 03/07/20 15:04 UTROPENIA Assessment & Plan Assessment & Plan (1) Schizoaffective disorder, bipolar type: Status: Acute Code(s): F25.0 - Schizoaffective disorder, bipolar type Plan Eriberto is a 56 y.o. male with a past medical history of schizoaffective disorder, bipolar type. He presented to [facility] on 05/07/22 due to grandiose, paranoid delusional thought content, command AH. Per pt?s gf, he had been doing well until 05/02/22, however began responding to internal stimuli and on 05/06/22 he emptied his medications down the garbage disposal. Hx of IPLOC on section 8 at [facility] M3 in September- November 2021. Stabilized on lithium and olanzapine. Plan: Pt signed a CV, however does not appear to understand the conditional voluntary form and felt forced into doing this, states he is actually involuntary for the admission, will reject the CV. Will continue lithium 600 mg BID and olanzapine 30 mg HS, however pt says he intends to refuse. Li level 0.53 on admission. 05/08: Continue to offer meds, pt is intrusive, bizarre, makes vague statements about harming himself or others if forced to take meds, on 5 min checks 05/09: Refused to meet, declining medication 05/10: Refuses meds, not engaging in tx 05/11: Refuses meds, not engaging in tx. Pt is now a section VII. Will change olanzapine to ODT to promote adherence. 05/13: took meds last night. irritable, labile. reporting AH. 05/14 continue tx. 05/15: not consistently taking medication. hypersexual, bizarre. threatened to stab staff with scissors (which he had in his hand) and was not cooperative in returning razor to staff after shaving. 05/16 not taking meds, sect 7 continues offering meds. 05/17 continue tx. not taking meds ,pending court. 05/18: refusing meds. exposing his genitalia in the skelton, licking the floor, throwing urine-soaked playing cards at staff. 05/19: refusing meds. ripped crowns off teeth and threw them away; smearing food on self and door; leaving urine footprints in the skelton, smelling and dripping of the stuff. given medication restraint of zyprexa 10 and benadryl 50 IM after throwing hot soup in the milieu with peers in the area. 05/20: no change in presentation. refusing medications, denies he has mental illness. 05/21: sedated from having taken zyprexa 30 PO mg this morning. pushed staff in order to access kitchen last night, got zyprexa and benadryl IM after. 05/22: periods of agitation. defecated in shower. pacing, trying exits. continue current mgmt. 05/23: pt refusing meds, night prior he was disruptive on unit i.e. tearing up board games, intrusive towards peers 05/24: no med changes, refusing meds 05/25: refusing meds. court . wednesday was storing feces wrapped in paper towels on his shelving to save the universe. incontinent of urine in the milieu, slow to change/wash. 05/26: took zyprexa yesterday morning, refusing lithium. irritable. you are all lesbians trying to take over the world. 05/27: refusing meds. hearing tomorrow. to staff trying to administer meds: shove it up your ass! to female staff attempting to provide care: get out, bitch. you're a dog. get on your knees. [id number] declined mtg with TERA. 05/28: taking food from others' trays and throwing it away, masturbating in milieu, calling female staff bitch, ripped up checks sheet from off of [employer]'s clipboard, urinating on floor, pouring bottle of water onto floor. committed and ordered medication. 05/29 continue tx, back up IM per court order. 05/30/2022: Has only received olanzapine for the last 1-2 days, therefore unable to clearly evaluate efficacy. Given intensity of behaviors and interactions and psychosis, Will add olanzapine in the morning time i.e. 10 mg morning and 30 mg at bedtime with 10 mg IM backup morning and bedtime. Haldol as needed. 05/31/2022: No changes to current plan. Did have medication restraint today. 06/01: no change to plan. irritable, delusional. 06/02: no change in plan or presentation. 06/03: bizarre delusions. destroyed and threw away peer'[employer] art project. misogynistic comments. 06/04: irritable, verbally aggressive, refusing PO meds and getting IMs instead. 06/05: less verbally aggressive and irritable. took PO meds this morning rather than receive IMs. 06/07 no changes to tx plan 06/08: taking IMs all weekend. less aggressive and irritable, still disorganized and delusional. 06/09: PO meds this morning. defecated in shower and engaging in feces play yesterday. poor sleep. presentation essentially unchanged from yesterday. 06/10: stable presentation. loud, droning, disorganized, incoherent. taking meds PO. continue current mgmt. 06/11: stable presentation. loud, droning, disorganized, incoherent. taking meds PO. continue current mgmt. 06/12: stable presentation. loud, droning, disorganized, incoherent. taking meds PO. continue current mgmt. 06/13: Pt refused PO meds on evening of 06/12, received IMs. no changes to tx. disorganized, psychotic. 06/14: adherent with PO meds, some inappropriate comments 06/15: off Q5 min checks, adherent with PO meds 06/16: Check lithium level patient irritable dysphoric easily agitated question med compliance question whether patient is responding to olanzapine. 06/17: no change in presentation. 06/18: no change in presentation. lithium 0.54. 06/19: continue current mgmt. per staff, taking meds with less resistance, brighter, less labile, less aggressive. informed peer he hears very loud voices and that is why he speaks so loudly and to pardon him. 06/20 Continue tx plan. 06/21 Continue tx plan. 06/22 Continue current tx plan. 06/23: no change in presentation. continue current mgmt. 06/24: no change in presentation. continue current mgmt. 06/25: agitation today on being presented with court orders, per his request. denies he has mental illness, gets angry, and verbally abuses MD. increase lithium dosing. 06/26: pt clearly angry with MD, citing information from court order. appears somewhat edematous in the face today, will follow (lithium dosing increased last night). 06/27 continue tx. 06/28 continue tx. 06/29: no change in mgmt. 06/30: no change in presentation, no change in mgmt. 07/01: continue current mgmt. slept 6 hours overnight. otherwise remains bizarre. 07/02: check lithium level. T/C adding tegretol to regimen as pt has had inadequate progress on current regimen. 07/03: lithium level remains around 0.55 despite increase in dosing. investigating use of liquid formulation with pharmacy. if liquid available will change to liquid 600 BID and check level again. if we are unable to improve clinical state with liquid lithium will add tegretol to regimen. 07/04: No changes to current treatment plan. 07/06: added 1:1 for 30 minutes post-medication to reduce possibility of cheeking/regurgitation. per pharmacy, liquid lithium has been discontinued. tegretol remains an option. 07/07: no change in presentation or plan. observe after med administration for 5 days, check lithium level. 07/08: laughing and joking with MD and SW. no longer hostile toward MD. sleeping better through the night. continues to endorse voices from afar. 07/09: i am not mentally ill, the voices tell me so. stable. as of 07/11 will have had 5 days of supervised time for 30 minutes after emergency medical dispatcher and will recheck lithium level and labs. 07/10: no change in presentation. continue current mgmt. 07/11: Continue current plans and regimen 07/12: Continue current regimen and plans 07/13: lithium 0.84 on 07/11, after 5 days 1:1 for 30 minutes post-prandial. confounder of lack of psyllium supplement co-incident. will continue to observe post-prandial this week while also receiving psyllium, check lithium level again toward end of week to resolve the question. remains with poor insight into mental illness as well as with symptoms. strongly considering the addition of tegretol as pt is not likely to remain compliant for long after discharge in present state. 07/14: continue current mgmt. 07/15: continue current mgmt. check labs tonight. 07/16: lithium level decreased with resumption of metamucil, indicating it is having a substantial impact on absorption. as pt is likely to take metamucil once he is home, will not alter orders. and as pt's delusions and hallucinations have not resolved with current therapy, will add tegretol to regimen as of today, at 200 mg BID. 07/17: uncharacteristically, pt says he will take the lithium and zyprexa for 2 years. he does not like the tegretol, which he feels has taken away his buzz and on which he cannot be happy. continue current mgmt. 07/18 no changes no changes in treatment 07/20: continue current mgmt. check tegretol level soon, adjust accordingly. 07/21: no change in presentation. plan to check tegretol level evening. Reason for contiued inpatient stay Substantial Risk for: inability to function and rapid decompensation Time Spent With Patient Time: Total time managing care of this patient today __20__ minutes.
[2022-07-21] MEDS: Lithium Carbonate ER 450 MG TABLET.ER 900 MG PO (21:59)
[2022-07-22 06:00] VITALS: BP 134/84; PULSE 78; RESP 18; TEMP 36.6; O2SAT 95
[2022-07-22] MEDS: carBAMazepine ER 200 MG TAB.ER.12H PO ×2 (08:25→22:05)
[2022-07-22] MEDS: Lithium Carbonate ER 300 MG TABLET.ER 600 MG PO (08:26)
[2022-07-22] MEDS: OLANZapine ODT 10 MG TAB.RAPDIS 20 MG TRANSLINGU ×2 (08:26→22:05)
--- NOTE | 2022-07-22 14:11 | HO.PSYCHPN ---
Subjective Subjective Date of Service: 07/22/22 Reason For Visit: AH, delusional Interim History: no change in presentation, though perhaps continuing to trend milder. mikey FOSTER's hand today at tend of interview. agreeable to check tegretol level tomorrow evening. per staff, pleasant. limited participation. denies SI/HI/AVH. eating and sleeping. taking meds. Mental Status Exam Mental Status Exam Narrative: up and about the unit, appears adequately groomed. cooperative. no PMA/PMR. thoughts linear in brief interactions, speech less droning. affect constricted, hypo-intense, non-labile. no SI/HI/AVH expressed. Diagnostics Vital Signs (24Hr): Vital Signs - 24 hr 07/22/22 06:00 Temperature 97.8 F Pulse Rate 78 Respiratory Rate 18 Blood Pressure 134/84 Pulse Oximetry 95 Oxygen Delivery Method Room Air BMI result Body Mass Index 25.7 Labs 07/16/22 15:14 07/15/22 20:43 Medications Medications Current Medications Acetaminophen (Acetaminophen 325 Mg Tablet) 650 mg PO Q6H PRN PRN Reason: Headache/Pain Mild Scale (1-3) Al Hydroxide/Mg Hydroxide (Magnesium Hydrox/Alum Hydrox 30 Ml Oral.Susp) 30 ml PO Q6H PRN PRN Reason: Heartburn/Nausea Carbamazepine (Carbamazepine Er 200 Mg Tab.Er.12h) 200 mg PO BID [facility] Last Admin: 07/22/22 08:25 Dose: 200 mg Haloperidol (Haloperidol 5 Mg Tablet) 5 mg PO QID PRN PRN Reason: psychosis, agitati [place] Carbonate ([place] Carbon[place] Er 300 Mg Tablet.Er) 600 mg PO DAILY [facility] Last Admin: 07/22/22 08:26 Dose: 600 mg [place] Carbonate ([place] Carbon[place] Er 450 Mg Tablet.Er) 900 mg PO BEDTIME [facility] Last Admin: 07/21/22 21:59 Dose: 900 mg Magnesium Hydroxide (Milk Of Magnesia 30 Ml Oral.Susp) 30 ml PO DAILY PRN PRN Reason: Constipation Olanzapine (Olanzapine 10 Mg Vial) 10 mg IM BID PRN PRN Reason: refusal of PO zyprexa, per debra Last Admin: 06/12/22 22:55 Dose: 10 mg Olanzapine (Olanzapine Odt 10 Mg Tab.Rapdis) 20 mg TRANSLINGU BEDTIME [facility] Last Admin: 07/21/22 21:59 Dose: 20 mg Olanzapine (Olanzapine Odt 10 Mg Tab.Rapdis) 20 mg TRANSLINGU DAILY [facility] Last Admin: 07/22/22 08:26 Dose: 20 mg Psyllium Hydrophilic Mucilloid (Psyllium Seed 3.4 Gm Powd.Pack) 3.4 gm PO BID [facility] Last Admin: 07/22/22 08:27 Dose: 3.4 gm Trazodone HCl (Trazodone Hcl 50 Mg Tablet) 50 mg PO BEDTIME PRN PRN Reason: Insomnia Last Admin: 05/27/22 20:11 Dose: 50 mg Allergies Allergies Allergy/AdvReac Type Severity Reaction Status Date / Time bupropion [From Wellbutrin] Allergy Mild CAUSES Unverified 03/07/20 15:04 SWOLLEN HEAD tetracycline [Tetracycline] Allergy Mild UNKNOWN Unverified 03/07/20 15:04 trifluoperazine Allergy Mild UNKNOWN Unverified 03/07/20 15:04 [From Stelazine] clozapine [From Clozaril] AdvReac Mild SEIZURES,NE Unverified 03/07/20 15:04 UTROPENIA Assessment & Plan Assessment & Plan (1) Schizoaffective disorder, bipolar type: Status: Acute Code(s): F25.0 - Schizoaffective disorder, bipolar type Plan Eriberto is a 56 y.o. male with a past medical history of schizoaffective disorder, bipolar type. He presented to [facility] on 05/07/22 due to grandiose, paranoid delusional thought content, command AH. Per pt?s gf, he had been doing well until 05/02/22, however began responding to internal stimuli and on 05/06/22 he emptied his medications down the garbage disposal. Hx of IPLOC on section 8 at [facility] M3 in September- November 2021. Stabilized on lithium and olanzapine. Plan: Pt signed a CV, however does not appear to understand the conditional voluntary form and felt forced into doing this, states he is actually involuntary for the admission, will reject the CV. Will continue lithium 600 mg BID and olanzapine 30 mg HS, however pt says he intends to refuse. Li level 0.53 on admission. 05/08: Continue to offer meds, pt is intrusive, bizarre, makes vague statements about harming himself or others if forced to take meds, on 5 min checks 05/09: Refused to meet, declining medication 05/10: Refuses meds, not engaging in tx 05/11: Refuses meds, not engaging in tx. Pt is now a section VII. Will change olanzapine to ODT to promote adherence. 05/13: took meds last night. irritable, labile. reporting AH. 05/14 continue tx. 05/15: not consistently taking medication. hypersexual, bizarre. threatened to stab staff with scissors (which he had in his hand) and was not cooperative in returning razor to staff after shaving. 05/16 not taking meds, sect 7 continues offering meds. 05/17 continue tx. not taking meds ,pending court. 05/18: refusing meds. exposing his genitalia in the [place]el[place], licking the floor, throwing urine-soaked playing cards at staff. 05/19: refusing meds. ripped crowns off teeth and threw them away; smearing food on self and door; leaving urine footprints in the skelton, smelling and dripping of the stuff. given medication restraint of zyprexa 10 and benadryl 50 IM after throwing hot soup in the milieu with peers in the area. 05/20: no change in presentation. refusing medications, denies he has mental illness. 05/21: sedated from having taken zyprexa 30 PO mg this morning. pushed staff in order to access kitchen last night, got zyprexa and benadryl IM after. 05/22: periods of agitation. defecated in shower. pacing, trying exits. continue current mgmt. 05/23: pt refusing meds, night prior he was disruptive on unit i.e. tearing up board games, intrusive towards peers 05/24: no med changes, refusing meds 05/25: refusing meds. court . wednesday was storing feces wrapped in paper towels on his shelving to save the universe. incontinent of urine in the milieu, slow to change/wash. 05/26: took zyprexa yesterday morning, refusing lithium. irritable. you are all lesbians trying to take over the world. 05/27: refusing meds. hearing tomorrow. to staff trying to administer meds: shove it up your ass! to female staff attempting to provide care: get out, bitch. you're a dog. get on your knees. [id number] declined mtg with TERA. 05/28: taking food from others' trays and throwing it away, masturbating in milieu, calling female staff bitch, ripped up checks sheet from off of [employer]'s clipboard, urinating on floor, pouring bottle of water onto floor. committed and ordered medication. 05/29 continue tx, back up IM per court order. 05/30/2022: Has only received olanzapine for the last 1-2 days, therefore unable to clearly evaluate efficacy. Given intensity of behaviors and interactions and psychosis, Will add olanzapine in the morning time i.e. 10 mg morning and 30 mg at bedtime with 10 mg IM backup morning and bedtime. Haldol as needed. 05/31/2022: No changes to current plan. Did have medication restraint today. 06/01: no change to plan. irritable, delusional. 06/02: no change in plan or presentation. 06/03: bizarre delusions. destroyed and threw away peer's art project. misogynistic comments. 06/04: irritable, verbally aggressive, refusing PO meds and getting IMs instead. 06/05: less verbally aggressive and irritable. took PO meds this morning rather than receive IMs. 06/07 no changes to tx plan 06/08: taking IMs all weekend. less aggressive and irritable, still disorganized and delusional. 06/09: PO meds this morning. defecated in shower and engaging in feces play yesterday. poor sleep. presentation essentially unchanged from yesterday. 06/10: stable presentation. loud, droning, disorganized, incoherent. taking meds PO. continue current mgmt. 06/11: stable presentation. loud, droning, disorganized, incoherent. taking meds PO. continue current mgmt. 06/12: stable presentation. loud, droning, disorganized, incoherent. taking meds PO. continue current mgmt. 06/13: Pt refused PO meds on evening of 06/12, received IMs. no changes to tx. disorganized, psychotic. 06/14: adherent with PO meds, some inappropriate comments 06/15: off Q5 min checks, adherent with PO meds 06/16: Check lithium level patient irritable dysphoric easily agitated question med compliance question whether patient is responding to olanzapine. 06/17: no change in presentation. 06/18: no change in presentation. lithium 0.54. 06/19: continue current mgmt. per staff, taking meds with less resistance, brighter, less labile, less aggressive. informed peer he hears very loud voices and that is why he speaks so loudly and to pardon him. 06/20 Continue tx plan. 06/21 Continue tx plan. 06/22 Continue current tx plan. 06/23: no change in presentation. continue current mgmt. 06/24: no change in presentation. continue current mgmt. 06/25: agitation today on being presented with court orders, per his request. denies he has mental illness, gets angry, and verbally abuses MD. increase lithium dosing. 06/26: pt clearly angry with MD, citing information from court order. appears somewhat edematous in the face today, will follow (lithium dosing increased last night). 06/27 continue tx. 06/28 continue tx. 06/29: no change in mgmt. 06/30: no change in presentation, no change in mgmt. 07/01: continue current mgmt. slept 6 hours overnight. otherwise remains bizarre. 07/02: check lithium level. T/C adding tegretol to regimen as pt has had inadequate progress on current regimen. 07/03: lithium level remains around 0.55 despite increase in dosing. investigating use of liquid formulation with pharmacy. if liquid available will change to liquid 600 BID and check level again. if we are unable to improve clinical state with liquid lithium will add tegretol to regimen. 07/04: No changes to current treatment plan. 07/06: added 1:1 for 30 minutes post-medication to reduce possibility of cheeking/regurgitation. per pharmacy, liquid lithium has been discontinued. tegretol remains an option. 07/07: no change in presentation or plan. observe after med administration for 5 days, check lithium level. 07/08: laughing and joking with MD and SW. no longer hostile toward MD. sleeping better through the night. continues to endorse voices from afar. 1/19: i am not mentally ill, the voices tell me so. stable. as of 07/11 will have had 5 days of supervised time for 30 minutes after nuclear medicine pet ct technologist and will recheck lithium level and labs. 07/10: no change in presentation. continue current mgmt. 07/11: Continue current plans and regimen 07/12: Continue current regimen and plans 07/13: lithium 0.84 on 07/11, after 5 days 1:1 for 30 minutes post-prandial. confounder of lack of psyllium supplement co-incident. will continue to observe post-prandial this week while also receiving psyllium, check lithium level again toward end of week to resolve the question. remains with poor insight into mental illness as well as with symptoms. strongly considering the addition of tegretol as pt is not likely to remain compliant for long after discharge in present state. 07/14: continue current mgmt. 07/15: continue current mgmt. check labs tonight. 07/16: lithium level decreased with resumption of metamucil, indicating it is having a substantial impact on absorption. as pt is likely to take metamucil once he is home, will not alter orders. and as pt's delusions and hallucinations have not resolved with current therapy, will add tegretol to regimen as of today, at 200 mg BID. 07/17: uncharacteristically, pt says he will take the lithium and zyprexa for 2 years. he does not like the tegretol, which he feels has taken away his buzz and on which he cannot be happy. continue current mgmt. 07/18 no changes no changes in treatment 07/20: continue current mgmt. check tegretol level soon, adjust accordingly. 07/21: no change in presentation. plan to check tegretol level evening. 07/22: no change in presentation or plan. check tegretol tomorrow evening. Reason for contiued inpatient stay Substantial Risk for: inability to function and rapid decompensation Time Spent With Patient Time: Total time managing care of this patient today _20___ minutes.
[2022-07-22 20:58] VITALS: BP 128/76; PULSE 79; RESP 16; TEMP 36.7; O2SAT 96
[2022-07-22] MEDS: Lithium Carbonate ER 450 MG TABLET.ER 900 MG PO (22:04)
[2022-07-23 07:00] VITALS: BMI 26.2
[2022-07-23 09:30] VITALS: BP 118/67; PULSE 79; RESP 18; TEMP 36.7; O2SAT 96
[2022-07-23] MEDS: OLANZapine ODT 10 MG TAB.RAPDIS 20 MG TRANSLINGU ×2 (09:36→22:08)
[2022-07-23] MEDS: carBAMazepine ER 200 MG TAB.ER.12H PO ×2 (09:36→22:08)
[2022-07-23] MEDS: Lithium Carbonate ER 300 MG TABLET.ER 600 MG PO (09:36)
--- NOTE | 2022-07-23 14:46 | P.PNPSI_ITS ---
Subjective Subjective Date of Service: 07/23/22 Reason For Visit: AH, delusional Interim History: calm, cooperative. found sleeping in chair in milieu early afternoon. states he sometimes gets sleepy like this now being on the medications. no change in presentation otherwise. aware of labs draw tonight. per staff, pleasant, no changes. denies all Sx. eating and sleeping well. Mental Status Exam Mental Status Exam Narrative: up and about the unit, appears adequately groomed. cooperative. no PMA/PMR. thoughts linear in brief interactions, speech less droning. affect constricted, hypo-intense, non-labile. no SI/HI/AVH expressed. Diagnostics Vital Signs (24Hr): Vital Signs - 24 hr 07/22/22 20:58 07/23/22 09:30 Temperature 98.1 F 98.1 F Pulse Rate 79 79 Respiratory Rate 16 18 Blood Pressure 128/76 118/67 Pulse Oximetry 96 96 Oxygen Delivery Method Room Air Room Air BMI result Body Mass Index 26.2 Labs 07/16/22 15:14 07/15/22 20:43 Medications Medications Current Medications Acetaminophen (Acetaminophen 325 Mg Tablet) 650 mg PO Q6H PRN PRN Reason: Headache/Pain Mild Scale (1-3) Al Hydroxide/Mg Hydroxide (Magnesium Hydrox/Alum Hydrox 30 Ml Oral.Susp) 30 ml PO Q6H PRN PRN Reason: Heartburn/Nausea Carbamazepine (Carbamazepine Er 200 Mg Tab.Er.12h) 200 mg PO BID [facility] Last Admin: 07/23/22 09:36 Dose: 200 mg Haloperidol (Haloperidol 5 Mg Tablet) 5 mg PO QID PRN PRN Reason: psychosis, agitati [place] Carbonate ([place] Carbonate Er 300 Mg Tablet.Er) 600 mg PO DAILY [facility] Last Admin: 07/23/22 09:36 Dose: 600 mg [place] Carbonate ([place] Carbonate Er 450 Mg Tablet.Er) 900 mg PO BEDTIME [facility] Last Admin: 07/22/22 22:04 Dose: 900 mg Magnesium Hydroxide (Milk Of Magnesia 30 Ml Oral.Susp) 30 ml PO DAILY PRN PRN Reason: Constipation Olanzapine (Olanzapine 10 Mg Vial) 10 mg IM BID PRN PRN Reason: refusal of PO zyprexa, per debra Last Admin: 06/12/22 22:55 Dose: 10 mg Olanzapine (Olanzapine Odt 10 Mg Tab.Rapdis) 20 mg TRANSLINGU BEDTIME [facility] Last Admin: 07/22/22 22:05 Dose: 20 mg Olanzapine (Olanzapine Odt 10 Mg Tab.Rapdis) 20 mg TRANSLINGU DAILY [facility] Last Admin: 07/23/22 09:36 Dose: 20 mg Psyllium Hydrophilic Mucilloid (Psyllium Seed 3.4 Gm Powd.Pack) 3.4 gm PO BID [facility] Last Admin: 07/23/22 09:36 Dose: 3.4 gm Trazodone HCl (Trazodone Hcl 50 Mg Tablet) 50 mg PO BEDTIME PRN PRN Reason: Insomnia Last Admin: 05/27/22 20:11 Dose: 50 mg Allergies Allergies Allergy/AdvReac Type Severity Reaction Status Date / Time bupropion [From Wellbutrin] Allergy Mild CAUSES Unverified 03/07/20 15:04 SWOLLEN HEAD tetracycline [Tetracycline] Allergy Mild UNKNOWN Unverified 03/07/20 15:04 trifluoperazine Allergy Mild UNKNOWN Unverified 03/07/20 15:04 [From Stelazine] clozapine [From Clozaril] AdvReac Mild SEIZURES,NE Unverified 03/07/20 15:04 UTROPENIA Assessment & Plan Assessment & Plan (1) Schizoaffective disorder, bipolar type: Status: Acute Code(s): F25.0 - Schizoaffective disorder, bipolar type Josr Wei is a 56 y.o. male with a past medical history of schizoaffective disorder, bipolar type. He presented to [facility] on 05/07/22 due to grandiose, paranoid delusional thought content, command AH. Per pt?s gf, he had been doing well until 05/02/22, however began responding to internal stimuli and on 05/06/22 he emptied his medications down the garbage disposal. Hx of IPLOC on section [address] [facility] M3 in September- November 2021. Stabilized on lithium and olanzapine. Plan: Pt signed a CV, however does not appear to understand the conditional voluntary form and felt forced into doing this, states he is actually involuntary for the admission, will reject the CV. Will continue lithium 600 mg BID and olanzapine 30 mg HS, however pt says he intends to refuse. Li level 0.53 on admission. 05/08: Continue to offer meds, pt is intrusive, bizarre, makes vague statements about harming himself or others if forced to take meds, on 5 min checks 05/09: Refused to meet, declining medication 05/10: Refuses meds, not engaging in tx 05/11: Refuses meds, not engaging in tx. Pt is now a section VII. Will change olanzapine to ODT to promote adherence. 05/13: took meds last night. irritable, labile. reporting AH. 05/14 continue tx. 05/15: not consistently taking medication. hypersexual, bizarre. threatened to stab staff with scissors (which he had in his hand) and was not cooperative in returning razor to staff after shaving. 05/16 not taking meds, sect 7 continues offering meds. 05/17 continue tx. not taking meds ,pending court. 05/18: refusing meds. exposing his genitalia in the [place], licking the floor, throwing urine-soaked playing cards at staff. 05/19: refusing meds. ripped crowns off teeth and threw them away; smearing food on self and door; leaving urine footprints in the [place], smelling and dripping of the stuff. given medication restraint of zyprexa 10 and benadryl 50 IM after throwing hot soup in the milieu with peers in the area. 05/20: no change in presentation. refusing medications, denies he has mental illness. 05/21: sedated from having taken zyprexa 30 PO mg this morning. pushed staff in order to access kitchen last night, got zyprexa and benadryl IM after. 05/22: periods of agitation. defecated in shower. pacing, trying exits. continue current mgmt. 05/23: pt refusing meds, night prior he was disruptive on unit i.e. tearing up board games, intrusive towards peers 05/24: no med changes, refusing meds 05/25: refusing meds. court . wednesday was storing feces wrapped in paper towels on his shelving to save the universe. incontinent of urine in the milieu, slow to change/wash. 05/26: took zyprexa yesterday morning, refusing lithium. irritable. you are all lesbians trying to take over the world. 05/27: refusing meds. hearing tomorrow. to staff trying to administer meds: shove it up your ass! to female staff attempting to provide care: get out, bitch. you're a dog. get on your knees. [id number] declined mtg with TERA. 05/28: taking food from others' trays and throwing it away, masturbating in milieu, calling female staff bitch, ripped up checks sheet from off of [employer]'s clipboard, urinating on floor, pouring bottle of water onto floor. committed and ordered medication. 05/29 continue tx, back up IM per court order. 05/30/2022: Has only received olanzapine for the last 1-2 days, therefore unable to clearly evaluate efficacy. Given intensity of behaviors and interactions and psychosis, Will add olanzapine in the morning time i.e. 10 mg morning and 30 mg at bedtime with 10 mg IM backup morning and bedtime. Haldol as needed. 05/31/2022: No changes to current plan. Did have medication restraint today. 06/01: no change to plan. irritable, delusional. 06/02: no change in plan or presentation. 06/03: bizarre delusions. destroyed and threw away peer's art project. misogynistic comments. 06/04: irritable, verbally aggressive, refusing PO meds and getting IMs instead. 06/05: less verbally aggressive and irritable. took PO meds this morning rather than receive IMs. 06/07 no changes to tx plan 06/08: taking IMs all weekend. less aggressive and irritable, still disorganized and delusional. 06/09: PO meds this morning. defecated in shower and engaging in feces play yesterday. poor sleep. presentation essentially unchanged from yesterday. 06/10: stable presentation. loud, droning, disorganized, incoherent. taking meds PO. continue current mgmt. 06/11: stable presentation. loud, droning, disorganized, incoherent. taking meds PO. continue current mgmt. 06/12: stable presentation. loud, droning, disorganized, incoherent. taking meds PO. continue current mgmt. 06/13: Pt refused PO meds on evening of 06/12, received IMs. no changes to tx. disorganized, psychotic. 06/14: adherent with PO meds, some inappropriate comments 06/15: off Q5 min checks, adherent with PO meds 06/16: Check lithium level patient irritable dysphoric easily agitated question med compliance question whether patient is responding to olanzapine. 06/17: no change in presentation. 06/18: no change in presentation. lithium 0.54. 06/19: continue current mgmt. per staff, taking meds with less resistance, brighter, less labile, less aggressive. informed peer he hears very loud voices and that is why he speaks so loudly and to pardon him. 06/20 Continue tx plan. 06/21 Continue tx plan. 06/22 Continue current tx plan. 06/23: no change in presentation. continue current mgmt. 06/24: no change in presentation. continue current mgmt. 06/25: agitation today on being presented with court orders, per his request. denies he has mental illness, gets angry, and verbally abuses MD. increase lithium dosing. 06/26: pt clearly angry with MD, citing information from court order. appears somewhat edematous in the face today, will follow (lithium dosing increased last night). 06/27 continue tx. 06/28 continue tx. 06/29: no change in mgmt. 06/30: no change in presentation, no change in mgmt. 07/01: continue current mgmt. slept 6 hours overnight. otherwise remains bizarre. 07/02: check lithium level. T/C adding tegretol to regimen as pt has had inadequate progress on current regimen. 07/03: lithium level remains around 0.55 despite increase in dosing. investigating use of liquid formulation with pharmacy. if liquid available will change to liquid 600 BID and check level again. if we are unable to improve clinical state with liquid lithium will add tegretol to regimen. 07/04: No changes to current treatment plan. 07/06: added 1:1 for 30 minutes post-medication to reduce possibility of cheeking/regurgitation. per pharmacy, liquid lithium has been discontinued. tegretol remains an option. 07/07: no change in presentation or plan. observe after med administration for 5 days, check lithium level. 07/08: laughing and joking with MD and SW. no longer hostile toward MD. sleeping better through the night. continues to endorse voices from afar. 07/09: i am not mentally ill, the voices tell me so. stable. as of 07/11 will have had 5 days of supervised time for 30 minutes after medical claims manager and will recheck lithium level and labs. 07/10: no change in presentation. continue current mgmt. 07/11: Continue current plans and regimen 07/12: Continue current regimen and plans 07/13: lithium 0.84 on 07/11, after 5 days 1:1 for 30 minutes post-prandial. confounder of lack of psyllium supplement co-incident. will continue to observe post-prandial this week while also receiving psyllium, check lithium level again toward end of week to resolve the question. remains with poor insight into mental illness as well as with symptoms. strongly considering the addition of tegretol as pt is not likely to remain compliant for long after discharge in present state. 07/14: continue current mgmt. 07/15: continue current mgmt. check labs tonight. 07/16: lithium level decreased with resumption of metamucil, indicating it is having a substantial impact on absorption. as pt is likely to take metamucil once he is home, will not alter orders. and as pt's delusions and hallucinations have not resolved with current therapy, will add tegretol to regimen as of today, at 200 mg BID. 07/17: uncharacteristically, pt says he will take the lithium and zyprexa for 2 years. he does not like the tegretol, which he feels has taken away his buzz and on which he cannot be happy. continue current mgmt. 07/18 no changes no changes in treatment 07/20: continue current mgmt. check tegretol level soon, adjust accordingly. 07/21: no change in presentation. plan to check tegretol level evening. 07/22: no change in presentation or plan. check tegretol tomorrow evening. 07/23: no change. check labs tonight. Reason for contiued inpatient stay Substantial Risk for: inability to function and rapid decompensation Time Spent With Patient Time: Total time managing care of this patient today __20__ minutes.
[2022-07-23 18:00] VITALS: BP 128/69; PULSE 77; RESP 16; TEMP 36.6; O2SAT 97
[2022-07-23 20:11] LABS: MANUAL DIFF FLAG NO
[2022-07-23 20:13] LABS: Basophils Absolute Auto 0.1 X10*3/uL (0.0-0.2); Basophils Percent Auto 1.1 % (0-2); Eosinophils Absolute Auto 0.5 X10*3/uL (0.0-0.4); Eosinophils Percent Auto 6.5 % (0-4); Hematocrit 43.8 % (42.0-52.0); Imm Gran Abs Auto 0.01 X10*3/uL (0.00-0.03); Imm Gran Pct Auto 0.1 % (0.0-0.4); Lymphocytes Absolute Auto 1.9 X10*3/uL (1.2-4.9); Lymphocytes Percent Auto 26.6 % (20-40); Mean Corpuscular HGB Conc 34.2 g/dl (31.0-36.0); Mean Corpuscular Hemoglobin 32.2 pg (27.0-33.0); Mean Platelet Volume 10.8 fL (9.4-12.4); Monocytes Absolute Auto 0.7 X10*3/uL (0.1-1.2); Monocytes Percent Auto 9.6 % (2-11); Neutrophils Absolute Auto 4.1 x10*3/uL (2.0-8.3); Neutrophils Percent Auto 56.1 % (45-73); Platelet Count 257 X10*3/uL (160-400); Red Blood Count 4.66 X10*6/uL (4.60-5.80); Red Cell Distribution Width 13.4 % (11.0-16.0); White Blood Count 7.3 X10*3/uL (4.8-10.8)
[2022-07-23 20:35] LABS: Alanine Aminotransferase 27 U/L (0-40); Albumin Level 4.2 g/dL (3.5-5.0); Alkaline Phosphatase 61 U/L (39-117); Anion Gap 13 (12-20); Aspartate Amino Transferase 21 U/L (5-37); Bilirubin Direct < 0.2 mg/dL (0.0-0.5); Bilirubin Total 0.2 mg/dL (0.0-1.0); Blood Urea Nitrogen 18 mg/dL (9-16); Calcium 9.1 mg/dL (8.4-10.2); Carbon Dioxide 24 mmol/L (22-29); Chloride 107 mmol/L (96-108); Creatinine Clr Calc Pharmacy 113.6; Estimated Glomerular Filt Rate > 60; Glucose Random 91 mg/dL (60-115); Potassium 4.4 mmol/L (3.3-5.1); Sodium 140 mmol/L (135-145); Total Protein 6.6 g/dL (6.5-8.0)
[2022-07-23] MEDS: Lithium Carbonate ER 450 MG TABLET.ER 900 MG PO (22:08)
--- NOTE | 2022-07-24 03:17 | PC.NURSE ---
reported earlier in shift ''the spirits tell me when I get discharged to take medications for 3 days then stop'' ''it's what I'm going to do, I'm being forced to take medications''
[2022-07-24 08:00] VITALS: BP 115/60; PULSE 75; TEMP 36.5; O2SAT 97
[2022-07-24] MEDS: carBAMazepine ER 200 MG TAB.ER.12H PO (08:41)
[2022-07-24] MEDS: OLANZapine ODT 10 MG TAB.RAPDIS 20 MG TRANSLINGU ×2 (08:42→21:40)
[2022-07-24] MEDS: Lithium Carbonate ER 300 MG TABLET.ER 600 MG PO (08:43)
--- NOTE | 2022-07-24 15:51 | P.PNPSI_ITS ---
Subjective Subjective Date of Service: 07/24/22 Reason For Visit: AH, delusional Interim History: lab results reviewed with pt. MD informs pt of need to increase tegretol, which pt accepts in resignation. no other complaints or requests. per staff, pleasant, no changes. Mental Status Exam Mental Status Exam Narrative: up and about the unit, appears adequately groomed. cooperative. no PMA/PMR. thoughts linear in brief interactions, speech less droning. affect constricted, hypo-intense, non-labile. no SI/HI/AVH expressed. Diagnostics Vital Signs (24Hr): Vital Signs - 24 hr 07/23/22 18:00 07/24/22 08:00 Temperature 97.8 F 97.7 F Pulse Rate 77 75 Respiratory Rate 16 Blood Pressure 128/69 115/60 Pulse Oximetry 97 97 Oxygen Delivery Method Room Air Room Air BMI result Body Mass Index 26.2 Labs 07/23/22 20:00 07/23/22 20:00 Labs: Laboratory Results - last 48 hr 07/23/22 07/23/22 07/23/22 20:00 20:00 20:00 WBC 7.3 RBC 4.66 Hgb 15.0 Hct 43.8 MCV 94.0 MCH 32.2 MCHC 34.2 RDW 13.4 Plt Count 257 MPV 10.8 Immature Gran % (Auto) 0.1 Neut % (Auto) 56.1 Lymph % (Auto) 26.6 Mineral % (Auto) 9.6 Eos % (Auto) 6.5 H Baso % (Auto) 1.1 Lymph # (Auto) 1.9 Mineral # (Auto) 0.7 Eos # (Auto) 0.5 H Baso # (Auto) 0.1 Abs Immat Gran (auto) 0.01 Absolute Neuts (auto) 4.1 Absolute Nucleated RBC 0.000 Nucleated RBC % (auto) 0.0 Sodium 140 Potassium 4.4 Chloride 107 Carbon Dioxide 24 Anion Gap 13 BUN 18 H Creatinine 0.87 Estim Creat Clear Calc 113.6 Estimated GFR > 60 Random Glucose 91 Calcium 9.1 Total Bilirubin 0.2 Direct Bilirubin < 0.2 AST 21 ALT 27 Alkaline Phosphatase 61 Total Protein 6.6 Albumin 4.2 Carbamazepine 5.0 [place] 07/23/22 20:00 WBC RBC Hgb Hct MCV MCH MCHC RDW Plt Count MPV Immature Gran % (Auto) Neut % (Auto) Lymph % (Auto) Mineral % (Auto) Eos % (Auto) Baso % (Auto) Lymph # (Auto) Mineral # (Auto) Eos # (Auto) Baso # (Auto) Abs Immat Gran (auto) Absolute Neuts (auto) Absolute Nucleated RBC Nucleated RBC % (auto) Sodium Potassium Chloride Carbon Dioxide Anion Gap BUN Creatinine Estim Creat Clear Calc Estimated GFR Random Glucose Calcium Total Bilirubin Direct Bilirubin AST ALT Alkaline Phosphatase Total Protein Albumin Carbamazepine [place]on 0.70 Medications Medications Current Medications Acetaminophen (Acetaminophen 325 Mg Tablet) 650 mg PO Q6H PRN PRN Reason: Headache/Pain Mild Scale (1-3) Al Hydroxide/Mg Hydroxide (Magnesium Hydrox/Alum Hydrox 30 Ml Oral.Susp) 30 ml PO Q6H PRN PRN Reason: Heartburn/Nausea Carbamazepine (Carbamazepine Er 200 Mg Tab.Er.12h) 200 mg PO BID [facility] Last Admin: 07/24/22 08:41 Dose: 200 mg Carbamazepine (Carbamazepine Er 200 Mg Tab.Er.12h) 400 mg PO BEDTIME ANJUM Haloperidol (Haloperidol 5 Mg Tablet) 5 mg PO QID PRN PRN Reason: psychosis, agitati [place] Carbonate (Kasson Carbonate Er 300 Mg Tablet.Er) 600 mg PO DAILY [facility] Last Admin: 07/24/22 08:43 Dose: 600 mg [place] Carbonate ([place] Carbonate Er 450 Mg Tablet.Er) 900 mg PO BEDTIME [facility] Last Admin: 07/23/22 22:08 Dose: 900 mg Magnesium Hydroxide (Milk Of Magnesia 30 Ml Oral.Susp) 30 ml PO DAILY PRN PRN Reason: Constipation Olanzapine (Olanzapine 10 Mg Vial) 10 mg IM BID PRN PRN Reason: refusal of PO zyprexa, per debra Last Admin: 06/12/22 22:55 Dose: 10 mg Olanzapine (Olanzapine Odt 10 Mg Tab.Rapdis) 20 mg TRANSLINGU BEDTIME [facility] Last Admin: 07/23/22 22:08 Dose: 20 mg Olanzapine (Olanzapine Odt 10 Mg Tab.Rapdis) 20 mg TRANSLINGU DAILY [facility] Last Admin: 07/24/22 08:42 Dose: 20 mg Psyllium Hydrophilic Mucilloid (Psyllium Seed 3.4 Gm Powd.Pack) 3.4 gm PO BID [facility] Last Admin: 07/24/22 08:45 Dose: 3.4 gm Trazodone HCl (Trazodone Hcl 50 Mg Tablet) 50 mg PO BEDTIME PRN PRN Reason: Insomnia Last Admin: 05/27/22 20:11 Dose: 50 mg Allergies Allergies Allergy/AdvReac Type Severity Reaction Status Date / Time bupropion [From Wellbutrin] Allergy Mild CAUSES Unverified 03/07/20 15:04 SWOLLEN HEAD tetracycline [Tetracycline] Allergy Mild UNKNOWN Unverified 03/07/20 15:04 trifluoperazine Allergy Mild UNKNOWN Unverified 03/07/20 15:04 [From Stelazine] clozapine [From Clozaril] AdvReac Mild SEIZURES,NE Unverified 03/07/20 15:04 UTROPENIA Assessment & Plan Assessment & Plan (1) Schizoaffective disorder, bipolar type: Status: Acute Code(s): F25.0 - Schizoaffective disorder, bipolar type Plan Eriberto is a 56 y.o. male with a past medical history of schizoaffective disorder, bipolar type. He presented to [facility] on [place]22 due to grandiose, paranoid delusional thought content, command AH. Per pt?s gf, he had been doing well until 05/02/22, however began responding to internal stimuli and on 05/06/22 he emptied his medications down the garbage disposal. Hx of IPLOC on section 8 at [facility] in September- November 2021. Stabilized on lithium and olanzapine. Plan: Pt signed a CV, however does not appear to understand the conditional voluntary form and felt forced into doing this, states he is actually involuntary for the admission, will reject the CV. Will continue lithium 600 mg BID and olanzapine 30 mg HS, however pt says he intends to refuse. Li level 0.53 on admission. 05/08: Continue to offer meds, pt is intrusive, bizarre, makes vague statements about harming himself or others if forced to take meds, on 5 min checks 05/09: Refused to meet, declining medication 05/10: Refuses meds, not engaging in tx 05/11: Refuses meds, not engaging in tx. Pt is now a section VII. Will change olanzapine to ODT to promote adherence. 05/13: took meds last night. irritable, labile. reporting AH. 05/14 continue tx. 05/15: not consistently taking medication. hypersexual, bizarre. threatened to stab staff with scissors (which he had in his hand) and was not cooperative in returning razor to staff after shaving. 05/16 not taking meds, sect 7 continues offering meds. 05/17 continue tx. not taking meds ,pending court. 05/18: refusing meds. exposing his genitalia in the [place], licking the floor, throwing urine-soaked playing cards at staff. 05/19: refusing meds. ripped crowns off teeth and threw them away; smearing food on self and door; leaving urine footprints in the [place]el[place], smelling and dripping of the stuff. given medication restraint of zyprexa 10 and benadryl 50 IM after throwing hot soup in the milieu with peers in the area. 05/20: no change in presentation. refusing medications, denies he has mental illness. 05/21: sedated from having taken zyprexa 30 PO mg this morning. pushed staff in order to access kitchen last night, got zyprexa and benadryl IM after. 05/22: periods of agitation. defecated in shower. pacing, trying exits. continue current mgmt. 05/23: pt refusing meds, night prior he was disruptive on unit i.e. tearing up board games, intrusive towards peers 05/24: no med changes, refusing meds 05/25: refusing meds. court . wednesday was storing feces wrapped in paper towels on his shelving to save the universe. incontinent of urine in the milieu, slow to change/wash. 05/26: took zyprexa yesterday morning, refusing lithium. irritable. you are all lesbians trying to take over the world. 05/27: refusing meds. hearing tomorrow. to staff trying to administer meds: shove it up your ass! to female staff attempting to provide care: get out, bitch. you're a dog. get on your knees. [id number] declined mtg with TERA. 05/28: taking food from others' trays and throwing it away, masturbating in milieu, calling female staff bitch, ripped up checks sheet from off of NA's clipboard, urinating on floor, pouring bottle of water onto floor. committed and ordered medication. 05/29 continue tx, back up IM per court order. 05/30/2022: Has only received olanzapine for the last 1-2 days, therefore unable to clearly evaluate efficacy. Given intensity of behaviors and interactions and psychosis, Will add olanzapine in the morning time i.e. 10 mg morning and 30 mg at bedtime with 10 mg IM backup morning and bedtime. Haldol as needed. 05/31/2022: No changes to current plan. Did have medication restraint today. 06/01: no change to plan. irritable, delusional. 06/02: no change in plan or presentation. 06/03: bizarre delusions. destroyed and threw away peer's art project. misogynistic comments. 06/04: irritable, verbally aggressive, refusing PO meds and getting IMs instead. 06/05: less verbally aggressive and irritable. took PO meds this morning rather than receive IMs. 06/07 no changes to tx plan 06/08: taking IMs all weekend. less aggressive and irritable, still disorganized and delusional. 06/09: PO meds this morning. defecated in shower and engaging in feces play yesterday. poor sleep. presentation essentially unchanged from yesterday. 06/10: stable presentation. loud, droning, disorganized, incoherent. taking meds PO. continue current mgmt. 06/11: stable presentation. loud, droning, disorganized, incoherent. taking meds PO. continue current mgmt. 06/12: stable presentation. loud, droning, disorganized, incoherent. taking meds PO. continue current mgmt. 06/13: Pt refused PO meds on evening of 06/12, received IMs. no changes to tx. disorganized, psychotic. 06/14: adherent with PO meds, some inappropriate comments 06/15: off Q5 min checks, adherent with PO meds 06/16: Check lithium level patient irritable dysphoric easily agitated question med compliance question whether patient is responding to olanzapine. 06/17: no change in presentation. 06/18: no change in presentation. lithium 0.54. 06/19: continue current mgmt. per staff, taking meds with less resistance, brighter, less labile, less aggressive. informed peer he hears very loud voices and that is why he speaks so loudly and to pardon him. 06/20 Continue tx plan. 06/21 Continue tx plan. 06/22 Continue current tx plan. 06/23: no change in presentation. continue current mgmt. 06/24: no change in presentation. continue current mgmt. 06/25: agitation today on being presented with court orders, per his request. denies he has mental illness, gets angry, and verbally abuses MD. increase lithium dosing. 06/26: pt clearly angry with MD, citing information from court order. appears somewhat edematous in the face today, will follow (lithium dosing increased last night). 06/27 continue tx. 06/28 continue tx. 06/29: no change in mgmt. 06/30: no change in presentation, no change in mgmt. 07/01: continue current mgmt. slept 6 hours overnight. otherwise remains bizarre. 07/02: check lithium level. T/C adding tegretol to regimen as pt has had inadequate progress on current regimen. 07/03: lithium level remains around 0.55 despite increase in dosing. investig ating use of liquid formulation with pharmacy. if liquid available will change to liquid 600 BID and check level again. if we are unable to improve clinical state with liquid lithium will add tegretol to regimen. 07/04: No changes to current treatment plan. 07/06: added 1:1 for 30 minutes post-medication to reduce possibility of cheeking/regurgitation. per pharmacy, liquid lithium has been discontinued. tegretol remains an option. 07/07: no change in presentation or plan. observe after med administration for 5 days, check lithium level. 07/08: laughing and joking with MD and SW. no longer hostile toward MD. sleeping better through the night. continues to endorse voices from afar. 07/09: i am not mentally ill, the voices tell me so. stable. as of 07/11 will have had 5 days of supervised time for 30 minutes after medical editor and will recheck lithium level and labs. 07/10: no change in presentation. continue current mgmt. 07/11: Continue current plans and regimen 07/12: Continue current regimen and plans 07/13: lithium 0.84 on 07/11, after 5 days 1:1 for 30 minutes post-prandial. con buddhist monk of lack of psyllium supplement co-incident. will continue to observe post-prandial this week while also receiving psyllium, check lithium level again toward end of week to resolve the question. remains with poor insight into mental illness as well as with symptoms. strongly considering the addition of tegretol as pt is not likely to remain compliant for long after discharge in present state. 07/14: continue current mgmt. 07/15: continue current mgmt. check labs tonight. 07/16: lithium level decreased with resumption of metamucil, indicating it is having a substantial impact on absorption. as pt is likely to take metamucil once he is home, will not alter orders. and as pt's delusions and hallucinations have not resolved with current therapy, will add tegretol to regimen as of today, at 200 mg BID. 07/17: uncharacteristically, pt says he will take the lithium and zyprexa for 2 years. he does not like the tegretol, which he feels has taken away his buzz and on which he cannot be happy. continue current mgmt. 07/18 no changes no changes in treatment 07/20: continue current mgmt. check tegretol level soon, adjust accordingly. 07/21: no change in presentation. plan to check tegretol level evening. 07/22: no change in presentation or plan. check tegretol tomorrow evening. 07/23: no change. check labs tonight. 07/24: tegretol 5.0, lithium 0.7 last night. increase tegretol dosing from 200 BID to 200/400, otherwise continue prior mgmt. Reason for contiued inpatient stay Substantial Risk for: rapid decompensation Time Spent With Patient Time: Total time managing care of this patient today _25___ minutes.
[2022-07-24 21:15] VITALS: BP 121/65; PULSE 78; RESP 18; TEMP 36.9; O2SAT 96
[2022-07-24] MEDS: carBAMazepine ER 200 MG TAB.ER.12H 400 MG PO (21:40)
[2022-07-24] MEDS: Lithium Carbonate ER 450 MG TABLET.ER 900 MG PO (21:40)
[2022-07-25 07:50] VITALS: BP 112/70; PULSE 76; RESP 16; TEMP 36.7; O2SAT 96
[2022-07-25] MEDS: Lithium Carbonate ER 300 MG TABLET.ER 600 MG PO (08:12)
[2022-07-25] MEDS: OLANZapine ODT 10 MG TAB.RAPDIS 20 MG TRANSLINGU ×2 (08:12→22:00)
[2022-07-25] MEDS: carBAMazepine ER 200 MG TAB.ER.12H PO (08:12)
--- NOTE | 2022-07-25 14:01 | P.PNPSI_ITS ---
Subjective Subjective Date of Service: 07/25/22 Reason For Visit: AH, delusional Interim History: states increase in tegretol went fine last night. only complaint is continued sleepiness in the morning. per staf, left eye red, swollen, discharge noted. pt declining evaluation by nurse. slept well overnight. Mental Status Exam Mental Status Exam Narrative: up and about the unit, appears adequately groomed. cooperative. no PMA/PMR. thoughts linear in brief interactions, speech less droning. affect constricted, hypo-intense, non-labile. no SI/HI/AVH expressed. Diagnostics Vital Signs (24Hr): Vital Signs - 24 hr 07/24/22 21:15 07/25/22 07:50 Temperature 98.4 F 98.1 F Pulse Rate 78 76 Respiratory Rate 18 16 Blood Pressure 121/65 112/70 Pulse Oximetry 96 96 Oxygen Delivery Method Room Air Room Air BMI result Body Mass Index 26.2 Labs 07/23/22 20:00 07/23/22 20:00 Labs: Laboratory Results - last 48 hr 07/23/22 07/23/22 07/23/22 20:00 20:00 20:00 WBC 7.3 RBC 4.66 Hgb 15.0 Hct 43.8 MCV 94.0 MCH 32.2 MCHC 34.2 RDW 13.4 Plt Count 257 MPV 10.8 Immature Gran % (Auto) 0.1 Neut % (Auto) 56.1 Lymph % (Auto) 26.6 [place] % (Auto) 9.6 Eos % (Auto) 6.5 H Baso % (Auto) 1.1 Lymph # (Auto) 1.9 [place] # (Auto) 0.7 Eos # (Auto) 0.5 H Baso # (Auto) 0.1 Abs Immat Gran (auto) 0.01 Absolute Neuts (auto) 4.1 Absolute Nucleated RBC 0.000 Nucleated RBC % (auto) 0.0 Sodium 140 Potassium 4.4 Chloride 107 Carbon Dioxide 24 Anion Gap 13 BUN 18 H Creatinine 0.87 Estim Creat Clear Calc 113.6 Estimated GFR > 60 Random Glucose 91 Calcium 9.1 Total Bilirubin 0.2 Direct Bilirubin < 0.2 AST 21 ALT 27 Alkaline Phosphatase 61 Total Protein 6.6 Albumin 4.2 Carbamazepine 5.0 Merom 07/23/22 20:00 WBC RBC Hgb Hct MCV MCH MCHC RDW Plt Count MPV Immature Gran % (Auto) Neut % (Auto) Lymph % (Auto) [place] % (Auto) Eos % (Auto) Baso % (Auto) Lymph # (Auto) [place] # (Auto) Eos # (Auto) Baso # (Auto) Abs Immat Gran (auto) Absolute Neuts (auto) Absolute Nucleated RBC Nucleated RBC % (auto) Sodium Potassium Chloride Carbon Dioxide Anion Gap BUN Creatinine Estim Creat Clear Calc Estimated GFR Random Glucose Calcium Total Bilirubin Direct Bilirubin AST ALT Alkaline Phosphatase Total Protein Albumin Carbamazepine Merom 0.70 Medications Medications Current Medications Acetaminophen (Acetaminophen 325 Mg Tablet) 650 mg PO Q6H PRN PRN Reason: Headache/Pain Mild Scale (1-3) Al Hydroxide/Mg Hydroxide (Magnesium Hydrox/Alum Hydrox 30 Ml Oral.Susp) 30 ml PO Q6H PRN PRN Reason: Heartburn/Nausea Carbamazepine (Carbamazepine Er 200 Mg Tab.Er.12h) 400 mg PO BEDTIME [facility] Last Admin: 07/24/22 21:40 Dose: 400 mg Carbamazepine (Carbamazepine Er 200 Mg Tab.Er.12h) 200 mg PO DAILY [facility] Last Admin: 07/25/22 08:12 Dose: 200 mg Haloperidol (Haloperidol 5 Mg Tablet) 5 mg PO QID PRN PRN Reason: psychosis, agitati Merom Carbonate (Merom Carbonate Er 300 Mg Tablet.Er) 600 mg PO DAILY [facility] Last Admin: 07/25/22 08:12 Dose: 600 mg Merom Carbonate (Merom Carbonate Er 450 Mg Tablet.Er) 900 mg PO BEDTIME [facility] Last Admin: 07/24/22 21:40 Dose: 900 mg Magnesium Hydroxide (Milk Of Magnesia 30 Ml Oral.Susp) 30 ml PO DAILY PRN PRN Reason: Constipation Olanzapine (Olanzapine 10 Mg Vial) 10 mg IM BID PRN PRN Reason: refusal of PO zyprexa, per debra Last Admin: 06/12/22 22:55 Dose: 10 mg Olanzapine (Olanzapine Odt 10 Mg Tab.Rapdis) 20 mg TRANSLINGU BEDTIME [facility] Last Admin: 07/24/22 21:40 Dose: 20 mg Olanzapine (Olanzapine Odt 10 Mg Tab.Rapdis) 20 mg TRANSLINGU DAILY [facility] Last Admin: 07/25/22 08:12 Dose: 20 mg Psyllium Hydrophilic Mucilloid (Psyllium Seed 3.4 Gm Powd.Pack) 3.4 gm PO BID [facility] Last Admin: 07/25/22 08:11 Dose: 3.4 gm Trazodone HCl (Trazodone Hcl 50 Mg Tablet) 50 mg PO BEDTIME PRN PRN Reason: Insomnia Last Admin: 05/27/22 20:11 Dose: 50 mg Allergies Allergies Allergy/AdvReac Type Severity Reaction Status Date / Time bupropion [From Wellbutrin] Allergy Mild CAUSES Unverified 03/07/20 15:04 SWOLLEN HEAD tetracycline [Tetracycline] Allergy Mild UNKNOWN Unverified 03/07/20 15:04 trifluoperazine Allergy Mild UNKNOWN Unverified 03/07/20 15:04 [From Stelazine] clozapine [From Clozaril] AdvReac Mild SEIZURES,NE Unverified 03/07/20 15:04 UTROPENIA Assessment & Plan Assessment & Plan (1) Schizoaffective disorder, bipolar type: Status: Acute Code(s): F25.0 - Schizoaffective disorder, bipolar type Plan Eriberto is a 56 y.o. male with a past medical history of schizoaffective disorder, bipolar type. He presented to [facility] ED on 05/07/22 due to grandiose, paranoid delusional thought content, command AH. Per pt?s gf, he had been doing well until 05/02/22, however began responding to internal stimuli and on 05/06/22 he emptied his medications down the garbage disposal. Hx of IPLOC on section 8 at [facility] M[facility] in September- November 2021. Stabilized on lithium and olanzapine. Plan: Pt signed a CV, however does not appear to understand the conditional voluntary form and felt forced into doing this, states he is actually involuntary for the admission, will reject the CV. Will continue lithium 600 mg BID and olanzapine 30 mg HS, however pt says he intends to refuse. Li level 0.53 on admission. 05/08: Continue to offer meds, pt is intrusive, bizarre, makes vague statements about harming himself or others if forced to take meds, on 5 min checks 05/09: Refused to meet, declining medication 05/10: Refuses meds, not engaging in tx 05/11: Refuses meds, not engaging in tx. Pt is now a section VII. Will change olanzapine to ODT to promote adherence. 05/13: took meds last night. irritable, labile. reporting AH. 05/14 continue tx. 05/15: not consistently taking medication. hypersexual, bizarre. threatened to stab staff with scissors (which he had in his hand) and was not cooperative in returning razor to staff after shaving. 05/16 not taking meds, sect 7 continues offering meds. 05/17 continue tx. not taking meds ,pending court. 05/18: refusing meds. exposing his genitalia in the [place], licking the floor, throwing urine-soaked playing cards at staff. 05/19: refusing meds. ripped crowns off teeth and threw them away; smearing food on self and door; leaving urine footprints in the [place], smelling and dripping of the stuff. given medication restraint of zyprexa 10 and benadryl 50 IM after throwing hot soup in the milieu with peers in the area. 05/20: no change in presentation. refusing medications, denies he has mental illness. 05/21: sedated from having taken zyprexa 30 PO mg this morning. pushed staff in order to access kitchen last night, got zyprexa and benadryl IM after. 05/22: periods of agitation. defecated in shower. pacing, trying exits. continue current mgmt. 05/23: pt refusing meds, night prior he was disruptive on unit i.e. tearing up board games, intrusive towards peers 05/24: no med changes, refusing meds 05/25: refusing meds. court . wednesday was storing feces wrapped in paper towels on his shelving to save the universe. incontinent of urine in the milieu, slow to change/wash. 05/26: took zyprexa yesterday morning, refusing lithium. irritable. you are all lesbians trying to take over the world. 05/27: refusing meds. hearing tomorrow. to staff trying to administer meds: shove it up your ass! to female staff attempting to provide care: get out, bitch. you're a dog. get on your knees. [id number] declined mtg with TERA. 05/28: taking food from others' trays and throwing it away, masturbating in milieu, calling female staff bitch, ripped up checks sheet from off of NA's clipboard, urinating on floor, pouring bottle of water onto floor. committed and ordered medication. 05/29 continue tx, back up IM per court order. 05/30/2022: Has only received olanzapine for the last 1-2 days, therefore unable to clearly evaluate efficacy. Given intensity of behaviors and interacti ons and psychosis, Will add olanzapine in the morning time i.e. 10 mg morning and 30 mg at bedtime with 10 mg IM backup morning and bedtime. Haldol as needed. 05/31/2022: No changes to current plan. Did have medication restraint today. 06/01: no change to plan. irritable, delusional. 06/02: no change in plan or presentation. 06/03: bizarre delusions. destroyed and threw away peer's art project. misogynistic comments. 06/04: irritable, verbally aggressive, refusing PO meds and getting IMs instead. 06/05: less verbally aggressive and irritable. took PO meds this morning rather than receive IMs. 06/07 no changes to tx plan 06/08: taking IMs all weekend. less aggressive and irritable, still disorganized and delusional. 06/09: PO meds this morning. defecated in shower and engaging in feces play yesterday. poor sleep. presentation essentially unchanged from yesterday. 06/10: stable presentation. loud, droning, disorganized, incoherent. taking meds PO. continue current mgmt. 06/11: stable presentation. loud, droning, disorganized, incoherent. taking meds PO. continue current mgmt. 06/12: stable presentation. loud, droning, disorganized, incoherent. taking meds PO. continue current mgmt. 06/13: Pt refused PO meds on evening of 06/12, received IMs. no changes to tx. disorganized, psychotic. 06/14: adherent with PO meds, some inappropriate comments 06/15: off Q5 min checks, adherent with PO meds 06/16: Check lithium level patient irritable dysphoric easily agitated question med compliance question whether patient is responding to olanzapine. 06/17: no change in presentation. 06/18: no change in presentation. lithium 0.54. 06/19: continue current mgmt. per staff, taking meds with less resistance, brighter, less labile, less aggressive. informed peer he hears very loud voices and that is why he speaks so loudly and to pardon him. 06/20 Continue tx plan. 06/21 Continue tx plan. 06/22 Continue current tx plan. 06/23: no change in presentation. continue current mgmt. 06/24: no change in presentation. continue current mgmt. 06/25: agitation today on being presented with court orders, per his request. denies he has mental illness, gets angry, and verbally abuses MD. increase lithium dosing. 06/26: pt clearly angry with MD, citing information from court order. appears somewhat edematous in the face today, will follow (lithium dosing increased last night). 06/27 continue tx. 06/28 continue tx. 06/29: no change in mgmt. 06/30: no change in presentation, no change in mgmt. 07/01: continue current mgmt. slept 6 hours overnight. otherwise remains bizarre. 07/02: check lithium level. T/C adding tegretol to regimen as pt has had inadequate progress on current regimen. 07/03: lithium level remains around 0.55 despite increase in dosing. investigating use of liquid formulation with pharmacy. if liquid available will change to liquid 600 BID and check level again. if we are unable to improve clinical state with liquid lithium will add tegretol to regimen. 07/04: No changes to current treatment plan. 07/06: added 1:1 for 30 minutes post-medication to reduce possibility of cheeking/regurgitation. per pharmacy, liquid lithium has been discontinued. tegretol remains an option. 07/07: no change in presentation or plan. observe after med administration for 5 days, check lithium level. 07/08: laughing and joking with MD and SW. no longer hostile toward MD. sleeping better through the night. continues to endorse voices from afar. 07/09: i am not mentally ill, the voices tell me so. stable. as of 07/11 will have had 5 days of supervised time for 30 minutes after medical microbiologist and will recheck lithium level and labs. 07/10: no change in presentation. continue current mgmt. 07/11: Continue current plans and regimen 07/12: Continue current regimen and plans 07/13: lithium 0.84 on 07/11, after 5 days 1:1 for 30 minutes post-prandial. confounder of lack of psyllium supplement co-incident. will continue to observe post-prandial this week while also receiving psyllium, check lithium level again toward end of week to resolve the question. remains with poor insight into mental illness as well as with symptoms. strongly considering the addition of t egretol as pt is not likely to remain compliant for long after discharge in present state. 07/14: continue current mgmt. 07/15: continue current mgmt. check labs tonight. 07/16: lithium level decreased with resumption of metamucil, indicating it is having a substantial impact on absorption. as pt is likely to take metamucil once he is home, will not alter orders. and as pt's delusions and hallucin ations have not resolved with current therapy, will add tegretol to regimen as of today, at 200 mg BID. 07/17: uncharacteristically, pt says he will take the lithium and zyprexa for 2 years. he does not like the tegretol, which he feels has taken away his buzz and on which he cannot be happy. continue current mgmt. 07/18 no changes no changes in treatment 07/20: continue current mgmt. check tegretol level soon, adjust accordingly. 07/21: no change in presentation. plan to check tegretol level evening. 07/22: no change in presentation or plan. check tegretol tomorrow evening. 07/23: no change. check labs tonight. 07/24: tegretol 5.0, lithium 0.7 last night. increase tegretol dosing from 200 BID to 200/400, otherwise continue prior mgmt. 07/25: tolerated dose increase last night. only c/o some morning sedation. continue current mgmt. follow potential eye infection, T/C hospitalist consult. Reason for contiued inpatient stay Substantial Risk for: inability to function and rapid decompensation Time Spent With Patient Time: Total time managing care of this patient today ____ minutes.
[2022-07-25 18:00] VITALS: BP 112/57; PULSE 78; RESP 20; TEMP 36.6; O2SAT 94
[2022-07-25] MEDS: carBAMazepine ER 200 MG TAB.ER.12H 400 MG PO (22:00)
[2022-07-25] MEDS: Lithium Carbonate ER 450 MG TABLET.ER 900 MG PO (22:00)
[2022-07-26 08:35] VITALS: BP 110/67; PULSE 71; RESP 18; TEMP 36.6; O2SAT 94
[2022-07-26] MEDS: Lithium Carbonate ER 300 MG TABLET.ER 600 MG PO (08:40)
[2022-07-26] MEDS: carBAMazepine ER 200 MG TAB.ER.12H PO (08:40)
[2022-07-26] MEDS: OLANZapine ODT 10 MG TAB.RAPDIS 20 MG TRANSLINGU ×2 (08:40→21:59)
--- NOTE | 2022-07-26 08:44 | PC.NURSE ---
This morning I talked to patient about his plans for after he discharges. Patient and this RN knew each other in the distant past when he had services through [facility] contracted providers for outreach, [facility] payee and med administration. Patient states he no longer has or needs these services. He states he drives himself to appointments. He states he does not need to picker/puller his refills at the pharmacy or have assistance with medication management since he says, the spirits tell me I am not mentally ill and I don't need to take medications. This is all wrong for me. Patient states he will not take medications after discharge.
--- NOTE | 2022-07-26 16:31 | P.PNPSI_ITS ---
Subjective Subjective Date of Service: 07/26/22 Reason For Visit: AH, delusional Interim History: calm, cooperative. observed playing games in the milieu and engaging in activities with peers. no complaints or requests. per staff, no change in presentation. informed RN the spirits told him he does not have mental illness and therefore he will not be taking medications once he leaves the hospital. to bed at 2300, slept through the night. Mental Status Exam Mental Status Exam Narrative: up and about the unit, appears adequately groomed. cooperative. no PMA/PMR. thoughts linear in brief interactions, speech less droning. affect constricted, hypo-intense, non-labile. no SI/HI/AVH expressed. Diagnostics Vital Signs (24Hr): Vital Signs - 24 hr 07/25/22 18:00 07/26/22 08:35 Temperature 97.9 F 97.9 F Pulse Rate 78 71 Respiratory Rate 20 18 Blood Pressure 112/57 L 110/67 Pulse Oximetry 94 94 Oxygen Delivery Method Room Air Room Air BMI result Body Mass Index 26.2 Labs 07/23/22 20:00 07/23/22 20:00 Medications Medications Current Medications Acetaminophen (Acetaminophen 325 Mg Tablet) 650 mg PO Q6H PRN PRN Reason: Headache/Pain Mild Scale (1-3) Al Hydroxide/Mg Hydroxide (Magnesium Hydrox/Alum Hydrox 30 Ml Oral.Susp) 30 ml PO Q6H PRN PRN Reason: Heartburn/Nausea Carbamazepine (Carbamazepine Er 200 Mg Tab.Er.12h) 400 mg PO BEDTIME [facility] Last Admin: 07/25/22 22:00 Dose: 400 mg Carbamazepine (Carbamazepine Er 200 Mg Tab.Er.12h) 200 mg PO DAILY [facility] Last Admin: 07/26/22 08:40 Dose: 200 mg Haloperidol (Haloperidol 5 Mg Tablet) 5 mg PO QID PRN PRN Reason: psychosis, agitati [place] Carbonate ([place] Carbonate Er 300 Mg Tablet.Er) 600 mg PO DAILY [facility] Last Admin: 07/26/22 08:40 Dose: 600 mg [place] Carbonate ([place] Carbonate Er 450 Mg Tablet.Er) 900 mg PO BEDTIME [facility] Last Admin: 07/25/22 22:00 Dose: 900 mg Magnesium Hydroxide (Milk Of Magnesia 30 Ml Oral.Susp) 30 ml PO DAILY PRN PRN Reason: Constipation Olanzapine (Olanzapine 10 Mg Vial) 10 mg IM BID PRN PRN Reason: refusal of PO zyprexa, per debra Last Admin: 06/12/22 22:55 Dose: 10 mg Olanzapine (Olanzapine Odt 10 Mg Tab.Rapdis) 20 mg TRANSLINGU BEDTIME [facility] Last Admin: 07/25/22 22:00 Dose: 20 mg Olanzapine (Olanzapine Odt 10 Mg Tab.Rapdis) 20 mg TRANSLINGU DAILY [facility] Last Admin: 07/26/22 08:40 Dose: 20 mg Psyllium Hydrophilic Mucilloid (Psyllium Seed 3.4 Gm Powd.Pack) 3.4 gm PO BID [facility] Last Admin: 07/26/22 08:40 Dose: 3.4 gm Trazodone HCl (Trazodone Hcl 50 Mg Tablet) 50 mg PO BEDTIME PRN PRN Reason: Insomnia Last Admin: 05/27/22 20:11 Dose: 50 mg Allergies Allergies Allergy/AdvReac Type Severity Reaction Status Date / Time bupropion [From Wellbutrin] Allergy Mild CAUSES Unverified 03/07/20 15:04 SWOLLEN HEAD tetracycline [Tetracycline] Allergy Mild UNKNOWN Unverified 03/07/20 15:04 trifluoperazine Allergy Mild UNKNOWN Unverified 03/07/20 15:04 [From Stelazine] clozapine [From Clozaril] AdvReac Mild SEIZURES,NE Unverified 03/07/20 15:04 UTROPENIA Assessment & Plan Assessment & Plan (1) Schizoaffective disorder, bipolar type: Status: Acute Code(s): F25.0 - Schizoaffective disorder, bipolar type Plan Eriberto is a 56 y.o. male with a past medical history of schizoaffective diso rder, bipolar type. He presented to [facility] [place] ED on 05/07/22 due to grandiose, paranoid delusional thought content, command AH. Per pt?s gf, he had been doing well until 05/02/22, however began responding to internal stimuli and on 05/06/22 he emptied his medications down the garbage disposal. Hx of IPLOC on section 8 at [facility] M3 in September- November 2021. Stabilized on lithium and olanzapine. Plan: Pt signed a CV, however does not appear to understand the conditional voluntary form and felt forced into doing this, states he is actually involuntary for the admission, will reject the CV. Will continue lithium 600 mg BID and olanzapine 30 mg HS, however pt says he intends to refuse. Li level 0.53 on admission. 05/08: Continue to offer meds, pt is intrusive, bizarre, makes vague statements about harming himself or others if forced to take meds, on 5 min checks 05/09: Refused to meet, declining medication 05/10: Refuses meds, not engaging in tx 05/11: Refuses meds, not engaging in tx. Pt is now a section VII. Will change olanzapine to ODT to promote adherence. 05/13: took meds last night. irritable, labile. reporting AH. 05/14 continue tx. 05/15: not consistently taking medication. hypersexual, bizarre. threatened to stab staff with scissors (which he had in his hand) and was not cooperative in returning razor to staff after shaving. 05/16 not taking meds, sect 7 continues offering meds. 05/17 continue tx. not taking meds ,pending court. 05/18: refusing meds. exposing his genitalia in the [place], licking the floor, throwing urine-soaked playing cards at staff. 05/19: refusing meds. ripped crowns off teeth and threw them away; smearing food on self and door; leaving urine footprints in the [place], smelling and dripping of the stuff. given medication restraint of zyprexa 10 and benadryl 50 IM after throwing hot soup in the milieu with peers in the area. 05/20: no change in presentation. refusing medications, denies he has mental illness. 05/21: sedated from having taken zyprexa 30 PO mg this morning. pushed staff in order to access kitchen last night, got zyprexa and benadryl IM after. 05/22: periods of agitation. defecated in shower. pacing, trying exits. continue current mgmt. 05/23: pt refusing meds, night prior he was disruptive on unit i.e. tearing up board games, intrusive towards peers 05/24: no med changes, refusing meds 05/25: refusing meds. court . wednesday was storing feces wrapped in paper towels on his shelving to save the universe. incontinent of urine in the milieu, slow to change/wash. 05/26: took zyprexa yesterday morning, refusing lithium. irritable. you are all lesbians trying to take over the world. 05/27: refusing meds. hearing tomorrow. to staff trying to administer meds: shove it up your ass! to female staff attempting to provide care: get out, bitch. you're a dog. get on your knees. [email or web address] declined mtg with TERA. 05/28: taking food from others' trays and throwing it away, masturbating in milieu, calling female staff bitch, ripped up checks sheet from off of [employer]'s clipboard, urinating on floor, pouring bottle of water onto floor. committed and ordered medication. 05/29 continue tx, back up IM per court order. 05/30/2022: Has only received olanzapine for the last 1-2 days, therefore unable to clearly evaluate efficacy. Given intensity of behaviors and interactions and psychosis, Will add olanzapine in the morning time i.e. 10 mg morning and 30 mg at bedtime with 10 mg IM backup morning and bedtime. Haldol as needed. 05/31/2022: No changes to current plan. Did have medication restraint today. 06/01: no change to plan. irritable, delusional. 06/02: no change in plan or presentation. 06/03: bizarre delusions. destroyed and threw away peer's art project. misogynistic comments. 06/04: irritable, verbally aggressive, refusing PO meds and getting IMs instead. 06/05: less verbally aggressive and irritable. took PO meds this morning rather than receive IMs. 06/07 no changes to tx plan 06/08: taking IMs all weekend. less aggressive and irritable, still disorganized and delusional. 06/09: PO meds this morning. defecated in shower and engaging in feces play yesterday. poor sleep. presentation essentially unchanged from yesterday. 06/10: stable presentation. loud, droning, disorganized, incoherent. taking meds PO. continue current mgmt. 06/11: stable presentation. loud, droning, disorganized, incoherent. taking meds PO. continue current mgmt. 06/12: stable presentation. loud, droning, disorganized, incoherent. taking meds PO. continue current mgmt. 06/13: Pt refused PO meds on evening of 06/12, received IMs. no changes to tx. disorganized, psychotic. 06/14: adherent with PO meds, some inappropriate comments 06/15: off Q5 min checks, adherent with PO meds 06/16: Check lithium level patient irritable dysphoric easily agitated question med compliance question whether patient is responding to olanzapine. 06/17: no change in presentation. 06/18: no change in presentation. lithium 0.54. 06/19: continue current mgmt. per staff, taking meds with less resistance, leo ghter, less labile, less aggressive. informed peer he hears very loud voices and that is why he speaks so loudly and to pardon him. 06/20 Continue tx plan. 06/21 Continue tx plan. 06/22 Continue current tx plan. 06/23: no change in presentation. continue current mgmt. 06/24: no change in presentation. continue current mgmt. 06/25: agitation today on being presented with court orders, per his request. denies he has mental illness, gets angry, and verbally abuses MD. increase lithium dosing. 06/26: pt clearly angry with MD, citing information from court order. appears somewhat edematous in the face today, will follow (lithium dosing increased last night). 06/27 continue tx. 06/28 continue tx. 06/29: no change in mgmt. 06/30: no change in presentation, no change in mgmt. 07/01: continue current mgmt. slept 6 hours overnight. otherwise remains bizarre. 07/02: check lithium level. T/C adding tegretol to regimen as pt has had inadequate progress on current regimen. 07/03: lithium level remains around 0.55 despite increase in dosing. investigating use of liquid formulation with pharmacy. if liquid available will change to liquid 600 BID and check level again. if we are unable to improve clinical state with liquid lithium will add tegretol to regimen. 07/04: No changes to current treatment plan. 07/06: added 1:1 for 30 minutes post-medication to reduce possibility of cheeking/regurgitation. per pharmacy, liquid lithium has been discontinued. tegretol remains an option. 07/07: no change in presentation or plan. observe after med administration for 5 days, check lithium level. 07/08: laughing and joking with MD and SW. no longer hostile toward MD. sleeping better through the night. continues to endorse voices from afar. 07/09: i am not mentally ill, the voices tell me so. stable. as of 07/11 will have had 5 days of supervised time for 30 minutes after emergency medical tech and will reche ck lithium level and labs. 07/10: no change in presentation. continue current mgmt. 07/11: Continue current plans and regimen 07/12: Continue current regimen and plans 07/13: lithium 0.84 on 07/11, after 5 days 1:1 for 30 minutes post-prandial. confounder of lack of psyllium supplement co-incident. will continue to observe post-prandial this week while also receiving psyllium, check lithium level again toward end of week to resolve the question. remains with poor insight into mental illness as well as with symptoms. strongly considering the addition of tegretol as pt is not likely to remain compliant for long after discharge in present state. 07/14: continue current mgmt. 07/15: continue current mgmt. check labs tonight. 07/16: lithium level decreased with resumption of metamucil, indicating it is having a substantial impact on absorption. as pt is likely to take metamucil once he is home, will not alter orders. and as pt's delusions and hallucinations have not resolved with current therapy, will add tegretol to regimen as of today, at 200 mg BID. 07/17: uncharacteristically, pt says he will take the lithium and zyprexa for 2 years. he does not like the tegretol, which he feels has taken away his buzz and on which he cannot be happy. continue current mgmt. 07/18 no changes no changes in treatment 07/20: continue current mgmt. check tegretol level soon, adjust accordingly. 07/21: no change in presentation. plan to check tegretol level evening. 07/22: no change in presentation or plan. check tegretol tomorrow evening. 07/23: no change. check labs tonight. 07/24: tegretol 5.0, lithium 0.7 last night. increase tegretol dosing from 200 BID to 200/400, otherwise continue prior mgmt. 07/25: tolerated dose increase last night. only c/o some morning sedation. angelika nue current mgmt. follow potential eye infection, T/C hospitalist consult. 07/26: continue current mgmt. [facility] services referral? Reason for contiued inpatient stay Substantial Risk for: rapid decompensation Time Spent With Patient Time: Total time managing care of this patient today ____ minutes.
[2022-07-26 20:15] VITALS: BP 123/74; PULSE 73; RESP 16; TEMP 36.7; O2SAT 97
[2022-07-26] MEDS: Lithium Carbonate ER 450 MG TABLET.ER 900 MG PO (21:58)
[2022-07-26] MEDS: carBAMazepine ER 200 MG TAB.ER.12H 400 MG PO (21:59)
[2022-07-27 08:00] VITALS: BP 126/68; PULSE 71; TEMP 36.6; O2SAT 98
[2022-07-27] MEDS: Lithium Carbonate ER 300 MG TABLET.ER 600 MG PO (08:25)
[2022-07-27] MEDS: carBAMazepine ER 200 MG TAB.ER.12H PO (08:25)
[2022-07-27] MEDS: OLANZapine ODT 10 MG TAB.RAPDIS 20 MG TRANSLINGU ×2 (08:25→21:34)
--- NOTE | 2022-07-27 15:38 | P.PNPSI_ITS ---
Subjective Subjective Date of Service: 07/27/22 Reason For Visit: AH, delusional Interim History: calm, cooperative. reports he had a surprisingly good birthday yesterday, with visitors and gifts. no requests or complaints. presentation stable. per staff, guarded. stated his thoughts are good. had a good birthday yesterday. dep/anx 2. stated he can hear a small tiny sound, but it's just my genetics. had visitors. slept all night. attending more groups. brighter affect. Mental Status Exam Mental Status Exam Narrative: up and about the unit, appears adequately groomed. cooperative. no PMA/PMR. thoughts linear in brief interactions, speech less droning. affect constricted, hypo-intense, non-labile. no SI/HI/AVH expressed. Diagnostics Vital Signs (24Hr): Vital Signs - 24 hr 07/26/22 20:15 07/27/22 08:00 Temperature 98.1 F 97.8 F Pulse Rate 73 71 Respiratory Rate 16 Blood Pressure 123/74 126/68 Pulse Oximetry 97 98 Oxygen Delivery Method Room Air Room Air BMI result Body Mass Index 26.2 Labs 07/23/22 20:00 07/23/22 20:00 Medications Medications Current Medications Acetaminophen (Acetaminophen 325 Mg Tablet) 650 mg PO Q6H PRN PRN Reason: Headache/Pain Mild Scale (1-3) Al Hydroxide/Mg Hydroxide (Magnesium Hydrox/Alum Hydrox 30 Ml Oral.Susp) 30 ml PO Q6H PRN PRN Reason: Heartburn/Nausea Carbamazepine (Carbamazepine Er 200 Mg Tab.Er.12h) 400 mg PO BEDTIME [facility] Last Admin: 07/26/22 21:59 Dose: 400 mg Carbamazepine (Carbamazepine Er 200 Mg Tab.Er.12h) 200 mg PO DAILY [facility] Last Admin: 07/27/22 08:25 Dose: 200 mg Haloperidol (Haloperidol 5 Mg Tablet) 5 mg PO QID PRN PRN Reason: psychosis, agitati [place] Carbonate ([place] Carbonate Er 300 Mg Tablet.Er) 600 mg PO DAILY [facility] Last Admin: 07/27/22 08:25 Dose: 600 mg [place] Carbonate ([place] Carbonate Er 450 Mg Tablet.Er) 900 mg PO BEDTIME [facility] Last Admin: 07/26/22 21:58 Dose: 900 mg Magnesium Hydroxide (Milk Of Magnesia 30 Ml Oral.Susp) 30 ml PO DAILY PRN PRN Reason: Constipation Olanzapine (Olanzapine 10 Mg Vial) 10 mg IM BID PRN PRN Reason: refusal of PO zyprexa, per debra Last Admin: 06/12/22 22:55 Dose: 10 mg Olanzapine (Olanzapine Odt 10 Mg Tab.Rapdis) 20 mg TRANSLINGU BEDTIME [facility] Last Admin: 07/26/22 21:59 Dose: 20 mg Olanzapine (Olanzapine Odt 10 Mg Tab.Rapdis) 20 mg TRANSLINGU DAILY [facility] Last Admin: 07/27/22 08:25 Dose: 20 mg Psyllium Hydrophilic Mucilloid (Psyllium Seed 3.4 Gm Powd.Pack) 3.4 gm PO BID [facility] Last Admin: 07/27/22 08:26 Dose: 3.4 gm Trazodone HCl (Trazodone Hcl 50 Mg Tablet) 50 mg PO BEDTIME PRN PRN Reason: Insomnia Last Admin: 05/27/22 20:11 Dose: 50 mg Allergies Allergies Allergy/AdvReac Type Severity Reaction Status Date / Time bupropion [From Wellbutrin] Allergy Mild CAUSES Unverified 03/07/20 15:04 SWOLLEN HEAD tetracycline [Tetracycline] Allergy Mild UNKNOWN Unverified 03/07/20 15:04 trifluoperazine Allergy Mild UNKNOWN Unverified 03/07/20 15:04 [From Stelazine] clozapine [From Clozaril] AdvReac Mild SEIZURES,NE Unverified 03/07/20 15:04 UTROPENIA Assessment & Plan Assessment & Plan (1) Schizoaffective disorder, bipolar type: Status: Acute Code(s): F25.0 - Schizoaffective disorder, bipolar type Plan Eriberto is a 56 y.o. male with a past medical history of schizoaffective disorder, bipolar type. He presented to [facility] ED on 05/07/22 due to grandiose, paranoid delusional thought content, command AH. Per pt?s gf, he had been doing well until 05/02/22, however began responding to internal stimuli and on 05/06/22 he emptied his medications down the garbage disposal. Hx of IPLOC on section 8 at [facility] in September- November 2021. Stabilized on lithium and olanzapine. Plan: Pt signed a CV, however does not appear to understand the conditional voluntary form and felt forced into doing this, states he is actually involuntary for the admission, will reject the CV. Will continue lithium 600 mg BID and olanzapine 30 mg HS, however pt says he intends to refuse. Li level 0.53 on admission. 05/08: Continue to offer meds, pt is intrusive, bizarre, makes vague statements about harming himself or others if forced to take meds, on 5 min checks 05/09: Refused to meet, declining medication 05/10: Refuses meds, not engaging in tx 05/11: Refuses meds, not engaging in tx. Pt is now a section VII. Will change olanzapine to ODT to promote adherence. 05/13: took meds last night. irritable, labile. reporting AH. 05/14 continue tx. 05/15: not consistently taking medication. hypersexual, bizarre. threatened to stab staff with scissors (which he had in his hand) and was not cooperative in returning razor to staff after shaving. 05/16 not taking meds, sect 7 continues offering meds. 05/17 continue tx. not taking meds ,pending court. 05/18: refusing meds. exposing his genitalia in the [place], licking the floor, throwing urine-soaked playing cards at staff. 05/19: refusing meds. ripped crowns off teeth and threw them away; smearing food on self and door; leaving urine footprints in the [place], smelling and dripping of the stuff. given medication restraint of zyprexa 10 and benadryl 50 IM after throwing hot soup in the milieu with peers in the area. 05/20: no change in presentation. refusing medications, denies he has mental illness. 05/21: sedated from having taken zyprexa 30 PO mg this morning. pushed staff in order to access kitchen last night, got zyprexa and benadryl IM after. 05/22: periods of agitation. defecated in shower. pacing, trying exits. continue current mgmt. 05/23: pt refusing meds, night prior he was disruptive on unit i.e. tearing up board games, intrusive towards peers 05/24: no med changes, refusing meds 05/25: refusing meds. court . wednesday was storing feces wrapped in paper towels on his shelving to save the universe. incontinent of urine in the milieu, slow to change/wash. 05/26: took zyprexa yesterday morning, refusing lithium. irritable. you are all lesbians trying to take over the world. 05/27: refusing meds. hearing tomorrow. to staff trying to administer meds: shove it up your ass! to female staff attempting to provide care: get out, bitch. you're a dog. get on your knees. [id number] declined mtg with TERA. 05/28: taking food from others' trays and throwing it away, masturbating in milieu, calling female staff bitch, ripped up checks sheet from off of naaya's clipboard, urinating on floor, pouring bottle of water onto floor. committed and ordered medication. 05/29 continue tx, back up IM per court order. 05/30/2022: Has only received olanzapine for the last 1-2 days, therefore unable to clearly evaluate efficacy. Given intensity of behaviors and interacti ons and psychosis, Will add olanzapine in the morning time i.e. 10 mg morning and 30 mg at bedtime with 10 mg IM backup morning and bedtime. Haldol as needed. 05/31/2022: No changes to current plan. Did have medication restraint today. 06/01: no change to plan. irritable, delusional. 06/02: no change in plan or presentation. 06/03: bizarre delusions. destroyed and threw away peer's art project. misogynistic comments. 06/04: irritable, verbally aggressive, refusing PO meds and getting IMs instead. 06/05: less verbally aggressive and irritable. took PO meds this morning rather than receive IMs. 06/07 no changes to tx plan 06/08: taking IMs all weekend. less aggressive and irritable, still disorganized and delusional. 06/09: PO meds this morning. defecated in shower and engaging in feces play yesterday. poor sleep. presentation essentially unchanged from yesterday. 06/10: stable presentation. loud, droning, disorganized, incoherent. taking meds PO. continue current mgmt. 06/11: stable presentation. loud, droning, disorganized, incoherent. taking meds PO. continue current mgmt. 06/12: stable presentation. loud, droning, disorganized, incoherent. taking meds PO. continue current mgmt. 06/13: Pt refused PO meds on evening of 06/12, received IMs. no changes to tx. disorganized, psychotic. 06/14: adherent with PO meds, some inappropriate comments 06/15: off Q5 min checks, adherent with PO meds 06/16: Check lithium level patient irritable dysphoric easily agitated question med compliance question whether patient is responding to olanzapine. 06/17: no change in presentation. 06/18: no change in presentation. lithium 0.54. 06/19: continue current mgmt. per staff, taking meds with less resistance, brighter, less labile, less aggressive. informed peer he hears very loud voices and that is why he speaks so loudly and to pardon him. 06/20 Continue tx plan. 06/21 Continue tx plan. 06/22 Continue current tx plan. 06/23: no change in presentation. continue current mgmt. 06/24: no change in presentation. continue current mgmt. 06/25: agitation today on being presented with court orders, per his request. denies he has mental illness, gets angry, and verbally abuses MD. increase lithium dosing. 06/26: pt clearly angry with MD, citing information from court order. appears somewhat edematous in the face today, will follow (lithium dosing increased last night). 06/27 continue tx. 06/28 continue tx. 06/29: no change in mgmt. 06/30: no change in presentation, no change in mgmt. 07/01: continue current mgmt. slept 6 hours overnight. otherwise remains bizarre. 07/02: check lithium level. T/C adding tegretol to regimen as pt has had inadequate progress on current regimen. 07/03: lithium level remains around 0.55 despite increase in dosing. investigating use of liquid formulation with pharmacy. if liquid available will change to liquid 600 BID and check level again. if we are unable to improve clinical state with liquid lithium will add tegretol to regimen. 07/04: No changes to current treatment plan. 07/06: added 1:1 for 30 minutes post-medication to reduce possibility of cheeking/regurgitation. per pharmacy, liquid lithium has been discontinued. tegretol remains an option. 07/07: no change in presentation or plan. observe after med administration for 5 days, check lithium level. 07/08: laughing and joking with MD and SW. no longer hostile toward MD. sleeping better through the night. continues to endorse voices from afar. 07/09: i am not mentally ill, the voices tell me so. stable. as of 07/11 will have had 5 days of supervised time for 30 minutes after medical science liaison and will recheck lithium level and labs. 07/10: no change in presentation. continue current mgmt. 07/11: Continue current plans and regimen 07/12: Continue current regimen and plans 07/13: lithium 0.84 on 07/11, after 5 days 1:1 for 30 minutes post-prandial. confounder of lack of psyllium supplement co-incident. will continue to observe post-prandial this week while also receiving psyllium, check lithium level again toward end of week to resolve the question. remains with poor insight into mental illness as well as with symptoms. strongly considering the addition of t egretol as pt is not likely to remain compliant for long after discharge in present state. 07/14: continue current mgmt. 07/15: continue current mgmt. check labs tonight. 07/16: lithium level decreased with resumption of metamucil, indicating it is having a substantial impact on absorption. as pt is likely to take metamucil once he is home, will not alter orders. and as pt's delusions and hallucin ations have not resolved with current therapy, will add tegretol to regimen as of today, at 200 mg BID. 07/17: uncharacteristically, pt says he will take the lithium and zyprexa for 2 years. he does not like the tegretol, which he feels has taken away his buzz and on which he cannot be happy. continue current mgmt. 07/18 no changes no changes in treatment 07/20: continue current mgmt. check tegretol level soon, adjust accordingly. 07/21: no change in presentation. plan to check tegretol level evening. 07/22: no change in presentation or plan. check tegretol tomorrow evening. 07/23: no change. check labs tonight. 07/24: tegretol 5.0, lithium 0.7 last night. increase tegretol dosing from 200 BID to 200/400, otherwise continue prior mgmt. 07/25: tolerated dose increase last night. only c/o some morning sedation. continue current mgmt. follow potential eye infection, T/C hospitalist consult. 07/26: continue current mgmt. [facility] services referral? 07/27: continue current mgmt. asking about next lab draw for tegretol level, which would be around 2/10. incremental gains. Reason for contiued inpatient stay Substantial Risk for: inability to function and rapid decompensation Time Spent With Patient Time: Total time managing care of this patient today ____ minutes.
[2022-07-27 19:53] VITALS: BP 121/63; PULSE 79; RESP 16; TEMP 36.6; O2SAT 95
[2022-07-27] MEDS: Lithium Carbonate ER 450 MG TABLET.ER 900 MG PO (21:34)
[2022-07-27] MEDS: carBAMazepine ER 200 MG TAB.ER.12H 400 MG PO (21:34)
[2022-07-28 08:00] VITALS: BP 124/64; PULSE 77; RESP 18; TEMP 36.6; O2SAT 97
[2022-07-28] MEDS: OLANZapine ODT 10 MG TAB.RAPDIS 20 MG TRANSLINGU ×2 (09:03→22:12)
[2022-07-28] MEDS: Lithium Carbonate ER 300 MG TABLET.ER 600 MG PO (09:03)
[2022-07-28] MEDS: carBAMazepine ER 200 MG TAB.ER.12H PO (09:03)
[2022-07-28 18:00] VITALS: BP 117/56; PULSE 78; TEMP 36.8; O2SAT 97
--- NOTE | 2022-07-28 19:37 | HO.PSYCHPN ---
Subjective Subjective Date of Service: 07/28/22 Reason For Visit: AH, delusional Interim History: stable presentation. per staff, pleasant, brighter. playing cards. denies Sx. denies mental illness. flat, guarded. med and meal compliant. sleeping well. Mental Status Exam Mental Status Exam Narrative: up and about the unit, appears adequately groomed. cooperative. no PMA/PMR. thoughts linear in brief interactions, speech less droning. affect constricted, hypo-intense, non-labile. no SI/HI/AVH expressed. Diagnostics Vital Signs (24Hr): Vital Signs - 24 hr 07/27/22 19:53 07/28/22 08:00 07/28/22 18:00 Temperature 97.9 F 97.9 F 98.2 F Pulse Rate 79 77 78 Respiratory Rate 16 18 Blood Pressure 121/63 124/64 117/56 L Pulse Oximetry 95 97 97 Oxygen Delivery Method Room Air Room Air Room Air BMI result Body Mass Index 26.2 Labs 07/23/22 20:00 07/23/22 20:00 Medications Medications Current Medications Acetaminophen (Acetaminophen 325 Mg Tablet) 650 mg PO Q6H PRN PRN Reason: Headache/Pain Mild Scale (1-3) Al Hydroxide/Mg Hydroxide (Magnesium Hydrox/Alum Hydrox 30 Ml Oral.Susp) 30 ml PO Q6H PRN PRN Reason: Heartburn/Nausea Carbamazepine (Carbamazepine Er 200 Mg Tab.Er.12h) 400 mg PO BEDTIME [facility] Last Admin: 07/27/22 21:34 Dose: 400 mg Carbamazepine (Carbamazepine Er 200 Mg Tab.Er.12h) 200 mg PO DAILY [facility] Last Admin: 07/28/22 09:03 Dose: 200 mg Haloperidol (Haloperidol 5 Mg Tablet) 5 mg PO QID PRN PRN Reason: psychosis, agitati [place] Carbonate ([place] Carbonate Er 300 Mg Tablet.Er) 600 mg PO DAILY [facility] Last Admin: 07/28/22 09:03 Dose: 600 mg [place] Carbonate ([place] Carbonate Er 450 Mg Tablet.Er) 900 mg PO BEDTIME [facility] Last Admin: 07/27/22 21:34 Dose: 900 mg Magnesium Hydroxide (Milk Of Magnesia 30 Ml Oral.Susp) 30 ml PO DAILY PRN PRN Reason: Constipation Olanzapine (Olanzapine 10 Mg Vial) 10 mg IM BID PRN PRN Reason: refusal of PO zyprexa, per debra Last Admin: 06/12/22 22:55 Dose: 10 mg Olanzapine (Olanzapine Odt 10 Mg Tab.Rapdis) 20 mg TRANSLINGU BEDTIME [facility] Last Admin: 07/27/22 21:34 Dose: 20 mg Olanzapine (Olanzapine Odt 10 Mg Tab.Rapdis) 20 mg TRANSLINGU DAILY [facility] Last Admin: 07/28/22 09:03 Dose: 20 mg Psyllium Hydrophilic Mucilloid (Psyllium Seed 3.4 Gm Powd.Pack) 3.4 gm PO BID [facility] Last Admin: 07/28/22 09:02 Dose: 3.4 gm Trazodone HCl (Trazodone Hcl 50 Mg Tablet) 50 mg PO BEDTIME PRN PRN Reason: Insomnia Last Admin: 05/27/22 20:11 Dose: 50 mg Allergies Allergies Allergy/AdvReac Type Severity Reaction Status Date / Time bupropion [From Wellbutrin] Allergy Mild CAUSES Unverified 03/07/20 15:04 SWOLLEN HEAD tetracycline [Tetracycline] Allergy Mild UNKNOWN Unverified 03/07/20 15:04 trifluoperazine Allergy Mild UNKNOWN Unverified 03/07/20 15:04 [From Stelazine] clozapine [From Clozaril] AdvReac Mild SEIZURES,NE Unverified 03/07/20 15:04 UTROPENIA Assessment & Plan Assessment & Plan (1) Schizoaffective disorder, bipolar type: Status: Acute Code(s): F25.0 - Schizoaffective disorder, bipolar type Plan Eriberto is a 56 y.o. male with a past medical history of schizoaffective disorder, bipolar type. He presented to [facility] ED on 05/07/22 due to grandiose, paranoid delusional thought content, command AH. Per pt?s gf, he had been doing well until 05/02/22, however began responding to internal stimuli and on 05/06/22 he emptied his medications down the garbage disposal. Hx of IPLOC on section [address] [facility] in September- November 2021. Stabilized on lithium and olanzapine. Plan: Pt signed a CV, however does not appear to understand the conditional voluntary form and felt forced into doing this, states he is actually involuntary for the admission, will reject the CV. Will continue lithium 600 mg BID and olanzapine 30 mg HS, however pt says he intends to refuse. Li level 0.53 on admission. 05/08: Continue to offer meds, pt is intrusive, bizarre, makes vague statements about harming himself or others if forced to take meds, on 5 min checks 05/09: Refused to meet, declining medication 05/10: Refuses meds, not engaging in tx 05/11: Refuses meds, not engaging in tx. Pt is now a section VII. Will change olanzapine to ODT to promote adherence. 05/13: took meds last night. irritable, labile. reporting AH. 05/14 continue tx. 05/15: not consistently taking medication. hypersexual, bizarre. threatened to stab staff with scissors (which he had in his hand) and was not cooperative in returning razor to staff after shaving. 05/16 not taking meds, sect 7 continues offering meds. 05/17 continue tx. not taking meds ,pending court. 05/18: refusing meds. exposing his genitalia in the [place], licking the floor, throwing urine-soaked playing cards at staff. 05/19: refusing meds. ripped crowns off teeth and threw them away; smearing food on self and door; leaving urine footprints in the [place], smelling and dripping of the stuff. given medication restraint of zyprexa 10 and benadryl 50 IM after throwing hot soup in the milieu with peers in the area. 05/20: no change in presentation. refusing medications, denies he has mental illness. 05/21: sedated from having taken zyprexa 30 PO mg this morning. pushed staff in order to access kitchen last night, got zyprexa and benadryl IM after. 05/22: periods of agitation. defecated in shower. pacing, trying exits. continue current mgmt. 05/23: pt refusing meds, night prior he was disruptive on unit i.e. tearing up board games, intrusive towards peers 05/24: no med changes, refusing meds 05/25: refusing meds. court . wednesday was storing feces wrapped in paper towels on his shelving to save the universe. incontinent of urine in the milieu, slow to change/wash. 05/26: took zyprexa yesterday morning, refusing lithium. irritable. you are all lesbians trying to take over the world. 05/27: refusing meds. hearing tomorrow. to staff trying to administer meds: shove it up your ass! to female staff attempting to provide care: get out, bitch. you're a dog. get on your knees. [id number] declined mtg with TERA. 05/28: taking food from others' trays and throwing it away, masturbating in milieu, calling female staff bitch, ripped up checks sheet from off of [employer]'s clipboard, urinating on floor, pouring bottle of water onto floor. committed and ordered medication. 05/29 continue tx, back up IM per court order. 05/30/2022: Has only received olanzapine for the last 1-2 days, therefore unable to clearly evaluate efficacy. Given intensity of behaviors and interactions and psychosis, Will add olanzapine in the morning time i.e. 10 mg morning and 30 mg at bedtime with 10 mg IM backup morning and bedtime. Haldol as needed. 05/31/2022: No changes to current plan. Did have medication restraint today. 06/01: no change to plan. irritable, delusional. 06/02: no change in plan or presentation. 06/03: bizarre delusions. destroyed and threw away peer's art project. misogynistic comments. 06/04: irritable, verbally aggressive, refusing PO meds and getting IMs instead. 06/05: less verbally aggressive and irritable. took PO meds this morning rather than receive IMs. 06/07 no changes to tx plan 06/08: taking IMs all weekend. less aggressive and irritable, still disorganized and delusional. 06/09: PO meds this morning. defecated in shower and engaging in feces play yesterday. poor sleep. presentation essentially unchanged from yesterday. 06/10: stable presentation. loud, droning, disorganized, incoherent. taking meds PO. continue current mgmt. 06/11: stable presentation. loud, droning, disorganized, incoherent. taking meds PO. continue current mgmt. 06/12: stable presentation. loud, droning, disorganized, incoherent. taking meds PO. continue current mgmt. 06/13: Pt refused PO meds on evening of 06/12, received IMs. no changes to tx. disorganized, psychotic. 06/14: adherent with PO meds, some inappropriate comments 06/15: off Q5 min checks, adherent with PO meds 06/16: Check lithium level patient irritable dysphoric easily agitated question med compliance question whether patient is responding to olanzapine. 06/17: no change in presentation. 06/18: no change in presentation. lithium 0.54. 06/19: continue current mgmt. per staff, taking meds with less resistance, brighter, less labile, less aggressive. informed peer he hears very loud voices and that is why he speaks so loudly and to pardon him. 06/20 Continue tx plan. 06/21 Continue tx plan. 06/22 Continue current tx plan. 06/23: no change in presentation. continue current mgmt. 06/24: no change in presentation. continue current mgmt. 06/25: agitation today on being presented with court orders, per his request. denies he has mental illness, gets angry, and verbally abuses MD. increase lithium dosing. 06/26: pt clearly angry with MD, citing information from court order. appears somewhat edematous in the face today, will follow (lithium dosing increased last night). 06/27 continue tx. 06/28 continue tx. 06/29: no change in mgmt. 06/30: no change in presentation, no change in mgmt. 07/01: continue current mgmt. slept 6 hours overnight. otherwise remains bizarre. 07/02: check lithium level. T/C adding tegretol to regimen as pt has had inadequate progress on current regimen. 07/03: lithium level remains around 0.55 despite increase in dosing. investigating use of liquid formulation with pharmacy. if liquid available will change to liquid 600 BID and check level again. if we are unable to improve clinical state with liquid lithium will add tegretol to regimen. 07/04: No changes to current treatment plan. 07/06: added 1:1 for 30 minutes post-medication to reduce possibility of cheeking/regurgitation. per pharmacy, liquid lithium has been discontinued. tegretol remains an option. 07/07: no change in presentation or plan. observe after med administration for 5 days, check lithium level. 07/08: laughing and joking with MD and SW. no longer hostile toward MD. sleeping better through the night. continues to endorse voices from afar. 07/09: i am not mentally ill, the voices tell me so. stable. as of 07/11 will have had 5 days of supervised time for 30 minutes after medical registrar and will recheck lithium level and labs. 07/10: no change in presentation. continue current mgmt. 07/11: Continue current plans and regimen 07/12: Continue current regimen and plans 07/13: lithium 0.84 on 07/11, after 5 days 1:1 for 30 minutes post-prandial. confounder of lack of psyllium supplement co-incident. will continue to observe post-prandial this week while also receiving psyllium, check lithium level again toward end of week to resolve the question. remains with poor insight into mental illness as well as with symptoms. strongly considering the addition of tegretol as pt is not likely to remain compliant for long after discharge in present state. 07/14: continue current mgmt. 07/15: continue current mgmt. check labs tonight. 07/16: lithium level decreased with resumption of metamucil, indicating it is having a substantial impact on absorption. as pt is likely to take metamucil once he is home, will not alter orders. and as pt's delusions and hallucinations have not resolved with current therapy, will add tegretol to regimen as of today, at 200 mg BID. 07/17: uncharacteristically, pt says he will take the lithium and zyprexa for 2 years. he does not like the tegretol, which he feels has taken away his buzz and on which he cannot be happy. continue current mgmt. 07/18 no changes no changes in treatment 07/20: continue current mgmt. check tegretol level soon, adjust accordingly. 07/21: no change in presentation. plan to check tegretol level evening. 07/22: no change in presentation or plan. check tegretol tomorrow evening. 07/23: no change. check labs tonight. 07/24: tegretol 5.0, lithium 0.7 last night. increase tegretol dosing from 200 BID to 200/400, otherwise continue prior mgmt. 07/25: tolerated dose increase last night. only c/o some morning sedation. continue current mgmt. follow potential eye infection, T/C hospitalist consult. 07/26: continue current mgmt. [facility] services referral? 07/27: continue current mgmt. asking about next lab draw for tegretol level, which would be around 2/10. incremental gains. 07/28: stable presentation, continue current mgmt. 2/10 levels check. Reason for contiued inpatient stay Substantial Risk for: rapid decompensation Time Spent With Patient Time: Total time managing care of this patient today ____ minutes.
[2022-07-28 21:36] VITALS: BP 129/64; PULSE 83; TEMP 36.8; O2SAT 95
[2022-07-28] MEDS: carBAMazepine ER 200 MG TAB.ER.12H 400 MG PO (22:12)
[2022-07-28] MEDS: Lithium Carbonate ER 450 MG TABLET.ER 900 MG PO (22:12)
[2022-07-29 08:10] VITALS: BP 107/62; PULSE 75; RESP 18; TEMP 37.1; O2SAT 95
[2022-07-29] MEDS: Lithium Carbonate ER 300 MG TABLET.ER 600 MG PO (08:50)
[2022-07-29] MEDS: carBAMazepine ER 200 MG TAB.ER.12H PO (08:51)
[2022-07-29] MEDS: OLANZapine ODT 10 MG TAB.RAPDIS 20 MG TRANSLINGU ×2 (08:53→22:10)
--- NOTE | 2022-07-29 16:32 | P.PNPSI_ITS ---
Subjective Subjective Date of Service: 07/29/22 Reason For Visit: AH, delusional Interim History: no change in presentation. will check labs 07/31. per staff, no change in presentation. planning for DC on wednesday. Mental Status Exam Mental Status Exam Narrative: up and about the unit, appears adequately groomed. cooperative. no PMA/PMR. thoughts linear in brief interactions, speech less droning. affect constricted, hypo-intense, non-labile. no SI/HI/AVH expressed. Diagnostics Vital Signs (24Hr): Vital Signs - 24 hr 07/28/22 18:00 07/28/22 21:36 07/29/22 08:10 Temperature 98.2 F 98.2 F 98.7 F Pulse Rate 78 83 75 Respiratory Rate 18 Blood Pressure 117/56 L 129/64 107/62 Pulse Oximetry 97 95 95 Oxygen Delivery Method Room Air Room Air Room Air BMI result Body Mass Index 26.2 Labs 07/23/22 20:00 07/23/22 20:00 Medications Medications Current Medications Acetaminophen (Acetaminophen 325 Mg Tablet) 650 mg PO Q6H PRN PRN Reason: Headache/Pain Mild Scale (1-3) Al Hydroxide/Mg Hydroxide (Magnesium Hydrox/Alum Hydrox 30 Ml Oral.Susp) 30 ml PO Q6H PRN PRN Reason: Heartburn/Nausea Carbamazepine (Carbamazepine Er 200 Mg Tab.Er.12h) 400 mg PO BEDTIME [facility] Last Admin: 07/28/22 22:12 Dose: 400 mg Carbamazepine (Carbamazepine Er 200 Mg Tab.Er.12h) 200 mg PO DAILY [facility] Last Admin: 07/29/22 08:51 Dose: 200 mg Haloperidol (Haloperidol 5 Mg Tablet) 5 mg PO QID PRN PRN Reason: psychosis, agitati [place] Carbonate ([place] Carbonate Er 300 Mg Tablet.Er) 600 mg PO DAILY [facility] Last Admin: 07/29/22 08:50 Dose: 600 mg [place] Carbonate ([place] Carbonate Er 450 Mg Tablet.Er) 900 mg PO BEDTIME [facility] Last Admin: 07/28/22 22:12 Dose: 900 mg Magnesium Hydroxide (Milk Of Magnesia 30 Ml Oral.Susp) 30 ml PO DAILY PRN PRN Reason: Constipation Olanzapine (Olanzapine 10 Mg Vial) 10 mg IM BID PRN PRN Reason: refusal of PO zyprexa, per debra Last Admin: 06/12/22 22:55 Dose: 10 mg Olanzapine (Olanzapine Odt 10 Mg Tab.Rapdis) 20 mg TRANSLINGU BEDTIME [facility] Last Admin: 07/28/22 22:12 Dose: 20 mg Olanzapine (Olanzapine Odt 10 Mg Tab.Rapdis) 20 mg TRANSLINGU DAILY [facility] Last Admin: 07/29/22 08:53 Dose: 20 mg Psyllium Hydrophilic Mucilloid (Psyllium Seed 3.4 Gm Powd.Pack) 3.4 gm PO BID [facility] Last Admin: 07/29/22 08:50 Dose: 3.4 gm Trazodone HCl (Trazodone Hcl 50 Mg Tablet) 50 mg PO BEDTIME PRN PRN Reason: Insomnia Last Admin: 05/27/22 20:11 Dose: 50 mg Allergies Allergies Allergy/AdvReac Type Severity Reaction Status Date / Time bupropion [From Wellbutrin] Allergy Mild CAUSES Unverified 03/07/20 15:04 SWOLLEN HEAD tetracycline [Tetracycline] Allergy Mild UNKNOWN Unverified 03/07/20 15:04 trifluoperazine Allergy Mild UNKNOWN Unverified 03/07/20 15:04 [From Stelazine] clozapine [From Clozaril] AdvReac Mild SEIZURES,NE Unverified 03/07/20 15:04 UTROPENIA Assessment & Plan Assessment & Plan (1) Schizoaffective disorder, bipolar type: Status: Acute Code(s): F25.0 - Schizoaffective disorder, bipolar type Plan Eriberto is a 56 y.o. male with a past medical history of schizoaffective disorder, bipolar type. He presented to [facility] on 05/07/22 due to grandiose, paranoid delusional thought content, command AH. Per pt?s gf, he had been doing well until 05/02/22, however began responding to internal stimuli and on 05/06/22 he emptied his medications down the garbage disposal. Hx of IPLOC on section 8 at [facility] in September- November 2021. Stabilized on lithium and olanzapine. Plan: Pt signed a CV, however does not appear to understand the conditional voluntary form and felt forced into doing this, states he is actually involuntary for the admission, will reject the CV. Will continue lithium 600 mg BID and olanzapine 30 mg HS, however pt says he intends to refuse. Li level 0.53 on admission. 05/08: Continue to offer meds, pt is intrusive, bizarre, makes vague statements about harming himself or others if forced to take meds, on 5 min checks 05/09: Refused to meet, declining medication 05/10: Refuses meds, not engaging in tx 05/11: Refuses meds, not engaging in tx. Pt is now a section VII. Will change olanzapine to ODT to promote adherence. 05/13: took meds last night. irritable, labile. reporting AH. 05/14 continue tx. 05/15: not consistently taking medication. hypersexual, bizarre. threatened to stab staff with scissors (which he had in his hand) and was not cooperative in returning razor to staff after shaving. 05/16 not taking meds, sect 7 continues offering meds. 05/17 continue tx. not taking meds ,pending court. 05/18: refusing meds. exposing his genitalia in the [place], licking the floor, throwing urine-soaked playing cards at staff. 05/19: refusing meds. ripped crowns off teeth and threw them away; smearing food on self and door; leaving urine footprints in the [place], smelling and dripping of the stuff. given medication restraint of zyprexa 10 and benadryl 50 IM after throwing hot soup in the milieu with peers in the area. 05/20: no change in presentation. refusing medications, denies he has mental illness. 05/21: sedated from having taken zyprexa 30 PO mg this morning. pushed staff in order to access kitchen last night, got zyprexa and benadryl IM after. 05/22: periods of agitation. defecated in shower. pacing, trying exits. cont inue current mgmt. 05/23: pt refusing meds, night prior he was disruptive on unit i.e. tearing up board games, intrusive towards peers 05/24: no med changes, refusing meds 05/25: refusing meds. court . wednesday was storing feces wrapped in paper towels on his shelving to save the universe. incontinent of urine in the milieu, slow to change/wash. 05/26: took zyprexa yesterday morning, refusing lithium. irritable. you are all lesbians trying to take over the world. 05/27: refusing meds. hearing tomorrow. to staff trying to administer meds: shove it up your ass! to female staff attempting to provide care: get out, bitch. you're a dog. get on your knees. [id number] declined mtg with TERA. 05/28: taking food from others' trays and throwing it away, masturbating in milieu, calling female staff bitch, ripped up checks sheet from off of [employer]s clipboard, urinating on floor, pouring bottle of water onto floor. committed and ordered medication. 05/29 continue tx, back up IM per court order. 05/30/2022: Has only received olanzapine for the last 1-2 days, therefore unable to clearly evaluate efficacy. Given intensity of behaviors and interactions and psychosis, Will add olanzapine in the morning time i.e. 10 mg morning and 30 mg at bedtime with 10 mg IM backup morning and bedtime. Haldol as needed. 05/31/2022: No changes to current plan. Did have medication restraint today. 06/01: no change to plan. irritable, delusional. 06/02: no change in plan or presentation. 06/03: bizarre delusions. destroyed and threw away peer's art project. misogynistic comments. 06/04: irritable, verbally aggressive, refusing PO meds and getting IMs instead. 06/05: less verbally aggressive and irritable. took PO meds this morning rather than receive IMs. 06/07 no changes to tx plan 06/08: taking IMs all weekend. less aggressive and irritable, still disorganized and delusional. 06/09: PO meds this morning. defecated in shower and engaging in feces play yesterday. poor sleep. presentation essentially unchanged from yesterday. 06/10: stable presentation. loud, droning, disorganized, incoherent. taking meds PO. continue current mgmt. 06/11: stable presentation. loud, droning, disorganized, incoherent. taking meds PO. continue current mgmt. 06/12: stable presentation. loud, droning, disorganized, incoherent. taking meds PO. continue current mgmt. 06/13: Pt refused PO meds on evening of 06/12, received IMs. no changes to tx. disorganized, psychotic. 06/14: adherent with PO meds, some inappropriate comments 06/15: off Q5 min checks, adherent with PO meds 06/16: Check lithium level patient irritable dysphoric easily agitated question med compliance question whether patient is responding to olanzapine. 06/17: no change in presentation. 06/18: no change in presentation. lithium 0.54. 06/19: continue current mgmt. per staff, taking meds with less resistance, brighter, less labile, less aggressive. informed peer he hears very loud voices and that is why he speaks so loudly and to pardon him. 06/20 Continue tx plan. 06/21 Continue tx plan. 06/22 Continue current tx plan. 06/23: no change in presentation. continue current mgmt. 06/24: no change in presentation. continue current mgmt. 06/25: agitation today on being presented with court orders, per his request. denies he has mental illness, gets angry, and verbally abuses MD. increase lithium dosing. 06/26: pt clearly angry with MD, citing information from court order. appears somewhat edematous in the face today, will follow (lithium dosing increased last night). 06/27 continue tx. 06/28 continue tx. 06/29: no change in mgmt. 06/30: no change in presentation, no change in mgmt. 07/01: continue current mgmt. slept 6 hours overnight. otherwise remains bizarre. 07/02: check lithium level. T/C adding tegretol to regimen as pt has had inadequate progress on current regimen. 07/03: lithium level remains around 0.55 despite increase in dosing. investigating use of liquid formulation with pharmacy. if liquid available will change to liquid 600 BID and check level again. if we are unable to improve clinical state with liquid lithium will add tegretol to regimen. 07/04: No changes to current treatment plan. 07/06: added 1:1 for 30 minutes post-medication to reduce possibility of cheeking/regurgitation. per pharmacy, liquid lithium has been discontinued. tegretol remains an option. 07/07: no change in presentation or plan. observe after med administration for 5 days, check lithium level. 07/08: laughing and joking with MD and SW. no longer hostile toward MD. sleeping better through the night. continues to endorse voices from afar. 07/09: i am not mentally ill, the voices tell me so. stable. 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 07/10: no change in presentation. continue current mgmt. 07/11: Continue current plans and regimen 07/12: Continue current regimen and plans 07/13: lithium 0.84 on 07/11, after 5 days 1:1 for 30 minutes post-prandial. confounder of lack of psyllium supplement co-incident. will continue to observe post-prandial this week while also receiving psyllium, check lithium level again toward end of week to resolve the question. remains with poor insight into mental illness as well as with symptoms. strongly considering the addition of tegretol as pt is not likely to remain compliant for long after discharge in present state. 07/14: continue current mgmt. 07/15: continue current mgmt. check labs tonight. 07/16: lithium level decreased with resumption of metamucil, indicating it is having a substantial impact on absorption. as pt is likely to take metamucil once he is home, will not alter orders. and as pt's delusions and hallucinations have not resolved with current therapy, will add tegretol to regimen as of today, at 200 mg BID. 07/17: uncharacteristically, pt says he will take the lithium and zyprexa for 2 years. he does not like the tegretol, which he feels has taken away his buzz and on which he cannot be happy. continue current mgmt. 07/18 no changes no changes in treatment 07/20: continue current mgmt. check tegretol level soon, adjust accordingly. 07/21: no change in presentation. plan to check tegretol level evening. 07/22: no change in presentation or plan. check tegretol tomorrow evening. 07/23: no change. check labs tonight. 07/24: tegretol 5.0, lithium 0.7 last night. increase tegretol dosing from 200 BID to 200/400, otherwise continue prior mgmt. 07/25: tolerated dose increase last night. only c/o some morning sedation. continue current mgmt. follow potential eye infection, T/C hospitalist consult. 07/26: continue current mgmt. [facility] services referral? 07/27: continue current mgmt. asking about next lab draw for tegretol level, which would be around 2/10. incremental gains. 07/28: stable presentation, continue current mgmt. 2/10 levels check. 07/29: stable, no change in mgmt. planning for DC on wednesday. case reviewed with BARBI psych MD. Reason for contiued inpatient stay Substantial Risk for: rapid decompensation Time Spent With Patient Time: Total time managing care of this patient today _35___ minutes.
[2022-07-29 22:04] VITALS: BP 120/71; PULSE 75; RESP 16; TEMP 36.1; O2SAT 96
[2022-07-29] MEDS: carBAMazepine ER 200 MG TAB.ER.12H 400 MG PO (22:11)
[2022-07-29] MEDS: Lithium Carbonate ER 450 MG TABLET.ER 900 MG PO (22:11)
[2022-07-30 07:00] VITALS: BMI 27.0
[2022-07-30 09:06] VITALS: BP 131/79; PULSE 76; RESP 16; TEMP 36.8; O2SAT 98
[2022-07-30] MEDS: carBAMazepine ER 200 MG TAB.ER.12H PO (09:09)
[2022-07-30] MEDS: OLANZapine ODT 10 MG TAB.RAPDIS 20 MG TRANSLINGU ×2 (09:09→21:52)
[2022-07-30] MEDS: Lithium Carbonate ER 300 MG TABLET.ER 600 MG PO (09:09)
--- NOTE | 2022-07-30 13:31 | P.PNPSI_ITS ---
Subjective Subjective Date of Service: 07/30/22 Reason For Visit: AH, delusional Interim History: calm, cooperative. planning for DC wednesday. MD attempts to emphasize severity of pt's illness and attributes improvement to medications. pt unable to recall his behaviors from early in the hospital and unwilling to accept these truths. MD encouraged him to get his medical record from the hospital after discharge. per staff, denies psych Sx or mental illness. eating, sleeping. attending groups. pleasant. slept through the night. Mental Status Exam Mental Status Exam Narrative: up and about the unit, appears adequately groomed. cooperative. no PMA/PMR. thoughts linear in brief interactions, speech less droning. affect constricted, hypo-intense, non-labile. mood OK. good, yeah. no SI/SIBI/HI/VH. reports a couple voices and thinking from afar. Diagnostics Vital Signs (24Hr): Vital Signs - 24 hr 07/29/22 22:04 07/30/22 09:06 Temperature 97.0 F 98.2 F Pulse Rate 75 76 Respiratory Rate 16 16 Blood Pressure 120/71 131/79 Pulse Oximetry 96 98 Oxygen Delivery Method Room Air Room Air BMI result Body Mass Index 27.0 Labs 07/23/22 20:00 07/23/22 20:00 Medications Medications Current Medications Acetaminophen (Acetaminophen 325 Mg Tablet) 650 mg PO Q6H PRN PRN Reason: Headache/Pain Mild Scale (1-3) Al Hydroxide/Mg Hydroxide (Magnesium Hydrox/Alum Hydrox 30 Ml Oral.Susp) 30 ml PO Q6H PRN PRN Reason: Heartburn/Nausea Carbamazepine (Carbamazepine Er 200 Mg Tab.Er.12h) 400 mg PO BEDTIME ANJUM Last Admin: 07/29/22 22:11 Dose: 400 mg Carbamazepine (Carbamazepine Er 200 Mg Tab.Er.12h) 200 mg PO DAILY ANJUM Last Admin: 07/30/22 09:09 Dose: 200 mg Haloperidol (Haloperidol 5 Mg Tablet) 5 mg PO QID PRN PRN Reason: psychosis, agitati Amberg Carbonate (Amberg Carbonate Er 300 Mg Tablet.Er) 600 mg PO DAILY ANJUM Last Admin: 07/30/22 09:09 Dose: 600 mg Amberg Carbonate (Amberg Carbonate Er 450 Mg Tablet.Er) 900 mg PO BEDTIME [facility] Last Admin: 07/29/22 22:11 Dose: 900 mg Magnesium Hydroxide (Milk Of Magnesia 30 Ml Oral.Susp) 30 ml PO DAILY PRN PRN Reason: Constipation Olanzapine (Olanzapine 10 Mg Vial) 10 mg IM BID PRN PRN Reason: refusal of PO zyprexa, per debra Last Admin: 06/12/22 22:55 Dose: 10 mg Olanzapine (Olanzapine Odt 10 Mg Tab.Rapdis) 20 mg TRANSLINGU BEDTIME ANJUM Last Admin: 07/29/22 22:10 Dose: 20 mg Olanzapine (Olanzapine Odt 10 Mg Tab.Rapdis) 20 mg TRANSLINGU DAILY ANJUM Last Admin: 07/30/22 09:09 Dose: 20 mg Psyllium Hydrophilic Mucilloid (Psyllium Seed 3.4 Gm Powd.Pack) 3.4 gm PO BID ANJUM Last Admin: 07/30/22 09:09 Dose: 3.4 gm Trazodone HCl (Trazodone Hcl 50 Mg Tablet) 50 mg PO BEDTIME PRN PRN Reason: Insomnia Last Admin: 05/27/22 20:11 Dose: 50 mg Allergies Allergies Allergy/AdvReac Type Severity Reaction Status Date / Time bupropion [From Wellbutrin] Allergy Mild CAUSES Unverified 03/07/20 15:04 SWOLLEN HEAD tetracycline [Tetracycline] Allergy Mild UNKNOWN Unverified 03/07/20 15:04 trifluoperazine Allergy Mild UNKNOWN Unverified 03/07/20 15:04 [From Stelazine] clozapine [From Clozaril] AdvReac Mild SEIZURES,NE Unverified 03/07/20 15:04 UTROPENIA Assessment & Plan Assessment & Plan (1) Schizoaffective disorder, bipolar type: Status: Acute Code(s): F25.0 - Schizoaffective disorder, bipolar type Plan Eriberto is a 56 y.o. male with a past medical history of schizoaffective disorder, bipolar type. He presented to [facility] on 05/07/22 due to grandiose, paranoid delusional thought content, command AH. Per pt?s gf, he had been doing well until 05/02/22, however began responding to internal stimuli and on 05/06/22 he emptied his medications down the garbage disposal. Hx of IPLOC on section 8 at [facility] in September- November 2021. Stabilized on lithium and olanzapine. Plan: Pt signed a CV, however does not appear to understand the conditional voluntary form and felt forced into doing this, states he is actually involuntar y for the admission, will reject the CV. Will continue lithium 600 mg BID and olanzapine 30 mg HS, however pt says he intends to refuse. Li level 0.53 on admission. 05/08: Continue to offer meds, pt is intrusive, bizarre, makes vague statements about harming himself or others if forced to take meds, on 5 min checks 05/09: Refused to meet, declining medication 05/10: Refuses meds, not engaging in tx 05/11: Refuses meds, not engaging in tx. Pt is now a section VII. Will change olanzapine to ODT to promote adherence. 05/13: took meds last night. irritable, labile. reporting AH. 05/14 continue tx. 05/15: not consistently taking medication. hypersexual, bizarre. threatened to stab staff with scissors (which he had in his hand) and was not cooperative in returning razor to staff after shaving. 05/16 not taking meds, sect 7 continues offering meds. 05/17 continue tx. not taking meds ,pending court. 05/18: refusing meds. exposing his genitalia in the [place], licking the floor, throwing urine-soaked playing cards at staff. 05/19: refusing meds. ripped crowns off teeth and threw them away; smearing food on self and door; leaving urine footprints in the [place], smelling and dripping of the stuff. given medication restraint of zyprexa 10 and benadryl 50 IM after throwing hot soup in the milieu with peers in the area. 05/20: no change in presentation. refusing medications, denies he has mental illness. 05/21: sedated from having taken zyprexa 30 PO mg this morning. pushed staff in order to access kitchen last night, got zyprexa and benadryl IM after. 05/22: periods of agitation. defecated in shower. pacing, trying exits. continue current mgmt. 05/23: pt refusing meds, night prior he was disruptive on unit i.e. tearing up board games, intrusive towards peers 05/24: no med changes, refusing meds 05/25: refusing meds. court . wednesday was storing feces wrapped in paper towels on his shelving to save the universe. incontinent of urine in the milieu, slow to change/wash. 05/26: took zyprexa yesterday morning, refusing lithium. irritable. you are all lesbians trying to take over the world. 05/27: refusing meds. hearing tomorrow. to staff trying to administer meds: shove it up your ass! to female staff attempting to provide care: get out, bitch. you're a dog. get on your knees. [id number] declined mtg with TERA. 05/28: taking food from others' trays and throwing it away, masturbating in milieu, calling female staff bitch, ripped up checks sheet from off of [employer]'s clipboard, urinating on floor, pouring bottle of water onto floor. committed and ordered medication. 05/29 continue tx, back up IM per court order. 05/30/2022: Has only received olanzapine for the last 1-2 days, therefore unable to clearly evaluate efficacy. Given intensity of behaviors and interactions and psychosis, Will add olanzapine in the morning time i.e. 10 mg morning and 30 mg at bedtime with 10 mg IM backup morning and bedtime. Haldol as needed. 05/31/2022: No changes to current plan. Did have medication restraint today. 06/01: no change to plan. irritable, delusional. 06/02: no change in plan or presentation. 06/03: bizarre delusions. destroyed and threw away peer's art project. misogynistic comments. 06/04: irritable, verbally aggressive, refusing PO meds and getting IMs instead. 06/05: less verbally aggressive and irritable. took PO meds this morning rather than receive IMs. 06/07 no changes to tx plan 06/08: taking IMs all weekend. less aggressive and irritable, still disorganized and delusional. 06/09: PO meds this morning. defecated in shower and engaging in feces play yesterday. poor sleep. presentation essentially unchanged from yesterday. 06/10: stable presentation. loud, droning, disorganized, incoherent. taking meds PO. continue current mgmt. 06/11: stable presentation. loud, droning, disorganized, incoherent. taking meds PO. continue current mgmt. 06/12: stable presentation. loud, droning, disorganized, incoherent. taking meds PO. continue current mgmt. 06/13: Pt refused PO meds on evening of 06/12, received IMs. no changes to tx. disorganized, psychotic. 06/14: adherent with PO meds, some inappropriate comments 06/15: off Q5 min checks, adherent with PO meds 06/16: Check lithium level patient irritable dysphoric easily agitated question med compliance question whether patient is responding to olanzapine. 06/17: no change in presentation. 06/18: no change in presentation. lithium 0.54. 06/19: continue current mgmt. per staff, taking meds with less resistance, brighter, less labile, less aggressive. informed peer he hears very loud voices and that is why he speaks so loudly and to pardon him. 06/20 Continue tx plan. 06/21 Continue tx plan. 06/22 Continue current tx plan. 06/23: no change in presentation. continue current mgmt. 06/24: no change in presentation. continue current mgmt. 06/25: agitation today on being presented with court orders, per his request. denies he has mental illness, gets angry, and verbally abuses MD. increase lithium dosing. 06/26: pt clearly angry with MD, citing information from court order. appears somewhat edematous in the face today, will follow (lithium dosing increased last night). 06/27 continue tx. 06/28 continue tx. 06/29: no change in mgmt. 06/30: no change in presentation, no change in mgmt. 07/01: continue current mgmt. slept 6 hours overnight. otherwise remains bizarre. 07/02: check lithium level. T/C adding tegretol to regimen as pt has had inadequate progress on current regimen. 07/03: lithium level remains around 0.55 despite increase in dosing. inv estigating use of liquid formulation with pharmacy. if liquid available will change to liquid 600 BID and check level again. if we are unable to improve clinical state with liquid lithium will add tegretol to regimen. 07/04: No changes to current treatment plan. 07/06: added 1:1 for 30 minutes post-medication to reduce possibility of cheeking/regurgitation. per pharmacy, liquid lithium has been discontinued. tegretol remains an option. 07/07: no change in presentation or plan. observe after med administration for 5 days, check lithium level. 07/08: laughing and joking with MD and SW. no longer hostile toward MD. sleeping better through the night. continues to endorse voices from afar. 07/09: i am not mentally ill, the voices tell me so. stable. as of 07/11 will have had 5 days of supervised time for 30 minutes after rn medication and will recheck lithium level and labs. 07/10: no change in presentation. continue current mgmt. 07/11: Continue current plans and regimen 07/12: Continue current regimen and plans 07/13: lithium 0.84 on 07/11, after 5 days 1:1 for 30 minutes post-prandial. confounder of lack of psyllium supplement co-incident. will continue to observe post-prandial this week while also receiving psyllium, check lithium level again toward end of week to resolve the question. remains with poor insight into mental illness as well as with symptoms. strongly considering the addition of tegretol as pt is not likely to remain compliant for long after discharge in present state. 07/14: continue current mgmt. 07/15: continue current mgmt. check labs tonight. 07/16: lithium level decreased with resumption of metamucil, indicating it is having a substantial impact on absorption. as pt is likely to take metamucil once he is home, will not alter orders. and as pt's delusions and hallucinations have not resolved with current therapy, will add tegretol to regimen as of today, at 200 mg BID. 07/17: uncharacteristically, pt says he will take the lithium and zyprexa for 2 years. he does not like the tegretol, which he feels has taken away his buzz and on which he cannot be happy. continue current mgmt. 07/18 no changes no changes in treatment 07/20: continue current mgmt. check tegretol level soon, adjust accordingly. 07/21: no change in presentation. plan to check tegretol level evening. 07/22: no change in presentation or plan. check tegretol tomorrow evening. 07/23: no change. check labs tonight. 07/24: tegretol 5.0, lithium 0.7 last night. increase tegretol dosing from 200 BID to 200/400, otherwise continue prior mgmt. 07/25: tolerated dose increase last night. only c/o some morning sedation. continue current mgmt. follow potential eye infection, T/C hospitalist consult. 07/26: continue current mgmt. [facility] services referral? 07/27: continue current mgmt. asking about next lab draw for tegretol level, which would be around 2/10. incremental gains. 07/28: stable presentation, continue current mgmt. 2 levels check. 07/29: stable, no change in mgmt. planning for DC on wednesday. case reviewed with BARBI psych MD. 07/30: stable. denies mental illness, endorses AH. check levels tomorrow night and adjust tegretol accordingly. Reason for contiued inpatient stay Substantial Risk for: inability to function and rapid decompensation Time Spent With Patient Time: Total time managing care of this patient today __25__ minutes.
--- NOTE | 2022-07-30 16:00 | PM.PSYDC ---
DS: Providers Provider Date of Service: 08/03/22 Date of admission: 05/07/22 18:38 Primary care physician: Unknown Physician DS: Diagnosis Discharge Diagnosis (1) Schizoaffective disorder, bipolar type: Status: Acute DS: Medications Discharge Medications Home Medications: Previous Rx's Medication Instructions Recorded lithium carbonate 300 mg 600 mg PO BID 30 days #120 tabs 11/21/21 tablet,extended release olanzapine 10 mg tablet 30 mg PO BEDTIME 30 days #90 tabs 11/21/21 psyllium husk (aspartame) 3.4 gram 3.4 g PO DAILY 30 days #500 grams 11/21/21 oral powder packet (Metamucil Fiber Singles) Data Data Completed and Pending Completed studies during hospitalization [Text1]: 07/23/22 07/23/22 07/23/22 20:00 20:00 20:00 WBC 7.3 RBC 4.66 Hgb 15.0 Hct 43.8 MCV 94.0 MCH 32.2 MCHC 34.2 RDW 13.4 Plt Count 257 MPV 10.8 Immature Gran % (Auto) 0.1 Neut % (Auto) 56.1 Lymph % (Auto) 26.6 [place] % (Auto) 9.6 Eos % (Auto) 6.5 H Baso % (Auto) 1.1 Lymph # (Auto) 1.9 [place] # (Auto) 0.7 Eos # (Auto) 0.5 H Baso # (Auto) 0.1 Abs Immat Gran (auto) 0.01 Absolute Neuts (auto) 4.1 Absolute Nucleated RBC 0.000 Nucleated RBC % (auto) 0.0 Sodium 140 Potassium 4.4 Chloride 107 Carbon Dioxide 24 Anion Gap 13 BUN 18 H Creatinine 0.87 Estim Creat Clear Calc 113.6 Estimated GFR > 60 Random Glucose 91 Calcium 9.1 Total Bilirubin 0.2 Direct Bilirubin < 0.2 AST 21 ALT 27 Alkaline Phosphatase 61 Total Protein 6.6 Albumin 4.2 Carbamazepine 5.0 [place] 07/23/22 20:00 WBC RBC Hgb Hct MCV MCH MCHC RDW Plt Count MPV Immature Gran % (Auto) Neut % (Auto) Lymph % (Auto) [place] % (Auto) Eos % (Auto) Baso % (Auto) Lymph # (Auto) [place] # (Auto) Eos # (Auto) Baso # (Auto) Abs Immat Gran (auto) Absolute Neuts (auto) Absolute Nucleated RBC Nucleated RBC % (auto) Sodium Potassium Chloride Carbon Dioxide Anion Gap BUN Creatinine Estim Creat Clear Calc Estimated GFR Random Glucose Calcium Total Bilirubin Direct Bilirubin AST ALT Alkaline Phosphatase Total Protein Albumin Carbamazepine [place] 0.70 DS: Summary Hospital Course Hospital Course: per 05/07/22 admission note: Eriberto is a 56 y.o. male with a past medical history of schizoaffective disorder, bipolar type. He presented to [facility] on [place]07[place], brought in after pt?s gf called [facility] to get pt a sooner psychopharm appointment, however pt began yelling at the RN on the phone, who then called EMS to bring him to the hospital. He endorsed paranoid delusional thought content about medication and says he does not need medication. Per pt?s gf, he had been doing well until this past Wednesday, however began responding to internal stimuli and on 05/06/22 he emptied his medications down the garbage disposal. I spoke with pt this evening. He reports he does not know why he is in the hospital and that ?you women are trying to abuse and kill men and take the [place] over for yourselves.? Otherwise, says he is ?good.? Reports issues with sleep, ?I slept good last night, the two nights before I didn?t sleep much? and ?some nights I don?t need sleep, some nights I do need sleep.? Says his energy is good. Appetite is good. Endorses AH, hears voices ?from afar,? says he hears male and female voices and they are ?infatuated with me,? talk about him, denies that the voices bother him. Pt says he hears voices because of his genetics and that he is ?a high testosterone male.? Has VH, sees ?people, spirits, and god.? Says he threw his meds away because he doesn?t want any more medications, ?they weren?t working? and they were ?making me live a shorter life,? feels they are bad for his brain and body and make him want to commit crimes. Last night was first time stopped taking them, Li level 0.53. Says his gf ?thinks I need medication,? but ?superior gods and ravinder gods? tell him he doesn?t need medication. Has sexual preoccupation/ amorous delusions, says his gf is ?not attractive or special enough to help me with my life? and he wants ?a more special gf.? Then says he has a new special gf who lives in [place], he communicates with her ?with my mind, with our love.? Denies anxiety. Denies anger. ?Denies depression, denies SI/SIB. Denies HI/assaultive ideation, but then says ?I might have to hurt someone if I was forced to take a medication,? when asked how he would hurt someone he says ?I don?t want to explain it.? Past Psychiatric History: -Has OP psych services at [facility], Psychiatrist is Urban Nolasco -Hx of [facility], last on M3 09/20/21-11/21/21 on section 8 -Denies hx of suicide attempts or SIB -Past meds: lamictal, bupropion XL (?makes you numb?), Stelazine (took at age 14, ?burned my skull and my bones?), clozapine (says he had a seizure on higher dose) Medical Evaluation Reviewed: Yes [facility] Social History: -Pt born and raised in [place], has two brothers, parents are both .? -Lives with his gf for over 16 years, not , no children. -Unemployed, has SSDI. In the past he worked at [employer], [email or web address]. -Hx of being in [place] as young adult Substance History: -Denies Trauma History: -Not discussed Precis: Eriberto is a 56 y.o. male with a past medical history of schizoaffective disorder, bipolar type. He presented to [facility] on 05/07/22 due to grandiose, paranoid delusional thought content, command AH. Per pt?s gf, he had been doing well until 05/02/22, however began responding to internal stimuli and on 05/06/22 he emptied his medications down the garbage disposal. Hx of IPLOC on section 8 at [facility] in September- November 2021. Stabilized on lithium and olanzapine. Plan: Pt signed a CV, however does not appear to understand the conditional voluntary form and felt forced into doing this, states he is actually involuntary for the admission, will reject the CV. Will continue lithium 600 mg BID and olanzapine 30 mg HS, however pt says he intends to refuse. Li level 0.53 on admission. 05/08: Continue to offer meds, pt is intrusive, bizarre, makes vague statements about harming himself or others if forced to take meds, on 5 min checks 05/09: Refused to meet, declining medication 05/10: Refuses meds, not engaging in tx 05/11: Refuses meds, not engaging in tx. Pt is now a section VII. Will change olanzapine to ODT to promote adherence. 05/13: took meds last night.? irritable, labile.? reporting AH. 05/14 continue tx. 05/15: not consistently taking medication.? hypersexual, bizarre.? threatened to stab staff with scissors (which he had in his hand) and was not cooperative in returning razor to staff after shaving. 05/16 not taking meds, sect 7 continues offering meds. 05/17 continue tx. not taking meds ,pending court. 05/18: refusing meds.? exposing his genitalia in the skelton, licking the floor, throwing urine-soaked playing cards at staff. 05/19: refusing meds.? ripped crowns off teeth and threw them away; smearing food on self and door; leaving urine footprints in the skelton, smelling and dripping of the stuff.? given medication restraint of zyprexa 10 and benadryl 50 IM after throwing hot soup in the milieu with peers in the area. 05/20: no change in presentation.? refusing medications, denies he has mental illness. 05/21: sedated from having taken zyprexa 30 PO mg this morning.? pushed staff in order to access kitchen last night, got zyprexa and benadryl IM after. 05/22: periods of agitation.? defecated in shower.? pacing, trying exits.? continue current mgmt. 05/23: pt refusing meds, night prior he was disruptive on unit i.e. tearing up board games, intrusive towards peers 05/24: no med changes, refusing meds 05/25: refusing meds.? court thursday.? wednesday was storing feces wrapped in paper towels on his shelving to save the universe. ? incontinent of urine in the milieu, slow to change/wash. 05/26: took zyprexa yesterday morning, refusing lithium.? irritable.? you are all lesbians trying to take over the world. 05/27: refusing meds.? hearing tomorrow.? to staff trying to administer meds: shove it up your ass! ? to female staff attempting to provide care: get out, bitch.? you're a dog.? get on your knees. ? [id number] declined mtg with TERA. 05/28: taking food from others' trays and throwing it away, masturbating in milieu, calling female staff bitch, ripped up checks sheet from off of [employer]'s clipboard, urinating on floor, pouring bottle of water onto floor.? committed and ordered medication. 05/29 continue tx, back up IM per court order. 05/30/2022:? Has only received olanzapine for the last 1-2 days, therefore unable to clearly evaluate efficacy.? Given intensity of behaviors and interactions and psychosis,? Will add olanzapine in the morning time i.e. 10 mg morning and 30 mg at bedtime with 10 mg IM backup morning and bedtime.? Haldol as needed. 05/31/2022: No changes to current plan.? Did have medication restraint today. 06/01: no change to plan.? irritable, delusional. 06/02: no change in plan or presentation. 06/03: bizarre delusions.? destroyed and threw away peer's art project. misogynistic comments. 06/04: irritable, verbally aggressive, refusing PO meds and getting IMs instead. 06/05: less verbally aggressive and irritable.? took PO meds this morning rather than receive IMs. 06/07 no changes to tx plan 06/08: taking IMs all weekend.? less aggressive and irritable, still disorganized and delusional. 06/09: PO meds this morning.? defecated in shower and engaging in feces play yesterday.? poor sleep.? presentation essentially unchanged from yesterday. 06/10: stable presentation.? loud, droning, disorganized, incoherent.? taking meds PO.? continue current mgmt. 06/11: stable presentation.? loud, droning, disorganized, incoherent.? taking meds PO.? continue current mgmt. 06/12: stable presentation.? loud, droning, disorganized, incoherent.? taking meds PO.? continue current mgmt. 06/13: Pt refused PO meds on evening of 06/12, received IMs. no changes to tx. disorganized, psychotic. 06/14: adherent with PO meds, some inappropriate comments 06/15: off Q5 min checks, adherent with PO meds 06/16:? Check lithium level patient irritable dysphoric easily agitated question med compliance question whether patient is responding to olanzapine. 06/17: no change in presentation. 06/18: no change in presentation.? lithium 0.54. 06/19: continue current mgmt.? per staff, taking meds with less resistance, brighter, less labile, less aggressive.? informed peer he hears very loud voices and that is why he speaks so loudly and to pardon him. 06/20 Continue tx plan. 06/21 Continue tx plan. 06/22 Continue current tx plan. 06/23: no change in presentation.? continue current mgmt. 06/24: no change in presentation.? continue current mgmt. 06/25: agitation today on being presented with court orders, per his request.? denies he has mental illness, gets angry, and verbally abuses MD.? increase lithium dosing. 06/26: pt clearly angry with MD, citing information from court order.? appears somewhat edematous in the face today, will follow (lithium dosing increased last night). 06/27 continue tx. 06/28 continue tx. 06/29: no change in mgmt. 06/30: no change in presentation, no change in mgmt. 07/01: continue current mgmt.? slept 6 hours overnight.? otherwise remains bizarre. 07/02: check lithium level.? T/C adding tegretol to regimen as pt has had inadequate progress on current regimen. 07/03:? lithium level remains around 0.55 despite increase in dosing.? investigating use of liquid formulation with pharmacy.? if liquid available will change to liquid 600 BID and check level again.? if we are unable to improve clinical state with liquid lithium will add tegretol to regimen. 07/04: No changes to current treatment plan. 07/06: added 1:1 for 30 minutes post-medication to reduce possibility of cheeking/regurgitation.? per pharmacy, liquid lithium has been discontinued.? tegretol remains an option. 07/07: no change in presentation or plan.? observe after med administration for 5 days, check lithium level. 07/08: laughing and joking with MD and SW.? no longer hostile toward MD.? sleeping better through the night.? continues to endorse voices from afar. 07/09: i am not mentally ill, the voices tell me so. ? stable.? as of 07/11 will have had 5 days of supervised time for 30 minutes after medical illustrator and will recheck lithium level and labs. 07/10: no change in presentation.? continue current mgmt. 07/11: Continue current plans and regimen 07/12: Continue current regimen and plans 07/13: lithium 0.84 on 07/11, after 5 days 1:1 for 30 minutes post-prandial.? confounder of lack of psyllium supplement co-incident.? will continue to observe post-prandial this week while also receiving psyllium, check lithium level again toward end of week to resolve the question.? remains with poor insight into mental illness as well as with symptoms.? strongly considering the addition of tegretol as pt is not likely to remain compliant for long after discharge in present state. 07/14: continue current mgmt. 07/15: continue current mgmt.? check labs tonight. 07/16: lithium level decreased with resumption of metamucil, indicating it is having a substantial impact on absorption.? as pt is likely to take metamucil once he is home, will not alter orders.? and as pt's delusions and hallucinations have not resolved with current therapy, will add tegretol to regimen as of today, at 200 mg BID. 07/17:? uncharacteristically, pt says he will take the lithium and zyprexa for 2 years.? he does not like the tegretol, which he feels has taken away his buzz and on which he cannot be happy.? continue current mgmt. 07/18 no changes no changes in treatment 07/20: continue current mgmt.? check tegretol level soon, adjust accordingly. 07/21: no change in presentation.? plan to check tegretol level evening. 07/22: no change in presentation or plan.? check tegretol tomorrow evening. 07/23: no change.? check labs tonight. 07/24: tegretol 5.0, lithium 0.7 last night.? increase tegretol dosing from 200 BID to 200/400, otherwise continue prior mgmt. 07/25: tolerated dose increase last night.? only c/o some morning sedation.? continue current mgmt.? follow potential eye infection, T/C hospitalist consult. 07/26: continue current mgmt.? [facility] services referral? 07/27: continue current mgmt.? asking about next lab draw for tegretol level, which would be around 07/31.? incremental gains. 07/28: stable presentation, continue current mgmt.? 07/31 levels check. 07/29: stable, no change in mgmt.? planning for DC on wednesday.? case reviewed with [facility] psych MD. 07/30: stable.? denies mental illness, endorses AH.? check levels tomorrow night and adjust tegretol accordingly. 07/31 Continue tx. dc Wednesday. 08/03: no notable events, stable, DC per plan. Time Spent with Patient Time attestation: Total time managing care of this patient today ____ minutes. Time spent: Less than 30 minutes Discharge Plan Discharge Anticipated Discharge Date/Time: 08/03/22 09:09 Patient Disposition: Home, Self-Care Discharge Diagnosis: Schizoaffective disorder, bipolar type Referrals: Alise Soriano - [facility] [Other] - 1 Week ([facility] Nurse will see you for first visit on Wednesday08.04.22) Urban Nolasco (Psychiatry) [Other] - 08/12/22 9:00 am (IN OFFICE APPOINTMENT) Chapito Santos (Therapy) [Other] - 08/11/22 12:30 pm [facility] [Physician] - 1 Week Discharge Medications: New carbamazepine 400 mg tablet extended release 12 hr 400 mg PO BEDTIME Qty: 30 0RF carbamazepine 200 mg Tablet Extended Release 12 Hr 200 mg PO DAILY Qty: 30 0RF lithium carbonate 600 mg capsule 600 mg PO DAILY Qty: 30 0RF lithium carbonate 450 mg Tablet Extended Release 900 mg PO BEDTIME Qty: 60 0RF olanzapine 20 mg tablet 20 mg PO BID Qty: 60 0RF trazodone 50 mg Tablet 50 mg PO BEDTIME PRN (Reason: Insomnia) Qty: 30 0RF Metamucil Fiber Singles 3.4 gram Powder In Packet 3.4 g PO BID Qty: 0 0RF Discontinued lithium carbonate 300 mg Tablet Extended Release 600 mg PO BID 30 Days Qty: 120 0RF Metamucil Fiber Singles 3.4 gram Powder In Packet 3.4 g PO DAILY 30 Days Qty: 500 0RF olanzapine 10 mg tablet 30 mg PO BEDTIME 30 Days Qty: 90 0RF Discharge Orders: Discharge Order (Routine); Ordered 08/03/22 Ordered By: Chana Clemente Diet: Regular diet Activity on Discharge: As tolerated Stand Alone Forms: Patient Portal Discharge page, Community Support Care Plan Goals: 1. Maintain mood 2. No SI/HI 3. Less psychosis and delusions 4. No aggression towards self or others. Health Concerns: Follow up with PCP Plan of Treatment: 1. Take medications as prescribed 2. Go to nearest ED or call 911 in event of emergency. Assessment: Pt with constricted affect. NO SI/HI. Less psychosis and delusions. No signs of aggression towards self or others. Sleeping and eating well. No insight into mental illness and need to continue OP psych tx. Discharge Date/Time: 08/03/22 11:18
[2022-07-30 21:50] VITALS: BP 126/70; PULSE 78; RESP 18; TEMP 36.8; O2SAT 95
[2022-07-30] MEDS: Lithium Carbonate ER 450 MG TABLET.ER 900 MG PO (21:51)
[2022-07-30] MEDS: carBAMazepine ER 200 MG TAB.ER.12H 400 MG PO (21:51)
[2022-07-31 08:45] VITALS: BP 121/62; PULSE 75; RESP 18; TEMP 36.6; O2SAT 95
[2022-07-31] MEDS: Lithium Carbonate ER 300 MG TABLET.ER 600 MG PO (09:04)
[2022-07-31] MEDS: OLANZapine ODT 10 MG TAB.RAPDIS 20 MG TRANSLINGU ×2 (09:04→22:01)
[2022-07-31] MEDS: carBAMazepine ER 200 MG TAB.ER.12H PO (09:04)
--- NOTE | 2022-07-31 12:30 | P.PNPSI_ITS ---
Subjective Subjective Date of Service: 07/31/22 Reason For Visit: AH, delusional Subjective Notes: Section 8 Interim History: Pt looking forward to be being discharge on [place]. He requests discharged at 11am. He denies SI/HI. He reports he is sleeping and eating well. No behavioral concerns. He denies VH/AH, no insight into mental illness or need for psychiatric tx. Medication Compliance: Yes Review of Systems Review of Systems Yes all other systems are reviewed and are negative, Unobtainable due to mental status and Other ( ) Reports Abnormal speech present Mental Status Exam Mental Status Exam Narrative: up and about the unit, appears adequately groomed. cooperative. no PMA/PMR. thoughts linear in brief interactions, speech less droning. affect constricted, hypo-intense, non-labile. mood OK. good, yeah. no SI/SIBI/HI/VH. reports a couple voices and thinking from afar. Diagnostics Vital Signs (24Hr): Vital Signs - 24 hr 07/31/22 21:05 Temperature 97.8 F Pulse Rate 69 Respiratory Rate 16 Blood Pressure 138/77 Pulse Oximetry 97 Oxygen Delivery Method Room Air BMI result Body Mass Index 27.0 Labs 07/31/22 20:08 07/31/22 20:08 Labs: Laboratory Results - last 48 hr 07/31/22 07/31/22 07/31/22 20:08 20:08 20:08 WBC 9.1 RBC 4.69 Hgb 15.2 Hct 43.8 MCV 93.4 MCH 32.4 MCHC 34.7 RDW 13.2 Plt Count 270 MPV 9.8 Immature Gran % (Auto) 0.2 Neut % (Auto) 57.9 Lymph % (Auto) 29.7 [place] % (Auto) 8.3 Eos % (Auto) 3.0 Baso % (Auto) 0.9 Lymph # (Auto) 2.7 [place] # (Auto) 0.8 Eos # (Auto) 0.3 Baso # (Auto) 0.1 Abs Immat Gran (auto) 0.02 Absolute Neuts (auto) 5.3 Absolute Nucleated RBC 0.000 Nucleated RBC % (auto) 0.0 Sodium 139 Potassium 4.1 Chloride 106 Carbon Dioxide 24 Anion Gap 13 BUN 14 Creatinine 0.87 Estim Creat Clear Calc 112.2 Estimated GFR > 60 Random Glucose 78 Calcium 9.5 Total Bilirubin 0.6 Direct Bilirubin 0.2 AST 19 ALT 25 Alkaline Phosphatase 60 Total Protein 6.7 Albumin 4.3 Carbamazepine 5.0 [place] 07/31/22 20:08 WBC RBC Hgb Hct MCV MCH MCHC RDW Plt Count MPV Immature Gran % (Auto) Neut % (Auto) Lymph % (Auto) [place] % (Auto) Eos % (Auto) Baso % (Auto) Lymph # (Auto) [place] # (Auto) Eos # (Auto) Baso # (Auto) Abs Immat Gran (auto) Absolute Neuts (auto) Absolute Nucleated RBC Nucleated RBC % (auto) Sodium Potassium Chloride Carbon Dioxide Anion Gap BUN Creatinine Estim Creat Clear Calc Estimated GFR Random Glucose Calcium Total Bilirubin Direct Bilirubin AST ALT Alkaline Phosphatase Total Protein Albumin Carbamazepine [place] 0.62 Medications Medications Current Medications Acetaminophen (Acetaminophen 325 Mg Tablet) 650 mg PO Q6H PRN PRN Reason: Headache/Pain Mild Scale (1-3) Al Hydroxide/Mg Hydroxide (Magnesium Hydrox/Alum Hydrox 30 Ml Oral.Susp) 30 ml PO Q6H PRN PRN Reason: Heartburn/Nausea Carbamazepine (Carbamazepine Er 200 Mg Tab.Er.12h) 400 mg PO BEDTIME [facility] Last Admin: 07/31/22 22:01 Dose: 400 mg Carbamazepine (Carbamazepine Er 200 Mg Tab.Er.12h) 200 mg PO DAILY [facility] Last Admin: 08/01/22 08:23 Dose: 200 mg Haloperidol (Haloperidol 5 Mg Tablet) 5 mg PO QID PRN PRN Reason: psychosis, agitati [place] Carbonate ([place] Carbonate Er 300 Mg Tablet.Er) 600 mg PO DAILY [facility] Last Admin: 08/01/22 08:23 Dose: 600 mg [place] Carbonate ([place] Carbonate Er 450 Mg Tablet.Er) 900 mg PO BEDTIME [facility] Last Admin: 07/31/22 22:01 Dose: 900 mg Magnesium Hydroxide (Milk Of Magnesia 30 Ml Oral.Susp) 30 ml PO DAILY PRN PRN Reason: Constipation Olanzapine (Olanzapine 10 Mg Vial) 10 mg IM BID PRN PRN Reason: refusal of PO zyprexa, per debra Last Admin: 06/12/22 22:55 Dose: 10 mg Olanzapine (Olanzapine Odt 10 Mg Tab.Rapdis) 20 mg TRANSLINGU BEDTIME [facility] Last Admin: 07/31/22 22:01 Dose: 20 mg Olanzapine (Olanzapine Odt 10 Mg Tab.Rapdis) 20 mg TRANSLINGU DAILY [facility] Last Admin: 02/11/23 08:23 Dose: 20 mg Psyllium Hydrophilic Mucilloid (Psyllium Seed 3.4 Gm Powd.Pack) 3.4 gm PO BID [facility] Last Admin: 08/01/22 08:23 Dose: 3.4 gm Trazodone HCl (Trazodone Hcl 50 Mg Tablet) 50 mg PO BEDTIME PRN PRN Reason: Insomnia Last Admin: 05/27/22 20:11 Dose: 50 mg Allergies Allergies Allergy/AdvReac Type Severity Reaction Status Date / Time bupropion [From Wellbutrin] Allergy Mild CAUSES Unverified 03/07/20 15:04 SWOLLEN HEAD tetracycline [Tetracycline] Allergy Mild UNKNOWN Unverified 03/07/20 15:04 trifluoperazine Allergy Mild UNKNOWN Unverified 03/07/20 15:04 [From Stelazine] clozapine [From Clozaril] AdvReac Mild SEIZURES,NE Unverified 03/07/20 15:04 UTROPENIA Assessment & Plan Assessment & Plan (1) Schizoaffective disorder, bipolar type: Status: Acute Code(s): F25.0 - Schizoaffective disorder, bipolar type Plan Eriberto is a 56 y.o. male with a past medical history of schizoaffective disorder, bipolar type. He presented to [facility] on 05/07/22 due to grandiose, paranoid delusional thought content, command AH. Per pt?s gf, he had been doing well until 05/02/22, however began responding to internal stimuli and on 05/06/22 he emptied his medications down the garbage disposal. Hx of IPLOC on section 8 at [facility] M3 in September- November 2021. Stabilized on lithium and olanzapine. Plan: Pt signed a CV, however does not appear to understand the conditional voluntary form and felt forced into doing this, states he is actually involuntary for the admission, will reject the CV. Will continue lithium 600 mg BID and olanzapine 30 mg HS, however pt says he intends to refuse. Li level 0.53 on admission. 05/08: Continue to offer meds, pt is intrusive, bizarre, makes vague statements about harming himself or others if forced to take meds, on 5 min checks 05/09: Refused to meet, declining medication 05/10: Refuses meds, not engaging in tx 05/11: Refuses meds, not engaging in tx. Pt is now a section VII. Will change olanzapine to ODT to promote adherence. 05/13: took meds last night. irritable, labile. reporting AH. 05/14 continue tx. 05/15: not consistently taking medication. hypersexual, bizarre. threatened to stab staff with scissors (which he had in his hand) and was not cooperative in returning razor to staff after shaving. 05/16 not taking meds, sect 7 continues offering meds. 05/17 continue tx. not taking meds ,pending court. 05/18: refusing meds. exposing his genitalia in the [place], licking the floor, throwing urine-soaked playing cards at staff. 05/19: refusing meds. ripped crowns off teeth and threw them away; smearing food on self and door; leaving urine footprints in the [place], smelling and dripping of the stuff. given medication restraint of zyprexa 10 and benadryl 50 IM after throwing hot soup in the milieu with peers in the area. 05/20: no change in presentation. refusing medications, denies he has mental illness. 05/21: sedated from having taken zyprexa 30 PO mg this morning. pushed staff in order to access kitchen last night, got zyprexa and benadryl IM after. 05/22: periods of agitation. defecated in shower. pacing, trying exits. continue current mgmt. 05/23: pt refusing meds, night prior he was disruptive on unit i.e. tearing up board games, intrusive towards peers 05/24: no med changes, refusing meds 05/25: refusing meds. court . wednesday was storing feces wrapped in paper towels on his shelving to save the universe. incontinent of urine in the milieu, slow to change/wash. 05/26: took zyprexa yesterday morning, refusing lithium. irritable. you are all lesbians trying to take over the world. 05/27: refusing meds. hearing tomorrow. to staff trying to administer meds: shove it up your ass! to female staff attempting to provide care: get out, bitch. you're a dog. get on your knees. [id number] declined mtg with TERA. 05/28: taking food from others' trays and throwing it away, masturbating in milieu, calling female staff bitch, ripped up checks sheet from off of [employer]'s clipboard, urinating on floor, pouring bottle of water onto floor. committed and ordered medication. 05/29 continue tx, back up IM per court order. 05/30/2022: Has only received olanzapine for the last 1-2 days, therefore unable to clearly evaluate efficacy. Given intensity of behaviors and interactions and psychosis, Will add olanzapine in the morning time i.e. 10 mg morning and 30 mg at bedtime with 10 mg IM backup morning and bedtime. Haldol as needed. 05/31/2022: No changes to current plan. Did have medication restraint today. 06/01: no change to plan. irritable, delusional. 06/02: no change in plan or presentation. 06/03: bizarre delusions. destroyed and threw away peer's art project. misogynistic comments. 06/04: irritable, verbally aggressive, refusing PO meds and getting IMs instead. 06/05: less verbally aggressive and irritable. took PO meds this morning rather than receive IMs. 06/07 no changes to tx plan 06/08: taking IMs all weekend. less aggressive and irritable, still disorganized and delusional. 06/09: PO meds this morning. defecated in shower and engaging in feces play yesterday. poor sleep. presentation essentially unchanged from yesterday. 06/10: stable presentation. loud, droning, disorganized, incoherent. taking meds PO. continue current mgmt. 06/11: stable presentation. loud, droning, disorganized, incoherent. taking meds PO. continue current mgmt. 06/12: stable presentation. loud, droning, disorganized, incoherent. taking meds PO. continue current mgmt. 06/13: Pt refused PO meds on evening of 06/12, received IMs. no changes to tx. disorganized, psychotic. 06/14: adherent with PO meds, some inappropriate comments 06/15: off Q5 min checks, adherent with PO meds 06/16: Check lithium level patient irritable dysphoric easily agitated question med compliance question whether patient is responding to olanzapine. 06/17: no change in presentation. 06/18: no change in presentation. lithium 0.54. 06/19: continue current mgmt. per staff, taking meds with less resistance, brighter, less labile, less aggressive. informed peer he hears very loud voices and that is why he speaks so loudly and to pardon him. 06/20 Continue tx plan. 06/21 Continue tx plan. 06/22 Continue current tx plan. 06/23: no change in presentation. continue current mgmt. 06/24: no change in presentation. continue current mgmt. 06/25: agitation today on being presented with court orders, per his request. denies he has mental illness, gets angry, and verbally abuses MD. increase lithium dosing. 06/26: pt clearly angry with MD, citing information from court order. appears somewhat edematous in the face today, will follow (lithium dosing increased last night). 06/27 continue tx. 06/28 continue tx. 06/29: no change in mgmt. 06/30: no change in presentation, no change in mgmt. 07/01: continue current mgmt. slept 6 hours overnight. otherwise remains bizarre. 07/02: check lithium level. T/C adding tegretol to regimen as pt has had inadequate progress on current regimen. 07/03: lithium level remains around 0.55 despite increase in dosing. investigating use of liquid formulation with pharmacy. if liquid available will change to liquid 600 BID and check level again. if we are unable to improve clinical state with liquid lithium will add tegretol to regimen. 07/04: No changes to current treatment plan. 07/06: added 1:1 for 30 minutes post-medication to reduce possibility of cheeking/regurgitation. per pharmacy, liquid lithium has been discontinued. tegretol remains an option. 07/07: no change in presentation or plan. observe after med administration for 5 days, check lithium level. 07/08: laughing and joking with MD and SW. no longer hostile toward MD. sleeping better through the night. continues to endorse voices from afar. 07/09: i am not mentally ill, the voices tell me so. stable. as of 07/11 will have had 5 days of supervised time for 30 minutes after medical office receptionist and will recheck lithium level and labs. 07/10: no change in presentation. continue current mgmt. 07/11: Continue current plans and regimen 07/12: Continue current regimen and plans 07/13: lithium 0.84 on 07/11, after 5 days 1:1 for 30 minutes post-prandial. confounder of lack of psyllium supplement co-incident. will continue to observe post-prandial this week while also receiving psyllium, check lithium level again toward end of week to resolve the question. remains with poor insight into mental illness as well as with symptoms. strongly considering the addition of tegretol as pt is not likely to remain compliant for long after discharge in present state. 07/14: continue current mgmt. 07/15: continue current mgmt. check labs tonight. 07/16: lithium level decreased with resumption of metamucil, indicating it is having a substantial impact on absorption. as pt is likely to take metamucil once he is home, will not alter orders. and as pt's delusions and hallucinations have not resolved with current therapy, will add tegretol to regimen as of today, at 200 mg BID. 07/17: uncharacteristically, pt says he will take the lithium and zyprexa for 2 years. he does not like the tegretol, which he feels has taken away his buzz and on which he cannot be happy. continue current mgmt. 07/18 no changes no changes in treatment 07/20: continue current mgmt. check tegretol level soon, adjust accordingly. 07/21: no change in presentation. plan to check tegretol level evening. 07/22: no change in presentation or plan. check tegretol tomorrow evening. 07/23: no change. check labs tonight. 07/24: tegretol 5.0, lithium 0.7 last night. increase tegretol dosing from 200 BID to 200/400, otherwise continue prior mgmt. 07/25: tolerated dose increase last night. only c/o some morning sedation. continue current mgmt. follow potential eye infection, T/C hospitalist consult. 07/26: continue current mgmt. [facility] services referral? 07/27: continue current mgmt. asking about next lab draw for tegretol level, which would be around 2/10. incremental gains. 07/28: stable presentation, continue current mgmt. 07/31 levels check. 07/29: stable, no change in mgmt. planning for DC on wednesday. case reviewed with [facility] psych MD. 07/30: stable. denies mental illness, endorses AH. check levels tomorrow night and adjust tegretol accordingly. 07/31 Continue tx. dc Wednesday. Reason for contiued inpatient stay Substantial Risk for: inability to function Time Spent With Patient Time: Total time managing care of this patient today ____ minutes.
[2022-07-31 20:17] LABS: MANUAL DIFF FLAG NO
[2022-07-31 20:18] LABS: Basophils Absolute Auto 0.1 X10*3/uL (0.0-0.2); Basophils Percent Auto 0.9 % (0-2); Eosinophils Absolute Auto 0.3 X10*3/uL (0.0-0.4); Hematocrit 43.8 % (42.0-52.0); Hemoglobin 15.2 g/dl (14.0-18.0); Imm Gran Abs Auto 0.02 X10*3/uL (0.00-0.03); Imm Gran Pct Auto 0.2 % (0.0-0.4); Lymphocytes Absolute Auto 2.7 X10*3/uL (1.2-4.9); Lymphocytes Percent Auto 29.7 % (20-40); Mean Corpuscular HGB Conc 34.7 g/dl (31.0-36.0); Mean Corpuscular Hemoglobin 32.4 pg (27.0-33.0); Mean Corpuscular Volume 93.4 fL (80.0-98.0); Mean Platelet Volume 9.8 fL (9.4-12.4); Monocytes Absolute Auto 0.8 X10*3/uL (0.1-1.2); Monocytes Percent Auto 8.3 % (2-11); Neutrophils Absolute Auto 5.3 x10*3/uL (2.0-8.3); Neutrophils Percent Auto 57.9 % (45-73); Platelet Count 270 X10*3/uL (160-400); Red Blood Count 4.69 X10*6/uL (4.60-5.80); Red Cell Distribution Width 13.2 % (11.0-16.0); White Blood Count 9.1 X10*3/uL (4.8-10.8)
[2022-07-31 20:26] LABS: Lithium 0.62 mmol/L (0.60-1.20)
[2022-07-31 20:37] LABS: Alanine Aminotransferase 25 U/L (0-40); Albumin Level 4.3 g/dL (3.5-5.0); Alkaline Phosphatase 60 U/L (39-117); Anion Gap 13 (12-20); Aspartate Amino Transferase 19 U/L (5-37); Bilirubin Direct 0.2 mg/dL (0.0-0.5); Bilirubin Total 0.6 mg/dL (0.0-1.0); Blood Urea Nitrogen 14 mg/dL (9-16); Calcium 9.5 mg/dL (8.4-10.2); Carbon Dioxide 24 mmol/L (22-29); Chloride 106 mmol/L (96-108); Creatinine Clr Calc Pharmacy 112.2; Estimated Glomerular Filt Rate > 60; Glucose Random 78 mg/dL (60-115); Potassium 4.1 mmol/L (3.3-5.1); Sodium 139 mmol/L (135-145); Total Protein 6.7 g/dL (6.5-8.0)
[2022-07-31 21:05] VITALS: BP 138/77; PULSE 69; RESP 16; TEMP 36.6; O2SAT 97
[2022-07-31] MEDS: carBAMazepine ER 200 MG TAB.ER.12H 400 MG PO (22:01)
[2022-07-31] MEDS: Lithium Carbonate ER 450 MG TABLET.ER 900 MG PO (22:01)
[2022-08-01] MEDS: Lithium Carbonate ER 300 MG TABLET.ER 600 MG PO (08:23)
[2022-08-01] MEDS: OLANZapine ODT 10 MG TAB.RAPDIS 20 MG TRANSLINGU ×2 (08:23→22:01)
[2022-08-01] MEDS: carBAMazepine ER 200 MG TAB.ER.12H PO (08:23)
[2022-08-01 09:06] VITALS: BP 119/72; PULSE 71; RESP 16; TEMP 36.7; O2SAT 97
[2022-08-01 20:31] VITALS: BP 141/80; PULSE 71; RESP 16; TEMP 36.8; O2SAT 99
[2022-08-01] MEDS: Lithium Carbonate ER 450 MG TABLET.ER 900 MG PO (22:02)
[2022-08-01] MEDS: carBAMazepine ER 200 MG TAB.ER.12H 400 MG PO (22:03)
[2022-08-02 06:00] VITALS: BP 126/70; PULSE 79; RESP 15; TEMP 36.7; O2SAT 96
[2022-08-02] MEDS: Lithium Carbonate ER 300 MG TABLET.ER 600 MG PO (08:06)
[2022-08-02] MEDS: carBAMazepine ER 200 MG TAB.ER.12H PO (08:06)
[2022-08-02] MEDS: OLANZapine ODT 10 MG TAB.RAPDIS 20 MG TRANSLINGU ×2 (08:06→22:16)
--- NOTE | 2022-08-02 10:15 | HO.PSYCHPN ---
Subjective Subjective Date of Service: 08/02/22 Reason For Visit: AH, delusional Subjective Notes: Section 8 Interim History: Pt says he is ready for discharge on [place]. He requests discharged at 11am. He presents anxious but polite and cooperative; He denies SI/HI. He reports he is sleeping and eating well. No behavioral concerns. He denies VH/AH, no insight into mental illness or need for psychiatric tx. Medication Compliance: Yes Side effects from medications: No Review of Systems Acute medical concerns: No Medical Review of Systems: unchanged Review of Systems Review of Systems no change Yes all other systems are reviewed and are negative, Unobtainable due to mental status and Other ( ) Reports Abnormal speech present Mental Status Exam Mental Status Exam Narrative: up and about the unit, appears adequately groomed. anxious, cooperative. no PMA/PMR. thoughts linear in brief interactions, speech less droning. affect constricted, hypo-intense, non-labile. mood OK. good, yeah. no SI/SIBI/HI/VH. reports a couple voices and thinking from afar. Patient Appearance: Appropriate Patient Orientation: Person and Situation Level of Consciousness: Awake and Appropriate Patient Behavior: Guarded and Passive Mood Description: Withdrawn Affect Description: Constricted Ability to Follow Directions: Good Speech Pattern: Clear Diagnostics Vital Signs (24Hr): Vital Signs - 24 hr 08/01/22 20:31 08/02/22 06:00 Temperature 98.3 F 98.1 F Pulse Rate 71 79 Respiratory Rate 16 15 Blood Pressure 141/80 H 126/70 Pulse Oximetry 99 96 Oxygen Delivery Method Room Air Room Air BMI result Body Mass Index 27.0 Labs 07/31/22 20:08 07/31/22 20:08 Labs: Laboratory Results - last 48 hr 07/31/22 07/31/22 07/31/22 20:08 20:08 20:08 WBC 9.1 RBC 4.69 Hgb 15.2 Hct 43.8 MCV 93.4 MCH 32.4 MCHC 34.7 RDW 13.2 Plt Count 270 MPV 9.8 Immature Gran % (Auto) 0.2 Neut % (Auto) 57.9 Lymph % (Auto) 29.7 [place] % (Auto) 8.3 Eos % (Auto) 3.0 Baso % (Auto) 0.9 Lymph # (Auto) 2.7 [place] # (Auto) 0.8 Eos # (Auto) 0.3 Baso # (Auto) 0.1 Abs Immat Gran (auto) 0.02 Absolute Neuts (auto) 5.3 Absolute Nucleated RBC 0.000 Nucleated RBC % (auto) 0.0 Sodium 139 Potassium 4.1 Chloride 106 Carbon Dioxide 24 Anion Gap 13 BUN 14 Creatinine 0.87 Estim Creat Clear Calc 112.2 Estimated GFR > 60 Random Glucose 78 Calcium 9.5 Total Bilirubin 0.6 Direct Bilirubin 0.2 AST 19 ALT 25 Alkaline Phosphatase 60 Total Protein 6.7 Albumin 4.3 Carbamazepine 5.0 [place] 07/31/22 20:08 WBC RBC Hgb Hct MCV MCH MCHC RDW Plt Count MPV Immature Gran % (Auto) Neut % (Auto) Lymph % (Auto) [place] % (Auto) Eos % (Auto) Baso % (Auto) Lymph # (Auto) [place] # (Auto) Eos # (Auto) Baso # (Auto) Abs Immat Gran (auto) Absolute Neuts (auto) Absolute Nucleated RBC Nucleated RBC % (auto) Sodium Potassium [place] Carbon Dioxide Anion Gap BUN Creatinine Estim Creat Clear Calc Estimated GFR Random Glucose Calcium Total Bilirubin Direct Bilirubin AST ALT Alkaline Phosphatase Total Protein Albumin Carbamazepine [place] 0.62 Medications Medications Current Medications Acetaminophen (Acetaminophen 325 Mg Tablet) 650 mg PO Q6H PRN PRN Reason: Headache/Pain Mild Scale (1-3) Al Hydroxide/Mg Hydroxide (Magnesium Hydrox/Alum Hydrox 30 Ml Oral.Susp) 30 ml PO Q6H PRN PRN Reason: Heartburn/Nausea Carbamazepine (Carbamazepine Er 200 Mg Tab.Er.12h) 400 mg PO BEDTIME [facility] Last Admin: 08/01/22 22:03 Dose: 400 mg Carbamazepine (Carbamazepine Er 200 Mg Tab.Er.12h) 200 mg PO DAILY [facility] Last Admin: 08/02/22 08:06 Dose: 200 mg Haloperidol (Haloperidol 5 Mg Tablet) 5 mg PO QID PRN PRN Reason: psychosis, agitati [place] Carbonate ([place] Carbonate Er 300 Mg Tablet.Er) 600 mg PO DAILY [facility] Last Admin: 08/02/22 08:06 Dose: 600 mg [place] Carbonate ([place] Carbonate Er 450 Mg Tablet.Er) 900 mg PO BEDTIME [facility] Last Admin: 08/01/22 22:02 Dose: 900 mg Magnesium Hydroxide (Milk Of Magnesia 30 Ml Oral.Susp) 30 ml PO DAILY PRN PRN Reason: Constipation Olanzapine (Olanzapine 10 Mg Vial) 10 mg IM BID PRN PRN Reason: refusal of PO zyprexa, per debra Last Admin: 06/12/22 22:55 Dose: 10 mg Olanzapine (Olanzapine Odt 10 Mg Tab.Rapdis) 20 mg TRANSLINGU BEDTIME [facility] Last Admin: 08/01/22 22:01 Dose: 20 mg Olanzapine (Olanzapine Odt 10 Mg Tab.Rapdis) 20 mg TRANSLINGU DAILY [facility] Last Admin: 08/02/22 08:06 Dose: 20 mg Psyllium Hydrophilic Mucilloid (Psyllium Seed 3.4 Gm Powd.Pack) 3.4 gm PO BID [facility] Last Admin: 08/02/22 08:07 Dose: 3.4 gm Trazodone HCl (Trazodone Hcl 50 Mg Tablet) 50 mg PO BEDTIME PRN PRN Reason: Insomnia Last Admin: 05/27/22 20:11 Dose: 50 mg Allergies Allergies Allergy/AdvReac Type Severity Reaction Status Date / Time bupropion [From Wellbutrin] Allergy Mild CAUSES Unverified 03/07/20 15:04 SWOLLEN HEAD tetracycline [Tetracycline] Allergy Mild UNKNOWN Unverified 03/07/20 15:04 trifluoperazine Allergy Mild UNKNOWN Unverified 03/07/20 15:04 [From Stelazine] clozapine [From Clozaril] AdvReac Mild SEIZURES,NE Unverified 03/07/20 15:04 UTROPENIA Assessment & Plan Assessment & Plan (1) Schizoaffective disorder, bipolar type: Status: Acute Code(s): F25.0 - Schizoaffective disorder, bipolar type Plan Eriberto is a 56 y.o. male with history of schizoaffective disorder, bipolar type. Plan: continue treatment plan Reason for contiued inpatient stay Substantial Risk for: inability to function Time Spent With Patient Time: Total time managing care of this patient today ____ minutes.
[2022-08-02 21:00] VITALS: BP 157/86; PULSE 78; RESP 16; TEMP 36.3; O2SAT 97
[2022-08-02] MEDS: Lithium Carbonate ER 450 MG TABLET.ER 900 MG PO (22:16)
[2022-08-02] MEDS: carBAMazepine ER 200 MG TAB.ER.12H 400 MG PO (22:16)
[2022-08-03 08:00] VITALS: BP 122/74; PULSE 76; TEMP 36.4; O2SAT 97
[2022-08-03] MEDS: Lithium Carbonate ER 300 MG TABLET.ER 600 MG PO (09:04)
[2022-08-03] MEDS: carBAMazepine ER 200 MG TAB.ER.12H PO (09:05)
[2022-08-03] MEDS: OLANZapine ODT 10 MG TAB.RAPDIS 20 MG TRANSLINGU (09:06)
--- NOTE | 2022-08-03 10:34 | PC.NURSE ---
Patient alert, oriented x2. Denies SI/HI, does admit to voices 'from afar' but feels safe and ready for discharge. Denies VH. Patient's brother will pick patient up and transport home. Reviewed discharge instructions and belongings, patient verbalized understanding, no concerns reported re: belongings that were not addressed to his satisfaction.
== END 2022-08-03 11:18 | disposition home or self-care (01) | DRG 885 ==
LOC: HO.ED 17:41 → HO.PADLT16 18:44
PROVIDERS: Psychiatry & Neurology Psychiatry; Registered Nurse; Admitting Provider Psychiatry & Neurology Psychiatry; Emergency Provider Emergency Medicine; Visit Provider Psychiatry & Neurology Psychiatry
DX: F25.0 Schizoaffective disorder, bipolar type (principal); Z20.822 Contact with and (suspected) exposure to COVID-19; Z88.1 Allergy status to other antibiotic agents; Z88.8 Allergy status to other drugs, medicaments and biological substances; Z79.899 Other long term (current) drug therapy
CPT/HCPCS: 36415; 80048; 80053; 80061; 80076; 80143; 80156; 80178; 80179; 80307; 82077; 82248; 82607; 82746; 83690; 83735; 84439; 84443; 85025; 87635; 93005; 99285; J1200; J2060

== ENCOUNTER 2022-09-14 08:42 | Outpatient (REF) | payer OTHER, SELFPAY ==
[2022-09-14 10:17] LABS: Lithium 0.81 mmol/L (0.60-1.20)
[2022-09-14 10:31] LABS: Anion Gap 10 (12-20); Blood Urea Nitrogen 8 mg/dL (9-16); Calcium 9.1 mg/dL (8.4-10.2); Carbon Dioxide 24 mmol/L (22-29); Chloride 109 mmol/L (96-108); Estimated Glomerular Filt Rate > 60; Glucose Random 117 mg/dL (60-115); Sodium 139 mmol/L (135-145)
[2022-09-14 10:49] LABS: Thyroid Stimulating Hormone 3.69 uIU/mL (0.32-4.0)
== END 2022-09-14 08:43 | disposition home or self-care (01) ==
LOC: HO.LAB 08:42
PROVIDERS: Visit Provider Clinical Nurse Specialist Psychiatric/Mental Health, Adult
DX: Z79.899 Other long term (current) drug therapy (principal)
CPT/HCPCS: 36415; 80048; 80178; 84443

== ENCOUNTER 2022-10-08 08:24 | Outpatient (REF) | payer OTHER, SELFPAY ==
[2022-10-08 09:51] LABS: Lithium 0.48 mmol/L (0.60-1.20)
== END 2022-10-08 08:25 | disposition home or self-care (01) ==
LOC: HO.LAB 08:24
PROVIDERS: PCP Nurse Practitioner Family; Visit Provider Clinical Nurse Specialist Psychiatric/Mental Health, Adult
DX: Z79.899 Other long term (current) drug therapy (principal)
CPT/HCPCS: 36415; 80178

== ENCOUNTER 2022-10-15 08:21 | Outpatient (REF) | payer OTHER, SELFPAY ==
[2022-10-15 09:11] LABS: Lithium 0.76 mmol/L (0.60-1.20)
== END 2022-10-15 08:22 | disposition home or self-care (01) ==
LOC: HO.LAB 08:21
PROVIDERS: PCP Nurse Practitioner Family; Visit Provider Clinical Nurse Specialist Psychiatric/Mental Health, Adult
DX: Z79.899 Other long term (current) drug therapy (principal)
CPT/HCPCS: 36415; 80178

== ENCOUNTER 2022-12-02 11:27 | Inpatient (IN) | payer OTHER, SELFPAY ==
[2022-12-02 12:06] VITALS: BP 144/79; BP 180/88; PULSE 88; PULSE 89; RESP 18; TEMP 37; O2SAT 94; O2SAT 95; BMI 28.2
--- NOTE | 2022-12-02 12:17 | ED.GENADULT ---
HPI - General Adult General Chief complaint: Psychiatric Symptoms Stated complaint: Unknown due to bad patch with EMS Time Seen by Provider: 12/02/22 12:17 Source: patient and EMS Mode of arrival: EMS Limitations: no limitations History of Present Illness HPI narrative: Patient is a 57 year old assigned male at with a history of schizoaffective disorder presenting to the emergency department today with increased delusions and medication non-compliance. Patient states that his is putting voices in his pills so he won't be taking them. Patient denies any dizziness, lightheadedness, abdominal pain, nausea, vomiting, fever, chills, blurry vision, double vision, loss of vision, chest pain, difficulty breathing, shortness of breath, back pain, night sweats, pain with urination, increased urinary frequency, increased urinary urgency, blood in his urine or stool, syncope or a near syncopal episode, recent trauma or falls, bowel incontinence, bladder incontinence, bowel retention, bladder retention, or any other complaints at this time. Relieving factors: none Exacerbating factors: none Associated symptoms: denies other symptoms Treatments prior to arrival: none Related Data Previous Rx's Medication Instructions Recorded carbamazepine 200 mg 200 mg PO DAILY #30 tabs 08/03/22 tablet,extended release,12 hr carbamazepine 400 mg 400 mg PO BEDTIME #30 tabs 08/03/22 tablet,extended release,12 hr lithium carbonate 450 mg 900 mg PO BEDTIME #60 tabs 08/03/22 tablet,extended release lithium carbonate 600 mg capsule 600 mg PO DAILY #30 caps 08/03/22 olanzapine 20 mg tablet 20 mg PO BID #60 tabs 08/03/22 psyllium husk (aspartame) 3.4 gram 3.4 g PO BID #0 ea 08/03/22 oral powder packet (Metamucil Fiber Singles) trazodone 50 mg tablet 50 mg PO BEDTIME PRN Insomnia #30 08/03/22 tabs Allergies Allergy/AdvReac Type Severity Reaction Status Date / Time bupropion [From Wellbutrin] Allergy Mild CAUSES Unverified 03/07/20 15:04 SWOLLEN HEAD tetracycline [Tetracycline] Allergy Mild UNKNOWN Unverified 03/07/20 15:04 trifluoperazine Allergy Mild UNKNOWN Unverified 03/07/20 15:04 [From Stelazine] clozapine [From Clozaril] AdvReac Mild SEIZURES,NE Unverified 03/07/20 15:04 UTROPENIA Review of Systems Constitutional: Constitutional: Reports no additional constitutional complaints, Denies chills, Denies fever(s) and Denies night sweats Eyes: Eyes: Reports no additional eye complaints, Denies blurry vision, Denies change in vision, Denies diplopia, Denies eye discharge, Denies loss of vision and Denies eye pain ENT: Denies dizziness Cardiovascular: Cardiovascular: Reports no additional cardiovascular complaints, Denies chest pain, Denies lightheadedness, Denies Loss of Consciousness and Denies dyspnea Respiratory: Respiratory: Reports no additional respiratory complaints and Denies dyspnea Gastrointestinal: Gastrointestinal: Reports no additional gastrointestinal complaints, Denies abdominal pain, Denies melena, Denies hematochezia, Denies change in bowel habits and Denies change in stool character Genitourinary: Genitourinary: Reports no additional male genitourinary complaints, Denies hematuria, Denies oliguria, Denies difficulty urinating, Denies dysuria, Denies urinary frequency, Denies urinary hesitancy, Denies urinary incontinence and Denies urinary urgency Musculoskeletal: Musculoskeletal: Reports no additional musculoskeletal complaints, Denies numbness and Denies tingling Neurologic: Reports behavioral changes, Denies dizziness, Denies loss of vision, Denies numbness and Denies tingling Psychiatric: Psychiatric: Reports behavioral changes and Reports visual hallucinations Endocrine: Endocrine: Reports no additional endocrine complaints Hematologic/Lymphatic: Hematologic/Lymphatic: Reports no additional hematologic/lymphatic complaints Allergic/Immunologic: Allergic/Immunologic: Reports no additional allergic/immunologic complaints [facility] Past Medical History Attestation statement: The following information was validated with the patient. Source: old records reviewed and nursing notes reviewed Social History Social History Household Members: Significant Other and Other Household Members Other:: Girlfriend and her father. Housing: Unknown / Unable to assess Alcohol intake: unknown Patient Tobacco Use Status: Never used Tobacco e-Cigarette/Vaping Use: Never Used Second Hand Smoke Exposure: No Substance Use Type: Caffiene Advance Directives: No service: Yes (5-6 weeks in the [employer]) Sexual orientation: Straight/Heterosexual Physical Exam ED Vital Signs: Vital Signs - 24 hr 12/02/22 12:06 Temperature 98.6 F Pulse Rate 88 Respiratory Rate 18 Blood Pressure 144/79 H Pulse Oximetry 95 Oxygen Delivery Method Room Air BMI result Body Mass Index 28.2 Const General: cooperative, no acute distress, alert and awake Nutritional Appearance: well nourished Orientation/consciousness: patient oriented x3 Limitations: no limitations HENMT Head: Yes normal to inspection and Yes atraumatic Ears: hearing grossly normal bilaterally and external ears normal General nose exam: Normal external nose present, no nasal discharge noted and no epistaxis Face and sinus: Yes normal facial exam, No abrasion and No laceration Mouth: Normal oral and palatal mucosa present, no drooling and no muffled voice Eyes General: appearance normal, both eyes and all related structures Periorbital: periorbital findings normal Eyelids: Yes eyelids normal Conjunctivae: conjunctivae normal Pupils: Equal, round and reactive pupils present EOM: EOMs intact bilaterally Neck Neck: Yes normal visual inspection, Yes full ROM and Yes no lymphadenopathy Chest Chest palpation & inspection: normal inspection of the chest Resp Effort & Inspection: normal respiratory effort and able to speak in complete sentences GI Inspection: Yes normal to inspection Neuro General: patient oriented x3 and moves all extremities Cranial nerves: Yes Equal, round and reactive pupils present Cognition (Neuro): normal cognition Motor exam (neuro): 5/5 motor strength present throughout Sensory Exam: Normal double simultaneous stimulation for sensation Coordination: [id number] test normal Extrem General: Yes normal to inspection, Yes full ROM and Yes capillary refill normal Psych Appearance: grossly normal Mental Status: mental status grossly normal Thought content: Paranoid delusions present Medical Decision Making Medical Decision Making [facility] Narrative: Patient is a 57 year old assigned male at with a history of schizoaffective presenting to the emergency department today with delusions. Patient's physical exam showed a paranoid individual. Patient's blood work was unremarkable. Patient's EKG was unremarkable. I explained my physical exam findings as well as all test results to the patient. I answered all questions asked by the patient. Patient is on a section 12 currently awaiting CARE team evaluation. Differential Diagnosis Differential Diagnoses: The differential diagnosis associated with the presentation includes medication non-compliance, psychosis Admission/Observation Consideration of admission/observation: Escalation of care including admission/observation considered Patient's disposition pending CARE team evaluation. Lab Data [facility] Lab Attestation statement: I reviewed the patient's lab results. My interpretation of these studies and their corresponding values is that they are grossly normal. 12/02/22 12:41 12/02/22 12:41 Labs: Lab Results 12/02/22 12/02/22 12/02/22 Range/Units 12:34 12:40 12:40 WBC (4.8-10.8) X10*3/uL RBC (4.60-5.80) X10*6/uL Hgb (14.0-18.0) g/dl Hct (42.0-52.0) % MCV (80.0-98.0) fL MCH (27.0-33.0) pg MCHC (31.0-36.0) g/dl RDW (11.0-16.0) % Plt Count (160-400) X10*3/uL MPV (9.4-12.4) fL Immature Gran % (Auto) (0.0-0.4) % Neut % (Auto) (45-73) % Lymph % (Auto) (20-40) % [place] % (Auto) (2-11) % Eos % (Auto) (0-4) % Baso % (Auto) (0-2) % Lymph # (Auto) (1.2-4.9) X10*3/uL [place] # (Auto) (0.1-1.2) X10*3/uL Eos # (Auto) (0.0-0.4) X10*3/uL Baso # (Auto) (0.0-0.2) X10*3/uL Abs Immat Gran (auto) (0.00-0.03) X10*3/uL Absolute Neuts (auto) (2.0-8.3) x10*3/uL Absolute Nucleated RBC (0.0-0.012) X10*3/uL Nucleated RBC % (auto) (0.0-0.2) /100WBC Sodium (135-145) mmol/L Potassium (3.3-5.1) mmol/L Chloride (96-108) mmol/L Carbon Dioxide (22-29) mmol/L Anion Gap (12-20) BUN (9-16) mg/dL Creatinine (0.5-1.4) mg/dL Estim Creat Clear Calc Estimated GFR Random Glucose (60-115) mg/dL Calcium (8.4-10.2) mg/dL Total Bilirubin (0.0-1.0) mg/dL AST (5-37) U/L ALT (0-40) U/L Alkaline Phosphatase (39-117) U/L Total Protein (6.5-8.0) g/dL Albumin (3.5-5.0) g/dL Urine Color Dark Yellow Urine Appearance Clear Urine pH 6.0 (5.0-9.0) Ur Specific Avery 1.020 (1.005-1.025) Urine Protein Negative (Neg-Trace) mg/dL Urine Glucose (UA) Negative (Negative) mg/dL Urine Ketones Trace (Negative) mg/dL Urine Blood Negative (Negative) Urine Nitrite Negative (Negative) Ur Leukocyte Esterase Negative (Negative) Salicylates (15-30) mg/dL Urine Opiates Screen Not Detected (Not Detect) Urine Fentanyl Screen Not Detected (Not Detect) Acetaminophen (<30) mcg/mL Ur Barbiturates Screen Not Detected (Not Detect) Ur Phencyclidine Scrn Not Detected (Not Detect) Ur Amphetamines Screen Not Detected (Not Detect) U Benzodiazepines Scrn Not Detected (Not Detect) Urine Cocaine Screen Not Detected (Not Detect) U Marijuana (THC) Screen Not Detected (Not Detect) Ethyl Alcohol mg/dL COVID-19 (RYAN) Negative (Negative) COVID-19 Clin Com See Note 12/02/22 12/02/22 12/02/22 Range/Units 12:41 12:41 12:41 WBC 6.4 (4.8-10.8) X10*3/uL RBC 4.62 (4.60-5.80) X10*6/uL Hgb 15.0 (14.0-18.0) g/dl Hct 43.3 (42.0-52.0) % MCV 93.7 (80.0-98.0) fL MCH 32.5 (27.0-33.0) pg MCHC 34.6 (31.0-36.0) g/dl RDW 12.5 (11.0-16.0) % Plt Count 268 (160-400) X10*3/uL MPV 10.6 (9.4-12.4) fL Immature Gran % (Auto) 0.3 (0.0-0.4) % Neut % (Auto) 70.6 (45-73) % Lymph % (Auto) 19.2 L (20-40) % [place] % (Auto) 7.8 (2-11) % Eos % (Auto) 1.2 (0-4) % Baso % (Auto) 0.9 (0-2) % Lymph # (Auto) 1.2 (1.2-4.9) X10*3/uL [place] # (Auto) 0.5 (0.1-1.2) X10*3/uL Eos # (Auto) 0.1 (0.0-0.4) X10*3/uL Baso # (Auto) 0.1 (0.0-0.2) X10*3/uL Abs Immat Gran (auto) 0.02 (0.00-0.03) X10*3/uL Absolute Neuts (auto) 4.5 (2.0-8.3) x10*3/uL Absolute Nucleated RBC 0.000 (0.0-0.012) X10*3/uL Nucleated RBC % (auto) 0.0 (0.0-0.2) /100WBC Sodium 140 (135-145) mmol/L Potassium 3.9 (3.3-5.1) mmol/L Chloride 110 H (96-108) mmol/L Carbon Dioxide 24 (22-29) mmol/L Anion Gap 10 L (12-20) BUN 11 (9-16) mg/dL Creatinine 0.72 (0.5-1.4) mg/dL Estim Creat Clear Calc 139.4 Estimated GFR > 60 Random Glucose 126 H (60-115) mg/dL Calcium 9.3 (8.4-10.2) mg/dL Total Bilirubin 0.3 (0.0-1.0) mg/dL AST 18 (5-37) U/L ALT 17 (0-40) U/L Alkaline Phosphatase 49 (39-117) U/L Total Protein 7.1 (6.5-8.0) g/dL Albumin 4.3 (3.5-5.0) g/dL Urine Color Urine Appearance Urine pH (5.0-9.0) Ur Specific Avery (1.005-1.025) Urine Protein (Neg-Trace) mg/dL Urine Glucose (UA) (Negative) mg/dL Urine Ketones (Negative) mg/dL Urine Blood (Negative) Urine Nitrite (Negative) Ur Leukocyte Esterase (Negative) Salicylates < 5.0 L (15-30) mg/dL Urine Opiates Screen (Not Detect) Urine Fentanyl Screen (Not Detect) Acetaminophen < 17 (<30) mcg/mL Ur Barbiturates Screen (Not Detect) Ur Phencyclidine Scrn (Not Detect) Ur Amphetamines Screen (Not Detect) U Benzodiazepines Scrn (Not Detect) Urine Cocaine Screen (Not Detect) U Marijuana (THC) Screen (Not Detect) Ethyl Alcohol < 10 mg/dL COVID-19 (RYAN) (Negative) COVID-19 Clin Com Independent Interpretation I performed an independent interpretation of an: EKG Interpretation: Vent. Rate: 073 BPM ? ? Atrial Rate: 073 BPM P-R Int: 166 ms? QRS Dur: 106 ms QT Int: 390 ms ? ? ? P-R-T Axes: 068 018 044 degrees QTc Int: 429 ms ? Normal sinus rhythm Normal ECG When compared with ECG of 07-MAY-2022 14:03, No significant change was found DD/ 1231 Independent Historian Clinical information obtained from an independent historian. History obtained from or confirmed by: EMS (EMS provided additional history and confirmed history provided by the patient. ) Discharge Plan Discharge Clinical Impression: Schizoaffective disorder, bipolar type Patient Disposition: Still a Patient Prescriptions: No Action carbamazepine 400 mg tablet extended release 12 hr 400 mg PO BEDTIME Qty: 30 0RF carbamazepine 200 mg Tablet Extended Release 12 Hr 200 mg PO DAILY Qty: 30 0RF lithium carbonate 600 mg capsule 600 mg PO DAILY Qty: 30 0RF lithium carbonate 450 mg Tablet Extended Release 900 mg PO BEDTIME Qty: 60 0RF olanzapine 20 mg tablet 20 mg PO BID Qty: 60 0RF trazodone 50 mg Tablet 50 mg PO BEDTIME PRN (Reason: Insomnia) Qty: 30 0RF Metamucil Fiber Singles 3.4 gram Powder In Packet 3.4 g PO BID Qty: 0 0RF
--- NOTE | 2022-12-02 12:18 | ECG_ITS ---
Test Reason : PSYCH MEDS Blood Pressure : / mmHG Vent. Rate : 073 BPM Atrial Rate : 073 BPM P-R Int : 166 ms QRS Dur : 106 ms QT Int : 390 ms P-R-T Axes : 068 018 044 degrees QTc Int : 429 ms Normal sinus rhythm Normal ECG When compared with ECG of 07-MAY-2022 14:03, No significant change was found Referred By: Annabelle Ovalle Electronically Signed By:AKOSUA MOROCHO MD
[2022-12-02 12:46] LABS: MANUAL DIFF FLAG NO
[2022-12-02 12:50] LABS: Basophils Absolute Auto 0.1 X10*3/uL (0.0-0.2); Basophils Percent Auto 0.9 % (0-2); Eosinophils Absolute Auto 0.1 X10*3/uL (0.0-0.4); Eosinophils Percent Auto 1.2 % (0-4); Hematocrit 43.3 % (42.0-52.0); Imm Gran Abs Auto 0.02 X10*3/uL (0.00-0.03); Imm Gran Pct Auto 0.3 % (0.0-0.4); Lymphocytes Absolute Auto 1.2 X10*3/uL (1.2-4.9); Lymphocytes Percent Auto 19.2 % (20-40); Mean Corpuscular HGB Conc 34.6 g/dl (31.0-36.0); Mean Corpuscular Hemoglobin 32.5 pg (27.0-33.0); Mean Corpuscular Volume 93.7 fL (80.0-98.0); Mean Platelet Volume 10.6 fL (9.4-12.4); Monocytes Absolute Auto 0.5 X10*3/uL (0.1-1.2); Monocytes Percent Auto 7.8 % (2-11); Neutrophils Absolute Auto 4.5 x10*3/uL (2.0-8.3); Neutrophils Percent Auto 70.6 % (45-73); Platelet Count 268 X10*3/uL (160-400); Red Blood Count 4.62 X10*6/uL (4.60-5.80); Red Cell Distribution Width 12.5 % (11.0-16.0); White Blood Count 6.4 X10*3/uL (4.8-10.8)
[2022-12-02 13:03] LABS: Amphetamine Screen Urine Not Detected (Not Detect); Appearance Urine Clear; Barbiturates, Urine Not Detected (Not Detect); Benzodiazepines Screen Urine Not Detected (Not Detect); Cannabinoid Screen Urine Not Detected (Not Detect); Cocaine Screen Urine Not Detected (Not Detect); Color Urine Dark Yellow; Fentanyl, urine Not Detected (Not Detect); Glucose Urine UA Negative (Negative); Leukocyte Esterase Urine Negative (Negative); Nitrite Urine Negative (Negative); Opiate Screen Urine Not Detected (Not Detect); Phencyclidine Screen Urine Not Detected (Not Detect); Urine Blood Negative (Negative); Urine Ketones Trace mg/dL (Negative); Urine Protein Negative (Neg-Trace)
[2022-12-02 13:05] LABS: Alanine Aminotransferase 17 U/L (0-40); Albumin Level 4.3 g/dL (3.5-5.0); Alkaline Phosphatase 49 U/L (39-117); Anion Gap 10 (12-20); Aspartate Amino Transferase 18 U/L (5-37); Bilirubin Total 0.3 mg/dL (0.0-1.0); Blood Urea Nitrogen 11 mg/dL (9-16); Calcium 9.3 mg/dL (8.4-10.2); Carbon Dioxide 24 mmol/L (22-29); Chloride 110 mmol/L (96-108); Creatinine Clr Calc Pharmacy 139.4; Estimated Glomerular Filt Rate > 60; Glucose Random 126 mg/dL (60-115); Potassium 3.9 mmol/L (3.3-5.1); Sodium 140 mmol/L (135-145); Total Protein 7.1 g/dL (6.5-8.0)
[2022-12-02 13:07] LABS: Acetaminophen LAB < 17 mcg/mL (<30); Ethanol < 10 mg/dL; Salicylate < 5.0 mg/dL (15-30)
[2022-12-02 13:29] LABS: COVID-19 Test Negative (Negative); IDNOW Serial# BCCEAD1C
--- NOTE | 2022-12-02 18:44 | PC.NURSE ---
Addendum entered by Lizet Giang RN 12/03/22 05:07: Pt stated he has not taken meds since bedtime of November 23 , because the guardian harrison encouraged me not to . Pt also reported that he did not need to eat as much as usual and did not require much sleep. When asked if he was hearing voices, he responded just thoughts from afar, which are normal for a man like me with my genetics . Pt made several episcopalian and spiritual references during assessment. He was cooperative with signing legal forms. Presented with flat affect, however did exhibit some humor and was observed smiling occasionally. He denied any anxiety or depression, denied SI/HI. Original Note: Eriberto Bradford was Admitted to [facility] on a CV with 5 min checks with locked doors for psychosis. The events that precipitated were non med adherence. He was hearing voices from his medication telling him not to take them. He arrived to the floor at 1845. Per crisis report delusional. Flat affect. Cooperative with admission and skin check (safety search) completed. NSR EKG. No medical complaints at this time.
[2022-12-02 22:45] VITALS: BP 123/84; PULSE 90; RESP 18; TEMP 36.7; O2SAT 96
[2022-12-03 07:00] VITALS: BMI 26.9
[2022-12-03 08:15] VITALS: BP 142/85; PULSE 86; RESP 18; TEMP 36.6; O2SAT 98
[2022-12-03 09:26] LABS: Estimated Average Glucose 85 mg/dL; Hemoglobin A1c % 4.6 %
[2022-12-03 09:31] LABS: Alanine Aminotransferase 19 U/L (0-40); Albumin Level 4.6 g/dL (3.5-5.0); Alkaline Phosphatase 51 U/L (39-117); Anion Gap 15 (12-20); Aspartate Amino Transferase 17 U/L (5-37); Bilirubin Total 0.4 mg/dL (0.0-1.0); Blood Urea Nitrogen 10 mg/dL (9-16); Calcium 9.9 mg/dL (8.4-10.2); Carbon Dioxide 23 mmol/L (22-29); Chloride 107 mmol/L (96-108); Cholesterol 130 mg/dL; Estimated Glomerular Filt Rate > 60; Glucose Fasting 120 mg/dL (60-99); HDL Cholesterol 64 mg/dL; LDL Cholesterol Calculated 52 mg/dl; Sodium 141 mmol/L (135-145); Total Protein 7.4 g/dL (6.5-8.0); Triglycerides 72 mg/dL
[2022-12-03 09:48] LABS: Thyroid Stimulating Hormone 2.04 uIU/mL (0.32-4.0)
[2022-12-03 10:01] LABS: Folate 16.9 ng/mL (> or = 4.0); Vitamin B12 1027 pg/mL (200-900)
--- NOTE | 2022-12-03 10:28 | PHA.MEDREC ---
Pharmacy Consult ? Medication Reconciliation Pharmacy has completed the medication reconciliation.PHARMACY HAS REVIEWED MED REC DONE BY NURSING
--- NOTE | 2022-12-03 12:00 | HO.PSYADMNOT ---
HPI Date of Service: 12/03/22 Chief Complaint: Psychosis/ SI HPI Subjective Notes: Hassan Warning Narrative: pt well known to this conventional underwriter from two prior admissions. per CARE team rodney, pt stopped taking his medications around november 242022, or about 8 days prior to presentation. his behaviors have become increasingly concerning. during an appointment with one of his mental health providers, urban elena, he became dysregulated and began yelling. the provider called EMS to take pt to the hospital. pt TIEN jordan reported pt has been talking suicidal in recent days, without further description. pt informed CARE team staff that he was in the ED because he and god are finally synchronizing. he informed CARE team staff that hearing voices was normal for him due to his XXY chromosome and high testosterone levels. he is religiously preoccupied and grandiose. TIEN jordan reported he had not slept in 2 nights, was writing non-stop and needing prompts for ADLs. he denies mental illness. on interview with MD, pt initially condemns MD for medications MD has prescribed pt in the past (which are his currently prescribed medications), alleging that tegretol has taken away all his bob; he uses the imperative voice to direct MD to roughly place the medications in MD's rectum, to paraphrase. MD suggests a conversation will not be possible in the present tone; pt then sits back and calmly says, i will talk to you. MD and pt repair to an interview room where a less fractious interaction takes place. pt denies mental illness or need for treatment, clearly stating he will take medications only if it is necessary, while refusing to describe what the necessary conditions might be for him. in reply to a question regarding SI, pt reports that female beings have been putting suicidal thoughts in his head and making him think they were his own thoughts. on being asked about his statements of killing all humanity, he reports that the current god plans to use pt as his pawn in a plot to kill all humanity. pt talks of his role in this divine endeavor as an eventuality rather than as a choice or an option. he states that at the proper time he will take the form of a devil and be given vargas commensurate with his task. he endorses guardian angels who talk to him. in spite of all of these experiences, he describes his mood as safe and comfortable. informs pt medications will be prescribed whether he plans to take them or not, and there is always the possibility of the hospital's filing for commitment. hassan warning provided. Past Psychiatric History: -Has OP psych services at [facility] [place], Psychiatrist is Urban Elena -Hx of IPLOC, last on Apr 2022 through July 2022, on section 8 -Denies hx of suicide attempts or SIB -Past meds: lamictal, bupropion XL (?makes you numb?), Stelazine (took at age 14, ?burned my skull and my bones?), clozapine (says he had a seizure on higher dose) Medical Evaluation Reviewed: [facility] Family History: deferred Social History: -Pt born and raised in [place], has two brothers, parents are both . -Lives with his gf for over 16 years, not , no children. -Unemployed, has SSDI. In the past he worked at [employer] -Hx of being in [employer] as young adult Substance History: none Trauma History: -Not discussed Diagnostics Vital Signs (24Hr): Vital Signs - 24 hr 12/02/22 12:06 12/02/22 22:45 12/03/22 08:15 Temperature 98.6 F 98.0 F 97.9 F Pulse Rate 88 90 86 Respiratory Rate 18 18 18 Blood Pressure 144/79 H 123/84 142/85 H Pulse Oximetry 95 96 98 Oxygen Delivery Method Room Air Room Air Room Air BMI result Body Mass Index 28.2 Labs 12/02/22 12:41 12/03/22 08:50 Labs: Laboratory Results - last 48 hr 12/02/22 12/02/22 12/02/22 12:34 12:40 12:40 WBC RBC Hgb Hct MCV MCH MCHC RDW Plt Count MPV Immature Gran % (Auto) Neut % (Auto) Lymph % (Auto) Long % (Auto) Eos % (Auto) Baso % (Auto) Lymph # (Auto) Long # (Auto) Eos # (Auto) Baso # (Auto) Abs Immat Gran (auto) Absolute Neuts (auto) Absolute Nucleated RBC Nucleated RBC % (auto) Sodium Potassium Chloride Carbon Dioxide Anion Gap BUN Creatinine Estim Creat Clear Calc Estimated GFR Random Glucose Fasting Glucose Estimat Average Glucose Hemoglobin A1c % Calcium Total Bilirubin AST ALT Alkaline Phosphatase Total Protein Albumin Triglycerides Cholesterol LDL Cholesterol, Calc HDL Cholesterol Vitamin B12 Folate TSH Urine Color Dark Yellow Urine Appearance Clear Urine pH 6.0 Ur Specific [place] 1.020 Urine Protein Negative Urine Glucose (UA) Negative Urine Ketones Trace Urine Blood Negative Urine Nitrite Negative Ur Leukocyte Esterase Negative Salicylates Urine Opiates Screen Not Detected Urine Fentanyl Screen Not Detected Acetaminophen Ur Barbiturates Screen Not Detected Ur Phencyclidine Scrn Not Detected Ur Amphetamines Screen Not Detected U Benzodiazepines Scrn Not Detected Urine Cocaine Screen Not Detected U Marijuana (THC) Screen Not Detected Ethyl Alcohol COVID-19 (RYAN) Negative COVID-19 One Month Com See Note 12/02/22 12/02/22 12/02/22 12:41 12:41 12:41 WBC 6.4 RBC 4.62 Hgb 15.0 Hct 43.3 MCV 93.7 MCH 32.5 MCHC 34.6 RDW 12.5 Plt Count 268 MPV 10.6 Immature Gran % (Auto) 0.3 Neut % (Auto) 70.6 Lymph % (Auto) 19.2 L Long % (Auto) 7.8 Eos % (Auto) 1.2 Baso % (Auto) 0.9 Lymph # (Auto) 1.2 Long # (Auto) 0.5 Eos # (Auto) 0.1 Baso # (Auto) 0.1 Abs Immat Gran (auto) 0.02 Absolute Neuts (auto) 4.5 Absolute Nucleated RBC 0.000 Nucleated RBC % (auto) 0.0 Sodium 140 Potassium 3.9 Chloride 110 H Carbon Dioxide 24 Anion Gap 10 L BUN 11 Creatinine 0.72 Estim Creat Clear Calc 139.4 Estimated GFR > 60 Random Glucose 126 H Fasting Glucose Estimat Average Glucose Hemoglobin A1c % Calcium 9.3 Total Bilirubin 0.3 AST 18 ALT 17 Alkaline Phosphatase 49 Total Protein 7.1 Albumin 4.3 Triglycerides Cholesterol LDL Cholesterol, Calc HDL Cholesterol Vitamin B12 Folate TSH Urine Color Urine Appearance Urine pH Ur Specific [place] Urine Protein Urine Glucose (UA) Urine Ketones Urine Blood Urine Nitrite Ur Leukocyte Esterase Salicylates < 5.0 L Urine Opiates Screen Urine Fentanyl Screen Acetaminophen < 17 Ur Barbiturates Screen Ur Phencyclidine Scrn Ur Amphetamines Screen U Benzodiazepines Scrn Urine Cocaine Screen U Marijuana (THC) Screen Ethyl Alcohol < 10 COVID-19 (RYAN) COVID-19 [place] 12/03/22 12/03/2212/03/23 08:50 08:50 08:50 WBC RBC Hgb Hct MCV MCH MCHC RDW Plt Count MPV Immature Gran % (Auto) Neut % (Auto) Lymph % (Auto) Long % (Auto) Eos % (Auto) Baso % (Auto) Lymph # (Auto) Long # (Auto) Eos # (Auto) Baso # (Auto) Abs Immat Gran (auto) Absolute Neuts (auto) Absolute Nucleated RBC Nucleated RBC % (auto) Sodium 141 Potassium 4.0 Chloride 107 Carbon Dioxide 23 Anion Gap 15 BUN 10 Creatinine 0.76 Estim Creat Clear Calc 132.0 Estimated GFR > 60 Random Glucose Fasting Glucose 120 H Estimat Average Glucose 85 Hemoglobin A1c % 4.6 Calcium 9.9 D Total Bilirubin 0.4 AST 17 ALT 19 Alkaline Phosphatase 51 Total Protein 7.4 Albumin 4.6 Triglycerides 72 Cholesterol 130 LDL Cholesterol, Calc 52 HDL Cholesterol 64 Vitamin B12 1027 H Folate 16.9 TSH 2.04 Urine Color Urine Appearance Urine pH Ur Specific [place] Urine Protein Urine Glucose (UA) Urine Ketones Urine Blood Urine Nitrite Ur Leukocyte Esterase Salicylates Urine Opiates Screen Urine Fentanyl Screen Acetaminophen Ur Barbiturates Screen Ur Phencyclidine Scrn Ur Amphetamines Screen U Benzodiazepines Scrn Urine Cocaine Screen U Marijuana (THC) Screen Ethyl Alcohol COVID-19 (RYAN) COVID-19 Clin Com Meds/Allergies Allergies Allergies Allergy/AdvReac Type Severity Reaction Status Date / Time bupropion [From Wellbutrin] Allergy Mild CAUSES Verified 12/03/22 00:30 SWOLLEN HEAD tetracycline [Tetracycline] Allergy Mild UNKNOWN Verified 12/03/22 00:30 trifluoperazine Allergy Mild UNKNOWN Verified 12/03/22 00:30 [From Stelazine] clozapine [From Clozaril] AdvReac Mild SEIZURES,NE Verified 12/03/22 00:30 UTROPENIA Mental Status Exam Mental Status Exam Narrative: A&O. Pt in street clothes, adequate hygiene/ grooming. Intense eye contact, attentive. No Tics or Tremors. No abnormal involuntary movements. In behavioral control but elevated vocal volume and irritable, guarded. Non-pressured speech, spontaneous. Mood is ?safe and comfortable,? affect is flat. Denies SIBI. Endorses AH of guardian angels that are at times command in nature. reports SI of female beings putting those thoughts in my head and making me think it was my thought. endorses thoughts that the current god has plans to use him as a pawn to kill humanity and will give him the proper vargas at the appropriate time. grandiose delusional hyper-holiness thought content. Thoughts are elaborate, bizarre. Appears internally preoccupied. Insight/ Judgment poor. Assessment & Plan Assessment & Plan (1) Schizoaffective disorder, bipolar type: Status: Acute Code(s): F25.0 - Schizoaffective disorder, bipolar type Plan offer modified home regimen: tegretol 200 BID (instead of 200/400). zyprexa 20 BID lithium 600/900 psyllium 3.4 grams daily pt refusing medications. Patient educated on: medication risk/benefits Reason for continued inpatient stay Substantial Risk for: harm to self, harm to others and inability to function Statement Statement: I have reviewed the history and physical and performed a pertinent examination on my patient. No changes have occurred unless specified. If the History and Physical was not performed prior to admission, the Hospitalist's service will be consulted for completing the admission physical. Time Spent With Patient Time: Total time managing care of this patient today _55___ minutes.
[2022-12-03 18:00] VITALS: BP 153/89; PULSE 83; RESP 16; TEMP 36.7; O2SAT 98
[2022-12-03 22:00] VITALS: BP 153/97; PULSE 80; RESP 18; TEMP 36.7; O2SAT 96
[2022-12-04 09:07] VITALS: BP 155/99; PULSE 97; TEMP 36.7; O2SAT 97
--- NOTE | 2022-12-04 11:52 | HO.PSYCHPN ---
Subjective Subjective Date of Service: 12/04/22 Reason For Visit: Psychosis/ SI Interim History: greets pt in milieu, pt loudly criticizes MD. MD sees another pt. MD later approaches pt's room, hears pt talking very loudly in his room. MD enters, patient is alone. MD greets patient again, pt waves MD away energetically. says, does that mean you do not want to talk to me, to which pt replies, yes, you're right. MD excuses himself from the room. per staff. pt refusing to keep his shirt on in the milieu this morning. running in the skel[place], requiring redirection. calling RN armaan. on being asked to not run in the skel[place] for safety reasons, pt replied to staff, stop running your mouth, asshole. slept around 4 hours overnight. incontinent of urine in bed. Mental Status Exam Mental Status Exam Narrative: A&O. Pt in street clothes, adequate hygiene/ grooming. Intense eye contact, attentive. No Tics or Tremors. No abnormal involuntary movements. In behavioral control but elevated vocal volume and irritable, guarded. Non-pressured speech, spontaneous. affect is flat. no SI/HI/AVH reported. Appears internally preoccupied. Insight/ Judgment poor. Diagnostics Vital Signs (24Hr): Vital Signs - 24 hr 12/03/22 18:00 12/03/22 22:00 12/04/22 09:07 Temperature 98.1 F 98.0 F 98.1 F Pulse Rate 83 80 97 Respiratory Rate 16 18 Blood Pressure 153/89 H 153/97 H 155/99 H Pulse Oximetry 98 96 97 Oxygen Delivery Method Room Air Room Air Room Air BMI result Body Mass Index 26.9 Labs 12/02/22 12:41 12/03/22 08:50 Labs: Laboratory Results - last 48 hr 12/02/22 12/02/22 12/02/22 12:34 12:40 12:40 WBC RBC Hgb Hct MCV MCH MCHC RDW Plt Count MPV Immature Gran % (Auto) Neut % (Auto) Lymph % (Auto) [place] % (Auto) Eos % (Auto) Baso % (Auto) Lymph # (Auto) [place] # (Auto) Eos # (Auto) Baso # (Auto) Abs Immat Gran (auto) Absolute Neuts (auto) Absolute Nucleated RBC Nucleated RBC % (auto) Sodium Potassium Chloride Carbon Dioxide Anion Gap BUN Creatinine Estim Creat Clear Calc Estimated GFR Random Glucose Fasting Glucose Estimat Average Glucose Hemoglobin A1c % Calcium Total Bilirubin AST ALT Alkaline Phosphatase Total Protein Albumin Triglycerides Cholesterol LDL Cholesterol, Calc HDL Cholesterol Vitamin B12 Folate TSH Urine Color Dark Yellow Urine Appearance Clear Urine pH 6.0 Ur Specific [place] 1.020 Urine Protein Negative Urine Glucose (UA) Negative Urine Ketones Trace Urine Blood Negative Urine Nitrite Negative Ur Leukocyte Esterase Negative Salicylates Urine Opiates Screen Not Detected Urine Fentanyl Screen Not Detected Acetaminophen Ur Barbiturates Screen Not Detected Ur Phencyclidine Scrn Not Detected Ur Amphetamines Screen Not Detected U Benzodiazepines Scrn Not Detected Urine Cocaine Screen Not Detected U Marijuana (THC) Screen Not Detected Ethyl Alcohol COVID-19 (RYAN) Negative COVID-19 Clin Com See Note 12/02/22 12/02/22 12/02/22 12:41 12:41 12:41 WBC 6.4 RBC 4.62 Hgb 15.0 Hct 43.3 MCV 93.7 MCH 32.5 MCHC 34.6 RDW 12.5 Plt Count 268 MPV 10.6 Immature Gran % (Auto) 0.3 Neut % (Auto) 70.6 Lymph % (Auto) 19.2 L [place] % (Auto) 7.8 Eos % (Auto) 1.2 Baso % (Auto) 0.9 Lymph # (Auto) 1.2 [place] # (Auto) 0.5 Eos # (Auto) 0.1 Baso # (Auto) 0.1 Abs Immat Gran (auto) 0.02 Absolute Neuts (auto) 4.5 Absolute Nucleated RBC 0.000 Nucleated RBC % (auto) 0.0 Sodium 140 Potassium 3.9 Chloride 110 H Carbon Dioxide 24 Anion Gap 10 L BUN 11 Creatinine 0.72 Estim Creat Clear Calc 139.4 Estimated GFR > 60 Random Glucose 126 H Fasting Glucose Estimat Average Glucose Hemoglobin A1c % Calcium 9.3 Total Bilirubin 0.3 AST 18 ALT 17 Alkaline Phosphatase 49 Total Protein 7.1 Albumin 4.3 Triglycerides Cholesterol LDL Cholesterol, Calc HDL Cholesterol Vitamin B12 Folate TSH Urine Color Urine Appearance Urine pH Ur Specific [place] Urine Protein Urine Glucose (UA) Urine Ketones Urine Blood Urine Nitrite Ur Leukocyte Esterase Salicylates < 5.0 L Urine Opiates Screen Urine Fentanyl Screen Acetaminophen < 17 Ur Barbiturates Screen Ur Phencyclidine Scrn Ur Amphetamines Screen U Benzodiazepines Scrn Urine Cocaine Screen U Marijuana (THC) Screen Ethyl Alcohol < 10 COVID-19 (RYAN) COVID-19 [place] 12/03/22 12/03/22 12/03/22 08:50 08:50 08:50 WBC RBC Hgb Hct MCV MCH MCHC RDW Plt Count MPV Immature Gran % (Auto) Neut % (Auto) Lymph % (Auto) [place] % (Auto) Eos % (Auto) Baso % (Auto) Lymph # (Auto) [place] # (Auto) Eos # (Auto) Baso # (Auto) Abs Immat Gran (auto) Absolute Neuts (auto) Absolute Nucleated RBC Nucleated RBC % (auto) Sodium 141 Potassium 4.0 Chloride 107 Carbon Dioxide 23 Anion Gap 15 BUN 10 Creatinine 0.76 Estim Creat Clear Calc 132.0 Estimated GFR > 60 Random Glucose Fasting Glucose 120 H Estimat Average Glucose 85 Hemoglobin A1c % 4.6 Calcium 9.9 D Total Bilirubin 0.4 AST 17 ALT 19 Alkaline Phosphatase 51 Total Protein 7.4 Albumin 4.6 Triglycerides 72 Cholesterol 130 LDL Cholesterol, Calc 52 HDL Cholesterol 64 Vitamin B12 1027 H Folate 16.9 TSH 2.04 Urine Color Urine Appearance Urine pH Ur Specific [place] Urine Protein Urine Glucose (UA) Urine Ketones Urine Blood Urine Nitrite Ur Leukocyte Esterase Salicylates Urine Opiates Screen Urine Fentanyl Screen Acetaminophen Ur Barbiturates Screen Ur Phencyclidine Scrn Ur Amphetamines Screen U Benzodiazepines Scrn Urine Cocaine Screen U Marijuana (THC) Screen Ethyl Alcohol COVID-19 (RYAN) COVID-19 Clin Com Medications Medications Current Medications Acetaminophen (Acetaminophen 325 Mg Tablet) 650 mg PO Q6H PRN PRN Reason: Headache/Pain Mild Scale (1-3) Al Hydroxide/Mg Hydroxide (Magnesium Hydrox/Alum Hydrox 30 Ml Oral.Susp) 30 ml PO Q6H PRN PRN Reason: Heartburn/Nausea Carbamazepine (Carbamazepine Er 200 Mg Tab.Er.12h) 200 mg PO BEDTIME ANJUM Last Admin: 12/03/22 22:45 Dose: Not Given Carbamazepine (Carbamazepine Er 200 Mg Tab.Er.12h) 200 mg PO DAILY ANJUM Last Admin: 12/04/22 09:17 Dose: Not Given Hydroxyzine HCl (Hydroxyzine Hcl 25 Mg Tablet) 25 mg PO Q6H PRN PRN Reason: Anxiety [place] Carbonate ([place] Carbonate 300 Mg Capsule) 600 mg PO DAILY [facility] Last Admin: 12/04/22 09:17 Dose: Not Given [place] Carbonate ([place] Carbonate Er 450 Mg Tablet.Er) 900 mg PO BEDTIME [facility] Last Admin: 12/03/22 22:45 Dose: Not Given Magnesium Hydroxide (Milk Of Magnesia 30 Ml Oral.Susp) 30 ml PO DAILY PRN PRN Reason: Constipation Olanzapine (Olanzapine 10 Mg Tablet) 20 mg PO BID [facility] Last Admin: 12/04/22 09:17 Dose: Not Given Psyllium Hydrophilic Mucilloid (Psyllium Seed 3.4 Gm Powd.Pack) 3.4 gm PO DAILY [facility] Last Admin: 12/04/22 09:17 Dose: Not Given Trazodone HCl (Trazodone Hcl 50 Mg Tablet) 50 mg PO BEDTIME MRX1 PRN PRN Reason: Insomnia Trazodone HCl (Trazodone Hcl 50 Mg Tablet) 50 mg PO BEDTIME PRN PRN Reason: Insomnia Allergies Allergies Allergy/AdvReac Type Severity Reaction Status Date / Time bupropion [From Wellbutrin] Allergy Mild CAUSES Verified 12/03/22 00:30 SWOLLEN HEAD tetracycline [Tetracycline] Allergy Mild UNKNOWN Verified 12/03/22 00:30 trifluoperazine Allergy Mild UNKNOWN Verified 12/03/22 00:30 [From Stelazine] clozapine [From Clozaril] AdvReac Mild SEIZURES,NE Verified 12/03/22 00:30 UTROPENIA Assessment & Plan Assessment & Plan (1) Schizoaffective disorder, bipolar type: Status: Acute Code(s): F25.0 - Schizoaffective disorder, bipolar type Plan 12/03: offer modified home regimen: tegretol 200 BID (instead of 200/400); zyprexa 20 BID; lithium 600/900; psyllium 3.4 grams daily. pt refusing medications. 12/04: add norvasc 5 mg daily for HTN. otherwise continue current mgmt. pt refusing medications. verbally abusive toward staff, calling RN bitch and telling other staff stop running your mouth, asshole, when staff member was redirecting pt from running in the [place]el[place]. Reason for continued inpatient stay Substantial Risk for: harm to self, inability to function and rapid decompensation Time Spent With Patient Time: Total time managing care of this patient today __25__ minutes.
[2022-12-04 20:27] VITALS: BP 156/88; PULSE 83; TEMP 36.4; O2SAT 97
[2022-12-05 08:25] VITALS: BP 140/75; PULSE 102; RESP 18; TEMP 36.6; O2SAT 99
--- NOTE | 2022-12-05 08:31 | HO.PSYCHPN ---
Subjective Subjective Date of Service: 12/05/22 Reason For Visit: Psychosis/ SI Subjective Notes: Conditional Voluntary Healthcare Proxy: No Guardianship: No Medical Problems Affecting Mental Status: No Interim History: Patient was seen and discussed in rounds today. Records and plans were reviewed. He continues to be refusing medications. Continues to be anxious, disorganized, having paranoid ideations, responding to internal stimuli. He has been eating and sleeping adequately. He was initially nonresponsive but when I asked about his name in from 1 of the staff he started talking but is very disorganized and is not able to respond appropriately to questions. He was sitting in the milieu, playing with cards by himself. No changes were made today. He has been walking into other patient's rooms and we decided to change his level of observation stay every 5 minutes Medication Compliance: No Attending Groups: No Review of Systems Review of Systems Yes Unobtainable due to mental status Mental Status Exam Mental Status Exam Narrative: In today's visit he is alert but could not be assessed formally. Normal speech. Little eye contact. He appears to be quite disorganized. He appears to be responding to internal stimuli. No dangerous behaviors. Cognitively is impaired secondary to his psychosis. Judgment is impaired. Diagnostics Vital Signs (24Hr): Vital Signs - 24 hr 12/04/22 09:07 12/04/22 20:27 Temperature 98.1 F 97.6 F Pulse Rate 97 83 Blood Pressure 155/99 H 156/88 H Pulse Oximetry 97 97 Oxygen Delivery Method Room Air Room Air BMI result Body Mass Index 26.9 Labs 12/02/22 12:41 12/03/22 08:50 Labs: Laboratory Results - last 48 hr 12/03/22 12/03/22 12/03/22 08:50 08:50 08:50 Sodium 141 Potassium 4.0 Chloride 107 Carbon Dioxide 23 Anion Gap 15 BUN 10 Creatinine 0.76 Estim Creat Clear Calc 132.0 Estimated GFR > 60 Fasting Glucose 120 H Estimat Average Glucose 85 Hemoglobin A1c % 4.6 Calcium 9.9 D Total Bilirubin 0.4 AST 17 ALT 19 Alkaline Phosphatase 51 Total Protein 7.4 Albumin 4.6 Triglycerides 72 Cholesterol 130 LDL Cholesterol, Calc 52 HDL Cholesterol 64 Vitamin B12 1027 H Folate 16.9 TSH 2.04 Medications Medications Current Medications Acetaminophen (Acetaminophen 325 Mg Tablet) 650 mg PO Q6H PRN PRN Reason: Headache/Pain Mild Scale (1-3) Al Hydroxide/Mg Hydroxide (Magnesium Hydrox/Alum Hydrox 30 Ml Oral.Susp) 30 ml PO Q6H PRN PRN Reason: Heartburn/Nausea Amlodipine Besylate (Amlodipine Besylate 5 Mg Tablet) 5 mg PO DAILY [facility]; Protocol Last Admin: 12/04/22 13:12 Dose: Not Given Carbamazepine (Carbamazepine Er 200 Mg Tab.Er.12h) 200 mg PO BEDTIME [facility] Last Admin: 12/04/22 23:30 Dose: Not Given Carbamazepine (Carbamazepine Er 200 Mg Tab.Er.12h) 200 mg PO DAILY [facility] Last Admin: 12/04/22 09:17 Dose: Not Given Hydroxyzine HCl (Hydroxyzine Hcl 25 Mg Tablet) 25 mg PO Q6H PRN PRN Reason: Anxiety [place] Carbonate ([place] Carbonate 300 Mg Capsule) 600 mg PO DAILY [facility] Last Admin: 12/04/22 09:17 Dose: Not Given [place] Carbonate ([place] Carbonate Er 450 Mg Tablet.Er) 900 mg PO BEDTIME [facility] Last Admin: 12/04/22 23:30 Dose: Not Given Magnesium Hydroxide (Milk Of Magnesia 30 Ml Oral.Susp) 30 ml PO DAILY PRN PRN Reason: Constipation Olanzapine (Olanzapine 10 Mg Tablet) 20 mg PO BID [facility] Last Admin: 12/04/22 23:30 Dose: Not Given Psyllium Hydrophilic Mucilloid (Psyllium Seed 3.4 Gm Powd.Pack) 3.4 gm PO DAILY [facility] Last Admin: 12/04/22 09:17 Dose: Not Given Trazodone HCl (Trazodone Hcl 50 Mg Tablet) 50 mg PO BEDTIME MRX1 PRN PRN Reason: Insomnia Trazodone HCl (Trazodone Hcl 50 Mg Tablet) 50 mg PO BEDTIME PRN PRN Reason: Insomnia Allergies Allergies Allergy/AdvReac Type Severity Reaction Status Date / Time bupropion [From Wellbutrin] Allergy Mild CAUSES Verified 12/03/22 00:30 SWOLLEN HEAD tetracycline [Tetracycline] Allergy Mild UNKNOWN Verified 12/03/22 00:30 trifluoperazine Allergy Mild UNKNOWN Verified 12/03/22 00:30 [From Stelazine] clozapine [From Clozaril] AdvReac Mild SEIZURES,NE Verified 12/03/22 00:30 UTROPENIA Assessment & Plan Assessment & Plan (1) Schizoaffective disorder, bipolar type: Status: Acute Code(s): F25.0 - Schizoaffective disorder, bipolar type Plan 12/03: offer modified home regimen: tegretol 200 BID (instead of 200/400); zyprexa 20 BID; lithium 600/900; psyllium 3.4 grams daily. pt refusing medications. 12/04: add norvasc 5 mg daily for HTN. otherwise continue current mgmt. pt refusing medications. verbally abusive toward staff, calling RN marquesch and telling other staff stop running your mouth, asshole, when staff member was redirecting pt from running in the [place]el[place]. 12/05: Continue current regimen and plans. Change his observation to 5 minutes. Reason for continued inpatient stay Substantial Risk for: inability to function Time Spent With Patient Time: Total time managing care of this patient today ____ minutes.
[2022-12-05] MEDS: Lithium Carbonate 300 MG CAPSULE 600 MG PO (09:39)
[2022-12-05] MEDS: OLANZapine 10 MG TABLET 20 MG PO ×2 (09:39→20:31)
[2022-12-05] MEDS: amLODIPine Besylate 5 MG TABLET PO (09:40)
[2022-12-05] MEDS: carBAMazepine ER 200 MG TAB.ER.12H PO (09:40)
[2022-12-05 20:15] VITALS: BP 146/96; PULSE 102; TEMP 36.7; O2SAT 97
[2022-12-05] MEDS: Lithium Carbonate ER 450 MG TABLET.ER 900 MG PO (20:31)
[2022-12-06 07:20] LABS: Lithium 0.54 mmol/L (0.60-1.20)
[2022-12-06 08:15] VITALS: BP 130/79; PULSE 110; RESP 18; TEMP 36.6; O2SAT 97
--- NOTE | 2022-12-06 08:56 | HO.PSYCHPN ---
Subjective Subjective Date of Service: 12/05/22 Reason For Visit: Psychosis/ SI Subjective Notes: Conditional Voluntary Healthcare Proxy: No Guardianship: No Medical Problems Affecting Mental Status: No Interim History: Patient was seen and discussed in rounds today. Records and plans were reviewed. He took his medications yesterday but continues to be hypervigilant about them and taking them selectively. He continues to be psychotic and delusional but denies symptoms when asked specifically. No dangerous behaviors. He has been loud and we did place him on a 5 minute checks yesterday because of intrusiveness. No changes were made today Medication Compliance: No Attending Groups: No Review of Systems Review of Systems Yes Unobtainable due to mental status Mental Status Exam Mental Status Exam Narrative: In today's visit he is alert and not able to respond to questions as he is engaged with internal processes. He is somewhat loud at times. He is disorganized and appears to be psychotic and delusional. No dangerous behaviors. Judgment is impaired Diagnostics Vital Signs (24Hr): Vital Signs - 24 hr 12/05/22 20:15 Temperature 98.1 F Pulse Rate 102 H Blood Pressure 146/96 H Pulse Oximetry 97 Oxygen Delivery Method Room Air BMI result Body Mass Index 26.9 Labs 12/02/22 12:41 12/03/22 08:50 Labs: Laboratory Results - last 48 hr 12/06/22 06:57 [place] 0.54 L Medications Medications Current Medications Acetaminophen (Acetaminophen 325 Mg Tablet) 650 mg PO Q6H PRN PRN Reason: Headache/Pain Mild Scale (1-3) Al Hydroxide/Mg Hydroxide (Magnesium Hydrox/Alum Hydrox 30 Ml Oral.Susp) 30 ml PO Q6H PRN PRN Reason: Heartburn/Nausea Amlodipine Besylate (Amlodipine Besylate 5 Mg Tablet) 5 mg PO DAILY [facility]; Protocol Last Admin: 12/05/22 09:40 Dose: 5 mg Carbamazepine (Carbamazepine Er 200 Mg Tab.Er.12h) 200 mg PO BEDTIME [facility] Last Admin: 12/05/22 20:37 Dose: Not Given Carbamazepine (Carbamazepine Er 200 Mg Tab.Er.12h) 200 mg PO DAILY [facility] Last Admin: 12/05/22 09:40 Dose: 200 mg Hydroxyzine HCl (Hydroxyzine Hcl 25 Mg Tablet) 25 mg PO Q6H PRN PRN Reason: Anxiety [place] Carbonate ([place] Carbonate 300 Mg Capsule) 600 mg PO DAILY [facility] Last Admin: 12/05/22 09:39 Dose: 600 mg [place] Carbonate ([place] Carbonate Er 450 Mg Tablet.Er) 900 mg PO BEDTIME [facility] Last Admin: 12/05/22 20:31 Dose: 900 mg Magnesium Hydroxide (Milk Of Magnesia 30 Ml Oral.Susp) 30 ml PO DAILY PRN PRN Reason: Constipation Olanzapine (Olanzapine 10 Mg Tablet) 20 mg PO BID [facility] Last Admin: 12/05/22 20:31 Dose: 20 mg Psyllium Hydrophilic Mucilloid (Psyllium Seed 3.4 Gm Powd.Pack) 3.4 gm PO DAILY [facility] Last Admin: 12/05/22 09:42 Dose: 3.4 gm Trazodone HCl (Trazodone Hcl 50 Mg Tablet) 50 mg PO BEDTIME MRX1 PRN PRN Reason: Insomnia Trazodone HCl (Trazodone Hcl 50 Mg Tablet) 50 mg PO BEDTIME PRN PRN Reason: Insomnia Allergies Allergies Allergy/AdvReac Type Severity Reaction Status Date / Time bupropion [From Wellbutrin] Allergy Mild CAUSES Verified 12/03/22 00:30 SWOLLEN HEAD tetracycline [Tetracycline] Allergy Mild UNKNOWN Verified 12/03/22 00:30 trifluoperazine Allergy Mild UNKNOWN Verified 12/03/22 00:30 [From Stelazine] clozapine [From Clozaril] AdvReac Mild SEIZURES,NE Verified 12/03/22 00:30 UTROPENIA Assessment & Plan Assessment & Plan (1) Schizoaffective disorder, bipolar type: Status: Acute Code(s): F25.0 - Schizoaffective disorder, bipolar type Plan 12/03: offer modified home regimen: tegretol 200 BID (instead of 200/400); zyprexa 20 BID; lithium 600/900; psyllium 3.4 grams daily. pt refusing medications. 12/04: add norvasc 5 mg daily for HTN. otherwise continue current mgmt. pt refusing medications. verbally abusive toward staff, calling RN bitch and telling other staff stop running your mouth, asshole, when staff member was redirecting pt from running in the skelton. 12/05: Continue current regimen and plans. Change his observation to 5 minutes. 12/06: Continue current regimen and plans Reason for continued inpatient stay Substantial Risk for: inability to function and med/psych decompensation Time Spent With Patient Time: Total time managing care of this patient today ____ minutes.
[2022-12-06] MEDS: Lithium Carbonate 300 MG CAPSULE 600 MG PO (09:00)
[2022-12-06] MEDS: OLANZapine 10 MG TABLET 20 MG PO (09:00)
--- NOTE | 2022-12-06 09:59 | PC.NURSE ---
During Am med pass , Pt took all medications except for Norvasc, , Tegretol and Metamucil. Pt looked at his meds in the cup , asked what is the small pill? this loan underwriter replied, it's your Norvasc, Eriberto replied you Dumb Bitch it is not,He took the pill and threw it down the skelton. took a his other pills left in the cup with water and then threw the cup of water down the skelton. Pt has been swearing loudly at staff since start of shift.
[2022-12-06 20:30] VITALS: BP 136/71; PULSE 67; RESP 18; O2SAT 97
--- NOTE | 2022-12-07 15:01 | HO.PSYCHPN ---
Subjective Subjective Date of Service: 12/07/22 Reason For Visit: Psychosis/ SI Interim History: controlled aggression, swearing at MD. MD has to end interview due to inappropriate language. pt later seeks out MD and informs MD he needs to read MD a statement he has written. extensive, seemingly having to do with his demands to take various vitamins and to have particular foods prepared for him in a particular way. MD offers pt MVI here, pt declines. SW theobold present for some of the interaction. per staff, swung/swatted at staff yesterday, noted to have said, i'm talking leave me alone. labile, agitated. threw meds and water cup at RN today (refusing meds aside from lithium yesterday morning). f*ck you, get out of my room! to staff. addressing RNs as bitch. reported seeing spirits. swatted at checks board in staff's hands, trying to kock it away. i just ejaculated a large amount of fluid but very little sperm, will you come look at it? ate some playing cards. Mental Status Exam Mental Status Exam Narrative: A&O. Pt in street clothes, adequate hygiene/ grooming. Intense eye contact, attentive. No Tics or Tremors. No abnormal involuntary movements. In behavioral control but elevated vocal volume and irritable, guarded. Non-pressured speech, spontaneous. affect is flat. no SI/HI/AVH reported. Appears internally preoccupied. Insight/ Judgment poor. Diagnostics Vital Signs (24Hr): Vital Signs - 24 hr 12/06/22 20:30 Pulse Rate 67 Respiratory Rate 18 Blood Pressure 136/71 Pulse Oximetry 97 Oxygen Delivery Method Room Air BMI result Body Mass Index 26.9 Labs 12/02/22 12:41 12/03/22 08:50 Labs: Laboratory Results - last 48 hr 12/06/22 06:57 [place] 0.54 L Medications Medications Current Medications Acetaminophen (Acetaminophen 325 Mg Tablet) 650 mg PO Q6H PRN PRN Reason: Headache/Pain Mild Scale (1-3) Al Hydroxide/Mg Hydroxide (Magnesium Hydrox/Alum Hydrox 30 Ml Oral.Susp) 30 ml PO Q6H PRN PRN Reason: Heartburn/Nausea Amlodipine Besylate (Amlodipine Besylate 5 Mg Tablet) 5 mg PO DAILY [facility]; Protocol Last Admin: 12/07/22 08:57 Dose: Not Given Carbamazepine (Carbamazepine Er 200 Mg Tab.Er.12h) 200 mg PO BEDTIME [facility] Last Admin: 12/06/22 23:50 Dose: Not Given Carbamazepine (Carbamazepine Er 200 Mg Tab.Er.12h) 200 mg PO DAILY [facility] Last Admin: 12/07/22 08:58 Dose: Not Given Hydroxyzine HCl (Hydroxyzine Hcl 25 Mg Tablet) 25 mg PO Q6H PRN PRN Reason: Anxiety [place] Carbonate ([place] Carbonate 300 Mg Capsule) 600 mg PO DAILY [facility] Last Admin: 12/07/22 08:58 Dose: Not Given [place] Carbonate ([place] Carbonate Er 450 Mg Tablet.Er) 900 mg PO BEDTIME [facility] Last Admin: 12/06/22 23:50 Dose: Not Given Magnesium Hydroxide (Milk Of Magnesia 30 Ml Oral.Susp) 30 ml PO DAILY PRN PRN Reason: Constipation Olanzapine (Olanzapine 10 Mg Tablet) 20 mg PO BID [facility] Last Admin: 12/07/22 08:58 Dose: Not Given Psyllium Hydrophilic Mucilloid (Psyllium Seed 3.4 Gm Powd.Pack) 3.4 gm PO DAILY [facility] Last Admin: 12/07/22 08:58 Dose: Not Given Trazodone HCl (Trazodone Hcl 50 Mg Tablet) 50 mg PO BEDTIME MRX1 PRN PRN Reason: Insomnia Trazodone HCl (Trazodone Hcl 50 Mg Tablet) 50 mg PO BEDTIME PRN PRN Reason: Insomnia Allergies Allergies Allergy/AdvReac Type Severity Reaction Status Date / Time bupropion [From Wellbutrin] Allergy Mild CAUSES Verified 12/03/22 00:30 SWOLLEN [place] tetracycline [Tetracycline] Allergy Mild UNKNOWN Verified 12/03/22 00:30 trifluoperazine Allergy Mild UNKNOWN Verified 12/03/22 00:30 [From Stelazine] clozapine [From Clozaril] AdvReac Mild SEIZURES,NE Verified 12/03/22 00:30 UTROPENIA Assessment & Plan Assessment & Plan (1) Schizoaffective disorder, bipolar type: Status: Acute Code(s): F25.0 - Schizoaffective disorder, bipolar type Plan 12/03: offer modified home regimen: tegretol 200 BID (instead of 200/400); zyprexa 20 BID; lithium 600/900; psyllium 3.4 grams daily. pt refusing medications. 12/04: add norvasc 5 mg daily for HTN. otherwise continue current mgmt. pt refusing medications. verbally abusive toward staff, calling RN marquesch and telling other staff stop running your mouth, asshole, when staff member was redirecting pt from running in the skelton. 12/05: Continue current regimen and plans. Change his observation to 5 minutes. 12/06: Continue current regimen and plans 12/07: refusing meds. continue current mgmt, attempt to engage and encourage medication. Patient educated on: medication risk/benefits Reason for continued inpatient stay Substantial Risk for: harm to self and inability to function Time Spent With Patient Time: Total time managing care of this patient today __25__ minutes.
--- NOTE | 2022-12-07 18:08 | PC.NURSE ---
Patient signed a 3 day on 12/07/22, up on 12/10/22
[2022-12-08 08:13] VITALS: BP 176/83; PULSE 97; RESP 16; TEMP 36.6; O2SAT 96
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
[2022-12-08 21:10] VITALS: BP 124/82; PULSE 81; TEMP 36.6; O2SAT 94
[2022-12-09 08:09] VITALS: RESP 18
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
[2022-12-09 18:00] VITALS: BP 132/75; PULSE 75; RESP 18; TEMP 36.6; O2SAT 98
[2022-12-10 07:00] VITALS: BMI 25.8
[2022-12-10 08:00] VITALS: BP 145/77; PULSE 86; RESP 18; TEMP 36.6; O2SAT 99
--- NOTE | 2022-12-10 11:10 | PC.NURSE ---
Pt is ready and aware of discharge. He states hi girlfriend , Amy, will pick me up @ 11 Pt denies SI/HI/AH/VH at this time. Reviewed medications and appointments. Eriberto verbalized understanding , but said I'm not taking my medications. Patients belongings were returned to him to include his wallet and various cards within it cards . Pt was walked down to lobby with his Girl jeff.
== END 2022-12-10 10:55 | disposition home or self-care (01) | DRG 885 ==
LOC: HO.ED 16:21 → HO.PADLT16 18:03
PROVIDERS: Physician Assistant Medical; Social Worker; Admitting Provider Psychiatry & Neurology Psychiatry; Emergency Provider Emergency Medicine; PCP Nurse Practitioner Family; Visit Provider Psychiatry & Neurology Psychiatry
DX: F25.0 Schizoaffective disorder, bipolar type (principal); Z20.822 Contact with and (suspected) exposure to COVID-19; Z91.148 Patient's other noncompliance with medication regimen for other reason; Z79.899 Other long term (current) drug therapy
CPT/HCPCS: 36415; 80053; 80061; 80143; 80178; 80179; 80307; 81003; 82607; 82746; 83036; 84443; 85025; 87635; 93005; 99285; S9485

== ENCOUNTER 2022-12-14 01:24 | Inpatient (IN) | payer OTHER, SELFPAY ==
[2022-12-14] VITALS (14 sets, daily range): BP systolic 128–167; BP diastolic 80–88; PULSE 69–85; RESP 16–24; TEMP 36.1–37.1; O2SAT 98; BMI 27.3
--- NOTE | ~2022-12-14 | CT_ITS ---
EXAMINATION: CT HEAD WITHOUT CONTRAST CT FACIAL BONES WITHOUT CONTRAST CT CERVICAL SPINE WITHOUT CONTRAST CLINICAL INFORMATION: 57-year-old male status post fall COMPARISON: None. TECHNIQUE: Imaging was performed from the skull base to vertex without intravenous administration of contrast. In addition, helical noncontrast CT imaging was acquired through the cervical spine and facial bones and source images were reviewed along with axial reconstructions and sagittal and coronal MPRs. This CT examination was performed using dose optimization techniques as appropriate, variously including the following: *Automated exposure control. *Adjustment of mA and/or kV according to patient size (this includes techniques or standardized protocols for targeted exams where dose is matched to indication/reason for exam; i.e. extremities or head). *Use of iterative reconstruction technique. DLP: 1688 mGy-cm FINDINGS: Head: There is no evidence of acute intracranial hemorrhage or edematous territorial infarction. Munoz-white matter differentiation is preserved. There is no abnormal attenuation within the brain parenchyma. The ventricles are normal in morphology and size. No evidence for obstructive hydrocephalus. There is coarse, lobulated calcification in the fourth ventricle measured 1.2 x 0.9 x 1.1 cm, need to be further evaluated by MRI without and with contrast. No other abnormal mass effect or midline shift. No extra-axial fluid collections. There is right frontal cephalohematoma, not associated with fracture. Maxillofacial Bones: No evidence of maxillofacial bone fractures. The zygomatic arches remain intact. No nasal bone fracture. The nasal septum remains midline. No evidence of mandibular or maxillary fracture. The mandibular condyles remain well-seated in their respective temporal articular grooves. Normal appearance of the intraconal and extraconal fat. No evidence of traumatic injury to the extraocular musculature or globes. The mastoid air cells are well aerated and visualized paranasal sinuses revealed mucous retention cyst in the right maxillary sinus and smaller size in the left maxillary sinus. The rest of sinuses are well-aerated. Cervical Spine: The atlantooccipital and atlantoaxial articulations remain well aligned. Straightening of the normal cervical lordosis. Otherwise, there is anatomic alignment of the vertebral bodies and posterior elements. No evidence of acute fracture. Or subluxation. The vertebral body heights. There are multilevel degenerative changes with narrowing of C2-C3 C3-C4 C5-C6 16-7 intervertebral disc spaces and facets arthropathy. There is uncovertebral osteophytosis at the level of C6-C7 on the right.. There is no prevertebral soft tissue swelling. The thyroid gland and remaining cervical soft tissues are within normal limits. The lung apices demonstrate no abnormalities. CT/CT cervical spine wo IV con IMPRESSION: 1. No acute intracranial, maxillofacial bone, or cervical abnormalities. 2. Right frontal cephalohematoma, not associated with fracture. 3. Coarse, lobulated calcification in the fourth ventricle, need to be further evaluated by MRI without and with contrast. 4. Degenerative changes in the cervical spine.
--- NOTE | ~2022-12-14 | MR_ITS ---
EXAMINATION: MR BRAIN WITH AND WITHOUT CONTRAST CLINICAL INFORMATION: evaluate intraventricular lesion COMPARISON: CT head 12/14/2022 TECHNIQUE: MRI of the brain was obtained using routine sequences before and following administration of intravenous contrast. A total of 9 mL of Gadavist was administered intravenously. FINDINGS: Motion degraded T2 weighted sequence, particularly limiting assessment of previously queried fourth intraventricular lesion. There is a 1.0 cm densely calcified lobulated lesion centered within the right anterior aspect of the fourth ventricle demonstrating peripheral enhancement with corresponding thin peripheral FLAIR hyperintense rim. The fourth ventricle remains patent. No acute infarct. No acute intracranial hemorrhage or extra-axial fluid collection. Mild generalized parenchymal volume loss. A couple of scattered nonspecific T2 FLAIR hyperintense foci are seen in the subcortical white matter. 5 mm centrally suppressing cystic lesion in the left centrum semiovale with a thin peripheral FLAIR hyperintense rim may reflect a neuroglial cyst or prominent perivascular space, likely chronic infarct.No abnormal intraparenchymal or leptomeningeal enhancement. No significant mass effect or herniation pattern. The intracranial dural venous sinus and arterial flow voids are preserved. Normal appearance of the midline structures. The orbits are grossly unremarkable. Retention cyst/polyp along the medial wall of the right maxillary sinus with intrinsic nodular T1 hyperintensity likely reflecting associated/proteinaceous contents or chronic fungal elements. No suspicious osseous lesions. Right frontal scalp hematoma. MR/MR head/brain wo/w con IMPRESSION: There is a 1.0 cm densely calcified lobulated lesion centered within the right anterior aspect of the fourth ventricle demonstrating peripheral enhancement. Differential considerations include a calcified choroid plexus cyst, choroid plexus papilloma, or intraventricular meningioma. The fourth ventricle remains patent without evidence of fourth ventricular outflow obstruction. No hydrocephalus. Generalized parenchymal volume loss and nonspecific white matter disease, likely mild chronic microangiopathy. Right frontal scalp hematoma.
[2022-12-14] MEDS: LORazepam 2 MG/ML VIAL IM ×2 (01:50→20:10)
[2022-12-14] MEDS: diphenhydrAMINE HCL 50 MG/ML VIAL IM ×2 (01:50→20:10)
[2022-12-14] MEDS: Haloperidol Lactate 5 MG/ML VIAL IM ×2 (01:50→20:10)
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
[2022-12-14] MEDS: Diphth,Pertus(ACell),Tet Adult 0.5 ML SYRINGE IM (01:55)
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
[2022-12-14 02:39] LABS: MANUAL DIFF FLAG NO
[2022-12-14 02:41] LABS: Basophils Percent Auto 0.5 % (0-2); Eosinophils Absolute Auto 0.1 X10*3/uL (0.0-0.4); Hematocrit 39.2 % (42.0-52.0); Hemoglobin 13.8 g/dl (14.0-18.0); Imm Gran Abs Auto 0.01 X10*3/uL (0.00-0.03); Imm Gran Pct Auto 0.2 % (0.0-0.4); Lymphocytes Absolute Auto 1.4 X10*3/uL (1.2-4.9); Lymphocytes Percent Auto 25.2 % (20-40); Mean Corpuscular HGB Conc 35.2 g/dl (31.0-36.0); Mean Corpuscular Hemoglobin 32.4 pg (27.0-33.0); Mean Platelet Volume 10.5 fL (9.4-12.4); Monocytes Absolute Auto 0.5 X10*3/uL (0.1-1.2); Monocytes Percent Auto 8.3 % (2-11); Neutrophils Absolute Auto 3.6 x10*3/uL (2.0-8.3); Neutrophils Percent Auto 63.8 % (45-73); Platelet Count 183 X10*3/uL (160-400); Red Blood Count 4.26 X10*6/uL (4.60-5.80); Red Cell Distribution Width 12.1 % (11.0-16.0); White Blood Count 5.6 X10*3/uL (4.8-10.8)
[2022-12-14 02:57] LABS: Ethanol < 10 mg/dL
[2022-12-14 03:00] LABS: Alanine Aminotransferase 34 U/L (0-40); Albumin Level 3.9 g/dL (3.5-5.0); Alkaline Phosphatase 41 U/L (39-117); Anion Gap 11 (12-20); Aspartate Amino Transferase 35 U/L (5-37); Bilirubin Direct 0.2 mg/dL (0.0-0.5); Bilirubin Total 0.6 mg/dL (0.0-1.0); Blood Urea Nitrogen 10 mg/dL (9-16); Calcium 9.6 mg/dL (8.4-10.2); Carbon Dioxide 24 mmol/L (22-29); Chloride 112 mmol/L (96-108); Creatinine Clr Calc Pharmacy 112.5; Estimated Glomerular Filt Rate > 60; Ethanol < 10 mg/dL; Glucose Random 100 mg/dL (60-115); Potassium 2.9 mmol/L (3.3-5.1); Sodium 144 mmol/L (135-145); Total Protein 6.1 g/dL (6.5-8.0)
[2022-12-14 03:01] LABS: Lithium < 0.10 mmol/L (0.60-1.20)
[2022-12-14 03:12] LABS: Carbamazepine Tegretol < 2.0 mcg/mL (5.0-12.0)
--- NOTE | 2022-12-14 06:48 | PC.NURSE ---
Patient slept through the night, no distress observed/reported, patient is S/P restraint, pending urine sample, pending CT head, pending regional climate change analyst, VSS, care consult ordered,pending evaluation, will continue to monitor.
--- NOTE | 2022-12-14 07:30 | PC.NURSE ---
pt initially refused to change into hospital attire and refused to go to ct scan, after a long discussion w security, pt changed his clothes w some assistance, pt w security to ct now, refused all meds, I'm never taking any meds ever again
[2022-12-14 07:40] LABS: Magnesium 1.8 mg/dL (1.6-2.6)
--- NOTE | 2022-12-14 12:20 | PC.NURSE ---
Addendum entered by Gabbi Wise 12/14/22 12:59: continuing ordered safety checks Original Note: escorted by rn/security to MRI in wheelchair s/p IV placement. pt consented to test verbally to rn. calm, cooperative, tangential speech/writing, outwardly denying sx of si/hi. breathing well. tolerated iv plcmt well. medicated iv ativan for pre: MRI anxiety as ordered. no bleeding to wound- no complaints of pain.
[2022-12-14] MEDS: LORazepam 2 MG/ML VIAL 1 MG IVPUSH (12:54)
--- NOTE | 2022-12-14 12:55 | PC.NURSE ---
MD Orellana messaged to notify pt did not take AM meds from previous shift and declined on this shift as well after pt education given by RN re: meds per MAR orders. Continuing to reinforce importance of meds and will ask again later
[2022-12-14 15:55] LABS: Appearance Urine Clear; Color Urine Yellow; Glucose Urine UA Negative (Negative); Leukocyte Esterase Urine Negative (Negative); Nitrite Urine Negative (Negative); Specific Gravity - Urine <= 1.005 (1.005-1.025); Urine Blood Negative (Negative); Urine Ketones Negative (Negative); Urine Protein Negative (Neg-Trace)
[2022-12-14 16:03] LABS: Amphetamine Screen Urine Not Detected (Not Detect); Barbiturates, Urine Not Detected (Not Detect); Benzodiazepines Screen Urine Not Detected (Not Detect); Cannabinoid Screen Urine Not Detected (Not Detect); Cocaine Screen Urine Not Detected (Not Detect); Fentanyl, urine Not Detected (Not Detect); Opiate Screen Urine Not Detected (Not Detect); Phencyclidine Screen Urine Not Detected (Not Detect)
[2022-12-14 16:10] LABS: COVID-19 Test Negative (Negative); IDNOW Serial# 08D9AD1C
--- NOTE | 2022-12-14 21:33 | MHC.CARE ---
Auth # [id number] per Graciela at [facility]. Review date 12/17. Please review with Chantell Lucero at extension [phone].
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
[2022-12-15 09:04] VITALS: BP 145/88; PULSE 95; RESP 18; TEMP 36.7; O2SAT 97
[2022-12-15 09:47] LABS: Alanine Aminotransferase 36 U/L (0-40); Albumin Level 3.9 g/dL (3.5-5.0); Alkaline Phosphatase 51 U/L (39-117); Anion Gap 13 (12-20); Aspartate Amino Transferase 45 U/L (5-37); Bilirubin Total 0.7 mg/dL (0.0-1.0); Blood Urea Nitrogen 8 mg/dL (9-16); Calcium 9.4 mg/dL (8.4-10.2); Carbon Dioxide 25 mmol/L (22-29); Chloride 107 mmol/L (96-108); Cholesterol 114 mg/dL; Creatinine Clr Calc Pharmacy 101.3; Estimated Glomerular Filt Rate > 60; Glucose Fasting 90 mg/dL (60-99); HDL Cholesterol 46 mg/dL; LDL Cholesterol Calculated 58 mg/dl; Potassium 3.3 mmol/L (3.3-5.1); Sodium 142 mmol/L (135-145); Total Protein 6.5 g/dL (6.5-8.0); Triglycerides 54 mg/dL
[2022-12-15 20:50] VITALS: BP 137/80; PULSE 100; TEMP 36.4; O2SAT 100
[2022-12-16 08:00] VITALS: BP 141/81; PULSE 90; RESP 18; TEMP 36.6; O2SAT 98
--- NOTE | 2022-12-16 09:58 | PC.NURSE ---
0900 Pt refused all medications this morning. However he did allow his vital signs to be taken.
--- NOTE | 2022-12-16 11:14 | PC.NURSE ---
observed Eriberto walking in [place] without A shirt on. Staff was able to redirect him to his room, after multiple attempts.
--- NOTE | 2022-12-16 15:28 | HO.PSYCHPN ---
Subjective Subjective Date of Service: 12/16/22 Reason For Visit: Psychosis Subjective Notes: Sexton Warning Interim History: spoke briefly with pt and provided sexton warning. pt became agitated and critical, yelling, get outta here! at MD. per staff, attended skills group. refusing meds. defecated in paper bag and left in hallway. slept about 2 hours overnight. removed his shirt and refused to put another shirt on, pacing the skelton. eventually was convinced to retire to his room. Mental Status Exam Mental Status Exam Narrative: A&O. Pt in street clothes, adequate hygiene/ grooming. Intense eye contact, attentive. No Tics or Tremors. No abnormal involuntary movements. In behavioral control but elevated vocal volume and irritable, guarded. Non-pressured speech, spontaneous. affect is flat. no SI/SIBI/HI/AVH expressed. Insight/ Judgment poor. Diagnostics Vital Signs (24Hr): Vital Signs - 24 hr 12/15/22 20:50 12/16/22 08:00 Temperature 97.6 F 97.9 F Pulse Rate 100 90 Respiratory Rate 18 Blood Pressure 137/80 141/81 H Pulse Oximetry 100 98 Oxygen Delivery Method Room Air Room Air BMI result Body Mass Index 27.3 Labs 12/14/22 02:33 12/15/22 09:08 Labs: Laboratory Results - last 48 hr 12/14/22 12/14/22 12/14/22 15:47 15:47 15:47 Sodium Potassium Chloride Carbon Dioxide Anion Gap BUN Creatinine Estim Creat Clear Calc Estimated GFR Fasting Glucose Calcium Total Bilirubin AST ALT Alkaline Phosphatase Total Protein Albumin Triglycerides Cholesterol LDL Cholesterol, Calc HDL Cholesterol Urine Color Yellow Urine Appearance Clear Urine pH 6.0 Ur Specific [place] <= 1.005 Urine Protein Negative Urine Glucose (UA) Negative Urine Ketones Negative Urine Blood Negative Urine Nitrite Negative Ur Leukocyte Esterase Negative Urine Opiates Screen Not Detected Urine Fentanyl Screen Not Detected Ur Barbiturates Screen Not Detected Ur Phencyclidine Scrn Not Detected Ur Amphetamines Screen Not Detected U Benzodiazepines Scrn Not Detected Urine Cocaine Screen Not Detected U Marijuana (THC) Screen Not Detected COVID-19 (RYAN) Negative COVID-19 Clin Com See Note 12/15/22 09:08 Sodium 142 Potassium 3.3 Chloride 107 Carbon Dioxide 25 Anion Gap 13 BUN 8 L Creatinine 0.81 Estim Creat Clear Calc 101.3 Estimated GFR > 60 Fasting Glucose 90 Calcium 9.4 Total Bilirubin 0.7 AST 45 H ALT 36 Alkaline Phosphatase 51 Total Protein 6.5 Albumin 3.9 Triglycerides 54 Cholesterol 114 LDL Cholesterol, Calc 58 HDL Cholesterol 46 Urine Color Urine Appearance Urine pH Ur Specific [place] Urine Protein Urine Glucose (UA) Urine Ketones Urine Blood Urine Nitrite Ur Leukocyte Esterase Urine Opiates Screen Urine Fentanyl Screen Ur Barbiturates Screen Ur Phencyclidine Scrn Ur Amphetamines Screen U Benzodiazepines Scrn Urine Cocaine Screen U Marijuana (THC) Screen COVID-19 (RYAN) COVID-19 Clin Com Imaging Radiology Impressions: ITS Impressions Cervical Spine CT 12/14/22 08:06 IMPRESSION: 1. No acute intracranial, maxillofacial bone, or cervical abnormalities. 2. Right frontal cephalohematoma, not associated with fracture. 3. Coarse, lobulated calcification in the fourth ventricle, need to be further evaluated by MRI without and with contrast. 4. Degenerative changes in the cervical spine. Face CT 12/14/22 08:06 IMPRESSION: 1. No acute intracranial, maxillofacial bone, or cervical abnormalities. 2. Right frontal cephalohematoma, not associated with fracture. 3. Coarse, lobulated calcification in the fourth ventricle, need to be further evaluated by MRI without and with contrast. 4. Degenerative changes in the cervical spine. Head CT 12/14/22 08:06 IMPRESSION: 1. No acute intracranial, maxillofacial bone, or cervical abnormalities. 2. Right frontal cephalohematoma, not associated with fracture. 3. Coarse, lobulated calcification in the fourth ventricle, need to be further evaluated by MRI without and with contrast. 4. Degenerative changes in the cervical spine. Brain MRI 12/14/22 13:15 IMPRESSION: There is a 1.0 cm densely calcified lobulated lesion centered within the right anterior aspect of the fourth ventricle demonstrating peripheral enhancement. Differential considerations include a calcified choroid plexus cyst, choroid plexus papilloma, or intraventricular meningioma. The fourth ventricle remains patent without evidence of fourth ventricular outflow obstruction. No hydrocephalus. Generalized parenchymal volume loss and nonspecific white matter disease, likely mild chronic microangiopathy. Right frontal scalp hematoma. Medications Medications Current Medications Acetaminophen (Acetaminophen 325 Mg Tablet) 650 mg PO Q6H PRN PRN Reason: Headache/Pain Mild Scale (1-3) Al Hydroxide/Mg Hydroxide (Magnesium Hydrox/Alum Hydrox 30 Ml Oral.Susp) 30 ml PO Q6H PRN PRN Reason: Heartburn/Nausea Carbamazepine (Carbamazepine Er 200 Mg Tab.Er.12h) 200 mg PO DAILY [facility] Last Admin: 12/16/22 09:03 Dose: Not Given Carbamazepine (Carbamazepine Er 200 Mg Tab.Er.12h) 400 mg PO BEDTIME [facility] Last Admin: 12/15/22 20:37 Dose: Not Given Hydroxyzine HCl (Hydroxyzine Hcl 25 Mg Tablet) 25 mg PO Q6H PRN PRN Reason: Anxiety [place] Carbonate ([place] Carbonate Er 450 Mg Tablet.Er) 900 mg PO BEDTIME [facility] Last Admin: 12/15/22 20:37 Dose: Not Given [place] Carbonate ([place] Carbonate 300 Mg Capsule) 600 mg PO DAILY [facility] Last Admin: 12/16/22 09:03 Dose: Not Given Magnesium Hydroxide (Milk Of Magnesia 30 Ml Oral.Susp) 30 ml PO DAILY PRN PRN Reason: Constipation Olanzapine (Olanzapine 10 Mg Tablet) 20 mg PO BID [facility] Last Admin: 12/16/22 09:04 Dose: Not Given Psyllium Hydrophilic Mucilloid (Psyllium Seed 3.4 Gm Powd.Pack) 3.4 gm PO DAILY [facility] Last Admin: 12/16/22 09:04 Dose: Not Given Trazodone HCl (Trazodone Hcl 50 Mg Tablet) 50 mg PO BEDTIME PRN PRN Reason: Insomnia Trazodone HCl (Trazodone Hcl 50 Mg Tablet) 50 mg PO BEDTIME MRX1 PRN PRN Reason: Insomnia Allergies Allergies Allergy/AdvReac Type Severity Reaction Status Date / Time bupropion [From Wellbutrin] Allergy Mild CAUSES Verified 12/03/22 00:30 SWOLLEN HEAD tetracycline [Tetracycline] Allergy Mild UNKNOWN Verified 12/03/22 00:30 trifluoperazine Allergy Mild UNKNOWN Verified 12/03/22 00:30 [From Stelazine] clozapine [From Clozaril] AdvReac Mild SEIZURES,NE Verified 12/03/22 00:30 UTROPENIA Assessment & Plan Assessment & Plan (1) Schizoaffective disorder, bipolar type: Status: Acute Code(s): F25.0 - Schizoaffective disorder, bipolar type Plan 12/15: offer medications. 12/16: completed commitment paperwork. defecated in paper bag and left it in the hallway, removed shirt and not responsive to direction to cover up. postured at staff attempting to enforce limits. Reason for continued inpatient stay Substantial Risk for: harm to self, inability to function and rapid decompensation Time Spent With Patient Time: Total time managing care of this patient today __35__ minutes.
[2022-12-16 22:01] VITALS: RESP 14
[2022-12-17 08:34] VITALS: RESP 18
--- NOTE | 2022-12-17 08:34 | PC.NURSE ---
Patient refused AM vital signs and AM medications stating no more medications ever and if you make me you will be destroying the universe . Provider Jim notified.
[2022-12-17 11:31] VITALS: BMI 27.6
--- NOTE | 2022-12-17 16:05 | HO.PSYCHPN ---
Subjective Subjective Date of Service: 12/17/22 Reason For Visit: Psychosis Interim History: irritable, verbally aggressive and abusive with MD. doing well for the condition i'm in. per staff, refusing VS and meds. Mental Status Exam Mental Status Exam Narrative: A&O. Pt in street clothes, adequate hygiene/ grooming. Intense eye contact, attentive. No Tics or Tremors. No abnormal involuntary movements. In behavioral control but elevated vocal volume and irritable, guarded. Non-pressured speech, spontaneous. affect is flat. no SI/SIBI/HI/AVH expressed. Insight/ Judgment poor. Diagnostics Vital Signs (24Hr): Vital Signs - 24 hr 12/16/22 22:01 12/17/22 08:34 Respiratory Rate 14 18 BMI result Body Mass Index 27.6 Labs 12/14/22 02:33 12/15/22 09:08 Imaging Radiology Impressions: ITS Impressions Cervical Spine CT 12/14/22 08:06 IMPRESSION: 1. No acute intracranial, maxillofacial bone, or cervical abnormalities. 2. Right frontal cephalohematoma, not associated with fracture. 3. Coarse, lobulated calcification in the fourth ventricle, need to be further evaluated by MRI without and with contrast. 4. Degenerative changes in the cervical spine. Face CT 12/14/22 08:06 IMPRESSION: 1. No acute intracranial, maxillofacial bone, or cervical abnormalities. 2. Right frontal cephalohematoma, not associated with fracture. 3. Coarse, lobulated calcification in the fourth ventricle, need to be further evaluated by MRI without and with contrast. 4. Degenerative changes in the cervical spine. Head CT 12/14/22 08:06 IMPRESSION: 1. No acute intracranial, maxillofacial bone, or cervical abnormalities. 2. Right frontal cephalohematoma, not associated with fracture. 3. Coarse, lobulated calcification in the fourth ventricle, need to be further evaluated by MRI without and with contrast. 4. Degenerative changes in the cervical spine. Brain MRI 12/14/22 13:15 IMPRESSION: There is a 1.0 cm densely calcified lobulated lesion centered within the right anterior aspect of the fourth ventricle demonstrating peripheral enhancement. Differential considerations include a calcified choroid plexus cyst, choroid plexus papilloma, or intraventricular meningioma. The fourth ventricle remains patent without evidence of fourth ventricular outflow obstruction. No hydrocephalus. Generalized parenchymal volume loss and nonspecific white matter disease, likely mild chronic microangiopathy. Right frontal scalp hematoma. Medications Medications Current Medications Acetaminophen (Acetaminophen 325 Mg Tablet) 650 mg PO Q6H PRN PRN Reason: Headache/Pain Mild Scale (1-3) Al Hydroxide/Mg Hydroxide (Magnesium Hydrox/Alum Hydrox 30 Ml Oral.Susp) 30 ml PO Q6H PRN PRN Reason: Heartburn/Nausea Carbamazepine (Carbamazepine Er 200 Mg Tab.Er.12h) 200 mg PO DAILY [facility] Last Admin: 12/17/22 09:05 Dose: Not Given Carbamazepine (Carbamazepine Er 200 Mg Tab.Er.12h) 400 mg PO BEDTIME [facility] Last Admin: 12/16/22 21:17 Dose: Not Given Hydroxyzine HCl (Hydroxyzine Hcl 25 Mg Tablet) 25 mg PO Q6H PRN PRN Reason: Anxiety [place] Carbonate ([place] Carbonate Er 450 Mg Tablet.Er) 900 mg PO BEDTIME [facility] Last Admin: 12/16/22 21:17 Dose: Not Given [place] Carbonate ([place] Carbonate 300 Mg Capsule) 600 mg PO DAILY [facility] Last Admin: 12/17/22 09:05 Dose: Not Given Magnesium Hydroxide (Milk Of Magnesia 30 Ml Oral.Susp) 30 ml PO DAILY PRN PRN Reason: Constipation Olanzapine (Olanzapine 10 Mg Tablet) 20 mg PO BID [facility] Last Admin: 12/17/22 09:05 Dose: Not Given Psyllium Hydrophilic Mucilloid (Psyllium Seed 3.4 Gm Powd.Pack) 3.4 gm PO DAILY [facility] Last Admin: 12/17/22 09:05 Dose: Not Given Trazodone HCl (Trazodone Hcl 50 Mg Tablet) 50 mg PO BEDTIME PRN PRN Reason: Insomnia Trazodone HCl (Trazodone Hcl 50 Mg Tablet) 50 mg PO BEDTIME MRX1 PRN PRN Reason: Insomnia Allergies Allergies Allergy/AdvReac Type Severity Reaction Status Date / Time bupropion [From Wellbutrin] Allergy Mild CAUSES Verified 12/03/22 00:30 SWOLLEN HEAD tetracycline [Tetracycline] Allergy Mild UNKNOWN Verified 12/03/22 00:30 trifluoperazine Allergy Mild UNKNOWN Verified 12/03/22 00:30 [From Stelazine] clozapine [From Clozaril] AdvReac Mild SEIZURES,NE Verified 12/03/22 00:30 UTROPENIA Assessment & Plan Assessment & Plan (1) Schizoaffective disorder, bipolar type: Status: Acute Code(s): F25.0 - Schizoaffective disorder, bipolar type Plan 12/15: offer medications. 12/16: completed commitment paperwork. defecated in paper bag and left it in the hallway, removed shirt and not responsive to direction to cover up. postured at staff attempting to enforce limits. 12/17: no change in presentation. continue current mgmt. filed for commitment. Reason for continued inpatient stay Substantial Risk for: harm to self, harm to others and inability to function Time Spent With Patient Time: Total time managing care of this patient today ____ minutes.
[2022-12-17 18:00] VITALS: BP 138/83; PULSE 91; RESP 18; TEMP 36.6; O2SAT 97
[2022-12-18 08:18] VITALS: BP 136/76; PULSE 88; RESP 16; TEMP 36.3; O2SAT 97
--- NOTE | 2022-12-18 11:24 | PC.NURSE ---
Pt refused all AM meds. Cooperative with vitals.
--- NOTE | 2022-12-18 16:31 | P.PNPSI_ITS ---
Subjective Subjective Date of Service: 12/18/22 Reason For Visit: Psychosis Subjective Notes: Section 7 Interim History: Pt continues to present as irritable. Pt states I will not speak with you or Dr. Fernandez or a combination thereof. Pt later followed this narrative writer and interrupted meeting with another pt to state the same. Review of Systems Review of Systems patient refused to answer review system Mental Status Exam Mental Status Exam Narrative: A&O. Pt in street clothes, adequate hygiene/ grooming. Intense eye contact, attentive. No Tics or Tremors. No abnormal involuntary movements. In behavioral control but elevated vocal volume and irritable, guarded. Non-pressured speech, spontaneous. affect is flat. no SI/SIBI/HI/AVH expressed. Insight/ Judgment poor. Diagnostics Vital Signs (24Hr): Vital Signs - 24 hr 12/17/22 18:00 12/18/22 08:18 Temperature 97.8 F 97.3 F Pulse Rate 91 88 Respiratory Rate 18 16 Blood Pressure 138/83 136/76 Pulse Oximetry 97 97 Oxygen Delivery Method Room Air Room Air BMI result Body Mass Index 27.6 Labs 12/14/22 02:33 12/15/22 09:08 Imaging Radiology Impressions: ITS Impressions Cervical Spine CT 12/14/22 08:06 IMPRESSION: 1. No acute intracranial, maxillofacial bone, or cervical abnormalities. 2. Right frontal cephalohematoma, not associated with fracture. 3. Coarse, lobulated calcification in the fourth ventricle, need to be further evaluated by MRI without and with contrast. 4. Degenerative changes in the cervical spine. Face CT 12/14/22 08:06 IMPRESSION: 1. No acute intracranial, maxillofacial bone, or cervical abnormalities. 2. Right frontal cephalohematoma, not associated with fracture. 3. Coarse, lobulated calcification in the fourth ventricle, need to be further evaluated by MRI without and with contrast. 4. Degenerative changes in the cervical spine. Head CT 12/14/22 08:06 IMPRESSION: 1. No acute intracranial, maxillofacial bone, or cervical abnormalities. 2. Right frontal cephalohematoma, not associated with fracture. 3. Coarse, lobulated calcification in the fourth ventricle, need to be further evaluated by MRI without and with contrast. 4. Degenerative changes in the cervical spine. Brain MRI 12/14/22 13:15 IMPRESSION: There is a 1.0 cm densely calcified lobulated lesion centered within the right anterior aspect of the fourth ventricle demonstrating peripheral enhancement. Differential considerations include a calcified choroid plexus cyst, choroid plexus papilloma, or intraventricular meningioma. The fourth ventricle remains patent without evidence of fourth ventricular outflow obstruction. No hydrocephalus. Generalized parenchymal volume loss and nonspecific white matter disease, likely mild chronic microangiopathy. Right frontal scalp hematoma. Medications Medications Current Medications Acetaminophen (Acetaminophen 325 Mg Tablet) 650 mg PO Q6H PRN PRN Reason: Headache/Pain Mild Scale (1-3) Al Hydroxide/Mg Hydroxide (Magnesium Hydrox/Alum Hydrox 30 Ml Oral.Susp) 30 ml PO Q6H PRN PRN Reason: Heartburn/Nausea Carbamazepine (Carbamazepine Er 200 Mg Tab.Er.12h) 200 mg PO DAILY [facility] Last Admin: 12/18/22 08:36 Dose: Not Given Carbamazepine (Carbamazepine Er 200 Mg Tab.Er.12h) 400 mg PO BEDTIME [facility] Last Admin: 12/17/22 20:19 Dose: Not Given Hydroxyzine HCl (Hydroxyzine Hcl 25 Mg Tablet) 25 mg PO Q6H PRN PRN Reason: Anxiety [place] Carbonate ([place] Carbonate Er 450 Mg Tablet.Er) 900 mg PO BEDTIME [facility] Last Admin: 12/17/22 20:19 Dose: Not Given [place] Carbonate ([place] Carbonate 300 Mg Capsule) 600 mg PO DAILY [facility] Last Admin: 12/18/22 08:36 Dose: Not Given Magnesium Hydroxide (Milk Of Magnesia 30 Ml Oral.Susp) 30 ml PO DAILY PRN PRN Reason: Constipation Olanzapine (Olanzapine 10 Mg Tablet) 20 mg PO BID [facility] Last Admin: 12/18/22 08:36 Dose: Not Given Psyllium Hydrophilic Mucilloid (Psyllium Seed 3.4 Gm Powd.Pack) 3.4 gm PO DAILY [facility] Last Admin: 12/18/22 08:36 Dose: Not Given Trazodone HCl (Trazodone Hcl 50 Mg Tablet) 50 mg PO BEDTIME PRN PRN Reason: Insomnia Trazodone HCl (Trazodone Hcl 50 Mg Tablet) 50 mg PO BEDTIME MRX1 PRN PRN Reason: Insomnia Allergies Allergies Allergy/AdvReac Type Severity Reaction Status Date / Time bupropion [From Wellbutrin] Allergy Mild CAUSES Verified 12/03/22 00:30 SWOLLEN HEAD tetracycline [Tetracycline] Allergy Mild UNKNOWN Verified 12/03/22 00:30 trifluoperazine Allergy Mild UNKNOWN Verified 12/03/22 00:30 [From Stelazine] clozapine [From Clozaril] AdvReac Mild SEIZURES,NE Verified 12/03/22 00:30 UTROPENIA Assessment & Plan Assessment & Plan (1) Schizoaffective disorder, bipolar type: Status: Acute Code(s): F25.0 - Schizoaffective disorder, bipolar type Plan 12/15: offer medications. 12/16: completed commitment paperwork. defecated in paper bag and left it in the hallway, removed shirt and not responsive to direction to cover up. postured at staff attempting to enforce limits. 12/17: no change in presentation. continue current mgmt. filed for commitment. 12/18 continue tx. not taking medications. Reason for continued inpatient stay Substantial Risk for: inability to function Time Spent With Patient Time: Total time managing care of this patient today ____ minutes.
[2022-12-18 20:24] VITALS: BP 116/71; PULSE 75; RESP 16; TEMP 36.6; O2SAT 98
[2022-12-19 06:00] VITALS: BP 140/76; PULSE 65; RESP 16; TEMP 36.7; O2SAT 96
--- NOTE | 2022-12-19 13:11 | PC.NURSE ---
Pt refused AM scheduled meds. Cooperative with vitals.
--- NOTE | 2022-12-19 14:17 | HO.PSYCHPN ---
Subjective Subjective Date of Service: 12/19/22 Reason For Visit: Psychosis Subjective Notes: Section 7 ( Court date pending) Medical Problems Affecting Mental Status: No Interim History: met with patient. Discussed with Nursing. Chart reviewed. Very limited participation on the unit. Internally preoccupied. With telegraphic typewriter operator declined to engage. Was clearly awake in his room but then closed eyes and would not speak. Noted this has been happening with other providers her also. Continues to refuse all medications prescribed. Medication Compliance: No Side effects from medications: No Attending Groups: No Review of Systems Acute medical concerns: No Review of Systems Review of Systems Yes Unobtainable due to mental status Mental Status Exam Mental Status Exam Narrative: In bed. Very poor self-care. Initially awake but when telegraphic typewriter operator attempted to engage closed his eyes and pretended to be asleep Diagnostics Vital Signs (24Hr): Vital Signs - 24 hr 12/18/22 20:24 12/19/22 06:00 Temperature 97.9 F 98.1 F Pulse Rate 75 65 Respiratory Rate 16 16 Blood Pressure 116/71 140/76 H Pulse Oximetry 98 96 Oxygen Delivery Method Room Air Room Air BMI result Body Mass Index 27.6 Labs 12/14/22 02:33 12/15/22 09:08 Imaging Radiology Impressions: ITS Impressions Cervical Spine CT 12/14/22 08:06 IMPRESSION: 1. No acute intracranial, maxillofacial bone, or cervical abnormalities. 2. Right frontal cephalohematoma, not associated with fracture. 3. Coarse, lobulated calcification in the fourth ventricle, need to be further evaluated by MRI without and with contrast. 4. Degenerative changes in the cervical spine. Face CT 12/14/22 08:06 IMPRESSION: 1. No acute intracranial, maxillofacial bone, or cervical abnormalities. 2. Right frontal cephalohematoma, not associated with fracture. 3. Coarse, lobulated calcification in the fourth ventricle, need to be further evaluated by MRI without and with contrast. 4. Degenerative changes in the cervical spine. Head CT 12/14/22 08:06 IMPRESSION: 1. No acute intracranial, maxillofacial bone, or cervical abnormalities. 2. Right frontal cephalohematoma, not associated with fracture. 3. Coarse, lobulated calcification in the fourth ventricle, need to be further evaluated by MRI without and with contrast. 4. Degenerative changes in the cervical spine. Brain MRI 12/14/22 13:15 IMPRESSION: There is a 1.0 cm densely calcified lobulated lesion centered within the right anterior aspect of the fourth ventricle demonstrating peripheral enhancement. Differential considerations include a calcified choroid plexus cyst, choroid plexus papilloma, or intraventricular meningioma. The fourth ventricle remains patent without evidence of fourth ventricular outflow obstruction. No hydrocephalus. Generalized parenchymal volume loss and nonspecific white matter disease, likely mild chronic microangiopathy. Right frontal scalp hematoma. Medications Medications Current Medications Acetaminophen (Acetaminophen 325 Mg Tablet) 650 mg PO Q6H PRN PRN Reason: Headache/Pain Mild Scale (1-3) Al Hydroxide/Mg Hydroxide (Magnesium Hydrox/Alum Hydrox 30 Ml Oral.Susp) 30 ml PO Q6H PRN PRN Reason: Heartburn/Nausea Carbamazepine (Carbamazepine Er 200 Mg Tab.Er.12h) 200 mg PO DAILY [facility] Last Admin: 12/19/22 09:25 Dose: Not Given Carbamazepine (Carbamazepine Er 200 Mg Tab.Er.12h) 400 mg PO BEDTIME [facility] Last Admin: 12/18/22 21:01 Dose: Not Given Hydroxyzine HCl (Hydroxyzine Hcl 25 Mg Tablet) 25 mg PO Q6H PRN PRN Reason: Anxiety [place] Carbonate ([place] Carbonate Er 450 Mg Tablet.Er) 900 mg PO BEDTIME [facility] Last Admin: 12/18/22 21:01 Dose: Not Given [place] Carbonate ([place] Carbonate 300 Mg Capsule) 600 mg PO DAILY [facility] Last Admin: 12/19/22 09:25 Dose: Not Given Magnesium Hydroxide (Milk Of Magnesia 30 Ml Oral.Susp) 30 ml PO DAILY PRN PRN Reason: Constipation Olanzapine (Olanzapine 10 Mg Tablet) 20 mg PO BID [facility] Last Admin: 12/19/22 09:26 Dose: Not Given Psyllium Hydrophilic Mucilloid (Psyllium Seed 3.4 Gm Powd.Pack) 3.4 gm PO DAILY [facility] Last Admin: 12/19/22 09:26 Dose: Not Given Trazodone HCl (Trazodone Hcl 50 Mg Tablet) 50 mg PO BEDTIME PRN PRN Reason: Insomnia Trazodone HCl (Trazodone Hcl 50 Mg Tablet) 50 mg PO BEDTIME MRX1 PRN PRN Reason: Insomnia Allergies Allergies Allergy/AdvReac Type Severity Reaction Status Date / Time bupropion [From Wellbutrin] Allergy Mild CAUSES Verified 12/03/22 00:30 SWOLLEN HEAD tetracycline [Tetracycline] Allergy Mild UNKNOWN Verified 12/03/22 00:30 trifluoperazine Allergy Mild UNKNOWN Verified 12/03/22 00:30 [From Stelazine] clozapine [From Clozaril] AdvReac Mild SEIZURES,NE Verified 12/03/22 00:30 UTROPENIA Assessment & Plan Assessment & Plan (1) Schizoaffective disorder, bipolar type: Status: Acute Code(s): F25.0 - Schizoaffective disorder, bipolar type Plan 12/15: offer medications. 12/16: completed commitment paperwork. defecated in paper bag and left it in the hallway, removed shirt and not responsive to direction to cover up. postured at staff attempting to enforce limits. 12/17: no change in presentation. continue current mgmt. filed for commitment. 12/18 continue tx. not taking medications. 12/19/2022: Continue to offer medications. Declining these. Court hearing to be scheduled. Reason for continued inpatient stay Substantial Risk for: harm to self, harm to others and inability to function Time Spent With Patient Time: Total time managing care of this patient today ____ minutes.
--- NOTE | 2022-12-19 15:09 | PC.NURSE ---
Pt engaging in various states of disrobing throughout the shift. Walking in the hallway and sitting at desk with the door open in his underwear. Standing in his room in the dark and in the middle of the room naked. Highly agitated when redirected by staff. Whipped 2 RNs in the face with a dru. Woman take their clothes off at strip clubs, why can't I?!! . Pt was offered to move his room to the anteroom for heightened privacy, and was accepting of this after much encouragement. Pt was later observed drawing over genitals and nipples in the fashion of a bikini. Staff intervened, and pt willingly gave up pen. Placed on 5 minute checks for disrobing behaviors and ongoing decompensation. Dr. Layton, Dangelo Villa, and Florina Aiken all notified. Will continue to monitor.
[2022-12-19 20:30] VITALS: BP 137/75; PULSE 94; RESP 16; TEMP 36.8; O2SAT 98
[2022-12-20 07:53] VITALS: BP 117/76; PULSE 82; RESP 16; TEMP 36.7; O2SAT 97
--- NOTE | 2022-12-20 10:14 | PC.NURSE ---
Refused scheduled AM medications. Cooperative with vital signs.
--- NOTE | 2022-12-20 13:45 | HO.PSYCHPN ---
Subjective Subjective Date of Service: 12/20/22 Reason For Visit: Psychosis Subjective Notes: Section 7 Interim History: met with patient. Discussed with Nursing. Chart reviewed. Last night disrobing. Refusing medications. Moved to anteroom last night. Internally preoccupied. With selling underwriter declined to engage in dayroom. Clearly internally preoccupied and poor self care. Guarded and suspicious. Continues to refuse all medications prescribed. Medication Compliance: No Side effects from medications: No Attending Groups: No Review of Systems Acute medical concerns: No Review of Systems Review of Systems Yes Unobtainable due to mental status Mental Status Exam Mental Status Exam Narrative: In day area. Very poor self-care. refused to engage with selling underwriter. Guarded and suspicious. Internally preoccupied. Diagnostics Vital Signs (24Hr): Vital Signs - 24 hr 12/19/22 20:30 12/20/22 07:53 Temperature 98.2 F 98.1 F Pulse Rate 94 82 Respiratory Rate 16 16 Blood Pressure 137/75 117/76 Pulse Oximetry 98 97 Oxygen Delivery Method Room Air Room Air BMI result Body Mass Index 27.6 Labs 12/14/22 02:33 12/15/22 09:08 Imaging Radiology Impressions: ITS Impressions Cervical Spine CT 12/14/22 08:06 IMPRESSION: 1. No acute intracranial, maxillofacial bone, or cervical abnormalities. 2. Right frontal cephalohematoma, not associated with fracture. 3. Coarse, lobulated calcification in the fourth ventricle, need to be further evaluated by MRI without and with contrast. 4. Degenerative changes in the cervical spine. Face CT 12/14/22 08:06 IMPRESSION: 1. No acute intracranial, maxillofacial bone, or cervical abnormalities. 2. Right frontal cephalohematoma, not associated with fracture. 3. Coarse, lobulated calcification in the fourth ventricle, need to be further evaluated by MRI without and with contrast. 4. Degenerative changes in the cervical spine. Head CT 12/14/22 08:06 IMPRESSION: 1. No acute intracranial, maxillofacial bone, or cervical abnormalities. 2. Right frontal cephalohematoma, not associated with fracture. 3. Coarse, lobulated calcification in the fourth ventricle, need to be further evaluated by MRI without and with contrast. 4. Degenerative changes in the cervical spine. Brain MRI 12/14/22 13:15 IMPRESSION: There is a 1.0 cm densely calcified lobulated lesion centered within the right anterior aspect of the fourth ventricle demonstrating peripheral enhancement. Differential considerations include a calcified choroid plexus cyst, choroid plexus papilloma, or intraventricular meningioma. The fourth ventricle remains patent without evidence of fourth ventricular outflow obstruction. No hydrocephalus. Generalized parenchymal volume loss and nonspecific white matter disease, likely mild chronic microangiopathy. Right frontal scalp hematoma. Medications Medications Current Medications Acetaminophen (Acetaminophen 325 Mg Tablet) 650 mg PO Q6H PRN PRN Reason: Headache/Pain Mild Scale (1-3) Al Hydroxide/Mg Hydroxide (Magnesium Hydrox/Alum Hydrox 30 Ml Oral.Susp) 30 ml PO Q6H PRN PRN Reason: Heartburn/Nausea Carbamazepine (Carbamazepine Er 200 Mg Tab.Er.12h) 200 mg PO DAILY [facility] Last Admin: 12/20/22 08:09 Dose: Not Given Carbamazepine (Carbamazepine Er 200 Mg Tab.Er.12h) 400 mg PO BEDTIME [facility] Last Admin: 12/19/22 20:45 Dose: Not Given Hydroxyzine HCl (Hydroxyzine Hcl 25 Mg Tablet) 25 mg PO Q6H PRN PRN Reason: Anxiety [place] Carbonate ([place] Carbonate Er 450 Mg Tablet.Er) 900 mg PO BEDTIME [facility] Last Admin: 12/19/22 20:45 Dose: Not Given [place] Carbonate ([place] Carbonate 300 Mg Capsule) 600 mg PO DAILY [facility] Last Admin: 12/20/22 08:09 Dose: Not Given Magnesium Hydroxide (Milk Of Magnesia 30 Ml Oral.Susp) 30 ml PO DAILY PRN PRN Reason: Constipation Olanzapine (Olanzapine 10 Mg Tablet) 20 mg PO BID [facility] Last Admin: 12/20/22 08:09 Dose: Not Given Psyllium Hydrophilic Mucilloid (Psyllium Seed 3.4 Gm Powd.Pack) 3.4 gm PO DAILY [facility] Last Admin: 12/20/22 08:09 Dose: Not Given Trazodone HCl (Trazodone Hcl 50 Mg Tablet) 50 mg PO BEDTIME PRN PRN Reason: Insomnia Trazodone HCl (Trazodone Hcl 50 Mg Tablet) 50 mg PO BEDTIME MRX1 PRN PRN Reason: Insomnia Allergies Allergies Allergy/AdvReac Type Severity Reaction Status Date / Time bupropion [From Wellbutrin] Allergy Mild CAUSES Verified 12/03/22 00:30 SWOLLEN HEAD tetracycline [Tetracycline] Allergy Mild UNKNOWN Verified 12/03/22 00:30 trifluoperazine Allergy Mild UNKNOWN Verified 12/03/22 00:30 [From Stelazine] clozapine [From Clozaril] AdvReac Mild SEIZURES,NE Verified 12/03/22 00:30 UTROPENIA Assessment & Plan Assessment & Plan (1) Schizoaffective disorder, bipolar type: Status: Acute Code(s): F25.0 - Schizoaffective disorder, bipolar type Plan 12/15: offer medications. 12/16: completed commitment paperwork. defecated in paper bag and left it in the hallway, removed shirt and not responsive to direction to cover up. postured at staff attempting to enforce limits. 12/17: no change in presentation. continue current mgmt. filed for commitment. 12/18 continue tx. not taking medications. 12/20/2022: Continue to offer medications. Declining these. Court hearing to be scheduled. Reason for continued inpatient stay Substantial Risk for: harm to others and inability to function Time Spent With Patient Time: Total time managing care of this patient today ____ minutes.
[2022-12-20 20:10] VITALS: BP 137/86; PULSE 79; RESP 18; TEMP 36.2; O2SAT 98
--- NOTE | 2022-12-21 03:41 | PC.NURSE ---
Eriberto is noted to be visible but isolative throughout the evening. he had minimal engagement with staff and no engagement with peers. he allowed vital signs but refused medications stating, I'm never taking medications again ever in this world. he then pushed this software writer X's 1. patient had to be redirected multiple times for either being in the hallway without a shirt or pants or taking his clothes off in the hallway. he remains preoccupied with positive self dialogue and nonsensical statements. he denies all psychiatric symptoms. monitor for safety, continue Plan of Care
[2022-12-21 08:16] VITALS: RESP 18
--- NOTE | 2022-12-21 09:01 | HO.PSYCHPN ---
Subjective Subjective Date of Service: 12/21/22 Reason For Visit: Psychosis Subjective Notes: Section 7 Interim History: Pt declined to speak with this curriculum writer, after this curriculum writer informed pt that is covering for Dr. Fernandez. Pt's underwear and hospital gown covered in urine, pt instructed to change to clean gown. Pt moved away to his room, geturing and talking to himself. Per nursing, pt only slept about 2 hrs. Pt declined medications for sleep and psychiatric illness. He pushed RN last night and was disrobing through the night in the [place]. He was spinning, becoming dizzy with unsteady gait, difficult to redirect. Diagnostics Vital Signs (24Hr): Vital Signs - 24 hr 12/20/22 20:10 12/21/22 08:16 Temperature 97.2 F Pulse Rate 79 Respiratory Rate 18 18 Blood Pressure 137/86 Pulse Oximetry 98 Oxygen Delivery Method Room Air BMI result Body Mass Index 27.6 Labs 12/14/22 02:33 12/15/22 09:08 Imaging Radiology Impressions: ITS Impressions Cervical Spine CT 12/14/22 08:06 IMPRESSION: 1. No acute intracranial, maxillofacial bone, or cervical abnormalities. 2. Right frontal cephalohematoma, not associated with fracture. 3. Coarse, lobulated calcification in the fourth ventricle, need to be further evaluated by MRI without and with contrast. 4. Degenerative changes in the cervical spine. Face CT 12/14/22 08:06 IMPRESSION: 1. No acute intracranial, maxillofacial bone, or cervical abnormalities. 2. Right frontal cephalohematoma, not associated with fracture. 3. Coarse, lobulated calcification in the fourth ventricle, need to be further evaluated by MRI without and with contrast. 4. Degenerative changes in the cervical spine. Head CT 12/14/22 08:06 IMPRESSION: 1. No acute intracranial, maxillofacial bone, or cervical abnormalities. 2. Right frontal cephalohematoma, not associated with fracture. 3. Coarse, lobulated calcification in the fourth ventricle, need to be further evaluated by MRI without and with contrast. 4. Degenerative changes in the cervical spine. Brain MRI 12/14/22 13:15 IMPRESSION: There is a 1.0 cm densely calcified lobulated lesion centered within the right anterior aspect of the fourth ventricle demonstrating peripheral enhancement. Differential considerations include a calcified choroid plexus cyst, choroid plexus papilloma, or intraventricular meningioma. The fourth ventricle remains patent without evidence of fourth ventricular outflow obstruction. No hydrocephalus. Generalized parenchymal volume loss and nonspecific white matter disease, likely mild chronic microangiopathy. Right frontal scalp hematoma. Medications Medications Current Medications Acetaminophen (Acetaminophen 325 Mg Tablet) 650 mg PO Q6H PRN PRN Reason: Headache/Pain Mild Scale (1-3) Al Hydroxide/Mg Hydroxide (Magnesium Hydrox/Alum Hydrox 30 Ml Oral.Susp) 30 ml PO Q6H PRN PRN Reason: Heartburn/Nausea Carbamazepine (Carbamazepine Er 200 Mg Tab.Er.12h) 200 mg PO DAILY [facility] Last Admin: 12/21/22 08:28 Dose: Not Given Carbamazepine (Carbamazepine Er 200 Mg Tab.Er.12h) 400 mg PO BEDTIME [facility] Last Admin: 12/20/22 21:53 Dose: Not Given Hydroxyzine HCl (Hydroxyzine Hcl 25 Mg Tablet) 25 mg PO Q6H PRN PRN Reason: Anxiety [place] Carbonate ([place] Carbonate Er 450 Mg Tablet.Er) 900 mg PO BEDTIME [facility] Last Admin: 12/20/22 21:53 Dose: Not Given [place] Carbonate ([place] Carbonate 300 Mg Capsule) 600 mg PO DAILY [facility] Last Admin: 12/21/22 08:28 Dose: Not Given Magnesium Hydroxide (Milk Of Magnesia 30 Ml Oral.Susp) 30 ml PO DAILY PRN PRN Reason: Constipation Olanzapine (Olanzapine 10 Mg Tablet) 20 mg PO BID [facility] Last Admin: 12/21/22 08:29 Dose: Not Given Psyllium Hydrophilic Mucilloid (Psyllium Seed 3.4 Gm Powd.Pack) 3.4 gm PO DAILY [facility] Last Admin: 12/21/22 08:29 Dose: Not Given Trazodone HCl (Trazodone Hcl 50 Mg Tablet) 50 mg PO BEDTIME PRN PRN Reason: Insomnia Trazodone HCl (Trazodone Hcl 50 Mg Tablet) 50 mg PO BEDTIME MRX1 PRN PRN Reason: Insomnia Allergies Allergies Allergy/AdvReac Type Severity Reaction Status Date / Time bupropion [From Wellbutrin] Allergy Mild CAUSES Verified 12/03/22 00:30 SWOLLEN HEAD tetracycline [Tetracycline] Allergy Mild UNKNOWN Verified 12/03/22 00:30 trifluoperazine Allergy Mild UNKNOWN Verified 12/03/22 00:30 [From Stelazine] clozapine [From Clozaril] AdvReac Mild SEIZURES,NE Verified 12/03/22 00:30 UTROPENIA Assessment & Plan Assessment & Plan (1) Schizoaffective disorder, bipolar type: Status: Acute Code(s): F25.0 - Schizoaffective disorder, bipolar type Plan 12/15: offer medications. 12/16: completed commitment paperwork. defecated in paper bag and left it in the hallway, removed shirt and not responsive to direction to cover up. postured at staff attempting to enforce limits. 12/17: no change in presentation. continue current mgmt. filed for commitment. 12/18 continue tx. not taking medications. 12/20/2022: Continue to offer medications. Declining these. Court hearing to be scheduled. 12/21 continue tx. Reason for continued inpatient stay Substantial Risk for: harm to others and inability to function Time Spent With Patient Time: Total time managing care of this patient today ____ minutes.
[2022-12-21 19:50] VITALS: BP 118/70; PULSE 85; RESP 18; TEMP 36.3; O2SAT 98
--- NOTE | 2022-12-21 22:06 | PC.NURSE ---
Eriberto was visible on the unit in the day room watching TV until approximately 20:30. he refused HS medications, he denies depression/anxiety, auditory/visual hallucinations, suicidal/homicidal ideation. her remains internally preoccupied, with grandiosity and flight of ideas. as well as delusional thought content and thought blocking. he has not had any behavioral concerns at this time. continue to monitor for safety, continue Plan of Care
[2022-12-22 08:51] VITALS: RESP 18
--- NOTE | 2022-12-22 11:33 | HO.PSYCHPN ---
Subjective Subjective Date of Service: 12/22/22 Reason For Visit: Psychosis Subjective Notes: Section 7 Interim History: Pt reports I'm rather well considering conditions am in. He reports I'm a super, super human being, I don't need to sleep. Pt writing on menu, disorganized to focused and complete task of electing his meals while on the unit. Per nursing, pt did not sleep last night. He was again restless, disrobing at times. He did follow this service writer after when attempted to meet with other pts. Pt needed redirection. Medication Compliance: No Review of Systems Review of Systems patient refused to answer review system Yes Unobtainable due to mental status Mental Status Exam Mental Status Exam Narrative: Appearance: wearing purple shirt, poor hygiene, in NAD Behavior: guarded, irritable. Psychomotor: no agitation or retardation noted Speech: clear, hyperverbal, not pressured, spontaneous TP: repetitive, tangential TC: grandiose ideas, I'm a super human being, paranoid towards staff and medications SI: denies HI: denies VH/AH: internally preoccupied. Delusions: paranoid and grandiose Insight/judgment: impaired x 2. Diagnostics Vital Signs (24Hr): Vital Signs - 24 hr 12/21/22 19:50 12/22/22 08:51 Temperature 97.3 F Pulse Rate 85 Respiratory Rate 18 18 Blood Pressure 118/70 Pulse Oximetry 98 Oxygen Delivery Method Room Air BMI result Body Mass Index 27.6 Labs 12/14/22 02:33 12/15/22 09:08 Imaging Radiology Impressions: ITS Impressions Cervical Spine CT 12/14/22 08:06 IMPRESSION: 1. No acute intracranial, maxillofacial bone, or cervical abnormalities. 2. Right frontal cephalohematoma, not associated with fracture. 3. Coarse, lobulated calcification in the fourth ventricle, need to be further evaluated by MRI without and with contrast. 4. Degenerative changes in the cervical spine. Face CT 12/14/22 08:06 IMPRESSION: 1. No acute intracranial, maxillofacial bone, or cervical abnormalities. 2. Right frontal cephalohematoma, not associated with fracture. 3. Coarse, lobulated calcification in the fourth ventricle, need to be further evaluated by MRI without and with contrast. 4. Degenerative changes in the cervical spine. Head CT 12/14/22 08:06 IMPRESSION: 1. No acute intracranial, maxillofacial bone, or cervical abnormalities. 2. Right frontal cephalohematoma, not associated with fracture. 3. Coarse, lobulated calcification in the fourth ventricle, need to be further evaluated by MRI without and with contrast. 4. Degenerative changes in the cervical spine. Brain MRI 12/14/22 13:15 IMPRESSION: There is a 1.0 cm densely calcified lobulated lesion centered within the right anterior aspect of the fourth ventricle demonstrating peripheral enhancement. Differential considerations include a calcified choroid plexus cyst, choroid plexus papilloma, or intraventricular meningioma. The fourth ventricle remains patent without evidence of fourth ventricular outflow obstruction. No hydrocephalus. Generalized parenchymal volume loss and nonspecific white matter disease, likely mild chronic microangiopathy. Right frontal scalp hematoma. Medications Medications Current Medications Acetaminophen (Acetaminophen 325 Mg Tablet) 650 mg PO Q6H PRN PRN Reason: Headache/Pain Mild Scale (1-3) Al Hydroxide/Mg Hydroxide (Magnesium Hydrox/Alum Hydrox 30 Ml Oral.Susp) 30 ml PO Q6H PRN PRN Reason: Heartburn/Nausea Carbamazepine (Carbamazepine Er 200 Mg Tab.Er.12h) 200 mg PO DAILY [facility] Last Admin: 12/22/22 08:51 Dose: Not Given Carbamazepine (Carbamazepine Er 200 Mg Tab.Er.12h) 400 mg PO BEDTIME [facility] Last Admin: 12/21/22 20:59 Dose: Not Given Hydroxyzine HCl (Hydroxyzine Hcl 25 Mg Tablet) 25 mg PO Q6H PRN PRN Reason: Anxiety [place] Carbonate ([place] Carbonate Er 450 Mg Tablet.Er) 900 mg PO BEDTIME [facility] Last Admin: 12/21/22 20:59 Dose: Not Given [place] Carbonate ([place] Carbonate 300 Mg Capsule) 600 mg PO DAILY [facility] Last Admin: 12/22/22 08:51 Dose: Not Given Magnesium Hydroxide (Milk Of Magnesia 30 Ml Oral.Susp) 30 ml PO DAILY PRN PRN Reason: Constipation Olanzapine (Olanzapine 10 Mg Tablet) 20 mg PO BID [facility] Last Admin: 12/22/22 08:51 Dose: Not Given Psyllium Hydrophilic Mucilloid (Psyllium Seed 3.4 Gm Powd.Pack) 3.4 gm PO DAILY [facility] Last Admin: 12/22/22 08:51 Dose: Not Given Trazodone HCl (Trazodone Hcl 50 Mg Tablet) 50 mg PO BEDTIME PRN PRN Reason: Insomnia Trazodone HCl (Trazodone Hcl 50 Mg Tablet) 50 mg PO BEDTIME MRX1 PRN PRN Reason: Insomnia Allergies Allergies Allergy/AdvReac Type Severity Reaction Status Date / Time bupropion [From Wellbutrin] Allergy Mild CAUSES Verified 12/03/22 00:30 SWOLLEN HEAD tetracycline [Tetracycline] Allergy Mild UNKNOWN Verified 12/03/22 00:30 trifluoperazine Allergy Mild UNKNOWN Verified 12/03/22 00:30 [From Stelazine] clozapine [From Clozaril] AdvReac Mild SEIZURES,NE Verified 12/03/22 00:30 UTROPENIA Assessment & Plan Assessment & Plan (1) Schizoaffective disorder, bipolar type: Status: Acute Code(s): F25.0 - Schizoaffective disorder, bipolar type Plan 12/15: offer medications. 12/16: completed commitment paperwork. defecated in paper bag and left it in the hallway, removed shirt and not responsive to direction to cover up. postured at staff attempting to enforce limits. 12/17: no change in presentation. continue current mgmt. filed for commitment. 12/18 continue tx. not taking medications. 12/20/2022: Continue to offer medications. Declining these. Court hearing to be scheduled. 12/21 continue tx. 12/22 continue tx. Reason for continued inpatient stay Substantial Risk for: inability to function Time Spent With Patient Time: Total time managing care of this patient today ____ minutes.
--- NOTE | 2022-12-22 16:41 | PC.NURSE ---
At 1600, pt walked out of his room and began kicking the doors and jeffrey in the hallway. When staff approached pt, it was noted that he had feces on his socks. Staff redirected pt back to his room and attempted to change his clothes and socks but patient refused. Pt stated that I must keep my socks on for four hours. RN asked him if he pooped on the floor, pt stated yes I did spread my fecal matter in my bathroom. Pt had smeared feces all over the jeffrey and floor of his bathroom. Pt placed clothes on top of feces. Pt stated he did this in an attempt to save the world. Staff cleaned bathroom, hallway, and jeffrey and notified environmental services. When staff was cleaning, pt asked are you having fun ruining my masterpiece?
[2022-12-22 17:59] VITALS: RESP 18
--- NOTE | 2022-12-22 18:20 | PC.NURSE ---
When staff was doing checks, it was brought to attention that pt had defecated in his doorway. When RN asked him why he did this, pt stated it was our knowledge to figure out why.
[2022-12-23] MEDS: OLANZapine 10 MG TABLET 20 MG PO ×2 (07:58→20:28)
[2022-12-23] MEDS: Lithium Carbonate 300 MG CAPSULE 600 MG PO (07:58)
[2022-12-23] MEDS: carBAMazepine ER 200 MG TAB.ER.12H PO (07:58)
[2022-12-23 08:00] VITALS: BP 107/77; PULSE 97; RESP 17; TEMP 36.6; O2SAT 98
--- NOTE | 2022-12-23 13:36 | HO.PSYCHPN ---
Subjective Subjective Date of Service: 12/23/22 Reason For Visit: Psychosis Interim History: last 5 days' worth of records reviewed. attempted to meet with pt mid-morning. pt was asleep in his bed, snoring softly. decided it would be more therapeutic to allow pt to sleep than to awaken him for interview. this view was adopted in the context of pt's getting very little sleep recently and having taken his medications for the first time during the present hospitalization this morning. per staff, RIS. attended art group. took meds this morning for the first time. spread fecal matter on the jeffrey and floor of his bathroom to save the world. placed fecal matter in the doorway of his room. walked about the unit with socks bearing visible fecal material and refused to change them when directed to do so. pushing through people to do laps on the unit, moving persons seated in their chairs. court scheduled for tomorrow. Mental Status Exam Mental Status Exam Narrative: sleeping supine snoring softly. disheveled, poor hygiene. room smelling of feces. Diagnostics Vital Signs (24Hr): Vital Signs - 24 hr 12/22/22 17:59 12/23/22 08:00 Temperature 97.8 F Pulse Rate 97 Respiratory Rate 18 17 Blood Pressure 107/77 Pulse Oximetry 98 Oxygen Delivery Method Room Air BMI result Body Mass Index 27.6 Labs 12/14/22 02:33 12/15/22 09:08 Imaging Radiology Impressions: ITS Impressions Cervical Spine CT 12/14/22 08:06 IMPRESSION: 1. No acute intracranial, maxillofacial bone, or cervical abnormalities. 2. Right frontal cephalohematoma, not associated with fracture. 3. Coarse, lobulated calcification in the fourth ventricle, need to be further evaluated by MRI without and with contrast. 4. Degenerative changes in the cervical spine. Face CT 12/14/22 08:06 IMPRESSION: 1. No acute intracranial, maxillofacial bone, or cervical abnormalities. 2. Right frontal cephalohematoma, not associated with fracture. 3. Coarse, lobulated calcification in the fourth ventricle, need to be further evaluated by MRI without and with contrast. 4. Degenerative changes in the cervical spine. Head CT 12/14/22 08:06 IMPRESSION: 1. No acute intracranial, maxillofacial bone, or cervical abnormalities. 2. Right frontal cephalohematoma, not associated with fracture. 3. Coarse, lobulated calcification in the fourth ventricle, need to be further evaluated by MRI without and with contrast. 4. Degenerative changes in the cervical spine. Brain MRI 12/14/22 13:15 IMPRESSION: There is a 1.0 cm densely calcified lobulated lesion centered within the right anterior aspect of the fourth ventricle demonstrating peripheral enhancement. Differential considerations include a calcified choroid plexus cyst, choroid plexus papilloma, or intraventricular meningioma. The fourth ventricle remains patent without evidence of fourth ventricular outflow obstruction. No hydrocephalus. Generalized parenchymal volume loss and nonspecific white matter disease, likely mild chronic microangiopathy. Right frontal scalp hematoma. Medications Medications Current Medications Acetaminophen (Acetaminophen 325 Mg Tablet) 650 mg PO Q6H PRN PRN Reason: Headache/Pain Mild Scale (1-3) Al Hydroxide/Mg Hydroxide (Magnesium Hydrox/Alum Hydrox 30 Ml Oral.Susp) 30 ml PO Q6H PRN PRN Reason: Heartburn/Nausea Carbamazepine (Carbamazepine Er 200 Mg Tab.Er.12h) 200 mg PO DAILY [facility] Last Admin: 12/23/22 07:58 Dose: 200 mg Carbamazepine (Carbamazepine Er 200 Mg Tab.Er.12h) 400 mg PO BEDTIME [facility] Last Admin: 12/22/22 20:11 Dose: Not Given Hydroxyzine HCl (Hydroxyzine Hcl 25 Mg Tablet) 25 mg PO Q6H PRN PRN Reason: Anxiety [place] Carbonate ([place] Carbonate Er 450 Mg Tablet.Er) 900 mg PO BEDTIME [facility] Last Admin: 12/22/22 20:11 Dose: Not Given [place] Carbonate ([place] Carbonate 300 Mg Capsule) 600 mg PO DAILY [facility] Last Admin: 12/23/22 07:58 Dose: 600 mg Magnesium Hydroxide (Milk Of Magnesia 30 Ml Oral.Susp) 30 ml PO DAILY PRN PRN Reason: Constipation Olanzapine (Olanzapine 10 Mg Tablet) 20 mg PO BID [facility] Last Admin: 12/23/22 07:58 Dose: 20 mg Psyllium Hydrophilic Mucilloid (Psyllium Seed 3.4 Gm Powd.Pack) 3.4 gm PO DAILY [facility] Last Admin: 12/23/22 07:57 Dose: 3.4 gm Trazodone HCl (Trazodone Hcl 50 Mg Tablet) 50 mg PO BEDTIME PRN PRN Reason: Insomnia Trazodone HCl (Trazodone Hcl 50 Mg Tablet) 50 mg PO BEDTIME MRX1 PRN PRN Reason: Insomnia Allergies Allergies Allergy/AdvReac Type Severity Reaction Status Date / Time bupropion [From Wellbutrin] Allergy Mild CAUSES Verified 12/03/22 00:30 SWOLLEN HEAD tetracycline [Tetracycline] Allergy Mild UNKNOWN Verified 12/03/22 00:30 trifluoperazine Allergy Mild UNKNOWN Verified 12/03/22 00:30 [From Stelazine] clozapine [From Clozaril] AdvReac Mild SEIZURES,NE Verified 12/03/22 00:30 UTROPENIA Assessment & Plan Assessment & Plan (1) Schizoaffective disorder, bipolar type: Status: Acute Code(s): F25.0 - Schizoaffective disorder, bipolar type Plan 12/15: offer medications. 12/16: completed commitment paperwork. defecated in paper bag and left it in the hallway, removed shirt and not responsive to direction to cover up. postured at staff attempting to enforce limits. 12/17: no change in presentation. continue current mgmt. filed for commitment. 12/18 continue tx. not taking medications. 12/20: Last night disrobing. Continue to offer medications. Declining these. Court hearing to be scheduled. 12/21: continue tx. Pt's underwear and hospital gown covered in urine, pt instructed to change to clean gown. Pt moved away to his room, gesturing and talking to himself. Per nursing, pt only slept about 2 hrs. Pt declined medications for sleep and psychiatric illness. He pushed RN last night and was disrobing through the night in the [place]. He was spinning, becoming dizzy with unsteady gait, difficult to redirect. 12/22: continue tx. He reports I'm a super, super human being, I don't need to sleep. Pt writing on menu, disorganized to focused and complete task of electing his meals while on the unit. Per nursing, pt did not sleep last night. He was again restless, disrobing at times. He did follow this tag writer after when attempted to meet with other pts. Pt needed redirection. 12/23: smearing feces on jeffrey and floor of bathroom last night, refused to change fecally soiled socks, placing fecal material in his doorway, pushing through others to do laps, moving others as they sat in their chairs. took meds this morning for the first time this admission, sound asleep late morning. hearing scheduled for tomorrow. continue current mgmt. Reason for continued inpatient stay Substantial Risk for: harm to self, harm to others and inability to function Time Spent With Patient Time: Total time managing care of this patient today _25___ minutes.
[2022-12-23 20:00] VITALS: BP 118/60; PULSE 73; RESP 18; TEMP 36.7; O2SAT 97
[2022-12-23] MEDS: Lithium Carbonate ER 450 MG TABLET.ER 900 MG PO (20:28)
[2022-12-23] MEDS: carBAMazepine ER 200 MG TAB.ER.12H 400 MG PO (20:29)
--- NOTE | 2022-12-24 07:32 | PC.NURSE ---
OOB-washed hands in bathroom then came into the hallway and wiped his soapy hands on t/w
[2022-12-24 08:07] VITALS: BP 145/82; PULSE 91; RESP 18; TEMP 36.5; O2SAT 98
[2022-12-24] MEDS: carBAMazepine ER 200 MG TAB.ER.12H PO (08:20)
[2022-12-24] MEDS: OLANZapine 10 MG TABLET 20 MG PO (08:20)
[2022-12-24] MEDS: Lithium Carbonate 300 MG CAPSULE 600 MG PO (08:20)
--- NOTE | 2022-12-24 15:23 | HO.PSYCHPN ---
Subjective Subjective Date of Service: 12/24/22 Reason For Visit: Psychosis Interim History: pt waved MD away upon attempted interview today. commitment hearing held. per staff, napping, walking in circles. not attending groups. kicking around lid of food tray. incontinent of urine. running in [place], eating jigsaw puzzle pieces. got hands soapy and wet and then wiped hands off on RN's clothing. taken medications 3 times in a row. urinated in corner of his room and told staff it was to save them. wandering into others' rooms. Mental Status Exam Mental Status Exam Narrative: A&O. Pt in street clothes, adequate hygiene/ grooming. no eye contact, attentive. No Tics or Tremors. No abnormal involuntary movements. In behavioral control but guarded. Non-pressured speech, not spontaneous. affect is flat. no SI/SIBI/HI/AVH expressed. Insight/ Judgment poor. Diagnostics Vital Signs (24Hr): Vital Signs - 24 hr 12/23/22 20:00 12/24/22 08:07 Temperature 98.1 F 97.7 F Pulse Rate 73 91 Respiratory Rate 18 18 Blood Pressure 118/60 145/82 H Pulse Oximetry 97 98 Oxygen Delivery Method Room Air Room Air BMI result Body Mass Index 27.6 Labs 12/14/22 02:33 12/15/22 09:08 Imaging Radiology Impressions: ITS Impressions Cervical Spine CT 12/14/22 08:06 IMPRESSION: 1. No acute intracranial, maxillofacial bone, or cervical abnormalities. 2. Right frontal cephalohematoma, not associated with fracture. 3. Coarse, lobulated calcification in the fourth ventricle, need to be further evaluated by MRI without and with contrast. 4. Degenerative changes in the cervical spine. Face CT 12/14/22 08:06 IMPRESSION: 1. No acute intracranial, maxillofacial bone, or cervical abnormalities. 2. Right frontal cephalohematoma, not associated with fracture. 3. Coarse, lobulated calcification in the fourth ventricle, need to be further evaluated by MRI without and with contrast. 4. Degenerative changes in the cervical spine. Head CT 12/14/22 08:06 IMPRESSION: 1. No acute intracranial, maxillofacial bone, or cervical abnormalities. 2. Right frontal cephalohematoma, not associated with fracture. 3. Coarse, lobulated calcification in the fourth ventricle, need to be further evaluated by MRI without and with contrast. 4. Degenerative changes in the cervical spine. Brain MRI 12/14/22 13:15 IMPRESSION: There is a 1.0 cm densely calcified lobulated lesion centered within the right anterior aspect of the fourth ventricle demonstrating peripheral enhancement. Differential considerations include a calcified choroid plexus cyst, choroid plexus papilloma, or intraventricular meningioma. The fourth ventricle remains patent without evidence of fourth ventricular outflow obstruction. No hydrocephalus. Generalized parenchymal volume loss and nonspecific white matter disease, likely mild chronic microangiopathy. Right frontal scalp hematoma. Medications Medications Current Medications Acetaminophen (Acetaminophen 325 Mg Tablet) 650 mg PO Q6H PRN PRN Reason: Headache/Pain Mild Scale (1-3) Al Hydroxide/Mg Hydroxide (Magnesium Hydrox/Alum Hydrox 30 Ml Oral.Susp) 30 ml PO Q6H PRN PRN Reason: Heartburn/Nausea Carbamazepine (Carbamazepine Er 200 Mg Tab.Er.12h) 200 mg PO DAILY [facility] Last Admin: 12/24/22 08:20 Dose: 200 mg Carbamazepine (Carbamazepine Er 200 Mg Tab.Er.12h) 400 mg PO BEDTIME [facility] Last Admin: 12/23/22 20:29 Dose: 400 mg Hydroxyzine HCl (Hydroxyzine Hcl 25 Mg Tablet) 25 mg PO Q6H PRN PRN Reason: Anxiety [place] Carbonate ([place] Carbonate Er 450 Mg Tablet.Er) 900 mg PO BEDTIME [facility] Last Admin: 12/23/22 20:28 Dose: 900 mg [place] Carbonate ([place] Carbonate 300 Mg Capsule) 600 mg PO DAILY [facility] Last Admin: 12/24/22 08:20 Dose: 600 mg Magnesium Hydroxide (Milk Of Magnesia 30 Ml Oral.Susp) 30 ml PO DAILY PRN PRN Reason: Constipation Olanzapine (Olanzapine 10 Mg Tablet) 20 mg PO BID [facility] Last Admin: 12/24/22 08:20 Dose: 20 mg Psyllium Hydrophilic Mucilloid (Psyllium Seed 3.4 Gm Powd.Pack) 3.4 gm PO DAILY [facility] Last Admin: 12/24/22 08:20 Dose: 3.4 gm Trazodone HCl (Trazodone Hcl 50 Mg Tablet) 50 mg PO BEDTIME PRN PRN Reason: Insomnia Trazodone HCl (Trazodone Hcl 50 Mg Tablet) 50 mg PO BEDTIME MRX1 PRN PRN Reason: Insomnia Allergies Allergies Allergy/AdvReac Type Severity Reaction Status Date / Time [facility] Allergy Mild CAUSES Verified 12/03/22 00:30 SWOLLEN HEAD tetracycline [Tetracycline] Allergy Mild UNKNOWN Verified 12/03/22 00:30 trifluoperazine Allergy Mild UNKNOWN Verified 12/03/22 00:30 [From Stelazine] clozapine [From Clozaril] AdvReac Mild SEIZURES,NE Verified 12/03/22 00:30 UTROPENIA Assessment & Plan Assessment & Plan (1) Schizoaffective disorder, bipolar type: Status: Acute Code(s): F25.0 - Schizoaffective disorder, bipolar type Plan 12/15: offer medications. 12/16: completed commitment paperwork. defecated in paper bag and left it in the hallway, removed shirt and not responsive to direction to cover up. postured at staff attempting to enforce limits. 12/17: no change in presentation. continue current mgmt. filed for commitment. 12/18 continue tx. not taking medications. 12/20: Last night disrobing. Continue to offer medications. Declining these. Court hearing to be scheduled. 12/21: continue tx. Pt's underwear and hospital gown covered in urine, pt instructed to change to clean gown. Pt moved away to his room, gesturing and talking to himself. Per nursing, pt only slept about 2 hrs. Pt declined medications for sleep and psychiatric illness. He pushed RN last night and was disrobing through the night in the [place]. He was spinning, becoming dizzy with unsteady gait, difficult to redirect. 12/22: continue tx. He reports I'm a super, super human being, I don't need to sleep. Pt writing on menu, disorganized to focused and complete task of electing his meals while on the unit. Per nursing, pt did not sleep last night. He was again restless, disrobing at times. He did follow this gag writer after when attempted to meet with other pts. Pt needed redirection. 12/23: smearing feces on jeffrey and floor of bathroom last night, refused to change fecally soiled socks, placing fecal material in his doorway, pushing through others to do laps, moving others as they sat in their chairs. took meds this morning for the first time this admission, sound asleep late morning. hearing scheduled for tomorrow. continue current mgmt. 12/24: refusing interview. continued disorganized behavior overnight. committed and meds ordered. Reason for continued inpatient stay Substantial Risk for: harm to self, harm to others and inability to function Time Spent With Patient Time: Total time managing care of this patient today __100__ minutes.
[2022-12-24 18:00] VITALS: BP 165/84; PULSE 102; RESP 18; TEMP 36.3; O2SAT 98
[2022-12-25 08:00] VITALS: BP 119/73; PULSE 79; RESP 16; TEMP 36.4; O2SAT 98
[2022-12-25] MEDS: Haloperidol Lactate 5 MG/ML VIAL 10 MG IM ×2 (11:13→23:15)
[2022-12-25] MEDS: LORazepam 2 MG/ML VIAL IM ×2 (11:14→23:15)
--- NOTE | 2022-12-25 11:20 | PC.NURSE ---
Patient refused medications and was medicated with IM medication per court order
--- NOTE | 2022-12-25 13:02 | HO.PSYCHPN ---
Subjective Subjective Date of Service: 12/25/22 Reason For Visit: Psychosis Interim History: attempted to greet patient as he walked the [place]. pt ignored MD and continued past. took IM meds this morning rathger than PO meds. per staff refused meds last night and this morning. disrobing in kitchen. if you offer me meds, i have the right to punch you in the stomach. Mental Status Exam Mental Status Exam Narrative: A&O. Pt in street clothes, adequate hygiene/ grooming. no eye contact, inattentive. No Tics or Tremors. No abnormal involuntary movements. In behavioral control but guarded. affect is flat. no SI/SIBI/HI/AVH expressed. Insight/ Judgment poor. Diagnostics Vital Signs (24Hr): Vital Signs - 24 hr 12/24/22 18:00 12/25/22 08:00 Temperature 97.4 F 97.6 F Pulse Rate 102 H 79 Respiratory Rate 18 16 Blood Pressure 165/84 H 119/73 Pulse Oximetry 98 98 Oxygen Delivery Method Room Air Room Air BMI result Body Mass Index 27.6 Labs 12/14/22 02:33 12/15/22 09:08 Imaging Radiology Impressions: ITS Impressions Cervical Spine CT 12/14/22 08:06 IMPRESSION: 1. No acute intracranial, maxillofacial bone, or cervical abnormalities. 2. Right frontal cephalohematoma, not associated with fracture. 3. Coarse, lobulated calcification in the fourth ventricle, need to be further evaluated by MRI without and with contrast. 4. Degenerative changes in the cervical spine. Face CT 12/14/22 08:06 IMPRESSION: 1. No acute intracranial, maxillofacial bone, or cervical abnormalities. 2. Right frontal cephalohematoma, not associated with fracture. 3. Coarse, lobulated calcification in the fourth ventricle, need to be further evaluated by MRI without and with contrast. 4. Degenerative changes in the cervical spine. Head CT 12/14/22 08:06 IMPRESSION: 1. No acute intracranial, maxillofacial bone, or cervical abnormalities. 2. Right frontal cephalohematoma, not associated with fracture. 3. Coarse, lobulated calcification in the fourth ventricle, need to be further evaluated by MRI without and with contrast. 4. Degenerative changes in the cervical spine. Brain MRI 12/14/22 13:15 IMPRESSION: There is a 1.0 cm densely calcified lobulated lesion centered within the right anterior aspect of the fourth ventricle demonstrating peripheral enhancement. Differential considerations include a calcified choroid plexus cyst, choroid plexus papilloma, or intraventricular meningioma. The fourth ventricle remains patent without evidence of fourth ventricular outflow obstruction. No hydrocephalus. Generalized parenchymal volume loss and nonspecific white matter disease, likely mild chronic microangiopathy. Right frontal scalp hematoma. Medications Medications Current Medications Acetaminophen (Acetaminophen 325 Mg Tablet) 650 mg PO Q6H PRN PRN Reason: Headache/Pain Mild Scale (1-3) Al Hydroxide/Mg Hydroxide (Magnesium Hydrox/Alum Hydrox 30 Ml Oral.Susp) 30 ml PO Q6H PRN PRN Reason: Heartburn/Nausea Carbamazepine (Carbamazepine Er 200 Mg Tab.Er.12h) 200 mg PO DAILY [facility] Last Admin: 12/25/22 08:26 Dose: Not Given Carbamazepine (Carbamazepine Er 200 Mg Tab.Er.12h) 400 mg PO BEDTIME [facility] Last Admin: 12/24/22 23:24 Dose: Not Given Haloperidol Lactate (Haloperidol Lactate 5 Mg/Ml Vial) 10 mg IM BID PRN PRN Reason: refusal of medsjuan Last Admin: 12/25/22 11:13 Dose: 10 mg Hydroxyzine HCl (Hydroxyzine Hcl 25 Mg Tablet) 25 mg PO Q6H PRN PRN Reason: Anxiety [place] Carbonate ([place] Carbonate Er 450 Mg Tablet.Er) 900 mg PO BEDTIME [facility] Last Admin: 12/24/22 23:24 Dose: Not Given [place] Carbonate ([place] Carbonate 300 Mg Capsule) 600 mg PO DAILY [facility] Last Admin: 12/25/22 08:26 Dose: Not Given Lorazepam (Lorazepam 2 Mg/Ml Vial) 2 mg IM BID PRN PRN Reason: refusal of medsjuan Last Admin: 12/25/22 11:14 Dose: 2 mg Magnesium Hydroxide (Milk Of Magnesia 30 Ml Oral.Susp) 30 ml PO DAILY PRN PRN Reason: Constipation Olanzapine (Olanzapine 10 Mg Tablet) 20 mg PO BID [facility] Last Admin: 12/25/22 08:27 Dose: Not Given Psyllium Hydrophilic Mucilloid (Psyllium Seed 3.4 Gm Powd.Pack) 3.4 gm PO DAILY [facility] Last Admin: 12/25/22 08:27 Dose: Not Given Trazodone HCl (Trazodone Hcl 50 Mg Tablet) 50 mg PO BEDTIME PRN PRN Reason: Insomnia Trazodone HCl (Trazodone Hcl 50 Mg Tablet) 50 mg PO BEDTIME MRX1 PRN PRN Reason: Insomnia Allergies Allergies Allergy/AdvReac Type Severity Reaction Status Date / Time bupropion [From Wellbutrin] Allergy Mild CAUSES Verified 12/03/22 00:30 SWOLLEN HEAD tetracycline [Tetracycline] Allergy Mild UNKNOWN Verified 12/03/22 00:30 trifluoperazine Allergy Mild UNKNOWN Verified 12/03/22 00:30 [From Stelazine] clozapine [From Clozaril] AdvReac Mild SEIZURES,NE Verified 12/03/22 00:30 UTROPENIA Assessment & Plan Assessment & Plan (1) Schizoaffective disorder, bipolar type: Status: Acute Code(s): F25.0 - Schizoaffective disorder, bipolar type Plan 12/15: offer medications. 12/16: completed commitment paperwork. defecated in paper bag and left it in the hallway, removed shirt and not responsive to direction to cover up. postured at staff attempting to enforce limits. 12/17: no change in presentation. continue current mgmt. filed for commitment. 12/18 continue tx. not taking medications. 12/20: Last night disrobing. Continue to offer medications. Declining these. Court hearing to be scheduled. 12/21: continue tx. Pt's underwear and hospital gown covered in urine, pt instructed to change to clean gown. Pt moved away to his room, gesturing and talking to himself. Per nursing, pt only slept about 2 hrs. Pt declined medications for sleep and psychiatric illness. He pushed RN last night and was disrobing through the night in the [place]. He was spinning, becoming dizzy with unsteady gait, difficult to redirect. 12/22: continue tx. He reports I'm a super, super human being, I don't need to sleep. Pt writing on menu, disorganized to focused and complete task of electing his meals while on the unit. Per nursing, pt did not sleep last night. He was again restless, disrobing at times. He did follow this resume writer after when attempted to meet with other pts. Pt needed redirection. 12/23: smearing feces on jeffrey and floor of bathroom last night, refused to change fecally soiled socks, placing fecal material in his doorway, pushing through others to do laps, moving others as they sat in their chairs. took meds this morning for the first time this admission, sound asleep late morning. hearing scheduled for tomorrow. continue current mgmt. 12/24: refusing interview. continued disorganized behavior overnight. committed and meds ordered. 12/25: disrobing in kitchen. if you offer me meds, i have the right to punch you in the stomach. refused PO meds, IMs given as per haley's order. Reason for continued inpatient stay Substantial Risk for: harm to self, harm to others, inability to function and rapid decompensation Time Spent With Patient Time: Total time managing care of this patient today __25__ minutes.
[2022-12-25 22:50] VITALS: BP 134/83; PULSE 79; RESP 18; TEMP 36.5; O2SAT 97
[2022-12-26 06:00] VITALS: BP 142/80; PULSE 88; RESP 18; TEMP 36.6; O2SAT 97
[2022-12-26] MEDS: Haloperidol Lactate 5 MG/ML VIAL 10 MG IM (08:52)
[2022-12-26] MEDS: LORazepam 2 MG/ML VIAL IM (08:53)
--- NOTE | 2022-12-26 15:57 | HO.PSYCHPN ---
Subjective Subjective Date of Service: 12/26/22 Reason For Visit: Psychosis Interim History: madeline, not interested in interaction. says he's well enough. no complaints or requests. per staff, irritable. opting for IMs. Mental Status Exam Mental Status Exam Narrative: A&O. Pt in street clothes, adequate hygiene/ grooming. poor eye contact, attentive. No Tics or Tremors. No abnormal involuntary movements. In behavioral control but guarded. affect is flat. no SI/SIBI/HI/AVH expressed. Insight/ Judgment poor. Diagnostics Vital Signs (24Hr): Vital Signs - 24 hr 12/25/22 22:50 12/26/22 06:00 Temperature 97.7 F 97.8 F Pulse Rate 79 88 Respiratory Rate 18 18 Blood Pressure 134/83 142/80 H Pulse Oximetry 97 97 Oxygen Delivery Method Room Air Room Air BMI result Body Mass Index 27.6 Labs 12/14/22 02:33 12/15/22 09:08 Imaging Radiology Impressions: ITS Impressions Cervical Spine CT 12/14/22 08:06 IMPRESSION: 1. No acute intracranial, maxillofacial bone, or cervical abnormalities. 2. Right frontal cephalohematoma, not associated with fracture. 3. Coarse, lobulated calcification in the fourth ventricle, need to be further evaluated by MRI without and with contrast. 4. Degenerative changes in the cervical spine. Face CT 12/14/22 08:06 IMPRESSION: 1. No acute intracranial, maxillofacial bone, or cervical abnormalities. 2. Right frontal cephalohematoma, not associated with fracture. 3. Coarse, lobulated calcification in the fourth ventricle, need to be further evaluated by MRI without and with contrast. 4. Degenerative changes in the cervical spine. Head CT 12/14/22 08:06 IMPRESSION: 1. No acute intracranial, maxillofacial bone, or cervical abnormalities. 2. Right frontal cephalohematoma, not associated with fracture. 3. Coarse, lobulated calcification in the fourth ventricle, need to be further evaluated by MRI without and with contrast. 4. Degenerative changes in the cervical spine. Brain MRI 12/14/22 13:15 IMPRESSION: There is a 1.0 cm densely calcified lobulated lesion centered within the right anterior aspect of the fourth ventricle demonstrating peripheral enhancement. Differential considerations include a calcified choroid plexus cyst, choroid plexus papilloma, or intraventricular meningioma. The fourth ventricle remains patent without evidence of fourth ventricular outflow obstruction. No hydrocephalus. Generalized parenchymal volume loss and nonspecific white matter disease, likely mild chronic microangiopathy. Right frontal scalp hematoma. Medications Medications Current Medications Acetaminophen (Acetaminophen 325 Mg Tablet) 650 mg PO Q6H PRN PRN Reason: Headache/Pain Mild Scale (1-3) Al Hydroxide/Mg Hydroxide (Magnesium Hydrox/Alum Hydrox 30 Ml Oral.Susp) 30 ml PO Q6H PRN PRN Reason: Heartburn/Nausea Carbamazepine (Carbamazepine Er 200 Mg Tab.Er.12h) 200 mg PO DAILY [facility] Last Admin: 12/26/22 09:21 Dose: Not Given Carbamazepine (Carbamazepine Er 200 Mg Tab.Er.12h) 400 mg PO BEDTIME [facility] Last Admin: 12/25/22 23:05 Dose: Not Given Haloperidol Lactate (Haloperidol Lactate 5 Mg/Ml Vial) 10 mg IM BID PRN PRN Reason: refusal of meds, per [place] Last Admin: 12/26/22 08:52 Dose: 10 mg Hydroxyzine HCl (Hydroxyzine Hcl 25 Mg Tablet) 25 mg PO Q6H PRN PRN Reason: Anxiety [place] Carbonate ([place] Carbonate Er 450 Mg Tablet.Er) 900 mg PO BEDTIME [facility] Last Admin: 12/25/22 23:05 Dose: Not Given [place] Carbonate ([place] Carbonate 300 Mg Capsule) 600 mg PO DAILY [facility] Last Admin: 12/26/22 09:21 Dose: Not Given Lorazepam (Lorazepam 2 Mg/Ml Vial) 2 mg IM BID PRN PRN Reason: refusal of meds, juan abdi Last Admin: 12/26/22 08:53 Dose: 2 mg Magnesium Hydroxide (Milk Of Magnesia 30 Ml Oral.Susp) 30 ml PO DAILY PRN PRN Reason: Constipation Olanzapine (Olanzapine 10 Mg Tablet) 20 mg PO BID [facility] Last Admin: 12/26/22 09:21 Dose: Not Given Psyllium Hydrophilic Mucilloid (Psyllium Seed 3.4 Gm Powd.Pack) 3.4 gm PO DAILY [facility] Last Admin: 12/26/22 09:22 Dose: Not Given Trazodone HCl (Trazodone Hcl 50 Mg Tablet) 50 mg PO BEDTIME PRN PRN Reason: Insomnia Trazodone HCl (Trazodone Hcl 50 Mg Tablet) 50 mg PO BEDTIME MRX1 PRN PRN Reason: Insomnia Allergies Allergies Allergy/AdvReac Type Severity Reaction Status Date / Time bupropion [From Wellbutrin] Allergy Mild CAUSES Verified 12/03/22 00:30 SWOLLEN HEAD tetracycline [Tetracycline] Allergy Mild UNKNOWN Verified 12/03/22 00:30 trifluoperazine Allergy Mild UNKNOWN Verified 12/03/22 00:30 [From Stelazine] clozapine [From Clozaril] AdvReac Mild SEIZURES,NE Verified 12/03/22 00:30 UTROPENIA Assessment & Plan Assessment & Plan (1) Schizoaffective disorder, bipolar type: Status: Acute Code(s): F25.0 - Schizoaffective disorder, bipolar type Plan 12/15: offer medications. 12/16: completed commitment paperwork. defecated in paper bag and left it in the hallway, removed shirt and not responsive to direction to cover up. postured at staff attempting to enforce limits. 12/17: no change in presentation. continue current mgmt. filed for commitment. 12/18 continue tx. not taking medications. 12/20: Last night disrobing. Continue to offer medications. Declining these. Court hearing to be scheduled. 12/21: continue tx. Pt's underwear and hospital gown covered in urine, pt instructed to change to clean gown. Pt moved away to his room, gesturing and talking to himself. Per nursing, pt only slept about 2 hrs. Pt declined medications for sleep and psychiatric illness. He pushed RN last night and was disrobing through the night in the [place]. He was spinning, becoming dizzy with unsteady gait, difficult to redirect. 12/22: continue tx. He reports I'm a super, super human being, I don't need to sleep. Pt writing on menu, disorganized to focused and complete task of electing his meals while on the unit. Per nursing, pt did not sleep last night. He was again restless, disrobing at times. He did follow this clinical writer after when attempted to meet with other pts. Pt needed redirection. 12/23: smearing feces on jeffrey and floor of bathroom last night, refused to change fecally soiled socks, placing fecal material in his doorway, pushing through others to do laps, moving others as they sat in their chairs. took meds this morning for the first time this admission, sound asleep late morning. hearing scheduled for tomorrow. continue current mgmt. 12/24: refusing interview. continued disorganized behavior overnight. committed and meds ordered. 12/25: disrobing in kitchen. if you offer me meds, i have the right to punch you in the stomach. refused PO meds, IMs given as per haley's order. 12/26: opting for IMs. terse, guarded, irritable. Reason for continued inpatient stay Substantial Risk for: harm to self, harm to others, inability to function and rapid decompensation Time Spent With Patient Time: Total time managing care of this patient today ____ minutes.
[2022-12-26 22:01] VITALS: BP 130/80; PULSE 82; RESP 16; TEMP 36.3; O2SAT 97
[2022-12-26] MEDS: carBAMazepine ER 200 MG TAB.ER.12H 400 MG PO (22:47)
[2022-12-26] MEDS: Lithium Carbonate ER 450 MG TABLET.ER 900 MG PO (22:47)
[2022-12-26] MEDS: OLANZapine 10 MG TABLET 20 MG PO (22:47)
[2022-12-27 06:00] VITALS: BP 130/85; PULSE 81; RESP 16; TEMP 36.3; O2SAT 98
--- NOTE | 2022-12-27 07:26 | PC.NURSE ---
At approx. 0630 a female peer approached staff reporting that pt (Leigh Ann) had gone into her room 3 times , she reported purposefully . TW met with pt, who acknowledged that he had gone into her room, stated I was confused, I have poor short term memory because of my lack of hydration and nutrition here . Pt was reminded that he is not to go into any other room besides his own.
[2022-12-27] MEDS: carBAMazepine ER 200 MG TAB.ER.12H PO (09:16)
[2022-12-27] MEDS: OLANZapine 10 MG TABLET 20 MG PO ×2 (09:16→20:20)
[2022-12-27] MEDS: Lithium Carbonate 300 MG CAPSULE 600 MG PO (09:16)
--- NOTE | 2022-12-27 14:41 | HO.PSYCHPN ---
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 looks askance at MD, says he is doing fine and does not need MD's help anymore. MD informs him MD is assigned to work with pt the entire hospitalization and will be seeing him daily until discharge. per staff, taking meds PO as of last night. not participating in Tx, generally speaking. eating and sleeping well. Mental Status Exam Mental Status Exam Narrative: A&O. Pt in mix of street and hospital clothes, disheveled. fair eye contact, attentive. No Tics or Tremors. No abnormal involuntary movements. In behavioral control but guarded. affect is flat. no SI/SIBI/HI/AVH expressed. Insight/ Judgment poor. Diagnostics Vital Signs (24Hr): Vital Signs - 24 hr 12/26/22 22:01 12/27/22 06:00 Temperature 97.4 F 97.4 F Pulse Rate 82 81 Respiratory Rate 16 16 Blood Pressure 130/80 130/85 Pulse Oximetry 97 98 Oxygen Delivery Method Room Air Room Air BMI result Body Mass Index 27.6 Labs 12/14/22 02:33 12/15/22 09:08 Imaging Radiology Impressions: ITS Impressions Cervical Spine CT 12/14/22 08:06 IMPRESSION: 1. No acute intracranial, maxillofacial bone, or cervical abnormalities. 2. Right frontal cephalohematoma, not associated with fracture. 3. Coarse, lobulated calcification in the fourth ventricle, need to be further evaluated by MRI without and with contrast. 4. Degenerative changes in the cervical spine. Face CT 12/14/22 08:06 IMPRESSION: 1. No acute intracranial, maxillofacial bone, or cervical abnormalities. 2. Right frontal cephalohematoma, not associated with fracture. 3. Coarse, lobulated calcification in the fourth ventricle, need to be further evaluated by MRI without and with contrast. 4. Degenerative changes in the cervical spine. Head CT 12/14/22 08:06 IMPRESSION: 1. No acute intracranial, maxillofacial bone, or cervical abnormalities. 2. Right frontal cephalohematoma, not associated with fracture. 3. Coarse, lobulated calcification in the fourth ventricle, need to be further evaluated by MRI without and with contrast. 4. Degenerative changes in the cervical spine. Brain MRI 12/14/22 13:15 IMPRESSION: There is a 1.0 cm densely calcified lobulated lesion centered within the right anterior aspect of the fourth ventricle demonstrating peripheral enhancement. Differential considerations include a calcified choroid plexus cyst, choroid plexus papilloma, or intraventricular meningioma. The fourth ventricle remains patent without evidence of fourth ventricular outflow obstruction. No hydrocephalus. Generalized parenchymal volume loss and nonspecific white matter disease, likely mild chronic microangiopathy. Right frontal scalp hematoma. Medications Medications Current Medications Acetaminophen (Acetaminophen 325 Mg Tablet) 650 mg PO Q6H PRN PRN Reason: Headache/Pain Mild Scale (1-3) Al Hydroxide/Mg Hydroxide (Magnesium Hydrox/Alum Hydrox 30 Ml Oral.Susp) 30 ml PO Q6H PRN PRN Reason: Heartburn/Nausea Carbamazepine (Carbamazepine Er 200 Mg Tab.Er.12h) 200 mg PO DAILY [facility] Last Admin: 12/27/22 09:16 Dose: 200 mg Carbamazepine (Carbamazepine Er 200 Mg Tab.Er.12h) 400 mg PO BEDTIME [facility] Last Admin: 12/26/22 22:47 Dose: 400 mg Haloperidol Lactate (Haloperidol Lactate 5 Mg/Ml Vial) 10 mg IM BID PRN PRN Reason: refusal of medsjuan Last Admin: 12/26/22 08:52 Dose: 10 mg Hydroxyzine HCl (Hydroxyzine Hcl 25 Mg Tablet) 25 mg PO Q6H PRN PRN Reason: Anxiety [place] Carbonate ([place] Carbonate Er 450 Mg Tablet.Er) 900 mg PO BEDTIME [facility] Last Admin: 12/26/22 22:47 Dose: 900 mg [place] Carbonate ([place] Carbonate 300 Mg Capsule) 600 mg PO DAILY [facility] Last Admin: 12/27/22 09:16 Dose: 600 mg Lorazepam (Lorazepam 2 Mg/Ml Vial) 2 mg IM BID PRN PRN Reason: refusal of meds, juan abdi Last Admin: 12/26/22 08:53 Dose: 2 mg Magnesium Hydroxide (Milk Of Magnesia 30 Ml Oral.Susp) 30 ml PO DAILY PRN PRN Reason: Constipation Olanzapine (Olanzapine 10 Mg Tablet) 20 mg PO BID [facility] Last Admin: 12/27/22 09:16 Dose: 20 mg Psyllium Hydrophilic Mucilloid (Psyllium Seed 3.4 Gm Powd.Pack) 3.4 gm PO DAILY [facility] Last Admin: 12/27/22 09:44 Dose: Not Given Trazodone HCl (Trazodone Hcl 50 Mg Tablet) 50 mg PO BEDTIME PRN PRN Reason: Insomnia Trazodone HCl (Trazodone Hcl 50 Mg Tablet) 50 mg PO BEDTIME MRX1 PRN PRN Reason: Insomnia Allergies Allergies Allergy/AdvReac Type Severity Reaction Status Date / Time bupropion [From Wellbutrin] Allergy Mild CAUSES Verified 12/03/22 00:30 SWOLLEN HEAD tetracycline [Tetracycline] Allergy Mild UNKNOWN Verified 12/03/22 00:30 trifluoperazine Allergy Mild UNKNOWN Verified 12/03/22 00:30 [From Stelazine] clozapine [From Clozaril] AdvReac Mild SEIZURES,NE Verified 12/03/22 00:30 UTROPENIA Assessment & Plan Assessment & Plan (1) Schizoaffective disorder, bipolar type: Status: Acute Code(s): F25.0 - Schizoaffective disorder, bipolar type Plan 12/15: offer medications. 12/16: completed commitment paperwork. defecated in paper bag and left it in the hallway, removed shirt and not responsive to direction to cover up. postured at staff attempting to enforce limits. 12/17: no change in presentation. continue current mgmt. filed for commitment. 12/18 continue tx. not taking medications. 12/20: Last night disrobing. Continue to offer medications. Declining these. Court hearing to be scheduled. 12/21: continue tx. Pt's underwear and hospital gown covered in urine, pt instructed to change to clean gown. Pt moved away to his room, gesturing and talking to himself. Per nursing, pt only slept about 2 hrs. Pt declined medications for sleep and psychiatric illness. He pushed RN last night and was disrobing through the night in the [place]. He was spinning, becoming dizzy with unsteady gait, difficult to redirect. 12/22: continue tx. He reports I'm a super, super human being, I don't need to sleep. Pt writing on menu, disorganized to focused and complete task of electing his meals while on the unit. Per nursing, pt did not sleep last night. He was again restless, disrobing at times. He did follow this lyric writer after when attempted to meet with other pts. Pt needed redirection. 12/23: smearing feces on jeffrey and floor of bathroom last night, refused to change fecally soiled socks, placing fecal material in his doorway, pushing through others to do laps, moving others as they sat in their chairs. took meds this morning for the first time this admission, sound asleep late morning. hearing scheduled for tomorrow. continue current mgmt. 12/24: refusing interview. continued disorganized behavior overnight. committed and meds ordered. 12/25: disrobing in kitchen. if you offer me meds, i have the right to punch you in the stomach. refused PO meds, IMs given as per haley's order. 12/26: opting for IMs. terse, guarded, irritable. 12/27: remains terse and guarded, but taking meds PO as of last NOC. Reason for continued inpatient stay Substantial Risk for: harm to self, harm to others, inability to function and rapid decompensation Time Spent With Patient Time: Total time managing care of this patient today ____ minutes.
[2022-12-27] MEDS: carBAMazepine ER 200 MG TAB.ER.12H 400 MG PO (20:20)
[2022-12-27] MEDS: Lithium Carbonate ER 450 MG TABLET.ER 900 MG PO (20:20)
[2022-12-27 20:23] VITALS: BP 135/77; PULSE 78; TEMP 36.6; O2SAT 99
[2022-12-28 08:00] VITALS: BP 141/79; PULSE 99; RESP 18; TEMP 37; O2SAT 99
[2022-12-28] MEDS: Lithium Carbonate 300 MG CAPSULE 600 MG PO (08:36)
[2022-12-28] MEDS: OLANZapine 10 MG TABLET 20 MG PO ×2 (08:37→20:09)
[2022-12-28] MEDS: carBAMazepine ER 200 MG TAB.ER.12H PO (08:37)
--- NOTE | 2022-12-28 14:06 | HO.PSYCHPN ---
Subjective Subjective Date of Service: 12/28/22 Reason For Visit: Psychosis Interim History: madeline, says he is doing well, eyes MD warily and moves away. per staff, flat, guarded, monotone. napped yesterday. urinated on deck of cards and gave the deck to staff. wandering into a particular female's room multiple times. Mental Status Exam Mental Status Exam Narrative: A&O. Pt in street clothes, adequately dressed and groomed. fair eye contact, attentive. No Tics or Tremors. No abnormal involuntary movements. In behavioral control but guarded. affect is flat. no SI/SIBI/HI/AVH expressed. Insight/ Judgment poor. Diagnostics Vital Signs (24Hr): Vital Signs - 24 hr 12/27/22 20:23 12/28/22 08:00 Temperature 97.8 F 98.6 F Pulse Rate 78 99 Respiratory Rate 18 Blood Pressure 135/77 141/79 H Pulse Oximetry 99 99 Oxygen Delivery Method Room Air Room Air BMI result Body Mass Index 27.6 Labs 12/14/22 02:33 12/15/22 09:08 Imaging Radiology Impressions: ITS Impressions Cervical Spine CT 12/14/22 08:06 IMPRESSION: 1. No acute intracranial, maxillofacial bone, or cervical abnormalities. 2. Right frontal cephalohematoma, not associated with fracture. 3. Coarse, lobulated calcification in the fourth ventricle, need to be further evaluated by MRI without and with contrast. 4. Degenerative changes in the cervical spine. Face CT 12/14/22 08:06 IMPRESSION: 1. No acute intracranial, maxillofacial bone, or cervical abnormalities. 2. Right frontal cephalohematoma, not associated with fracture. 3. Coarse, lobulated calcification in the fourth ventricle, need to be further evaluated by MRI without and with contrast. 4. Degenerative changes in the cervical spine. Head CT 12/14/22 08:06 IMPRESSION: 1. No acute intracranial, maxillofacial bone, or cervical abnormalities. 2. Right frontal cephalohematoma, not associated with fracture. 3. Coarse, lobulated calcification in the fourth ventricle, need to be further evaluated by MRI without and with contrast. 4. Degenerative changes in the cervical spine. Brain MRI 12/14/22 13:15 IMPRESSION: There is a 1.0 cm densely calcified lobulated lesion centered within the right anterior aspect of the fourth ventricle demonstrating peripheral enhancement. Differential considerations include a calcified choroid plexus cyst, choroid plexus papilloma, or intraventricular meningioma. The fourth ventricle remains patent without evidence of fourth ventricular outflow obstruction. No hydrocephalus. Generalized parenchymal volume loss and nonspecific white matter disease, likely mild chronic microangiopathy. Right frontal scalp hematoma. Medications Medications Current Medications Acetaminophen (Acetaminophen 325 Mg Tablet) 650 mg PO Q6H PRN PRN Reason: Headache/Pain Mild Scale (1-3) Al Hydroxide/Mg Hydroxide (Magnesium Hydrox/Alum Hydrox 30 Ml Oral.Susp) 30 ml PO Q6H PRN PRN Reason: Heartburn/Nausea Carbamazepine (Carbamazepine Er 200 Mg Tab.Er.12h) 200 mg PO DAILY [facility] Last Admin: 12/28/22 08:37 Dose: 200 mg Carbamazepine (Carbamazepine Er 200 Mg Tab.Er.12h) 400 mg PO BEDTIME [facility] Last Admin: 12/27/22 20:20 Dose: 400 mg Haloperidol Lactate (Haloperidol Lactate 5 Mg/Ml Vial) 10 mg IM BID PRN PRN Reason: refusal of medsjuan Last Admin: 12/26/22 08:52 Dose: 10 mg Hydroxyzine HCl (Hydroxyzine Hcl 25 Mg Tablet) 25 mg PO Q6H PRN PRN Reason: Anxiety [place] Carbonate ([place] Carbonate Er 450 Mg Tablet.Er) 900 mg PO BEDTIME [facility] Last Admin: 12/27/22 20:20 Dose: 900 mg [place] Carbonate ([place] Carbonate 300 Mg Capsule) 600 mg PO DAILY [facility] Last Admin: 12/28/22 08:36 Dose: 600 mg Lorazepam (Lorazepam 2 Mg/Ml Vial) 2 mg IM BID PRN PRN Reason: refusal of meds, juan abdi Last Admin: 12/26/22 08:53 Dose: 2 mg Magnesium Hydroxide (Milk Of Magnesia 30 Ml Oral.Susp) 30 ml PO DAILY PRN PRN Reason: Constipation Olanzapine (Olanzapine 10 Mg Tablet) 20 mg PO BID [facility] Last Admin: 12/28/22 08:37 Dose: 20 mg Psyllium Hydrophilic Mucilloid (Psyllium Seed 3.4 Gm Powd.Pack) 3.4 gm PO DAILY [facility] Last Admin: 12/28/22 08:37 Dose: 3.4 gm Trazodone HCl (Trazodone Hcl 50 Mg Tablet) 50 mg PO BEDTIME PRN PRN Reason: Insomnia Trazodone HCl (Trazodone Hcl 50 Mg Tablet) 50 mg PO BEDTIME MRX1 PRN PRN Reason: Insomnia Allergies Allergies Allergy/AdvReac Type Severity Reaction Status Date / Time bupropion [From Wellbutrin] Allergy Mild CAUSES Verified 12/03/22 00:30 SWOLLEN HEAD tetracycline [Tetracycline] Allergy Mild UNKNOWN Verified 12/03/22 00:30 trifluoperazine Allergy Mild UNKNOWN Verified 12/03/22 00:30 [From Stelazine] clozapine [From Clozaril] AdvReac Mild SEIZURES,NE Verified 12/03/22 00:30 UTROPENIA Assessment & Plan Assessment & Plan (1) Schizoaffective disorder, bipolar type: Status: Acute Code(s): F25.0 - Schizoaffective disorder, bipolar type Plan 12/15: offer medications. 12/16: completed commitment paperwork. defecated in paper bag and left it in the hallway, removed shirt and not responsive to direction to cover up. postured at staff attempting to enforce limits. 12/17: no change in presentation. continue current mgmt. filed for commitment. 12/18 continue tx. not taking medications. 12/20: Last night disrobing. Continue to offer medications. Declining these. Court hearing to be scheduled. 12/21: continue tx. Pt's underwear and hospital gown covered in urine, pt instructed to change to clean gown. Pt moved away to his room, gesturing and talking to himself. Per nursing, pt only slept about 2 hrs. Pt declined medications for sleep and psychiatric illness. He pushed RN last night and was disrobing through the night in the [place]. He was spinning, becoming dizzy with unsteady gait, difficult to redirect. 12/22: continue tx. He reports I'm a super, super human being, I don't need to sleep. Pt writing on menu, disorganized to focused and complete task of electing his meals while on the unit. Per nursing, pt did not sleep last night. He was again restless, disrobing at times. He did follow this insurance underwriter sales after when attempted to meet with other pts. Pt needed redirection. 12/23: smearing feces on jeffrey and floor of bathroom last night, refused to change fecally soiled socks, placing fecal material in his doorway, pushing through others to do laps, moving others as they sat in their chairs. took meds this morning for the first time this admission, sound asleep late morning. hearing scheduled for tomorrow. continue current mgmt. 12/24: refusing interview. continued disorganized behavior overnight. committed and meds ordered. 12/25: disrobing in kitchen. if you offer me meds, i have the right to punch you in the stomach. refused PO meds, IMs given as per haley's order. 12/26: opting for IMs. terse, guarded, irritable. 12/27: remains terse and guarded, but taking meds PO as of last NOC. 12/28: no change in presentation or treatment. Reason for continued inpatient stay Substantial Risk for: harm to self, harm to others, inability to function and rapid decompensation Time Spent With Patient Time: Total time managing care of this patient today ____ minutes.
[2022-12-28] MEDS: Lithium Carbonate ER 450 MG TABLET.ER 900 MG PO (20:09)
[2022-12-28] MEDS: carBAMazepine ER 200 MG TAB.ER.12H 400 MG PO (20:10)
[2022-12-28 20:13] VITALS: BP 138/88; PULSE 86; TEMP 36.6; O2SAT 98
[2022-12-29 08:00] VITALS: BP 127/72; PULSE 75; RESP 18; TEMP 36.6; O2SAT 98
[2022-12-29] MEDS: LORazepam 2 MG/ML VIAL IM ×2 (09:03→21:32)
[2022-12-29] MEDS: Haloperidol Lactate 5 MG/ML VIAL 10 MG IM ×2 (09:03→21:33)
--- NOTE | 2022-12-29 09:07 | PC.NURSE ---
Pt refused am med x2 , Pt refused. Swiping meds off top of my wow. IM meds given per court order. Pt tolerated well .
--- NOTE | 2022-12-29 12:59 | P.PNPSI_ITS ---
Subjective Subjective Date of Service: 12/29/22 Reason For Visit: Psychosis Interim History: found sleeping in his room, rousable. states medication is not good for anyone. MD reminded pt of court order and encouraged him to take medications as prescribed. per staff, entering female's room the past 48 hours. dropped clean towels on her floor and said he had done so because they're dangerous. appeared to have urinated while seated in his chair. slept about 0230 until 0400 last night. put his clothes in the toilet. coming out of his room with no shirt on. pushed meds out of RN's hand as she was attempting to administer them. refused medication and received IM instead this morning. Mental Status Exam Mental Status Exam Narrative: A&O. Pt in street clothes, adequately dressed and groomed. fair eye contact, attentive. No Tics or Tremors. No abnormal involuntary movements. In behavioral control but guarded. affect is flat. no SI/SIBI/HI/AVH expressed. Insight/ Judgment poor. Diagnostics Vital Signs (24Hr): Vital Signs - 24 hr 12/28/22 20:13 12/29/22 08:00 Temperature 97.8 F 97.9 F Pulse Rate 86 75 Respiratory Rate 18 Blood Pressure 138/88 127/72 Pulse Oximetry 98 98 Oxygen Delivery Method Room Air Room Air BMI result Body Mass Index 27.6 Labs 12/14/22 02:33 12/15/22 09:08 Imaging Radiology Impressions: ITS Impressions Cervical Spine CT 12/14/22 08:06 IMPRESSION: 1. No acute intracranial, maxillofacial bone, or cervical abnormalities. 2. Right frontal cephalohematoma, not associated with fracture. 3. Coarse, lobulated calcification in the fourth ventricle, need to be further evaluated by MRI without and with contrast. 4. Degenerative changes in the cervical spine. Face CT 12/14/22 08:06 IMPRESSION: 1. No acute intracranial, maxillofacial bone, or cervical abnormalities. 2. Right frontal cephalohematoma, not associated with fracture. 3. Coarse, lobulated calcification in the fourth ventricle, need to be further evaluated by MRI without and with contrast. 4. Degenerative changes in the cervical spine. Head CT 12/14/22 08:06 IMPRESSION: 1. No acute intracranial, maxillofacial bone, or cervical abnormalities. 2. Right frontal cephalohematoma, not associated with fracture. 3. Coarse, lobulated calcification in the fourth ventricle, need to be further evaluated by MRI without and with contrast. 4. Degenerative changes in the cervical spine. Brain MRI 12/14/22 13:15 IMPRESSION: There is a 1.0 cm densely calcified lobulated lesion centered within the right anterior aspect of the fourth ventricle demonstrating peripheral enhancement. Differential considerations include a calcified choroid plexus cyst, choroid plexus papilloma, or intraventricular meningioma. The fourth ventricle remains patent without evidence of fourth ventricular outflow obstruction. No hydrocephalus. Generalized parenchymal volume loss and nonspecific white matter disease, likely mild chronic microangiopathy. Right frontal scalp hematoma. Medications Medications Current Medications Acetaminophen (Acetaminophen 325 Mg Tablet) 650 mg PO Q6H PRN PRN Reason: Headache/Pain Mild Scale (1-3) Al Hydroxide/Mg Hydroxide (Magnesium Hydrox/Alum Hydrox 30 Ml Oral.Susp) 30 ml PO Q6H PRN PRN Reason: Heartburn/Nausea Carbamazepine (Carbamazepine Er 200 Mg Tab.Er.12h) 200 mg PO DAILY [facility] Last Admin: 12/29/22 09:02 Dose: Not Given Carbamazepine (Carbamazepine Er 200 Mg Tab.Er.12h) 400 mg PO BEDTIME [facility] Last Admin: 12/28/22 20:10 Dose: 400 mg Haloperidol Lactate (Haloperidol Lactate 5 Mg/Ml Vial) 10 mg IM BID PRN PRN Reason: refusal of medsjuan Last Admin: 12/29/22 09:03 Dose: 10 mg Hydroxyzine HCl (Hydroxyzine Hcl 25 Mg Tablet) 25 mg PO Q6H PRN PRN Reason: Anxiety [place] Carbonate ([place] Carbonate Er 450 Mg Tablet.Er) 900 mg PO BEDTIME [facility] Last Admin: 12/28/22 20:09 Dose: 900 mg [place] Carbonate ([place] Carbonate 300 Mg Capsule) 600 mg PO DAILY [facility] 234 [facility]S [facility] Last Admin: 12/29/22 09:02 Dose: Not Given Lorazepam (Lorazepam 2 Mg/Ml Vial) 2 mg IM BID PRN PRN Reason: refusal of meds, juan abdi Last Admin: 12/29/22 09:03 Dose: 2 mg Magnesium Hydroxide (Milk Of Magnesia 30 Ml Oral.Susp) 30 ml PO DAILY PRN PRN Reason: Constipation Olanzapine (Olanzapine 10 Mg Tablet) 20 mg PO BID [facility] 234 [facility]S [facility] Last Admin: 12/29/22 09:03 Dose: Not Given Psyllium Hydrophilic Mucilloid (Psyllium Seed 3.4 Gm Powd.Pack) 3.4 gm PO DAILY [facility] Last Admin: 12/29/22 09:03 Dose: Not Given Trazodone HCl (Trazodone Hcl 50 Mg Tablet) 50 mg PO BEDTIME PRN PRN Reason: Insomnia Trazodone HCl (Trazodone Hcl 50 Mg Tablet) 50 mg PO BEDTIME MRX1 PRN PRN Reason: Insomnia Allergies Allergies Allergy/AdvReac Type Severity Reaction Status Date / Time bupropion [From Wellbutrin] Allergy Mild CAUSES Verified 12/03/22 00:30 SWOLLEN HEAD tetracycline [Tetracycline] Allergy Mild UNKNOWN Verified 12/03/22 00:30 trifluoperazine Allergy Mild UNKNOWN Verified 12/03/22 00:30 [From Stelazine] clozapine [From Clozaril] AdvReac Mild SEIZURES,NE Verified 12/03/22 00:30 UTROPENIA Assessment & Plan Assessment & Plan (1) Schizoaffective disorder, bipolar type: Status: Acute Code(s): F25.0 - Schizoaffective disorder, bipolar type Plan 12/15: offer medications. 12/16: completed commitment paperwork. defecated in paper bag and left it in the hallway, removed shirt and not responsive to direction to cover up. postured at staff attempting to enforce limits. 12/17: no change in presentation. continue current mgmt. filed for commitment. 12/18 continue tx. not taking medications. 12/20: Last night disrobing. Continue to offer medications. Declining these. Court hearing to be scheduled. 12/21: continue tx. Pt's underwear and hospital gown covered in urine, pt instructed to change to clean gown. Pt moved away to his room, gesturing and talking to himself. Per nursing, pt only slept about 2 hrs. Pt declined medications for sleep and psychiatric illness. He pushed RN last night and was disrobing through the night in the [place]. He was spinning, becoming dizzy with unsteady gait, difficult to redirect. 12/22: continue tx. He reports I'm a super, super human being, I don't need to sleep. Pt writing on menu, disorganized to focused and complete task of electing his meals while on the unit. Per nursing, pt did not sleep last night. He was again restless, disrobing at times. He did follow this typewriters functional tester after when attempted to meet with other pts. Pt needed redirection. 12/23: smearing feces on jeffrey and floor of bathroom last night, refused to change fecally soiled socks, placing fecal material in his doorway, pushing through others to do laps, moving others as they sat in their chairs. took meds this morning for the first time this admission, sound asleep late morning. hearing scheduled for tomorrow. continue current mgmt. 12/24: refusing interview. continued disorganized behavior overnight. committed and meds ordered. 12/25: disrobing in kitchen. if you offer me meds, i have the right to punch you in the stomach. refused PO meds, IMs given as per haley's order. 12/26: opting for IMs. terse, guarded, irritable. 12/27: remains terse and guarded, but taking meds PO as of last NOC. 12/28: no change in presentation or treatment. 12/29: after several days of PO meds, refused again this morning and got IMs. wandering into particular female peer's room repeatedly, putting his clothes in the toilet, urinating while seated at his desk, knocked meds out of RN's hand. put pt on 1:1 for safety, otherwise continue current mgmt. Reason for continued inpatient stay Substantial Risk for: harm to self, harm to others, inability to function and rapid decompensation Time Spent With Patient Time: Total time managing care of this patient today _25___ minutes.
[2022-12-29 19:40] VITALS: BP 127/85; PULSE 88; RESP 18; TEMP 36.6; O2SAT 99
[2022-12-30 08:00] VITALS: BP 148/87; PULSE 96; RESP 18; TEMP 36.6; O2SAT 97
[2022-12-30] MEDS: Haloperidol Lactate 5 MG/ML VIAL 10 MG IM ×2 (08:54→21:28)
--- NOTE | 2022-12-30 14:23 | HO.PSYCHPN ---
Subjective Subjective Date of Service: 12/30/22 Reason For Visit: Psychosis Interim History: no change in presentation. terse, avoidant, minimally responsive. per staff, refused PO meds yesterday morning as well as last NOC. got IMs. Mental Status Exam Mental Status Exam Narrative: A&O. Pt in street clothes, adequately dressed and groomed. fair eye contact, attentive. No Tics or Tremors. No abnormal involuntary movements. In behavioral control but guarded. affect is flat. no SI/SIBI/HI/AVH expressed. Insight/ Judgment poor. Diagnostics Vital Signs (24Hr): Vital Signs - 24 hr 12/29/22 19:40 12/30/22 08:00 Temperature 97.8 F 97.8 F Pulse Rate 88 96 Respiratory Rate 18 18 Blood Pressure 127/85 148/87 H Pulse Oximetry 99 97 Oxygen Delivery Method Room Air Room Air BMI result Body Mass Index 27.6 Labs 12/14/22 02:33 12/15/22 09:08 Imaging Radiology Impressions: ITS Impressions Cervical Spine CT 12/14/22 08:06 IMPRESSION: 1. No acute intracranial, maxillofacial bone, or cervical abnormalities. 2. Right frontal cephalohematoma, not associated with fracture. 3. Coarse, lobulated calcification in the fourth ventricle, need to be further evaluated by MRI without and with contrast. 4. Degenerative changes in the cervical spine. Face CT 12/14/22 08:06 IMPRESSION: 1. No acute intracranial, maxillofacial bone, or cervical abnormalities. 2. Right frontal cephalohematoma, not associated with fracture. 3. Coarse, lobulated calcification in the fourth ventricle, need to be further evaluated by MRI without and with contrast. 4. Degenerative changes in the cervical spine. Head CT 12/14/22 08:06 IMPRESSION: 1. No acute intracranial, maxillofacial bone, or cervical abnormalities. 2. Right frontal cephalohematoma, not associated with fracture. 3. Coarse, lobulated calcification in the fourth ventricle, need to be further evaluated by MRI without and with contrast. 4. Degenerative changes in the cervical spine. Brain MRI 12/14/22 13:15 IMPRESSION: There is a 1.0 cm densely calcified lobulated lesion centered within the right anterior aspect of the fourth ventricle demonstrating peripheral enhancement. Differential considerations include a calcified choroid plexus cyst, choroid plexus papilloma, or intraventricular meningioma. The fourth ventricle remains patent without evidence of fourth ventricular outflow obstruction. No hydrocephalus. Generalized parenchymal volume loss and nonspecific white matter disease, likely mild chronic microangiopathy. Right frontal scalp hematoma. Medications Medications Current Medications Acetaminophen (Acetaminophen 325 Mg Tablet) 650 mg PO Q6H PRN PRN Reason: Headache/Pain Mild Scale (1-3) Al Hydroxide/Mg Hydroxide (Magnesium Hydrox/Alum Hydrox 30 Ml Oral.Susp) 30 ml PO Q6H PRN PRN Reason: Heartburn/Nausea Carbamazepine (Carbamazepine Er 200 Mg Tab.Er.12h) 200 mg PO DAILY [facility] Last Admin: 12/30/22 09:15 Dose: Not Given Carbamazepine (Carbamazepine Er 200 Mg Tab.Er.12h) 400 mg PO BEDTIME [facility] Last Admin: 12/29/22 21:38 Dose: Not Given Haloperidol Lactate (Haloperidol Lactate 5 Mg/Ml Vial) 10 mg IM BID PRN PRN Reason: refusal of meds, per [place] Last Admin: 12/30/22 08:54 Dose: 10 mg Hydroxyzine HCl (Hydroxyzine Hcl 25 Mg Tablet) 25 mg PO Q6H PRN PRN Reason: Anxiety [place] Carbonate ([place] Carbonate Er 450 Mg Tablet.Er) 900 mg PO BEDTIME [facility] Last Admin: 12/29/22 21:38 Dose: Not Given [place] Carbonate ([place] Carbonate 300 Mg Capsule) 600 mg PO DAILY [facility] Last Admin: 12/30/22 09:15 Dose: Not Given Magnesium Hydroxide (Milk Of Magnesia 30 Ml Oral.Susp) 30 ml PO DAILY PRN PRN Reason: Constipation Olanzapine (Olanzapine 10 Mg Tablet) 20 mg PO BID [facility] Last Admin: 12/30/22 09:15 Dose: Not Given Psyllium Hydrophilic Mucilloid (Psyllium Seed 3.4 Gm Powd.Pack) 3.4 gm PO DAILY [facility] Last Admin: 12/30/22 09:15 Dose: Not Given Trazodone HCl (Trazodone Hcl 50 Mg Tablet) 50 mg PO BEDTIME PRN PRN Reason: Insomnia Trazodone HCl (Trazodone Hcl 50 Mg Tablet) 50 mg PO BEDTIME MRX1 PRN PRN Reason: Insomnia Allergies Allergies Allergy/AdvReac Type Severity Reaction Status Date / Time bupropion [From Wellbutrin] Allergy Mild CAUSES Verified 12/03/22 00:30 SWOLLEN HEAD tetracycline [Tetracycline] Allergy Mild UNKNOWN Verified 12/03/22 00:30 trifluoperazine Allergy Mild UNKNOWN Verified 12/03/22 00:30 [From Stelazine] clozapine [From Clozaril] AdvReac Mild SEIZURES,NE Verified 12/03/22 00:30 UTROPENIA Assessment & Plan Assessment & Plan (1) Schizoaffective disorder, bipolar type: Status: Acute Code(s): F25.0 - Schizoaffective disorder, bipolar type Plan 12/15: offer medications. 12/16: completed commitment paperwork. defecated in paper bag and left it in the hallway, removed shirt and not responsive to direction to cover up. postured at staff attempting to enforce limits. 12/17: no change in presentation. continue current mgmt. filed for commitment. 12/18 continue tx. not taking medications. 12/20: Last night disrobing. Continue to offer medications. Declining these. Court hearing to be scheduled. 12/21: continue tx. Pt's underwear and hospital gown covered in urine, pt instructed to change to clean gown. Pt moved away to his room, gesturing and talking to himself. Per nursing, pt only slept about 2 hrs. Pt declined medications for sleep and psychiatric illness. He pushed RN last night and was disrobing through the night in the [place]. He was spinning, becoming dizzy with unsteady gait, difficult to redirect. 12/22: continue tx. He reports I'm a super, super human being, I don't need to sleep. Pt writing on menu, disorganized to focused and complete task of electing his meals while on the unit. Per nursing, pt did not sleep last night. He was again restless, disrobing at times. He did follow this business writer after when attempted to meet with other pts. Pt needed redirection. 12/23: smearing feces on jeffrey and floor of bathroom last night, refused to change fecally soiled socks, placing fecal material in his doorway, pushing through others to do laps, moving others as they sat in their chairs. took meds this morning for the first time this admission, sound asleep late morning. hearing scheduled for tomorrow. continue current mgmt. 12/24: refusing interview. continued disorganized behavior overnight. committed and meds ordered. 12/25: disrobing in kitchen. if you offer me meds, i have the right to punch you in the stomach. refused PO meds, IMs given as per haley's order. 12/26: opting for IMs. terse, guarded, irritable. 12/27: remains terse and guarded, but taking meds PO as of last NOC. 12/28: no change in presentation or treatment. 12/29: after several days of PO meds, refused again this morning and got IMs. wandering into particular female peer's room repeatedly, putting his clothes in the toilet, urinating while seated at his desk, knocked meds out of RN's hand. put pt on 1:1 for safety, otherwise continue current mgmt. 12/30: IMs again last night for PO refusal. no change in presentation today - terse, avoidant, glaring, minimally responsive. Reason for continued inpatient stay Substantial Risk for: harm to self, harm to others, inability to function and rapid decompensation Time Spent With Patient Time: Total time managing care of this patient today ____ minutes.
[2022-12-30 20:40] VITALS: BP 138/76; PULSE 88; RESP 18; TEMP 36.6; O2SAT 96
[2022-12-30] MEDS: LORazepam 2 MG/ML VIAL IM (21:28)
[2022-12-30 22:39] VITALS: TEMP -17.7; TEMP 0
[2022-12-31 07:00] VITALS: BMI 27.7
[2022-12-31] MEDS: Haloperidol Lactate 5 MG/ML VIAL 10 MG IM ×2 (08:28→23:10)
[2022-12-31] MEDS: LORazepam 2 MG/ML VIAL IM ×2 (08:35→23:10)
[2022-12-31 08:36] VITALS: BP 115/76; PULSE 98; RESP 16; TEMP 36.6; O2SAT 96
--- NOTE | 2022-12-31 08:43 | HO.PSYCHPN ---
Subjective Subjective Date of Service: 12/31/22 Reason For Visit: Psychosis Interim History: found sleeping in chair in front of TV. rousable to loud voice. reports he received IMs this morning. declines to lie down in his bed, believing the seated position will allow the saltpeter and stelazine to dimas out from his body more efficiently. per staff, delusional, telling staff, if you don't do [insert task here], you're going to hell. declining PO meds, taking IMs. sleeping adequately. Mental Status Exam Mental Status Exam Narrative: sedated in chair, rousable. Pt in street clothes, disheveled. fair eye contact, attentive. No Tics or Tremors. No abnormal involuntary movements. In behavioral control but guarded. affect is flat. no SI/SIBI/HI/AVH expressed. Insight/ Judgment poor. Diagnostics Vital Signs (24Hr): Vital Signs - 24 hr 12/30/22 20:40 12/30/22 22:39 12/31/22 08:36 Temperature 97.8 F 0 F L 97.9 F Pulse Rate 88 98 Respiratory Rate 18 16 Blood Pressure 138/76 115/76 Pulse Oximetry 96 96 Oxygen Delivery Method Room Air Room Air BMI result Body Mass Index 27.6 Labs 12/14/22 02:33 12/15/22 09:08 Imaging Radiology Impressions: ITS Impressions Cervical Spine CT 12/14/22 08:06 IMPRESSION: 1. No acute intracranial, maxillofacial bone, or cervical abnormalities. 2. Right frontal cephalohematoma, not associated with fracture. 3. Coarse, lobulated calcification in the fourth ventricle, need to be further evaluated by MRI without and with contrast. 4. Degenerative changes in the cervical spine. Face CT 12/14/22 08:06 IMPRESSION: 1. No acute intracranial, maxillofacial bone, or cervical abnormalities. 2. Right frontal cephalohematoma, not associated with fracture. 3. Coarse, lobulated calcification in the fourth ventricle, need to be further evaluated by MRI without and with contrast. 4. Degenerative changes in the cervical spine. Head CT 12/14/22 08:06 IMPRESSION: 1. No acute intracranial, maxillofacial bone, or cervical abnormalities. 2. Right frontal cephalohematoma, not associated with fracture. 3. Coarse, lobulated calcification in the fourth ventricle, need to be further evaluated by MRI without and with contrast. 4. Degenerative changes in the cervical spine. Brain MRI 12/14/22 13:15 IMPRESSION: There is a 1.0 cm densely calcified lobulated lesion centered within the right anterior aspect of the fourth ventricle demonstrating peripheral enhancement. Differential considerations include a calcified choroid plexus cyst, choroid plexus papilloma, or intraventricular meningioma. The fourth ventricle remains patent without evidence of fourth ventricular outflow obstruction. No hydrocephalus. Generalized parenchymal volume loss and nonspecific white matter disease, likely mild chronic microangiopathy. Right frontal scalp hematoma. Medications Medications Current Medications Acetaminophen (Acetaminophen 325 Mg Tablet) 650 mg PO Q6H PRN PRN Reason: Headache/Pain Mild Scale (1-3) Al Hydroxide/Mg Hydroxide (Magnesium Hydrox/Alum Hydrox 30 Ml Oral.Susp) 30 ml PO Q6H PRN PRN Reason: Heartburn/Nausea Carbamazepine (Carbamazepine Er 200 Mg Tab.Er.12h) 200 mg PO DAILY [facility] Last Admin: 12/31/22 08:36 Dose: Not Given Carbamazepine (Carbamazepine Er 200 Mg Tab.Er.12h) 400 mg PO BEDTIME [facility] Last Admin: 12/30/22 21:32 Dose: Not Given Haloperidol Lactate (Haloperidol Lactate 5 Mg/Ml Vial) 10 mg IM BID PRN PRN Reason: refusal of meds, juan abdi Last Admin: 12/31/22 08:28 Dose: 10 mg Hydroxyzine HCl (Hydroxyzine Hcl 25 Mg Tablet) 25 mg PO Q6H PRN PRN Reason: Anxiety [place] Carbonate ([place] Carbonate Er 450 Mg Tablet.Er) 900 mg PO BEDTIME [facility] Last Admin: 12/30/22 21:32 Dose: Not Given [place] Carbonate ([place] Carbonate 300 Mg Capsule) 600 mg PO DAILY [facility] Last Admin: 12/31/22 08:36 Dose: Not Given Lorazepam (Lorazepam 2 Mg/Ml Vial) 2 mg IM BID PRN PRN Reason: refusal of medsjuan Last Admin: 12/31/22 08:35 Dose: 2 mg Magnesium Hydroxide (Milk Of Magnesia 30 Ml Oral.Susp) 30 ml PO DAILY PRN PRN Reason: Constipation Olanzapine (Olanzapine 10 Mg Tablet) 20 mg PO BID [facility] Last Admin: 12/31/22 08:36 Dose: Not Given Psyllium Hydrophilic Mucilloid (Psyllium Seed 3.4 Gm Powd.Pack) 3.4 gm PO DAILY [facility] Last Admin: 12/31/22 08:36 Dose: Not Given Trazodone HCl (Trazodone Hcl 50 Mg Tablet) 50 mg PO BEDTIME PRN PRN Reason: Insomnia Trazodone HCl (Trazodone Hcl 50 Mg Tablet) 50 mg PO BEDTIME MRX1 PRN PRN Reason: Insomnia Allergies Allergies Allergy/AdvReac Type Severity Reaction Status Date / Time bupropion [From Wellbutrin] Allergy Mild CAUSES Verified 12/03/22 00:30 SWOLLEN HEAD tetracycline [Tetracycline] Allergy Mild UNKNOWN Verified 12/03/22 00:30 trifluoperazine Allergy Mild UNKNOWN Verified 12/03/22 00:30 [From Stelazine] clozapine [From Clozaril] AdvReac Mild SEIZURES,NE Verified 12/03/22 00:30 UTROPENIA Assessment & Plan Assessment & Plan (1) Schizoaffective disorder, bipolar type: Status: Acute Code(s): F25.0 - Schizoaffective disorder, bipolar type Plan 12/15: offer medications. 12/16: completed commitment paperwork. defecated in paper bag and left it in the hallway, removed shirt and not responsive to direction to cover up. postured at staff attempting to enforce limits. 12/17: no change in presentation. continue current mgmt. filed for commitment. 12/18 continue tx. not taking medications. 12/20: Last night disrobing. Continue to offer medications. Declining these. Court hearing to be scheduled. 12/21: continue tx. Pt's underwear and hospital gown covered in urine, pt instructed to change to clean gown. Pt moved away to his room, gesturing and talking to himself. Per nursing, pt only slept about 2 hrs. Pt declined medications for sleep and psychiatric illness. He pushed RN last night and was disrobing through the night in the [place]. He was spinning, becoming dizzy with unsteady gait, difficult to redirect. 12/22: continue tx. He reports I'm a super, super human being, I don't need to sleep. Pt writing on menu, disorganized to focused and complete task of electing his meals while on the unit. Per nursing, pt did not sleep last night. He was again restless, disrobing at times. He did follow this senior copywriter after when attempted to meet with other pts. Pt needed redirection. 12/23: smearing feces on jeffrey and floor of bathroom last night, refused to change fecally soiled socks, placing fecal material in his doorway, pushing through others to do laps, moving others as they sat in their chairs. took meds this morning for the first time this admission, sound asleep late morning. hearing scheduled for tomorrow. continue current mgmt. 12/24: refusing interview. continued disorganized behavior overnight. committed and meds ordered. 12/25: disrobing in kitchen. if you offer me meds, i have the right to punch you in the stomach. refused PO meds, IMs given as per haley's order. 12/26: opting for IMs. terse, guarded, irritable. 12/27: remains terse and guarded, but taking meds PO as of last NOC. 12/28: no change in presentation or treatment. 12/29: after several days of PO meds, refused again this morning and got IMs. wandering into particular female peer's room repeatedly, putting his clothes in the toilet, urinating while seated at his desk, knocked meds out of RN's hand. put pt on 1:1 for safety, otherwise continue current mgmt. 12/30: IMs again last night for PO refusal. no change in presentation today - terse, avoidant, glaring, minimally responsive. 12/31: still refusing PO meds, getting IMs. no change in presentation. Reason for continued inpatient stay Substantial Risk for: harm to self, harm to others and rapid decompensation Time Spent With Patient Time: Total time managing care of this patient today ____ minutes.
[2022-12-31 22:35] VITALS: RESP 18
[2023-01-01 08:02] VITALS: BP 129/70; PULSE 78; RESP 185; TEMP 36.7; O2SAT 95
[2023-01-01] MEDS: LORazepam 2 MG/ML VIAL IM ×2 (10:03→21:30)
[2023-01-01] MEDS: Haloperidol Lactate 5 MG/ML VIAL 10 MG IM ×2 (10:03→21:30)
--- NOTE | 2023-01-01 11:27 | P.PNPSI_ITS ---
Subjective Subjective Date of Service: 01/01/23 Reason For Visit: Psychosis Interim History: found resting in bed late morning. had refused PO meds and gotten IMs again. stated he is doing enough well, as he says daily, and denies the need for any medications. curses out MD after MD encourages him to take meds PO. per staff, flat, able to be redirected days. manually removing feces from his anus. taking meals. slept 12:45-5:30. in exchange for changing his clothes, demanding female RNs get naked with him. Mental Status Exam Mental Status Exam Narrative: sedated in bed, rousable. Pt in street clothes, disheveled. fair eye contact, attentive. No Tics or Tremors. No abnormal involuntary movements. In behavioral control but guarded. affect is flat. no SI/SIBI/HI/AVH expressed. Insight/ Judgment poor. Diagnostics Vital Signs (24Hr): Vital Signs - 24 hr 12/31/22 22:35 01/01/23 08:02 Temperature 98.1 F Pulse Rate 78 Respiratory Rate 18 185 H Blood Pressure 129/70 Pulse Oximetry 95 Oxygen Delivery Method Room Air BMI result Body Mass Index 27.7 Labs 12/14/22 02:33 12/15/22 09:08 Imaging Radiology Impressions: ITS Impressions Cervical Spine CT 12/14/22 08:06 IMPRESSION: 1. No acute intracranial, maxillofacial bone, or cervical abnormalities. 2. Right frontal cephalohematoma, not associated with fracture. 3. Coarse, lobulated calcification in the fourth ventricle, need to be further evaluated by MRI without and with contrast. 4. Degenerative changes in the cervical spine. Face CT 12/14/22 08:06 IMPRESSION: 1. No acute intracranial, maxillofacial bone, or cervical abnormalities. 2. Right frontal cephalohematoma, not associated with fracture. 3. Coarse, lobulated calcification in the fourth ventricle, need to be further evaluated by MRI without and with contrast. 4. Degenerative changes in the cervical spine. Head CT 12/14/22 08:06 IMPRESSION: 1. No acute intracranial, maxillofacial bone, or cervical abnormalities. 2. Right frontal cephalohematoma, not associated with fracture. 3. Coarse, lobulated calcification in the fourth ventricle, need to be further evaluated by MRI without and with contrast. 4. Degenerative changes in the cervical spine. Brain MRI 12/14/22 13:15 IMPRESSION: There is a 1.0 cm densely calcified lobulated lesion centered within the right anterior aspect of the fourth ventricle demonstrating peripheral enhancement. Differential considerations include a calcified choroid plexus cyst, choroid plexus papilloma, or intraventricular meningioma. The fourth ventricle remains patent without evidence of fourth ventricular outflow obstruction. No hydrocephalus. Generalized parenchymal volume loss and nonspecific white matter disease, likely mild chronic microangiopathy. Right frontal scalp hematoma. Medications Medications Current Medications Acetaminophen (Acetaminophen 325 Mg Tablet) 650 mg PO Q6H PRN PRN Reason: Headache/Pain Mild Scale (1-3) Al Hydroxide/Mg Hydroxide (Magnesium Hydrox/Alum Hydrox 30 Ml Oral.Susp) 30 ml PO Q6H PRN PRN Reason: Heartburn/Nausea Carbamazepine (Carbamazepine Er 200 Mg Tab.Er.12h) 200 mg PO DAILY [facility] Last Admin: 01/01/23 10:04 Dose: Not Given Carbamazepine (Carbamazepine Er 200 Mg Tab.Er.12h) 400 mg PO BEDTIME [facility] Last Admin: 12/31/22 22:25 Dose: Not Given Haloperidol Lactate (Haloperidol Lactate 5 Mg/Ml Vial) 10 mg IM BID PRN PRN Reason: refusal of meds, per [place] Last Admin: 01/01/23 10:03 Dose: 10 mg Hydroxyzine HCl (Hydroxyzine Hcl 25 Mg Tablet) 25 mg PO Q6H PRN PRN Reason: Anxiety [place] Carbonate ([place] Carbonate Er 450 Mg Tablet.Er) 900 mg PO BEDTIME [facility] Last Admin: 12/31/22 22:25 Dose: Not Given [place] Carbonate ([place] Carbonate 300 Mg Capsule) 600 mg PO DAILY [facility] Last Admin: 01/01/23 10:04 Dose: Not Given Lorazepam (Lorazepam 2 Mg/Ml Vial) 2 mg IM BID PRN PRN Reason: refusal of meds, per [place] Last Admin: 01/01/23 10:03 Dose: 2 mg Magnesium Hydroxide (Milk Of Magnesia 30 Ml Oral.Susp) 30 ml PO DAILY PRN PRN Reason: Constipation Olanzapine (Olanzapine 10 Mg Tablet) 20 mg PO BID [facility] Last Admin: 01/01/23 10:04 Dose: Not Given Psyllium Hydrophilic Mucilloid (Psyllium Seed 3.4 Gm Powd.Pack) 3.4 gm PO DAILY [facility] Last Admin: 01/01/23 10:04 Dose: Not Given Trazodone HCl (Trazodone Hcl 50 Mg Tablet) 50 mg PO BEDTIME PRN PRN Reason: Insomnia Trazodone HCl (Trazodone Hcl 50 Mg Tablet) 50 mg PO BEDTIME MRX1 PRN PRN Reason: Insomnia Allergies Allergies Allergy/AdvReac Type Severity Reaction Status Date / Time bupropion [From Wellbutrin] Allergy Mild CAUSES Verified 12/03/22 00:30 SWOLLEN HEAD tetracycline [Tetracycline] Allergy Mild UNKNOWN Verified 12/03/22 00:30 trifluoperazine Allergy Mild UNKNOWN Verified 12/03/22 00:30 [From Stelazine] clozapine [From Clozaril] AdvReac Mild SEIZURES,NE Verified 12/03/22 00:30 UTROPENIA Assessment & Plan Assessment & Plan (1) Schizoaffective disorder, bipolar type: Status: Acute Code(s): F25.0 - Schizoaffective disorder, bipolar type Plan 12/15: offer medications. 12/16: completed commitment paperwork. defecated in paper bag and left it in the hallway, removed shirt and not responsive to direction to cover up. postured at staff attempting to enforce limits. 12/17: no change in presentation. continue current mgmt. filed for commitment. 12/18 continue tx. not taking medications. 12/20: Last night disrobing. Continue to offer medications. Declining these. Court hearing to be scheduled. 12/21: continue tx. Pt's underwear and hospital gown covered in urine, pt instructed to change to clean gown. Pt moved away to his room, gesturing and talking to himself. Per nursing, pt only slept about 2 hrs. Pt declined medications for sleep and psychiatric illness. He pushed RN last night and was disrobing through the night in the [place]. He was spinning, becoming dizzy with unsteady gait, difficult to redirect. 12/22: continue tx. He reports I'm a super, super human being, I don't need to sleep. Pt writing on menu, disorganized to focused and complete task of electing his meals while on the unit. Per nursing, pt did not sleep last night. He was again restless, disrobing at times. He did follow this race and sports book writer after when attempted to meet with other pts. Pt needed redirection. 7/5: smearing feces on jeffrey and floor of bathroom last night, refused to change fecally soiled socks, placing fecal material in his doorway, pushing through others to do laps, moving others as they sat in their chairs. took meds this morning for the first time this admission, sound asleep late morning. hearing scheduled for tomorrow. continue current mgmt. 12/24: refusing interview. continued disorganized behavior overnight. committed and meds ordered. 12/25: disrobing in kitchen. if you offer me meds, i have the right to punch you in the stomach. refused PO meds, IMs given as per haley's order. 12/26: opting for IMs. terse, guarded, irritable. 12/27: remains terse and guarded, but taking meds PO as of last NOC. 12/28: no change in presentation or treatment. 12/29: after several days of PO meds, refused again this morning and got IMs. wandering into particular female peer's room repeatedly, putting his clothes in the toilet, urinating while seated at his desk, knocked meds out of RN's hand. put pt on 1:1 for safety, otherwise continue current mgmt. 12/30: IMs again last night for PO refusal. no change in presentation today - terse, avoidant, glaring, minimally responsive. 12/31: still refusing PO meds, getting IMs. no change in presentation. 01/01: still refusing PO meds, getting IMs. no change in presentation. manually removing feces from his anus. demanding nursing staff get naked with him. Reason for continued inpatient stay Substantial Risk for: harm to self, harm to others, inability to function and rapid decompensation Time Spent With Patient Time: Total time managing care of this patient today __25__ minutes.
[2023-01-01 20:00] VITALS: BP 136/82; PULSE 74; RESP 16; TEMP 36.6; O2SAT 96
[2023-01-02 08:00] VITALS: BP 128/77; PULSE 90; RESP 18; TEMP 36.7; O2SAT 98
--- NOTE | 2023-01-02 08:09 | P.PNPSI_ITS ---
Subjective Subjective Date of Service: 01/02/23 Reason For Visit: Psychosis Subjective Notes: Shetty Order and Section 8 Medical Problems Affecting Mental Status: No Interim History: Napped off and on during the night. States that he is superhuman and doesn't need to sleep. States he will not tlak about medications when asked about probl ems with his meds. Noted to be disrobing. Medication Compliance: Yes Side effects from medications: No Attending Groups: No Review of Systems Acute medical concerns: No Medical Review of Systems: unchanged Mental Status Exam Mental Status Exam Patient Appearance: Disheveled Patient Orientation: Person, Place and Situation Patient Behavior: Guarded and Pacing Mood Description: Blunted Affect Description: Suspicious Patient Cognition Impaired: No Ability to Follow Directions: Poor Speech Pattern: Monotone Memory Description: Intact Hallucinations: Auditory Delusions: Grandiose Thought Process: Evasive Thought Content: positive for Poverty of Content and positive for Loose Associations Abnormal Motor Activity Signs and Symptoms: Psychomotor Retardation Judgement: Poor Diagnostics Vital Signs (24Hr): Vital Signs - 24 hr 01/01/23 20:00 Temperature 97.9 F Pulse Rate 74 Respiratory Rate 16 Blood Pressure 136/82 Pulse Oximetry 96 Oxygen Delivery Method Room Air BMI result Body Mass Index 27.7 Labs 12/14/22 02:33 12/15/22 09:08 Imaging Radiology Impressions: ITS Impressions Cervical Spine CT 12/14/22 08:06 IMPRESSION: 1. No acute intracranial, maxillofacial bone, or cervical abnormalities. 2. Right frontal cephalohematoma, not associated with fracture. 3. Coarse, lobulated calcification in the fourth ventricle, need to be further evaluated by MRI without and with contrast. 4. Degenerative changes in the cervical spine. Face CT 12/14/22 08:06 IMPRESSION: 1. No acute intracranial, maxillofacial bone, or cervical abnormalities. 2. Right frontal cephalohematoma, not associated with fracture. 3. Coarse, lobulated calcification in the fourth ventricle, need to be further evaluated by MRI without and with contrast. 4. Degenerative changes in the cervical spine. Head CT 12/14/22 08:06 IMPRESSION: 1. No acute intracranial, maxillofacial bone, or cervical abnormalities. 2. Right frontal cephalohematoma, not associated with fracture. 3. Coarse, lobulated calcification in the fourth ventricle, need to be further evaluated by MRI without and with contrast. 4. Degenerative changes in the cervical spine. Brain MRI 12/14/22 13:15 IMPRESSION: There is a 1.0 cm densely calcified lobulated lesion centered within the right anterior aspect of the fourth ventricle demonstrating peripheral enhancement. Differential considerations include a calcified choroid plexus cyst, choroid plexus papilloma, or intraventricular meningioma. The fourth ventricle remains patent without evidence of fourth ventricular outflow obstruction. No hydrocephalus. Generalized parenchymal volume loss and nonspecific white matter disease, likely mild chronic microangiopathy. Right frontal scalp hematoma. Medications Medications Current Medications Acetaminophen (Acetaminophen 325 Mg Tablet) 650 mg PO Q6H PRN PRN Reason: Headache/Pain Mild Scale (1-3) Al Hydroxide/Mg Hydroxide (Magnesium Hydrox/Alum Hydrox 30 Ml Oral.Susp) 30 ml PO Q6H PRN PRN Reason: Heartburn/Nausea Carbamazepine (Carbamazepine Er 200 Mg Tab.Er.12h) 200 mg PO DAILY [facility] Last Admin: 01/01/23 10:04 Dose: Not Given Carbamazepine (Carbamazepine Er 200 Mg Tab.Er.12h) 400 mg PO BEDTIME [facility] Last Admin: 01/01/23 21:25 Dose: Not Given Haloperidol Lactate (Haloperidol Lactate 5 Mg/Ml Vial) 10 mg IM BID PRN PRN Reason: refusal of meds, per [place] Last Admin: 01/01/23 21:30 Dose: 10 mg Hydroxyzine HCl (Hydroxyzine Hcl 25 Mg Tablet) 25 mg PO Q6H PRN PRN Reason: Anxiety [place] Carbonate ([place] Carbonate Er 450 Mg Tablet.Er) 900 mg PO BEDTIME [facility] Last Admin: 01/01/23 21:25 Dose: Not Given [place] Carbonate ([place] Carbonate 300 Mg Capsule) 600 mg PO DAILY [facility] Last Admin: 01/01/23 10:04 Dose: Not Given Lorazepam (Lorazepam 2 Mg/Ml Vial) 2 mg IM BID PRN PRN Reason: refusal of meds, per [place] Last Admin: 01/01/23 21:30 Dose: 2 mg Magnesium Hydroxide (Milk Of Magnesia 30 Ml Oral.Susp) 30 ml PO DAILY PRN PRN Reason: Constipation Olanzapine (Olanzapine 10 Mg Tablet) 20 mg PO BID [facility] Last Admin: 01/01/23 21:25 Dose: Not Given Psyllium Hydrophilic Mucilloid (Psyllium Seed 3.4 Gm Powd.Pack) 3.4 gm PO BID [facility] Last Admin: 01/01/23 21:25 Dose: Not Given Trazodone HCl (Trazodone Hcl 50 Mg Tablet) 50 mg PO BEDTIME PRN PRN Reason: Insomnia Trazodone HCl (Trazodone Hcl 50 Mg Tablet) 50 mg PO BEDTIME MRX1 PRN PRN Reason: Insomnia Allergies Allergies Allergy/AdvReac Type Severity Reaction Status Date / Time bupropion [From Wellbutrin] Allergy Mild CAUSES Verified 12/03/22 00:30 SWOLLEN HEAD tetracycline [Tetracycline] Allergy Mild UNKNOWN Verified 12/03/22 00:30 trifluoperazine Allergy Mild UNKNOWN Verified 12/03/22 00:30 [From Stelazine] clozapine [From Clozaril] AdvReac Mild SEIZURES,NE Verified 12/03/22 00:30 UTROPENIA Assessment & Plan Assessment & Plan (1) Schizoaffective disorder, bipolar type: Status: Acute Code(s): F25.0 - Schizoaffective disorder, bipolar type Plan 12/15: offer medications. 12/16: completed commitment paperwork. defecated in paper bag and left it in the hallway, removed shirt and not responsive to direction to cover up. postured at staff attempting to enforce limits. 12/17: no change in presentation. continue current mgmt. filed for commitment. 12/18 continue tx. not taking medications. 12/20: Last night disrobing. Continue to offer medications. Declining these. Court hearing to be scheduled. 12/21: continue tx. Pt's underwear and hospital gown covered in urine, pt instructed to change to clean gown. Pt moved away to his room, gesturing and talking to himself. Per nursing, pt only slept about 2 hrs. Pt declined medications for sleep and psychiatric illness. He pushed RN last night and was disrobing through the night in the [place]. He was spinning, becoming dizzy with unsteady gait, difficult to redirect. 12/22: continue tx. He reports I'm a super, super human being, I don't need to sleep. Pt writing on menu, disorganized to focused and complete task of electing his meals while on the unit. Per nursing, pt did not sleep last night. He was again restless, disrobing at times. He did follow this procedure writer after when attempted to meet with other pts. Pt needed redirection. 12/23: smearing feces on jeffrey and floor of bathroom last night, refused to change fecally soiled socks, placing fecal material in his doorway, pushing through others to do laps, moving others as they sat in their chairs. took meds this morning for the first time this admission, sound asleep late morning. hearing scheduled for tomorrow. continue current mgmt. 12/24: refusing interview. continued disorganized behavior overnight. committed and meds ordered. 12/25: disrobing in kitchen. if you offer me meds, i have the right to punch you in the stomach. refused PO meds, IMs given as per haley's order. 12/26: opting for IMs. terse, guarded, irritable. 12/27: remains terse and guarded, but taking meds PO as of last NOC. 12/28: no change in presentation or treatment. 12/29: after several days of PO meds, refused again this morning and got IMs. wandering into particular female peer's room repeatedly, putting his clothes in the toilet, urinating while seated at his desk, knocked meds out of RN's hand. put pt on 1:1 for safety, otherwise continue current mgmt. 12/30: IMs again last night for PO refusal. no change in presentation today - terse, avoidant, glaring, minimally responsive. 12/31: still refusing PO meds, getting IMs. no change in presentation. 01/01: still refusing PO meds, getting IMs. no change in presentation. manually removing feces from his anus. demanding nursing staff get naked with him. 01/02: refusing PO meds but passively accepting IMs. Reason for continued inpatient stay Substantial Risk for: med/psych decompensation Time Spent With Patient Time: Total time managing care of this patient today ____ minutes.
[2023-01-02] MEDS: Haloperidol Lactate 5 MG/ML VIAL 10 MG IM ×2 (10:12→22:13)
[2023-01-02] MEDS: LORazepam 2 MG/ML VIAL IM ×2 (10:12→22:14)
[2023-01-02 20:40] VITALS: BP 128/81; PULSE 86; RESP 16; TEMP 36.7; O2SAT 97
[2023-01-03 08:00] VITALS: BP 134/85; PULSE 101; RESP 18; TEMP 36.6; O2SAT 97
--- NOTE | 2023-01-03 08:32 | P.PNPSI_ITS ---
Subjective Subjective Date of Service: 01/03/23 Reason For Visit: Psychosis Subjective Notes: Section 7 and Section 8 Medical Problems Affecting Mental Status: No Interim History: Refusing PO meds including lithium and tegretol. Accepting IMs per Devan's Order without agitation. Remains on close obs Medication Compliance: No Side effects from medications: No Attending Groups: No Review of Systems Acute medical concerns: No Medical Review of Systems: unchanged Mental Status Exam Mental Status Exam Patient Appearance: Disheveled Patient Orientation: Person Level of Consciousness: Alert Behavior Comments: Running down the skel[place] with pants falling down Mood Description: Flat Affect Description: Flat Patient Cognition Impaired: Yes Ability to Follow Directions: Poor Speech Pattern: Impoverished Memory Description: Recent Impaired Hallucinations: Auditory (suspected, patient not answering questions) Delusions: Paranoid Ideation Thought Process: Slowed Thinking Thought Content: positive for Disorganized Judgement: Poor Diagnostics Vital Signs (24Hr): Vital Signs - 24 hr 01/02/23 20:40 01/03/23 08:00 Temperature 98.1 F 97.9 F Pulse Rate 86 101 H Respiratory Rate 16 18 Blood Pressure 128/81 134/85 Pulse Oximetry 97 97 Oxygen Delivery Method Room Air Room Air BMI result Body Mass Index 27.7 Labs 12/14/22 02:33 12/15/22 09:08 Imaging Radiology Impressions: ITS Impressions Cervical Spine CT 12/14/22 08:06 IMPRESSION: 1. No acute intracranial, maxillofacial bone, or cervical abnormalities. 2. Right frontal cephalohematoma, not associated with fracture. 3. Coarse, lobulated calcification in the fourth ventricle, need to be further evaluated by MRI without and with contrast. 4. Degenerative changes in the cervical spine. Face CT 12/14/22 08:06 IMPRESSION: 1. No acute intracranial, maxillofacial bone, or cervical abnormalities. 2. Right frontal cephalohematoma, not associated with fracture. 3. Coarse, lobulated calcification in the fourth ventricle, need to be further evaluated by MRI without and with contrast. 4. Degenerative changes in the cervical spine. Head CT 12/14/22 08:06 IMPRESSION: 1. No acute intracranial, maxillofacial bone, or cervical abnormalities. 2. Right frontal cephalohematoma, not associated with fracture. 3. Coarse, lobulated calcification in the fourth ventricle, need to be further evaluated by MRI without and with contrast. 4. Degenerative changes in the cervical spine. Brain MRI 12/14/22 13:15 IMPRESSION: There is a 1.0 cm densely calcified lobulated lesion centered within the right anterior aspect of the fourth ventricle demonstrating peripheral enhancement. Differential considerations include a calcified choroid plexus cyst, choroid plexus papilloma, or intraventricular meningioma. The fourth ventricle remains patent without evidence of fourth ventricular outflow obstruction. No hydrocephalus. Generalized parenchymal volume loss and nonspecific white matter disease, likely mild chronic microangiopathy. Right frontal scalp hematoma. Medications Medications Current Medications Acetaminophen (Acetaminophen 325 Mg Tablet) 650 mg PO Q6H PRN PRN Reason: Headache/Pain Mild Scale (1-3) Al Hydroxide/Mg Hydroxide (Magnesium Hydrox/Alum Hydrox 30 Ml Oral.Susp) 30 ml PO Q6H PRN PRN Reason: Heartburn/Nausea Carbamazepine (Carbamazepine Er 200 Mg Tab.Er.12h) 200 mg PO DAILY [facility] Last Admin: 01/02/23 10:49 Dose: Not Given Carbamazepine (Carbamazepine Er 200 Mg Tab.Er.12h) 400 mg PO BEDTIME [facility] Last Admin: 01/02/23 22:21 Dose: Not Given Haloperidol Lactate (Haloperidol Lactate 5 Mg/Ml Vial) 10 mg IM BID PRN PRN Reason: refusal of meds, per [place] Last Admin: 01/02/23 22:13 Dose: 10 mg Hydroxyzine HCl (Hydroxyzine Hcl 25 Mg Tablet) 25 mg PO Q6H PRN PRN Reason: Anxiety [place] Carbonate ([place] Carbonate Er 450 Mg Tablet.Er) 900 mg PO BEDTIME [facility] Last Admin: 01/02/23 22:21 Dose: Not Given [place] Carbonate ([place] Carbonate 300 Mg Capsule) 600 mg PO DAILY [facility] Last Admin: 01/02/23 10:27 Dose: Not Given Lorazepam (Lorazepam 2 Mg/Ml Vial) 2 mg IM BID PRN PRN Reason: refusal of meds, per [place] Last Admin: 01/02/23 22:14 Dose: 2 mg Magnesium Hydroxide (Milk Of Magnesia 30 Ml Oral.Susp) 30 ml PO DAILY PRN PRN Reason: Constipation Olanzapine (Olanzapine 10 Mg Tablet) 20 mg PO BID [facility] Last Admin: 01/02/23 22:21 Dose: Not Given Psyllium Hydrophilic Mucilloid (Psyllium Seed 3.4 Gm Powd.Pack) 3.4 gm PO BID [facility] Last Admin: 01/02/23 22:14 Dose: 3.4 gm Trazodone HCl (Trazodone Hcl 50 Mg Tablet) 50 mg PO BEDTIME PRN PRN Reason: Insomnia Trazodone HCl (Trazodone Hcl 50 Mg Tablet) 50 mg PO BEDTIME MRX1 PRN PRN Reason: Insomnia Allergies Allergies Allergy/AdvReac Type Severity Reaction Status Date / Time bupropion [From Wellbutrin] Allergy Mild CAUSES Verified 12/03/22 00:30 SWOLLEN HEAD tetracycline [Tetracycline] Allergy Mild UNKNOWN Verified 12/03/22 00:30 trifluoperazine Allergy Mild UNKNOWN Verified 12/03/22 00:30 [From Stelazine] clozapine [From Clozaril] AdvReac Mild SEIZURES,NE Verified 12/03/22 00:30 UTROPENIA Assessment & Plan Assessment & Plan (1) Schizoaffective disorder, bipolar type: Status: Acute Code(s): F25.0 - Schizoaffective disorder, bipolar type Plan 12/15: offer medications. 12/16: completed commitment paperwork. defecated in paper bag and left it in the hallway, removed shirt and not responsive to direction to cover up. postured at staff attempting to enforce limits. 12/17: no change in presentation. continue current mgmt. filed for commitment. 12/18 continue tx. not taking medications. 12/20: Last night disrobing. Continue to offer medications. Declining these. Court hearing to be scheduled. 12/21: continue tx. Pt's underwear and hospital gown covered in urine, pt instructed to change to clean gown. Pt moved away to his room, gesturing and talking to himself. Per nursing, pt only slept about 2 hrs. Pt declined medications for sleep and psychiatric illness. He pushed RN last night and was disrobing through the night in the [place]. He was spinning, becoming dizzy with unsteady gait, difficult to redirect. 12/22: continue tx. He reports I'm a super, super human being, I don't need to sleep. Pt writing on menu, disorganized to focused and complete task of electing his meals while on the unit. Per nursing, pt did not sleep last night. He was again restless, disrobing at times. He did follow this health underwriter after when attempted to meet with other pts. Pt needed redirection. 12/23: smearing feces on jeffrey and floor of bathroom last night, refused to change fecally soiled socks, placing fecal material in his doorway, pushing through others to do laps, moving others as they sat in their chairs. took meds this morning for the first time this admission, sound asleep late morning. hearing scheduled for tomorrow. continue current mgmt. 12/24: refusing interview. continued disorganized behavior overnight. committed and meds ordered. 12/25: disrobing in kitchen. if you offer me meds, i have the right to punch you in the stomach. refused PO meds, IMs given as per devan's order. 12/26: opting for IMs. terse, guarded, irritable. 12/27: remains terse and guarded, but taking meds PO as of last NOC. 12/28: no change in presentation or treatment. 12/29: after several days of PO meds, refused again this morning and got IMs. wandering into particular female peer's room repeatedly, putting his clothes in the toilet, urinating while seated at his desk, knocked meds out of RN's hand. put pt on 1:1 for safety, otherwise continue current mgmt. 12/30: IMs again last night for PO refusal. no change in presentation today - terse, avoidant, glaring, minimally responsive. 12/31: still refusing PO meds, getting IMs. no change in presentation. 01/01: still refusing PO meds, getting IMs. no change in presentation. manually removing feces from his anus. demanding nursing staff get naked with him. 01/02: refusing PO meds but passively accepting IMs. 01/03: remains on close obs. still refusing mood stabilizers, receiving ativan and haldol IM Reason for continued inpatient stay Substantial Risk for: inability to function Time Spent With Patient Time: Total time managing care of this patient today __20__ minutes.
[2023-01-03] MEDS: Haloperidol Lactate 5 MG/ML VIAL 10 MG IM ×2 (10:01→21:40)
[2023-01-03] MEDS: LORazepam 2 MG/ML VIAL IM ×2 (10:01→21:40)
[2023-01-03 19:02] VITALS: BP 149/83; PULSE 92; RESP 18; TEMP 36.4; O2SAT 98
--- NOTE | 2023-01-03 19:10 | PC.NURSE ---
Eriberto started running down the hallway, was not responding to staff redirection, patient tripped and fell. Fall was witnessed by MHC's, did not hit head. Upon assessment patient took sneakers off attempted to run again, redirected by staff. He denied having pain, I want everyone to know that I run fast. Vital signs obtained, Dr. Feldman notified.
[2023-01-03 19:50] VITALS: BP 160/88; PULSE 90; RESP 18; TEMP 36.4; O2SAT 97
[2023-01-04 08:00] VITALS: BP 139/75; PULSE 97; RESP 18; TEMP 36.6; O2SAT 97
[2023-01-04] MEDS: Haloperidol Lactate 5 MG/ML VIAL 10 MG IM ×2 (09:29→21:46)
[2023-01-04] MEDS: LORazepam 2 MG/ML VIAL IM ×2 (09:30→21:45)
--- NOTE | 2023-01-04 17:17 | HO.PSYCHPN ---
Subjective Subjective Date of Service: 01/04/23 Reason For Visit: Psychosis Subjective Notes: Section 8 Interim History: Patient on 1-1 irritable disorganized at times intrusive and vaguely threatening Patient on Section 8 in treatment order at times requiring IM am Zyprexa Medication Compliance: Intermittent Mental Status Exam Mental Status Exam Patient Appearance: Disheveled Patient Orientation: Person and Place Level of Consciousness: Alert Patient Behavior: Belligerent Behavior Comments: Running down the skel[place] with pants falling down Mood Description: Labile, Angry and Apprehensive Affect Description: Hostile and Apprehensive Patient Cognition Impaired: Yes Ability to Follow Directions: Poor Speech Pattern: Impoverished Memory Description: Recent Impaired Hallucinations: Auditory (suspected, patient not answering questions) Delusions: Paranoid Ideation Thought Process: Slowed Thinking Thought Content: positive for Disorganized Judgement: Poor Diagnostics Vital Signs (24Hr): Vital Signs - 24 hr 01/03/23 19:02 01/03/23 19:50 01/04/23 08:00 Temperature 97.6 F 97.6 F 97.9 F Pulse Rate 92 90 97 Respiratory Rate 18 18 18 Blood Pressure 149/83 H 160/88 H 139/75 Pulse Oximetry 98 97 97 Oxygen Delivery Method Room Air Room Air BMI result Body Mass Index 27.7 Labs 12/14/22 02:33 12/15/22 09:08 Imaging Radiology Impressions: ITS Impressions Cervical Spine CT 12/14/22 08:06 IMPRESSION: 1. No acute intracranial, maxillofacial bone, or cervical abnormalities. 2. Right frontal cephalohematoma, not associated with fracture. 3. Coarse, lobulated calcification in the fourth ventricle, need to be further evaluated by MRI without and with contrast. 4. Degenerative changes in the cervical spine. Face CT 12/14/22 08:06 IMPRESSION: 1. No acute intracranial, maxillofacial bone, or cervical abnormalities. 2. Right frontal cephalohematoma, not associated with fracture. 3. Coarse, lobulated calcification in the fourth ventricle, need to be further evaluated by MRI without and with contrast. 4. Degenerative changes in the cervical spine. Head CT 12/14/22 08:06 IMPRESSION: 1. No acute intracranial, maxillofacial bone, or cervical abnormalities. 2. Right frontal cephalohematoma, not associated with fracture. 3. Coarse, lobulated calcification in the fourth ventricle, need to be further evaluated by MRI without and with contrast. 4. Degenerative changes in the cervical spine. Brain MRI 12/14/22 13:15 IMPRESSION: There is a 1.0 cm densely calcified lobulated lesion centered within the right anterior aspect of the fourth ventricle demonstrating peripheral enhancement. Differential considerations include a calcified choroid plexus cyst, choroid plexus papilloma, or intraventricular meningioma. The fourth ventricle remains patent without evidence of fourth ventricular outflow obstruction. No hydrocephalus. Generalized parenchymal volume loss and nonspecific white matter disease, likely mild chronic microangiopathy. Right frontal scalp hematoma. Medications Medications Current Medications Acetaminophen (Acetaminophen 325 Mg Tablet) 650 mg PO Q6H PRN PRN Reason: Headache/Pain Mild Scale (1-3) Al Hydroxide/Mg Hydroxide (Magnesium Hydrox/Alum Hydrox 30 Ml Oral.Susp) 30 ml PO Q6H PRN PRN Reason: Heartburn/Nausea Carbamazepine (Carbamazepine Er 200 Mg Tab.Er.12h) 200 mg PO DAILY [facility] Last Admin: 01/04/23 09:28 Dose: Not Given Carbamazepine (Carbamazepine Er 200 Mg Tab.Er.12h) 400 mg PO BEDTIME [facility] Last Admin: 01/04/23 00:27 Dose: Not Given Haloperidol Lactate (Haloperidol Lactate 5 Mg/Ml Vial) 10 mg IM BID PRN PRN Reason: refusal of meds, juan abdi Last Admin: 01/04/23 09:29 Dose: 10 mg Hydroxyzine HCl (Hydroxyzine Hcl 25 Mg Tablet) 25 mg PO Q6H PRN PRN Reason: Anxiety [place] Carbonate ([place] Carbonate Er 450 Mg Tablet.Er) 900 mg PO BEDTIME [facility] Last Admin: 01/04/23 00:27 Dose: Not Given [place] Carbonate ([place] Carbonate 300 Mg Capsule) 600 mg PO DAILY [facility] Last Admin: 01/04/23 09:28 Dose: Not Given Lorazepam (Lorazepam 2 Mg/Ml Vial) 2 mg IM BID PRN PRN Reason: refusal of meds, per [place] Last Admin: 01/04/23 09:30 Dose: 2 mg Magnesium Hydroxide (Milk Of Magnesia 30 Ml Oral.Susp) 30 ml PO DAILY PRN PRN Reason: Constipation Olanzapine (Olanzapine 10 Mg Tablet) 20 mg PO BID [facility] Last Admin: 01/04/23 09:28 Dose: Not Given Psyllium Hydrophilic Mucilloid (Psyllium Seed 3.4 Gm Powd.Pack) 3.4 gm PO BID [facility] Last Admin: 01/04/23 09:29 Dose: Not Given Trazodone HCl (Trazodone Hcl 50 Mg Tablet) 50 mg PO BEDTIME PRN PRN Reason: Insomnia Trazodone HCl (Trazodone Hcl 50 Mg Tablet) 50 mg PO BEDTIME MRX1 PRN PRN Reason: Insomnia Allergies Allergies Allergy/AdvReac Type Severity Reaction Status Date / Time bupropion [From Wellbutrin] Allergy Mild CAUSES Verified 12/03/22 00:30 SWOLLEN HEAD tetracycline [Tetracycline] Allergy Mild UNKNOWN Verified 12/03/22 00:30 trifluoperazine Allergy Mild UNKNOWN Verified 12/03/22 00:30 [From Stelazine] clozapine [From Clozaril] AdvReac Mild SEIZURES,NE Verified 12/03/22 00:30 UTROPENIA Assessment & Plan Assessment & Plan (1) Schizoaffective disorder, bipolar type: Status: Acute Code(s): F25.0 - Schizoaffective disorder, bipolar type Plan 12/15: offer medications. 12/16: completed commitment paperwork. defecated in paper bag and left it in the hallway, removed shirt and not responsive to direction to cover up. postured at staff attempting to enforce limits. 12/17: no change in presentation. continue current mgmt. filed for commitment. 12/18 continue tx. not taking medications. 12/20: Last night disrobing. Continue to offer medications. Declining these. Court hearing to be scheduled. 12/21: continue tx. Pt's underwear and hospital gown covered in urine, pt instructed to change to clean gown. Pt moved away to his room, gesturing and talking to himself. Per nursing, pt only slept about 2 hrs. Pt declined medications for sleep and psychiatric illness. He pushed RN last night and was disrobing through the night in the [place]. He was spinning, becoming dizzy with unsteady gait, difficult to redirect. 12/22: continue tx. He reports I'm a super, super human being, I don't need to sleep. Pt writing on menu, disorganized to focused and complete task of electing his meals while on the unit. Per nursing, pt did not sleep last night. He was again restless, disrobing at times. He did follow this commercial lines underwriter after when attempted to meet with other pts. Pt needed redirection. 12/23: smearing feces on jeffrey and floor of bathroom last night, refused to change fecally soiled socks, placing fecal material in his doorway, pushing through others to do laps, moving others as they sat in their chairs. took meds this morning for the first time this admission, sound asleep late morning. hearing scheduled for tomorrow. continue current mgmt. 12/24: refusing interview. continued disorganized behavior overnight. committed and meds ordered. 12/25: disrobing in kitchen. if you offer me meds, i have the right to punch you in the stomach. refused PO meds, IMs given as per haley's order. 12/26: opting for IMs. terse, guarded, irritable. 12/27: remains terse and guarded, but taking meds PO as of last NOC. 12/28: no change in presentation or treatment. 12/29: after several days of PO meds, refused again this morning and got IMs. wandering into particular female peer's room repeatedly, putting his clothes in the toilet, urinating while seated at his desk, knocked meds out of RN's hand. put pt on 1:1 for safety, otherwise continue current mgmt. 12/30: IMs again last night for PO refusal. no change in presentation today - terse, avoidant, glaring, minimally responsive. 12/31: still refusing PO meds, getting IMs. no change in presentation. 01/01: still refusing PO meds, getting IMs. no change in presentation. manually removing feces from his anus. demanding nursing staff get naked with him. 01/02: refusing PO meds but passively accepting IMs. 01/03: remains on close obs. still refusing mood stabilizers, receiving ativan and haldol IM 01/04/2023 Patient generally refusing p.o. medication receiving IM antipsychotic Informed Consent: does not understand Reason for continued inpatient stay Substantial Risk for: harm to others, inability to function and rapid decompensation Time Spent With Patient Time: Total time managing care of this patient today _20___ minutes.
[2023-01-04 20:40] VITALS: RESP 18
[2023-01-05 10:00] VITALS: BP 116/72; PULSE 70; RESP 16; TEMP 36.9; O2SAT 98
[2023-01-05] MEDS: Haloperidol Lactate 5 MG/ML VIAL 10 MG IM ×2 (10:18→21:55)
[2023-01-05] MEDS: LORazepam 2 MG/ML VIAL IM ×2 (10:18→21:55)
[2023-01-05 20:45] VITALS: BP 160/102; PULSE 88; RESP 18; TEMP 36.4; O2SAT 96
--- NOTE | 2023-01-05 23:03 | P.PNPSI_ITS ---
Subjective Subjective Date of Service: 01/05/23 Reason For Visit: Psychosis Subjective Notes: Section 8 Interim History: The patient was out of bed more today remains somewhat disheveled irritable depressed anxious becomes preoccupied with stating he just needs supplements and not accepting of psychiatric treatment or illness. 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 He had been stable on olanzapine in the past in 2008 he had a course of ECT which apparently was quite helpful in addition to olanzapine Mental Status Exam Mental Status Exam Patient Appearance: Disheveled Patient Orientation: Person and Place Level of Consciousness: Awake Patient Behavior: Guarded and Belligerent Behavior Comments: Somewhat less agitated was able to play scrabble for period of time Mood Description: Labile, Angry and Apprehensive Affect Description: Depressed and Apprehensive Patient Cognition Impaired: Yes Ability to Follow Directions: Poor Speech Pattern: Impoverished Memory Description: Recent Impaired Hallucinations: Auditory (suspected, patient not answering questions) Delusions: Paranoid Ideation Thought Process: Slowed Thinking Thought Content: positive for Disorganized Judgement: Poor Judgement and Insight: Patient irritable apprehensive continues to show marked of insight refusing p.o. medication stating he just needs supplements less combative poor hygiene Diagnostics Vital Signs (24Hr): Vital Signs - 24 hr 01/05/23 10:00 01/05/23 20:45 Temperature 98.4 F 97.6 F Pulse Rate 70 88 Respiratory Rate 16 18 Blood Pressure 116/72 160/102 H Pulse Oximetry 98 96 Oxygen Delivery Method Room Air Room Air BMI result Body Mass Index 27.7 Labs 12/14/22 02:33 12/15/22 09:08 Imaging Radiology Impressions: ITS Impressions Cervical Spine CT 12/14/22 08:06 IMPRESSION: 1. No acute intracranial, maxillofacial bone, or cervical abnormalities. 2. Right frontal cephalohematoma, not associated with fracture. 3. Coarse, lobulated calcification in the fourth ventricle, need to be further evaluated by MRI without and with contrast. 4. Degenerative changes in the cervical spine. Face CT 12/14/22 08:06 IMPRESSION: 1. No acute intracranial, maxillofacial bone, or cervical abnormalities. 2. Right frontal cephalohematoma, not associated with fracture. 3. Coarse, lobulated calcification in the fourth ventricle, need to be further evaluated by MRI without and with contrast. 4. Degenerative changes in the cervical spine. Head CT 12/14/22 08:06 IMPRESSION: 1. No acute intracranial, maxillofacial bone, or cervical abnormalities. 2. Right frontal cephalohematoma, not associated with fracture. 3. Coarse, lobulated calcification in the fourth ventricle, need to be further evaluated by MRI without and with contrast. 4. Degenerative changes in the cervical spine. Brain MRI 12/14/22 13:15 IMPRESSION: There is a 1.0 cm densely calcified lobulated lesion centered within the right anterior aspect of the fourth ventricle demonstrating peripheral enhancement. Differential considerations include a calcified choroid plexus cyst, choroid plexus papilloma, or intraventricular meningioma. The fourth ventricle remains patent without evidence of fourth ventricular outflow obstruction. No hydrocephalus. Generalized parenchymal volume loss and nonspecific white matter disease, likely mild chronic microangiopathy. Right frontal scalp hematoma. Medications Medications Current Medications Acetaminophen (Acetaminophen 325 Mg Tablet) 650 mg PO Q6H PRN PRN Reason: Headache/Pain Mild Scale (1-3) Al Hydroxide/Mg Hydroxide (Magnesium Hydrox/Alum Hydrox 30 Ml Oral.Susp) 30 ml PO Q6H PRN PRN Reason: Heartburn/Nausea Carbamazepine (Carbamazepine Er 200 Mg Tab.Er.12h) 200 mg PO DAILY [facility] Last Admin: 01/05/23 10:29 Dose: Not Given Carbamazepine (Carbamazepine Er 200 Mg Tab.Er.12h) 400 mg PO BEDTIME [facility] Last Admin: 01/05/23 21:55 Dose: Not Given Haloperidol Lactate (Haloperidol Lactate 5 Mg/Ml Vial) 10 mg IM BID PRN PRN Reason: refusal of meds, per [place] Last Admin: 01/05/23 21:55 Dose: 10 mg Hydroxyzine HCl (Hydroxyzine Hcl 25 Mg Tablet) 25 mg PO Q6H PRN PRN Reason: Anxiety [place] Carbonate ([place] Carbonate Er 450 Mg Tablet.Er) 900 mg PO BEDTIME [facility] Last Admin: 01/05/23 21:55 Dose: Not Given [place] Carbonate ([place] Carbonate 300 Mg Capsule) 600 mg PO DAILY [facility] Last Admin: 01/05/23 10:29 Dose: Not Given Lorazepam (Lorazepam 2 Mg/Ml Vial) 2 mg IM BID PRN PRN Reason: refusal of meds, per hlaey's Last Admin: 01/05/23 21:55 Dose: 2 mg Magnesium Hydroxide (Milk Of Magnesia 30 Ml Oral.Susp) 30 ml PO DAILY PRN PRN Reason: Constipation Olanzapine (Olanzapine 10 Mg Tablet) 20 mg PO BID [facility] Last Admin: 01/05/23 21:55 Dose: Not Given Psyllium Hydrophilic Mucilloid (Psyllium Seed 3.4 Gm Powd.Pack) 3.4 gm PO BID [facility] Last Admin: 01/05/23 21:55 Dose: Not Given Trazodone HCl (Trazodone Hcl 50 Mg Tablet) 50 mg PO BEDTIME PRN PRN Reason: Insomnia Trazodone HCl (Trazodone Hcl 50 Mg Tablet) 50 mg PO BEDTIME MRX1 PRN PRN Reason: Insomnia Allergies Allergies Allergy/AdvReac Type Severity Reaction Status Date / Time bupropion [From Wellbutrin] Allergy Mild CAUSES Verified 12/03/22 00:30 SWOLLEN HEAD tetracycline [Tetracycline] Allergy Mild UNKNOWN Verified 12/03/22 00:30 trifluoperazine Allergy Mild UNKNOWN Verified 12/03/22 00:30 [From Stelazine] clozapine [From Clozaril] AdvReac Mild SEIZURES,NE Verified 12/03/22 00:30 UTROPENIA Assessment & Plan Assessment & Plan (1) Schizoaffective disorder, bipolar type: Status: Acute Code(s): F25.0 - Schizoaffective disorder, bipolar type Plan 12/15: offer medications. 12/16: completed commitment paperwork. defecated in paper bag and left it in the hallway, removed shirt and not responsive to direction to cover up. postured at staff attempting to enforce limits. 12/17: no change in presentation. continue current mgmt. filed for commitment. 12/18 continue tx. not taking medications. 12/20: Last night disrobing. Continue to offer medications. Declining these. Court hearing to be scheduled. 12/21: continue tx. Pt's underwear and hospital gown covered in urine, pt instructed to change to clean gown. Pt moved away to his room, gesturing and talking to himself. Per nursing, pt only slept about 2 hrs. Pt declined medications for sleep and psychiatric illness. He pushed RN last night and was disrobing through the night in the [place]. He was spinning, becoming dizzy with unsteady gait, difficult to redirect. 12/22: continue tx. He reports I'm a super, super human being, I don't need to sleep. Pt writing on menu, disorganized to focused and complete task of electing his meals while on the unit. Per nursing, pt did not sleep last night. He was again restless, disrobing at times. He did follow this publications writer after when attempted to meet with other pts. Pt needed redirection. 12/23: smearing feces on jeffrey and floor of bathroom last night, refused to change fecally soiled socks, placing fecal material in his doorway, pushing through others to do laps, moving others as they sat in their chairs. took meds this morning for the first time this admission, sound asleep late morning. hearing scheduled for tomorrow. continue current mgmt. 12/24: refusing interview. continued disorganized behavior overnight. committed and meds ordered. 12/25: disrobing in kitchen. if you offer me meds, i have the right to punch you in the stomach. refused PO meds, IMs given as per haley's order. 12/26: opting for IMs. terse, guarded, irritable. 12/27: remains terse and guarded, but taking meds PO as of last NOC. 12/28: no change in presentation or treatment. 12/29: after several days of PO meds, refused again this morning and got IMs. wandering into particular female peer's room repeatedly, putting his clothes in the toilet, urinating while seated at his desk, knocked meds out of RN's hand. put pt on 1:1 for safety, otherwise continue current mgmt. 12/30: IMs again last night for PO refusal. no change in presentation today - terse, avoidant, glaring, minimally responsive. 12/31: still refusing PO meds, getting IMs. no change in presentation. 01/01: still refusing PO meds, getting IMs. no change in presentation. manually removing feces from his anus. demanding nursing staff get naked with him. 01/02: refusing PO meds but passively accepting IMs. 01/03: remains on close obs. still refusing mood stabilizers, receiving ativan and haldol IM 01/04/2023 Patient generally refusing p.o. medication receiving IM antipsychotic 01/05/2023 Patient for an extended period of time is apparently not been cooperative with taking p.o. medication became convinced he just needs multiple supplements. He would clearly benefit from a long-acting injectable chart reviewed patient had ECT in 2008 says secondary to suicidal depression and psychosis and apparently at that time responded quite well he clearly has a bipolar component would be nefit from acceptance of Depakote/lithium cannot take in information about his condition Informed Consent: does not understand Reason for continued inpatient stay Substantial Risk for: harm to others, inability to function and rapid decompensation Time Spent With Patient Time: Total time managing care of this patient today ____ minutes.
[2023-01-06 06:00] VITALS: RESP 18
[2023-01-06] MEDS: LORazepam 2 MG/ML VIAL IM ×2 (09:34→22:31)
[2023-01-06] MEDS: Haloperidol Lactate 5 MG/ML VIAL 10 MG IM ×2 (09:34→22:31)
--- NOTE | 2023-01-06 13:49 | P.PNPSI_ITS ---
Subjective Subjective Date of Service: 01/06/23 Reason For Visit: Psychosis Interim History: resting in bed late morning, rousable to voice. no change from recent presentation. refusing PO meds, declines offer of PO invega. per staff, spending time naked in bed yesterday. voided, then put hands in toilet to wash his hands. RIS. eating and sleeping. playing scrabble, watching TV. tripped and fell onto his back in his room yesterday, no apparent injury. refusing PO meds, slept all NOC. Mental Status Exam Mental Status Exam Narrative: sedated in bed, rousable. Pt in street clothes, disheveled. fair eye contact, attentive. No Tics or Tremors. No abnormal involuntary movements. In behavioral control but guarded. affect is flat. no SI/SIBI/HI/AVH expressed. Insight/ Judgment poor. Diagnostics Vital Signs (24Hr): Vital Signs - 24 hr 01/05/23 20:45 01/06/23 06:00 Temperature 97.6 F Pulse Rate 88 Respiratory Rate 18 18 Blood Pressure 160/102 H Pulse Oximetry 96 Oxygen Delivery Method Room Air BMI result Body Mass Index 27.7 Labs 12/14/22 02:33 12/15/22 09:08 Imaging Radiology Impressions: ITS Impressions Cervical Spine CT 12/14/22 08:06 IMPRESSION: 1. No acute intracranial, maxillofacial bone, or cervical abnormalities. 2. Right frontal cephalohematoma, not associated with fracture. 3. Coarse, lobulated calcification in the fourth ventricle, need to be further evaluated by MRI without and with contrast. 4. Degenerative changes in the cervical spine. Face CT 12/14/22 08:06 IMPRESSION: 1. No acute intracranial, maxillofacial bone, or cervical abnormalities. 2. Right frontal cephalohematoma, not associated with fracture. 3. Coarse, lobulated calcification in the fourth ventricle, need to be further evaluated by MRI without and with contrast. 4. Degenerative changes in the cervical spine. Head CT 12/14/22 08:06 IMPRESSION: 1. No acute intracranial, maxillofacial bone, or cervical abnormalities. 2. Right frontal cephalohematoma, not associated with fracture. 3. Coarse, lobulated calcification in the fourth ventricle, need to be further evaluated by MRI without and with contrast. 4. Degenerative changes in the cervical spine. Brain MRI 12/14/22 13:15 IMPRESSION: There is a 1.0 cm densely calcified lobulated lesion centered within the right anterior aspect of the fourth ventricle demonstrating peripheral enhancement. Differential considerations include a calcified choroid plexus cyst, choroid plexus papilloma, or intraventricular meningioma. The fourth ventricle remains patent without evidence of fourth ventricular outflow obstruction. No hydrocephalus. Generalized parenchymal volume loss and nonspecific white matter disease, likely mild chronic microangiopathy. Right frontal scalp hematoma. Medications Medications Current Medications Acetaminophen (Acetaminophen 325 Mg Tablet) 650 mg PO Q6H PRN PRN Reason: Headache/Pain Mild Scale (1-3) Al Hydroxide/Mg Hydroxide (Magnesium Hydrox/Alum Hydrox 30 Ml Oral.Susp) 30 ml PO Q6H PRN PRN Reason: Heartburn/Nausea Carbamazepine (Carbamazepine Er 200 Mg Tab.Er.12h) 200 mg PO DAILY [facility] [place] Last Admin: 01/06/23 09:33 Dose: Not Given Carbamazepine (Carbamazepine Er 200 Mg Tab.Er.12h) 400 mg PO BEDTIME [facility] [place] Last Admin: 01/05/23 21:55 Dose: Not Given Haloperidol Lactate (Haloperidol Lactate 5 Mg/Ml Vial) 10 mg IM BID PRN PRN Reason: refusal of meds, per [place] Last Admin: 01/06/23 09:34 Dose: 10 mg Hydroxyzine HCl (Hydroxyzine Hcl 25 Mg Tablet) 25 mg PO Q6H PRN PRN Reason: Anxiety [place] Carbonate ([place] Carbonate Er 450 Mg Tablet.Er) 900 mg PO BEDTIME [facility] [place] Last Admin: 01/05/23 21:55 Dose: Not Given [place] Carbonate ([place] Carbonate 300 Mg Capsule) 600 mg PO DAILY [facility] [place] Last Admin: 01/06/23 09:34 Dose: Not Given Lorazepam (Lorazepam 2 Mg/Ml Vial) 2 mg IM BID PRN PRN Reason: refusal of meds, per haley[facility] Last Admin: 01/06/23 09:34 Dose: 2 mg Magnesium Hydroxide (Milk Of Magnesia 30 Ml Oral.Susp) 30 ml PO DAILY PRN PRN Reason: Constipation Olanzapine (Olanzapine 10 Mg Tablet) 20 mg PO BID [facility] [place] Last Admin: 01/06/23 09:34 Dose: Not Given Psyllium Hydrophilic Mucilloid (Psyllium Seed 3.4 Gm Powd.Pack) 3.4 gm PO BID [facility] [place] Last Admin: 01/06/23 09:34 Dose: Not Given Trazodone HCl (Trazodone Hcl 50 Mg Tablet) 50 mg PO BEDTIME PRN PRN Reason: Insomnia Trazodone HCl (Trazodone Hcl 50 Mg Tablet) 50 mg PO BEDTIME MRX1 PRN PRN Reason: Insomnia Allergies Allergies Allergy/AdvReac Type Severity Reaction Status Date / Time bupropion [From Wellbutrin] Allergy Mild CAUSES Verified 12/03/22 00:30 SWOLLEN HEAD tetracycline [Tetracycline] Allergy Mild UNKNOWN Verified 12/03/22 00:30 trifluoperazine Allergy Mild UNKNOWN Verified 12/03/22 00:30 [From Stelazine] clozapine [From Clozaril] AdvReac Mild SEIZURES,NE Verified 12/03/22 00:30 UTROPENIA Assessment & Plan Assessment & Plan (1) Schizoaffective disorder, bipolar type: Status: Acute Code(s): F25.0 - Schizoaffective disorder, bipolar type Plan 12/15: offer medications. 12/16: completed commitment paperwork. defecated in paper bag and left it in the hallway, removed shirt and not responsive to direction to cover up. postured at staff attempting to enforce limits. 12/17: no change in presentation. continue current mgmt. filed for commitment. 12/18 continue tx. not taking medications. 12/20: Last night disrobing. Continue to offer medications. Declining these. Court hearing to be scheduled. 12/21: continue tx. Pt's underwear and hospital gown covered in urine, pt instructed to change to clean gown. Pt moved away to his room, gesturing and talking to himself. Per nursing, pt only slept about 2 hrs. Pt declined medications for sleep and psychiatric illness. He pushed RN last night and was disrobing through the night in the [place]. He was spinning, becoming dizzy with un steady gait, difficult to redirect. 12/22: continue tx. He reports I'm a super, super human being, I don't need to sleep. Pt writing on menu, disorganized to focused and complete task of electing his meals while on the unit. Per nursing, pt did not sleep last night. He was again restless, disrobing at times. He did follow this senior mortgage underwriter after when attempted to meet with other pts. Pt needed redirection. 12/23: smearing feces on jeffrey and floor of bathroom last night, refused to change fecally soiled socks, placing fecal material in his doorway, pushing through others to do laps, moving others as they sat in their chairs. took meds this morning for the first time this admission, sound asleep late morning. hearing scheduled for tomorrow. continue current mgmt. 12/24: refusing interview. continued disorganized behavior overnight. committed and meds ordered. 12/25: disrobing in kitchen. if you offer me meds, i have the right to punch you in the stomach. refused PO meds, IMs given as per haley's order. 12/26: opting for IMs. terse, guarded, irritable. 12/27: remains terse and guarded, but taking meds PO as of last NOC. 12/28: no change in presentation or treatment. 12/29: after several days of PO meds, refused again this morning and got IMs. wandering into particular female peer's room repeatedly, putting his clothes in the toilet, urinating while seated at his desk, knocked meds out of RN's hand. put pt on 1:1 for safety, otherwise continue current mgmt. 12/30: IMs again last night for PO refusal. no change in presentation today - terse, avoidant, glaring, minimally responsive. 12/31: still refusing PO meds, getting IMs. no change in presentation. 01/01: still refusing PO meds, getting IMs. no change in presentation. manually removing feces from his anus. demanding nursing staff get naked with him. 01/02: refusing PO meds but passively accepting IMs. 01/03: remains on close obs. still refusing mood stabilizers, receiving ativan and haldol IM 01/04/2023 Patient generally refusing p.o. medication receiving IM antipsychotic 01/05/2023 Patient for an extended period of time is apparently not been cooperative with taking p.o. medication became convinced he just needs multiple supplements. He would clearly benefit from a long-acting injectable chart reviewed patient had ECT in 2008 says secondary to suicidal depression and psychosis and apparently at that time responded quite well he clearly has a bipolar component would benefit from acceptance of Depakote/lithium cannot take in information about his condition. 7/19: message meft for landsom re h/o invega. if there is evidence pt has tolerated invega in the past will likely start EVANS sustenna. no change in presentation, still refusing PO meds. Reason for continued inpatient stay Substantial Risk for: harm to self, harm to others, inability to function and rapid decompensation Time Spent With Patient Time: Total time managing care of this patient today _25___ minutes.
[2023-01-06 20:47] VITALS: BP 143/85; PULSE 106; RESP 18; TEMP 36.8; O2SAT 96
[2023-01-07 07:00] VITALS: BMI 28.1
[2023-01-07] MEDS: LORazepam 2 MG/ML VIAL IM ×2 (10:14→20:25)
[2023-01-07] MEDS: Haloperidol Lactate 5 MG/ML VIAL 10 MG IM (10:15)
[2023-01-07 10:30] VITALS: BP 129/85; PULSE 88; RESP 18; TEMP 36.9; O2SAT 96
--- NOTE | 2023-01-07 16:00 | P.PNPSI_ITS ---
Subjective Subjective Date of Service: 01/07/23 Reason For Visit: Psychosis Interim History: found resting in his bed late morning, rousable. declines any change in medications, declines PO invega. informed he would be receiving invega sustenna today in that case. per staff, smacked the pills out of RN's hand when he was offered them. masturbating with door open and staff present. misogynistic statements. Mental Status Exam Mental Status Exam Narrative: sedated in bed, rousable. Pt in street clothes, disheveled. fair eye contact, attentive. No Tics or Tremors. No abnormal involuntary movements. In behavioral control but guarded. affect is flat. no SI/SIBI/HI/AVH expressed. Insight/ Judgment poor. Diagnostics Vital Signs (24Hr): Vital Signs - 24 hr 01/06/23 20:47 01/07/23 10:30 Temperature 98.2 F 98.4 F Pulse Rate 106 H 88 Respiratory Rate 18 18 Blood Pressure 143/85 H 129/85 Pulse Oximetry 96 96 Oxygen Delivery Method Room Air Room Air BMI result Body Mass Index 27.7 Labs 12/14/22 02:33 12/15/22 09:08 Imaging Radiology Impressions: ITS Impressions Cervical Spine CT 12/14/22 08:06 IMPRESSION: 1. No acute intracranial, maxillofacial bone, or cervical abnormalities. 2. Right frontal cephalohematoma, not associated with fracture. 3. Coarse, lobulated calcification in the fourth ventricle, need to be further evaluated by MRI without and with contrast. 4. Degenerative changes in the cervical spine. Face CT 12/14/22 08:06 IMPRESSION: 1. No acute intracranial, maxillofacial bone, or cervical abnormalities. 2. Right frontal cephalohematoma, not associated with fracture. 3. Coarse, lobulated calcification in the fourth ventricle, need to be further evaluated by MRI without and with contrast. 4. Degenerative changes in the cervical spine. Head CT 12/14/22 08:06 IMPRESSION: 1. No acute intracranial, maxillofacial bone, or cervical abnormalities. 2. Right frontal cephalohematoma, not associated with fracture. 3. Coarse, lobulated calcification in the fourth ventricle, need to be further evaluated by MRI without and with contrast. 4. Degenerative changes in the cervical spine. Brain MRI 12/14/22 13:15 IMPRESSION: There is a 1.0 cm densely calcified lobulated lesion centered within the right anterior aspect of the fourth ventricle demonstrating peripheral enhancement. Differential considerations include a calcified choroid plexus cyst, choroid plexus papilloma, or intraventricular meningioma. The fourth ventricle remains patent without evidence of fourth ventricular outflow obstruction. No hydrocephalus. Generalized parenchymal volume loss and nonspecific white matter disease, likely mild chronic microangiopathy. Right frontal scalp hematoma. Medications Medications Current Medications Acetaminophen (Acetaminophen 325 Mg Tablet) 650 mg PO Q6H PRN PRN Reason: Headache/Pain Mild Scale (1-3) Al Hydroxide/Mg Hydroxide (Magnesium Hydrox/Alum Hydrox 30 Ml Oral.Susp) 30 ml PO Q6H PRN PRN Reason: Heartburn/Nausea Carbamazepine (Carbamazepine Er 200 Mg Tab.Er.12h) 200 mg PO DAILY [facility] Last Admin: 01/07/23 10:15 Dose: Not Given Carbamazepine (Carbamazepine Er 200 Mg Tab.Er.12h) 400 mg PO BEDTIME [facility] Last Admin: 01/06/23 22:34 Dose: Not Given Hydroxyzine HCl (Hydroxyzine Hcl 25 Mg Tablet) 25 mg PO Q6H PRN PRN Reason: Anxiety [place] Carbonate ([place] Carbonate Er 450 Mg Tablet.Er) 900 mg PO BEDTIME [facility] Last Admin: 01/06/23 22:35 Dose: Not Given [place] Carbonate ([place] Carbonate 300 Mg Capsule) 600 mg PO DAILY [facility] Last Admin: 01/07/23 10:15 Dose: Not Given Lorazepam (Lorazepam 2 Mg/Ml Vial) 2 mg IM BID PRN PRN Reason: refusal of meds, per haley's Last Admin: 01/07/23 10:14 Dose: 2 mg Magnesium Hydroxide (Milk Of Magnesia 30 Ml Oral.Susp) 30 ml PO DAILY PRN PRN Reason: Constipation Olanzapine (Olanzapine 10 Mg Tablet) 20 mg PO BID [facility] Last Admin: 01/07/23 10:15 Dose: Not Given Psyllium Hydrophilic Mucilloid (Psyllium Seed 3.4 Gm Powd.Pack) 3.4 gm PO BID [facility] Last Admin: 01/07/23 10:15 Dose: Not Given Trazodone HCl (Trazodone Hcl 50 Mg Tablet) 50 mg PO BEDTIME PRN PRN Reason: Insomnia Trazodone HCl (Trazodone Hcl 50 Mg Tablet) 50 mg PO BEDTIME MRX1 PRN PRN Reason: Insomnia Allergies Allergies Allergy/AdvReac Type Severity Reaction Status Date / Time bupropion [From Wellbutrin] Allergy Mild CAUSES Verified 12/03/22 00:30 SWOLLEN HEAD tetracycline [Tetracycline] Allergy Mild UNKNOWN Verified 12/03/22 00:30 trifluoperazine Allergy Mild UNKNOWN Verified 12/03/22 00:30 [From Stelazine] clozapine [From Clozaril] AdvReac Mild SEIZURES,NE Verified 12/03/22 00:30 UTROPENIA Assessment & Plan Assessment & Plan (1) Schizoaffective disorder, bipolar type: Status: Acute Code(s): F25.0 - Schizoaffective disorder, bipolar type Plan 12/15: offer medications. 12/16: completed commitment paperwork. defecated in paper bag and left it in the hallway, removed shirt and not responsive to direction to cover up. postured at staff attempting to enforce limits. 12/17: no change in presentation. continue current mgmt. filed for commitment. 12/18 continue tx. not taking medications. 12/20: Last night disrobing. Continue to offer medications. Declining these. Court hearing to be scheduled. 12/21: continue tx. Pt's underwear and hospital gown covered in urine, pt instructed to change to clean gown. Pt moved away to his room, gesturing and talking to himself. Per nursing, pt only slept about 2 hrs. Pt declined medications for sleep and psychiatric illness. He pushed RN last night and was disrobing through the night in the [place]. He was spinning, becoming dizzy with unsteady gait, difficult to redirect. 12/22: continue tx. He reports I'm a super, super human being, I don't need to sleep. Pt writing on menu, disorganized to focused and complete task of electing his meals while on the unit. Per nursing, pt did not sleep last night. He was again restless, disrobing at times. He did follow this junior technical writer after when attempted to meet with other pts. Pt needed redirection. 12/23: smearing feces on jeffrey and floor of bathroom last night, refused to change fecally soiled socks, placing fecal material in his doorway, pushing through others to do laps, moving others as they sat in their chairs. took meds this morning for the first time this admission, sound asleep late morning. hearing scheduled for tomorrow. continue current mgmt. 12/24: refusing interview. continued disorganized behavior overnight. committed and meds ordered. 12/25: disrobing in kitchen. if you offer me meds, i have the right to punch you in the stomach. refused PO meds, IMs given as per haley's order. 12/26: opting for IMs. terse, guarded, irritable. 12/27: remains terse and guarded, but taking meds PO as of last NOC. 12/28: no change in presentation or treatment. 12/29: after several days of PO meds, refused again this morning and got IMs. wandering into particular female peer's room repeatedly, putting his clothes in the toilet, urinating while seated at his desk, knocked meds out of RN's hand. put pt on 1:1 for safety, otherwise continue current mgmt. 12/30: IMs again last night for PO refusal. no change in presentation today - terse, avoidant, glaring, minimally responsive. 12/31: still refusing PO meds, getting IMs. no change in presentation. 01/01: still refusing PO meds, getting IMs. no change in presentation. manually removing feces from his anus. demanding nursing staff get naked with him. 01/02: refusing PO meds but passively accepting IMs. 01/03: remains on close obs. still refusing mood stabilizers, receiving ativan and haldol IM 01/04/2023 Patient generally refusing p.o. medication receiving IM antipsychotic 01/05/2023 Patient for an extended period of time is apparently not been cooperative with taking p.o. medication became convinced he just needs multiple supplements. He would clearly benefit from a long-acting injectable chart reviewed patient had ECT in 2008 says secondary to suicidal depression and psychosis and apparently at that time responded quite well he clearly has a bipolar component would benefit from acceptance of Depakote/lithium cannot take in information about his condition. 01/06: message left for kassy re h/o invega. if there is evidence pt has tolerated invega in the past will likely start EVANS sustenna. no change in presentation, still refusing PO meds. 01/07: case d/w kassy, pt has never been on invega to his knowledge. invega sustenna 156 mg given today. IM haldol orders DCed. will change IM ativan to IM valium once it is established that invega causes no intolerable side effects. Reason for continued inpatient stay Substantial Risk for: harm to self, harm to others, inability to function and rapid decompensation Time Spent With Patient Time: Total time managing care of this patient today __25__ minutes.
[2023-01-07] MEDS: Paliperidone Palmitate 156 MG/ML SYRINGE IM (16:19)
[2023-01-07 20:20] VITALS: BP 127/82; PULSE 92; TEMP 36.6; O2SAT 97
[2023-01-08] MEDS: LORazepam 2 MG/ML VIAL IM ×2 (09:10→21:41)
--- NOTE | 2023-01-08 14:08 | P.PNPSI_ITS ---
Subjective Subjective Date of Service: 01/08/23 Reason For Visit: Psychosis Interim History: up in his bathroom. MD attempts to speak with pt, pt simply waves MD away and walks past. per staff, disrobed with door open. refusing PO meds. eating about 50% of meals. wants to buy lottery tickets. Mental Status Exam Mental Status Exam Narrative: ambulating in his room. Pt in street clothes, disheveled. fair eye contact, attentive. No Tics or Tremors. No abnormal involuntary movements. In behavioral control but guarded. affect is flat. no SI/SIBI/HI/AVH expressed. Insight/ Judgment poor. Diagnostics Vital Signs (24Hr): Vital Signs - 24 hr 01/07/23 20:20 Temperature 97.8 F Pulse Rate 92 Blood Pressure 127/82 Pulse Oximetry 97 BMI result Body Mass Index 28.1 Labs 12/14/22 02:33 12/15/22 09:08 Imaging Radiology Impressions: ITS Impressions Cervical Spine CT 12/14/22 08:06 IMPRESSION: 1. No acute intracranial, maxillofacial bone, or cervical abnormalities. 2. Right frontal cephalohematoma, not associated with fracture. 3. Coarse, lobulated calcification in the fourth ventricle, need to be further evaluated by MRI without and with contrast. 4. Degenerative changes in the cervical spine. Face CT 12/14/22 08:06 IMPRESSION: 1. No acute intracranial, maxillofacial bone, or cervical abnormalities. 2. Right frontal cephalohematoma, not associated with fracture. 3. Coarse, lobulated calcification in the fourth ventricle, need to be further evaluated by MRI without and with contrast. 4. Degenerative changes in the cervical spine. Head CT 12/14/22 08:06 IMPRESSION: 1. No acute intracranial, maxillofacial bone, or cervical abnormalities. 2. Right frontal cephalohematoma, not associated with fracture. 3. Coarse, lobulated calcification in the fourth ventricle, need to be further evaluated by MRI without and with contrast. 4. Degenerative changes in the cervical spine. Brain MRI 12/14/22 13:15 IMPRESSION: There is a 1.0 cm densely calcified lobulated lesion centered within the right anterior aspect of the fourth ventricle demonstrating peripheral enhancement. Differential considerations include a calcified choroid plexus cyst, choroid plexus papilloma, or intraventricular meningioma. The fourth ventricle remains patent without evidence of fourth ventricular outflow obstruction. No hydrocephalus. Generalized parenchymal volume loss and nonspecific white matter disease, likely mild chronic microangiopathy. Right frontal scalp hematoma. Medications Medications Current Medications Acetaminophen (Acetaminophen 325 Mg Tablet) 650 mg PO Q6H PRN PRN Reason: Headache/Pain Mild Scale (1-3) Al Hydroxide/Mg Hydroxide (Magnesium Hydrox/Alum Hydrox 30 Ml Oral.Susp) 30 ml PO Q6H PRN PRN Reason: Heartburn/Nausea Carbamazepine (Carbamazepine Er 200 Mg Tab.Er.12h) 200 mg PO DAILY [facility] Last Admin: 01/08/23 10:14 Dose: Not Given Carbamazepine (Carbamazepine Er 200 Mg Tab.Er.12h) 400 mg PO BEDTIME [facility] Last Admin: 01/07/23 20:32 Dose: Not Given Hydroxyzine HCl (Hydroxyzine Hcl 25 Mg Tablet) 25 mg PO Q6H PRN PRN Reason: Anxiety [place] Carbonate ([place] Carbonate Er 450 Mg Tablet.Er) 900 mg PO BEDTIME [facility] Last Admin: 01/07/23 20:32 Dose: Not Given [place] Carbonate ([place] Carbonate 300 Mg Capsule) 600 mg PO DAILY [facility] Last Admin: 01/08/23 10:14 Dose: Not Given Lorazepam (Lorazepam 2 Mg/Ml Vial) 2 mg IM BID PRN PRN Reason: refusal of meds, per [facility] Last Admin: 01/08/23 09:10 Dose: 2 mg Magnesium Hydroxide (Milk Of Magnesia 30 Ml Oral.Susp) 30 ml PO DAILY PRN PRN Reason: Constipation Olanzapine (Olanzapine 10 Mg Tablet) 20 mg PO BID [facility] Last Admin: 01/08/23 10:14 Dose: Not Given Psyllium Hydrophilic Mucilloid (Psyllium Seed 3.4 Gm Powd.Pack) 3.4 gm PO BID [facility] Last Admin: 01/08/23 10:16 Dose: Not Given Trazodone HCl (Trazodone Hcl 50 Mg Tablet) 50 mg PO BEDTIME PRN PRN Reason: Insomnia Trazodone HCl (Trazodone Hcl 50 Mg Tablet) 50 mg PO BEDTIME MRX1 PRN PRN Reason: Insomnia Allergies Allergies Allergy/AdvReac Type Severity Reaction Status Date / Time bupropion [From Wellbutrin] Allergy Mild CAUSES Verified 12/03/22 00:30 SWOLLEN HEAD tetracycline [Tetracycline] Allergy Mild UNKNOWN Verified 12/03/22 00:30 trifluoperazine Allergy Mild UNKNOWN Verified 12/03/22 00:30 [From Stelazine] clozapine [From Clozaril] AdvReac Mild SEIZURES,NE Verified 12/03/22 00:30 UTROPENIA Assessment & Plan Assessment & Plan (1) Schizoaffective disorder, bipolar type: Status: Acute Code(s): F25.0 - Schizoaffective disorder, bipolar type Plan 12/15: offer medications. 12/16: completed commitment paperwork. defecated in paper bag and left it in the hallway, removed shirt and not responsive to direction to cover up. postured at staff attempting to enforce limits. 12/17: no change in presentation. continue current mgmt. filed for commitment. 12/18 continue tx. not taking medications. 12/20: Last night disrobing. Continue to offer medications. Declining these. Court hearing to be scheduled. 12/21: continue tx. Pt's underwear and hospital gown covered in urine, pt instructed to change to clean gown. Pt moved away to his room, gesturing and talking to himself. Per nursing, pt only slept about 2 hrs. Pt declined medications for sleep and psychiatric illness. He pushed RN last night and was disrobing through the night in the [place]. He was spinning, becoming dizzy with unsteady gait, difficult to redirect. 12/22: continue tx. He reports I'm a super, super human being, I don't need to sleep. Pt writing on menu, disorganized to focused and complete task of electing his meals while on the unit. Per nursing, pt did not sleep last night. He was again restless, disrobing at times. He did follow this web content writer after when attempted to meet with other pts. Pt needed redirection. 12/23: smearing feces on jeffrey and floor of bathroom last night, refused to change fecally soiled socks, placing fecal material in his doorway, pushing through others to do laps, moving others as they sat in their chairs. took meds this morning for the first time this admission, sound asleep late morning. hearing scheduled for tomorrow. continue current mgmt. 12/24: refusing interview. continued disorganized behavior overnight. committed and meds ordered. 12/25: disrobing in kitchen. if you offer me meds, i have the right to punch you in the stomach. refused PO meds, IMs given as per haley's order. 12/26: opting for IMs. terse, guarded, irritable. 12/27: remains terse and guarded, but taking meds PO as of last NOC. 12/28: no change in presentation or treatment. 12/29: after several days of PO meds, refused again this morning and got IMs. wandering into particular female peer's room repeatedly, putting his clothes in the toilet, urinating while seated at his desk, knocked meds out of RN's hand. put pt on 1:1 for safety, otherwise continue current mgmt. 12/30: IMs again last night for PO refusal. no change in presentation today - terse, avoidant, glaring, minimally responsive. 12/31: still refusing PO meds, getting IMs. no change in presentation. 01/01: still refusing PO meds, getting IMs. no change in presentation. manually removing feces from his anus. demanding nursing staff get naked with him. 01/02: refusing PO meds but passively accepting IMs. 01/03: remains on close obs. still refusing mood stabilizers, receiving ativan and haldol IM 01/04/2023 Patient generally refusing p.o. medication receiving IM antipsychotic 01/05/2023 Patient for an extended period of time is apparently not been cooperative with taking p.o. medication became convinced he just needs multiple supplements. He would clearly benefit from a long-acting injectable chart reviewed patient had ECT in 2008 says secondary to suicidal depression and psychosis and apparently at that time responded quite well he clearly has a bipolar component would benefit from acceptance of Depakote/lithium cannot take in information about his condition. 01/06: message left for kassy re h/o invega. if there is evidence pt has tolerated invega in the past will likely start EVANS sustenna. no change in presentation, still refusing PO meds. 01/07: case d/w kassy, pt has never been on invega to his knowledge. invega sustenna 156 mg given today. IM haldol orders DCed. will change IM ativan to IM valium once it is established that invega causes no intolerable side effects. 01/08: no change in presentation. continue current mgmt for now. Reason for continued inpatient stay Substantial Risk for: harm to self, harm to others, inability to function and rapid decompensation Time Spent With Patient Time: Total time managing care of this patient today ____ minutes.
[2023-01-08 20:20] VITALS: RESP 18
[2023-01-09] MEDS: LORazepam 2 MG/ML VIAL IM ×2 (09:04→22:36)
--- NOTE | 2023-01-09 14:40 | P.PNPSI_ITS ---
Subjective Subjective Date of Service: 01/09/23 Reason For Visit: Psychosis Interim History: Patient seen. Continues on 1:1. Patient difficult to engage. Sitting in his bed. Intense stare. Angry looking. Answers loudly and monosyllabically that he is doing well enough. Refusing PO meds. eating about 50% of meals. Review of Systems Review of Systems patient refused to answer review system Yes Unobtainable due to mental status Mental Status Exam Mental Status Exam Narrative: ambulating in his room. Pt in street clothes, disheveled. fair eye contact, attentive. No Tics or Tremors. No abnormal involuntary movements. In behavioral control but guarded. affect is flat. no SI/SIBI/HI/AVH expressed. Insight/ Judgment poor. Patient Appearance: Disheveled Patient Orientation: Person and Place Level of Consciousness: Awake Patient Behavior: Guarded and Belligerent Behavior Comments: Somewhat less agitated was able to play scrabble for period of time Mood Description: Labile, Angry and Apprehensive Affect Description: Depressed and Apprehensive Patient Cognition Impaired: Yes Ability to Follow Directions: Poor Speech Pattern: Impoverished Memory Description: Recent Impaired Diagnostics Vital Signs (24Hr): Vital Signs - 24 hr 01/08/23 20:20 Respiratory Rate 18 BMI result Body Mass Index 28.1 Labs 12/14/22 02:33 12/15/22 09:08 Imaging Radiology Impressions: ITS Impressions Cervical Spine CT 12/14/22 08:06 IMPRESSION: 1. No acute intracranial, maxillofacial bone, or cervical abnormalities. 2. Right frontal cephalohematoma, not associated with fracture. 3. Coarse, lobulated calcification in the fourth ventricle, need to be further evaluated by MRI without and with contrast. 4. Degenerative changes in the cervical spine. Face CT 12/14/22 08:06 IMPRESSION: 1. No acute intracranial, maxillofacial bone, or cervical abnormalities. 2. Right frontal cephalohematoma, not associated with fracture. 3. Coarse, lobulated calcification in the fourth ventricle, need to be further evaluated by MRI without and with contrast. 4. Degenerative changes in the cervical spine. Head CT 12/14/22 08:06 IMPRESSION: 1. No acute intracranial, maxillofacial bone, or cervical abnormalities. 2. Right frontal cephalohematoma, not associated with fracture. 3. Coarse, lobulated calcification in the fourth ventricle, need to be further evaluated by MRI without and with contrast. 4. Degenerative changes in the cervical spine. Brain MRI 12/14/22 13:15 IMPRESSION: There is a 1.0 cm densely calcified lobulated lesion centered within the right anterior aspect of the fourth ventricle demonstrating peripheral enhancement. Differential considerations include a calcified choroid plexus cyst, choroid plexus papilloma, or intraventricular meningioma. The fourth ventricle remains patent without evidence of fourth ventricular outflow obstruction. No hydrocephalus. Generalized parenchymal volume loss and nonspecific white matter disease, likely mild chronic microangiopathy. Right frontal scalp hematoma. Medications Medications Current Medications Acetaminophen (Acetaminophen 325 Mg Tablet) 650 mg PO Q6H PRN PRN Reason: Headache/Pain Mild Scale (1-3) Al Hydroxide/Mg Hydroxide (Magnesium Hydrox/Alum Hydrox 30 Ml Oral.Susp) 30 ml PO Q6H PRN PRN Reason: Heartburn/Nausea Carbamazepine (Carbamazepine Er 200 Mg Tab.Er.12h) 200 mg PO DAILY [facility] Last Admin: 01/09/23 09:07 Dose: Not Given Carbamazepine (Carbamazepine Er 200 Mg Tab.Er.12h) 400 mg PO BEDTIME [facility] Last Admin: 01/08/23 22:08 Dose: Not Given Hydroxyzine HCl (Hydroxyzine Hcl 25 Mg Tablet) 25 mg PO Q6H PRN PRN Reason: Anxiety [place] Carbonate ([place] Carbonate Er 450 Mg Tablet.Er) 900 mg PO BEDTIME [facility] Last Admin: 01/08/23 22:08 Dose: Not Given [place] Carbonate ([place] Carbonate 300 Mg Capsule) 600 mg PO DAILY [facility] Last Admin: 01/09/23 09:07 Dose: Not Given Lorazepam (Lorazepam 2 Mg/Ml Vial) 2 mg IM BID PRN PRN Reason: refusal of meds, per [facility] Last Admin: 01/09/23 09:04 Dose: 2 mg Magnesium Hydroxide (Milk Of Magnesia 30 Ml Oral.Susp) 30 ml PO DAILY PRN PRN Reason: Constipation Olanzapine (Olanzapine 10 Mg Tablet) 20 mg PO BID [facility] Last Admin: 01/09/23 09:07 Dose: Not Given Psyllium Hydrophilic Mucilloid (Psyllium Seed 3.4 Gm Powd.Pack) 3.4 gm PO BID [facility] Last Admin: 01/09/23 09:07 Dose: Not Given Trazodone HCl (Trazodone Hcl 50 Mg Tablet) 50 mg PO BEDTIME PRN PRN Reason: Insomnia Trazodone HCl (Trazodone Hcl 50 Mg Tablet) 50 mg PO BEDTIME MRX1 PRN PRN Reason: Insomnia Allergies Allergies Allergy/AdvReac Type Severity Reaction Status Date / Time bupropion [From Wellbutrin] Allergy Mild CAUSES Verified 12/03/22 00:30 SWOLLEN HEAD tetracycline [Tetracycline] Allergy Mild UNKNOWN Verified 12/03/22 00:30 trifluoperazine Allergy Mild UNKNOWN Verified 12/03/22 00:30 [From Stelazine] clozapine [From Clozaril] AdvReac Mild SEIZURES,NE Verified 12/03/22 00:30 UTROPENIA Assessment & Plan Assessment & Plan (1) Schizoaffective disorder, bipolar type: Status: Acute Code(s): F25.0 - Schizoaffective disorder, bipolar type Plan 12/15: offer medications. 12/16: completed commitment paperwork. defecated in paper bag and left it in the hallway, removed shirt and not responsive to direction to cover up. postured at staff attempting to enforce limits. 12/17: no change in presentation. continue current mgmt. filed for commitment. 12/18 continue tx. not taking medications. 12/20: Last night disrobing. Continue to offer medications. Declining these. Court hearing to be scheduled. 12/21: continue tx. Pt's underwear and hospital gown covered in urine, pt instructed to change to clean gown. Pt moved away to his room, gesturing and talking to himself. Per nursing, pt only slept about 2 hrs. Pt declined medications for sleep and psychiatric illness. He pushed RN last night and was disrobing through the night in the [place]el[place]. He was spinning, becoming dizzy with unsteady gait, difficult to redirect. 12/22: continue tx. He reports I'm a super, super human being, I don't need to sleep. Pt writing on menu, disorganized to focused and complete task of electing his meals while on the unit. Per nursing, pt did not sleep last night. He was again restless, disrobing at times. He did follow this gag writer after when attempted to meet with other pts. Pt needed redirection. 12/23: smearing feces on jeffrey and floor of bathroom last night, refused to change fecally soiled socks, placing fecal material in his doorway, pushing through others to do laps, moving others as they sat in their chairs. took meds this morning for the first time this admission, sound asleep late morning. hearing scheduled for tomorrow. continue current mgmt. 12/24: refusing interview. continued disorganized behavior overnight. committed and meds ordered. 12/25: disrobing in kitchen. if you offer me meds, i have the right to punch you in the stomach. refused PO meds, IMs given as per haley's order. 12/26: opting for IMs. terse, guarded, irritable. 12/27: remains terse and guarded, but taking meds PO as of last NOC. 12/28: no change in presentation or treatment. 12/29: after several days of PO meds, refused again this morning and got IMs. wandering into particular female peer's room repeatedly, putting his clothes in the toilet, urinating while seated at his desk, knocked meds out of RN's hand. put pt on 1:1 for safety, otherwise continue current mgmt. 12/30: IMs again last night for PO refusal. no change in presentation today - terse, avoidant, glaring, minimally responsive. 12/31: still refusing PO meds, getting IMs. no change in presentation. 01/01: still refusing PO meds, getting IMs. no change in presentation. m anually removing feces from his anus. demanding nursing staff get naked with him. 01/02: refusing PO meds but passively accepting IMs. 01/03: remains on close obs. still refusing mood stabilizers, receiving ativan and haldol IM 01/04/2023 Patient generally refusing p.o. medication receiving IM antipsychotic 01/05/2023 Patient for an extended period of time is apparently not been cooperative with taking p.o. medication became convinced he just needs multiple supplements. He would clearly benefit from a long-acting injectable chart reviewed patient had ECT in 2008 says secondary to suicidal depression and psychosis and apparently at that time responded quite well he clearly has a bipolar component would benefit from acceptance of Depakote/lithium cannot take in information about his condition. 01/06: message left for kassy re h/o invega. if there is evidence pt has tolerated invega in the past will likely start EVANS sustenna. no change in presentation, still refusing PO meds. 01/07: case d/w kassy, pt has never been on invega to his knowledge. invega sustenna 156 mg given today. IM haldol orders DCed. will change IM ativan to IM valium once it is established that invega causes no intolerable side effects. 01/08: no change in presentation. continue current mgmt for now. 01/09: no change in presentation. continue current mgmt for now. Reason for continued inpatient stay Substantial Risk for: harm to self, harm to others, inability to function and rapid decompensation Time Spent With Patient Time: Total time managing care of this patient today ____ minutes.
[2023-01-09 18:00] VITALS: RESP 18
[2023-01-10] MEDS: LORazepam 2 MG/ML VIAL IM ×2 (10:11→22:35)
--- NOTE | 2023-01-10 10:56 | HO.PSYCHPN ---
Subjective Subjective Date of Service: 01/10/23 Reason For Visit: Psychosis Interim History: Patient seen. Continues on 1:1. Patient difficult to engage. Per RN last 24 hours was more disorganized. He urinated on the floor in the bathroom and reportedly had a bowel movement on the floor as well. When asked by this repairer typewriter what happened he said it's a sign of the medication are causing withdrawal of my senility RN impression is he is worse since off Haldol and receiving the Invega Sustenna.He threw a box of Kleenex when offered it by the nurse. He was laying in bed and said I am doing well enough to get by. Refusing PO meds. Review of Systems Review of Systems patient refused to answer review system Yes Unobtainable due to mental status Mental Status Exam Mental Status Exam Narrative: ambulating in his room. Pt in street clothes, disheveled. fair eye contact, attentive. No Tics or Tremors. No abnormal involuntary movements. In behavioral control but guarded. affect is flat. no SI/SIBI/HI/AVH expressed. Insight/ Judgment poor. Patient Appearance: Disheveled Patient Orientation: Person and Place Level of Consciousness: Awake Patient Behavior: Guarded and Belligerent Behavior Comments: Somewhat less agitated was able to play scrabble for period of time Mood Description: Labile, Angry and Apprehensive Affect Description: Depressed and Apprehensive Patient Cognition Impaired: Yes Ability to Follow Directions: Poor Speech Pattern: Impoverished Memory Description: Recent Impaired Diagnostics Vital Signs (24Hr): Vital Signs - 24 hr 01/09/23 18:00 Respiratory Rate 18 BMI result Body Mass Index 28.1 Labs 12/14/22 02:33 12/15/22 09:08 Imaging Radiology Impressions: ITS Impressions Cervical Spine CT 12/14/22 08:06 IMPRESSION: 1. No acute intracranial, maxillofacial bone, or cervical abnormalities. 2. Right frontal cephalohematoma, not associated with fracture. 3. Coarse, lobulated calcification in the fourth ventricle, need to be further evaluated by MRI without and with contrast. 4. Degenerative changes in the cervical spine. Face CT 12/14/22 08:06 IMPRESSION: 1. No acute intracranial, maxillofacial bone, or cervical abnormalities. 2. Right frontal cephalohematoma, not associated with fracture. 3. Coarse, lobulated calcification in the fourth ventricle, need to be further evaluated by MRI without and with contrast. 4. Degenerative changes in the cervical spine. Head CT 12/14/22 08:06 IMPRESSION: 1. No acute intracranial, maxillofacial bone, or cervical abnormalities. 2. Right frontal cephalohematoma, not associated with fracture. 3. Coarse, lobulated calcification in the fourth ventricle, need to be further evaluated by MRI without and with contrast. 4. Degenerative changes in the cervical spine. Brain MRI 12/14/22 13:15 IMPRESSION: There is a 1.0 cm densely calcified lobulated lesion centered within the right anterior aspect of the fourth ventricle demonstrating peripheral enhancement. Differential considerations include a calcified choroid plexus cyst, choroid plexus papilloma, or intraventricular meningioma. The fourth ventricle remains patent without evidence of fourth ventricular outflow obstruction. No hydrocephalus. Generalized parenchymal volume loss and nonspecific white matter disease, likely mild chronic microangiopathy. Right frontal scalp hematoma. Medications Medications Current Medications Acetaminophen (Acetaminophen 325 Mg Tablet) 650 mg PO Q6H PRN PRN Reason: Headache/Pain Mild Scale (1-3) Al Hydroxide/Mg Hydroxide (Magnesium Hydrox/Alum Hydrox 30 Ml Oral.Susp) 30 ml PO Q6H PRN PRN Reason: Heartburn/Nausea Carbamazepine (Carbamazepine Er 200 Mg Tab.Er.12h) 200 mg PO DAILY [facility] Last Admin: 01/10/23 09:56 Dose: Not Given Carbamazepine (Carbamazepine Er 200 Mg Tab.Er.12h) 400 mg PO BEDTIME [facility] Last Admin: 01/09/23 22:40 Dose: Not Given Hydroxyzine HCl (Hydroxyzine Hcl 25 Mg Tablet) 25 mg PO Q6H PRN PRN Reason: Anxiety Freeborn Carbonate (Freeborn Carbonate Er 450 Mg Tablet.Er) 900 mg PO BEDTIME [facility] Last Admin: 01/09/23 22:40 Dose: Not Given Freeborn Carbonate (Freeborn Carbonate 300 Mg Capsule) 600 mg PO DAILY [facility] Last Admin: 01/10/23 09:56 Dose: Not Given Lorazepam (Lorazepam 2 Mg/Ml Vial) 2 mg IM BID PRN PRN Reason: refusal of meds, per haley's Last Admin: 01/10/23 10:11 Dose: 2 mg Magnesium Hydroxide (Milk Of Magnesia 30 Ml Oral.Susp) 30 ml PO DAILY PRN PRN Reason: Constipation Olanzapine (Olanzapine 10 Mg Tablet) 20 mg PO BID [facility] Last Admin: 01/10/23 09:56 Dose: Not Given Psyllium Hydrophilic Mucilloid (Psyllium Seed 3.4 Gm Powd.Pack) 3.4 gm PO BID [facility] Last Admin: 01/10/23 09:57 Dose: Not Given Trazodone HCl (Trazodone Hcl 50 Mg Tablet) 50 mg PO BEDTIME PRN PRN Reason: Insomnia Trazodone HCl (Trazodone Hcl 50 Mg Tablet) 50 mg PO BEDTIME MRX1 PRN PRN Reason: Insomnia Allergies Allergies Allergy/AdvReac Type Severity Reaction Status Date / Time bupropion [From Wellbutrin] Allergy Mild CAUSES Verified 12/03/22 00:30 SWOLLEN HEAD tetracycline [Tetracycline] Allergy Mild UNKNOWN Verified 12/03/22 00:30 trifluoperazine Allergy Mild UNKNOWN Verified 12/03/22 00:30 [From Stelazine] clozapine [From Clozaril] AdvReac Mild SEIZURES,NE Verified 12/03/22 00:30 UTROPENIA Assessment & Plan Assessment & Plan (1) Schizoaffective disorder, bipolar type: Status: Acute Code(s): F25.0 - Schizoaffective disorder, bipolar type Plan 12/15: offer medications. 12/16: completed commitment paperwork. defecated in paper bag and left it in the hallway, removed shirt and not responsive to direction to cover up. postured at staff attempting to enforce limits. 12/17: no change in presentation. continue current mgmt. filed for commitment. 12/18 continue tx. not taking medications. 12/20: Last night disrobing. Continue to offer medications. Declining these. Court hearing to be scheduled. 12/21: continue tx. Pt's underwear and hospital gown covered in urine, pt instructed to change to clean gown. Pt moved away to his room, gesturing and talking to himself. Per nursing, pt only slept about 2 hrs. Pt declined medications for sleep and psychiatric illness. He pushed RN last night and was disrobing through the night in the [place]el[place]. He was spinning, becoming dizzy with unsteady gait, difficult to redirect. 12/22: continue tx. He reports I'm a super, super human being, I don't need to sleep. Pt writing on menu, disorganized to focused and complete task of electing his meals while on the unit. Per nursing, pt did not sleep last night. He was again restless, disrobing at times. He did follow this repairer typewriter after when attempted to meet with other pts. Pt needed redirection. 12/23: smearing feces on jeffrey and floor of bathroom last night, refused to change fecally soiled socks, placing fecal material in his doorway, pushing through others to do laps, moving others as they sat in their chairs. took meds this morning for the first time this admission, sound asleep late morning. hearing scheduled for tomorrow. continue current mgmt. 12/24: refusing interview. continued disorganized behavior overnight. committed and meds ordered. 12/25: disrobing in kitchen. if you offer me meds, i have the right to punch you in the stomach. refused PO meds, IMs given as per haley's order. 12/26: opting for IMs. terse, guarded, irritable. 12/27: remains terse and guarded, but taking meds PO as of last NOC. 12/28: no change in presentation or treatment. 12/29: after several days of PO meds, refused again this morning and got IMs. wandering into particular female peer's room repeatedly, putting his clothes in the toilet, urinating while seated at his desk, knocked meds out of RN's hand. put pt on 1:1 for safety, otherwise continue current mgmt. 12/30: IMs again last night for PO refusal. no change in presentation today - terse, avoidant, glaring, minimally responsive. 12/31: still refusing PO meds, getting IMs. no change in presentation. 01/01: still refusing PO meds, getting IMs. no change in presentation. manually removing feces from his anus. demanding nursing staff get naked with him. 01/02: refusing PO meds but passively accepting IMs. 01/03: remains on close obs. still refusing mood stabilizers, receiving ativan and haldol IM 01/04/2023 Patient generally refusing p.o. medication receiving IM antipsychotic 01/05/2023 Patient for an extended period of time is apparently not been cooperative with taking p.o. medication became convinced he just needs multiple supplements. He would clearly benefit from a long-acting injectable chart reviewed patient had ECT in 2008 says secondary to suicidal depression and psychosis and apparently at that time responded quite well he clearly has a bipolar component would benefit from acceptance of Depakote/lithium cannot take in information about his condition. 01/06: message left for cubamike re h/o invega. if there is evidence pt has tolerated invega in the past will likely start EVANS sustenna. no change in presentation, still refusing PO meds. 01/07: case d/w kassy, pt has never been on invega to his knowledge. invega sustenna 156 mg given today. IM haldol orders DCed. will change IM ativan to IM valium once it is established that invega causes no intolerable side effects. 01/08: no change in presentation. continue current mgmt for now. 01/09: no change in presentation. continue current mgmt for now. 01/10: no change in presentation. continue current mgmt for now. Consider reintroducing Haldol while Invega takes effect. Reason for continued inpatient stay Substantial Risk for: harm to others, inability to function and rapid decompensation Time Spent With Patient Time: Total time managing care of this patient today ____ minutes.
--- NOTE | 2023-01-10 22:42 | PC.NURSE ---
Eriberto refused HS medication, Given Ativan 2mg IM to left buttocks.
--- NOTE | 2023-01-11 01:50 | PC.NURSE ---
Eriberto has disrobed and is attempting to come into the hallway naked. Patient redirected several times to stay in his room.
[2023-01-11] MEDS: LORazepam 2 MG/ML VIAL IM (10:31)
--- NOTE | 2023-01-11 13:39 | P.PNPSI_ITS ---
Subjective Subjective Date of Service: 01/11/23 Reason For Visit: Psychosis Interim History: no eye contact, declines to speak with MD. per staff, still refusing PO meds. unkempt, visible. watching TV. has to be redirected from running in the skelton. RIS. eating. incontinent of urine. did not sleep at all last NOC. Mental Status Exam Mental Status Exam Narrative: seated in milieu. Pt in street clothes, disheveled. no eye contact, attentive. No Tics or Tremors. No abnormal involuntary movements. In behavioral control but guarded. affect is flat. no SI/SIBI/HI/AVH expressed. Insight/ Judgment poor. Diagnostics Vital Signs (24Hr): BMI result Body Mass Index 28.1 Labs 12/14/22 02:33 12/15/22 09:08 Imaging Radiology Impressions: ITS Impressions Cervical Spine CT 12/14/22 08:06 IMPRESSION: 1. No acute intracranial, maxillofacial bone, or cervical abnormalities. 2. Right frontal cephalohematoma, not associated with fracture. 3. Coarse, lobulated calcification in the fourth ventricle, need to be further evaluated by MRI without and with contrast. 4. Degenerative changes in the cervical spine. Face CT 12/14/22 08:06 IMPRESSION: 1. No acute intracranial, maxillofacial bone, or cervical abnormalities. 2. Right frontal cephalohematoma, not associated with fracture. 3. Coarse, lobulated calcification in the fourth ventricle, need to be further evaluated by MRI without and with contrast. 4. Degenerative changes in the cervical spine. Head CT 12/14/22 08:06 IMPRESSION: 1. No acute intracranial, maxillofacial bone, or cervical abnormalities. 2. Right frontal cephalohematoma, not associated with fracture. 3. Coarse, lobulated calcification in the fourth ventricle, need to be further evaluated by MRI without and with contrast. 4. Degenerative changes in the cervical spine. Brain MRI 12/14/22 13:15 IMPRESSION: There is a 1.0 cm densely calcified lobulated lesion centered within the right anterior aspect of the fourth ventricle demonstrating peripheral enhancement. Differential considerations include a calcified choroid plexus cyst, choroid plexus papilloma, or intraventricular meningioma. The fourth ventricle remains patent without evidence of fourth ventricular outflow obstruction. No hydrocephalus. Generalized parenchymal volume loss and nonspecific white matter disease, likely mild chronic microangiopathy. Right frontal scalp hematoma. Medications Medications Current Medications Acetaminophen (Acetaminophen 325 Mg Tablet) 650 mg PO Q6H PRN PRN Reason: Headache/Pain Mild Scale (1-3) Al Hydroxide/Mg Hydroxide (Magnesium Hydrox/Alum Hydrox 30 Ml Oral.Susp) 30 ml PO Q6H PRN PRN Reason: Heartburn/Nausea Carbamazepine (Carbamazepine Er 200 Mg Tab.Er.12h) 200 mg PO DAILY [facility] Last Admin: 01/11/23 09:29 Dose: Not Given Carbamazepine (Carbamazepine Er 200 Mg Tab.Er.12h) 400 mg PO BEDTIME [facility] Last Admin: 01/10/23 22:42 Dose: Not Given Diazepam (Diazepam 10 Mg/2 Ml Cartridge) 10 mg IM BID PRN PRN Reason: refusal of PO medications Hydroxyzine HCl (Hydroxyzine Hcl 25 Mg Tablet) 25 mg PO Q6H PRN PRN Reason: Anxiety Elmer Carbonate (Elmer Carbonate Er 450 Mg Tablet.Er) 900 mg PO BEDTIME [facility] Last Admin: 01/10/23 22:41 Dose: Not Given Elmer Carbonate (Elmer Carbonate 300 Mg Capsule) 600 mg PO DAILY [facility] Last Admin: 01/11/23 09:29 Dose: Not Given Magnesium Hydroxide (Milk Of Magnesia 30 Ml Oral.Susp) 30 ml PO DAILY PRN PRN Reason: Constipation Olanzapine (Olanzapine 10 Mg Tablet) 20 mg PO BID [facility] Last Admin: 01/11/23 09:29 Dose: Not Given Psyllium Hydrophilic Mucilloid (Psyllium Seed 3.4 Gm Powd.Pack) 3.4 gm PO BID [facility] Last Admin: 01/11/23 09:30 Dose: Not Given Trazodone HCl (Trazodone Hcl 50 Mg Tablet) 50 mg PO BEDTIME PRN PRN Reason: Insomnia Trazodone HCl (Trazodone Hcl 50 Mg Tablet) 50 mg PO BEDTIME MRX1 PRN PRN Reason: Insomnia Allergies Allergies Allergy/AdvReac Type Severity Reaction Status Date / Time bupropion [From Wellbutrin] Allergy Mild CAUSES Verified 12/03/22 00:30 SWOLLEN HEAD tetracycline [Tetracycline] Allergy Mild UNKNOWN Verified 12/03/22 00:30 trifluoperazine Allergy Mild UNKNOWN Verified 12/03/22 00:30 [From Stelazine] clozapine [From Clozaril] AdvReac Mild SEIZURES,NE Verified 12/03/22 00:30 UTROPENIA Assessment & Plan Assessment & Plan (1) Schizoaffective disorder, bipolar type: Status: Acute Code(s): F25.0 - Schizoaffective disorder, bipolar type Plan 12/15: offer medications. 12/16: completed commitment paperwork. defecated in paper bag and left it in the hallway, removed shirt and not responsive to direction to cover up. postured at staff attempting to enforce limits. 12/17: no change in presentation. continue current mgmt. filed for commitment. 12/18 continue tx. not taking medications. 12/20: Last night disrobing. Continue to offer medications. Declining these. Court hearing to be scheduled. 12/21: continue tx. Pt's underwear and hospital gown covered in urine, pt instructed to change to clean gown. Pt moved away to his room, gesturing and talking to himself. Per nursing, pt only slept about 2 hrs. Pt declined medications for sleep and psychiatric illness. He pushed RN last night and was disrobing through the night in the [place]el[place]. He was spinning, becoming dizzy with unsteady gait, difficult to redirect. 12/22: continue tx. He reports I'm a super, super human being, I don't need to sleep. Pt writing on menu, disorganized to focused and complete task of electing his meals while on the unit. Per nursing, pt did not sleep last night. He was again restless, disrobing at times. He did follow this marketing copywriter after when attempted to meet with other pts. Pt needed redirection. 12/23: smearing feces on jeffrey and floor of bathroom last night, refused to change fecally soiled socks, placing fecal material in his doorway, pushing through others to do laps, moving others as they sat in their chairs. took meds this morning for the first time this admission, sound asleep late morning. hearing scheduled for tomorrow. continue current mgmt. 12/24: refusing interview. continued disorganized behavior overnight. committed and meds ordered. 12/25: disrobing in kitchen. if you offer me meds, i have the right to punch you in the stomach. refused PO meds, IMs given as per haley's order. 12/26: opting for IMs. terse, guarded, irritable. 12/27: remains terse and guarded, but taking meds PO as of last NOC. 12/28: no change in presentation or treatment. 12/29: after several days of PO meds, refused again this morning and got IMs. wandering into particular female peer's room repeatedly, putting his clothes in the toilet, urinating while seated at his desk, knocked meds out of RN's hand. put pt on 1:1 for safety, otherwise continue current mgmt. 12/30: IMs again last night for PO refusal. no change in presentation today - terse, avoidant, glaring, minimally responsive. 12/31: still refusing PO meds, getting IMs. no change in presentation. 01/01: still refusing PO meds, getting IMs. no change in presentation. manually removing feces from his anus. demanding nursing staff get naked with him. 01/02: refusing PO meds but passively accepting IMs. 01/03: remains on close obs. still refusing mood stabilizers, receiving ativan and haldol IM 01/04/2023 Patient generally refusing p.o. medication receiving IM antipsychotic 01/05/2023 Patient for an extended period of time is apparently not been cooperative with taking p.o. medication became convinced he just needs multiple supplements. He would clearly benefit from a long-acting injectable chart reviewed patient had ECT in 2008 says secondary to suicidal depression and psychosis and apparently at that time responded quite well he clearly has a bipolar component would benefit from acceptance of Depakote/lithium cannot take in information about his condition. 01/06: message left for kassy re h/o invega. if there is evidence pt has tolerated invega in the past will likely start EVANS sustenna. no change in presentation, still refusing PO meds. 01/07: case d/w kassy pt has never been on invega to his knowledge. invega sustenna 156 mg given today. IM haldol orders DCed. will change IM ativan to IM valium once it is established that invega causes no intolerable side effects. 01/08: no change in presentation. continue current mgmt for now. 01/09: no change in presentation. continue current mgmt for now. 01/10: no change in presentation. continue current mgmt for now. Consider reintroducing Haldol while Invega takes effect. 01/11: does not appear to be suffering any side effects from invega. 234 mg d ose ordered for . will restart second antipsychotic at some point in the next week. DC ativan IM and start valium IM for longer coverage. Reason for continued inpatient stay Substantial Risk for: harm to self, harm to others, inability to function and rapid decompensation Time Spent With Patient Time: Total time managing care of this patient today _25__ minutes.
[2023-01-11 18:00] VITALS: BP 151/85; PULSE 101; RESP 18; TEMP 36.2; O2SAT 98
[2023-01-11] MEDS: diazePAM 10 MG/2 ML CARTRIDGE IM (21:54)
[2023-01-12] MEDS: diazePAM 10 MG/2 ML CARTRIDGE IM ×2 (09:06→21:18)
--- NOTE | 2023-01-12 15:17 | P.PNPSI_ITS ---
Subjective Subjective Date of Service: 01/12/23 Reason For Visit: Psychosis Interim History: no change in presentation. declining to meet with MD, refusing PO meds. per staff, eating and sleeping. accepting IMs. redirections to keep his shirt on. playing board games. Mental Status Exam Mental Status Exam Narrative: seated in milieu. Pt in street clothes, disheveled. no eye contact, attentive. No Tics or Tremors. No abnormal involuntary movements. In behavioral control but guarded. affect is flat. no SI/SIBI/HI/AVH expressed. Insight/ Judgment poor. Diagnostics Vital Signs (24Hr): Vital Signs - 24 hr 01/11/23 18:00 Temperature 97.2 F Pulse Rate 101 H Respiratory Rate 18 Blood Pressure 151/85 H Pulse Oximetry 98 Oxygen Delivery Method Room Air BMI result Body Mass Index 28.1 Labs 12/14/22 02:33 12/15/22 09:08 Imaging Radiology Impressions: ITS Impressions Cervical Spine CT 12/14/22 08:06 IMPRESSION: 1. No acute intracranial, maxillofacial bone, or cervical abnormalities. 2. Right frontal cephalohematoma, not associated with fracture. 3. Coarse, lobulated calcification in the fourth ventricle, need to be further evaluated by MRI without and with contrast. 4. Degenerative changes in the cervical spine. Face CT 12/14/22 08:06 IMPRESSION: 1. No acute intracranial, maxillofacial bone, or cervical abnormalities. 2. Right frontal cephalohematoma, not associated with fracture. 3. Coarse, lobulated calcification in the fourth ventricle, need to be further evaluated by MRI without and with contrast. 4. Degenerative changes in the cervical spine. Head CT 12/14/22 08:06 IMPRESSION: 1. No acute intracranial, maxillofacial bone, or cervical abnormalities. 2. Right frontal cephalohematoma, not associated with fracture. 3. Coarse, lobulated calcification in the fourth ventricle, need to be further evaluated by MRI without and with contrast. 4. Degenerative changes in the cervical spine. Brain MRI 12/14/22 13:15 IMPRESSION: There is a 1.0 cm densely calcified lobulated lesion centered within the right anterior aspect of the fourth ventricle demonstrating peripheral enhancement. Differential considerations include a calcified choroid plexus cyst, choroid plexus papilloma, or intraventricular meningioma. The fourth ventricle remains patent without evidence of fourth ventricular outflow obstruction. No hydrocephalus. Generalized parenchymal volume loss and nonspecific white matter disease, likely mild chronic microangiopathy. Right frontal scalp hematoma. Medications Medications Current Medications Acetaminophen (Acetaminophen 325 Mg Tablet) 650 mg PO Q6H PRN PRN Reason: Headache/Pain Mild Scale (1-3) Al Hydroxide/Mg Hydroxide (Magnesium Hydrox/Alum Hydrox 30 Ml Oral.Susp) 30 ml PO Q6H PRN PRN Reason: Heartburn/Nausea Carbamazepine (Carbamazepine Er 200 Mg Tab.Er.12h) 200 mg PO DAILY [facility] Last Admin: 01/12/23 10:28 Dose: Not Given Carbamazepine (Carbamazepine Er 200 Mg Tab.Er.12h) 400 mg PO BEDTIME [facility] Last Admin: 01/11/23 22:49 Dose: Not Given Diazepam (Diazepam 10 Mg/2 Ml Cartridge) 10 mg IM BID PRN PRN Reason: refusal of PO medications Last Admin: 01/12/23 09:06 Dose: 10 mg Hydroxyzine HCl (Hydroxyzine Hcl 25 Mg Tablet) 25 mg PO Q6H PRN PRN Reason: Anxiety [place] Carbonate ([place] Carbonate Er 450 Mg Tablet.Er) 900 mg PO BEDTIME [facility] Last Admin: 01/11/23 22:49 Dose: Not Given [place] Carbonate ([place] Carbonate 300 Mg Capsule) 600 mg PO DAILY [facility] Last Admin: 01/12/23 10:29 Dose: Not Given Magnesium Hydroxide (Milk Of Magnesia 30 Ml Oral.Susp) 30 ml PO DAILY PRN PRN Reason: Constipation Olanzapine (Olanzapine 10 Mg Tablet) 20 mg PO BID [facility] Last Admin: 01/12/23 10:29 Dose: Not Given Paliperidone Palmitate (Paliperidone Palmitate 234 Mg/1.5 Ml Syringe) 234 mg IM Q30D [facility] Psyllium Hydrophilic Mucilloid (Psyllium Seed 3.4 Gm Powd.Pack) 3.4 gm PO BID [facility] Last Admin: 01/12/23 10:29 Dose: Not Given Trazodone HCl (Trazodone Hcl 50 Mg Tablet) 50 mg PO BEDTIME PRN PRN Reason: Insomnia Trazodone HCl (Trazodone Hcl 50 Mg Tablet) 50 mg PO BEDTIME MRX1 PRN PRN Reason: Insomnia Allergies Allergies Allergy/AdvReac Type Severity Reaction Status Date / Time bupropion [From Wellbutrin] Allergy Mild CAUSES Verified 12/03/22 00:30 SWOLLEN HEAD tetracycline [Tetracycline] Allergy Mild UNKNOWN Verified 12/03/22 00:30 trifluoperazine Allergy Mild UNKNOWN Verified 12/03/22 00:30 [From Stelazine] clozapine [From Clozaril] AdvReac Mild SEIZURES,NE Verified 12/03/22 00:30 UTROPENIA Assessment & Plan Assessment & Plan (1) Schizoaffective disorder, bipolar type: Status: Acute Code(s): F25.0 - Schizoaffective disorder, bipolar type Plan 12/15: offer medications. 12/16: completed commitment paperwork. defecated in paper bag and left it in the hallway, removed shirt and not responsive to direction to cover up. postured at staff attempting to enforce limits. 12/17: no change in presentation. continue current mgmt. filed for commitment. 12/18 continue tx. not taking medications. 12/20: Last night disrobing. Continue to offer medications. Declining these. Court hearing to be scheduled. 12/21: continue tx. Pt's underwear and hospital gown covered in urine, pt instructed to change to clean gown. Pt moved away to his room, gesturing and talking to himself. Per nursing, pt only slept about 2 hrs. Pt declined medications for sleep and psychiatric illness. He pushed RN last night and was disrobing through the night in the [place]el[place]. He was spinning, becoming dizzy with unsteady gait, difficult to redirect. 12/22: continue tx. He reports I'm a super, super human being, I don't need to sleep. Pt writing on menu, disorganized to focused and complete task of electing his meals while on the unit. Per nursing, pt did not sleep last night. He was again restless, disrobing at times. 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 Pt needed redirection. 12/23: smearing feces on jeffrey and floor of bathroom last night, refused to change fecally soiled socks, placing fecal material in his doorway, pushing through others to do laps, moving others as they sat in their chairs. took meds this morning for the first time this admission, sound asleep late morning. hearing scheduled for tomorrow. continue current mgmt. 12/24: refusing interview. continued disorganized behavior overnight. committed and meds ordered. 12/25: disrobing in kitchen. if you offer me meds, i have the right to punch you in the stomach. refused PO meds, IMs given as per haley's order. 12/26: opting for IMs. terse, guarded, irritable. 12/27: remains terse and guarded, but taking meds PO as of last NOC. 12/28: no change in presentation or treatment. 12/29: after several days of PO meds, refused again this morning and got IMs. wandering into particular female peer's room repeatedly, putting his clothes in the toilet, urinating while seated at his desk, knocked meds out of RN's hand. put pt on 1:1 for safety, otherwise continue current mgmt. 12/30: IMs again last night for PO refusal. no change in presentation today - terse, avoidant, glaring, minimally responsive. 12/31: still refusing PO meds, getting IMs. no change in presentation. 01/01: still refusing PO meds, getting IMs. no change in presentation. manually removing feces from his anus. demanding nursing staff get naked with him. 01/02: refusing PO meds but passively accepting IMs. 01/03: remains on close obs. still refusing mood stabilizers, receiving ativan and haldol IM 01/04/2023 Patient generally refusing p.o. medication receiving IM antipsychotic 01/05/2023 Patient for an extended period of time is apparently not been cooperative with taking p.o. medication became convinced he just needs multiple supplements. He would clearly benefit from a long-acting injectable chart reviewed patient had ECT in 2008 says secondary to suicidal depression and psychosis and apparently at that time responded quite well he clearly has a bipolar component would benefit from acceptance of Depakote/lithium cannot take in information about his condition. 01/06: message left for kassy re h/o invega. if there is evidence pt has tolerated invega in the past will likely start EVANS sustenna. no change in presentation, still refusing PO meds. 01/07: case d/w kassy, pt has never been on invega to his knowledge. invega sustenna 156 mg given today. IM haldol orders DCed. will change IM ativan to IM valium once it is established that invega causes no intolerable side effects. 01/08: no change in presentation. continue current mgmt for now. 01/09: no change in presentation. continue current mgmt for now. 01/10: no change in presentation. continue current mgmt for now. Consider reintroducing Haldol while Invega takes effect. 01/11: does not appear to be suffering any side effects from invega. 234 mg dose ordered for . will restart second antipsychotic at some point in the next week. DC ativan IM and start valium IM for longer coverage. 01/12: invega 234 mg IM ordered for tomorrow. continue current mgmt. Reason for continued inpatient stay Substantial Risk for: harm to self, harm to others, inability to function and rapid decompensation Time Spent With Patient Time: Total time managing care of this patient today ____ minutes.
[2023-01-12 19:40] VITALS: BP 144/70; PULSE 98; RESP 18; TEMP 36.6; O2SAT 98
[2023-01-13] MEDS: Paliperidone Palmitate 234 MG/1.5 ML SYRINGE IM (10:54)
[2023-01-13] MEDS: diazePAM 10 MG/2 ML CARTRIDGE IM ×2 (10:54→22:52)
--- NOTE | 2023-01-13 12:28 | P.PNPSI_ITS ---
Subjective Subjective Date of Service: 01/13/23 Reason For Visit: Psychosis Interim History: no change in presentation. seated at desk in his room doing jigsaw puzzle. turns to MD and demands MD exit his room immediately. per staff, withdrawn, napping, playing cards. no dinner. no SI/HI. slept last night. Mental Status Exam Mental Status Exam Narrative: seated at desk in room. Pt in street clothes, disheveled. attentive. No Tics or Tremors. No abnormal involuntary movements. In behavioral control but guarded. affect is flat. no SI/SIBI/HI/AVH expressed. Insight/ Judgment poor. Diagnostics Vital Signs (24Hr): Vital Signs - 24 hr 01/12/23 19:40 Temperature 97.8 F Pulse Rate 98 Respiratory Rate 18 Blood Pressure 144/70 H Pulse Oximetry 98 Oxygen Delivery Method Room Air BMI result Body Mass Index 28.1 Labs 12/14/22 02:33 12/15/22 09:08 Imaging Radiology Impressions: ITS Impressions Cervical Spine CT 12/14/22 08:06 IMPRESSION: 1. No acute intracranial, maxillofacial bone, or cervical abnormalities. 2. Right frontal cephalohematoma, not associated with fracture. 3. Coarse, lobulated calcification in the fourth ventricle, need to be further evaluated by MRI without and with contrast. 4. Degenerative changes in the cervical spine. Face CT 12/14/22 08:06 IMPRESSION: 1. No acute intracranial, maxillofacial bone, or cervical abnormalities. 2. Right frontal cephalohematoma, not associated with fracture. 3. Coarse, lobulated calcification in the fourth ventricle, need to be further evaluated by MRI without and with contrast. 4. Degenerative changes in the cervical spine. Head CT 12/14/22 08:06 IMPRESSION: 1. No acute intracranial, maxillofacial bone, or cervical abnormalities. 2. Right frontal cephalohematoma, not associated with fracture. 3. Coarse, lobulated calcification in the fourth ventricle, need to be further evaluated by MRI without and with contrast. 4. Degenerative changes in the cervical spine. Brain MRI 12/14/22 13:15 IMPRESSION: There is a 1.0 cm densely calcified lobulated lesion centered within the right anterior aspect of the fourth ventricle demonstrating peripheral enhancement. Differential considerations include a calcified choroid plexus cyst, choroid plexus papilloma, or intraventricular meningioma. The fourth ventricle remains patent without evidence of fourth ventricular outflow obstruction. No hydrocephalus. Generalized parenchymal volume loss and nonspecific white matter disease, likely mild chronic microangiopathy. Right frontal scalp hematoma. Medications Medications Current Medications Acetaminophen (Acetaminophen 325 Mg Tablet) 650 mg PO Q6H PRN PRN Reason: Headache/Pain Mild Scale (1-3) Al Hydroxide/Mg Hydroxide (Magnesium Hydrox/Alum Hydrox 30 Ml Oral.Susp) 30 ml PO Q6H PRN PRN Reason: Heartburn/Nausea Carbamazepine (Carbamazepine Er 200 Mg Tab.Er.12h) 200 mg PO DAILY [facility] Last Admin: 01/13/23 09:38 Dose: Not Given Carbamazepine (Carbamazepine Er 200 Mg Tab.Er.12h) 400 mg PO BEDTIME [facility] Last Admin: 01/12/23 21:15 Dose: Not Given Diazepam (Diazepam 10 Mg/2 Ml Cartridge) 10 mg IM BID PRN PRN Reason: refusal of PO medications Last Admin: 01/13/23 10:54 Dose: 10 mg Hydroxyzine HCl (Hydroxyzine Hcl 25 Mg Tablet) 25 mg PO Q6H PRN PRN Reason: Anxiety [place] Carbonate ([place] Carbonate Er 450 Mg Tablet.Er) 900 mg PO BEDTIME [facility] Last Admin: 01/12/23 21:15 Dose: Not Given [place] Carbonate ([place] Carbonate 300 Mg Capsule) 600 mg PO DAILY [facility] Last Admin: 01/13/23 09:38 Dose: Not Given Magnesium Hydroxide (Milk Of Magnesia 30 Ml Oral.Susp) 30 ml PO DAILY PRN PRN Reason: Constipation Olanzapine (Olanzapine 10 Mg Tablet) 20 mg PO BID [facility] Last Admin: 01/13/23 09:39 Dose: Not Given Paliperidone Palmitate (Paliperidone Palmitate 234 Mg/1.5 Ml Syringe) 234 mg IM Q30D [facility] Last Admin: 01/13/23 10:54 Dose: 234 mg Psyllium Hydrophilic Mucilloid (Psyllium Seed 3.4 Gm Powd.Pack) 3.4 gm PO BID [facility] Last Admin: 01/13/23 09:39 Dose: Not Given Trazodone HCl (Trazodone Hcl 50 Mg Tablet) 50 mg PO BEDTIME PRN PRN Reason: Insomnia Trazodone HCl (Trazodone Hcl 50 Mg Tablet) 50 mg PO BEDTIME MRX1 PRN PRN Reason: Insomnia Allergies Allergies Allergy/AdvReac Type Severity Reaction Status Date / Time bupropion [From Wellbutrin] Allergy Mild CAUSES Verified 12/03/22 00:30 SWOLLEN HEAD tetracycline [Tetracycline] Allergy Mild UNKNOWN Verified 12/03/22 00:30 trifluoperazine Allergy Mild UNKNOWN Verified 12/03/22 00:30 [From Stelazine] clozapine [From Clozaril] AdvReac Mild SEIZURES,NE Verified 12/03/22 00:30 UTROPENIA Assessment & Plan Assessment & Plan (1) Schizoaffective disorder, bipolar type: Status: Acute Code(s): F25.0 - Schizoaffective disorder, bipolar type Plan 12/15: offer medications. 12/16: completed commitment paperwork. defecated in paper bag and left it in the hallway, removed shirt and not responsive to direction to cover up. postured at staff attempting to enforce limits. 12/17: no change in presentation. continue current mgmt. filed for commitment. 12/18 continue tx. not taking medications. 12/20: Last night disrobing. Continue to offer medications. Declining these. Court hearing to be scheduled. 12/21: continue tx. Pt's underwear and hospital gown covered in urine, pt instructed to change to clean gown. Pt moved away to his room, gesturing and talking to himself. Per nursing, pt only slept about 2 hrs. Pt declined medicat ions for sleep and psychiatric illness. He pushed RN last night and was disrobing through the night in the skel[place]. He was spinning, becoming dizzy with unsteady gait, difficult to redirect. 12/22: continue tx. He reports I'm a super, super human being, I don't need to sleep. Pt writing on menu, disorganized to focused and complete task of electing his meals while on the unit. Per nursing, pt did not sleep last night. He was again restless, disrobing at times. He did follow this engineering writer after when attempted to meet with other pts. Pt needed redirection. 12/23: smearing feces on jeffrey and floor of bathroom last night, refused to change fecally soiled socks, placing fecal material in his doorway, pushing through others to do laps, moving others as they sat in their chairs. took meds this morning for the first time this admission, sound asleep late morning. hearing scheduled for tomorrow. continue current mgmt. 12/24: refusing interview. continued disorganized behavior overnight. committed and meds ordered. 12/25: disrobing in kitchen. if you offer me meds, i have the right to punch you in the stomach. refused PO meds, IMs given as per haley's order. 12/26: opting for IMs. terse, guarded, irritable. 12/27: remains terse and guarded, but taking meds PO as of last NOC. 12/28: no change in presentation or treatment. 12/29: after several days of PO meds, refused again this morning and got IMs. wandering into particular female peer's room repeatedly, putting his clothes in the toilet, urinating while seated at his desk, knocked meds out of RN's hand. put pt on 1:1 for safety, otherwise continue current mgmt. 12/30: IMs again last night for PO refusal. no change in presentation today - terse, avoidant, glaring, minimally responsive. 12/31: still refusing PO meds, getting IMs. no change in presentation. 01/01: still refusing PO meds, getting IMs. no change in presentation. manually removing feces from his anus. demanding nursing staff get naked with him. 01/02: refusing PO meds but passively accepting IMs. 01/03: remains on close obs. still refusing mood stabilizers, receiving ativan and haldol IM 01/04/2023 Patient generally refusing p.o. medication receiving IM antipsychotic 01/05/2023 Patient for an extended period of time is apparently not been cooperative with taking p.o. medication became convinced he just needs multiple supplements. He would clearly benefit from a long-acting injectable chart reviewed patient had ECT in 2008 says secondary to suicidal depression and psychosis and apparently at that time responded quite well he clearly has a bipolar component would benefit from acceptance of Depakote/lithium cannot take in information about his condition. 01/06: message left for kassy re h/o invega. if there is evidence pt has tolerated invega in the past will likely start EVANS sustenna. no change in presentation, still refusing PO meds. 01/07: case d/w kassy pt has never been on invega to his knowledge. invega sustenna 156 mg given today. IM haldol orders DCed. will change IM ativan to IM valium once it is established that invega causes no intolerable side effects. 01/08: no change in presentation. continue current mgmt for now. 01/09: no change in presentation. continue current mgmt for now. 01/10: no change in presentation. continue current mgmt for now. Consider reintroducing Haldol while Invega takes effect. 01/11: does not appear to be suffering any side effects from invega. 234 mg dose ordered for wed. will restart second antipsychotic at some point in the next week. DC ativan IM and start valium IM for longer coverage. 01/12: invega 234 mg IM ordered for tomorrow. continue current mgmt. 01/13: no change in presentation. continue current mgmt. Reason for continued inpatient stay Substantial Risk for: harm to self, harm to others, inability to function and rapid decompensation Time Spent With Patient Time: Total time managing care of this patient today ____ minutes.
[2023-01-13 20:30] VITALS: RESP 18
[2023-01-14] MEDS: diazePAM 10 MG/2 ML CARTRIDGE IM ×2 (08:37→20:02)
--- NOTE | 2023-01-14 11:41 | PC.NURSE ---
Eriberto Bradford woke up and threw a scrabble game and socks at his sitter with no cause. When I approached to give his meds he said he would kill me if I gave him meds. I told him I could call security or put him in the chair but he would have to take the medication. He refused po meds but he complied with IM contingency valium. Dr Fernandez informed and prn antipsychotic requested. No further orders given.
--- NOTE | 2023-01-14 13:36 | P.PNPSI_ITS ---
Subjective Subjective Date of Service: 01/14/23 Reason For Visit: Psychosis Interim History: observed lying in bed apparently naked under sheet. demanded MD leave his room immediately and stated he did not wish to speak with MD. per staff, pt threw his food/food tray at CO staff in the [place]. spending time naked, appearing briefly naked in the [place]. slept most of the night. Mental Status Exam Mental Status Exam Narrative: lying in bed in room. Pt undressed, disheveled. attentive. No Tics or Tremors. No abnormal involuntary movements. In behavioral control but guarded. affect is flat. no SI/SIBI/HI/AVH expressed. Insight/ Judgment poor. Diagnostics Vital Signs (24Hr): Vital Signs - 24 hr 01/13/23 20:30 Respiratory Rate 18 BMI result Body Mass Index 28.1 Labs 12/14/22 02:33 12/15/22 09:08 Imaging Radiology Impressions: ITS Impressions Cervical Spine CT 12/14/22 08:06 IMPRESSION: 1. No acute intracranial, maxillofacial bone, or cervical abnormalities. 2. Right frontal cephalohematoma, not associated with fracture. 3. Coarse, lobulated calcification in the fourth ventricle, need to be further evaluated by MRI without and with contrast. 4. Degenerative changes in the cervical spine. Face CT 12/14/22 08:06 IMPRESSION: 1. No acute intracranial, maxillofacial bone, or cervical abnormalities. 2. Right frontal cephalohematoma, not associated with fracture. 3. Coarse, lobulated calcification in the fourth ventricle, need to be further evaluated by MRI without and with contrast. 4. Degenerative changes in the cervical spine. Head CT 12/14/22 08:06 IMPRESSION: 1. No acute intracranial, maxillofacial bone, or cervical abnormalities. 2. Right frontal cephalohematoma, not associated with fracture. 3. Coarse, lobulated calcification in the fourth ventricle, need to be further evaluated by MRI without and with contrast. 4. Degenerative changes in the cervical spine. Brain MRI 12/14/22 13:15 IMPRESSION: There is a 1.0 cm densely calcified lobulated lesion centered within the right anterior aspect of the fourth ventricle demonstrating peripheral enhancement. Differential considerations include a calcified choroid plexus cyst, choroid plexus papilloma, or intraventricular meningioma. The fourth ventricle remains patent without evidence of fourth ventricular outflow obstruction. No hydrocephalus. Generalized parenchymal volume loss and nonspecific white matter disease, likely mild chronic microangiopathy. Right frontal scalp hematoma. Medications Medications Current Medications Acetaminophen (Acetaminophen 325 Mg Tablet) 650 mg PO Q6H PRN PRN Reason: Headache/Pain Mild Scale (1-3) Al Hydroxide/Mg Hydroxide (Magnesium Hydrox/Alum Hydrox 30 Ml Oral.Susp) 30 ml PO Q6H PRN PRN Reason: Heartburn/Nausea Carbamazepine (Carbamazepine Er 200 Mg Tab.Er.12h) 200 mg PO DAILY [facility] Last Admin: 01/14/23 10:05 Dose: Not Given Carbamazepine (Carbamazepine Er 200 Mg Tab.Er.12h) 400 mg PO BEDTIME [facility] Last Admin: 01/13/23 22:55 Dose: Not Given Diazepam (Diazepam 10 Mg/2 Ml Cartridge) 10 mg IM BID PRN PRN Reason: refusal of PO medications Last Admin: 01/14/23 08:37 Dose: 10 mg Hydroxyzine HCl (Hydroxyzine Hcl 25 Mg Tablet) 25 mg PO Q6H PRN PRN Reason: Anxiety [place] Carbonate ([place] Carbonate Er 450 Mg Tablet.Er) 900 mg PO BEDTIME [facility] Last Admin: 01/13/23 22:55 Dose: Not Given [place] Carbonate ([place] Carbonate 300 Mg Capsule) 600 mg PO DAILY [facility] Last Admin: 01/14/23 10:05 Dose: Not Given Magnesium Hydroxide (Milk Of Magnesia 30 Ml Oral.Susp) 30 ml PO DAILY PRN PRN Reason: Constipation Olanzapine (Olanzapine 10 Mg Tablet) 20 mg PO BID [facility] Last Admin: 01/14/23 10:05 Dose: Not Given Paliperidone Palmitate (Paliperidone Palmitate 234 Mg/1.5 Ml Syringe) 234 mg IM Q30D [facility] Last Admin: 01/13/23 10:54 Dose: 234 mg Psyllium Hydrophilic Mucilloid (Psyllium Seed 3.4 Gm Powd.Pack) 3.4 gm PO BID [facility] Last Admin: 01/14/23 10:05 Dose: Not Given Trazodone HCl (Trazodone Hcl 50 Mg Tablet) 50 mg PO BEDTIME PRN PRN Reason: Insomnia Trazodone HCl (Trazodone Hcl 50 Mg Tablet) 50 mg PO BEDTIME MRX1 PRN PRN Reason: Insomnia Allergies Allergies Allergy/AdvReac Type Severity Reaction Status Date / Time bupropion [From Wellbutrin] Allergy Mild CAUSES Verified 12/03/22 00:30 SWOLLEN HEAD tetracycline [Tetracycline] Allergy Mild UNKNOWN Verified 12/03/22 00:30 trifluoperazine Allergy Mild UNKNOWN Verified 12/03/22 00:30 [From Stelazine] clozapine [From Clozaril] AdvReac Mild SEIZURES,NE Verified 12/03/22 00:30 UTROPENIA Assessment & Plan Assessment & Plan (1) Schizoaffective disorder, bipolar type: Status: Acute Code(s): F25.0 - Schizoaffective disorder, bipolar type Plan 12/15: offer medications. 12/16: completed commitment paperwork. defecated in paper bag and left it in the hallway, removed shirt and not responsive to direction to cover up. postured at staff attempting to enforce limits. 12/17: no change in presentation. continue current mgmt. filed for commitment. 12/18 continue tx. not taking medications. 12/20: Last night disrobing. Continue to offer medications. Declining these. Court hearing to be scheduled. 12/21: continue tx. Pt's underwear and hospital gown covered in urine, pt instructed to change to clean gown. Pt moved away to his room, gesturing and talking to himself. Per nursing, pt only slept about 2 hrs. Pt declined medications for sleep and psychiatric illness. He pushed RN last night and was disrobing through the night in the [place]. He was spinning, becoming dizzy with unsteady gait, difficult to redirect. 12/22: continue tx. He reports I'm a super, super human being, I don't need to sleep. Pt writing on menu, disorganized to focused and complete task of electing his meals while on the unit. Per nursing, pt did not sleep last night. He was again restless, disrobing at times. He did follow this senior mortgage underwriter after when attempted to meet with other pts. Pt needed redirection. 12/23: smearing feces on jeffrey and floor of bathroom last night, refused to change fecally soiled socks, placing fecal material in his doorway, pushing through others to do laps, moving others as they sat in their chairs. took meds this morning for the first time this admission, sound asleep late morning. hearing scheduled for tomorrow. continue current mgmt. 12/24: refusing interview. continued disorganized behavior overnight. committed and meds ordered. 12/25: disrobing in kitchen. if you offer me meds, i have the right to punch you in the stomach. refused PO meds, IMs given as per haley's order. 12/26: opting for IMs. terse, guarded, irritable. 12/27: remains terse and guarded, but taking meds PO as of last NOC. 12/28: no change in presentation or treatment. 12/29: after several days of PO meds, refused again this morning and got IMs. wandering into particular female peer's room repeatedly, putting his clothes in the toilet, urinating while seated at his desk, knocked meds out of RN's hand. put pt on 1:1 for safety, otherwise continue current mgmt. 12/30: IMs again last night for PO refusal. no change in presentation today - terse, avoidant, glaring, minimally responsive. 12/31: still refusing PO meds, getting IMs. no change in presentation. 01/01: still refusing PO meds, getting IMs. no change in presentation. manually removing feces from his anus. demanding nursing staff get naked with him. 01/02: refusing PO meds but passively accepting IMs. 01/03: remains on close obs. still refusing mood stabilizers, receiving ativan and haldol IM 01/04/2023 Patient generally refusing p.o. medication receiving IM antipsychotic 01/05/2023 Patient for an extended period of time is apparently not been cooperative with taking p.o. medication became convinced he just needs multiple supplements. He would clearly benefit from a long-acting injectable chart reviewed patient had ECT in 2008 says secondary to suicidal depression and psychosis and apparently at that time responded quite well he clearly has a bipolar component would benefit from acceptance of Depakote/lithium cannot take in information about his condition. 01/06: message left for kassy re h/o invega. if there is evidence pt has tolerated invega in the past will likely start EVANS sustenna. no change in presentation, still refusing PO meds. 01/07: case d/w kassy, pt has never been on invega to his knowledge. invega sustenna 156 mg given today. IM haldol orders DCed. will change IM ativan to I M valium once it is established that invega causes no intolerable side effects. 01/08: no change in presentation. continue current mgmt for now. 01/09: no change in presentation. continue current mgmt for now. 01/10: no change in presentation. continue current mgmt for now. Consider reintroducing Haldol while Invega takes effect. 01/11: does not appear to be suffering any side effects from invega. 234 mg dose ordered for . will restart second antipsychotic at some point in the next week. DC ativan IM and start valium IM for longer coverage. 01/12: invega 234 mg IM ordered for tomorrow. continue current mgmt. 01/13: no change in presentation. continue current mgmt. 01/14: no change in presentation or mgmt. received invega sustenna 234 mg IM yesterday 01/13. threw food/food tray at [facility] staff, placed on safety tray. Reason for continued inpatient stay Substantial Risk for: harm to self, harm to others, inability to function and rapid decompensation Time Spent With Patient Time: Total time managing care of this patient today ____ minutes.
[2023-01-14 20:19] VITALS: RESP 18
[2023-01-15] MEDS: diazePAM 10 MG/2 ML CARTRIDGE IM ×2 (08:17→21:49)
--- NOTE | 2023-01-15 08:30 | PC.NURSE ---
815am Eriberto was in milieu agitated with no shirt, not responding to redirection by unit staff.. He required security to go to his room. Security was able to verbally redirect him although he was swearing at them and telling them to, go to hell . IM valium 10mg per order in left delt. Incontinent during IM in what appeared to be a purposeful episode on incontinence. Would not participate in changing his clothes requiring RN and security to do it for him.
[2023-01-15] MEDS: OLANZapine 10 MG VIAL 5 MG IM (10:40)
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
[2023-01-15] MEDS: Haloperidol Lactate 5 MG/ML VIAL 10 MG IM (15:34)
[2023-01-15] MEDS: diphenhydrAMINE HCL 50 MG/ML VIAL IM (15:34)
[2023-01-15] MEDS: LORazepam 2 MG/ML VIAL IM (15:35)
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
--- NOTE | 2023-01-15 16:47 | PM.EVENT ---
Event Note Date of Service: 01/15/23 Event Note: Pt was physically aggressive with sitter received medication restraint for aggressive behavior. Patient seen at 1545 vital signs unremarkable blood pressure 135/78 pulse of 82 no respiratory distress patient awake and alert was calmer less agitated Haldol had been ordered by Dr. Fernandez Time Spent With Patient Time: Total time managing care of this patient today ____ minutes.
[2023-01-15 20:52] VITALS: RESP 18
[2023-01-15] MEDS: OLANZapine 10 MG VIAL 7.5 MG IM (21:50)
--- NOTE | 2023-01-15 23:06 | PC.NURSE ---
Eriberto was noted to be resting with his eyes closed at the beginning of the shift. He was up and sitting in the dayroom conversing with a peer at 2145. No behavior issues, appropriate in the milieu. Declined HS meds and per Ephraim order IM meds to be given, verbally stated TW could take the meds and put them where the sun doesn't shine, with firm re-direction he was compliant to have IM meds, no issues, tolerated well. Eriberto noted resting with eyes closed, breathing pattern non-labored at 2300 hours. Continues on close observation.
[2023-01-16] MEDS: OLANZapine 10 MG VIAL 7.5 MG IM ×2 (10:37→21:48)
[2023-01-16] MEDS: diazePAM 10 MG/2 ML CARTRIDGE IM ×2 (10:38→21:49)
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
[2023-01-16 20:46] VITALS: RESP 18
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
[2023-01-17] MEDS: OLANZapine 10 MG VIAL 7.5 MG IM ×2 (07:46→21:46)
[2023-01-17] MEDS: diazePAM 10 MG/2 ML CARTRIDGE IM ×2 (07:51→21:47)
[2023-01-17 10:04] VITALS: BP 125/76; PULSE 89; RESP 18; TEMP 36.6; O2SAT 97
--- NOTE | 2023-01-17 10:15 | HO.PSYCHPN ---
Subjective Subjective Date of Service: 01/17/23 Reason For Visit: Psychosis Subjective Notes: Section 7 and Section 8 Interim History: Nursing staff reported the patient had been refusing medications p.o. and he had been receiving his antipsychotics by IM. He remains grossly disorganized he came out without his shirt and needed to be redirected. He also threw trash to the nursing staff yesterday. On interview remains grossly psychotic. Mental Status Exam Mental Status Exam Patient Appearance: Disheveled and Inappropriate Patient Orientation: Person and Situation Level of Consciousness: Restless and Inappropriate Patient Behavior: Aggressive and Belligerent Mood Description: Apprehensive Affect Description: Blunted Ability to Follow Directions: Poor Speech Pattern: Impoverished and Rambling Hallucinations: Auditory Delusions: Paranoid Ideation and Ideas of Reference Thought Process: Incoherent and Illogical Thought Content: positive for Loose Associations and positive for Incoherent Judgement: Poor Diagnostics Vital Signs (24Hr): Vital Signs - 24 hr 01/16/23 20:46 01/17/23 10:04 Temperature 97.9 F Pulse Rate 89 Respiratory Rate 18 18 Blood Pressure 125/76 Pulse Oximetry 97 Oxygen Delivery Method Room Air BMI result Body Mass Index 28.1 Labs 12/14/22 02:33 12/15/22 09:08 Imaging Radiology Impressions: ITS Impressions Cervical Spine CT 12/14/22 08:06 IMPRESSION: 1. No acute intracranial, maxillofacial bone, or cervical abnormalities. 2. Right frontal cephalohematoma, not associated with fracture. 3. Coarse, lobulated calcification in the fourth ventricle, need to be further evaluated by MRI without and with contrast. 4. Degenerative changes in the cervical spine. Face CT 12/14/22 08:06 IMPRESSION: 1. No acute intracranial, maxillofacial bone, or cervical abnormalities. 2. Right frontal cephalohematoma, not associated with fracture. 3. Coarse, lobulated calcification in the fourth ventricle, need to be further evaluated by MRI without and with contrast. 4. Degenerative changes in the cervical spine. Head CT 12/14/22 08:06 IMPRESSION: 1. No acute intracranial, maxillofacial bone, or cervical abnormalities. 2. Right frontal cephalohematoma, not associated with fracture. 3. Coarse, lobulated calcification in the fourth ventricle, need to be further evaluated by MRI without and with contrast. 4. Degenerative changes in the cervical spine. Brain MRI 12/14/22 13:15 IMPRESSION: There is a 1.0 cm densely calcified lobulated lesion centered within the right anterior aspect of the fourth ventricle demonstrating peripheral enhancement. Differential considerations include a calcified choroid plexus cyst, choroid plexus papilloma, or intraventricular meningioma. The fourth ventricle remains patent without evidence of fourth ventricular outflow obstruction. No hydrocephalus. Generalized parenchymal volume loss and nonspecific white matter disease, likely mild chronic microangiopathy. Right frontal scalp hematoma. Medications Medications Current Medications Acetaminophen (Acetaminophen 325 Mg Tablet) 650 mg PO Q6H PRN PRN Reason: Headache/Pain Mild Scale (1-3) Al Hydroxide/Mg Hydroxide (Magnesium Hydrox/Alum Hydrox 30 Ml Oral.Susp) 30 ml PO Q6H PRN PRN Reason: Heartburn/Nausea Carbamazepine (Carbamazepine Er 200 Mg Tab.Er.12h) 200 mg PO DAILY [facility] Last Admin: 01/17/23 09:00 Dose: Not Given Carbamazepine (Carbamazepine Er 200 Mg Tab.Er.12h) 400 mg PO BEDTIME [facility] Last Admin: 01/16/23 21:17 Dose: Not Given Diazepam (Diazepam 10 Mg/2 Ml Cartridge) 10 mg IM BID PRN PRN Reason: refusal of PO medications Last Admin: 01/17/23 07:51 Dose: 10 mg Hydroxyzine HCl (Hydroxyzine Hcl 25 Mg Tablet) 25 mg PO Q6H PRN PRN Reason: Anxiety [place] Carbonate ([place] Carbonate Er 450 Mg Tablet.Er) 900 mg PO BEDTIME [facility] Last Admin: 01/16/23 21:17 Dose: Not Given [place] Carbonate ([place] Carbonate 300 Mg Capsule) 600 mg PO DAILY [facility] Last Admin: 01/17/23 09:00 Dose: Not Given Magnesium Hydroxide (Milk Of Magnesia 30 Ml Oral.Susp) 30 ml PO DAILY PRN PRN Reason: Constipation Olanzapine (Olanzapine 10 Mg Tablet) 20 mg PO BID [facility] Last Admin: 01/17/23 09:00 Dose: Not Given Olanzapine (Olanzapine 10 Mg Vial) 7.5 mg IM BID PRN PRN Reason: refusal of PO olanzapine Last Admin: 01/17/23 07:46 Dose: 7.5 mg Paliperidone Palmitate (Paliperidone Palmitate 234 Mg/1.5 Ml Syringe) 234 mg IM Q30D [facility] Last Admin: 01/13/23 10:54 Dose: 234 mg Psyllium Hydrophilic Mucilloid (Psyllium Seed 3.4 Gm Powd.Pack) 3.4 gm PO BID [facility]JUM Last Admin: 01/17/23 09:00 Dose: Not Given Trazodone HCl (Trazodone Hcl 50 Mg Tablet) 50 mg PO BEDTIME PRN PRN Reason: Insomnia Trazodone HCl (Trazodone Hcl 50 Mg Tablet) 50 mg PO BEDTIME MRX1 PRN PRN Reason: Insomnia Allergies Allergies Allergy/AdvReac Type Severity Reaction Status Date / Time bupropion [From Wellbutrin] Allergy Mild CAUSES Verified 12/03/22 00:30 SWOLLEN HEAD tetracycline [Tetracycline] Allergy Mild UNKNOWN Verified 12/03/22 00:30 trifluoperazine Allergy Mild UNKNOWN Verified 12/03/22 00:30 [From Stelazine] clozapine [From Clozaril] AdvReac Mild SEIZURES,NE Verified 12/03/22 00:30 UTROPENIA Assessment & Plan Assessment & Plan (1) Schizoaffective disorder, bipolar type: Status: Acute Code(s): F25.0 - Schizoaffective disorder, bipolar type Plan 12/15: offer medications. 12/16: completed commitment paperwork. defecated in paper bag and left it in the hallway, removed shirt and not responsive to direction to cover up. postured at staff attempting to enforce limits. 12/17: no change in presentation. continue current mgmt. filed for commitment. 12/18 continue tx. not taking medications. 12/20: Last night disrobing. Continue to offer medications. Declining these. Court hearing to be scheduled. 12/21: continue tx. Pt's underwear and hospital gown covered in urine, pt instructed to change to clean gown. Pt moved away to his room, gesturing and talking to himself. Per nursing, pt only slept about 2 hrs. Pt declined medications for sleep and psychiatric illness. He pushed RN last night and was disrobing through the night in the [place]el[place]. He was spinning, becoming dizzy with unsteady gait, difficult to redirect. 12/22: continue tx. He reports I'm a super, super human being, I don't need to sleep. Pt writing on menu, disorganized to focused and complete task of electing his meals while on the unit. Per nursing, pt did not sleep last night. He was again restless, disrobing at times. He did follow this administrative underwriter after when attempted to meet with other pts. Pt needed redirection. 12/23: smearing feces on jeffrey and floor of bathroom last night, refused to change fecally soiled socks, placing fecal material in his doorway, pushing through others to do laps, moving others as they sat in their chairs. took meds this morning for the first time this admission, sound asleep late morning. hearing scheduled for tomorrow. continue current mgmt. 12/24: refusing interview. continued disorganized behavior overnight. committed and meds ordered. 12/25: disrobing in kitchen. if you offer me meds, i have the right to punch you in the stomach. refused PO meds, IMs given as per haley's order. 12/26: opting for IMs. terse, guarded, irritable. 12/27: remains terse and guarded, but taking meds PO as of last NOC. 12/28: no change in presentation or treatment. 12/29: after several days of PO meds, refused again this morning and got IMs. wandering into particular female peer's room repeatedly, putting his clothes in the toilet, urinating while seated at his desk, knocked meds out of RN's hand. put pt on 1:1 for safety, otherwise continue current mgmt. 12/30: IMs again last night for PO refusal. no change in presentation today - terse, avoidant, glaring, minimally responsive. 12/31: still refusing PO meds, getting IMs. no change in presentation. 01/01: still refusing PO meds, getting IMs. no change in presentation. manually removing feces from his anus. demanding nursing staff get naked with him. 01/02: refusing PO meds but passively accepting IMs. 01/03: remains on close obs. still refusing mood stabilizers, receiving ativan and haldol IM 01/04/2023 Patient generally refusing p.o. medication receiving IM antipsychotic 01/05/2023 Patient for an extended period of time is apparently not been cooperative with taking p.o. medication became convinced he just needs multiple supplements. He would clearly benefit from a long-acting injectable chart reviewed patient had ECT in 2008 says secondary to suicidal depression and psychosis and apparently at that time responded quite well he clearly has a bipolar component would benefit from acceptance of Depakote/lithium cannot take in information about his condition. 01/06: message left for kassy re h/o invega. if there is evidence pt has tolerated invega in the past will likely start EVANS sustenna. no change in presentation, still refusing PO meds. 01/07: case d/w kassy, pt has never been on invega to his knowledge. invega sustenna 156 mg given today. IM haldol orders DCed. will change IM ativan to IM valium once it is established that invega causes no intolerable side effects. 01/08: no change in presentation. continue current mgmt for now. 01/09: no change in presentation. continue current mgmt for now. 01/10: no change in presentation. continue current mgmt for now. Consider reintroducing Haldol while Invega takes effect. 01/11: does not appear to be suffering any side effects from invega. 234 mg dose ordered for . will restart second antipsychotic at some point in the next week. DC ativan IM and start valium IM for longer coverage. 01/12: invega 234 mg IM ordered for tomorrow. continue current mgmt. 01/13: no change in presentation. continue current mgmt. 01/14: no change in presentation or mgmt. received invega sustenna 234 mg IM yesterday 01/13. threw food/food tray at [place] staff, placed on safety tray. 01/15: invega next due 02/10. tolerating it fine, apparently. start second antipsychotic, zyprexa, per haley's order. otherwise continue current mgmt. behaviors continue to be irritable and aggressive. 01/16: grossly psychotic, agitated, naked in his room, refused PO needed IM as per court order. 01/17 still grossly psychotic refusing p.o. getting IM as per court order Reason for continued inpatient stay Substantial Risk for: inability to function, rapid decompensation and med/psych decompensation Time Spent With Patient Time: Total time managing care of this patient today __20__ minutes.
--- NOTE | 2023-01-17 15:54 | PC.NURSE ---
Pt came out of his room and saw another pt getting his chips. Eriberto attempted to take chips after peer said no. Staff required to intervene between the two pts. Pt raised hands and required staff to block blows and redirect pt. Pt then returned to his room without further incident.
[2023-01-17 19:45] VITALS: RESP 18
[2023-01-18] MEDS: OLANZapine 10 MG VIAL 7.5 MG IM ×2 (08:23→21:42)
[2023-01-18] MEDS: diazePAM 10 MG/2 ML CARTRIDGE IM ×2 (08:24→21:42)
[2023-01-18 08:33] VITALS: RESP 18
--- NOTE | 2023-01-18 14:23 | HO.PSYCHPN ---
Subjective Subjective Date of Service: 01/18/23 Reason For Visit: Psychosis Subjective Notes: Section 8 Interim History: Patient intermittently aggressive withdrawn continues to refuse p.o. medication including mood stabilizing agent such as Depakote and lithium has been started on Haldol in addition to loading strategy with Invega Medication Compliance: No Attending Groups: No Review of Systems Acute medical concerns: No Mental Status Exam Mental Status Exam Patient Appearance: Disheveled and Inappropriate Patient Orientation: Person and Situation Level of Consciousness: Restless and Inappropriate Patient Behavior: Aggressive and Belligerent Mood Description: Apprehensive Affect Description: Blunted Ability to Follow Directions: Poor Speech Pattern: Impoverished and Rambling Hallucinations: Auditory Delusions: Paranoid Ideation and Ideas of Reference Thought Process: Incoherent and Illogical Thought Content: positive for Loose Associations and positive for Incoherent Judgement: Poor Diagnostics Vital Signs (24Hr): Vital Signs - 24 hr 01/17/23 19:45 01/18/23 08:33 Respiratory Rate 18 18 BMI result Body Mass Index 28.1 Labs 12/14/22 02:33 12/15/22 09:08 Imaging Radiology Impressions: ITS Impressions Cervical Spine CT 12/14/22 08:06 IMPRESSION: 1. No acute intracranial, maxillofacial bone, or cervical abnormalities. 2. Right frontal cephalohematoma, not associated with fracture. 3. Coarse, lobulated calcification in the fourth ventricle, need to be further evaluated by MRI without and with contrast. 4. Degenerative changes in the cervical spine. Face CT 12/14/22 08:06 IMPRESSION: 1. No acute intracranial, maxillofacial bone, or cervical abnormalities. 2. Right frontal cephalohematoma, not associated with fracture. 3. Coarse, lobulated calcification in the fourth ventricle, need to be further evaluated by MRI without and with contrast. 4. Degenerative changes in the cervical spine. Head CT 12/14/22 08:06 IMPRESSION: 1. No acute intracranial, maxillofacial bone, or cervical abnormalities. 2. Right frontal cephalohematoma, not associated with fracture. 3. Coarse, lobulated calcification in the fourth ventricle, need to be further evaluated by MRI without and with contrast. 4. Degenerative changes in the cervical spine. Brain MRI 12/14/22 13:15 IMPRESSION: There is a 1.0 cm densely calcified lobulated lesion centered within the right anterior aspect of the fourth ventricle demonstrating peripheral enhancement. Differential considerations include a calcified choroid plexus cyst, choroid plexus papilloma, or intraventricular meningioma. The fourth ventricle remains patent without evidence of fourth ventricular outflow obstruction. No hydrocephalus. Generalized parenchymal volume loss and nonspecific white matter disease, likely mild chronic microangiopathy. Right frontal scalp hematoma. Medications Medications Current Medications Acetaminophen (Acetaminophen 325 Mg Tablet) 650 mg PO Q6H PRN PRN Reason: Headache/Pain Mild Scale (1-3) Al Hydroxide/Mg Hydroxide (Magnesium Hydrox/Alum Hydrox 30 Ml Oral.Susp) 30 ml PO Q6H PRN PRN Reason: Heartburn/Nausea Carbamazepine (Carbamazepine Er 200 Mg Tab.Er.12h) 200 mg PO DAILY [facility] Last Admin: 01/18/23 08:12 Dose: Not Given Carbamazepine (Carbamazepine Er 200 Mg Tab.Er.12h) 400 mg PO BEDTIME [facility] Last Admin: 01/17/23 21:53 Dose: Not Given Diazepam (Diazepam 10 Mg/2 Ml Cartridge) 10 mg IM BID PRN PRN Reason: refusal of PO medications Last Admin: 01/18/23 08:24 Dose: 10 mg Hydroxyzine HCl (Hydroxyzine Hcl 25 Mg Tablet) 25 mg PO Q6H PRN PRN Reason: Anxiety [place] Carbonate ([place] Carbonate Er 450 Mg Tablet.Er) 900 mg PO BEDTIME [facility] Last Admin: 01/17/23 21:53 Dose: Not Given [place] Carbonate ([place] Carbonate 300 Mg Capsule) 600 mg PO DAILY [facility] Last Admin: 01/18/23 08:12 Dose: Not Given Magnesium Hydroxide (Milk Of Magnesia 30 Ml Oral.Susp) 30 ml PO DAILY PRN PRN Reason: Constipation Olanzapine (Olanzapine 10 Mg Tablet) 20 mg PO BID [facility] Last Admin: 01/18/23 08:12 Dose: Not Given Olanzapine (Olanzapine 10 Mg Vial) 7.5 mg IM BID PRN PRN Reason: refusal of PO olanzapine Last Admin: 01/18/23 08:23 Dose: 7.5 mg Paliperidone Palmitate (Paliperidone Palmitate 234 Mg/1.5 Ml Syringe) 234 mg IM Q30D [facility] Last Admin: 01/13/23 10:54 Dose: 234 mg Psyllium Hydrophilic Mucilloid (Psyllium Seed 3.4 Gm Powd.Pack) 3.4 gm PO BID [facility] Last Admin: 01/18/23 08:12 Dose: Not Given Trazodone HCl (Trazodone Hcl 50 Mg Tablet) 50 mg PO BEDTIME PRN PRN Reason: Insomnia Trazodone HCl (Trazodone Hcl 50 Mg Tablet) 50 mg PO BEDTIME MRX1 PRN PRN Reason: Insomnia Allergies Allergies Allergy/AdvReac Type Severity Reaction Status Date / Time bupropion [From Wellbutrin] Allergy Mild CAUSES Verified 12/03/22 00:30 SWOLLEN HEAD tetracycline [Tetracycline] Allergy Mild UNKNOWN Verified 12/03/22 00:30 trifluoperazine Allergy Mild UNKNOWN Verified 12/03/22 00:30 [From Stelazine] clozapine [From Clozaril] AdvReac Mild SEIZURES,NE Verified 12/03/22 00:30 UTROPENIA Assessment & Plan Assessment & Plan (1) Schizoaffective disorder, bipolar type: Status: Acute Code(s): F25.0 - Schizoaffective disorder, bipolar type Plan 12/15: offer medications. 12/16: completed commitment paperwork. defecated in paper bag and left it in the hallway, removed shirt and not responsive to direction to cover up. postured at staff attempting to enforce limits. 12/17: no change in presentation. continue current mgmt. filed for commitment. 12/18 continue tx. not taking medications. 12/20: Last night disrobing. Continue to offer medications. Declining these. Court hearing to be scheduled. 12/21: continue tx. Pt's underwear and hospital gown covered in urine, pt instructed to change to clean gown. Pt moved away to his room, gesturing and talking to himself. Per nursing, pt only slept about 2 hrs. Pt declined medications for sleep and psychiatric illness. He pushed RN last night and was disrobing through the night in the [place]el[place]. He was spinning, becoming dizzy with unsteady gait, difficult to redirect. 12/22: continue tx. He reports I'm a super, super human being, I don't need to sleep. Pt writing on menu, disorganized to focused and complete task of electing his meals while on the unit. Per nursing, pt did not sleep last night. He was again restless, disrobing at times. He did follow this sql report writer after when attempted to meet with other pts. Pt needed redirection. 12/23: smearing feces on jeffrey and floor of bathroom last night, refused to change fecally soiled socks, placing fecal material in his doorway, pushing through others to do laps, moving others as they sat in their chairs. took meds this morning for the first time this admission, sound asleep late morning. hearing scheduled for tomorrow. continue current mgmt. 12/24: refusing interview. continued disorganized behavior overnight. committed and meds ordered. 12/25: disrobing in kitchen. if you offer me meds, i have the right to punch you in the stomach. refused PO meds, IMs given as per haley's order. 12/26: opting for IMs. terse, guarded, irritable. 12/27: remains terse and guarded, but taking meds PO as of last NOC. 12/28: no change in presentation or treatment. 12/29: after several days of PO meds, refused again this morning and got IMs. wandering into particular female peer's room repeatedly, putting his clothes in the toilet, urinating while seated at his desk, knocked meds out of RN's hand. put pt on 1:1 for safety, otherwise continue current mgmt. 12/30: IMs again last night for PO refusal. no change in presentation today - terse, avoidant, glaring, minimally responsive. 12/31: still refusing PO meds, getting IMs. no change in presentation. 01/01: still refusing PO meds, getting IMs. no change in presentation. manually removing feces from his anus. demanding nursing staff get naked with him. 01/02: refusing PO meds but passively accepting IMs. 01/03: remains on close obs. still refusing mood stabilizers, receiving ativan and haldol IM 01/04/2023 Patient generally refusing p.o. medication receiving IM antipsychotic 01/05/2023 Patient for an extended period of time is apparently not been cooperative with taking p.o. medication became convinced he just needs multiple supplements. He would clearly benefit from a long-acting injectable chart reviewed patient had ECT in 2008 says secondary to suicidal depression and psychosis and apparently at that time responded quite well he clearly has a bipolar component would benefit from acceptance of Depakote/lithium cannot take in information about his condition. 01/06: message left for kassy re h/o invega. if there is evidence pt has tolerated invega in the past will likely start EVANS sustenna. no change in presentation, still refusing PO meds. 01/07: case d/w kassy, pt has never been on invega to his knowledge. invega sustenna 156 mg given today. IM haldol orders DCed. will change IM ativan to IM valium once it is established that invega causes no intolerable side effects. 01/08: no change in presentation. continue current mgmt for now. 01/09: no change in presentation. continue current mgmt for now. 01/10: no change in presentation. continue current mgmt for now. Consider reintroducing Haldol while Invega takes effect. 01/11: does not appear to be suffering any side effects from invega. 234 mg dose ordered for . will restart second antipsychotic at some point in the next week. DC ativan IM and start valium IM for longer coverage. 01/12: invega 234 mg IM ordered for tomorrow. continue current mgmt. 01/13: no change in presentation. continue current mgmt. 01/14: no change in presentation or mgmt. received invega sustenna 234 mg IM yesterday 01/13. threw food/food tray at [place] staff, placed on safety tray. 01/15: invega next due 02/10. tolerating it fine, apparently. start second antipsychotic, zyprexa, per haley's order. otherwise continue current mgmt. behaviors continue to be irritable and aggressive. 01/16: grossly psychotic, agitated, naked in his room, refused PO needed IM as per court order. 01/17 still grossly psychotic refusing p.o. getting IM as per court order 01/18 Continue treatment plan Invega loading strategy has been followed by Elizabethl might benefit from ECT however not on treatment order Informed Consent: does not understand Reason for continued inpatient stay Substantial Risk for: harm to others, inability to function and rapid decompensation Time Spent With Patient Time: Total time managing care of this patient today ____ minutes.
[2023-01-18 19:45] VITALS: RESP 18
[2023-01-19] MEDS: diazePAM 10 MG/2 ML CARTRIDGE IM ×2 (08:00→21:26)
[2023-01-19] MEDS: OLANZapine 10 MG VIAL 7.5 MG IM ×2 (08:18→21:26)
--- NOTE | 2023-01-19 23:13 | P.PNPSI_ITS ---
Subjective Subjective Date of Service: 01/19/23 Reason For Visit: Psychosis Subjective Notes: Section 8 Interim History: Patient has been internally per hip I would bizarre delusional material trying to bathe in urine stopping of the toilet saying there some security reason behind this. Continues to refuse p.o. medication mood stabilizing agents Mental Status Exam Mental Status Exam Patient Appearance: Disheveled and Inappropriate Patient Orientation: Person and Situation Level of Consciousness: Restless and Inappropriate Patient Behavior: Aggressive and Belligerent Mood Description: Apprehensive Affect Description: Blunted Ability to Follow Directions: Poor Speech Pattern: Impoverished and Rambling Hallucinations: Auditory Delusions: Paranoid Ideation and Ideas of Reference Thought Process: Incoherent and Illogical Thought Content: positive for Loose Associations and positive for Incoherent Judgement: Poor Diagnostics Vital Signs (24Hr): BMI result Body Mass Index 28.1 Labs 12/14/22 02:33 12/15/22 09:08 Imaging Radiology Impressions: ITS Impressions Cervical Spine CT 12/14/22 08:06 IMPRESSION: 1. No acute intracranial, maxillofacial bone, or cervical abnormalities. 2. Right frontal cephalohematoma, not associated with fracture. 3. Coarse, lobulated calcification in the fourth ventricle, need to be further evaluated by MRI without and with contrast. 4. Degenerative changes in the cervical spine. Face CT 12/14/22 08:06 IMPRESSION: 1. No acute intracranial, maxillofacial bone, or cervical abnormalities. 2. Right frontal cephalohematoma, not associated with fracture. 3. Coarse, lobulated calcification in the fourth ventricle, need to be further evaluated by MRI without and with contrast. 4. Degenerative changes in the cervical spine. Head CT 12/14/22 08:06 IMPRESSION: 1. No acute intracranial, maxillofacial bone, or cervical abnormalities. 2. Right frontal cephalohematoma, not associated with fracture. 3. Coarse, lobulated calcification in the fourth ventricle, need to be further evaluated by MRI without and with contrast. 4. Degenerative changes in the cervical spine. Brain MRI 12/14/22 13:15 IMPRESSION: There is a 1.0 cm densely calcified lobulated lesion centered within the right anterior aspect of the fourth ventricle demonstrating peripheral enhancement. Differential considerations include a calcified choroid plexus cyst, choroid plexus papilloma, or intraventricular meningioma. The fourth ventricle remains patent without evidence of fourth ventricular outflow obstruction. No hydrocephalus. Generalized parenchymal volume loss and nonspecific white matter disease, likely mild chronic microangiopathy. Right frontal scalp hematoma. Medications Medications Current Medications Acetaminophen (Acetaminophen 325 Mg Tablet) 650 mg PO Q6H PRN PRN Reason: Headache/Pain Mild Scale (1-3) Al Hydroxide/Mg Hydroxide (Magnesium Hydrox/Alum Hydrox 30 Ml Oral.Susp) 30 ml PO Q6H PRN PRN Reason: Heartburn/Nausea Carbamazepine (Carbamazepine Er 200 Mg Tab.Er.12h) 200 mg PO DAILY [facility] Last Admin: 01/19/23 08:36 Dose: Not Given Carbamazepine (Carbamazepine Er 200 Mg Tab.Er.12h) 400 mg PO BEDTIME [facility] Last Admin: 01/19/23 21:16 Dose: Not Given Diazepam (Diazepam 10 Mg/2 Ml Cartridge) 10 mg IM BID PRN PRN Reason: refusal of PO medications Last Admin: 01/19/23 21:26 Dose: 10 mg Hydroxyzine HCl (Hydroxyzine Hcl 25 Mg Tablet) 25 mg PO Q6H PRN PRN Reason: Anxiety [place] Carbonate ([place] Carbonate Er 450 Mg Tablet.Er) 900 mg PO BEDTIME [facility] Last Admin: 01/19/23 21:16 Dose: Not Given [place] Carbonate ([place] Carbonate 300 Mg Capsule) 600 mg PO DAILY [facility] Last Admin: 01/19/23 08:36 Dose: Not Given Magnesium Hydroxide (Milk Of Magnesia 30 Ml Oral.Susp) 30 ml PO DAILY PRN PRN Reason: Constipation Olanzapine (Olanzapine 10 Mg Tablet) 20 mg PO BID [facility] Last Admin: 01/19/23 21:16 Dose: Not Given Olanzapine (Olanzapine 10 Mg Vial) 7.5 mg IM BID PRN PRN Reason: refusal of PO olanzapine Last Admin: 01/19/23 21:26 Dose: 7.5 mg Paliperidone Palmitate (Paliperidone Palmitate 234 Mg/1.5 Ml Syringe) 234 mg IM Q30D [facility] Last Admin: 01/13/23 10:54 Dose: 234 mg Psyllium Hydrophilic Mucilloid (Psyllium Seed 3.4 Gm Powd.Pack) 3.4 gm PO BID [facility] Last Admin: 01/19/23 21:16 Dose: Not Given Trazodone HCl (Trazodone Hcl 50 Mg Tablet) 50 mg PO BEDTIME PRN PRN Reason: Insomnia Trazodone HCl (Trazodone Hcl 50 Mg Tablet) 50 mg PO BEDTIME MRX1 PRN PRN Reason: Insomnia Allergies Allergies Allergy/AdvReac Type Severity Reaction Status Date / Time bupropion [From Wellbutrin] Allergy Mild CAUSES Verified 12/03/22 00:30 SWOLLEN HEAD tetracycline [Tetracycline] Allergy Mild UNKNOWN Verified 12/03/22 00:30 trifluoperazine Allergy Mild UNKNOWN Verified 12/03/22 00:30 [From Stelazine] clozapine [From Clozaril] AdvReac Mild SEIZURES,NE Verified 12/03/22 00:30 UTROPENIA Assessment & Plan Assessment & Plan (1) Schizoaffective disorder, bipolar type: Status: Acute Code(s): F25.0 - Schizoaffective disorder, bipolar type Plan 12/15: offer medications. 12/16: completed commitment paperwork. defecated in paper bag and left it in the hallway, removed shirt and not responsive to direction to cover up. postured at staff attempting to enforce limits. 12/17: no change in presentation. continue current mgmt. filed for commitment. 12/18 continue tx. not taking medications. 12/20: Last night disrobing. Continue to offer medications. Declining these. Court hearing to be scheduled. 12/21: continue tx. Pt's underwear and hospital gown covered in urine, pt i nstructed to change to clean gown. Pt moved away to his room, gesturing and talking to himself. Per nursing, pt only slept about 2 hrs. Pt declined medications for sleep and psychiatric illness. He pushed RN last night and was disrobing through the night in the [place]el[place]. He was spinning, becoming dizzy with unsteady gait, difficult to redirect. 12/22: continue tx. He reports I'm a super, super human being, I don't need to sleep. Pt writing on menu, disorganized to focused and complete task of elec ting his meals while on the unit. Per nursing, pt did not sleep last night. He was again restless, disrobing at times. He did follow this technical document writer after when attempted to meet with other pts. Pt needed redirection. 12/23: smearing feces on jeffrey and floor of bathroom last night, refused to change fecally soiled socks, placing fecal material in his doorway, pushing through others to do laps, moving others as they sat in their chairs. took meds this morning for the first time this admission, sound asleep late morning. hearing scheduled for tomorrow. continue current mgmt. 12/24: refusing interview. continued disorganized behavior overnight. committed and meds ordered. 12/25: disrobing in kitchen. if you offer me meds, i have the right to punch you in the stomach. refused PO meds, IMs given as per haley's order. 12/26: opting for IMs. terse, guarded, irritable. 12/27: remains terse and guarded, but taking meds PO as of last NOC. 12/28: no change in presentation or treatment. 12/29: after several days of PO meds, refused again this morning and got IMs. wandering into particular female peer's room repeatedly, putting his clothes in the toilet, urinating while seated at his desk, knocked meds out of RN's hand. put pt on 1:1 for safety, otherwise continue current mgmt. 12/30: IMs again last night for PO refusal. no change in presentation today - terse, avoidant, glaring, minimally responsive. 12/31: still refusing PO meds, getting IMs. no change in presentation. 01/01: still refusing PO meds, getting IMs. no change in presentation. manually removing feces from his anus. demanding nursing staff get naked with him. 01/02: refusing PO meds but passively accepting IMs. 01/03: remains on close obs. still refusing mood stabilizers, receiving ativan and haldol IM 01/04/2023 Patient generally refusing p.o. medication receiving IM antipsychotic 01/05/2023 Patient for an extended period of time is apparently not been cooperative with taking p.o. medication became convinced he just needs multiple supplements. He would clearly benefit from a long-acting injectable chart reviewed patient had ECT in 2008 says secondary to suicidal depression and psychosis and apparently at that time responded quite well he clearly has a bipolar component would benefit from acceptance of Depakote/lithium cannot take in information about his condition. 01/06: message left for landstrom re h/o invega. if there is evidence pt has tolerated invega in the past will likely start EVANS sustenna. no change in presentation, still refusing PO meds. 01/07: case d/w kassy, pt has never been on invega to his knowledge. invega sustenna 156 mg given today. IM haldol orders DCed. will change IM ativan to IM valium once it is established that invega causes no intolerable side effects. 01/08: no change in presentation. continue current mgmt for now. 01/09: no change in presentation. continue current mgmt for now. 01/10: no change in presentation. continue current mgmt for now. Consider reintroducing Haldol while Invega takes effect. 01/11: does not appear to be suffering any side effects from invega. 234 mg dose ordered for . will restart second antipsychotic at some point in the next week. DC ativan IM and start valium IM for longer coverage. 01/12: invega 234 mg IM ordered for tomorrow. continue current mgmt. 01/13: no change in presentation. continue current mgmt. 01/14: no change in presentation or mgmt. received invega sustenna 234 mg IM yesterday 01/13. threw food/food tray at [facility] staff, placed on safety tray. 01/15: invega next due 02/10. tolerating it fine, apparently. start second antipsychotic, zyprexa, per haley's order. otherwise continue current mgmt. behaviors continue to be irritable and aggressive. 01/16: grossly psychotic, agitated, naked in his room, refused PO needed IM as per court order. 01/17 still grossly psychotic refusing p.o. getting IM as per court order 01/18 Continue treatment plan Invega loading strategy has been followed by Elizabethl might benefit from ECT however not on treatment order 01/19/23 inc zyprexa im aggressive hostile has recieved invega now olanzapine will not engage Reason for continued inpatient stay Substantial Risk for: harm to others, inability to function and rapid decompensation Time Spent With Patient Time: Total time managing care of this patient today ____ minutes.
--- NOTE | 2023-01-20 06:21 | PC.NURSE ---
At 0600, Eriberto stood in his bedroom by the entrance to the bathroom and urinated on himself and the floor. Patient refused to shower, but was changed into new clothing.
[2023-01-20] MEDS: OLANZapine 10 MG VIAL IM ×2 (08:39→21:33)
[2023-01-20] MEDS: diazePAM 10 MG/2 ML CARTRIDGE 5 MG IM ×2 (08:39→21:33)
[2023-01-20 18:00] VITALS: RESP 18
--- NOTE | 2023-01-21 04:39 | PC.NURSE ---
On 01/20/23 at 2100 patient urinating in his clothing. Patient refused to shower and refused to take off wet clothing. Patient stated he wanted to let the clothing dry.
--- NOTE | 2023-01-21 04:45 | PC.NURSE ---
At 0430, this nurse asked Eriberto if he would consider showering. Patient stated NO . This nurse offered to get a basin of warm soapy water and he could wash up in his bathroom. Eriberto stated he would do that but I would have to let him put back on his soiled clothing. This nurse stated that we could not do that. Nurse will attempt again later in shift.
[2023-01-21 07:00] VITALS: BMI 28.1
[2023-01-21] MEDS: OLANZapine 10 MG VIAL IM ×2 (08:43→21:06)
[2023-01-21] MEDS: diazePAM 10 MG/2 ML CARTRIDGE 5 MG IM ×2 (08:43→21:07)
[2023-01-21 09:21] VITALS: BP 136/79; PULSE 95; RESP 18; TEMP 36.9; O2SAT 99
--- NOTE | 2023-01-21 09:33 | P.PNPSI_ITS ---
Subjective Subjective Date of Service: 01/20/23 Reason For Visit: Psychosis Subjective Notes: Section 8 Interim History: The patient is irritable hostile minimally engaged verbally aggressive physically posturing. Not taking care of himself soaking himself and urine now observed bathroom continues on close observation locked bathroom Medication Compliance: No Attending Groups: No Mental Status Exam Mental Status Exam Narrative: Yelling ?fuck you get out of my room? will not engage in conversation Patient Appearance: Disheveled and Inappropriate Patient Orientation: Person and Situation Level of Consciousness: Restless and Inappropriate Patient Behavior: Aggressive and Belligerent Mood Description: Apprehensive Affect Description: Anxious, Labile, Angry and Apprehensive Ability to Follow Directions: Poor Speech Pattern: Impoverished and Rambling Hallucinations: Auditory Delusions: Paranoid Ideation and Ideas of Reference Thought Process: Incoherent and Illogical Thought Content: positive for Incoherent and positive for Disorganized Abnormal Motor Activity Signs and Symptoms: Agitation Judgement: Poor Diagnostics Vital Signs (24Hr): Vital Signs - 24 hr 01/20/23 18:00 01/21/23 09:21 Temperature 98.5 F Pulse Rate 95 Respiratory Rate 18 18 Blood Pressure 136/79 Pulse Oximetry 99 Oxygen Delivery Method Room Air BMI result Body Mass Index 28.1 Labs 12/14/22 02:33 12/15/22 09:08 Imaging Radiology Impressions: ITS Impressions Cervical Spine CT 12/14/22 08:06 IMPRESSION: 1. No acute intracranial, maxillofacial bone, or cervical abnormalities. 2. Right frontal cephalohematoma, not associated with fracture. 3. Coarse, lobulated calcification in the fourth ventricle, need to be further evaluated by MRI without and with contrast. 4. Degenerative changes in the cervical spine. Face CT 12/14/22 08:06 IMPRESSION: 1. No acute intracranial, maxillofacial bone, or cervical abnormalities. 2. Right frontal cephalohematoma, not associated with fracture. 3. Coarse, lobulated calcification in the fourth ventricle, need to be further evaluated by MRI without and with contrast. 4. Degenerative changes in the cervical spine. Head CT 12/14/22 08:06 IMPRESSION: 1. No acute intracranial, maxillofacial bone, or cervical abnormalities. 2. Right frontal cephalohematoma, not associated with fracture. 3. Coarse, lobulated calcification in the fourth ventricle, need to be further evaluated by MRI without and with contrast. 4. Degenerative changes in the cervical spine. Brain MRI 12/14/22 13:15 IMPRESSION: There is a 1.0 cm densely calcified lobulated lesion centered within the right anterior aspect of the fourth ventricle demonstrating peripheral enhancement. Differential considerations include a calcified choroid plexus cyst, choroid plexus papilloma, or intraventricular meningioma. The fourth ventricle remains patent without evidence of fourth ventricular outflow obstruction. No hydrocephalus. Generalized parenchymal volume loss and nonspecific white matter disease, likely mild chronic microangiopathy. Right frontal scalp hematoma. Medications Medications Current Medications Acetaminophen (Acetaminophen 325 Mg Tablet) 650 mg PO Q6H PRN PRN Reason: Headache/Pain Mild Scale (1-3) Al Hydroxide/Mg Hydroxide (Magnesium Hydrox/Alum Hydrox 30 Ml Oral.Susp) 30 ml PO Q6H PRN PRN Reason: Heartburn/Nausea Carbamazepine (Carbamazepine Er 200 Mg Tab.Er.12h) 200 mg PO DAILY [facility] Last Admin: 01/21/23 08:44 Dose: Not Given Carbamazepine (Carbamazepine Er 200 Mg Tab.Er.12h) 400 mg PO BEDTIME [facility] Last Admin: 01/20/23 21:25 Dose: Not Given Diazepam (Diazepam 10 Mg/2 Ml Cartridge) 5 mg IM BID PRN PRN Reason: refusal of PO medications Last Admin: 01/21/23 08:43 Dose: 5 mg Hydroxyzine HCl (Hydroxyzine Hcl 25 Mg Tablet) 25 mg PO Q6H PRN PRN Reason: Anxiety [place] Carbonate ([place] Carbonate Er 450 Mg Tablet.Er) 900 mg PO BEDTIME [facility] Last Admin: 01/20/23 21:25 Dose: Not Given [place] Carbonate ([place] Carbonate 300 Mg Capsule) 600 mg PO DAILY [facility] Last Admin: 01/21/23 08:45 Dose: Not Given Magnesium Hydroxide (Milk Of Magnesia 30 Ml Oral.Susp) 30 ml PO DAILY PRN PRN Reason: Constipation Olanzapine (Olanzapine 10 Mg Tablet) 20 mg PO BID [facility] Last Admin: 01/21/23 08:45 Dose: Not Given Olanzapine (Olanzapine 10 Mg Vial) 10 mg IM BID PRN PRN Reason: refusal of PO olanzapine Last Admin: 01/21/23 08:43 Dose: 10 mg Paliperidone Palmitate (Paliperidone Palmitate 234 Mg/1.5 Ml Syringe) 234 mg IM Q30D [facility] Last Admin: 01/13/23 10:54 Dose: 234 mg Psyllium Hydrophilic Mucilloid (Psyllium Seed 3.4 Gm Powd.Pack) 3.4 gm PO BID [facility] Last Admin: 01/21/23 08:45 Dose: Not Given Trazodone HCl (Trazodone Hcl 50 Mg Tablet) 50 mg PO BEDTIME PRN PRN Reason: Insomnia Trazodone HCl (Trazodone Hcl 50 Mg Tablet) 50 mg PO BEDTIME MRX1 PRN PRN Reason: Insomnia Allergies Allergies Allergy/AdvReac Type Severity Reaction Status Date / Time bupropion [From Wellbutrin] Allergy Mild CAUSES Verified 12/03/22 00:30 SWOLLEN HEAD tetracycline [Tetracycline] Allergy Mild UNKNOWN Verified 12/03/22 00:30 trifluoperazine Allergy Mild UNKNOWN Verified 12/03/22 00:30 [From Stelazine] clozapine [From Clozaril] AdvReac Mild SEIZURES,NE Verified 12/03/22 00:30 UTROPENIA Assessment & Plan Assessment & Plan (1) Schizoaffective disorder, bipolar type: Status: Acute Code(s): F25.0 - Schizoaffective disorder, bipolar type Plan 12/15: offer medications. 12/16: completed commitment paperwork. defecated in paper bag and left it in the hallway, removed shirt and not responsive to direction to cover up. postured at staff attempting to enforce limits. 12/17: no change in presentation. continue current mgmt. filed for commitment. 12/18 continue tx. not taking medications. 12/20: Last night disrobing. Continue to offer medications. Declining these. Court hearing to be scheduled. 12/21: continue tx. Pt's underwear and hospital gown covered in urine, pt instructed to change to clean gown. Pt moved away to his room, gesturing and talking to himself. Per nursing, pt only slept about 2 hrs. Pt declined medications for sleep and psychiatric illness. He pushed RN last night and was disrobing through the night in the [place]. He was spinning, becoming dizzy with unsteady gait, difficult to redirect. 12/22: continue tx. He reports I'm a super, super human being, I don't need to sleep. Pt writing on menu, disorganized to focused and complete task of electing his meals while on the unit. Per nursing, pt did not sleep last night. He was again restless, disrobing at times. He did follow this global technical writer after when attempted to meet with other pts. Pt needed redirection. 12/23: smearing feces on jeffrey and floor of bathroom last night, refused to change fecally soiled socks, placing fecal material in his doorway, pushing through others to do laps, moving others as they sat in their chairs. took meds this morning for the first time this admission, sound asleep late morning. hearing scheduled for tomorrow. continue current mgmt. 12/24: refusing interview. continued disorganized behavior overnight. committed and meds ordered. 12/25: disrobing in kitchen. if you offer me meds, i have the right to punch you in the stomach. refused PO meds, IMs given as per haley's order. 12/26: opting for IMs. terse, guarded, irritable. 12/27: remains terse and guarded, but taking meds PO as of last NOC. 12/28: no change in presentation or treatment. 12/29: after several days of PO meds, refused again this morning and got IMs. wandering into particular female peer's room repeatedly, putting his clothes in the toilet, urinating while seated at his desk, knocked meds out of RN's hand. put pt on 1:1 for safety, otherwise continue current mgmt. 12/30: IMs again last night for PO refusal. no change in presentation today - terse, avoidant, glaring, minimally responsive. 12/31: still refusing PO meds, getting IMs. no change in presentation. 01/01: still refusing PO meds, getting IMs. no change in presentation. manually removing feces from his anus. demanding nursing staff get naked with him. 01/02: refusing PO meds but passively accepting IMs. 01/03: remains on close obs. still refusing mood stabilizers, receiving ativan and haldol IM 01/04/2023 Patient generally refusing p.o. medication receiving IM antipsychotic 01/05/2023 Patient for an extended period of time is apparently not been cooperative with t ivetg p.o. medication became convinced he just needs multiple supplements. He would clearly benefit from a long-acting injectable chart reviewed patient had ECT in 2008 says secondary to suicidal depression and psychosis and apparently at that time responded quite well he clearly has a bipolar component would benefit from acceptance of Depakote/lithium cannot take in information about his condition. 01/06: message left for kassy re h/o invega. if there is evidence pt has tolerated invega in the past will likely start EVANS sustenna. no change in presentation, still refusing PO meds. 01/07: case d/w kassy, pt has never been on invega to his knowledge. invega sustenna 156 mg given today. IM haldol orders DCed. will change IM ativan to IM valium once it is established that invega causes no intolerable side effects. 01/08: no change in presentation. continue current mgmt for now. 01/09: no change in presentation. continue current mgmt for now. 01/10: no change in presentation. continue current mgmt for now. Consider reintroducing Haldol while Invega takes effect. 01/11: does not appear to be suffering any side effects from invega. 234 mg dose ordered for . will restart second antipsychotic at some point in the next week. DC ativan IM and start valium IM for longer coverage. 01/12: invega 234 mg IM ordered for tomorrow. continue current mgmt. 01/13: no change in presentation. continue current mgmt. 01/14: no change in presentation or mgmt. received invega sustenna 234 mg IM yesterday 01/13. threw food/food tray at [place] staff, placed on safety tray. 01/15: invega next due 02/10. tolerating it fine, apparently. start second antipsychotic, zyprexa, per haley's order. otherwise continue current mgmt. behaviors continue to be irritable and aggressive. 01/16: grossly psychotic, agitated, naked in his room, refused PO needed IM as per court order. 01/17 still grossly psychotic refusing p.o. getting IM as per court order 01/18 Continue treatment plan Invega loading strategy has been followed by Elizabethl might benefit from ECT however not on treatment order 01/19/23 inc zyprexa im aggressive hostile has recieved invega now olanzapine will not engage Decreased IM to 5 mg unclear if contributing to any confusion agitation. Zyprexa increased to 10 mg IM Invega does not seem to have been helpful Question akathisia Reason for continued inpatient stay Substantial Risk for: harm to others, inability to function and rapid decompensation Time Spent With Patient Time: Total time managing care of this patient today ____ minutes.
--- NOTE | 2023-01-21 17:04 | HO.PSYCHPN ---
Subjective Subjective Date of Service: 01/21/23 Reason For Visit: Psychosis Subjective Notes: Section 8 Interim History: Patient wearing hospital Erick english son close observation continues to be irritable verbally aggressive not engageable in coherent verbal interaction Restless easily agitated often cursing at staff Past baseline reportedly the patient was independent driving and quite functional Attending Groups: No Mental Status Exam Mental Status Exam Narrative: Yelling ?fuck you get out of my room? will not engage in conversation Patient Appearance: Disheveled and Inappropriate Patient Orientation: Person and Situation Level of Consciousness: Restless and Inappropriate Patient Behavior: Aggressive and Belligerent Mood Description: Apprehensive Affect Description: Anxious, Labile, Angry and Apprehensive Ability to Follow Directions: Poor Speech Pattern: Impoverished and Rambling Hallucinations: Auditory Delusions: Paranoid Ideation and Ideas of Reference Thought Process: Incoherent and Illogical Thought Content: positive for Incoherent and positive for Disorganized Abnormal Motor Activity Signs and Symptoms: Agitation Judgement: Poor Diagnostics Vital Signs (24Hr): Vital Signs - 24 hr 01/20/23 18:00 01/21/23 09:21 Temperature 98.5 F Pulse Rate 95 Respiratory Rate 18 18 Blood Pressure 136/79 Pulse Oximetry 99 Oxygen Delivery Method Room Air BMI result Body Mass Index 28.1 Labs 12/14/22 02:33 12/15/22 09:08 Imaging Radiology Impressions: ITS Impressions Cervical Spine CT 12/14/22 08:06 IMPRESSION: 1. No acute intracranial, maxillofacial bone, or cervical abnormalities. 2. Right frontal cephalohematoma, not associated with fracture. 3. Coarse, lobulated calcification in the fourth ventricle, need to be further evaluated by MRI without and with contrast. 4. Degenerative changes in the cervical spine. Face CT 12/14/22 08:06 IMPRESSION: 1. No acute intracranial, maxillofacial bone, or cervical abnormalities. 2. Right frontal cephalohematoma, not associated with fracture. 3. Coarse, lobulated calcification in the fourth ventricle, need to be further evaluated by MRI without and with contrast. 4. Degenerative changes in the cervical spine. Head CT 12/14/22 08:06 IMPRESSION: 1. No acute intracranial, maxillofacial bone, or cervical abnormalities. 2. Right frontal cephalohematoma, not associated with fracture. 3. Coarse, lobulated calcification in the fourth ventricle, need to be further evaluated by MRI without and with contrast. 4. Degenerative changes in the cervical spine. Brain MRI 12/14/22 13:15 IMPRESSION: There is a 1.0 cm densely calcified lobulated lesion centered within the right anterior aspect of the fourth ventricle demonstrating peripheral enhancement. Differential considerations include a calcified choroid plexus cyst, choroid plexus papilloma, or intraventricular meningioma. The fourth ventricle remains patent without evidence of fourth ventricular outflow obstruction. No hydrocephalus. Generalized parenchymal volume loss and nonspecific white matter disease, likely mild chronic microangiopathy. Right frontal scalp hematoma. Medications Medications Current Medications Acetaminophen (Acetaminophen 325 Mg Tablet) 650 mg PO Q6H PRN PRN Reason: Headache/Pain Mild Scale (1-3) Al Hydroxide/Mg Hydroxide (Magnesium Hydrox/Alum Hydrox 30 Ml Oral.Susp) 30 ml PO Q6H PRN PRN Reason: Heartburn/Nausea Carbamazepine (Carbamazepine Er 200 Mg Tab.Er.12h) 200 mg PO DAILY [facility] Last Admin: 01/21/23 08:44 Dose: Not Given Carbamazepine (Carbamazepine Er 200 Mg Tab.Er.12h) 400 mg PO BEDTIME [facility] Last Admin: 01/20/23 21:25 Dose: Not Given Diazepam (Diazepam 10 Mg/2 Ml Cartridge) 5 mg IM BID PRN PRN Reason: refusal of PO medications Last Admin: 01/21/23 08:43 Dose: 5 mg Hydroxyzine HCl (Hydroxyzine Hcl 25 Mg Tablet) 25 mg PO Q6H PRN PRN Reason: Anxiety [place] Carbonate ([place] Carbonate Er 450 Mg Tablet.Er) 900 mg PO BEDTIME [facility] Last Admin: 01/20/23 21:25 Dose: Not Given [place] Carbonate ([place] Carbonate 300 Mg Capsule) 600 mg PO DAILY [facility] Last Admin: 01/21/23 08:45 Dose: Not Given Magnesium Hydroxide (Milk Of Magnesia 30 Ml Oral.Susp) 30 ml PO DAILY PRN PRN Reason: Constipation Olanzapine (Olanzapine 10 Mg Tablet) 20 mg PO BID [facility] Last Admin: 01/21/23 08:45 Dose: Not Given Olanzapine (Olanzapine 10 Mg Vial) 10 mg IM BID PRN PRN Reason: refusal of PO olanzapine Last Admin: 01/21/23 08:43 Dose: 10 mg Paliperidone Palmitate (Paliperidone Palmitate 234 Mg/1.5 Ml Syringe) 234 mg IM Q30D [facility] Last Admin: 01/13/23 10:54 Dose: 234 mg Psyllium Hydrophilic Mucilloid (Psyllium Seed 3.4 Gm Powd.Pack) 3.4 gm PO BID [facility] Last Admin: 01/21/23 08:45 Dose: Not Given Trazodone HCl (Trazodone Hcl 50 Mg Tablet) 50 mg PO BEDTIME PRN PRN Reason: Insomnia Trazodone HCl (Trazodone Hcl 50 Mg Tablet) 50 mg PO BEDTIME MRX1 PRN PRN Reason: Insomnia Allergies Allergies Allergy/AdvReac Type Severity Reaction Status Date / Time bupropion [From Wellbutrin] Allergy Mild CAUSES Verified 12/03/22 00:30 SWOLLEN HEAD tetracycline [Tetracycline] Allergy Mild UNKNOWN Verified 12/03/22 00:30 trifluoperazine Allergy Mild UNKNOWN Verified 12/03/22 00:30 [From Stelazine] clozapine [From Clozaril] AdvReac Mild SEIZURES,NE Verified 12/03/22 00:30 UTROPENIA Assessment & Plan Assessment & Plan (1) Schizoaffective disorder, bipolar type: Status: Acute Code(s): F25.0 - Schizoaffective disorder, bipolar type Plan 12/15: offer medications. 12/16: completed commitment paperwork. defecated in paper bag and left it in the hallway, removed shirt and not responsive to direction to cover up. postured at staff attempting to enforce limits. 12/17: no change in presentation. continue current mgmt. filed for commitment. 12/18 continue tx. not taking medications. 12/20: Last night disrobing. Continue to offer medications. Declining these. Court hearing to be scheduled. 12/21: continue tx. Pt's underwear and hospital gown covered in urine, pt instructed to change to clean gown. Pt moved away to his room, gesturing and talking to himself. Per nursing, pt only slept about 2 hrs. Pt declined medications for sleep and psychiatric illness. He pushed RN last night and was disrobing through the night in the [place]. He was spinning, becoming dizzy with unsteady gait, difficult to redirect. 12/22: continue tx. He reports I'm a super, super human being, I don't need to sleep. Pt writing on menu, disorganized to focused and complete task of electing his meals while on the unit. Per nursing, pt did not sleep last night. He was again restless, disrobing at times. He did follow this marine underwriter after when attempted to meet with other pts. Pt needed redirection. 12/23: smearing feces on jeffrey and floor of bathroom last night, refused to change fecally soiled socks, placing fecal material in his doorway, pushing through others to do laps, moving others as they sat in their chairs. took meds this morning for the first time this admission, sound asleep late morning. hearing scheduled for tomorrow. continue current mgmt. 12/24: refusing interview. continued disorganized behavior overnight. committed and meds ordered. 12/25: disrobing in kitchen. if you offer me meds, i have the right to punch you in the stomach. refused PO meds, IMs given as per haley's order. 12/26: opting for IMs. terse, guarded, irritable. 12/27: remains terse and guarded, but taking meds PO as of last NOC. 12/28: no change in presentation or treatment. 12/29: after several days of PO meds, refused again this morning and got IMs. wandering into particular female peer's room repeatedly, putting his clothes in the toilet, urinating while seated at his desk, knocked meds out of RN's hand. put pt on 1:1 for safety, otherwise continue current mgmt. 12/30: IMs again last night for PO refusal. no change in presentation today - terse, avoidant, glaring, minimally responsive. 12/31: still refusing PO meds, getting IMs. no change in presentation. 01/01: still refusing PO meds, getting IMs. no change in presentation. manually removing feces from his anus. demanding nursing staff get naked with him. 01/02: refusing PO meds but passively accepting IMs. 01/03: remains on close obs. still refusing mood stabilizers, receiving ativan and haldol IM 01/04/2023 Patient generally refusing p.o. medication receiving IM antipsychotic 01/05/2023 Patient for an extended period of time is apparently not been cooperative with taking p.o. medication became convinced he just needs multiple supplements. He would clearly benefit from a long-acting injectable chart reviewed patient had ECT in 2008 says secondary to suicidal depression and psychosis and apparently at that time responded quite well he clearly has a bipolar component would benefit from acceptance of Depakote/lithium cannot take in information about his condition. 01/06: message left for kassy re h/o invega. if there is evidence pt has tolerated invega in the past will likely start EVANS sustenna. no change in presentation, still refusing PO meds. 01/07: case d/w kassy, pt has never been on invega to his knowledge. invega sustenna 156 mg given today. IM haldol orders DCed. will change IM ativan to IM valium once it is established that invega causes no intolerable side effects. 01/08: no change in presentation. continue current mgmt for now. 01/09: no change in presentation. continue current mgmt for now. 01/10: no change in presentation. continue current mgmt for now. Consider reintroducing Haldol while Invega takes effect. 01/11: does not appear to be suffering any side effects from invega. 234 mg dose ordered for . will restart second antipsychotic at some point in the next week. DC ativan IM and start valium IM for longer coverage. 01/12: invega 234 mg IM ordered for tomorrow. continue current mgmt. 01/13: no change in presentation. continue current mgmt. 01/14: no change in presentation or mgmt. received invega sustenna 234 mg IM yesterday 01/13. threw food/food tray at [facility] staff, placed on safety tray. 01/15: invega next due 02/10. tolerating it fine, apparently. start second antipsychotic, zyprexa, per haley's order. otherwise continue current mgmt. behaviors continue to be irritable and aggressive. 01/16: grossly psychotic, agitated, naked in his room, refused PO needed IM as per court order. 01/17 still grossly psychotic refusing p.o. getting IM as per court order 01/18 Continue treatment plan Invega loading strategy has been followed by Elizabethl might benefit from ECT however not on treatment order 01/19/23 inc zyprexa im aggressive hostile has recieved invega now olanzapine will not engage Decreased IM to 5 mg unclear if contributing to any confusion agitation. Zyprexa increased to 10 mg IM Invega does not seem to have been helpful Question akathisia 01/21/2023 Recent increase in olanzapine to 10 mg no clear benefit to this point Invega should be at therapeutic levels has not been effective has not been taking any mood stabilizing bipolar agents Most likely will require ECT which he has had previously Reason for continued inpatient stay Substantial Risk for: harm to others, inability to function and rapid decompensation Time Spent With Patient Time: Total time managing care of this patient today ____ minutes.
[2023-01-21 18:00] VITALS: PULSE 102; RESP 16
[2023-01-22 08:00] VITALS: BP 131/74; PULSE 96; RESP 18; TEMP 36.4; O2SAT 98
[2023-01-22] MEDS: OLANZapine 10 MG VIAL IM ×2 (08:32→21:29)
[2023-01-22] MEDS: diazePAM 10 MG/2 ML CARTRIDGE 5 MG IM ×2 (08:32→21:29)
--- NOTE | 2023-01-22 16:27 | P.PNPSI_ITS ---
Subjective Subjective Date of Service: 01/22/23 Reason For Visit: Psychosis Subjective Notes: Section 8 Interim History: Pt withdrawn dysphoric irritable Medication Compliance: Yes Mental Status Exam Mental Status Exam Narrative: Yelling ?fuck you get out of my room? will not engage in conversation Patient Appearance: Disheveled and Inappropriate Patient Orientation: Person and Situation Level of Consciousness: Restless and Inappropriate Patient Behavior: Aggressive, Belligerent, Uncooperative and Impulsive Mood Description: Labile and Apprehensive Affect Description: Anxious, Labile, Angry and Apprehensive Ability to Follow Directions: Poor Speech Pattern: Impoverished and Rambling Hallucinations: Auditory Delusions: Paranoid Ideation and Ideas of Reference Thought Process: Incoherent and Illogical Thought Content: positive for Incoherent and positive for Disorganized Abnormal Motor Activity Signs and Symptoms: Agitation Judgement: Poor Diagnostics Vital Signs (24Hr): Vital Signs - 24 hr 01/21/23 18:00 01/22/23 08:00 Temperature 97.6 F Pulse Rate 102 H 96 Respiratory Rate 16 18 Blood Pressure 131/74 Pulse Oximetry 98 Oxygen Delivery Method Room Air BMI result Body Mass Index 28.1 Labs 12/14/22 02:33 12/15/22 09:08 Imaging Radiology Impressions: ITS Impressions Cervical Spine CT 12/14/22 08:06 IMPRESSION: 1. No acute intracranial, maxillofacial bone, or cervical abnormalities. 2. Right frontal cephalohematoma, not associated with fracture. 3. Coarse, lobulated calcification in the fourth ventricle, need to be further evaluated by MRI without and with contrast. 4. Degenerative changes in the cervical spine. Face CT 12/14/22 08:06 IMPRESSION: 1. No acute intracranial, maxillofacial bone, or cervical abnormalities. 2. Right frontal cephalohematoma, not associated with fracture. 3. Coarse, lobulated calcification in the fourth ventricle, need to be further evaluated by MRI without and with contrast. 4. Degenerative changes in the cervical spine. Head CT 12/14/22 08:06 IMPRESSION: 1. No acute intracranial, maxillofacial bone, or cervical abnormalities. 2. Right frontal cephalohematoma, not associated with fracture. 3. Coarse, lobulated calcification in the fourth ventricle, need to be further evaluated by MRI without and with contrast. 4. Degenerative changes in the cervical spine. Brain MRI 12/14/22 13:15 IMPRESSION: There is a 1.0 cm densely calcified lobulated lesion centered within the right anterior aspect of the fourth ventricle demonstrating peripheral enhancement. Differential considerations include a calcified choroid plexus cyst, choroid plexus papilloma, or intraventricular meningioma. The fourth ventricle remains patent without evidence of fourth ventricular outflow obstruction. No hydrocephalus. Generalized parenchymal volume loss and nonspecific white matter disease, likely mild chronic microangiopathy. Right frontal scalp hematoma. Medications Medications Current Medications Acetaminophen (Acetaminophen 325 Mg Tablet) 650 mg PO Q6H PRN PRN Reason: Headache/Pain Mild Scale (1-3) Al Hydroxide/Mg Hydroxide (Magnesium Hydrox/Alum Hydrox 30 Ml Oral.Susp) 30 ml PO Q6H PRN PRN Reason: Heartburn/Nausea Carbamazepine (Carbamazepine Er 200 Mg Tab.Er.12h) 200 mg PO DAILY [facility] Last Admin: 01/22/23 08:22 Dose: Not Given Carbamazepine (Carbamazepine Er 200 Mg Tab.Er.12h) 400 mg PO BEDTIME [facility] Last Admin: 01/21/23 21:00 Dose: Not Given Diazepam (Diazepam 10 Mg/2 Ml Cartridge) 5 mg IM BID PRN PRN Reason: refusal of PO medications Last Admin: 01/22/23 08:32 Dose: 5 mg Hydroxyzine HCl (Hydroxyzine Hcl 25 Mg Tablet) 25 mg PO Q6H PRN PRN Reason: Anxiety [place] Carbonate ([place] Carbonate Er 450 Mg Tablet.Er) 900 mg PO BEDTIME [facility] Last Admin: 01/21/23 21:00 Dose: Not Given [place] Carbonate ([place] Carbonate 300 Mg Capsule) 600 mg PO DAILY [facility] Last Admin: 01/22/23 08:22 Dose: Not Given Magnesium Hydroxide (Milk Of Magnesia 30 Ml Oral.Susp) 30 ml PO DAILY PRN PRN Reason: Constipation Olanzapine (Olanzapine 10 Mg Tablet) 20 mg PO BID [facility] Last Admin: 01/22/23 08:22 Dose: Not Given Olanzapine (Olanzapine 10 Mg Vial) 10 mg IM BID PRN PRN Reason: refusal of PO olanzapine Last Admin: 01/22/23 08:32 Dose: 10 mg Paliperidone Palmitate (Paliperidone Palmitate 234 Mg/1.5 Ml Syringe) 234 mg IM Q30D [facility] Last Admin: 01/13/23 10:54 Dose: 234 mg Psyllium Hydrophilic Mucilloid (Psyllium Seed 3.4 Gm Powd.Pack) 3.4 gm PO BID [facility] Last Admin: 01/22/23 08:37 Dose: Not Given Trazodone HCl (Trazodone Hcl 50 Mg Tablet) 50 mg PO BEDTIME PRN PRN Reason: Insomnia Trazodone HCl (Trazodone Hcl 50 Mg Tablet) 50 mg PO BEDTIME MRX1 PRN PRN Reason: Insomnia Allergies Allergies Allergy/AdvReac Type Severity Reaction Status Date / Time bupropion [From Wellbutrin] Allergy Mild CAUSES Verified 12/03/22 00:30 SWOLLEN HEAD tetracycline [Tetracycline] Allergy Mild UNKNOWN Verified 12/03/22 00:30 trifluoperazine Allergy Mild UNKNOWN Verified 12/03/22 00:30 [From Stelazine] clozapine [From Clozaril] AdvReac Mild SEIZURES,NE Verified 12/03/22 00:30 UTROPENIA Assessment & Plan Assessment & Plan (1) Schizoaffective disorder, bipolar type: Status: Acute Code(s): F25.0 - Schizoaffective disorder, bipolar type Plan 12/15: offer medications. 12/16: completed commitment paperwork. defecated in paper bag and left it in the hallway, removed shirt and not responsive to direction to cover up. postured at staff attempting to enforce limits. 12/17: no change in presentation. continue current mgmt. filed for commitment. 12/18 continue tx. not taking medications. 12/20: Last night disrobing. Continue to offer medications. Declining these. Court hearing to be scheduled. 12/21: continue tx. Pt's underwear and hospital gown covered in urine, pt instructed to change to clean gown. Pt moved away to his room, gesturing and talking to himself. Per nursing, pt only slept about 2 hrs. Pt declined medications for sleep and psychiatric illness. He pushed RN last night and was disrobing through the night in the [place]. He was spinning, becoming dizzy with unsteady gait, difficult to redirect. 12/22: continue tx. He reports I'm a super, super human being, I don't need to sleep. Pt writing on menu, disorganized to focused and complete task of electing his meals while on the unit. Per nursing, pt did not sleep last night. He was again restless, disrobing at times. He did follow this flex o writer operator after when attempted to meet with other pts. Pt needed redirection. 12/23: smearing feces on jeffrey and floor of bathroom last night, refused to change fecally soiled socks, placing fecal material in his doorway, pushing through others to do laps, moving others as they sat in their chairs. took me ds this morning for the first time this admission, sound asleep late morning. hearing scheduled for tomorrow. continue current mgmt. 12/24: refusing interview. continued disorganized behavior overnight. committed and meds ordered. 12/25: disrobing in kitchen. if you offer me meds, i have the right to punch you in the stomach. refused PO meds, IMs given as per haley's order. 12/26: opting for IMs. terse, guarded, irritable. 12/27: remains terse and guarded, but taking meds PO as of last NOC. 12/28: no change in presentation or treatment. 12/29: after several days of PO meds, refused again this morning and got IMs. wandering into particular female peer's room repeatedly, putting his clothes in the toilet, urinating while seated at his desk, knocked meds out of RN's hand. put pt on 1:1 for safety, otherwise continue current mgmt. 12/30: IMs again last night for PO refusal. no change in presentation today - terse, avoidant, glaring, minimally responsive. 12/31: still refusing PO meds, getting IMs. no change in presentation. 01/01: still refusing PO meds, getting IMs. no change in presentation. manually removing feces from his anus. demanding nursing staff get naked with him. 01/02: refusing PO meds but passively accepting IMs. 01/03: remains on close obs. still refusing mood stabilizers, receiving ativan and haldol IM 01/04/2023 Patient generally refusing p.o. medication receiving IM antipsychotic 01/05/2023 Patient for an extended period of time is apparently not been cooperative with taking p.o. medication became convinced he just needs multiple supplements. He would clearly benefit from a long-acting injectable chart reviewed patient had ECT in 2008 says secondary to suicidal depression and psychosis and apparently at that time responded quite well he clearly has a bipolar component would benefit from acceptance of Depakote/lithium cannot take in information about his condition. 01/06: message left for kassy re h/o invega. if there is evidence pt has to lerated invega in the past will likely start EVANS sustenna. no change in presentation, still refusing PO meds. 01/07: case d/w kassy, pt has never been on invega to his knowledge. invega sustenna 156 mg given today. IM haldol orders DCed. will change IM ativan to IM valium once it is established that invega causes no intolerable side effects. 01/08: no change in presentation. continue current mgmt for now. 01/09: no change in presentation. continue current mgmt for now. 01/10: no change in presentation. continue current mgmt for now. Consider reintroducing Haldol while Invega takes effect. 01/11: does not appear to be suffering any side effects from invega. 234 mg dose ordered for . will restart second antipsychotic at some point in the next week. DC ativan IM and start valium IM for longer coverage. 01/12: invega 234 mg IM ordered for tomorrow. continue current mgmt. 01/13: no change in presentation. continue current mgmt. 01/14: no change in presentation or mgmt. received invega sustenna 234 mg IM yesterday 01/13. threw food/food tray at [place] staff, placed on safety tray. 01/15: invega next due 02/10. tolerating it fine, apparently. start second antipsychotic, zyprexa, per haley's order. otherwise continue current mgmt. behaviors continue to be irritable and aggressive. 01/16: grossly psychotic, agitated, naked in his room, refused PO needed IM as per court order. 01/17 still grossly psychotic refusing p.o. getting IM as per court order 01/18 Continue treatment plan Invega loading strategy has been followed by Elizabethl might benefit from ECT however not on treatment order 01/19/23 inc zyprexa im aggressive hostile has recieved invega now olanzapine will not engage Decreased IM to 5 mg unclear if contributing to any confusion agitation. Zyprexa increased to 10 mg IM Invega does not seem to have been helpful Question akathisia 01/21/2023 Recent increase in olanzapine to 10 mg no clear benefit to this point Invega should be at therapeutic levels has not been effective has not been taking any mood stabilizing bipolar agents Most likely will require ECT which he has had previously 01/22/23 Patient continues generally not responsive to current treatment with Invega olanzapine recently increased would continue for another few days if no response which change to haloperidol Reason for continued inpatient stay Substantial Risk for: harm to others, inability to function and rapid de compensation Time Spent With Patient Time: Total time managing care of this patient today ____ minutes.
[2023-01-22 20:20] VITALS: RESP 18
[2023-01-23] MEDS: diazePAM 10 MG/2 ML CARTRIDGE 5 MG IM (08:26)
[2023-01-23] MEDS: OLANZapine 10 MG VIAL IM (08:27)
--- NOTE | 2023-01-23 12:39 | P.PNPSI_ITS ---
Subjective Subjective Date of Service: 01/23/23 Reason For Visit: Psychosis Subjective Notes: Section 8 Interim History: Patient was seen and discussed in rounds today. Records and plans were reviewed. He continues to be on one-to-one observation with locked bathroom. He is loud, impulsive, pacing and having episodes of urinating at will no on his bed, in the room. In rounds we discussed the fact that he may have done better on Haldol in the past so I will decrease his Zyprexa to 20 mg daily and add Haldol 10 mg at night. Review of Systems Review of Systems patient refused to answer review system Yes Unobtainable due to mental status Mental Status Exam Mental Status Exam Narrative: In today's visit he is alert, minimally interactive, dismissive and would only give one-word answers or no answers. I could not assess and formally but appears to be preoccupied and probably delusional. Diagnostics Vital Signs (24Hr): Vital Signs - 24 hr 01/22/23 20:20 Respiratory Rate 18 BMI result Body Mass Index 28.1 Labs 12/14/22 02:33 12/15/22 09:08 Imaging Radiology Impressions: ITS Impressions Cervical Spine CT 12/14/22 08:06 IMPRESSION: 1. No acute intracranial, maxillofacial bone, or cervical abnormalities. 2. Right frontal cephalohematoma, not associated with fracture. 3. Coarse, lobulated calcification in the fourth ventricle, need to be further evaluated by MRI without and with contrast. 4. Degenerative changes in the cervical spine. Face CT 12/14/22 08:06 IMPRESSION: 1. No acute intracranial, maxillofacial bone, or cervical abnormalities. 2. Right frontal cephalohematoma, not associated with fracture. 3. Coarse, lobulated calcification in the fourth ventricle, need to be further evaluated by MRI without and with contrast. 4. Degenerative changes in the cervical spine. Head CT 12/14/22 08:06 IMPRESSION: 1. No acute intracranial, maxillofacial bone, or cervical abnormalities. 2. Right frontal cephalohematoma, not associated with fracture. 3. Coarse, lobulated calcification in the fourth ventricle, need to be further evaluated by MRI without and with contrast. 4. Degenerative changes in the cervical spine. Brain MRI 12/14/22 13:15 IMPRESSION: There is a 1.0 cm densely calcified lobulated lesion centered within the right anterior aspect of the fourth ventricle demonstrating peripheral enhancement. Differential considerations include a calcified choroid plexus cyst, choroid plexus papilloma, or intraventricular meningioma. The fourth ventricle remains patent without evidence of fourth ventricular outflow obstruction. No hydrocephalus. Generalized parenchymal volume loss and nonspecific white matter disease, likely mild chronic microangiopathy. Right frontal scalp hematoma. Medications Medications Current Medications Acetaminophen (Acetaminophen 325 Mg Tablet) 650 mg PO Q6H PRN PRN Reason: Headache/Pain Mild Scale (1-3) Al Hydroxide/Mg Hydroxide (Magnesium Hydrox/Alum Hydrox 30 Ml Oral.Susp) 30 ml PO Q6H PRN PRN Reason: Heartburn/Nausea Carbamazepine (Carbamazepine Er 200 Mg Tab.Er.12h) 200 mg PO DAILY [facility] Last Admin: 01/23/23 08:31 Dose: Not Given Carbamazepine (Carbamazepine Er 200 Mg Tab.Er.12h) 400 mg PO BEDTIME [facility] Last Admin: 01/22/23 22:07 Dose: Not Given Diazepam (Diazepam 10 Mg/2 Ml Cartridge) 5 mg IM BID PRN PRN Reason: refusal of PO medications Last Admin: 01/23/23 08:26 Dose: 5 mg Hydroxyzine HCl (Hydroxyzine Hcl 25 Mg Tablet) 25 mg PO Q6H PRN PRN Reason: Anxiety [place] Carbonate ([place] Carbonate Er 450 Mg Tablet.Er) 900 mg PO BEDTIME [facility] Last Admin: 01/22/23 22:07 Dose: Not Given [place] Carbonate ([place] Carbonate 300 Mg Capsule) 600 mg PO DAILY [facility] Last Admin: 01/23/23 08:31 Dose: Not Given Magnesium Hydroxide (Milk Of Magnesia 30 Ml Oral.Susp) 30 ml PO DAILY PRN PRN Reason: Constipation Olanzapine (Olanzapine 10 Mg Tablet) 20 mg PO BID [facility] Last Admin: 01/23/23 08:31 Dose: Not Given Olanzapine (Olanzapine 10 Mg Vial) 10 mg IM BID PRN PRN Reason: refusal of PO olanzapine Last Admin: 01/23/23 08:27 Dose: 10 mg Paliperidone Palmitate (Paliperidone Palmitate 234 Mg/1.5 Ml Syringe) 234 mg IM Q30D [facility] Last Admin: 01/13/23 10:54 Dose: 234 mg Psyllium Hydrophilic Mucilloid (Psyllium Seed 3.4 Gm Powd.Pack) 3.4 gm PO BID [facility] Last Admin: 01/23/23 08:32 Dose: Not Given Trazodone HCl (Trazodone Hcl 50 Mg Tablet) 50 mg PO BEDTIME PRN PRN Reason: Insomnia Trazodone HCl (Trazodone Hcl 50 Mg Tablet) 50 mg PO BEDTIME MRX1 PRN PRN Reason: Insomnia Allergies Allergies Allergy/AdvReac Type Severity Reaction Status Date / Time bupropion [From Wellbutrin] Allergy Mild CAUSES Verified 12/03/22 00:30 SWOLLEN HEAD tetracycline [Tetracycline] Allergy Mild UNKNOWN Verified 12/03/22 00:30 trifluoperazine Allergy Mild UNKNOWN Verified 12/03/22 00:30 [From Stelazine] clozapine [From Clozaril] AdvReac Mild SEIZURES,NE Verified 12/03/22 00:30 UTROPENIA Assessment & Plan Assessment & Plan (1) Schizoaffective disorder, bipolar type: Status: Acute Code(s): F25.0 - Schizoaffective disorder, bipolar type Plan 12/15: offer medications. 12/16: completed commitment paperwork. defecated in paper bag and left it in the hallway, removed shirt and not responsive to direction to cover up. postured at staff attempting to enforce limits. 12/17: no change in presentation. continue current mgmt. filed for commitment. 12/18 continue tx. not taking medications. 12/20: Last night disrobing. Continue to offer medications. Declining these. Court hearing to be scheduled. 12/21: continue tx. Pt's underwear and hospital gown covered in urine, pt instructed to change to clean gown. Pt moved away to his room, gesturing and talking to himself. Per nursing, pt only slept about 2 hrs. Pt declined medications for sleep and psychiatric illness. He pushed RN last night and was disrobing through the night in the [place]. He was spinning, becoming dizzy with unsteady gait, difficult to redirect. 12/22: continue tx. He reports I'm a super, super human being, I don't need to sleep. Pt writing on menu, disorganized to focused and complete task of electing his meals while on the unit. Per nursing, pt did not sleep last night. He was again restless, disrobing at times. He did follow this headline writer after when attempted to meet with other pts. Pt needed redirection. 12/23: smearing feces on jeffrey and floor of bathroom last night, refused to change fecally soiled socks, placing fecal material in his doorway, pushing through others to do laps, moving others as they sat in their chairs. took meds this morning for the first time this admission, sound asleep late morning. hearing scheduled for tomorrow. continue current mgmt. 12/24: refusing interview. continued disorganized behavior overnight. committed and meds ordered. 12/25: disrobing in kitchen. if you offer me meds, i have the right to punch you in the stomach. refused PO meds, IMs given as per haley's order. 12/26: opting for IMs. terse, guarded, irritable. 12/27: remains terse and guarded, but taking meds PO as of last NOC. 12/28: no change in presentation or treatment. 12/29: after several days of PO meds, refused again this morning and got IMs. wandering into particular female peer's room repeatedly, putting his clothes in the toilet, urinating while seated at his desk, knocked meds out of RN's hand. put pt on 1:1 for safety, otherwise continue current mgmt. 12/30: IMs again last night for PO refusal. no change in presentation today - terse, avoidant, glaring, minimally responsive. 12/31: still refusing PO meds, getting IMs. no change in presentation. 01/01: still refusing PO meds, getting IMs. no change in presentation. manually removing feces from his anus. demanding nursing staff get naked with him. 01/02: refusing PO meds but passively accepting IMs. 01/03: remains on close obs. still refusing mood stabilizers, receiving ativan and haldol IM 01/04/2023 Patient generally refusing p.o. medication receiving IM antipsychotic 01/05/2023 Patient for an extended period of time is apparently not been cooperative with taking p.o. medication became convinced he just needs multiple supplements. He would clearly benefit from a long-acting injectable chart reviewed patient had ECT in 2008 says secondary to suicidal depression and psychosis and apparently at that time responded quite well he clearly has a bipolar component would benefit from acceptance of Depakote/lithium cannot take in information about his condition. 01/06: message left for kassy re h/o invega. if there is evidence pt has tolerated invega in the past will likely start EVANS sustenna. no change in presentation, still refusing PO meds. 01/07: case d/w kassy, pt has never been on invega to his knowledge. invega sustenna 156 mg given today. IM haldol orders DCed. will change IM ativan to IM valium once it is established that invega causes no intolerable side effects. 01/08: no change in presentation. continue current mgmt for now. 01/09: no change in presentation. continue current mgmt for now. 01/10: no change in presentation. continue current mgmt for now. Consider reintroducing Haldol while Invega takes effect. 01/11: does not appear to be suffering any side effects from invega. 234 mg dose ordered for . will restart second antipsychotic at some point in the next week. DC ativan IM and start valium IM for longer coverage. 01/12: invega 234 mg IM ordered for tomorrow. continue current mgmt. 01/13: no change in presentation. continue current mgmt. 01/14: no change in presentation or mgmt. received invega sustenna 234 mg IM yesterday 01/13. threw food/food tray at [place] staff, placed on safety tray. 01/15: invega next due 02/10. tolerating it fine, apparently. start second antipsychotic, zyprexa, per haley's order. otherwise continue current mgmt. behaviors continue to be irritable and aggressive. 01/16: grossly psychotic, agitated, naked in his room, refused PO needed IM as per court order. 01/17 still grossly psychotic refusing p.o. getting IM as per court order 01/18 Continue treatment plan Invega loading strategy has been followed by Elizabethl might benefit from ECT however not on treatment order 01/19/23 inc zyprexa im aggressive hostile has recieved invega now olanzapine will not engage Decreased IM to 5 mg unclear if contributing to any confusion agitation. Zyprexa increased to 10 mg IM Invega does not seem to have been helpful Question akathisia 01/21/2023 Recent increase in olanzapine to 10 mg no clear benefit to this point Invega should be at therapeutic levels has not been effective has not been taking any mood stabilizing bipolar agents Most likely will require ECT which he has had previously 01/22/23 Patient continues generally not responsive to current treatment with Invega olanzapine recently increased would continue for another few days if no response which change to haloperidol 01/23: Continue current regimen and plans. Decrease eye praxis a to 20 mg daily and had Haldol 10 mg at night Patient educated on: medication risk/benefits Reason for continued inpatient stay Substantial Risk for: inability to function and med/psych decompensation Time Spent With Patient Time: Total time managing care of this patient today ____ minutes.
[2023-01-23] MEDS: Haloperidol Lactate 5 MG/ML VIAL 10 MG IM (23:05)
[2023-01-23] MEDS: Benztropine Mesylate 2 MG/2 ML VIAL 1 MG IM (23:06)
[2023-01-24] MEDS: Haloperidol Lactate 5 MG/ML VIAL 10 MG IM (08:23)
[2023-01-24] MEDS: Benztropine Mesylate 2 MG/2 ML VIAL 1 MG IM (08:24)
--- NOTE | 2023-01-24 09:34 | P.PNPSI_ITS ---
Subjective Subjective Date of Service: 01/24/23 Reason For Visit: Psychosis Subjective Notes: Section 8 Interim History: Patient was seen and discussed in rounds today. Records and plans were reviewed. He did receive the Haldol in place of the Zyprexa last evening number but we did not give him an and Valium IM and discontinued the order. He continues to be on one-to-one, urinating and defecating in his room, on himself!. He is eating and sleeping adequately. Very little verbal interaction. No complaints or side effects. Medication Compliance: No Side effects from medications: No Attending Groups: No Review of Systems Review of Systems Yes Unobtainable due to mental status Mental Status Exam Mental Status Exam Narrative: In today's visit he is alert, minimally interactive, dismissive and would only give one-word answers or no answers. I could not assess and formally but appears to be preoccupied and probably delusional. Diagnostics Vital Signs (24Hr): BMI result Body Mass Index 28.1 Labs 12/14/22 02:33 12/15/22 09:08 Imaging Radiology Impressions: ITS Impressions Cervical Spine CT 12/14/22 08:06 IMPRESSION: 1. No acute intracranial, maxillofacial bone, or cervical abnormalities. 2. Right frontal cephalohematoma, not associated with fracture. 3. Coarse, lobulated calcification in the fourth ventricle, need to be further evaluated by MRI without and with contrast. 4. Degenerative changes in the cervical spine. Face CT 12/14/22 08:06 IMPRESSION: 1. No acute intracranial, maxillofacial bone, or cervical abnormalities. 2. Right frontal cephalohematoma, not associated with fracture. 3. Coarse, lobulated calcification in the fourth ventricle, need to be further evaluated by MRI without and with contrast. 4. Degenerative changes in the cervical spine. Head CT 12/14/22 08:06 IMPRESSION: 1. No acute intracranial, maxillofacial bone, or cervical abnormalities. 2. Right frontal cephalohematoma, not associated with fracture. 3. Coarse, lobulated calcification in the fourth ventricle, need to be further evaluated by MRI without and with contrast. 4. Degenerative changes in the cervical spine. Brain MRI 12/14/22 13:15 IMPRESSION: There is a 1.0 cm densely calcified lobulated lesion centered within the right anterior aspect of the fourth ventricle demonstrating peripheral enhancement. Differential considerations include a calcified choroid plexus cyst, choroid plexus papilloma, or intraventricular meningioma. The fourth ventricle remains patent without evidence of fourth ventricular outflow obstruction. No hydrocephalus. Generalized parenchymal volume loss and nonspecific white matter disease, likely mild chronic microangiopathy. Right frontal scalp hematoma. Medications Medications Current Medications Acetaminophen (Acetaminophen 325 Mg Tablet) 650 mg PO Q6H PRN PRN Reason: Headache/Pain Mild Scale (1-3) Al Hydroxide/Mg Hydroxide (Magnesium Hydrox/Alum Hydrox 30 Ml Oral.Susp) 30 ml PO Q6H PRN PRN Reason: Heartburn/Nausea Benztropine Mesylate (Benztropine Mesylate 2 Mg/2 Ml Vial) 1 mg IM BID PRN PRN Reason: with IM haldol Last Admin: 01/24/23 08:24 Dose: 1 mg Benztropine Mesylate (Benztropine Mesylate 1 Mg Tablet) 1 mg PO BID [facility] Last Admin: 01/24/23 08:33 Dose: Not Given Carbamazepine (Carbamazepine Er 200 Mg Tab.Er.12h) 200 mg PO DAILY [facility] Last Admin: 01/24/23 08:33 Dose: Not Given Carbamazepine (Carbamazepine Er 200 Mg Tab.Er.12h) 400 mg PO BEDTIME [facility] Last Admin: 01/23/23 23:07 Dose: Not Given Diazepam (Diazepam 10 Mg/2 Ml Cartridge) 5 mg IM BID PRN PRN Reason: refusal of PO medications Last Admin: 01/23/23 08:26 Dose: 5 mg Haloperidol (Haloperidol 5 Mg Tablet) 10 mg PO BID@0900,2100 [facility] Last Admin: 01/24/23 08:33 Dose: Not Given Haloperidol Lactate (Haloperidol Lactate 5 Mg/Ml Vial) 10 mg IM BID PRN PRN Reason: for refusal of PO Haldol Last Admin: 01/24/23 08:23 Dose: 10 mg Hydroxyzine HCl (Hydroxyzine Hcl 25 Mg Tablet) 25 mg PO Q6H PRN PRN Reason: Anxiety [place] Carbonate ([place] Carbonate Er 450 Mg Tablet.Er) 900 mg PO BEDTIME [facility] Last Admin: 01/23/23 23:06 Dose: Not Given [place] Carbonate ([place] Carbonate 300 Mg Capsule) 600 mg PO DAILY [facility] Last Admin: 01/24/23 08:33 Dose: Not Given Magnesium Hydroxide (Milk Of Magnesia 30 Ml Oral.Susp) 30 ml PO DAILY PRN PRN Reason: Constipation Paliperidone Palmitate (Paliperidone Palmitate 234 Mg/1.5 Ml Syringe) 234 mg IM Q30D [facility] Last Admin: 01/13/23 10:54 Dose: 234 mg Psyllium Hydrophilic Mucilloid (Psyllium Seed 3.4 Gm Powd.Pack) 3.4 gm PO BID [facility] Last Admin: 01/24/23 08:33 Dose: Not Given Trazodone HCl (Trazodone Hcl 50 Mg Tablet) 50 mg PO BEDTIME PRN PRN Reason: Insomnia Trazodone HCl (Trazodone Hcl 50 Mg Tablet) 50 mg PO BEDTIME MRX1 PRN PRN Reason: Insomnia Allergies Allergies Allergy/AdvReac Type Severity Reaction Status Date / Time bupropion [From Wellbutrin] Allergy Mild CAUSES Verified 12/03/22 00:30 SWOLLEN HEAD tetracycline [Tetracycline] Allergy Mild UNKNOWN Verified 12/03/22 00:30 trifluoperazine Allergy Mild UNKNOWN Verified 12/03/22 00:30 [From Stelazine] clozapine [From Clozaril] AdvReac Mild SEIZURES,NE Verified 12/03/22 00:30 UTROPENIA Assessment & Plan Assessment & Plan (1) Schizoaffective disorder, bipolar type: Status: Acute Code(s): F25.0 - Schizoaffective disorder, bipolar type Plan 12/15: offer medications. 12/16: completed commitment paperwork. defecated in paper bag and left it in the hallway, removed shirt and not responsive to direction to cover up. postured at staff attempting to enforce limits. 12/17: no change in presentation. continue current mgmt. filed for commitment. 12/18 continue tx. not taking medications. 12/20: Last night disrobing. Continue to offer medications. Declining these. Court hearing to be scheduled. 12/21: continue tx. Pt's underwear and hospital gown covered in urine, pt instruc parris to change to clean gown. Pt moved away to his room, gesturing and talking to himself. Per nursing, pt only slept about 2 hrs. Pt declined medications for sleep and psychiatric illness. He pushed RN last night and was disrobing through the night in the [place]el[place]. He was spinning, becoming dizzy with unsteady gait, difficult to redirect. 12/22: continue tx. He reports I'm a super, super human being, I don't need to sleep. Pt writing on menu, disorganized to focused and complete task of electing his meals while on the unit. Per nursing, pt did not sleep last night. He was again restless, disrobing at times. He did follow this customs entry writer after when attempted to meet with other pts. Pt needed redirection. 12/23: smearing feces on jeffrey and floor of bathroom last night, refused to change fecally soiled socks, placing fecal material in his doorway, pushing through others to do laps, moving others as they sat in their chairs. took meds this morning for the first time this admission, sound asleep late morning. hearing scheduled for tomorrow. continue current mgmt. 12/24: refusing interview. continued disorganized behavior overnight. committed and meds ordered. 12/25: disrobing in kitchen. if you offer me meds, i have the right to punch you in the stomach. refused PO meds, IMs given as per haley's order. 12/26: opting for IMs. terse, guarded, irritable. 12/27: remains terse and guarded, but taking meds PO as of last NOC. 12/28: no change in presentation or treatment. 12/29: after several days of PO meds, refused again this morning and got IMs. wandering into particular female peer's room repeatedly, putting his clothes in the toilet, urinating while seated at his desk, knocked meds out of RN's hand. put pt on 1:1 for safety, otherwise continue current mgmt. 12/30: IMs again last night for PO refusal. no change in presentation today - terse, avoidant, glaring, minimally responsive. 12/31: still refusing PO meds, getting IMs. no change in presentation. 01/01: still refusing PO meds, getting IMs. no change in presentation. manually removing feces from his anus. demanding nursing staff get naked with him. 01/02: refusing PO meds but passively accepting IMs. 01/03: remains on close obs. still refusing mood stabilizers, receiving ativan and haldol IM 01/04/2023 Patient generally refusing p.o. medication receiving IM antipsychotic 01/05/2023 Patient for an extended period of time is apparently not been cooperative with taking p.o. medication became convinced he just needs multiple supplements. He would clearly benefit from a long-acting injectable chart reviewed patient had ECT in 2008 says secondary to suicidal depression and psychosis and apparently at that time responded quite well he clearly has a bipolar component would benefit from acceptance of Depakote/lithium cannot take in information about his condition. 01/06: message left for kassy re h/o invega. if there is evidence pt has tolerated invega in the past will likely start EVANS sustenna. no change in presentation, still refusing PO meds. 01/07: case d/w kassy, pt has never been on invega to his knowledge. invega sustenna 156 mg given today. IM haldol orders DCed. will change IM ativan to IM valium once it is established that invega causes no intolerable side effects. 01/08: no change in presentation. continue current mgmt for now. 01/09: no change in presentation. continue current mgmt for now. 01/10: no change in presentation. continue current mgmt for now. Consider kirt ntroducing Haldol while Invega takes effect. 01/11: does not appear to be suffering any side effects from invega. 234 mg dose ordered for . will restart second antipsychotic at some point in the next week. DC ativan IM and start valium IM for longer coverage. 01/12: invega 234 mg IM ordered for tomorrow. continue current mgmt. 01/13: no change in presentation. continue current mgmt. 01/14: no change in presentation or mgmt. received invega sustenna 234 mg IM yesterday 01/13. threw food/food tray at [place] staff, placed on safety tray. 01/15: invega next due 02/10. tolerating it fine, apparently. start second antipsychotic, zyprexa, per haley's order. otherwise continue current mgmt. behaviors continue to be irritable and aggressive. 01/16: grossly psychotic, agitated, naked in his room, refused PO needed IM as per court order. 01/17 still grossly psychotic refusing p.o. getting IM as per court order 01/18 Continue treatment plan Invega loading strategy has been followed by Elizabethl might benefit from ECT however not on treatment order 01/19/23 inc zyprexa im aggressive hostile has recieved invega now olanzapine will not engage Decreased IM to 5 mg unclear if contributing to any confusion agitation. Zyprexa increased to 10 mg IM Invega does not seem to have been helpful Question akathisia 01/21/2023 Recent increase in olanzapine to 10 mg no clear benefit to this point Invega should be at therapeutic levels has not been effective has not been taking any mood stabilizing bipolar agents Most likely will require ECT which he has had previously 01/22/23 Patient continues generally not responsive to current treatment with Invega olanzapine recently increased would continue for another few days if no response which change to haloperidol 01/23: Continue current regimen and plans. Haldol 10 mg at BID PO/IM and Cogentin 1 mg b.i.d. p.o./IM 01/24: Continue current regimen and plans. Discontinue IM Valium for refusals Reason for continued inpatient stay Substantial Risk for: inability to function and med/psych decompensation Time Spent With Patient Time: Total time managing care of this patient today ____ minutes.
[2023-01-24] MEDS: LORazepam 1 MG TABLET 2 MG PO (15:26)
[2023-01-24] MEDS: chlorproMAZINE HCl 100 MG TABLET 200 MG PO (15:27)
[2023-01-24] MEDS: Benztropine Mesylate 1 MG TABLET PO (22:11)
[2023-01-24] MEDS: HaloperidoL 5 MG TABLET 10 MG PO (22:11)
[2023-01-24] MEDS: carBAMazepine ER 200 MG TAB.ER.12H 400 MG PO (22:11)
[2023-01-24] MEDS: Lithium Carbonate ER 450 MG TABLET.ER 900 MG PO (22:11)
[2023-01-24 22:20] VITALS: BP 132/71; PULSE 72; RESP 16; TEMP 36.4; O2SAT 97
[2023-01-25] MEDS: Lithium Carbonate 300 MG CAPSULE 600 MG PO (08:20)
[2023-01-25] MEDS: HaloperidoL 5 MG TABLET 10 MG PO ×2 (08:21→20:19)
[2023-01-25] MEDS: Benztropine Mesylate 1 MG TABLET PO ×2 (08:23→20:19)
[2023-01-25] MEDS: carBAMazepine ER 200 MG TAB.ER.12H PO (08:23)
[2023-01-25 08:41] VITALS: BP 132/61; PULSE 95; RESP 16; TEMP 36.4; O2SAT 98
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
--- NOTE | 2023-01-25 19:20 | PC.NURSE ---
While pt was in his room, pt urinated on his jose elias's and attempted to throw them at staff. Pt had to be redirected and eventually placed soiled jose elias's on the floor for staff to cook pickled meat. Pt refused to take a shower or put on clothes. Pt is currently sitting in his room without clothes on.
[2023-01-25] MEDS: Lithium Carbonate ER 450 MG TABLET.ER 900 MG PO (20:19)
[2023-01-25] MEDS: carBAMazepine ER 200 MG TAB.ER.12H 400 MG PO (20:19)
[2023-01-26 08:00] VITALS: BP 119/73; PULSE 86; TEMP 36.6; O2SAT 98
[2023-01-26] MEDS: Lithium Carbonate 300 MG CAPSULE 600 MG PO (08:39)
[2023-01-26] MEDS: HaloperidoL 5 MG TABLET 10 MG PO ×2 (08:40→21:26)
[2023-01-26] MEDS: carBAMazepine ER 200 MG TAB.ER.12H PO (08:40)
[2023-01-26] MEDS: Benztropine Mesylate 1 MG TABLET PO ×2 (08:40→21:13)
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
--- NOTE | 2023-01-26 17:12 | PC.NURSE ---
Pt's 1:1 staff reported pt used the bathroom then came out with a wet papertowel wrapped in a towel. The towel was soaked in urine. Pt placed the urine-soaked towel on the floor and said I think this is the last thing I'll pee on. When RN asked him why he had to pee in a towel and didn't use the toilet, pt said because I had to. Pt is wearing jose elias's but refuses to shower.
[2023-01-26 21:00] VITALS: BP 131/78; PULSE 88; TEMP 36.2; O2SAT 94
[2023-01-26] MEDS: carBAMazepine ER 200 MG TAB.ER.12H 400 MG PO (21:13)
[2023-01-26] MEDS: Lithium Carbonate ER 450 MG TABLET.ER 900 MG PO (21:14)
[2023-01-27] MEDS: HaloperidoL 5 MG TABLET 10 MG PO ×2 (09:57→20:55)
[2023-01-27] MEDS: Benztropine Mesylate 1 MG TABLET PO ×2 (09:57→20:55)
[2023-01-27] MEDS: carBAMazepine ER 200 MG TAB.ER.12H PO (09:57)
[2023-01-27] MEDS: Lithium Carbonate 300 MG CAPSULE 600 MG PO (09:57)
[2023-01-27 10:00] VITALS: BP 136/60; PULSE 77; RESP 18; TEMP 36.8; O2SAT 95
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
[2023-01-27] MEDS: carBAMazepine ER 200 MG TAB.ER.12H 400 MG PO (20:54)
[2023-01-27] MEDS: Lithium Carbonate ER 450 MG TABLET.ER 900 MG PO (20:54)
[2023-01-27 20:56] VITALS: BP 133/76; PULSE 74; TEMP 36.4; O2SAT 97
[2023-01-28 07:00] VITALS: BMI 27.5
[2023-01-28] MEDS: carBAMazepine ER 200 MG TAB.ER.12H PO (08:31)
[2023-01-28] MEDS: HaloperidoL 5 MG TABLET 10 MG PO ×2 (08:31→21:15)
[2023-01-28] MEDS: Benztropine Mesylate 1 MG TABLET PO ×2 (08:31→21:16)
[2023-01-28] MEDS: Lithium Carbonate 300 MG CAPSULE 600 MG PO (08:31)
[2023-01-28 10:28] VITALS: BP 129/71; PULSE 90; RESP 18; TEMP 36.8; O2SAT 98
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
[2023-01-28 21:00] VITALS: BP 150/88; PULSE 87; RESP 18; TEMP 36.3; O2SAT 99
[2023-01-28] MEDS: Lithium Carbonate ER 450 MG TABLET.ER 900 MG PO (21:15)
[2023-01-28] MEDS: carBAMazepine ER 200 MG TAB.ER.12H 400 MG PO (21:16)
[2023-01-29 08:15] VITALS: BP 130/80; PULSE 87; RESP 18; TEMP 36.7; O2SAT 98
[2023-01-29] MEDS: carBAMazepine ER 200 MG TAB.ER.12H PO (09:33)
[2023-01-29] MEDS: HaloperidoL 5 MG TABLET 10 MG PO ×2 (09:34→21:34)
[2023-01-29] MEDS: Lithium Carbonate 300 MG CAPSULE 600 MG PO (09:34)
[2023-01-29] MEDS: Benztropine Mesylate 1 MG TABLET PO ×2 (09:35→21:34)
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
[2023-01-29] MEDS: Lithium Carbonate ER 450 MG TABLET.ER 900 MG PO (21:33)
[2023-01-29] MEDS: carBAMazepine ER 200 MG TAB.ER.12H 400 MG PO (21:34)
[2023-01-29 21:37] VITALS: BP 146/80; PULSE 72; TEMP 36.8; O2SAT 100
[2023-01-30 07:50] VITALS: BP 127/68; PULSE 84; RESP 18; TEMP 36.9; O2SAT 96
[2023-01-30] MEDS: Benztropine Mesylate 1 MG TABLET PO ×2 (08:18→21:05)
[2023-01-30] MEDS: HaloperidoL 5 MG TABLET 10 MG PO ×2 (08:18→21:05)
[2023-01-30] MEDS: carBAMazepine ER 200 MG TAB.ER.12H PO (08:18)
[2023-01-30] MEDS: Lithium Carbonate 300 MG CAPSULE 600 MG PO (08:18)
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
[2023-01-30] MEDS: carBAMazepine ER 200 MG TAB.ER.12H 400 MG PO (21:05)
[2023-01-30] MEDS: Lithium Carbonate ER 450 MG TABLET.ER 900 MG PO (21:05)
[2023-01-30 21:09] VITALS: BP 129/70; PULSE 80; TEMP 37.1; O2SAT 99
[2023-01-31 08:00] VITALS: BP 151/75; PULSE 98; RESP 18; TEMP 36.6; O2SAT 98
[2023-01-31] MEDS: Lithium Carbonate 300 MG CAPSULE 600 MG PO (09:25)
[2023-01-31] MEDS: Benztropine Mesylate 1 MG TABLET PO ×2 (09:26→21:31)
[2023-01-31] MEDS: HaloperidoL 5 MG TABLET 10 MG PO ×2 (09:26→21:31)
[2023-01-31] MEDS: carBAMazepine ER 200 MG TAB.ER.12H PO (09:26)
--- NOTE | 2023-01-31 13:41 | PC.NURSE ---
1315 Pt incontinent of urine x1 , Pt was easily redirected and changed his pants promptly.
[2023-01-31] MEDS: Lithium Carbonate ER 450 MG TABLET.ER 900 MG PO (21:31)
[2023-01-31] MEDS: carBAMazepine ER 200 MG TAB.ER.12H 400 MG PO (21:31)
[2023-01-31 21:39] VITALS: BP 142/76; PULSE 84; TEMP 36.6; O2SAT 96
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
[2023-02-01 08:00] VITALS: BP 136/76; PULSE 82; RESP 16; TEMP 36.6; O2SAT 95
[2023-02-01] MEDS: carBAMazepine ER 200 MG TAB.ER.12H PO (09:07)
[2023-02-01] MEDS: Lithium Carbonate 300 MG CAPSULE 600 MG PO (09:07)
[2023-02-01] MEDS: Benztropine Mesylate 1 MG TABLET PO ×2 (09:08→20:44)
[2023-02-01] MEDS: HaloperidoL 5 MG TABLET 10 MG PO ×2 (09:08→20:45)
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
[2023-02-01 19:50] VITALS: BP 134/71; PULSE 86; RESP 18; TEMP 36.7; O2SAT 98
[2023-02-01] MEDS: carBAMazepine ER 200 MG TAB.ER.12H 400 MG PO (20:43)
[2023-02-01] MEDS: Lithium Carbonate ER 450 MG TABLET.ER 900 MG PO (20:44)
[2023-02-02] MEDS: HaloperidoL 5 MG TABLET 10 MG PO ×2 (08:47→22:16)
[2023-02-02] MEDS: Benztropine Mesylate 1 MG TABLET PO ×2 (08:47→22:16)
[2023-02-02] MEDS: Lithium Carbonate 300 MG CAPSULE 600 MG PO (08:47)
[2023-02-02] MEDS: carBAMazepine ER 200 MG TAB.ER.12H PO (08:47)
[2023-02-02 11:02] VITALS: BP 112/63; PULSE 65; TEMP 36.6; O2SAT 96
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
[2023-02-02 18:00] VITALS: BP 134/75; PULSE 74; RESP 16; TEMP 36.8; O2SAT 99
[2023-02-02] MEDS: Lithium Carbonate ER 450 MG TABLET.ER 900 MG PO (22:15)
[2023-02-02] MEDS: carBAMazepine ER 200 MG TAB.ER.12H 400 MG PO (22:16)
[2023-02-03 06:00] VITALS: BP 118/69; PULSE 72; RESP 20; TEMP 37.1; O2SAT 98
[2023-02-03] MEDS: HaloperidoL 5 MG TABLET 10 MG PO ×2 (08:44→21:57)
[2023-02-03] MEDS: Benztropine Mesylate 1 MG TABLET PO ×2 (08:44→21:56)
[2023-02-03] MEDS: carBAMazepine ER 200 MG TAB.ER.12H PO (08:44)
[2023-02-03] MEDS: Lithium Carbonate 300 MG CAPSULE 600 MG PO (08:44)
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
[2023-02-03 20:26] VITALS: BP 113/76; PULSE 76; RESP 16; TEMP 36.9; O2SAT 96
[2023-02-03] MEDS: Lithium Carbonate ER 450 MG TABLET.ER 900 MG PO (21:56)
[2023-02-03] MEDS: carBAMazepine ER 200 MG TAB.ER.12H 400 MG PO (21:56)
[2023-02-04 07:00] VITALS: BMI 28.7
[2023-02-04 09:00] VITALS: RESP 18
[2023-02-04] MEDS: Lithium Carbonate 300 MG CAPSULE 600 MG PO (10:05)
[2023-02-04] MEDS: carBAMazepine ER 200 MG TAB.ER.12H PO (10:05)
[2023-02-04] MEDS: HaloperidoL 5 MG TABLET 10 MG PO ×2 (10:06→20:51)
[2023-02-04] MEDS: Benztropine Mesylate 1 MG TABLET PO ×2 (10:06→20:51)
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
[2023-02-04 19:55] VITALS: BP 125/72; PULSE 76; RESP 18; TEMP 36.6; O2SAT 97
[2023-02-04] MEDS: Lithium Carbonate ER 450 MG TABLET.ER 900 MG PO (20:51)
[2023-02-04] MEDS: carBAMazepine ER 200 MG TAB.ER.12H 400 MG PO (20:52)
[2023-02-05] MEDS: HaloperidoL 5 MG TABLET 10 MG PO ×2 (08:46→21:00)
[2023-02-05] MEDS: Lithium Carbonate 300 MG CAPSULE 600 MG PO (08:46)
[2023-02-05] MEDS: carBAMazepine ER 200 MG TAB.ER.12H PO (08:46)
[2023-02-05] MEDS: Benztropine Mesylate 1 MG TABLET PO ×2 (08:47→21:00)
[2023-02-05 10:58] VITALS: BP 106/62; PULSE 82; RESP 18; TEMP 36.7; O2SAT 98
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
[2023-02-05 21:00] VITALS: BP 143/74; PULSE 70; RESP 18; TEMP 36.3; O2SAT 100
[2023-02-05] MEDS: Lithium Carbonate ER 450 MG TABLET.ER 900 MG PO (21:00)
[2023-02-05] MEDS: carBAMazepine ER 200 MG TAB.ER.12H 400 MG PO (21:00)
[2023-02-06 09:34] VITALS: BP 127/69; PULSE 72; RESP 16; TEMP 36.9; O2SAT 95
[2023-02-06] MEDS: Benztropine Mesylate 1 MG TABLET PO ×2 (09:44→21:09)
[2023-02-06] MEDS: carBAMazepine ER 200 MG TAB.ER.12H PO (09:44)
[2023-02-06] MEDS: HaloperidoL 5 MG TABLET 10 MG PO ×2 (09:44→21:09)
[2023-02-06] MEDS: Lithium Carbonate 300 MG CAPSULE 600 MG PO (09:45)
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
[2023-02-06 20:59] VITALS: BP 117/74; PULSE 68; RESP 18; TEMP 36.6; O2SAT 100
[2023-02-06] MEDS: Lithium Carbonate ER 450 MG TABLET.ER 900 MG PO (21:09)
[2023-02-06] MEDS: carBAMazepine ER 200 MG TAB.ER.12H 400 MG PO (21:09)
[2023-02-07 08:08] VITALS: BP 116/63; PULSE 75; RESP 16; TEMP 36.7; O2SAT 97
[2023-02-07] MEDS: HaloperidoL 5 MG TABLET 10 MG PO ×2 (08:22→20:19)
[2023-02-07] MEDS: Lithium Carbonate 300 MG CAPSULE 600 MG PO (08:22)
[2023-02-07] MEDS: carBAMazepine ER 200 MG TAB.ER.12H PO (08:22)
[2023-02-07] MEDS: Benztropine Mesylate 1 MG TABLET PO ×2 (08:22→20:19)
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
[2023-02-07 20:00] VITALS: BP 133/79; PULSE 92; RESP 16; TEMP 36.1; O2SAT 96
[2023-02-07] MEDS: carBAMazepine ER 200 MG TAB.ER.12H 400 MG PO (20:19)
[2023-02-07] MEDS: Lithium Carbonate ER 450 MG TABLET.ER 900 MG PO (20:19)
[2023-02-08 07:45] VITALS: BP 114/68; PULSE 68; RESP 18; TEMP 36.6; O2SAT 97
[2023-02-08] MEDS: Benztropine Mesylate 1 MG TABLET PO ×2 (09:15→20:58)
[2023-02-08] MEDS: carBAMazepine ER 200 MG TAB.ER.12H PO (09:16)
[2023-02-08] MEDS: HaloperidoL 5 MG TABLET 10 MG PO ×2 (09:16→20:58)
[2023-02-08] MEDS: Lithium Carbonate 300 MG CAPSULE 600 MG PO (09:16)
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
[2023-02-08 18:00] VITALS: BP 140/82; PULSE 75; TEMP 36.6; O2SAT 98
[2023-02-08 20:25] LABS: MANUAL DIFF FLAG NO
[2023-02-08 20:34] LABS: Basophils Absolute Auto 0.1 X10*3/uL (0.0-0.2); Eosinophils Absolute Auto 0.4 X10*3/uL (0.0-0.4); Eosinophils Percent Auto 4.7 % (0-4); Hematocrit 40.6 % (42.0-52.0); Imm Gran Abs Auto 0.02 X10*3/uL (0.00-0.03); Imm Gran Pct Auto 0.3 % (0.0-0.4); Lymphocytes Absolute Auto 1.7 X10*3/uL (1.2-4.9); Lymphocytes Percent Auto 22.6 % (20-40); Mean Corpuscular HGB Conc 34.5 g/dl (31.0-36.0); Mean Corpuscular Hemoglobin 31.6 pg (27.0-33.0); Mean Corpuscular Volume 91.6 fL (80.0-98.0); Mean Platelet Volume 9.6 fL (9.4-12.4); Monocytes Absolute Auto 0.6 X10*3/uL (0.1-1.2); Monocytes Percent Auto 7.9 % (2-11); Neutrophils Absolute Auto 4.8 x10*3/uL (2.0-8.3); Neutrophils Percent Auto 63.5 % (45-73); Platelet Count 284 X10*3/uL (160-400); Red Blood Count 4.43 X10*6/uL (4.60-5.80); Red Cell Distribution Width 12.2 % (11.0-16.0); White Blood Count 7.6 X10*3/uL (4.8-10.8)
[2023-02-08 20:51] LABS: Lithium 0.79 mmol/L (0.60-1.20)
[2023-02-08 20:56] LABS: Alanine Aminotransferase 33 U/L (0-40); Albumin Level 4.1 g/dL (3.5-5.0); Alkaline Phosphatase 57 U/L (39-117); Anion Gap 11 (12-20); Aspartate Amino Transferase 27 U/L (5-37); Bilirubin Direct 0.1 mg/dL (0.0-0.5); Bilirubin Total 0.3 mg/dL (0.0-1.0); Blood Urea Nitrogen 13 mg/dL (9-16); Calcium 9.4 mg/dL (8.4-10.2); Carbon Dioxide 28 mmol/L (22-29); Chloride 104 mmol/L (96-108); Creatinine Clr Calc Pharmacy 91.9; Estimated Glomerular Filt Rate > 60; Glucose Random 88 mg/dL (60-115); Potassium 4.3 mmol/L (3.3-5.1); Sodium 139 mmol/L (135-145); Total Protein 6.8 g/dL (6.5-8.0)
[2023-02-08 20:58] LABS: Carbamazepine Tegretol 5.5 mcg/mL (5.0-12.0)
[2023-02-08] MEDS: carBAMazepine ER 200 MG TAB.ER.12H 400 MG PO (20:58)
[2023-02-08] MEDS: Lithium Carbonate ER 450 MG TABLET.ER 900 MG PO (20:58)
[2023-02-09] MEDS: Lithium Carbonate 300 MG CAPSULE 600 MG PO (09:53)
[2023-02-09] MEDS: HaloperidoL 5 MG TABLET 10 MG PO ×2 (09:53→20:38)
[2023-02-09] MEDS: carBAMazepine ER 200 MG TAB.ER.12H PO (09:55)
[2023-02-09] MEDS: Benztropine Mesylate 1 MG TABLET PO ×2 (09:55→20:39)
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
[2023-02-09] MEDS: Lithium Carbonate ER 450 MG TABLET.ER 900 MG PO (20:39)
[2023-02-09] MEDS: carBAMazepine ER 200 MG TAB.ER.12H 400 MG PO (20:39)
[2023-02-09 20:44] VITALS: BP 112/68; PULSE 73; TEMP 36.8; O2SAT 97
[2023-02-10 07:52] VITALS: BP 114/62; PULSE 67; RESP 18; TEMP 36.7; O2SAT 96
[2023-02-10] MEDS: Benztropine Mesylate 1 MG TABLET PO ×2 (07:54→20:12)
[2023-02-10] MEDS: HaloperidoL 5 MG TABLET 10 MG PO ×2 (07:54→20:12)
[2023-02-10] MEDS: Lithium Carbonate 300 MG CAPSULE 600 MG PO (07:54)
[2023-02-10] MEDS: carBAMazepine ER 200 MG TAB.ER.12H PO (07:54)
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
--- NOTE | 2023-02-10 13:20 | MHC.CLN ---
NUTRITION CONSULT FOR REPORTED INADEQUATE CALORIES/NUTRITION. VISITED WITH PATIENT ON UNIT. WOULD LIKE DOUBLE PROTEIN AND DOUBLE VEGETABLE. PER CONVERSATION WITH STAFF, PATIENT DOES NOT ORDER MANY HIGHER CARB FOODS AND ONLY DRINKS LOW/NO CALORIE BEVERAGES. ALERTED KITCHEN TO SEND PATIENT DOUBLE PORTION OF PROTEIN AND VEGETABLE FOR MEALS. REVIEW OF WEIGHT HX SHOWS 10# WEIGHT GAIN X 2 MONTHS. INTAKE VERY GOOD AT MEALS. ESTIMATED CALORIE NEEDS NOT DISCUSSED WITH PATIENT. ESTIMATED ENERGY TDVNE=[id number] KCALS (27 KCALS/KG ADJUSTED BODY WEIGHT).
[2023-02-10] MEDS: carBAMazepine ER 200 MG TAB.ER.12H 400 MG PO (20:12)
[2023-02-10] MEDS: Lithium Carbonate ER 450 MG TABLET.ER 900 MG PO (20:12)
[2023-02-10 20:15] VITALS: BP 131/72; PULSE 87; TEMP 36.3; O2SAT 99
[2023-02-11 07:00] VITALS: BMI 29.6
[2023-02-11] MEDS: HaloperidoL 5 MG TABLET 10 MG PO ×2 (08:31→20:14)
[2023-02-11] MEDS: Benztropine Mesylate 1 MG TABLET PO ×2 (08:31→20:13)
[2023-02-11] MEDS: Lithium Carbonate 300 MG CAPSULE 600 MG PO (08:32)
[2023-02-11] MEDS: carBAMazepine ER 200 MG TAB.ER.12H PO (08:32)
[2023-02-11 09:14] VITALS: BP 124/68; PULSE 74; RESP 18; TEMP 36.7; O2SAT 99
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
[2023-02-11 19:50] VITALS: BP 134/70; PULSE 79; RESP 16; TEMP 36.5; O2SAT 98
[2023-02-11] MEDS: Lithium Carbonate ER 450 MG TABLET.ER 900 MG PO (20:13)
[2023-02-11] MEDS: carBAMazepine ER 200 MG TAB.ER.12H 400 MG PO (20:15)
[2023-02-12 06:00] VITALS: BP 135/78; PULSE 78; RESP 18; TEMP 36.3; O2SAT 99
[2023-02-12] MEDS: carBAMazepine ER 200 MG TAB.ER.12H PO (08:30)
[2023-02-12] MEDS: Benztropine Mesylate 1 MG TABLET PO ×2 (08:31→20:08)
[2023-02-12] MEDS: Lithium Carbonate 300 MG CAPSULE 600 MG PO (08:31)
[2023-02-12] MEDS: HaloperidoL 5 MG TABLET 10 MG PO ×2 (08:31→20:07)
[2023-02-12] MEDS: Paliperidone Palmitate 234 MG/1.5 ML SYRINGE IM (09:19)
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
[2023-02-12 19:50] VITALS: BP 133/75; PULSE 69; RESP 16; TEMP 36.8; O2SAT 99
[2023-02-12] MEDS: carBAMazepine ER 200 MG TAB.ER.12H 400 MG PO (20:07)
[2023-02-12] MEDS: Lithium Carbonate ER 450 MG TABLET.ER 900 MG PO (20:08)
[2023-02-13] MEDS: Lithium Carbonate 300 MG CAPSULE 600 MG PO (08:05)
[2023-02-13] MEDS: carBAMazepine ER 200 MG TAB.ER.12H PO (08:05)
[2023-02-13] MEDS: Benztropine Mesylate 1 MG TABLET PO ×2 (08:05→20:45)
[2023-02-13] MEDS: HaloperidoL 5 MG TABLET 10 MG PO ×2 (08:05→20:44)
[2023-02-13 08:33] VITALS: BP 111/56; PULSE 70; RESP 20; TEMP 36.7; O2SAT 96
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
[2023-02-13 19:40] VITALS: BP 129/57; PULSE 76; RESP 16; TEMP 36.6; O2SAT 98
[2023-02-13] MEDS: carBAMazepine ER 200 MG TAB.ER.12H 400 MG PO (20:44)
[2023-02-13] MEDS: Lithium Carbonate ER 450 MG TABLET.ER 900 MG PO (20:45)
[2023-02-14] MEDS: HaloperidoL 5 MG TABLET 10 MG PO ×2 (08:11→20:09)
[2023-02-14] MEDS: Benztropine Mesylate 1 MG TABLET PO ×2 (08:11→20:09)
[2023-02-14] MEDS: Lithium Carbonate 300 MG CAPSULE 600 MG PO (08:11)
[2023-02-14] MEDS: carBAMazepine ER 200 MG TAB.ER.12H PO (08:11)
[2023-02-14 08:36] VITALS: BP 119/65; PULSE 83; RESP 18; TEMP 36.7; O2SAT 97
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
[2023-02-14] MEDS: Artificial Tears Ophth Oint 3.5 GM TUBE 1 APPL EYE-BOTH ×2 (15:44→22:22)
[2023-02-14] MEDS: Lithium Carbonate ER 450 MG TABLET.ER 900 MG PO (20:09)
[2023-02-14] MEDS: carBAMazepine ER 200 MG TAB.ER.12H 400 MG PO (20:09)
[2023-02-14 20:13] VITALS: BP 122/66; PULSE 79; TEMP 36.7; O2SAT 100
[2023-02-15 08:00] VITALS: BP 123/74; PULSE 75; RESP 16; TEMP 36.3; O2SAT 98
[2023-02-15] MEDS: Lithium Carbonate 300 MG CAPSULE 600 MG PO (08:13)
[2023-02-15] MEDS: carBAMazepine ER 200 MG TAB.ER.12H PO (08:14)
[2023-02-15] MEDS: HaloperidoL 5 MG TABLET 10 MG PO ×2 (08:14→21:12)
[2023-02-15] MEDS: Benztropine Mesylate 1 MG TABLET PO ×2 (08:14→21:13)
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
[2023-02-15 18:00] VITALS: BP 129/60; PULSE 76; RESP 18; TEMP 36.9; O2SAT 96
[2023-02-15] MEDS: Lithium Carbonate ER 450 MG TABLET.ER 900 MG PO (21:13)
[2023-02-15] MEDS: carBAMazepine ER 200 MG TAB.ER.12H 400 MG PO (21:13)
[2023-02-16 06:00] VITALS: BP 125/67; PULSE 71; RESP 16; TEMP 36.7; O2SAT 97
[2023-02-16] MEDS: Lithium Carbonate 300 MG CAPSULE 600 MG PO (08:15)
[2023-02-16] MEDS: carBAMazepine ER 200 MG TAB.ER.12H PO (08:16)
[2023-02-16] MEDS: HaloperidoL 5 MG TABLET 10 MG PO ×2 (08:16→20:15)
[2023-02-16] MEDS: Benztropine Mesylate 1 MG TABLET PO ×2 (08:16→20:16)
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
[2023-02-16 19:45] VITALS: BP 126/83; PULSE 80; RESP 16; TEMP 37; O2SAT 99
[2023-02-16] MEDS: Lithium Carbonate ER 450 MG TABLET.ER 900 MG PO (20:14)
[2023-02-16] MEDS: carBAMazepine ER 200 MG TAB.ER.12H 400 MG PO (20:15)
[2023-02-16] MEDS: Psyllium seed 3.7 GM PACKET PO (20:16)
[2023-02-17 07:45] VITALS: BP 123/74; PULSE 76; RESP 18; TEMP 36.8; O2SAT 97
[2023-02-17] MEDS: Benztropine Mesylate 1 MG TABLET PO ×2 (07:50→20:09)
[2023-02-17] MEDS: Lithium Carbonate 300 MG CAPSULE 600 MG PO (07:50)
[2023-02-17] MEDS: Psyllium seed 3.7 GM PACKET PO ×2 (07:50→20:09)
[2023-02-17] MEDS: HaloperidoL 5 MG TABLET 10 MG PO ×2 (07:50→20:09)
[2023-02-17] MEDS: carBAMazepine ER 200 MG TAB.ER.12H PO (07:50)
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
[2023-02-17 20:00] VITALS: BP 119/82; PULSE 87; TEMP 36.2; O2SAT 97
[2023-02-17] MEDS: Lithium Carbonate ER 450 MG TABLET.ER 900 MG PO (20:09)
[2023-02-17] MEDS: carBAMazepine ER 200 MG TAB.ER.12H 400 MG PO (20:09)
[2023-02-18 07:00] VITALS: BMI 30.6
[2023-02-18] MEDS: Psyllium seed 3.7 GM PACKET PO ×2 (08:42→20:30)
[2023-02-18] MEDS: Benztropine Mesylate 1 MG TABLET PO ×2 (08:42→20:29)
[2023-02-18] MEDS: carBAMazepine ER 200 MG TAB.ER.12H PO (08:42)
[2023-02-18] MEDS: Lithium Carbonate 300 MG CAPSULE 600 MG PO (08:42)
[2023-02-18] MEDS: HaloperidoL 5 MG TABLET 10 MG PO ×2 (08:42→20:28)
[2023-02-18 08:44] VITALS: BP 146/76; PULSE 66; RESP 20; TEMP 36.3; O2SAT 99
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
[2023-02-18 19:45] VITALS: BP 116/62; PULSE 76; RESP 16; TEMP 37; O2SAT 97
[2023-02-18] MEDS: Lithium Carbonate ER 450 MG TABLET.ER 900 MG PO (20:28)
[2023-02-18] MEDS: carBAMazepine ER 200 MG TAB.ER.12H 400 MG PO (20:28)
[2023-02-19 08:00] VITALS: BP 127/63; PULSE 75; RESP 18; TEMP 36.3; O2SAT 96
[2023-02-19] MEDS: Lithium Carbonate 300 MG CAPSULE 600 MG PO (08:37)
[2023-02-19] MEDS: carBAMazepine ER 200 MG TAB.ER.12H PO (08:37)
[2023-02-19] MEDS: HaloperidoL 5 MG TABLET 10 MG PO ×2 (08:38→21:38)
[2023-02-19] MEDS: Benztropine Mesylate 1 MG TABLET PO ×2 (08:38→21:38)
[2023-02-19] MEDS: Psyllium seed 3.7 GM PACKET PO ×2 (08:38→21:39)
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
[2023-02-19 21:35] VITALS: BP 120/72; PULSE 80; RESP 18; O2SAT 99
[2023-02-19] MEDS: carBAMazepine ER 200 MG TAB.ER.12H 400 MG PO (21:38)
[2023-02-19] MEDS: Lithium Carbonate ER 450 MG TABLET.ER 900 MG PO (21:38)
[2023-02-20 08:00] VITALS: BP 129/77; PULSE 75; RESP 18; TEMP 36.6; O2SAT 98
[2023-02-20] MEDS: carBAMazepine ER 200 MG TAB.ER.12H PO (08:50)
[2023-02-20] MEDS: Benztropine Mesylate 1 MG TABLET PO ×2 (08:50→22:24)
[2023-02-20] MEDS: HaloperidoL 5 MG TABLET 10 MG PO ×2 (08:50→22:24)
[2023-02-20] MEDS: Lithium Carbonate 300 MG CAPSULE 600 MG PO (08:50)
[2023-02-20] MEDS: Psyllium seed 3.7 GM PACKET PO ×2 (08:50→22:26)
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
[2023-02-20 22:20] VITALS: BP 122/70; PULSE 78; RESP 18; TEMP 36.8; O2SAT 97
[2023-02-20] MEDS: Lithium Carbonate ER 450 MG TABLET.ER 900 MG PO (22:24)
[2023-02-20] MEDS: carBAMazepine ER 200 MG TAB.ER.12H 400 MG PO (22:24)
[2023-02-21 08:00] VITALS: BP 126/72; PULSE 90; RESP 16; TEMP 36.4; O2SAT 97
[2023-02-21] MEDS: Benztropine Mesylate 1 MG TABLET PO ×2 (08:47→22:12)
[2023-02-21] MEDS: Psyllium seed 3.7 GM PACKET PO ×2 (08:47→22:14)
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
[2023-02-21] MEDS: HaloperidoL 5 MG TABLET 10 MG PO ×2 (08:48→22:12)
[2023-02-21] MEDS: Lithium Carbonate 300 MG CAPSULE 600 MG PO (08:48)
[2023-02-21] MEDS: carBAMazepine ER 200 MG TAB.ER.12H PO (08:48)
[2023-02-21] MEDS: carBAMazepine ER 200 MG TAB.ER.12H 400 MG PO (22:12)
[2023-02-21] MEDS: Lithium Carbonate ER 450 MG TABLET.ER 900 MG PO (22:12)
[2023-02-21 22:39] VITALS: BP 128/65; PULSE 75; RESP 18; TEMP 36.6; O2SAT 97
[2023-02-22 08:22] VITALS: BP 108/63; PULSE 73; RESP 20; TEMP 36.8; O2SAT 97
[2023-02-22] MEDS: Psyllium seed 3.7 GM PACKET PO ×2 (08:41→20:05)
[2023-02-22] MEDS: Lithium Carbonate 300 MG CAPSULE 600 MG PO (08:41)
[2023-02-22] MEDS: carBAMazepine ER 200 MG TAB.ER.12H PO (08:41)
[2023-02-22] MEDS: HaloperidoL 5 MG TABLET 10 MG PO ×2 (08:41→20:05)
[2023-02-22] MEDS: Benztropine Mesylate 1 MG TABLET PO ×2 (08:41→20:05)
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
[2023-02-22] MEDS: Lithium Carbonate ER 450 MG TABLET.ER 900 MG PO (20:05)
[2023-02-22] MEDS: carBAMazepine ER 200 MG TAB.ER.12H 400 MG PO (20:05)
[2023-02-22 20:08] VITALS: BP 134/64; PULSE 72; TEMP 36.6; O2SAT 95
[2023-02-23] MEDS: Psyllium seed 3.7 GM PACKET PO ×2 (08:19→20:03)
[2023-02-23] MEDS: Lithium Carbonate 300 MG CAPSULE 600 MG PO (08:19)
[2023-02-23] MEDS: Benztropine Mesylate 1 MG TABLET PO ×2 (08:19→20:05)
[2023-02-23] MEDS: HaloperidoL 5 MG TABLET 10 MG PO ×2 (08:19→20:04)
[2023-02-23] MEDS: carBAMazepine ER 200 MG TAB.ER.12H PO (08:20)
[2023-02-23 08:49] VITALS: BP 136/76; PULSE 70; RESP 18; TEMP 36.8; O2SAT 97
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
[2023-02-23 19:45] VITALS: BP 129/83; PULSE 75; RESP 18; TEMP 36.8; O2SAT 97
[2023-02-23] MEDS: carBAMazepine ER 200 MG TAB.ER.12H 400 MG PO (20:04)
[2023-02-23] MEDS: Lithium Carbonate ER 450 MG TABLET.ER 900 MG PO (20:04)
[2023-02-23 20:22] LABS: MANUAL DIFF FLAG NO
[2023-02-23 20:26] LABS: Basophils Absolute Auto 0.1 X10*3/uL (0.0-0.2); Basophils Percent Auto 0.9 % (0-2); Eosinophils Absolute Auto 0.3 X10*3/uL (0.0-0.4); Eosinophils Percent Auto 4.6 % (0-4); Hematocrit 37.8 % (42.0-52.0); Hemoglobin 13.1 g/dl (14.0-18.0); Imm Gran Abs Auto 0.02 X10*3/uL (0.00-0.03); Imm Gran Pct Auto 0.3 % (0.0-0.4); Lymphocytes Absolute Auto 1.8 X10*3/uL (1.2-4.9); Lymphocytes Percent Auto 25.1 % (20-40); Mean Corpuscular HGB Conc 34.7 g/dl (31.0-36.0); Mean Corpuscular Hemoglobin 32.8 pg (27.0-33.0); Mean Corpuscular Volume 94.5 fL (80.0-98.0); Mean Platelet Volume 9.8 fL (9.4-12.4); Monocytes Absolute Auto 0.7 X10*3/uL (0.1-1.2); Monocytes Percent Auto 9.3 % (2-11); Neutrophils Absolute Auto 4.2 x10*3/uL (2.0-8.3); Neutrophils Percent Auto 59.8 % (45-73); Platelet Count 288 X10*3/uL (160-400); Red Cell Distribution Width 13.5 % (11.0-16.0)
[2023-02-23 20:56] LABS: Alanine Aminotransferase 26 U/L (0-40); Alkaline Phosphatase 58 U/L (39-117); Anion Gap 10 (12-20); Aspartate Amino Transferase 20 U/L (5-37); Bilirubin Direct 0.1 mg/dL (0.0-0.5); Bilirubin Total 0.4 mg/dL (0.0-1.0); Blood Urea Nitrogen 13 mg/dL (9-16); Calcium 9.1 mg/dL (8.4-10.2); Carbon Dioxide 26 mmol/L (22-29); Chloride 106 mmol/L (96-108); Creatinine Clr Calc Pharmacy 94.7; Estimated Glomerular Filt Rate > 60; Glucose Random 75 mg/dL (60-115); Potassium 4.2 mmol/L (3.3-5.1); Sodium 138 mmol/L (135-145); Total Protein 6.6 g/dL (6.5-8.0)
[2023-02-24 08:15] VITALS: BP 133/77; PULSE 67; RESP 16; TEMP 36.3; O2SAT 97
[2023-02-24] MEDS: Benztropine Mesylate 1 MG TABLET PO ×2 (09:26→20:09)
[2023-02-24] MEDS: HaloperidoL 5 MG TABLET 10 MG PO ×2 (09:27→20:09)
[2023-02-24] MEDS: carBAMazepine ER 200 MG TAB.ER.12H PO (09:27)
[2023-02-24] MEDS: Lithium Carbonate 300 MG CAPSULE 600 MG PO (09:27)
[2023-02-24] MEDS: Psyllium seed 3.7 GM PACKET PO ×2 (09:28→20:09)
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
[2023-02-24 18:00] VITALS: BP 129/75; PULSE 79; RESP 16; TEMP 36.7; O2SAT 96
[2023-02-24] MEDS: carBAMazepine ER 200 MG TAB.ER.12H 400 MG PO (20:10)
[2023-02-24] MEDS: Lithium Carbonate ER 450 MG TABLET.ER 900 MG PO (20:10)
[2023-02-25 07:00] VITALS: BMI 30.4
[2023-02-25 07:50] VITALS: BP 122/69; PULSE 77; RESP 16; TEMP 36.8; O2SAT 97
[2023-02-25] MEDS: HaloperidoL 5 MG TABLET 10 MG PO ×2 (08:16→20:31)
[2023-02-25] MEDS: carBAMazepine ER 200 MG TAB.ER.12H PO (08:16)
[2023-02-25] MEDS: Psyllium seed 3.7 GM PACKET PO ×2 (08:17→20:30)
[2023-02-25] MEDS: Lithium Carbonate 300 MG CAPSULE 600 MG PO (08:17)
[2023-02-25] MEDS: Benztropine Mesylate 1 MG TABLET PO ×2 (08:17→20:32)
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
[2023-02-25 20:05] VITALS: BP 135/74; PULSE 78; RESP 18; TEMP 36.5; O2SAT 97
[2023-02-25] MEDS: carBAMazepine ER 200 MG TAB.ER.12H 400 MG PO (20:31)
[2023-02-25] MEDS: Lithium Carbonate ER 450 MG TABLET.ER 900 MG PO (20:31)
[2023-02-26 08:05] VITALS: BP 131/73; PULSE 74; RESP 18; TEMP 36.6; O2SAT 99
[2023-02-26] MEDS: carBAMazepine ER 200 MG TAB.ER.12H 400 MG PO ×2 (09:37→20:56)
[2023-02-26] MEDS: HaloperidoL 5 MG TABLET 10 MG PO ×2 (09:37→20:56)
[2023-02-26] MEDS: Psyllium seed 3.7 GM PACKET PO ×2 (09:37→20:57)
[2023-02-26] MEDS: Benztropine Mesylate 1 MG TABLET PO ×2 (09:37→20:57)
[2023-02-26] MEDS: Lithium Carbonate 300 MG CAPSULE 600 MG PO (09:37)
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
[2023-02-26 19:40] VITALS: BP 135/81; PULSE 75; RESP 16; TEMP 36.6; O2SAT 97
[2023-02-26] MEDS: Lithium Carbonate ER 450 MG TABLET.ER 900 MG PO (20:55)
[2023-02-27] MEDS: Psyllium seed 3.7 GM PACKET PO ×2 (08:33→20:25)
[2023-02-27] MEDS: carBAMazepine ER 200 MG TAB.ER.12H 400 MG PO ×2 (08:33→20:23)
[2023-02-27] MEDS: Benztropine Mesylate 1 MG TABLET PO ×2 (08:33→20:24)
[2023-02-27] MEDS: Lithium Carbonate 300 MG CAPSULE 600 MG PO (08:33)
[2023-02-27] MEDS: HaloperidoL 5 MG TABLET 10 MG PO ×2 (08:33→20:24)
[2023-02-27 08:37] VITALS: BP 127/75; PULSE 76; RESP 18; TEMP 36.7; O2SAT 96
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
[2023-02-27 19:40] VITALS: BP 122/72; PULSE 74; RESP 18; TEMP 36.9; O2SAT 98
[2023-02-27] MEDS: Lithium Carbonate ER 450 MG TABLET.ER 900 MG PO (20:24)
[2023-02-28] MEDS: Psyllium seed 3.7 GM PACKET PO ×2 (08:01→21:00)
[2023-02-28] MEDS: Benztropine Mesylate 1 MG TABLET PO ×2 (08:01→21:02)
[2023-02-28] MEDS: Lithium Carbonate 300 MG CAPSULE 600 MG PO (08:02)
[2023-02-28] MEDS: HaloperidoL 5 MG TABLET 10 MG PO ×2 (08:02→21:01)
[2023-02-28] MEDS: carBAMazepine ER 200 MG TAB.ER.12H 400 MG PO (08:02)
[2023-02-28 08:17] VITALS: BP 109/63; PULSE 76; RESP 18; TEMP 36.6; O2SAT 98
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
[2023-02-28 20:49] VITALS: BP 127/64; PULSE 69; TEMP 36.4; O2SAT 100
[2023-02-28] MEDS: carBAMazepine ER 100 MG TAB.ER.12H 400 MG PO (21:01)
[2023-02-28] MEDS: Lithium Carbonate ER 450 MG TABLET.ER 900 MG PO (21:01)
[2023-03-01] MEDS: Psyllium seed 3.7 GM PACKET PO ×2 (08:42→20:46)
[2023-03-01] MEDS: Lithium Carbonate 300 MG CAPSULE 600 MG PO (08:42)
[2023-03-01] MEDS: Benztropine Mesylate 1 MG TABLET PO ×2 (08:42→20:45)
[2023-03-01] MEDS: HaloperidoL 5 MG TABLET 10 MG PO ×2 (08:42→20:44)
[2023-03-01] MEDS: carBAMazepine ER 100 MG TAB.ER.12H 400 MG PO ×2 (08:47→20:43)
[2023-03-01 09:31] VITALS: BP 125/75; PULSE 76; RESP 18; TEMP 36.5; O2SAT 98
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
[2023-03-01 19:40] VITALS: BP 113/55; PULSE 73; RESP 16; TEMP 36.7; O2SAT 97
[2023-03-01] MEDS: Lithium Carbonate ER 450 MG TABLET.ER 900 MG PO (20:45)
[2023-03-02 06:00] VITALS: BP 125/67; PULSE 72; RESP 18
[2023-03-02] MEDS: HaloperidoL 5 MG TABLET 10 MG PO ×2 (08:37→20:52)
[2023-03-02] MEDS: Lithium Carbonate 300 MG CAPSULE 600 MG PO (08:37)
[2023-03-02] MEDS: carBAMazepine ER 100 MG TAB.ER.12H 400 MG PO ×2 (08:38→20:51)
[2023-03-02] MEDS: Benztropine Mesylate 1 MG TABLET PO ×2 (08:38→20:53)
[2023-03-02] MEDS: Psyllium seed 3.7 GM PACKET PO ×2 (08:39→20:51)
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
[2023-03-02 20:47] VITALS: BP 135/67; PULSE 82; RESP 16; TEMP 37.2; O2SAT 95
[2023-03-02] MEDS: Lithium Carbonate ER 450 MG TABLET.ER 900 MG PO (20:52)
[2023-03-03] MEDS: HaloperidoL 5 MG TABLET 10 MG PO ×2 (08:49→20:29)
[2023-03-03] MEDS: Benztropine Mesylate 1 MG TABLET PO ×2 (08:50→20:29)
[2023-03-03] MEDS: Psyllium seed 3.7 GM PACKET PO ×2 (08:50→20:28)
[2023-03-03] MEDS: carBAMazepine ER 100 MG TAB.ER.12H 400 MG PO (08:50)
[2023-03-03] MEDS: Lithium Carbonate 300 MG CAPSULE 600 MG PO (08:50)
[2023-03-03 09:26] VITALS: BP 119/61; PULSE 77; RESP 18; TEMP 36.6; O2SAT 77
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
[2023-03-03 20:02] VITALS: BP 123/68; PULSE 82; RESP 16; TEMP 36.5; O2SAT 96
[2023-03-03] MEDS: Lithium Carbonate ER 450 MG TABLET.ER 900 MG PO (20:29)
[2023-03-03] MEDS: carBAMazepine ER 200 MG TAB.ER.12H 400 MG PO (20:29)
[2023-03-04 07:00] VITALS: BMI 30.1
[2023-03-04 08:48] VITALS: BP 130/64; PULSE 77; RESP 20; TEMP 36.2; O2SAT 96
[2023-03-04] MEDS: Lithium Carbonate 300 MG CAPSULE 600 MG PO (08:49)
[2023-03-04] MEDS: Psyllium seed 3.7 GM PACKET PO ×2 (08:50→20:47)
[2023-03-04] MEDS: carBAMazepine ER 200 MG TAB.ER.12H 400 MG PO ×2 (08:50→20:47)
[2023-03-04] MEDS: HaloperidoL 5 MG TABLET 10 MG PO ×2 (08:50→20:47)
[2023-03-04] MEDS: Benztropine Mesylate 1 MG TABLET PO ×2 (08:50→20:47)
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
[2023-03-04] MEDS: Lithium Carbonate ER 450 MG TABLET.ER 900 MG PO (20:47)
[2023-03-04 21:10] VITALS: BP 125/66; PULSE 71; RESP 18; TEMP 36.5; O2SAT 98
[2023-03-05 08:15] VITALS: BP 104/59; PULSE 63; RESP 18; TEMP 36.6; O2SAT 97
[2023-03-05] MEDS: carBAMazepine ER 200 MG TAB.ER.12H 400 MG PO ×2 (10:22→20:27)
[2023-03-05] MEDS: Lithium Carbonate 300 MG CAPSULE 600 MG PO (10:22)
[2023-03-05] MEDS: HaloperidoL 5 MG TABLET 10 MG PO ×2 (10:22→20:26)
[2023-03-05] MEDS: Psyllium seed 3.7 GM PACKET PO ×2 (10:23→20:26)
[2023-03-05] MEDS: Benztropine Mesylate 1 MG TABLET PO ×2 (10:23→20:27)
[2023-03-05] MEDS: Lithium Carbonate ER 450 MG TABLET.ER 900 MG PO (20:27)
[2023-03-05 20:30] VITALS: BP 128/63; PULSE 67; RESP 16; TEMP 36.4; O2SAT 99
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
[2023-03-06 08:00] VITALS: BP 115/73; PULSE 78; RESP 18; TEMP 36.6; O2SAT 98
[2023-03-06] MEDS: Lithium Carbonate 300 MG CAPSULE 600 MG PO (08:40)
[2023-03-06] MEDS: carBAMazepine ER 200 MG TAB.ER.12H 400 MG PO ×2 (08:40→20:25)
[2023-03-06] MEDS: Benztropine Mesylate 1 MG TABLET PO ×2 (08:40→20:25)
[2023-03-06] MEDS: Psyllium seed 3.7 GM PACKET PO ×2 (08:41→20:26)
[2023-03-06] MEDS: HaloperidoL 5 MG TABLET 10 MG PO ×2 (08:41→20:25)
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
[2023-03-06 20:06] VITALS: BP 136/75; PULSE 71; RESP 18; TEMP 36.6; O2SAT 98
[2023-03-06] MEDS: Lithium Carbonate ER 450 MG TABLET.ER 900 MG PO (20:25)
[2023-03-07 08:00] VITALS: BP 114/55; PULSE 71; RESP 18; TEMP 37.2; O2SAT 97
[2023-03-07] MEDS: Psyllium seed 3.7 GM PACKET PO ×2 (08:33→20:59)
[2023-03-07] MEDS: Lithium Carbonate 300 MG CAPSULE 600 MG PO (08:33)
[2023-03-07] MEDS: carBAMazepine ER 200 MG TAB.ER.12H 400 MG PO ×2 (08:33→20:58)
[2023-03-07] MEDS: HaloperidoL 5 MG TABLET 10 MG PO ×2 (08:34→20:57)
[2023-03-07] MEDS: Benztropine Mesylate 1 MG TABLET PO ×2 (08:34→20:57)
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
[2023-03-07 20:00] VITALS: BP 127/66; PULSE 90; RESP 16; TEMP 36.6; O2SAT 99
[2023-03-07] MEDS: Lithium Carbonate ER 450 MG TABLET.ER 900 MG PO (20:57)
[2023-03-08 08:00] VITALS: BP 115/66; PULSE 71; RESP 18; TEMP 36.6; O2SAT 98
[2023-03-08] MEDS: carBAMazepine ER 200 MG TAB.ER.12H 400 MG PO ×2 (08:06→21:19)
[2023-03-08] MEDS: Lithium Carbonate 300 MG CAPSULE 600 MG PO (08:06)
[2023-03-08] MEDS: Benztropine Mesylate 1 MG TABLET PO ×2 (08:06→21:19)
[2023-03-08] MEDS: HaloperidoL 5 MG TABLET 10 MG PO ×2 (08:06→21:19)
[2023-03-08] MEDS: Psyllium seed 3.7 GM PACKET PO ×2 (08:07→21:32)
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
[2023-03-08 20:40] VITALS: BP 117/68; PULSE 76; RESP 16; TEMP 37.6; O2SAT 93
[2023-03-08] MEDS: Lithium Carbonate ER 450 MG TABLET.ER 900 MG PO (21:18)
[2023-03-09 08:26] VITALS: BP 111/62; PULSE 68; RESP 16; TEMP 37.6; O2SAT 97
[2023-03-09] MEDS: Psyllium seed 3.7 GM PACKET PO ×2 (08:36→21:12)
[2023-03-09] MEDS: HaloperidoL 5 MG TABLET 10 MG PO ×2 (08:37→21:11)
[2023-03-09] MEDS: Lithium Carbonate 300 MG CAPSULE 600 MG PO (08:37)
[2023-03-09] MEDS: carBAMazepine ER 200 MG TAB.ER.12H 400 MG PO ×2 (08:38→21:10)
[2023-03-09] MEDS: Benztropine Mesylate 1 MG TABLET PO ×2 (08:38→21:11)
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
[2023-03-09 20:36] LABS: MANUAL DIFF FLAG NO
[2023-03-09 20:38] LABS: Basophils Absolute Auto 0.1 X10*3/uL (0.0-0.2); Basophils Percent Auto 1.2 % (0-2); Eosinophils Absolute Auto 0.3 X10*3/uL (0.0-0.4); Eosinophils Percent Auto 4.6 % (0-4); Hematocrit 38.5 % (42.0-52.0); Hemoglobin 13.1 g/dl (14.0-18.0); Imm Gran Abs Auto 0.04 X10*3/uL (0.00-0.03); Imm Gran Pct Auto 0.6 % (0.0-0.4); Lymphocytes Absolute Auto 1.6 X10*3/uL (1.2-4.9); Lymphocytes Percent Auto 24.9 % (20-40); Mean Corpuscular Volume 93.9 fL (80.0-98.0); Mean Platelet Volume 9.8 fL (9.4-12.4); Monocytes Absolute Auto 0.5 X10*3/uL (0.1-1.2); Monocytes Percent Auto 7.6 % (2-11); Neutrophils Percent Auto 61.1 % (45-73); Platelet Count 266 X10*3/uL (160-400); Red Cell Distribution Width 13.3 % (11.0-16.0); White Blood Count 6.5 X10*3/uL (4.8-10.8)
[2023-03-09 21:05] LABS: Carbamazepine Tegretol 6.1 mcg/mL (5.0-12.0)
[2023-03-09 21:07] LABS: Alanine Aminotransferase 30 U/L (0-40); Albumin Level 4.1 g/dL (3.5-5.0); Alkaline Phosphatase 52 U/L (39-117); Anion Gap 11 (12-20); Aspartate Amino Transferase 22 U/L (5-37); Bilirubin Direct 0.1 mg/dL (0.0-0.5); Bilirubin Total 0.3 mg/dL (0.0-1.0); Blood Urea Nitrogen 21 mg/dL (9-16); Calcium 9.2 mg/dL (8.4-10.2); Carbon Dioxide 25 mmol/L (22-29); Chloride 105 mmol/L (96-108); Creatinine Clr Calc Pharmacy 96.9; Estimated Glomerular Filt Rate > 60; Glucose Random 99 mg/dL (60-115); Potassium 4.1 mmol/L (3.3-5.1); Sodium 137 mmol/L (135-145); Total Protein 6.7 g/dL (6.5-8.0)
[2023-03-09] MEDS: Lithium Carbonate ER 450 MG TABLET.ER 900 MG PO (21:10)
[2023-03-09 21:58] VITALS: BP 135/82; PULSE 71; RESP 16; TEMP 36.9; O2SAT 98
[2023-03-10] MEDS: HaloperidoL 5 MG TABLET 10 MG PO ×2 (08:34→21:21)
[2023-03-10] MEDS: Lithium Carbonate 300 MG CAPSULE 600 MG PO (08:34)
[2023-03-10] MEDS: Psyllium seed 3.7 GM PACKET PO ×2 (08:34→21:22)
[2023-03-10] MEDS: carBAMazepine ER 200 MG TAB.ER.12H 400 MG PO ×2 (08:34→21:20)
[2023-03-10] MEDS: Benztropine Mesylate 1 MG TABLET PO ×2 (08:35→21:22)
[2023-03-10 09:28] VITALS: BP 117/67; PULSE 71; RESP 18; TEMP 36.2; O2SAT 99
[2023-03-10 11:26] LABS: COVID-19 Test Negative (Negative); IDNOW Serial# 08D9AD1C
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
[2023-03-10 18:00] VITALS: BP 127/71; PULSE 67; RESP 18; TEMP 36.6; O2SAT 96
[2023-03-10] MEDS: Lithium Carbonate ER 450 MG TABLET.ER 900 MG PO (21:21)
[2023-03-11] MEDS: Psyllium seed 3.7 GM PACKET PO ×2 (08:44→20:29)
[2023-03-11] MEDS: carBAMazepine ER 200 MG TAB.ER.12H 400 MG PO ×2 (08:45→20:28)
[2023-03-11] MEDS: Benztropine Mesylate 1 MG TABLET PO ×2 (08:45→20:28)
[2023-03-11] MEDS: HaloperidoL 5 MG TABLET 10 MG PO ×2 (08:45→20:28)
[2023-03-11] MEDS: Lithium Carbonate 300 MG CAPSULE 600 MG PO (08:45)
[2023-03-11 08:51] VITALS: BP 123/70; PULSE 65; RESP 17; TEMP 36.6; O2SAT 96
[2023-03-11 11:52] VITALS: BMI 29.6
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
[2023-03-11 20:21] VITALS: BP 121/71; PULSE 66; RESP 16; TEMP 36.7; O2SAT 98
[2023-03-11] MEDS: Lithium Carbonate ER 450 MG TABLET.ER 900 MG PO (20:28)
[2023-03-12] MEDS: HaloperidoL 5 MG TABLET 10 MG PO ×2 (08:01→20:55)
[2023-03-12] MEDS: Psyllium seed 3.7 GM PACKET PO ×2 (08:01→20:57)
[2023-03-12] MEDS: carBAMazepine ER 200 MG TAB.ER.12H 400 MG PO ×2 (08:01→20:55)
[2023-03-12] MEDS: Lithium Carbonate 300 MG CAPSULE 600 MG PO (08:02)
[2023-03-12] MEDS: Benztropine Mesylate 1 MG TABLET PO ×2 (08:02→20:56)
[2023-03-12 08:12] VITALS: BP 125/64; PULSE 72; RESP 17; TEMP 36.6; O2SAT 96
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
[2023-03-12 19:55] VITALS: BP 127/65; PULSE 69; RESP 16; TEMP 36.7; O2SAT 97
[2023-03-12] MEDS: Lithium Carbonate ER 450 MG TABLET.ER 900 MG PO (20:56)
[2023-03-13] MEDS: HaloperidoL 5 MG TABLET 10 MG PO ×2 (08:29→20:24)
[2023-03-13] MEDS: Psyllium seed 3.7 GM PACKET PO ×2 (08:29→20:26)
[2023-03-13] MEDS: Benztropine Mesylate 1 MG TABLET PO ×2 (08:29→20:24)
[2023-03-13] MEDS: carBAMazepine ER 200 MG TAB.ER.12H 400 MG PO ×2 (08:30→20:25)
[2023-03-13] MEDS: Lithium Carbonate 300 MG CAPSULE 600 MG PO (08:37)
[2023-03-13 09:02] VITALS: BP 101/64; PULSE 66; RESP 18; TEMP 36.2; O2SAT 97
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
[2023-03-13 20:09] VITALS: BP 132/76; PULSE 62; RESP 16; TEMP 36.6; O2SAT 100
[2023-03-13] MEDS: Lithium Carbonate ER 450 MG TABLET.ER 900 MG PO (20:25)
[2023-03-14] MEDS: carBAMazepine ER 200 MG TAB.ER.12H 400 MG PO ×2 (08:59→20:19)
[2023-03-14] MEDS: Benztropine Mesylate 1 MG TABLET PO ×2 (08:59→20:20)
[2023-03-14] MEDS: HaloperidoL 5 MG TABLET 10 MG PO ×2 (08:59→20:19)
[2023-03-14] MEDS: Lithium Carbonate 300 MG CAPSULE 600 MG PO (08:59)
[2023-03-14] MEDS: Psyllium seed 3.7 GM PACKET PO ×2 (09:00→20:21)
[2023-03-14 09:05] VITALS: BP 124/78; PULSE 71; RESP 18; TEMP 36.3; O2SAT 100
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
[2023-03-14] MEDS: Paliperidone Palmitate 234 MG/1.5 ML SYRINGE IM (12:57)
[2023-03-14] MEDS: Lithium Carbonate ER 450 MG TABLET.ER 900 MG PO (20:20)
[2023-03-14 21:42] VITALS: BP 122/74; PULSE 69; RESP 16; TEMP 36.9; O2SAT 99
[2023-03-15 08:00] VITALS: BP 114/63; PULSE 79; RESP 18; TEMP 36.6; O2SAT 96
[2023-03-15] MEDS: Benztropine Mesylate 1 MG TABLET PO ×2 (08:39→20:55)
[2023-03-15] MEDS: HaloperidoL 5 MG TABLET 10 MG PO ×2 (08:39→20:55)
[2023-03-15] MEDS: Lithium Carbonate 300 MG CAPSULE 600 MG PO (08:39)
[2023-03-15] MEDS: carBAMazepine ER 200 MG TAB.ER.12H 400 MG PO ×2 (08:40→20:55)
[2023-03-15] MEDS: Psyllium seed 3.7 GM PACKET PO ×2 (08:40→20:57)
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
[2023-03-15 20:05] VITALS: BP 126/77; PULSE 69; RESP 18; TEMP 36.9; O2SAT 99
[2023-03-15] MEDS: Lithium Carbonate ER 450 MG TABLET.ER 900 MG PO (20:55)
[2023-03-16 08:14] VITALS: BP 121/63; PULSE 71; RESP 17; TEMP 36.3; O2SAT 98
[2023-03-16] MEDS: Benztropine Mesylate 1 MG TABLET PO ×2 (08:19→20:47)
[2023-03-16] MEDS: Psyllium seed 3.7 GM PACKET PO ×2 (08:19→20:45)
[2023-03-16] MEDS: carBAMazepine ER 200 MG TAB.ER.12H 400 MG PO ×2 (08:20→20:47)
[2023-03-16] MEDS: HaloperidoL 5 MG TABLET 10 MG PO ×2 (08:20→20:47)
[2023-03-16] MEDS: Lithium Carbonate 300 MG CAPSULE 600 MG PO (08:20)
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
[2023-03-16 20:34] VITALS: BP 143/80; PULSE 70; RESP 17; TEMP 36.8; O2SAT 98
[2023-03-16] MEDS: Lithium Carbonate ER 450 MG TABLET.ER 900 MG PO (20:47)
[2023-03-17] MEDS: HaloperidoL 5 MG TABLET 10 MG PO ×2 (07:57→21:24)
[2023-03-17] MEDS: carBAMazepine ER 200 MG TAB.ER.12H 400 MG PO ×2 (07:58→21:23)
[2023-03-17] MEDS: Lithium Carbonate 300 MG CAPSULE 600 MG PO (07:58)
[2023-03-17] MEDS: Psyllium seed 3.7 GM PACKET PO ×2 (07:59→21:23)
[2023-03-17] MEDS: Benztropine Mesylate 1 MG TABLET PO ×2 (07:59→21:24)
[2023-03-17 08:16] VITALS: BP 132/73; PULSE 70; RESP 17; TEMP 36.7; O2SAT 96
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
[2023-03-17 20:37] VITALS: BP 130/82; PULSE 74; TEMP 36.7; O2SAT 99
[2023-03-17] MEDS: Lithium Carbonate ER 450 MG TABLET.ER 900 MG PO (21:24)
[2023-03-18 07:00] VITALS: BMI 28.8
[2023-03-18 08:24] VITALS: BP 115/61; PULSE 68; RESP 18; TEMP 36.3; O2SAT 98
[2023-03-18] MEDS: carBAMazepine ER 200 MG TAB.ER.12H 400 MG PO ×2 (08:25→20:26)
[2023-03-18] MEDS: Lithium Carbonate 300 MG CAPSULE 600 MG PO (08:25)
[2023-03-18] MEDS: HaloperidoL 5 MG TABLET 10 MG PO ×2 (08:25→20:26)
[2023-03-18] MEDS: Psyllium seed 3.7 GM PACKET PO ×2 (08:25→20:26)
[2023-03-18] MEDS: Benztropine Mesylate 1 MG TABLET PO ×2 (08:25→20:26)
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
[2023-03-18 20:24] VITALS: BP 126/69; PULSE 73; RESP 18; TEMP 36.8; O2SAT 99
[2023-03-18] MEDS: Lithium Carbonate ER 450 MG TABLET.ER 900 MG PO (20:26)
[2023-03-19 08:00] VITALS: BP 129/73; PULSE 71; RESP 18; TEMP 36.4; O2SAT 97
[2023-03-19] MEDS: carBAMazepine ER 200 MG TAB.ER.12H 400 MG PO (08:19)
[2023-03-19] MEDS: Psyllium seed 3.7 GM PACKET PO ×2 (08:19→21:35)
[2023-03-19] MEDS: Lithium Carbonate 300 MG CAPSULE 600 MG PO (08:20)
[2023-03-19] MEDS: Benztropine Mesylate 1 MG TABLET PO ×2 (08:20→21:38)
[2023-03-19] MEDS: HaloperidoL 5 MG TABLET 10 MG PO ×2 (08:20→21:36)
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
[2023-03-19 20:43] VITALS: BP 126/72; PULSE 65; RESP 18; TEMP 36.8; O2SAT 99
[2023-03-19] MEDS: carBAMazepine ER 200 MG TAB.ER.12H 600 MG PO (21:36)
[2023-03-19] MEDS: Lithium Carbonate ER 450 MG TABLET.ER 900 MG PO (21:36)
[2023-03-20] MEDS: HaloperidoL 5 MG TABLET 10 MG PO ×2 (08:19→21:40)
[2023-03-20] MEDS: Benztropine Mesylate 1 MG TABLET PO ×2 (08:19→21:40)
[2023-03-20] MEDS: Lithium Carbonate 300 MG CAPSULE 600 MG PO (08:19)
[2023-03-20] MEDS: Psyllium seed 3.7 GM PACKET PO ×2 (08:19→21:40)
[2023-03-20] MEDS: carBAMazepine ER 200 MG TAB.ER.12H 400 MG PO (08:19)
[2023-03-20 09:28] VITALS: BP 101/59; PULSE 72; TEMP 36.1; O2SAT 98
[2023-03-20 20:00] VITALS: BP 127/73; PULSE 68; RESP 18; TEMP 36.8; O2SAT 98
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
[2023-03-20] MEDS: Lithium Carbonate ER 450 MG TABLET.ER 900 MG PO (21:39)
[2023-03-20] MEDS: carBAMazepine ER 200 MG TAB.ER.12H 600 MG PO (21:40)
[2023-03-21 07:45] VITALS: BP 112/68; PULSE 68; TEMP 36.6; O2SAT 97
[2023-03-21] MEDS: Psyllium seed 3.7 GM PACKET PO ×2 (08:33→20:49)
[2023-03-21] MEDS: Lithium Carbonate 300 MG CAPSULE 600 MG PO (08:33)
[2023-03-21] MEDS: Benztropine Mesylate 1 MG TABLET PO ×2 (08:33→20:48)
[2023-03-21] MEDS: carBAMazepine ER 200 MG TAB.ER.12H 400 MG PO (08:33)
[2023-03-21] MEDS: HaloperidoL 5 MG TABLET 10 MG PO ×2 (08:33→20:48)
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
[2023-03-21 19:15] VITALS: BP 119/68; PULSE 72; RESP 16; TEMP 36.6; O2SAT 98
[2023-03-21] MEDS: carBAMazepine ER 200 MG TAB.ER.12H 600 MG PO (20:48)
[2023-03-21] MEDS: Lithium Carbonate ER 450 MG TABLET.ER 900 MG PO (20:48)
[2023-03-22] MEDS: HaloperidoL 5 MG TABLET 10 MG PO ×2 (08:00→20:07)
[2023-03-22] MEDS: Benztropine Mesylate 1 MG TABLET PO ×2 (08:00→20:07)
[2023-03-22] MEDS: Lithium Carbonate 300 MG CAPSULE 600 MG PO (08:00)
[2023-03-22] MEDS: carBAMazepine ER 200 MG TAB.ER.12H 400 MG PO (08:00)
[2023-03-22] MEDS: Psyllium seed 3.7 GM PACKET PO ×2 (08:00→20:07)
[2023-03-22 08:51] VITALS: BP 129/75; PULSE 71; TEMP 36.7; O2SAT 98
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
[2023-03-22 19:57] VITALS: BP 157/75; PULSE 73; RESP 18; TEMP 36.8; O2SAT 100
[2023-03-22] MEDS: carBAMazepine ER 200 MG TAB.ER.12H 600 MG PO (20:07)
[2023-03-22] MEDS: Lithium Carbonate ER 450 MG TABLET.ER 900 MG PO (20:07)
[2023-03-23] MEDS: carBAMazepine ER 200 MG TAB.ER.12H 400 MG PO (08:26)
[2023-03-23] MEDS: Lithium Carbonate 300 MG CAPSULE 600 MG PO (08:26)
[2023-03-23] MEDS: Psyllium seed 3.7 GM PACKET PO ×2 (08:26→20:20)
[2023-03-23] MEDS: Benztropine Mesylate 1 MG TABLET PO ×2 (08:26→20:19)
[2023-03-23 08:43] VITALS: BP 104/56; PULSE 75; RESP 20; TEMP 36.2; O2SAT 96
[2023-03-23] MEDS: HaloperidoL 5 MG TABLET 10 MG PO ×2 (09:04→20:18)
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
[2023-03-23 20:09] VITALS: BP 115/66; PULSE 16; RESP 16; TEMP 36.3; O2SAT 99
[2023-03-23] MEDS: carBAMazepine ER 200 MG TAB.ER.12H 600 MG PO (20:17)
[2023-03-23] MEDS: Lithium Carbonate ER 450 MG TABLET.ER 900 MG PO (20:19)
[2023-03-24 09:30] VITALS: BP 114/68; PULSE 79; TEMP 36.7; O2SAT 94
[2023-03-24] MEDS: Psyllium seed 3.7 GM PACKET PO ×2 (09:36→20:38)
[2023-03-24] MEDS: Benztropine Mesylate 1 MG TABLET PO ×2 (09:36→20:37)
[2023-03-24] MEDS: Lithium Carbonate 300 MG CAPSULE 600 MG PO (09:36)
[2023-03-24] MEDS: carBAMazepine ER 200 MG TAB.ER.12H 400 MG PO (09:37)
[2023-03-24] MEDS: HaloperidoL 5 MG TABLET 10 MG PO ×2 (09:38→20:37)
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
[2023-03-24] MEDS: carBAMazepine ER 200 MG TAB.ER.12H 600 MG PO (20:35)
[2023-03-24] MEDS: Lithium Carbonate ER 450 MG TABLET.ER 900 MG PO (20:36)
[2023-03-24 21:00] VITALS: BP 136/76; PULSE 72; RESP 18; TEMP 36.4; O2SAT 100
[2023-03-25 07:00] VITALS: BMI 31.0
[2023-03-25 08:00] VITALS: BP 108/65; PULSE 71; TEMP 36.6; O2SAT 95
[2023-03-25] MEDS: Benztropine Mesylate 1 MG TABLET PO ×2 (08:12→20:38)
[2023-03-25] MEDS: Lithium Carbonate 300 MG CAPSULE 600 MG PO (08:12)
[2023-03-25] MEDS: HaloperidoL 5 MG TABLET 10 MG PO ×2 (08:12→20:38)
[2023-03-25] MEDS: carBAMazepine ER 200 MG TAB.ER.12H 400 MG PO (08:12)
[2023-03-25] MEDS: Psyllium seed 3.7 GM PACKET PO ×2 (08:13→20:39)
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
[2023-03-25 20:30] VITALS: BP 123/68; PULSE 78; RESP 18; TEMP 36.8; O2SAT 98
[2023-03-25 20:35] VITALS: BP 123/68; PULSE 78; RESP 18; TEMP 36.8; O2SAT 98
[2023-03-25] MEDS: Lithium Carbonate ER 450 MG TABLET.ER 900 MG PO (20:39)
[2023-03-26] MEDS: carBAMazepine ER 200 MG TAB.ER.12H 400 MG PO (08:27)
[2023-03-26] MEDS: Psyllium seed 3.7 GM PACKET PO ×2 (08:27→20:38)
[2023-03-26] MEDS: HaloperidoL 5 MG TABLET 10 MG PO ×2 (08:27→20:38)
[2023-03-26] MEDS: Benztropine Mesylate 1 MG TABLET PO ×2 (08:27→20:39)
[2023-03-26] MEDS: Lithium Carbonate 300 MG CAPSULE 600 MG PO (08:27)
[2023-03-26 10:10] VITALS: BP 123/86; PULSE 79; RESP 18; TEMP 36.2; O2SAT 95
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
[2023-03-26 19:45] VITALS: BP 146/82; PULSE 73; RESP 17; TEMP 36.9; O2SAT 99
[2023-03-26] MEDS: Lithium Carbonate ER 450 MG TABLET.ER 900 MG PO (20:38)
[2023-03-27 08:40] VITALS: BP 120/65; PULSE 75; RESP 18; TEMP 36.7; O2SAT 97
[2023-03-27] MEDS: Benztropine Mesylate 1 MG TABLET PO ×2 (09:03→20:13)
[2023-03-27] MEDS: HaloperidoL 5 MG TABLET 10 MG PO ×2 (09:03→20:14)
[2023-03-27] MEDS: Lithium Carbonate 300 MG CAPSULE 600 MG PO (09:03)
[2023-03-27] MEDS: carBAMazepine ER 200 MG TAB.ER.12H 400 MG PO (09:03)
[2023-03-27] MEDS: Psyllium seed 3.7 GM PACKET PO ×2 (09:03→20:15)
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
[2023-03-27 20:00] VITALS: BP 155/81; PULSE 71; RESP 16; TEMP 36.6; O2SAT 100
[2023-03-27] MEDS: Lithium Carbonate ER 450 MG TABLET.ER 900 MG PO (20:13)
[2023-03-28 06:00] VITALS: BP 134/73; PULSE 76; RESP 18; TEMP 36.3; O2SAT 96
[2023-03-28] MEDS: Lithium Carbonate 300 MG CAPSULE 600 MG PO (08:03)
[2023-03-28] MEDS: Psyllium seed 3.7 GM PACKET PO ×2 (08:03→20:09)
[2023-03-28] MEDS: Benztropine Mesylate 1 MG TABLET PO ×2 (08:03→20:09)
[2023-03-28] MEDS: HaloperidoL 5 MG TABLET 10 MG PO ×2 (08:04→20:09)
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
[2023-03-28 20:00] VITALS: BP 148/82; PULSE 76; RESP 18; TEMP 36.6; O2SAT 99
[2023-03-28] MEDS: Lithium Carbonate ER 450 MG TABLET.ER 900 MG PO (20:08)
[2023-03-29 08:15] VITALS: BP 139/89; PULSE 81; RESP 20; TEMP 32.7; O2SAT 95
[2023-03-29] MEDS: Lithium Carbonate 300 MG CAPSULE 600 MG PO (08:47)
[2023-03-29] MEDS: Benztropine Mesylate 1 MG TABLET PO ×2 (08:47→20:10)
[2023-03-29] MEDS: HaloperidoL 5 MG TABLET 10 MG PO ×2 (08:47→20:10)
[2023-03-29] MEDS: Psyllium seed 3.7 GM PACKET PO ×2 (08:48→20:12)
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
[2023-03-29 19:15] VITALS: BP 141/79; PULSE 72; RESP 18; TEMP 36.6; O2SAT 99
[2023-03-29] MEDS: Lithium Carbonate ER 450 MG TABLET.ER 900 MG PO (20:10)
[2023-03-30 07:44] VITALS: BP 126/68; PULSE 78; RESP 18; TEMP 36.5; O2SAT 96
[2023-03-30] MEDS: Lithium Carbonate 300 MG CAPSULE 600 MG PO (08:15)
[2023-03-30] MEDS: Psyllium seed 3.7 GM PACKET PO ×2 (08:16→20:09)
[2023-03-30] MEDS: HaloperidoL 5 MG TABLET 10 MG PO ×2 (08:16→20:08)
[2023-03-30] MEDS: Benztropine Mesylate 1 MG TABLET PO ×2 (08:16→20:08)
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
[2023-03-30 18:55] VITALS: BP 143/84; PULSE 77; RESP 16; TEMP 36.1; O2SAT 98
[2023-03-30] MEDS: Lithium Carbonate ER 450 MG TABLET.ER 900 MG PO (20:08)
[2023-03-31 06:00] VITALS: BP 134/70; PULSE 82; RESP 16; TEMP 36.6; O2SAT 98
[2023-03-31] MEDS: Lithium Carbonate 300 MG CAPSULE 600 MG PO (08:32)
[2023-03-31] MEDS: HaloperidoL 5 MG TABLET 10 MG PO ×2 (08:32→20:12)
[2023-03-31] MEDS: Benztropine Mesylate 1 MG TABLET PO ×2 (08:32→20:12)
[2023-03-31] MEDS: Psyllium seed 3.7 GM PACKET PO ×2 (08:33→20:12)
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
[2023-03-31 20:00] VITALS: BP 143/85; PULSE 76; TEMP 36.6; O2SAT 99
[2023-03-31] MEDS: carBAMazepine ER 200 MG TAB.ER.12H 600 MG PO (20:12)
[2023-03-31] MEDS: Lithium Carbonate ER 450 MG TABLET.ER 900 MG PO (20:12)
[2023-03-31 20:23] LABS: MANUAL DIFF FLAG NO
[2023-03-31 20:28] LABS: Basophils Absolute Auto 0.1 X10*3/uL (0.0-0.2); Basophils Percent Auto 0.9 % (0-2); Eosinophils Absolute Auto 0.2 X10*3/uL (0.0-0.4); Eosinophils Percent Auto 2.9 % (0-4); Hematocrit 42.1 % (42.0-52.0); Hemoglobin 15.1 g/dl (14.0-18.0); Imm Gran Abs Auto 0.01 X10*3/uL (0.00-0.03); Imm Gran Pct Auto 0.1 % (0.0-0.4); Lymphocytes Absolute Auto 1.7 X10*3/uL (1.2-4.9); Lymphocytes Percent Auto 22.8 % (20-40); Mean Corpuscular HGB Conc 35.9 g/dl (31.0-36.0); Mean Corpuscular Hemoglobin 34.1 pg (27.0-33.0); Mean Platelet Volume 9.7 fL (9.4-12.4); Monocytes Absolute Auto 0.5 X10*3/uL (0.1-1.2); Monocytes Percent Auto 6.8 % (2-11); Neutrophils Percent Auto 66.5 % (45-73); Platelet Count 278 X10*3/uL (160-400); Red Blood Count 4.43 X10*6/uL (4.60-5.80); Red Cell Distribution Width 12.4 % (11.0-16.0); White Blood Count 7.5 X10*3/uL (4.8-10.8)
[2023-03-31 20:36] LABS: Lithium 0.58 mmol/L (0.60-1.20)
[2023-03-31 20:44] LABS: Carbamazepine Tegretol 5.6 mcg/mL (5.0-12.0)
[2023-03-31 20:50] LABS: Alanine Aminotransferase 22 U/L (0-40); Albumin Level 4.6 g/dL (3.5-5.0); Alkaline Phosphatase 57 U/L (39-117); Anion Gap 15 (12-20); Aspartate Amino Transferase 23 U/L (5-37); Bilirubin Direct 0.1 mg/dL (0.0-0.5); Bilirubin Total 0.4 mg/dL (0.0-1.0); Blood Urea Nitrogen 22 mg/dL (9-16); Calcium 9.7 mg/dL (8.4-10.2); Carbon Dioxide 24 mmol/L (22-29); Chloride 102 mmol/L (96-108); Creatinine Clr Calc Pharmacy 86.4; Estimated Glomerular Filt Rate > 60; Glucose Random 83 mg/dL (60-115); Potassium 4.1 mmol/L (3.3-5.1); Sodium 137 mmol/L (135-145); Total Protein 7.9 g/dL (6.5-8.0)
[2023-04-01] MEDS: HaloperidoL 5 MG TABLET 10 MG PO ×2 (08:10→20:09)
[2023-04-01] MEDS: Psyllium seed 3.7 GM PACKET PO ×2 (08:10→21:10)
[2023-04-01] MEDS: Benztropine Mesylate 1 MG TABLET PO ×2 (08:11→20:09)
[2023-04-01] MEDS: Lithium Carbonate 300 MG CAPSULE 600 MG PO (08:11)
[2023-04-01] MEDS: carBAMazepine ER 200 MG TAB.ER.12H 400 MG PO (08:11)
[2023-04-01 08:41] VITALS: BP 140/75; PULSE 84; RESP 16; TEMP 36.3; O2SAT 98
[2023-04-01 09:52] VITALS: BMI 29.2
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
[2023-04-01] MEDS: Lithium Carbonate ER 450 MG TABLET.ER 900 MG PO (20:08)
[2023-04-01] MEDS: carBAMazepine ER 200 MG TAB.ER.12H 600 MG PO (20:10)
[2023-04-02] MEDS: Psyllium seed 3.7 GM PACKET PO (08:04)
[2023-04-02] MEDS: Lithium Carbonate 300 MG CAPSULE 600 MG PO (08:04)
[2023-04-02] MEDS: Benztropine Mesylate 1 MG TABLET PO (08:05)
[2023-04-02] MEDS: HaloperidoL 5 MG TABLET 10 MG PO (08:05)
[2023-04-02] MEDS: carBAMazepine ER 200 MG TAB.ER.12H 400 MG PO (08:08)
[2023-04-02 08:26] VITALS: BP 128/79; PULSE 78; TEMP 36.6; O2SAT 97
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
== END 2023-04-02 11:20 | disposition home or self-care (01) | DRG 885 ==
LOC: HO.ED 20:10 → HO.PADLT16 22:21
PROVIDERS: Emergency Medicine Emergency Medical Services; Admitting Provider Psychiatry & Neurology Psychiatry; Emergency Provider Emergency Medicine Emergency Medical Services; Visit Provider Psychiatry & Neurology Psychiatry
DX: F25.0 Schizoaffective disorder, bipolar type (principal); R45.851 Suicidal ideations; Z75.1 Person awaiting admission to adequate facility elsewhere; Z20.822 Contact with and (suspected) exposure to COVID-19; Z79.899 Other long term (current) drug therapy
CPT/HCPCS: 36415; 70450; 70486; 70553; 72125; 80048; 80053; 80061; 80076; 80156; 80178; 80307; 81003; 82306; 83735; 84402; 84403; 85025; 87635; 90686; 90715; 99285; A9585; J0515; J1200; J2060; J2426; J3360; S9485

== ENCOUNTER → 2022-12-14 22:16 | Outpatient (BNV) | payer OTHER, SELFPAY | PROVIDERS: Admitting Provider Psychiatry & Neurology Psychiatry; Emergency Provider Emergency Medicine Emergency Medical Services; Visit Provider Psychiatry & Neurology Psychiatry | DX: F25.0 Schizoaffective disorder, bipolar type (principal) | CPT/HCPCS: 90792; 99231; 99232; 99233; 99239 ==

== ENCOUNTER → 2022-12-14 22:16 | Outpatient (BNV) | payer OTHER, SELFPAY | PROVIDERS: Admitting Provider Psychiatry & Neurology Psychiatry; Emergency Provider Emergency Medicine Emergency Medical Services; Visit Provider Psychiatry & Neurology Psychiatry | DX: F25.0 Schizoaffective disorder, bipolar type (principal) | CPT/HCPCS: 99231; 99232; 99499 ==

== ENCOUNTER 2023-07-03 13:19 | Inpatient (IN) | payer OTHER, SELFPAY ==
[2023-07-03] VITALS (13 sets, daily range): BP systolic 109–144; BP diastolic 58–84; PULSE 67–88; RESP 17–26; TEMP 36.4–36.9; O2SAT 94–99; BMI 30.1; BMI 28.1
--- NOTE | 2023-07-03 | ECG_ITS ---
Test Reason : ?ELECTROLYTE IMALANCE Blood Pressure : / mmHG Vent. Rate : 058 BPM Atrial Rate : 058 BPM P-R Int : 164 ms QRS Dur : 116 ms QT Int : 444 ms P-R-T Axes : 064 031 -04 degrees QTc Int : 435 ms Sinus bradycardia Possible Left atrial enlargement Possible Inferior infarct , age undetermined Abnormal ECG When compared with ECG of 02-DEC-2022 12:31, No significant change was found Referred By: Generic ED Physician Electronically Signed By:AKOSUA MOROCHO MD
--- NOTE | ~2023-07-03 | CT_ITS ---
EXAMINATION: CT HEAD WITHOUT CONTRAST CLINICAL INFORMATION: Seizure. Altered mental status. COMPARISON: Brain MRI 12/14/[address] 12/14/2022. TECHNIQUE: Contiguous axial imaging was performed from the skull base to vertex without intravenous administration of contrast. This CT examination was performed using dose optimization techniques as appropriate, variously including the following: *Automated exposure control *Adjustment of mA and/or kV according to patient size (this includes techniques or standardized protocols for targeted exams where dose is matched to indication/reason for exam; i.e. extremities or head) *Use of iterative reconstruction technique DLP: 940 mGy-cm. FINDINGS: There is no intracranial hemorrhage, extra-axial collection, mass effect, or territorial infarction. The ventricles are normal in size without hydrocephalus. There is a 1.5 cm lobulated focus of calcification within the right aspect of the fourth ventricle, stable compared 12/14/2022. The calvarium is intact. There is paranasal sinus mucosal thickening including complete opacification of the right maxillary sinus. CT/CT head/brain wo IV con IMPRESSION: No acute intracranial abnormality. Stable 1.5 cm lobulated focus of calcification within the right aspect of the fourth ventricle. No hydrocephalus. Paranasal sinus mucosal thickening with complete opacification of the right maxillary sinus.
--- NOTE | ~2023-07-03 | XR_ITS ---
EXAMINATION: XR ABDOMEN KUB CLINICAL INDICATION: Evaluate for metallic foreign body pre-MRI exam COMPARISON: None available. TECHNIQUE: 3 frontal views of the abdomen. FINDINGS: ECG leads overlie the chest and abdomen. No gross focal consolidation or effusion. Nonobstructive gas pattern. Coarse calcifications in the left upper quadrant possibly related to the adrenal gland or pancreas. Phleboliths in the pelvis. No radiopaque foreign body identified. No acute osseous finding. XR/XR KUB IMPRESSION: No anticipated radiopaque foreign body identified.
--- NOTE | ~2023-07-03 | XR_ITS ---
EXAMINATION: XR CHEST CLINICAL INFORMATION: Possible aspiration, hypoxia COMPARISON: Chest radiograph 02/11/2007. TECHNIQUE: Frontal view of the chest was obtained. FINDINGS: Decreased lung volumes accentuate the pulmonary interstitial markings. No focal consolidation. No pleural effusion or pneumothorax. Normal heart size and mediastinal contours. XR/XR chest 1V IMPRESSION: No acute cardiopulmonary abnormality.
--- NOTE | 2023-07-03 13:41 | PC.NURSE ---
Arrived via ems from [facility] on [address]. Patients entire body covered in feces. Per ems patient started having loose stools and vomiting x1 hour ago and has been more lethargic. Patient alert, denies pain, but constantly repeating he must because it is gods plan. 1:1 at bedside
[2023-07-03] MEDS: LORazepam 2 MG/ML VIAL IVPUSH (15:20)
--- NOTE | 2023-07-03 15:31 | PC.NURSE ---
Alert by tech that patient was having seizure activity. Upon entering room patient with full body seizure activity for 2 minutes. Provider notified and into room to assess patient., placed on [id number] incont of large amount of urine. Given 2mg ativan via IV, sating 97% on 2 liters o2, nsr, vss
--- NOTE | 2023-07-03 15:33 | PC.NURSE ---
BS 103 provider aware, seizure pads in place
--- NOTE | 2023-07-03 15:42 | ED.GENADULT ---
HPI - General Adult General Chief complaint: Altered Mental Status Stated complaint: BOWEL INCONTINENCE,SI Time Seen by Provider: 07/03/23 15:41 History of Present Illness HPI narrative: The patient is a 57-year-old male with a history of schizoaffective disorder. He has a history of multiple psychiatric hospitalizations. He was sent to the emergency room today from the [facility] today because of diarrhea. He had been admitted to the facility over 2 weeks ago on June 17. Records from the facility show that he is on carbamazepine and lithium. The history available is that he developed significant diarrhea and was sent to the emergency room today. Further history was obtained by talking to a nurse from the facility from which she came. The nurse says that the patient has been refusing medications since he has been at the facility. Apparently he may have complained of constipation yesterday or the day before area. Today staff noticed that he was standing in a pool of liquid stool. He was encouraged to go to the toilet. Apparently he wandered around having liquid stool and seemed dazed and disorganized and hard to redirect. The nurse believes that his vital signs were normal. There is no report of fever. However given the amount of diarrhea they ultimately sent him to the hospital here. At the time that I was involved in the patient's care the patient had apparently just had a seizure. He was postictal and nonverbal. Related Data Previous Rx's Medication Instructions Recorded benztropine 1 mg tablet 1 mg PO BID 30 days #60 tabs 04/02/23 carbamazepine 200 mg 400 mg (2 x 200 mg) PO DAILY 30 04/02/23 tablet,extended release,12 hr days #60 tabs carbamazepine 200 mg 600 mg (3 x 200 mg) PO BEDTIME 30 04/02/23 tablet,extended release,12 hr days #90 tabs haloperidol 5 mg tablet 10 mg (2 x 5 mg) PO BID 30 days 04/02/23 #120 tabs lithium carbonate 450 mg 900 mg (2 x 450 mg) PO BEDTIME 30 04/02/23 tablet,extended release days #60 tabs lithium carbonate 600 mg capsule 600 mg PO DAILY 30 days #30 caps 04/02/23 paliperidone palmitate 234 mg/1.5 234 mg (1.5 mL) IM Q30D #0 mL 04/02/23 mL intramuscular syringe (Invega Sustenna) psyllium husk (aspartame) 3.4 gram 3.4 g PO DAILY 30 days #30 ea 04/02/23 oral powder packet (Metamucil Fiber Singles) Allergies Allergy/AdvReac Type Severity Reaction Status Date / Time bupropion [From Wellbutrin] Allergy Mild CAUSES Verified 12/03/22 00:30 SWOLLEN HEAD tetracycline [Tetracycline] Allergy Mild UNKNOWN Verified 12/03/22 00:30 trifluoperazine Allergy Mild UNKNOWN Verified 12/03/22 00:30 [From Stelazine] clozapine [From Clozaril] AdvReac Mild SEIZURES,NE Verified 12/03/22 00:30 UTROPENIA Review of Systems Review of Systems: Yes Unobtainable due to mental status [facility] Social History Social History Household Members: Significant Other Household Members Other:: Girlfriend and her father. Housing: Apartment Do you presently have visiting nurse or other home services: No Unable to assess alcohol history related to: Refusing to respond Alcohol intake: unknown Patient Tobacco Use Status: Never used Tobacco e-Cigarette/Vaping Use: Never Used Second Hand Smoke Exposure: No Substance Use Type: Caffiene Advance Directives: No service: Yes (5-6 weeks in the [place].) Sexual orientation: Straight/Heterosexual Physical Exam ED Vital Signs: Vital Signs - 24 hr 07/03/23 13:34 07/03/23 14:15 07/03/23 15:33 Temperature 97.6 F Pulse Rate 68 68 68 Respiratory Rate 18 23 H 18 Blood Pressure 126/70 116/63 109/58 L Pulse Oximetry 97 98 96 Oxygen Delivery Method Room Air Room Air Nasal Cannula Oxygen Flow Rate 2 07/03/23 16:24 Temperature 97.8 F Pulse Rate Respiratory Rate Blood Pressure Pulse Oximetry Oxygen Delivery Method Oxygen Flow Rate BMI result Body Mass Index 30.1 Const Other: Patient is a well-developed 57-year-old male who was postictal. He was pale and breathing heavily. Pupils were midsize and equal. He withdrew to painful stimuli. HENMT Other: Face is symmetrical. Gag reflex intact.. Eyes Other: Pupils were midsize and equal. He had an upward gaze but with painful stimuli he focused. No scleral icterus. Neck Other: No nuchal rigidity Resp Other: Coarse air entry bilaterally. Cardio Other: The patient had a regular rate and rhythm with no murmur. GI Other: Abdomen is soft and nontender.. There was liquid stool apparent on the shees. Skin Other: Skin was pale and dry. Neuro Other: The patient is not awake or alert but responds to painful stimuli. He localizes pain and withdraws. He grimaces appropriately. Extrem Other: No peripheral edema. Medications Administered Discontinued Medications Generic Name Dose Route Start Last Admin Trade Name Sanket PRN Reason Stop Dose Admin Lorazepam 2 mg 07/03/23 15:18 07/03/23 15:20 Lorazepam 2 Mg/Ml Vial IVPUSH 07/03/23 15:19 2 mg ONCE ONE Administration Medical Decision Making Medical Decision Making [facility] Narrative: The patient is a 57-year-old man with a history of schizoaffective disorder. He has a history of multiple psychiatric hospitalizations. He has been at the [facility] for 3 weeks. His medication regimen includes lithium and carbamazepine but apparently the patient refused his medications at the facility and takes only vitamins and probiotics. Today he developed liquid stool and seemed more disorganized or dazed. He was sent here to the emergency room for evaluation of the symptoms. After arriving in the emergency room but before he had been seen he had a seizure witnessed by one of the ER technicians.. At the time that I came in the room the patient seemed postictal. His blood sugar was 103. Rectal temperature was 97.6 degrees. He was placed on oxygen as his oxygen saturations were low. There was an episode of vomiting as well and he may have aspirated. I will be signing the patient out to the oncoming emergency physician at change of shift. Lab Data 07/03/23 16:23 07/03/23 16:02 Labs: Lab Results 07/03/23 Range/Units 16:02 [place] < 0.10 L (0.60-1.20) mmol/L Independent Interpretation I performed an independent interpretation of an: EKG Interpretation: EKG at 13:48 shows sinus bradycardia 58 beats per minute. Intervals normal. Discharge Plan Discharge Clinical Impression: Seizure Patient Disposition: Still a Patient Prescriptions: No Action haloperidol 5 mg Tablet 10 mg PO BID 30 Days Qty: 120 0RF carbamazepine 200 mg Tablet Extended Release 12 Hr 400 mg PO DAILY 30 Days Qty: 60 0RF carbamazepine 200 mg Tablet Extended Release 12 Hr 600 mg PO BEDTIME 30 Days Qty: 90 0RF benztropine 1 mg Tablet 1 mg PO BID 30 Days Qty: 60 0RF Invega Sustenna 234 mg/1.5 mL Syringe 234 mg IM Q30D Qty: 0 0RF lithium carbonate 450 mg Tablet Extended Release 900 mg PO BEDTIME 30 Days Qty: 60 0RF lithium carbonate 600 mg capsule 600 mg PO DAILY 30 Days Qty: 30 0RF Metamucil Fiber Singles 3.4 gram Powder In Packet 3.4 g PO DAILY 30 Days Qty: 30 3RF
--- NOTE | 2023-07-03 16:24 | PC.NURSE ---
While tech was drawing blood patient vomited x2 moderate amount of vomit. Provider at bedside to assess. Patient de sated to 85%, placed on 15l via oxy mask sating 90%. Currently at CT
[2023-07-03 16:26] LABS: MANUAL DIFF FLAG NO
[2023-07-03 16:27] LABS: Lithium < 0.10 mmol/L (0.60-1.20)
[2023-07-03 16:47] LABS: Basophils Percent Auto 0.2 % (0-2); Eosinophils Absolute Auto 0.1 X10*3/uL (0.0-0.4); Eosinophils Percent Auto 0.5 % (0-4); Hematocrit 33.7 % (42.0-52.0); Hemoglobin 12.3 g/dl (14.0-18.0); Imm Gran Abs Auto 0.06 X10*3/uL (0.00-0.03); Imm Gran Pct Auto 0.6 % (0.0-0.4); Lymphocytes Absolute Auto 1.2 X10*3/uL (1.2-4.9); Lymphocytes Percent Auto 10.8 % (20-40); Mean Corpuscular HGB Conc 36.5 g/dl (31.0-36.0); Mean Corpuscular Volume 87.8 fL (80.0-98.0); Mean Platelet Volume 10.8 fL (9.4-12.4); Monocytes Absolute Auto 0.7 X10*3/uL (0.1-1.2); Monocytes Percent Auto 6.3 % (2-11); Neutrophils Absolute Auto 8.7 x10*3/uL (2.0-8.3); Neutrophils Percent Auto 81.6 % (45-73); Platelet Count 244 X10*3/uL (160-400); Red Blood Count 3.84 X10*6/uL (4.60-5.80); Red Cell Distribution Width 11.3 % (11.0-16.0); White Blood Count 10.7 X10*3/uL (4.8-10.8)
[2023-07-03 16:55] LABS: Carbamazepine Tegretol < 2.0 mcg/mL (5.0-12.0)
[2023-07-03 16:57] LABS: Alanine Aminotransferase 18 U/L (0-40); Albumin Level 3.3 g/dL (3.5-5.0); Alkaline Phosphatase 47 U/L (39-117); Anion Gap 19 (12-20); Aspartate Amino Transferase 21 U/L (5-37); Bilirubin Direct 0.3 mg/dL (0.0-0.5); Bilirubin Total 0.8 mg/dL (0.0-1.0); Blood Urea Nitrogen 10 mg/dL (9-16); C Reactive Protein 1.03 mg/dL (< or = 0.50); Calcium 7.9 mg/dL (8.4-10.2); Carbon Dioxide 14 mmol/L (22-29); Chloride 90 mmol/L (96-108); Creatinine Clr Calc Pharmacy 112.9; Estimated Glomerular Filt Rate > 60; Ethanol < 10 mg/dL; Glucose Random 143 mg/dL (60-115); Total Protein 5.7 g/dL (6.5-8.0)
[2023-07-03] MEDS: 0.9 % Sodium Chloride 1,000 ML 999 ML IV (17:03)
[2023-07-03] MEDS: Magnesium Sulfate/H2O 2 GM/50 ML PIGGYBACK IV ×2 (17:06→21:50)
[2023-07-03] MEDS: Potassium Chloride/H20 10 MEQ/100 ML PIGGYBACK 100 MEQ IV ×2 (17:09→18:16)
--- NOTE | 2023-07-03 17:44 | PC.NURSE ---
Opens eyes to verbal and tactile stimulation. sating 97% on 2 liters via oxy masks. Labs drawn per order
[2023-07-03 17:54] LABS: Lactic Acid 3.9 mmol/L (0.5-2.0)
[2023-07-03 18:11] LABS: Osmolality, Serum 246 mosm/kg (281-305)
[2023-07-03 18:13] LABS: Sodium 118 mmol/L (135-145)
[2023-07-03 18:14] LABS: Potassium 2.9 mmol/L (3.3-5.1)
[2023-07-03 18:15] LABS: Magnesium 1.4 mg/dL (1.6-2.6)
[2023-07-03 18:34] LABS: Glucose, Whole Blood 103 mg/dL (60-115)
[2023-07-03 18:41] LABS: Appearance Urine Clear; Color Urine Yellow; Glucose Urine UA Negative (Negative); Leukocyte Esterase Urine Negative (Negative); Nitrite Urine Negative (Negative); PH 5.5 (5.0-9.0); Specific Gravity - Urine 1.015 (1.005-1.025); Urine Blood Negative (Negative); Urine Ketones 15 mg/dL (Negative); Urine Protein Trace mg/dL (Neg-Trace)
--- NOTE | 2023-07-03 18:42 | PC.NURSE ---
oxy mask removed satin g95% on RA
[2023-07-03 18:57] LABS: Amphetamine Screen Urine Not Detected (Not Detect); Barbiturates, Urine Not Detected (Not Detect); Benzodiazepines Screen Urine Not Detected (Not Detect); Cannabinoid Screen Urine Not Detected (Not Detect); Cocaine Screen Urine Not Detected (Not Detect); Fentanyl, urine Not Detected (Not Detect); Opiate Screen Urine Not Detected (Not Detect); Phencyclidine Screen Urine Not Detected (Not Detect)
[2023-07-03 19:05] LABS: Reflex Lactate? Lactic Acid Added
[2023-07-03 19:10] LABS: Osmolality Urine 397 mosm/kg (373-1093); Sodium Urine Random < 20.0 mmol/L
[2023-07-03 19:48] LABS: Lactic Acid 1.7 mmol/L (0.5-2.0)
[2023-07-03 20:22] LABS: Anion Gap 13 (12-20); Blood Urea Nitrogen 10 mg/dL (9-16); Calcium 8.4 mg/dL (8.4-10.2); Carbon Dioxide 20 mmol/L (22-29); Chloride 90 mmol/L (96-108); Creatinine Clr Calc Pharmacy 128.2; Estimated Glomerular Filt Rate > 60; Glucose Random 112 mg/dL (60-115); Potassium 3.2 mmol/L (3.3-5.1); Sodium 119 mmol/L (135-145)
--- NOTE | 2023-07-03 21:12 | P.HPCC_ITS ---
History of Present Illness Date of Service: 07/03/23 Attending physician on admission: Rosalva Lopez Chief Complaint: Hyponatremia, seizures HPI: ?57-year-old patient with underlying history of schizoaffective disorder, bipolar, hx hallucinations and multiple psychiatric hospitalizations last being about 4 months ago, had presented from [facility] with complaints of diarrhea and mental status changes. ?He had gone to the above- mentioned facility recently given that he had stopped taking his medications and at the time as usual he was consuming handfuls of vitamins therefore he was transferred to [facility] on June 17, the patient had been refusing all of his medications including carbamazepine, lithium among others.? Reportedly he had complained of constipation yesterday however he was later found to be standing on a pool of liquid stool, when trying to redirect him, he appeared to be confused, disorganized and difficult to following commands.? Is reported that he had an episode of seizure in the ER. He received Ativan x 3 doses. Workup in the emergency room revealed white count 10.7, H&H of 12.3 and 33.7, platelets 244.? Sodium was initially 1 18, potassium 2.9, chloride 90, carbon dioxide 14, random glucose 143, lactic acid 3.9.? Calcium 7.9, magnesium 2.4, CRP 1.03, total protein 5.7, albumin 3.3.? Urine tox screen is negative, carbamazepine level less than 2, lithium level less than 0.10.? Chest x-ray negative, No acute intracranial abnormality. Stable 1.5 cm lobulated focus of calcification within the right aspect of the fourth ventricle. No hydrocephalus. Paranasal sinus mucosal thickening with complete opacification of the right maxillary sinus. I spoke to the patient's brother with states that he has never had seizures before, corroborated other past medical history as above; also states that he knows his brother has not been eating, for the past few days however he also notes that when this happens he tends to drink a lot of water and that often times there will be periods when he stops taking anything by mouth completely other than multivitamins.? Patient otherwise unable to uncertain any questions as he is obtunded perhaps post ictal. ROS:? Unable to obtain Past Medical History:? As above Past Surgical History:? Unknown Family history: ?Unknown Social History:? Patient presented to this hospital from [facility]; , is known not to use any tobacco, alcohol or drugs. ?His contact is his brother Nando phone number [phone], he lives in [place]; states patient never signed a HCP.? CODE STATUS: FULL CODE Allergies: NKDA Home Medications: See Med Rec PHYSICAL EXAM: VS: ?124/63, 92, 17, 95% General:? Somnolent, not responsive to verbal or painful stimuli other than intermittent moaning. Skin:? Intact, no lesions, edema, erythema, clubbing or cyanosis.? No ulcers. HEENT:? Head is normocephalic, atraumatic, pupils equal round reactive to light accommodation bilaterally.? Extraocular movements appear intact.? Buccal mucosa is pasty dry, Neck is supple without lymphadenopathy. Cardiac:? Clear S1-S2, no murmurs rubs or gallops. Pulmonary:? Clear to auscultation, no wheezes, rales or rhonchi. Abdomen:? Protuberant, positive bowel sounds in all 4 quadrants.? Soft, nontender, no rebound or guarding.? Musculoskeletal:? Although the patient intermittently moves his own upper and lower extremities at the major joints, he does not follow commands upon request, passive range of motion of the upper and lower extremities does not show any crepitus, cogwheeling, there is some rigidity and tension upon attempting to do so.? There is no swelling of the legs, no asymmetry of the calves. Neurologic:? As above, unable to further assess Vascular:? 2+ pulses upper and lower extremities distally. SIGNIFICANT LABORATORY DATA:? As above REVIEW OF IMAGES: as above EKG REVIEW: As above ASSESSMENT : 1. Acute Hypoosmolar hypovolemic hyponatremia likely due to volume losses and volume depletion and very unlikely to be SIADH ? Psychogenic polydipsia 2. Clinical dehydration without renal failure 3. Diarrhea rule out bacterial versus viral origin, parasites 4. Acute hypokalemia 5. Acute hypophosphatemia 6. Acute new onset seizure ? hyponatremia vs brain lesion 7. Improved and reactive metabolic/ lactic acidosis likely due to hypoperfusion and seizures 8. 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 PLAN OF CARE: Patient will be admitted to the ICU, monitor vital signs, I and O's closely, seizure precautions and I will start him on Keppra while patient is more awake and is able to take p.o. so that we can resume his home medications. This is very unlikely to be SIADH for his urine concentration is less than 20, potassium is low and uric acid is normal all of which goes against SIADH features in which case urine sodium is above 40, often potassium is normal and uric acid is frequently low.? I will discontinue hypertonic saline and place the patient on normal saline at 30 cc an hour with a goal of repletion of 8-9 mEq per 24 hours.? Laboratories will be rechecked every 4 hours or so, will also check patient's phosphorus, TSH, for confirmation will order uric acid, replete any other electrolytes. Now that I know that this is a new onset seizure event and that there is a discrepancy on the size of the brain lesion previously noted to be 1cm and now 1.5cm, I will request a MRI in the morning for a true comparison. Will order an EEG and request a neuro evaluation. GI PROPHYLAXIS:? IV ppi DVT PROPHYLAXIS:? Pneumatic stockings only Critical care time used for critical evaluation of this patient, diagnosis, treatment and coordination of care, review her records and documentation TOTAL CRITICAL CARE TIME 120? MIN . discussion and coordination with consultants, completely separate from any procedures performed. 07/04/2023, clinical update 06:20am Patient has remained seizure-free, his sodium has normalized although a bit rapid for he got IL NS bolus and hypertonic saline in the ED, case was discussed in detail with Dr. Shay from Internal Medicine Service, she is aware that the patient will need further workup for new onset seizures which could be related most likely to the hyponatremia but we can not rule out the possibility of a growing lesion in his brain. Patient will be transferred to telemetry, will remain physically in the ICU until we have beds. Patient's care was discussed in detail with Dr. Lopez? He is aware of all the above as well as the plan of care for this patient. [facility] Social History Social History Household Members: None Household Members Other:: Girlfriend and her father. Housing: Apartment Housing Other:: [facility] Do you presently have visiting nurse or other home services: No Unable to assess alcohol history related to: Unable to respond Alcohol intake: unknown Comment: 1:1 sitter Patient Tobacco Use Status: Never used Tobacco e-Cigarette/Vaping Use: Never Used Second Hand Smoke Exposure: No Use of substances other than those prescribed or required for medical reasons: Unable to respond Substance Use Type: Caffiene Currently Displaying Signs/Symptoms of Drug Intoxication Withdrawal: No Advance Directives: No Recently lost weight without trying: Unsure Nutrition Risks: Acute nausea or vomiting x1 week Poor oral hygiene: Yes service: Yes (5-6 weeks in the [place].) Sexual orientation: Straight/Heterosexual Meds Allergies Allergy/AdvReac Type Severity Reaction Status Date / Time bupropion [From Wellbutrin] Allergy Mild CAUSES Verified 12/03/22 00:30 SWOLLEN HEAD tetracycline [Tetracycline] Allergy Mild UNKNOWN Verified 12/03/22 00:30 trifluoperazine Allergy Mild UNKNOWN Verified 12/03/22 00:30 [From Stelazine] clozapine [From Clozaril] AdvReac Mild SEIZURES,NE Verified 12/03/22 00:30 UTROPENIA Active Medications: Current Medications Sodium Chloride (Ns) 1,000 mls @ 50 mls/hr IVCONT .Q20H ANJUM Magnesium Sulfate (Magnesium Sulfate/H2o) 2 gm in 50 mls @ 25 mls/hr IV ONCE ONE Stop: 07/03/23 22:57 Physical Exam 2 Vital Signs: Vital Signs: Last Vital Signs Temp 97.8 F 07/03/23 20:00 Pulse 77 07/03/23 20:00 Resp 17 07/03/23 20:00 BP 130/72 07/03/23 20:00 Pulse Ox 95 07/03/23 20:00 O2 Del Method Room Air 07/03/23 20:00 O2 Flow Rate 2 07/03/23 18:00 BMI result Body Mass Index 30.1 Results Labs 07/04/23 05:31 07/04/23 21:11 Labs: Laboratory Results - last 24 hr 07/03/23 07/03/23 07/03/23 15:16 16:02 16:23 MCV 87.8 MCH 32.0 MCHC 36.5 H RDW 11.3 Plt Count 244 MPV 10.8 Immature Gran % (Auto) 0.6 H Neut % (Auto) 81.6 H Lymph % (Auto) 10.8 L [place] % (Auto) 6.3 Eos % (Auto) 0.5 Baso % (Auto) 0.2 Lymph # (Auto) 1.2 [place] # (Auto) 0.7 Eos # (Auto) 0.1 Baso # (Auto) 0.0 Abs Immat Gran (auto) 0.06 H Absolute Neuts (auto) 8.7 H Absolute Nucleated RBC 0.000 Nucleated RBC % (auto) 0.0 Anion Gap 19 Estim Creat Clear Calc 112.9 Estimated GFR > 60 POC Glucose 103 Random Glucose 143 H Osmolality Lactic Acid Calcium 7.9 L D Magnesium 1.4 L* Total Bilirubin 0.8 Direct Bilirubin 0.3 AST 21 ALT 18 Alkaline Phosphatase 47 C-Reactive Protein 1.03 H Total Protein 5.7 L Albumin 3.3 L Urine Color Urine Appearance Urine pH Ur Specific [place] Urine Protein Urine Glucose (UA) Urine Ketones Urine Blood Urine Nitrite Ur Leukocyte Esterase Urine Osmolality Ur Random Sodium Urine Opiates Screen Urine Fentanyl Screen Ur Barbiturates Screen Carbamazepine < 2.0 L* Ur Phencyclidine Scrn Ur Amphetamines Screen U Benzodiazepines Scrn [place] < 0.10 L Urine Cocaine Screen U Marijuana (THC) Screen Ethyl Alcohol < 10 07/03/23 07/03/23 07/03/23 17:01 17:44 18:30 MCV MCH MCHC RDW Plt Count MPV Immature Gran % (Auto) Neut % (Auto) Lymph % (Auto) [place] % (Auto) Eos % (Auto) Baso % (Auto) Lymph # (Auto) [place] # (Auto) Eos # (Auto) Baso # (Auto) Abs Immat Gran (auto) Absolute Neuts (auto) Absolute Nucleated RBC Nucleated RBC % (auto) Anion Gap Estim Creat Clear Calc Estimated GFR POC Glucose Random Glucose Osmolality 246 L Lactic Acid 3.9 H* Calcium Magnesium Total Bilirubin Direct Bilirubin AST ALT Alkaline Phosphatase C-Reactive Protein Total Protein Albumin Urine Color Yellow Urine Appearance Clear Urine pH 5.5 Ur Specific [place] 1.015 Urine Protein Trace Urine Glucose (UA) Negative Urine Ketones 15 Urine Blood Negative Urine Nitrite Negative Ur Leukocyte Esterase Negative Urine Osmolality 397 Ur Random Sodium < 20.0 Urine Opiates Screen Not Detected Urine Fentanyl Screen Not Detected Ur Barbiturates Screen Not Detected Carbamazepine Ur Phencyclidine Scrn Not Detected Ur Amphetamines Screen Not Detected U Benzodiazepines Scrn Not Detected [place] Urine Cocaine Screen Not Detected U Marijuana (THC) Screen Not Detected Ethyl Alcohol 07/03/23 19:31 MCV MCH MCHC RDW Plt Count MPV Immature Gran % (Auto) Neut % (Auto) Lymph % (Auto) [place] % (Auto) Eos % (Auto) Baso % (Auto) Lymph # (Auto) [place] # (Auto) Eos # (Auto) Baso # (Auto) Abs Immat Gran (auto) Absolute Neuts (auto) Absolute Nucleated RBC Nucleated RBC % (auto) Anion Gap 13 Estim Creat Clear Calc 128.2 Estimated GFR > 60 POC Glucose Random Glucose 112 Osmolality Lactic Acid 1.7 Calcium 8.4 D Magnesium Total Bilirubin Direct Bilirubin AST ALT Alkaline Phosphatase C-Reactive Protein Total Protein Albumin Urine Color Urine Appearance Urine pH Ur Specific [place] Urine Protein Urine Glucose (UA) Urine Ketones Urine Blood Urine Nitrite Ur Leukocyte Esterase Urine Osmolality Ur Random Sodium Urine Opiates Screen Urine Fentanyl Screen Ur Barbiturates Screen Carbamazepine Ur Phencyclidine Scrn Ur Amphetamines Screen U Benzodiazepines Scrn [place] Urine Cocaine Screen U Marijuana (THC) Screen Ethyl Alcohol Imaging Radiologist's Impressions: Impressions Head CT 07/03/23 16:42 IMPRESSION: No acute intracranial abnormality. Stable 1.5 cm lobulated focus of calcification within the right aspect of the fourth ventricle. No hydrocephalus. Paranasal sinus mucosal thickening with complete opacification of the right maxillary sinus. Chest X-Ray 07/03/23 16:46 IMPRESSION: No acute cardiopulmonary abnormality.
[2023-07-03 21:35] LABS: Magnesium 1.7 mg/dL (1.6-2.6); Phosphorus 2.4 mg/dL (2.7-4.5); Uric Acid 4.1 mg/dL (3.4-7.0)
[2023-07-03] MEDS: 0.9 % Sodium Chloride 1,000 ML 50 ML IVCONT (21:49)
[2023-07-03 21:58] LABS: Thyroid Stimulating Hormone 1.04 uIU/mL (0.32-4.0)
[2023-07-03 22:37] LABS: ~Lactic Acid-LAB USE ONLY 1.1 mmol/L (0.5-2.0)
[2023-07-03] MEDS: levETIRAcetam in NaCl (iso-os) 1,000 MG/100 ML PIGGYBACK 400 MG IV (23:33)
[2023-07-04] VITALS (25 sets, daily range): BP systolic 101–136; BP diastolic 48–87; PULSE 69–105; RESP 11–26; TEMP 36.5–39.5; O2SAT 91–98
[2023-07-04 00:43] LABS: Anion Gap 14 (12-20); Blood Urea Nitrogen 7 mg/dL (9-16); Calcium 8.5 mg/dL (8.4-10.2); Carbon Dioxide 18 mmol/L (22-29); Chloride 99 mmol/L (96-108); Creatinine Clr Calc Pharmacy 119.4; Estimated Glomerular Filt Rate > 60; Glucose Random 107 mg/dL (60-115); Magnesium 2.3 mg/dL (1.6-2.6); Sodium 127 mmol/L (135-145)
[2023-07-04] MEDS: Sodium Bicarbonate 8.4% 50 MEQ/50 ML SYRINGE 100 MEQ IVPUSH (01:00)
[2023-07-04] MEDS: Pantoprazole Sodium 40 MG/10 ML VIAL IVPUSH (04:18)
[2023-07-04] MEDS: Ketorolac Tromethamine 15 MG/ML VIAL IVPUSH (04:18)
[2023-07-04 05:40] LABS: MANUAL DIFF FLAG NO
[2023-07-04 05:42] LABS: Venous Blood Gas Refer to POC result
[2023-07-04 05:44] LABS: VBG Base Excess 2.4 mmol/L; VBG HCO3 23 mmol/L (22-26); VBG pCO2 27 mmHg; VBG pH 7.54 (7.32-7.43); VBG pO2 60 mmHg
[2023-07-04 05:50] LABS: Ammonia 28 umol/L (13-55)
[2023-07-04 05:59] LABS: Alanine Aminotransferase 17 U/L (0-40); Albumin Level 3.3 g/dL (3.5-5.0); Alkaline Phosphatase 50 U/L (39-117); Anion Gap 14 (12-20); Aspartate Amino Transferase 17 U/L (5-37); Bilirubin Total 0.6 mg/dL (0.0-1.0); Blood Urea Nitrogen 7 mg/dL (9-16); Calcium 8.5 mg/dL (8.4-10.2); Carbon Dioxide 21 mmol/L (22-29); Chloride 102 mmol/L (96-108); Creatinine Clr Calc Pharmacy 116.4; Estimated Glomerular Filt Rate > 60; Glucose Random 106 mg/dL (60-115); Potassium 3.5 mmol/L (3.3-5.1); Sodium 133 mmol/L (135-145); Total Protein 5.8 g/dL (6.5-8.0)
[2023-07-04 06:54] LABS: Basophils Percent Auto 0.1 % (0-2); Hematocrit 36.2 % (42.0-52.0); Hemoglobin 13.5 g/dl (14.0-18.0); Imm Gran Abs Auto 0.08 X10*3/uL (0.00-0.03); Imm Gran Pct Auto 0.6 % (0.0-0.4); Lymphocytes Absolute Auto 1.1 X10*3/uL (1.2-4.9); Lymphocytes Percent Auto 7.7 % (20-40); Mean Corpuscular HGB Conc 37.3 g/dl (31.0-36.0); Mean Corpuscular Hemoglobin 32.2 pg (27.0-33.0); Mean Corpuscular Volume 86.4 fL (80.0-98.0); Mean Platelet Volume 11.2 fL (9.4-12.4); Monocytes Absolute Auto 0.9 X10*3/uL (0.1-1.2); Monocytes Percent Auto 6.4 % (2-11); Neutrophils Percent Auto 85.2 % (45-73); Platelet Count 267 X10*3/uL (160-400); Red Blood Count 4.19 X10*6/uL (4.60-5.80); Red Cell Distribution Width 11.3 % (11.0-16.0)
--- NOTE | 2023-07-04 07:14 | PHA.MEDREC ---
Pharmacy Consult ? Medication Reconciliation Pharmacy has completed the medication reconciliation. Reviewed med rec done by nursing (Collette).
--- NOTE | 2023-07-04 07:39 | P.EN_ITS ---
Event Note Date of Service: 07/04/23 Event Note: Mr. Bradford is a 57 Y M with psychiatric comorbidities, resides at facility, who presents with polydipsia and diarrhea, in the background of medication non- compliance, found to have seizure in ED, and later found to have hyponatremia of 118; in ED, patient received 1 L IVF and started on hypertonic saline, which was discontinued upon arrival to ICU; in ICU, patient was fluid restricted and placed on NS at 30 mL/hr; upon repeat BMP, patient sodium 133, for which NS discontinued and DDAVP ordered; nephrology consult placed for further management Time Spent With Patient Time: Total time managing care of this patient today ____ minutes.
--- NOTE | 2023-07-04 07:54 | P.PNCC_ITS ---
Subjective Subjective Date of Service: 07/04/23 Interval History: admitted overnight w/ hyponatremia d/t hyponatremia 118; given 1 L IVF and hypertonic saline in ED; now sodium 133 Critical Care Time (minutes): 60 Physical Exam 2 Vital Signs: Vital Signs: Last Vital Signs Temp 103.1 F H 07/04/23 04:00 Pulse 89 07/04/23 07:00 Resp 16 07/04/23 07:00 BP 125/62 07/04/23 07:00 Pulse Ox 95 07/04/23 07:00 O2 Del Method Room Air 07/04/23 07:00 O2 Flow Rate 2 07/03/23 18:00 BMI result Body Mass Index 28.1 Const: Other: encephalopathic; unable to participate in history, physical General: no acute distress and Physically active HEENT: Head: Yes normal to inspection, Yes normocephalic and Yes atraumatic Eyes: General: appearance normal, both eyes and all related structures Neck: Other: no appreciable nuchal rigidity; no Neck: Yes normal visual inspection, Yes no meningeal signs and Yes supple Chest: Chest palpation & inspection: normal inspection of the chest Resp: Other: no appreciable rales, rhochi, wheezing Effort & Inspection: normal respiratory effort Cardio: Rate: regular rate Rhythm: regular rhythm GI: Inspection: Yes normal to inspection, No Abdominal wall edema and No distended Palpation (GI): Soft to palpation, not firm, nontender, no guarding and not rigid : Male General Exam: Yes normal external exam Skin: General skin exam: no rashes or lesions noted Neuro: General: tone normal, moves all extremities, no meningeal signs and no focal motor deficits Extrem: General: Yes normal to inspection, Yes capillary refill normal and Yes no clubbing, cyanosis or edema Psych: Other: unable to assess Objective Data Labs 07/04/23 05:31 07/04/23 05:31 Labs: Laboratory Results - last 24 hr 07/03/23 07/03/23 07/03/23 15:16 16:02 16:23 WBC 10.7 RBC 3.84 L Hgb 12.3 L Hct 33.7 L MCV 87.8 MCH 32.0 MCHC 36.5 H RDW 11.3 Plt Count 244 MPV 10.8 Immature Gran % (Auto) 0.6 H Neut % (Auto) 81.6 H Lymph % (Auto) 10.8 L [place] % (Auto) 6.3 Eos % (Auto) 0.5 Baso % (Auto) 0.2 Lymph # (Auto) 1.2 [place] # (Auto) 0.7 Eos # (Auto) 0.1 Baso # (Auto) 0.0 Abs Immat Gran (auto) 0.06 H Absolute Neuts (auto) 8.7 H Absolute Nucleated RBC 0.000 Nucleated RBC % (auto) 0.0 Hold Purple Top VBG pH VBG pCO2 VBG pO2 VBG HCO3 VBG O2 Saturation VBG Base Excess Sodium 118 L* Potassium 2.9 L* Chloride 90 L Carbon Dioxide 14 L Anion Gap 19 BUN 10 Creatinine 0.84 Estim Creat Clear Calc 112.9 Estimated GFR > 60 POC Glucose 103 Random Glucose 143 H Osmolality Lactic Acid Lactic Acid F/U @ 2Hr Uric Acid Cancelled Calcium 7.9 L D Phosphorus Cancelled Magnesium 1.4 L* Total Bilirubin 0.8 Direct Bilirubin 0.3 AST 21 ALT 18 Alkaline Phosphatase 47 Ammonia C-Reactive Protein 1.03 H Total Protein 5.7 L Albumin 3.3 L TSH Cancelled Urine Color Urine Appearance Urine pH Ur Specific [place] Urine Protein Urine Glucose (UA) Urine Ketones Urine Blood Urine Nitrite Ur Leukocyte Esterase Urine Osmolality Ur Random Sodium Urine Opiates Screen Urine Fentanyl Screen Ur Barbiturates Screen Carbamazepine < 2.0 L* Ur Phencyclidine Scrn Ur Amphetamines Screen U Benzodiazepines Scrn Murphy < 0.10 L Urine Cocaine Screen U Marijuana (THC) Screen Ethyl Alcohol < 10 07/03/23 07/03/23 07/03/23 17:01 17:44 18:30 WBC RBC Hgb Hct MCV MCH MCHC RDW Plt Count MPV Immature Gran % (Auto) Neut % (Auto) Lymph % (Auto) [place] % (Auto) Eos % (Auto) Baso % (Auto) Lymph # (Auto) [place] # (Auto) Eos # (Auto) Baso # (Auto) Abs Immat Gran (auto) Absolute Neuts (auto) Absolute Nucleated RBC Nucleated RBC % (auto) Hold Purple Top VBG pH VBG pCO2 VBG pO2 VBG HCO3 VBG O2 Saturation VBG Base Excess Sodium Potassium Chloride Carbon Dioxide Anion Gap BUN Creatinine Estim Creat Clear Calc Estimated GFR POC Glucose Random Glucose Osmolality 246 L Lactic Acid 3.9 H* Lactic Acid F/U @ 2Hr Uric Acid Calcium Phosphorus Magnesium Total Bilirubin Direct Bilirubin AST ALT Alkaline Phosphatase Ammonia C-Reactive Protein Total Protein Albumin TSH Urine Color Yellow Urine Appearance Clear Urine pH 5.5 Ur Specific [place] 1.015 Urine Protein Trace Urine Glucose (UA) Negative Urine Ketones 15 Urine Blood Negative Urine Nitrite Negative Ur Leukocyte Esterase Negative Urine Osmolality 397 Ur Random Sodium < 20.0 Urine Opiates Screen Not Detected Urine Fentanyl Screen Not Detected Ur Barbiturates Screen Not Detected Carbamazepine Ur Phencyclidine Scrn Not Detected Ur Amphetamines Screen Not Detected U Benzodiazepines Scrn Not Detected Murphy Urine Cocaine Screen Not Detected U Marijuana (THC) Screen Not Detected Ethyl Alcohol 07/03/23 07/03/23 07/04/23 19:31 22:16 00:13 WBC RBC Hgb Hct MCV MCH MCHC RDW Plt Count MPV Immature Gran % (Auto) Neut % (Auto) Lymph % (Auto) [place] % (Auto) Eos % (Auto) Baso % (Auto) Lymph # (Auto) [place] # (Auto) Eos # (Auto) Baso # (Auto) Abs Immat Gran (auto) Absolute Neuts (auto) Absolute Nucleated RBC Nucleated RBC % (auto) Hold Purple Top SEE NOTE VBG pH VBG pCO2 VBG pO2 VBG HCO3 VBG O2 Saturation VBG Base Excess Sodium 119 L* 127 L Potassium 3.2 L 4.0 D Chloride 90 L 99 Carbon Dioxide 20 L 18 L Anion Gap 13 14 BUN 10 7 L Creatinine 0.74 0.77 Estim Creat Clear Calc 128.2 119.4 Estimated GFR > 60 > 60 POC Glucose Random Glucose 112 107 Osmolality Lactic Acid 1.7 Lactic Acid F/U @ 2Hr 1.1 Uric Acid 4.1 Calcium 8.4 D 8.5 Phosphorus 2.4 L Magnesium 1.7 2.3 Total Bilirubin Direct Bilirubin AST ALT Alkaline Phosphatase Ammonia C-Reactive Protein Total Protein Albumin TSH 1.04 Urine Color Urine Appearance Urine pH Ur Specific [place] Urine Protein Urine Glucose (UA) Urine Ketones Urine Blood Urine Nitrite Ur Leukocyte Esterase Urine Osmolality Ur Random Sodium Urine Opiates Screen Urine Fentanyl Screen Ur Barbiturates Screen Carbamazepine Ur Phencyclidine Scrn Ur Amphetamines Screen U Benzodiazepines Scrn Murphy Urine Cocaine Screen U Marijuana (THC) Screen Ethyl Alcohol 07/04/23 07/04/23 05:31 05:37 WBC 14.0 H RBC 4.19 L Hgb 13.5 L Hct 36.2 L MCV 86.4 MCH 32.2 MCHC 37.3 H RDW 11.3 Plt Count 267 MPV 11.2 Immature Gran % (Auto) 0.6 H Neut % (Auto) 85.2 H Lymph % (Auto) 7.7 L [place] % (Auto) 6.4 Eos % (Auto) 0.0 Baso % (Auto) 0.1 Lymph # (Auto) 1.1 L [place] # (Auto) 0.9 Eos # (Auto) 0.0 Baso # (Auto) 0.0 Abs Immat Gran (auto) 0.08 H Absolute Neuts (auto) 12.0 H Absolute Nucleated RBC 0.000 Nucleated RBC % (auto) 0.0 Hold Purple Top VBG pH 7.54 H VBG pCO2 27 VBG pO2 60 VBG HCO3 23 VBG O2 Saturation 92.0 VBG Base Excess 2.4 Sodium 133 L Potassium 3.5 Chloride 102 Carbon Dioxide 21 L Anion Gap 14 BUN 7 L Creatinine 0.79 Estim Creat Clear Calc 116.4 Estimated GFR > 60 POC Glucose Random Glucose 106 Osmolality Lactic Acid Lactic Acid F/U @ 2Hr Uric Acid Calcium 8.5 Phosphorus Magnesium Total Bilirubin 0.6 Direct Bilirubin AST 17 ALT 17 Alkaline Phosphatase 50 Ammonia 28 C-Reactive Protein Total Protein 5.8 L Albumin 3.3 L TSH Urine Color Urine Appearance Urine pH Ur Specific [place] Urine Protein Urine Glucose (UA) Urine Ketones Urine Blood Urine Nitrite Ur Leukocyte Esterase Urine Osmolality Ur Random Sodium Urine Opiates Screen Urine Fentanyl Screen Ur Barbiturates Screen Carbamazepine Ur Phencyclidine Scrn Ur Amphetamines Screen U Benzodiazepines Scrn Murphy Urine Cocaine Screen U Marijuana (THC) Screen Ethyl Alcohol Progress Note: A&P Assessment and plan (1) Seizure: Status: Acute (2) Schizoaffective disorder, bipolar type: Status: Acute (3) Acute hyponatremia: Status: Acute Plan Patient is a 57 Y M with psychiatric comorbidities, presenting w/ polydipsia, diarrhea; in ED had witnessed seizure, found to have hyponatremia; in ED, given 1 L IVF and hypertonic saline; admitted to ICU N: seizure, likely d/t hyponatremia; of note, patient also febrile, which may be d/t diarrhea, aspiration, but to give empiric acyclovir, ceftriaxone CV: no acute issues R: no acute issues GI: NPO while encephalopathic : hyponatremia, likely d/t polydipsia, diarrhea; c/b over-correction, now on D5W, DDAVP; to monitor sodium, urine output very closely; appreciate nephrology recommendations H: leukocytosis, non-specific; to continue to monitor ID: fever, c/f diarrheal disease, likely aspiration; given persistent encephalopathy, to give empiric acyclovir, ceftriaxone for possible encephalitis/meningitis; of note, CT H grossly reassuring E: no acute issues P: baseline schizoaffective disorder; psychiatry consult when encephalopathy improves S: of note, Mr. Bradford's brother, Nando, contacted this AM; c/f sequelae of overcorrection was conveyed, with Nando's understanding; of note, Nando expressed concerns regarding Mr. Bradford's long-term psychiatric care; we discussed that we will be sure to involve psychiatry after Mr. rBadford's medical issues are treated Quality Stroke Does the patient have a stroke diagnosis?: No VTE Prior VTE?: No VTE Risk Level:: Medical - moderate - high VTE Device Contraindication: N/A - Device Ordered VTE Drug Contraindication: N/A - Med Ordered
[2023-07-04] MEDS: Dextrose 5 % 1,000 ML 100 ML IVCONT (07:58)
[2023-07-04] MEDS: cefTRIAXone sodium 2 GM in 0.9 % Sodium Chloride 50 ML IV ×2 (09:15→20:24)
[2023-07-04] MEDS: SODIUM CHLORIDE 0.9% IV ×2 (09:35→17:02)
[2023-07-04] MEDS: ACYCLOVIR SODIUM IV ×2 (09:35→17:02)
[2023-07-04 09:42] LABS: Anion Gap 13 (12-20); Blood Urea Nitrogen 7 mg/dL (9-16); Calcium 8.7 mg/dL (8.4-10.2); Carbon Dioxide 23 mmol/L (22-29); Chloride 102 mmol/L (96-108); Creatinine Clr Calc Pharmacy 96.7; Estimated Glomerular Filt Rate > 60; Glucose Random 117 mg/dL (60-115); Potassium 3.4 mmol/L (3.3-5.1); Sodium 135 mmol/L (135-145)
[2023-07-04 09:58] LABS: TSH reflex Free T4 0.79 uIU/mL (0.32-4.0)
[2023-07-04 10:14] LABS: Folate 11.7 ng/mL (> or = 4.0)
[2023-07-04 10:30] LABS: Vitamin B12 1145 pg/mL (200-900)
[2023-07-04] MEDS: levETIRAcetam in NaCl (iso-os) 1,000 MG/100 ML PIGGYBACK 400 MG IV ×2 (11:15→22:08)
--- NOTE | 2023-07-04 11:28 | PHA.PROG ---
Admission Date/Time: July 03, 2023 20:47 Indication: SHANK MAKER Weight in k.4 kg Serum Creatinine - Last 168 Hours 07/03/23 07/03/23 07/04/23 16:02 19:31 00:13 Creatinine 0.84 0.74 0.77 07/04/23 07/04/23 05:31 08:57 Creatinine 0.79 0.95 Estimated CrCl and GFR - Last 168 Hours 07/03/23 07/03/23 07/04/23 16:02 19:31 00:13 Estim Creat Clear Calc 112.9 128.2 119.4 Estimated GFR > 60 > 60 > 60 07/04/23 07/04/23 05:31 08:57 Estim Creat Clear Calc 116.4 96.7 Estimated GFR > 60 > 60 Vancomycin Loading Dose: 1999 Current Vancomycin Dosing Regimen: 1250 q 12h Vancomycin Monitoring using AUC goal of 400 - 600 range with trough as surrogate marker: 520 Date and Time for next Vancomycin Level to be drawn: 07/05@ 1999 Pharmacist Comments on Vancomycin Plan: Vancomycin dosing will take advantage of [employer] as a clinical decision support tool that uses Bayesian modeling to calculate individual patient's pharmacokinetic parameters and forecast the patient's drug concentration time course with the target goal AUC 24 range of 400 - 600 mg/L/hr.
[2023-07-04 11:37] LABS: Anion Gap 11 (12-20); Blood Urea Nitrogen 7 mg/dL (9-16); Calcium 8.4 mg/dL (8.4-10.2); Carbon Dioxide 23 mmol/L (22-29); Chloride 103 mmol/L (96-108); Creatinine Clr Calc Pharmacy 110.7; Estimated Glomerular Filt Rate > 60; Glucose Random 127 mg/dL (60-115); Potassium 3.4 mmol/L (3.3-5.1); Sodium 134 mmol/L (135-145)
[2023-07-04] MEDS: Dextrose 5 % 1,000 ML 200 ML IVCONT (13:13)
[2023-07-04 13:25] LABS: Anion Gap 11 (12-20); Blood Urea Nitrogen 7 mg/dL (9-16); Calcium 8.5 mg/dL (8.4-10.2); Carbon Dioxide 23 mmol/L (22-29); Chloride 103 mmol/L (96-108); Creatinine Clr Calc Pharmacy 114.9; Estimated Glomerular Filt Rate > 60; Glucose Random 126 mg/dL (60-115); Potassium 3.4 mmol/L (3.3-5.1); Sodium 134 mmol/L (135-145)
[2023-07-04 15:20] LABS: Anion Gap 11 (12-20); Blood Urea Nitrogen 6 mg/dL (9-16); Calcium 8.3 mg/dL (8.4-10.2); Carbon Dioxide 23 mmol/L (22-29); Chloride 102 mmol/L (96-108); Creatinine Clr Calc Pharmacy 106.9; Estimated Glomerular Filt Rate > 60; Ethanol < 10 mg/dL; Glucose Random 128 mg/dL (60-115); Potassium 3.3 mmol/L (3.3-5.1); Sodium 133 mmol/L (135-145)
[2023-07-04 15:36] LABS: Acetaminophen LAB < 3 mcg/mL (<30); Salicylate < 5.0 mg/dL (15-30)
[2023-07-04] MEDS: Dextrose 5 % 1,000 ML 250 ML IVCONT ×2 (17:30→22:06)
[2023-07-04 17:42] LABS: Anion Gap 9 (12-20); Blood Urea Nitrogen 6 mg/dL (9-16); Calcium 8.1 mg/dL (8.4-10.2); Carbon Dioxide 22 mmol/L (22-29); Chloride 102 mmol/L (96-108); Creatinine Clr Calc Pharmacy 110.7; Estimated Glomerular Filt Rate > 60; Glucose Random 124 mg/dL (60-115); Potassium 3.4 mmol/L (3.3-5.1); Sodium 130 mmol/L (135-145)
--- NOTE | 2023-07-04 17:54 | PC.NURSE ---
At approximately 1700; pt perked up; making eye contact; said hello . Upon asking questions, he is able to identify self, knows his address and able to name his brother; asking for food (speech clear with these responses). Other questions he still continues to be confused and speech unclear and stuttering. MD aware of this change. Pt continues to be confused but redirectable; sitter continues to be at bedside; restraints off. Holding on PO intake at this time due to drowsiness. Na+ being closely monitored; see Lab. Pt otherwise in no acute distress. Pt bathed and repositioned every 2 hrs and as needed. Call carrasco within reach; bed alarmed. Continuing with plan of care.
[2023-07-04 19:42] LABS: Anion Gap 12 (12-20); Blood Urea Nitrogen 6 mg/dL (9-16); Calcium 8.2 mg/dL (8.4-10.2); Carbon Dioxide 21 mmol/L (22-29); Chloride 102 mmol/L (96-108); Creatinine Clr Calc Pharmacy 117.8; Estimated Glomerular Filt Rate > 60; Glucose Random 121 mg/dL (60-115); Potassium 3.5 mmol/L (3.3-5.1); Sodium 131 mmol/L (135-145)
[2023-07-04 21:31] LABS: Anion Gap 9 (12-20); Blood Urea Nitrogen 6 mg/dL (9-16); Carbon Dioxide 24 mmol/L (22-29); Chloride 101 mmol/L (96-108); Creatinine Clr Calc Pharmacy 117.8; Estimated Glomerular Filt Rate > 60; Glucose Random 117 mg/dL (60-115); Potassium 3.1 mmol/L (3.3-5.1); Sodium 131 mmol/L (135-145)
--- NOTE | 2023-07-04 23:21 | PM.CCN ---
Critical Care Event Note Summary Date of Service: 07/04/23 Code activated: No Narrative: This case had a high probability of a clinically significant, sudden, or life threatening deterioration of this patient's condition which required my full and direct attention, intervention and personal management. Critical Care Time (minutes): 35 Comment: Clinical update 21:00 07/04/2023 Patient who was admitted last night due to hyponatremia and seizures, who had receive a L of IV fluids and hypertonic saline in the ER, subsequently been admitted to the ICU and or on fluid restriction however with a rapid correction of his sodium going from 118-127 and subsequently above 130 in less than 24 hours, was eventually placed on D5 at 250 cc an hour and received DDAVP throughout the day. On initial admission, the patient was having massive urine output with over 300 cc of fully diluted urine which I believe could have contributed to his rapid correction of sodium. Currently the patient has dropped his urine output significantly between 50-70 cc an hour with dark very concentrated brown urine, has developed hypoxia from his baseline as he was satting 100% on room air and now satting as low as 88% intermittently with small periods of apnea but mostly at 90%, appears to have expiratory wheezing and minor crackles at the bases, small amount of accessory muscle usage. Given the ongoing fluid administration very little urine output, my concern is that the patient is becoming fluid overloaded and or also affected the for possible aspiration. The case was discussed with Dr. Barnard given the above-mentioned concerns and she advised to stop the IV fluids and desmopressin. Subsequently head of the bed of the patient was raised to 45 degree angle, he had a bedside swallow eval by nursing personnel with thickened pudding and the patient passed, a packet of potassium chloride was mixed with pudding and given to the patient for potassium replacement. 23:30, laboratories were rechecked, his sodium remains 131. Will continue to monitor closely. Will ask nursing to place supplemental O2. Given his periods of apnea and low O2 sat in comparison to his prior baseline. Also will recheck labs in about 2 hours and consider reestablishing IVF but not DDAVP as he is anuric. Na levels at on 07/05/2023 at 1 am 132, IVF D 5 at 100cc/hr resumed, 3 am 131, 5 am 131, IVF are going. Total UA output in 12 hr shift 500cc (45 cc/hr) with last 250 cc out put this am about 6 hrs after DDAVP was stopped. Patient remains on 2L NC satting 96%, covid, influenza and RSV testing. Will sign out to Dr Lopez who in turn will sign out to Dr Romano Total critical care time 35 minutes
[2023-07-04] MEDS: Potassium Chloride Packet 20 MEQ PACKET 40 MEQ PO (23:33)
[2023-07-04] MEDS: Albuterol Sulfate (0.083%) 2.5 MG/3 ML VIAL.NEB INHALE (23:38)
[2023-07-05] VITALS (24 sets, daily range): BP systolic 94–122; BP diastolic 49–70; PULSE 56–85; RESP 11–25; TEMP 36.8–37.1; O2SAT 93–100; BMI 27.4
[2023-07-05 00:02] LABS: Anion Gap 10 (12-20); Blood Urea Nitrogen 5 mg/dL (9-16); Calcium 8.2 mg/dL (8.4-10.2); Carbon Dioxide 24 mmol/L (22-29); Chloride 100 mmol/L (96-108); Creatinine Clr Calc Pharmacy 116.4; Estimated Glomerular Filt Rate > 60; Glucose Random 112 mg/dL (60-115); Potassium 3.1 mmol/L (3.3-5.1); Sodium 131 mmol/L (135-145)
[2023-07-05] MEDS: SODIUM CHLORIDE 0.9% IV ×2 (00:39→08:28)
[2023-07-05] MEDS: ACYCLOVIR SODIUM IV ×2 (00:39→08:28)
[2023-07-05 02:11] LABS: Anion Gap 8 (12-20); Blood Urea Nitrogen 5 mg/dL (9-16); Carbon Dioxide 25 mmol/L (22-29); Chloride 102 mmol/L (96-108); Creatinine Clr Calc Pharmacy 127.7; Estimated Glomerular Filt Rate > 60; Glucose Random 113 mg/dL (60-115); Potassium 3.3 mmol/L (3.3-5.1); Sodium 132 mmol/L (135-145)
[2023-07-05] MEDS: Dextrose 5 % 500 ML 100 ML IVCONT (02:28)
[2023-07-05 03:39] LABS: Anion Gap 7 (12-20); Blood Urea Nitrogen 5 mg/dL (9-16); Calcium 8.1 mg/dL (8.4-10.2); Carbon Dioxide 25 mmol/L (22-29); Chloride 102 mmol/L (96-108); Creatinine Clr Calc Pharmacy 127.7; Estimated Glomerular Filt Rate > 60; Glucose Random 116 mg/dL (60-115); Potassium 3.2 mmol/L (3.3-5.1); Sodium 131 mmol/L (135-145)
[2023-07-05 05:06] LABS: MANUAL DIFF FLAG NO
[2023-07-05 05:14] LABS: Basophils Percent Auto 0.3 % (0-2); Eosinophils Absolute Auto 0.2 X10*3/uL (0.0-0.4); Eosinophils Percent Auto 1.7 % (0-4); Hematocrit 31.8 % (42.0-52.0); Hemoglobin 11.4 g/dl (14.0-18.0); Imm Gran Abs Auto 0.03 X10*3/uL (0.00-0.03); Imm Gran Pct Auto 0.3 % (0.0-0.4); Lymphocytes Absolute Auto 1.3 X10*3/uL (1.2-4.9); Lymphocytes Percent Auto 12.6 % (20-40); Mean Corpuscular HGB Conc 35.8 g/dl (31.0-36.0); Mean Corpuscular Hemoglobin 31.9 pg (27.0-33.0); Mean Corpuscular Volume 89.1 fL (80.0-98.0); Mean Platelet Volume 10.6 fL (9.4-12.4); Monocytes Absolute Auto 0.8 X10*3/uL (0.1-1.2); Neutrophils Absolute Auto 7.9 x10*3/uL (2.0-8.3); Neutrophils Percent Auto 77.1 % (45-73); Platelet Count 213 X10*3/uL (160-400); Red Blood Count 3.57 X10*6/uL (4.60-5.80); Red Cell Distribution Width 11.4 % (11.0-16.0); White Blood Count 10.3 X10*3/uL (4.8-10.8)
[2023-07-05] MEDS: Pantoprazole Sodium 40 MG/10 ML VIAL IVPUSH (05:14)
[2023-07-05 05:27] LABS: Anion Gap 10 (12-20); Blood Urea Nitrogen 5 mg/dL (9-16); Calcium 8.1 mg/dL (8.4-10.2); Carbon Dioxide 23 mmol/L (22-29); Chloride 101 mmol/L (96-108); Estimated Glomerular Filt Rate > 60; Glucose Random 117 mg/dL (60-115); Potassium 3.3 mmol/L (3.3-5.1); Sodium 131 mmol/L (135-145)
[2023-07-05 06:47] LABS: Influenza A PCR NEGATIVE (Negative); Influenza B PCR NEGATIVE (Negative); Resp Syncy Virus RNA Qual PCR NEGATIVE (Negative); SARS COV2 PCR INHOUSE POSITIVE (Negative)
[2023-07-05 07:19] LABS: Anion Gap 8 (12-20); Blood Urea Nitrogen 5 mg/dL (9-16); Calcium 8.1 mg/dL (8.4-10.2); Carbon Dioxide 25 mmol/L (22-29); Chloride 101 mmol/L (96-108); Creatinine Clr Calc Pharmacy 105.8; Estimated Glomerular Filt Rate > 60; Glucose Random 114 mg/dL (60-115); Potassium 3.2 mmol/L (3.3-5.1); Sodium 131 mmol/L (135-145)
[2023-07-05] MEDS: cefTRIAXone sodium 2 GM in 0.9 % Sodium Chloride 50 ML IV (08:05)
[2023-07-05] MEDS: Potassium Chloride/H20 10 MEQ/100 ML PIGGYBACK 100 MEQ IV ×4 (08:28→11:14)
--- NOTE | 2023-07-05 09:30 | MHC.CM.PN ---
Attempted to meet w/pt to review d/c planning need: Pt confused: oriented to self only: sitter placed outside of pt's room. Per information from EMR, ICU care team and discussion w/brother, pt has a long hx of bipolar and medication non compliance. Pt will refuse medications only taking large amounts of vitamins with decreased po intake. Pt had been at [facility] INPT psych prior to [address] admission to [facility]. Unknown at this time if pt will need to return to [facility] or return to home w/brother. CM to follow pt for return of orientation to complete CM assessment and assist w/d/c planning needs. No HCP, IMM in chart: PCP Dr. Ruvalcaba.
--- NOTE | 2023-07-05 09:37 | P.PNCC_ITS ---
Subjective Subjective Date of Service: 07/05/23 Interval History: 57-year-old with schizoaffective disorder, bipolar disorder on multiple psychotropic medications admitted on 07/03/2025 diarrhea alteration of mental status. On ER evaluation patient with significant hypernatremia with sodium of 118 and witnessed seizure requiring push doses benzodiazepines. Patient has received IV normal saline bolus. He was started on hypertonic saline and admitted to intensive care unit. In the intensive care unit with not hyper correction his sodium requiring D5 and improvement of his mental status to baseline. Also secondary to witnessed seizure started on Keppra. Critical Care Time (minutes): 0 Physical Exam 2 Vital Signs: Vital Signs: Last Vital Signs Temp 98.6 F 07/05/23 08:00 Pulse 69 07/05/23 09:00 Resp 24 H 07/05/23 09:00 BP 104/55 L 07/05/23 09:00 Pulse Ox 95 07/05/23 09:00 O2 Del Method Nasal Cannula 07/05/23 09:00 O2 Flow Rate 2 07/05/23 09:00 BMI result Body Mass Index 27.4 Const: General: no acute distress, alert, awake and other (Oriented to self and place) Eyes: Sclerae: sclerae normal EOM: EOMs intact bilaterally Neck: Neck: Yes no lymphadenopathy, Yes trachea midline and Yes supple Resp: Effort & Inspection: normal respiratory effort and no respiratory distress Auscultation: clear to auscultation bilaterally Cardio: Rate: regular rate Rhythm: regular rhythm Heart sounds: no gallops, no murmurs and no rubs GI: Palpation (GI): Soft to palpation and Other GI palpation findings present ( Nontender) Auscultation: normal bowel sounds Extrem: General: Yes no pedal edema, No clubbing and No cyanosis Objective Data Labs 07/05/23 04:57 07/05/23 06:54 Labs: Laboratory Results - last 24 hr 07/04/23 07/04/23 07/04/23 08:57 11:17 13:02 WBC RBC Hgb Hct MCV MCH MCHC RDW Plt Count MPV Immature Gran % (Auto) Neut % (Auto) Lymph % (Auto) [place] % (Auto) Eos % (Auto) Baso % (Auto) Lymph # (Auto) [place] # (Auto) Eos # (Auto) Baso # (Auto) Abs Immat Gran (auto) Absolute Neuts (auto) Absolute Nucleated RBC Nucleated RBC % (auto) Sodium 135 134 L 134 L Potassium 3.4 3.4 3.4 Chloride 102 103 103 Carbon Dioxide 23 23 23 Anion Gap 13 11 L 11 L BUN 7 L 7 L 7 L Creatinine 0.95 0.83 0.80 Estim Creat Clear Calc 96.7 110.7 114.9 Estimated GFR > 60 > 60 > 60 Random Glucose 117 H 127 H 126 H Calcium 8.7 8.4 8.5 Vitamin B12 1145 H Folate 11.7 TSH 0.79 Salicylates Acetaminophen Ethyl Alcohol Influenza Type A (PCR) Influenza Type B (PCR) RSV RNA Qual (PCR) SARS-CoV-2 RNA (RT-PCR) 07/04/23 07/04/23 07/04/23 15:01 17:05 19:20 WBC RBC Hgb Hct MCV MCH MCHC RDW Plt Count MPV Immature Gran % (Auto) Neut % (Auto) Lymph % (Auto) [place] % (Auto) Eos % (Auto) Baso % (Auto) Lymph # (Auto) [place] # (Auto) Eos # (Auto) Baso # (Auto) Abs Immat Gran (auto) Absolute Neuts (auto) Absolute Nucleated RBC Nucleated RBC % (auto) Sodium 133 L 130 L 131 L Potassium 3.3 3.4 3.5 Chloride 102 102 102 Carbon Dioxide 23 22 21 L Anion Gap 11 L 9 L 12 BUN 6 L 6 L 6 L Creatinine 0.86 0.83 0.78 Estim Creat Clear Calc 106.9 110.7 117.8 Estimated GFR > 60 > 60 > 60 Random Glucose 128 H 124 H 121 H Calcium 8.3 L 8.1 L 8.2 L Vitamin B12 Folate TSH Salicylates < 5.0 L Acetaminophen < 3 Ethyl Alcohol < 10 Influenza Type A (PCR) Influenza Type B (PCR) RSV RNA Qual (PCR) SARS-CoV-2 RNA (RT-PCR) 07/04/23 07/04/23 07/05/23 21:11 23:38 01:48 WBC RBC Hgb Hct MCV MCH MCHC RDW Plt Count MPV Immature Gran % (Auto) Neut % (Auto) Lymph % (Auto) [place] % (Auto) Eos % (Auto) Baso % (Auto) Lymph # (Auto) [place] # (Auto) Eos # (Auto) Baso # (Auto) Abs Immat Gran (auto) Absolute Neuts (auto) Absolute Nucleated RBC Nucleated RBC % (auto) Sodium 131 L 131 L 132 L Potassium 3.1 L 3.1 L 3.3 Chloride 101 100 102 Carbon Dioxide 24 24 25 Anion Gap 9 L 10 L 8 L BUN 6 L 5 L 5 L Creatinine 0.78 0.79 0.72 Estim Creat Clear Calc 117.8 116.4 127.7 Estimated GFR > 60 > 60 > 60 Random Glucose 117 H 112 113 Calcium 8.0 L 8.2 L 8.0 L Vitamin B12 Folate TSH Salicylates Acetaminophen Ethyl Alcohol Influenza Type A (PCR) Influenza Type B (PCR) RSV RNA Qual (PCR) SARS-CoV-2 RNA (RT-PCR) 07/05/23 07/05/23 07/05/23 03:20 04:57 04:57 WBC 10.3 RBC 3.57 L Hgb 11.4 L Hct 31.8 L MCV 89.1 MCH 31.9 MCHC 35.8 RDW 11.4 Plt Count 213 MPV 10.6 Immature Gran % (Auto) 0.3 Neut % (Auto) 77.1 H Lymph % (Auto) 12.6 L [place] % (Auto) 8.0 Eos % (Auto) 1.7 Baso % (Auto) 0.3 Lymph # (Auto) 1.3 [place] # (Auto) 0.8 Eos # (Auto) 0.2 Baso # (Auto) 0.0 Abs Immat Gran (auto) 0.03 Absolute Neuts (auto) 7.9 Absolute Nucleated RBC 0.000 Nucleated RBC % (auto) 0.0 Sodium 131 L 131 L Potassium 3.2 L 3.3 Chloride 102 101 Carbon Dioxide 25 23 Anion Gap 7 L 10 L BUN 5 L 5 L Creatinine 0.72 0.73 Cancelled Estim Creat Clear Calc 127.7 116.0 Estimated GFR > 60 Random Glucose 116 H Calcium 8.1 L Vitamin B12 Folate TSH Salicylates Acetaminophen Ethyl Alcohol Influenza Type A (PCR) Influenza Type B (PCR) RSV RNA Qual (PCR) SARS-CoV-2 RNA (RT-PCR) 07/05/23 07/05/23 07/05/23 04:57 04:57 05:58 WBC RBC Hgb Hct MCV MCH MCHC RDW Plt Count MPV Immature Gran % (Auto) Neut % (Auto) Lymph % (Auto) [place] % (Auto) Eos % (Auto) Baso % (Auto) Lymph # (Auto) [place] # (Auto) Eos # (Auto) Baso # (Auto) Abs Immat Gran (auto) Absolute Neuts (auto) Absolute Nucleated RBC Nucleated RBC % (auto) Sodium Potassium Chloride Carbon Dioxide Anion Gap BUN Creatinine Estim Creat Clear Calc Cancelled Estimated GFR > 60 Cancelled Random Glucose 117 H Calcium 8.1 L Vitamin B12 Folate TSH Salicylates Acetaminophen Ethyl Alcohol Influenza Type A (PCR) NEGATIVE Influenza Type B (PCR) NEGATIVE RSV RNA Qual (PCR) NEGATIVE SARS-CoV-2 RNA (RT-PCR) POSITIVE A 07/05/23 06:54 WBC RBC Hgb Hct MCV MCH MCHC RDW Plt Count MPV Immature Gran % (Auto) Neut % (Auto) Lymph % (Auto) [place] % (Auto) Eos % (Auto) Baso % (Auto) Lymph # (Auto) [place] # (Auto) Eos # (Auto) Baso # (Auto) Abs Immat Gran (auto) Absolute Neuts (auto) Absolute Nucleated RBC Nucleated RBC % (auto) Sodium 131 L Potassium 3.2 L Chloride 101 Carbon Dioxide 25 Anion Gap 8 L BUN 5 L Creatinine 0.80 Estim Creat Clear Calc 105.8 Estimated GFR > 60 Random Glucose 114 Calcium 8.1 L Vitamin B12 Folate TSH Salicylates Acetaminophen Ethyl Alcohol Influenza Type A (PCR) Influenza Type B (PCR) RSV RNA Qual (PCR) SARS-CoV-2 RNA (RT-PCR) Microbiology Microbiology Results: Microbiology 07/03/23 17:44 Blood - Arterial Blood Culture - Preliminary No growth after 24 hours. 07/03/23 17:01 Blood - Arterial Blood Culture - Preliminary No growth after 24 hours. Progress Note: A&P Assessment and plan (1) Acute hyponatremia: Status: Acute (2) Seizure: Status: Acute (3) Schizoaffective disorder, bipolar type: Status: Acute (4) Bipolar 1 disorder: Status: Acute Plan Assessment: 57-year-old gentleman with schizoaffective and bipolar disorder who stopped taking his medication admitted with hyponatremia and weakness seizure Plan: Neuro: Encephalopathy, likely metabolic related to hyponatremia, resolved. Essentially at baseline. Underlying schizoaffective disorder, restarting on psychiatric medication regimen. Cardiac: No acute issues. Pulmonary: No acute issues. Renal: Acute versus subacute hyponatremia, may be related to carbamazepine use. With over-correction, status post D5. Resolved. Continue to monitor renal indices and urine output. Endo: No acute issues. GI: No acute issues. ID: No acute issues Heme/Onc: No acute issues. Psych: No acute issues. Miscellaneous: No acute issues. Prophylaxis: Heparin Diet: Pending swallow evaluation Quality Stroke Does the patient have a stroke diagnosis?: No VTE Prior VTE?: No VTE Risk Level:: Medical - moderate - high VTE Device Contraindication: N/A - Device Ordered VTE Drug Contraindication: N/A - Med Ordered
[2023-07-05] MEDS: Benztropine Mesylate 1 MG TABLET PO (09:39)
[2023-07-05] MEDS: levETIRAcetam in NaCl (iso-os) 1,000 MG/100 ML PIGGYBACK 400 MG IV (09:39)
[2023-07-05] MEDS: Heparin Sodium,Porcine 5,000 UNIT/ML VIAL 5000 UNIT SUBCUT ×2 (10:12→16:35)
--- NOTE | 2023-07-05 10:17 | P.CNNE_ITS ---
History of Present Illness Data of Consult Service Date: 07/05/23 Primary Care Provider: Fallon Ruvalcaba CNP HPI Reason for consult: Seizure 57 years old man with underlying history of psychiatric disease treated with relatively high dose of Tegretol came to hospital for polydipsia and was noted to have a seizure. His serum sodium was 118 and was admitted in ICU. Now he was feeling better. He said that he was taking Tegretol for mood stabilization. There was no previous history of seizure disorder. Review of Systems 2 Review of Systems: Polydipsia. [facility] Social History Social History Household Members: None Household Members Other:: Girlfriend and her father. Housing: Apartment Housing Other:: [facility] Do you presently have visiting nurse or other home services: No Unable to assess alcohol history related to: Unable to respond Alcohol intake: unknown Comment: 1:1 sitter Patient Tobacco Use Status: Never used Tobacco e-Cigarette/Vaping Use: Never Used Second Hand Smoke Exposure: No Use of substances other than those prescribed or required for medical reasons: Unable to respond Substance Use Type: Caffiene Currently Displaying Signs/Symptoms of Drug Intoxication Withdrawal: No Advance Directives: No Recently lost weight without trying: Unsure Nutrition Risks: Acute nausea or vomiting x1 week Poor oral hygiene: Yes service: Yes (5-6 weeks in the [place].) Sexual orientation: Straight/Heterosexual Meds Allergies Allergy/AdvReac Type Severity Reaction Status Date / Time bupropion [From Wellbutrin] Allergy Mild CAUSES Verified 12/03/22 00:30 SWOLLEN HEAD tetracycline [Tetracycline] Allergy Mild UNKNOWN Verified 12/03/22 00:30 trifluoperazine Allergy Mild UNKNOWN Verified 12/03/22 00:30 [From Stelazine] clozapine [From Clozaril] AdvReac Mild SEIZURES,NE Verified 12/03/22 00:30 UTROPENIA Active Medications: Current Medications Albuterol Sulfate (Albuterol Sulfate (0.083%) 2.5 Mg/3 Ml Vial.Neb) 2.5 mg INHALE Q6H PRN PRN Reason: Wheezing Last Admin: 07/04/23 23:38 Dose: 2.5 mg Benztropine Mesylate (Benztropine Mesylate 1 Mg Tablet) 1 mg PO BID ANJUM Last Admin: 07/05/23 09:39 Dose: 1 mg Haloperidol (Haloperidol 5 Mg Tablet) 10 mg PO BID [facility] Last Admin: 07/05/23 10:12 Dose: 10 mg Heparin Sodium (Porcine) (Heparin Sodium,Porcine 5,000 Unit/Ml Vial) 5,000 unit SUBCUT Q8H [facility] Last Admin: 07/05/23 10:12 Dose: 5,000 unit Potassium Chloride (Potassium Chloride/H20) 10 meq in 100 mls @ 100 mls/hr IV Q1H [facility] Stop: 07/05/23 12:14 Last Admin: 07/05/23 09:39 Dose: 100 mls/hr Pantoprazole Sodium (Pantoprazole Sodium 40 Mg/10 Ml Vial) 40 mg IVPUSH DAILY@0630 [facility] Last Admin: 07/05/23 05:14 Dose: 40 mg Pharmacy Consult (Consult Rx Vancomycin Dosing) 1 each MISCELLANE DAILY PRN PRN Reason: Consult order Physical Exam 2 Vital Signs: Vital Signs: Last Vital Signs Temp 98.6 F 07/05/23 08:00 Pulse 84 07/05/23 10:00 Resp 15 07/05/23 10:00 BP 122/68 07/05/23 10:00 Pulse Ox 100 07/05/23 10:00 O2 Del Method Nasal Cannula 07/05/23 10:00 O2 Flow Rate 2 07/05/23 10:00 BMI result Body Mass Index 27.4 Neuro: Other: He is alert and awake with normal spontaneity of speech fluency comprehension and flat affect. Intermittently he was coughing. Face was symmetrical. Visual blancas are full. There was no focal weakness. Deep tendon reflexes were trace to absent with flat plantars. Speech was normal. Results Labs 07/05/23 04:57 07/05/23 06:54 Labs: Short CBC 07/05/23 Range/Units 04:57 WBC 10.3 (4.8-10.8) X10*3/uL Hgb 11.4 L (14.0-18.0) g/dl Hct 31.8 L (42.0-52.0) % Plt Count 213 (160-400) X10*3/uL BMP 07/04/23 07/04/23 07/04/23 11:17 13:02 15:01 Sodium 134 L 134 L 133 L Potassium 3.4 3.4 3.3 Chloride 103 103 102 Carbon Dioxide 23 23 23 BUN 7 L 7 L 6 L Creatinine 0.83 0.80 0.86 Calcium 8.4 8.5 8.3 L 07/04/23 07/04/23 07/04/23 17:05 19:20 21:11 Sodium 130 L 131 L 131 L Potassium 3.4 3.5 3.1 L Chloride 102 102 101 Carbon Dioxide 22 21 L 24 BUN 6 L 6 L 6 L Creatinine 0.83 0.78 0.78 Calcium 8.1 L 8.2 L 8.0 L 07/04/23 07/05/23 07/05/23 23:38 01:48 03:20 Sodium 131 L 132 L 131 L Potassium 3.1 L 3.3 3.2 L Chloride 100 102 102 Carbon Dioxide 24 25 25 BUN 5 L 5 L 5 L Creatinine 0.79 0.72 0.72 Calcium 8.2 L 8.0 L 8.1 L 07/05/23 07/05/23 07/05/23 04:57 04:57 06:54 Sodium 131 L 131 L Potassium 3.3 3.2 L Chloride 101 101 Carbon Dioxide 23 25 BUN 5 L 5 L Creatinine 0.73 Cancelled 0.80 Calcium 8.1 L 8.[address] did not reveal any acute abnormality. Adjust sent 2 4th ventricle, her lesion was noted that has been investigated with MRI in the past. It revealed diffuse calcification probably from a meningioma. There was no hydrocephalus. Microbiology Microbiology Results: Microbiology 07/03/23 17:44 Blood - Arterial Blood Culture - Preliminary No growth after 24 hours. 07/03/23 17:01 Blood - Arterial Blood Culture - Preliminary No growth after 24 hours. Assessment and Plan (1) Seizure: Status: Acute Probably hyponatremia related, which likely was triggered by higher dose of carbamazepine. Slow treatment of hyponatremia is recommended. I would also recommend decreasing dose of carbamazepine or stopping this medicine to prevent any such future events. Chances of that was increasing as he was getting older. (2) Brain lesion: Status: Acute This is probably a meningioma and unrelated and is symptomatic at this time. Procedures Date of Service Date of Service: 07/05/23
[2023-07-05 14:32] LABS: Anion Gap 10 (12-20); Blood Urea Nitrogen 6 mg/dL (9-16); Calcium 8.4 mg/dL (8.4-10.2); Carbon Dioxide 25 mmol/L (22-29); Chloride 101 mmol/L (96-108); Creatinine Clr Calc Pharmacy 114.4; Estimated Glomerular Filt Rate > 60; Glucose Random 118 mg/dL (60-115); Potassium 3.6 mmol/L (3.3-5.1); Sodium 132 mmol/L (135-145)
[2023-07-06] VITALS (14 sets, daily range): BP systolic 92–125; BP diastolic 52–66; PULSE 62–83; RESP 11–29; TEMP 36.9–37.3; O2SAT 92–97; BMI 26.7
[2023-07-06] MEDS: Heparin Sodium,Porcine 5,000 UNIT/ML VIAL 5000 UNIT SUBCUT ×2 (02:03→10:18)
[2023-07-06 05:11] LABS: Basophils Percent Auto 0.4 % (0-2); Eosinophils Absolute Auto 0.2 X10*3/uL (0.0-0.4); Eosinophils Percent Auto 1.5 % (0-4); Hemoglobin 12.5 g/dl (14.0-18.0); Imm Gran Abs Auto 0.03 X10*3/uL (0.00-0.03); Imm Gran Pct Auto 0.3 % (0.0-0.4); Lymphocytes Absolute Auto 1.1 X10*3/uL (1.2-4.9); MANUAL DIFF FLAG NO; Mean Corpuscular HGB Conc 35.7 g/dl (31.0-36.0); Mean Corpuscular Hemoglobin 32.6 pg (27.0-33.0); Mean Corpuscular Volume 91.1 fL (80.0-98.0); Mean Platelet Volume 10.9 fL (9.4-12.4); Monocytes Absolute Auto 0.8 X10*3/uL (0.1-1.2); Monocytes Percent Auto 7.3 % (2-11); Neutrophils Absolute Auto 8.9 x10*3/uL (2.0-8.3); Neutrophils Percent Auto 80.5 % (45-73); Platelet Count 258 X10*3/uL (160-400); Red Blood Count 3.84 X10*6/uL (4.60-5.80); Red Cell Distribution Width 11.7 % (11.0-16.0); White Blood Count 11.1 X10*3/uL (4.8-10.8)
[2023-07-06] MEDS: Pantoprazole Sodium 40 MG/10 ML VIAL IVPUSH (05:28)
[2023-07-06 05:34] LABS: Albumin Level 3.2 g/dL (3.5-5.0); Anion Gap 14 (12-20); Blood Urea Nitrogen 10 mg/dL (9-16); Calcium 8.8 mg/dL (8.4-10.2); Carbon Dioxide 23 mmol/L (22-29); Chloride 106 mmol/L (96-108); Creatinine Clr Calc Pharmacy 104.5; Estimated Glomerular Filt Rate > 60; Glucose Random 100 mg/dL (60-115); Phosphorus 2.8 mg/dL (2.7-4.5); Potassium 3.7 mmol/L (3.3-5.1); Sodium 139 mmol/L (135-145)
--- NOTE | 2023-07-06 09:17 | PM.CCPN ---
Subjective Subjective Date of Service: 07/06/23 Interval History: 57-year-old with schizoaffective disorder, bipolar disorder on multiple psychotropic medications admitted on 07/03/2025 diarrhea alteration of mental status. On ER evaluation patient with significant hypernatremia with sodium of 118 and witnessed seizure requiring push doses benzodiazepines, also COVID-19 positive. Patient has received IV normal saline bolus. He was started on hypertonic saline and admitted to intensive care unit. In the intensive care unit with overcorrection of his sodium requiring D5 and improvement of his mental status to baseline. No events overnight. Critical Care Time (minutes): 0 Physical Exam Vital Signs: Vital Signs: Last Vital Signs Temp 98.5 F 07/06/23 08:00 Pulse 75 07/06/23 09:00 Resp 15 07/06/23 09:00 BP 103/57 L 07/06/23 09:00 Pulse Ox 94 07/06/23 09:00 O2 Del Method Room Air 07/06/23 09:00 O2 Flow Rate 2 07/05/23 12:00 BMI result Body Mass Index 26.7 Const: General: no acute distress, alert, awake and other (Oriented to self and place) Eyes: Sclerae: sclerae normal EOM: EOMs intact bilaterally Neck: Neck: Yes no lymphadenopathy, Yes trachea midline and Yes supple Resp: Effort & Inspection: normal respiratory effort and no respiratory distress Auscultation: clear to auscultation bilaterally Cardio: Rate: regular rate Rhythm: regular rhythm Heart sounds: no gallops, no murmurs and no rubs GI: Palpation (GI): Soft to palpation and Other GI palpation findings present ( Nontender) Auscultation: normal bowel sounds Extrem: General: Yes no pedal edema, No clubbing and No cyanosis Objective Data Labs 07/06/23 04:55 07/06/23 04:55 Labs: Laboratory Results - last 24 hr 07/05/23 07/06/23 13:58 04:55 WBC 11.1 H RBC 3.84 L Hgb 12.5 L Hct 35.0 L MCV 91.1 MCH 32.6 MCHC 35.7 RDW 11.7 Plt Count 258 MPV 10.9 Immature Gran % (Auto) 0.3 Neut % (Auto) 80.5 H Lymph % (Auto) 10.0 L [place] % (Auto) 7.3 Eos % (Auto) 1.5 Baso % (Auto) 0.4 Lymph # (Auto) 1.1 L [place] # (Auto) 0.8 Eos # (Auto) 0.2 Baso # (Auto) 0.0 Abs Immat Gran (auto) 0.03 Absolute Neuts (auto) 8.9 H Absolute Nucleated RBC 0.000 Nucleated RBC % (auto) 0.0 Sodium 132 L 139 Potassium 3.6 3.7 Chloride 101 106 Carbon Dioxide 25 23 Anion Gap 10 L 14 BUN 6 L 10 Creatinine 0.74 0.81 Estim Creat Clear Calc 114.4 104.5 Estimated GFR > 60 > 60 Random Glucose 118 H 100 Calcium 8.4 8.8 Phosphorus 2.8 Magnesium 2.0 Albumin 3.2 L Microbiology Microbiology Results: Microbiology 07/03/23 17:44 Blood - Arterial Blood Culture - Preliminary No growth after 48 hours. 07/03/23 17:01 Blood - Arterial Blood Culture - Preliminary No growth after 48 hours. Progress Note: A&P Assessment and plan (1) COVID-19: Status: Acute (2) Brain lesion: Status: Acute (3) Bipolar 1 disorder: Status: Acute (4) Acute hyponatremia: Status: Acute (5) Seizure: Status: Acute (6) Schizoaffective disorder, bipolar type: Status: Acute Plan Assessment: 57-year-old gentleman with schizoaffective and bipolar disorder who stopped taking his medication admitted with hyponatremia and weakness seizure Plan: Neuro: Encephalopathy, likely metabolic related to hyponatremia, resolved. Essentially at baseline. Underlying schizoaffective disorder, restarting on psychiatric medication regimen. Evaluated by Neurology, seizure deemed to be secondary to hyponatremia and not requiring further antiepileptic medications. Brain lesion deemed to be meningioma and not requiring further follow-up. Cardiac: No acute issues. Pulmonary: No acute issues. Renal: Acute versus subacute hyponatremia, may be related to carbamazepine use. With over-correction, status post D5. Resolved. Continue to monitor renal indices and urine output. Endo: No acute issues. GI: No acute issues. ID: No acute issues Heme/Onc: No acute issues. Psych: No acute issues. Miscellaneous: No acute issues. Prophylaxis: Heparin Diet: regular Quality Stroke Does the patient have a stroke diagnosis?: No VTE Prior VTE?: No VTE Risk Level:: Medical - moderate - high VTE Device Contraindication: N/A - Device Ordered VTE Drug Contraindication: N/A - Med Ordered
--- NOTE | 2023-07-06 13:39 | P.CNPS_ITS ---
History of Present Illness Date of Service: t Chief Complaint: Hyponatremia Reason for Consult: Assessment of psychiatric medications Requesting physician: Khang Galloway Discussed with referring provider: Yes Sources of Information: patient interviewed, chart reviewed and crisis/core team assessment reviewed HPI Narrative: The patient is a 57-year-old male, single, living with his girlfriend, transferred from [facility] after he decompensate medically. The kitchen is very well known by this team since he had been admitted at this facility several times. He carries a diagnosis of schizoaffective disorder bipolar type and he is chronically noncompliant with medications. Historically we have to go to court for Section 7 and 8 to have treatment over objection. The patient was initially admitted at [facility] on June 17 and he had been on compliant of Tegretol and lithium. Later on, he had a diarrhea and he had severe hyponatremia. Was rushed to the emergency room he had a seizure most likely induced by hyponatremia. Was transferred to the ICU where had been medically treated. He does not have prior history of seizure disorder. The patient was interviewed at bedside, he was dysphoric, with good eye contact and delayed responses. He admitted auditory hallucinations and he adamantly denies active suicidal ideation, though that he was suicidal before being admitted [facility] in June 17. The patient does not want to take any psychiatric medications, he only wants to take her vitamins. At this moment he is grossly psychotic, with paranoid delusions and auditory hallucinations. I advised him to take his medications but he refused to engage. At this moment, the patient is more stable medically and he will probably be transferred to a roller medical floor. The patient has the life insurance underwriter refused medications at this moment since there is no court order for treatment over objection. Past Psychiatric History: -Has OP psych services at [facility], Psychiatrist is Urban Nolasco -Hx of multiple IPLOC -Denies hx of suicide attempts or SIB -Past meds: lamictal, bupropion XL (?makes you numb?), Stelazine (took at age 14, ?burned my skull and my bones?), clozapine (says he had a seizure on higher dose) Medical Evaluation Reviewed: Yes PMFSH Family History: deferred Social History: -Pt born and raised in [place], has two brothers, parents are both . -Lives with his gf for over 16 years, not , no children. -Unemployed, has SSDI. In the past he worked at [employer], [employer]. -Hx of being in [place] as young adult Trauma History: -Not discussed Diagnostics Vital Signs (24Hr): Vital Signs - 24 hr 07/05/23 14:00 07/05/23 15:00 07/05/23 16:00 Temperature 98.2 F Pulse Rate 63 68 68 Respiratory Rate 24 H 20 18 Blood Pressure 106/54 L 111/64 117/63 Pulse Oximetry 97 99 98 Oxygen Delivery Method Room Air Room Air Room Air 07/05/23 17:00 07/05/23 18:00 07/05/23 19:00 Temperature Pulse Rate 80 76 72 Respiratory Rate 20 16 25 H Blood Pressure 120/70 101/58 L 114/69 Pulse Oximetry 98 95 97 Oxygen Delivery Method Room Air Room Air Room Air 07/05/23 20:00 07/05/23 21:00 07/05/23 22:00 Temperature 98.7 F Pulse Rate 75 83 75 Respiratory Rate 22 H 19 11 L Blood Pressure 117/67 107/62 106/57 L Pulse Oximetry 94 94 93 Oxygen Delivery Method Room Air Room Air Room Air 07/05/23 23:00 07/06/23 00:00 07/06/23 01:00 Temperature Pulse Rate 66 64 67 Respiratory Rate 24 H 24 H 26 H Blood Pressure 103/55 L 96/55 L 92/52 L Pulse Oximetry 93 94 93 Oxygen Delivery Method Room Air Room Air Room Air 07/06/23 01:57 07/06/23 03:00 07/06/23 04:00 Temperature 98.9 F Pulse Rate 62 79 74 Respiratory Rate 27 H 14 27 H Blood Pressure 96/54 L 101/56 L 110/64 Pulse Oximetry 94 96 92 Oxygen Delivery Method Room Air Room Air Room Air 07/06/23 05:00 07/06/23 06:00 07/06/23 07:00 Temperature Pulse Rate 71 68 75 Respiratory Rate 11 L 14 23 H Blood Pressure 106/61 107/64 110/60 Pulse Oximetry 93 95 92 Oxygen Delivery Method Room Air Room Air Room Air 07/06/23 08:00 07/06/23 09:00 07/06/23 10:00 Temperature 98.5 F Pulse Rate 83 75 69 Respiratory Rate 15 15 17 Blood Pressure 104/59 L 103/57 L 107/57 L Pulse Oximetry 94 94 97 Oxygen Delivery Method Room Air Room Air Room Air 07/06/23 11:00 Temperature Pulse Rate 69 Respiratory Rate 16 Blood Pressure 107/66 Pulse Oximetry 96 Oxygen Delivery Method Room Air BMI result Body Mass Index 26.7 Labs 07/06/23 04:55 07/06/23 04:55 Labs: Laboratory Results - last 48 hr 07/04/23 07/04/23 07/04/23 15:01 17:05 19:20 WBC RBC Hgb Hct MCV MCH MCHC RDW Plt Count MPV Immature Gran % (Auto) Neut % (Auto) Lymph % (Auto) [place] % (Auto) Eos % (Auto) Baso % (Auto) Lymph # (Auto) [place] # (Auto) Eos # (Auto) Baso # (Auto) Abs Immat Gran (auto) Absolute Neuts (auto) Absolute Nucleated RBC Nucleated RBC % (auto) Sodium 133 L 130 L 131 L Potassium 3.3 3.4 3.5 Chloride 102 102 102 Carbon Dioxide 23 22 21 L Anion Gap 11 L 9 L 12 BUN 6 L 6 L 6 L Creatinine 0.86 0.83 0.78 Estim Creat Clear Calc 106.9 110.7 117.8 Estimated GFR > 60 > 60 > 60 Random Glucose 128 H 124 H 121 H Calcium 8.3 L 8.1 L 8.2 L Phosphorus Magnesium Albumin Salicylates < 5.0 L Acetaminophen < 3 Ethyl Alcohol < 10 Influenza Type A (PCR) Influenza Type B (PCR) RSV RNA Qual (PCR) SARS-CoV-2 RNA (RT-PCR) 07/04/23 07/04/23 07/05/23 21:11 23:38 01:48 WBC RBC Hgb Hct MCV MCH MCHC RDW Plt Count MPV Immature Gran % (Auto) Neut % (Auto) Lymph % (Auto) [place] % (Auto) Eos % (Auto) Baso % (Auto) Lymph # (Auto) [place] # (Auto) Eos # (Auto) Baso # (Auto) Abs Immat Gran (auto) Absolute Neuts (auto) Absolute Nucleated RBC Nucleated RBC % (auto) Sodium 131 L 131 L 132 L Potassium 3.1 L 3.1 L 3.3 Chloride 101 100 102 Carbon Dioxide 24 24 25 Anion Gap 9 L 10 L 8 L BUN 6 L 5 L 5 L Creatinine 0.78 0.79 0.72 Estim Creat Clear Calc 117.8 116.4 127.7 Estimated GFR > 60 > 60 > 60 Random Glucose 117 H 112 113 Calcium 8.0 L 8.2 L 8.0 L Phosphorus Magnesium Albumin Salicylates Acetaminophen Ethyl Alcohol Influenza Type A (PCR) Influenza Type B (PCR) RSV RNA Qual (PCR) SARS-CoV-2 RNA (RT-PCR) 07/05/23 07/05/23 07/05/23 03:20 04:57 04:57 WBC 10.3 RBC 3.57 L Hgb 11.4 L Hct 31.8 L MCV 89.1 MCH 31.9 MCHC 35.8 RDW 11.4 Plt Count 213 MPV 10.6 Immature Gran % (Auto) 0.3 Neut % (Auto) 77.1 H Lymph % (Auto) 12.6 L [place] % (Auto) 8.0 Eos % (Auto) 1.7 Baso % (Auto) 0.3 Lymph # (Auto) 1.3 [place] # (Auto) 0.8 Eos # (Auto) 0.2 Baso # (Auto) 0.0 Abs Immat Gran (auto) 0.03 Absolute Neuts (auto) 7.9 Absolute Nucleated RBC 0.000 Nucleated RBC % (auto) 0.0 Sodium 131 L 131 L Potassium 3.2 L 3.3 Chloride 102 101 Carbon Dioxide 25 23 Anion Gap 7 L 10 L BUN 5 L 5 L Creatinine 0.72 0.73 Cancelled Estim Creat Clear Calc 127.7 116.0 Estimated GFR > 60 Random Glucose 116 H Calcium 8.1 L Phosphorus Magnesium Albumin Salicylates Acetaminophen Ethyl Alcohol Influenza Type A (PCR) Influenza Type B (PCR) RSV RNA Qual (PCR) SARS-CoV-2 RNA (RT-PCR) 07/05/23 07/05/23 07/05/23 04:57 04:57 05:58 WBC RBC Hgb Hct MCV MCH MCHC RDW Plt Count MPV Immature Gran % (Auto) Neut % (Auto) Lymph % (Auto) Ware % (Auto) Eos % (Auto) Baso % (Auto) Lymph # (Auto) [place] # (Auto) Eos # (Auto) Baso # (Auto) Abs Immat Gran (auto) Absolute Neuts (auto) Absolute Nucleated RBC Nucleated RBC % (auto) Sodium Potassium Chloride Carbon Dioxide Anion Gap BUN Creatinine Estim Creat Clear Calc Cancelled Estimated GFR > 60 Cancelled Random Glucose 117 H Calcium 8.1 L Phosphorus Magnesium Albumin Salicylates Acetaminophen Ethyl Alcohol Influenza Type A (PCR) NEGATIVE Influenza Type B (PCR) NEGATIVE RSV RNA Qual (PCR) NEGATIVE SARS-CoV-2 RNA (RT-PCR) POSITIVE A 07/05/23 07/05/23 07/06/23 06:54 13:58 04:55 WBC 11.1 H RBC 3.84 L Hgb 12.5 L Hct 35.0 L MCV 91.1 MCH 32.6 MCHC 35.7 RDW 11.7 Plt Count 258 MPV 10.9 Immature Gran % (Auto) 0.3 Neut % (Auto) 80.5 H Lymph % (Auto) 10.0 L [place] % (Auto) 7.3 Eos % (Auto) 1.5 Baso % (Auto) 0.4 Lymph # (Auto) 1.1 L [place] # (Auto) 0.8 Eos # (Auto) 0.2 Baso # (Auto) 0.0 Abs Immat Gran (auto) 0.03 Absolute Neuts (auto) 8.9 H Absolute Nucleated RBC 0.000 Nucleated RBC % (auto) 0.0 Sodium 131 L 132 L 139 Potassium 3.2 L 3.6 3.7 Chloride 101 101 106 Carbon Dioxide 25 25 23 Anion Gap 8 L 10 L 14 BUN 5 L 6 L 10 Creatinine 0.80 0.74 0.81 Estim Creat Clear Calc 105.8 114.4 104.5 Estimated GFR > 60 > 60 > 60 Random Glucose 114 118 H 100 Calcium 8.1 L 8.4 8.8 Phosphorus 2.8 Magnesium 2.0 Albumin 3.2 L Salicylates Acetaminophen Ethyl Alcohol Influenza Type A (PCR) Influenza Type B (PCR) RSV RNA Qual (PCR) SARS-CoV-2 RNA (RT-PCR) Imaging Radiology Impressions: ITS Impressions Head CT 07/03/23 16:42 IMPRESSION: No acute intracranial abnormality. Stable 1.5 cm lobulated focus of calcification within the right aspect of the fourth ventricle. No hydrocephalus. Paranasal sinus mucosal thickening with complete opacification of the right maxillary sinus. Chest X-Ray 07/03/23 16:46 IMPRESSION: No acute cardiopulmonary abnormality. KUB X-Ray 07/04/23 10:15 IMPRESSION: No anticipated radiopaque foreign body identified. Mental Status Exam Mental Status Exam Patient Appearance: Appropriate (On hospital gowns) and Unkempt Patient Orientation: Person and Situation Level of Consciousness: Awake Patient Behavior: Guarded and Suspicious Mood Description: Withdrawn Affect Description: Blunted Patient Cognition Impaired: No Ability to Follow Directions: Fair Speech Pattern: Clear Hallucinations: Auditory and Visual Delusions: Paranoid Ideation, Grandiose and Ideas of Reference Thought Process: Illogical Thought Content: positive for Driscoll, positive for Loose Associations, positive for Thought Blocking and positive for Tangential Judgement: Poor Medications Medications Current Medications Albuterol Sulfate (Albuterol Sulfate (0.083%) 2.5 Mg/3 Ml Vial.Neb) 2.5 mg INHALE Q6H PRN PRN Reason: Wheezing Last Admin: 07/04/23 23:38 Dose: 2.5 mg Benztropine Mesylate (Benztropine Mesylate 1 Mg Tablet) 1 mg PO BID [facility] Last Admin: 07/06/23 08:48 Dose: Not Given Haloperidol (Haloperidol 5 Mg Tablet) 10 mg PO BID [facility] Last Admin: 07/06/23 08:48 Dose: Not Given Heparin Sodium (Porcine) (Heparin Sodium,Porcine 5,000 Unit/Ml Vial) 5,000 unit SUBCUT Q8H [facility] Last Admin: 07/06/23 10:18 Dose: 5,000 unit Allergies Allergies Allergy/AdvReac Type Severity Reaction Status Date / Time bupropion [From Wellbutrin] Allergy Mild CAUSES Verified 12/03/22 00:30 SWOLLEN HEAD tetracycline [Tetracycline] Allergy Mild UNKNOWN Verified 12/03/22 00:30 trifluoperazine Allergy Mild UNKNOWN Verified 12/03/22 00:30 [From Stelazine] clozapine [From Clozaril] AdvReac Mild SEIZURES,NE Verified 12/03/22 00:30 UTROPENIA Assessment & Plan Assessment & Plan (1) COVID-19: Status: Acute Code(s): U07.1 - COVID-19 (2) Schizoaffective disorder, bipolar type: Status: Acute Code(s): F25.0 - Schizoaffective disorder, bipolar type (3) Acute hyponatremia: Status: Acute Code(s): E87.1 - Hypo-osmolality and hyponatremia Plan The patient is an elderly male with a past history of schizoaffective disorder with several admissions into the hospital for psychosis and mood lability was transferred from another psychiatric hospital for altered mental status in the context of date irritation, seizures the needed ICU admission. The current consult was asked to assess psychiatric treatment. Plan 1. The patient has a chronic history of noncompliance, he had not been taking his mood stabilizers or antipsychotics for several weeks. According to the documentation since June 17 he had not been taking any Depakote, Tegretol or mood stabilizers. At this moment, the patient is refusing any treatment. 2. The patient will benefit of antipsychotics since he has active signs and symptoms of psychosis. Historically he has been always poorly compliant and we need to go to court to get treatment over objection. At this moment, the patient has the right refused antipsychotics such as Haldol since we do not have a court order for treatment over objection. Even though, if the patient gets agitated and there is the risk of self or others we can medicate him as an emergency basis on a p.r.n.. We suggest Haldol 5, Benadryl 50 and Ativan 2 IM if he gets extremely agitated. 3. The patient is medically cleared, the patient will benefit of a reassessment for the need of inpatient level of care in a psychiatric unit. Reconsult when the patient is medically cleared. Total time managing care of this patient today __45__ minutes. Patient educated on: diagnosis and therapeutic strategies Informed Consent: further education needed
--- NOTE | 2023-07-06 14:48 | MHC.CM.PN ---
Pt continues care in ICU: Na+ has normalized and pt is more alert and verbal. Seen by psych and found to have active psychotic features. Pt came from [facility] where he had been for tx of schizophrenia and refusing medications. Pt does not have a Shetty order and has been refusing all antipsychotic medications. Will await guidance from Psych for finalizaiton of d/c needs - pt may need continued inpt psych care. COVID +. CM to follow.
--- NOTE | 2023-07-06 16:54 | PM.EVENT ---
Event Note Date of Service: 07/07/23 Event Note: Pt seen and examined, hyponatremia resolved, no further seizure, refusing care/meds. Discussed with ICU provider, A/P today per ICU. Discussed with Psych, will need inpaitent admit when medically stable Time Spent With Patient Time: Total time managing care of this patient today ____ minutes.
[2023-07-07] VITALS (7 sets, daily range): BP systolic 117–134; BP diastolic 61–78; PULSE 62–70; RESP 17–20; TEMP 37–37.3; O2SAT 93–96
[2023-07-07 07:40] LABS: MANUAL DIFF FLAG NO
[2023-07-07 08:10] LABS: Albumin Level 3.3 g/dL (3.5-5.0); Anion Gap 13 (12-20); Blood Urea Nitrogen 9 mg/dL (9-16); Calcium 9.1 mg/dL (8.4-10.2); Carbon Dioxide 24 mmol/L (22-29); Chloride 106 mmol/L (96-108); Estimated Glomerular Filt Rate > 60; Glucose Random 95 mg/dL (60-115); Magnesium 1.9 mg/dL (1.6-2.6); Phosphorus 3.3 mg/dL (2.7-4.5); Potassium 3.7 mmol/L (3.3-5.1); Sodium 139 mmol/L (135-145)
[2023-07-07 08:18] LABS: Basophils Percent Auto 0.6 % (0-2); Eosinophils Absolute Auto 0.2 X10*3/uL (0.0-0.4); Eosinophils Percent Auto 2.8 % (0-4); Hematocrit 36.3 % (42.0-52.0); Hemoglobin 12.8 g/dl (14.0-18.0); Imm Gran Abs Auto 0.02 X10*3/uL (0.00-0.03); Imm Gran Pct Auto 0.3 % (0.0-0.4); Lymphocytes Absolute Auto 1.3 X10*3/uL (1.2-4.9); Mean Corpuscular HGB Conc 35.3 g/dl (31.0-36.0); Mean Corpuscular Volume 90.8 fL (80.0-98.0); Mean Platelet Volume 11.3 fL (9.4-12.4); Monocytes Absolute Auto 0.6 X10*3/uL (0.1-1.2); Monocytes Percent Auto 9.3 % (2-11); Neutrophils Absolute Auto 4.7 x10*3/uL (2.0-8.3); Platelet Count 292 X10*3/uL (160-400); Red Cell Distribution Width 11.7 % (11.0-16.0); White Blood Count 6.9 X10*3/uL (4.8-10.8)
--- NOTE | 2023-07-07 09:48 | P.PNIM_ITS ---
Subjective Subjective Date of Service: 07/07/23 Interval History: f/u seizure, hypOnatremia, Psychosis sodium normal, no further seizure, no sob he is refusing all meds Physical Exam 2 Vital Signs: Vital Signs: Last Vital Signs Temp 98.7 F 07/07/23 07:14 Pulse 70 07/07/23 07:14 Resp 18 07/07/23 07:14 BP 123/69 07/07/23 07:14 Pulse Ox 93 07/07/23 07:14 O2 Del Method Room Air 07/07/23 07:14 O2 Flow Rate 2 07/05/23 12:00 BMI result Body Mass Index 26.7 Const: Other: General: AO X 2, no acute distress Resp: CTA bilateral CVS: S1,S2,RRR GI: +BS, NT, no distention Skin: No rash Neuro: motor grossly intact Psych: appropriate affect Objective Data Active Medications Albuterol Sulfate (Albuterol Sulfate (0.083%) 2.5 Mg/3 Ml Vial.Neb) 2.5 mg INHALE Q6H PRN PRN Reason: Wheezing Last Admin: 07/04/23 23:38 Dose: 2.5 mg Documented By: TYE Benztropine Mesylate (Benztropine Mesylate 1 Mg Tablet) 1 mg PO BID [facility] Last Admin: 07/07/23 07:49 Dose: Not Given Documented By: HARLAN Non-Admin Reason: Patient Refused Haloperidol (Haloperidol 5 Mg Tablet) 10 mg PO BID [facility] Last Admin: 07/07/23 07:50 Dose: Not Given Documented By: HARLAN Non-Admin Reason: Patient Refused Heparin Sodium (Porcine) (Heparin Sodium,Porcine 5,000 Unit/Ml Vial) 5,000 unit SUBCUT Q8H [facility] Last Admin: 07/07/23 07:50 Dose: Not Given Documented By: HARLAN Non-Admin Reason: Patient Refused Labs 07/07/23 07:19 07/07/23 07:19 Labs: Laboratory Results - last 24 hr 07/07/23 07:19 MCV 90.8 MCH 32.0 MCHC 35.3 RDW 11.7 Plt Count 292 MPV 11.3 Immature Gran % (Auto) 0.3 Neut % (Auto) 68.0 Lymph % (Auto) 19.0 L Branch % (Auto) 9.3 Eos % (Auto) 2.8 Baso % (Auto) 0.6 Lymph # (Auto) 1.3 Branch # (Auto) 0.6 Eos # (Auto) 0.2 Baso # (Auto) 0.0 Abs Immat Gran (auto) 0.02 Absolute Neuts (auto) 4.7 Absolute Nucleated RBC 0.000 Nucleated RBC % (auto) 0.0 Anion Gap 13 Estim Creat Clear Calc 110.0 Estimated GFR > 60 Random Glucose 95 Calcium 9.1 Phosphorus 3.3 Magnesium 1.9 Albumin 3.3 L Assessment and Plan (1) COVID-19: Status: Acute (2) Brain lesion: Status: Acute (3) Acute hyponatremia: Status: Acute (4) Seizure: Status: Acute Plan 57-year-old with schizoaffective disorder, bipolar disorder on multiple psychotropic medications admitted on 07/03/2025 diarrhea alteration of mental status. In ED, noted to have hyponateremia sodium of 118 and had witnessed seizure and was subsequently admitted to the ICU and given NS, and hypertonic saline, he has also tested positive for coivd without respiratory symptoms.. He has decompensated Psychosis and refusing care and meds. Acute hypOnatremia--likely related to Tegretol, resolved following, NS, hypertonic saline and later given D5 d/t rapid correction. Tegretol stopped Brain lesion likely meningioma, will need outpatient follow up Seizure--likely related hyponatermia, seen by neuro. No further testing at this time Psychosis--refusing Haldol and Benztropin. To be admitted to Psych, will discuss with Psych Psychosis/schizophrenia Covid--Assymptomatic Quality Stroke Does the patient have a stroke diagnosis?: No VTE Prior VTE?: No VTE Risk Level:: Medical - moderate - high VTE Device Contraindication: N/A - Device Ordered VTE Drug Contraindication: N/A - Med Ordered
--- NOTE | 2023-07-07 12:06 | MHC.CM.PN ---
PER MEDICAL ROUNDS AND REVIEW OF CHART, PATIENT IS MEDICALLY CLEAR FOR DISCHARGE HE CONTINUES TO REFUSE MEDICATION ADMINISTRATION. HOSPITALIST IN COMMUNICATIONS WITH PSYCHIATRY TO EVALUATE FOR IP PSYCHIATRIC ADMISSION.
[2023-07-08 03:18] VITALS: BP 126/69; PULSE 64; RESP 14; TEMP 36.4; O2SAT 92
[2023-07-08 07:06] LABS: Anion Gap 10 (12-20); Blood Urea Nitrogen 11 mg/dL (9-16); Calcium 8.9 mg/dL (8.4-10.2); Carbon Dioxide 27 mmol/L (22-29); Chloride 107 mmol/L (96-108); Creatinine Clr Calc Pharmacy 97.3; Estimated Glomerular Filt Rate > 60; Glucose Random 106 mg/dL (60-115); Potassium 3.7 mmol/L (3.3-5.1); Sodium 140 mmol/L (135-145)
[2023-07-08 07:31] VITALS: BP 132/62; PULSE 63; RESP 20; TEMP 36.8; O2SAT 95
--- NOTE | 2023-07-08 09:29 | P.DS_ITS ---
DS: Providers Provider Date of Service: 07/08/23 Date of admission: 07/03/23 20:47 Primary care physician: Fallon Ruvalcaba CNP Consults: 07/03/23 23:02 Consult to Neurology Routine Consulting Provider: [facility] Reason for consultation: new sz and 4th ventricular lession Has provider been notified: No 07/04/23 07:34 Consult to Nephrology Routine Consulting Provider: [facility] Reason for consultation: Acute HypOnatremia with seizure Has provider been notified: Yes 07/06/23 08:40 Consult to Psychiatry Routine Consulting Provider: [facility] Reason for consultation: Medication regimen adjustment Has provider been notified: No 07/07/23 14:02 Consult to Care Team Routine Comment: Reason for consultation: Psychosis medically ready for discharge DS: Diagnosis Discharge Diagnosis (1) COVID-19: Status: Acute (2) Brain lesion: Status: Acute (3) Acute hyponatremia: Status: Resolved (4) Seizure: Status: Resolved DS: Summary Hospital Course Hospital Course: admission hpi ?57-year-old patient with underlying history of schizoaffective disorder, bipolar, hx hallucinations and multiple psychiatric hospitalizations last being about 4 months ago, had presented from [facility] with complaints of diarrhea and mental status changes. ?He had gone to the above- mentioned facility recently given that he had stopped taking his medications and at the time as usual he was consuming handfuls of vitamins therefore he was transferred to [facility] on June 17, the patient had been refusing all of his medications including carbamazepine, lithium among others.? Reportedly he had complained of constipation yesterday however he was later found to be standing on a pool of liquid stool, when trying to redirect him, he appeared to be confused, disorganized and difficult to following commands.? Is reported that he had an episode of seizure in the ER. He received Ativan x 3 doses. Workup in the emergency room revealed white count 10.7, H&H of 12.3 and 33.7, platelets 244.? Sodium was initially 1 18, potassium 2.9, chloride 90, carbon dioxide 14, random glucose 143, lactic acid 3.9.? Calcium 7.9, magnesium 2.4, CRP 1.03, total protein 5.7, albumin 3.3.? Urine tox screen is negative, carbamazepine level less than 2, lithium level less than 0.10.? Chest x-ray negative, No acute intracranial abnormality. Stable 1.5 cm lobulated focus of calcification within the right aspect of the fourth ventricle. No hydrocephalus. Paranasal sinus mucosal thickening with complete opacification of the right maxillary sinus. I spoke to the patient's brother with states that he has never had seizures before, corroborated other past medical history as above; also states that he knows his brother has not been eating, for the past few days however he also notes that when this happens he tends to drink a lot of water and that often times there will be periods when he stops taking anything by mouth completely other than multivitamins.? Patient otherwise unable to uncertain any questions as he is obtunded perhaps post ictal. Hospital course: 57-year-old with schizoaffective disorder, bipolar disorder on multiple psychotropic medications presented to the ED on 07/03/2025 with diarrhea and alteration of mental status. In ED, noted to have hyponateremia sodium of 118 and had witnessed seizure and he was subsequently admitted to the ICU and given NS, and hypertonic saline, resulting in rapid correction of his sodium. hetested positive for coivd without respiratory symptoms.. He has decompensated Psychosis and refusing care and meds. Acute hypOnatremia--likely related to Tegretol, resolved following NS, hy pertonic saline and later given D5 d/t rapid correction. Tegretol has been on hold Seizure-- related hyponatermia, seen by neuro. No further testing at this time and no need for seizure meds Brain lesion on CT likely meningioma, and not contributary factor to the patient's presentation, will need outpatient follow up Psychosis/Schizophrenia--patient was multiple meds (invega, tegretol, lithim, cogentin, haldol).. Tegretol on hold as above, [place] level was very low and likely was not taking it. We attempted restarting Haldol and Cogentin but he has been refusing all meds. Covid--Assymptomatic--no indication for any specific treatment Time Attestation Discharge coordination time: Greater than 30 minutes Quality: Safe Use of Opioids Does Pt have an Active Cancer Diagnosis on the Problem List?: No Quality: Stroke Does the patient have a stroke diagnosis?: No Physical Exam Vital Signs: Vital Signs: Last Vital Signs Temp 98.3 F 01/18/24 07:31 Pulse 63 07/08/23 07:31 Resp 20 07/08/23 07:31 BP 132/62 07/08/23 07:31 Pulse Ox 95 07/08/23 07:31 O2 Del Method Room Air 07/08/23 07:31 O2 Flow Rate 2 07/05/23 12:00 BMI result Body Mass Index 26.7 Const: Other: General: AO X 2, no acute distress Resp: CTA bilateral CVS: S1,S2,RRR GI: +BS, NT, no distention Skin: No rash Neuro: motor grossly intact Psych: appropriate affect DS: Data Data Completed and Pending Labs on day of discharge: Laboratory Results - last 24 hr 07/08/23 06:35 Sodium 140 Potassium 3.7 Chloride 107 Carbon Dioxide 27 Anion Gap 10 L BUN 11 Creatinine 0.87 Estim Creat Clear Calc 97.3 Estimated GFR > 60 Random Glucose 106 Calcium 8.9 Preliminary micro results at discharge 07/03/23 17:44 Blood Culture - Preliminary Blood - Arterial No growth after 48 hours. 07/03/23 17:01 Blood Culture - Preliminary Blood - Arterial No growth after 48 hours. Discharge Plan Discharge Anticipated Discharge Date/Time: 07/08/23 09:31 Patient Disposition: Xfer Psychiatric Hosp Discharge Diagnosis: HypOnatremia, Seizure decompensated schizophrenia Referrals: Fallon Ruvalcaba CNP [Primary Care Provider] - 1 Week Discharge Medications: Continued haloperidol 5 mg Tablet 10 mg PO BID 30 Days Qty: 120 0RF benztropine 1 mg Tablet 1 mg PO BID 30 Days Qty: 60 0RF Discontinued carbamazepine 200 mg Tablet Extended Release 12 Hr 400 mg PO DAILY 30 Days Qty: 60 0RF carbamazepine 200 mg Tablet Extended Release 12 Hr 600 mg PO BEDTIME 30 Days Qty: 90 0RF Invega Sustenna 234 mg/1.5 mL Syringe 234 mg IM Q30D Qty: 0 0RF lithium carbonate 450 mg Tablet Extended Release 900 mg PO BEDTIME 30 Days Qty: 60 0RF lithium carbonate 600 mg capsule 600 mg PO DAILY 30 Days Qty: 30 0RF No Action lithium carbonate 450 mg tablet extended release 900 mg PO BEDTIME lithium carbonate 300 mg capsule 600 mg PO QAM Invega Sustenna 234 mg/1.5 mL syringe 234 mg IM Q4W Rx Instructions: Med was picked up on 05/18 from [email or web address]. Med was delivered 06/22/2023 to Suzette Lucas from [facility] Discharge Orders: Discharge Order (Routine); Ordered 07/08/23 Ordered By: Khang Galloway Diet: Advance to usual diet Activity on Discharge: As tolerated Stand Alone Forms: Patient Portal Discharge page Care Plan Goals: recovery from acute Psychosis Health Concerns: Decompensated schizophrenia Plan of Treatment: Inpatient Psych treatment Discharge Date/Time: 07/08/23 16:27
[2023-07-08 10:27] LABS: COVID-19 Test Negative (Negative); IDNOW Serial# 08D9AD1C
[2023-07-08 11:29] VITALS: BP 111/56; PULSE 72; RESP 20; TEMP 37; O2SAT 96
--- NOTE | 2023-07-08 12:17 | MHC.CM.PN ---
EMR reviewed and per MD rounds, pt is transferring to inpatient psych bed.
[2023-07-08 15:01] VITALS: BP 122/68; PULSE 72; RESP 20; TEMP 36.8; O2SAT 95
== END 2023-07-08 16:27 | DRG 640 ==
LOC: HO.ED 20:43 → HO.EDOVER 21:03 → HO.ICU 21:27 → HO.IMC 07-06 16:24
PROVIDERS: Internal Medicine; Internal Medicine Critical Care Medicine; Internal Medicine Pulmonary Disease; Admitting Provider Physician Assistant Medical; Emergency Provider Emergency Medicine; PCP Nurse Practitioner Family; Visit Provider Internal Medicine
DX: E87.1 Hypo-osmolality and hyponatremia (principal); G93.41 Metabolic encephalopathy; U07.1 COVID-19; E86.0 Dehydration; E86.1 Hypovolemia; D32.0 Benign neoplasm of cerebral meninges; E87.6 Hypokalemia; T42.1X5A Adverse effect of iminostilbenes, initial encounter; F25.0 Schizoaffective disorder, bipolar type; E83.39 Other disorders of phosphorus metabolism; Z91.148 Patient's other noncompliance with medication regimen for other reason; Z79.899 Other long term (current) drug therapy
CPT/HCPCS: 0241U; 36415; 70450; 71045; 74018; 80048; 80053; 80076; 80143; 80156; 80178; 80179; 80307; 81003; 82040; 82140; 82607; 82746; 82803; 82947; 83605; 83735; 83930; 83935; 84100; 84300; 84443; 84550; 85025; 86140; 87040; 87635; 93005; 94640; 99285; C9113; J0133; J0696; J1644; J1885; J1953; J2060; J2597; J3370; J3475; J3480; S9485

== ENCOUNTER → 2023-07-03 13:48 | Outpatient (BNV) | payer OTHER, SELFPAY | PROVIDERS: Admitting Provider Physician Assistant Medical; Emergency Provider Emergency Medicine; PCP Nurse Practitioner Family; Visit Provider Internal Medicine Cardiovascular Disease | DX: R00.1 Bradycardia, unspecified (principal) | CPT/HCPCS: 93010 ==

== ENCOUNTER → 2023-07-03 20:47 | Outpatient (BNV) | payer OTHER, SELFPAY | PROVIDERS: Admitting Provider Physician Assistant Medical; Emergency Provider Emergency Medicine; PCP Nurse Practitioner Family; Visit Provider Internal Medicine Critical Care Medicine | DX: R56.9 Unspecified convulsions (principal); F25.0 Schizoaffective disorder, bipolar type; E87.1 Hypo-osmolality and hyponatremia | CPT/HCPCS: 99291; 99292; 99499 ==

== ENCOUNTER → 2023-07-03 20:47 | Outpatient (BNV) | payer OTHER, SELFPAY | PROVIDERS: Admitting Provider Physician Assistant Medical; Emergency Provider Emergency Medicine; PCP Nurse Practitioner Family; Visit Provider Psychiatry & Neurology Neurology | DX: R56.9 Unspecified convulsions (principal); G93.9 Disorder of brain, unspecified | CPT/HCPCS: 99222 ==

== ENCOUNTER → 2023-07-03 20:47 | Outpatient (BNV) | payer OTHER, SELFPAY | PROVIDERS: Admitting Provider Physician Assistant Medical; Emergency Provider Emergency Medicine; PCP Nurse Practitioner Family; Visit Provider Internal Medicine Pulmonary Disease | DX: G93.9 Disorder of brain, unspecified (principal); E87.1 Hypo-osmolality and hyponatremia; U07.1 COVID-19; F31.9 Bipolar disorder, unspecified; R56.9 Unspecified convulsions; F25.0 Schizoaffective disorder, bipolar type | CPT/HCPCS: 99232 ==

== ENCOUNTER → 2023-07-03 20:47 | Outpatient (BNV) | payer OTHER, SELFPAY | PROVIDERS: Admitting Provider Physician Assistant Medical; Emergency Provider Emergency Medicine; PCP Nurse Practitioner Family; Visit Provider Psychiatry & Neurology Psychiatry | DX: F25.0 Schizoaffective disorder, bipolar type (principal); U07.1 COVID-19; E87.1 Hypo-osmolality and hyponatremia | CPT/HCPCS: 99221 ==

== ENCOUNTER → 2023-07-03 20:47 | Outpatient (BNV) | payer OTHER, SELFPAY | PROVIDERS: Admitting Provider Physician Assistant Medical; Emergency Provider Emergency Medicine; PCP Nurse Practitioner Family; Visit Provider Internal Medicine | DX: U07.1 COVID-19 (principal); G93.9 Disorder of brain, unspecified; E87.1 Hypo-osmolality and hyponatremia; R56.9 Unspecified convulsions | CPT/HCPCS: 99232; 99239; 99499 ==

== ENCOUNTER 2023-07-08 16:53 | Inpatient (IN) | payer OTHER, SELFPAY ==
--- OUTSIDE RECORDS SUMMARY | 2023-07-08 16:55 | XMS_ITS | Continuity of Care Document ---
Author Name Unknown Organization [facility] Address [address] [place] [address]- Care Team Providers Care Psychological Science Professor Name Role Phone Shola Lopez MD Primary Care Physician [facility]counter [facility] Date(s): 01/28/21 - 02/27/21 [facility] [address] [place] [address]- Allergies, Adverse Reactions, Alerts Substance Reaction Severity Status Stelazine Active Clozaril Active Wellbutrin Active Immunizations Given and Recorded Vaccine Date Status Refusal Reason SARS-CoV-2 (COVID-19) mRNA BNT-162b2 vac 10/15/20 Recorded SARS-CoV-2 (COVID-19) mRNA BNT-162b2 vac 09/23/20 Recorded Influenza Virus Vaccine (oldterm) 04/04/20 Recorde d Influenza Virus Vaccine (oldterm) 1 03/27/09 Given influenza virus vaccine, inactivated 2 04/11/18 Gi rabia influenza virus vaccine, inactivated 04/28/17 Jameson rded influenza virus vaccine, inactivated 04/22/16 Jameson rded influenza virus vaccine, inactivated 3 03/11/15 Gi rabia influenza virus vaccine, inactivated 4 03/12/14 Gi rabia influenza virus vaccine, inactivated 5 03/09/13 Gi rabia influenza virus vaccine, inactivated 6 02/09/10 Gi rabia FluLaval (oldterm) 7 02/16/12 Given Fluvirin (oldterm) 8 02/20/11 Given tetanus/diphtheria/pertussis, acel(Tdap) 9 10/23/10 Given influ virus vac, H1N1, inactive(oldterm) 10 06/26/09 Given Influenza Inactive (IM) (oldterm) 04/21/08 Given tetanus-diphtheria toxoids (Td) 06/21/00 [facility] 3Result Comment: [03/13/2015] [place] 4Admin Note: FLUVIRIN TANO 5Admin Note: CHRISTEN 03-06-2013 FLUVIRIN 6Admin Note: given at [facility] 7Admin Note: VIS GIVEN 8Admin Note: GIVEN AT [facility] ON 02-18-11 9Admin Note: VIS given publication 05/08/08 10[facility]: [facility] Medications Wellbutrin SR 100 mg oral tablet, extended release 3 tablet = 300 mg, By Mouth, Daily, 0 Refills, Maintenance, 08/13/11 15:17:37 EST Start Date: 08/13/11 Status: Ordered Zyprexa 20 mg oral tablet 1 tablet = 20 mg, By Mouth, Daily, # 30 tablet, 0 Refills Start Date: 12/28/08 Stop Date: 01/27/09 Status: Ordered Problem List Condition Effective Dates Status Health Status Inform ant Bipolar(Confirmed) Active Obesity(Confirmed) 11/03/12 Active Schizoaffective disorder(Confirmed) Active Social History Social History Type Response Smoking Status Never smoker entered on: 04/18/18 Sex
--- OUTSIDE RECORDS SUMMARY | 2023-07-08 16:55 | XMS_ITS | Continuity of Care Document ---
Author Name Unknown Organization [facility] Address [address] [place] [address]- Care Team Providers Care Ice Cream Freezer Name Role Phone Jordon HENDRICKS, Fallon Markham Primary Care Physician [phone] Encounter [facility] Date(s): 04/05/23 - 05/05/23 [facility] Adult [address] [place] [address]- Allergies, Adverse Reactions, Alerts Substance Reaction Severity Status Stelazine Active Clozaril Active Wellbutrin Active Immunizations Given and Recorded Vaccine Date Status Refusal Reason influenza virus vaccine, inactivated 03/22/23 Jameson rded influenza virus vaccine, inactivated 03/14/22 Jameson rded influenza virus vaccine, inactivated 03/13/21 Jameson rded influenza virus vaccine, inactivated 03/02/20 Jameson rded influenza virus vaccine, inactivated 1 04/11/18 Gi rabia influenza virus vaccine, inactivated 03/31/18 Jameson rded influenza virus vaccine, inactivated 04/28/17 Jameson rded influenza virus vaccine, inactivated 04/22/16 Jameson rded influenza virus vaccine, inactivated 2 03/11/15 Gi rabia influenza virus vaccine, inactivated 3 03/12/14 Gi rabia influenza virus vaccine, inactivated 4 03/09/13 Gi rabia influenza virus vaccine, inactivated 03/06/13 Jameson rded influenza virus vaccine, inactivated 02/18/11 Jameson rded influenza virus vaccine, inactivated 02/09/10 Gi rabia tetanus/diphtheria/pertussis, acel(Tdap) 12/14/22 Recorded tetanus/diphtheria/pertussis, acel(Tdap) 6 10/23/10 Given tetanus-diphtheria toxoids (Td) 08/11/22 Given tetanus-diphtheria toxoids (Td) 06/21/00 Given [id number] 12y+ bivalent booster vax 9/24/22 Recorded SARS-CoV-2 (COVID-19) mRNA BNT-162b2 vac 04/21/21 Recorded SARS-CoV-2 (COVID-19) mRNA BNT-162b2 vac 10/15/20 Recorded SARS-CoV-2 (COVID-19) mRNA BNT-162b2 vac 09/23/20 Recorded Influenza Virus Vaccine (oldterm) 04/04/20 Recorde d Influenza Virus Vaccine (oldterm) 7 03/27/09 Given FluLaval (oldterm) 8 02/16/12 Given Fluvirin (oldterm) 9 02/20/11 Given influ virus vac, H1N1, inactive(oldterm) 10 06/26/09 Given Influenza Inactive (IM) (oldterm) 04/21/08 Given 1Admin Note: Susy 2Result Comment: [03/13/2015] [facility] 3Admin Note: FLUVIRIN ZEBPYOTES 4Admin Note: CHRISTEN 03-06-2013 FLUVIRIN 5Admin Note: given at [facility] 6Admin Note: VIS given publication 05/08/08 7[facility] 8Admin Note: VIS GIVEN 9Admin Note: GIVEN AT [facility] ON 02-18-11 10Admin Note: [facility] Medications Benztropine = 1 mg, 2 times a day, 0 Refills, Maintenance, 04/15/23 10:58:00 EDT, Partial fill upon patient request if the prescription is for a schedule II opioid drug. Start Date: 04/15/23 Status: Ordered carbamazepine 200 mg oral capsule, extended release 1 capsule = 200 mg, By Mouth, 2 times a day, 400mg daily +600mg daily, total 1000mg daily, 0 Refills, Maintenance, 04/15/23 11:00:00 EDT, Partial fill upon patient request if the prescription is for a schedule II opioid drug. Start Date: 04/15/23 Status: Ordered haloperidol 10 mg oral tablet 10 mg, 1, tablet, By Mouth, 2 times a day, # 60 tablet, Refills 0, Maintenance, 04/15/23 11:03:00 EDT, Partial fill upon patient request if the prescription is for a schedule II opioid drug. Start Date: 04/15/23 Status: Ordered Invega Sustenna 234 mg/1.5 mL intramuscular suspension, extended release = 234 mg, Intramuscular, Every 28 days, 0 Refills, Maintenance, 04/15/23 11:46:00 EDT, Partial fillupon patient request if the prescription is for a schedule II opioid drug. Start Date: 04/15/23 Status: Ordered lithium 450 mg oral tablet, extended release 2 tablet = 900 mg, By Mouth, Daily at bedtime, 0 Refills, Maintenance, 08/11/22 8:32:00 EST, Partial fill upon patient request if the prescription is for a schedule II opioid drug. Start Date: 08/11/22 Status: Ordered lithium 600 mg oral capsule 1 capsule = 600 mg, By Mouth, Daily in AM, 0 Refills, Maintenance, 08/11/22 8:34:00 EST, Partial fill upon patient request if the prescription is for a schedule II opioid drug. Start Date: 08/11/22 Status: Ordered Metamucil 3.4 gm/5.2 gm oral powder for reconstitution = 3.4 Gm, By Mouth, Daily, 0 Refills, Maintenance, 04/15/23 11:02:00 EDT, Partial fill upon patientrequest if the prescription is for a schedule II opioid drug. Start Date: 04/15/23 Status: Ordered Problem List Condition Confirmation Course Effective Dates Status H ealth Status Informant Bipolar Confirmed Active Obesity Confirmed 11/03/12 Active Schizoaffective disorder- bipolar type Confirmed Active Social History Social History Type Response Smoking Status Never smoker entered on: 04/18/18 Sex Patient Care team information Care Team Personnel Name: Fallon Rvualcaba NP Position: S PCO Associate Professional Member Role: PCP Address: Address: [address] [place] [id number]- Care Team Related Persons Name: CARLOS SUMNER Address: home [facility] Name: STEFANIE LAMAR Address: home [address] [place] [id number] Name: ANYA LMAAR
--- OUTSIDE RECORDS SUMMARY | 2023-07-08 16:55 | XMS_ITS | Continuity of Care Document ---
Author Name Unknown Organization [facility] Address [address] [place] [address]- Care Team Providers Care [place] Name Role Phone Ruvalcaba RUTHIE, Fallon Markham Primary Care Physician [phone] Encounter [facility] Date(s): 05/28/22 - 06/27/22 [facility] Adult [address] [place] [address]- Attending Physician: Admtr, Ar8 Admitting Physician: Admtr, Ar8 Referring Physician: Admtr, Ar8 Allergies, Adverse Reactions, Alerts Substance Reaction Severity Status Stelazine Active Clozaril Active Wellbutrin Active Immunizations Given and Recorded Vaccine Date Status Refusal Reason SARS-CoV-2 (COVID-19) mRNA BNT-162b2 vac 04/21/21 Recorded SARS-CoV-2 (COVID-19) mRNA BNT-162b2 vac 10/15/20 Recorded SARS-CoV-2 (COVID-19) mRNA BNT-162b2 vac 09/23/20 Recorded influenza virus vaccine, inactivated 03/13/21 Jameson rded [...] 02/18/11 Jameson rded influenza virus vaccine, inactivated 5 02/09/10 Gi rabia Influenza Virus Vaccine (oldterm) 04/04/20 Recorde d Influenza Virus Vaccine (oldterm) 6 03/27/09 Given FluLaval (oldterm) 7 02/16/12 Given Fluvirin (oldterm) 8 02/20/11 Given tetanus/diphtheria/pertussis, acel(Tdap) 9 10/23/10 Given influ virus vac, H1N1, inactive(oldterm) 10 06/26/09 Given Influenza Inactive (IM) (oldterm) 04/21/08 Given tetanus-diphtheria toxoids (Td) 06/21/00 Given 1Admin Note: [facility] 2Result Comment: [03/13/2015] [facility] 3Admin Note: FLUVIRIN [facility] 4Admin Note: [facility] 03-06-2013 FLUVIR[facility] 6[facility] 7Admin Note: VIS GIVEN 8Admin Note: GIVEN AT [facility] ON 02-18-11 9Admin Note: VIS given publication 05/08/08 10[facility] Wellbutrin SR 100 mg oral tablet, extended release 3 tablet = 300 mg, By Mouth, Daily, 0 Refills, Maintenance, 08/13/11 15:17:37 EST Start Date: 08/13/11 Status: Ordered Zyprexa 20 mg oral tablet 1 tablet = 20 mg, By Mouth, Daily, # 30 tablet, 0 Refills Start Date: 12/28/08 Stop Date: 01/27/09 Status: Ordered Problem List Condition Confirmation Course Effective Dates Status H ealth Status Informant Bipolar Confirmed Active Obesity Confirmed 11/03/12 Active Schizoaffective disorder Confirmed Active Social History Social History Type Response Smoking Status Never smoker entered on: 04/18/18 Sex Note * Event Display: Non BH Lab Results Authored Date: * Event Display: Non BH Lab Results Authored Date: * Event Display: Non BH Lab Results Authored Date: Patient Care team information Care Team Personnel Name: Fallon Ruvalcaba NP Position: S PCO Associate Professional Member Role: PCP Address: Address: [address] [place] [id number] Care Team Related Persons Name: STEFANIE LAMAR Address: home [address] [facility] [address] Name: ANYA LAMAR
--- OUTSIDE RECORDS SUMMARY | 2023-07-08 16:55 | XMS_ITS | Continuity of Care Document ---
Author Name Unknown Organization [facility] Aden lt Address [address] [place] [address]- Care Team Providers Care Manager Java Name Role Phone Jordon HENDRICKS, Fallon Markham Primary Care Physician [phone] Encounter [facility] [place] Date(s): 11/12/22 - 11/19/22 [facility] Adult [address] [place] [address]- Encounter Diagnosis Medicare annual wellness visit, subsequent(Discharge Diagnosis) - 11/12/22 Schizoaffective disorder(Discharge Diagnosis) - 11/12/22 Attending Physician: Fallon Ruvalcaba NP Referring Physician: Checo Choi MD Allergies, Adverse Reactions, Alerts Substance Reaction Severity Status Stelazine Active Clozaril Active Wellbutrin Active Immunizations Given and Recorded Vaccine Date Status Refusal Reason tetanus-diphtheria toxoids (Td) 08/11/22 Given tetanus-diphtheria toxoids (Td) 06/21/00 Given influenza virus vaccine, inactivated 03/14/22 Jameson rded [...] virus vaccine, inactivated 5 02/09/10 Gi rabia [id number] 12y+ bivalent booster vax 03/14/22 Recorded SARS-CoV-2 (COVID-19) mRNA BNT-162b2 vac 04/21/21 [...] Given 1Admin Note: Susy 2Result Comment: [03/13/2015] AfsanehS 3Admin Note: FLUVIRIN SUSY 4Admin Note: AFSANEH 03-06-2013 FLUVIRIN 5Admin Note: given at [facility] 6Admin Note: [facility] 7Admin Note: VIS GIVEN 8Admin Note: GIVEN AT [facility] ON 02-18-11 9Admin Note: VIS given publication 05/08/08 10Admin Note: SUSY Medications lithium 450 mg oral tablet, extended release [...] opioid drug. Start Date: 08/11/22 Status: Ordered traZODone 50 mg oral tablet 50 mg, 1, tablet, By Mouth, Daily at bedtime, PRN, Refills 0, Maintenance, Sleep, 08/11/22 8:29:00 EST, Partial fill upon patient request if the prescription is for a schedule II opioid drug. Start Date: 08/11/22 Status: Ordered Wellbutrin SR 100 mg oral tablet, extended [...] Confirmed 11/03/12 Active Schizoaffective disorder Confirmed Active Diagnosis Diagnosis Type Effective Dates Health Status Clinical Service Informant Medicare annual wellness visit, subsequent Discharge Diagnosis 11/12/22 Schizoaffective disorder Discharge Diagnosis 11/12/22 Vital Signs Most recent to oldest [Reference Range]: 1 Height 188.30 cm (11/12/22 9:43 AM) Weight 96.5 kg (11/12/22 9:43 AM) Oxygen Saturation [94-100 %] 99 % (11/12/22 9:43 AM) Pulse Rate [55-90 bpm] 72 bpm (11/12/22 9:43 AM) Body Mass Index [18.5-24.99 kg/m2] 27.22 kg/m2 *H* (11/12/22 9:43 AM) Blood Pressure [90-138/55-84 mm Hg] 120/ 64mm Hg (11/12/22 9:43 AM) Blood pressure sites Arm, left (11/12/22 9:43 AM) Weight Obtained Via Standing scale (11/12/22 9:43 AM) Social History Social History Type Response Smoking Status Never smoker entered on: 04/18/18 Sex Note * Koki Aggarwal: PERFORM, SIGN, VERIFY Event Display: Patient Education/Instruction Authored Date: [id number] [facility] *HARSHA Manzano Clinical Summary Name OMERO LAMAR Age 57 Years 1965 PCP Jordon HENDRICKS, Fallon Markham PCP Visit Date 11/12/2022 09:36:00 Additional Instructions: Scheduled Appointments?? Future Appointments ?No Future Appointments Scheduled Follow-Up Instructions ?? With: Address: When: Jordon HENDRICKS, Fallon Markham Within 4 months Comments: long appointment please. Diagnosis Encounter for general adult medical examination without abnormal findings; Schizoaffective disorder, unspecified Medications: Please continue your medications until treatment is completed or stopped by your provider. Discuss any questions related to medications with your provider. Medications to Continue with No Changes These medications were not printed or sent to your pharmacy BuPROpion (Wellbutrin SR 100 mg oral tablet, extended release) 3 tab(s) Oral Daily. Next Dose: Wewahitchka (lithium 450 mg oral tablet, extended release) 2 tab(s) Oral Daily at Bedtime. Next Dose: [place]wahitchka (lithium 600 mg oral capsule) 1 capsule Oral Daily in the morning. Next Dose: Olanzapine (Zyprexa 20 mg oral tablet) 1 tab(s) Oral Daily. Refills: 0. Next Dose: Trazodone (traZODone 50 mg oral tablet) 1 tab(s) Oral Daily at Bedtime as needed Sleep. Next Dose: Allergy Info:?? Wellbutrin; Clozaril; Stelazine Medications Given This Visit Future Orders ?No future orders Vital Signs Height 188.30 cm Weight 96.5 kg BMI 27.22 kg/m2 Blood Pressure 120 mm Hg/64 mm Hg Temperature Pulse Rate 72 bpm Respiratory Rate 02 Sat Mode of Delivery 99 %/ You can now view a summary of your hospital visit from the comfort of your home through a free online portal called [employer] is a website that allows you to securely view your medical information including discharge summary, medications and follow-up visits. ??You can alsosend a secure electronic message to your doctor???s office to request appointments, renew medications or just ask a question. You can enroll at [email or web address] or register during your next office visit. Disclaimer:?? The information provided is of a general nature and is intended to be used in conjunction with the recommendations and advice of your health care practitioner. ??Every effort has been made to ensure that the information provided is accurate and complete at the time it is provided to you however, as your needs change, or, as new ??information becomes available, different or additional instructions may be required. If you have questions, please consult with your primary care provider or pharmacist, as appropriate. ??This information is not intended to serve as substitution for assessment and evaluation by a qualified health care provider. If you do not have a primary care provider, you may find a [facility] provider by calling [facility] MySiteApp at [phone]. For information about the plan of care including goals and instructions for your diagnosis, please see the patient education orders section of this document. Patient Education Materials?? The content of this educational material or handout may have been modified, supplemented, or adapted from its original content and format to support your individualized medical care. Patient Care team information Care Team Personnel Name: Fallon Ruvalcaba NP Position: S PCO Associate Professional Member Role: PCP Address: Address: [address] [place] [address]- Care Team Related Persons Name: CARLOS SUMNER Address: home [facility] Name: STEFANIE LAMAR Address: home [address] [place] [address] Name: ANYA LAMAR
--- OUTSIDE RECORDS SUMMARY | 2023-07-08 16:55 | XMS_ITS | Continuity of Care Document ---
Author Name Unknown Organization [facility] Aden lt Address [address] [place] [address]- Care Team Providers Care Town Marshal Name Role Phone Ruvalcaba Fallon HENDRICKS Primary Care Physician [place] [facility] [place] 11/25/21 - 12/02/21 [facility] Adult [address] [place] [address]- Encounter Diagnosis Schizoaffective disorder(Discharge Diagnosis) - 11/25/21 Attending Physician: Not on Staff, Attending MD Allergies, Adverse Reactions, Alerts Substance Reaction [...] tetanus-diphtheria toxoids (Td) 06/21/00 Given 1Admin Note: [facility] 2Result Comment: [03/13/2015] [facility] 3Admin Note: [facility]IN [facility] 4Admin Note: [place] 03-06-2013 FLUVIRIN 5Admin Note: given at [facility] 7Admin Note: VIS GIVEN 8Admin Note: GIVEN AT [facility] ON 02-18-11 9Admin Note: VIS given publication 05/08/08 10Admin Note: [facility] Medications Wellbutrin SR 100 mg oral tablet, [...] Active Obesity(Confirmed) 11/03/12 Active Schizoaffective disorder(Confirmed) Active Diagnosis Diagnosis Type Effective Dates Health Status Clinical Service Informant Schizoaffective disorder Discharge Diagnosis 11/25/21 Vital Signs Most recent to oldest [Reference Range]: 1 Height 188.30 cm (11/25/21 8:26 AM) Weight 92.2 kg (11/25/21 8:26 AM) Oxygen Saturation [94-100 %] 98 % (11/25/21 8:26 AM) Pulse Rate [55-90 bpm] 83 bpm (11/25/21 8:26 AM) Body Mass Index [18.5-24.99] 26 *H* (11/25/21 8:26 AM) Blood Pressure [90-138/55-84 mm Hg] 110/ 65mm Hg (11/25/21 8:26 AM) Blood pressure sites Arm, left (11/25/21 8:26 AM) Weight Obtained Via Standing scale (11/25/21 8:26 AM) Social History Social History Type Response Smoking Status Never smoker entered on: 04/18/18 Sex
--- OUTSIDE RECORDS SUMMARY | 2023-07-08 16:55 | XMS_ITS | Continuity of Care Document ---
Author Name Unknown Organization [facility] Aden lt Address [address] [place] [address]- Care Team Providers Care Community Health Director Name Role Phone Shola Lopez MD Primary Care Physician Encounter [facility] [place] Date(s): 08/30/20 - 09/06/20 [facility] Adult [address] [place] [address]- Encounter Diagnosis Low back pain(Discharge Diagnosis) - 08/30/20 Attending Physician: Shola Lopez MD Referring Physician: Tonia CAFETERIA CASHIERJessica Allergies, Adverse Reactions, Alerts Substance Reaction Severity Status Stelazine Active Clozaril Active Wellbutrin Active Immunizations Given and Recorded Vaccine Date Status Refusal Reason Influenza Virus Vaccine (oldterm) 04/04/20 Recorde d [...] tetanus-diphtheria toxoids (Td) 06/21/00 Given 1Admin Note: susy 2Admin Note: Susy 3Result Comment: [03/13/2015] [facility] 4Admin Note: FLUVIRIN [facility] 5Admin Note: [facility] 03-06-2013 FLUVIRIN 6Admin Note: given at [facility] 7Admin Note: VIS GIVEN 8Admin Note: GIVEN AT [facility] ON 02-18-11 9Admin Note: VIS given publication 05/08/08 10Admin Note: [facility] Medications Wellbutrin SR 100 mg oral tablet, extended release 1 tablet = 100 mg, By Mouth, Daily, 0 Refills, Maintenance Start Date: 08/13/11 Status: Ordered Zyprexa 20 mg oral tablet 1 tablet = 20 mg, By Mouth, Daily, # 30 tablet, 0 Refills Start Date: 12/28/08 Stop Date: 01/27/09 Status: Ordered Problem List Condition Effective Dates Status Health Status Inform ant Bipolar(Confirmed) Active Obesity(Confirmed) 11/03/12 Active Schizoaffective disorder(Confirmed) Active Diagnosis Diagnosis Type Effective Dates Health Status Cl inical Service Informant Low back pain Discharge Diagnosis 08/30/20 Vital Signs Most recent to oldest [Reference Range]: 1 Height 188.30 cm (08/30/20 8:34 AM) Weight 104.5 kg (08/30/20 8:34 AM) Body Mass Index [18.5-24.99] 29.47 *H* (08/30/20 8:34 AM) Social History Social History Type Response Smoking Status Never smoker entered on: 04/18/18 Sex
--- OUTSIDE RECORDS SUMMARY | 2023-07-08 16:55 | XMS_ITS | Continuity of Care Document ---
Author Name Unknown Organization [facility] Aden lt Address [address] [place] [address]- Care Team Providers Care Outcome Analyst Name Role Phone Jordon HENDRICKS, Fallon Markham Primary Care Physician [place] [facility] [place]/22 [facility] Adult [address] [place] [address]- Attending Physician: Fallon Ruvalcaba NP Referring Physician: Jimbo FOSTER, Checo Loving Allergies, Adverse Reactions, Alerts Substance Reaction Severity [...] tetanus-diphtheria toxoids (Td) 06/21/00 Given 1Admin Note: [facility] 2Result Comment: [03/13/2015] [facility] 3Admin Note: FL[facility]IRIN [place] 4Admin Note: [facility] 03-06-2013 FLUVIRIN 5Admin Note: given at [facility] 6Admin Note: [facility] 7Admin Note: VIS GIVEN 8Admin Note: GIVEN AT [facility] ON 02-18-11 9Admin Note: VIS given publication 05/08/08 10Admin Note: [facility] Medications Wellbutrin SR 100 mg oral [...] Team Personnel Name: Fallon Ruvalcaba NP Position: [facility] PCO Associate Professional Member Role: PCP Address: Address: [address] [place] [address]- Care Team Related Persons Name: STEFANIE LAMAR Address: home [address] [place] [address] Name: ANYA LAMAR
--- OUTSIDE RECORDS SUMMARY | 2023-07-08 16:55 | XMS_ITS | Continuity of Care Document ---
Author Name Unknown Organization [facility] Aden lt Address [address] [place] [address]- Care Team Providers Care Environmental Air Specialist Name Role Phone Shola Lopez MD Primary Care Physician Encounter [facility] [place] Date(s): 11/15/20 - 12/29/20 [facility] Adult [address] [place] [address]- Attending Physician: Not on Staff, Attending MD [...] susy 2Admin Note: Susy 3Result Comment: [03/13/2015] Susy 4Admin Note: FLUVIRIN ZEBPAHRUMPKashif 5Admin Note: ZEBANTHONY 03-06-2013 FLUVIRIN 6Admin Note: given at [facility] 7Admin Note: VIS GIVEN 8Admin Note: GIVEN AT [facility] ON 02-18-11 9Admin Note: VIS given publication 05/08/08 [facility] Medications Wellbutrin SR 100 mg oral [...]
--- OUTSIDE RECORDS SUMMARY | 2023-07-08 16:55 | XMS_ITS | Continuity of Care Document ---
Author Name Unknown Organization [facility] Aden lt Address [address] [place] [address]- Care Team Providers Care Instrument Designer Name Role Phone Ruvalcaba RUTHIE, Fallon Markham Primary Care Physician Encounter [facility] [place] [id number] Date(s): 12/10/22 - 01/16/23 [facility] Adult [address] [place] [address]- Attending Physician: Not on Staff, Attending MD [...] influenza virus vaccine, inactivated 02/09/10 Gi rabia [id number] 12y+ bivalent booster vax 03/14/22 Recorded SARS-CoV-2 [...] Inactive (IM) (oldterm) 04/21/08 Given 1Admin Note: [facility] 2Result Comment: [03/13/2015] [facility] 3Admin Note: [facility]IN [facility] 4[facility] FLUVIRIN 5Admin Note: given at [facility] 6Admin Note: [facility] 7Admin Note: VIS GIVEN 8Admin Note: GIVEN AT [facility] ON 02-18-11 9Admin Note: VIS given publication 05/08/08 10Admin Note: [employer] Medications lithium 450 mg oral tablet, extended [...] Care team information Care Team Personnel Name: Jordon HENDRICKS, Fallon Markham Position: [facility] PCO Associate Professional Member Role: PCP Address: Address: [address] [place] [address]- Care Team Related Persons Name: CARLOS SUMNER Address: home [facility] Name: STEFANIE LAMAR Address: home [address] [place] [address] BHARGAV OLIVERA [address] Name: ANYA LAMAR
--- OUTSIDE RECORDS SUMMARY | 2023-07-08 16:55 | XMS_ITS | Continuity of Care Document ---
Author Name Unknown Organization [facility] Aden lt Address [address] [place] [address]- Care Team Providers Care Horticultural Agent Name Role Phone Shola Lopez MD Primary Care Physician Encounter [facility] Date(s): 08/30/20 - 09/29/20 [facility] Adult [address] [place] [address]- Attending Physician: AdmKaleb cason Admitting Physician: Admtr, Kaleb Referring Physician: Admtr, Ar8 Allergies, Adverse Reactions, [...] 3Result Comment: [03/13/2015] Susy 4Admin Note: FLUVIRIN [facility] 5Admin Note: [facility] 03-06-2013 FLUVIRIN 6Admin Note: given at [facility] 7Admin Note: VIS GIVEN 8Admin Note: GIVEN AT [facility] ON 02-18-11 9Admin Note: VIS given publication 05/08/08 10Admin Note: [facility] Medications Wellbutrin SR 100 mg oral [...]
--- OUTSIDE RECORDS SUMMARY | 2023-07-08 16:56 | XMS_ITS | Continuity of Care Document ---
Author Name Unknown Organization [facility] Aden lt Address [address] [place] [address]- Care Team Providers Care School Bus Driver/Teacher Assistant Name Role Phone Shola Lopez MD Primary Care Physician Encounter [facility] [place] Date(s): 09/20/19 - 09/27/19 [facility] Adult [address] [place] [address]- [facility] Encounter Diagnosis Cough(Discharge Diagnosis) - 09/20/19 Attending Physician: Shola Lopez MD Allergies, Adverse Reactions, Alerts Substance Reaction Severity Status Stelazine Active Clozaril Active Wellbutrin Active Immunizations Given and Recorded Vaccine Date Status Refusal Reason influenza virus vaccine, inactivated 1 04/11/18 Gi rabia influenza virus vaccine, inactivated 04/28/17 Jameson rded influenza virus vaccine, inactivated 04/22/16 Jameson rded influenza virus vaccine, inactivated 2 03/11/15 Gi rabia influenza virus vaccine, inactivated 3 03/12/14 Gi rabia influenza virus vaccine, inactivated 4 03/09/13 Gi rabia influenza virus vaccine, inactivated 5 02/09/10 Gi rabia FluLaval (oldterm) 6 02/16/12 Given Fluvirin (oldterm) 7 02/20/11 Given tetanus/diphtheria/pertussis, acel(Tdap) 8 10/23/10 Given influ virus vac, H1N1, inactive(oldterm) 9 06/26/09 Given Influenza Virus Vaccine (oldterm) 10 03/27/09 Give n Influenza Inactive (IM) (oldterm) 04/21/08 Given tetanus-diphtheria toxoids (Td) 06/21/00 Given 1Admin Note: Susy 2Result Comment: [03/13/2015] Susy 3Admin Note: FLUVIRIN ZEBGRANTHONYS 4Admin Note: CHRISTEN 03-06-2013 FLUVIRIN 5Admin Note: given at [facility] 6Admin Note: VIS GIVEN 7Admin Note: GIVEN AT [facility] ON 02-18-11 8Admin Note: VIS given publication 05/08/08 9Admin Note: [facility] 10Admin Note: [facility] Medications Wellbutrin SR 100 mg oral tablet, [...] Diagnosis Diagnosis Type Effective Dates Health Status Clini sanna Service Informant Cough Discharge Diagnosis 09/20/19 Social History Social History Type Response Smoking Status Never smoker entered on: 04/18/18 Sex
--- OUTSIDE RECORDS SUMMARY | 2023-07-08 16:56 | XMS_ITS | Continuity of Care Document ---
Author Name Unknown Organization [facility] Aden lt Address [address] [place] [address]- Care Team Providers Care E Business Specialist Name Role Phone Shola Lopez MD Primary Care Physician [phone] Encounter [facility] Date(s): 06/22/19 - 10/20/19 [facility] [place] Adult [address] [place] [address]- [facility] Attending Physician: Shola Lopez MD Allergies, Adverse [...] Given 1Admin Note: Susy 2Result Comment: [03/13/2015] [facility] 3Admin Note: [facility] 4Admin Note: ZEBGRANTHONY 03-06-2013 FLUVIRIN 5Admin Note: given at [facility] 6Admin Note: VIS GIVEN 7Admin Note: GIVEN AT [facility] 02-18-11 8Admin Note: VIS given publication 05/08/08 9Admin Note: [facility] 10Admin Note: [facility] Medications Wellbutrin SR 100 mg oral [...]
--- OUTSIDE RECORDS SUMMARY | 2023-07-08 16:56 | XMS_ITS | Continuity of Care Document ---
Author Name Unknown Organization [facility] Aden lt Address [address] [place] [address]- Care Team Providers Care Lead Cargoman Name Role Phone Shola Lopez MD Primary Care Physician En[place] [facility] [place] Date(s): 09/04/19 - 10/04/19 [facility] Adult [address] [place] [address]- [facility] Attending Physician: Shola Lopez MD Allergies, [...] [facility] 3Admin Note: [facility] 4Admin Note: CH[facility]ST[facility] 03-06-2013 FLUVIRIN 5Admin Note: given at [facility] 6Admin Note: VIS GIVEN 7Admin Note: GIVEN AT [facility] ON 02-18-11 8Admin Note: VIS given publication 05/08/08 9Admin Note: [facility] 10Admin Note: [facility] Medications Wellbutrin SR 100 mg oral [...]
--- OUTSIDE RECORDS SUMMARY | 2023-07-08 16:56 | XMS_ITS | Continuity of Care Document ---
Author Name Unknown Organization [facility] Aden lt Address [address] [place] [address]- Care Team Providers Care Format Proofreader Name Role Phone Shola Lopez MD Primary Care Physician Encounter [facility] [place] Date(s): 11/15/20 - 11/22/20 [facility] Adult [address] [place] [address]- Encounter Diagnosis Pressure in head(Discharge Diagnosis) - 11/15/20 Attending Physician: Not on Staff, Attending MD Referring Physician: Shola Lopez MD Allergies, Adverse Reactions, [...] tetanus-diphtheria toxoids (Td) 06/21/00 [facility] 2Admin Note: Susy 3Result Comment: [03/13/2015] [facility] 4Admin Note: FLUVIRIN [facility] 5Admin Note: [facility] 03-06-2013 FLUVIRIN 6Admin Note: given at [facility] 7Admin Note: VIS GIVEN 8Admin Note: GIVEN AT [facility] 02-18-11 9Admin Note: VIS given publication 05/08/08 10Admin Note: [facility] Medications Wellbutrin SR 100 mg oral [...] Dates Health Status Cl inical Service Informant Pressure in head Discharge Diagnosis 11/15/20 Vital Signs Most recent to oldest [Reference Range]: 1 Height 188.30 cm (11/15/20 10:47 AM) Social History Social History Type Response Smoking Status Never smoker entered on: 04/18/18 Sex
--- OUTSIDE RECORDS SUMMARY | 2023-07-08 16:56 | XMS_ITS | Continuity of Care Document ---
Author Name Unknown Organization [facility] Aden lt Address [address] [place] [address]- Care Team Providers Care Gi Tech Name Role Phone Shola Lopez MD Primary Care Physician Encounter [facility] Date(s): 09/20/19 - 09/30/19 [facility] Adult [address] [place] [address]- [facility] Attending Physician: AdmKaleb cason Admitting Physician: Admtr, Ar8 Referring Physician: Admtr, [...] 2Result Comment: [03/13/2015] Susy 3Admin Note: FLUVIRIN SUSY 4Admin Note: CHRISTEN 03-06-2013 FLUVIRIN 5Admin Note: given at [facility] 6Admin Note: VIS GIVEN 7Admin Note: GIVEN AT [facility] ON 02-18-11 8Admin Note: VIS given publication 05/08/08 9Admin Note: [facility] 10Admin Note: [facility] Medications Wellbutrin SR 100 mg oral [...]
--- OUTSIDE RECORDS SUMMARY | 2023-07-08 16:56 | XMS_ITS | Continuity of Care Document ---
Author Name Unknown Organization [facility] Aden lt Address [address] [place] [address]- Care Team Providers Care Teaching Pastor Name Role Phone Shola Lopez MD Primary Care Physician [phone] Encounter [facility] Date(s): 05/29/21 - 06/28/21 [facility] Adult [address] [place] [address]- Allergies, Adverse Reactions, Alerts Substance Reaction Severity [...] 06/21/00 Given 1Admin Note: [facility] 2Admin Note: Susy 3Result Comment: [03/13/2015] Susy 4Admin Note: FLUVIRIN ZEBMORRISTOWNKashif 5Admin Note: ZEBANTHONY 03-06-2013 FLUVIRIN 6Admin Note: given at [facility] 7Admin Note: VIS GIVEN 8Admin Note: GIVEN AT [facility] ON 02-18-11 9Admin Note: VIS given publication 05/08/08 10[facility] Medications Wellbutrin SR 100 mg oral [...]
--- OUTSIDE RECORDS SUMMARY | 2023-07-08 16:56 | XMS_ITS | Continuity of Care Document ---
Author Name Unknown Organization [facility] Aden lt Address [address] [place] [address]- Care Team Providers Care Health Safety Engineer Name Role Phone Jordon HENDRICKS, Fallon Markham Primary Care Physician [facility] [place] Date(s): 10/27/22 - 11/26/22 [facility] Adult [address] [place] [address]- Allergies, Adverse Reactions, Alerts Substance Reaction Severity [...] influenza virus vaccine, inactivated 02/09/10 Gi rabia [id number] 12y+ bivalent booster vax 03/14/22 Recorded SARS-CoV-2 [...] Inactive (IM) (oldterm) 04/21/08 Given 1Admin Note: [employer] 2Result Comment: [03/13/2015] [facility] 3Admin Note: [facility] 4[facility] FLUVIRIN 5Admin Note: given at [facility] 6Admin Note: [facility] 7Admin Note: VIS GIVEN 8Admin Note: GIVEN AT [facility] ON 02-18-11 9Admin Note: VIS given publication 05/08/08 10Admin Note: [employer] Medications lithium 450 mg oral tablet, extended [...] Team Personnel Name: Fallon Ruvalcaba NP Position: [facility] PCO Associate Professional Member Role: PCP Address: Address: [address] [place] [address]- Care Team Related Persons Name: CARLOS SUMNER Address: home [facility] UM Name: STEFANIE LAMAR Address: home [address] [place] [address] Name: ANYA LAMAR
--- OUTSIDE RECORDS SUMMARY | 2023-07-08 16:56 | XMS_ITS | Continuity of Care Document ---
Author Name Unknown Organization [facility] Aden lt Address [address] [place] [address]- Care Team Providers Care Exhaust Emissions Inspector Name Role Phone Shola Lopez MD Primary Care Physician [phone] [place] [facility] [place]12/20 [facility] Adult [address] [place] [address]- Encounter Diagnosis Head pain(Discharge Diagnosis) - 11/05/20 Attending Physician: Shola Lopez MD Allergies, Adverse [...] tetanus-diphtheria toxoids (Td) 06/21/00 [facility] 2Admin Note: Susy 3Result Comment: [03/13/2015] AfsanehS 4Admin Note: FLUVIRIN SUSY 5[facility] FLUVIRIN 6Admin Note: given at [facility] 7Admin Note: VIS GIVEN 8Admin Note: GIVEN AT [facility] ON 02-18-11 9Admin Note: VIS given publication 05/08/08 10Admin Note: [facility] Medications Wellbutrin SR 100 mg oral tablet, [...] Dates Health Status Clini sanna Service Informant Head pain Discharge Diagnosis 11/05/20 Vital Signs Most recent to oldest [Reference Range]: 1 Height 188.30 cm (11/05/20 11:58 AM) Weight 105.4 kg (11/05/20 11:58 AM) Oxygen Saturation [94-100 %] 97 % (11/05/20 11:58 AM) Pulse Rate [55-90 bpm] 88 bpm (11/05/20 11:58 AM) Body Mass Index [18.5-24.99] 29.73 *H* (11/05/20 11:58 AM) Blood Pressure [90-138/55-84 mm Hg] 112/ 68mm Hg (11/05/20 11:58 AM) Temperature [96.8-100.4 DegF] 98.6 DegF (11/05/20 11:58 AM) Mode of Delivery (Oxygen) Room air (11/05/20 11:58 AM) Blood pressure sites Arm, left (11/05/20 11:58 AM) Temperature Route Oral (11/05/20 11:58 AM) Weight Obtained Via Standing scale (11/05/20 11:58 AM) Social History Social History Type Response Smoking Status Never smoker entered on: 04/18/18 Sex
--- OUTSIDE RECORDS SUMMARY | 2023-07-08 16:56 | XMS_ITS | Continuity of Care Document ---
Author Name Unknown Organization [facility] Aden lt Address [address] [place] [address]- Care Team Providers Care Product Development Coordinator Name Role Phone Shola Lopez MD Primary Care Physician Encounter [facility] [place] Date(s): 09/04/19 - 09/11/19 [facility] Adult [address] [place] [address]- [facility] Encounter Diagnosis Ear pain(Discharge Diagnosis) - 09/05/19 Attending Physician: Shola Lopez MD Allergies, Adverse [...] 2Result Comment: [03/13/2015] Susy 3Admin Note: FLUVIRIN ZEBGRPARVIN 4Admin Note: CHRISTEN 03-06-2013 FLUVIRIN 5Admin Note: given at [facility] 6Admin Note: VIS GIVEN 7Admin Note: GIVEN AT [facility] ON 02-18-11 8Admin Note: VIS given publication 05/08/08 9Admin Note: [facility] 10Admin Note: [facility] Medications Wellbutrin SR 100 mg oral [...] Dates Health Status Clini sanna Service Informant Ear pain Discharge Diagnosis 09/05/19 Social History Social History Type Response Smoking Status Never smoker entered on: 04/18/18 Sex
--- OUTSIDE RECORDS SUMMARY | 2023-07-08 16:56 | XMS_ITS | Continuity of Care Document ---
Author Name Unknown Organization [facility] Aden lt Address [address] [place] [address]- Care Team Providers Care Timber Management Specialist Name Role Phone Jordon HENDRICKS, Fallon Markham Primary Care Physician [phone] [place] [facility] [place]22 [place] 04/18/23 [facility] Adult [address] [place] [address]- Attending Physician: Fallon Ruvalcaba NP Referring Physician: [...] 08/11/22 Given tetanus-diphtheria toxoids (Td) 06/21/00 Given [id number] 12y+ bivalent booster vax 03/14/22 Recorded SARS-CoV-2 [...] 2Result Comment: [03/13/2015] AfsanehS 3Admin Note: FLUVIRIN ZEBSAINT PAULKashif 4Admin Note: AFSANEH 03-06-2013 FLUVIRIN 5Admin Note: given at [facility] 6Admin Note: VIS given publication 05/08/08 7Admin Note: afsanehs 8Admin Note: VIS GIVEN 9Admin Note: GIVEN AT [employer] ON 02-18-11 10[facility] Medications Benztropine = 1 mg, 2 times [...] Personnel Name: Jordon HENDRICKS, Fallon Markham Position: [facility] PC[facility] Associate Professional Member Role: PCP Address: Address: [address] [place] [address]- Care Team Related Persons Name: CARLOS SUMNER Address: home PTS PHYCH[facility]OTRIST UM Name: STEFANIE LAMAR Address: home [address] [place] [address] Name: ANYA LAMAR
--- OUTSIDE RECORDS SUMMARY | 2023-07-08 16:56 | XMS_ITS | Continuity of Care Document ---
Author Name Unknown Organization [facility] Aden lt Address [address] [place] [address]- Care Team Providers Care Assistant Store Leader Name Role Phone Shola Lopez MD Primary Care Physician En[place] [facility] [place] Date(s): 11/29/20 - 12/29/20 [facility] Adult [address] [place] [address]- Attending Physician: [id number] Admitting Physician: Admtr, [id number] Referring Physician: Admtr, [...] tetanus-diphtheria toxoids (Td) 06/21/00 Given 1Admin Note: florianparvin 2Admin Note: [facility] 3Result Comment: [03/13/2015] FlorianPARVIN 4Admin Note: [facility] 5Admin Note: [facility] 03-06-2013 FLUVIRIN 6Admin Note: given at [facility] 7Admin Note: VIS GIVEN 8Admin Note: GIVEN AT [facility] ON 02-18-11 9Admin Note: VIS given publication 05/08/08 10Admin Note: [facility] Medications Wellbutrin SR 100 mg oral [...]
--- OUTSIDE RECORDS SUMMARY | 2023-07-08 16:56 | XMS_ITS | Continuity of Care Document ---
Author Name Unknown Organization [facility] Aden lt Address [address] [place] [address]- Care Team Providers Care Brewing Director Name Role Phone Jordon HENDRICKS, Fallon Markham Primary Care Physician [phone] Encounter [facility] [place] Date(s): 08/11/22 - 08/18/22 [facility] Adult [address] [place] [address]- Encounter Diagnosis Schizoaffective disorder(Discharge Diagnosis) - 08/11/22 Obesity(Discharge Diagnosis) - 08/11/22 Attending Physician: Fallon Ruvalcaba NP Allergies, Adverse Reactions, Alerts Substance Reaction Severity [...] virus vaccine, inactivated 5 02/09/10 Gi rabia [id number] 12y+ bivalent booster vax 03/14/22 Recorded SARS-CoV-2 [...] 2Result Comment: [03/13/2015] AfsanehS 3Admin Note: FLUVIRIN AFSANEHS 4Admin Note: AFSANEH 03-06-2013 FLUVIRIN 5Admin Note: given at [employer] 6Admin Note: [facility] 7Admin Note: VIS GIVEN 8Admin Note: GIVEN AT [employer] ON 02-18-11 9Admin Note: VIS given publication 05/08/08 10Admin Note: [facility] Medications lithium 450 mg oral tablet, extended [...] Clinical Service Informant Schizoaffective disorder Discharge Diagnosis 08/11/22 Obesity Discharge Diagnosis 08/11/22 Vital Signs Most recent to oldest [Reference Range]: 1 Height 188.30 cm (08/11/22 8:17 AM) Weight 97.8 kg (08/11/22 8:17 AM) Oxygen Saturation [94-100 %] 99 % (08/11/22 8:17 AM) Pulse Rate [55-90 bpm] 79 bpm (08/11/22 8:17 AM) Body Mass Index [18.5-24.99 kg/m2] 27.58 kg/m2 *H* (08/11/22 8:17 AM) Blood Pressure [90-138/55-84 mm Hg] 106/ 68mm Hg (08/11/22 8:17 AM) Blood pressure sites Arm, right (08/11/22 8:17 AM) Weight Obtained Via Standing scale (08/11/22 8:17 AM) Social History Social History Type Response Smoking Status Never smoker entered on: 04/18/18 Sex Note * Koki Aggarwal: PERFORM, SIGN, VERIFY Event Display: Patient Education/Instruction Authored Date: [id number] [facility] *BMP So Jameson Manzano Clinical Summary Name OMERO LAMAR Age 57 Years 1965 PCP Fallon Ruvalcaba NP PCP Visit Date 08/11/2022 08:10:00 Additional Instructions: Scheduled Appointments?? Future Appointments ?No Future Appointments Scheduled Follow-Up Instructions ?? With: Address: When: Fallon Ruvalcaba NP Within 3 months Comments: CPE or MWV as appropriate Diagnosis Medications: Please continue your medications until treatment is completed or stopped by your provider. Discuss any questions related to medications with your provider. Medications to Continue with No Changes These medications were not printed or sent to your pharmacy BuPROpion (Wellbutrin SR 100 mg oral tablet, extended release) 3 tab(s) Oral Daily. Next Dose: [place] (lithium 450 mg oral tablet, extended release) 2 tab(s) Oral Daily at Bedtime. Next Dose: [place] (lithium 600 mg oral capsule) 1 capsule [...] orders Vital Signs Height 188.30 cm Weight 97.8 kg BMI 27.58 kg/m2 Blood Pressure 106 mm Hg/68 mm Hg Temperature Pulse Rate 79 bpm Respiratory Rate 02 Sat Mode of Delivery 99 %/ You can now view a summary of your hospital visit from the comfort of your home through a free online portal called [employer]. [employer] is a website that allows you to securely view your medical information including discharge summary, medications and follow-up visits. ??You can alsosend a secure electronic message to your doctor???s office to request appointments, renew medications or just ask a question. You can enroll at [email or web address] or register during your next office [...] primary care provider, you may find a [facility] provider by calling [facility] [employer] [facility] at [phone]. For information about the plan of care [...] Associate Professional Member Role: PCP Address: Address: [address] [place] [address]- Care Team Related Persons Name: CARLOS SUMNER Address: home PTS PHYCHIOTRIST UM Name: STEFANIE LAMAR Address: [address] [address] Name: ANYA LAMAR
--- OUTSIDE RECORDS SUMMARY | 2023-07-08 16:56 | XMS_ITS | Continuity of Care Document ---
Author Name Unknown Organization [facility] ter Address [address] [place] [address]- Care Team Providers Care Space And Storage Clerk Name Role Phone Jordon HENDRICKS, Fallon Markham Primary Care Physician [place] [facility] [place] - 06/17/[address] [address]- Encounter Diagnosis Schizoaffective disorder(Final) - 06/16/23 Discharge Disposition: Transfer to [facility] Facility Attending Physician: Arturo Eason MD Admitting Physician: Arturo Eason MD Referring Physician: Not on Staff, Referring MD Allergies, Adverse Reactions, Alerts Substance Reaction [...] virus vaccine, inactivated 5 02/09/10 Gi rabia tetanus/diphtheria/pertussis, acel(Tdap) 12/14/22 Recorded tetanus/diphtheria/pertussis, acel(Tdap) 6 10/23/10 Given tetanus-diphtheria toxoids (Td) 08/11/22 Given tetanus-diphtheria toxoids (Td) 06/21/00 Given [id number] 12y+ bivalent booster vax 03/14/22 Recorded SARS-CoV-2 [...] CHRISTEN 03-06-2013 FLUVIRIN 5Admin Note: given at [facility] 6Admin Note: VIS given publication 05/08/08 7Admin Note: [facility] 8Admin Note: VIS GIVEN 9Admin Note: [facility]11 10Admin Note: [facility] Medications Benztropine = 1 mg, 2 times [...] Condition Confirmation Course Effective Dates Status H ealt Status Informant Bipolar Confirmed Active Obesity Confirmed 11/03/12 Active Schizoaffective disorder- bipolar type Confirmed Active Vital Signs Most recent to oldest [Reference Range]: 1 2 Oxygen Saturation [94-100 %] 99 % (06/16/23 10:43 PM) 100 % (06/16/23 5:27 PM) Pulse Rate [55-90 bpm] 67 bpm (06/16/23 10:43 PM) 61 bpm (06/16/23 5:27 PM) Blood Pressure [90-138/55-84 mm Hg] 142/ 86mm Hg *H* (06/16/23 10:43 PM) 132/80mm Hg (06/16/23 5:27 PM) Respiratory Rate [16-30 br/min] 20 br/mi n (06/16/23 10:43 PM) 18 br/min (06/16/23 5:27 PM) Temperature [96.8-100.4 DegF] 98.1 DegF (06/16/23 10:43 PM) 98.2 DegF (06/16/23 5:27 PM) Mode of Delivery (Oxygen) Room air (06/16/23 10:43 PM) Room air (06/16/23 5:27 PM) Blood pressure sites Arm, right (06/16/23 10:43 PM) Arm, right (06/16/23 5:27 PM) Temperature Route Oral (06/16/23 10:43 PM) Oral (06/16/23 5:27 PM) Social History Social History Type Response Smoking Status Never smoker entered on: 04/18/18 Sex Consult note * Fanny Luu MD: PERFORM Event Display: Consultation Note Authored Date: [id number] Patient: ??OMERO LAMAR ? Age:??57 Years?Sex:??Male?:??1965?? CC: Med management ?? Pt is a 57-year-old male with a history of schizoaffective disorder with bipolar features presents on a section 12 due to concerns for medication noncompliance and worsening hallucinations. ?? Per records,?Patient states that he stopped taking his medications approximately 2 weeks ago because God told him to. ??He states that he is simply following God's orders. ??He denies any self-harm or toxic ingestions. ??He denies any medical complaints. ??Denies any SI or HI. ? Pt has been placed for a psychiatric admission, will defer med management to inpatient team. ?? Patient Care team information Care Team Personnel Name: Fallon Ruvalcaba NP Position: [facility] PCO Associate Professional Member Role: PCP Address: Address: [address] [place] [address]- [place] Name: *[facility], ED Attending Position: [facility] ED Attendings Patient Name: Arturo Eason MD Position: [facility] ED Medicine MD Member Role: Admitting Physician Address: Address: [address] [place] [address]- [place] Care Team Related Persons Name: CARLOS SUMNER Address: home PTS PHYCHIOTRIST UM Name: STEFANIE LAMAR Address: home [address] [place] [address] Name: ANYA LAMAR
--- OUTSIDE RECORDS SUMMARY | 2023-07-08 16:56 | XMS_ITS | Continuity of Care Document ---
Author Name Unknown Organization [facility] Aden lt Address [address] [place] [address]- Care Team Providers Care Facing Baster Jumpbasting Name Role Phone Jordon HENDRICKS, Fallon Markham Primary Care Physician En[place] [facility] [place] Date(s): 04/08/23 - 05/08/23 [facility] Adult [address] [place] [address]- Allergies, Adverse Reactions, Alerts Substance Reaction Severity [...] 08/11/22 Given tetanus-diphtheria toxoids (Td) 06/21/00 Given [id number]-[id number] 12y+ bivalent booster vax 9/24/22 Recorded SARS-CoV-2 [...] 2Result Comment: [03/13/2015] wALALANAS 3Admin Note: FLUVIRIN [facility] 4Admin Note: CHRISTEN 03-06-2013 FLUVIRIN 5Admin Note: given at [facility] 6Admin Note: VIS given publication 05/08/08 7Admin Note: [facility] 8Admin Note: VIS GIVEN 9Admin Note: GIVEN AT [facility] ON 02-18-11 10Admin Note: [facility] Medications Benztropine = 1 mg, 2 times [...] Associate Professional Member Role: PCP Address: Address: [address] [place] [address]- Care Team Related Persons Name: CARLOS SUMNER Address: home PTS PHYCHIOTRIST UM Name: STEFANIE LAMAR Address: home [address] [place] [address] Name: ANYA LAMAR
--- OUTSIDE RECORDS SUMMARY | 2023-07-08 16:56 | XMS_ITS | Continuity of Care Document ---
Author Name Unknown Organization [facility] Aden lt Address [address] [place] [address]- Care Team Providers Care Body Maker Name Role Phone Jordon HENDRICKS, Fallon Markham Primary Care Physician [place] [facility] [place] Date(s): 04/15/23 - 04/22/23 [facility] Adult [address] [place] [address]- Encounter Diagnosis Schizoaffective disorder- bipolar type(Discharge Diagnosis) - 04/15/[address](Discharge Diagnosis) - 04/15/23 Attending Physician: Fallon Ruvalcaba NP Referring Physician: [...] 08/11/22 Given tetanus-diphtheria toxoids (Td) 06/21/00 Given [id number]-[id number] 12y+ bivalent booster vax 03/14/22 Recorded SARS-CoV-2 [...] Given 1Admin Note: Susy 2Result Comment: [03/13/2015] TylerS 3Admin Note: FLUVIRIN SUSY 4Admin Note: TYLER 03-06-2013 FLUVIRIN 5Admin Note: given at [facility] 6Admin Note: VIS given publication 05/08/08 7Admin Note: [facility] 8Admin Note: VIS GIVEN 9Admin Note: GIVEN AT [facility] ON 02-18-11 10Admin [facility] Medications Benztropine = 1 mg, 2 [...] Active Schizoaffective disorder- bipolar type Confirmed Active Diagnosis Diagnosis Type Effective Dates Health Status Clinical Service Informant Schizoaffective disorder- bipolar type Discharge Diagnosis 04/15/[address] Discharge Diagnosis 04/15/23 Vital Signs Most recent to oldest [Reference Range]: 1 Height 188.30 cm (04/15/23 10:52 AM) Weight 95.4 kg (04/15/23 10:52 AM) Oxygen Saturation [94-100 %] 98 % (04/15/23 10:52 AM) Pulse Rate [55-90 bpm] 70 bpm (04/15/23 10:52 AM) Body Mass Index [18.5-24.99 kg/m2] 26.91 kg/m2 *H* (04/15/23 10:52 AM) Blood Pressure [90-138/55-84 mm Hg] 116/ 59mm Hg (04/15/23 10:52 AM) Temperature [96.8-100.4 DegF] 98.7 DegF (04/15/23 10:52 AM) Blood pressure sites Arm, left (04/15/23 10:52 AM) Temperature Route Oral (04/15/23 10:52 AM) Weight Obtained Via Standing scale (04/15/23 10:52 AM) Social History Social History Type Response Smoking Status Never smoker entered on: 04/18/18 Sex Note * Shanon Ojeda: PERFORM, SIGN, VERIFY Event Display: Patient Education/Instruction Authored Date: [id number] [facility] *HARSHA Manzano Clinical Summary Name OMERO LAMAR Age 57 Years 1965 PCP Fallon Ruvalcaba NP PCP Visit Date 04/15/2023 10:42:00 Additional Instructions: Scheduled Appointments?? Future Appointments ?No Future Appointments Scheduled Follow-Up Instructions ?? With: Address: When: Fallon Ruvalcaba NP Within 6 months Comments: CPE/MWV as appropriate when due Diagnosis Medications: Please continue your medications until treatment is completed or stopped by your provider. Discuss any questions related to medications with your provider. Medications to Continue with No Changes These medications were not printed or sent to your pharmacy Benztropine 1 Milligram twice a day. Next Dose: BuPROpion (Wellbutrin SR 100 mg oral tablet, extended release) 3 tab(s) Oral Daily. Next Dose: Carbamazepine (carbamazepine 200 mg oral capsule, extended release) 1 capsule Oral twice a day. Next Dose: Carbamazepine (carBAMazepine 400 mg oral tablet, extended release) 1 tab(s) Oral twice a day. Next Dose: Haloperidol (haloperidol 10 mg oral tablet) 1 tab(s) Oral twice a day. Next Dose: Elrama (lithium 450 mg oral tablet, extended release) 2 tab(s) Oral Daily at Bedtime. Next Dose: Elrama (lithium 600 mg oral capsule) 1 capsule Oral Daily in the morning. Next Dose: Olanzapine (Zyprexa 20 mg oral tablet) 1 tab(s) Oral Daily. Refills: 0. Next Dose: Psyllium (Metamucil 3.4 gm/5.2 gm oral powder for reconstitution) 3.4 gram Oral Daily. Next Dose: Trazodone (traZODone 50 mg oral tablet) 1 tab(s) Oral Daily at Bedtime as needed Sleep. Next Dose: Allergy Info:?? Wellbutrin; Clozaril; Stelazine Medications Given This Visit Future Orders ?No future orders Vital Signs Height 188.30 cm Weight 95.4 kg BMI 26.91 kg/m2 Blood Pressure 116 mm Hg/59 mm Hg Temperature 98.7 DegF Pulse Rate 70 bpm Respiratory Rate 02 Sat Mode of Delivery 98 %/ You can now view a summary of your hospital visit from the comfort of your home through a free online portal called [employer]. [employer] is a website that allows you to securely view your medical information including discharge summary, medications and follow-up visits. ??You can alsosend a secure electronic message to your doctor???s office to request appointments, renew medications or just ask a question. You can enroll at [email or web address] or register during your next office [...] primary care provider, you may find a [facility] provider by calling [facility] [employer] at [phone]. [facility], in keeping with [facility] guidance, no longer requires face masks for staff, patientsor visitors in most situations. Similar to time spent indoors at other locations, there is the chance that you were exposed to respiratory viruses during your time with us (such as flu or COVID-19).? If you develop symptoms concerning for a viral respiratory infection, please seek testing (and treatment if indicated) from your medical provider or home test kit. For information about the plan of care [...] Team Personnel Name: Fallon Ruvalcaba NP Position: [facility] PCO Associate Professional Member Role: PCP Address: Address: [address] [place] [address]- [place] Care Team Related Persons Name: CARLOS SUMNER Address: home PTS PHYCHIOTRIST UM Name: STEFANIE LAMAR Address: [address] [address] Name: ANYA LAMAR
--- OUTSIDE RECORDS SUMMARY | 2023-07-08 16:56 | XMS_ITS | Continuity of Care Document ---
Author Name Unknown Organization [facility] Aden lt Address [address] [place] [address]- Care Team Providers Care Supervisor Power Reactor Name Role Phone Jordon HENDRICKS, Fallon Markham Primary Care Physician Encounter [facility] Date(s): 04/18/23 - 05/18/23 [facility] Adult [address] [place] [address]- Allergies, Adverse Reactions, Alerts Substance Reaction Severity [...] 08/11/22 Given tetanus-diphtheria toxoids (Td) 06/21/00 Given ZCIQ-TzW-0vGMF 12y+ bivalent booster vax 9/24/22 Recorded SARS-CoV-2 [...] 2Result Comment: [03/13/2015] wALALANAS 3Admin Note: FLUVIRIN ZEBDETROITS 4Admin Note: CHRISTEN 03-06-2013 FLUVIRIN 5Admin Note: given at [facility] 6Admin Note: VIS given publication 05/08/08 7Admin Note: [facility] 8Admin Note: VIS GIVEN 9Admin Note: GIVEN AT [facility] ON 02-18-11 10Admin Note: [employer] Medications Benztropine = 1 mg, 2 times [...] Associate Professional Member Role: PCP Address: Address: [address] [place] [address]- Care Team Related Persons Name: CARLOS SUMNER Address: home PTS PHYCHIOTRIST UM Name: STEFANIE LAMAR Address: home [address] [place] [address] Name: ANYA LAMAR
[2023-07-08 17:23] VITALS: BP 115/73; PULSE 80; RESP 20; TEMP 37.1; O2SAT 95
--- NOTE | 2023-07-08 18:02 | PC.ADMIT ---
Pt is a 57 y/o swedish speaking male [place] [facility] [place]. Pt is diagnosed with Schizoaffective d/o and has had several admissions to the unit, last discharged on 04/02/23. Pt was admitted to [facility] on 06/17/23 where he developed diarrhea and severe hyponatremia (118). Pt had a seizure and was transferred to [facility] ICU and then transferred to the [facility]. Pts mood is constricted with a flat affect. Pt appears preoccupied with some thought blocking. Speech is delayed and minimal. Pt has been refusing all medications since being on the medical floors. Pt paranoid he is being poisoned with medications, he reports AH, people talking about him. Pt was calm during admission, but avoident with responses. Pt was cooperative with he skin check.
[2023-07-09 07:35] VITALS: BP 118/72; PULSE 85; RESP 16; TEMP 36.4; O2SAT 95
--- NOTE | 2023-07-09 12:56 | HO.PSYADMNOT ---
HPI Date of Service: 07/09/23 Chief Complaint: Schizophrenia HPI Narrative: per CARE team rodney, pt was transferred to [facility] from [facility] after he had a seizure from potomania-related hyponatremia. he was medically stabilized and referred to in psych for hospitalization, being psychotic. he was originally admitted to [facility] 06/17. per collateral from his GF julian, he was refusing medications at [facility]. eventually he seized and was sent to [facility] ICU on 06/23. he reported AH of god to the CARE team on eval, and CAH to kill himself. CAH were ego dystonic, denied SI. he did say he had been suicidal prior to admission to [facility], however. stated he did not need medications and would continue to refuse them. on interview with and COLTEN Cheung, pt presents as somewhat slowed in his responses, endorsing AH but denying SI. he reports he had stopped his meds and had been overdosing on omega 50 vitamin pills and [particular physical exercises] to try to treat his mental illness. he acknowledged that had not been the right approach, but he also stated he would not take medications, saying they are harmful to him. he reported poor sleep since 05/30 and no sleep last night. he indicated he wanted to be in the hospital for now but wasn't sure what we could do to help him or how long he would need to be here. Past Psychiatric History: -Has OP psych services at [facility], Psychiatrist is Urban Nolasco -Hx of multiple IPLOC -Denies hx of suicide attempts or SIB -Past meds: lamictal, bupropion XL (?makes you numb?), Stelazine (took at age 14, ?burned my skull and my bones?), clozapine (says he had a seizure on higher dose) Medical Evaluation Reviewed: Yes [facility], [facility] Family History: father with depression Social History: -Pt born and raised in [place], has two brothers, mother . -Lives with his gf for over 22 years, not , no children. -Unemployed, has SSDI. In the past he worked at [employer]. -Hx of being in [employer] as young adult Substance History: none Trauma History: -Not discussed Diagnostics Vital Signs (24Hr): Vital Signs - 24 hr 07/08/23 17:23 07/09/23 07:35 Temperature 98.7 F 97.6 F Pulse Rate 80 85 Respiratory Rate 20 16 Blood Pressure 115/73 118/72 Pulse Oximetry 95 95 Oxygen Delivery Method Room Air Room Air Meds/Allergies Meds Home Medications Medication Instructions Recorded Confirmed Type lithium carbonate 300 mg capsule 600 mg PO QAM 07/08/23 07/08/23 History lithium carbonate 450 mg 900 mg PO BEDTIME 07/08/23 07/08/23 History tablet,extended release paliperidone palmitate 234 mg/1.5 234 mg IM Q4W 07/08/23 07/09/23 History mL intramuscular syringe (Invega Sustenna) Allergies Allergies Allergy/AdvReac Type Severity Reaction Status Date / Time bupropion [From Wellbutrin] Allergy Mild CAUSES Verified 12/03/22 00:30 SWOLLEN HEAD tetracycline [Tetracycline] Allergy Mild UNKNOWN Verified 12/03/22 00:30 trifluoperazine Allergy Mild UNKNOWN Verified 12/03/22 00:30 [From Stelazine] clozapine [From Clozaril] AdvReac Mild SEIZURES,NE Verified 12/03/22 00:30 UTROPENIA Mental Status Exam Mental Status Exam Narrative: adequately dressed, disheveled. cooperative. mild PMR. speech flat, monotone. nml amount, decr rate. incr ARTHUR, seemed to be distracted as if attending to stimuli not perceptible to interviewers. thoughts linear and illogical. affect constricted, hypo-intense, non-labile. mood serious. denies SI/HI. endorses AH. denies VH. Assessment & Plan Assessment & Plan (1) Schizoaffective disorder, bipolar type: Status: Acute Code(s): F25.0 - Schizoaffective disorder, bipolar type Plan offer medications. pt stating he will not take them. pt has signed 3-day notice. Patient educated on: medication risk/benefits Reason for continued inpatient stay Substantial Risk for: inability to function and rapid decompensation Statement Statement: I have reviewed the history and physical and performed a pertinent examination on my patient. No changes have occurred unless specified. If the History and Physical was not performed prior to admission, the Hospitalist's service will be consulted for completing the admission physical. Time Spent With Patient Time: Total time managing care of this patient today _75___ minutes.
[2023-07-09 19:43] VITALS: BP 117/66; PULSE 75; RESP 18; TEMP 36.5; O2SAT 98
[2023-07-10 07:35] VITALS: BP 113/70; PULSE 70; RESP 16; TEMP 36.6; O2SAT 97
--- NOTE | 2023-07-10 11:36 | HO.PSYCHPN ---
Subjective Subjective Date of Service: 07/10/23 Reason For Visit: Schizophrenia Subjective Notes: Conditional Voluntary Interim History: Pt slept 4hr. He reports he is good. He reports I always hear voices. He denies SI/HI. He is visible on the unit, social with select peers. no behavioral concerns. Mental Status Exam Mental Status Exam Narrative: adequately dressed, disheveled. cooperative. mild PMR. speech flat, monotone. nml amount, decr rate. incr ARTHUR, seemed to be distracted as if attending to stimuli not perceptible to interviewers. thoughts linear and illogical. affect constricted, hypo-intense, non-labile. mood serious. denies SI/HI. endorses AH. denies VH. Diagnostics Vital Signs (24Hr): Vital Signs - 24 hr 07/09/23 19:43 07/10/23 07:35 Temperature 97.7 F 97.8 F Pulse Rate 75 70 Respiratory Rate 18 16 Blood Pressure 117/66 113/70 Pulse Oximetry 98 97 Oxygen Delivery Method Room Air Room Air Medications Medications Current Medications Acetaminophen (Acetaminophen 325 Mg Tablet) 650 mg PO Q6H PRN PRN Reason: Headache/Pain Mild Scale (1-3) Al Hydroxide/Mg Hydroxide (Magnesium Hydrox/Alum Hydrox 30 Ml Oral.Susp) 30 ml PO Q6H PRN PRN Reason: Heartburn/Nausea Benztropine Mesylate (Benztropine Mesylate 1 Mg Tablet) 1 mg PO BID [facility] Last Admin: 07/10/23 09:13 Dose: Not Given Haloperidol (Haloperidol 5 Mg Tablet) 10 mg PO BID [facility] Last Admin: 07/10/23 09:13 Dose: Not Given Hydroxyzine HCl (Hydroxyzine Hcl 25 Mg Tablet) 25 mg PO Q6H PRN PRN Reason: Anxiety [place] Carbonate ([place] Carbonate Er 450 Mg Tablet.Er) 900 mg PO BEDTIME [facility] Last Admin: 07/09/23 23:00 Dose: Not Given Magnesium Hydroxide (Milk Of Magnesia 30 Ml Oral.Susp) 30 ml PO DAILY PRN PRN Reason: Constipation Trazodone HCl (Trazodone Hcl 50 Mg Tablet) 50 mg PO BEDTIME MRX1 PRN PRN Reason: Insomnia Allergies Allergies Allergy/AdvReac Type Severity Reaction Status Date / Time bupropion [From Wellbutrin] Allergy Mild CAUSES Verified 12/03/22 00:30 SWOLLEN HEAD tetracycline [Tetracycline] Allergy Mild UNKNOWN Verified 12/03/22 00:30 trifluoperazine Allergy Mild UNKNOWN Verified 12/03/22 00:30 [From Stelazine] clozapine [From Clozaril] AdvReac Mild SEIZURES,NE Verified 12/03/22 00:30 UTROPENIA Assessment & Plan Assessment & Plan (1) Schizoaffective disorder, bipolar type: Status: Acute Code(s): F25.0 - Schizoaffective disorder, bipolar type Plan 07/10 not taking medications. fairly stable. Reason for continued inpatient stay Substantial Risk for: inability to function Time Spent With Patient Time: Total time managing care of this patient today ____ minutes.
[2023-07-10 14:56] LABS: Influenza A PCR NEGATIVE (Negative); Influenza B PCR NEGATIVE (Negative); Resp Syncy Virus RNA Qual PCR NEGATIVE (Negative); SARS COV2 PCR INHOUSE NEGATIVE (Negative)
[2023-07-10 19:00] VITALS: BP 120/73; PULSE 85; RESP 18; TEMP 36.7; O2SAT 98
[2023-07-10] MEDS: Milk of Magnesia 30 ML ORAL.SUSP PO (21:04)
[2023-07-10] MEDS: guaiFENesin 200 MG/10 ML 10 ML LIQUID PO (21:54)
[2023-07-11] MEDS: guaiFENesin 200 MG/10 ML 10 ML LIQUID PO ×2 (06:47→21:08)
[2023-07-11 07:10] VITALS: BP 112/65; PULSE 76; RESP 18; TEMP 36.2; O2SAT 99
[2023-07-11 07:45] LABS: Lithium < 0.10 mmol/L (0.60-1.20)
--- NOTE | 2023-07-11 14:25 | HO.PSYCHPN ---
Subjective Subjective Date of Service: 07/11/23 Reason For Visit: Schizophrenia Subjective Notes: Conditional Voluntary and 3 Day Interim History: Pt slept mostl of the night. He reports he is good. He continues to report I always hear voices. He denies SI/HI. He is visible on the unit, social with select peers. no behavioral concerns. Mental Status Exam Mental Status Exam Narrative: adequately dressed, disheveled. cooperative. mild PMR. speech flat, monotone. nml amount, decr rate. incr ARTHUR, seemed to be distracted as if attending to stimuli not perceptible to interviewers. thoughts linear and illogical. affect constricted, hypo-intense, non-labile. mood serious. denies SI/HI. endorses AH. denies VH. Diagnostics Vital Signs (24Hr): Vital Signs - 24 hr 07/10/23 19:00 07/11/23 07:10 Temperature 98.0 F 97.2 F Pulse Rate 85 76 Respiratory Rate 18 18 Blood Pressure 120/73 112/65 Pulse Oximetry 98 99 Oxygen Delivery Method Room Air Room Air Labs Labs: Laboratory Results - last 48 hr 07/10/23 07/11/23 13:35 07:21 [place] < 0.10 L Influenza Type A (PCR) NEGATIVE Influenza Type B (PCR) NEGATIVE RSV RNA Qual (PCR) NEGATIVE SARS-CoV-2 RNA (RT-PCR) NEGATIVE Medications Medications Current Medications Acetaminophen (Acetaminophen 325 Mg Tablet) 650 mg PO Q6H PRN PRN Reason: Headache/Pain Mild Scale (1-3) Al Hydroxide/Mg Hydroxide (Magnesium Hydrox/Alum Hydrox 30 Ml Oral.Susp) 30 ml PO Q6H PRN PRN Reason: Heartburn/Nausea Benztropine Mesylate (Benztropine Mesylate 1 Mg Tablet) 1 mg PO BID [facility] Last Admin: 07/11/23 08:31 Dose: Not Given Guaifenesin (Guaifenesin 200 Mg/10 Ml 10 Ml Liquid) 10 ml PO Q6H PRN PRN Reason: Cough Last Admin: 07/11/23 06:47 Dose: 10 ml Haloperidol (Haloperidol 5 Mg Tablet) 10 mg PO BID [facility] Last Admin: 07/11/23 08:31 Dose: Not Given Hydroxyzine HCl (Hydroxyzine Hcl 25 Mg Tablet) 25 mg PO Q6H PRN PRN Reason: Anxiety [place] Carbonate ([place] Carbonate Er 450 Mg Tablet.Er) 900 mg PO BEDTIME [facility] Last Admin: 07/10/23 20:57 Dose: Not Given Magnesium Hydroxide (Milk Of Magnesia 30 Ml Oral.Susp) 30 ml PO DAILY PRN PRN Reason: Constipation Last Admin: 07/10/23 21:04 Dose: 30 ml Trazodone HCl (Trazodone Hcl 50 Mg Tablet) 50 mg PO BEDTIME MRX1 PRN PRN Reason: Insomnia Allergies Allergies Allergy/AdvReac Type Severity Reaction Status Date / Time bupropion [From Wellbutrin] Allergy Mild CAUSES Verified 12/03/22 00:30 SWOLLEN HEAD tetracycline [Tetracycline] Allergy Mild UNKNOWN Verified 12/03/22 00:30 trifluoperazine Allergy Mild UNKNOWN Verified 12/03/22 00:30 [From Stelazine] clozapine [From Clozaril] AdvReac Mild SEIZURES,NE Verified 12/03/22 00:30 UTROPENIA Assessment & Plan Assessment & Plan (1) Schizoaffective disorder, bipolar type: Status: Acute Code(s): F25.0 - Schizoaffective disorder, bipolar type Plan 07/10 not taking medications. fairly stable. 07/11 declines medications. Reason for continued inpatient stay Substantial Risk for: inability to function Time Spent With Patient Time: Total time managing care of this patient today ____ minutes.
[2023-07-11 19:00] VITALS: BP 138/70; PULSE 69; RESP 16; TEMP 36.2; O2SAT 99
[2023-07-12 07:20] VITALS: BP 112/74; PULSE 76; RESP 16; TEMP 36.5; O2SAT 100
--- NOTE | 2023-07-12 14:26 | HO.PSYCHPN ---
Subjective Subjective Date of Service: 07/12/23 Reason For Visit: Schizophrenia Interim History: calm, cooperative. delays in response. states he cannot use soap in the shower because it interferes with the stelazine and saltpeter withdrawal. he reports he is making progress here slowly getting out of my senility. requests to be fed healthier food. per staff, 3-day notice up 07/14. active, appropriate on the unit. calm, pleasant, cooperative. c/o constipation. slept about 5 hours overnight. Mental Status Exam Mental Status Exam Narrative: dressed in johnnys, disheveled. cooperative. mild PMR. speech flat, monotone. nml amount, decr rate. incr ARTHUR, seemed to be distracted as if attending to stimuli not perceptible to interviewers. thoughts linear and illogical. affect constricted, hypo-intense, non-labile. mood not assessed. no SI/HI/AVH expressed. Diagnostics Vital Signs (24Hr): Vital Signs - 24 hr 07/11/23 19:00 07/12/23 07:20 Temperature 97.1 F 97.7 F Pulse Rate 69 76 Respiratory Rate 16 16 Blood Pressure 138/70 112/74 Pulse Oximetry 99 100 Oxygen Delivery Method Room Air Room Air Labs Labs: Laboratory Results - last 48 hr 07/10/23 07/11/23 13:35 07:21 [place] < 0.10 L Influenza Type A (PCR) NEGATIVE Influenza Type B (PCR) NEGATIVE RSV RNA Qual (PCR) NEGATIVE SARS-CoV-2 RNA (RT-PCR) NEGATIVE Medications Medications Current Medications Acetaminophen (Acetaminophen 325 Mg Tablet) 650 mg PO Q6H PRN PRN Reason: Headache/Pain Mild Scale (1-3) Al Hydroxide/Mg Hydroxide (Magnesium Hydrox/Alum Hydrox 30 Ml Oral.Susp) 30 ml PO Q6H PRN PRN Reason: Heartburn/Nausea Benztropine Mesylate (Benztropine Mesylate 1 Mg Tablet) 1 mg PO BID [facility] Last Admin: 07/12/23 08:18 Dose: Not Given Guaifenesin (Guaifenesin 200 Mg/10 Ml 10 Ml Liquid) 10 ml PO Q6H PRN PRN Reason: Cough Last Admin: 07/11/23 21:08 Dose: 10 ml Haloperidol (Haloperidol 5 Mg Tablet) 10 mg PO BID [facility] Last Admin: 07/12/23 08:18 Dose: Not Given Hydroxyzine HCl (Hydroxyzine Hcl 25 Mg Tablet) 25 mg PO Q6H PRN PRN Reason: Anxiety [place] Carbonate ([place] Carbonate Er 450 Mg Tablet.Er) 900 mg PO BEDTIME [facility] Last Admin: 07/11/23 21:10 Dose: Not Given Magnesium Hydroxide (Milk Of Magnesia 30 Ml Oral.Susp) 30 ml PO DAILY PRN PRN Reason: Constipation Last Admin: 07/10/23 21:04 Dose: 30 ml Trazodone HCl (Trazodone Hcl 50 Mg Tablet) 50 mg PO BEDTIME MRX1 PRN PRN Reason: Insomnia Allergies Allergies Allergy/AdvReac Type Severity Reaction Status Date / Time bupropion [From Wellbutrin] Allergy Mild CAUSES Verified 12/03/22 00:30 SWOLLEN HEAD tetracycline [Tetracycline] Allergy Mild UNKNOWN Verified 12/03/22 00:30 trifluoperazine Allergy Mild UNKNOWN Verified 12/03/22 00:30 [From Stelazine] clozapine [From Clozaril] AdvReac Mild SEIZURES,NE Verified 12/03/22 00:30 UTROPENIA Assessment & Plan Assessment & Plan (1) Schizoaffective disorder, bipolar type: Status: Acute Code(s): F25.0 - Schizoaffective disorder, bipolar type Plan 07/10 not taking medications. fairly stable. 07/11 declines medications. 07/12: refusing medications. no inappropriate behaviors. psychotic. 3-day up 07/14. Reason for continued inpatient stay Substantial Risk for: inability to function and rapid decompensation Time Spent With Patient Time: Total time managing care of this patient today __25__ minutes.
[2023-07-12] MEDS: Milk of Magnesia 30 ML ORAL.SUSP PO (16:11)
[2023-07-12 19:30] VITALS: BP 116/65; PULSE 75; RESP 18; TEMP 36.8; O2SAT 97
[2023-07-13 06:00] VITALS: BP 125/76; PULSE 72; RESP 18; TEMP 36.3; O2SAT 99
--- NOTE | 2023-07-13 14:38 | PM.PSYDC ---
DS: Providers Provider Date of Service: 07/13/23 Date of admission: 07/08/23 16:53 Primary care physician: Unknown Physician DS: Diagnosis Discharge Diagnosis (1) Schizoaffective disorder, bipolar type: Status: Inactive DS: Medications Discharge Medications Home Medications: Home Medications Medication Instructions Recorded Confirmed lithium carbonate 300 mg capsule 600 mg PO QAM 07/08/23 07/08/23 lithium carbonate 450 mg 900 mg PO BEDTIME 07/08/23 07/08/23 tablet,extended release paliperidone palmitate 234 mg/1.5 234 mg IM Q4W 07/08/23 07/09/23 mL intramuscular syringe (Invega Sustenna) Previous Rx's Medication Instructions Recorded benztropine 1 mg tablet 1 mg PO BID 30 days #60 tabs 04/02/23 haloperidol 5 mg tablet 10 mg (2 x 5 mg) PO BID 30 days 04/02/23 #120 tabs Mental Status Exam Mental Status Exam Narrative: dressed in johnnys, disheveled. cooperative. mild PMR. speech flat, monotone. nml amount, decr rate. incr ARTHUR, seemed to be distracted as if attending to stimuli not perceptible to interviewers. thoughts linear and illogical. affect constricted, hypo-intense, non-labile. mood trying to be happy. denies SI/HI/VH. endorses AH and CAH, CAH to suicide and AH of things like, wale's a good jyotsna. Data Data Completed and Pending Completed studies during hospitalization [Text1]: 07/10/23 07/11/23 13:35 07:21 [place] < 0.10 L Influenza Type A (PCR) NEGATIVE Influenza Type B (PCR) NEGATIVE RSV RNA Qual (PCR) NEGATIVE SARS-CoV-2 RNA (RT-PCR) NEGATIVE DS: Summary Hospital Course Hospital Course: per 07/09 admission note: per CARE team rodney pt was [facility] a seizure from potomania-related hyponatremia. he was medically stabilized and referred to in psych for hospitalization, being psychotic. [facility] per collateral from his GF julian, [facility] eventually he seized and was sent to [facility] ICU on 06/23. he reported AH of god to the CARE team on eval, and CAH to kill himself. CAH were ego dystonic, denied SI. he did say he had been suicidal [facility] to [facility], however. stated he did not need medications and would continue to refuse them. on interview with and COLTEN Cheung, pt presents as somewhat slowed in his responses, endorsing AH but denying SI. he reports he had stopped his meds and had been overdosing on omega 50 vitamin pills and [particular physical exercises] to try to treat his mental illness. he acknowledged that had not been the right approach, but he also stated he would not take medications, saying they are harmful to him. he reported poor sleep since 05/30 and no sleep last night. he indicated he wanted to be in the hospital for now but wasn't sure what we could do to help him or how long he would need to be here. Past Psychiatric History: -Has OP psych services at [facility], Psychiatrist is Urban Nolasco -Hx of multiple IPLOC -Denies hx of suicide attempts or SIB -Past meds: lamictal, bupropion XL (?makes you numb?), Stelazine (took at age 14, ?burned my skull and my bones?), clozapine (says he had a seizure on higher dose) Medical Evaluation Reviewed: Yes PMFSH Family History: father with depression Social History: -Pt born and raised in [place], has two brothers, mother . -Lives with his gf for over 22 years, not , no children. -Unemployed, has SSDI. In the past he worked at [employer]. -Hx of being in [employer] as young adult Substance History: none Trauma History: -Not discussed Precis: 07/09: offer medications. pt stating he will not take them. pt has signed 3-day notice. 07/10: not taking medications. fairly stable. 07/11: declines medications. 07/12: refusing medications. no inappropriate behaviors. psychotic. 3-day up 07/14. 07/13: calm, cooperative. remains delusional and with AH and CAH to suicide. says he will not act on the AH, however. asking for discharge, states he will not take medications. 07/14: no change in presentation. deemed not committable, discharged upon expiry of his 3 day notice. Time Spent with Patient Time attestation: Total time managing care of this patient today ____ minutes. Time spent: Greater than 30 minutes Discharge Plan Discharge Anticipated Discharge Date/Time: 07/14/23 10:20 Patient Disposition: Home, Self-Care Discharge Diagnosis: Schizoaffective Disorder, Bipolar Type Referrals: Urban Nolasco (Psychiatry) [Other] - 1 Week (*Please follow up with [facility] regarding your next appointment*) Chapito Santos (Therapy) [Other] - 07/27/23 [facility] [Provider Group] - 1 Week Discharge Medications: Continued haloperidol 5 mg Tablet 10 mg PO BID 30 Days Qty: 120 0RF benztropine 1 mg Tablet 1 mg PO BID 30 Days Qty: 60 0RF lithium carbonate 450 mg tablet extended release 900 mg PO BEDTIME lithium carbonate 300 mg capsule 600 mg PO QAM Invega Sustenna 234 mg/1.5 mL syringe 234 mg IM Q4W Rx Instructions: Med was picked up on 05/18 from [facility]. Med was delivered 06/22/2023 to [facility] from [facility] Discharge Orders: Discharge Order (Routine); Ordered 07/14/23 Ordered By: Eliu Fernandez Diet: Advance to usual diet Activity on Discharge: As tolerated Stand Alone Forms: Patient Portal Discharge page, Community Support Care Plan Goals: remain safe and stable in the outpatient treatment setting Health Concerns: none Plan of Treatment: take medications as prescribed, attend appointments as scheduled Assessment: not at imminent risk of harm to self or others Discharge Date/Time: 07/14/23 11:09
[2023-07-13 19:20] VITALS: BP 123/71; PULSE 85; RESP 16; TEMP 36.7; O2SAT 98
[2023-07-14] MEDS: guaiFENesin 200 MG/10 ML 10 ML LIQUID PO (04:36)
[2023-07-14 06:00] VITALS: BP 121/64; PULSE 70; RESP 16; TEMP 36.9; O2SAT 97
== END 2023-07-14 11:09 | disposition home or self-care (01) | DRG 885 ==
PROVIDERS: Social Worker; Admitting Provider Psychiatry & Neurology Psychiatry; Visit Provider Psychiatry & Neurology Psychiatry
DX: F25.0 Schizoaffective disorder, bipolar type (principal); R45.851 Suicidal ideations; Z20.822 Contact with and (suspected) exposure to COVID-19; Z91.148 Patient's other noncompliance with medication regimen for other reason; Z79.899 Other long term (current) drug therapy
CPT/HCPCS: 0241U; 36415; 80178

== ENCOUNTER → 2023-07-08 16:53 | Outpatient (BNV) | payer OTHER, SELFPAY | PROVIDERS: Admitting Provider Psychiatry & Neurology Psychiatry; Visit Provider Psychiatry & Neurology Psychiatry | DX: F25.0 Schizoaffective disorder, bipolar type (principal) | CPT/HCPCS: 90792; 99231; 99232 ==

== ENCOUNTER 2023-07-18 10:36 | Inpatient (IN) | payer OTHER, SELFPAY ==
[2023-07-18 10:42] VITALS: BP 128/75; BP 130/90; PULSE 90; PULSE 91; RESP 16; TEMP 36.4; O2SAT 95; O2SAT 97; BMI 26.6
--- NOTE | 2023-07-18 11:05 | ED.PSYCH ---
HPI - Psych General Chief Complaint: Psychiatric Symptoms Stated Complaint: behavioral,non med compliant per ems Time Seen by Provider: 07/18/23 10:52 Source: patient and old records reviewed Mode of arrival: EMS Limitations: other (poor historian) History of Present Illness HPI Narrative: 57 yo male with PMH of schizoaffective disorder here with c/o not taking his medications and now having SI he is very vague and states he needs [employer] vitamins to get things out of his head MD complaint: suicidal ideation, feels depressed and other Onset (ago): week(s) Duration: constant History of same: Yes Relieving factors: none Exacerbating factors: other Context: not taking psychiatric medications Associated psychiatric symptoms: depression and suicidal ideation Associated symptoms: denies other symptoms Treatments prior to arrival: none If self harm: admits thoughts of self harm Related Data Home Medications Medication Instructions Recorded Confirmed lithium carbonate 300 mg capsule 600 mg PO QAM 07/08/23 07/08/23 lithium carbonate 450 mg 900 mg PO BEDTIME 07/08/23 07/08/23 tablet,extended release paliperidone palmitate 234 mg/1.5 234 mg IM Q4W 07/08/23 07/09/23 mL intramuscular syringe (Invega Sustenna) Previous Rx's Medication Instructions Recorded benztropine 1 mg tablet 1 mg PO BID 30 days #60 tabs 04/02/23 haloperidol 5 mg tablet 10 mg (2 x 5 mg) PO BID 30 days 04/02/23 #120 tabs Allergies Allergy/AdvReac Type Severity Reaction Status Date / Time bupropion [From Wellbutrin] Allergy Mild CAUSES Verified 12/03/22 00:30 SWOLLEN HEAD tetracycline [Tetracycline] Allergy Mild UNKNOWN Verified 12/03/22 00:30 trifluoperazine Allergy Mild UNKNOWN Verified 12/03/22 00:30 [From Stelazine] clozapine [From Clozaril] AdvReac Mild SEIZURES,NE Verified 12/03/22 00:30 UTROPENIA Review of Systems Review of Systems: Constitutional : No Fever, No Chills ENT/Mouth : No Ear Pain, No Nasal Congestion, No sore throat Eyes: No Eye Pain, No Swelling, No Redness Cardiovascular : No Chest Pain, No SOB Respiratory : No Cough, No Sputum, No Dyspnea Gastrointestinal : No Nausea, No Vomiting, No Diarrhea, No Hematochezia, No Melena Genitourinary : No Dysuria, No Urinary Frequency, No Hematuria Musculoskeletal : No Myalgias Skin : No Skin Lesions, No rash Neuro : No Weakness, No Numbness, No Paresthesias, No Dizziness, No Headache Psych : positive Anxiety, positive Depression, positive SI no HI Heme/Lymph: No Lymphadenopathy Endocrine : No Polyuria, No Polydipsia All other systems reviewed and are negative PMFSH Past Medical History Attestation statement: The following information was validated with the patient. Source: old records reviewed Medical History Schizoaffective disorder, bipolar type Social History Social History Household Members: Significant Other Household Members Other:: father Housing: Apartment Housing Other:: [facility] Do you presently have visiting nurse or other home services: No Unable to assess alcohol history related to: Unable to respond Alcohol intake: unknown Comment: 1:1 sitter Patient Tobacco Use Status: Never used Tobacco Smoked in Last 30 Days: No e-Cigarette/Vaping Use: Never Used Second Hand Smoke Exposure: No Use of substances other than those prescribed or required for medical reasons: No Substance Use Type: Caffiene Advance Directives: No Advance Directives Information Provided: No service: Yes ([place] for 5-6 weeks) Sexual orientation: Straight/Heterosexual Physical Exam Vital Signs: Vital Signs: Last Vital Signs Temp 97.6 F 07/18/23 10:42 Pulse 91 07/18/23 10:42 Resp 14 07/18/23 11:17 BP 128/75 07/18/23 10:42 Pulse Ox 97 07/18/23 10:42 O2 Del Method Room Air 07/18/23 10:42 BMI result Body Mass Index 26.6 Appearance: Alert. Oriented X3. No acute distress. sort of withdrawn then will blurt out information loudly Eyes: Pupils equal, round and reactive to light. ENT: Pharynx normal. Neck: Normal inspection. Neck supple. CVS: Normal heart rate and rhythm. Pulses normal. Respiratory: No respiratory distress. Breath sounds normal. Abdomen: Soft and nontender. Skin: Skin warm and dry. Normal skin color. Normal skin turgor. Extremities: No lower extremity edema. No calf ttp Neuro: Oriented X 3. No motor deficit. No sensory deficit. CN 2-12 intact Course Course Course Narrative: Physician observation started at 1126am. Patient placed in physician observation because the patient needed more time for CARE team to assess the need for psych admission. At the time observation was started the patient's vitals were stable, patient is alert and oriented but slightly agitated/anxious, Neuro: nonfocal, CV RRR, Lungs clear Medical Decision Making Medical Decision Making [facility] Narrative: 57 yo male with schizoaffective disorder here with c/o SI and not taking his medications he mentions he needs vitamins to get his brain straight he has no medical complaints he denies self harm. At this time labs and CARE team consult ordered. Differential Diagnosis Differential Diagnoses: The differential diagnosis associated with the presentation includes schizoaffective disorder, med noncompliance, SI Admission/Observation Consideration of admission/observation: Escalation of care including admission/observation considered Consult Healthcare Provider Management of the patient was discussed with: Behavioral Health Provider Lab Data [facility] Lab Attestation statement: I reviewed the patient's lab results. Labs: Lab Results 07/18/23 Range/Units 11:00 Urine Color Yellow Urine Appearance Clear Urine pH 6.0 (5.0-9.0) Ur Specific [place] 1.020 (1.005-1.025) Urine Protein Negative (Neg-Trace) mg/dL Urine Glucose (UA) Negative (Negative) mg/dL Urine Ketones Trace (Negative) mg/dL Urine Blood Negative (Negative) Urine Nitrite Negative (Negative) Ur Leukocyte Esterase Negative (Negative) Urine Opiates Screen Not Detected (Not Detect) Urine Fentanyl Screen Not Detected (Not Detect) Ur Barbiturates Screen Not Detected (Not Detect) Ur Phencyclidine Scrn Not Detected (Not Detect) Ur Amphetamines Screen Not Detected (Not Detect) U Benzodiazepines Scrn Not Detected (Not Detect) Urine Cocaine Screen Not Detected (Not Detect) U Marijuana (THC) Screen Not Detected (Not Detect) Independent Historian Clinical information obtained from an independent historian. History obtained from or confirmed by: EMS External Record Review External record reviewed: Inpatient record Discharge Plan Discharge Clinical Impression: Schizoaffective disorder Qualifiers: Schizoaffective disorder type: unspecified Qualified Code(s): F25.9 - Schizoaffective disorder, unspecified Patient Disposition: Still a Patient Prescriptions: No Action haloperidol 5 mg Tablet 10 mg PO BID 30 Days Qty: 120 0RF benztropine 1 mg Tablet 1 mg PO BID 30 Days Qty: 60 0RF lithium carbonate 450 mg tablet extended release 900 mg PO BEDTIME lithium carbonate 300 mg capsule 600 mg PO QAM Invega Sustenna 234 mg/1.5 mL syringe 234 mg IM Q4W Rx Instructions: Med was picked up on 05/18 from [facility]. [facility] [place]-Suicide Risk Severity Scale Last Done: 07/18/23 11:16
[2023-07-18 11:07] LABS: Appearance Urine Clear; Color Urine Yellow; Glucose Urine UA Negative (Negative); Leukocyte Esterase Urine Negative (Negative); Nitrite Urine Negative (Negative); Urine Blood Negative (Negative); Urine Ketones Trace mg/dL (Negative); Urine Protein Negative (Neg-Trace)
[2023-07-18 11:17] VITALS: RESP 14
--- NOTE | 2023-07-18 11:17 | PC.NURSE ---
Assumed care of patient at 1045, per pt he walked to [facility] this morning and tried to drop off his medications so he doesn't have to take any of them. Pt reports he has not taken any of his medications since before Decemeber . Pt reports his girlfriend called 911 because she did not want him to go out to [employer]. Pt states I have thoughts of SI, but I know I can't hurt myself, I am Ca[place] . Pt reports he has been on the inpatient psych unit before and is familiar with the process here in the pod. Now resting comfortably on couch in pod, respirations even and unlabored, skin pwd, no apparent distress noted
[2023-07-18 11:18] LABS: Amphetamine Screen Urine Not Detected (Not Detect); Barbiturates, Urine Not Detected (Not Detect); Benzodiazepines Screen Urine Not Detected (Not Detect); Cannabinoid Screen Urine Not Detected (Not Detect); Cocaine Screen Urine Not Detected (Not Detect); Fentanyl, urine Not Detected (Not Detect); Opiate Screen Urine Not Detected (Not Detect); Phencyclidine Screen Urine Not Detected (Not Detect)
[2023-07-18 11:27] LABS: COVID-19 Test Negative (Negative); IDNOW Serial# 9DB6401D
[2023-07-18 12:15] LABS: MANUAL DIFF FLAG NO
[2023-07-18 12:17] LABS: Basophils Absolute Auto 0.1 X10*3/uL (0.0-0.2); Basophils Percent Auto 0.5 % (0-2); Eosinophils Absolute Auto 0.1 X10*3/uL (0.0-0.4); Hematocrit 39.6 % (42.0-52.0); Hemoglobin 13.7 g/dl (14.0-18.0); Imm Gran Abs Auto 0.02 X10*3/uL (0.00-0.03); Imm Gran Pct Auto 0.2 % (0.0-0.4); Lymphocytes Absolute Auto 1.6 X10*3/uL (1.2-4.9); Lymphocytes Percent Auto 16.4 % (20-40); Mean Corpuscular HGB Conc 34.6 g/dl (31.0-36.0); Mean Corpuscular Hemoglobin 31.6 pg (27.0-33.0); Mean Corpuscular Volume 91.2 fL (80.0-98.0); Mean Platelet Volume 10.8 fL (9.4-12.4); Monocytes Absolute Auto 0.5 X10*3/uL (0.1-1.2); Monocytes Percent Auto 5.6 % (2-11); Neutrophils Absolute Auto 7.4 x10*3/uL (2.0-8.3); Neutrophils Percent Auto 76.3 % (45-73); Platelet Count 267 X10*3/uL (160-400); Red Blood Count 4.34 X10*6/uL (4.60-5.80); Red Cell Distribution Width 12.3 % (11.0-16.0); White Blood Count 9.7 X10*3/uL (4.8-10.8)
[2023-07-18 12:30] LABS: Lithium < 0.10 mmol/L (0.60-1.20)
[2023-07-18 12:32] LABS: Alanine Aminotransferase 27 U/L (0-40); Alkaline Phosphatase 46 U/L (39-117); Anion Gap 15 (12-20); Aspartate Amino Transferase 22 U/L (5-37); Bilirubin Direct 0.1 mg/dL (0.0-0.5); Bilirubin Total 0.3 mg/dL (0.0-1.0); Blood Urea Nitrogen 19 mg/dL (9-16); Calcium 9.8 mg/dL (8.4-10.2); Carbon Dioxide 26 mmol/L (22-29); Chloride 105 mmol/L (96-108); Creatinine Clr Calc Pharmacy 78.8; Estimated Glomerular Filt Rate > 60; Glucose Random 92 mg/dL (60-115); Magnesium 2.1 mg/dL (1.6-2.6); Potassium 4.7 mmol/L (3.3-5.1); Sodium 141 mmol/L (135-145); Total Protein 6.9 g/dL (6.5-8.0)
--- NOTE | 2023-07-18 13:40 | PC.NURSE ---
RE: Med Rec This RN completed med rec after conversing with patient and reviewing previous admission information. Pt reports he has not taken his medications since May 30. All medications were last picked up on 2022. Pt was medically admitted to [facility] on July 07 and was discharged a few days ago. Per nursing notes, patient refused all medications. Prior to being medically admitted here, patient was at [facility] where he was reportedly not taking his medications there either (no official documentation to support this). Pt is currently stating he does not want any of his medications as he believes they are prescribed to poison him
[2023-07-18 13:50] VITALS: RESP 16
--- NOTE | 2023-07-18 15:57 | PC.NURSE ---
Pt wrote lengthy note, then requested 20 copies of said note. Pt provided with 5 copies. In summary, the note states that he would like to suffer more than Jason Manjit to overpower the world and his mother will become goddess of the world. Pt became mumbling about the suffering of women in many locations. Pt is resting on couch in [facility] at this time
--- NOTE | 2023-07-18 19:21 | PC.NURSE ---
patient appears to remain at rest at present respirations are even and unlabored patient appears in no distress
[2023-07-19 01:21] VITALS: BP 106/62; PULSE 58; RESP 18; TEMP 36.7; O2SAT 98
--- NOTE | 2023-07-19 08:22 | ECG_ITS ---
Test Reason : QT INTERVAL Blood Pressure : / mmHG Vent. Rate : 054 BPM Atrial Rate : 054 BPM P-R Int : 164 ms QRS Dur : 098 ms QT Int : 462 ms P-R-T Axes : 067 030 035 degrees QTc Int : 438 ms Sinus bradycardia Possible Left atrial enlargement Borderline ECG When compared with ECG of 03-JUL-2023 13:48, Questionable change in QRS duration Borderline criteria for Inferior infarct are no longer Present Referred By: Claire Suh Electronically Signed By:AKOSUA MOROCHO MD
[2023-07-19 10:29] VITALS: BP 109/60; PULSE 62; TEMP 36.6; O2SAT 97
--- NOTE | 2023-07-19 12:38 | PHA.MEDREC ---
Pharmacy Consult ? Medication Reconciliation Pharmacy has reviewed the medication reconciliation completed by Bri. Funmi Manning, DarwinD
[2023-07-19 18:53] VITALS: RESP 18
[2023-07-20 04:02] VITALS: BP 131/78; PULSE 76; RESP 16; TEMP 36.2; O2SAT 98
[2023-07-20 09:44] LABS: COVID-19 Test Negative (Negative); IDNOW Serial# 9DB6401D
[2023-07-20 10:33] VITALS: RESP 18
[2023-07-20 14:11] VITALS: RESP 18
[2023-07-20 15:00] VITALS: BP 142/86; PULSE 88; RESP 16; TEMP 36.6; O2SAT 100
[2023-07-20 18:31] VITALS: BMI 24.1
--- NOTE | 2023-07-20 18:33 | PC.NURSE ---
Addendum entered by Angelica Fuentes RN 07/20/23 18:50: Pt received flu shot on previous admission to 03/2023 Original Note: Eriberto was admitted to at 1455 from [facility] on CV for treatment of psychosis. His CV was accepted and he signed a 3 day notice. Prior to admission Eriberto reports he brought a trash bag of medications to [facility] and stated that the medications would cause an early and he doesn't need them to cure his insanity. Crisis report indicates that patient reported suicidality which he denies. Pt states, My voices say I can kill myself now if I want to but I don't have to. and I don't want to . I want to live a long time. Eriberto is alert, oriented to day, date, time, person and place. Mood is depressed. Affect is subdued. As noted above patient confirms auditory hallucinations. He denies all other hallucinations. He does appear hyperreligious, paranoid and delusional about medications and nutrition. God wants me to be off medications, God says I don't need medicine to be normal Appetite is poor and patient has lost significant weight. He states, ? It?s normal I lost weight. I am only eating mustard. It is the only thing that is healthy for me to eat.? Thought Process is disorganized. He reports he does not sleep I just rest. Pt denies Substance Issues of any kind and has no known history of Substance abuse. He denies current physical complaint. He is currently on 15 minute checks for safety
[2023-07-20 21:14] VITALS: BP 114/75; PULSE 72; RESP 16; TEMP 36.6; O2SAT 98
[2023-07-21 08:26] VITALS: BP 124/70; PULSE 78; RESP 16; TEMP 36.3; O2SAT 99
[2023-07-21 08:48] LABS: Lithium < 0.10 mmol/L (0.60-1.20)
[2023-07-21 09:02] LABS: Alanine Aminotransferase 22 U/L (0-40); Albumin Level 4.4 g/dL (3.5-5.0); Alkaline Phosphatase 57 U/L (39-117); Anion Gap 17 (12-20); Aspartate Amino Transferase 18 U/L (5-37); Bilirubin Total 0.7 mg/dL (0.0-1.0); Blood Urea Nitrogen 13 mg/dL (9-16); Calcium 9.9 mg/dL (8.4-10.2); Carbon Dioxide 24 mmol/L (22-29); Chloride 101 mmol/L (96-108); Cholesterol 158 mg/dL (<200); Estimated Glomerular Filt Rate > 60; Glucose Fasting 81 mg/dL (60-99); HDL Cholesterol 60 mg/dL (>40); LDL Cholesterol Calculated 83 mg/dL (<100); Potassium 4.3 mmol/L (3.3-5.1); Sodium 138 mmol/L (135-145); Total Protein 7.5 g/dL (6.5-8.0); Triglycerides 76 mg/dL (<150)
[2023-07-21 09:19] LABS: TSH reflex Free T4 1.12 uIU/mL (0.32-4.0)
--- NOTE | 2023-07-21 13:18 | MHC.CLN ---
NUTRITION CONSULT FOR WEIGHT LOSS. VISITED WITH PATIENT ON THE UNIT. REVIEW OF WEIGHT HX SHOWS SIGNIFICANT WEIGHT LOSS: -11.7% X 2 WEEKS, -12% X 3 MONTHS. WEIGHT LOSS X 6 MONTHS=-8%, WEIGHT LOSS X ONE YEAR=-16%. PER NURSING, PATIENT EATING ONLY MUSTARD X 5 DAYS. ATE EGGS THIS MORNING FOR BREAKFAST. PROVIDED THIS SLITTER CUT OFF OPERATOR WITH AN EXTENSIVE LIST OF FOODS, REASONS WHY HE LIKES OR DISLIKES THEM, AND HOW MUCH/HOW OFTEN HE WILL EAT THEM. THIS SLITTER CUT OFF OPERATOR VISITED PATIENT DURING PRIOR ADMIT 02/10/23. AT THAT TIME, HE REQUESTED DOUBLE PROTEIN AND DOUBLE VEGETABLE. DOES NOT WANT THAT NOW AND REFERRED TO HANDWRITTEN PAPER. ADVISED KITCHEN THAT PATIENT WITH VERY SPECIFIC FOOD CHOICES AND TO PROVIDE REQUESTED FOODS ABLE. RD AVAILABLE TO ASSIST WITH MENU IF NEEDED.
--- NOTE | 2023-07-21 13:59 | P.HPPS_ITS ---
HPI Date of Service: 07/21/23 Chief Complaint: aud skelton si unsafe behavior Sources of Information: patient interviewed, chart reviewed and crisis/core team assessment reviewed HPI Subjective Notes: [place] Warning, Conditional Voluntary and 3 Day Narrative: Patient is a 57-year-old male with history of schizoaffective disorder, frequent medication non adherence, recently discharged from on 07/13/2023 who again presents for some disorganized behavior in the community. Patient says that his girlfriend called 911 because patient was walking out in the cold under dressed; patient was taking his medication back to the pharmacy saying he did wanted anymore however because he did not want to ruin his jacket in the rain, he did not wear 1. Patient says he does not want to take medications because he was forced to start taking them when he was 14 years old. He says they make him sick and suicidal. Instead patient wants to eat healthy; for what sounds like a short. Patient was only eating mustard packets however he says he is eating bigger meals which staff confirms. Patient currently expresses delusional thinking, saying that God speaks to him and does not want him to take medications; he talks about the earth evolving into a [place] for human beings and repeats the words human being several times in a row... Endorses auditory hallucinations that are mostly positive and mostly encouraging however sometimes they tell him to do wrong things. Patient says he is mostly able to discern and ignore when necessary. He gave an example that a spirit told her to drink a glass of alcohol which he did. Patient says he refuses to take any medications now. Past Psychiatric History: -Has OP psych services at [facility][NOTE 3], Psychiatrist is Urban Nolasco -Hx of multiple IPLOC -Denies hx of suicide attempts or SIB -Past meds: lamictal, bupropion XL (?makes you numb?), Stelazine (took at age 14, ?burned my skull and my bones?), clozapine (says he had a seizure on higher dose) Medical Evaluation Reviewed: Yes [facility] Medical History Schizoaffective disorder, bipolar type Family History: father with depression Social History: -Pt born and raised in [place], has two brothers, mother . -Lives with his gf for over 22 years, not , no children. -Unemployed, has SSDI. In the past he worked at [employer], [employer]. -Hx of being in [place] as young adult Substance History: Limited Trauma History: -Not discussed Diagnostics Vital Signs (24Hr): Vital Signs - 24 hr 07/20/23 14:11 07/20/23 15:00 07/20/23 21:14 Temperature 97.9 F 97.9 F Pulse Rate 88 72 Respiratory Rate 18 16 16 Blood Pressure 142/86 H 114/75 Pulse Oximetry 100 98 Oxygen Delivery Method Room Air Room Air 07/21/23 08:26 Temperature 97.4 F Pulse Rate 78 Respiratory Rate 16 Blood Pressure 124/70 Pulse Oximetry 99 Oxygen Delivery Method Room Air BMI result Body Mass Index 24.1 Labs 07/18/23 12:10 07/21/23 08:34 Labs: Laboratory Results - last 48 hr 07/20/23 07/21/23 09:10 08:34 Sodium 138 Potassium 4.3 Chloride 101 Carbon Dioxide 24 Anion Gap 17 BUN 13 Creatinine 0.97 Estim Creat Clear Calc 90.0 Estimated GFR > 60 Fasting Glucose 81 Calcium 9.9 Total Bilirubin 0.7 AST 18 ALT 22 Alkaline Phosphatase 57 Total Protein 7.5 Albumin 4.4 Triglycerides 76 Cholesterol 158 LDL Cholesterol, Calc 83 HDL Cholesterol 60 TSH 1.12 [place] < 0.10 L COVID-19 (RYAN) Negative COVID-19 Clin Com See Note Meds/Allergies Meds Home Medications Medication Instructions Recorded Confirmed Type lithium carbonate 300 mg capsule 600 mg PO QAM 07/08/23 07/18/23 History lithium carbonate 450 mg 900 mg PO BEDTIME 07/08/23 07/18/23 History tablet,extended release paliperidone palmitate 234 mg/1.5 234 mg IM Q4W 07/08/23 07/18/23 History mL intramuscular syringe (Invega Sustenna) Allergies Allergies Allergy/AdvReac Type Severity Reaction Status Date / Time bupropion [From Wellbutrin] Allergy Mild CAUSES Verified 07/18/23 13:07 SWOLLEN HEAD tetracycline [Tetracycline] Allergy Mild UNKNOWN Verified 07/18/23 13:07 trifluoperazine Allergy Mild UNKNOWN Verified 07/18/23 13:07 [From Stelazine] clozapine [From Clozaril] AdvReac Mild SEIZURES,NE Verified 07/18/23 13:07 UTROPENIA Mental Status Exam Mental Status Exam Narrative: Pt is alert and oriented; behavior is cooperative and calm; patient is not in distress; dressed in hospital attire, disheveled; mood is described as good and affect blunted; eye contact appropriate though can sometimes stare; Speech is monotone and loud; significant thought blocking; no psychomotor agitation/retardation present; thought process is organized and goal directed; Thought content is on delusional ideas and not wanting medication; denies any SI/HI. Endorses auditory hallucinations that are mostly encouraging Patients insight and judgment impaired Assessment & Plan Assessment & Plan (1) Schizoaffective disorder: Status: Acute Qualifiers: Schizoaffective disorder type: unspecified Qualified Code(s): F25.9 - Schizoaffective disorder, unspecified Code(s): F25.9 - Schizoaffective disorder, unspecified Plan Patient is a 57-year-old male with history of schizoaffective disorder, frequent medication non adherence, recently discharged from on 07/13/2023 who again presents for some disorganized behavior in the community. Patient says that his girlfriend called 911 because patient was walking out in the cold under dressed; patient was taking his medication back to the pharmacy saying he did wanted anymore however because he did not want to ruin his jacket in the rain, he did not wear 1. Patient says he does not want to take medications because he was forced to start taking them when he was 14 years old. He says they make him sick and suicidal. Instead patient wants to eat healthy; for what sounds like a short. Patient was only eating mustard packets however he says he is eating bigger meals which staff confirms. Patient currently expresses delusional thinking, saying that God speaks to him and does not want him to take medications; he talks about the earth evolving into a Manns Choice for human beings and repeats the words human being several times in a row... Endorses auditory hallucinations that are mostly positive and mostly encouraging however sometimes they tell him to do wrong things. Patient says he is mostly able to discern and ignore when necessary. He gave an example that a spirit told her to drink a glass of alcohol which he did. Patient says he refuses to take any medications now. Plan: CV and then 3 day notice Q 15 minute checks Home medications reordered however patient is refusing Patient educated on: diagnosis and medication risk/benefits Informed Consent: understands, does not understand and further education needed Reason for continued inpatient stay Substantial Risk for: rapid decompensation Statement Statement: I have reviewed the history and physical and performed a pertinent examination on my patient. No changes have occurred unless specified. If the History and Physical was not performed prior to admission, the Hospitalist's service will be consulted for completing the admission physical. Time Spent With Patient Time: Total time managing care of this patient today ____ minutes.
[2023-07-21 20:25] VITALS: BP 120/73; PULSE 78; RESP 18; TEMP 36.2; O2SAT 98
--- NOTE | 2023-07-22 05:58 | PC.NURSE ---
retracted 3 day notice-approached desk and reported ''I have changed my mind I want to retract my notice.
[2023-07-22 07:00] VITALS: BMI 24.2
[2023-07-22 07:25] VITALS: BP 112/68; PULSE 76; RESP 18; TEMP 36.3; O2SAT 100
--- NOTE | 2023-07-22 09:22 | HO.PSYCHPN ---
Subjective Subjective Date of Service: 07/22/23 Reason For Visit: theresa skelton si unsafe behavior Interim History: Met with patient; discussed with team Patient remains somewhat disorganized, saying he wants to stay on the unit to get better physically to repair his senility because the Stelazine and saltpeter (that he took as a teenager) still in his brain... Says he needs a new girlfriend because she is too controlling. Adamantly refuses to take medications with a residing no. Patient did shower today with prompting. Still eating mustard from [employer] however also eating food sent from cafeteria. Mental Status Exam Mental Status Exam Narrative: Pt is alert and oriented; behavior is cooperative and calm; patient is not in distress; dressed in hospital attire, unkempt but with improved hygiene post shower; mood is described as good and affect blunted; eye contact appropriate though can sometimes stare; Speech is monotone and loud; significant thought blocking; no psychomotor agitation/retardation present; thought process is organized and goal directed; Thought content is on delusional ideas and not wanting medication; denies any SI/HI. Endorses auditory hallucinations that are mostly encouraging Patients insight and judgment impaired Diagnostics Vital Signs (24Hr): Vital Signs - 24 hr 07/21/23 20:25 07/22/23 07:25 Temperature 97.2 F 97.4 F Pulse Rate 78 76 Respiratory Rate 18 18 Blood Pressure 120/73 112/68 Pulse Oximetry 98 100 Oxygen Delivery Method Room Air Room Air BMI result Body Mass Index 24.1 Labs 07/18/23 12:10 07/21/23 08:34 Labs: Laboratory Results - last 48 hr 07/20/23 07/21/23 09:10 08:34 Sodium 138 Potassium 4.3 Chloride 101 Carbon Dioxide 24 Anion Gap 17 BUN 13 Creatinine 0.97 Estim Creat Clear Calc 90.0 Estimated GFR > 60 Fasting Glucose 81 Calcium 9.9 Total Bilirubin 0.7 AST 18 ALT 22 Alkaline Phosphatase 57 Total Protein 7.5 Albumin 4.4 Triglycerides 76 Cholesterol 158 LDL Cholesterol, Calc 83 HDL Cholesterol 60 TSH 1.12 [place] < 0.10 L COVID-19 (RYAN) Negative COVID-19 Clin Com See Note Medications Medications Current Medications Acetaminophen (Acetaminophen 325 Mg Tablet) 650 mg PO Q6H PRN PRN Reason: Headache/Pain Mild Scale (1-3) Al Hydroxide/Mg Hydroxide (Magnesium Hydrox/Alum Hydrox 30 Ml Oral.Susp) 30 ml PO Q6H PRN PRN Reason: Heartburn/Nausea Benztropine Mesylate (Benztropine Mesylate 1 Mg Tablet) 1 mg PO BID COUNTS [facility]CLUDE 234 BEDS AT THE [facility] Last Admin: 07/22/23 08:21 Dose: Not Given Haloperidol (Haloperidol 5 Mg Tablet) 10 mg PO DAILY COUNTS INCLUDE 234 BEDS AT THE [facility] Last Admin: 07/22/23 08:21 Dose: Not Given Hydroxyzine HCl (Hydroxyzine Hcl 25 Mg Tablet) 25 mg PO Q6H PRN PRN Reason: Anxiety [place] Carbonate ([place] Carbonate Er 450 Mg Tablet.Er) 900 mg PO BEDTIME COUNTS INCLUDE 234 BEDS AT THE [facility] Last Admin: 07/21/23 20:26 Dose: Not Given Magnesium Hydroxide (Milk Of Magnesia 30 Ml Oral.Susp) 30 ml PO DAILY PRN PRN Reason: Constipation Olanzapine (Olanzapine Odt 10 Mg Tab.Rapdis) 10 mg TRANSLINGU BID PRN PRN Reason: Psychosis Paliperidone Palmitate (Paliperidone Palmitate 234 Mg/1.5 Ml Syringe) 234 mg IM Q28D COUNTS INCLUDE 234 BEDS AT THE [facility] Allergies Allergies Allergy/AdvReac Type Severity Reaction Status Date / Time bupropion [From Wellbutrin] Allergy Mild CAUSES Verified 07/18/23 13:07 SWOLLEN HEAD tetracycline [Tetracycline] Allergy Mild UNKNOWN Verified 07/18/23 13:07 trifluoperazine Allergy Mild UNKNOWN Verified 07/18/23 13:07 [From Stelazine] clozapine [From Clozaril] AdvReac Mild SEIZURES,NE Verified 07/18/23 13:07 UTROPENIA Assessment & Plan Assessment & Plan (1) Schizoaffective disorder: Qualifiers: Schizoaffective disorder type: unspecified Qualified Code(s): F25.9 - Schizoaffective disorder, unspecified Status: Acute Code(s): F25.9 - Schizoaffective disorder, unspecified Plan Patient is a 57-year-old male with history of schizoaffective disorder, frequent medication non adherence, recently discharged from on 07/13/2023 who again presents for some disorganized behavior in the community. Patient says that his girlfriend called 911 because patient was walking out in the cold under dressed; patient was taking his medication back to the pharmacy saying he did wanted anymore however because he did not want to ruin his jacket in the rain, he did not wear 1. Patient says he does not want to take medications because he was forced to start taking them when he was 14 years old. He says they make him sick and suicidal. Instead patient wants to eat healthy; for what sounds like a short. Patient was only eating mustard packets however he says he is eating bigger meals which staff confirms. Patient currently expresses delusional thinking, saying that God speaks to him and does not want him to take medications; he talks about the earth evolving into a [place] for human beings and repeats the words human being several times in a row... Endorses auditory hallucinations that are mostly positive and mostly encouraging however sometimes they tell him to do wrong things. Patient says he is mostly able to discern and ignore when necessary. He gave an example that a spirit told her to drink a glass of alcohol which he did. Patient says he refuses to take any medications now. Hospital course: 07/22 remains with delusions, AH, disorganized thinking; did retract 3 day because he wants to stay in the hospital to get better but means physically better; his perspective on physical health is intertwined with delusional thinking -refusing medication Plan: CV (retracted 3 day) Q 15 minute checks Refusing medications Patient educated on: diagnosis and medication risk/benefits Informed Consent: does not understand Reason for continued inpatient stay Substantial Risk for: inability to function Time Spent With Patient Time: Total time managing care of this patient today ____ minutes.
[2023-07-22 20:35] VITALS: BP 123/67; PULSE 71; RESP 16; TEMP 36.7; O2SAT 98
[2023-07-23 07:15] VITALS: BP 101/58; PULSE 65; RESP 18; TEMP 36.4; O2SAT 99
--- NOTE | 2023-07-23 10:06 | P.PNPSI_ITS ---
Subjective Subjective Date of Service: 07/23/23 Reason For Visit: theresa skelton si unsafe behavior Subjective Notes: Conditional Voluntary Guardianship: No Medical Problems Affecting Mental Status: No Interim History: Patient seen in psychiatric follow-up case reviewed in treatment team the patient has been eating food he remains floridly delusional preoccupied with he states it is different parts of his brain that he feels he needs to regulate. He does appear to know that he needs to eat food and not just mustard not combative somewhat anxious internally preoccupied throughout the day continues to absolutely refuse medication Mental Status Exam Mental Status Exam Narrative: The patient is casually dressed is cooperative to the interview diaphoretic anxious significant thought blocking preoccupied with delusional system related to different parts of his brain illogical denies SI or HI no gross hallucination insight markedly impaired impulse control seems intact Diagnostics Vital Signs (24Hr): Vital Signs - 24 hr 07/22/23 20:35 07/23/23 07:15 Temperature 98.0 F 97.5 F Pulse Rate 71 65 Respiratory Rate 16 18 Blood Pressure 123/67 101/58 L Pulse Oximetry 98 99 Oxygen Delivery Method Room Air Room Air BMI result Body Mass Index 24.2 Labs 07/18/23 12:10 07/21/23 08:34 Medications Medications Current Medications Acetaminophen (Acetaminophen 325 Mg Tablet) 650 mg PO Q6H PRN PRN Reason: Headache/Pain Mild Scale (1-3) Al Hydroxide/Mg Hydroxide (Magnesium Hydrox/Alum Hydrox 30 Ml Oral.Susp) 30 ml PO Q6H PRN PRN Reason: Heartburn/Nausea Benztropine Mesylate (Benztropine Mesylate 1 Mg Tablet) 1 mg PO BID [facility] Last Admin: 07/23/23 08:03 Dose: Not Given Haloperidol (Haloperidol 5 Mg Tablet) 10 mg PO DAILY [facility] Last Admin: 07/23/23 08:03 Dose: Not Given Hydroxyzine HCl (Hydroxyzine Hcl 25 Mg Tablet) 25 mg PO Q6H PRN PRN Reason: Anxiety [place] Carbonate ([place] Carbonate Er 450 Mg Tablet.Er) 900 mg PO BEDTIME [facility] Last Admin: 07/22/23 20:47 Dose: Not Given Magnesium Hydroxide (Milk Of Magnesia 30 Ml Oral.Susp) 30 ml PO DAILY PRN PRN Reason: Constipation Olanzapine (Olanzapine Odt 10 Mg Tab.Rapdis) 10 mg TRANSLINGU BID PRN PRN Reason: Psychosis Paliperidone Palmitate (Paliperidone Palmitate 234 Mg/1.5 Ml Syringe) 234 mg IM Q28D [facility] Allergies Allergies Allergy/AdvReac Type Severity Reaction Status Date / Time bupropion [From Wellbutrin] Allergy Mild CAUSES Verified 07/18/23 13:07 SWOLLEN HEAD tetracycline [Tetracycline] Allergy Mild UNKNOWN Verified 07/18/23 13:07 trifluoperazine Allergy Mild UNKNOWN Verified 07/18/23 13:07 [From Stelazine] clozapine [From Clozaril] AdvReac Mild SEIZURES,NE Verified 07/18/23 13:07 UTROPENIA Assessment & Plan Assessment & Plan (1) Schizoaffective disorder: Qualifiers: Schizoaffective disorder type: unspecified Qualified Code(s): F25.9 - Schizoaffective disorder, unspecified Status: Acute Code(s): F25.9 - Schizoaffective disorder, unspecified Plan Patient is a 57-year-old male with history of schizoaffective disorder, frequent medication non adherence, recently discharged from on 07/13/2023 who again presents for some disorganized behavior in the community. Patient says that his girlfriend called 911 because patient was walking out in the cold under dressed; patient was taking his medication back to the pharmacy saying he did wanted anymore however because he did not want to ruin his jacket in the rain, he did not wear 1. Patient says he does not want to take medications because he was forced to start taking them when he was 14 years old. He says they make him sick and suicidal. Instead patient wants to eat healthy; for what sounds like a short. Patient was only eating mustard packets however he says he is eating bigger meals which staff confirms. Patient currently expresses delusional thinking, saying that God speaks to him and does not want him to take medications; he talks about the earth evolving into a [place] for human beings and repeats the words human being several times in a row... Endorses auditory hallucinations that are mostly positive and mostly encouraging however sometimes they tell him to do wrong things. Patient says he is mostly able to discern and ignore when necessary. He gave an example that a spirit told her to drink a glass of alcohol which he did. Patient says he refuses to take any medications now. Hospital course: 07/22 remains with delusions, AH, disorganized thinking; did retract 3 day because he wants to stay in the hospital to get better but means physically better; his perspective on physical health is intertwined with delusional thinking -refusing medication 07/23/23 Patient remains floridly psychotic currently agreeable staying in the hospital realizes he needs help but refusing medication need to evaluate patient's ability to care for self if not hospitalized Plan: CV (retracted 3 day) Q 15 minute checks Refusing medications Reason for continued inpatient stay Substantial Risk for: inability to function, rapid decompensation and med/psych decompensation Time Spent With Patient Time: Total time managing care of this patient today ____ minutes.
[2023-07-23 20:05] VITALS: BP 115/70; PULSE 82; RESP 18; TEMP 36.6; O2SAT 100
[2023-07-24 07:15] VITALS: BP 123/78; PULSE 72; RESP 16; TEMP 36.1; O2SAT 100
[2023-07-24 20:05] VITALS: BP 114/67; PULSE 78; RESP 16; TEMP 36.2; O2SAT 100
--- NOTE | 2023-07-24 21:51 | HO.PSYCHPN ---
Subjective Subjective Date of Service: 07/24/23 Reason For Visit: theresa nafisa si unsafe behavior Interim History: i have to stay here forever. pt states he wrote a plan for [employer] and so he is at risk of someone stealing him if he is outside the hospital. pt feels safer in the hospital. he refuses to take medications, although he does feel that staying in the hospital will make him better. per staff, pt has been sleeping 1.5-2 hours per night. had only been eating mustard for 5 days but ate meals yesterday. has lost 28 lbs since most recent discharge. attending groups. laughing and dancing with day staff. refusing meds. masturbating in his room often. Mental Status Exam Mental Status Exam Narrative: dressed in [employer], disheveled. cooperative. mild PMR. speech flat, monotone. nml amount, decr rate. incr ARTHUR. thoughts linear and illogical. affect constricted, hypo-intense, non-labile. mood not assessed. no SI/HI/AVH expressed. Diagnostics Vital Signs (24Hr): Vital Signs - 24 hr 07/24/23 07:15 Temperature 96.9 F Pulse Rate 72 Respiratory Rate 16 Blood Pressure 123/78 Pulse Oximetry 100 Oxygen Delivery Method Room Air BMI result Body Mass Index 24.2 Labs 07/18/23 12:10 07/21/23 08:34 Medications Medications Current Medications Acetaminophen (Acetaminophen 325 Mg Tablet) 650 mg PO Q6H PRN PRN Reason: Headache/Pain Mild Scale (1-3) Al Hydroxide/Mg Hydroxide (Magnesium Hydrox/Alum Hydrox 30 Ml Oral.Susp) 30 ml PO Q6H PRN PRN Reason: Heartburn/Nausea Benztropine Mesylate (Benztropine Mesylate 1 Mg Tablet) 1 mg PO BID [facility] Last Admin: 07/24/23 08:27 Dose: Not Given Haloperidol (Haloperidol 5 Mg Tablet) 10 mg PO DAILY [facility] Last Admin: 07/24/23 08:27 Dose: Not Given Hydroxyzine HCl (Hydroxyzine Hcl 25 Mg Tablet) 25 mg PO Q6H PRN PRN Reason: Anxiety [place] Carbonate ([place] Carbonate Er 450 Mg Tablet.Er) 900 mg PO BEDTIME [facility] Last Admin: 07/23/23 21:10 Dose: Not Given Magnesium Hydroxide (Milk Of Magnesia 30 Ml Oral.Susp) 30 ml PO DAILY PRN PRN Reason: Constipation Olanzapine (Olanzapine Odt 10 Mg Tab.Rapdis) 10 mg TRANSLINGU BID PRN PRN Reason: Psychosis Paliperidone Palmitate (Paliperidone Palmitate 234 Mg/1.5 Ml Syringe) 234 mg IM Q28D [facility] Allergies Allergies Allergy/AdvReac Type Severity Reaction Status Date / Time bupropion [From Wellbutrin] Allergy Mild CAUSES Verified 07/18/23 13:07 SWOLLEN HEAD tetracycline [Tetracycline] Allergy Mild UNKNOWN Verified 07/18/23 13:07 trifluoperazine Allergy Mild UNKNOWN Verified 07/18/23 13:07 [From Stelazine] clozapine [From Clozaril] AdvReac Mild SEIZURES,NE Verified 07/18/23 13:07 UTROPENIA Assessment & Plan Assessment & Plan (1) Schizoaffective disorder: Qualifiers: Schizoaffective disorder type: unspecified Qualified Code(s): F25.9 - Schizoaffective disorder, unspecified Status: Acute Code(s): F25.9 - Schizoaffective disorder, unspecified Plan Patient is a 57-year-old male with history of schizoaffective disorder, frequent medication non adherence, recently discharged from on 07/13/2023 who again presents for some disorganized behavior in the community. Patient says that his girlfriend called 911 because patient was walking out in the cold under dressed; patient was taking his medication back to the pharmacy saying he did wanted anymore however because he did not want to ruin his jacket in the rain, he did not wear 1. Patient says he does not want to take medications because he was forced to start taking them when he was 14 years old. He says they make him sick and suicidal. Instead patient wants to eat healthy; for what sounds like a short. Patient was only eating mustard packets however he says he is eating bigger meals which staff confirms. Patient currently expresses delusional thinking, saying that God speaks to him and does not want him to take medications; he talks about the earth evolving into a [place] for human beings and repeats the words human being several times in a row... Endorses auditory hallucinations that are mostly positive and mostly encouraging however sometimes they tell him to do wrong things. Patient says he is mostly able to discern and ignore when necessary. He gave an example that a spirit told her to drink a glass of alcohol which he did. Patient says he refuses to take any medications now. Hospital course: 07/22 remains with delusions, AH, disorganized thinking; did retract 3 day because he wants to stay in the hospital to get better but means physically better; his perspective on physical health is intertwined with delusional thinking -refusing medication 07/23/23 Patient remains floridly psychotic currently agreeable staying in the hospital realizes he needs help but refusing medication need to evaluate patient's ability to care for self if not hospitalized Plan: CV (retracted 3 day) Q 15 minute checks Refusing medications 2: refusing meds, floridly psychotic. continue to offer medications. Reason for continued inpatient stay Substantial Risk for: inability to function Time Spent With Patient Time: Total time managing care of this patient today ____ minutes.
[2023-07-25 06:00] VITALS: BP 123/68; PULSE 60; RESP 16; TEMP 36.2; O2SAT 100
--- NOTE | 2023-07-25 14:44 | PC.NURSE ---
Amy Rodríguez, pt's significant other, called to report that Eriberto is talking about dying soon, similarly to when he attempted to asphyxiate himself. He has put in a 3 day notice and she is concerned that he is not safe for discharge. I agreed to pass along her concerns to treatment team.
--- NOTE | 2023-07-25 15:23 | PC.NURSE ---
Pt signed a 3 day due to resolve on 07/28/23. All parties notified
--- NOTE | 2023-07-25 17:48 | HO.PSYCHPN ---
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 focused on completing 3-day notice at time of interview. largely not responsive to MD's questions about his change of heart in the past 24H, but essentially says he has changed his mind about staying in the hospital because i need to reside at my property [insert address here]. per staff, no change in presentation. Mental Status Exam Mental Status Exam Narrative: dressed in [facility], disheveled. generally cooperative. mild PMR. speech flat, monotone. decr amount, decr rate. incr ARTHUR. thoughts linear and illogical. affect constricted, hypo-intense, non-labile. mood not assessed. no SI/HI/AVH expressed. Diagnostics Vital Signs (24Hr): Vital Signs - 24 hr 07/24/23 20:05 07/25/23 06:00 Temperature 97.1 F 97.2 F Pulse Rate 78 60 Respiratory Rate 16 16 Blood Pressure 114/67 123/68 Pulse Oximetry 100 100 Oxygen Delivery Method Room Air Room Air BMI result Body Mass Index 24.2 Labs 07/18/23 12:10 07/21/23 08:34 Medications Medications Current Medications Acetaminophen (Acetaminophen 325 Mg Tablet) 650 mg PO Q6H PRN PRN Reason: Headache/Pain Mild Scale (1-3) Al Hydroxide/Mg Hydroxide (Magnesium Hydrox/Alum Hydrox 30 Ml Oral.Susp) 30 ml PO Q6H PRN PRN Reason: Heartburn/Nausea Benztropine Mesylate (Benztropine Mesylate 1 Mg Tablet) 1 mg PO BID [facility] Last Admin: 07/25/23 08:51 Dose: Not Given Haloperidol (Haloperidol 5 Mg Tablet) 10 mg PO DAILY [facility] Last Admin: 07/25/23 08:51 Dose: Not Given Hydroxyzine HCl (Hydroxyzine Hcl 25 Mg Tablet) 25 mg PO Q6H PRN PRN Reason: Anxiety [place] Carbonate ([place] Carbonate Er 450 Mg Tablet.Er) 900 mg PO BEDTIME [facility] Last Admin: 07/24/23 22:10 Dose: Not Given Magnesium Hydroxide (Milk Of Magnesia 30 Ml Oral.Susp) 30 ml PO DAILY PRN PRN Reason: Constipation Olanzapine (Olanzapine Odt 10 Mg Tab.Rapdis) 10 mg TRANSLINGU BID PRN PRN Reason: Psychosis Paliperidone Palmitate (Paliperidone Palmitate 234 Mg/1.5 Ml Syringe) 234 mg IM Q28D [facility] Allergies Allergies Allergy/AdvReac Type Severity Reaction Status Date / Time bupropion [From Wellbutrin] Allergy Mild CAUSES Verified 07/18/23 13:07 SWOLLEN HEAD tetracycline [Tetracycline] Allergy Mild UNKNOWN Verified 07/18/23 13:07 trifluoperazine Allergy Mild UNKNOWN Verified 07/18/23 13:07 [From Stelazine] clozapine [From Clozaril] AdvReac Mild SEIZURES,NE Verified 07/18/23 13:07 UTROPENIA Assessment & Plan Assessment & Plan (1) Schizoaffective disorder: Qualifiers: Schizoaffective disorder type: unspecified Qualified Code(s): F25.9 - Schizoaffective disorder, unspecified Status: Acute Code(s): F25.9 - Schizoaffective disorder, unspecified Plan Patient is a 57-year-old male with history of schizoaffective disorder, frequent medication non adherence, recently discharged from on 07/13/2023 who again presents for some disorganized behavior in the community. Patient says that his girlfriend called 911 because patient was walking out in the cold under dressed; patient was taking his medication back to the pharmacy saying he did wanted anymore however because he did not want to ruin his jacket in the rain, he did not wear 1. Patient says he does not want to take medications because he was forced to start taking them when he was 14 years old. He says they make him sick and suicidal. Instead patient wants to eat healthy; for what sounds like a short. Patient was only eating mustard packets however he says he is eating bigger meals which staff confirms. Patient currently expresses delusional thinking, saying that God speaks to him and does not want him to take medications; he talks about the earth evolving into a [place] for human beings and repeats the words human being several times in a row... Endorses auditory hallucinations that are mostly positive and mostly encouraging however sometimes they tell him to do wrong things. Patient says he is mostly able to discern and ignore when necessary. He gave an example that a spirit told her to drink a glass of alcohol which he did. Patient says he refuses to take any medications now. Hospital course: 07/22 remains with delusions, AH, disorganized thinking; did retract 3 day because he wants to stay in the hospital to get better but means physically better; his perspective on physical health is intertwined with delusional thinking -refusing medication 07/23/23 Patient remains floridly psychotic currently agreeable staying in the hospital realizes he needs help but refusing medication need to evaluate patient's ability to care for self if not hospitalized Plan: CV (retracted 3 day) Q 15 minute checks Refusing medications 07/24: refusing meds, floridly psychotic. continue to offer medications. 07/25: no change in presentation. submitted 3-day notice. Reason for continued inpatient stay Substantial Risk for: inability to function Time Spent With Patient Time: Total time managing care of this patient today ____ minutes.
[2023-07-25 20:30] VITALS: BP 135/71; PULSE 75; RESP 18; TEMP 36.4; O2SAT 99
[2023-07-26 07:30] VITALS: BP 125/67; PULSE 64; RESP 16; TEMP 36.2; O2SAT 99
[2023-07-26 08:32] LABS: Appearance Urine Clear; Color Urine Yellow; Glucose Urine UA Negative (Negative); Leukocyte Esterase Urine Negative (Negative); Nitrite Urine Negative (Negative); PH 5.5 (5.0-9.0); Specific Gravity - Urine 1.015 (1.005-1.025); Urine Blood Negative (Negative); Urine Ketones Negative (Negative); Urine Protein Negative (Neg-Trace)
--- NOTE | 2023-07-26 14:11 | HO.PSYCHPN ---
Subjective Subjective Date of Service: 07/26/23 Reason For Visit: theresa skelton si unsafe behavior Interim History: calm, cooperative. planning to discharge weds. no questions or complaints. per staff, 3-day up weds. not asking any medications. eating meals and attending groups. writing prolifically. urinated in floor in front of RN station. UA NEG. seeking connections with peers, being turned away. no BM in several days. GF called and reports he told her he is planning to soon. Mental Status Exam Mental Status Exam Narrative: dressed in johnnys, disheveled. generally cooperative. mild PMR. speech flat, monotone. decr amount, decr rate. incr ARTHUR. thoughts linear and illogical. affect constricted, hypo-intense, non-labile. mood not assessed. no SI/HI/AVH expressed. Diagnostics Vital Signs (24Hr): Vital Signs - 24 hr 07/25/23 20:30 07/26/23 07:30 Temperature 97.5 F 97.2 F Pulse Rate 75 64 Respiratory Rate 18 16 Blood Pressure 135/71 125/67 Pulse Oximetry 99 99 Oxygen Delivery Method Room Air Room Air BMI result Body Mass Index 24.2 Labs 07/18/23 12:10 07/21/23 08:34 Labs: Laboratory Results - last 48 hr 07/26/23 08:05 Urine Color Yellow Urine Appearance Clear Urine pH 5.5 Ur Specific [place] 1.015 Urine Protein Negative Urine Glucose (UA) Negative Urine Ketones Negative Urine Blood Negative Urine Nitrite Negative Ur Leukocyte Esterase Negative Medications Medications Current Medications Acetaminophen (Acetaminophen 325 Mg Tablet) 650 mg PO Q6H PRN PRN Reason: Headache/Pain Mild Scale (1-3) Al Hydroxide/Mg Hydroxide (Magnesium Hydrox/Alum Hydrox 30 Ml Oral.Susp) 30 ml PO Q6H PRN PRN Reason: Heartburn/Nausea Benztropine Mesylate (Benztropine Mesylate 1 Mg Tablet) 1 mg PO BID [facility] Last Admin: 07/26/23 08:22 Dose: Not Given Haloperidol (Haloperidol 5 Mg Tablet) 10 mg PO DAILY [facility] Last Admin: 07/26/23 08:22 Dose: Not Given Hydroxyzine HCl (Hydroxyzine Hcl 25 Mg Tablet) 25 mg PO Q6H PRN PRN Reason: Anxiety Leedey Carbonate (Leedey Carbonate Er 450 Mg Tablet.Er) 900 mg PO BEDTIME [facility] Last Admin: 07/25/23 21:52 Dose: Not Given Magnesium Hydroxide (Milk Of Magnesia 30 Ml Oral.Susp) 30 ml PO DAILY PRN PRN Reason: Constipation Olanzapine (Olanzapine Odt 10 Mg Tab.Rapdis) 10 mg TRANSLINGU BID PRN PRN Reason: Psychosis Paliperidone Palmitate (Paliperidone Palmitate 234 Mg/1.5 Ml Syringe) 234 mg IM Q28D ANJUM Allergies Allergies Allergy/AdvReac Type Severity Reaction Status Date / Time bupropion [From Wellbutrin] Allergy Mild CAUSES Verified 07/18/23 13:07 SWOLLEN HEAD tetracycline [Tetracycline] Allergy Mild UNKNOWN Verified 07/18/23 13:07 trifluoperazine Allergy Mild UNKNOWN Verified 07/18/23 13:07 [From Stelazine] clozapine [From Clozaril] AdvReac Mild SEIZURES,NE Verified 07/18/23 13:07 UTROPENIA Assessment & Plan Assessment & Plan (1) Schizoaffective disorder: Qualifiers: Schizoaffective disorder type: unspecified Qualified Code(s): F25.9 - Schizoaffective disorder, unspecified Status: Acute Code(s): F25.9 - Schizoaffective disorder, unspecified Plan Patient is a 57-year-old male with history of schizoaffective disorder, frequent medication non adherence, recently discharged from on 07/13/2023 who again presents for some disorganized behavior in the community. Patient says that his girlfriend called 911 because patient was walking out in the cold under dressed; patient was taking his medication back to the pharmacy saying he did wanted anymore however because he did not want to ruin his jacket in the rain, he did not wear 1. Patient says he does not want to take medications because he was forced to start taking them when he was 14 years old. He says they make him sick and suicidal. Instead patient wants to eat healthy; for what sounds like a short. Patient was only eating mustard packets however he says he is eating bigger meals which staff confirms. Patient currently expresses delusional thinking, saying that God speaks to him and does not want him to take medications; he talks about the earth evolving into a [place] for human beings and repeats the words human being several times in a row... Endorses auditory hallucinations that are mostly positive and mostly encouraging however sometimes they tell him to do wrong things. Patient says he is mostly able to discern and ignore when necessary. He gave an example that a spirit told her to drink a glass of alcohol which he did. Patient says he refuses to take any medications now. Hospital course: 07/22 remains with delusions, AH, disorganized thinking; did retract 3 day because he wants to stay in the hospital to get better but means physically better; his perspective on physical health is intertwined with delusional thinking -refusing medication 07/23/23 Patient remains floridly psychotic currently agreeable staying in the hospital realizes he needs help but refusing medication need to evaluate patient's ability to care for self if not hospitalized Plan: CV (retracted 3 day) Q 15 minute checks Refusing medications 2: refusing meds, floridly psychotic. continue to offer medications. 07/25: no change in presentation. submitted 3-day notice. 07/26: future oriented, looking forward to discharge so he can return home and do his best and try to cohabitate. refusing meds. urinated on floor in front of RN station last NOC. 3-day up . Reason for continued inpatient stay Substantial Risk for: inability to function Time Spent With Patient Time: Total time managing care of this patient today ____ minutes.
[2023-07-26 18:00] VITALS: BP 128/78; PULSE 73; RESP 16; TEMP 36; O2SAT 99
[2023-07-27 07:00] VITALS: BP 121/67; PULSE 65; RESP 18; TEMP 36.3; O2SAT 100
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
[2023-07-27 18:00] VITALS: BP 133/76; PULSE 71; RESP 18; TEMP 36; O2SAT 97
[2023-07-28 07:55] VITALS: BP 125/70; PULSE 75; RESP 16; TEMP 36.5; O2SAT 99
== END 2023-07-28 11:22 | disposition home or self-care (01) | DRG 885 ==
LOC: HO.ED 07-20 08:22 → HO.PADLT16 07-20 14:31
PROVIDERS: Emergency Medicine; Admitting Provider Psychiatry & Neurology Psychiatry; Emergency Provider Emergency Medicine Emergency Medical Services; Visit Provider Psychiatry & Neurology Psychiatry
DX: F25.1 Schizoaffective disorder, depressive type (principal); R45.851 Suicidal ideations; Z20.822 Contact with and (suspected) exposure to COVID-19; Z91.148 Patient's other noncompliance with medication regimen for other reason; Z79.899 Other long term (current) drug therapy
CPT/HCPCS: 36415; 80048; 80053; 80061; 80076; 80178; 80307; 81003; 83735; 84443; 85025; 87635; 93005; 99285; S9485

== ENCOUNTER → 2023-07-19 08:22 | Outpatient (BNV) | payer OTHER, SELFPAY | PROVIDERS: Emergency Provider Emergency Medicine; Visit Provider Internal Medicine Cardiovascular Disease | DX: R00.1 Bradycardia, unspecified (principal) | CPT/HCPCS: 93010 ==

== ENCOUNTER → 2023-07-20 14:22 | Outpatient (BNV) | payer OTHER, SELFPAY | PROVIDERS: Admitting Provider Psychiatry & Neurology Psychiatry; Emergency Provider Emergency Medicine Emergency Medical Services; Visit Provider Psychiatry & Neurology Psychiatry | DX: F25.8 Other schizoaffective disorders (principal) | CPT/HCPCS: 99232 ==

== ENCOUNTER → 2023-07-20 14:22 | Outpatient (BNV) | payer OTHER, SELFPAY | PROVIDERS: Admitting Provider Psychiatry & Neurology Psychiatry; Emergency Provider Emergency Medicine Emergency Medical Services; Visit Provider Psychiatry & Neurology Psychiatry | DX: F25.8 Other schizoaffective disorders (principal) | CPT/HCPCS: 90792; 99231; 99232; 99239 ==

== ENCOUNTER 2023-08-01 04:15 | Inpatient (IN) | payer OTHER, SELFPAY ==
--- NOTE | 2023-08-01 | ECG_ITS ---
Test Reason : MED CLEARANCE Blood Pressure : / mmHG Vent. Rate : 063 BPM Atrial Rate : 063 BPM P-R Int : 176 ms QRS Dur : 098 ms QT Int : 422 ms P-R-T Axes : 067 013 028 degrees QTc Int : 431 ms Normal sinus rhythm Normal ECG When compared with ECG of 19-JUL-2023 10:58, No significant change was found Referred By: Rg Rome Electronically Signed By:Quintin Coulter
[2023-08-01 04:31] VITALS: BP 134/84; BP 134/88; PULSE 73; PULSE 89; RESP 18; TEMP 36.6; O2SAT 94; O2SAT 98; BMI 21.1
[2023-08-01 04:34] VITALS: BP 134/84; PULSE 73; RESP 18; TEMP 36.6; O2SAT 94
[2023-08-01 04:51] LABS: Appearance Urine Clear; Color Urine Yellow; Glucose Urine UA Negative (Negative); Leukocyte Esterase Urine Negative (Negative); Nitrite Urine Negative (Negative); PH 5.5 (5.0-9.0); Specific Gravity - Urine 1.015 (1.005-1.025); Urine Blood Negative (Negative); Urine Ketones Negative (Negative); Urine Protein Negative (Neg-Trace)
[2023-08-01 05:00] LABS: Amphetamine Screen Urine Not Detected (Not Detect); Barbiturates, Urine Not Detected (Not Detect); Benzodiazepines Screen Urine Not Detected (Not Detect); Cannabinoid Screen Urine Not Detected (Not Detect); Cocaine Screen Urine Not Detected (Not Detect); Fentanyl, urine Not Detected (Not Detect); Opiate Screen Urine Not Detected (Not Detect); Phencyclidine Screen Urine Not Detected (Not Detect)
[2023-08-01 05:05] LABS: MANUAL DIFF FLAG NO
[2023-08-01 05:06] LABS: Basophils Percent Auto 0.8 % (0-2); Eosinophils Absolute Auto 0.3 X10*3/uL (0.0-0.4); Eosinophils Percent Auto 6.2 % (0-4); Hematocrit 36.3 % (42.0-52.0); Hemoglobin 12.6 g/dl (14.0-18.0); Imm Gran Abs Auto 0.01 X10*3/uL (0.00-0.03); Imm Gran Pct Auto 0.2 % (0.0-0.4); Lymphocytes Absolute Auto 1.4 X10*3/uL (1.2-4.9); Lymphocytes Percent Auto 27.7 % (20-40); Mean Corpuscular HGB Conc 34.7 g/dl (31.0-36.0); Mean Corpuscular Hemoglobin 31.8 pg (27.0-33.0); Mean Corpuscular Volume 91.7 fL (80.0-98.0); Mean Platelet Volume 10.5 fL (9.4-12.4); Monocytes Absolute Auto 0.5 X10*3/uL (0.1-1.2); Monocytes Percent Auto 9.8 % (2-11); Neutrophils Absolute Auto 2.8 x10*3/uL (2.0-8.3); Neutrophils Percent Auto 55.3 % (45-73); Platelet Count 236 X10*3/uL (160-400); Red Blood Count 3.96 X10*6/uL (4.60-5.80); Red Cell Distribution Width 13.1 % (11.0-16.0)
[2023-08-01 05:22] LABS: Alanine Aminotransferase 21 U/L (0-40); Alkaline Phosphatase 49 U/L (39-117); Anion Gap 12 (12-20); Aspartate Amino Transferase 20 U/L (5-37); Bilirubin Total 0.2 mg/dL (0.0-1.0); Blood Urea Nitrogen 27 mg/dL (9-16); Calcium 9.6 mg/dL (8.4-10.2); Carbon Dioxide 25 mmol/L (22-29); Chloride 107 mmol/L (96-108); Creatinine Clr Calc Pharmacy 95.9; Estimated Glomerular Filt Rate > 60; Ethanol < 10 mg/dL; Glucose Random 95 mg/dL (60-115); Potassium 4.3 mmol/L (3.3-5.1); Sodium 140 mmol/L (135-145); Total Protein 6.7 g/dL (6.5-8.0)
[2023-08-01 05:31] LABS: Lithium < 0.10 mmol/L (0.60-1.20)
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
--- NOTE | 2023-08-01 14:13 | PC.NURSE ---
Assumed care of patient at 1100, patient is resting comfortably on couch 7, offers no complaints to this RN. Pt verbalizes not taking medications at this time. No meds have been filled since 2022
[2023-08-01 17:36] LABS: COVID-19 Test Negative (Negative); IDNOW Serial# 08D9AD1C
--- NOTE | 2023-08-01 19:25 | PC.NURSE ---
patient appears to be resting presently periodically asking for snacks, patient appears in no distress.
[2023-08-01 20:16] VITALS: BP 107/57; PULSE 61; RESP 16; TEMP 36.8; O2SAT 96
[2023-08-02 06:16] VITALS: RESP 17
--- NOTE | 2023-08-02 07:25 | PC.NURSE ---
PT IS SLEEPING RESP EVEN AND UNLABORED. WILL CONTINUE TO MONITOR.
[2023-08-02 07:35] VITALS: RESP 14
[2023-08-02 09:25] VITALS: BP 134/77; PULSE 50; TEMP 36.2; O2SAT 98
--- NOTE | 2023-08-02 10:45 | PC.NURSE ---
PSYCH MD (BRITT) AT BEDSIDE. PT AWARE OF PLAN OF CARE.
--- NOTE | 2023-08-02 12:51 | PHA.MEDREC ---
Pharmacy Consult ? Medication Reconciliation Pharmacy has reviewed the medication reconciliation completed by Thu. Patient just discharge 07/28 from [facility] inpatient psych. Added lithium 600 daily based on discharge summary.. Funmi Manning, DarwinD
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
[2023-08-02] MEDS: Lithium Carbonate 300 MG CAPSULE 600 MG PO (16:29)
[2023-08-02 17:34] VITALS: BMI 24.9
[2023-08-02 17:36] VITALS: BP 133/68; PULSE 71; RESP 18; TEMP 36.7; O2SAT 98
[2023-08-02 19:50] VITALS: BP 104/60; PULSE 77; RESP 16; TEMP 36.4; O2SAT 97
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
[2023-08-02] MEDS: HaloperidoL 5 MG TABLET 10 MG PO (22:50)
[2023-08-02] MEDS: Benztropine Mesylate 1 MG TABLET PO (22:50)
[2023-08-03 07:55] VITALS: BP 111/59; PULSE 66; RESP 16; TEMP 36.4; O2SAT 99
[2023-08-03] MEDS: Benztropine Mesylate 1 MG TABLET PO (08:04)
[2023-08-03] MEDS: HaloperidoL 5 MG TABLET 10 MG PO (08:04)
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
[2023-08-03 19:45] VITALS: BP 141/62; PULSE 64; RESP 18; TEMP 36.4; O2SAT 99
[2023-08-04] MEDS: Mineral Oil/Petrolatum,White 106 GM Tube 1 APPL TOPICAL (08:13)
[2023-08-04 08:47] VITALS: BP 119/73; PULSE 77; RESP 14; TEMP 36.4; O2SAT 99
--- NOTE | 2023-08-04 14:24 | HO.PSYCHPN ---
Subjective Subjective Date of Service: 08/04/23 Reason For Visit: Psychosis Interim History: calm, cooperative. lying in bed resting. asks about discharge, MD suggests plan to discharge him wednesday, pt in agreement. per staff, flat, guarded, withdrawn. attending groups. took haldol yesterday morning, nothing since. not attending groups. Mental Status Exam Mental Status Exam Narrative: dressed in hospital attire, adequately groomed. generally cooperative. mild PMR. speech flat, monotone. decr amount, decr rate. incr ARTHUR. thoughts linear and illogical. affect constricted, hypo-intense, non-labile. mood euthymic. no SI/SIBI/HI/AVH expressed. Diagnostics Vital Signs (24Hr): Vital Signs - 24 hr 08/03/23 19:45 08/04/23 08:47 Temperature 97.5 F 97.5 F Pulse Rate 64 77 Respiratory Rate 18 14 Blood Pressure 141/62 H 119/73 Pulse Oximetry 99 99 Oxygen Delivery Method Room Air Room Air BMI result Body Mass Index 24.9 Labs 08/01/23 05:00 08/01/23 05:00 Medications Medications Current Medications Acetaminophen (Acetaminophen 325 Mg Tablet) 650 mg PO Q6H PRN PRN Reason: Headache/Pain Mild Scale (1-3) Al Hydroxide/Mg Hydroxide (Magnesium Hydrox/Alum Hydrox 30 Ml Oral.Susp) 30 ml PO Q6H PRN PRN Reason: Heartburn/Nausea Benztropine Mesylate (Benztropine Mesylate 1 Mg Tablet) 1 mg PO BID [facility] Last Admin: 08/04/23 08:00 Dose: Not Given Haloperidol (Haloperidol 5 Mg Tablet) 10 mg PO BID [facility] Last Admin: 08/04/23 08:00 Dose: Not Given Hydroxyzine HCl (Hydroxyzine Hcl 25 Mg Tablet) 25 mg PO QID PRN PRN Reason: Anxiety [place] Carbonate ([place] Carbonate 300 Mg Capsule) 600 mg PO DAILY@0900 [facility] Last Admin: 08/04/23 08:00 Dose: Not Given [place] Carbonate ([place] Carbonate Er 450 Mg Tablet.Er) 900 mg PO BEDTIME [facility] Last Admin: 08/03/23 21:37 Dose: Not Given Magnesium Hydroxide (Milk Of Magnesia 30 Ml Oral.Susp) 30 ml PO DAILY PRN PRN Reason: Constipation Multi-Ingred Cream/Lotion/Oil/Oint (Mineral Oil/Petrolatum,White 106 Gm Tube) 1 appl TOPICAL BID ANJUM; Protocol Last Admin: 08/04/23 08:13 Dose: 1 appl Olanzapine (Olanzapine 10 Mg Tablet) 10 mg PO BID PRN PRN Reason: Anxiety Paliperidone Palmitate (Paliperidone Palmitate 234 Mg/1.5 Ml Syringe) 234 mg IM Q28D ANJUM Last Admin: 08/03/23 12:07 Dose: Not Given Trazodone HCl (Trazodone Hcl 50 Mg Tablet) 50 mg PO BEDTIME MRX1 PRN PRN Reason: Insomnia Allergies Allergies Allergy/AdvReac Type Severity Reaction Status Date / Time bupropion [From Wellbutrin] Allergy Mild CAUSES Verified 08/01/23 14:12 SWOLLEN HEAD tetracycline [Tetracycline] Allergy Mild UNKNOWN Verified 08/01/23 14:12 trifluoperazine Allergy Mild UNKNOWN Verified 08/01/23 14:12 [From Stelazine] clozapine [From Clozaril] AdvReac Mild SEIZURES,NE Verified 08/01/23 14:12 UTROPENIA Assessment & Plan Assessment & Plan (1) Schizoaffective disorder: Status: Acute Code(s): F25.9 - Schizoaffective disorder, unspecified Plan offer meds. pt took lithium and haldol first day, then haldol only, then nothing. planning to discharge wednesday. Reason for continued inpatient stay Substantial Risk for: harm to self, harm to others, inability to function and rapid decompensation Time Spent With Patient Time: Total time managing care of this patient today ____ minutes.
[2023-08-05 07:40] VITALS: BP 118/67; PULSE 80; RESP 16; TEMP 36.7; O2SAT 97
[2023-08-05 10:41] VITALS: BMI 25.5
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
[2023-08-05 20:31] VITALS: RESP 16
== END 2023-08-06 11:00 | disposition home or self-care (01) | DRG 885 ==
LOC: HO.ED 08-02 13:51 → HO.PADLT16 08-02 14:17
PROVIDERS: Admitting Provider Psychiatry & Neurology Psychiatry; Emergency Provider Internal Medicine; Visit Provider Psychiatry & Neurology Psychiatry
DX: F25.0 Schizoaffective disorder, bipolar type (principal); R45.851 Suicidal ideations; Z91.148 Patient's other noncompliance with medication regimen for other reason; Z20.822 Contact with and (suspected) exposure to COVID-19; Z79.899 Other long term (current) drug therapy
CPT/HCPCS: 36415; 80053; 80178; 80307; 81003; 85025; 87635; 93005; 99285; S9485

== ENCOUNTER → 2023-08-01 17:20 | Outpatient (BNV) | payer OTHER, SELFPAY | PROVIDERS: Admitting Provider Psychiatry & Neurology Psychiatry; Emergency Provider Internal Medicine; Visit Provider Internal Medicine Cardiovascular Disease | DX: F25.9 Schizoaffective disorder, unspecified (principal) | CPT/HCPCS: 93010 ==

== ENCOUNTER → 2023-08-02 13:59 | Outpatient (BNV) | payer OTHER, SELFPAY | PROVIDERS: Admitting Provider Psychiatry & Neurology Psychiatry; Emergency Provider Internal Medicine; Visit Provider Psychiatry & Neurology Psychiatry | DX: F25.0 Schizoaffective disorder, bipolar type (principal) | CPT/HCPCS: 90792; 99231; 99238 ==

== ENCOUNTER 2024-01-21 13:55 | Inpatient (IN) | payer OTHER, SELFPAY ==
--- NOTE | ~2024-01-21 | CT_ITS ---
EXAMINATION: CT HEAD WITHOUT CONTRAST CLINICAL INFORMATION: Vertigo, pain, balance issues. COMPARISON: CT head 07/03/2023. CT head 12/14/2012. MRI brain 12/14/2022. TECHNIQUE: Contiguous axial imaging was performed from the skull base to vertex without intravenous administration of contrast. This CT examination was performed using dose optimization techniques as appropriate, variously including the following: *Automated exposure control *Adjustment of mA and/or kV according to patient size (this includes techniques or standardized protocols for targeted exams where dose is matched to indication/reason for exam; i.e. extremities or head) *Use of iterative reconstruction technique DLP: 1002 mGy-cm FINDINGS: 1.2 cm lesion with dense peripheral calcification is again noted within the right lateral aspect of the fourth ventricle directed towards the right foramen of Luschka unchanged compared with 07/03/2023 and 07/16/2022. No intracranial hemorrhage or acute infarcts noted. Minimal diffuse commensurate prominence of ventricles and sulci is unchanged compared with 07/03/2023. No extracranial soft tissue inflammatory changes noted. The orbits and globes are normal in appearance. A 1.0 cm rounded density most consistent a mucosal retention cyst is noted within the right maxillary sinus. No mastoid or middle ear cavity effusions visualized. CT/CT head/brain wo IV con IMPRESSION: *No acute intracranial abnormalities. *Unchanged 1.2 cm benign-appearing calcified focus within the fourth ventricle stable compared with 12/14/2022. No associated hydrocephalus. This finding may represent calcified choroid plexus cyst or choroid plexus papilloma.
[2024-01-21 14:08] VITALS: BP 134/80; PULSE 66; O2SAT 98
[2024-01-21 14:19] VITALS: BP 128/78; PULSE 78; RESP 16; TEMP 36.7; O2SAT 98; BMI 23.9
--- NOTE | 2024-01-21 14:24 | ED.PSYCH ---
HPI - Psych General Chief Complaint: Psychiatric Symptoms Stated Complaint: PANIC ATTACK Time Seen by Provider: 01/21/24 14:04 Source: patient, EMS and RN notes reviewed Mode of arrival: EMS Limitations: no limitations History of Present Illness ED Provider: terri LINDSAY Narrative: Patient is a 58-year-old male with history of schizoaffective disorder, bipolar type presenting to the emergency department after having a panic attack while driving home from the store with his girlfriend prior to arrival. Reports he has had increased amount of panic attacks recently. Denies recent medication changes or new medications. Denies current chest pain or shortness of breath. States he is hearing voices, repeatedly hearing the word ?beautiful admits to suicidal thoughts with plan to stab himself in the heart but denies any homicidal ideation. Denies visual hallucinations. complaint: suicidal ideation and anxiety History of same: Yes Associated psychiatric symptoms: depression, suicidal ideation and auditory hallucinations Treatments prior to arrival: none If self harm: admits thoughts of self harm and has plan Related Data Home Medications ?Medication ?Instructions ?Recorded ?Confirmed lithium carbonate 300 mg capsule 300 mg PO BID 08/02/23 08/02/23 benztropine 1 mg tablet 1 mg PO DAILY 01/21/24 haloperidol decanoate 100 mg/mL 100 mg IM Q4W 01/21/24 intramuscular solution Allergies Allergy/AdvReac Type Severity Reaction Status Date / Time bupropion [From Wellbutrin] Allergy Mild CAUSES Verified 01/21/24 14:21 SWOLLEN HEAD tetracycline [Tetracycline] Allergy Mild UNKNOWN Verified 01/21/24 14:21 trifluoperazine Allergy Mild UNKNOWN Verified 01/21/24 14:21 [From Stelazine] clozapine [From Clozaril] AdvReac Mild SEIZURES,NE Verified 01/21/24 14:21 UTROPENIA Review of Systems Review of Systems: As per HPI. Yes all other systems are reviewed and are negative Constitutional: Constitutional: Reports as per HPI REPLACED BY [facility] Past Medical History Medical History Schizoaffective disorder, bipolar type Social History Social History Household Members: Family Household Members Other:: Father , gf. Father in [place] at this time. Housing: Apartment Housing Other:: [facility] Do you presently have visiting nurse or other home services: Yes (Twice a day nurses for medication.) Unable to assess alcohol history related to: Unable to respond Alcohol intake: unknown Comment: 1:1 sitter Patient Tobacco Use Status: Never used Tobacco Smoked in Last 30 Days: No e-Cigarette/Vaping Use: Never Used Patient Interested in Nicotine Replacement: No Patient Given Instructions on How to Stop Smoking: No Second Hand Smoke Exposure: No Use of substances other than those prescribed or required for medical reasons: No Substance Use Type: Caffiene Currently Displaying Signs/Symptoms of Drug Intoxication Withdrawal: No Any prior treatment program specific to substance use: No Have you been hit, kicked, punched, or otherwise hurt by someone within the past year? If so, by whom?: No Do you feel safe in your current relationship?: Yes Is there a partner from a previous relationship who is making you feel unsafe now?: No Are you made to feel afraid or neglected: No Advance Directives: No Advance Directives Information Provided: No Do you have thoughts of harming others: None Do you have a plan to hurt others: No Plan Recently lost weight without trying: No Nutrition Risks: No Nutritional Risk Poor oral hygiene: No service: Yes ([place] for 5-6 weeks.) Sexual orientation: Straight/Heterosexual Physical Exam Vital Signs: Vital Signs: Last Vital Signs Temp 97.8 F 01/25/24 08:00 Pulse 64 01/25/24 08:34 Resp 16 01/24/24 08:00 BP 127/76 01/25/24 08:34 Pulse Ox 98 01/25/24 08:34 O2 Del Method Room Air 01/25/24 08:34 BMI result Body Mass Index 23.9 Vital signs have been reviewed and appear to be correct. Blood pressure normal. Heart rate normal. Respiratory rate normal. Temperature normal. Oxygen saturation normal. Const: General: cooperative, healthy appearing and no acute distress Orientation/consciousness: oriented to person, oriented to place, oriented to time and patient oriented x3 Limitations: no limitations HEENT: Head: Yes normocephalic and Yes atraumatic Ears: external ears normal General nose exam: Normal external nose present Face and sinus: Yes face symmetric Mouth: oropharynx normal and moist mucous membranes Throat: Yes uvula midline Eyes: Pupils: Equal, round and reactive pupils present Neck: Neck: Yes normal visual inspection and Yes supple Resp: Effort & Inspection: normal respiratory effort and able to speak in complete sentences Auscultation: clear to auscultation bilaterally Cardio: Rate: regular rate Rhythm: regular rhythm Heart sounds: S1 normal heart sound present and S2 normal heart sound present GI: Palpation (GI): Soft to palpation and nontender Auscultation: normoactive bowel sounds : General: Yes no CVA tenderness Back/Spine/Pelvis: Back: no CVA tenderness Skin: General skin exam: elasticity normal and turgor normal Neuro: General: oriented to person, oriented to place, oriented to time, patient oriented x3, moves all extremities, no focal motor deficits and CN's II-XI intact bilaterally Cranial nerves: Yes Equal, round and reactive pupils present Cognition (Neuro): normal cognition Extrem: General: Yes full ROM, Yes no pedal edema and Yes no calf tenderness Psych: Mental Status: mental status grossly normal Affect: Blunted affect present Attitude: cooperative Thought process: Normal thought process present Thought content: Suicidality present, no homicidality and Hallucination(s) present auditory; not visual and not tactile Insight: Fair insight present (Psych) Judgement: Fair judgement present (Psych) Course Reevaluation(s) Reevaluation #1: Care team came and assessed patient, he qualifies for inpatient psychiatric care. Will be admitted. Observation care revealed that the patient does meet medical psychiatric necessity for hospitalization. Final disposition discussed with the patient. The patient completed observation care at 05:36PM. Transfer of care initiated to the inpatient psychiatric team. Time: 17:34 Medications Administered Generic Name Dose Route Start Last Admin Trade Name Sanket PRN Reason Stop Dose Admin Acetaminophen 650 mg 01/21/24 19:16 01/23/24 09:18 Acetaminophen 325 Mg Tablet PO 650 mg Q6H PRN Administration Headache/Pain Mild Scale (1-3) Benztropine Mesylate 1 mg 01/22/24 10:05 01/25/24 08:35 Benztropine Mesylate 1 Mg Tablet PO 1 mg BID ANJUM Administration [place] Carbonate 300 mg 01/22/24 21:00 01/24/24 21:07 [place] Carbonate 300 Mg Tablet PO 300 mg BEDTIME ANJUM Administration [place] Carbonate 300 mg 01/23/24 09:00 08/06/24 08:35 [place] Carbonate 300 Mg Capsule PO 300 mg DAILY ANJUM Administration Olanzapine 5 mg 01/22/24 10:04 01/23/24 09:18 Olanzapine 5 Mg Tablet PO 5 mg Q4H PRN Administration psychosis agitation Olanzapine 10 mg 01/22/24 21:00 01/24/24 21:07 Olanzapine 10 Mg Tablet PO 10 mg BEDTIME ANJUM Administration Trazodone HCl 50 mg 01/21/24 19:16 01/24/24 21:07 Trazodone Hcl 50 Mg Tablet PO 50 mg BEDTIME MRX1 PRN Administration Insomnia Discontinued Medications Generic Name Dose Route Start Last Admin Trade Name Freq PRN Reason Stop Dose Admin Haloperidol 10 mg 01/22/24 10:05 01/22/24 12:06 Haloperidol 5 Mg Tablet PO Not Given BID ANJUM [place] Carbonate 600 mg 01/22/24 10:05 01/22/24 12:04 [place] Carbonate 300 Mg Capsule PO 600 mg DAILY ANJUM Administration Nicotine 14 mg 01/22/24 09:00 01/22/24 09:21 Nicotine 14 Mg Patch.Td24 TRANSDERMA Not Given DAILY ANJUM Medical Decision Making Medical Decision Making [facility] Narrative: Patient is a 58-year-old male with history of schizoaffective disorder, bipolar type presenting to the emergency department after having a panic attack while driving home from the store with his girlfriend prior to arrival. On exam patient is awake, A+Ox3, VS WNL, afebrile, normal neurological exam without focal deficits, physical exam findings as above. Given reported symptoms and physical exam findings, initial differential includes acute anxiety, depression, suicidal ideation. Labs within normal limits. [place] level subtherapeutic. No evidence of infection on urinalysis. Urine drug screen and ethanol negative. Will medically clear patient at 4:[address] on physician observation for care team evaluation. Differential Diagnosis Differential Diagnoses: The differential diagnosis associated with the presentation includes [facility] Admission/Observation Consideration of admission/observation: Escalation of care including admission/observation considered Consult Healthcare Provider Management of the patient was discussed with: Behavioral Health Provider Lab Data [facility] Lab Attestation statement: I reviewed the patient's lab results. [facility] per [facility] 01/21/24 14:41 01/22/24 07:55 Labs: Lab Results 01/21/24 Range/Units 14:41 WBC 7.7 (4.8-10.8) X10*3/uL RBC 4.82 D (4.60-5.80) X10*6/uL Hgb 15.6 D (14.0-18.0) g/dl Hct 43.6 D (42.0-52.0) % MCV 90.5 (80.0-98.0) fL MCH 32.4 (27.0-33.0) pg MCHC 35.8 (31.0-36.0) g/dl RDW 12.7 (11.0-16.0) % Plt Count 263 (160-400) X10*3/uL MPV 10.2 (9.4-12.4) fL Immature Gran % (Auto) 0.1 (0.0-0.4) % Neut % (Auto) 70.4 (45-73) % Lymph % (Auto) 21.6 (20-40) % [place] % (Auto) 5.6 (2-11) % Eos % (Auto) 1.4 (0-4) % Baso % (Auto) 0.9 (0-2) % Lymph # (Auto) 1.7 (1.2-4.9) X10*3/uL [place] # (Auto) 0.4 (0.1-1.2) X10*3/uL Eos # (Auto) 0.1 (0.0-0.4) X10*3/uL Baso # (Auto) 0.1 (0.0-0.2) X10*3/uL Abs Immat Gran (auto) 0.01 (0.00-0.03) X10*3/uL Absolute Neuts (auto) 5.4 (2.0-8.3) x10*3/uL Absolute Nucleated RBC 0.000 (0.0-0.012) X10*3/uL Nucleated RBC % (auto) 0.0 (0.0-0.2) /100WBC Sodium 137 (135-145) mmol/L Potassium 4.0 (3.3-5.1) mmol/L Chloride 105 (96-108) mmol/L Carbon Dioxide 23 (22-29) mmol/L Anion Gap 13 (12-20) BUN 10 (9-16) mg/dL Creatinine 0.91 (0.5-1.4) mg/dL Estim Creat Clear Calc 97.5 Estimated GFR > 60 Random Glucose 100 (60-115) mg/dL Calcium 9.6 (8.4-10.2) mg/dL Total Bilirubin 0.7 (0.0-1.0) mg/dL AST 13 (5-37) U/L ALT 10 (0-40) U/L Alkaline Phosphatase 49 (39-117) U/L Total Protein 7.5 (6.5-8.0) g/dL Albumin 4.7 (3.5-5.0) g/dL Urine Color Yellow Urine Appearance Clear Urine pH 6.5 (5.0-9.0) Ur Specific [place] <= 1.005 (1.005-1.025) Urine Protein Negative (Neg-Trace) mg/dL Urine Glucose (UA) Negative (Negative) mg/dL Urine Ketones Negative (Negative) mg/dL Urine Blood Negative (Negative) Urine Nitrite Negative (Negative) Ur Leukocyte Esterase Negative (Negative) Urine Opiates Screen Not Detected (Not Detect) Ur Buprenorphine Scrn Not Detected (Not Detect) ng/mL Ur Oxycodone Screen Not Detected (Not Detect) ng/mL Urine Methadone Screen Not Detected (Not Detect) ng/mL Urine Fentanyl Screen Not Detected (Not Detect) Ur Barbiturates Screen Not Detected (Not Detect) Ur Phencyclidine Scrn Not Detected (Not Detect) Ur Amphetamines Screen Not Detected (Not Detect) U Benzodiazepines Scrn Not Detected (Not Detect) [place] 0.37 L (0.60-1.20) mmol/L Urine Cocaine Screen Not Detected (Not Detect) U Marijuana (THC) Screen Not Detected (Not Detect) Ethyl Alcohol < 10 mg/dL External Record Review External record reviewed: Inpatient record, Office record and Outpatient record Discharge Plan Discharge Clinical Impression: Depression, Suicidal ideation, Acute anxiety Patient Disposition: Admitted As Inpatient Interventions: Admission Worksheet (ED) Last Done: 01/21/24 22:06 Discharge Date/Time: 01/21/24 22:06
--- NOTE | 2024-01-21 14:28 | ECG_ITS ---
Test Reason : chest tightness Blood Pressure : / mmHG Vent. Rate : 056 BPM Atrial Rate : 056 BPM P-R Int : 168 ms QRS Dur : 118 ms QT Int : 426 ms P-R-T Axes : 063 025 037 degrees QTc Int : 411 ms Sinus bradycardia Non-specific intra-ventricular conduction delay Borderline ECG When compared with ECG of 01-AUG-2023 17:20, No significant change was found Referred By: Risa Jarrett Electronically Signed By:Quintin Coulter
--- NOTE | 2024-01-21 14:35 | PC.NURSE ---
patient presented to Ed via ems after having a panic attack, patient endorses auditory hallucinations and SI with plan. patient changed into hospital attfracisco lambert 1:1. patient given lunch
[2024-01-21 14:47] LABS: MANUAL DIFF FLAG NO
[2024-01-21 14:49] LABS: Basophils Absolute Auto 0.1 X10*3/uL (0.0-0.2); Basophils Percent Auto 0.9 % (0-2); Eosinophils Absolute Auto 0.1 X10*3/uL (0.0-0.4); Eosinophils Percent Auto 1.4 % (0-4); Hematocrit 43.6 % (42.0-52.0); Hemoglobin 15.6 g/dl (14.0-18.0); Imm Gran Abs Auto 0.01 X10*3/uL (0.00-0.03); Imm Gran Pct Auto 0.1 % (0.0-0.4); Lymphocytes Absolute Auto 1.7 X10*3/uL (1.2-4.9); Lymphocytes Percent Auto 21.6 % (20-40); Mean Corpuscular HGB Conc 35.8 g/dl (31.0-36.0); Mean Corpuscular Hemoglobin 32.4 pg (27.0-33.0); Mean Corpuscular Volume 90.5 fL (80.0-98.0); Mean Platelet Volume 10.2 fL (9.4-12.4); Monocytes Absolute Auto 0.4 X10*3/uL (0.1-1.2); Monocytes Percent Auto 5.6 % (2-11); Neutrophils Absolute Auto 5.4 x10*3/uL (2.0-8.3); Neutrophils Percent Auto 70.4 % (45-73); Platelet Count 263 X10*3/uL (160-400); Red Blood Count 4.82 X10*6/uL (4.60-5.80); Red Cell Distribution Width 12.7 % (11.0-16.0); White Blood Count 7.7 X10*3/uL (4.8-10.8)
[2024-01-21 14:50] LABS: Appearance Urine Clear; Color Urine Yellow; Glucose Urine UA Negative (Negative); Leukocyte Esterase Urine Negative (Negative); Nitrite Urine Negative (Negative); PH 6.5 (5.0-9.0); Specific Gravity - Urine <= 1.005 (1.005-1.025); Urine Blood Negative (Negative); Urine Ketones Negative (Negative); Urine Protein Negative (Neg-Trace)
[2024-01-21 14:56] LABS: Lithium 0.37 mmol/L (0.60-1.20)
[2024-01-21 14:59] LABS: Amphetamine Screen Urine Not Detected (Not Detect); Barbiturates, Urine Not Detected (Not Detect); Benzodiazepines Screen Urine Not Detected (Not Detect); Buprenorphine Scr Not Detected (Not Detect); Cannabinoid Screen Urine Not Detected (Not Detect); Cocaine Screen Urine Not Detected (Not Detect); Fentanyl, urine Not Detected (Not Detect); Methadone Screen, Urine Not Detected (Not Detect); Opiate Screen Urine Not Detected (Not Detect); Oxycodone Screen Urine Not Detected (Not Detect); Phencyclidine Screen Urine Not Detected (Not Detect)
[2024-01-21 15:05] LABS: Alanine Aminotransferase 10 U/L (0-40); Albumin Level 4.7 g/dL (3.5-5.0); Alkaline Phosphatase 49 U/L (39-117); Anion Gap 13 (12-20); Aspartate Amino Transferase 13 U/L (5-37); Bilirubin Total 0.7 mg/dL (0.0-1.0); Blood Urea Nitrogen 10 mg/dL (9-16); Calcium 9.6 mg/dL (8.4-10.2); Carbon Dioxide 23 mmol/L (22-29); Chloride 105 mmol/L (96-108); Creatinine Clr Calc Pharmacy 97.5; Estimated Glomerular Filt Rate > 60; Ethanol < 10 mg/dL; Glucose Random 100 mg/dL (60-115); Sodium 137 mmol/L (135-145); Total Protein 7.5 g/dL (6.5-8.0)
--- NOTE | 2024-01-21 16:58 | MHC.CARE ---
Abstract Maker spoke with significant other, Amy who was with patient earlier today. She states that while shopping patient started to 'have a panic attack and got a really bad headache.' She states that he will at times report feelings of SI 'because it will end my suffering and pain.' Amy does not believe patient would follow-through with a plan to harm himself and he just says that because he 'can't deal with his head the way it is.' She also reports that patient is compliant with his medications but is 'tired' of the voices. At last [facility] admission he was prescribed 2MG Haldol PO but it has since been discontinued per Amy's report under supervision of his physician. She does not believe patient would hurt himself but rather he is just frustrated about his 'head.'
--- NOTE | 2024-01-21 19:11 | PHA.MEDREC ---
Addendum entered by John Carranza RP 01/21/24 19:20: MED REC CHECKED BY [facility] ED Original Note: Pharmacy Consult ? Medication Reconciliation Pharmacy has completed the medication reconciliation. Confirmed medications with patient. Patient states he got his Haloperidol injection this past Wednesday. Also noticed there were claims for Haloperidol 2mg tab but patient never confirmed that. He was able to confirm he took his medications yesterday.
[2024-01-21 20:00] VITALS: BP 114/72; PULSE 68; RESP 18; TEMP 36.1; O2SAT 99
--- NOTE | 2024-01-22 05:47 | PC.ADMIT ---
Eriberto is a 58 male who was admitted to from [facility] in the ED. He was admitted for a recent increase in panic attacks, the most recent of which happened on 01/21/2024 while he was driving. He has a known history of Schizoaffective Disorder Bipolar Type. On admission a skin check was done which was unremarkable except for several skin tags and a large cystic type lesion on his back. After the skin check he was oriented to and given some cereal. He was very cooperative with admission questions. During the admission process he was noted to have a very blunted affect and appeared to be thought blocking at times though eventually he was able to answer all questions. At one point he did smile spontaneously. He admits a history of auditory hallucinations telling him to kill himself by stabbing himself in the heart with a knife. He denies any homicidal ideation and stated I would never hurt another human being. I would kill myself first. He also said that he sometimes does have visual hallucinations. He denied any history of physical or sexual trauma. He stated that he does have visiting nurses twice a day to administer his medications at home. He said that he lives in an in-law apartment in his father's house. He has and is compliant with psychiatric services and therapy through [facility] on [facility] in [place], [place].
[2024-01-22 08:00] VITALS: BP 117/64; PULSE 60; RESP 16; TEMP 36.4; O2SAT 99
[2024-01-22 08:35] LABS: Estimated Average Glucose 91 mg/dL; Hemoglobin A1c % 4.8 % (<6.0)
[2024-01-22 08:40] LABS: Alanine Aminotransferase 10 U/L (0-40); Albumin Level 4.1 g/dL (3.5-5.0); Alkaline Phosphatase 45 U/L (39-117); Anion Gap 13 (12-20); Aspartate Amino Transferase 12 U/L (5-37); Bilirubin Total 0.2 mg/dL (0.0-1.0); Blood Urea Nitrogen 15 mg/dL (9-16); Calcium 9.4 mg/dL (8.4-10.2); Carbon Dioxide 23 mmol/L (22-29); Chloride 109 mmol/L (96-108); Cholesterol 128 mg/dL (<200); Creatinine Clr Calc Pharmacy 108.2; Estimated Glomerular Filt Rate > 60; Glucose Fasting 96 mg/dL (60-99); HDL Cholesterol 59 mg/dL (>40); LDL Cholesterol Calculated 42 mg/dL (<100); Potassium 4.4 mmol/L (3.3-5.1); Sodium 141 mmol/L (135-145); Total Protein 6.8 g/dL (6.5-8.0); Triglycerides 139 mg/dL (<150)
[2024-01-22] MEDS: Acetaminophen 325 MG TABLET 650 MG PO (09:21)
--- NOTE | 2024-01-22 09:38 | P.HPPS_ITS ---
[facility] Date of Service: 01/22/24 Chief Complaint: Psychosis Sources of Information: patient interviewed and chart reviewed HPI Subjective Notes: Conditional Voluntary Narrative: met with patient. Discussed with Nursing. Reported having a panic attack driving to the store with his girlfriend. Reports this is related to his manic depression in his own words. Been depressed for a number of months. Hearing voices all the time talking about his medications, what he is thinking. It did not appear to be command in nature. Reports that his head has been made stiff from vitamins over the years. Also feels this is related to Haldol. No substance issues. Did report having suicidal thoughts to stab himself. No manic features. No overt paranoia. Regarding medications has a clear understanding of his meds and reports a are Haldol long-acting injectable 100 mg every 2 weeks last received 5 days ago. Reports outpatient provider suggested Haldol 2 mg as needed but reports he does not want to take this as he reports feeling stiff. No longer on Invega Sustenna injection. [place] is 300 mg twice daily. Cogentin 1 mg twice daily. Did discuss during last admission being on olanzapine as needed, higher doses of lithium and hydroxyzine p.r.n.. Patient agreed to increase lithium to total daily dose of 900 mg. Olanzapine scheduled and as needed. Past Psychiatric History: -Has OP psych services at [facility] -Hx of multiple IPLOC -Denies hx of suicide attempts or SIB -Past meds: lamictal, bupropion XL (?makes you numb?), Stelazine (took at age 14, ?burned my skull and my bones?), clozapine (says he had a seizure on higher dose) Medical Evaluation Reviewed: Yes [facility] Medical History Schizoaffective disorder, bipolar type Family History: father with depression Social History: -Pt born and raised in [place], has two brothers, mother . -Lives with his gf for over 22 years, not , no children. -Unemployed, has SSDI. In the past he worked at [employer] and [employer], [employer]. -Hx of being in [place] as young adult Trauma History: -Not discussed Diagnostics Vital Signs (24Hr): Vital Signs - 24 hr 01/21/24 14:19 01/21/24 20:00 Temperature 98.1 F 97.0 F Pulse Rate 78 68 Respiratory Rate 16 18 Blood Pressure 128/78 114/72 Pulse Oximetry 98 99 Oxygen Delivery Method Room Air Room Air BMI result Body Mass Index 23.9 Labs 01/21/24 14:41 01/22/24 07:55 Labs: Laboratory Results - last 48 hr 01/21/24 01/22/24 14:41 07:55 WBC 7.7 RBC 4.82 D Hgb 15.6 D Hct 43.6 D MCV 90.5 MCH 32.4 MCHC 35.8 RDW 12.7 Plt Count 263 MPV 10.2 Immature Gran % (Auto) 0.1 Neut % (Auto) 70.4 Lymph % (Auto) 21.6 [place] % (Auto) 5.6 Eos % (Auto) 1.4 Baso % (Auto) 0.9 Lymph # (Auto) 1.7 [place] # (Auto) 0.4 Eos # (Auto) 0.1 Baso # (Auto) 0.1 Abs Immat Gran (auto) 0.01 Absolute Neuts (auto) 5.4 Absolute Nucleated RBC 0.000 Nucleated RBC % (auto) 0.0 Sodium 137 141 Potassium 4.0 4.4 Chloride 105 109 H Carbon Dioxide 23 23 Anion Gap 13 13 BUN 10 15 Creatinine 0.91 0.82 Estim Creat Clear Calc 97.5 108.2 Estimated GFR > 60 > 60 Random Glucose 100 Fasting Glucose 96 Estimat Average Glucose 91 Hemoglobin A1c % 4.8 Calcium 9.6 9.4 Total Bilirubin 0.7 0.2 AST 13 12 ALT 10 10 Alkaline Phosphatase 49 45 Total Protein 7.5 6.8 Albumin 4.7 4.1 Triglycerides 139 Cholesterol 128 LDL Cholesterol, Calc 42 HDL Cholesterol 59 Urine Color Yellow Urine Appearance Clear Urine pH 6.5 Ur Specific [place] <= 1.005 Urine Protein Negative Urine Glucose (UA) Negative Urine Ketones Negative Urine Blood Negative Urine Nitrite Negative Ur Leukocyte Esterase Negative Urine Opiates Screen Not Detected Ur Buprenorphine Scrn Not Detected Ur Oxycodone Screen Not Detected Urine Methadone Screen Not Detected Urine Fentanyl Screen Not Detected Ur Barbiturates Screen Not Detected Ur Phencyclidine Scrn Not Detected Ur Amphetamines Screen Not Detected U Benzodiazepines Scrn Not Detected [place] 0.37 L Urine Cocaine Screen Not Detected U Marijuana (THC) Screen Not Detected Ethyl Alcohol < 10 Meds/Allergies Meds Home Medications ?Medication ?Instructions ?Recorded ?Confirmed ?Type lithium carbonate 300 mg capsule 300 mg PO BID 08/02/23 08/02/23 History benztropine 1 mg tablet 1 mg PO DAILY 01/21/24 History haloperidol decanoate 100 mg/mL 100 mg IM Q4W 01/21/24 History intramuscular solution Allergies Allergies Allergy/AdvReac Type Severity Reaction Status Date / Time bupropion [From Wellbutrin] Allergy Mild CAUSES Verified 01/21/24 14:21 SWOLLEN HEAD tetracycline [Tetracycline] Allergy Mild UNKNOWN Verified 01/21/24 14:21 trifluoperazine Allergy Mild UNKNOWN Verified 01/21/24 14:21 [From Stelazine] clozapine [From Clozaril] AdvReac Mild SEIZURES,NE Verified 01/21/24 14:21 UTROPENIA Mental Status Exam Mental Status Exam Narrative: in room. Pleasant. Does have some difficulty engaging as he is anxious and appears internally preoccupied. feels safe in the hospital. Denies current SI. No HI. No agitation. Does endorse hearing voices that are referential in nature. Insight and judgment fair Assessment & Plan Assessment & Plan (1) Schizoaffective disorder: Status: Acute Code(s): F25.9 - Schizoaffective disorder, unspecified Assessment and Plan: Regarding medications has a clear understanding of his meds and reports a are Haldol long-acting injectable 100 mg every 2 weeks last received 5 days ago. Reports outpatient provider suggested Haldol 2 mg as needed but reports he does not want to take this as he reports feeling stiff. No longer on Invega Sustenna injection. [place] is 300 mg twice daily. Cogentin 1 mg twice daily. Did discuss during last admission being on olanzapine as needed, higher doses of lithium and hydroxyzine p.r.n.. Patient agreed to increase lithium to total daily dose of 900 mg. Olanzapine scheduled and as needed. Patient educated on: diagnosis and medication risk/benefits Reason for continued inpatient stay Substantial Risk for: harm to self and inability to function Statement Statement: I have reviewed the history and physical and performed a pertinent examination on my patient. No changes have occurred unless specified. If the History and Physical was not performed prior to admission, the Hospitalist's service will be consulted for completing the admission physical. Time Spent With Patient Time: Total time managing care of this patient today ____ minutes.
--- NOTE | 2024-01-22 11:00 | MHC.CARE ---
Pt's assessment faxed to [facility] after securing insurance Authorization.
[2024-01-22] MEDS: Lithium Carbonate 300 MG CAPSULE 600 MG PO (12:04)
[2024-01-22] MEDS: Benztropine Mesylate 1 MG TABLET PO ×2 (12:05→20:11)
[2024-01-22 20:00] VITALS: BP 132/74; PULSE 100; RESP 16; TEMP 36.1; O2SAT 96
[2024-01-22] MEDS: Lithium Carbonate 300 MG TABLET PO (20:11)
[2024-01-22] MEDS: OLANZapine 10 MG TABLET PO (20:11)
[2024-01-22] MEDS: traZODone HCL 50 MG TABLET PO ×2 (20:11→21:37)
[2024-01-23 08:00] VITALS: BP 124/70; PULSE 55; RESP 16; TEMP 36.4; O2SAT 97
--- NOTE | 2024-01-23 08:41 | HO.PSYCHPN ---
Subjective Subjective Date of Service: 01/23/24 Reason For Visit: Psychosis Interim History: Met with patient. Discussed with nursing. Overall reports things are going okay today. Still feels down and anxious. Denies SI. Still hallucinations. Slept okay. Thankfully he is not receiving additional Haldol orally. Hopeful that olanzapine will be helpful. Aware we will get a lithium level during the week in the context of dose being increased. Medication Compliance: Yes Side effects from medications: No Attending Groups: No Review of Systems Acute medical concerns: No Review of Systems Review of Systems Unremarkable Mental Status Exam Mental Status Exam Narrative: in room. Pleasant. Does have some difficulty engaging as he is anxious and appears internally preoccupied. feels safe in the hospital. Denies current SI. No HI. No agitation. Does endorse hearing voices that are referential in nature. Insight and judgment fair Diagnostics Vital Signs (24Hr): Vital Signs - 24 hr 01/22/24 20:00 Temperature 97.0 F Pulse Rate 100 Respiratory Rate 16 Blood Pressure 132/74 Pulse Oximetry 96 Oxygen Delivery Method Room Air BMI result Body Mass Index 23.9 Labs 01/21/24 14:41 01/22/24 07:55 Labs: Laboratory Results - last 48 hr 01/21/24 01/22/24 14:41 07:55 WBC 7.7 RBC 4.82 D Hgb 15.6 D Hct 43.6 D MCV 90.5 MCH 32.4 MCHC 35.8 RDW 12.7 Plt Count 263 MPV 10.2 Immature Gran % (Auto) 0.1 Neut % (Auto) 70.4 Lymph % (Auto) 21.6 Real % (Auto) 5.6 Eos % (Auto) 1.4 Baso % (Auto) 0.9 Lymph # (Auto) 1.7 Real # (Auto) 0.4 Eos # (Auto) 0.1 Baso # (Auto) 0.1 Abs Immat Gran (auto) 0.01 Absolute Neuts (auto) 5.4 Absolute Nucleated RBC 0.000 Nucleated RBC % (auto) 0.0 Sodium 137 141 Potassium 4.0 4.4 Chloride 105 109 H Carbon Dioxide 23 23 Anion Gap 13 13 BUN 10 15 Creatinine 0.91 0.82 Estim Creat Clear Calc 97.5 108.2 Estimated GFR > 60 > 60 Random Glucose 100 Fasting Glucose 96 Estimat Average Glucose 91 Hemoglobin A1c % 4.8 Calcium 9.6 9.4 Total Bilirubin 0.7 0.2 AST 13 12 ALT 10 10 Alkaline Phosphatase 49 45 Total Protein 7.5 6.8 Albumin 4.7 4.1 Triglycerides 139 Cholesterol 128 LDL Cholesterol, Calc 42 HDL Cholesterol 59 Urine Color Yellow Urine Appearance Clear Urine pH 6.5 Ur Specific [place] <= 1.005 Urine Protein Negative Urine Glucose (UA) Negative Urine Ketones Negative Urine Blood Negative Urine Nitrite Negative Ur Leukocyte Esterase Negative Urine Opiates Screen Not Detected Ur Buprenorphine Scrn Not Detected Ur Oxycodone Screen Not Detected Urine Methadone Screen Not Detected Urine Fentanyl Screen Not Detected Ur Barbiturates Screen Not Detected Ur Phencyclidine Scrn Not Detected Ur Amphetamines Screen Not Detected U Benzodiazepines Scrn Not Detected [place] 0.37 L Urine Cocaine Screen Not Detected U Marijuana (THC) Screen Not Detected Ethyl Alcohol < 10 Medications Medications Current Medications Acetaminophen (Acetaminophen 325 Mg Tablet) 650 mg PO Q6H PRN PRN Reason: Headache/Pain Mild Scale (1-3) Last Admin: 01/22/24 09:21 Dose: 650 mg Al Hydroxide/Mg Hydroxide (Magnesium Hydrox/Alum Hydrox 30 Ml Oral.Susp) 30 ml PO Q6H PRN PRN Reason: Heartburn/Nausea Benztropine Mesylate (Benztropine Mesylate 1 Mg Tablet) 1 mg PO BID [facility] Last Admin: 01/22/24 20:11 Dose: 1 mg Haloperidol Decanoate (Haloperidol Decanoate 50 Mg/Ml Vial) 100 mg IM Q14D [facility] Hydroxyzine HCl (Hydroxyzine Hcl 25 Mg Tablet) 25 mg PO Q6H PRN PRN Reason: Anxiety [place] Carbonate ([place] Carbonate 300 Mg Tablet) 300 mg PO BEDTIME [facility] Last Admin: 01/22/24 20:11 Dose: 300 mg [place] Carbonate ([place] Carbonate 300 Mg Capsule) 300 mg PO DAILY [facility] Magnesium Hydroxide (Milk Of Magnesia 30 Ml Oral.Susp) 30 ml PO DAILY PRN PRN Reason: Constipation Olanzapine (Olanzapine 5 Mg Tablet) 5 mg PO Q4H PRN PRN Reason: psychosis agitation Olanzapine (Olanzapine 10 Mg Tablet) 10 mg PO BEDTIME [facility] Last Admin: 01/22/24 20:11 Dose: 10 mg Trazodone HCl (Trazodone Hcl 50 Mg Tablet) 50 mg PO BEDTIME MRX1 PRN PRN Reason: Insomnia Last Admin: 01/22/24 21:37 Dose: 50 mg Allergies Allergies Allergy/AdvReac Type Severity Reaction Status Date / Time bupropion [From Wellbutrin] Allergy Mild CAUSES Verified 01/21/24 14:21 [place] tetracycline [Tetracycline] Allergy Mild UNKNOWN Verified 01/21/24 14:21 trifluoperazine Allergy Mild UNKNOWN Verified 01/21/24 14:21 [From Stelazine] clozapine [From Clozaril] AdvReac Mild SEIZURES,NE Verified 01/21/24 14:21 UTROPENIA Assessment & Plan Assessment & Plan (1) Schizoaffective disorder: Status: Acute Code(s): F25.9 - Schizoaffective disorder, unspecified Assessment and Plan: Regarding medications has a clear understanding of his meds and reports a are Haldol long-acting injectable 100 mg every 2 weeks last received 5 days ago. Reports outpatient provider suggested Haldol 2 mg as needed but reports he does not want to take this as he reports feeling stiff. No longer on Invega Sustenna injection. [place] is 300 mg twice daily. Cogentin 1 mg twice daily. Did discuss during last admission being on olanzapine as needed, higher doses of lithium and hydroxyzine p.r.n.. Patient agreed to increase lithium to total daily dose of 900 mg. Olanzapine scheduled and as needed. 01/23/2024: No changes as lithium and olanzapine recently adjusted. [place] level during the week. Reason for continued inpatient stay Substantial Risk for: harm to self and inability to function Time Spent With Patient Time: Total time managing care of this patient today ____ minutes.
[2024-01-23] MEDS: OLANZapine 5 MG TABLET PO (09:18)
[2024-01-23] MEDS: Benztropine Mesylate 1 MG TABLET PO ×2 (09:18→20:36)
[2024-01-23] MEDS: Lithium Carbonate 300 MG CAPSULE PO (09:18)
[2024-01-23] MEDS: Acetaminophen 325 MG TABLET 650 MG PO (09:18)
[2024-01-23 19:45] VITALS: BP 119/77; PULSE 72; TEMP 36.4; O2SAT 97
[2024-01-23] MEDS: OLANZapine 10 MG TABLET PO (20:36)
[2024-01-23] MEDS: Lithium Carbonate 300 MG TABLET PO (20:36)
[2024-01-23] MEDS: traZODone HCL 50 MG TABLET PO (23:10)
[2024-01-24] MEDS: traZODone HCL 50 MG TABLET PO ×2 (00:04→21:07)
[2024-01-24 08:00] VITALS: BP 124/63; PULSE 62; RESP 16; TEMP 36.4; O2SAT 96
[2024-01-24] MEDS: Lithium Carbonate 300 MG CAPSULE PO (08:50)
[2024-01-24] MEDS: Benztropine Mesylate 1 MG TABLET PO ×2 (08:50→21:07)
--- NOTE | 2024-01-24 16:24 | P.PNPSI_ITS ---
Subjective Subjective Date of Service: 01/24/24 Reason For Visit: Psychosis Subjective Notes: Conditional Voluntary Healthcare Proxy: No Guardianship: No Medical Problems Affecting Mental Status: No Interim History: Playing cards in the common area alone. Reports no current concerns. Tells team that he feels dizziness on one side of his head. [place] increase over the weekend, will plan for a level on 01/25 if pt agrees. Medication Compliance: Yes Side effects from medications: No Attending Groups: Intermittent Review of Systems Acute medical concerns: No Medical Review of Systems: unchanged Review of Systems Review of Systems denies today Mental Status Exam Mental Status Exam Patient Appearance: Appropriate Patient Orientation: Person, Place and Situation Level of Consciousness: Alert Patient Behavior: Guarded and Suspicious Mood Description: Suspicious Affect Description: Constricted Patient Cognition Impaired: No Ability to Follow Directions: Good Speech Pattern: Spontaneous Speech Memory Description: Episodic Impaired Hallucinations: None Delusions: Present Thought Process: Distracted Thought Content: positive for Circumstantial Judgement: Fair Diagnostics Vital Signs (24Hr): Vital Signs - 24 hr 01/23/24 19:45 01/24/24 08:00 Temperature 97.6 F 97.5 F Pulse Rate 72 62 Respiratory Rate 16 Blood Pressure 119/77 124/63 Pulse Oximetry 97 96 Oxygen Delivery Method Room Air Room Air BMI result Body Mass Index 23.9 Labs 01/21/24 14:41 01/22/24 07:55 Medications Medications Current Medications Acetaminophen (Acetaminophen 325 Mg Tablet) 650 mg PO Q6H PRN PRN Reason: Headache/Pain Mild Scale (1-3) Last Admin: 01/23/24 09:18 Dose: 650 mg Al Hydroxide/Mg Hydroxide (Magnesium Hydrox/Alum Hydrox 30 Ml Oral.Susp) 30 ml PO Q6H PRN PRN Reason: Heartburn/Nausea Benztropine Mesylate (Benztropine Mesylate 1 Mg Tablet) 1 mg PO BID [facility] Last Admin: 01/24/24 08:50 Dose: 1 mg Haloperidol Decanoate (Haloperidol Decanoate 50 Mg/Ml Vial) 100 mg IM Q14D [facility] Hydroxyzine HCl (Hydroxyzine Hcl 25 Mg Tablet) 25 mg PO Q6H PRN PRN Reason: Anxiety [place] Carbonate ([place] Carbonate 300 Mg Tablet) 300 mg PO BEDTIME [facility] Last Admin: 01/23/24 20:36 Dose: 300 mg [place] Carbonate ([place] Carbonate 300 Mg Capsule) 300 mg PO DAILY [facility] Last Admin: 01/24/24 08:50 Dose: 300 mg Magnesium Hydroxide (Milk Of Magnesia 30 Ml Oral.Susp) 30 ml PO DAILY PRN PRN Reason: Constipation Olanzapine (Olanzapine 5 Mg Tablet) 5 mg PO Q4H PRN PRN Reason: psychosis agitation Last Admin: 01/23/24 09:18 Dose: 5 mg Olanzapine (Olanzapine 10 Mg Tablet) 10 mg PO BEDTIME [facility] Last Admin: 01/23/24 20:36 Dose: 10 mg Trazodone HCl (Trazodone Hcl 50 Mg Tablet) 50 mg PO BEDTIME MRX1 PRN PRN Reason: Insomnia Last Admin: 01/24/24 00:04 Dose: 50 mg Allergies Allergies Allergy/AdvReac Type Severity Reaction Status Date / Time bupropion [From Wellbutrin] Allergy Mild CAUSES Verified 01/21/24 14:21 [place] tetracycline [Tetracycline] Allergy Mild UNKNOWN Verified 01/21/24 14:21 trifluoperazine Allergy Mild UNKNOWN Verified 01/21/24 14:21 [From Stelazine] clozapine [From Clozaril] AdvReac Mild SEIZURES,NE Verified 01/21/24 14:21 UTROPENIA Assessment & Plan Assessment & Plan (1) Schizoaffective disorder: Status: Acute Code(s): F25.9 - Schizoaffective disorder, unspecified Assessment and Plan: Regarding medications has a clear understanding of his meds and reports a are Haldol long-acting injectable 100 mg every 2 weeks last received 5 days ago. Reports outpatient provider suggested Haldol 2 mg as needed but reports he does not want to take this as he reports feeling stiff. No longer on Invega Sustenna injection. [place] is 300 mg twice daily. Cogentin 1 mg twice daily. Did discuss during last admission being on olanzapine as needed, higher doses of lithium and hydroxyzine p.r.n.. Patient agreed to increase lithium to total daily dose of 900 mg. Olanzapine scheduled and as needed. 01/23/2024: No changes as lithium and olanzapine recently adjusted. [place] level during the week. 01/24/2024: Continue tx. Reason for continued inpatient stay Substantial Risk for: rapid decompensation Time Spent With Patient Time: Total time managing care of this patient today ____ minutes.
[2024-01-24 20:00] VITALS: BP 142/72; PULSE 96; TEMP 37.2; O2SAT 96
[2024-01-24] MEDS: Lithium Carbonate 300 MG TABLET PO (21:07)
[2024-01-24] MEDS: OLANZapine 10 MG TABLET PO (21:07)
[2024-01-25 08:00] VITALS: BP 108/64; PULSE 53; TEMP 36.6; O2SAT 97
[2024-01-25 08:34] VITALS: BP 127/76; PULSE 64; O2SAT 98
[2024-01-25] MEDS: Lithium Carbonate 300 MG CAPSULE PO (08:35)
[2024-01-25] MEDS: Benztropine Mesylate 1 MG TABLET PO ×2 (08:35→21:47)
--- NOTE | 2024-01-25 11:50 | P.PNPSI_ITS ---
Subjective Subjective Date of Service: 01/25/24 Reason For Visit: Psychosis Subjective Notes: Conditional Voluntary Interim History: Pt reports feeling OK . Discussed Olanzapine today as was discussed on 01/23 and Haldol. Discussed SE potential. Denies SE. Denies SI/HI/ VH. 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 Will continue discussion with pt about this Medication Compliance: Yes Side effects from medications: No Attending Groups: Intermittent Review of Systems Acute medical concerns: No Medical Review of Systems: unchanged Review of Systems Review of Systems vertigo, dizziness reported later in the day to team. Yes all other systems are reviewed and are negative Mental Status Exam Mental Status Exam Patient Appearance: Appropriate Patient Orientation: Person, Place and Situation Level of Consciousness: Alert Patient Behavior: Guarded and Suspicious Mood Description: Suspicious Affect Description: Constricted Patient Cognition Impaired: No Ability to Follow Directions: Good Speech Pattern: Spontaneous Speech Memory Description: Episodic Impaired Hallucinations: None Delusions: Present Thought Process: Distracted Thought Content: positive for Circumstantial Judgement: Fair Diagnostics Vital Signs (24Hr): Vital Signs - 24 hr 01/24/24 20:00 01/25/24 08:00 01/25/24 08:34 Temperature 98.9 F 97.8 F Pulse Rate 96 53 64 Blood Pressure 142/72 H 108/64 127/76 Pulse Oximetry 96 97 98 Oxygen Delivery Method Room Air Room Air Room Air BMI result Body Mass Index 23.9 Labs 01/21/24 14:41 01/22/24 07:55 Medications Medications Current Medications Acetaminophen (Acetaminophen 325 Mg Tablet) 650 mg PO Q6H PRN PRN Reason: Headache/Pain Mild Scale (1-3) Last Admin: 01/23/24 09:18 Dose: 650 mg Al Hydroxide/Mg Hydroxide (Magnesium Hydrox/Alum Hydrox 30 Ml Oral.Susp) 30 ml PO Q6H PRN PRN Reason: Heartburn/Nausea Benztropine Mesylate (Benztropine Mesylate 1 Mg Tablet) 1 mg PO BID [facility] Last Admin: 01/25/24 08:35 Dose: 1 mg Haloperidol Decanoate (Haloperidol Decanoate 50 Mg/Ml Vial) 100 mg IM Q14D [facility] Hydroxyzine HCl (Hydroxyzine Hcl 25 Mg Tablet) 25 mg PO Q6H PRN PRN Reason: Anxiety [place] Carbonate ([place] Carbonate 300 Mg Tablet) 300 mg PO BEDTIME [facility] Last Admin: 01/24/24 21:07 Dose: 300 mg [place] Carbonate ([place] Carbonate 300 Mg Capsule) 300 mg PO DAILY [facility] Last Admin: 01/25/24 08:35 Dose: 300 mg Magnesium Hydroxide (Milk Of Magnesia 30 Ml Oral.Susp) 30 ml PO DAILY PRN PRN Reason: Constipation Olanzapine (Olanzapine 5 Mg Tablet) 5 mg PO Q4H PRN PRN Reason: psychosis agitation Last Admin: 01/23/24 09:18 Dose: 5 mg Olanzapine (Olanzapine 10 Mg Tablet) 10 mg PO BEDTIME [facility] Last Admin: 01/24/24 21:07 Dose: 10 mg Trazodone HCl (Trazodone Hcl 50 Mg Tablet) 50 mg PO BEDTIME MRX1 PRN PRN Reason: Insomnia Last Admin: 01/24/24 21:07 Dose: 50 mg Allergies Allergies Allergy/AdvReac Type Severity Reaction Status Date / Time bupropion [From Wellbutrin] Allergy Mild CAUSES Verified 01/21/24 14:21 [place] tetracycline [Tetracycline] Allergy Mild UNKNOWN Verified 01/21/24 14:21 trifluoperazine Allergy Mild UNKNOWN Verified 01/21/24 14:21 [From Stelazine] clozapine [From Clozaril] AdvReac Mild SEIZURES,NE Verified 01/21/24 14:21 UTROPENIA Assessment & Plan Assessment & Plan (1) Schizoaffective disorder: Status: Acute Code(s): F25.9 - Schizoaffective disorder, unspecified Assessment and Plan: Regarding medications has a clear understanding of his meds and reports a are Haldol long-acting injectable 100 mg every 2 weeks last received 5 days ago. Reports outpatient provider suggested Haldol 2 mg as needed but reports he does not want to take this as he reports feeling stiff. No longer on Invega Sustenna injection. [place] is 300 mg twice daily. Cogentin 1 mg twice daily. Did discuss during last admission being on olanzapine as needed, higher doses of lithium and hydroxyzine p.r.n.. Patient agreed to increase lithium to total daily dose of 900 mg. Olanzapine scheduled and as needed. 01/23/2024: No changes as lithium and olanzapine recently adjusted. [place] level during the week. 01/24/2024: Continue tx. 01/25/2024: Continue tx. Reason for continued inpatient stay Substantial Risk for: rapid decompensation Time Spent With Patient Time: Total time managing care of this patient today ____ minutes.
[2024-01-25 16:16] VITALS: BP 111/74; PULSE 77
[2024-01-25 20:00] VITALS: BP 148/74; PULSE 69; RESP 16; TEMP 36.5; O2SAT 100
[2024-01-25] MEDS: Lithium Carbonate 300 MG TABLET PO (21:47)
[2024-01-25] MEDS: traZODone HCL 50 MG TABLET PO (21:47)
[2024-01-25] MEDS: OLANZapine 10 MG TABLET PO (21:47)
[2024-01-26] MEDS: traZODone HCL 50 MG TABLET PO (00:22)
[2024-01-26 08:00] VITALS: BP 116/63; PULSE 58; TEMP 36.8; O2SAT 97
[2024-01-26 08:36] VITALS: PULSE 68
[2024-01-26] MEDS: Benztropine Mesylate 1 MG TABLET PO ×2 (08:37→22:32)
[2024-01-26] MEDS: Lithium Carbonate 300 MG CAPSULE PO (08:37)
--- NOTE | 2024-01-26 14:41 | P.PNPSI_ITS ---
Subjective Subjective Date of Service: 01/26/24 Reason For Visit: Psychosis Subjective Notes: Conditional Voluntary Healthcare Proxy: No Guardianship: No Medical Problems Affecting Mental Status: No Interim History: Reported to team yesterday afternoon vertigo, dizziness. States this has been a sx since September when he overtook [facility] [place] [facility] for 50+. Reports taking 5 tabs daily for a while, I think I calcified my head . Lightheadedness on L side. Feels some depression, intermittent insomnia, no racing thoughts. Reports L ear tinnitus, stress incontinence (ordered male briefs for pt). Discussed meclizine trial and will research vitamin contents for diagnostics if needed. Will pursue CAT Head to r/o trauma as well. This was completed with no changes noted from previous film Medication Compliance: Yes Side effects from medications: No Attending Groups: No Review of Systems Acute medical concerns: No Medical Review of Systems: unchanged Review of Systems Review of Systems vertigo, tinnitus, dizziness Mental Status Exam Mental Status Exam Patient Appearance: Appropriate Patient Orientation: Person, Place and Situation Level of Consciousness: Alert Patient Behavior: Guarded and Suspicious Mood Description: Suspicious Affect Description: Constricted Patient Cognition Impaired: No Ability to Follow Directions: Good Speech Pattern: Spontaneous Speech Memory Description: Episodic Impaired Hallucinations: None Delusions: Present Thought Process: Distracted Thought Content: positive for Circumstantial Judgement: Fair Diagnostics Vital Signs (24Hr): Vital Signs - 24 hr 01/25/24 16:16 01/25/24 20:00 01/26/24 08:00 Temperature 97.7 F 98.2 F Pulse Rate 77 69 58 Respiratory Rate 16 Blood Pressure 111/74 148/74 H 116/63 Pulse Oximetry 100 97 Oxygen Delivery Method Room Air Room Air 01/26/24 08:36 Temperature Pulse Rate 68 Respiratory Rate Blood Pressure Pulse Oximetry Oxygen Delivery Method BMI result Body Mass Index 23.9 Labs 01/21/24 14:41 01/22/24 07:55 Imaging Radiology Impressions: ITS Impressions Head CT 01/26/24 13:55 IMPRESSION: *No acute intracranial abnormalities. *Unchanged 1.2 cm benign-appearing calcified focus within the fourth ventricle stable compared with 12/14/2022. No associated hydrocephalus. This finding may represent calcified choroid plexus cyst or choroid plexus papilloma. Medications Medications Current Medications Acetaminophen (Acetaminophen 325 Mg Tablet) 650 mg PO Q6H PRN PRN Reason: Headache/Pain Mild Scale (1-3) Last Admin: 01/23/24 09:18 Dose: 650 mg Al Hydroxide/Mg Hydroxide (Magnesium Hydrox/Alum Hydrox 30 Ml Oral.Susp) 30 ml PO Q6H PRN PRN Reason: Heartburn/Nausea Benztropine Mesylate (Benztropine Mesylate 1 Mg Tablet) 1 mg PO BID [facility] Last Admin: 01/26/24 08:37 Dose: 1 mg Haloperidol Decanoate (Haloperidol Decanoate 50 Mg/Ml Vial) 100 mg IM Q14D [facility] Hydroxyzine HCl (Hydroxyzine Hcl 25 Mg Tablet) 25 mg PO Q6H PRN PRN Reason: Anxiety [place] Carbonate ([place] Carbonate 300 Mg Tablet) 300 mg PO BEDTIME [facility] Last Admin: 01/25/24 21:47 Dose: 300 mg [place] Carbonate ([place] Carbonate 300 Mg Capsule) 300 mg PO DAILY [facility] Last Admin: 01/26/24 08:37 Dose: 300 mg Magnesium Hydroxide (Milk Of Magnesia 30 Ml Oral.Susp) 30 ml PO DAILY PRN PRN Reason: Constipation Meclizine HCl (Meclizine Hcl 12.5 Mg Tablet) 12.5 mg PO Q8H PRN PRN Reason: dizziness Olanzapine (Olanzapine 5 Mg Tablet) 5 mg PO Q4H PRN PRN Reason: psychosis agitation Last Admin: 01/23/24 09:18 Dose: 5 mg Olanzapine (Olanzapine 10 Mg Tablet) 10 mg PO BEDTIME [facility] Last Admin: 01/25/24 21:47 Dose: 10 mg Trazodone HCl (Trazodone Hcl 50 Mg Tablet) 50 mg PO BEDTIME MRX1 PRN PRN Reason: Insomnia Last Admin: 01/26/24 00:22 Dose: 50 mg Allergies Allergies Allergy/AdvReac Type Severity Reaction Status Date / Time bupropion [From Wellbutrin] Allergy Mild CAUSES Verified 01/21/24 14:21 [place] tetracycline [Tetracycline] Allergy Mild UNKNOWN Verified 01/21/24 14:21 trifluoperazine Allergy Mild UNKNOWN Verified 01/21/24 14:21 [From Stelazine] clozapine [From Clozaril] AdvReac Mild SEIZURES,NE Verified 01/21/24 14:21 UTROPENIA Assessment & Plan Assessment & Plan (1) Schizoaffective disorder: Status: Acute Code(s): F25.9 - Schizoaffective disorder, unspecified Assessment and Plan: Regarding medications has a clear understanding of his meds and reports a are Haldol long-acting injectable 100 mg every 2 weeks last received 5 days ago. Reports outpatient provider suggested Haldol 2 mg as needed but reports he does not want to take this as he reports feeling stiff. No longer on Invega Sustenna injection. [place] is 300 mg twice daily. Cogentin 1 mg twice daily. Did discuss during last admission being on olanzapine as needed, higher doses of lithium and hydroxyzine p.r.n.. Patient agreed to increase lithium to total daily dose of 900 mg. Olanzapine scheduled and as needed. 01/23/2024: No changes as lithium and olanzapine recently adjusted. [place] level during the week. 01/24/2024: Continue tx. 01/25/2024: Continue tx. 01/26/24: Repeat CAT-no changes Meclizine prn for vertigo, dizziness Will research vitamin ingredients as pt reports overtaking for a few months. Reason for continued inpatient stay Substantial Risk for: rapid decompensation Time Spent With Patient Time: Total time managing care of this patient today ____ minutes.
[2024-01-26 20:00] VITALS: BP 134/81; PULSE 73; RESP 16; TEMP 36.6; O2SAT 98
[2024-01-26] MEDS: Lithium Carbonate 300 MG TABLET PO (22:32)
[2024-01-26] MEDS: OLANZapine 10 MG TABLET PO (22:32)
[2024-01-27 08:00] VITALS: BP 113/60; PULSE 61; RESP 16; TEMP 36.7; O2SAT 96
[2024-01-27 08:49] LABS: Lithium 0.28 mmol/L (0.60-1.20)
[2024-01-27] MEDS: Benztropine Mesylate 1 MG TABLET PO ×2 (09:02→20:19)
[2024-01-27] MEDS: Lithium Carbonate 300 MG CAPSULE PO (09:02)
[2024-01-27 11:21] VITALS: BMI 25.3
--- NOTE | 2024-01-27 17:00 | P.PNPSI_ITS ---
Subjective Subjective Date of Service: 01/27/24 Reason For Visit: Psychosis Subjective Notes: Conditional Voluntary Interim History: [place] level 0.28, dosage increased today. 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 Dam[place] Men 50+ vitamins and specific ingredients. Will obtain some vitamin/mineral levels as a precaution. Pt in groups, in milieu today. Reports no questions/concerns. Aware we are working on vitamin issue and increasing [place] level. Medication Compliance: Yes Side effects from medications: No Attending Groups: Yes Review of Systems Acute medical concerns: No Medical Review of Systems: unchanged Review of Systems Review of Systems Yes all other systems are reviewed and are negative Mental Status Exam Mental Status Exam Patient Appearance: Appropriate Patient Orientation: Person, Place and Situation Level of Consciousness: Alert Patient Behavior: Guarded and Suspicious Mood Description: Suspicious Affect Description: Constricted Patient Cognition Impaired: No Ability to Follow Directions: Good Speech Pattern: Spontaneous Speech Memory Description: Episodic Impaired Hallucinations: None Delusions: Present Thought Process: Distracted Thought Content: positive for Circumstantial Judgement: Fair Diagnostics Vital Signs (24Hr): Vital Signs - 24 hr 01/26/24 20:00 01/27/24 08:00 Temperature 97.8 F 98.1 F Pulse Rate 73 61 Respiratory Rate 16 16 Blood Pressure 134/81 113/60 Pulse Oximetry 98 96 Oxygen Delivery Method Room Air Room Air BMI result Body Mass Index 25.3 Labs 01/21/24 14:41 01/22/24 07:55 Labs: Laboratory Results - last 48 hr 01/27/24 08:26 [place] 0.28 L Imaging Radiology Impressions: ITS Impressions Head CT 01/26/24 13:55 IMPRESSION: *No acute intracranial abnormalities. *Unchanged 1.2 cm benign-appearing calcified focus within the fourth ventricle stable compared with 12/14/2022. No associated hydrocephalus. This finding may represent calcified choroid plexus cyst or choroid plexus papilloma. Medications Medications Current Medications Acetaminophen (Acetaminophen 325 Mg Tablet) 650 mg PO Q6H PRN PRN Reason: Headache/Pain Mild Scale (1-3) Last Admin: 01/23/24 09:18 Dose: 650 mg Al Hydroxide/Mg Hydroxide (Magnesium Hydrox/Alum Hydrox 30 Ml Oral.Susp) 30 ml PO Q6H PRN PRN Reason: Heartburn/Nausea Benztropine Mesylate (Benztropine Mesylate 1 Mg Tablet) 1 mg PO BID ANJUM Last Admin: 01/27/24 09:02 Dose: 1 mg Haloperidol Decanoate (Haloperidol Decanoate 50 Mg/Ml Vial) 100 mg IM Q14D ANJUM Hydroxyzine HCl (Hydroxyzine Hcl 25 Mg Tablet) 25 mg PO Q6H PRN PRN Reason: Anxiety [place] Carbonate ([place] Carbonate Er 450 Mg Tablet.Er) 450 mg PO BID ANJUM Magnesium Hydroxide (Milk Of Magnesia 30 Ml Oral.Susp) 30 ml PO DAILY PRN PRN Reason: Constipation Meclizine HCl (Meclizine Hcl 12.5 Mg Tablet) 12.5 mg PO Q8H PRN PRN Reason: dizziness Olanzapine (Olanzapine 5 Mg Tablet) 5 mg PO Q4H PRN PRN Reason: psychosis agitation Last Admin: 01/23/24 09:18 Dose: 5 mg Olanzapine (Olanzapine 10 Mg Tablet) 10 mg PO BEDTIME ANJUM Last Admin: 01/26/24 22:32 Dose: 10 mg Trazodone HCl (Trazodone Hcl 50 Mg Tablet) 50 mg PO BEDTIME MRX1 PRN PRN Reason: Insomnia Last Admin: 01/26/24 00:22 Dose: 50 mg Allergies Allergies Allergy/AdvReac Type Severity Reaction Status Date / Time bupropion [From Wellbutrin] Allergy Mild CAUSES Verified 01/21/24 14:21 SWOLLEN HEAD tetracycline [Tetracycline] Allergy Mild UNKNOWN Verified 01/21/24 14:21 trifluoperazine Allergy Mild UNKNOWN Verified 01/21/24 14:21 [From Stelazine] clozapine [From Clozaril] AdvReac Mild SEIZURES,NE Verified 01/21/24 14:21 UTROPENIA Assessment & Plan Assessment & Plan (1) Schizoaffective disorder: Status: Acute Code(s): F25.9 - Schizoaffective disorder, unspecified Assessment and Plan: Regarding medications has a clear understanding of his meds and reports a are Haldol long-acting injectable 100 mg every 2 weeks last received 5 days ago. Reports outpatient provider suggested Haldol 2 mg as needed but reports he does not want to take this as he reports feeling stiff. No longer on Invega Sustenna injection. [place] is 300 mg twice daily. Cogentin 1 mg twice daily. Did discuss during last admission being on olanzapine as needed, higher doses of lithium and hydroxyzine p.r.n.. Patient agreed to increase lithium to total daily dose of 900 mg. Olanzapine scheduled and as needed. 01/23/2024: No changes as lithium and olanzapine recently adjusted. [place] level during the week. 01/24/2024: Continue tx. 01/25/2024: Continue tx. 01/26/24: Repeat CAT-no changes Meclizine prn for vertigo, dizziness Will research vitamin ingredients as pt reports overtaking for a few months. 01/27/24: Vitamin A,D,E,K levels, Magnesium Level, Zinc level [place] titration Reason for continued inpatient stay Substantial Risk for: rapid decompensation Time Spent With Patient Time: Total time managing care of this patient today ____ minutes.
[2024-01-27 19:51] VITALS: BP 125/64; PULSE 67; RESP 16; TEMP 36.1; O2SAT 99
[2024-01-27] MEDS: Lithium Carbonate ER 450 MG TABLET.ER PO (20:18)
[2024-01-27] MEDS: OLANZapine 10 MG TABLET PO (20:19)
[2024-01-27] MEDS: traZODone HCL 50 MG TABLET PO (22:52)
[2024-01-28] MEDS: Lithium Carbonate ER 450 MG TABLET.ER PO ×2 (08:47→21:06)
[2024-01-28] MEDS: Benztropine Mesylate 1 MG TABLET PO ×2 (08:47→21:06)
[2024-01-28 09:21] LABS: Magnesium 1.9 mg/dL (1.6-2.6)
[2024-01-28 09:45] VITALS: BP 111/50; PULSE 67; RESP 16; TEMP 36.4; O2SAT 95
[2024-01-28 10:08] LABS: Vitamin D 25-OH Total 21.9 ng/mL (>30)
--- NOTE | 2024-01-28 16:45 | HO.PSYCHPN ---
Subjective Subjective Date of Service: 01/28/24 Reason For Visit: Psychosis Subjective Notes: Conditional Voluntary Healthcare Proxy: No Guardianship: No Medical Problems Affecting Mental Status: No Interim History: Tolerating [place] increase. Pending labs as pt has been concerned about vitamin toxicity after extended period of overuse. Attending groups Visable in milieu Some rumination regarding SI, I want to live, it is hard. Addressing his concerns as they arise. Medication Compliance: Yes Side effects from medications: No Attending Groups: Yes Review of Systems Acute medical concerns: No Medical Review of Systems: unchanged Review of Systems Review of Systems Yes all other systems are reviewed and are negative Mental Status Exam Mental Status Exam Patient Appearance: Appropriate Patient Orientation: Person, Place and Situation Level of Consciousness: Alert Patient Behavior: Guarded and Suspicious Mood Description: Suspicious Affect Description: Constricted Patient Cognition Impaired: No Ability to Follow Directions: Good Speech Pattern: Spontaneous Speech Memory Description: Episodic Impaired Hallucinations: None Delusions: Present Thought Process: Distracted Thought Content: positive for Circumstantial Judgement: Fair Diagnostics Vital Signs (24Hr): Vital Signs - 24 hr 01/27/24 19:51 01/28/24 09:45 Temperature 97.0 F 97.5 F Pulse Rate 67 67 Respiratory Rate 16 16 Blood Pressure 125/64 111/50 L Pulse Oximetry 99 95 Oxygen Delivery Method Room Air Room Air BMI result Body Mass Index 25.3 Labs 01/21/24 14:41 01/22/24 07:55 Labs: Laboratory Results - last 48 hr 01/27/24 01/28/24 08:26 08:19 Magnesium 1.9 25-OH Vitamin D Total 21.9 L [place] 0.28 L Imaging Radiology Impressions: ITS Impressions Head CT 01/26/24 13:55 IMPRESSION: *No acute intracranial abnormalities. *Unchanged 1.2 cm benign-appearing calcified focus within the fourth ventricle stable compared with 12/14/2022. No associated hydrocephalus. This finding may represent calcified choroid plexus cyst or choroid plexus papilloma. Medications Medications Current Medications Acetaminophen (Acetaminophen 325 Mg Tablet) 650 mg PO Q6H PRN PRN Reason: Headache/Pain Mild Scale (1-3) Last Admin: 01/23/24 09:18 Dose: 650 mg Al Hydroxide/Mg Hydroxide (Magnesium Hydrox/Alum Hydrox 30 Ml Oral.Susp) 30 ml PO Q6H PRN PRN Reason: Heartburn/Nausea Benztropine Mesylate (Benztropine Mesylate 1 Mg Tablet) 1 mg PO BID [facility] Last Admin: 01/28/24 08:47 Dose: 1 mg Haloperidol Decanoate (Haloperidol Decanoate 50 Mg/Ml Vial) 100 mg IM Q14D ANJUM Hydroxyzine HCl (Hydroxyzine Hcl 25 Mg Tablet) 25 mg PO Q6H PRN PRN Reason: Anxiety [place] Carbonate ([place] Carbonate Er 450 Mg Tablet.Er) 450 mg PO BID [facility] Last Admin: 01/28/24 08:47 Dose: 450 mg Magnesium Hydroxide (Milk Of Magnesia 30 Ml Oral.Susp) 30 ml PO DAILY PRN PRN Reason: Constipation Meclizine HCl (Meclizine Hcl 12.5 Mg Tablet) 12.5 mg PO Q8H PRN PRN Reason: dizziness Olanzapine (Olanzapine 5 Mg Tablet) 5 mg PO Q4H PRN PRN Reason: psychosis agitation Last Admin: 01/23/24 09:18 Dose: 5 mg Olanzapine (Olanzapine 10 Mg Tablet) 10 mg PO BEDTIME ANJUM Last Admin: 01/27/24 20:19 Dose: 10 mg Trazodone HCl (Trazodone Hcl 50 Mg Tablet) 50 mg PO BEDTIME MRX1 PRN PRN Reason: Insomnia Last Admin: 01/27/24 22:52 Dose: 50 mg Allergies Allergies Allergy/AdvReac Type Severity Reaction Status Date / Time bupropion [From Wellbutrin] Allergy Mild CAUSES Verified 01/21/24 14:21 SWOLLEN HEAD tetracycline [Tetracycline] Allergy Mild UNKNOWN Verified 01/21/24 14:21 trifluoperazine Allergy Mild UNKNOWN Verified 01/21/24 14:21 [From Stelazine] clozapine [From Clozaril] AdvReac Mild SEIZURES,NE Verified 01/21/24 14:21 UTROPENIA Assessment & Plan Assessment & Plan (1) Schizoaffective disorder: Status: Acute Code(s): F25.9 - Schizoaffective disorder, unspecified Assessment and Plan: Regarding medications has a clear understanding of his meds and reports a are Haldol long-acting injectable 100 mg every 2 weeks last received 5 days ago. Reports outpatient provider suggested Haldol 2 mg as needed but reports he does not want to take this as he reports feeling stiff. No longer on Invega Sustenna injection. [place] is 300 mg twice daily. Cogentin 1 mg twice daily. Did discuss during last admission being on olanzapine as needed, higher doses of lithium and hydroxyzine p.r.n.. Patient agreed to increase lithium to total daily dose of 900 mg. Olanzapine scheduled and as needed. 01/23/2024: No changes as lithium and olanzapine recently adjusted. [place] level during the week. 01/24/2024: Continue tx. 01/25/2024: Continue tx. 01/26/24: Repeat CAT-no changes Meclizine prn for vertigo, dizziness Will research vitamin ingredients as pt reports overtaking for a few months. 01/27/24: Vitamin A,D,E,K levels, Magnesium Level, Zinc level [place] titration 01/28/24: Continue tx. Reason for continued inpatient stay Substantial Risk for: rapid decompensation Time Spent With Patient Time: Total time managing care of this patient today ____ minutes.
[2024-01-28 20:00] VITALS: BP 121/75; PULSE 95; RESP 16; TEMP 36.4; O2SAT 96
[2024-01-28] MEDS: traZODone HCL 50 MG TABLET PO (21:06)
[2024-01-28] MEDS: OLANZapine 10 MG TABLET PO (21:06)
[2024-01-29 08:00] VITALS: BP 113/60; PULSE 82; RESP 16; TEMP 36.4; O2SAT 96
[2024-01-29] MEDS: Lithium Carbonate ER 450 MG TABLET.ER PO ×2 (08:33→20:00)
[2024-01-29] MEDS: Benztropine Mesylate 1 MG TABLET PO ×2 (08:33→20:00)
--- NOTE | 2024-01-29 10:13 | P.PNPSI_ITS ---
Subjective Subjective Date of Service: 01/29/24 Reason For Visit: Psychosis Interim History: I have a stiff head.. I'm still hearing voices and I don't understand what people say... Tolerating current medication regimen. Tolerating [place] increase. Visible in milieu Addressing his concerns as they arise. Review of Systems Review of Systems vertigo, tinnitus, dizziness Yes all other systems are reviewed and are negative Constitutional: Reports as per [facility] Mental Status Exam Mental Status Exam Narrative: in room. Pleasant. Does have some difficulty engaging as he is anxious and appears internally preoccupied. feels safe in the hospital. Denies current SI. No HI. No agitation. Does endorse hearing voices that are referential in nature. Insight and judgment fair Patient Appearance: Appropriate Patient Orientation: Person, Place and Situation Level of Consciousness: Alert Patient Behavior: Guarded and Suspicious Mood Description: Suspicious Affect Description: Constricted Patient Cognition Impaired: No Ability to Follow Directions: Good Speech Pattern: Spontaneous Speech Memory Description: Episodic Impaired Diagnostics Vital Signs (24Hr): Vital Signs - 24 hr 01/28/24 20:00 Temperature 97.6 F Pulse Rate 95 Respiratory Rate 16 Blood Pressure 121/75 Pulse Oximetry 96 Oxygen Delivery Method Room Air BMI result Body Mass Index 25.3 Labs 01/21/24 14:41 01/22/24 07:55 Labs: Laboratory Results - last 48 hr 01/28/24 08:19 Magnesium 1.9 25-OH Vitamin D Total 21.9 L Imaging Radiology Impressions: ITS Impressions Head CT 01/26/24 13:55 IMPRESSION: *No acute intracranial abnormalities. *Unchanged 1.2 cm benign-appearing calcified focus within the fourth ventricle stable compared with 12/14/2022. No associated hydrocephalus. This finding may represent calcified choroid plexus cyst or choroid plexus papilloma. Medications Medications Current Medications Acetaminophen (Acetaminophen 325 Mg Tablet) 650 mg PO Q6H PRN PRN Reason: Headache/Pain Mild Scale (1-3) Last Admin: 01/23/24 09:18 Dose: 650 mg Al Hydroxide/Mg Hydroxide (Magnesium Hydrox/Alum Hydrox 30 Ml Oral.Susp) 30 ml PO Q6H PRN PRN Reason: Heartburn/Nausea Benztropine Mesylate (Benztropine Mesylate 1 Mg Tablet) 1 mg PO BID ANJUM Last Admin: 01/29/24 08:33 Dose: 1 mg Haloperidol Decanoate (Haloperidol Decanoate 50 Mg/Ml Vial) 100 mg IM Q14D ANJUM Hydroxyzine HCl (Hydroxyzine Hcl 25 Mg Tablet) 25 mg PO Q6H PRN PRN Reason: Anxiety [place] Carbonate ([place] Carbonate Er 450 Mg Tablet.Er) 450 mg PO BID ANJUM Last Admin: 01/29/24 08:33 Dose: 450 mg Magnesium Hydroxide (Milk Of Magnesia 30 Ml Oral.Susp) 30 ml PO DAILY PRN PRN Reason: Constipation Meclizine HCl (Meclizine Hcl 12.5 Mg Tablet) 12.5 mg PO Q8H PRN PRN Reason: dizziness Olanzapine (Olanzapine 5 Mg Tablet) 5 mg PO Q4H PRN PRN Reason: psychosis agitation Last Admin: 01/23/24 09:18 Dose: 5 mg Olanzapine (Olanzapine 10 Mg Tablet) 10 mg PO BEDTIME ANJUM Last Admin: 01/28/24 21:06 Dose: 10 mg Trazodone HCl (Trazodone Hcl 50 Mg Tablet) 50 mg PO BEDTIME MRX1 PRN PRN Reason: Insomnia Last Admin: 01/28/24 21:06 Dose: 50 mg Allergies Allergies Allergy/AdvReac Type Severity Reaction Status Date / Time bupropion [From Wellbutrin] Allergy Mild CAUSES Verified 01/21/24 14:21 SWOLLEN HEAD tetracycline [Tetracycline] Allergy Mild UNKNOWN Verified 01/21/24 14:21 trifluoperazine Allergy Mild UNKNOWN Verified 01/21/24 14:21 [From Stelazine] clozapine [From Clozaril] AdvReac Mild SEIZURES,NE Verified 01/21/24 14:21 UTROPENIA Assessment & Plan Assessment & Plan (1) Schizoaffective disorder: Status: Acute Code(s): F25.9 - Schizoaffective disorder, unspecified Assessment and Plan: Regarding medications has a clear understanding of his meds and reports a are Haldol long-acting injectable 100 mg every 2 weeks last received 5 days ago. Reports outpatient provider suggested Haldol 2 mg as needed but reports he does not want to take this as he reports feeling stiff. No longer on Invega Sustenna injection. [place] is 300 mg twice daily. Cogentin 1 mg twice daily. Did discuss during last admission being on olanzapine as needed, higher doses of lithium and hydroxyzine p.r.n.. Patient agreed to increase lithium to total daily dose of 900 mg. Olanzapine scheduled and as needed. 01/23/2024: No changes as lithium and olanzapine recently adjusted. [place] level during the week. 01/24/2024: Continue tx. 01/25/2024: Continue tx. 01/26/24: Repeat CAT-no changes Meclizine prn for vertigo, dizziness Will research vitamin ingredients as pt reports overtaking for a few months. 01/27/24: Vitamin A,D,E,K levels, Magnesium Level, Zinc level [place] titration 01/28/24: Continue tx. 01/28: continue current management and treatment plan. Reason for continued inpatient stay Substantial Risk for: inability to function and rapid decompensation Time Spent With Patient Time: Total time managing care of this patient today ____ minutes.
[2024-01-29 20:00] VITALS: BP 139/66; PULSE 69; RESP 18; TEMP 36.7; O2SAT 99
[2024-01-29] MEDS: OLANZapine 10 MG TABLET PO (20:00)
[2024-01-30 07:44] VITALS: BP 114/53; PULSE 58; RESP 14; TEMP 36.9; O2SAT 98
[2024-01-30 08:00] VITALS: BP 114/53; PULSE 60; RESP 14; TEMP 36.9; O2SAT 95
[2024-01-30] MEDS: Benztropine Mesylate 1 MG TABLET PO ×2 (08:56→22:03)
[2024-01-30] MEDS: Lithium Carbonate ER 450 MG TABLET.ER PO ×2 (08:56→22:04)
--- NOTE | 2024-01-30 10:24 | P.PNPSI_ITS ---
Subjective Subjective Date of Service: 01/30/24 Reason For Visit: Psychosis Interim History: Can we increase the [place]? It helps my bipolar depression Reports feeling improved with the [place]. No side effects. Complaining of my head has a lot of pressure still. I played [employer]. It's my favorite game but I was having pressure in my head Tolerating current medication regimen. Visible in milieu Addressing his concerns as they arise. Review of Systems Review of Systems vertigo, tinnitus, dizziness Yes all other systems are reviewed and are negative Constitutional: Reports as per [facility] Mental Status Exam Mental Status Exam Narrative: in room. Pleasant. Does have some difficulty engaging as he is anxious and appears internally preoccupied. feels safe in the hospital. Denies current SI. No HI. No agitation. Does endorse hearing voices that are referential in nature. Insight and judgment fair Patient Appearance: Appropriate Patient Orientation: Person, Place and Situation Level of Consciousness: Alert Patient Behavior: Guarded and Suspicious Mood Description: Suspicious Affect Description: Constricted Patient Cognition Impaired: No Ability to Follow Directions: Good Speech Pattern: Spontaneous Speech Memory Description: Episodic Impaired Diagnostics Vital Signs (24Hr): Vital Signs - 24 hr 01/29/24 20:00 01/30/24 07:44 Temperature 98.1 F 98.4 F Pulse Rate 69 58 Respiratory Rate 18 14 Blood Pressure 139/66 114/53 L Pulse Oximetry 99 98 Oxygen Delivery Method Room Air Room Air BMI result Body Mass Index 25.3 Labs 01/21/24 14:41 01/22/24 07:55 Imaging Radiology Impressions: ITS Impressions Head CT 01/26/24 13:55 IMPRESSION: *No acute intracranial abnormalities. *Unchanged 1.2 cm benign-appearing calcified focus within the fourth ventricle stable compared with 12/14/2022. No associated hydrocephalus. This finding may represent calcified choroid plexus cyst or choroid plexus papilloma. Medications Medications Current Medications Acetaminophen (Acetaminophen 325 Mg Tablet) 650 mg PO Q6H PRN PRN Reason: Headache/Pain Mild Scale (1-3) Last Admin: 01/23/24 09:18 Dose: 650 mg Al Hydroxide/Mg Hydroxide (Magnesium Hydrox/Alum Hydrox 30 Ml Oral.Susp) 30 ml PO Q6H PRN PRN Reason: Heartburn/Nausea Benztropine Mesylate (Benztropine Mesylate 1 Mg Tablet) 1 mg PO BID ANJUM Last Admin: 01/30/24 08:56 Dose: 1 mg Haloperidol Decanoate (Haloperidol Decanoate 50 Mg/Ml Vial) 100 mg IM Q14D ANJUM Hydroxyzine HCl (Hydroxyzine Hcl 25 Mg Tablet) 25 mg PO Q6H PRN PRN Reason: Anxiety [place] Carbonate ([place] Carbonate Er 450 Mg Tablet.Er) 450 mg PO BID ANJUM Last Admin: 01/30/24 08:56 Dose: 450 mg Magnesium Hydroxide (Milk Of Magnesia 30 Ml Oral.Susp) 30 ml PO DAILY PRN PRN Reason: Constipation Meclizine HCl (Meclizine Hcl 12.5 Mg Tablet) 12.5 mg PO Q8H PRN PRN Reason: dizziness Olanzapine (Olanzapine 5 Mg Tablet) 5 mg PO Q4H PRN PRN Reason: psychosis agitation Last Admin: 01/23/24 09:18 Dose: 5 mg Olanzapine (Olanzapine 10 Mg Tablet) 10 mg PO BEDTIME ANJUM Last Admin: 01/29/24 20:00 Dose: 10 mg Trazodone HCl (Trazodone Hcl 50 Mg Tablet) 50 mg PO BEDTIME MRX1 PRN PRN Reason: Insomnia Last Admin: 01/28/24 21:06 Dose: 50 mg Allergies Allergies Allergy/AdvReac Type Severity Reaction Status Date / Time bupropion [From Wellbutrin] Allergy Mild CAUSES Verified 01/21/24 14:21 SWOLLEN [place] tetracycline [Tetracycline] Allergy Mild UNKNOWN Verified 01/21/24 14:21 trifluoperazine Allergy Mild UNKNOWN Verified 01/21/24 14:21 [From Stelazine] clozapine [From Clozaril] AdvReac Mild SEIZURES,NE Verified 01/21/24 14:21 UTROPENIA Assessment & Plan Assessment & Plan (1) Schizoaffective disorder: Status: Acute Code(s): F25.9 - Schizoaffective disorder, unspecified Assessment and Plan: Regarding medications has a clear understanding of his meds and reports a are Haldol long-acting injectable 100 mg every 2 weeks last received 5 days ago. Reports outpatient provider suggested Haldol 2 mg as needed but reports he does not want to take this as he reports feeling stiff. No longer on Invega Sustenna injection. [place] is 300 mg twice daily. Cogentin 1 mg twice daily. Did discuss during last admission being on olanzapine as needed, higher doses of lithium and hydroxyzine p.r.n.. Patient agreed to increase lithium to total daily dose of 900 mg. Olanzapine scheduled and as needed. 01/23/2024: No changes as lithium and olanzapine recently adjusted. [place] level during the week. 01/24/2024: Continue tx. 01/25/2024: Continue tx. 01/26/24: Repeat CAT-no changes Meclizine prn for vertigo, dizziness Will research vitamin ingredients as pt reports overtaking for a few months. 01/27/24: Vitamin A,D,E,K levels, Magnesium Level, Zinc level [place] titration 01/28/24: Continue tx. 01/28: continue current management and treatment plan. 01/29: Li level in AM. Consider further titration depending on results. Reason for continued inpatient stay Substantial Risk for: inability to function and rapid decompensation Time Spent With Patient Time: Total time managing care of this patient today ____ minutes.
[2024-01-30 20:00] VITALS: BP 120/60; PULSE 75; RESP 16; TEMP 36.7; O2SAT 97
[2024-01-30] MEDS: OLANZapine 10 MG TABLET PO (22:03)
[2024-01-30] MEDS: traZODone HCL 50 MG TABLET PO ×2 (22:04→23:46)
[2024-01-31 08:00] VITALS: BP 119/59; PULSE 63; RESP 14; TEMP 36.8; O2SAT 96
[2024-01-31 08:28] LABS: Lithium 0.48 mmol/L (0.60-1.20)
[2024-01-31] MEDS: Lithium Carbonate ER 450 MG TABLET.ER PO ×2 (09:02→21:43)
[2024-01-31] MEDS: Benztropine Mesylate 1 MG TABLET PO ×2 (09:03→21:42)
--- NOTE | 2024-01-31 09:58 | P.PNPSI_ITS ---
Subjective Subjective Date of Service: 01/31/24 Reason For Visit: Psychosis Subjective Notes: Conditional Voluntary Interim History: Pt slept through the night. He has been taking medications as prescribed. He reports feeling less depressed, denies SI/HI. When asked about head feeling swelling of his head. He denies any physical pain. No behavioral concerns. No overt delusional content noted or reported. Review of Systems Review of Systems vertigo, tinnitus, dizziness Yes all other systems are reviewed and are negative Constitutional: Reports as per [facility] Mental Status Exam Mental Status Exam Patient Appearance: Appropriate Patient Orientation: Person, Place and Situation Level of Consciousness: Alert Patient Behavior: Guarded and Suspicious Mood Description: Suspicious Affect Description: Constricted Patient Cognition Impaired: No Ability to Follow Directions: Good Speech Pattern: Spontaneous Speech Memory Description: Episodic Impaired Diagnostics Vital Signs (24Hr): Vital Signs - 24 hr 01/30/24 20:00 01/31/24 08:00 Temperature 98.0 F 98.2 F Pulse Rate 75 63 Respiratory Rate 16 14 Blood Pressure 120/60 119/59 L Pulse Oximetry 97 96 Oxygen Delivery Method Room Air Room Air BMI result Body Mass Index 25.3 Labs 01/21/24 14:41 01/22/24 07:55 Labs: Laboratory Results - last 48 hr 01/31/24 08:12 [place] 0.48 L Imaging Radiology Impressions: ITS Impressions Head CT 01/26/24 13:55 IMPRESSION: *No acute intracranial abnormalities. *Unchanged 1.2 cm benign-appearing calcified focus within the fourth ventricle stable compared with 12/14/2022. No associated hydrocephalus. This finding may represent calcified choroid plexus cyst or choroid plexus papilloma. Medications Medications Current Medications Acetaminophen (Acetaminophen 325 Mg Tablet) 650 mg PO Q6H PRN PRN Reason: Headache/Pain Mild Scale (1-3) Last Admin: 01/23/24 09:18 Dose: 650 mg Al Hydroxide/Mg Hydroxide (Magnesium Hydrox/Alum Hydrox 30 Ml Oral.Susp) 30 ml PO Q6H PRN PRN Reason: Heartburn/Nausea Benztropine Mesylate (Benztropine Mesylate 1 Mg Tablet) 1 mg PO BID ANJUM Last Admin: 01/31/24 09:03 Dose: 1 mg Haloperidol Decanoate (Haloperidol Decanoate 50 Mg/Ml Vial) 100 mg IM Q14D [facility] Hydroxyzine HCl (Hydroxyzine Hcl 25 Mg Tablet) 25 mg PO Q6H PRN PRN Reason: Anxiety [place] Carbonate ([place] Carbonate Er 450 Mg Tablet.Er) 450 mg PO BID ANJUM Last Admin: 01/31/24 09:02 Dose: 450 mg Magnesium Hydroxide (Milk Of Magnesia 30 Ml Oral.Susp) 30 ml PO DAILY PRN PRN Reason: Constipation Meclizine HCl (Meclizine Hcl 12.5 Mg Tablet) 12.5 mg PO Q8H PRN PRN Reason: dizziness Olanzapine (Olanzapine 5 Mg Tablet) 5 mg PO Q4H PRN PRN Reason: psychosis agitation Last Admin: 01/23/24 09:18 Dose: 5 mg Olanzapine (Olanzapine 10 Mg Tablet) 10 mg PO BEDTIME ANJUM Last Admin: 01/30/24 22:03 Dose: 10 mg Trazodone HCl (Trazodone Hcl 50 Mg Tablet) 50 mg PO BEDTIME MRX1 PRN PRN Reason: Insomnia Last Admin: 01/30/24 23:46 Dose: 50 mg Allergies Allergies Allergy/AdvReac Type Severity Reaction Status Date / Time bupropion [From Wellbutrin] Allergy Mild CAUSES Verified 01/21/24 14:21 SWOLLEN HEAD tetracycline [Tetracycline] Allergy Mild UNKNOWN Verified 01/21/24 14:21 trifluoperazine Allergy Mild UNKNOWN Verified 01/21/24 14:21 [From Stelazine] clozapine [From Clozaril] AdvReac Mild SEIZURES,NE Verified 01/21/24 14:21 UTROPENIA Assessment & Plan Assessment & Plan (1) Schizoaffective disorder: Status: Acute Code(s): F25.9 - Schizoaffective disorder, unspecified Assessment and Plan: Regarding medications has a clear understanding of his meds and reports a are Haldol long-acting injectable 100 mg every 2 weeks last received 5 days ago. Reports outpatient provider suggested Haldol 2 mg as needed but reports he does not want to take this as he reports feeling stiff. No longer on Invega Sustenna injection. [place] is 300 mg twice daily. Cogentin 1 mg twice daily. Did discuss during last admission being on olanzapine as needed, higher doses of lithium and hydroxyzine p.r.n.. Patient agreed to increase lithium to total daily dose of 900 mg. Olanzapine scheduled and as needed. 01/23/2024: No changes as lithium and olanzapine recently adjusted. [place] level during the week. 01/24/2024: Continue tx. 01/25/2024: Continue tx. 01/26/24: Repeat CAT-no changes Meclizine prn for vertigo, dizziness Will research vitamin ingredients as pt reports overtaking for a few months. 01/27/24: Vitamin A,D,E,K levels, Magnesium Level, Zinc level [place] titration 01/28/24: Continue tx. 01/28: continue current management and treatment plan. 01/29: Li level in AM. Consider further titration depending on results. 01/30 continue tx. Reason for continued inpatient stay Substantial Risk for: inability to function Time Spent With Patient Time: Total time managing care of this patient today ____ minutes.
[2024-01-31 20:00] VITALS: BP 121/66; PULSE 78; RESP 16; TEMP 36.8; O2SAT 97
[2024-01-31] MEDS: OLANZapine 10 MG TABLET PO (21:42)
[2024-01-31] MEDS: traZODone HCL 50 MG TABLET PO (23:02)
[2024-02-01] MEDS: traZODone HCL 50 MG TABLET PO (00:30)
[2024-02-01 08:00] VITALS: BP 121/68; PULSE 72; RESP 14; TEMP 36.6; O2SAT 97
[2024-02-01] MEDS: Benztropine Mesylate 1 MG TABLET PO ×2 (08:38→21:04)
[2024-02-01] MEDS: Lithium Carbonate ER 450 MG TABLET.ER PO ×2 (08:38→21:04)
[2024-02-01] MEDS: Haloperidol Decanoate 50 MG/ML VIAL 100 MG IM (09:32)
[2024-02-01 16:04] LABS: Zinc 57 mcg/dL (60-130)
[2024-02-01 20:00] VITALS: BP 109/68; PULSE 77; RESP 16; TEMP 36.6; O2SAT 98
[2024-02-01 20:33] LABS: Vitamin K1 543 pg/mL (130-1500)
[2024-02-01] MEDS: OLANZapine 10 MG TABLET PO (21:04)
[2024-02-02 08:00] VITALS: BP 139/66; PULSE 63; RESP 16; TEMP 36.2; O2SAT 98
[2024-02-02] MEDS: Benztropine Mesylate 1 MG TABLET PO ×2 (08:46→21:20)
[2024-02-02] MEDS: Lithium Carbonate ER 450 MG TABLET.ER PO ×2 (08:46→21:20)
--- NOTE | 2024-02-02 10:51 | P.PNPSI_ITS ---
Subjective Subjective Date of Service: 02/01/24 Reason For Visit: Psychosis Subjective Notes: Conditional Voluntary Interim History: Pt continues to report feeling dizzy, although his description is poor as he also reports feeling head burning no sure if referring more to headache as when touches his brain on left side and tells this clinical writer here is my dizziness, I feel it here. He thinks lithium helps with this but I think this is unrelated. BP not low not to suspect this being cause, but can recheck ortho VS. He presents overall pleasant, reports less depression and denies SI/HI. No overt paranoid delusions. He is taking medications as prescribed. Diagnostics Vital Signs (24Hr): Vital Signs - 24 hr 02/01/24 20:00 02/02/24 08:00 Temperature 97.9 F 97.2 F Pulse Rate 77 63 Respiratory Rate 16 16 Blood Pressure 109/68 139/66 Pulse Oximetry 98 98 Oxygen Delivery Method Room Air Room Air BMI result Body Mass Index 25.3 Labs 01/21/24 14:41 01/22/24 07:55 Labs: Laboratory Results - last 48 hr 01/28/24 08:19 Vitamin K1 543 Zinc 57 L Imaging Radiology Impressions: ITS Impressions Head CT 01/26/24 13:55 IMPRESSION: *No acute intracranial abnormalities. *Unchanged 1.2 cm benign-appearing calcified focus within the fourth ventricle stable compared with 12/14/2022. No associated hydrocephalus. This finding may represent calcified choroid plexus cyst or choroid plexus papilloma. Medications Medications Current Medications Acetaminophen (Acetaminophen 325 Mg Tablet) 650 mg PO Q6H PRN PRN Reason: Headache/Pain Mild Scale (1-3) Last Admin: 01/23/24 09:18 Dose: 650 mg Al Hydroxide/Mg Hydroxide (Magnesium Hydrox/Alum Hydrox 30 Ml Oral.Susp) 30 ml PO Q6H PRN PRN Reason: Heartburn/Nausea Benztropine Mesylate (Benztropine Mesylate 1 Mg Tablet) 1 mg PO BID ANJUM Last Admin: 02/02/24 08:46 Dose: 1 mg Haloperidol Decanoate (Haloperidol Decanoate 50 Mg/Ml Vial) 100 mg IM Q14D ANJUM Last Admin: 02/01/24 09:32 Dose: 100 mg Hydroxyzine HCl (Hydroxyzine Hcl 25 Mg Tablet) 25 mg PO Q6H PRN PRN Reason: Anxiety [place] Carbonate ([place] Carbonate Er 450 Mg Tablet.Er) 450 mg PO BID ANJUM Last Admin: 02/02/24 08:46 Dose: 450 mg Magnesium Hydroxide (Milk Of Magnesia 30 Ml Oral.Susp) 30 ml PO DAILY PRN PRN Reason: Constipation Meclizine HCl (Meclizine Hcl 12.5 Mg Tablet) 12.5 mg PO Q8H PRN PRN Reason: dizziness Olanzapine (Olanzapine 5 Mg Tablet) 5 mg PO Q4H PRN PRN Reason: psychosis agitation Last Admin: 01/23/24 09:18 Dose: 5 mg Olanzapine (Olanzapine 10 Mg Tablet) 10 mg PO BEDTIME ANJUM Last Admin: 02/01/24 21:04 Dose: 10 mg Trazodone HCl (Trazodone Hcl 50 Mg Tablet) 50 mg PO BEDTIME MRX1 PRN PRN Reason: Insomnia Last Admin: 02/01/24 00:30 Dose: 50 mg Allergies Allergies Allergy/AdvReac Type Severity Reaction Status Date / Time bupropion [From Wellbutrin] Allergy Mild CAUSES Verified 01/21/24 14:21 SWOLLEN [place] tetracycline [Tetracycline] Allergy Mild UNKNOWN Verified 01/21/24 14:21 trifluoperazine Allergy Mild UNKNOWN Verified 01/21/24 14:21 [From Stelazine] clozapine [From Clozaril] AdvReac Mild SEIZURES,NE Verified 01/21/24 14:21 UTROPENIA Assessment & Plan Assessment & Plan (1) Schizoaffective disorder: Status: Acute Code(s): F25.9 - Schizoaffective disorder, unspecified Assessment and Plan: Regarding medications has a clear understanding of his meds and reports a are Haldol long-acting injectable 100 mg every 2 weeks last received 5 days ago. Reports outpatient provider suggested Haldol 2 mg as needed but reports he does not want to take this as he reports feeling stiff. No longer on Invega Sustenna injection. [place] is 300 mg twice daily. Cogentin 1 mg twice daily. Did discuss during last admission being on olanzapine as needed, higher doses of lithium and hydroxyzine p.r.n.. Patient agreed to increase lithium to total daily dose of 900 mg. Olanzapine scheduled and as needed. 01/23/2024: No changes as lithium and olanzapine recently adjusted. [place] level during the week. 01/24/2024: Continue tx. 01/25/2024: Continue tx. 01/26/24: Repeat CAT-no changes Meclizine prn for vertigo, dizziness Will research vitamin ingredients as pt reports overtaking for a few months. 01/27/24: Vitamin A,D,E,K levels, Magnesium Level, Zinc level [place] titration 01/28/24: Continue tx. 01/28: continue current management and treatment plan. 01/29: Li level in AM. Consider further titration depending on results. 01/30 continue tx. 01/31 may try one time sumatriptan for potential headache or migraine. check ortho VS. continue all other meds. Reason for continued inpatient stay Substantial Risk for: inability to function Time Spent With Patient Time: Total time managing care of this patient today ____ minutes.
[2024-02-02 16:19] LABS: Alpha-Tocopherol 12.8 mg/L (5.7-19.9); Beta-Gamma Tocopherol <1.0 mg/L (<=4.3); Vitamin A 64 mcg/dL (38-98)
--- NOTE | 2024-02-02 16:39 | P.PNPSI_ITS ---
Subjective Subjective Date of Service: 02/02/24 Reason For Visit: Psychosis Subjective Notes: Conditional Voluntary Healthcare Proxy: No Guardianship: No Medical Problems Affecting Mental Status: No Interim History: Reports feeling improved, brighter overall, prepared for discharge. 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 Pt met with his [facility] case management associate, Mr. Neri after our meeting. He reports it went well and he hopes to be connected to more community supports with [facility] upon discharge. Medication Compliance: Yes Side effects from medications: No Attending Groups: Yes Review of Systems Acute medical concerns: No Medical Review of Systems: unchanged Review of Systems Review of Systems Yes all other systems are reviewed and are negative (denies) Mental Status Exam Mental Status Exam Patient Appearance: Appropriate Patient Orientation: Person, Place and Situation Level of Consciousness: Alert Patient Behavior: Guarded and Suspicious Mood Description: Suspicious Affect Description: Constricted Patient Cognition Impaired: No Ability to Follow Directions: Good Speech Pattern: Spontaneous Speech Memory Description: Episodic Impaired Diagnostics Vital Signs (24Hr): Vital Signs - 24 hr 02/01/24 20:00 02/02/24 08:00 Temperature 97.9 F 97.2 F Pulse Rate 77 63 Respiratory Rate 16 16 Blood Pressure 109/68 139/66 Pulse Oximetry 98 98 Oxygen Delivery Method Room Air Room Air BMI result Body Mass Index 25.3 Labs 01/21/24 14:41 01/22/24 07:55 Labs: Laboratory Results - last 48 hr 01/28/24 08:19 Vitamin A 64 Alpha-Tocopherol Vit E 12.8 B- and G-Tocopherol <1.0 Vitamin K1 543 Zinc 57 L Imaging Radiology Impressions: ITS Impressions Head CT 01/26/24 13:55 IMPRESSION: *No acute intracranial abnormalities. *Unchanged 1.2 cm benign-appearing calcified focus within the fourth ventricle stable compared with 12/14/2022. No associated hydrocephalus. This finding may represent calcified choroid plexus cyst or choroid plexus papilloma. Medications Medications Current Medications Acetaminophen (Acetaminophen 325 Mg Tablet) 650 mg PO Q6H PRN PRN Reason: Headache/Pain Mild Scale (1-3) Last Admin: 01/23/24 09:18 Dose: 650 mg Al Hydroxide/Mg Hydroxide (Magnesium Hydrox/Alum Hydrox 30 Ml Oral.Susp) 30 ml PO Q6H PRN PRN Reason: Heartburn/Nausea Benztropine Mesylate (Benztropine Mesylate 1 Mg Tablet) 1 mg PO BID [facility] Last Admin: 02/02/24 08:46 Dose: 1 mg Haloperidol Decanoate (Haloperidol Decanoate 50 Mg/Ml Vial) 100 mg IM Q14D [facility] Last Admin: 02/01/24 09:32 Dose: 100 mg Hydroxyzine HCl (Hydroxyzine Hcl 25 Mg Tablet) 25 mg PO Q6H PRN PRN Reason: Anxiety [place] Carbonate ([place] Carbonate Er 450 Mg Tablet.Er) 450 mg PO BID [facility] Last Admin: 02/02/24 08:46 Dose: 450 mg Magnesium Hydroxide (Milk Of Magnesia 30 Ml Oral.Susp) 30 ml PO DAILY PRN PRN Reason: Constipation Meclizine HCl (Meclizine Hcl 12.5 Mg Tablet) 12.5 mg PO Q8H PRN PRN Reason: dizziness Multivitamins/Vitamin C (Multivitamin Tablet) 1 tab PO DAILY [facility] Olanzapine (Olanzapine 5 Mg Tablet) 5 mg PO Q4H PRN PRN Reason: psychosis agitation Last Admin: 01/23/24 09:18 Dose: 5 mg Olanzapine (Olanzapine 10 Mg Tablet) 10 mg PO BEDTIME [facility] Last Admin: 02/01/24 21:04 Dose: 10 mg Trazodone HCl (Trazodone Hcl 50 Mg Tablet) 50 mg PO BEDTIME MRX1 PRN PRN Reason: Insomnia Last Admin: 02/01/24 00:30 Dose: 50 mg Allergies Allergies Allergy/AdvReac Type Severity Reaction Status Date / Time bupropion [From Wellbutrin] Allergy Mild CAUSES Verified 01/21/24 14:21 SWOLLEN HEAD tetracycline [Tetracycline] Allergy Mild UNKNOWN Verified 01/21/24 14:21 trifluoperazine Allergy Mild UNKNOWN Verified 01/21/24 14:21 [From Stelazine] clozapine [From Clozaril] AdvReac Mild SEIZURES,NE Verified 01/21/24 14:21 UTROPENIA Assessment & Plan Assessment & Plan (1) Schizoaffective disorder: Status: Acute Code(s): F25.9 - Schizoaffective disorder, unspecified Assessment and Plan: Regarding medications has a clear understanding of his meds and reports a are Haldol long-acting injectable 100 mg every 2 weeks last received 5 days ago. Reports outpatient provider suggested Haldol 2 mg as needed but reports he does not want to take this as he reports feeling stiff. No longer on Invega Sustenna injection. [place] is 300 mg twice daily. Cogentin 1 mg twice daily. Did discuss during last admission being on olanzapine as needed, higher doses of lithium and hydroxyzine p.r.n.. Patient agreed to increase lithium to total daily dose of 900 mg. Olanzapine scheduled and as needed. 01/23/2024: No changes as lithium and olanzapine recently adjusted. [place] level during the week. 01/24/2024: Continue tx. 01/25/2024: Continue tx. 01/26/24: Repeat CAT-no changes Meclizine prn for vertigo, dizziness Will research vitamin ingredients as pt reports overtaking for a few months. 01/27/24: Vitamin A,D,E,K levels, Magnesium Level, Zinc level [place] titration 01/28/24: Continue tx. 01/28: continue current management and treatment plan. 01/29: Li level in AM. Consider further titration depending on results. 01/30 continue tx. 01/31 may try one time sumatriptan for potential headache or migraine. check ortho VS. continue all other meds. 02/01/23: Discharge 02/03. Return to [facility], 1 tab daily Reason for continued inpatient stay Substantial Risk for: stable for discharge Time Spent With Patient Time: Total time managing care of this patient today ____ minutes.
[2024-02-02 19:47] VITALS: BP 129/75; PULSE 66; RESP 16; TEMP 36.4; O2SAT 99
[2024-02-02] MEDS: OLANZapine 10 MG TABLET PO (21:20)
[2024-02-02] MEDS: traZODone HCL 50 MG TABLET PO (22:20)
[2024-02-03 07:00] VITALS: BMI 26.4
[2024-02-03 08:00] VITALS: BP 114/55; PULSE 66; RESP 18; TEMP 36.3; O2SAT 95
[2024-02-03] MEDS: Lithium Carbonate ER 450 MG TABLET.ER PO ×2 (08:51→20:30)
[2024-02-03] MEDS: Multivitamin TABLET 1 TAB PO (08:51)
[2024-02-03] MEDS: Benztropine Mesylate 1 MG TABLET PO ×2 (08:51→20:30)
--- NOTE | 2024-02-03 15:39 | HO.PSYCHPN ---
Subjective Subjective Date of Service: 02/03/24 Reason For Visit: Psychosis Subjective Notes: Conditional Voluntary Healthcare Proxy: No Guardianship: No Medical Problems Affecting Mental Status: No Interim History: Review of discharge and medications with pt today. He reports feeling ready to return home and states his work has been productive during his in pt stay. Reports no adverse med effects. Discussed how he has enjoyed milieu activity during this admission. This he believes will help him to better integrate into community programs upon discharge which have been offered. Medication Compliance: Yes Side effects from medications: No Attending Groups: Yes Review of Systems Acute medical concerns: No Medical Review of Systems: unchanged Review of Systems Review of Systems Yes all other systems are reviewed and are negative Mental Status Exam Mental Status Exam Patient Appearance: Appropriate Patient Orientation: Person, Place and Situation Level of Consciousness: Alert Patient Behavior: Guarded and Suspicious Mood Description: Suspicious Affect Description: Constricted Patient Cognition Impaired: No Ability to Follow Directions: Good Speech Pattern: Spontaneous Speech Memory Description: Episodic Impaired Diagnostics Vital Signs (24Hr): Vital Signs - 24 hr 02/02/24 19:47 02/03/24 08:00 Temperature 97.5 F 97.4 F Pulse Rate 66 66 Respiratory Rate 16 18 Blood Pressure 129/75 114/55 L Pulse Oximetry 99 95 Oxygen Delivery Method Room Air Room Air BMI result Body Mass Index 26.4 Labs 01/21/24 14:41 01/22/24 07:55 Labs: Laboratory Results - last 48 hr 01/28/24 08:19 Vitamin A 64 Alpha-Tocopherol Vit E 12.8 B- and G-Tocopherol <1.0 Vitamin K1 543 Zinc 57 L Imaging Radiology Impressions: ITS Impressions Head CT 01/26/24 13:55 IMPRESSION: *No acute intracranial abnormalities. *Unchanged 1.2 cm benign-appearing calcified focus within the fourth ventricle stable compared with 12/14/2022. No associated hydrocephalus. This finding may represent calcified choroid plexus cyst or choroid plexus papilloma. Medications Medications Current Medications Acetaminophen (Acetaminophen 325 Mg Tablet) 650 mg PO Q6H PRN PRN Reason: Headache/Pain Mild Scale (1-3) Last Admin: 01/23/24 09:18 Dose: 650 mg Al Hydroxide/Mg Hydroxide (Magnesium Hydrox/Alum Hydrox 30 Ml Oral.Susp) 30 ml PO Q6H PRN PRN Reason: Heartburn/Nausea Benztropine Mesylate (Benztropine Mesylate 1 Mg Tablet) 1 mg PO BID [facility] Last Admin: 02/03/24 08:51 Dose: 1 mg Haloperidol Decanoate (Haloperidol Decanoate 50 Mg/Ml Vial) 100 mg IM Q14D [facility] Last Admin: 02/01/24 09:32 Dose: 100 mg Hydroxyzine HCl (Hydroxyzine Hcl 25 Mg Tablet) 25 mg PO Q6H PRN PRN Reason: Anxiety [place] Carbonate ([place] Carbonate Er 450 Mg Tablet.Er) 450 mg PO BID [facility] Last Admin: 02/03/24 08:51 Dose: 450 mg Magnesium Hydroxide (Milk Of Magnesia 30 Ml Oral.Susp) 30 ml PO DAILY PRN PRN Reason: Constipation Meclizine HCl (Meclizine Hcl 12.5 Mg Tablet) 12.5 mg PO Q8H PRN PRN Reason: dizziness Multivitamins/Vitamin C (Multivitamin Tablet) 1 tab PO DAILY [facility] Last Admin: 02/03/24 08:51 Dose: 1 tab Olanzapine (Olanzapine 5 Mg Tablet) 5 mg PO Q4H PRN PRN Reason: psychosis agitation Last Admin: 01/23/24 09:18 Dose: 5 mg Olanzapine (Olanzapine 10 Mg Tablet) 10 mg PO BEDTIME [facility] Last Admin: 02/02/24 21:20 Dose: 10 mg Trazodone HCl (Trazodone Hcl 50 Mg Tablet) 50 mg PO BEDTIME MRX1 PRN PRN Reason: Insomnia Last Admin: 02/02/24 22:20 Dose: 50 mg Allergies Allergies Allergy/AdvReac Type Severity Reaction Status Date / Time bupropion [From Wellbutrin] Allergy Mild CAUSES Verified 01/21/24 14:21 SWOLLEN HEAD tetracycline [Tetracycline] Allergy Mild UNKNOWN Verified 01/21/24 14:21 trifluoperazine Allergy Mild UNKNOWN Verified 01/21/24 14:21 [From Stelazine] clozapine [From Clozaril] AdvReac Mild SEIZURES,NE Verified 01/21/24 14:21 UTROPENIA Assessment & Plan Assessment & Plan (1) Schizoaffective disorder: Status: Acute Code(s): F25.9 - Schizoaffective disorder, unspecified Assessment and Plan: Regarding medications has a clear understanding of his meds and reports a are Haldol long-acting injectable 100 mg every 2 weeks last received 5 days ago. Reports outpatient provider suggested Haldol 2 mg as needed but reports he does not want to take this as he reports feeling stiff. No longer on Invega Sustenna injection. [place] is 300 mg twice daily. Cogentin 1 mg twice daily. Did discuss during last admission being on olanzapine as needed, higher doses of lithium and hydroxyzine p.r.n.. Patient agreed to increase lithium to total daily dose of 900 mg. Olanzapine scheduled and as needed. 01/23/2024: No changes as lithium and olanzapine recently adjusted. [place] level during the week. 01/24/2024: Continue tx. 01/25/2024: Continue tx. 01/26/24: Repeat CAT-no changes Meclizine prn for vertigo, dizziness Will research vitamin ingredients as pt reports overtaking for a few months. 01/27/24: Vitamin A,D,E,K levels, Magnesium Level, Zinc level [place] titration 01/28/24: Continue tx. 01/28: continue current management and treatment plan. 01/29: Li level in AM. Consider further titration depending on results. 01/30 continue tx. 01/31 may try one time sumatriptan for potential headache or migraine. check ortho VS. continue all other meds. 02/03/24- discharge 02/03. Pt is feeling ready to move forward in his treatment planning back to out pt care. Reason for continued inpatient stay Substantial Risk for: stable for discharge Time Spent With Patient Time: Total time managing care of this patient today ____ minutes.
[2024-02-03 20:00] VITALS: BP 136/75; PULSE 79; RESP 16; TEMP 36.2; O2SAT 99
[2024-02-03] MEDS: OLANZapine 10 MG TABLET PO (20:30)
[2024-02-04 08:00] VITALS: BP 119/64; PULSE 61; RESP 16; TEMP 36.5; O2SAT 96
[2024-02-04] MEDS: Multivitamin TABLET 1 TAB PO (09:17)
[2024-02-04] MEDS: Benztropine Mesylate 1 MG TABLET PO (09:18)
[2024-02-04] MEDS: Lithium Carbonate ER 450 MG TABLET.ER PO (09:18)
[2024-02-04] MEDS: OLANZapine 5 MG TABLET PO (09:19)
--- NOTE | 2024-02-04 11:48 | P.DS_ITS ---
DS: Providers Provider Date of Service: 02/04/24 Date of admission: 01/21/24 19:16 Date of discharge: 02/04/24 Primary care physician: Fallon Ruvalcaba CNP Admitting clinician: Cuauhtemoc Layton Attending physician on admission: Cuauhtemoc Layton Attending physician on discharge: Hugh Flores Discharging clinician: Apoorva Almendarez DS: Diagnosis Discharge Diagnosis (1) Schizoaffective disorder: Status: Acute DS: Medications Discharge Medications Home Medications: Previous Rx's ?Medication ?Instructions ?Recorded benztropine 1 mg tablet 1 mg PO BID #60 tabs 02/03/24 haloperidol decanoate 50 mg/mL 100 mg (2 mL) IM Q14D #2 mL 02/03/24 intramuscular solution lithium carbonate 450 mg 450 mg PO BID #60 tabs 02/03/24 tablet,extended release multivitamin (Daily-Ashley tablet) 1 tab PO DAILY #30 tabs 02/03/24 trazodone 50 mg tablet 50 mg PO BEDTIME MRX1 PRN Insomnia 02/03/24 #60 tabs olanzapine 5 mg tablet 5 mg PO BID #60 tabs 02/04/24 Mental Status Exam Mental Status Exam Patient Appearance: Appropriate Patient Orientation: Person, Place and Situation Level of Consciousness: Alert Patient Behavior: Guarded and Suspicious Mood Description: Suspicious Affect Description: Constricted Patient Cognition Impaired: No Ability to Follow Directions: Good Speech Pattern: Spontaneous Speech Memory Description: Episodic Impaired Data Data Completed and Pending Completed studies during hospitalization [Text1]: 01/28/24 01/31/24 08:19 08:12 Vitamin A 64 Alpha-Tocopherol Vit E 12.8 B- and G-Tocopherol <1.0 Vitamin K1 543 [place] 0.48 L Zinc 57 L Imaging Diagnostic Imaging Impressions Head CT 01/26/24 13:55 IMPRESSION: *No acute intracranial abnormalities. *Unchanged 1.2 cm benign-appearing calcified focus within the fourth ventricle stable compared with 12/14/2022. No associated hydrocephalus. This finding may represent calcified choroid plexus cyst or choroid plexus papilloma. DS: Summary Hospital Course Hospital Course: Admission to adult psychiatry for exacerbation of schizoaffective disorder along with SI and symptoms of psychosis. Medications were evaluated and adjusted. [place] was adjusted. Olanzapine was added to regime. Pt was able to participate in the milieu and find benefit from milieu groups. [facility] made connections with pt during his stay and discussed different community opportunities post discharge pt is interested in. Pt will return home and to his out patient providers. He reports feeling improved and is pleased to return to his home. Status at Discharge Functional status at discharge: independent ambulation Overall status at discharge: patient is back to baseline Time Spent with Patient Time attestation: Total time managing care of this patient today ____ minutes. Time spent: Less than 30 minutes Discharge Plan Discharge Anticipated Discharge Date/Time: 02/04/24 12:00 Patient Disposition: Home, Self-Care Discharge Diagnosis: Schizoaffective Disorder Referrals: [facility] [Other] - 1 Week (fax- [phone] Re start services at D/C ) aFllon Ruvalcaba CNP [Primary Care Provider] - 1 Week (OFFICE WILL CALL PATIENT WITH FOLLOW-UP APPOINTMENT.) Discharge Medications: New lithium carbonate 450 mg Tablet Extended Release 450 mg PO BID Qty: 60 0RF benztropine 1 mg Tablet 1 mg PO BID Qty: 60 0RF haloperidol decanoate 50 mg/mL Solution 100 mg IM Q14D Qty: 2 0RF multivitamin [Daily-Ashley] Tablet 1 tab PO DAILY Qty: 30 0RF trazodone 50 mg Tablet 50 mg PO BEDTIME MRX1 PRN (Reason: Insomnia) Qty: 60 0RF olanzapine 5 mg tablet 5 mg PO BID Qty: 60 0RF Discontinued lithium carbonate 300 mg capsule 300 mg PO BID haloperidol decanoate 100 mg/mL solution 100 mg IM Q4W benztropine 1 mg tablet 1 mg PO DAILY Discharge Orders: Discharge Order (Routine); Ordered 02/04/24 Ordered By: Apoorva Almendarez Diet: Advance to usual diet Activity on Discharge: As tolerated Stand Alone Forms: Patient Portal Discharge page, Community Support Print Language: Syriac Care Plan Goals: Mood and Behavioral Stabilization Health Concerns: Mood and Behavioral Stabilization Plan of Treatment: Attend scheduled appointments Take medications as directed Haldol Injection is due on January Assessment: Scheduled discharge No SI/HI/AH/VH no sx of estelle or psychosis Discharge Date/Time: 02/04/24 11:44
== END 2024-02-04 11:44 | disposition home or self-care (01) | DRG 885 ==
LOC: HO.ED 17:37 → HO.PM5 19:30
PROVIDERS: Psychiatry & Neurology Psychiatry; Registered Nurse Emergency; Admitting Provider Social Worker; Emergency Provider Student in an Organized Health Care Education/Training Program; PCP Nurse Practitioner Family; Visit Provider Clinical Nurse Specialist Psychiatric/Mental Health, Adult
DX: F25.9 Schizoaffective disorder, unspecified (principal); Z79.899 Other long term (current) drug therapy
CPT/HCPCS: 36415; 70450; 80053; 80061; 80178; 80307; 81003; 82306; 83036; 83735; 84446; 84590; 84597; 84630; 85025; 93005; 99285; J1631; S9485

== ENCOUNTER → 2024-01-21 14:28 | Outpatient (BNV) | payer OTHER, SELFPAY | PROVIDERS: Admitting Provider Social Worker; Emergency Provider Student in an Organized Health Care Education/Training Program; PCP Nurse Practitioner Family; Visit Provider Internal Medicine Cardiovascular Disease | DX: R00.1 Bradycardia, unspecified (principal) | CPT/HCPCS: 93010 ==

== ENCOUNTER → 2024-01-21 19:16 | Outpatient (BNV) | payer OTHER, SELFPAY | PROVIDERS: Admitting Provider Social Worker; Emergency Provider Student in an Organized Health Care Education/Training Program; PCP Nurse Practitioner Family; Visit Provider Psychiatry & Neurology Psychiatry | DX: F25.0 Schizoaffective disorder, bipolar type (principal) | CPT/HCPCS: 99222; 99231; 99232; 99238 ==

== ENCOUNTER 2024-04-30 09:20 | Emergency (ER) | payer OTHER, SELFPAY ==
--- NOTE | 2024-04-30 | ECG_ITS ---
Test Reason : L ARM PAIN Blood Pressure : / mmHG Vent. Rate : 075 BPM Atrial Rate : 075 BPM P-R Int : 180 ms QRS Dur : 104 ms QT Int : 394 ms P-R-T Axes : 076 020 033 degrees QTc Int : 439 ms Normal sinus rhythm Normal ECG When compared with ECG of 21-JAN-2024 14:43, No significant change was found Referred By: Generic ED Physician Electronically Signed By:Quintin Coulter
--- NOTE | ~2024-04-30 | XR_ITS ---
EXAMINATION: XR SHOULDER 2 OR MORE VIEWS LEFT CLINICAL INFORMATION: atraumatic pain in left shoulder COMPARISON: None available at the time of this dictation. TECHNIQUE: Frontal lateral and scapular Y view of the shoulder. Total of 3views FINDINGS: BONES: There is no fracture or dislocation, no osteolytic or osteoblastic lesion. JOINTS: Glenohumeral joint is properly positioned. There is mild degenerative osteoarthritis of the acromioclavicular joint. SOFT TISSUE AND INCLUDED LUNG: Normal. XR/XR shoulder LT min 2V IMPRESSION: Except for mild DJD of the AC joint, exam is normal. Electronically signed by: Neal Langford MD 04/30/2024 10:45 AM [facility]
[2024-04-30 09:26] VITALS: BP 134/88; PULSE 77; RESP 18; TEMP 36.4; O2SAT 96; BMI 27.5
--- NOTE | 2024-04-30 09:47 | ED.EXTPRO ---
HPI - Extremity Problem General Chief complaint: Extremity Problem Stated complaint: l arm pain Time Seen by Provider: 04/30/24 10:48 Source: patient Mode of arrival: ambulatory Limitations: no limitations History of Present Illness ED Provider: Jacqueline Simons APRN HPI Narrative: 58 yo male with past medical history of schizoaffective disorder here with atraumatic left arm pain x 2-3 weeks. Pain is worsened with movement of the shoulder. Pain radiates from left trapezius to left shoulder and to bicep. No associated weakness, numbness or tingling of the extremity. No swelling, redness, warmth, fevers, chills. Has tried Tylenol at home with continued pain. He is right hand dominant. He denies chest pain, shortness of breath, diaphoresis, vomiting, dizziness, abdominal pain, back pain. Related Data Previous Rx's ?Medication ?Instructions ?Recorded benztropine 1 mg tablet 1 mg PO BID #60 tabs 02/03/24 haloperidol decanoate 50 mg/mL 100 mg (2 mL) IM Q14D #2 mL 02/03/24 intramuscular solution lithium carbonate 450 mg 450 mg PO BID #60 tabs 02/03/24 tablet,extended release multivitamin (Daily-Ashley tablet) 1 tab PO DAILY #30 tabs 02/03/24 trazodone 50 mg tablet 50 mg PO BEDTIME MRX1 PRN Insomnia 02/03/24 #60 tabs olanzapine 5 mg tablet 5 mg PO BID #60 tabs 02/04/24 diclofenac sodium 1 % topical gel 4 g topical QID PRN pain #100 grams 04/30/24 (Voltaren Arthritis Pain) naproxen 500 mg tablet 500 mg PO BID PRN pain #30 tabs 04/30/24 Allergies Allergy/AdvReac Type Severity Reaction Status Date / Time bupropion [From Wellbutrin] Allergy Mild CAUSES Verified 04/30/24 09:27 SWOLLEN HEAD tetracycline [Tetracycline] Allergy Mild UNKNOWN Verified 01/21/24 14:21 trifluoperazine Allergy Mild UNKNOWN Verified 01/21/24 14:21 [From Stelazine] clozapine [From Clozaril] AdvReac Mild SEIZURES,NE Verified 01/21/24 14:21 UTROPENIA Review of Systems Review of Systems: Yes all other systems are reviewed and are negative Constitutional: Constitutional: Reports no additional constitutional complaints, Denies body ache(s), Denies chills, Denies fever(s), Denies headache(s), Denies night sweats, Denies weakness and Denies weight loss Eyes: Eyes: Reports no additional eye complaints and Denies change in vision ENT: Reports system reviewed and no additional complaints, except as documented, Denies dizziness, Denies headache(s), Denies nasal congestion, Denies nasal discharge and Denies neck pain Cardiovascular: Cardiovascular: Reports no additional cardiovascular complaints, Denies chest pain, Denies leg edema and Denies dyspnea Respiratory: Respiratory: Reports no additional respiratory complaints, Denies cough and Denies dyspnea Gastrointestinal: Gastrointestinal: Reports no additional gastrointestinal complaints, Denies abdominal pain, Denies diarrhea, Denies nausea and Denies vomiting Genitourinary: Genitourinary: Denies urinary incontinence Musculoskeletal: Musculoskeletal: Reports no additional musculoskeletal complaints, Denies back pain, Reports arthralgias, Denies joint swelling, Denies limited range of motion, Denies neck pain, Denies numbness, Reports radiating pain into limb and Denies tingling Integumentary/Breasts: Skin/Breast: Reports system reviewed and no additional complaints, except as docu and Denies rash Neurologic: Reports system reviewed and no additional complaints, except as documented, Denies Abnormal speech present, Denies dizziness, Denies headache(s), Denies numbness, Denies tingling and Denies weakness PMFSH Past Medical History Attestation statement: The following information was validated with the patient. Source: old records reviewed and nursing notes reviewed Medical History Schizoaffective disorder, bipolar type Social History Social History Household Members: Family Household Members Other:: Father , gf. Father in [place] at this time. Housing: Apartment Housing Other:: [facility] Do you presently have visiting nurse or other home services: Yes (Twice a day nurses for medication.) Unable to assess alcohol history related to: Unknown Alcohol intake: unknown Comment: 1:1 sitter Patient Tobacco Use Status: Never used Tobacco e-Cigarette/Vaping Use: Never Used Second Hand Smoke Exposure: No Use of substances other than those prescribed or required for medical reasons: Unknown Substance Use Type: Caffiene Advance Directives: No Advance Directives Information Provided: No service: Yes ([place]) Sexual orientation: Straight/Heterosexual Physical Exam Vital Signs: Vital Signs: Last Vital Signs Temp 98.5 F 04/30/24 11:30 Pulse 75 04/30/24 11:30 Resp 18 04/30/24 11:30 BP 138/86 04/30/24 11:30 Pulse Ox 99 04/30/24 11:30 O2 Del Method Room Air 04/30/24 11:30 BMI result Body Mass Index 27.5 Const: General: cooperative, healthy appearing, comfortable and no acute distress Orientation/consciousness: patient oriented x3 Limitations: no limitations HEENT: Head: Yes normal to inspection Ears: hearing grossly normal bilaterally General nose exam: Normal external nose present Face and sinus: Yes normal facial exam Mouth: Normal oral and palatal mucosa present Throat: Yes posterior oropharynx normal Eyes: General: appearance normal, both eyes and all related structures Pupils: Equal, round and reactive pupils present Neck: Neck: Yes normal visual inspection Chest: Chest palpation & inspection: normal inspection of the chest Resp: Effort & Inspection: normal respiratory effort Auscultation: clear to auscultation bilaterally Cardio: Rate: regular rate Rhythm: regular rhythm Peripheral pulses: Peripheral pulses 2+ throughout GI: Inspection: Yes normal to inspection Palpation (GI): Soft to palpation and nontender Auscultation: normal bowel sounds Back/Spine/Pelvis: Thoracic/Lumbar Spine: thoracic and lumbar spine normal to inspection Skin: General skin exam: no rashes or lesions noted Neuro: General: patient oriented x3, moves all extremities, no focal motor deficits and normal sensation to monofilament Cranial nerves: Yes CN's II-XII intact bilaterally, Yes Equal, round and reactive pupils present, Yes Bilaterally intact EOM present, Yes Nystagmus not present, Yes Normal facial strength present and Yes Midline tongue present Cognition (Neuro): normal cognition Speech: No Abnormal speech present Gait exam (Neuro): Normal gait present Motor exam (neuro): 5/5 motor strength present throughout Sensory Exam: Normal double simultaneous stimulation for sensation Extrem: Other: TTP to left shoulder at the AC joint and left proximal humerus which is worsened with abduction of the extremity. Full active/passive ROM Normal distal sensation Distal joints normal ROM 2+ radial/ulnar pulses General: Yes normal to inspection Course Course Course Narrative: This is a rapid medical exam. deferred additional HPI, ROS, PE to primary provider. 58yo male with past medical history of schizoaffective disorder here with atraumatic left arm pain x 2-3 weeks. Pain is worsened with movement of the shoulder. Will obtain x-rays, EKG ordered from triage RACHEL Tariq APRN Reevaluation(s) Reevaluation #1: X-rays show arthritis of the L AC joint. This is most consistent with the patient's area of pain. I will initiate a NSAID, topical cream, supportive measures at home and follow up with primary for any continued symptoms. I have low suspicion for septic joint with full range of motion. Low suspicion for ACS as symptoms are nonexertional, reproducible and EKG is nonischemic. Medical Decision Making Medical Decision Making [facility] Narrative: 58 yo male with past medical history of schizoaffective disorder here with atraumatic left arm pain x 2-3 weeks. Pain is worsened with movement of the shoulder. Pain radiates from left trapezius to left shoulder and to bicep. No associated weakness, numbness or tingling of the extremity. No swelling, redness, warmth, fevers, chills. Has tried Tylenol at home with continued pain. He is right hand dominant. He denies chest pain, shortness of breath, diaphoresis, vomiting, dizziness, abdominal pain, back pain. TTP to left shoulder at the AC joint and left proximal humerus which is worsened with abduction of the extremity. Will obtain x-rays, review EKG from triage Differential Diagnosis Differential Diagnoses: The differential diagnosis associated with the presentation includes Strain, strain, bursitis, tendonitis, arthritis, radiculopathy Low suspicion for dislocation, fracture, septic arthritis, ACS, malignancy Admission/Observation Consideration of admission/observation: Escalation of care including admission/observation considered See course of care Independent Interpretation I performed an independent interpretation of an: EKG and Plain X-Ray Interpretation: I independently reviewed the x-ray and agree with the rad report I independently reviewed EKG which is normal pr, normal qrs, nonischemic Radiology Impression Discussion of test interpretation with radiology: I have reviewed the radiologist's reading. Radiologist Impression: [address] [address] XRay Report Signed Patient: Eriberto Bradford MR#: [id number] : 1965 Acct:[id number] Age/Sex: 58 / M ADM Date: 04/30/24 Loc: HO.ED Attending Dr: Ordering Physician: Jacqueline Gonzalez NP Date of Service: 04/30/24 Procedure(s): XR shoulder LT min 2V Accession Number(s): [id number] cc: Physician,Unknown ; Jacqueline Gonzalez NP~ EXAMINATION: XR SHOULDER 2 OR MORE VIEWS LEFT CLINICAL INFORMATION: atraumatic pain in left shoulder COMPARISON: None available at the time of this dictation. TECHNIQUE: Frontal lateral and scapular Y view of the shoulder. Total of 3views FINDINGS: BONES: There is no fracture or dislocation, no osteolytic or osteoblastic lesion. JOINTS: Glenohumeral joint is properly positioned. There is mild degenerative osteoarthritis of the acromioclavicular joint. SOFT TISSUE AND INCLUDED LUNG: Normal. XR/XR shoulder LT min 2V IMPRESSION: Except for mild DJD of the AC joint, exam is normal. Electronically signed by: Neal Langford MD 04/30/2024 10:45 AM [facility] Independent Historian Clinical information obtained from an independent historian. History obtained from or confirmed by: Friend Tests considered The following testing was considered but not selected: See course of care Prescription Management I considered prescription management with: Pain Medication Discharge Plan Discharge Clinical Impression: AC (acromioclavicular) joint arthritis Patient Disposition: Home, Self-Care Instructions: Shoulder Pain (ED), Arthritis (ED), Rotator Cuff Injury Exercises (DC) Additional Instructions: I have attached some exercises for you to do at home You may apply heat or ice to the area Gentle stretching Take the medications as prescribed Follow-up with primary care doctor for any continued symptoms Prescriptions: New naproxen 500 mg tablet 500 mg PO BID PRN (Reason: pain) Qty: 30 0RF diclofenac sodium [Voltaren Arthritis Pain] 1 % gel 4 g topical QID PRN (Reason: pain) Qty: 100 0RF Rx Instructions: apply to single affected area No Action lithium carbonate 450 mg Tablet Extended Release 450 mg PO BID Qty: 60 0RF benztropine 1 mg Tablet 1 mg PO BID Qty: 60 0RF haloperidol decanoate 50 mg/mL Solution 100 mg IM Q14D Qty: 2 0RF multivitamin [Daily-Ashley] Tablet 1 tab PO DAILY Qty: 30 0RF trazodone 50 mg Tablet 50 mg PO BEDTIME MRX1 PRN (Reason: Insomnia) Qty: 60 0RF olanzapine 5 mg tablet 5 mg PO BID Qty: 60 0RF Referrals: Physician,Unknown J [Primary Care Provider] - 1 week Interventions: ED Discharge Assessment Last Done: 04/30/24 11:30 Discharge Date/Time: 04/30/24 11:36 Print Language: Faroese
[2024-04-30 11:06] VITALS: BP 138/86; PULSE 75; RESP 18; TEMP 36.9; O2SAT 99
[2024-04-30 11:30] VITALS: BP 138/86; PULSE 75; RESP 18; TEMP 36.9; O2SAT 99
== END 2024-04-30 11:36 | disposition home or self-care (01) ==
PROVIDERS: Emergency Provider Emergency Medicine
DX: M19.012 Primary osteoarthritis, left shoulder (principal); M79.602 Pain in left arm
CPT/HCPCS: 73030; 93005; 99284

== ENCOUNTER → 2024-04-30 09:56 | Outpatient (BNV) | payer OTHER, SELFPAY | PROVIDERS: Emergency Provider Emergency Medicine; Visit Provider Internal Medicine Cardiovascular Disease | DX: M79.602 Pain in left arm (principal) | CPT/HCPCS: 93010 ==

== ENCOUNTER 2024-06-02 12:04 | Emergency (ER) | payer OTHER, SELFPAY ==
--- NOTE | ~2024-06-02 | XR_ITS ---
EXAMINATION: XR CHEST CLINICAL INFORMATION: pain COMPARISON: Chest radiograph dated July 03, 2023. TECHNIQUE: 2 views of the chest were obtained. FINDINGS: The heart is normal in size. The lungs are clear. There is no pleural effusion. There is no pneumothorax. No acute osseous abnormality. XR/XR chest 2V IMPRESSION: No acute cardiopulmonary disease. Electronically signed by: Da Pagan DO 06/02/2024 03:11 PM EST
--- NOTE | ~2024-06-02 | XR_ITS ---
EXAMINATION: XR ELBOW, LEFT CLINICAL INFORMATION: pain COMPARISON: None available. TECHNIQUE: AP, lateral, and oblique views of the left elbow. FINDINGS: The bones and soft tissues are normal. No fracture or joint effusion. Alignment is anatomic. Joint spaces are maintained. XR/XR elbow LT min 3V IMPRESSION: Normal left elbow. Electronically signed by: Rickie Jordan MD 06/02/2024 02:39 PM EST
--- OUTSIDE RECORDS SUMMARY | 2024-06-02 12:06 | XMS_ITS | Continuity of Care Document ---
Author Organization [facility] Ad[facility] lt Address [address] [place] [address]- Care Team Providers Care Respiratory Care Practitioner Name Role Phone Omero Fernandez DO Primary Care Physician [phone] Encounter [facility] [place] Date(s): 05/02/24 - 06/01/24 [facility] [place] Adult [address] [place] [address]- Encounter Type: Triage Allergies, Adverse Reactions, Alerts Substance Criticality Severity Reaction Reaction Severity Status penicillin Active Stelazine Active Clozaril Active Wellbutrin Active Immunizations [...] 08/11/22 Given tetanus-diphtheria toxoids (Td) 06/21/00 Given [id number] 12y+ bivalent booster vax 03/14/22 Recorded SARS-CoV-2 [...] 2Result Comment: [03/13/2015] wALALANAS 3Admin Note: [facility] 4Admin Note: TYLER 03-06-2013 FLUVIRIN 5Admin Note: given at [facility] 6Admin Note: VIS given publication 05/08/08 7Admin Note: tylers 8Admin Note: VIS GIVEN 9[facility] 10[facility]: [facility] Medic[facility] Benztropine = 1 mg, 2 times a day, 0 Refills, Maintenance, 04/15/23 10:58:00 AM EDT, Partial fill upon patient request if the prescription is for a schedule II opioid drug. Start Date: 04/15/23 Status: Ordered Repeat number: 1 Haldol LACTATE Inj pt reports gets IM haldol injection every 2 weeks by RN, does not know dose. Prescribed by psychiatrist, 0 Refills, Maintenance, 11/18/23 3:30:00 PM EDT, Partial fill upon patient request if the prescription is for a schedule II opioid drug. Start Date: 11/18/23 Status: Ordered Repeat number: 1 lithium 300 mg oral capsule 1 capsule = 300 mg, By Mouth, 2 times a day, pt reports dosing, prescribed by psychiatrist, 0 Refills, Maintenance, 11/18/23 3:29:00 PM EDT, Capsule, Partial fill upon patient request if the prescription is for a schedule II opioid drug. Start Date: 11/18/23 Status: Ordered Repeat number: 1 Naproxen By Mouth, 0 Refills, Maintenance, 05/11/24 12:42:00 PM EST, Partial fill upon patient request if the prescription is for a schedule II opioid drug. Start Date: 05/11/24 Status: Ordered Repeat number: 1 Olanzapine 0 Refills, Maintenance, 02/14/24 10:59:00 AM EDT, Partial fill upon patient request if the prescription is for a schedule II opioid drug. Start Date: 02/14/24 Status: Ordered Repeat number: 1 Trazodone By Mouth, 0 Refills, Maintenance, 05/11/24 12:42:00 PM EST, Partial fill upon patient request if the prescription is for a schedule II opioid drug. Start Date: 05/11/24 Status: Ordered Repeat number: 1 turmeric By Mouth, Daily, 0 Refills, Maintenance, 05/11/24 12:43:00 PM EST, Partial fill upon patient request if the prescription is for a schedule II opioid drug. 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 Telecom: Care Team Related Persons Name: IVY CALLE Name: STEFANIE LAMAR Name: ANYA LAMAR Insurance Providers Guarantor name: OMERO LAMAR Health Plan Information #: 1 Payer: [facility] CARE ALLIANCE/ONE CARE Member Number: NA Policy Number: NA Group Number: NA
--- OUTSIDE RECORDS SUMMARY | 2024-06-02 12:06 | XMS_ITS | Continuity of Care Document ---
Author Organization [facility] lt Address [address] [place] [address]- Care Team Providers Care Tank Car Cleaner Name Role Phone Omero Fernandez DO Primary Care Physician [phone] Encounter [facility] [place] Date(s): 05/11/24 - 05/18/24 [facility] Adult [address] [place] [address]- Encounter Diagnosis Degenerative joint disease of left acromioclavicular joint(Discharge Diagnosis) - 05/10/24 Schizoaffective disorder- bipolar type(Discharge Diagnosis) - 05/10/24 Attending Physician: Omero Fernandez DO Encounter Type: Office Visit Allergies, Adverse Reactions, Alerts Substance Criticality Severity [...] 08/11/22 Given tetanus-diphtheria toxoids (Td) 06/21/00 Given [id number] 12y+ bivalent booster vax 03/14/22 Recorded SARS-CoV-2 [...] CHRISTEN 03-06-2013 FLUVIRIN 5Admin Note: given at [facility] 6Admin Note: VIS given publication 05/08/08 7Admin Note: susy 8Admin Note: VIS GIVEN 9Admin Note: GIVEN AT [facility] ON 02-18-11 10Admin Note: [facility] Medications Benztropine = 1 mg, 2 [...] type Confirmed Active Tension headache Confirmed Active Diagnosis Diagnosis Type Effective Dates Health Status Clinical Service Informant Degenerative joint disease of left acromioclavicular joint Discharge Diagnosis 05/10/24 Schizoaffective disorder- bipolar type Discharge Diagnosis 05/10/24 Vital Signs Most recent to oldest [Reference Range]: 1 Height 188.30 cm (05/11/24 12:43 PM) Weight 96.2 kg (05/11/24 12:43 PM) Oxygen Saturation [94-100 %] 98 % (05/11/24 12:43 PM) Pulse Rate [55-90 bpm] 88 bpm (05/11/24 12:43 PM) Body Mass Index [18.5-24.99 kg/m2] 27.13 kg/m2 *H* (05/11/24 12:43 PM) Blood Pressure [90-138/55-84 mm Hg] 125/ 77mm Hg (05/11/24 12:43 PM) Respiratory Rate [16-30 br/min] 20 br/mi n (05/11/24 12:43 PM) Temperature [96.8-100.4 DegF] 98.2 DegF (05/11/24 12:43 PM) Mode of Delivery (Oxygen) Room air (05/11/24 12:43 PM) Blood pressure sites Arm, right (05/11/24 12:43 PM) Temperature Route Oral (05/11/24 12:43 PM) Weight Obtained Via Standing scale (05/11/24 12:43 PM) Social History Social History Type Response Smoking Status Never smoker entered on: 04/18/18 Sex Sex Representation Male (finding) Patient Care team information Care Team Personnel Name: Omero Fernandez DO Position: [facility] Physician - Primary Care Member Role: PCP Address: [address] [place], [place] [address] Telecom: Care Team Related Persons Name: IVY CALLE Name: STEFANIE LAMAR Name: ANYA LAMAR Insurance Providers Guarantor name: OMERO LAMAR Health Plan Information #: 1 [facility] Member Number: [id number] Policy Number: NA Group Number: [facility] Plan Information #: 2 [facility] Member Number: [id number] Policy Number: NA Group Number: NA
--- OUTSIDE RECORDS SUMMARY | 2024-06-02 12:06 | XMS_ITS | Data Portability ---
Author Organization [place] - [facility] Address [address] [place] [id number] Assessment Encounter Date Assessment Date Assessment LastModified by Organization Details LastModified Time 01/29/2021 01/29/2021 Overview/History : 55yo male who is new to with a PMHx of schizoaffective disorder, bipolar and obesity being seen for reports of dizziness when driving x 2 episodes on Wednesday. He says they lasted about 5 minutes each, no other episodes since. No headaches, vision changes, sensation of room spinning, chest pain, nausea or diaphoresis. Denies any recent colds, ear pain or blockage, fevers, N/V/D or SOB. He reports normal appetite but admits he could drink more fluids. Denies any falls, recent head injuries, headaches, tinnitus, hearing loss or confusion. No alcohol or drug use. Admits he has been taking an supplement. He refused to go downstairs to bring up pill bottle and could not recall the name, just called it herbs. Exam: Pt is alert nontoxic appearing, flat affect PERRLA 3mm, conjugate gaze, + horizontal nystagmus with L lateral gaze No focal deficits, 5/5 strength, normal gait Normal heart sounds, RRR Lungs are clear Abd soft, nontender DDx considered, but not limited to: Dehydration/metabo lic derangement- Chem 8 reassuring Vertigo likely Meniere? s disease possible CVA considered- no focal deficits ACS/dysrhythmias less likely no CP or palpitations Work up/Results: Chem 8 Physical exam Plan/Discussion: Discussed with patient his symptoms are consistent with vertigo. Exercises reviewed. Lab work wnl- advised to stay hydrated. Discontinue unknown herb supplement. Patient declined EKG today- reports its not my heart. No CP or palpitations. ER precautions reviewed, patient and his Dad verbalized understanding when to go to ED- if dizziness persists, he develops a headache, CP, SOB, palpitations or vision changes. The patient is advised to make an appt with PCP & Occupational Therapist Assistant in 3-5 days to discuss ongoing symptoms/ further management. The patient is also advised to go to the ED immediately for any worsening symptoms. The patient & his Dad understood and agreed with this plan. The patient was given discharge instructions and all questions were answered prior to DH team departure. In order to obtain further information and compare any laboratory results/values, I have accessed patient records on the [employer]. This information was pertinent in my medical decision making today. Proper Personal Protective Equipment (PPE), including gloves, eye protection and masks were donned and doffed appropriately and all equipment cleaned using approved technique with germicidal disposable wipes prior to and after care of this patient according to [facility]'s infection prevention protocols. [email or web address] Not available 01/29/2021 12:10:47 Plan of Treatment Reminders Order Date Submit Date Provider Last Modified By Organization Details Last Modified Time Details Appointments None recorded. Lab BMP + ionized calcium, serum or plasma 021 021 [facility], [address] [place] [address], [id number], 11:37:12 Referral None recorded. Procedures None recorded. Surgeries None recorded. Imaging None recorded. Medication Orders None recorded. Patient TargetsNo targets recorded. Patient Instructions Encounter Date Encounter Id Patient Instructions Last Modified By Organization Details Last Modified Time 01/29/2021 [id number] vertigo: care instructions [email or web address] Not available 01/29/2021 11:34:19 Your vitals: T-97.9 HR-90 B/P- 100/70 RR- 18 O2 sat 96% RA Try to stay hydrated especially on hot days. If you develop dizziness, sit or lay down until it passes. battery plate remover if driving. Stop taking herb supplement. If dizziness persists, you develop any chest pain, palpitation, headaches please be seen in ED for imaging. Thank you for your visit with [facility] today. We cannot always find the exact cause of your symptoms during your initial visit. Please follow up with your primary care provider or specialist within 12-24 hours within 24-48 hours within 2-3 days to be rechecked or seek medical attention if your symptoms do not go away or get worse. If you develop any new or worsening symptoms and need after hours care, please go to nearest ER and/or call 911. If you have additional concerns or develop a change in your condition between 8am-10pm, please call [facility] at [phone] to help navigate your care. [email or web address] Not available 01/29/2021 11:56:20 Lab ResultsBMP + ionized calcium, serum or plasma glu: 108mg/dL ? ref: 70-105 BUN: 14mg/dL ? ref: 8- crea: 0.8mg/dL ? ref: 0.6-1.3 Na: 143mmol/L ? ref: 138-146 K: 3.9mmol/L ? ref: 3.5-4.9 cL: 105mmol/L ? ref: 98-109 TCO2: 23mmol/L ? ref: 24-29 angap: 20mmol/L ? ref: 10-20 ica: 1.17mmol/L ? ref: 1.12-1.32 HCT: 45%pcv ? ref: 38-51 Hb: 15.3g/dL ? ref: 12-17 [email or web address] Not available 01/29/2021 11:38:19 Reason for Referral None Reported. Results Created Date Observation Date Name Description Value Unit Range Abnormal Flag Note LastModifiedBy Organization Detail LastModifiedTime 01/30/20 21 01/29/2021 BMP + IONIZ ED CALCI UM, SERUM OR PLASM A glu 108 mg/dL 70-105 Not Available [facility] [address] [place], [address], 01/29/2021 11:37:12 01/30/20 21 01/29/2021 BMP + IONIZ ED CALCI UM, SERUM OR PLASM A BUN 14 mg/dL 8-26 Not Available [address], [address], 01/29/2021 11:37:12 01/30/20 21 01/29/2021 BMP + IONIZ ED CALCI UM, SERUM OR PLASM A crea 0.8 mg/dL 0.6-1. 3 Not Available [address], [address], 01/29/2021 11:37:12 01/30/20 21 01/29/2021 BMP + IONIZ ED CALCI UM, SERUM OR PLASM A Na 143 mmol/ L 138-14 6 Not Available [address], [address], 01/29/2021 11:37:12 01/30/20 21 01/29/2021 BMP + IONIZ ED CALCI UM, SERUM OR PLASM A K 3.9 mmol/ L 3.5-4. 9 Not Available [address], [address], 01/29/2021 11:37:12 01/30/2001/29/2021 BMP + IONIZ ED CALCI UM, SERUM OR PLASM A cL 105 mmol/ L 98-109 Not Available [address], [address], 01/29/2021 11:37:12 01/30/20 21 01/29/2021 BMP + IONIZ ED CALCI UM, SERUM OR PLASM A TCO2 23 mmol/ L 24-29 Not Available [address], [address], 01/29/2021 11:37:12 01/30/20 21 01/29/2021 BMP + IONIZ ED CALCI UM, SERUM OR PLASM A angap 20 mmol/ L 10-20 Not Available [address], [address], 01/29/2021 11:37:12 01/30/20 21 01/29/2021 BMP + IONIZ ED CALCI UM, SERUM OR PLASM A ica 1.17 mmol/ L 1.12-1 .32 Not Available [facility] [address] [place], [address], 01/29/2021 11:37:12 01/30/20 21 01/29/2021 BMP + IONIZ ED CALCI UM, SERUM OR PLASM A HCT 45 %pcv 38-51 Not Available [facility] [address] [place], [address], 01/29/2021 11:37:12 01/30/20 21 01/29/2021 BMP + IONIZ ED CALCI UM, SERUM OR PLASM A Hb 15.3 g/dL 12-17 Not Available [facility] [address] [place], [address], 01/29/2021 11:37:12 Result Notes None recorded. Procedures Surgical History Date Name Laterality Status Provider Name and Address Organization Details Recorded Time 01/30/20 Venipuncture - completed Jessie Schroeder NP [address] [place], [address], [place] [facility] 01/29/2021 11:51:59 Imaging Results None recorded. Procedure Notes None recorded. Medical Equipment None Reported. Allergies Allergen ID Allergen Name Allergen Category Reaction Reaction Severity Criticality Documentation Date Start Date Code Code System Note Provider Name and Address Organization Details Recorded Time 965402 Wellbutri n medicatio n Not available Not available Not available 01/29/2021 61498 RxNorm Jessie Schroeder NP [address] [place], [address], [place] [facility] 10:56:40 [id number] Clozaril medicatio n Not available Not available Not available 01/29/2021 84974 2 RxNorm Jessie Schroeder NP [address] [place], [address], [place] [facility] 10:56:49 [id number] trifluope razine hydrochlo ride medicatio n Not available Not available Not available 01/29/2021 99005 RxNorm Jessie Schroeder NP [address], [place], [address], [place] [facility] 10:56:59 Medications Name Sig Start Date Stop Date Status Note LastModified by Organization Details LastModified Time olanzapine 20 mg tablet TAKE 1 TABLET BY MOUTH AT BEDTIME active Not Available Not Available No t Available bupropion HCl XL 300 mg 24 hr tablet, extended release TAKE 1 TABLET BY MOUTH IN THE MORNING 01/29 completed Not Available Not Available Not Available Vitals Date Recorded Heart rate Body temperature Respiratory rate Oxygen saturation Oxygen saturation in Arterial blood by Pulse oximetry Systolic blood pressure Diastolic blood pressure Provider Name and Address Organization Details Last Updated DateTime 90 /min 97.9 [degF] 18 /min 96 % 96 % 100 mm[Hg] 70 mm[Hg] Not Available [facility] 11:24:10 Social History Question Answer Notes LastModified by Organizat ion Details LastModified Time Tobacco Smoking Status Never Smoker Jessie Schroeder NP [address], [place], [address], [place] [facility] 01/29/2021 12:11:14 What Is Your Level Of Alcohol Consumption? None [email or web address] Information not available 01/29/2021 What Is Your Code Status? Full Code [email or web address] Information not available 01/29/2021 Excessive Alcohol Or Drug Use No [email or web address] Information not available 01/29/2021 Does This Patient Have A PCP? Yes [email or web address] Information not available 01/29/2021 Do You Use Any Illicit Or Recreational Drugs? No Information not available 01/29/2021 Do You Or Have You Ever Used Any Other Forms Of Tobacco Or Nicotine? No [email or web address] Information not available 01/29/2021 Sex: Unknown Functional Status None recorded. Mental Status None recorded. Family History Relationship Description Onset Age of this Age Resolved Age Notes LastModified by Organization Details LastModified Time Mother Hypertensive disorder [email or web address] Not available 2020 11:02:06 Medical History Condition Response Diabetes N Coronary Artery Disease N Cancer N Stroke N Asthma N COPD N Depression N High Cholesterol N Pulmonary Embolism N Hypertension N Kidney Disease N Past Encounters Encounter ID Performer Location Encounter Start Date Encounter Closed Date Diagnosis/Indication Diagnosis SNOMED-CT Code Diagnosis ICD10 Code [id number] Jessie Schroeder NP [facility] [address] [place] [address] 01/29/2021 10:54:01 01/31/2021 15:51:51 Dizziness present 462913064 R42 Dehydration 71695073 E86 .0 Vertigo 095999220 R42 Health Concerns Section Related Observation LastModified by Organization Detai ls LastModified Time None Recorded Concern Status LastModified by Organization Details LastModified Time None Recorded Advance Directives Directive None Recorded Payers Encounter Date Sequence Insurance Name Policy Number Policy Landa Covered Member ID Landa Member ID Guarantor Name 01/29/2021 2 [place] [facility] Eriberto Bradford [id number] Eriberto Bradford 01/29/2021 1 [facility] - DOS PRIOR TO 2022 - DUAL ELIGIBLE (MEDICARE REPLACEMENT/ADV ANTAGE - HMO) Eriberto Bradford [id number] Eriberto Bradford Notes Date Note Type Note Provider Name and Address Organization Details Recorded Time 01/29/2021 text/html 55yo male who is new to with a PMHx of schizoaffective disorder, bipolar and obeity being seen for reports of dizziness when driving. He reports it has been happening over the past few days. It is self limiting. Denies any drug or alcohol use. Reports normal appetite, admits he could drink more fluids. No fainting or LOC. No falls. No trauma or recent head injuries. No ear pain, reports of room spinning or recent colds. No fevers, N/V/D, CP or SOB. He is fully vaccinated against Covid. No headaches. Episodes do not happen when he goes from sitting to standing- has only occurred when driving during the day. No vision changes. Jessie Schroeder NP [address], [place], [address], [place] [facility] 01/29/2021 12:11:31
[2024-06-02 13:00] VITALS: BP 170/102; PULSE 90; RESP 18; TEMP 36.1; O2SAT 97; BMI 27.7
--- NOTE | 2024-06-02 13:02 | ECG_ITS ---
Test Reason : arm pain Blood Pressure : / mmHG Vent. Rate : 070 BPM Atrial Rate : 070 BPM P-R Int : 172 ms QRS Dur : 096 ms QT Int : 414 ms P-R-T Axes : -03 060 039 degrees QTc Int : 447 ms Normal sinus rhythm Incomplete right bundle branch block Borderline ECG When compared with ECG of 30-APR-2024 09:56, No significant change was found Referred By: Adam Vale Electronically Signed By:AKOSUA MOROCHO MD
--- NOTE | 2024-06-02 13:02 | ED_ITS ---
HPI - General Adult General Chief complaint: Extremity Problem Stated complaint: arm pain Time Seen by Provider: 06/02/24 17:33 Source: patient, RN notes reviewed and old records reviewed Mode of arrival: ambulatory Limitations: no limitations History of Present Illness ED Provider: Kavin LINDSAY narrative: 58-year-old male past medical history significant for schizoaffective disorder presents for evaluation of left arm pain. He reports he has had pain to his left arm for the last month His pain starts in the left side of his neck. The pain varies in location from his shoulder to his elbow. He denies any specific injury or trauma. His pain is currently a 7/10 He denies any trauma to the area On presentation to triage she was having pain just above his elbow Related Data Previous Rx's ?Medication ?Instructions ?Recorded benztropine 1 mg tablet 1 mg PO BID #60 tabs 02/03/24 haloperidol decanoate 50 mg/mL 100 mg (2 mL) IM Q14D #2 mL 02/03/24 intramuscular solution lithium carbonate 450 mg 450 mg PO BID #60 tabs 02/03/24 tablet,extended release multivitamin (Daily-Ashley tablet) 1 tab PO DAILY #30 tabs 02/03/24 trazodone 50 mg tablet 50 mg PO BEDTIME MRX1 PRN Insomnia 02/03/24 #60 tabs olanzapine 5 mg tablet 5 mg PO BID #60 tabs 02/04/24 diclofenac sodium 1 % topical gel 4 g topical QID PRN pain #100 grams 04/30/24 (Voltaren Arthritis Pain) naproxen 500 mg tablet 500 mg PO BID PRN pain #30 tabs 04/30/24 ibuprofen 600 mg tablet 600 mg PO Q6H PRN pain #20 tabs 06/02/24 Allergies Allergy/AdvReac Type Severity Reaction Status Date / Time bupropion [From Wellbutrin] Allergy Mild CAUSES Verified 06/02/24 13:03 SWOLLEN HEAD tetracycline [Tetracycline] Allergy Mild UNKNOWN Verified 06/02/24 13:03 trifluoperazine Allergy Mild UNKNOWN Verified 06/02/24 13:03 [From Stelazine] clozapine [From Clozaril] AdvReac Mild SEIZURES,NE Verified 06/02/24 13:03 UTROPENIA Review of Systems 2 Constitutional: Constitutional: Denies body ache(s), Denies chills, Denies fever(s) and Denies headache(s) Eyes: Eyes: Denies blurry vision ENT: Denies vertigo, Denies dizziness, Denies headache(s) and Reports neck pain Cardiovascular: Cardiovascular: Denies chest pain Respiratory: Respiratory: Denies cough Gastrointestinal: Gastrointestinal: Denies abdominal pain, Denies nausea and Denies vomiting Musculoskeletal: Musculoskeletal: Denies back pain, Reports arthralgias, Denies joint swelling, Denies limited range of motion and Reports neck pain Integumentary/Breasts: Skin/Breast: Denies rash Neurologic: Denies vertigo, Denies dizziness and Denies headache(s) Psychiatric: Psychiatric: Denies anxiety PMFSH Past Medical History Medical History Schizoaffective disorder, bipolar type Social History Social History Household Members: Family Household Members Other:: Father , gf. Father in [place] at this time. Housing: Apartment Housing Other:: [facility] Do you presently have visiting nurse or other home services: Yes (Twice a day nurses for medication.) Unable to assess alcohol history related to: Unknown Alcohol intake: unknown Comment: 1:1 sitter Patient Tobacco Use Status: Never used Tobacco e-Cigarette/Vaping Use: Never Used Second Hand Smoke Exposure: No Substance Use Type: Caffiene Advance Directives: No Advance Directives Information Provided: No service: Yes ([place]) Sexual orientation: Straight/Heterosexual Physical Exam ED Vital Signs: Vital Signs - 24 hr 06/02/24 13:00 06/02/24 16:48 Temperature 97 F Pulse Rate 90 80 Respiratory Rate 18 16 Blood Pressure 170/102 H 139/85 Pulse Oximetry 97 98 Oxygen Delivery Method Room Air Room Air BMI result Body Mass Index 27.7 Const General: healthy appearing, comfortable, no acute distress, alert and awake Nutritional Appearance: well nourished Orientation/consciousness: patient oriented x3 HENMT Head: Yes normocephalic and Yes atraumatic Eyes Eyelids: Yes eyelids normal Conjunctivae: conjunctivae normal Sclerae: sclerae normal Corneas: corneas normal Pupils: Equal, round and reactive pupils present EOM: EOMs intact bilaterally Neck Neck: Yes full ROM Resp Effort & Inspection: normal respiratory effort, able to speak in complete sentences and not labored Cardio Rate: regular rate Rhythm: regular rhythm GI Inspection: No distended Palpation (GI): Soft to palpation, not firm, nontender, no guarding and not rigid Skin General skin exam: elasticity normal Neuro General: patient oriented x3 Cranial nerves: Yes CN's II-XII intact bilaterally, Yes Equal, round and reactive pupils present and Yes Bilaterally intact EOM present Extrem Other: Moving all extremities well without any obvious deformities. There is no edema, rashes to the left upper extremity. No tenderness to palpation of the left elbow or left shoulder. The patient does have tenderness to the left cervical paraspinous region. Course Course Course Narrative: RME, this is a rapid medical exam performed by Eyal Vale please refer to primary provider for complete H&P- 58-year-old male past medical history significant for schizoaffective disorder presents for evaluation of left arm pain. He indicates the area of his left elbow. He reports the pain has been present for about 1 month. His pain is worse with movement. He has chest pain today but is unsure when it started. The patient is a very poor historian, plan for EKG, labs, x-ray of the chest and left elbow. Will also get viral swabs as she reports having a ?cold. ? Medications Administered Discontinued Medications Generic Name Dose Route Start Last Admin Trade Name Freq PRN Reason Stop Dose Admin Ketorolac Tromethamine 30 mg 06/02/24 17:36 06/02/24 17:41 Ketorolac Tromethamine 30 Mg/Ml Vial IM 06/02/24 17:37 30 mg ONCE ONE Administration Medical Decision Making Medical Decision Making [facility] Narrative: 58-year-old male presents for evaluation of left-sided arm pain. He reports intermittent chest pain over last couple weeks but has no current chest pain. He has a fairly poor historian. I did do a cardiac workup given his intermittent chest pain, his EKG is normal sinus rhythm there was a significant amount of artifact in lead V1. There was no ST segment elevation or depressions in any the leads. His labs have no concerning abnormalities, his troponin is negative and which the reassuring EKG findings he rules out for ACS. Chest x- ray and left elbow x-ray without acute findings. Clinically the patient has tenderness to the paracervical region, it is likely that his left arm pain is related to a cervicalgia. We will treat him with Toradol and he will be discharged with ibuprofen Differential Diagnosis Differential Diagnoses: The differential diagnosis associated with the presentation includes Cervicalgia Left arm pain Arthritis Lateral epicondylitis Lab Data MDM Lab Attestation statement: I reviewed the patient's lab results. No leukocytosis or anemia. Normal platelet count. No significant electrolyte abnormalities. Troponin is less than 2.7 06/02/24 13:29 06/02/24 13:29 Labs: Lab Results 06/02/24 Range/Units 13:29 WBC 8.3 (4.8-10.8) X10*3/uL RBC 4.73 (4.60-5.80) X10*6/uL Hgb 14.6 (14.0-18.0) g/dl Hct 42.7 (42.0-52.0) % MCV 90.3 (80.0-98.0) fL MCH 30.9 (27.0-33.0) pg MCHC 34.2 (31.0-36.0) g/dl RDW 12.3 (11.0-16.0) % Plt Count 290 (160-400) X10*3/uL MPV 10.1 (9.4-12.4) fL Immature Gran % (Auto) 0.2 (0.0-0.4) % Neut % (Auto) 75.6 H (45-73) % Lymph % (Auto) 15.8 L (20-40) % Baldwin % (Auto) 7.8 (2-11) % Eos % (Auto) 0.0 (0-4) % Baso % (Auto) 0.6 (0-2) % Lymph # (Auto) 1.3 (1.2-4.9) X10*3/uL Baldwin # (Auto) 0.7 (0.1-1.2) X10*3/uL Eos # (Auto) 0.0 (0.0-0.4) X10*3/uL Baso # (Auto) 0.1 (0.0-0.2) X10*3/uL Abs Immat Gran (auto) 0.02 (0.00-0.03) X10*3/uL Absolute Neuts (auto) 6.3 (2.0-8.3) x10*3/uL Absolute Nucleated RBC 0.000 (0.0-0.012) X10*3/uL Nucleated RBC % (auto) 0.0 (0.0-0.2) /100WBC PT 12.2 (10.9-12.4) SEC INR 1.0 (0.9-1.1) Sodium 143 (135-145) mmol/L Potassium 4.4 (3.3-5.1) mmol/L Chloride 109 H (96-108) mmol/L Carbon Dioxide 29 (22-29) mmol/L Anion Gap 9 L (12-20) BUN 7 L (9-16) mg/dL Creatinine 0.81 (0.5-1.4) mg/dL Estim Creat Clear Calc 109.6 Estimated GFR > 60 Random Glucose 75 (60-115) mg/dL Calcium 9.4 (8.4-10.2) mg/dL Total Bilirubin 0.3 (0.0-1.0) mg/dL AST 19 (5-37) U/L ALT 13 (0-40) U/L Alkaline Phosphatase 55 (39-117) U/L Troponin I High Sens < 2.7 (<3.5-35.0) ng/L Total Protein 6.8 (6.5-8.0) g/dL Albumin 3.9 (3.5-5.0) g/dL Influenza Type A (PCR) NEGATIVE (Negative) Influenza Type B (PCR) NEGATIVE (Negative) RSV RNA Qual (PCR) NEGATIVE (Negative) SARS-CoV-2 RNA (RT-PCR) NEGATIVE (Negative) Independent Interpretation I performed an independent interpretation of an: EKG (As above) and Plain X-Ray (Agree with Radiology interpretation) Radiology Impression Discussion of test interpretation with radiology: I have reviewed the radiologist's reading. Radiologist Impression: EXAMINATION: XR ELBOW, LEFT CLINICAL INFORMATION: pain COMPARISON: None available. TECHNIQUE: AP, lateral, and oblique views of the left elbow. FINDINGS: The bones and soft tissues are normal. No fracture or joint effusion. Alignment is anatomic. Joint spaces are maintained. XR/XR elbow LT min 3V IMPRESSION: Normal left elbow. Electronically signed by: Rickie Jordan MD 06/02/2024 02:39 PM [facility] FINDINGS: The heart is normal in size. The lungs are clear. There is no pleural effusion. There is no pneumothorax. No acute osseous abnormality. XR/XR chest 2V IMPRESSION: No acute cardiopulmonary disease. Electronically signed by: Da Ej DO 06/02/2024 03:11 PM EST Discharge Plan Discharge Clinical Impression: Arm pain, left Patient Disposition: Home, Self-Care Instructions: Arm Pain (ED) Additional Instructions: Your workup in the ER today was reassuring. This includes your cardiac workup, blood work, EKG, chest x-ray, x-ray of your left elbow Your pain in your arm may be related to a pinched nerve in your neck. I recommend using ibuprofen/Tylenol for pain Follow-up with your primary doctor Return for new or worsening symptoms Prescriptions: New ibuprofen 600 mg tablet 600 mg PO Q6H PRN (Reason: pain) Qty: 20 0RF No Action naproxen 500 mg tablet 500 mg PO BID PRN (Reason: pain) Qty: 30 0RF diclofenac sodium [Voltaren Arthritis Pain] 1 % gel 4 g topical QID PRN (Reason: pain) Qty: 100 0RF Rx Instructions: apply to single affected area lithium carbonate 450 mg Tablet Extended Release 450 mg PO BID Qty: 60 0RF benztropine 1 mg Tablet 1 mg PO BID Qty: 60 0RF haloperidol decanoate 50 mg/mL Solution 100 mg IM Q14D Qty: 2 0RF multivitamin [Daily-Ashley] Tablet 1 tab PO DAILY Qty: 30 0RF trazodone 50 mg Tablet 50 mg PO BEDTIME MRX1 PRN (Reason: Insomnia) Qty: 60 0RF olanzapine 5 mg tablet 5 mg PO BID Qty: 60 0RF Print Language: Amharic
[2024-06-02 13:34] LABS: MANUAL DIFF FLAG NO
--- OUTSIDE RECORDS SUMMARY | 2024-06-02 13:35 | XMS_ITS | Clinical Summary ---
Author Organization Unknown Care Team Providers Care Cushion Stuffer Name Role Phone STEPHANIE HAGAN, CARLOS Unavailable Unavailable SIGIFREDO CASTELLANOS, WIL Unavailable Unavailable Payers Payer Name Policy Type Policy Number Effective Date Expira tion Date [facility] [place] [id number] MEDICAID [facility] [employer] [facility] [id number] MEDICARE - [facility] MA/SC - PD [id number] Problems Condition Name Condition Details Condition Category Status Onset Date Resolution Date Last Treatment Date Treating Clinician Comments SCHIZOAFFECT DUNCAN DISORDER, BIPOLAR TYPE Active 12-14 00:00: 00 Allergies, Adverse Reactions, Alerts Allergy Name Allergy Type Status Severity Reaction(s) Onset Date Inactive Date Treating Clinician Comments TETRACYCLINE Propensity to adverse reactions Active 2022-06 015 16:33: 09 BUPROPRION Propensity to adverse reactions Active 2022-06 015 16:32: 18 TRIFLUOPERAZ INE Propensity to adverse reactions Active 2022-06 015 16:33: 51 CLOZAPINE Propensity to adverse reactions Active 2022-0615 16:34: 10 Medications Ordered Medication Name Filled Medication Name Start Date Stop Date Current Medication? Ordering Clinician Indication Dosage Frequency Signature (SIG) Comments Components carbamazepi ne ER 400 mg tablet,exte nded release,12 hr - 00:00: 00 03-30 23:59 :00 No [id number] 400 mg BEDTIME 400 mg BEDTIME (route: oral) Med Classific ation: Central Nervous System Agents lithium carbonate 600 mg capsule - 00:00: 00 03-30 23:59 :00 No [id number] 600 mg DAILY 600 mg DAILY (route: oral) Med Classific ation: Central Nervous System Agents lithium carbonate ER 450 mg tablet,exte nded release - 00:00: 00 03-30 23:59 :00 No [id number] Per instruc tions BEDTIME Per instructio ns BEDTIME (route: oral) Med Classific ation: Central Nervous System Agents olanzapine 20 mg tablet 2-13 00:00: 00 03-30 23:59 :00 No [id number] 20 mg 2 TIMES DAILY 20 mg 2 TIMES DAILY (route: oral) Med Classific ation: Central Nervous System Agents trazodone 50 mg tablet 2-13 00:00: 00 03-30 23:59 :00 No [id number] 50 mg BEDTIME 50 mg BEDTIME (route: oral) Med Classific ation: Central Nervous System Agents benztropine 1 mg tablet 2022-06 0-13 00:00: 00 Yes [id number] 1 tablet 2 TIMES DAILY 1 tablet 2 TIMES DAILY (route: oral) Med Classific ation: Central Nervous System Agents carbamazepi ne ER 200 mg tablet,exte nded release,12 hr 2022-06 0-13 00:00: 00 Yes [id number] 2 tablet DAILY 2 tablet DAILY (route: oral) Med Classific ation: Central Nervous System Agents carbamazepi ne ER 200 mg tablet,exte nded release,12 hr 2022-06 0-13 00:00: 00 Yes [id number] 3 tablet BEDTIME 3 tablet BEDTIME (route: oral) Med Classific ation: Central Nervous System Agents haloperidol 5 mg tablet 2022-06 0- 00:00: 00 Yes [id number] 2 tablet 2 TIMES DAILY 2 tablet 2 TIMES DAILY (route: oral) Med Classific ation: Central Nervous System Agents Invega Sustenna 234 mg/1.5 mL intramuscul ar syringe -24 00:00: 00 Yes [id number] Per instruc tions MONTHLY Per instructio ns MONTHLY (route: intramuscu lar) Med Classific ation: Central Nervous System Agents lithium carbonate 600 mg capsule 2022-06 0-13 00:00: 00 Yes [id number] 1 capsule DAILY 1 capsule DAILY (route: oral) Med Classific ation: Central Nervous System Agents lithium carbonate ER 450 mg tablet,exte nded release 2022-06 0-13 00:00: 00 Yes [id number] 2 tablet BEDTIME 2 tablet BEDTIME (route: oral) Med Classific ation: Central Nervous System Agents Plan of Treatment Planned Activity Planned Date Details Comments Future Scheduled Test SKILLED NU RSE TO EVALUATE PATIENT, IDENTIFY PRIMARY AND CO-MORBID CONDITIONS CODED PER CODING GUIDELINES, AND DEVELOP PATIENT SPECIFIC PLAN OF CARE THAT INCLUDES PATIENT GOAL FOR HOME HEALTH. [code = SKILLED NURSE TO EVALUATE PATIENT, IDENTIFY PRIMARY AND CO-MORBID CONDITIONS CODED PER CODING GUIDELINES, AND DEVELOP PATIENT SPECIFIC PLAN OF CARE THAT INCLUDES PATIENT GOAL FOR HOME HEALTH.] Future Scheduled Test SKILLED NU RSE TO ASSESS ANXIETY AND PROVIDE ASSISTANCE TO PATIENT FOR UNDERSTANDING AND MANAGEMENT OF FEELINGS. [code = SKILLED NURSE TO ASSESS ANXIETY AND PROVIDE ASSISTANCE TO PATIENT FOR UNDERSTANDING AND MANAGEMENT OF FEELINGS.] Future Scheduled Test SKILLED NU RSE TO PROVIDE ASSESSMENT AND TEACHING/REINFORCEMENT OF MANAGEMENT OF DEPRESSION INCLUDING DISEASE PROCESS, MEDICATION MANAGEMENT, COPING SKILLS AND IDENTIFY CHANGES ASSOCIATED WITH DEPRESSIVE DISORDERS FOR EARLY INTERVENTION. [code = SKILLED NURSE TO PROVIDE ASSESSMENT AND TEACHING/REINFORCEMENT OF MANAGEMENT OF DEPRESSION INCLUDING DISEASE PROCESS, MEDICATION MANAGEMENT, COPING SKILLS AND IDENTIFY CHANGES ASSOCIATED WITH DEPRESSIVE DISORDERS FOR EARLY INTERVENTION.] Future Scheduled Test SKILLED NU RSE FOR ADMINISTRATION AND TEACHING OF PRESCRIBED INJECTION THERAPY FOR INVEGA [code = SKILLED NURSE FOR ADMINISTRATION AND TEACHING OF PRESCRIBED INJECTION THERAPY FOR INVEGA] Future Scheduled Test SKILLED NU RSE TO PREFILL MEDIPLANNER AND INSTRUCT PATIENT/CAREGIVER ON FILLING MEDIPLANNER DEVICE 3X WEEKLY TO COVER MEDICATION ADMINISTRATION BETWEEN NURSING VISITS. [code = SKILLED NURSE TO PREFILL MEDIPLANNER AND INSTRUCT PATIENT/CAREGIVER ON FILLING MEDIPLANNER DEVICE 3X WEEKLY TO COVER MEDICATION ADMINISTRATION BETWEEN NURSING VISITS.] Future Scheduled Test SKILLED NU RSE TO O/A OF PATIENTS MENTAL/BEHAVIORAL STATUS, ASSESS VITAL SIGNS WEEKLY. ALLOW 2 PRNS FOR MEDICATION MANAGEMENT. [code = SKILLED NURSE TO O/A OF PATIENTS MENTAL/BEHAVIORAL STATUS, ASSESS VITAL SIGNS WEEKLY. ALLOW 2 PRNS FOR MEDICATION MANAGEMENT.] Future Scheduled Test SKILLED NU RSE FOR O/A OF GENERAL HEALTH STATUS OF PAIN, CARDIAC, RESPIRATORY, GASTROINTESTINAL, GENITOURINARY, SKIN, NEUROLOGIC, ENDOCRINE SYSTEMS TO IDENTIFY CHANGES ASSOCIATED WITH EXACERBATION FOR EARLY INTERVENTION OF COMPLICATIONS WEEKLY [code = SKILLED NURSE FOR O/A OF GENERAL HEALTH STATUS OF PAIN, CARDIAC, RESPIRATORY, GASTROINTESTINAL, GENITOURINARY, SKIN, NEUROLOGIC, ENDOCRINE SYSTEMS TO IDENTIFY CHANGES ASSOCIATED WITH EXACERBATION FOR EARLY INTERVENTION OF COMPLICATIONS WEEKLY] Future Scheduled Test SKILLED NU RSE FOR O/A OF ALTERED MOOD [code = SKILLED NURSE FOR O/A OF ALTERED MOOD] Goal 2023-06-07 Patient Goal - TO TAKE MY ME DICATION Goal 2023-06-02 Patient Goal - TO TAKE MY ME DICATION Goal Provider Goal - A PLAN OF CARE WILL BE ESTABLISHED THAT MEETS PATIENT'S HALF-WAY NEEDS AND INCLUDES PATIENT GOAL FOR HOME HEALTH. Goal Provider Goal - SYMPTOMS OF ANXIETY ARE IDENTIFIED AND INTERVENTIONS INITIATED TO ENABLE PATIENT TO UNDERSTAND AND MANAGE FEELINGS THROUGHOUT EPISODE. Goal Provider Goal - PATIENT/CAREGIVER WILL VERBALIZE/DEMONSTRATE UNDERSTANDING OF THE MANAGEMENT OF DEPRESSION THROUGHOUT THE CERTIFICATION PERIOD AND SYMPTOMS ARE IDENTIFIED AND MANAGED TO MAINTAIN PATIENT SAFETY IN THE HOME. Goal Provider Goal - PATIENT WILL RECEIVE INVEGA ORDERED. PATIENT/CAREGIVER WILL VERBALIZE/DEMONSTRATE KNOWLEDGE OF INJECTION THERAPY BY THE END OF THE CERTIFICATION PERIOD. Goal Provider Goal - PATIENT/CAREGIVER WILL DEMONSTRATE UNDERSTANDING OF PREFILLING MEDIPLANNER DEVICE BY THE END OF EPISODE. Goal Provider Goal - ALTERED MENTAL/BEHAVIORAL STATUS WILL BE IDENTIFIED PROMPTLY AND INTERVENTION INITIATED QUICKLY TO MINIMIZE ASSOCIATED RISKS THROUGHOUT CERTIFICATION PERIOD. Goal Provider Goal - CHANGE IN GENERAL HEALTH STATUS WILL BE IDENTIFIED AND REPORTED TO PHYSICIAN FOR PROMPT INTERVENTION TO MINIMIZE ASSOCIATED RISKS THROUGHOUT CERTIFICATION PERIOD. Goal Provider Goal - PATIENT WILL BE ABLE TO PERFORM DAILY FUNCTIONS AND HAVE OPTIMAL IMPROVEMENT IN MOOD STABILITY THROUGHOUT CERTIFICATION PERIOD. Reason for Visit INDEPENDENT IN THE COMMUNITY Encounters Start Date/Time End Date/Time Encounter Type Admission Type Attending [facility] Care Department Encounter ID Discharge Date Discharge Status Discharge Condition Discharge Reason Percent Goals Met 2023-04-04 00:00:00 2023-06-07 00:00:00 Outpatient RECERTWIL DAVIS [facility] [id number] 2023-06-07 00:00:00 DISCHARGE TO HOME OR SELF CARE INDEPENDEN T IN THE COMMUNITY PER CLIENT REQUEST
--- OUTSIDE RECORDS SUMMARY | 2024-06-02 13:35 | XMS_ITS | Clinical Summary ---
Author Organization Unknown Care Team Providers Care Lead Machinist Name Role Phone STEPHANIE HAGAN, CARLOS Unavailable Unavailable SIGIFREDO CASTELLANOS, WIL Unavailable Unavailable Payers Payer Name Policy Type Policy Number Effective Date Expira tion Date [facility] [place] [id number] MEDICAID [facility] [id number] MEDICARE - [facility] [place] - PD [id number] Problems Condition Name Condition Details Condition Category [...] - 00:00: 00 03-30 23:59 :00 No [id number] 400 mg BEDTIME 400 mg BEDTIME (route: oral) Med Classific ation: Central Nervous System Agents lithium carbonate 600 mg capsule - 00:00: 00 03-30 23:59 :00 No [id number] 600 mg DAILY 600 mg DAILY (route: oral) Med Classific ation: Central Nervous System Agents lithium carbonate ER 450 mg tablet,exte nded release - 00:00: 00 03-30 23:59 :00 No [id number] Per instruc tions BEDTIME Per instructio ns BEDTIME (route: oral) Med Classific ation: Central Nervous System Agents olanzapine 20 mg tablet 2-13 00:00: 00 03-30 23:59 :00 No [id number] 20 mg 2 TIMES DAILY 20 mg 2 TIMES DAILY (route: oral) Med Classific ation: Central Nervous System Agents trazodone 50 mg tablet 2-13 00:00: 00 03-30 23:59 :00 No [id number] 50 mg BEDTIME 50 mg BEDTIME (route: oral) Med Classific ation: Central Nervous System Agents benztropine 1 mg tablet 2022-06 0-13 00:00: 00 Yes [id number] 1 tablet 2 TIMES DAILY 1 tablet 2 TIMES DAILY (route: oral) Med Classific ation: Central Nervous System Agents carbamazepi ne ER 200 mg tablet,exte nded release,12 hr 2022-06 0-13 00:00: 00 Yes [id number] 2 tablet DAILY 2 tablet DAILY (route: oral) Med Classific ation: Central Nervous System Agents carbamazepi ne ER 200 mg tablet,exte nded release,12 hr 2022-06 0-13 00:00: 00 Yes [id number] 3 tablet BEDTIME 3 tablet BEDTIME (route: oral) Med Classific ation: Central Nervous System Agents haloperidol 5 mg tablet 2022-06 0- 00:00: 00 Yes [id number] 2 tablet 2 TIMES DAILY 2 tablet 2 TIMES DAILY (route: oral) Med Classific ation: Central Nervous System Agents Invega Sustenna 234 mg/1.5 mL intramuscul ar syringe -24 00:00: 00 Yes [id number] Per instruc tions MONTHLY Per instructio ns MONTHLY (route: intramuscu lar) Med Classific ation: Central Nervous System Agents lithium carbonate 600 mg capsule 2022-06 0-13 00:00: 00 Yes [id number] 1 capsule DAILY 1 capsule DAILY (route: oral) Med Classific ation: Central Nervous System Agents lithium carbonate ER 450 mg tablet,exte nded release 2022-06 0-13 00:00: 00 Yes [id number] 2 tablet BEDTIME 2 tablet BEDTIME (route: [...] CARE WILL BE ESTABLISHED THAT MEETS PATIENT'S USP NEEDS AND INCLUDES PATIENT GOAL FOR HOME [...] End Date/Time Encounter Type Admission Type Attending [facility] Care Department Encounter ID Discharge Date Discharge Status Discharge Condition Discharge Reason Percent Goals Met 2023-04-04 00:00:00 2023-06-07 00:00:00 Outpatient RECERTWIL DAVIS [facility] [id number] 2023-06-07 00:00:00 DISCHARGE TO HOME OR SELF CARE INDEPENDEN T IN THE COMMUNITY PER CLIENT REQUEST
[2024-06-02 13:37] LABS: Basophils Absolute Auto 0.1 X10*3/uL (0.0-0.2); Basophils Percent Auto 0.6 % (0-2); Hematocrit 42.7 % (42.0-52.0); Hemoglobin 14.6 g/dl (14.0-18.0); Imm Gran Abs Auto 0.02 X10*3/uL (0.00-0.03); Imm Gran Pct Auto 0.2 % (0.0-0.4); Lymphocytes Absolute Auto 1.3 X10*3/uL (1.2-4.9); Lymphocytes Percent Auto 15.8 % (20-40); Mean Corpuscular HGB Conc 34.2 g/dl (31.0-36.0); Mean Corpuscular Hemoglobin 30.9 pg (27.0-33.0); Mean Corpuscular Volume 90.3 fL (80.0-98.0); Mean Platelet Volume 10.1 fL (9.4-12.4); Monocytes Absolute Auto 0.7 X10*3/uL (0.1-1.2); Monocytes Percent Auto 7.8 % (2-11); Neutrophils Absolute Auto 6.3 x10*3/uL (2.0-8.3); Neutrophils Percent Auto 75.6 % (45-73); Platelet Count 290 X10*3/uL (160-400); Red Blood Count 4.73 X10*6/uL (4.60-5.80); Red Cell Distribution Width 12.3 % (11.0-16.0); White Blood Count 8.3 X10*3/uL (4.8-10.8)
[2024-06-02 13:41] LABS: Prothrombin Time 12.2 SEC (10.9-12.4)
[2024-06-02 13:50] LABS: Alanine Aminotransferase 13 U/L (0-40); Albumin Level 3.9 g/dL (3.5-5.0); Alkaline Phosphatase 55 U/L (39-117); Anion Gap 9 (12-20); Aspartate Amino Transferase 19 U/L (5-37); Bilirubin Total 0.3 mg/dL (0.0-1.0); Blood Urea Nitrogen 7 mg/dL (9-16); Calcium 9.4 mg/dL (8.4-10.2); Carbon Dioxide 29 mmol/L (22-29); Chloride 109 mmol/L (96-108); Creatinine Clr Calc Pharmacy 109.6; Estimated Glomerular Filt Rate > 60; Glucose Random 75 mg/dL (60-115); Potassium 4.4 mmol/L (3.3-5.1); Sodium 143 mmol/L (135-145); Total Protein 6.8 g/dL (6.5-8.0)
[2024-06-02 14:02] LABS: Troponin-I High Sensitivity < 2.7 ng/L (<3.5-35.0)
--- NOTE | 2024-06-02 14:23 | MHC.EDTECH ---
EKG delayed as patient spent extended period of time in restroom
[2024-06-02 14:25] LABS: Influenza A PCR NEGATIVE (Negative); Influenza B PCR NEGATIVE (Negative); Resp Syncy Virus RNA Qual PCR NEGATIVE (Negative); SARS COV2 PCR INHOUSE NEGATIVE (Negative)
[2024-06-02 16:48] VITALS: BP 139/85; PULSE 80; RESP 16; O2SAT 98
[2024-06-02] MEDS: Ketorolac Tromethamine 30 MG/ML VIAL IM (17:41)
[2024-06-02 17:46] VITALS: BP 132/77; PULSE 84; RESP 18; TEMP 36.8; O2SAT 97
== END 2024-06-02 17:47 | disposition home or self-care (01) ==
PROVIDERS: Physician Assistant; Emergency Provider Emergency Medicine; PCP Family Medicine
DX: M79.602 Pain in left arm (principal); M54.2 Cervicalgia; M25.522 Pain in left elbow; M25.512 Pain in left shoulder; F25.9 Schizoaffective disorder, unspecified; R07.9 Chest pain, unspecified; Z03.818 Encounter for observation for suspected exposure to other biological agents ruled out
CPT/HCPCS: 0241U; 36415; 71046; 73080; 80053; 84484; 85025; 85610; 93005; 96372; 99284; J1885

== ENCOUNTER → 2024-06-02 13:02 | Outpatient (BNV) | payer OTHER, SELFPAY | PROVIDERS: Emergency Provider Emergency Medicine; PCP Family Medicine; Visit Provider Internal Medicine Cardiovascular Disease | DX: I45.10 Unspecified right bundle-branch block (principal) | CPT/HCPCS: 93010 ==

== ENCOUNTER → 2024-06-02 13:02 | Outpatient (BNV) | payer OTHER, SELFPAY | PROVIDERS: PCP Family Medicine; Visit Provider Radiology Diagnostic Radiology | DX: M25.522 Pain in left elbow (principal) | CPT/HCPCS: 73080 ==

== ENCOUNTER 2024-06-07 13:20 | Outpatient (AMB) | payer OTHER, SELFPAY ==
--- NOTE | 2024-06-07 13:21 | MHC.OFFVIS ---
Vital Signs 06/07/24 13:24 Height 6 ft 1 in Weight 210 lb BMI 27.7 Intake Visit Reasons: Neck pain and left arm pain Intake Note: Eriberto is a 58 year old male who presents with complaints of progressively worsening neck pain which radiates down his left arm to his left hand. The patient states that he injured his neck approximately 6 months ago while helping his brother lift a couch. He also has intermittent discomfort along the posterior aspect of his left shoulder. The patient reports weakness when using his left arm. He also reports ?numbness and tingling? along his left index and middle fingers. He denies any symptoms prior to his injury. He has failed the last 6 weeks of conservative treatment which have included physical therapy exercises, Tylenol and anti-inflammatory medicines. Allergies bupropion [From Wellbutrin] Allergy (Mild, Verified 06/07/24 13:24) CAUSES SWOLLEN HEAD tetracycline [Tetracycline] Allergy (Mild, Verified 06/07/24 13:24) UNKNOWN trifluoperazine [From Stelazine] Allergy (Mild, Verified 06/07/24 13:24) UNKNOWN clozapine [From Clozaril] Adverse Reaction (Mild, Verified 06/07/24 13:24) SEIZURES,NEUTROPENIA Medication List - Last Reconciled 06/07/24 by Suresh Lazo MD benztropine 1 mg PO BID haloperidol decanoate 100 mg (2 mL) IM Q14D ibuprofen 600 mg PO Q6H PRN lithium carbonate ER 450 mg PO BID multivitamin (Daily-Ashley tablet) 1 tab PO DAILY naproxen 500 mg PO BID PRN olanzapine 5 mg PO BID PFSH Medical History Schizoaffective disorder, bipolar type Social History Household Members: Family Household Members Other:: Father , gf. Father in [place] at this time. Housing: Apartment Housing Other:: [facility] Do you presently have visiting nurse or other home services: Yes (Twice a day nurses for medication.) Unable to assess alcohol history related to: Unknown Alcohol intake: unknown Comment: 1:1 sitter Patient Tobacco Use Status: Never used Tobacco e-Cigarette/Vaping Use: Never Used Second Hand Smoke Exposure: No Substance Use Type: Caffiene service: Yes ([employer]) Sexual orientation: Straight/Heterosexual Physical Exam Vital Signs: BMI result Body Mass Index 27.7 Const Other: Well-nourished well-developed very friendly male awake alert and oriented x3 in no acute distress Neck Other: Cervical spine examination shows left-sided paraspinal muscle tenderness, pain with range of motion, positive Spurling's test, 4/5 strength with testing of his left biceps and wrist extensors when compared to 5/5 strength on his right side Results Reviewed Results Reviewed: X-rays of the patient's left shoulder show moderate acromioclavicular joint narrowing, a type 2 acromion, no acute bony abnormalities Assessment & Plan Assessment & Plan (1) Neck pain on left side: Code(s): M54.2 - Cervicalgia Category: Medical Plan Mr. Bradford presents with progressively worsening neck pain which radiates down his left arm as well as associated left arm weakness most likely due to cervical stenosis or a disc herniation. Thus, I will send the patient for an MRI of his cervical spine for further evaluation. I will see him back once the MRI is completed to discuss the findings and treatment options. He will call me prior to that time should his symptoms worsen in any way. Feel free to call me at any time should questions regarding his orthopedic management arise. I spent 22 minutes in reviewing the patient's records and imaging studies, seeing the patient and documenting in the medical record. Orders: Orders MR cervical spine wo con Today M54.2 - Cervicalgia Medications: Refilled ibuprofen 600 mg PO Q6H PRN 90 tabs 3RF pain Discontinued trazodone Discontinued Reason: Patient no longer taking 50 mg PO BEDTIME MRX1 PRN 60 tabs 0RF Insomnia diclofenac sodium 1% (Voltaren Arthritis Pain) apply to single affected area Discontinued Reason: Patient no longer taking 4 grams topical QID PRN 100 grams 0RF pain Coding Level of Care Code New Pt Level 3 (11503) Complex EM visit Add On G2211 Diagnoses Neck pain on left side M54.2
--- OUTSIDE RECORDS SUMMARY | 2024-06-07 13:23 | XMS_ITS | Clinical Summary ---
Author Organization Unknown Care Team Providers Care Communications Executive Name Role Phone STEPHANIE HAGAN, CARLOS Unavailable Unavailable SIGIFREDO CASTELLANOS, WIL Unavailable Unavailable Payers Payer Name Policy Type Policy Number Effective Date Expira tion Date [facility] [place] [id number] MEDICAID [facility] [id number] MEDICARE - [facility] [place] - [place] [id number] Problems Condition Name Condition Details Condition Category [...] - 00:00: 00 03-30 23:59 :00 No [id number] 400 mg BEDTIME 400 mg BEDTIME (route: oral) Med Classific ation: Central Nervous System Agents lithium carbonate 600 mg capsule 2-13 00:00: 00 03-30 23:59 :00 No [id number] 600 mg DAILY 600 mg DAILY (route: oral) Med Classific ation: Central Nervous System Agents lithium carbonate ER 450 mg tablet,exte nded release - 00:00: 00 03-30 23:59 :00 No [id number] Per instruc tions BEDTIME Per instructio ns BEDTIME (route: oral) Med Classific ation: Central Nervous System Agents olanzapine 20 mg tablet 2-13 00:00: 00 03-30 23:59 :00 No [id number] 20 mg 2 TIMES DAILY 20 mg 2 TIMES DAILY (route: oral) Med Classific ation: Central Nervous System Agents trazodone 50 mg tablet 2-13 00:00: 00 03-30 23:59 :00 No [id number] 50 mg BEDTIME 50 mg BEDTIME (route: oral) Med Classific ation: Central Nervous System Agents benztropine 1 mg tablet 2022-06 0-13 00:00: 00 Yes [id number] 1 tablet 2 TIMES DAILY 1 tablet 2 TIMES DAILY (route: oral) Med Classific ation: Central Nervous System Agents carbamazepi ne ER 200 mg tablet,exte nded release,12 hr 2022-06 0-13 00:00: 00 Yes [id number] 2 tablet DAILY 2 tablet DAILY (route: oral) Med Classific ation: Central Nervous System Agents carbamazepi ne ER 200 mg tablet,exte nded release,12 hr 2022-06 0-13 00:00: 00 Yes [id number] 3 tablet BEDTIME 3 tablet BEDTIME (route: oral) Med Classific ation: Central Nervous System Agents haloperidol 5 mg tablet 2022-06 0- 00:00: 00 Yes [id number] 2 tablet 2 TIMES DAILY 2 tablet 2 TIMES DAILY (route: oral) Med Classific ation: Central Nervous System Agents Invega Sustenna 234 mg/1.5 mL intramuscul ar syringe -24 00:00: 00 Yes [id number] Per instruc tions MONTHLY Per instructio ns MONTHLY (route: intramuscu lar) Med Classific ation: Central Nervous System Agents lithium carbonate 600 mg capsule 2022-06 0-13 00:00: 00 Yes [id number] 1 capsule DAILY 1 capsule DAILY (route: oral) Med Classific ation: Central Nervous System Agents lithium carbonate ER 450 mg tablet,exte nded release 2022-06 0-13 00:00: 00 Yes [id number] 2 tablet BEDTIME 2 tablet BEDTIME (route: [...] CARE WILL BE ESTABLISHED THAT MEETS PATIENT'S SENIOR LIVING NEEDS AND INCLUDES PATIENT GOAL FOR HOME [...] End Date/Time Encounter Type Admission Type Attending [facility] Care Department Encounter ID Discharge Date Discharge Status Discharge Condition Discharge Reason Percent Goals Met 2023-04-04 00:00:00 2023-06-07 00:00:00 Outpatient RECERTWIL [facility] [id number] 2023-06-07 00:00:00 DISCHARGE TO HOME OR SELF CARE INDEPENDEN T IN THE COMMUNITY PER CLIENT REQUEST
--- OUTSIDE RECORDS SUMMARY | 2024-06-07 13:23 | XMS_ITS | Clinical Summary ---
Author Organization Unknown Care Team Providers Care Work Station Support Specialist Name Role Phone STEPHANIE HAGAN, CARLOS Unavailable Unavailable SIGIFREDO CASTELLANOS, WIL Unavailable Unavailable Payers Payer Name Policy Type Policy Number Effective Date Expira tion Date [facility] [place] [id number] MEDICAID [facility] [id number] MEDICARE - [facility] [place] - PD [id number] Problems Condition Name Condition Details Condition Category [...] - 00:00: 00 03-30 23:59 :00 No [id number] 400 mg BEDTIME 400 mg BEDTIME (route: oral) Med Classific ation: Central Nervous System Agents lithium carbonate 600 mg capsule 2-13 00:00: 00 03-30 23:59 :00 No [id number] 600 mg DAILY 600 mg DAILY (route: oral) Med Classific ation: Central Nervous System Agents lithium carbonate ER 450 mg tablet,exte nded release - 00:00: 00 03-30 23:59 :00 No [id number] Per instruc tions BEDTIME Per instructio ns BEDTIME (route: oral) Med Classific ation: Central Nervous System Agents olanzapine 20 mg tablet 2-13 00:00: 00 03-30 23:59 :00 No [id number] 20 mg 2 TIMES DAILY 20 mg 2 TIMES DAILY (route: oral) Med Classific ation: Central Nervous System Agents trazodone 50 mg tablet 2-13 00:00: 00 03-30 23:59 :00 No [id number] 50 mg BEDTIME 50 mg BEDTIME (route: oral) Med Classific ation: Central Nervous System Agents benztropine 1 mg tablet 2022-06 0-13 00:00: 00 Yes [id number] 1 tablet 2 TIMES DAILY 1 tablet 2 TIMES DAILY (route: oral) Med Classific ation: Central Nervous System Agents carbamazepi ne ER 200 mg tablet,exte nded release,12 hr 2022-06 0-13 00:00: 00 Yes [id number] 2 tablet DAILY 2 tablet DAILY (route: oral) Med Classific ation: Central Nervous System Agents carbamazepi ne ER 200 mg tablet,exte nded release,12 hr 2022-06 0-13 00:00: 00 Yes [id number] 3 tablet BEDTIME 3 tablet BEDTIME (route: oral) Med Classific ation: Central Nervous System Agents haloperidol 5 mg tablet 2022-06 0- 00:00: 00 Yes [id number] 2 tablet 2 TIMES DAILY 2 tablet 2 TIMES DAILY (route: oral) Med Classific ation: Central Nervous System Agents Invega Sustenna 234 mg/1.5 mL intramuscul ar syringe -24 00:00: 00 Yes [id number] Per instruc tions MONTHLY Per instructio ns MONTHLY (route: intramuscu lar) Med Classific ation: Central Nervous System Agents lithium carbonate 600 mg capsule 2022-06 0-13 00:00: 00 Yes [id number] 1 capsule DAILY 1 capsule DAILY (route: oral) Med Classific ation: Central Nervous System Agents lithium carbonate ER 450 mg tablet,exte nded release 2022-06 0-13 00:00: 00 Yes [id number] 2 tablet BEDTIME 2 tablet BEDTIME (route: [...] CARE WILL BE ESTABLISHED THAT MEETS PATIENT'S LONGTERM NEEDS AND INCLUDES PATIENT GOAL FOR HOME [...] 2023-06-07 00:00:00 Outpatient RECERTWIL DAVIS [facility] [id number] 2023-06-07 00:00:00 DISCHARGE TO HOME OR SELF CARE INDEPENDEN T IN THE COMMUNITY PER CLIENT REQUEST
[2024-06-07 13:24] VITALS: BMI 27.7
== END 2024-06-07 13:43 | disposition home or self-care (01) ==
PROVIDERS: Visit Provider Orthopaedic Surgery
DX: M54.2 Cervicalgia (principal)
CPT/HCPCS: 99203; G2211

== ENCOUNTER → 2024-06-07 13:20 | Outpatient (BNVA) | payer OTHER, SELFPAY | PROVIDERS: Visit Provider Orthopaedic Surgery | DX: M54.2 Cervicalgia (principal) | CPT/HCPCS: 99202 ==

== ENCOUNTER → 2024-08-08 11:13 | Outpatient (BNV) | payer OTHER, SELFPAY | PROVIDERS: PCP Family Medicine; Visit Provider Radiology Diagnostic Radiology | DX: M48.02 Spinal stenosis, cervical region (principal) | CPT/HCPCS: 72141 ==

== ENCOUNTER 2024-08-08 11:21 | Outpatient (REF) | payer OTHER, SELFPAY ==
--- NOTE | ~2024-08-08 | MR_ITS ---
CLINICAL HISTORY: M54.2 - Cervicalgia; NECK PAIN LEFT SIDE MRI cervical spine without contrast Comparison: None Findings: C3-4 transverse osteophyte with mild spinal stenosis. Mild bilateral neural foraminal narrowing. C4-5 facet hypertrophy without canal stenosis. No significant neural foraminal narrowing. C5-6 transverse osteophyte with mild spinal stenosis. Bilateral neural foraminal narrowing. C6-7 transverse osteophyte with minimal spinal stenosis. No significant neural foraminal narrowing. Remaining levels within normal limits. No other canal or neural foraminal narrowing. No acute bony signal abnormalities noted. Posterior bony alignment is normal. Cervical cord normal in course and caliber. No internal cord signal abnormality. Impression: Multilevel mild spinal stenosis and neural foraminal narrowing This document has been electronically signed by: Hira Alex MD on 08/08/2024 19:27:37
--- OUTSIDE RECORDS SUMMARY | 2024-08-08 12:40 | XMS_ITS | Continuity of Care Document ---
Author Organization [facility] Tucker Barba Aden lt Address [address] [place] [address]- Care Team Providers Care Director [facility] Name Role Phone Omero Fernandez DO Primary Care Physician [phone] Encounter [facility] Date(s): 06/09/24 - 07/09/24 [facility] Adult [address] [place] [address]- Attending Physician: Admtr, Ar8 Admitting Physician: Admtr, Kaleb Referring Physician: Admtr, Ar8 Encounter Type: Triage Allergies, Adverse Reactions, Alerts [...] 08/11/22 Given tetanus-diphtheria toxoids (Td) 06/21/00 Given [id number] 12y+ bivalent booster vax 03/14/22 Recorded SARS-CoV-2 [...] 2Result Comment: [03/13/2015] Susy 3Admin Note: [facility] 4Admin Note: TYLER 03-06-2013 FLUVIRIN 5Admin Note: given at [facility] 6Admin Note: VIS given publication 05/08/08 7Admin Note: tylers 8Admin Note: VIS GIVEN 9Admin Note: GIVEN AT [facility] ON 02-18-11 10[facility] Medications Benztropine = 1 mg, 2 [...] on: 04/18/18 Sex Sex Representation Male (finding) Hospital Consult note * Event Display: Inpatient Consult Note, Non-BH Authored Date: * Event Display: Inpatient Consult Note, Non-BH Authored Date: Laboratory * Event Display: Non BH Lab Results Authored Date: * Event Display: Non BH Lab Results Authored Date: * Event Display: Non BH Lab Results Authored Date: Radiology * Event Display: CT Scan Head, Non- BH Authored Date: Patient Care team information Care Team Personnel Name: Omero Fernandez DO Position: [facility] Physician - Primary Care Member Role: PCP Address: [address] [place] [address]- Telecom: Care Team Related Persons Name: IVY CALLE Name: STEFANIE LAMAR Name: ANYA LAMAR Insurance Providers Guarantor name: OMERO LAMAR Health Plan Information #: 1 Payer: [facility] [employer] Member Number: NA Policy Number: NA Group Number: NA
--- OUTSIDE RECORDS SUMMARY | 2024-08-08 12:40 | XMS_ITS | Data Portability ---
Author Organization [place] [facility] Address [address] [place] [id number] Assessment Encounter Date Assessment Date Assessment LastModified [...] to make an appt with PCP & Tube Drawer in 3-5 days to discuss ongoing symptoms/ [...] I have accessed patient records on the [employer]. This information was pertinent in my medical decision making today. Proper Personal Protective Equipment (PPE), including gloves, eye protection and masks were donned and doffed appropriately and all equipment cleaned using approved technique with germicidal disposable wipes prior to and after care of this patient according to [facility]'s infection prevention protocols. [email or web address] Not available 01/29/2021 12:10:47 Plan of Treatment Reminders Order Date Submit Date Provider Last Modified By Organization Details Last Modified Time Details Appointments None recorded. Lab BMP + ionized calcium, serum or plasma 021 021 [facility], [address] [place] [address], [id number], 11:37:12 Referral None recorded. Procedures None recorded. Surgeries None recorded. Imaging None recorded. Medication Orders None recorded. Patient TargetsNo targets recorded. Patient Instructions Encounter Date Encounter Id Patient Instructions Last Modified By Organization Details Last Modified Time 01/29/2021 [id number] vertigo: care instructions Not available 01/29/2021 11:34:19 Your vitals: T-97.9 HR-90 B/P- 100/70 RR- 18 O2 sat 96% RA Try to stay hydrated especially on hot days. If you develop dizziness, sit or lay down until it passes. government affairs specialist if driving. Stop taking herb supplement. If dizziness persists, you develop any chest pain, palpitation, headaches please be seen in ED for imaging. Thank you for your visit with [facility] today. We cannot always find the exact [...] in your condition between 8am-10pm, please [facility] at [phone] to help navigate your care. [email or web address] Not available 01/29/2021 11:56:20 Lab ResultsBMP + [...] [facility] [address] [place], [address], 01/29/2021 11:37:12 01/30/20 21 01/29/2021 BMP + IONIZ ED CALCI UM, SERUM OR PLASM A BUN 14 mg/dL 8-26 Not Available [address], [address], 01/29/2021 11:37:12 01/30/20 21 01/29/2021 BMP + IONIZ ED CALCI UM, SERUM OR PLASM A crea 0.8 mg/dL 0.6-1. 3 Not Available [address], [address], 01/29/2021 11:37:12 01/30/20 21 01/29/2021 BMP + IONIZ ED CALCI UM, SERUM OR PLASM A Na 143 mmol/ L 138-14 6 Not Available [address], [address], 01/29/2021 11:37:12 01/30/20 21 01/29/2021 BMP + IONIZ ED CALCI UM, SERUM OR PLASM A K 3.9 mmol/ L 3.5-4. 9 Not Available [address], [address], 01/29/2021 11:37:12 01/30/2001/29/2021 BMP + IONIZ ED CALCI UM, SERUM OR PLASM A cL 105 mmol/ L 98-109 Not Available [address], [address], 01/29/2021 11:37:12 01/30/20 21 01/29/2021 BMP + IONIZ ED CALCI UM, SERUM OR PLASM A TCO2 23 mmol/ L 24-29 Not Available [address], [address], 01/29/2021 11:37:12 01/30/20 21 01/29/2021 BMP + IONIZ ED CALCI UM, SERUM OR PLASM A angap 20 mmol/ L 10-20 Not Available [address], [address], 01/29/2021 11:37:12 01/30/20 21 01/29/2021 BMP + IONIZ ED CALCI UM, SERUM OR PLASM A ica 1.17 mmol/ L 1.12-1 .32 Not Available [facility] [address] [place], [address], 01/29/2021 11:37:12 01/30/20 21 01/29/2021 BMP + IONIZ ED CALCI UM, SERUM OR PLASM A HCT 45 %pcv 38-51 Not Available [facility] [address] [place], [address], 01/29/2021 11:37:12 01/30/20 21 01/29/2021 BMP + IONIZ ED CALCI UM, SERUM OR PLASM A Hb 15.3 g/dL 12-17 Not Available [facility] [address] [place], [address], 01/29/2021 11:37:12 Result Notes None recorded. Procedures Surgical History Date Name Laterality Status Provider Name and Address Organization Details Recorded Time 01/30/20 Venipuncture - completed Jessie Schroeder NP [address] [place], [address], [place] [facility] 01/29/2021 11:51:59 Imaging Results None recorded. Procedure Notes None recorded. Medical Equipment None Reported. Allergies Allergen ID Allergen Name Allergen Category Reaction Reaction Severity Criticality Documentation Date Start Date Code Code System Note Provider Name and Address Organization Details Recorded Time [id number] Wellbutri n medicatio n Not available Not available Not available 01/29/2021 62526 RxNorm Jessie Schroeder NP [address] [place], [address], [place] [facility] 10:56:40 [id number] Clozaril medicatio n Not available Not available Not available 01/29/2021 89268 2 RxNorm Jessie Schroeder NP [address] [place], [address], [place] [facility] 10:56:49 [id number] trifluope razine hydrochlo ride medicatio n Not available Not available Not available 01/29/2021 00025 RxNorm Jessie Schroeder NP [address], [place], [address], [place] [facility] 10:56:59 Medications Name [...] % 100 mm[Hg] 70 mm[Hg] Not Available [facility] 11:24:10 Social History Question Answer Notes LastModified by Organizat ion Details LastModified Time Tobacco Smoking Status Never Smoker Jessie Schroeder NP [address], [place], [address], [place] [facility] 01/29/2021 12:11:14 What Is Your Level Of Alcohol Consumption? None [email or web address] Information not available 01/29/2021 What Is Your Code Status? Full Code Information not available 01/29/2021 Excessive Alcohol Or Drug Use No [email or web address] Information not available 01/29/2021 Does This Patient Have A PCP? Yes [email or web address] Information not available 01/29/2021 Do You Use Any Illicit Or Recreational Drugs? No [email or web address] Information not available 01/29/2021 Do You Or Have You Ever Used Any Other Forms Of Tobacco Or Nicotine? No [email or web address] Information not available 01/29/2021 Sex: Unknown Functional Status None recorded. Mental Status None recorded. Family History Relationship Description Onset Age of this Age Resolved Age Notes LastModified by Organization Details LastModified Time Mother Hypertensive disorder Not available 2020 11:02:06 Medical History Condition Response Coronary Artery Disease N COPD N Depression N Cancer N Stroke N High Cholesterol N Kidney Disease N Diabetes N Asthma N Pulmonary Embolism N Hypertension N Past Encounters Encounter ID Performer Location Encounter Start Date Encounter Closed Date Diagnosis/Indication Diagnosis SNOMED-CT Code Diagnosis ICD10 Code Diagnosis Note [id number] Jessie Schroeder NP [facility] [address] [place] [address] 01/29/2021 10:54:01 01/31/2021 15:51:51 Dizziness present 748087085 R42 Dehydration 54113510 E86 .0 Vertigo [id number] R42 Health Concerns Section Related Observation LastModified by Organization Detai ls LastModified Time None Recorded Concern Status LastModified by Organization Details LastModified Time None Recorded Advance Directives Directive None Recorded Payers Encounter Date Sequence Insurance Name Policy Number Policy Landa Covered Member ID Landa Member ID Guarantor Name 01/29/2021 2 [place] [facility] Eriberto Bradford [id number] Eriberto Bradford 01/29/2021 1 [facility] - DOS PRIOR TO 2022 - DUAL ELIGIBLE (MEDICARE REPLACEMENT/ADV ANTAGE - HMO) Eriberto Bradford [id number] Eriberto Bradford Notes Date Note Type Note [...] changes. Jessie Schroeder NP [address], [place], [address], [place] [facility] 01/29/2021 12:11:31
== END 2024-08-08 11:22 | disposition home or self-care (01) ==
LOC: HO.MRI 11:21
PROVIDERS: PCP Family Medicine; Visit Provider Orthopaedic Surgery
DX: M54.2 Cervicalgia (principal)
CPT/HCPCS: 72141

== ENCOUNTER 2024-08-10 18:43 | Emergency (ER) | payer OTHER, SELFPAY ==
--- NOTE | ~2024-08-10 | XR_ITS ---
EXAMINATION: XR CHEST CLINICAL INFORMATION: cough, fever, flu positive COMPARISON: June 02, 2024 TECHNIQUE: 2 views of the chest were obtained. FINDINGS: No consolidation, pleural effusion or pneumothorax. Cardiomediastinal silhouette size is normal. Multiple level thoracic spondylosis. No acute airspace disease. Stable chest. If patient's symptoms persist consider CT chest. XR/XR chest 2V IMPRESSION: Unremarkable examination. Electronically signed by: Jaime Lopez MD 08/11/2024 08:27 AM FLOR
[2024-08-10 19:31] VITALS: BP 152/88; PULSE 121; RESP 20; TEMP 37.5; O2SAT 96; BMI 27.7
--- NOTE | 2024-08-10 19:32 | ED.GENADULT ---
HPI - General Adult General Chief complaint: General Medical Stated complaint: headache, neck pain, nausea, panic attack Time Seen by Provider: 08/11/24 06:34 History of Present Illness ED Provider: Jose LINDSAY narrative: The patient is a 59-year-old male with a history of bipolar disorder who says that he has felt unwell for about 3 days. He has had a headache and a cough and feeling a lot of body aches. He does not know if he has had a fever. He has had nausea but no vomiting. The patient is worried that his lithium dosing may be too high. He says he lives with his girlfriend. He came to the hospital by ambulance last night. Related Data Previous Rx's ?Medication ?Instructions ?Recorded benztropine 1 mg tablet 1 mg PO BID #60 tabs 02/03/24 haloperidol decanoate 50 mg/mL 100 mg (2 mL) IM Q14D #2 mL 02/03/24 intramuscular solution lithium carbonate 450 mg 450 mg PO BID #60 tabs 02/03/24 tablet,extended release multivitamin (Daily-Ashley tablet) 1 tab PO DAILY #30 tabs 02/03/24 olanzapine 5 mg tablet 5 mg PO BID #60 tabs 02/04/24 naproxen 500 mg tablet 500 mg PO BID PRN pain #30 tabs 04/30/24 ibuprofen 600 mg tablet 600 mg PO Q6H PRN pain #90 tabs 06/07/24 ibuprofen 400 mg tablet 400 mg PO Q6H PRN pain #14 tabs 08/11/24 Allergies Allergy/AdvReac Type Severity Reaction Status Date / Time bupropion [From Wellbutrin] Allergy Mild CAUSES Verified 08/10/24 19:34 SWOLLEN HEAD tetracycline [Tetracycline] Allergy Mild UNKNOWN Verified 08/10/24 19:34 trifluoperazine Allergy Mild UNKNOWN Verified 08/10/24 19:34 [From Stelazine] clozapine [From Clozaril] AdvReac Mild SEIZURES,NE Verified 08/10/24 19:34 UTROPENIA Review of Systems Review of Systems: Yes all other systems are reviewed and are negative [facility] Past Medical History Medical History Schizoaffective disorder, bipolar type Social History Social History Household Members: Family Household Members Other:: Father , gf. Father in [place] at this time. Housing: Apartment Housing Other:: [facility] Do you presently have visiting nurse or other home services: Yes (Twice a day nurses for medication.) Unable to assess alcohol history related to: Unknown Alcohol intake: unknown Comment: 1:1 sitter Patient Tobacco Use Status: Never used Tobacco e-Cigarette/Vaping Use: Never Used Second Hand Smoke Exposure: No Substance Use Type: Caffiene service: Yes ([employer]) Sexual orientation: Straight/Heterosexual Physical Exam ED Vital Signs: Vital Signs - 24 hr 08/10/24 19:31 08/11/24 01:55 08/11/24 03:27 Temperature 99.5 F 100.7 F H 98.9 F Pulse Rate 121 H 113 H 98 Respiratory Rate 20 20 20 Blood Pressure 152/88 H 133/79 121/69 Pulse Oximetry 96 96 98 Oxygen Delivery Method Room Air Room Air Room Air 08/11/24 05:06 08/11/24 08:47 08/11/24 10:05 Temperature 99.8 F 99.8 F Pulse Rate 107 H 97 97 Respiratory Rate 20 14 14 Blood Pressure 136/68 113/58 L 113/58 L Pulse Oximetry 97 94 94 Oxygen Delivery Method Room Air Room Air Room Air BMI result Body Mass Index 27.7 Const Other: The patient was asleep on a hospital stretcher. He was awoke easily to a normal mental status. He did not seem in overt distress although he looks mildly ill with a fairly frequent cough. Orientation/consciousness: patient oriented x3 HENMT Other: Face is symmetrical. Mucous membranes moist. Eyes General: appearance normal, both eyes and all related structures Neck Neck: Yes full ROM, Yes no lymphadenopathy and Yes no meningeal signs Resp Effort & Inspection: normal respiratory effort Auscultation: clear to auscultation bilaterally Cardio Rate: regular rate Rhythm: regular rhythm Heart sounds: S1 normal heart sound present and S2 normal heart sound present GI Other: Abdomen is soft and nontender Skin General skin exam: no rashes or lesions noted Neuro General: patient oriented x3, tone normal, moves all extremities, no meningeal signs, no focal motor deficits and CN's II-XI intact bilaterally Extrem Other: No peripheral edema, no calf swelling or tenderness Course Course Course Narrative: This is a rapid medical exam performed by Annmarie Jarrett NP: Additional HPI, ROS, PE not included below will be deferred to primary provider. Patient is a 59-year-old male with pmhx of schizoaffective disorder presenting to the ED with complaint of headache, stiff neck, congestion, cough, and nausea. Reports feeling overwhelmed. Denies SI/HI. No meningismus. Plan: viral serology, labs Medications Administered Discontinued Medications Generic Name Dose Route Start Last Admin Trade Name Sanket PRN Reason Stop Dose Admin Acetaminophen 650 mg 08/11/24 01:56 08/11/24 01:58 Acetaminophen 325 Mg Tablet PO 08/11/24 01:57 650 mg ONCE ONE Administration Ketorolac Tromethamine 30 mg 08/11/24 06:41 08/11/24 08:00 Ketorolac Tromethamine 30 Mg/Ml Vial IM 08/11/24 06:42 30 mg ONCE ONE Administration Medical Decision Making Medical Decision Making MDM Narrative: The patient is a 59-year-old male with a significant psychiatric history who was on lithium. He has felt unwell for about 3 days with a variety of constitutional symptoms. He has tested positive for influenza which I think is likely the cause of his illness. He was concerned about whether his lithium level might be high. This was not the case. I think he has been ill long enough that he would probably get little benefit from oseltamivir. He will be discharged with instructions for conservative care. He should follow up with his PCP and return if worse. Lab Data 08/10/24 19:47 08/10/24 19:47 Labs: Lab Results 08/10/24 08/11/24 Range/Units 19:47 07:49 WBC 9.3 (4.8-10.8) X10*3/uL RBC 4.59 L (4.60-5.80) X10*6/uL Hgb 14.5 (14.0-18.0) g/dl Hct 41.7 L (42.0-52.0) % MCV 90.8 (80.0-98.0) fL MCH 31.6 (27.0-33.0) pg MCHC 34.8 (31.0-36.0) g/dl RDW 13.0 (11.0-16.0) % Plt Count 252 (160-400) X10*3/uL MPV 9.7 (9.4-12.4) fL Immature Gran % (Auto) 0.1 (0.0-0.4) % Neut % (Auto) 87.5 H (45-73) % Lymph % (Auto) 6.2 L (20-40) % Hayes % (Auto) 5.7 (2-11) % Eos % (Auto) 0.3 (0-4) % Baso % (Auto) 0.2 (0-2) % Lymph # (Auto) 0.6 L (1.2-4.9) X10*3/uL Hayes # (Auto) 0.5 (0.1-1.2) X10*3/uL Eos # (Auto) 0.0 (0.0-0.4) X10*3/uL Baso # (Auto) 0.0 (0.0-0.2) X10*3/uL Abs Immat Gran (auto) 0.01 (0.00-0.03) X10*3/uL Absolute Neuts (auto) 8.1 (2.0-8.3) x10*3/uL Absolute Nucleated RBC 0.000 (0.0-0.012) X10*3/uL Nucleated RBC % (auto) 0.0 (0.0-0.2) /100WBC Sodium 141 (135-145) mmol/L Potassium 4.3 (3.3-5.1) mmol/L Chloride 106 (96-108) mmol/L Carbon Dioxide 27 (22-29) mmol/L Anion Gap 12 (12-20) BUN 10 (9-16) mg/dL Creatinine 0.81 (0.5-1.4) mg/dL Estim Creat Clear Calc 108.2 Estimated GFR > 60 Random Glucose 101 (60-115) mg/dL Calcium 9.7 (8.4-10.2) mg/dL Total Bilirubin 0.3 (0.0-1.0) mg/dL AST 18 (5-37) U/L ALT 18 (0-40) U/L Alkaline Phosphatase 51 (39-117) U/L Total Protein 7.6 (6.5-8.0) g/dL Albumin 4.4 (3.5-5.0) g/dL Pelion 0.33 L (0.60-1.20) mmol/L Influenza Type A (PCR) POSITIVE A (Negative) Influenza Type B (PCR) NEGATIVE (Negative) RSV RNA Qual (PCR) NEGATIVE (Negative) SARS-CoV-2 RNA (RT-PCR) NEGATIVE (Negative) Discharge Plan Discharge Clinical Impression: Influenza Patient Disposition: Home, Self-Care Instructions: Influenza (ED) Additional Instructions: You have tested positive for the flu today. Your other tests are reassuring. Your lithium level is not elevated. I think you will probably have symptoms of the flu for a few more days but after that I expect you will get over it. You may use the prescribed ibuprofen as needed for discomfort. You may also use acetaminophen if you have any. Drink lot of fluids. Please plan on following up with your regular doctor with any concerns you have. Return to the emergency room if you feel significantly worse. Prescriptions: New ibuprofen 400 mg tablet 400 mg PO Q6H PRN (Reason: pain) Qty: 14 0RF No Action naproxen 500 mg tablet 500 mg PO BID PRN (Reason: pain) Qty: 30 0RF lithium carbonate 450 mg Tablet Extended Release 450 mg PO BID Qty: 60 0RF benztropine 1 mg Tablet 1 mg PO BID Qty: 60 0RF haloperidol decanoate 50 mg/mL Solution 100 mg IM Q14D Qty: 2 0RF multivitamin [Daily-Ashley] Tablet 1 tab PO DAILY Qty: 30 0RF olanzapine 5 mg tablet 5 mg PO BID Qty: 60 0RF ibuprofen 600 mg tablet 600 mg PO Q6H PRN (Reason: pain) Qty: 90 3RF Referrals: Eriberto Fernandez DO [Primary Care Provider] - (Influenza) Interventions: ED Discharge Assessment Last Done: 08/11/24 10:05 Discharge Date/Time: 08/11/24 10:06 Print Language: Kyrgyz
[2024-08-10 19:52] LABS: MANUAL DIFF FLAG NO
[2024-08-10 19:55] LABS: Basophils Percent Auto 0.2 % (0-2); Eosinophils Percent Auto 0.3 % (0-4); Hematocrit 41.7 % (42.0-52.0); Hemoglobin 14.5 g/dl (14.0-18.0); Imm Gran Abs Auto 0.01 X10*3/uL (0.00-0.03); Imm Gran Pct Auto 0.1 % (0.0-0.4); Lymphocytes Absolute Auto 0.6 X10*3/uL (1.2-4.9); Lymphocytes Percent Auto 6.2 % (20-40); Mean Corpuscular HGB Conc 34.8 g/dl (31.0-36.0); Mean Corpuscular Hemoglobin 31.6 pg (27.0-33.0); Mean Corpuscular Volume 90.8 fL (80.0-98.0); Mean Platelet Volume 9.7 fL (9.4-12.4); Monocytes Absolute Auto 0.5 X10*3/uL (0.1-1.2); Monocytes Percent Auto 5.7 % (2-11); Neutrophils Absolute Auto 8.1 x10*3/uL (2.0-8.3); Neutrophils Percent Auto 87.5 % (45-73); Platelet Count 252 X10*3/uL (160-400); Red Blood Count 4.59 X10*6/uL (4.60-5.80); White Blood Count 9.3 X10*3/uL (4.8-10.8)
[2024-08-10 20:09] LABS: Alanine Aminotransferase 18 U/L (0-40); Albumin Level 4.4 g/dL (3.5-5.0); Alkaline Phosphatase 51 U/L (39-117); Anion Gap 12 (12-20); Aspartate Amino Transferase 18 U/L (5-37); Bilirubin Total 0.3 mg/dL (0.0-1.0); Blood Urea Nitrogen 10 mg/dL (9-16); Calcium 9.7 mg/dL (8.4-10.2); Carbon Dioxide 27 mmol/L (22-29); Chloride 106 mmol/L (96-108); Creatinine Clr Calc Pharmacy 108.2; Estimated Glomerular Filt Rate > 60; Glucose Random 101 mg/dL (60-115); Potassium 4.3 mmol/L (3.3-5.1); Sodium 141 mmol/L (135-145); Total Protein 7.6 g/dL (6.5-8.0)
[2024-08-10 20:30] LABS: Influenza A PCR POSITIVE (Negative); Influenza B PCR NEGATIVE (Negative); Resp Syncy Virus RNA Qual PCR NEGATIVE (Negative); SARS COV2 PCR INHOUSE NEGATIVE (Negative)
[2024-08-11 01:55] VITALS: BP 133/79; PULSE 113; RESP 20; TEMP 38.2; O2SAT 96
[2024-08-11] MEDS: Acetaminophen 325 MG TABLET 650 MG PO (01:58)
[2024-08-11 03:27] VITALS: BP 121/69; PULSE 98; RESP 20; TEMP 37.2; O2SAT 98
--- NOTE | 2024-08-11 04:08 | PC.NURSE ---
pt from home, a&ox4, respirations even and unlabored. pt reporting onset of head pressure, cough and shortness of breath x1 week. pt reports he had been at [facility] and people there were sick. pt vss.
[2024-08-11 05:06] VITALS: BP 136/68; PULSE 107; RESP 20; TEMP 37.7; O2SAT 97
[2024-08-11] MEDS: Ketorolac Tromethamine 30 MG/ML VIAL IM (08:00)
[2024-08-11 08:08] LABS: Lithium 0.33 mmol/L (0.60-1.20)
[2024-08-11 08:47] VITALS: BP 113/58; PULSE 97; RESP 14; O2SAT 94
[2024-08-11 10:05] VITALS: BP 113/58; PULSE 97; RESP 14; TEMP 37.7; O2SAT 94
== END 2024-08-11 10:06 | disposition home or self-care (01) ==
PROVIDERS: Registered Nurse Emergency; Emergency Provider Emergency Medicine; PCP Family Medicine
DX: J10.1 Influenza due to other identified influenza virus with other respiratory manifestations (principal); R51.9 Headache, unspecified; M54.2 Cervicalgia; F41.0 Panic disorder [episodic paroxysmal anxiety]; R05.9 Cough, unspecified; R50.9 Fever, unspecified; Z03.818 Encounter for observation for suspected exposure to other biological agents ruled out; Z79.899 Other long term (current) drug therapy
CPT/HCPCS: 0241U; 36415; 71046; 80053; 80178; 85025; 96372; 99284; J1885

== ENCOUNTER → 2024-08-11 06:46 | Outpatient (BNV) | payer OTHER, SELFPAY | PROVIDERS: Emergency Provider Emergency Medicine; PCP Family Medicine; Visit Provider Radiology Diagnostic Radiology | DX: R05.9 Cough, unspecified (principal); J10.1 Influenza due to other identified influenza virus with other respiratory manifestations | CPT/HCPCS: 71046 ==

== ENCOUNTER 2024-08-30 13:00 | Outpatient (AMB) | payer OTHER, SELFPAY ==
--- NOTE | 2024-08-30 13:13 | A.OFFVIS_ITS ---
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 Allergies bupropion [From Wellbutrin] Allergy (Mild, Verified 08/30/24 13:16) CAUSES SWOLLEN HEAD tetracycline [Tetracycline] Allergy (Mild, Verified 08/30/24 13:16) UNKNOWN trifluoperazine [From Stelazine] Allergy (Mild, Verified 08/30/24 13:16) UNKNOWN clozapine [From Clozaril] Adverse Reaction (Mild, Verified 08/30/24 13:16) SEIZURES,NEUTROPENIA Medication List - Last Reconciled 08/30/24 by Annabelle Roberto LPN benztropine 1 mg PO BID haloperidol decanoate 100 mg (2 mL) IM Q14D ibuprofen 400 mg PO Q6H PRN lithium carbonate ER 450 mg PO BID multivitamin (Daily-Ashley tablet) 1 tab PO DAILY naproxen 500 mg PO BID PRN olanzapine 5 mg PO BID HPI Comments Details: Eriberto is very pleasant 59 years old gentleman who presents in my office with complains on pain on the left side of the neck. He reported that the pain started several months ago when he started to experience pain in neck radiating down to the left upper extremity. He went for physical therapy and after physical therapy radiation almost disappeared however pain on the left side of the neck remained. He reports today pain in the neck 4/10. He is able to sleep normally, he can do activities of daily living, he can take care of himself, he can not function normally. He is on permanent disability due to psychiatric problems see below. Movements aggravate his pain heat application makes his pain better. The pain is most severe at night and in the morning and less severe during the daytime. He reports his pain in terms of tissue damage as pinching, cramping, crushing sensation. He had an MRI of the cervical spine results of which dictated as below. Physical therapy as dictated above. He went for orthopedic surgeon with the same complaint, he never received any inj ections. His past medical history significant for schizophrenia and bipolar disorder. He is on multiple psychiatric medications including olanzapine and haloperidol. He is complaining on dizziness and fainting and he had admission in the critical care for hyponatremia secondary to l lithium intake. He denies smoking cigarettes denies drinking alcohol he drinks coffee and caffeinated beverages but he denies recreational drugs. [facility] Medical History Schizoaffective disorder, bipolar type Social History Household Members: Family Household Members Other:: Father , gf. Father in [place] at this time. Housing: Apartment Housing Other:: [facility] Do you presently have visiting nurse or other home services: Yes (Twice a day nurses for medication.) Unable to assess alcohol history related to: Unknown Alcohol intake: unknown Comment: 1:1 sitter Patient Tobacco Use Status: Never used Tobacco e-Cigarette/Vaping Use: Never Used Second Hand Smoke Exposure: No Substance Use Type: Caffiene service: Yes ([employer] Sexual orientation: Straight/Heterosexual Review of Systems Const All systems reviewed & are unremarkable except as noted in HPI and below Neuro Denies Abnormal speech present Physical Exam Vital Signs: Last Vital Signs Pulse 83 08/30/24 13:15 Resp 16 08/30/24 13:15 BP 136/84 08/30/24 13:15 Pulse Ox 97 08/30/24 13:15 Oxygen Delivery Method Room Air 08/30/24 13:15 BMI result Body Mass Index 26.3 Const General: cooperative, comfortable, no acute distress, alert, anxious and tired appearing Nutritional Appearance: average body habitus Orientation/consciousness: patient oriented x3 Limitations: behavioral limitations HEENT Head: Yes normal to inspection Ears: hearing grossly normal bilaterally General nose exam: Normal external nose present Face and sinus: Yes normal facial exam Mouth: Normal oral and palatal mucosa present Throat: Yes posterior oropharynx normal Eyes Pupils: Equal, round and reactive pupils present Neck Other: Flexing forward and flexing backwards both aggravate the pain however flexing backwards aggravate the pain more than flexing forward. Neck: Yes normal visual inspection and No full ROM Chest Chest palpation & inspection: normal inspection of the chest Resp Effort & Inspection: normal respiratory effort Auscultation: clear to auscultation bilaterally Cardio Rate: regular rate Rhythm: regular rhythm Peripheral pulses: Peripheral pulses 2+ throughout GI Inspection: Yes normal to inspection Palpation (GI): Soft to palpation and nontender Auscultation: normal bowel sounds Back/Spine/Pelvis Thoracic/Lumbar Spine: thoracic and lumbar spine normal to inspection Skin General skin exam: no rashes or lesions noted Neuro General: patient oriented x3, moves all extremities, no focal motor deficits and normal sensation to monofilament Cranial nerves: Yes CN's II-XII intact bilaterally, Yes Equal, round and reactive pupils present, Yes Bilaterally intact EOM present, Yes Nystagmus not present, Yes Normal facial strength present and Yes Midline tongue present Cognition (Neuro): normal cognition Speech: No Abnormal speech present Gait exam (Neuro): Normal gait present Motor exam (neuro): 5/5 motor strength present throughout Sensory Exam: double simultaneous stimulation for sensation normal Extrem Other: TTP to left shoulder at the AC joint and left proximal humerus which is worsened with abduction of the extremity. Full active/passive ROM Normal distal sensation Distal joints normal ROM 2+ radial/ulnar pulses General: Yes normal to inspection Psych Appearance: disheveled Speech and movement: Slowed speech present (Psych) and Slowed movement present (Neuro) Affect: Depressed mood present Attitude: cooperative Thought process: Normal thought process present Thought content: Normal thought content present Insight: Fair insight present (Psych) Judgement: Fair judgement present (Psych) Results Reviewed Results Reviewed: MRI cervical spine without contrast Comparison: None Findings: C3-4 transverse osteophyte with mild spinal stenosis. Mild bilateral neural foraminal narrowing. C4-5 facet hypertrophy without canal stenosis. No significant neural foraminal narrowing. C5-6 transverse osteophyte with mild spinal stenosis. Bilateral neural foraminal narrowing. C6-7 transverse osteophyte with minimal spinal stenosis. No significant neural foraminal narrowing. Remaining levels within normal limits. No other canal or neural foraminal narrowing. No acute bony signal abnormalities noted. Posterior bony alignment is normal. Cervical cord normal in course and caliber. No internal cord signal abnormality. Impression: Multilevel mild spinal stenosis and neural foraminal narrowing Assessment & Plan Assessment & Plan (1) Spondylosis of cervical region without myelopathy or radiculopathy: Code(s): M47.812 - Spondylosis without myelopathy or radiculopathy, cervical region Category: Medical Plan Very likely this patient is suffering from spondylosis of the cervical spine. It is supported by the MRI on which other are multiple levels of the facet joints which are enlarged. I offered the patient to go for therapeutic left medial branch block C4, C5, C6. I explained the patient that he needs transportation after the block to bring him home. Patient expressed understanding. I will schedule him for the procedure and I will schedule him in 6 weeks for follow-up after the procedure. Coding Level of Care Code New Pt Level 3 (36904) Diagnoses Spondylosis of cervical region without myelopathy or radiculopathy M47.812
[2024-08-30 13:15] VITALS: BP 136/84; PULSE 83; RESP 16; O2SAT 97; BMI 26.3
--- OUTSIDE RECORDS SUMMARY | 2024-08-30 15:10 | XMS_ITS | Continuity of Care Document ---
Author Organization [facility] ion Address [address] [place] [id number]- Care Team Providers Care Bench Molder Apprentice Name Role Phone Omero Fernandez DO Primary Care Physician Encounter [facility] [id number] Date(s): 06/22/24 - 08/10/[address] [address]- Encounter Diagnosis Primary osteoarthritis, left shoulder(Final) - Strain of unspecified muscle, fascia and tendon at shoulder and upper arm level, left arm, subsequent encounter(Final) - Discharge Disposition: A-D/C Home Attending Physician: Omero Fernandez DO Admitting Physician: Omero Fernandez DO Referring Physician: Omero Fernandez MD Encounter Type: Disch Recurring OP Allergies, Adverse Reactions, Alerts Substance Criticality Severity [...] 08/11/22 Given tetanus-diphtheria toxoids (Td) 06/21/00 Given [id number] 12y+ bivalent booster vax 03/14/22 Recorded SARS-CoV-2 [...] 2Result Comment: [03/13/2015] Susy 3Admin Note: [facility] 4Admin Note: ZEBANTHONY 03-06-2013 FLUVIRIN 5Admin Note: given at [facility] 6Admin Note: VIS given publication 05/08/08 7Admin Note: [facility] 8Admin Note: VIS GIVEN 9Admin Note: GIVEN [facility] 02-18-11 10Admin Note: [facility] Medications Benztropine = 1 mg, 2 times [...] Active Schizoaffective disorder- bipolar type Confirmed Active Cervical spinal stenosis Confirmed Active Neural foraminal stenosis of cervical spine Confirmed Active Tension headache Confirmed Active Social History Social History Type Response Smoking Status Never smoker entered on: 04/18/18 Sex Sex Representation Male (finding) Patient Care team information Care Team Personnel Name: Omero Fernandez DO Position: S Physician - Primary Care Member Role: PCP Address: [address] [place] [id number] Telecom: Care Team Related Persons Name: IVY CALLE Name: STEFANIE LAMAR Name: ANYA LAMAR Insurance Providers Guarantor name: [facility] Plan Information #: 1 Payer: [facility] C[facility] ALLIANCE/ONE CARE Member Number: [id number] Policy Number: NA Group Number: [facility] Plan Information #: 2 Payer: [facility] Member Number: [id number] Policy Number: NA Group Number: NA
--- OUTSIDE RECORDS SUMMARY | 2024-08-30 15:10 | XMS_ITS | Continuity of Care Document ---
Author Organization [facility] Address [address] [place] [id number]- Care Team Providers Care Licensed Nuclear Operator Name Role Phone Omero Fernandez DO Primary Care Physician [phone] Encounter [facility] [facility] Date(s): 07/20/24 - 08/19/[address] [address]- Attending Physician: AdmKaleb cason Admitting Physician: Admtr, Kaleb Referring Physician: Admtr, [id number] Encounter Type: Triage Allergies, Adverse Reactions, Alerts Substance Criticality Severity Reaction Reaction Severity Status penicillin Active Stelazine Active Clozaril Active Wellbutrin Active Immunizations Given and Recorded Vaccine Date Status Refusal Reason influenza virus vaccine, inactivated 03/22/23 Jameson rded influenza virus vaccine, inactivated 03/14/22 Jamseon rded influenza virus vaccine, inactivated 03/13/21 Jameson [...] 08/11/22 Given tetanus-diphtheria toxoids (Td) 06/21/00 Given [id number] 12y+ bivalent booster vax 03/14/22 Recorded SARS-CoV-2 [...] 2Result Comment: [03/13/2015] AfsanehS 3Admin Note: FLUVIRIN ZEBFOWLERKashif 4Admin Note: AFSANEH 03-06-2013 FLUVIRIN 5Admin Note: given at [facility] 6Admin Note: VIS given publication 05/08/08 7Admin Note: afsanehs 8Admin Note: VIS GIVEN 9Admin Note: GIVEN AT [facility] ON 02-18-11 [facility]ations Benztropine = 1 mg, 2 [...] Team Personnel Name: Omero Fernandez DO Position: [facility] Physician - Primary Care Member Role: PCP Address: [address] [place] [phone] Telecom: Care Team Related Persons Name: IVY CALLE Name: STEFANIE LAMAR Name: ANYA LAMAR Insurance Providers Guarantor name: OMERO LAMAR Health Plan Information #: 1 Payer: [facility] [employer] Member Number: NA Policy Number: NA Group Number: NA
== END 2024-08-30 13:36 | disposition home or self-care (01) ==
LOC: HO.PMC 13:00
PROVIDERS: PCP Family Medicine; Referring Provider Orthopaedic Surgery; Visit Provider Anesthesiology
DX: M47.812 Spondylosis without myelopathy or radiculopathy, cervical region (principal)
CPT/HCPCS: 99203

== ENCOUNTER → 2024-08-30 13:00 | Outpatient (BNVA) | payer OTHER, SELFPAY | PROVIDERS: PCP Family Medicine; Referring Provider Orthopaedic Surgery; Visit Provider Anesthesiology | DX: M47.812 Spondylosis without myelopathy or radiculopathy, cervical region (principal) | CPT/HCPCS: 99202 ==